=== PATIENT | female | born 1945 | race Caucasian/White ===

== ENCOUNTER → 2018-04-28 10:15 | Outpatient (CLI) | payer MEDICARE, SELFPAY ==
--- NOTE | 2018-04-28 10:22 | BI_ITS ---
MAMMOGRAPHY - BILATERAL SCREENING REASON FOR EXAM: Female, 72 years old. Routine annual screening examination. PERTINENT HISTORY: Mother with breast cancer. Remote right stereotactic breast biopsy. TECHNIQUE: Digital bilateral breast vivien (3D mammographic acquisition) in the CC and MLO projections. 2-D mediolateral oblique (MLO) and craniocaudad (CC) views of both breasts were obtained. CAD: Full Field Digital Mammography with Computer Added Detection was performed. COMPARISON: Comparison is made with prior study dated September 19, 2017 and February 28, 2016. FINDINGS: Breast Composition: The breasts are almost entirely fatty. There are no dominant masses or suspicious calcifications. Stable scattered calcifications. No focal cluster is seen. A tissue marker is once again seen in the slightly upper lateral portion of the right breast. No other significant abnormalities are identified. There has been no significant change since the prior study. BI/SCREENING MAMM (CAD), BILAT IMPRESSION: Stable bilateral screening mammogram. Yearly follow-up mammogram recommended. (A) ASSESSMENT CATEGORY: BIRADS Category 2: Benign. A letter regarding these results will be sent to the patient by the facility within 30 days. Approximately 10% of breast cancers are not detected by mammography. A normal mammogram should not delay biopsy of a clinically suspicious abnormality. [id number] Electronically Signed: Vince Tello MD at 12:35 EST , Service support ,
== END ==
PROVIDERS: Family Provider Internal Medicine; PCP Internal Medicine; Referring Provider Nurse Practitioner Primary Care; Visit Provider Nurse Practitioner Primary Care
DX: Z12.31 Encounter for screening mammogram for malignant neoplasm of breast (principal); Z80.3 Family history of malignant neoplasm of breast
CPT/HCPCS: 77063; 77067

== ENCOUNTER 2018-08-16 11:02 | Emergency (ER) | payer MEDICARE, SELFPAY ==
[2018-08-16 11:03] VITALS: BP 156/79; PULSE 91; RESP 18; TEMP 36.6; O2SAT 98; BMI 39.6
[2018-08-16 11:26] VITALS: BP 151/123; PULSE 84; RESP 21; O2SAT 94
--- NOTE | 2018-08-16 11:36 | VDUE_ITS ---
Reason For Study: Pain Left Proximal Left jugular vein is spontaneous, widely patent, phasic, with no intraluminal echogenicity noted. Left subclavian vein is spontaneous, widely patent, phasic, with no intraluminal echogenicity noted. Left Arm Left axillary vein is spontaneous, patent, phasic, competent, compressible and demonstrates augmentation. Left brachial vein is compressible. Left cephalic vein is compressible. Left basilic vein is compressible. Left Lower Arm Left radial vein is compressible. Left ulnar vein is compressible. Patient Safety Prelim to Stephen. Interpretation Summary Deep veins of the left upper extremity are patent and compressible segmentally. There is no evidence of deep vein thrombosis. The superficial veins of the left upper extremity, the basilic and cephalic veins, are patent and compressible. There is no evidence of left upper extremity superficial thrombophlebitis involving the veins imaged. Ordering Physician: Audra Mitchell Referring Physician: Yasmeen Heller Performed By: Adrianna Thompson RVT ?
--- NOTE | 2018-08-16 11:37 | EKG12_ITS ---
Test Reason : ARM PAIN Blood Pressure : / mmHG Vent. Rate : 086 BPM Atrial Rate : 086 BPM P-R Int : 172 ms QRS Dur : 058 ms QT Int : 362 ms P-R-T Axes : 042 -08 029 degrees QTc Int : 433 ms Normal sinus rhythm Low voltage QRS Borderline ECG Confirmed by DIONI BALBUENA ([id number]), communications editor KIRAN COLEMAN ([id number]) on 08/18/2018 11:45:14 AM Referred By: RADHA Confirmed By:VAL BALBUENA
--- NOTE | 2018-08-16 11:40 | ED.DCSUM_ITS ---
- ER Visit Summary Date of Service: 08/16/18 Chief Complaint: Left arm pain History of Present Illness: The patient is a 72 F who presents for 5 days of left arm pain. Patient was seen by her primary care doctor today who sent her in for further evaluation. Patient states she had blood drawn 5 days ago. Since then she has been having left upper arm pain that is intermittent. She was concerned when she had 2 episodes of left hand numbness. Both time she was sitting on her couch watching TV and the numbness resolved after she changed positions. Patient denies any fever, shortness of breath, chest pain, abdominal pain, back pain, nausea or vomiting, injury to the left upper extremity or any other complaints other than the arm. The pain is focused along the anterior upper arm without any pain in the shoulder or shoulder blade. She has no cardiac history. Physical Examination: Vital signs: afebrile, hemodynamically stable, no hypoxia on room air General: well nourished, well developed, in no distress Skin: warm, dry, no rash, no pallor HEENT: normocephalic and atraumatic; PERRL, EOMI, moist mucous membranes Cardiovascular: regular rate and rhythm without murmurs, no peripheral edema, 2+ pulses all distal extremities Respiratory: No increased work of breathing, lungs are clear to auscultation bilaterally, no rales, rhonchi or wheezing Abdominal: Abdomen is soft, nontender with normoactive bowel sounds, no guarding or rebound, no masses MSK: Moves all extremities, no deformities, normal strength. Patient has a small contusion on the lateral antecubital fossa consistent with a prior blood draw. Tenderness along the anterior superior upper arm. Full active range of motion of the shoulder without pain. Radial pulses 2+ and symmetric. Distal sensation and motor function intact. Neuro: Awake and alert, oriented ?4. No facial droop, sensation and motor f unction intact and symmetric Test Results: Abnormal Lab Results 08/16/18 08/16/18 08/16/18 11:41 11:41 11:41 WBC 8.4 RBC 4.60 Hgb 13.3 Hct 41.1 MCV 89.3 MCH 28.9 MCHC 32.4 RDW 13.0 RDW Differential 42.1 Plt Count 427 MPV 9.8 Immature Gran % (Auto) 0.500 Neut % (Auto) 67.9 Lymph % (Auto) 23.6 [place] % (Auto) 6.9 Eos % (Auto) 0.7 Baso % (Auto) 0.4 Absolute Neuts (auto) 5.7 Absolute Lymphs (auto) 1.97 Total Counted Not Reportable PT Cancelled INR Cancelled APTT Cancelled Sodium 137 Potassium 4.7 Chloride 104 Carbon Dioxide 27.0 Anion Gap 6 BUN 9 Creatinine 0.71 Estim Creat Clear Calc 40.81 Est GFR (MDRD) Af Amer 105 Est GFR (MDRD) Non-Af 87 BUN/Creatinine Ratio 12.7 Glucose 117 H Calcium 9.4 Troponin I < 0.015 08/16/18 08/16/18 12:00 12:55 WBC RBC Hgb Hct MCV MCH MCHC RDW RDW Differential Plt Count MPV Immature Gran % (Auto) Neut % (Auto) Lymph % (Auto) [place] % (Auto) Eos % (Auto) Baso % (Auto) Absolute Neuts (auto) Absolute Lymphs (auto) Total Counted PT Cancelled 13.3 INR Cancelled 1.0 APTT Cancelled 25.2 Sodium Potassium Chloride Carbon Dioxide Anion Gap BUN Creatinine Estim Creat Clear Calc Est GFR (MDRD) Af Amer Est GFR (MDRD) Non-Af BUN/Creatinine Ratio Glucose Calcium Troponin I Clinical Impression(s) from Imaging Studies Chest X-Ray 08/16/18 12:00 IMPRESSION: Borderline cardiomegaly with low volume inspiration. No acute finding. Electronically Signed: Fritz Grant MD at 12:12 EDT , Service support , Medications Given Discontinued Medications Aspirin (Aspirin, Baby) 324 mg PO X1 STA Stop: 08/16/18 11:38 Last Admin: 08/16/18 11:45 Dose: 324 mg Emergency Department Course and Treatment: Patient's physical exam is most consistent with a soft tissue or musculoskeletal source of patient's left arm pain rather than a cardiac etiology. The pain is reproducible on exam. Patient had an ultrasound performed of the left upper extremity to look for any possible thrombophlebitis or DVT that formed after the blood draw. Ultrasound was negative. EKG showed sinus rhythm without ischemia or ectopy. Troponin negative. Labs otherwise unremarkable. On reevaluation, patient was feeling fine. Her episodes of hand numbness are while she is sitting on the couch watching television, and improves with repositioning of her arm, we discussed that this is likely due to a peripheral nerve compression due to her arm position. If it continues she is to note how she is positioned and see if it continues to improve if she repositions her arm. In my professional opinion patient's arm pain is strictly arm pain and is not referred pain from a cardiovascular radiology. Patient discharged home with return precautions and is to follow-up with her primary care doctor if symptoms persist. Treatment Plan: [] Disposition: [] Impression: Left arm pain status post a blood draw, intermittent peripheral nerve paresthesia of the left upper extremity This note was generated with [employer] dictation software. It may contain incorrect words, spelling, and punctuation that were not noted in review of the chart prior to signing ED Disposition - Plan for ED Patient: Disposition: Home or Assisted Living Instructions: ED Contusion Upper Ext, ED Paraesthesias Referrals: Yasmeen Heller MD [Primary Care Provider] - 3-5 Days if not improving Additional Instructions: You do not have a blood clot in your left arm. Your pain in the left arm is likely related to the blood draw you had 5 days ago. If you have any further numbness in your left hand, please make note of the position your arm is in at the time and change the position to see if the numbness resolves. You can get numbness in the hand if you are placing pressure on the nerves in the upper arm. Use [id number] pain medication as needed for the arm pain. If you have any worsening of your condition or any new concerning symptoms, please return immediately to the emergency department for another evaluation.
[2018-08-16] MEDS: Aspirin 81 MG TAB.CHEW 324 MG PO (11:45)
[2018-08-16 11:50] LABS: Absolute Lymphocyte Count 1.97 X10^3/ul (0.83-4.51); Absolute Neutrophil Count 5.7 X10^3/uL (2.0-7.7); Basophil# 0.03 X10^3/uL; Basophil% 0.4 % (0-1); Eosinophil# 0.06 X10^3/uL; Eosinophils% 0.7 % (0-5); Hematocrit 41.1 % (37-47); Hemoglobin 13.3 g/dl (12.0-15.0); Lymphocyte # 1.97 X10^3/ul (4.0); Lymphocyte % 23.6 % (19-41); Mean Corp Hgb Conc 32.4 g/gl (32-36); Mean Corpuscular Hgb 28.9 pg (27.0-32.0); Mean Corpuscular Volume 89.3 fL (81-99); Mean Platelet Vol. 9.8 fl (6.2-12.0); Monocyte# 0.58 X10^3/uL; Monocyte% 6.9 % (0-10); Neutrophil # 5.67 X10^3/uL (2.7-7.7); Neutrophil % 67.9 % (47-70); POSITIVE COUNT NO; POSITIVE DIFFERENTIAL NO; POSITIVE MORPHOLOGY NO; Platelet Count 427 K/mm3 (150-450); RBC Distribution Width SD 42.1 fl (35.1-43.9); White Blood Count 8.4 K/mm3 (4.4-11.0)
--- NOTE | 2018-08-16 11:52 | NURSING ---
BLUE TOP HEMOIZLED
--- NOTE | 2018-08-16 12:00 | RAD_ITS ---
STUDY: X-RAY CHEST REASON FOR EXAM: Female, 72 years old. Left arm pain. TECHNIQUE: Single frontal view of the chest. COMPARISON: None. FINDINGS: There is low volume inspiration. There is no demonstrated pleural abnormality. There is borderline cardiomegaly. Normal mediastinum and clay. Normal visualized pulmonary arteries. There is atherosclerotic calcification of the aortic arch with tortuosity. Normal visualized thoracic spine. Normal visualized ribs, clavicles, and shoulders. There is no demonstrated abnormality of the visualized soft tissue structures of the upper abdomen. RAD/Chest 1 View (Portable) IMPRESSION: Borderline cardiomegaly with low volume inspiration. No acute finding. Electronically Signed: Fritz Grant MD at 12:12 EDT , Service support ,
[2018-08-16 12:12] LABS: Anion Gap 6 (5-15); BUN 9 mg/dL (7-18); BUN/Creat Ratio 12.7 RATIO (10-20); Calcium,Total 9.4 mg/dL (8.5-10.1); Chloride 104 mmol/L (98-107); Creatinine, Serum 0.71 mg/dL (0.55-1.02); EST Glomerular Filtration Rate 87 mL/min (>60); Est Glom Filt Rate - Afr Amer 105 mL/min (>60); Estimated Creatinine Clearance 40.81 ml/min; Glucose 117 mg/dL (74-106); Potassium 4.7 mmol/L (3.5-5.1); Sodium Level 137 mmol/L (136-145)
[2018-08-16 13:19] VITALS: BP 124/56; PULSE 73; RESP 16; O2SAT 94
[2018-08-16 13:19] LABS: Prothrombin Time (Protime)PT. 13.3 SECONDS (11.7-14.9)
[2018-08-16 13:20] LABS: Partial Thromboplast Time 25.2 Seconds (24.1-36.2)
[2018-08-16 14:54] VITALS: BP 122/64; PULSE 78; RESP 16; O2SAT 100
== END 2018-08-16 15:13 | disposition home or self-care (01) ==
PROVIDERS: Emergency Provider Emergency Medicine; Family Provider Internal Medicine; PCP Internal Medicine
DX: M79.622 Pain in left upper arm (principal); R20.2 Paresthesia of skin; E11.9 Type 2 diabetes mellitus without complications; Z79.84 Long term (current) use of oral hypoglycemic drugs
CPT/HCPCS: 71045; 80048; 84484; 85025; 85610; 85730; 93005; 93971; 99284; A4216

== ENCOUNTER 2019-01-03 12:30 | Outpatient (RCR) | payer MEDICARE, SELFPAY ==
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
--- NOTE | 2019-01-03 13:04 | HP.PTDCSUM_ITS ---
HP - PT D/C Summary It has been my pleasure to treat RAMÓN CANADA under orders from Yasmeen Heller MD, for the diagnosis of ACUTE LEFT SIDED LOW BACK PAIN WITH SCIATICA. for a total of 9 visit(s). Discharge Date: Please see the following information for a summary of their discharge status. - Subjective Subjective: PATIENT REPORTS SHE WOKE UP WITH NO PAIN TODAY AND SHE IS REALLY HAPPY ABOUT THAT. PATIENT REPORTS SHE IS 150% BETTER AND IT IS EXCITING. - Pain LOW BACK Pain Intensity (Out of 10): 0 LLE Pain Intensity (Out of 10): 2 - Overall Improvement % Improvement: 150 - Objective Objective/Function: ALL GOALS MET. PATIENT IS APPROPRIATE FOR D/C WITH F/U W/PHYSICIAN NEEDED. UPON EXAM TODAY: INDEP GAIT INTO PT WITH NO GROSS D EVIATIONS NOTED. INDEP SIT TO STAND WITHOUT UE ASSIST. Motor deficit: KYLE LE STRENGTH 5/5 WITH MMT'ING. Sensory deficit: NO. ROM deficit: NO. Reflexes: NT. Dural Signs: NEGATIVE KYLE LE'S. Lumbar mvmt loss: flex - MIN - NE. ext - MOD - NE. R SG - MOD - MILD LBP. L SG - MIN - NE. Core strength: POOR - Goals Goal 1:: DECREASE C/O LOW BACK AND KYLE LE SX'S. Goal Progress: Goal Met Goal 2:: IMPROVE PERSONAL CARE, LIFTING, WALKING, SITTING, STANDING, SLEEP, SOCIAL LIFE, TRAVEL AND HOMEMAKING [employer] Goal Progress: Goal Met Goal 3:: INSTRUCT IN PROPHYLAXIS Goal Progress: Goal Met - Plan Plan: D/C TO INDEP HEP. PATIENT AGREEABLE. - D/C Information If there are questions or concerns regarding this patient's physical therapy, please feel free to call me at [phone]. Thank you for the referral of this patient. Sincerely, Keisha Frazier, PT, Cert MDT
== END 2019-01-03 19:00 | disposition home or self-care (01) ==
LOC: PT 12:30
PROVIDERS: Family Provider Internal Medicine; PCP Internal Medicine; Referring Provider Internal Medicine; Visit Provider Internal Medicine
DX: M54.40 Lumbago with sciatica, unspecified side (principal)
CPT/HCPCS: 97035; 97110; 97162; 97530

== ENCOUNTER 2019-03-15 06:30 | Inpatient (IN) | payer MEDICARE, SELFPAY ==
[2019-03-15] VITALS (11 sets, daily range): BP systolic 99–120; BP diastolic 52–102; PULSE 74–97; RESP 15–18; TEMP 36.7–36.9; O2SAT 94–98; BMI 88.8; BMI 40.3
--- NOTE | 2019-03-15 06:42 | EKG12_ITS ---
Test Reason : FALL Blood Pressure : / mmHG Vent. Rate : 092 BPM Atrial Rate : 092 BPM P-R Int : 174 ms QRS Dur : 062 ms QT Int : 350 ms P-R-T Axes : 043 -12 018 degrees QTc Int : 432 ms Normal sinus rhythm Low voltage QRS Septal infarct , age undetermined Inferior infarct , age undetermined Abnormal ECG Confirmed by ESHA MURRIETA, DIONI ([id number]), editorial assistant SIERRA FRANCO ([id number]) on 03/16/2019 10:34:55 AM Referred By: SANTA/AMA Confirmed By:VAL BALBUENA MD
--- NOTE | 2019-03-15 06:42 | CT_ITS ---
STUDY: CT BRAIN WITHOUT CONTRAST REASON FOR EXAM: Female, 73 years old. FALL THIS AM -- NO LOC RADIATION DOSAGE (If Supplied By Facility): CTDIvol = ( 44.99 ) mGy, DLP = ( 745.49 ) mGycm TECHNIQUE: Transaxial CT imaging of the brain was performed without administration of intravenous contrast material. Individualized dose optimization techniques were used for this CT. COMPARISON: No relevant priors. FINDINGS: Normal soft tissue structures. Normal calvarium. Normal size ventricles and extra-axial spaces for the patient''s age. There are areas of decreased attenuation within the white matter tracts of the supratentorial brain, consistent with microvascular disease changes. Age-related changes of the basal ganglia. Normal brainstem. 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 There is no intracranial hemorrhage. There are no findings of an acute ischemic infarction. Normal visualized paranasal sinuses. CT/Brain/Head without Contrast IMPRESSION: No fracture or intracranial hemorrhage. Electronically Signed: Rehan Reynaga MD at 7:31 EST Tel , Service support ,
--- NOTE | 2019-03-15 06:43 | RAD_ITS ---
STUDY: X-RAY CHEST REASON FOR EXAM: Female, 73 years old. FALL, S/P SYNCOPE. RT SIDE NECK/SHOULDER PAIN TECHNIQUE: Single AP portable view of the chest. COMPARISON: 08/16/2018 FINDINGS: Possible calcified granuloma versus nodule in the right upper lobe. The lungs are clear and expanded. There is no demonstrated pleural abnormality. There is mild cardiac enlargement. Normal mediastinum and clay. Normal visualized pulmonary arteries. Normal visualized aortic arch and descending thoracic aorta. Normal visualized thoracic spine. Normal visualized ribs, clavicles, and shoulders. There is no demonstrated abnormality of the visualized soft tissue structures of the upper abdomen. RAD/Chest PA and Lateral IMPRESSION: Clear lungs. Cardiomegaly. Questionable right apex pulmonary nodule versus partially calcified granuloma. Nonemergent chest CT recommended to further evaluate. Electronically Signed: Phill Thayer DO at 7:54 EST Tel , Service support ,
--- NOTE | 2019-03-15 06:44 | CT_ITS ---
STUDY: CT CERVICAL SPINE WITHOUT CONTRAST REASON FOR EXAM: Female, 73 years old. FALL THIS AM RADIATION DOSAGE (If Supplied By Facility): CTDIvol = ( 28 ) mGy, DLP = ( 491.05 ) mGycm TECHNIQUE: High resolution transaxial imaging was performed without contrast material. Sagittal and coronal images were reconstructed. Individualized dose optimization techniques were used for this CT. COMPARISON: None FINDINGS: Craniocervical junction is intact. Degenerative changes are present involving the atlantodental articulation. Normal odontoid process. Alignment is within normal limits. Multilevel degenerative disease is present. No acute fractures or dislocations are seen. Carotid calcifications. 2 x 1.5 cm left thyroid nodule. Consider ultrasound follow-up. CT/Spine Cervical without Contras IMPRESSION: No acute osseous injury is evident. 2 x 1.5 cm left thyroid nodule. Consider ultrasound follow-up. Comment: MRI is more sensitive than CT in detecting cord injury, ligament injury, and epidural hematoma. If there is continued clinical concern for any of these entities, MRI correlation should be considered if possible. Electronically Signed: Rehan Reynaga MD at 7:33 EST Tel , Service support ,
[2019-03-15] MEDS: 0.9% Normal Saline 1,000 ML 1000 ML IV (06:59)
[2019-03-15] MEDS: Ketorolac 15 MG/ML Vial IV (06:59)
[2019-03-15] MEDS: Ondansetron 4 MG/2 ML Vial IV (06:59)
[2019-03-15 07:08] LABS: Absolute Lymphocyte Count 1.19 X10^3/uL (0.83-4.51); Absolute Neutrophil Count 15.2 X10^3/uL (2.0-7.7); Basophil# 0.02 X10^3/uL; Basophil% 0.1 % (0-1); Eosinophil# 0.02 X10^3/uL; Eosinophils% 0.1 % (0-5); Hematocrit 42.8 % (37-47); Hemoglobin 13.7 g/dL (12.0-15.0); Lymphocyte # 1.19 X10^3/ul (4.0); Lymphocyte % 6.9 % (19-41); Mean Corpuscular Hgb 28.5 pg (27.0-32.0); Mean Platelet Vol. 9.6 fl (6.2-12.0); Monocyte# 0.81 X10^3/uL; Monocyte% 4.7 % (0-10); NRBC Flagged by Analyzer 0 % (0-5); Neutrophil # 15.22 X10^3/uL (2.7-7.7); Neutrophil % 87.8 % (47-70); Platelet Count 473 K/mm3 (150-450); RBC Distribution Width CV 13.2 % (11.6-14.6); RBC Distribution Width SD 43.5 fl (35.1-43.9); Red Blood Count 4.81 M/mm3 (4.2-5.4); White Blood Count 17.3 K/mm3 (4.4-11.0)
--- NOTE | 2019-03-15 07:22 | ED.DCSUM_ITS ---
History of Present Illness <Patricia Frances - Last Filed: 03/15/19 09:14> Narrative: Patient presenting for evaluation secondary to diarrhea and syncope. Patient reports that over the course of the last 3 days she has been dealing with a diarrheal illness. She reports that she has been having minimal volume loose stools over the course of these couple days that have been occurring approximately every 2 hours. They have been associated with abdominal cramping and nausea but no vomiting. She denies any fevers associated with this. She denies any recent antibiotic exposures or hospital admissions. Patient does report that she was on a [place] cruise over [place], but is been home for over a week that has not had any symptoms until the last 3 days. Tonight the patient had recently gotten up and had a bowel movement was in the bathroom. She was standing at the sink and started to have some abdominal discomfort and started to feel lightheaded and diaphoretic. Patient suffered a syncopal episode where she fell striking the wall hard enough that she put a hole in the drywall. She has a mild amount of pain in her right side of her neck and right shoulder. She denies any preceding chest pain or palpitations. She denies any shortness of breath. Patient does have a history of diabetes and hypertension. Review of systems otherwise negative. <EliseowillemLuan - Last Filed: 03/25/19 16:10> Chief Complaint: Fall Past Medical History <Patricia Frances - Last Filed: 03/15/19 09:14> Past Medical History: - - Diabetes, hypertension Smoking Status: Never smoker <DanielletingLuan - Last Filed: 03/25/19 16:10> - Allergies and Home Meds Allergies/Adverse Reactions: Allergies Penicillins Allergy (Verified 08/16/18 11:06) Rash propoxyphene [From Darvon] Adverse Reaction (Verified 08/16/18 11:06) Nausea/Vom/Diarrhea Review of Systems General: Reports: Malaise Eyes: Denies: Visual changes - bilaterally, Diplopia ENT: Denies: Rhinorrhea, Sore throat Cardiovascular: Reports: - - Syncope Respiratory: Denies: Dyspnea, Cough, Dyspnea on exertion Gastrointestinal: Reports: Abdominal pain, Nausea, Diarrhea. Denies: Vomiting Genitourinary: Denies: Dysuria, Hematuria, Frequency Musculoskeletal: Denies: Back pain, Extremity Pain Skin: Denies: Rash, Wounds Neurological: Denies: Headache, Weakness, Numbness Psych: Denies: Depression Endocrine: Denies: Polyuria Hematologic: Denies: Easy bruising Allergy: Denies: Swelling of the mouth <JeLuan - Last Filed: 03/25/19 16:10> Physical Exam Vital Signs/Narrative: Vital Signs Temp Pulse Resp BP Pulse Ox 03/15/19 06:53 97 15 03/15/19 06:36 96 03/15/19 06:31 98.4 F 91 16 110/102 H 98 <Patricia Frances - Last Filed: 03/15/19 09:14> Vital Signs/Narrative: Vital Signs Temp Pulse Resp BP Pulse Ox 03/15/19 06:53 97 15 03/15/19 06:36 96 03/15/19 06:31 98.4 F 91 16 110/102 H 98 Inital Vital Signs reviewed: Yes General: Well nourished, Well developed, No Acute Distress Head: Normocephalic, Atraumatic, - - No outward signs of trauma Eyes: Perrl, EOMI ENT: Moist mucous membranes, No rhinorrhea Neck: Supple, - - Diffuse neck tenderness with some predominance to the right with no evidence of step-offs Cardiovascular: Regular rate, Regular rhythm, No murmurs, - - 2+ radial pulses bilaterally symmetric Respiratory: No distress, CTA bilaterally, Chest nontender Abdomen: Soft, Nontender, Nondistended, Normal bowel sounds Back: Nontender, Normal Inspection Extremities: Nontender, No edema Skin: Normal color, No rash Neurological: Alert, Oriented x3, Cranial nerves II-XII grossly intact, Normal Strength, Normal Sensation Psychological: Normal affect, Normal Mood <Luan Wooten - Last Filed: 03/25/19 16:10> Diagnostic/Tx/Re-eval Clinical Impression(s) from Imaging Studies Brain CT 03/15/19 06:42 IMPRESSION: No fracture or intracranial hemorrhage. Electronically Signed: Rehan Reynaga MD at 7:31 EST Tel , Service support , Chest X-Ray 03/15/19 06:43 IMPRESSION: Clear lungs. Cardiomegaly. Questionable right apex pulmonary nodule versus partially calcified granuloma. Nonemergent chest CT recommended to further evaluate. Electronically Signed: Phill Thayer DO at 7:54 EST Tel , Service support , Cervical Spine CT 03/15/19 06:44 IMPRESSION: No acute osseous injury is evident. 2 x 1.5 cm left thyroid nodule. Consider ultrasound follow-up. Comment: MRI is more sensitive than CT in detecting cord injury, ligament injury, and epidural hematoma. If there is continued clinical concern for any of these entities, MRI correlation should be considered if possible. Electronically Signed: Rehan Reynaga MD at 7:33 EST Tel , Service support , Abdomen/Pelvis CT 03/15/19 07:52 IMPRESSION: No acute findings. Remaining chronic findings as above Electronically Signed: Phill Thayer DO at 8:46 EST Tel , Service support , Laboratory Data 03/15/19 03/15/19 03/15/19 06:55 06:55 08:39 WBC 17.3 H RBC 4.81 Hgb 13.7 Hct 42.8 MCV 89.0 MCH 28.5 MCHC 32.0 RDW Std Deviation 43.5 RDW Coeff of Landy 13.2 Plt Count 473 H MPV 9.6 Immature Gran % (Auto) 0.400 Neut % (Auto) 87.8 H Lymph % (Auto) 6.9 L [place] % (Auto) 4.7 Eos % (Auto) 0.1 Baso % (Auto) 0.1 Absolute Neuts (auto) 15.2 H Absolute Lymphs (auto) 1.19 Nucleated RBC % 0 Sodium 138 Potassium 4.3 Chloride 105 Carbon Dioxide 23.0 Anion Gap 10 BUN 12 Creatinine 0.91 Estim Creat Clear Calc 44.20 Est GFR (MDRD) Af Amer 78 Est GFR (MDRD) Non-Af 65 BUN/Creatinine Ratio 13.2 Glucose 242 H Calcium 9.4 Total Bilirubin 0.50 AST 20 ALT 22 Alkaline Phosphatase 70 Troponin I < 0.015 Total Protein 6.9 Albumin 3.4 Globulin 3.5 Albumin/Globulin Ratio 1.0 Urine Color Yellow Urine Clarity Sl. Cloudy Urine pH 6.0 Ur Specific [place] 1.010 Urine Protein 15 H Urine Glucose (UA) Normal Urine Ketones Negative Urine Occult Blood Negative Urine Nitrite Negative Urine Bilirubin Negative Urine Urobilinogen Normal Ur Leukocyte Esterase 500 H Urine RBC 0 SEEN Urine WBC 25-50 SEEN Ur Squamous Epith Cells 5-10 SEEN Urine Bacteria 1+ Urine Mucus 0 SEEN - Rhythm Strip Rhythm Strip: Sinus Rhythm Rate: 92 Ectopy: None - EKG Initial EKG Interpretation: Sinus Rhythm, No Acute Injury Pattern - Medical Decision Making Patient signed out to me by Dr. Khan. CT head and neck are normal. CMP is normal as well as troponin. EKG is relatively normal with no ischemic changes. Patient does have a leukocytosis of 17.3. On my reevaluation patient complained of itching of her abdomen and does have an urticarial rash that seems to be centered around the band of her pants. She states that she was having some itching of her hands last night as well. Abdomen is nontender. In light of the leukocytosis I will obtain a CT of the abdomen and pelvis to rule out diverticulitis or other acute intra-abdominal infection that could be causing her diarrhea as well as her leukocytosis. Patient is ordered Benadryl for her rash. Lactate and blood cultures added on. Urinalysis is concerning for infection. Patient does meet marker for sepsis. She started on IV Rocephin. Patient does have improvement of her rash and itching with Benadryl. She is given Tylenol for her aches secondary to the fall. She will be admitted for further evaluation. She is agreeable with this plan. Discussed with Dr. Helton. Patient admitted in stable condition to [facility]. <Patricia Frances - Last Filed: 03/15/19 09:14> - EKG Initial EKG Interpretation: - - Sinus rhythm 92 with some low voltage. Isoelectric ST segments normal T waves. Septal and inferior Q waves are noted. No evidence of acute ischemia or arrhythmia. - Medical Decision Making Patient presented secondary to a syncopal episode in the setting of a diarrheal illness. EKG was obtained which shows no signs of ischemia or arrhythmia. Work-up was obtained including lab work and CT imaging of the head and neck. This is pending at this time will be signed out to the oncoming provider who will follow up on the results and disposition the patient. <Luan Wooten - Last Filed: 03/25/19 16:10> ED Disposition <Patricia Frances - Last Filed: 03/15/19 09:14> <Luan Wooten - Last Filed: 03/25/19 16:10> - Plan for ED Patient: Disposition: Acute Care Hospital [facility] Diagnosis: Syncope, Diarrhea, UTI (urinary tract infection)
[2019-03-15 07:32] LABS: AST(SGOT) 20 U/L (15-37); Alanine Aminotransfer ALT/SGPT 22 U/L (13-56); Albumin, Serum 3.4 g/dL (3.2-5.0); Alkaline Phosphatase 70 U/L (45-117); Anion Gap 10 (5-15); BUN 12 mg/dL (7-18); BUN/Creat Ratio 13.2 RATIO (10-20); Calcium,Total 9.4 mg/dL (8.5-10.1); Chloride 105 mmol/L (98-107); Creatinine, Serum 0.91 mg/dL (0.55-1.02); EST Glomerular Filtration Rate 65 mL/min (>60); Est Glom Filt Rate - Afr Amer 78 mL/min (>60); Globulin 3.5 g/dL (2.2-4.2); Glucose 242 mg/dL (74-106); Potassium 4.3 mmol/L (3.5-5.1); Protein, Total 6.9 g/dL (6.4-8.2); Sodium Level 138 mmol/L (136-145)
--- NOTE | 2019-03-15 07:52 | CT_ITS ---
STUDY: CT ABDOMEN AND PELVIS WITHOUT CONTRAST REASON FOR EXAM: Female, 73 years old. S/P FALL ABD PAIN RADIATION DOSAGE (If Supplied By Facility): CTDIvol = ( 17.07 ) mGy, DLP = ( 1216.08 ) mGycm TECHNIQUE: Transaxial images were obtained from the dome of the diaphragm to the symphysis pubis without oral contrast, and without intravenous contrast. Sagittal and coronal images were reconstructed. Individualized dose optimization techniques were used for this CT. COMPARISON: None. FINDINGS: The visualized lung bases are unremarkable. The visualized portions of the heart are within normal limits. Normal liver. There are surgical clips in the gallbladder fossa consistent with a prior cholecystectomy. Normal spleen. There is diffuse atrophy of the pancreas. Normal bilateral adrenal glands. There is mild cortical atrophy of the right kidney, consistent with chronic medical renal disease. There is mild cortical atrophy of the left kidney, consistent with chronic medical renal disease. There is a small hiatal hernia. Normal small intestine. There are multiple colonic diverticula consistent with diverticulosis. There is non-visualization of the appendix. Normal abdominal aorta. Normal inferior vena cava. Normal retroperitoneum. Normal urinary bladder. There is atrophy of the uterus. Normal abdominal wall. There are diffuse degenerative changes of the visualized lumbar spine. CT/Abdomen/Pelvis W IV Cont ONLY IMPRESSION: No acute findings. Remaining chronic findings as above Electronically Signed: Phill Thayer DO at 8:46 EST Tel , Service support ,
[2019-03-15] MEDS: DiphenhydrAMINE 50 MG/ML Syringe 25 MG IV ×2 (07:59→13:26)
[2019-03-15 08:42] LABS: Mucous, Urine 0 SEEN /hpf (<or=2+); Red Blood Cells-Urine 0 SEEN /hpf (0-5)
[2019-03-15 08:45] LABS: Color, Urine Yellow (Yellow); Glucose, Dipstick Normal (Normal); Ketone-Dipstick Negative (Negative); Leukocyte Esterase-Dipstick 500 /ul (Negative); Nitrite-Dipstick Negative (Negative); Occult Blood-Urine Negative /ul (Negative); Protein-Dipstick 15 mg/dl (Negative); Urine Bilirubin Dipstick Negative (Negative); Urine Clarity Sl. Cloudy (Clear); Urine Urobilinogen Normal (Normal)
[2019-03-15 08:51] LABS: Bacteria 1+ /hpf (None Seen); Squamous Epithelial Cells - UA 5-10 SEEN /hpf (5-10); White Blood Cells 25-50 SEEN /hpf (0-5)
[2019-03-15] MEDS: Acetaminophen 325 MG Tablet 650 MG PO (09:47)
[2019-03-15] MEDS: Ceftriaxone 1 GM/50 ML BAG IV (09:47)
[2019-03-15 09:48] LABS: Lactic Acid 4.2 mmol/L (0.4-1.9)
--- NOTE | 2019-03-15 09:48 | ED.RN ---
lactic 4.[address] lab. dr alvarez aware
[2019-03-15] MEDS: 0.9% Normal Saline 1,000 ML 999 ML IV ×2 (10:30→12:58)
--- NOTE | 2019-03-15 10:38 | PCM.HP.STD ---
Problem List (1) Acute cystitis Status: Suspected (2) Lactic acidosis Status: Acute (3) Acute diarrheal illness Status: Acute (4) Hyperlipidemia Status: Chronic (5) Hypertension Status: Chronic (6) Type 2 diabetes mellitus Status: Chronic (7) Syncope Status: Acute History of Present Illness Date of Admission: 03/15/19 Chief Complaint: Syncope. The patient is a 73 year old F patient with past medical history as mentioned above presented to the emergency room because of syncope and diarrhea. Her illness started 3 days ago with diarrhea, she has been going to the bathroom every couple of hours for diarrhea, watery stool, small amount without blood associated with abdominal cramps and gaseous distention as well as nausea and vomiting and without aggravating or relieving factors. Patient mentioned that she was on a cruise to the [facility] late February. This morning, she became dizzy and lightheaded upon standing and she passed out. She is not sure how long she passed out and when her arrived to see her, she was awake according to him. She denied any chest pain or shortness of breath. She denied fever or chills. Also, patient mentioned that she had rash on the lower part of her abdomen this morning along with itching in both hands. She received Benadryl in the ED and at this time, no more lower abdominal rash and no itching. In the emergency department, she was afebrile, heart rate stable, blood pressure stable, pulse ox was normal on room air. Routine blood work was remarkable for significant leukocytosis, otherwise normal. LFT was normal. EKG revealed normal sinus rhythm, low voltage QRS, no acute acute changes. Troponin was negative. Later, lactic acid was done by the ED physician and it came back high at 4.2. Urinalysis revealed cloudy urine, negative for nitrite, there was 500 leukocyte esterase, 25-50 WBCs and +[address] scan brain showed no acute findings. Chest x-ray showed no acute infiltrate or consolidation. CT scan cervical spine showed no acute fractures or dislocations. CT scan abdomen pelvis showed no acute intra-abdominal pathology. She is being admitted for syncope likely due to vasovagal syncope secondary to volume depletion attributed to acute diarrheal illness which is probably viral in etiology and complicated by lactic acidosis due to tissue hypoperfusion. At this time, I doubt septic shock as patient is looking very stable, afebrile, no tachycardia and blood pressure stable. Past Medical History Past Medical History (Chronic Problems): Chronic Problems Hyperlipidemia (Chronic) Hypertension (Chronic) Type 2 diabetes mellitus (Chronic) Allergies Penicillins Allergy (Verified 08/16/18 11:06) Rash propoxyphene [From Darvon] Adverse Reaction (Verified 08/16/18 11:06) Nausea/Vom/Diarrhea Home Medications: Ambulatory Orders Medication Instructions Recorded Pravastatin Sodium 80 mg PO QHS 08/16/18 Sitagliptin Phosphate [Januvia] 50 mg PO DAILY 08/16/18 metFORMIN (XR) [Glucophage Xr] 500 mg PO BID 08/16/18 Losartan Potassium [Cozaar] 50 mg PO DAILY 03/15/19 Surgical History: cholecystectomy, herniorrhaphy Psychiatric History: No pertinent psych hx [employer] History: No pertinent [employer] history Lives: Spouse/ Significant Other Smoking Status: Never smoker Alcohol: None Drugs: None - *Family History Maternal History Items: No pertinent history Paternal History Items: No pertinent history Review of Systems Constitutional: Reports: Anorexia, Weakness. Denies: Chills, Fever Eyes: Denies: Blurred vision, Double vision, Drainage, Redness HEENT: Denies: Difficulty Hearing, Ear Pain, Eye Pain, Nasal Congestion, Sore Throat Cardiovascular: Reports: Light Headedness. Denies: Chest Pain, Chest Pressure, Edema, Heaviness, Palpitations, Syncope Respiratory: Denies: Cough, Hemoptysis, Pleuritic Pain, Shortness of Breath, Sputum production, Wheezing Gastrointestinal: Reports: Abdominal Pain, Diarrhea, Nausea, Vomiting. Denies: Constipation Genitourinary: Denies: Dysuria, Frequency, Hematuria Musculoskeletal: Denies: Arm Pain, Back Pain, Foot Pain Skin: Denies: Dryness, Rash Neurological: Denies: Balance problems, Blurred vision, Double vision, Change in Speech, Slurred speech, Confusion, Incoordination, Numbness, Tingling Psychiatric: Denies: Anxiety, Depression Endocrine: Denies: Change in Body Habitus, Polydipsia, Polyuria VTE Information - Inpt Only VTE Present on Admission: No VTE Mechan Device Prophylaxis: None VTE Pharm Prophylaxis ordered?: Yes Patient Problems: Active and Suspected Problems Acute cystitis (Suspected) Lactic acidosis (Acute) Acute diarrheal illness (Acute) Syncope (Acute) - Physical Exam Vitals/I&O's: Vital Signs Temp Pulse Resp BP Pulse Ox 98.4 F 87 18 120/61 95 03/15/19 10:20 03/15/19 10:20 03/15/19 10:20 03/15/19 10:20 03/15/19 10:20 Oxygen Delivery Method Room Air Weight: 220 lb 7.396 oz Body Mass Index (BMI) 40.3 Intake and Output for Last 24 Hours 03/13/19 03/14/19 03/15/19 23:59 23:59 23:59 Intake Total 1050 / 1050 Balance 1050 / 1050 General: Alert, Oriented x3, Cooperative, No apparent distress HEENT: Atraumatic, PERRLA, EOMI, Normocephalic Oral: No Gingival or Mucosal Lesions/ Ulcerations, Dry Mucosa Neck: Supple, No JVD, Negative Carotid Bruits, Trachea Midline, Thyroid Normal Size and Texture Lungs: Clear to auscultation, Normal air movement, No rhonchi, No wheeze, No rales, Diminished Cardiovascular: Regular rate, Regular Rhythm, Normal S1, Normal S2, PMI Normal Abdomen: Bowel Sounds Present, Soft, Non Tender, Non-Distended, No Hepato-splenomegaly, Obese Extremities: No clubbing, No cyanosis, No edema Skin: No rashes, No breakdown Lymphatic: No Cervical, Supraclavicular, or Inguinal Adenopathy Neurological: Cranial nerves II-XII grossly intact, Motor Exam 5/5 strength throughout Psych/Mental Status: Normal Affect, Appropriate, Alert and oriented to time, place, person, mood and affect Laboratory Results 03/15/19 06:55: WBC 17.3 H, RBC 4.81, Hgb 13.7, Hct 42.8, MCV 89.0, MCH 28.5, MCHC 32.0, RDW Std Deviation 43.5, RDW Coeff of Landy 13.2, Plt Count 473 H, MPV 9.6, Immature Gran % (Auto) 0.400, Neut % (Auto) 87.8 H, Lymph % (Auto) 6.9 L, [place] % (Auto) 4.7, Eos % (Auto) 0.1, Baso % (Auto) 0.1, Absolute Neuts (auto) 15.2 H, Absolute Lymphs (auto) 1.19, Nucleated RBC % 0 03/15/19 06:55: Sodium 138, Potassium 4.3, Chloride 105, Carbon Dioxide 23.0, Anion Gap 10, BUN 12, Creatinine 0.91, Estim Creat Clear Calc 44.20, Est GFR (MDRD) Af Amer 78, Est GFR (MDRD) Non-Af 65, BUN/Creatinine Ratio 13.2, Glucose 242 H, Calcium 9.4, Total Bilirubin 0.50, AST 20, ALT 22, Alkaline Phosphatase 70, Troponin I < 0.015, Total Protein 6.9, Albumin 3.4, Globulin 3.5, Albumin/Globulin Ratio 1.0 03/15/19 08:39: Urine Color Yellow, Urine Clarity Sl. Cloudy, Urine pH 6.0, Ur Specific [place] 1.010, Urine Protein 15 H, Urine Glucose (UA) Normal, Urine Ketones Negative, Urine Occult Blood Negative, Urine Nitrite Negative, Urine Bilirubin Negative, Urine Urobilinogen Normal, Ur Leukocyte Esterase 500 H, Urine RBC 0 SEEN, Urine WBC 25-50 SEEN, Ur Squamous Epith Cells 5-10 SEEN, Urine Bacteria 1+, Urine Mucus 0 SEEN 03/15/19 09:17: Lactic Acid 4.2 H* Clinical Impression(s) from Imaging Studies Brain CT 03/15/19 06:42 IMPRESSION: No fracture or intracranial hemorrhage. Electronically Signed: Rehan Reynaga MD at 7:31 EST Tel , Service support , Chest X-Ray 03/15/19 06:43 IMPRESSION: Clear lungs. Cardiomegaly. Questionable right apex pulmonary nodule versus partially calcified granuloma. Nonemergent chest CT recommended to further evaluate. Electronically Signed: Phill Thayer DO at 7:54 EST Tel , Service support , Cervical Spine CT 03/15/19 06:44 IMPRESSION: No acute osseous injury is evident. 2 x 1.5 cm left thyroid nodule. Consider ultrasound follow-up. Comment: MRI is more sensitive than CT in detecting cord injury, ligament injury, and epidural hematoma. If there is continued clinical concern for any of these entities, MRI correlation should be considered if possible. Electronically Signed: Rehan Reynaga MD at 7:33 EST Tel , Service support , Abdomen/Pelvis CT 03/15/19 07:52 IMPRESSION: No acute findings. Remaining chronic findings as above Electronically Signed: Phill Thaeyr DO at 8:46 EST Tel , Service support , Current Medications Acetaminophen (Tylenol) 650 mg PO Q6H PRN PRN PRN Reason: Pain Score 1-3/Temp > 100.7 F Enoxaparin Sodium (Lovenox) 40 mg SC DAILY TITO Glucagon () 1 mg IM .X1 PRN PRN Reason: Hypoglycemia Sodium Chloride () 1,000 mls @ 999 mls/hr IV .Q1H1M TITO Stop: 03/15/19 12:23 Last Admin: 03/15/19 10:30 Dose: 999 mls/hr Documented by: Sodium Chloride () 1,000 mls @ 100 mls/hr IV .Q10H TITO Ceftriaxone Sodium (Rocephin) 1 gm in 50 mls @ 100 mls/hr IV Q24 TITO Dextrose (Dextrose 10%-Water) 250 mls @ 999 mls/hr IV .Q16M PRN; Protocol PRN Reason: HYPOGLYCEMIA Insulin Human Lispro (Humalog Kwikpen (Bkc)) 0 unit SC ACHS TITO; Protocol Linagliptin (Tradjenta) 5 mg PO DAILY TITO Losartan Potassium (Cozaar) 50 mg PO DAILY TITO Ondansetron HCl (Zofran) 4 mg IV Q8H PRN PRN PRN Reason: NAUSEA/VOMITING Pravastatin Sodium (Pravachol) 80 mg PO QHS TITO Assessment/Plan All Active Problems Lactic acidosis (Acute) Acute diarrheal illness (Acute) Syncope (Acute) This is a 73 years old female patient presented to the emergency room because of syncope with 3 days history of diarrhea, nausea and vomiting and she was found to have significant leukocytosis with lactic acidosis will have findings consistent with probable acute cystitis and she is being admitted for treatment. #1 acute diarrheal illness: Patient was on a cruise late February. This is probably due to viral gastroenteritis/food poisoning. She does have leukocytosis with elevated lactic acid. She is afebrile, no tachycardia, blood pressure stable. Imaging studies including chest x-ray, CT scan abdomen and CT cervical spine were unremarkable. Plan: Admit to [facility] floor, IV fluids as below, blood culture, urine culture, stool for enteric pathogens, stool for C. difficile, replace electrolytes as appropriate, repeat CBC and BMP tomorrow morning, PT OT evaluation and treatment. #2 lactic acidosis: This is probably due to severe dehydration and tissue hypoperfusion. I doubt septic shock. There was no strong evidence of acute cystitis, patient is afebrile, no tachycardia, blood pressure stable. Plan: Bolus of IV fluid 3 L, blood culture, urine culture, repeat lactic acid in 3 hours. #3 probable acute cystitis: Again, no strong evidence of acute cystitis on urinalysis. Plan: Urine culture, start IV Rocephin. #4 syncope: Probably due to vasovagal syncope due to severe dehydration. At this time, blood pressure stable, no tachycardia. EKG was unremarkable. Plan as above. #5 type 2 diabetes mellitus: ADA diet, Accu-Cheks, insulin sliding scale, continue Januvia, hold metformin. #6 hypertension: Blood pressure stable, continue losartan. #7 hyperlipidemia: Continue statins. #8 DVT prophylaxis: Subcu Lovenox. This note was generated with [employer] dictation software. It may contain incorrect words, spelling, and punctuation that were not noted in checking the note before signing. Code Visit Inpatient E&M: 14893 Init Hosp L3
[2019-03-15 12:11] LABS: Bedside Glucose 120 mg/dL (70-110)
--- NOTE | 2019-03-15 13:16 | NURSING ---
in to check on pt, pt sitting on side of bed. denies all dizziness. reports itching and rash. note shift-assessment. pt refused benadryl. had charge nurse come look at rash as well whom also notified dr. knowles, pt instructed to let this nurse know if changes mind on benadryl.
[2019-03-15 13:21] LABS: Reflex Lactate? Y
[2019-03-15] MEDS: 0.9% Saline Lock 10 ML Syringe IV (13:26)
[2019-03-15] MEDS: 0.9% Normal Saline 1,000 ML 100 ML IV (14:24)
[2019-03-15 14:35] LABS: Lactic Acid 3.4 mmol/L (0.4-1.9)
[2019-03-15 17:05] LABS: Bedside Glucose 103 mg/dL (70-110)
[2019-03-15] MEDS: Pravastatin 80 MG Tablet PO (21:46)
[2019-03-15 22:00] LABS: Bedside Glucose 122 mg/dL (70-110)
[2019-03-16] MEDS: 0.9% Normal Saline 1,000 ML 100 ML IV (00:31)
[2019-03-16 03:58] VITALS: PULSE 71
[2019-03-16 05:13] LABS: Absolute Lymphocyte Count 2.32 X10^3/uL (0.83-4.51); Absolute Neutrophil Count 4.2 X10^3/uL (2.0-7.7); Basophil# 0.02 X10^3/uL; Basophil% 0.3 % (0-1); Eosinophil# 0.25 X10^3/uL; Eosinophils% 3.4 % (0-5); Hematocrit 35.7 % (37-47); Hemoglobin 10.8 g/dL (12.0-15.0); Lymphocyte # 2.32 X10^3/ul (4.0); Mean Corp Hgb Conc 30.3 g/dL (32-36); Mean Corpuscular Hgb 28.2 pg (27.0-32.0); Mean Corpuscular Volume 93.2 fL (81-99); Mean Platelet Vol. 9.7 fl (6.2-12.0); Monocyte# 0.48 X10^3/uL; Monocyte% 6.6 % (0-10); NRBC Flagged by Analyzer 0 % (0-5); Neutrophil # 4.16 X10^3/uL (2.7-7.7); Neutrophil % 57.3 % (47-70); Platelet Count 356 K/mm3 (150-450); RBC Distribution Width CV 13.9 % (11.6-14.6); RBC Distribution Width SD 47.2 fl (35.1-43.9); Red Blood Count 3.83 M/mm3 (4.2-5.4); White Blood Count 7.3 K/mm3 (4.4-11.0)
[2019-03-16 05:42] LABS: Anion Gap 6 (5-15); BUN 6 mg/dL (7-18); BUN/Creat Ratio 10.3 RATIO (10-20); Calcium,Total 8.1 mg/dL (8.5-10.1); Chloride 111 mmol/L (98-107); Creatinine, Serum 0.58 mg/dL (0.55-1.02); EST Glomerular Filtration Rate 108 mL/min (>60); Est Glom Filt Rate - Afr Amer 131 mL/min (>60); Estimated Creatinine Clearance 40.22 ml/min; Glucose 132 mg/dL (74-106); Potassium 3.9 mmol/L (3.5-5.1); Sodium Level 142 mmol/L (136-145)
[2019-03-16 05:52] VITALS: BP 102/45; PULSE 78; RESP 16; TEMP 37; O2SAT 94
[2019-03-16 06:40] LABS: Bedside Glucose 143 mg/dL (70-110)
[2019-03-16 07:01] VITALS: PULSE 74
[2019-03-16 07:29] VITALS: O2SAT 94
[2019-03-16 09:51] VITALS: BP 103/52; PULSE 73; RESP 18; TEMP 36.7; O2SAT 96
[2019-03-16] MEDS: Ceftriaxone 1 GM/50 ML BAG IV (09:54)
[2019-03-16] MEDS: Enoxaparin 40 MG/0.4 ML Syringe SC (09:55)
[2019-03-16] MEDS: LINAGLIPTIN 5 MG TABLET PO (09:55)
[2019-03-16] MEDS: Losartan Potassium 50 MG Tablet PO (09:55)
--- NOTE | 2019-03-16 10:24 | DCINST_ITS ---
- Discharge Diagnoses Current Active Problems: Current Active and Chronic Problems Lactic acidosis (Acute) Acute diarrheal illness (Acute) Hyperlipidemia (Chronic) Hypertension (Chronic) Type 2 diabetes mellitus (Chronic) Syncope (Acute) You will use the following diet at home:: Calorie/Carbohydrate Controlled (specify 1200, 1400, etc) - 2000 ade., Cardiac Your food should be the consistency of: Regular Discharge Activity: Return to Normal Activity Weight Bearing Status: Weight bearing as tolerated Call your doctor if you observe: Fever of 101 or Higher, Shortness of breath, Dizziness, Fainting spells, Chest pain, Increased palpitations (irregular heartbeat), Uncontrolled pain Instructions: Preventing Food Poisoning Allergies/Adverse Reactions: Allergies Penicillins Allergy (Verified 08/16/18 11:06) Rash propoxyphene [From Darvon] Adverse Reaction (Verified 08/16/18 11:06) Nausea/Vom/Diarrhea Medications to take at Discharge Pravastatin Sodium 80 mg PO QHS 08/16/18 Sitagliptin Phosphate [Januvia] 50 mg PO DAILY 08/16/18 metFORMIN (XR) [Glucophage Xr] 500 mg PO BID 08/16/18 Losartan Potassium [Cozaar] 50 mg PO DAILY 03/15/19 Ciprofloxacin [Cipro] 500 mg PO BID #10 tab 03/16/19 The following prescriptions were given: Ciprofloxacin [Cipro] 500 mg PO BID #10 tab Transmission Status: Pending to [id number] Primary Care Physician: Yasmeen Heller MD [Primary Care Provider] - Please follow up with your Primary Care Physician in: 1-2 weeks. Test Results: Test results from this visit will be discussed in further detail at your follow- up appointment, if applicable.
--- NOTE | 2019-03-16 11:05 | CASEMGMT ---
RN CM Assessment Presentation: UTI, syncope Intro role of CM and purpose of RN CM assessment to pt's . Pt is in bathroom changing to go home. Demographics, PCP and Pharmacy verified. Per , pt is independent, no care needs. Plans to return home and is able to assist. PCP: Dr. Heller Specialists: none Preferred Pharmacy: [place], [place] Insurance: [facility] Prescription Benefit: yes LNOK: Living Arrangements: Lives independently Transportation: drives DME: none HHC/SNF: none SW Referral: no Patient DC goals: Home DC PLAN: Home today.
--- NOTE | 2019-03-16 12:11 | PCM.DC.SUM ---
Discharge Date and Diagnosis Date of Admission: 03/15/19 Date of Discharge: 03/16/19 - Primary Discharge Diagnosis #1 acute viral gastroenteritis. #2 vasovagal syncope. #3 probable acute cystitis. #4 lactic acidosis, attributed to dehydration and tissue hypoperfusion, no evidence of septic shock. - Secondary Discharge Diagnosis Chronic Problems Hyperlipidemia (Chronic) Hypertension (Chronic) Type 2 diabetes mellitus (Chronic) Hospital Course and Treatment Imaging Results: Clinical Impression(s) from Imaging Studies Brain CT 03/15/19 06:42 IMPRESSION: No fracture or intracranial hemorrhage. Electronically Signed: Rehan Reynaga MD at 7:31 EST Tel , Service support , Chest X-Ray 03/15/19 06:43 IMPRESSION: Clear lungs. Cardiomegaly. Questionable right apex pulmonary nodule versus partially calcified granuloma. Nonemergent chest CT recommended to further evaluate. Electronically Signed: Phill Thayer DO at 7:54 EST Tel , Service support , Cervical Spine CT 03/15/19 06:44 IMPRESSION: No acute osseous injury is evident. 2 x 1.5 cm left thyroid nodule. Consider ultrasound follow-up. Comment: MRI is more sensitive than CT in detecting cord injury, ligament injury, and epidural hematoma. If there is continued clinical concern for any of these entities, MRI correlation should be considered if possible. Electronically Signed: Rehan Reynaga MD at 7:33 EST Tel , Service support , Abdomen/Pelvis CT 03/15/19 07:52 IMPRESSION: No acute findings. Remaining chronic findings as above Electronically Signed: Phill Thayer DO at 8:46 EST Tel , Service support , Operations: None Procedures: None Summary of Care Provided: Patient seen and examined on the day of discharge and appeared to be stable to be discharged home. She has no more diarrhea, no nausea or vomiting. Denies dizziness or lightheadedness. Denies fever or chills. Her vital signs are stable. The patient is a 73 year old F patient presented to the emergency room because of syncope with 3 days history of diarrhea, nausea and vomiting in the setting of a recent cruise to the [facility] and she was found to have viral gastroenteritis, lactic acidosis and probable acute cystitis. Her lactic acid on admission was 4.2 which is attributed to dehydration and poor tissue hypoperfusion. There was no evidence of septic shock. Patient was treated with IV fluids and her lactic acid came down to 3.4. Leukocytosis resolved and patient remained afebrile. Patient had lower abdominal and back skin rash which is attributed to the viral syndrome. She was treated with IV Rocephin for probable acute cystitis. Stool for C. difficile was negative. Stool for enteric pathogens were negative. At the time of discharge, blood and urine cultures were pending. Patient discharged home in a stable medical condition, discharged on ciprofloxacin 500 mg p.o. twice daily for 5 days for UTI, instructed to hydrate herself if she started having diarrhea again, continued on her previous home medications without any changes, recommended from with PCP in 1 to 2 weeks. - Physical Exam Vitals/I&O's: Vital Signs Temp Pulse Resp BP Pulse Ox 98.1 F 73 18 103/52 L 96 03/16/19 09:51 03/16/19 09:51 03/16/19 09:51 03/16/19 09:51 03/16/19 09:51 Oxygen Delivery Method Room Air Weight: 220 lb 7.396 oz Body Mass Index (BMI) 40.3 Intake and Output for Last 24 Hours 03/14/19 03/15/19 03/16/19 23:59 23:59 23:59 Intake Total 3500 / 4300 3050 / 3050 Output Total 300 / 300 300 / 300 Balance 3200 / 4000 2750 / 2750 General: Alert, Oriented x3, Cooperative, No apparent distress HEENT: Atraumatic, PERRLA, EOMI, Normocephalic Oral: Moist Mucosa, No Gingival or Mucosal Lesions/ Ulcerations Neck: Supple, No JVD, Negative Carotid Bruits, Trachea Midline, Thyroid Normal Size and Texture Lungs: Clear to auscultation, Normal air movement, No rhonchi, No wheeze, No rales Cardiovascular: Regular rate, Regular Rhythm, Normal S1, Normal S2, PMI Normal Abdomen: Bowel Sounds Present, Soft, Non Tender, Non-Distended, No Hepato-splenomegaly Extremities: No clubbing, No cyanosis, No edema Skin: No rashes, No breakdown Lymphatic: No Cervical, Supraclavicular, or Inguinal Adenopathy Neurological: Cranial nerves II-XII grossly intact, Neuro grossly intact Psych/Mental Status: Normal Affect, Appropriate Microbiology Past 72 Hours 03/15/19 14:38 Stool Enteric Bacteriology - Final 03/15/19 14:43 Stool C. difficile DNA Amplification - Final Laboratory Results 03/15/19 11:23: POC Glucose 120 H 03/15/19 13:56: Lactic Acid 3.4 H* 03/15/19 16:53: POC Glucose 103 03/15/19 21:41: POC Glucose 122 H 03/16/19 04:56: WBC 7.3, RBC 3.83 L, Hgb 10.8 L, Hct 35.7 L, MCV 93.2, MCH 28.2, MCHC 30.3 L, RDW Std Deviation 47.2 H, RDW Coeff of Landy 13.9, Plt Count 356, MPV 9.7, Immature Gran % (Auto) 0.400, Neut % (Auto) 57.3, Lymph % (Auto) 32.0, [place] % (Auto) 6.6, Eos % (Auto) 3.4, Baso % (Auto) 0.3, Absolute Neuts (auto) 4.2, Absolute Lymphs (auto) 2.32, Nucleated RBC % 0 03/16/19 04:56: Sodium 142, Potassium 3.9, Chloride 111 H, Carbon Dioxide 25.0, Anion Gap 6, BUN 6 L, Creatinine 0.58, Estim Creat Clear Calc 40.22, Est GFR (MDRD) Af Amer 131, Est GFR (MDRD) Non-Af 108, BUN/Creatinine Ratio 10.3, Glucose 132 H, Calcium 8.1 L 03/16/19 06:32: POC Glucose 143 H Discharge Activity: Return to Normal Activity Weight Bearing Status: Weight bearing as tolerated Call your doctor if you observe: Fever of 101 or Higher, Shortness of breath, Dizziness, Fainting spells, Chest pain, Increased palpitations (irregular heartbeat), Uncontrolled pain Home Medications: Medications to take at Discharge Pravastatin Sodium 80 mg PO QHS 08/16/18 Sitagliptin Phosphate [Januvia] 50 mg PO DAILY 08/16/18 metFORMIN (XR) [Glucophage Xr] 500 mg PO BID 08/16/18 Losartan Potassium [Cozaar] 50 mg PO DAILY 03/15/19 Ciprofloxacin [Cipro] 500 mg PO BID #10 tab 03/16/19 Following Prescrptions Were Given to Patient: Ciprofloxacin [Cipro] 500 mg PO BID #10 tab Transmission Status: Received by [id number] Primary Care Physician: Yasmeen Heller MD [Primary Care Provider] - Please follow up with your Primary Care Physician in: 1-2 weeks. Patient Instructions: Preventing Food Poisoning Disposition: Home Minutes spent on discharge:: 27 Patient Condition:: Stable Medical Necessity - Tobacco Use Smoking Status: Never smoker Meaningful Use Info Meaningful Use Diagnoses (Choose all that apply): None applicable Code Visit Inpatient E&M: 21756 Disch Hosp
== END 2019-03-16 11:28 | disposition home or self-care (01) | DRG 392 ==
LOC: ED 09:16 → MS3 15:39
PROVIDERS: Emergency Medicine; Admitting Provider Hospitalist; Emergency Provider Emergency Medicine; Family Provider Internal Medicine; PCP Internal Medicine; Visit Provider Hospitalist
DX: A08.4 Viral intestinal infection, unspecified (principal); E87.2 Acidosis; N30.00 Acute cystitis without hematuria; R55 Syncope and collapse; E78.5 Hyperlipidemia, unspecified; I10 Essential (primary) hypertension; Z79.84 Long term (current) use of oral hypoglycemic drugs; E11.9 Type 2 diabetes mellitus without complications
CPT/HCPCS: 36415; 70450; 71046; 72125; 74177; 80048; 80053; 81001; 82962; 83605; 84484; 85025; 87040; 87086; 87088; 87493; 87506; 93005; 99251; 99285; J7030; Q9967; A4216; G0463; J2405

== ENCOUNTER → 2019-12-15 15:50 | Outpatient (CLI) | payer MEDICARE, SELFPAY ==
[2019-03-15 10:02] VITALS: BMI 40.3
--- NOTE | 2019-12-15 15:53 | BI_ITS ---
MAMMOGRAPHY - BILATERAL SCREENING REASON FOR EXAM: Female, 74 years old. Routine annual screening examination. PERTINENT HISTORY: Mother with breast cancer. Remote right stereotactic breast biopsy. TECHNIQUE: Digital bilateral breast bonifacio (3D mammographic acquisition) in the CC and MLO projections. 2-D mediolateral oblique (MLO) and craniocaudad (CC) views of both breasts were obtained. CAD: Full Field Digital Mammography with Computer Added Detection was performed. COMPARISON: Comparison is made with prior study dated 04/28/2018 and 03/22/2017. FINDINGS: Breast Composition: The breasts are almost entirely fatty. There are no dominant masses or suspicious calcifications. Stable scattered calcifications in both breasts. No focal cluster is seen. A tissue clip marker is once again seen in the slightly upper lateral portion of the right breast. No other significant abnormalities are identified. There has been no significant change since the prior study. BI/SCREEN MAMM (CAD) W/BONIFACIO BILAT IMPRESSION: Stable bilateral screening mammogram. Yearly follow-up mammogram recommended. (A) ASSESSMENT CATEGORY: BIRADS Category 2: Benign. A letter regarding these results will be sent to the patient by the facility within 30 days. Approximately 10% of breast cancers are not detected by mammography. A normal mammogram should not delay biopsy of a clinically suspicious abnormality. [id number] Electronically Signed: Vince Tello, at 15:12 EDT , Service support ,
== END ==
PROVIDERS: PCP Internal Medicine; Referring Provider Internal Medicine; Visit Provider Internal Medicine
DX: Z12.31 Encounter for screening mammogram for malignant neoplasm of breast (principal)
CPT/HCPCS: 77063; 77067

== ENCOUNTER 2020-02-06 18:43 | Inpatient (IN) | payer MEDICARE, SELFPAY ==
[2019-03-15 10:02] VITALS: BMI 40.3
[2020-02-06] VITALS (11 sets, daily range): BP systolic 126–151; BP diastolic 47–126; PULSE 81–94; RESP 15–20; TEMP 36–37.6; O2SAT 88–99; BMI 32.9; BMI 41.4; BMI 40.4
--- NOTE | 2020-02-06 18:51 | ED.RN ---
THIS RN WHEELED PT BACK TO ROOM ONE AND PLACED IN BED. CHARGE NURSE SOFIYA, AND DR. REARDON NOTIFIED OF PT SX AT 1850.
--- NOTE | 2020-02-06 18:59 | CT_ITS ---
STUDY: CT HEAD STROKE PROTOCOL W/O CONTRAST INJECTION REASON FOR EXAM: Female, 74 years old. Left-sided vision loss since 6:00 AM. History of diabetes and hypertension. CVA. RADIATION DOSAGE (If Supplied By Facility): CTDIvol = ( 44.99 ) mGy, DLP = ( 745.49 ) mGycm TECHNIQUE: Transaxial CT imaging of the brain was performed without administration of intravenous contrast material. Individualized dose optimization techniques were used for this CT. COMPARISON: 03/15/2019. FINDINGS: Normal soft tissue structures. Normal calvarium. Normal size ventricles and extra-axial spaces for the patient''s age. Normal white matter tracts of the cerebral hemispheres. Normal basal ganglia and thalami. Normal brainstem. Normal cerebellum. There is no intracranial hemorrhage. There are no findings of an acute ischemic infarction. Normal visualized paranasal sinuses. ASPECT score: 10 CT/STROKE Brain/Head without Cont IMPRESSION: No acute intracranial or calvarial abnormality. There is no major interval change. N.B. : The above information has been verbally conveyed by William Lopez DO to Amol Razo MD, on 02/06/2020 19:14:45 (ET). Electronically Signed: William Lopez DO at 19:16 EST Tel [phone], Service support ,
--- NOTE | 2020-02-06 19:00 | ED.DCSUM_ITS ---
History of Present Illness Chief Complaint: Neuro S/Sx Narrative: This patient is a 74-year-old female who presents with chief complaint of I cannot see. This actually has been since 6 AM this morning. She woke up with visual changes. Initially she stated that she cannot see anything motion shapes or color. However she stated that she looked directly at her who was standing in the room. On further questioning she then admitted that she can make out shapes and was able to see her 's shirt. She also complains of mild intermittent headaches today. No chest pain no difficulty breathing no fever cough. No vomiting. No history of stroke. She has had some mild diarrhea. Currently she has no pain. She denies any numbness tingling or weakness in the extremities. Past Medical History - Allergies and Home Meds Allergies/Adverse Reactions: Allergies Penicillins Allergy (Verified 02/06/20 18:43) Rash propoxyphene [From Darvon] Adverse Reaction (Verified 02/06/20 18:43) Nausea/Vom/Diarrhea Primary Care Physician: Yasmeen Heller MD [Primary Care Provider] - Past Medical History: - - Diabetes, hypertension, hyperlipidemia Surgical History: cholecystectomy, herniorrhaphy Smoking Status: Never smoker - Family History Maternal Family History: Reports: No pertinent history Paternal Family History: Reports: No pertinent history Review of Systems All systems negative except as indicated General: Denies: Fever Eyes: Reports: Visual changes - bilaterally ENT: Denies: Bilateral ear pain Cardiovascular: Denies: Chest pain Respiratory: Denies: Dyspnea Gastrointestinal: Reports: Diarrhea. Denies: Nausea, Vomiting Musculoskeletal: Denies: Myalgias, Arthralgias Skin: Denies: Rash Neurological: Denies: Headache Hematologic: Denies: Easy bruising Allergy: Denies: Uticaria Physical Exam Vital Signs/Narrative: Vital Signs Temp Pulse Resp BP Pulse Ox 02/06/20 18:44 96.8 F L 91 17 151/126 H 99 Inital Vital Signs reviewed: Yes General: Well nourished Head: Normocephalic Eyes: - - Extraocular motion is intact. Patient can make out motion in the right visual pillai. She is unable to see any motion on the left visual pillai ENT: Moist mucous membranes Neck: Supple Cardiovascular: Regular rate, Regular rhythm Respiratory: No distress, CTA bilaterally Abdomen: Soft Skin: Normal color Neurological: Alert, Oriented x3, - - NIH stroke scale is 2 for left visual field cut. However she also complains of nearly diminished vision in the right visual pillai. She does not have facial droop she has normal strength and sensation of the extremities no ataxia no dysarthria or aphasia Psychological: - - Anxious Diagnostic/Tx/Re-eval Impressions Brain CT 02/06/20 18:59 IMPRESSION: No acute intracranial or calvarial abnormality. There is no major interval change. N.B. : The above information has been verbally conveyed by William Lopez DO to Amol Razo MD, on 02/06/2020 19:14:45 (ET). Electronically Signed: William Lopez DO at 19:16 EST Tel [phone], Service support , ADDENDUM: 02/06/20 1923 IMPRESSION: No acute intracranial or calvarial abnormality. There is no major interval change. N.B. : The above information has been verbally conveyed by William Lopez DO to Amol Razo MD, on 02/06/2020 19:14:45 (ET). Electronically Signed: William Lopez DO at 19:16 EST Tel [phone], Service support , Head/Neck CTA 02/06/20 19:00 IMPRESSION: 1. Normal [place] of [place] without evidence of intracranial aneurysm or occlusion. 2. Mild atherosclerotic changes of the bilateral carotid arteries without significant stenosis. 3. Question minimal low attenuation in the right occipital lobe. Electronically Signed: William Lopez DO at 19:39 EST Tel [phone], Service support , Chest X-Ray 02/06/20 19:50 IMPRESSION: Borderline cardiomegaly without acute pulmonary disease or interval change. Electronically Signed: William Lopez DO at 20:08 EST Tel [phone], Service support , 02/06/20 18:59 STROKE Brain/Head without Cont [CT] Stat 02/06/20 19:00 CTA Head AND Neck W/ Contrast [CT] Stat 02/06/20 19:50 Chest 1 View [RAD] Stat Laboratory Results 02/06/20 02/06/20 02/06/20 18:52 19:10 19:10 WBC 11.2 H RBC 4.22 Hgb 12.1 Hct 38.0 MCV 90.0 MCH 28.7 MCHC 31.8 L RDW Std Deviation 41.1 RDW Coeff of Landy 12.6 Plt Count 439 MPV 9.4 Immature Gran % (Auto) 0.400 Neut % (Auto) 80.2 H Lymph % (Auto) 14.4 L Sequoyah % (Auto) 4.6 Eos % (Auto) 0.0 Baso % (Auto) 0.4 Absolute Neuts (auto) 9.0 H Absolute Lymphs (auto) 1.62 Nucleated RBC % 0 PT 13.5 INR 1.1 APTT 26.6 Sodium Potassium Chloride Carbon Dioxide Anion Gap BUN Creatinine Estim Creat Clear Calc Est GFR (MDRD) Af Amer Est GFR (MDRD) Non-Af BUN/Creatinine Ratio Glucose Calcium Troponin I POC Glucose 190 H 02/06/20 19:10 WBC RBC Hgb Hct MCV MCH MCHC RDW Std Deviation RDW Coeff of Landy Plt Count MPV Immature Gran % (Auto) Neut % (Auto) Lymph % (Auto) [place] % (Auto) Eos % (Auto) Baso % (Auto) Absolute Neuts (auto) Absolute Lymphs (auto) Nucleated RBC % PT INR APTT Sodium 135 L Potassium 4.1 Chloride 102 Carbon Dioxide 27.0 Anion Gap 6 BUN 6 L Creatinine 0.70 Estim Creat Clear Calc 37.81 Est GFR (MDRD) Af Amer 106 Est GFR (MDRD) Non-Af 88 BUN/Creatinine Ratio 8.6 L Glucose 182 H Calcium 9.3 Troponin I 0.137 H POC Glucose - Medical Decision Making EKG shows normal sinus rhythm at a rate of 87 with no acute ischemic changes. A stroke team was activated. CT of the head showed no acute infarct. Patient was evaluated by neurology. They agree the patient is not a candidate for TPA. CTA shows no large vessel occlusion does show questionable low-attenuation in the right occipital lobe. This could potentially explain left visual symptoms although she has bilateral visual symptoms. Her labs are notable for an indeterminate troponin of 0.13. She has no chest pain. She has no shortness of breath. She has no ischemic EKG changes. Patient was discussed with the hospitalist and admitted for further evaluation and management. ED Disposition - Plan for ED Patient: Disposition: [facility] Diagnosis: Stroke, Visual changes, Elevated troponin Referrals: Yasmeen Heller MD [Primary Care Provider] -
--- NOTE | 2020-02-06 19:00 | CT_ITS ---
STUDY: CTA HEAD AND NECK WITH CONTRAST REASON FOR EXAM: Female, 74 years old. Left-sided vision loss since 6:00 AM. RADIATION DOSAGE (If Supplied By Facility): CTDIvol = ( 27.36 ) mGy, DLP = ( 782.31 ) mGycm TECHNIQUE: CT angiography was performed with a multi-detector CT scanner. Data acquisition was obtained from the skull base through the vertex following intravenous administration of IV 100mL Isovue-370. MIP images were reconstructed from the axial data set. Post-processing of the angiographic images was performed, with multiplanar reformation and 3D reconstruction. Individualized dose optimization techniques were used for this CT. COMPARISON: CT of the head, 02/06/2020. FINDINGS: Normal bilateral petrous carotid arteries. There is calcified plaque formation of the right cavernous carotid artery, without a cross-sectional luminal stenosis. There is calcified plaque formation of the left cavernous carotid artery, with a mild stenosis (less than 50%). Normal right A1 segments of the anterior cerebral artery. Normal left A1 segments of the anterior cerebral artery. Normal intact anterior communicating artery (ACOM). Normal bilateral A2 segments of the anterior cerebral arteries. Normal right M1 and M2 segments of the middle cerebral arteries, with a normal M1 bifurcation. Normal left M1 and M2 segments of the middle cerebral arteries, with a normal M1 bifurcation. There is non-visualization of the right posterior communicating artery (PCOM). There is non-visualization of the left posterior communicating artery (PCOM). Normal bilateral vertebral arteries. Normal basilar artery with a normal basilar bifurcation. The visualized bilateral superior cerebellar (SCA) arteries are normal. Normal bilateral P1, P2 and visualized P3 segments of the posterior cerebral arteries. There is no demonstrated aneurysm of the [place] of [place]. Question a minimal low attenuation in the right occipital lobe which may represent an acute infarct. AORTIC ARCH: Minimal atherosclerotic changes of the aortic arch without dissection or aneurysm. Normal origins of the brachiocephalic, left common carotid, and left subclavian arteries. RIGHT CAROTID ARTERIES: Tortuosity of the distal right common carotid artery (CCA which bifurcates posterior to the hypopharynx.). There is minimal calcifications at the carotid bifurcation extending into the carotid bulb. There is no significant stenosis. Normal origin of the right internal carotid (ICA) artery without a hemodynamically significant stenosis. Tortuosity of the visualized cervical portion of the right internal carotid artery. Normal origin of the right external carotid artery (ECA). LEFT CAROTID ARTERIES: Tortuosity of the distal left common carotid artery (CCA) which bifurcates posterior to the hypopharynx.. There is movement minimal calcified plaque in the carotid bulb without significant stenosis. Normal origin of the left internal carotid (ICA) artery without a hemodynamically significant stenosis. Tortuosity of the visualized cervical portion of the left internal carotid artery. Normal origin of the left external carotid artery (ECA). VERTEBRAL ARTERIES: Normal bilateral vertebral arteries. CT/CTA Head AND Neck W/ Contrast IMPRESSION: 1. Normal [place] of [place] without evidence of intracranial aneurysm or occlusion. 2. Mild atherosclerotic changes of the bilateral carotid arteries without significant stenosis. 3. Question minimal low attenuation in the right occipital lobe. Electronically Signed: William Lopez DO at 19:39 EST Tel [phone], Service support ,
[2020-02-06 19:06] LABS: Bedside Glucose 190 mg/dL (70-110)
--- NOTE | 2020-02-06 19:07 | CM.ED ---
Social Work Responding to stroke alert. Patient spouse present. Support provided. Dulce BOSS, TREVOR
[2020-02-06 19:15] LABS: Absolute Lymphocyte Count 1.62 X10^3/uL (0.83-4.51); Basophil# 0.04 X10^3/uL; Basophil% 0.4 % (0-1); Hemoglobin 12.1 g/dL (12.0-15.0); Lymphocyte # 1.62 X10^3/ul (4.0); Lymphocyte % 14.4 % (19-41); Mean Corp Hgb Conc 31.8 g/dL (32-36); Mean Corpuscular Hgb 28.7 pg (27.0-32.0); Mean Platelet Vol. 9.4 fl (6.2-12.0); Monocyte# 0.52 X10^3/uL; Monocyte% 4.6 % (0-10); NRBC Flagged by Analyzer 0 % (0-5); Neutrophil # 9.01 X10^3/uL (2.7-7.7); Neutrophil % 80.2 % (47-70); Platelet Count 439 K/mm3 (150-450); RBC Distribution Width CV 12.6 % (11.6-14.6); RBC Distribution Width SD 41.1 fl (35.1-43.9); Red Blood Count 4.22 M/mm3 (4.2-5.4); White Blood Count 11.2 K/mm3 (4.4-11.0)
[2020-02-06 19:25] LABS: International Normalized Ratio 1.1; Prothrombin Time (Protime)PT. 13.5 SECONDS (11.7-14.9)
[2020-02-06 19:26] LABS: Partial Thromboplast Time 26.6 Seconds (24.1-36.2)
--- NOTE | 2020-02-06 19:26 | EKG12_ITS ---
Test Reason : STROKE Blood Pressure : / mmHG Vent. Rate : 087 BPM Atrial Rate : 087 BPM P-R Int : 188 ms QRS Dur : 072 ms QT Int : 364 ms P-R-T Axes : 046 016 037 degrees QTc Int : 438 ms Normal sinus rhythm Low voltage QRS Septal infarct , age undetermined Abnormal ECG Confirmed by ESHA MURRIETA, DIONI ([id number]), editorial clerk ELIZABETH WADE ([id number]) on 02/07/2020 1:45:46 PM Referred By: Con Hinds Confirmed By:VAL BALBUENA MD
[2020-02-06 19:35] LABS: Anion Gap 6 (5-15); BUN 6 mg/dL (7-18); BUN/Creat Ratio 8.6 RATIO (10-20); Calcium,Total 9.3 mg/dL (8.5-10.1); Chloride 102 mmol/L (98-107); EST Glomerular Filtration Rate 88 mL/min (>60); Est Glom Filt Rate - Afr Amer 106 mL/min (>60); Estimated Creatinine Clearance 37.81 ml/min; Glucose 182 mg/dL (74-106); Potassium 4.1 mmol/L (3.5-5.1); Sodium Level 135 mmol/L (136-145)
[2020-02-06] MEDS: Ondansetron 4 MG/2 ML Vial IV (19:45)
--- NOTE | 2020-02-06 19:50 | RAD_ITS ---
STUDY: X-RAY CHEST REASON FOR EXAM: Female, 74 years old. PT WOKE UP UNABLE TO SEE AT 6 AM. REPORTS HEADACHE AND NAUSEA. GENERALIZED WEAKNESS. DIABETIC TECHNIQUE: Single AP portable view of the chest. COMPARISON: 03/15/2019. FINDINGS: The lungs are clear and expanded. There is a stable nodule in the right lung apex. There is no demonstrated pleural abnormality. There is borderline cardiomegaly. Normal mediastinum and clay. Normal visualized pulmonary arteries. Normal visualized aortic arch and descending thoracic aorta. There are diffuse degenerative changes of the visualized thoracic spine. There is degenerative osteoarthritis of the bilateral shoulders. There is no demonstrated abnormality of the visualized soft tissue structures of the upper abdomen. RAD/Chest 1 View IMPRESSION: Borderline cardiomegaly without acute pulmonary disease or interval change. Electronically Signed: William Lopez DO at 20:08 EST Tel [phone], Service support ,
--- NOTE | 2020-02-06 20:51 | PCM.HP.STD ---
Problem List (1) CVA (cerebral vascular accident) Status: Acute (2) Acute cystitis Status: Suspected (3) Lactic acidosis Status: Inactive (4) Acute diarrheal illness Status: Inactive (5) Hyperlipidemia Status: Chronic (6) Hypertension Status: Chronic (7) Type 2 diabetes mellitus Status: Chronic (8) Syncope Status: Inactive (9) Elevated troponin Status: Acute (10) Stroke Status: Acute (11) Visual changes Status: Acute History of Present Illness Date of Admission: 02/06/20 Chief Complaint: blindness The patient is a 74 year old F with a significant history of hypertension; diabetes mellitus; and hyperlipidemia who presents to the emergency department with blindness that started about 12 hours prior to presentation. Initially patient did not want to come to the hospital but with her prompting patient came to emergency department. Patient's denies any slurry speech; focal weakness; numbness and tingling. Past Medical History Past Medical History (Chronic Problems): Chronic Problems Hyperlipidemia (Chronic) Hypertension (Chronic) Type 2 diabetes mellitus (Chronic) Allergies Penicillins Allergy (Verified 02/06/20 18:43) Rash propoxyphene [From Darvon] Adverse Reaction (Verified 02/06/20 18:43) Nausea/Vom/Diarrhea Home Medications: Ambulatory Orders Medication Instructions Recorded Pravastatin Sodium 80 mg PO QHS 08/16/18 Sitagliptin Phosphate [Januvia] 50 mg PO DAILY 08/16/18 metFORMIN (XR) [Glucophage Xr] 500 mg PO BREAKFAST 08/16/18 Losartan Potassium [Cozaar] 50 mg PO DAILY 03/15/19 metFORMIN (XR) [Glucophage Xr] 1,000 mg PO DINNER 02/06/20 Surgical History: cholecystectomy, herniorrhaphy Psychiatric History: No pertinent psych hx 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 Denies: Chills, Fever, Weight Change HEENT: Denies: Head Aches, Sinus Congestion, Sinus Drainage Cardiovascular: Denies: Chest Pain, Palpitations Respiratory: Denies: Cough, Shortness of breath at rest, Sputum production Gastrointestinal: Reports: Nausea. Denies: Abdominal Pain, Vomiting Genitourinary: Denies: Dysuria Musculoskeletal: Denies: Joint Pain, Joint Tenderness Skin: Denies: Rash, Wounds Neurological: Denies: Numbness, Tingling, Focal weakness Psychiatric: Denies: Anxiety, Depression, Homicidal Ideations, Suicidal Ideations Hematologic/ Lymphatic: Denies: Easy Bruising, Easy Bleeding VTE Information - Inpt Only VTE Present on Admission: No VTE Mechan Device Prophylaxis: None VTE Pharm Prophylaxis ordered?: Yes Patient Problems: Active and Suspected Problems Stroke (Acute) Visual changes (Acute) Elevated troponin (Acute) CVA (cerebral vascular accident) (Acute) Acute cystitis (Suspected) - Physical Exam Vitals/I&O's: Vital Signs Temp Pulse Resp BP Pulse Ox 96.8 F L 89 18 148/68 H 94 02/06/20 18:44 02/06/20 19:30 02/06/20 19:30 02/06/20 19:30 02/06/20 19:30 Oxygen Delivery Method Room Air Weight: 102.2 kg Body Mass Index (BMI) 41.4 Finger Stick Blood Glucose 190 General: Alert, Oriented x3, Cooperative HEENT: Atraumatic, PERRLA, EOMI, Normocephalic Neck: Supple, No JVD, Negative Carotid Bruits Lungs: Clear to auscultation, Normal air movement Cardiovascular: Regular rate, No murmurs Abdomen: Bowel Sounds Present, Soft, Non Tender Extremities: No edema, Capillary Refill Less than 3 Seconds Skin: No rashes, No breakdown Musculoskeletal: No Tenderness to Palpation of Joints or Extremities Neurological: Cranial nerves II-XII grossly intact - Could not see moving fingers bilateral eyes. Each eye was tested separately. Psych/Mental Status: Anxious, Restless Laboratory Results 02/06/20 18:52: POC Glucose 190 H 02/06/20 19:10: WBC 11.2 H, RBC 4.22, Hgb 12.1, Hct 38.0, MCV 90.0, MCH 28.7, MCHC 31.8 L, RDW Std Deviation 41.1, RDW Coeff of Landy 12.6, Plt Count 439, MPV 9.4, Immature Gran % (Auto) 0.400, Neut % (Auto) 80.2 H, Lymph % (Auto) 14.4 L, Scott % (Auto) 4.6, Eos % (Auto) 0.0, Baso % (Auto) 0.4, Absolute Neuts (auto) 9.0 H, Absolute Lymphs (auto) 1.62, Nucleated RBC % 0 02/06/20 19:10: PT 13.5, INR 1.1, APTT 26.6 02/06/20 19:10: Sodium 135 L, Potassium 4.1, Chloride 102, Carbon Dioxide 27.0, Anion Gap 6, BUN 6 L, Creatinine 0.70, Estim Creat Clear Calc 37.81, Est GFR (MDRD) Af Amer 106, Est GFR (MDRD) Non-Af 88, BUN/Creatinine Ratio 8.6 L, Glucose 182 H, Calcium 9.3, Troponin I 0.137 H Assessment/Plan All Active Problems Stroke (Acute) Visual changes (Acute) Elevated troponin (Acute) CVA (cerebral vascular accident) (Acute) CVA NINDS NIH Scale was 2 CT of the head was unremarkable. Head and neck CT showed questionable minimal low-attenuation in the right occipital lobe. -Lipid level ordered Physical therapy, occupational therapy and to work with patient. N.p.o. until bedside swallow eval. Daily aspirin ordered. Home statin continued Permissive hypertension. Control blood pressure with labetalol for systolic blood pressure of more than 220 or diastolic blood pressure of more than 120. Per telemetry neurologist recommendation MRI with gadolinium of brain ordered; and ophthalmology consults ordered. Echocardiogram ordered. Diabetes mellitus Patient with hyperglycemia on presentation Hold Metformin Januvia continued Accu-Chek QA [facility] with correction scale insulin ordered. HTN Blood pressure is stable. Hold home blood pressure medication because of permissive hypertension. As needed labetalol and hydralazine ordered. Elevated troponin Denies any chest pain. EKG is unrevealing. Likely secondary to stroke. Trend troponin. DVT prophylaxis Subcutaneous Lovenox ordered. OBSV E&M: 63337 Initial observation care L3
--- NOTE | 2020-02-06 21:44 | ECHOCS_ITS ---
Reason For Study: TIA/CVA Procedure This was a 2D Doppler, Color Flow transthoracic echocardiogram. Exam performed portable in patient room. Left Ventricle Normal LV size. Left ventricular systolic function is normal. The estimated ejection fraction is 60 %. Stage 1 diastolic dysfunction. No regional wall motion abnormalities noted. Right Ventricle Normal RV size. Normal systolic function. Atria Normal left atrium. Normal right atrium. Bubble contrast study negative for right to left interatrial shunt. Mitral Valve There is moderate to severe mitral annular calcification. Tricuspid Valve Normal tricuspid valve. Aortic Valve The aortic valve is not well visualized. Mild (1+) aortic valve insufficiency. Pulmonic Valve Normal pulmonic valve. Great Vessels Normal aortic root. Pericardium/Pleural No pericardial effusion. Medication Performed a rapid injection of agitated mix of 9 cc saline and 1cc air to assess for atrial septal defect. Diluted definity 3ml given slow IV push to enhance endocardial definition. MMode/2D Measurements & Calculations LVIDd: 3.9 cm IVSd: 1.1 cm LVOT diam: 2.0 cm LVIDs: 2.7 cm LVPWd: 1.0 cm RVDd: 3.2 cm FS: 31.3 % LVOT area: 3.2 cm2 Ao root diam: 3.1 cm LAV(MOD-bp): 47.7 ml LVAd ap4: 24.3 cm2 LAV(MOD-bp) Indexed: 24.2 ml/m2 EDV(MOD-sp4): 68.1 ml LAV(MOD-sp2): 46.3 ml EDV(sp4-el): 68.7 ml LAV(MOD-sp4): 46.1 ml LVAs ap4: 14.0 cm2 ESV(MOD-sp4): 27.1 ml ESV(sp4-el): 27.0 ml EF(MOD-sp4): 60.2 % EF(sp4-el): 60.7 % SV(MOD-sp4): 41.0 ml SV(sp4-el): 41.7 ml LA A4 area: 19.8 cm2 LA dimension(2D): 3.4 cm RA A4 area: 16.7 cm2 Time Measurements MV dec time: 0.31 sec Doppler Measurements & Calculations MV E max rock: 127.6 cm/sec Lat Peak E' Rock: 9.1 cm/sec Med Peak E' Rock: 7.8 cm/sec MV A max rock: 168.3 cm/sec E/E' lat: 14.1 E/E' med: 16.4 MV E/A: 0.76 MV V2 max: 179.0 cm/sec MV P1/2t max rock: 128.6 cm/sec Ao V2 max: 184.0 cm/sec MV max P.8 mmHg MV P1/2t: 108.1 msec Ao max P.5 mmHg MV V2 mean: 99.6 cm/sec MV dec slope: 348.4 cm/sec2 Ao V2 mean: 133.8 cm/sec MV mean P.6 mmHg MVA(P1/2t): 2.0 cm2 Ao mean P.7 mmHg MV V2 VTI: 48.9 cm Ao V2 VTI: 37.2 cm MVA(VTI): 2.0 cm2 ALLA(I,D): 2.7 cm2 ALLA(V,D): 2.5 cm2 AI max rock: 385.1 cm/sec LV V1 max: 142.5 cm/sec SV(LVOT): 99.0 ml AI max P.3 mmHg LV V1 max P.1 mmHg LV V1 mean P.4 mmHg AI dec slope: 259.7 cm/sec2 LV V1 mean: 85.0 cm/sec AI P1/2t: 434.3 msec LV V1 VTI: 30.7 cm PA V2 max: 91.8 cm/sec MV P1/2t-pr_phl: 109.3 msec Interpretation Summary Normal LV size. Left ventricular systolic function is normal. The estimated ejection fraction is 60 %. Stage 1 diastolic dysfunction. Ordering Physician: Con Hinds Referring Physician: JONES VELASQUEZ Performed By: Wanda Lee RDCS
--- NOTE | 2020-02-06 21:44 | MRI_ITS ---
We are attempting to reach an attending provider to discuss findings. An addendum with communication details will be sent when the communication is complete. STUDY: MRI BRAIN WITH AND WITHOUT CONTRAST REASON FOR EXAM: Female, 74 years old. cva, VISION LOSS YESTERDAY, NO HEADACHES, NO DEFICIT TECHNIQUE: Standardized multiplanar fat and water weighted pulse sequences were obtained. IV 20cc dotarem was administered for the contrast portion of the examination. COMPARISON: CT 02/06/2020 FINDINGS: There is mild cerebral atrophy with widening of the extra-axial spaces and ventricular dilatation. There are a limited number of small white matter hyperintensities, distributed throughout the deep white matter tracts of the cerebral hemispheres, consistent with mild chronic white matter ischemic changes. Large hyperintensity of the right occipital lobe demonstrates restricted diffusion consistent with an acute/subacute right posterior cerebral artery infarct. Furthermore, there are punctate hyperintensities of the paravertebral white matter of the right temporal lobe and left frontal lobe as well as a punctate hyperintensity of the cortex of the posterior right parietal lobe which demonstrate restricted diffusion consistent with acute embolic infarcts. Normal T2* images of the brain without demonstrated susceptibility artifact. There is no demonstrated hemosiderin stain. Normal bilateral basal ganglia. Normal thalami. There is no extra-axial fluid accumulation. Normal flow voids within the major intracranial circulation suggesting patency by spin echo criteria. Normal venous enhancement. There is no enhancing intra-axial or extra-axial abnormality. Normal sella turcica, pituitary gland, infundibular stalk, optic chiasm and hypothalamus. Normal tectal plate and pineal gland. Normal midbrain, mimi and medulla. Normal cerebellum. Normal basal cisterns. Normal bilateral temporal bones. Normal bilateral internal auditory canals. No demonstrated orbital abnormality, within the constraints of a routine brain study. Normal visualized paranasal sinuses. Normal calvarium and skull base. Normal visualized soft tissue structures. Normal visualized upper cervical spine. MRI/Brain W/WO Contrast IMPRESSION: Acute/subacute right posterior cerebral artery infarct in tiny embolic infarcts of the left frontal lobe, right temporal lobe, and right parietal lobe. Electronically Signed: Miller Urena MD at 17:08 EST Tel , Service support ,
[2020-02-06] MEDS: Insulin Lispro 100 UNIT/ML INSULN.PEN SC (22:36)
[2020-02-06] MEDS: Pravastatin 80 MG Tablet PO (22:37)
[2020-02-06 22:56] LABS: Bedside Glucose 177 mg/dL (70-110)
[2020-02-07] VITALS (12 sets, daily range): BP systolic 98–119; BP diastolic 51–58; PULSE 62–91; RESP 15–18; TEMP 36.5–38.1; O2SAT 94–97; BMI 40.4
[2020-02-07 05:38] LABS: Absolute Lymphocyte Count 2.11 X10^3/uL (0.83-4.51); Absolute Neutrophil Count 6.9 X10^3/uL (2.0-7.7); Basophil# 0.04 X10^3/uL; Basophil% 0.4 % (0-1); Eosinophil# 0.01 X10^3/uL; Eosinophils% 0.1 % (0-5); Hematocrit 34.3 % (37-47); Hemoglobin 10.9 g/dL (12.0-15.0); Lymphocyte # 2.11 X10^3/ul (4.0); Lymphocyte % 21.7 % (19-41); Mean Corp Hgb Conc 31.8 g/dL (32-36); Mean Corpuscular Hgb 28.7 pg (27.0-32.0); Mean Corpuscular Volume 90.3 fL (81-99); Mean Platelet Vol. 9.6 fl (6.2-12.0); Monocyte# 0.67 X10^3/uL; Monocyte% 6.9 % (0-10); NRBC Flagged by Analyzer 0 % (0-5); Neutrophil # 6.88 X10^3/uL (2.7-7.7); Neutrophil % 70.6 % (47-70); Platelet Count 392 K/mm3 (150-450); RBC Distribution Width CV 12.9 % (11.6-14.6); RBC Distribution Width SD 42.7 fl (35.1-43.9); White Blood Count 9.7 K/mm3 (4.4-11.0)
[2020-02-07 06:10] LABS: Anion Gap 6 (5-15); BUN 7 mg/dL (7-18); BUN/Creat Ratio 10.7 RATIO (10-20); Calcium,Total 8.8 mg/dL (8.5-10.1); Chloride 100 mmol/L (98-107); Cholesterol 141 mg/dL (200); Creatinine, Serum 0.66 mg/dL (0.55-1.02); EST Glomerular Filtration Rate 94 mL/min (>60); Est Glom Filt Rate - Afr Amer 114 mL/min (>60); Estimated Creatinine Clearance 39.63 ml/min; Glucose 173 mg/dL (74-106); High Density Lipoprotein 31 mg/dL; Potassium 3.8 mmol/L (3.5-5.1); Sodium Level 134 mmol/L (136-145); Triglycerides 184 mg/dL; Very Low Density Lipoprotein 37 mg/dL (5-40)
[2020-02-07] MEDS: Insulin Lispro 100 UNIT/ML INSULN.PEN SC ×3 (06:33→22:18)
[2020-02-07 06:46] LABS: Bedside Glucose 177 mg/dL (70-110)
[2020-02-07] MEDS: LINAGLIPTIN 5 MG TABLET PO (10:59)
[2020-02-07] MEDS: Enoxaparin 40 MG/0.4 ML Syringe SC (10:59)
[2020-02-07] MEDS: Aspirin 81 MG TAB.CHEW PO (10:59)
[2020-02-07 11:10] LABS: Bedside Glucose 178 mg/dL (70-110)
--- NOTE | 2020-02-07 14:01 | TELEMED_ITS ---
[facility] Telemed has confirmed receipt of a request for visit. This document confirms receipt of the order initiating the consult. To find the results of the consultation, please view the patient's reports for the scanned Telemed Consult.
--- NOTE | 2020-02-07 14:22 | PCM.PN.HOSP ---
Patient Problems: Active and Suspected Problems Stroke (Acute) Visual changes (Acute) Elevated troponin (Acute) CVA (cerebral vascular accident) (Acute) Acute cystitis (Suspected) Subjective: Vision is better today but not normal. Has a very hard time describing her sx but does state that she awoke with her Blindness. No CP/N/V/SOB. Vitals/I&O's: Vital Signs Temp Pulse Resp BP Pulse Ox 97.7 F L 72 15 102/51 L 94 02/07/20 14:00 02/07/20 14:00 02/07/20 14:00 02/07/20 14:00 02/07/20 14:00 Oxygen Flow Rate (L/min) 3 Oxygen Delivery Method Nasal Cannula Weight: 100.3 kg Body Mass Index (BMI) 40.4 Finger Stick Blood Glucose 190 Intake and Output for Last 24 Hours 02/05/20 02/06/20 02/07/20 23:59 23:59 23:59 Intake Total 300 / 300 Output Total 0 / 0 Balance 300 / 300 General: Alert, Oriented x3, Cooperative, No apparent distress, Well developed, Well nourished, - - MO WF lying in bed, resting HEENT: Atraumatic, PERRLA, EOMI, Normocephalic, EAC Clear Oral: Moist Mucosa, No Gingival or Mucosal Lesions/ Ulcerations, - - Mallamapati 2-3 Neck: Supple, No JVD, Negative Carotid Bruits, No Nodes, No Nuchal Rigidity, Trachea Midline, Thyroid Normal Size and Texture Lungs: Clear to auscultation, Normal air movement, No rhonchi, No wheeze, No rales Cardiovascular: Regular rate, Regular Rhythm, Normal S1, Normal S2, No murmurs, No Ectopic Activity, No rub noted, No Gallop Abdomen: Bowel Sounds Present, Soft, Non Tender, Non-Distended, No Hepato-splenomegaly, Obese, No hernias noted Extremities: No clubbing, No cyanosis, No edema, Capillary Refill Less than 3 Seconds, Peripheral Pulses Normal Skin: No rashes, No breakdown Musculoskeletal: No Tenderness to Palpation of Joints or Extremities, No Muscle Wasting, Arthritic Changes Lymphatic: No Cervical, Supraclavicular, or Inguinal Adenopathy Neurological: Cranial nerves II-XII grossly intact, Deep Tendon Reflexes 2+/4 and Symmetrical, Neuro grossly intact, Motor Exam 5/5 strength throughout, Muscle tone normal, Sensory exam intact to light touch and pain, Coordination normal Psych/Mental Status: Appropriate, Flat Affect Microbiology Past 72 Hours 02/06/20 23:30 Mucosa - Nose SARS-CoV-2 Antigen (Rapid) - Final Laboratory Results 02/06/20 18:52: POC Glucose 190 H 02/06/20 19:10: WBC 11.2 H, RBC 4.22, Hgb 12.1, Hct 38.0, MCV 90.0, MCH 28.7, MCHC 31.8 L, RDW Std Deviation 41.1, RDW Coeff of Landy 12.6, Plt Count 439, MPV 9.4, Immature Gran % (Auto) 0.400, Neut % (Auto) 80.2 H, Lymph % (Auto) 14.4 L, [place] % (Auto) 4.6, Eos % (Auto) 0.0, Baso % (Auto) 0.4, Absolute Neuts (auto) 9.0 H, Absolute Lymphs (auto) 1.62, Nucleated RBC % 0 02/06/20 19:10: PT 13.5, INR 1.1, APTT 26.6 02/06/20 19:10: Sodium 135 L, Potassium 4.1, Chloride 102, Carbon Dioxide 27.0, Anion Gap 6, BUN 6 L, Creatinine 0.70, Estim Creat Clear Calc 37.81, Est GFR (MDRD) Af Amer 106, Est GFR (MDRD) Non-Af 88, BUN/Creatinine Ratio 8.6 L, Glucose 182 H, Calcium 9.3, Troponin I 0.137 H 02/06/20 22:31: POC Glucose 177 H 02/06/20 22:34: Troponin I 0.227 H 02/07/20 00:55: Troponin I 0.315 H 02/07/20 05:15: WBC 9.7, RBC 3.80 L, Hgb 10.9 L, Hct 34.3 L, MCV 90.3, MCH 28.7, MCHC 31.8 L, RDW Std Deviation 42.7, RDW Coeff of Landy 12.9, Plt Count 392, MPV 9.6, Immature Gran % (Auto) 0.300, Neut % (Auto) 70.6 H, Lymph % (Auto) 21.7, [place] % (Auto) 6.9, Eos % (Auto) 0.1, Baso % (Auto) 0.4, Absolute Neuts (auto) 6.9, Absolute Lymphs (auto) 2.11, Nucleated RBC % 0 02/07/20 05:15: Sodium 134 L, Potassium 3.8, Chloride 100, Carbon Dioxide 28.0, Anion Gap 6, BUN 7, Creatinine 0.66, Estim Creat Clear Calc 39.63, Est GFR (MDRD) Af Amer 114, Est GFR (MDRD) Non-Af 94, BUN/Creatinine Ratio 10.7, Glucose 173 H, Calcium 8.8, Troponin I 0.268 H, Triglycerides 184, Cholesterol 141, LDL Cholesterol 73, VLDL Cholesterol 37, HDL Cholesterol 31 L 02/07/20 06:33: POC Glucose 177 H 02/07/20 10:59: POC Glucose 178 H Current Medications Acetaminophen (Acetaminophen 325 Mg Tablet) 650 mg PO Q6H PRN PRN PRN Reason: Pain Score 1-10/Temp > 100.7 F Aspirin (Aspirin 81 Mg Tab.Chew) 81 mg PO DAILY@0800 [facility] Last Admin: 02/07/20 10:59 Dose: 81 mg Documented by: Dextrose (Dextrose 50%-Water 25 Gm/50 Ml Disp.Syrin) 0 gm IV X1 PRN; Protocol PRN Reason: Hypoglycemia Enoxaparin Sodium (Enoxaparin 40 Mg/0.4 Ml Syringe) 40 mg SC DAILY [facility] Last Admin: 02/07/20 10:59 Dose: 40 mg Documented by: Glucagon (Glucagon 1 Mg/Ml Syringe) 1 mg IM .X1 PRN PRN Reason: Hypoglycemia Hydralazine HCl (Hydralazine 20 Mg/Ml Vial) 5 mg IV Q30M PRN PRN Reason: to maintain BP goals Sodium Chloride () 250 mls @ 15 mls/hr IV .[id number] PRN PRN Reason: Saline Flush Sodium Chloride () 250 mls @ 15 mls/hr IV .[id number] PRN PRN Reason: Additional IVPB Infusion Insulin Human Lispro (Insulin Lispro 100 Unit/Ml Insuln.Pen) 0 unit SC ACHS [facility]; Protocol Last Admin: 02/07/20 11:00 Dose: 1 u Documented by: Labetalol HCl (Labetalol (Prefilled) 20 Mg/4 Ml) 10 - 20 mg IV Q10M PRN PRN PRN Reason: to Maintain BP Goals Linagliptin (Linagliptin 5 Mg Tablet) 5 mg PO DAILY [facility] Last Admin: 02/07/20 10:59 Dose: 5 mg Documented by: Ondansetron HCl (Ondansetron 4 Mg/2 Ml Vial) 4 mg IV Q8H PRN PRN PRN Reason: NAUSEA/VOMITING Pravastatin Sodium (Pravastatin 80 Mg Tablet) 80 mg PO QHS [facility] Last Admin: 02/06/20 22:37 Dose: 80 mg Documented by: Prochlorperazine Edisylate (Prochlorperazine 10 Mg/2 Ml Vial) 5 mg IV Q6H PRN PRN PRN Reason: NAUSEA/VOMITING Senna/Docusate Sodium (Senna/Docusate Sodium 1 Tablet) 2 tablet PO BID PRN PRN PRN Reason: Constipation Sodium Chloride (0.9% Saline Lock 10 Ml Syringe) 10 - 40 ml IV UD PRN PRN Reason: SALINE FLUSH STROKE Vital Signs/Narrative: Vital Signs Temp Pulse Resp BP Pulse Ox 02/07/20 14:00 97.7 F L 72 15 102/51 L 94 Medical Necessity - Tobacco Use Smoking Status: Never smoker Assessment/Plan All Active Problems Stroke (Acute) Visual changes (Acute) Elevated troponin (Acute) CVA (cerebral vascular accident) (Acute) Acute R Occipital Stroke -MRI shows R Occipital infarct -CTA was suggestive of this yesterday but no cutoffs -ASA/Statin -? Plavix for 21 days -BP is controlled -sx are resolving -ECHO with EF 60% and stage 1 diastolic dysfunction -will need event monitor at d/c -cancel Ophthalmology consult -SOC consult -will need neuro f/u as outpt Troponin elevation -pt asymptomatic -EKG with no acute ischemic changes -continue Losartan/Statin/ASA -hold on BB for now with borderline BP -? stress vs cath and now vs later since pt is asymptomatic with a new stroke -Cards consulted HPL/HTN -change statin to Lipitor -LDL is 73 on 80 of pravachol -continue losartan -add BB if able tomorrow DM-2 -check A1c -continue home Tresiba and SSI for now -hold metformin with contrast DVT Prophylaxis -Lovenox Code Status -Full Inpatient E&M: 30434 Subs Hosp L3
--- NOTE | 2020-02-07 14:49 | CASEMGMT ---
Insurance review for hospitals In-network with [employer] M[employer] PPO Insurance if transfer is recommended is as follows: [facility], [facility], [facility], [facility], [facility], [facility], [facility] ([facility]), and . Renato BSN RN CM
--- NOTE | 2020-02-07 15:29 | CASEMGMT ---
RN TAM PASTING MACHINE OFFBEARER CM to room to meet with patient for initial transition planning/care coordination assessment. ZOEY TURCIOS introduced self and role at [facility]. Pt voices understanding and consents to assessment at this time. Pt sitting up in recliner chair in no distress at this time. Pt is A/O at this time and answers all questions appropriately. Care providers, pharmacy, and demographics verified/updated at this time. PCP: Dr Heller Specialists: None Preferred Pharmacy: [facility] Insurance: [facility] Prescription Benefit: Yes Living Will/HPOA: Has both LW and Healthcare POA, who is her , Mehrdad. Daughter, Tereza Barr is listed as alternative. LNOK: , Mehrdad. 3 adult children. Living Arrangements: Lives w/her in 2-story home. Independent w/ADL'S. /pt share home mgmt tasks. able to assist w/personal care as needed. Transportation: Pt states she can drive but her prefers to drive and provides most of the transportation. DME: Denies using any DME and denies needs. HHC/SNF: No history of either. PT/OT notes have been reviewed and additional therapy recommended. Discussed HHC vs OP therapy with pt. Pt declines both, stating she does not feel she needs this. She was made aware, if in the future, she feels she would like either, to discuss this with her PCP. Pt voices understanding. Pt wishes to return home and states has no concerns with going home at time of discharge. CM to follow for any discharge planning/needs. Pt voices no concerns/needs at this time. Advised pt to ask for CM if any questions/concerns/needs arise. Voices understanding. PLAN: Home w/spousal support and discharge plans in place. Renato PERSAUD RN, CM
[2020-02-07 16:25] LABS: Bedside Glucose 140 mg/dL (70-110)
--- NOTE | 2020-02-07 17:45 | PCM.CONS.C ---
Reason for Consult Date of Consultation: 02/07/20 Reason for Consultation: Abnormal cardiac enzymes History of Present Illness: The patient is a 74 year old F who presented yesterday with a chief complaint of not being able to see. She had complained of intermittent headaches as well. She denied any chest pain or shortness breath or paroxysmal nocturnal dyspnea or pedal edema in the emergency room she was thought to be a stroke and the neurology service was consulted. She was not felt to be a candidate for any therapy. Her blood pressure was noted to be normal her EKG demonstrated normal sinus mechanism with no acute changes. Cardiac troponin enzymes were noted to be mildly abnormal. An echocardiogram performed demonstrated preserved ejection fraction of 60%. No wall motion abnormalities were noted. Due to the cardiac enzyme abnormality cardiology was called for further evaluation and management. She denies any symptoms whatsoever. [] Past Medical History Allergies/Adverse Reactions: Allergies Penicillins Allergy (Verified 02/06/20 18:43) Rash propoxyphene [From Darvon] Adverse Reaction (Verified 02/06/20 18:43) Nausea/Vom/Diarrhea Home Medications: Ambulatory Orders Medication Instructions Recorded Pravastatin Sodium 80 mg PO QHS 08/16/18 Sitagliptin Phosphate [Januvia] 50 mg PO DAILY 08/16/18 metFORMIN (XR) [Glucophage Xr] 500 mg PO BREAKFAST 08/16/18 Losartan Potassium [Cozaar] 50 mg PO DAILY 03/15/19 metFORMIN (XR) [Glucophage Xr] 1,000 mg PO DINNER 02/06/20 Past Medical History (Chronic Problems): Chronic Problems Hyperlipidemia (Chronic) Hypertension (Chronic) Type 2 diabetes mellitus (Chronic) Surgical History: cholecystectomy, herniorrhaphy Psychiatric History: No pertinent psych hx 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 - *Family History Maternal History Items: Cancer Paternal History Items: Cancer Smoking Status: Never smoker Alcohol: None Drugs: None Review of Systems - Review of Systems General: Denies: Fever, Night Sweats, Fatigue HEENT: Denies: Vision Change Cardiovascular: Denies: Chest Discomfort, Shortness of Breath, Orthopnea, PND, Peripheral Edema, Palpitations, Lightheadedness, Dizziness, Near Syncope, Syncope Respiratory: Denies: Cough, Sputum Production, Hemoptysis Gastrointestinal: Denies: Hematemesis, Hematochezia, Melena Genitourinary: Denies: Dysuria, Hematuria Muscoloskeletal: Denies: Myalgias Skin: Denies: Rash Neurological: Denies: Dizziness Psychiatric: Denies: Anxiety Endocrine: Denies: Heat Intolerance Objective: Vital Signs Temp Pulse Resp BP Pulse Ox 98 F 70 15 99/58 L 96 02/07/20 17:20 02/07/20 17:20 02/07/20 17:20 02/07/20 17:20 02/07/20 17:20 Oxygen Flow Rate (L/min) 2 Oxygen Delivery Method Nasal Cannula Weight: 221 lb 1.978 oz Body Mass Index (BMI) 40.4 Finger Stick Blood Glucose 190 Intake and Output for Last 24 Hours 02/05/20 02/06/20 02/07/20 23:59 23:59 23:59 Intake Total 660 / 660 Output Total 0 / 0 Balance 660 / 660 02/06/20 19:10: WBC 11.2 H, RBC 4.22, Hgb 12.1, Hct 38.0, MCV 90.0, MCH 28.7, MCHC 31.8 L, Plt Count 439, MPV 9.4, Immature Gran % (Auto) 0.400, Neut % (Auto) 80.2 H, Lymph % (Auto) 14.4 L, Bremer % (Auto) 4.6, Eos % (Auto) 0.0, Baso % (Auto) 0.4, Absolute Neuts (auto) 9.0 H, Nucleated RBC % 0 02/06/20 19:10: PT 13.5, INR 1.1, APTT 26.6 02/06/20 19:10: Sodium 135 L, Potassium 4.1, Chloride 102, Carbon Dioxide 27.0, Anion Gap 6, BUN 6 L, Creatinine 0.70, Est GFR (MDRD) Af Amer 106, Est GFR (MDRD) Non-Af 88, BUN/Creatinine Ratio 8.6 L, Glucose 182 H, Calcium 9.3, Troponin I 0.137 H 02/06/20 22:34: Troponin I 0.227 H 02/07/20 00:55: Troponin I 0.315 H 02/07/20 05:15: WBC 9.7, RBC 3.80 L, Hgb 10.9 L, Hct 34.3 L, MCV 90.3, MCH 28.7, MCHC 31.8 L, Plt Count 392, MPV 9.6, Immature Gran % (Auto) 0.300, Neut % (Auto) 70.6 H, Lymph % (Auto) 21.7, Bremer % (Auto) 6.9, Eos % (Auto) 0.1, Baso % (Auto) 0.4, Absolute Neuts (auto) 6.9, Nucleated RBC % 0 02/07/20 05:15: Sodium 134 L, Potassium 3.8, Chloride 100, Carbon Dioxide 28.0, Anion Gap 6, BUN 7, Creatinine 0.66, Est GFR (MDRD) Af Amer 114, Est GFR (MDRD) Non-Af 94, BUN/Creatinine Ratio 10.7, Glucose 173 H, Calcium 8.8, Troponin I 0.268 H, Triglycerides 184, Cholesterol 141, LDL Cholesterol 73, VLDL Cholesterol 37, HDL Cholesterol 31 L Rhythm: EKG: Normal sinus rhythm ECHO: Stress Test: Cardiac Cath: PCI: CT Surgery: Holter monitor: EPS: PPM: CXR: Chest CT Scan: Assessment/Plan 1. Abnormal cardiac enzymes Patient is noted to have mildly abnormal cardiac enzymes with no EKG changes but also noted to have preserved left ventricular ejection fraction. At this particular time with her recent cerebrovascular accident out suggest that we perform a pharmacologic myocardial perfusion stress test. The timing will be determined but will likely be performed as an outpatient. We will continue her on the aspirin and clopidogrel Initiate statin therapy Thank you for allowing me to participate in the care of your patient. Please don't hesitate to call if any issues arise.
[2020-02-07] MEDS: Atorvastatin Calcium 80 MG Tablet PO (22:18)
[2020-02-07 22:31] LABS: Bedside Glucose 151 mg/dL (70-110)
[2020-02-08 02:45] VITALS: BP 116/58; PULSE 68; RESP 18; TEMP 36.6; O2SAT 95
[2020-02-08] MEDS: 0.9% Saline Lock 10 ML Syringe IV (02:45)
[2020-02-08 03:06] VITALS: PULSE 77
[2020-02-08 06:36] VITALS: BP 120/60; PULSE 75; RESP 18; TEMP 36.6; O2SAT 96
[2020-02-08] MEDS: Insulin Lispro 100 UNIT/ML INSULN.PEN SC (06:40)
[2020-02-08 06:50] LABS: Bedside Glucose 172 mg/dL (70-110)
[2020-02-08 06:51] LABS: Absolute Neutrophil Count 6.9 X10^3/uL (2.0-7.7); Basophil# 0.04 X10^3/uL; Basophil% 0.4 % (0-1); Eosinophil# 0.06 X10^3/uL; Eosinophils% 0.6 % (0-5); Hematocrit 36.7 % (37-47); Hemoglobin 11.3 g/dL (12.0-15.0); Lymphocyte % 18.9 % (19-41); Mean Corp Hgb Conc 30.8 g/dL (32-36); Mean Corpuscular Hgb 28.3 pg (27.0-32.0); Mean Platelet Vol. 9.7 fl (6.2-12.0); Monocyte# 0.73 X10^3/uL; Monocyte% 7.7 % (0-10); NRBC Flagged by Analyzer 0 % (0-5); Neutrophil # 6.88 X10^3/uL (2.7-7.7); Neutrophil % 72.1 % (47-70); Platelet Count 404 K/mm3 (150-450); RBC Distribution Width CV 12.7 % (11.6-14.6); RBC Distribution Width SD 42.9 fl (35.1-43.9); Red Blood Count 3.99 M/mm3 (4.2-5.4); White Blood Count 9.5 K/mm3 (4.4-11.0)
[2020-02-08 06:56] VITALS: PULSE 72
[2020-02-08 07:16] LABS: Anion Gap 5 (5-15); BUN 8 mg/dL (7-18); BUN/Creat Ratio 14.7 RATIO (10-20); Calcium,Total 8.4 mg/dL (8.5-10.1); Chloride 101 mmol/L (98-107); Creatinine, Serum 0.54 mg/dL (0.55-1.02); EST Glomerular Filtration Rate 117 mL/min (>60); Est Glom Filt Rate - Afr Amer 141 mL/min (>60); Estimated Creatinine Clearance 39.63 ml/min; Glucose 169 mg/dL (74-106); Potassium 3.7 mmol/L (3.5-5.1); Sodium Level 136 mmol/L (136-145)
[2020-02-08 07:34] LABS: Hemoglobin A1c 7.6 % (3.8-5.6)
[2020-02-08] MEDS: LINAGLIPTIN 5 MG TABLET PO (08:32)
[2020-02-08] MEDS: Enoxaparin 40 MG/0.4 ML Syringe SC (08:32)
[2020-02-08] MEDS: Clopidogrel Bisulfate 75 MG Tablet PO (08:32)
[2020-02-08] MEDS: Aspirin 81 MG TAB.CHEW PO (08:32)
--- NOTE | 2020-02-08 10:13 | PCM.DC ---
- Discharge Diagnoses Current Active Problems: Current Active and Chronic Problems Stroke (Acute) Visual changes (Acute) Elevated troponin (Acute) CVA (cerebral vascular accident) (Acute) Hyperlipidemia (Chronic) Hypertension (Chronic) Type 2 diabetes mellitus (Chronic) You will use the following diet at home:: Calorie/Carbohydrate Controlled (specify 1200, 1400, etc), Cardiac Your food should be the consistency of: Regular Your liquids should be the consistency of: Regular/Thin Discharge Activity: May Not Drive - until cleared per neurologist Allergies/Adverse Reactions: Allergies Penicillins Allergy (Verified 02/06/20 18:43) Rash propoxyphene [From Darvon] Adverse Reaction (Verified 02/06/20 18:43) Nausea/Vom/Diarrhea Medications to take at Discharge Sitagliptin Phosphate [Januvia] 50 mg PO DAILY 08/16/18 metFORMIN (XR) [Glucophage Xr] 500 mg PO BREAKFAST 08/16/18 Losartan Potassium [Cozaar] 50 mg PO DAILY 03/15/19 metFORMIN (XR) [Glucophage Xr] 1,000 mg PO DINNER 02/06/20 Aspirin [Aspirin, Baby] 81 mg PO DAILY@0800 #30 tab.chew 02/08/20 Atorvastatin Calcium [Lipitor] 80 mg PO QHS #30 tab 02/08/20 Clopidogrel Bisulfate [Plavix] 75 mg PO DAILY 21 Days #21 tab 02/08/20 The following prescriptions were given: Aspirin [Aspirin, Baby] 81 mg PO DAILY@0800 #30 tab.chew [id number] Atorvastatin Calcium [Lipitor] 80 mg PO QHS #30 tab [id number] Clopidogrel Bisulfate [Plavix] 75 mg PO DAILY 21 Days #21 tab [facility]: [id number] Orders to be completed after discharge: 30 Day Event [employer] [[facility]] Location: None Selected Primary Care Physician: Yasmeen Heller MD [Primary Care Provider] - Please follow up with your Primary Care Physician in: 1-2 weeks for Hosptial f/u (stroke) Call today for an appt Test Results: Test results from this visit will be discussed in further detail at your follow-up appointment, if applicable. Please Follow Up With: Nahun Giles MD When: 4-6 weeks Please Follow Up With: Job Serra MD When: 2-4 weeks for Stroke
--- NOTE | 2020-02-08 10:17 | DS.PCM_ITS ---
Discharge Date and Diagnosis - Problem List Patient Problems: Active and Suspected Problems Stroke (Acute) Visual changes (Acute) Elevated troponin (Acute) CVA (cerebral vascular accident) (Acute) Acute cystitis (Suspected) Date of Admission: 02/06/20 Date of Discharge: 02/08/20 - Primary Discharge Diagnosis Acute Problems: Active Problems Stroke (Acute) Visual changes (Acute) Elevated troponin (Acute) CVA (cerebral vascular accident) (Acute) Suspected Problems: Suspected Problems Acute cystitis (Suspected) - Secondary Discharge Diagnosis Chronic Problems: Chronic Problems Hyperlipidemia (Chronic) Hypertension (Chronic) Type 2 diabetes mellitus (Chronic) Hospital Course and Treatment Imaging Results: TUDY: CTA HEAD AND NECK WITH CONTRAST REASON FOR EXAM: Female, 74 years old. Left-sided vision loss since 6:00 AM. RADIATION DOSAGE (If Supplied By Facility): CTDIvol = ( 27.36 ) mGy, DLP = ( 782.31 ) mGycm TECHNIQUE: CT angiography was performed with a multi-detector CT scanner. Data acquisition was obtained from the skull base through the vertex following intravenous administration of IV 100mL Isovue-370. MIP images were reconstructed from the axial data set. Post-processing of the angiographic images was performed, with multiplanar reformation and 3D reconstruction. Individualized dose optimization techniques were used for this CT. COMPARISON: CT of the head, 02/06/2020. FINDINGS: Normal bilateral petrous carotid arteries. There is calcified plaque formation of the right cavernous carotid artery, without a cross-sectional luminal stenosis. There is calcified plaque formation of the left cavernous carotid artery, with a mild stenosis (less than 50%). Normal right A1 segments of the anterior cerebral artery. Normal left A1 segments of the anterior cerebral artery. Normal intact anterior communicating artery (ACOM). Normal bilateral A2 segments of the anterior cerebral arteries. Normal right M1 and M2 segments of the middle cerebral arteries, with a normal M1 bifurcation. Normal left M1 and M2 segments of the middle cerebral arteries, with a normal M1 bifurcation. There is non-visualization of the right posterior communicating artery (PCOM). There is non-visualization of the left posterior communicating artery (PCOM). Normal bilateral vertebral arteries. Normal basilar artery with a normal basilar bifurcation. The visualized bilateral superior cerebellar (SCA) arteries are normal. Normal bilateral P1, P2 and visualized P3 segments of the posterior cerebral arteries. There is no demonstrated aneurysm of the lime of Vargas. Question a minimal low attenuation in the right occipital lobe which may represent an acute infarct. AORTIC ARCH: Minimal atherosclerotic changes of the aortic arch without dissection or aneurysm. Normal origins of the brachiocephalic, left common carotid, and left subclavian arteries. RIGHT CAROTID ARTERIES: Tortuosity of the distal right common carotid artery (CCA which bifurcates posterior to the hypopharynx.). There is minimal calcifications at the carotid bifurcation extending into the carotid bulb. There is no significant stenosis. Normal origin of the right internal carotid (ICA) artery without a hemodynamically significant stenosis. Tortuosity of the visualized cervical portion of the right internal carotid artery. Normal origin of the right external carotid artery (ECA). LEFT CAROTID ARTERIES: Tortuosity of the distal left common carotid artery (CCA) which bifurcates posterior to the hypopharynx.. There is movement minimal calcified plaque in the carotid bulb without significant stenosis. Normal origin of the left internal carotid (ICA) artery without a hemodynamically significant stenosis. Tortuosity of the visualized cervical portion of the left internal carotid artery. Normal origin of the left external carotid artery (ECA). VERTEBRAL ARTERIES: Normal bilateral vertebral arteries. CT/CTA Head AND Neck W/ Contrast IMPRESSION: 1. Normal lime of [place] without evidence of intracranial aneurysm or occlusion. 2. Mild atherosclerotic changes of the bilateral carotid arteries without significant stenosis. 3. Question minimal low attenuation in the right occipital lobe. Electronically Signed: William Lopez DO at 19:39 EST Tel [phone], Service support , Reason For Study: TIA/CVA Procedure This was a 2D Doppler, Color Flow transthoracic echocardiogram. Exam performed portable in patient room. Left Ventricle Normal LV size. Left ventricular systolic function is normal. The estimated ejection fraction is 60 %. Stage 1 diastolic dysfunction. No regional wall motion abnormalities noted. Right Ventricle Normal RV size. Normal systolic function. Atria Normal left atrium. Normal right atrium. Bubble contrast study negative for right to left interatrial shunt. Mitral Valve There is moderate to severe mitral annular calcification. Tricuspid Valve Normal tricuspid valve. Aortic Valve The aortic valve is not well visualized. Mild (1+) aortic valve insufficiency. Pulmonic Valve Normal pulmonic valve. Great Vessels Normal aortic root. Pericardium/Pleural No pericardial effusion. Medication Performed a rapid injection of agitated mix of 9 cc saline and 1cc air to assess for atrial septal defect. Diluted definity 3ml given slow IV push to enhance endocardial definition. MMode/2D Measurements & Calculations LVIDd: 3.9 cm IVSd: 1.1 cm LVOT diam: 2.0 cm LVIDs: 2.7 cm LVPWd: 1.0 cm RVDd: 3.2 cm FS: 31.3 % LVOT area: 3.2 cm2 ____ Ao root diam: 3.1 cm LAV(MOD-bp): 47.7 ml LVAd ap4: 24.3 cm2 LAV(MOD-bp) Indexed: 24.2 ml/m2 EDV(MOD- sp4): 68.1 ml LAV(MOD-sp2): 46.3 ml EDV(sp4- el): 68.7 ml LAV(MOD-sp4): 46.1 ml LVAs ap4: 14.0 cm2 ESV(MOD- sp4): 27.1 ml ESV(sp4- el): 27.0 ml EF(MOD- sp4): 60.2 % EF(sp4- el): 60.7 % _ SV(MOD-sp4): 41.0 ml SV(sp4-el): 41.7 ml LA A4 area: 19.8 cm2 _ LA dimension(2D): 3.4 cm RA A4 area: 16.7 cm2 Time Measurements MV dec time: 0.31 sec Doppler Measurements & Calculations MV E max rock: 127.6 cm/sec Lat Peak E' Rock: 9.1 cm/sec Med Peak E' Rock: 7.8 cm/sec MV A max rock: 168.3 cm/sec E/E' lat: 14.1 E/E' med: 16.4 MV E/A: 0.76 _ MV V2 max: 179.0 cm/sec MV P1/2t max rock: 128.6 cm/sec Ao V2 max: 184.0 cm/sec MV max P.8 mmHg MV P1/2t: 108.1 msec Ao max P.5 mmHg MV V2 mean: 99.6 cm/sec MV dec slope: 348.4 cm/sec2 Ao V2 mean: 133.8 cm/sec MV mean P.6 mmHg MVA(P1/2t): 2.0 cm2 Ao mean P.7 mmHg MV V2 VTI: 48.9 cm Ao V2 VTI: 37.2 cm MVA(VTI): 2.0 cm2 ALLA(I,D): 2.7 cm2 ALLA(V,D): 2.5 cm2 _ AI max rock: 385.1 cm/sec LV V1 max: 142.5 cm/sec SV(LVOT): 99.0 ml AI max P.3 mmHg LV V1 max P.1 mmHg LV V1 mean P.4 mmHg AI dec slope: 259.7 cm/sec2 LV V1 mean: 85.0 cm/sec AI P1/2t: 434.3 msec LV V1 VTI: 30.7 cm ___ PA V2 max: 91.8 cm/sec MV P1/2t-pr_phl: 109.3 msec Interpretation Summary Normal LV size. Left ventricular systolic function is normal. The estimated ejection fraction is 60 %. Stage 1 diastolic dysfunction. Ordering Physician: Con Hinds Referring Physician: JONES VELASQUEZ Performed By: Wanda Lee RDCS STUDY: MRI BRAIN WITH AND WITHOUT CONTRAST REASON FOR EXAM: Female, 74 years old. cva, VISION LOSS YESTERDAY, NO HEADACHES, NO DEFICIT TECHNIQUE: Standardized multiplanar fat and water weighted pulse sequences were obtained. IV 20cc dotarem was administered for the contrast portion of the examination. COMPARISON: CT 02/06/2020 FINDINGS: There is mild cerebral atrophy with widening of the extra-axial spaces and ventricular dilatation. There are a limited number of small white matter hyperintensities, distributed throughout the deep white matter tracts of the cerebral hemispheres, consistent with mild chronic white matter ischemic changes. Large hyperintensity of the right occipital lobe demonstrates restricted diffusion consistent with an acute/subacute right posterior cerebral artery infarct. Furthermore, there are punctate hyperintensities of the paravertebral white matter of the right temporal lobe and left frontal lobe as well as a punctate hyperintensity of the cortex of the posterior right parietal lobe which demonstrate restricted diffusion consistent with acute embolic infarcts. Normal T2* images of the brain without demonstrated susceptibility artifact. There is no demonstrated hemosiderin stain. Normal bilateral basal ganglia. Normal thalami. There is no extra-axial fluid accumulation. Normal flow voids within the major intracranial circulation suggesting patency by spin echo criteria. Normal venous enhancement. There is no enhancing intra-axial or extra-axial abnormality. Normal sella turcica, pituitary gland, infundibular stalk, optic chiasm and hypothalamus. Normal tectal plate and pineal gland. Normal midbrain, mimi and medulla. Normal cerebellum. Normal basal cisterns. Normal bilateral temporal bones. Normal bilateral internal auditory canals. No demonstrated orbital abnormality, within the constraints of a routine brain study. Normal visualized paranasal sinuses. Normal calvarium and skull base. Normal visualized soft tissue structures. Normal visualized upper cervical spine. 02/07/20 1708 Date cc: Dr. Jones Velasquez MD; Dr. Con Hinds MD ~* Signed ADDENDUM by Dr. Miller Urena MD on 02/07/20 at 1708 MRI/Brain W/WO Contrast IMPRESSION: Acute/subacute right posterior cerebral artery infarct in tiny embolic infarcts of the left frontal lobe, right temporal lobe, and right parietal lobe. N.B. : The above information has been verbally conveyed by Miller Urena MD to Gregoria Nance (Charge Nurse), RN, on 02/07/2020 17:11:46 (ET). Cardiology Neurology Operations: None Summary of Care Provided: Mrs. Wilson is a 74 year old WF who presented to the ED on 02/06/2020 with Blindness that was present upon waking that am which was about 12 hrs prior to presentation. She had no other neurological sx. A CT/CTA done in the ED showed no acute cut offs but did show minimal low attenuation in the R occipital lobe. An ECHO was done and showed a normal EF at 60% and stage 1 diastolic dysfunction but was otherwise WNL. 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 She was on tele for her entire admission and was not noted to have any arrhythmia. Neurology was consulted and recommended DAPT for 21 days and then ASA only 81 mg. An event monitor at d/c and f/u with outpt neurology with aggressive risk factor mgt. Her LDL on pravastatin was 73 so we did switch her to Lipitor 80 to attain a goal of < 70. Her A1c was noted to be 7.6 and she will need a bit more strict diabetic mgt as an outpt. BP was good throughout her stay. She also had elevation of her cardiac enzymes but no CP or SOB during her stay. Cardiology did evaluate her and agrees that she needs f/u stress testing but we will wait 4-6 weeks unless she is symptomatic with her new stroke. She will have f/u with Dr. Giles in 4-6 weeks. A f/u appt with Neurology in 2-4 weeks and with her PCP in 1-2 weeks. This was all reviewed with Mrs. Jason and her and they voiced understanding. She was d/c in stable condition. 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 Discussed diagnosis again with pt and overall plan. She requested that I call her and update him as well. - Physical Exam Vitals/I&O's: Vital Signs Temp Pulse Resp BP Pulse Ox 97.8 F 72 18 120/60 96 02/08/20 06:36 02/08/20 06:56 02/08/20 06:36 02/08/20 06:36 02/08/20 06:36 Oxygen Flow Rate (L/min) 2 Oxygen Delivery Method Nasal Cannula Weight: 100.3 kg Body Mass Index (BMI) 40.4 Finger Stick Blood Glucose 190 Intake and Output for Last 24 Hours 02/06/20 02/07/20 02/08/20 23:59 23:59 23:59 Intake Total 780 / 780 100 / 100 Output Total 0 / 0 Balance 780 / 780 100 / 100 General: Alert, Oriented x3, Cooperative, No apparent distress, Well developed, Well nourished HEENT: Atraumatic, PERRLA, EOMI, Normocephalic, EAC Clear Oral: Moist Mucosa, No Gingival or Mucosal Lesions/ Ulcerations, - - mallampati 2-3 Neck: Supple, Trachea Midline, Thyroid Normal Size and Texture Lungs: Clear to auscultation, Normal air movement, No wheeze, No rales Cardiovascular: Regular rate, Regular Rhythm, Normal S1, Normal S2, No murmurs, No Ectopic Activity, No rub noted, No Gallop Abdomen: Bowel Sounds Present, Soft, Non Tender, Non-Distended, No Hepato- splenomegaly, Obese, No hernias noted Extremities: No clubbing, No cyanosis, No edema, Capillary Refill Less than 3 Seconds, Peripheral Pulses Normal Skin: No rashes, No breakdown Musculoskeletal: No Tenderness to Palpation of Joints or Extremities, No Muscle Wasting, Arthritic Changes Lymphatic: No Cervical, Supraclavicular, or Inguinal Adenopathy Neurological: Cranial nerves II-XII grossly intact, Deep Tendon Reflexes 2+/4 and Symmetrical, Neuro grossly intact, Muscle tone normal, Sensory exam intact to light touch and pain, Coordination normal, - - some visual impairment Psych/Mental Status: Normal Affect, Appropriate, Alert and oriented to time, place, person, mood and affect Microbiology Past 72 Hours 02/06/20 23:30 Mucosa - Nose SARS-CoV-2 Antigen (Rapid) - Final Laboratory Results 02/07/20 10:59: POC Glucose 178 H 02/07/20 16:18: POC Glucose 140 H 02/07/20 22:16: POC Glucose 151 H 02/08/20 06:00: WBC 9.5, RBC 3.99 L, Hgb 11.3 L, Hct 36.7 L, MCV 92.0, MCH 28.3, MCHC 30.8 L, RDW Std Deviation 42.9, RDW Coeff of Landy 12.7, Plt Count 404, MPV 9.7, Immature Gran % (Auto) 0.300, Neut % (Auto) 72.1 H, Lymph % (Auto) 18.9 L, [place] % (Auto) 7.7, Eos % (Auto) 0.6, Baso % (Auto) 0.4, Absolute Neuts (auto) 6.9, Absolute Lymphs (auto) 1.80, Nucleated RBC % 0 02/08/20 06:00: Sodium 136, Potassium 3.7, Chloride 101, Carbon Dioxide 30.0, Anion Gap 5, BUN 8, Creatinine 0.54 L, Estim Creat Clear Calc 39.63, Est GFR (MDRD) Af Amer 141, Est GFR (MDRD) Non-Af 117, BUN/Creatinine Ratio 14.7, Glucose 169 H, Calcium 8.4 L 02/08/20 06:00: Hemoglobin A1c 7.6 H 02/08/20 06:29: POC Glucose 172 H Current Medications Acetaminophen (Acetaminophen 325 Mg Tablet) 650 mg PO Q6H PRN PRN PRN Reason: Pain Score 1-10/Temp > 100.7 F Aspirin (Aspirin 81 Mg Tab.Chew) 81 mg PO DAILY@0800 [facility] Last Admin: 02/08/20 08:32 Dose: 81 mg Documented by: Atorvastatin Calcium (Atorvastatin Calcium 80 Mg Tablet) 80 mg PO QHS [facility] Last Admin: 02/07/20 22:18 Dose: 80 mg Documented by: Clopidogrel Bisulfate (Clopidogrel Bisulfate 75 Mg Tablet) 75 mg PO DAILY [facility] Last Admin: 02/08/20 08:32 Dose: 75 mg Documented by: Dextrose (Dextrose 50%-Water 25 Gm/50 Ml Disp.Syrin) 0 gm IV X1 PRN; Protocol PRN Reason: Hypoglycemia Enoxaparin Sodium (Enoxaparin 40 Mg/0.4 Ml Syringe) 40 mg SC DAILY [facility] Last Admin: 02/08/20 08:32 Dose: 40 mg Documented by: Glucagon (Glucagon 1 Mg/Ml Syringe) 1 mg IM .X1 PRN PRN Reason: Hypoglycemia Hydralazine HCl (Hydralazine 20 Mg/Ml Vial) 5 mg IV Q30M PRN PRN Reason: to maintain BP goals Sodium Chloride () 250 mls @ 15 mls/hr IV .[id number] PRN PRN Reason: Saline Flush Sodium Chloride () 250 mls @ 15 mls/hr IV .[id number] PRN PRN Reason: Additional IVPB Infusion Insulin Human Lispro (Insulin Lispro 100 Unit/Ml Insuln.Pen) 0 unit SC ACHS [facility]; Protocol Last Admin: 02/08/20 06:40 Dose: 1 u Documented by: Labetalol HCl (Labetalol (Prefilled) 20 Mg/4 Ml) 10 - 20 mg IV Q10M PRN PRN PRN Reason: to Maintain BP Goals Linagliptin (Linagliptin 5 Mg Tablet) 5 mg PO DAILY [facility] Last Admin: 02/08/20 08:32 Dose: 5 mg Documented by: Ondansetron HCl (Ondansetron 4 Mg/2 Ml Vial) 4 mg IV Q8H PRN PRN PRN Reason: NAUSEA/VOMITING Prochlorperazine Edisylate (Prochlorperazine 10 Mg/2 Ml Vial) 5 mg IV Q6H PRN PRN PRN Reason: NAUSEA/VOMITING Senna/Docusate Sodium (Senna/Docusate Sodium 1 Tablet) 2 tablet PO BID PRN PRN PRN Reason: Constipation Sodium Chloride (0.9% Saline Lock 10 Ml Syringe) 10 - 40 ml IV UD PRN PRN Reason: SALINE FLUSH Last Admin: 02/08/20 02:45 Dose: 10 ml Documented by: Discharge Activity: May Not Drive - until cleared per neurologist Home Medications: Medications to take at Discharge Sitagliptin Phosphate [Januvia] 50 mg PO DAILY 08/16/18 metFORMIN (XR) [Glucophage Xr] 500 mg PO BREAKFAST 08/16/18 Losartan Potassium [Cozaar] 50 mg PO DAILY 03/15/19 metFORMIN (XR) [Glucophage Xr] 1,000 mg PO DINNER 02/06/20 Aspirin [Aspirin, Baby] 81 mg PO DAILY@0800 #30 tab.chew 02/08/20 Atorvastatin Calcium [Lipitor] 80 mg PO QHS #30 tab 02/08/20 Clopidogrel Bisulfate [Plavix] 75 mg PO DAILY 21 Days #21 tab 02/08/20 Following Prescriptions Were Given to Patient: Aspirin [Aspirin, Baby] 81 mg PO DAILY@0800 #30 tab.chew Transmission Status: Pending to [id number] Atorvastatin Calcium [Lipitor] 80 mg PO QHS #30 tab Transmission Status: Pending to [id number] Clopidogrel Bisulfate [Plavix] 75 mg PO DAILY 21 Days #21 tab [id number] Other Amb Orders: 30 Day Event Recorder Preventi [[facility]] Location: None Selected Primary Care Physician: Jones Velasquez MD [Primary Care Provider] - Please follow up with your Primary Care Physician in: 1-2 weeks for Hosptial f/u (stroke) Call today for an appt Please Follow Up With: Nahun Giles MD When: 4-6 weeks Please Follow Up With: Job Serra MD When: 2-4 weeks for Stroke Medical Necessity - Tobacco Use Smoking Status: Never smoker Meaningful Use Info Meaningful Use Diagnoses (Choose all that apply): Ischemic CVA - CVA Therapy Assessed for PT,OT and/or ST?: Yes - Ischemic Stroke Antithrombotic order at d/c?: Yes Dx of Atrial fib/flutter?: No Anticoagulant at discharge?: No Reason anticoagulant not ordered: Treatment not Indicated Statins at discharge?: Yes Primary Dx Acute Ischemic CVA?: Yes IV tPA ordered during stay?: No Reason IV t-PA not ordered: Treatment not Indicated Inpatient E&M: [id number] Disch Hosp
--- NOTE | 2020-02-08 10:19 | CASEMGMT ---
SW completed a PHQ 9 with patient as she had a Stroke. She scored a 3 which indicates minimal depression. She did not feel the need for any counseling resources. Raquel BHAGAT MSW
[2020-02-08 10:30] VITALS: BMI 40.4
[2020-02-08 10:33] VITALS: O2SAT 92
[2020-02-08 10:35] VITALS: BP 127/68; PULSE 80; RESP 18; TEMP 36.6; O2SAT 93
--- NOTE | 2020-02-08 11:30 | PHA.DC.MC ---
Pharmacy Service has performed discharge medication reconciliation and counseling for this patient. 1. ASPIRIN 81MG PO DAILY 2. CLOPIDOGREL 75MG PO DAILY X 21 DAYS 3. ATORVASTATIN 80MG PO QHS The patient's discharge medication list was reviewed for discrepancies and discrepancies were resolved. Home Medications Sitagliptin Phosphate [Januvia] 50 mg PO DAILY 08/16/18 metFORMIN (XR) [Glucophage Xr] 500 mg PO BREAKFAST 08/16/18 Losartan Potassium [Cozaar] 50 mg PO DAILY 03/15/19 metFORMIN (XR) [Glucophage Xr] 1,000 mg PO DINNER 02/06/20 Aspirin [Aspirin, Baby] 81 mg PO DAILY@0800 #30 tab.chew 02/08/20 Atorvastatin Calcium [Lipitor] 80 mg PO QHS #30 tab 02/08/20 Clopidogrel Bisulfate [Plavix] 75 mg PO DAILY 21 Days #21 tab 02/08/20 The patient was counseled on the following discharge medications and changes in medications for homegoing were reviewed. The Reason for Use, instructions for use, and potential side effects were reviewed for all new medications. The patient's questions regarding all of their medications were answered. The patient was able to verbally demonstrate an understanding of their discharge medications.
--- NOTE | 2020-02-08 11:34 | CASEMGMT ---
ZOEY TURCIOS NOTE: Pt being discharged. To room to discuss discharge planning. Pt denies any needs/concers/questions for RN TAM. She confirms she does not want HHC or OP therapy. Renato BERMUDEZ CM
== END 2020-02-08 12:18 | disposition home or self-care (01) | DRG 65 ==
LOC: ED 20:36 → PCU 20:57
PROVIDERS: Admitting Provider Hospitalist; Emergency Provider Emergency Medicine; PCP Internal Medicine; Referring Provider Hospitalist; Visit Provider Internal Medicine
DX: I63.531 Cerebral infarction due to unspecified occlusion or stenosis of right posterior cerebral artery (principal); Z68.41 Body mass index [BMI] 40.0-44.9, adult; I10 Essential (primary) hypertension; E78.5 Hyperlipidemia, unspecified; E11.9 Type 2 diabetes mellitus without complications; R74.8 Abnormal levels of other serum enzymes; H54.62 Unqualified visual loss, left eye, normal vision right eye; R77.8 Other specified abnormalities of plasma proteins; E66.01 Morbid (severe) obesity due to excess calories
CPT/HCPCS: 36415; 70450; 70496; 70498; 70553; 71045; 80048; 80061; 82962; 83036; 84484; 85025; 85610; 85730; 87426; 93005; 93306; 94762; 97110; 97162; 97166; 97530; 97535; 97802; 99285; A9575; Q9957; Q9967; A4216; C8929; J2405

== ENCOUNTER → 2020-02-14 10:20 | Outpatient (CLI) | payer MEDICARE, SELFPAY ==
[2020-02-13 10:24] VITALS: BMI 41.8
[2020-02-14 11:28] LABS: Thyroid Stim Hormone (TSH) 5.16 uIU/mL (0.358-3.74)
== END ==
PROVIDERS: PCP Internal Medicine; Referring Provider Psychiatry & Neurology Neurology; Visit Provider Psychiatry & Neurology Neurology
DX: E78.5 Hyperlipidemia, unspecified (principal); G25.0 Essential tremor
CPT/HCPCS: 36415; 84443

== ENCOUNTER 2020-04-01 06:57 | Day surgery (SDC) | payer MEDICARE, SELFPAY ==
[2020-03-07 11:27] VITALS: BMI 42.3
[2020-03-15 11:23] LABS: Absolute Lymphocyte Count 1.61 X10^3/uL (0.83-4.51); Absolute Neutrophil Count 6.5 X10^3/uL (2.0-7.7); Basophil# 0.08 X10^3/uL; Basophil% 0.9 % (0-1); Eosinophil# 0.22 X10^3/uL; Eosinophils% 2.4 % (0-5); Hemoglobin 12.8 g/dL (12.0-15.0); Lymphocyte # 1.61 X10^3/ul (4.0); Lymphocyte % 17.8 % (19-41); Mean Corp Hgb Conc 30.5 g/dL (32-36); Mean Corpuscular Hgb 27.8 pg (27.0-32.0); Mean Corpuscular Volume 91.1 fL (81-99); Mean Platelet Vol. 10.1 fl (6.2-12.0); Monocyte# 0.57 X10^3/uL; Monocyte% 6.3 % (0-10); NRBC Flagged by Analyzer 0 % (0-5); Neutrophil # 6.54 X10^3/uL (2.7-7.7); Neutrophil % 72.2 % (47-70); Platelet Count 472 K/mm3 (150-450); RBC Distribution Width CV 13.2 % (11.6-14.6); RBC Distribution Width SD 44.5 fl (35.1-43.9); Red Blood Count 4.61 M/mm3 (4.2-5.4); White Blood Count 9.1 K/mm3 (4.4-11.0)
[2020-03-15 11:40] LABS: Partial Thromboplast Time 27.9 Seconds (24.1-36.2); Prothrombin Time (Protime)PT. 12.9 SECONDS (11.7-14.9)
[2020-03-15 12:04] LABS: Anion Gap 7 (5-15); BUN 9 mg/dL (7-18); BUN/Creat Ratio 13.4 RATIO (10-20); Calcium,Total 9.2 mg/dL (8.5-10.1); Chloride 103 mmol/L (98-107); Creatinine, Serum 0.67 mg/dL (0.55-1.02); EST Glomerular Filtration Rate 91 mL/min (>60); Est Glom Filt Rate - Afr Amer 110 mL/min (>60); Glucose 152 mg/dL (74-106); Sodium Level 139 mmol/L (136-145)
[2020-03-29 08:16] VITALS: BMI 42.3
--- NOTE | 2020-04-01 06:29 | HP_ITS ---
ADDENDUM by IVET Marinelli on 03/11/20 at 1657 Addendum entered and electronically signed by IVET Ascencio 03/11/20 16:57: Patient called back, patient is agreeable to proceed with diagnostic heart catheterization. This is scheduled for April 01, 2020. COVID (Procedure Consent) Procedure Criteria Procedure Criteria: Yes Elective The surgeon/proceduralist and patient have discussed in detail the risk of exposure to and/or potential harm posed by the COVID-19 virus with having a surgery/procedure at this time versus the risk of delaying the surgery/procedure. It is not possible to know either the risk of delaying the surgery or procedure or chance of getting an infection with perfect accuracy, but a joint decision was made between the patient and the surgeon/proceduralist to proceed at this time with the scheduled surgery/procedure as indicated on the consent form. Assessment & Plan 1. Subsequent non-ST elevation (NSTEMI) myocardial infarction within 4 weeks of initial infarction I22.2 Plan - IVET Ascencio With pts NSTEMI and VT that is noted on her 30 event monitor, would like to proceed with a heart cath. Pt would like to think about this. Will start her on Metoprolol, and restart her Plavix. Will follow with pt closely. Patient Instructions - IVET Ascencio Restart your plavix, I am starting you on metoprolol- this will help protect your heart and will help with the rhythm that was noted. I am asking that your have a heart cath because while in the hospital you had an elevated troponin of 0.315. With your CVA that you had it was felt that since you were no symptomatic that we talk about a stress test on an outpatient basis. You also have the 30 day event monitor looking for arrhythmias that could have contributed to you stroke. On the monitor you had an 8 beat run of beat run of ventricular tachycardia. Because of these, we would like to pursue a heart cath instead of a stress test. 2. NSVT (nonsustained ventricular tachycardia) I47.2 Plan - IVET Ascencio Pt did have 2 short runs of NSVT that she was not aware of. Would like to proceed with a heart cath with her recent NSTEMI that was noted during her hospital stay for her CVA. She would like to think about this. Will start her on metoprolol. 3. Cerebrovascular accident (CVA) due to embolism of right posterior cerebral artery I63.431 Acute/subacute right posterior cerebral artery infarct in tiny embolic infarcts of the left frontal lobe, right temporal lobe, and right parietal lobe. MRI 02/06/2020 Plan - IVET Ascencio Pt is following with PCP and neurology for this. 4. Essential hypertension I10 Plan - IVET Ascencio Blood pressure is well controlled on current medications, we do not recommend any changes at this time. 5. Hyperlipidemia E78.5 Plan - IVET Ascencio Pt will continue with High intensity statin Plan Detail Other Medications New: clopidogrel (Plavix) 75 mg PO DAILY 30 tabs 11RF metoprolol tartrate 25 mg PO BID 60 tabs 11RF Follow Up 3 Weeks (MMM) 03/11/20 9004 <Electronically signed by Sho Steele> Date _ Sho Marinelli cc: Dr. Yasmeen Heller MD ~* Signed HPI HPI History of Present Illness Details: This is a 74-year-old female that presents here today for a hospital follow-up. Patient was admitted on February 06, 2020 to [facility] for an acute right occipital lobe infarct. She was also noted to have an elevated troponin. She was discharged home on February 08, 2020. Patient was discharged home on a 30-day event monitor to look for arrhythmias. It was felt that with her abnormal troponin as she was not having any symptoms and she had a preserved ejection fraction pursue a stress test on an outpatient basis and she be discharged home on aspirin, Plavix and start a statin. Pt is seeing neurology. She is still having issues with her vision. She has talked with them about this. She has not had any chest pain but does occasionally have a pinch under her arm. She does not have any worsening SOB. She does not have any palpitations. She does not have any lightheadedness/dizziness. She does not have any edema. An 8 beat run was noted on her event monitor she was not symptomatic with this. Intake Vital Signs 12/31/20 Height 5 ft 03/07/20 Weight: 217 lb 03/07/20 BMI 42.3 03/07/20 BP 131/79 H 03/07/20 Blood Pressure Location Lt brachial 03/07/20 Position Sitting 03/07/20 Respiration 18 03/07/20 Pulse 94 03/07/20 Pulse Source Monitor 03/07/20 Pulse Oximetry (%) 98 Intake Visit Reasons: d/c PCU 02/06 (NEW to [facility]) [employer] Required: No Is patient in pain?: No Allergies Penicillins Allergy (Verified 03/07/20 11:21) Rash propoxyphene [From Darvon] Adverse Reaction (Verified 03/07/20 11:21) Nausea/Vom/Diarrhea Medications Sitagliptin Phosphate [Januvia] 50 mg PO DAILY 08/16/18 [History Confirmed 02/13/20] metFORMIN (XR) [Glucophage Xr] 500 mg PO BREAKFAST 08/16/18 [History Confirmed 03/07/20] Losartan Potassium [Cozaar] 50 mg PO DAILY 03/15/19 [History Confirmed 03/07/20] metFORMIN (XR) [Glucophage Xr] 1,000 mg PO DINNER 02/06/20 [History Confirmed 03/07/20] Aspirin [Aspirin, Baby] 81 mg PO DAILY@0800 #30 tab.chew 02/08/20 [Rx Confirmed 03/07/20] Atorvastatin Calcium [Lipitor] 80 mg PO QHS #30 tab 02/08/20 [Rx Confirmed 03/07/20] mecobalamin (vitamin B12) 10,000 mcg solution for injection 1,000 mcg IM MONTHLY ea 02/13/20 [History Confirmed 03/07/20] ondansetron HCl 4 mg tablet 4 mg PO TID PRN #90 tab 02/13/20 [Rx Confirmed 03/07/20] clopidogrel 75 mg tablet 75 mg PO DAILY #30 tab 03/07/20 [Rx Confirmed 03/07/20] metoprolol tartrate 25 mg tablet 25 mg PO BID #60 tab 03/07/20 [Rx Confirmed 03/07/20] [facility] Medical History CVA (cerebral vascular accident) (Acute 12/01/20) History of non-ST elevation myocardial infarction (NSTEMI) (Resolved 02/06/20) Essential (primary) hypertension (Chronic) Hyperlipidemia (Chronic) Type 2 diabetes mellitus (Chronic) Surgical History History of cholecystectomy (Resolved) History of hernia repair (Resolved) Family History Father Myocardial infarction Brother Myocardial infarction Mother CVA (cerebral vascular accident) Heart disease Grandmother Myocardial infarction Uncle Myocardial infarction Social History (Updated 03/09/20 @ 09:47 by Sho COONEY, PA) Smoking Status: Never smoker Electronic Cigarette Use: not used second hand exposure: Yes alcohol intake: current alcohol intake frequency: holidays/special occasions only Alcohol type: wine substance use type: does not use ROS Const Const: Negative for fatigue, weakness, fever(s) or headache(s) Eyes Eyes: Positive for change in vision; negative for blind spots, loss of peripheral vision or transient loss of vision ENT ENT: Negative for headache(s), dizziness, tinnitus or Nosebleed/epistaxis Cardio Chest Pain: No Palpitations: No Edema: None Muscle aches with walking: None Resp Respiratory: Negative for SOB with activity, SOB at rest, SOB orthopnea\SOB lying down or Cough GI GI: Negative nausea, vomiting, heartburn or vomiting blood/hematemesis : Negative for hematuria Musc Musc: Negative for muscle aches/ myalgia Neuro Neuro: Negative for dizziness, lightheadedness, near syncope, syncope, orthostatic symptoms, headache(s) or weakness Amol Hematologic/Lymphatic: Negative for easy bleeding Endo Endo: Negative for fatigue Cardiology Exam Const Appearance: cooperative, no acute distress and well developed Orientation: alert, awake and oriented x3 Head Head: normocephalic and atraumatic Mouth: moist mucous membranes Eyes General: appearance normal, both eyes and all related structures Conjunctivae: conjunctivae normal Pupils: PERRL EOM: EOM intact bilaterally Neck Neck: normal visual inspection, no lymphadenopathy and no JVD Carotids: Negative bruit Neck Mass: Negative Neck mass Chest Chest inspection: normal inspection of the chest and symmetric chest movement Auscultation: Bilateral: Clear to Auscultation Cardio Palpation: normal PMI Rate: regular rate Rhythm: regular rhythm Heart sounds: S1 normal and S2 normal; negative rub, gallop or murmur GI GI: normal to inspection, soft, no hepatosplenomegaly and bowel sounds present; negative tender Neuro General: alert, awake, oriented x3, CN's II-XI intact bilaterally and moves all extremities Extremities Pulses: Normal: Right Posterior Tibial Pulse, Left Posterior Tibial Pulse, Right Radial Pulse, Left Radial Pulse Lower Extremity Edema: None: Bilateral Psych Psychological: normal affect Assessment & Plan 1. Subsequent non-ST elevation (NSTEMI) myocardial infarction within 4 weeks of initial infarction I22.2 Plan With pts NSTEMI and VT that is noted on her 30 event monitor, would like to proceed with a heart cath. Pt would like to think about this. Will start her on Metoprolol, and restart her Plavix. Will follow with pt closely. Patient Instructions Restart your plavix, I am starting you on metoprolol- this will help protect your heart and will help with the rhythm that was noted. I am asking that your have a heart cath because while in the hospital you had an elevated troponin of 0.315. With your CVA that you had it was felt that since you were no symptomatic that we talk about a stress test on an outpatient basis. You also have the 30 day event monitor looking for arrhythmias that could have contributed to you stroke. On the monitor you had an 8 beat run of beat run of ventricular tachycardia. Because of these, we would like to pursue a heart cath instead of a stress test. 2. NSVT (nonsustained ventricular tachycardia) I47.2 Plan Pt did have 2 short runs of NSVT that she was not aware of. Would like to proceed with a heart cath with her recent NSTEMI that was noted during her hospital stay for her CVA. She would like to think about this. Will start her on metoprolol. 3. Cerebrovascular accident (CVA) due to embolism of right posterior cerebral artery I63.431 Acute/subacute right posterior cerebral artery infarct in tiny embolic infarcts of the left frontal lobe, right temporal lobe, and right parietal lobe. MRI 02/06/2020 Plan Pt is following with PCP and neurology for this. 4. Essential hypertension I10 Plan Blood pressure is well controlled on current medications, we do not recommend any changes at this time. 5. Hyperlipidemia E78.5 Plan Pt will continue with High intensity statin Plan Detail Other Medications New: clopidogrel (Plavix) 75 mg PO DAILY 30 tabs 11RF metoprolol tartrate 25 mg PO BID 60 tabs 11RF Follow Up 3 Weeks (MMM) Coding Level of Care Code Off vis,est,level 4 Diagnoses Subsequent non-ST elevation (NSTEMI) myocardial infarction within 4 weeks of initial infarction I22.2 NSVT (nonsustained ventricular tachycardia) I47.2 Cerebrovascular accident (CVA) due to embolism of right posterior cerebral artery I63.431 ??CVA mechanism: embolism ??Laterality of affected vessel: right ??Precerebral and cerebral artery: posterior cerebral artery Essential hypertension I10 Hyperlipidemia E78.5 Coding Level of Care Code Off vis,est,level 4 Diagnoses Subsequent non-ST elevation (NSTEMI) myocardial infarction within 4 weeks of initial infarction I22.2 NSVT (nonsustained ventricular tachycardia) I47.2 Cerebrovascular accident (CVA) due to embolism of right posterior cerebral artery I63.431 ??CVA mechanism: embolism ??Laterality of affected vessel: right ??Precerebral and cerebral artery: posterior cerebral artery Essential hypertension I10 Hyperlipidemia E78.5 Supplemental Info Supplemental Information Echocardiogram February 2020 demonstrates:Normal LV size. Left ventricular systolic function is normal. The estimated ejection fraction is 60 %. Stage 1 diastolic dysfunction. Labs LDL Cholesterol 73 mg/dL (0-130) 02/07/20 HDL Cholesterol 31 mg/dL (40-) L 02/07/20 Triglycerides 184 mg/dL (-199) 02/07/20 VLDL Cholesterol 37 mg/dL (5-40) 02/07/20 Diagnostics Electrocardiogram 02/06/20 Echocardiogram 02/06/20 Chest X-Ray 02/06/20
--- NOTE | 2020-04-01 08:33 | CL.D_ITS ---
Patient Name: RAMÓN CANADA Study Date: 04/01/2020 Performing: Nahun Giles MD Ht: 59.84 inches 152 cm : 1945 Wt: 216.05 lbs 98 kg Age: 74 Gender: female BSA: 1.93 PROCEDURE(S) PERFORMED ND49-FEX/COR/LV CLINICAL PROFILE AND INDICATIONS Indications: Suspected CAD Heart Failure: None Stress/Imaging Stress/Image Study Performed: No CONCLUSIONS Minimal CAD noted with preserved ejection fraction and mitral annular calcification. RECOMMENDATIONS Medical therapy DESCRIPTION OF PROCEDURE The patient arrived to the procedure lab. The risks and benefits of the procedure as well as a full d escription of our services here and current unavailability of surgical backup were fully explained to the patient and/or their significant other prior to the catheterization. The Timeout was completed, verifying the correct patient and procedure. The patient's procedural site was prepped and draped in the usual fashion. Local anesthetic was given subcutaneously to right radial region with Lidocaine 2% . Using a modified Seldinger technique, arterial access was obtained via the right radial artery, a 6 Fr sheath was inserted. Left Coronary Artery selective angiography was performed in multiple views u sing a 5 Fr. 4.0 Austin catheter. Right Coronary Artery selective angiography was then performed in mu ltiple views using a 5 Fr. 4.0 Austin catheter. Left Ventriculography was performed in ADAMES projection using a 5 Fr. Pigtail catheter. LV to AO pullback pressures were then recorded.The arterial sheath was pulled and a TR Band was applied for hemostasis CORONARY ANGIOGRAPHY DOMINANCE: Right Dominant LEFT HEART ASSESSMENT Left Ventricular Ejection Fraction: by LV Gram 60 % Normal LV wall motion Normal Left Ventricular systolic function LEFT MAIN: Angiographically normal LEFT ANTERIOR DESCENDING ARTERY: No significant disease noted DIAGONAL 1: Ostial - 60 % Stenosis CIRCUMFLEX ARTERY: No significant disease noted RIGHT CORONARY ARTERY: No significant disease noted VALVE FINDINGS: Mitral Valve Calcification Severe COMPLICATIONS No Complications PROCEDURE MEDICATIONS Versed 1 mg IV Fentanyl 50 mcg IV Oxygen: 2 L/min via nasal cannula Heparin diluted in 23cc Heparinized saline. Patient given 10cc IA of this solution. 04/01/2020 08:04: 43 Verapamil 2.5mg, Ntg 100mcgs, 2000 units of Heparin diluted in 23cc Heparinized saline. Patient give n 10cc IA of this solution. 04/01/2020 08:04:43 SUMMARY OF HEMODYNAMIC DATA Time AIR REST ECG 07:22:52 AO 112/59 (82) SA 08:16:06 LV 103/3, 12 08:22:18 LV 108/4, 13 08:22:24 LV 110/5, 14 08:23:02 LV 108/6, 14 08:23:08 LVp 108/4, 14 08:23:12 AOp 108/56 (79) 08:23:17 Signed By Nahun Giles MD On 04/01/2020 08:32:35 Nahun Giles MD
== END 2020-04-01 11:05 | disposition home or self-care (01) ==
LOC: CLSP 06:59
PROVIDERS: Physician Assistant Medical; PCP Internal Medicine; Referring Provider Internal Medicine Cardiovascular Disease; Visit Provider Internal Medicine Cardiovascular Disease
DX: I22.2 Subsequent non-ST elevation (NSTEMI) myocardial infarction (principal); I47.2 Ventricular tachycardia; I10 Essential (primary) hypertension; E78.5 Hyperlipidemia, unspecified; E11.9 Type 2 diabetes mellitus without complications; I25.10 Atherosclerotic heart disease of native coronary artery without angina pectoris; Z79.899 Other long term (current) drug therapy; Z86.73 Personal history of transient ischemic attack (TIA), and cerebral infarction without residual deficits; Z79.82 Long term (current) use of aspirin; Z79.02 Long term (current) use of antithrombotics/antiplatelets; Z79.84 Long term (current) use of oral hypoglycemic drugs
CPT/HCPCS: 36415; 80048; 85025; 85610; 85730; 93005; 93458; 99152; 99153; J7040; Q9967; C1769; C1894

== ENCOUNTER → 2020-12-18 08:13 | Outpatient (CLI) | payer MEDICARE, SELFPAY ==
--- NOTE | 2020-12-18 08:44 | BI_ITS ---
MAMMOGRAPHY - BILATERAL SCREENING REASON FOR EXAM: Female, 75 years old. Routine annual screening examination. PERTINENT HISTORY: Mother with breast cancer. Remote right stereotactic breast biopsy. TECHNIQUE: Digital bilateral breast bonifacio (3D mammographic acquisition) in the CC and MLO projections. 2-D mediolateral oblique (MLO) and craniocaudad (CC) views of both breasts were obtained. CAD: Full Field Digital Mammography with Computer Added Detection was performed. COMPARISON: Comparison is made with prior examination dated 12/15/2019 and 04/28/2018. FINDINGS: Breast Composition: The breasts are almost entirely fatty. There are no dominant masses or suspicious calcifications. Stable scattered bilateral calcifications. A tissue clip marker is once again seen in the slightly upper lateral portion of the right breast No other significant abnormalities are identified. There has been no significant change since the prior study. BI/SCRN MAMM (CAD)W/BONIFACIO BILAT IMPRESSION: Stable bilateral screening mammogram. Yearly follow-up mammogram recommended. (A) ASSESSMENT CATEGORY: BIRADS Category 2: Benign. A letter regarding these results will be sent to the patient by the facility within 30 days. Approximately 10% of breast cancers are not detected by mammography. A normal mammogram should not delay biopsy of a clinically suspicious abnormality. [id number] Electronically Signed: Vince Tello MD at 9:42 EDT , Service support ,
== END ==
PROVIDERS: PCP Internal Medicine; Referring Provider Internal Medicine; Visit Provider Internal Medicine
DX: Z12.31 Encounter for screening mammogram for malignant neoplasm of breast (principal)
CPT/HCPCS: 77063; 77067

== ENCOUNTER 2021-04-17 19:08 | Emergency (ER) | payer MEDICARE, SELFPAY ==
[2021-04-17 19:08] VITALS: BP 150/81; PULSE 81; PULSE 86; RESP 18; TEMP 36.7; O2SAT 98; BMI 38.7
--- NOTE | 2021-04-17 19:26 | CT_ITS ---
STUDY: CT FACIAL BONES WITHOUT CONTRAST REASON FOR EXAM: Female, 75 years old. Fell-hit left side of head. Jaw pain. On blood thinners. RADIATION DOSAGE (If Supplied By Facility): CTDIvol = ( 33.62 ) mGy, DLP = ( 1828.30 ) mGycm TECHNIQUE: The patient was scanned in a multi detector CT scanner. Sagittal and coronal images were reconstructed. Individualized dose optimization techniques were used for this CT. COMPARISON: None. FINDINGS: Normal soft tissue structures. Normal orbital ricks and orbital contents. Normal nasal bones and anterior nasal spine. Normal facial bones. There is no demonstrated fracture. Normal visualized paranasal sinuses. CT/Sinus/Facial Bone IMPRESSION: Negative unenhanced CT of the facial bones. Electronically Signed: Sukhwinder Dutta MD at 20:35 EST ,
--- NOTE | 2021-04-17 19:26 | CT_ITS ---
STUDY: CT BRAIN WITHOUT CONTRAST REASON FOR EXAM: Female, 75 years old. Fell-hit left side of head. Jaw pain. On blood thinners. RADIATION DOSAGE (If Supplied By Facility): CTDIvol = ( 33.62 ) mGy, DLP = ( 1828.30 ) mGycm TECHNIQUE: Transaxial CT imaging of the brain was performed without administration of intravenous contrast material. Individualized dose optimization techniques were used for this CT. COMPARISON: Head CT dated February 06, 2020 FINDINGS: Normal soft tissue structures. Normal calvarium. There is mild cerebral atrophy with widening of the extra-axial spaces and ventricular dilatation. There are areas of decreased attenuation within the white matter tracts of the supratentorial brain, consistent with microvascular disease changes. Normal basal ganglia and thalami. Normal brainstem. Normal cerebellum. There is no intracranial hemorrhage. There are no findings of an acute ischemic infarction. Normal visualized paranasal sinuses. CT/Brain/Head without Contrast IMPRESSION: Chronic involutional changes of the brain. Electronically Signed: Sukhwinder Dutta MD at 20:31 EST ,
--- NOTE | 2021-04-17 19:26 | CT_ITS ---
STUDY: CT CERVICAL SPINE WITHOUT CONTRAST REASON FOR EXAM: Female, 75 years old. Fell-hit left side of head. Jaw pain. On blood thinners. RADIATION DOSAGE (If Supplied By Facility): CTDIvol = ( 33.62 ) mGy, DLP = ( 1828.30 ) mGycm TECHNIQUE: High resolution transaxial imaging was performed without contrast material. Sagittal and coronal images were reconstructed. Individualized dose optimization techniques were used for this CT. COMPARISON: None FINDINGS: Normal craniovertebral junction. Normal anterior atlantoaxial articulation. Normal odontoid process. There is straightening of the normal cervical lordosis. No visualized acute fracture or compression deformity. Multilevel degenerative changes are present. No significant central canal stenosis is visualized. No demonstrated jumped facets. Normal visualized soft tissue structures. CT/Spine Cervical without Contras IMPRESSION: Multilevel degenerative changes, as described above. Electronically Signed: Sukhwinder Dutta MD at 20:37 EST ,
--- NOTE | 2021-04-17 19:27 | EDS_ITS ---
HPI HPI - Fall History of Present Illness Chief Complaint: Head Injury Narrative Narrative: 75-year-old female presenting for evaluation after a mechanical fall. She states she was on a stepstool in the kitchen and slipped and fell backwards hitting her head. She states that when she impacted her head actually bounced and she had again. She denies LOC. She states that her jaw hurts on the left from falling. She denies any dental pain. She states that the pain in her jaw is actually improving over time. She denies neck pain or paresthesias. She states she did slightly hit her left elbow but states it is not tender anymore. She has a small superficial abrasion on the left elbow. Patient is on Eliquis for history of A. fib. She denies dizziness, nausea, vomiting, visual changes. [facility] Medical History CVA (cerebral vascular accident) (02/06/20) Essential (primary) hypertension History of non-ST elevation myocardial infarction (NSTEMI) (02/06/20) Hyperlipidemia Mitral valve annular calcification Nonsustained paroxysmal ventricular tachycardia Paroxysmal atrial flutter Type 2 diabetes mellitus Visual changes Home Medications metformin 500 mg PO BREAKFAST 08/16/18 [History Last Taken 03/30/20] sitagliptin 50 mg PO DAILY 08/16/18 [History Last Taken 02/05/20] losartan 50 mg PO DAILY 03/15/19 [History Last Taken 04/01/20] metformin 1,000 mg PO DINNER 02/06/20 [History Last Taken 03/30/20] aspirin 81 mg PO DAILY@0800 #30 tab.chew 02/08/20 [Rx Last Taken 04/01/20] mecobalamin (vitamin B12) 10,000 mcg solution for injection 1,000 mcg IM MONTHLY ea 02/13/20 [History Last Taken Unknown] ondansetron HCl 4 mg tablet 4 mg PO TID PRN #90 tab 02/13/20 [Rx Last Taken Unknown] apixaban 5 mg tablet 5 mg PO BID #60 tab 10/16/20 [Rx Last Taken Unknown] atorvastatin 80 mg tablet 80 mg PO QHS #90 tab 10/16/20 [Rx Last Taken Unknown] metoprolol tartrate 25 mg tablet 25 mg PO BID #180 tab 10/16/20 [Rx Last Taken Unknown] Allergy/AdvReac Type Severity Reaction Status Date / Time Penicillins Allergy Rash Verified 10/16/20 15:14 propoxyphene [From Darvon] AdvReac Nausea/Vom/ Verified 10/16/20 15:14 Diarrhea Family History Father Myocardial infarction Brother Myocardial infarction Mother CVA (cerebral vascular accident) Heart disease Grandmother Myocardial infarction Uncle Myocardial infarction Surgical History History of cholecystectomy History of hernia repair History of left heart catheterization (04/01/20) Social History Smoking Status: Never smoker Electronic Cigarette Use: not used second hand exposure: Yes alcohol intake: current alcohol intake frequency: holidays/special occasions only Alcohol type: wine substance use type: does not use ROS ROS ED Constitutional Constitutional ED: Denies chills or fever(s) Eyes Eyes: Denies blurry vision or change in vision ENT ENT ED: Reports other Details: Left jaw pain ; Denies rhinorrhea or sore throat Cardiovascular Cardiovascular: Denies chest pain or palpitations Respiratory/Chest Respiratory/Chest: Denies cough or dyspnea Gastrointestinal Gastrointestinal: Denies abdominal pain, nausea or vomiting Genitourinary Genitourinary ED: Denies dysuria or hematuria Musculoskeletal Musculoskeletal: Denies neck pain Integumentary Denies abscess or rash Neurologic Neurologic: Denies headache(s) or paresthesias EXAM Physical Exam Const Vital Signs: 04/17/21 19:08 04/17/21 19:14 Temperature 98.1 F Temperature Source Temporal Pulse Rate 86 Respiratory Rate 18 Respiratory Effort Normal Blood Pressure 150/81 H Blood Pressure Mean 104 Pulse Ox 98 Oxygen Delivery Method Room Air Positive well nourished and obese General Appearance ED: NAD Nutritional Appearance: obese HEENT Reports normocephalic and TM's normal bilaterally HEENT Narrative: No hemotympanum. No nasal bone tenderness. Nares patent. No epistaxis. atraumatic Eyes PERRL and EOMs intact bilaterally Eyes Narrative: No mastoid tenderness. No raccoon eyes. Neck full ROM and supple Neck Narrative: No midline spinal tenderness, deformity, step-off. Chest Wall inspection of chest normal Resp normal respiratory effort and clear to auscultation bilaterally Cardio regular rate and regular rhythm Extremity Extremity Narrative: Very superficial skin tear to the left elbow without any bleeding associated. This is over the olecranon which is nontender to palpation. There is no deformity. Patient has flexion extension maintained without limitation. She is able to pronate and supinate without limitation. Left upper extremity neurovascular intact. Left hand has brisk cap refill to all 5 fingers Neuro oriented x3, CN's II-XII intact bilaterally, moves all extremities and no focal motor deficits Sensorium / Orientation: alert Motor Exam: strength 5/5 throughout Psych mental status grossly normal and thought process normal Skin Skin Narrative: As described above MDM MDM MDM Narrative Medical decision making narrative: Patient presenting after mechanical fall off of a step stool. She did hit her head but without LOC. She states that her left side of her jaw was hurting as well but does not have any malocclusion on examination. Her pain is all improving over time. She states she does not anything for pain here. I did examine her left elbow and her no acute findings of her small superficial skin abrasion without any bleeding. I did obtain CT imaging of the brain, cervical spine, facial bones and knees are all negative for acute findings. At this point I feel the patient can be discharged home in stable condition. She can return precautions. Impression: 1. Mechanical fall 2. Closed head injury 3. Left-sided jaw pain Radiography Diagnostic Testing: Clinical Impression(s) from Imaging Studies Brain CT 04/17/21 19:26 IMPRESSION: Chronic involutional changes of the brain. Electronically Signed: Sukhwinder Dutta MD at 20:31 EST Reading Location ID and State: [address] [place] [address] , Service support , ADDENDUM: 04/17/212042 Cervical Spine CT 04/17/21 19:26 IMPRESSION: Multilevel degenerative changes, as described above. Electronically Signed: Sukhwinder Dutta MD at 20:37 EST , Facial/Sinus 04/17/21 19:26 IMPRESSION: Negative unenhanced CT of the facial bones. Electronically Signed: Sukhwinder Dutta MD at 20:35 EST , Discharge Plan Triage Chief Complaint: Head Injury ED Provider: Julian Spivey Dx/Rx/DC Orders Instructions: ED Head Injury (Adult), ED Fall Prevention Prescriptions: No Action mecobalamin (vitamin B12) 10,000 mcg recon soln 1,000 mcg IM MONTHLY RF: 0 ondansetron HCl [Zofran] 4 mg tablet 4 mg PO TID PRN (Reason: nausea and vomiting) Qty: 90 RF: 1 metoprolol tartrate 25 mg tablet 25 mg PO BID Qty: 180 RF: 3 atorvastatin 80 mg tablet 80 mg PO QHS Qty: 90 RF: 3 Eliquis 5 mg tablet 5 mg PO BID Qty: 60 RF: 11 metformin 500 MG tablet 500 mg PO BREAKFAST RF: 0 sitagliptin 50 MG tablet 50 mg PO DAILY RF: 0 losartan 50 MG tablet 50 mg PO DAILY RF: 0 metformin 500 MG tablet 1,000 mg PO DINNER RF: 0 aspirin 81 MG tablet,chewable 81 mg PO DAILY@0800 Qty: 30 RF: 11 Primary Care Provider: Yasmeen Heller Referrals: Yasmeen Heller MD [Primary Care Provider] - Disposition Disposition: Home, Self Care
[2021-04-17 21:00] VITALS: BP 123/55; PULSE 78; RESP 16; TEMP 36.8; O2SAT 97
--- NOTE | 2021-04-18 13:10 | CASEMGMT ---
ZOEY TURCIOS ED follow-up: Date of ER visit: 04/17/2021 Presenting ER c/o: fall with head injury ZOEY TURCIOS placed call to patient's telephone number listed on demographics, patient answered. Patient states doing much better today. Denies mobility issues. Reports taking OTC medications for aches and pains with relief- My elbow is better, my jaw is better. Patient instructed she may use ice to areas of pain as well. Voices understanding. Patient reports she lives with and has support available. Patient expressed much gratitude for the care she received in the emergency department. Patient denies questions or concerns. ZEOY Velásquez CM
== END 2021-04-17 21:01 | disposition home or self-care (01) ==
PROVIDERS: Emergency Provider Student in an Organized Health Care Education/Training Program; PCP Internal Medicine; Visit Provider Student in an Organized Health Care Education/Training Program
DX: S09.90XA Unspecified injury of head, initial encounter (principal); I48.92 Unspecified atrial flutter; E11.9 Type 2 diabetes mellitus without complications; R68.84 Jaw pain; I10 Essential (primary) hypertension; E78.5 Hyperlipidemia, unspecified; I25.2 Old myocardial infarction; E66.9 Obesity, unspecified; Z79.82 Long term (current) use of aspirin; Z79.84 Long term (current) use of oral hypoglycemic drugs; Z79.899 Other long term (current) drug therapy; W01.0XXA Fall on same level from slipping, tripping and stumbling without subsequent striking against object, initial encounter
CPT/HCPCS: 70450; 70486; 72125; 99283; A4216

== ENCOUNTER → 2022-07-16 | Outpatient (CLI) | payer MEDICARE, SELFPAY ==
--- NOTE | 2022-07-16 12:40 | BI_ITS ---
MAMMOGRAPHY - BILATERAL SCREENING REASON FOR EXAM: Female, 76 years old. Routine annual screening examination. PERTINENT HISTORY: Mother with breast cancer. Remote right stereotactic breast biopsy. TECHNIQUE: Digital bilateral breast bonifacio (3D mammographic acquisition) in the CC and MLO projections. 2-D mediolateral oblique (MLO) and craniocaudad (CC) views of both breasts were obtained. CAD: Full Field Digital Mammography with Computer Added Detection was performed. COMPARISON: Comparison is made with prior study December 18, 2020 and December 15, 2019. FINDINGS: Breast Composition: The breasts are almost entirely fatty. There are no dominant masses or suspicious calcifications. Stable appearance of the bilateral diffuse calcifications most likely secretory in nature. A tissue clip marker is once again seen in the slightly upper lateral aspect of the right breast. No other significant abnormalities are identified. There has been no significant change since the prior study. BI/SCRN MAMM (CAD)W/BONIFACIO BILAT IMPRESSION: Stable bilateral screening mammogram. Yearly follow-up mammogram recommended. (A) ASSESSMENT CATEGORY: BIRADS Category 2: Benign. A letter regarding these results will be sent to the patient by the facility within 30 days. Approximately 10% of breast cancers are not detected by mammography. A normal mammogram should not delay biopsy of a clinically suspicious abnormality. [id number] Electronically Signed: Vince Tello MD at 14:15 EDT ,
== END | disposition home or self-care (01) ==
LOC: OPBI 12:38
PROVIDERS: PCP Internal Medicine; Referring Provider Internal Medicine; Visit Provider Internal Medicine
DX: Z12.31 Encounter for screening mammogram for malignant neoplasm of breast (principal)
CPT/HCPCS: 77063; 77067

== ENCOUNTER 2022-08-25 15:51 | Inpatient (IN) | payer MEDICARE, SELFPAY ==
[2022-08-25] VITALS (12 sets, daily range): BP systolic 96–166; BP diastolic 50–88; PULSE 74–95; RESP 16–26; TEMP 36.7–37.4; O2SAT 94–100; BMI 39.2; BMI 38.0
--- NOTE | 2022-08-25 15:52 | CT_ITS ---
We are attempting to reach an attending provider to discuss findings. An addendum with communication details will be sent when the communication is complete. EXAM: CT ANGIOGRAPHY HEAD AND NECK WITH INTRAVENOUS CONTRAST CLINICAL INDICATION: Neuro deficit, acute, stroke suspected TECHNIQUE: [place] [facility] [place]/head and neck CT angiography protocol performed with intravenous contrast. This CT exam was performed using one or more of the following dose reduction techniques: automated exposure control, adjustment of the mA and/or kV according to patient size, and/or use of iterative reconstruction technique. MIP reconstructed images were created and reviewed. CONTRAST: IV 100mL [id number] COMPARISON: No relevant prior studies available. FINDINGS: HEAD: RIGHT ANTERIOR CEREBRAL ARTERY: Unremarkable. No significant stenosis at the visualized segments. Anterior communicating artery is present. No aneurysm. RIGHT MIDDLE CEREBRAL ARTERY: Unremarkable. No significant stenosis at the visualized segments. No aneurysm. RIGHT POSTERIOR CEREBRAL ARTERY: Unremarkable. No occlusion or significant stenosis. No aneurysm. RIGHT INTRACRANIAL INTERNAL CAROTID ARTERY: Unremarkable. No significant stenosis. No dissection or occlusion. RIGHT INTRACRANIAL VERTEBRAL ARTERY: Unremarkable. No significant stenosis. No dissection or occlusion. LEFT ANTERIOR CEREBRAL ARTERY: Unremarkable. No significant stenosis at the visualized segments. No aneurysm. LEFT MIDDLE CEREBRAL ARTERY: Unremarkable. No significant stenosis at the visualized segments. No aneurysm. LEFT POSTERIOR CEREBRAL ARTERY: Unremarkable. No occlusion or significant stenosis. No aneurysm. LEFT INTRACRANIAL INTERNAL CAROTID ARTERY: Unremarkable. No significant stenosis. No dissection or occlusion. LEFT INTRACRANIAL VERTEBRAL ARTERY: Unremarkable. No significant stenosis. No dissection or occlusion. BASILAR ARTERY: Unremarkable. No significant stenosis. No aneurysm. OTHER VASCULATURE: No vascular malformation. NECK: RIGHT COMMON CAROTID ARTERY: Unremarkable. No significant stenosis. No dissection or occlusion. RIGHT EXTRACRANIAL INTERNAL CAROTID ARTERY: Unremarkable. No significant stenosis. No dissection or occlusion. RIGHT EXTERNAL CAROTID ARTERY: Unremarkable. No occlusion. RIGHT EXTRACRANIAL VERTEBRAL ARTERY: Unremarkable. No significant stenosis. No dissection or occlusion. LEFT COMMON CAROTID ARTERY: Unremarkable. No significant stenosis. No dissection or occlusion. LEFT EXTRACRANIAL INTERNAL CAROTID ARTERY: Unremarkable. No significant stenosis. No dissection or occlusion. LEFT EXTERNAL CAROTID ARTERY: Unremarkable. No occlusion. LEFT EXTRACRANIAL VERTEBRAL ARTERY: Unremarkable. No significant stenosis. No dissection or occlusion. BRACHIOCEPHALIC AND SUBCLAVIAN ARTERIES: Unremarkable as visualized. No occlusion or significant stenosis. LUNG APICES: Unremarkable as visualized. HEAD and NECK: BONES/JOINTS: Unremarkable. No discrete lytic or blastic abnormalities. SOFT TISSUES: Unremarkable. CAROTID STENOSIS REFERENCE USING NASCET CRITERIA: % ICA stenosis = (1 - narrowest ICA diameter/diameter of distal cervical ICA) x 100. Mild - <50% stenosis. Moderate - 50-69% stenosis. Severe - 70-94% stenosis. Near occlusion - 95-99% stenosis. Occluded - 100% stenosis. CT/STROKE CTA Head AND Neck W/Con IMPRESSION: Negative CTA carotid and CTA brain. Electronically Signed: César Segura MD at 16:23 EDT ,
--- NOTE | 2022-08-25 15:52 | CT_ITS ---
We are attempting to reach an attending provider to discuss findings. An addendum with communication details will be sent when the communication is complete. EXAM: CT HEAD WITHOUT INTRAVENOUS CONTRAST CLINICAL INDICATION: Neuro deficit, acute, stroke suspected TECHNIQUE: Multiple axial images were obtained of the head without intravenous contrast. This CT exam was performed using one or more of the following dose reduction techniques: automated exposure control, adjustment of the mA and/or kV according to patient size, and/or use of iterative reconstruction technique. COMPARISON: 04/17/2021 FINDINGS: BRAIN AND EXTRA-AXIAL SPACES: There is stable encephalomalacia in the right occipital lobe. Ventricular system and cortical sulci are at the upper limits in size. There is hypoattenuation in the periventricular. No intra- or extra-axial hemorrhage. No evidence of acute infarct. No intracranial mass or mass effect. There is preservation of the de paz/white matter interface. Posterior fossa structures are unremarkable. Basal cisterns are patent. BONES/JOINTS: Unremarkable. No discrete lytic or blastic abnormalities. SINUSES: Unremarkable as visualized. Clear. MASTOID AIR CELLS: Unremarkable. Clear. ORBITS: Visualized globes, extraocular muscles, optic nerves and retrobulbar fat appear unremarkable. CT/STROKE Brain/Head without Cont IMPRESSION: 1. No acute intracranial abnormality. There has been no change from the reference examination. 2. Stable remote right occipital infarct. There are stable underlying senescent changes with small vessel ischemia. 3. Aspects score 10. Electronically Signed: César Segura MD at 16:06 EDT ,
--- NOTE | 2022-08-25 16:01 | EDS_ITS ---
HPI History of Present Illness Chief Complaint: Neuro S/Sx Informant: EMS Narrative Narrative: Patient was initially met in the [facility] with EMS. She was awake alert she could tell me her age location move arms legs and smile. Reportedly last well time was this morning. We have her off the CT scan at this time to expedite care. Detailed eval is done as the patient comes back in reviewing information on the computer in the meantime. [facility] Medical History CVA (cerebral vascular accident) (02/06/20) Essential (primary) hypertension History of non-ST elevation myocardial infarction (NSTEMI) (02/06/20) Hyperlipidemia Mitral valve annular calcification Nonobstructive atherosclerosis of coronary artery Nonsustained paroxysmal ventricular tachycardia Paroxysmal atrial flutter Type 2 diabetes mellitus Visual changes Home Medications losartan 50 mg tablet 50 mg PO DAILY 03/15/19 [History Last Taken 04/01/20] metformin 500 mg tablet,extended release 24 hr 1,000 mg PO DINNER dm 02/06/20 [History Last Taken 03/30/20] aspirin 81 mg chewable tablet 81 mg PO DAILY@0800 ##30 02/08/20 [Rx Last Taken 04/01/20] mecobalamin (vitamin B12) 10,000 mcg solution for injection 1,000 mcg IM MONTHLY 02/13/20 [History Last Taken Unknown] atorvastatin 80 mg tablet 80 mg PO QHS #90 tabs 08/12/21 [Rx Last Taken Unknown] metoprolol tartrate 25 mg tablet 25 mg PO BID #180 tabs 12/01/21 [Rx Last Taken Unknown] apixaban 5 mg tablet (Eliquis) 5 mg PO BID #180 tabs 08/12/22 [Rx Last Taken Unknown] benzonatate 100 mg capsule 100 mg PO BID-TID PRN 08/12/22 [History Last Taken Unknown] cholecalciferol (vitamin D3) 25 mcg (1,000 unit) capsule 25 mcg PO DAILY PRN 08/12/22 [History Last Taken Unknown] levothyroxine 50 mcg capsule 50 mcg PO DAILY 08/12/22 [History Last Taken Unknown] tizanidine 2 mg capsule 2 mg PO Q8H PRN 08/12/22 [History Last Taken Unknown] Allergy/AdvReac Type Severity Reaction Status Date / Time Penicillins Allergy Rash Verified 08/12/22 10:36 propoxyphene [From Darvon] AdvReac Nausea/Vom/ Verified 08/12/22 10:36 Diarrhea Family History Father Myocardial infarction Brother Myocardial infarction Mother CVA (cerebral vascular accident) Heart disease Grandmother Myocardial infarction Uncle Myocardial infarction Surgical History History of cholecystectomy History of hernia repair History of left heart catheterization (04/01/20) Social History Smoking Status: Never smoker Electronic Cigarette Use: not used second hand exposure: Yes alcohol intake: current alcohol intake frequency: holidays/special occasions only Alcohol type: wine substance use type: does not use ROS ROS ED Constitutional Constitutional ED: Denies chills or fever(s) Eyes Eyes: Reports other Details: Has had some vision problems since her last stroke 3 years ago. No apparent acute problem. ENT ENT ED: Denies rhinorrhea Cardiovascular Cardiovascular: Denies chest pain or palpitations Respiratory/Chest Respiratory/Chest: Denies cough or dyspnea Gastrointestinal Gastrointestinal: Denies diarrhea or vomiting Musculoskeletal Musculoskeletal: Denies arthralgias Integumentary Denies rash Neurologic Neurologic: Reports other Details: See history of present illness ; Denies headache(s) Hematologic/Lymphatic Hematologic/Lymphatic: Reports easy bleeding, easy bruising and other Details: Likely last took her Eliquis last night. But could have taken it this morning. Allergic/Immunologic Allergic/Immunologic ED: Denies urticaria EXAM Physical Exam Narrative Exam Narrative: Patient is awake and alert. She is a little bit slow to answer questions though. HEENT shows no trauma or asymmetry. She can close eyes and smile equally. Neck shows no bruit. No meningismus. Heart sounds are regular. I hear no murmur. Breath sounds are easy unlabored breathing and clear sounds. Abdomen is mildly obese but nontender. Extremities show no trauma. Neurologically patient is awake and alert. She knows she is in a hospital. She cannot tell me the date birthday of her or the president [facility]. She has no focal or lateralizing weakness but she appears to have some expressive aphasia. I believe her sensation is intact but she has trouble saying left or right. She will say yes anytime I touch an area. Please see NIH. Const Vital Signs: 08/25/22 16:10 08/25/22 16:00 08/25/22 16:34 Temperature 98.5 F 98.3 F Temperature Source Oral Oral Pulse Rate 95 93 89 Respiratory Rate 26 H 16 16 Blood Pressure 137/53 H 155/88 H 166/84 H Blood Pressure Mean 81 110 111 Pulse Ox 98 98 Oxygen Delivery Method Room Air Room Air 08/25/22 17:16 08/25/22 17:00 08/25/22 17:00 Temperature Temperature Source Pulse Rate 88 88 Respiratory Rate 16 16 Blood Pressure 128/74 H 148/77 H Blood Pressure Mean 92 100 Pulse Ox 98 99 Oxygen Delivery Method Room Air Room Air 08/25/22 18:12 08/25/22 18:12 Temperature 98.9 F Temperature Source Oral Pulse Rate 89 89 Respiratory Rate 20 H 20 H Blood Pressure 96/60 96/60 Blood Pressure Mean 72 72 Pulse Ox 96 96 Oxygen Delivery Method Room Air Room Air NIHSS NIHSS Initial: 1a Level of Consciousness: 0 1b LOC Questions (Score 2 if aphasic/stupor): 2 1c LOC Commands (Only score 1st attempt): 0 2 Best Gaze (If aphasic, use reflexive mvmts.): 2 3 Visual: 0 (Very difficult to assess but no gross apparent visual field cut.) 4 Facial Palsy: 0 5 Motor Arm Right (UN = amputation/fusion): 0 5 Motor Arm Left: 0 6 Motor Leg Right: 0 6 Motor Leg Left: 0 7 Limb ataxia (Only + if out of proportion): 0 8 Sensory (Aphasia/stupor=0 or 1, coma=2): 0 9 Best Language: 2 10 Dysarthria (mute, coma=2, intubated=UN): 0 11 Extinction and Inattention (only scored if +): 0 Total Score: 6 MDM MDM MDM Narrative Medical decision making narrative: My independent her potation the patient's CT of the head without contrast showed some right occipital decreased density. But no acute bleed. Final reading is no acute and no interval change. Final reading by radiology of the CTA also shows no vessel cutoff. Patient CBC shows nonspecific elevation of white count at 14.1. Hemoglobin platelets are normal. Patient's coagulation studies are normal. Patient's electrolytes are normal other than her glucose is high at 334. She is on metformin. SOC neurology recommends admission and work-up. I rechecked the patient. She is speaking better but still having problems. She is not back to baseline. I discussed case with the hospitalist and patient will be admitted. Lab Data Attestation: I reviewed the patient's lab results. Labs: Laboratory Results - last 24 hr 08/25/22 08/25/22 08/25/22 16:00 16:00 16:00 WBC 14.1 H RBC 4.35 Hgb 12.4 Hct 38.2 MCV 87.8 MCH 28.5 MCHC 32.5 RDW Std Deviation 43.8 RDW Coeff of Landy 13.7 Plt Count 503 H MPV 10.0 Immature Gran % (Auto) 0.600 Neut % (Auto) 68.9 Lymph % (Auto) 23.7 [place] % (Auto) 6.2 Eos % (Auto) 0.2 Baso % (Auto) 0.4 Absolute Neuts (auto) 9.7 H Absolute Lymphs (auto) 3.34 Nucleated RBC % 0 PT 14.4 INR 1.1 APTT 30.0 Sodium 134 L Potassium 3.9 Chloride 101 Carbon Dioxide 25.0 Anion Gap 8 BUN 12 Creatinine 0.83 Est GFR (MDRD) Af Amer 86 Est GFR (MDRD) Non-Af 71 BUN/Creatinine Ratio 14.5 Glucose 334 H Calcium 9.3 Troponin I High Sens 11 POC Glucose 08/25/22 16:29 WBC RBC Hgb Hct MCV MCH MCHC RDW Std Deviation RDW Coeff of Landy Plt Count MPV Immature Gran % (Auto) Neut % (Auto) Lymph % (Auto) [place] % (Auto) Eos % (Auto) Baso % (Auto) Absolute Neuts (auto) Absolute Lymphs (auto) Nucleated RBC % PT INR APTT Sodium Potassium Chloride Carbon Dioxide Anion Gap BUN Creatinine Est GFR (MDRD) Af Amer Est GFR (MDRD) Non-Af BUN/Creatinine Ratio Glucose Calcium Troponin I High Sens POC Glucose 316 H Radiography Diagnostic Testing: Clinical Impression(s) from Imaging Studies Brain CT 08/25/22 15:52 IMPRESSION: 1. No acute intracranial abnormality. There has been no change from the reference examination. 2. Stable remote right occipital infarct. There are stable underlying senescent changes with small vessel ischemia. 3. Aspects score 10. Electronically Signed: César Segura MD at 16:06 EDT , ADDENDUM: 08/25/22 1614 IMPRESSION: 1. No acute intracranial abnormality. There has been no change from the reference examination. 2. Stable remote right occipital infarct. There are stable underlying senescent changes with small vessel ischemia. 3. Aspects score 10. N.B. : The above Results were Read Back by César Segura MD to Tejas Lew MD, and understanding confirmed on 08/25/2022 16:07:57 (ET). Electronically Signed: César Segura MD at 16:06 EDT , Head/Neck CTA 08/25/22 15:52 IMPRESSION: Negative CTA carotid and CTA brain. Electronically Signed: César Segura MD at 16:23 EDT , ADDENDUM: 08/25/22 1632 IMPRESSION: Negative CTA carotid and CTA brain. N.B. : The above Results were Read Back by César Segura MD to Tejas Lew MD, and understanding confirmed on 08/25/2022 16:25:55 (ET). Electronically Signed: César Segura MD at 16:23 EDT , Chest X-Ray 08/25/22 16:42 IMPRESSION: No radiographic evidence of acute cardiopulmonary disease. Electronically Signed: César Segura MD at 17:15 EDT , EKG Initial EKG: Comments: My independent interpretation the patient's EKG shows a normal sinus rhythm with overall rate at 95. No sign of dysrhythmia or atrial fibrillation. No acute ST elevation or depression. No. [place] interval, QRS duration and QTc are all normal. Management Discussion w/another healthcare provider: Hospitalist and Return Checker Discharge Plan Dx/Rx/DC Orders Clinical Impression: CVA (cerebral vascular accident), Expressive aphasia, Receptive aphasia, History of stroke, History of diabetes mellitus, History of hypertension Disposition Disposition: Acute Care Hospital [facility] Discharge Date/Time: 08/25/22 18:42
--- NOTE | 2022-08-25 16:02 | NURSING ---
1541 STROKE ALERT CALLED PRIOR TO ARRIVAL
[2022-08-25 16:22] LABS: Absolute Lymphocyte Count 3.34 X10^3/uL (0.83-4.51); Absolute Neutrophil Count 9.7 X10^3/uL (2.0-7.7); Basophil# 0.05 X10^3/uL; Basophil% 0.4 % (0-1); Eosinophil# 0.03 X10^3/uL; Eosinophils% 0.2 % (0-5); Hematocrit 38.2 % (37-47); Hemoglobin 12.4 g/dL (12.0-15.0); Lymphocyte # 3.34 X10^3/ul (0.83-4.51); Lymphocyte % 23.7 % (19-41); Mean Corp Hgb Conc 32.5 g/dL (32-36); Mean Corpuscular Hgb 28.5 pg (27.0-32.0); Mean Corpuscular Volume 87.8 fL (81-99); Monocyte# 0.87 X10^3/uL; Monocyte% 6.2 % (0-10); NRBC Flagged by Analyzer 0 % (0-5); Neutrophil % 68.9 % (47-70); Platelet Count 503 K/mm3 (150-450); RBC Distribution Width CV 13.7 % (11.6-14.6); RBC Distribution Width SD 43.8 fl (35.1-43.9); Red Blood Count 4.35 M/mm3 (4.2-5.4); White Blood Count 14.1 K/mm3 (4.4-11.0)
[2022-08-25 16:26] LABS: International Normalized Ratio 1.1; Prothrombin Time (Protime)PT. 14.4 SECONDS (11.7-14.9)
[2022-08-25 16:32] LABS: Anion Gap 8 (5-15); BUN 12 mg/dL (7-18); BUN/Creat Ratio 14.5 RATIO (10-20); Calcium,Total 9.3 mg/dL (8.5-10.1); Chloride 101 mmol/L (98-107); Creatinine, Serum 0.83 mg/dL (0.55-1.02); EST Glomerular Filtration Rate 71 mL/min (>60); Est Glom Filt Rate - Afr Amer 86 mL/min (>60); Glucose 334 mg/dL (74-106); Potassium 3.9 mmol/L (3.5-5.1); Sodium Level 134 mmol/L (136-145); Troponin-I HS 11 pg/mL (3.0-54.0)
--- NOTE | 2022-08-25 16:42 | RAD_ITS ---
EXAM: XR CHEST, 1 VIEW CLINICAL INDICATION: Neuro deficit, acute, stroke suspected TECHNIQUE: Frontal view of the chest. COMPARISON: 02/06/2020 FINDINGS: LUNGS AND PLEURAL SPACES: Unremarkable. No consolidation or edema. No pneumothorax. No effusion. HEART: Unremarkable. Cardiac silhouette not enlarged. MEDIASTINUM: Central airways and mediastinal contour are unremarkable. BONES/JOINTS: Unremarkable. SOFT TISSUES: Unremarkable. RAD/Chest 1 View IMPRESSION: No radiographic evidence of acute cardiopulmonary disease. Electronically Signed: César Segura MD at 17:15 EDT ,
[2022-08-25 16:48] LABS: Bedside Glucose 316 mg/dL (74-106)
--- NOTE | 2022-08-25 17:40 | NURSING ---
DR DONTE GODINEZ
--- NOTE | 2022-08-25 17:45 | NURSING ---
PCU [facility] CVA
--- NOTE | 2022-08-25 18:13 | PCM.HP.STD ---
HPI - General General Date of Admission: 08/25/22 Date of Service: 08/25/22 Chief Complaint: Difficulty expressing words HPI Narrative RAMÓN CANADA, is a 76 F with a history of CVA 3 years ago, paroxysmal atrial flutter on Eliquis, hypertension, thyroidism type 2 diabetes who scented to [facility] 08/25/2022 due to difficulty getting her words out and not acting normal for several hours. History provided primarily by her due to patient's difficulty answering questions and her frustration in doing so. He was in her usual health and woke up at 1030 in her usual health but at 1130 she was not acting like her usual self and responding appropriately so ultimately she was brought to the emergency department as a stroke call at 4 PM. The timeline as well as being on Eliquis she was not deemed a candidate for tenecteplase and had no large vessel occlusion. Hospitalist consulted for admission. Patient reportedly had slightly improved as far as understanding and responding however still had difficulty significant difficulty at times though in part seemed worsened by frustration. Patient having back pain which is chronic and had injection 1 week ago which was only minimally helpful but had not been complaining of any focal complaints leading up to current event. Has possible slight headache, was unable to comment on changes in vision but does have some chronic spots with decreased vision after her old stroke. No chest pain or shortness of breath, patient answered I do not know to multiple questions however did not endorse any other focal or specific complaints. [facility] Medical History CVA (cerebral vascular accident) (02/06/20) Essential (primary) hypertension History of non-ST elevation myocardial infarction (NSTEMI) (02/06/20) Hyperlipidemia Mitral valve annular calcification Nonobstructive atherosclerosis of coronary artery Nonsustained paroxysmal ventricular tachycardia Paroxysmal atrial flutter Type 2 diabetes mellitus Visual changes Home Medications losartan 50 mg tablet 50 mg PO DAILY 03/15/19 [History Last Taken 04/01/20] metformin 500 mg tablet,extended release 24 hr 1,000 mg PO DINNER dm 02/06/20 [History Last Taken 03/30/20] aspirin 81 mg chewable tablet 81 mg PO DAILY@0800 ##30 02/08/20 [Rx Last Taken 01/25/21] mecobalamin (vitamin B12) 10,000 mcg solution for injection 1,000 mcg IM MONTHLY 02/13/20 [History Last Taken Unknown] atorvastatin 80 mg tablet 80 mg PO QHS #90 tabs 08/12/21 [Rx Last Taken Unknown] metoprolol tartrate 25 mg tablet 25 mg PO BID #180 tabs 12/01/21 [Rx Last Taken Unknown] apixaban 5 mg tablet (Eliquis) 5 mg PO BID #180 tabs 08/12/22 [Rx Last Taken Unknown] benzonatate 100 mg capsule 100 mg PO BID-TID PRN 08/12/22 [History Last Taken Unknown] cholecalciferol (vitamin D3) 25 mcg (1,000 unit) capsule 25 mcg PO DAILY PRN 08/12/22 [History Last Taken Unknown] levothyroxine 50 mcg capsule 50 mcg PO DAILY 08/12/22 [History Last Taken Unknown] tizanidine 2 mg capsule 2 mg PO Q8H PRN 08/12/22 [History Last Taken Unknown] Allergy/AdvReac Type Severity Reaction Status Date / Time Penicillins Allergy Rash Verified 08/12/22 10:36 propoxyphene [From Darvon] AdvReac Nausea/Vom/ Verified 08/12/22 10:36 Diarrhea Family History Father Myocardial infarction Brother Myocardial infarction Mother CVA (cerebral vascular accident) Heart disease Grandmother Myocardial infarction Uncle Myocardial infarction Surgical History History of cholecystectomy History of hernia repair History of left heart catheterization (04/01/20) Social History Smoking Status: Never smoker Electronic Cigarette Use: not used second hand exposure: Yes alcohol intake: current alcohol intake frequency: holidays/special occasions only Alcohol type: wine substance use type: does not use ROS ROS Narrative Patient had difficulty with multiple ROS questions however denied chest pain or shortness of breath, does have back pain which is chronic and a slight headache, did not endorse any other specific complaints Vital Signs Vital Signs Vital Signs: 08/25/22 16:10 08/25/22 16:00 08/25/22 16:34 Temperature 98.5 F 98.3 F Temperature Source Oral Oral Pulse Rate 95 93 89 Respiratory Rate 26 H 16 16 Blood Pressure 137/53 H 155/88 H 166/84 H Blood Pressure Mean 81 110 111 Pulse Ox 98 98 Oxygen Delivery Method Room Air Room Air 08/25/22 17:16 08/25/22 17:00 08/25/22 17:00 Temperature Temperature Source Pulse Rate 88 88 Respiratory Rate 16 16 Blood Pressure 128/74 H 148/77 H Blood Pressure Mean 92 100 Pulse Ox 98 99 Oxygen Delivery Method Room Air Room Air Weight Weight: 97.4 kg Body Mass Index (BMI) 39.2 Physical Exam Narrative General: Alert, patient with difficulty answering orientation questions, appears upset HEENT: Atraumatic, normocephalic Eyes: Anicteric, normal conjunctiva, extraocular movements grossly, at one point patient would not open eyes to test formal movements Neck: Supple Respiratory: Clear to auscultation bilaterally, normal respiratory effort Cardiovascular: Regular rate and rhythm GI: Soft, nontender, nondistended Extremities: No edema Musculoskeletal: Strength equal in upper and lower extremities, patient with difficulty pulling or pushing on hands but had brief bursts of adequate strength with multiple prompts, 5 out of 5 right lower extremity, 5 out of 5 left lower extremity Neuro: No overt focal neurological deficits aside from some aspects of expressive and receptive aphasia, cranial nerves II through XII intact, patient would not perform [id number], no clonus in lower extremities Skin: No rashes appreciated Psych: Appears anxious Results Lab / Micro Data Result Diagrams: 08/25/22 16:00 08/25/22 16:00 Labs: Laboratory Results - last 24 hr 08/25/22 16:00: WBC 14.1 H, RBC 4.35, Hgb 12.4, Hct 38.2, MCV 87.8, MCH 28.5, MCHC 32.5, RDW Std Deviation 43.8, RDW Coeff of Landy 13.7, Plt Count 503 H, MPV 10.0, Immature Gran % (Auto) 0.600, Neut % (Auto) 68.9, Lymph % (Auto) 23.7, [place] % (Auto) 6.2, Eos % (Auto) 0.2, Baso % (Auto) 0.4, Absolute Neuts (auto) 9.7 H, Absolute Lymphs (auto) 3.34, Nucleated RBC % 0 06/20/23 16:00: PT 14.4, INR 1.1, APTT 30.0 08/25/22 16:00: Sodium 134 L, Potassium 3.9, Chloride 101, Carbon Dioxide 25.0, Anion Gap 8, BUN 12, Creatinine 0.83, Est GFR (MDRD) Af Amer 86, Est GFR (MDRD) Non-Af 71, BUN/Creatinine Ratio 14.5, Glucose 334 H, Calcium 9.3, Troponin I High Sens 11 08/25/22 16:29: POC Glucose 316 H Radiology Impression Brain CT 08/25/22 15:52 IMPRESSION: 1. No acute intracranial abnormality. There has been no change from the reference examination. 2. Stable remote right occipital infarct. There are stable underlying senescent changes with small vessel ischemia. 3. Aspects score 10. Electronically Signed: César Segura MD at 16:06 EDT , ADDENDUM: 08/25/22 1614 IMPRESSION: 1. No acute intracranial abnormality. There has been no change from the reference examination. 2. Stable remote right occipital infarct. There are stable underlying senescent changes with small vessel ischemia. 3. Aspects score 10. N.B. : The above Results were Read Back by César Segura MD to Tejas Lwe MD, and understanding confirmed on 08/25/2022 16:07:57 (ET). Electronically Signed: César Segura MD at 16:06 EDT , Head/Neck CTA 08/25/22 15:52 IMPRESSION: Negative CTA carotid and CTA brain. Electronically Signed: César Segura MD at 16:23 EDT , ADDENDUM: 08/25/22 1632 IMPRESSION: Negative CTA carotid and CTA brain. N.B. : The above Results were Read Back by César Segura MD to Tejas Lew MD, and understanding confirmed on 08/25/2022 16:25:55 (ET). Electronically Signed: César Segura MD at 16:23 EDT , Chest X-Ray 08/25/22 16:42 IMPRESSION: No radiographic evidence of acute cardiopulmonary disease. Electronically Signed: César Segura MD at 17:15 EDT , Assessment & Plan Assessment/Plan (1) Neurologic abnormality: (2) CVA (cerebral vascular accident): QUALIFIERS: CVA mechanism: embolism Precerebral and cerebral artery: posterior cerebral artery Laterality of affected vessel: right Qualified Code(s): I63.431 - Cerebral infarction due to embolism of right posterior cerebral artery (3) Type 2 diabetes mellitus: (4) Essential (primary) hypertension: (5) Mitral valve annular calcification: (6) Paroxysmal atrial flutter: (7) Hypothyroidism: PLAN: Plan #Expressive and receptive aphasia -Admit to tele -CT head w/ old stroke on right side and CTA with no large vessel occlusion -NIH q4hr -Was seen as a stroke call on arrival and was not a candidate for intervention. It was recommended she be admitted and to continue aspirin 81 mg and obtain MRI and to hold Eliquis, can consider restarting at 48 hours pending findings -asa, statin -Echo w/ bubble study -PT/OT/Speech eval -Hold BP medications to allow for permissive hypertension for 24 hours unless SBP greater than 220 or DBP greater than 120 or until stroke is ruled out #History of CVA -History of ischemic right occipital cortical stroke in February 2020 -Follows with Dr. Lee -See above #Chronic back pain -Tylenol and oxycodone. Pain with lidocaine patch topical -Follows with Dr. Serra on outpatient basis #Paroxysmal atrial flutter -On metoprolol, holding Eliquis, presently normal sinus rhythm -Troponins within normal limits as well on arrival #Hypertension -Permissive hypertension as above #Hypothyroidism -Continue Synthroid #Type 2 diabetes mellitus -Glucose checks and sliding scale insulin Discussed CODE STATUS with patient and her , patient with difficulty expressing her wishes given present complaint, when asked about full code versus DNR/DNI patient's reported she has a living will with a standing DO NOT RESUSCITATE order #DVT ppx: SCDs Christal Patiño MD Time spent in the patient's overall evaluation,decision-making process, review of diagnostic data, adjustment of management, discussion with other providers, nursing nursing and ancillary staff involved in patient's care documentation, 60 minutes Charges/Coding Visit Charges Inpatient E&M: 27580 Init Hosp L2
--- NOTE | 2022-08-25 18:28 | ECHOD_ITS ---
Reason For Study: TIA/STROKE Left Ventricle Normal size and thickness. The left ventricular ejection fraction is 65 %. Normal diastology for age. Right Ventricle Normal right ventricle. Atria The left and right atria are normal. Mitral Valve Severe mitral annular calcification. The mitral valve chordae are thickened and/or calcified. Trivial mitral valve insufficiency. Tricuspid Valve Normal tricuspid valve. Aortic Valve The aortic valve is not well visualized in the short axis view. There is no aortic stenosis. Trivial aortic valve insufficiency. Pulmonic Valve The pulmonic valve is not well visualized. Great Vessels Normal sized aortic root. Pericardium/Pleural No pericardial effusion. Epicardial fat. MMode/2D Measurements & Calculations LVIDd: 3.6 cm IVSd: 0.82 cm LVOT diam: 2.0 cm LVIDs: 2.5 cm LVPWd: 0.95 cm LVOT area: 3.1 cm2 RVDd: 3.6 cm FS: 30.0 % Ao root diam: 3.1 cm LAV(MOD-bp): 35.6 ml LVAd ap4: 21.6 cm2 LAV(MOD-bp) Indexed: 18.3 ml/m2 LVLd ap4: 7.1 cm LAV(MOD-sp2): 32.3 ml EDV(MOD-sp4): 55.7 ml LAV(MOD-sp4): 35.7 ml EDV(sp4-el): 55.9 ml LVAs ap4: 11.1 cm2 LVLs ap4: 5.7 cm ESV(MOD-sp4): 18.5 ml ESV(sp4-el): 18.2 ml EF(MOD-sp4): 66.9 % EF(sp4-el): 67.5 % SV(MOD-sp4): 37.2 ml SV(sp4-el): 37.7 ml LA A4 area: 16.4 cm2 LA dimension(2D): 3.2 cm RA A4 area: 13.4 cm2 Time Measurements MV dec time: 0.38 sec Doppler Measurements & Calculations MV E max rock: 113.1 cm/sec Lat Peak E' Rock: 8.0 cm/sec Med Peak E' Rock: 5.9 cm/sec MV A max rock: 162.4 cm/sec E/E' lat: 14.1 E/E' med: 19.2 MV E/A: 0.70 MV V2 max: 167.1 cm/sec MV P1/2t max rock: 126.3 cm/sec Ao V2 max: 176.6 cm/sec MV max P.2 mmHg MV P1/2t: 111.1 msec Ao max P.5 mmHg MV V2 mean: 93.3 cm/sec Ao V2 mean: 122.2 cm/sec MV mean P.1 mmHg MV dec slope: 332.9 cm/sec2 Ao mean P.7 mmHg MV V2 VTI: 47.5 cm MVA(P1/2t): 2.0 cm2 Ao V2 VTI: 37.1 cm AV (velocity ratio): 0.83 MVA(VTI): 2.0 cm2 ALLA(I,D): 2.6 cm2 ALLA(V,D): 2.3 cm2 LV V1 max: 128.5 cm/sec SV(LVOT): 95.7 ml LV V1 max P.6 mmHg LV V1 mean P.1 mmHg LV V1 mean: 82.8 cm/sec LV V1 VTI: 30.9 cm ECHO/Echo Complete Interpretation Summary The left ventricular ejection fraction is 65 %. Severe mitral annular calcification. The mitral valve chordae are thickened and/or calcified. Ordering Physician: Christal Patiño Referring Physician: JONES VELASQUEZ Performed By: Wanda Lee RDCS
--- NOTE | 2022-08-25 18:28 | MRI_ITS ---
ACR Level 3 findings have been noted. An addendum which confirms receipt of the report will follow. HISTORY: concern for cva. TECHNIQUE: Multiplanar and multisequence MR images of the brain were obtained without contrast. 278 images. COMPARISON: CT prior day. FINDINGS: BRAIN PARENCHYMA: Small focus of restricted diffusion in the left basal ganglia. Multiple foci and small zones of increased T2 FLAIR signal in the bilateral cerebral white matter. Chronic mild right occipital infarct. No acute intracranial hemorrhage identified. CSF SPACES: Generalized volume loss. No significant midline shift or other mass effect.No extra-axial fluid collection. VASCULAR SYSTEM: Major intracranial flow voids are maintained. PARANASAL SINUSES AND MASTOID AIR CELLS: No significant air fluid levels. ORBITS: Symmetric contents. MRI/Brain without Contrast IMPRESSION: Acute lacunar infarct in the left basal ganglia. Chronic involutional and white matter changes. Old right occipital infarct. Electronically Signed: Denisse Corcoran MD at 11:34 EDT ,
[2022-08-25] MEDS: oxyCODONE 5 MG Tablet PO (20:27)
[2022-08-25] MEDS: Lidocaine 5% Patch 1 PATCH TOPICAL (20:53)
[2022-08-25] MEDS: Atorvastatin Calcium 80 MG Tablet PO (22:48)
[2022-08-25] MEDS: Insulin Lispro 100 UNIT/ML INSULN.PEN SC (23:11)
[2022-08-25 23:52] LABS: Bedside Glucose 204 mg/dL (74-106)
[2022-08-26] VITALS (14 sets, daily range): BP systolic 119–149; BP diastolic 50–93; PULSE 61–74; RESP 16; TEMP 36.2–36.8; O2SAT 94–98; BMI 38.0
[2022-08-26] MEDS: Metoprolol Tartrate 25 MG Tablet PO ×3 (00:13→21:39)
[2022-08-26 01:46] LABS: Mucous, Urine 0 SEEN /hpf (<or=2+); Squamous Epithelial Cells - UA 0 SEEN /hpf (5-10)
[2022-08-26 01:50] LABS: Color, Urine Yellow (Yellow); Glucose, Dipstick 250 mg/dl (Normal); Ketone-Dipstick Negative (Negative); Leukocyte Esterase-Dipstick 500 /ul (Negative); Nitrite-Dipstick Positive (Negative); Occult Blood-Urine 10 /ul (Negative); Protein-Dipstick 30 mg/dl (Negative); Urine Bilirubin Dipstick Negative (Negative); Urine Clarity Clear (Clear); Urine Urobilinogen Normal (Normal)
[2022-08-26 01:56] LABS: Bacteria 2+ /hpf (None Seen); Red Blood Cells-Urine 0-5 SEEN /hpf (0-5); White Blood Cells 10-25 SEEN /hpf (0-5)
[2022-08-26] MEDS: Levothyroxine 50 MCG Tablet PO (05:46)
[2022-08-26 06:46] LABS: Absolute Lymphocyte Count 2.87 X10^3/uL (0.83-4.51); Absolute Neutrophil Count 7.3 X10^3/uL (2.0-7.7); Basophil# 0.05 X10^3/uL; Basophil% 0.5 % (0-1); Eosinophil# 0.03 X10^3/uL; Eosinophils% 0.3 % (0-5); Hematocrit 34.9 % (37-47); Hemoglobin 11.2 g/dL (12.0-15.0); Lymphocyte # 2.87 X10^3/ul (0.83-4.51); Lymphocyte % 26.1 % (19-41); Mean Corp Hgb Conc 32.1 g/dL (32-36); Mean Corpuscular Hgb 28.4 pg (27.0-32.0); Mean Corpuscular Volume 88.6 fL (81-99); Monocyte# 0.75 X10^3/uL; Monocyte% 6.8 % (0-10); NRBC Flagged by Analyzer 0 % (0-5); Neutrophil # 7.25 X10^3/uL (2.7-7.7); Neutrophil % 65.8 % (47-70); Platelet Count 440 K/mm3 (150-450); RBC Distribution Width CV 13.6 % (11.6-14.6); RBC Distribution Width SD 44.3 fl (35.1-43.9); Red Blood Count 3.94 M/mm3 (4.2-5.4)
[2022-08-26] MEDS: Insulin Lispro 100 UNIT/ML INSULN.PEN SC ×4 (07:12→21:34)
[2022-08-26 07:24] LABS: ALB/GLOB Ratio 0.8 RATIO (0.9-2.4); AST(SGOT) 14 U/L (15-37); Alanine Aminotransfer ALT/SGPT 15 U/L (13-56); Albumin, Serum 2.8 g/dL (3.2-5.0); Alkaline Phosphatase 70 U/L (45-117); Anion Gap 7 (5-15); BUN 9 mg/dL (7-18); BUN/Creat Ratio 14.2 RATIO (10-20); Calcium,Total 8.6 mg/dL (8.5-10.1); Chloride 103 mmol/L (98-107); Cholesterol 112 mg/dL (200); Creatinine, Serum 0.63 mg/dL (0.55-1.02); EST Glomerular Filtration Rate 97 mL/min (>60); Est Glom Filt Rate - Afr Amer 118 mL/min (>60); Estimated Creatinine Clearance 38.44 ml/min; Globulin 3.4 g/dL (2.2-4.2); Glucose 198 mg/dL (74-106); High Density Lipoprotein 37 mg/dL; Potassium 3.9 mmol/L (3.5-5.1); Protein, Total 6.2 g/dL (6.4-8.2); Sodium Level 137 mmol/L (136-145); Thyroid Stim Hormone (TSH) 1.47 uIU/mL (0.358-3.74); Triglycerides 112 mg/dL; Very Low Density Lipoprotein 22 mg/dL (5-40)
[2022-08-26 07:31] LABS: Bedside Glucose 201 mg/dL (74-106)
--- NOTE | 2022-08-26 11:55 | CASEMGMT ---
RN TAM Face to Face with patient for initial transition planning/care coordination assessment. RN CM introduced self and role at [facility]. Patient sitting in chair, alert and oriented, at bedside. Patient willing to participate in assessment and is able to answer all questions appropriately. Care providers, pharmacy, and demographics verified. Patient wishes to discharge home with resumption of outpatient therapy. Patient states she has no further needs or concerns at this time. CM to follow for discharge planning needs that may arise. PCP: Emili Specialists: Chan, bioinformatics support specialist; Ponce, pain Preferred Pharmacy: [facility] Insurance: [employer] [facility] Prescription Benefit: yes Living Will/HPOA: yes, Mehrdad Wilson LNOK: , daughter Living Arrangements: Patient lives with in a single story home with 4 steps and railing to enter the home. Patient is independent at home. Transportation: DME/HHC: Patient has shower chair, raised toilet, cane, walker, grab bars, glucometer at home. No previous HHC or SNF. Patient is currently attending outpatient therapy at [facility]. Disposition Plan: Patient to discharge home with resumption of outpatient therpay, family support, and follow-up plans in place. Adrianna PERSAUD, RN, CM
[2022-08-26] MEDS: Lidocaine 5% Patch 1 PATCH TOPICAL (11:57)
[2022-08-26] MEDS: Aspirin 81 MG TAB.CHEW PO (11:57)
[2022-08-26 13:39] LABS: Bedside Glucose 316 mg/dL (74-106)
--- NOTE | 2022-08-26 14:30 | CASEMGMT ---
SW completed a PHQ 9 with patient as she had a Stroke. Patient scored a 1 which indicates minimal depression. Patient declined any counseling resources. Raquel BHAGAT
--- NOTE | 2022-08-26 14:45 | PN.HOSP_ITS ---
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 (08/25/22) Other symptoms and signs involving the nervous system (08/25/22) Subjective Subjective Patient doing better today but is sleepy tired Objective Data Objective Data Vital Signs: Vital Signs Temp Pulse Resp BP Pulse Ox O2 Del Method 97.2 F L 73 16 133/55 H 98 Room Air 08/26/22 11:26 08/26/22 11:57 08/26/22 11:26 08/26/22 11:57 08/26/22 11:26 08/26/22 11:26 Oxygen Delivery Method Room Air Weight: 94.347 kg Body Mass Index (BMI) 38.0 Intake & Output: Intake and Output for Last 24 Hours 08/24/22 08/25/22 08/26/22 23:59 23:59 23:59 Intake Total 120 / 120 240 / 240 Output Total 300 / 300 600 / 600 Balance -180 / -180 -360 / -360 Lab / Micro Data Result Diagrams: 08/26/22 06:05 08/26/22 06:05 Labs: Laboratory Results - last 24 hr 08/25/22 16:00: WBC 14.1 H, RBC 4.35, Hgb 12.4, Hct 38.2, MCV 87.8, MCH 28.5, MCHC 32.5, RDW Std Deviation 43.8, RDW Coeff of Landy 13.7, Plt Count 503 H, MPV 10.0, Immature Gran % (Auto) 0.600, Neut % (Auto) 68.9, Lymph % (Auto) 23.7, [place] % (Auto) 6.2, Eos % (Auto) 0.2, Baso % (Auto) 0.4, Absolute Neuts (auto) 9.7 H, Absolute Lymphs (auto) 3.34, Nucleated RBC % 0 08/25/22 16:00: PT 14.4, INR 1.1, APTT 30.0 08/25/22 16:00: Sodium 134 L, Potassium 3.9, Chloride 101, Carbon Dioxide 25.0, Anion Gap 8, BUN 12, Creatinine 0.83, Est GFR (MDRD) Af Amer 86, Est GFR (MDRD) Non-Af 71, BUN/Creatinine Ratio 14.5, Glucose 334 H, Calcium 9.3, Troponin I High Sens 11 08/25/22 16:29: POC Glucose 316 H 08/25/22 23:05: POC Glucose 204 H 08/26/22 01:30: Urine Color Yellow, Urine Clarity Clear, Urine pH 5.0, Ur Specific Howell 1.010, Urine Protein 30 H, Urine Glucose (UA) 250 H, Urine Ketones Negative, Urine Occult Blood 10 H, Urine Nitrite Positive H, Urine Bilirubin Negative, Urine Urobilinogen Normal, Ur Leukocyte Esterase 500 H, Urine RBC 0-5 SEEN, Urine WBC 10-25 SEEN, Ur Squamous Epith Cells 0 SEEN, Urine Bacteria 2+, Urine Mucus 0 SEEN 08/26/22 06:05: Sodium 137, Potassium 3.9, Chloride 103, Carbon Dioxide 27.0, Anion Gap 7, BUN 9, Creatinine 0.63, Estim Creat Clear Calc 38.44, Est GFR (MDRD) Af Amer 118, Est GFR (MDRD) Non-Af 97, BUN/Creatinine Ratio 14.2, Glucose 198 H, Calcium 8.6, Total Bilirubin 0.80, AST 14 L, ALT 15, Alkaline Phosphatase 70, Total Protein 6.2 L, Albumin 2.8 L, Globulin 3.4, Albumin/Globulin Ratio 0.8 L, Triglycerides 112, Cholesterol 112, LDL Cholesterol 53, VLDL Cholesterol 22, HDL Cholesterol 37 L, TSH 1.47 08/26/22 06:05: WBC 11.0, RBC 3.94 L, Hgb 11.2 L, Hct 34.9 L, MCV 88.6, MCH 28.4, MCHC 32.1, RDW Std Deviation 44.3 H, RDW Coeff of Landy 13.6, Plt Count 440, MPV 10.0, Immature Gran % (Auto) 0.500, Neut % (Auto) 65.8, Lymph % (Auto) 26.1, [place] % (Auto) 6.8, Eos % (Auto) 0.3, Baso % (Auto) 0.5, Absolute Neuts (auto) 7.3, Absolute Lymphs (auto) 2.87, Nucleated RBC % 0 08/26/22 07:11: POC Glucose 201 H 08/26/22 12:01: POC Glucose 316 H Radiography Diagnostic Testing: Radiology Impression Brain CT 08/25/22 15:52 IMPRESSION: 1. No acute intracranial abnormality. There has been no change from the reference examination. 2. Stable remote right occipital infarct. There are stable underlying senescent changes with small vessel ischemia. 3. Aspects score 10. Electronically Signed: César Segura MD at 16:06 EDT , ADDENDUM: 08/25/22 1614 IMPRESSION: 1. No acute intracranial abnormality. There has been no change from the reference examination. 2. Stable remote right occipital infarct. There are stable underlying senescent changes with small vessel ischemia. 3. Aspects score 10. N.B. : The above Results were Read Back by César Segura MD to Tejas Lew MD, and understanding confirmed on 08/25/2022 16:07:57 (ET). Electronically Signed: César Segura MD at 16:06 EDT , Head/Neck CTA 08/25/22 15:52 IMPRESSION: Negative CTA carotid and CTA brain. Electronically Signed: César Segura MD at 16:23 EDT , ADDENDUM: 08/25/22 1632 IMPRESSION: Negative CTA carotid and CTA brain. N.B. : The above Results were Read Back by César Segura MD to Tejas Lew MD, and understanding confirmed on 08/25/2022 16:25:55 (ET). Electronically Signed: César Segura MD at 16:23 EDT , Chest X-Ray 08/25/22 16:42 IMPRESSION: No radiographic evidence of acute cardiopulmonary disease. Electronically Signed: César Segura MD at 17:15 EDT , Brain MRI 08/25/22 18:28 IMPRESSION: Acute lacunar infarct in the left basal ganglia. Chronic involutional and white matter changes. Old right occipital infarct. Electronically Signed: Denisse Corcoran MD at 11:34 EDT , ADDENDUM: 08/26/22 1154 IMPRESSION: Acute lacunar infarct in the left basal ganglia. Chronic involutional and white matter changes. Old right occipital infarct. N.B. : Gregoria Griffin RN, confirmed on 08/26/2022 11:47:58 (ET) that the healthcare facility has received the radiology report. Electronically Signed: Denisse Corcoran MD at 11:34 EDT , Echocardiogram 08/25/22 18:28 Interpretation Summary The left ventricular ejection fraction is 65 %. Severe mitral annular calcification. The mitral valve chordae are thickened and/or calcified. Ordering Physician: Christal Patiño Referring Physician: JONES VELASQUEZ Performed By: Wanda Lee RDCS Physical Exam Narrative General: Alert, oriented, no apparent distress, better able to answer questions today HEENT: Atraumatic, normocephalic Eyes: Anicteric, normal conjunctiva, extraocular movements grossly intact Neck: Supple Respiratory: Clear to auscultation bilaterally, normal respiratory effort Cardiovascular: Regular rate and rhythm GI: Soft, nontender, nondistended Extremities: No edema Musculoskeletal: Moving all extremities Neuro: No overt focal neurological deficits Skin: No rashes appreciated Psych: Cooperative Assessment & Plan Assessment/Plan (1) Neurologic abnormality: (2) CVA (cerebral vascular accident): QUALIFIERS: CVA mechanism: embolism Precerebral and cerebral artery: posterior cerebral artery Laterality of affected vessel: right Qualified Code(s): I63.431 - Cerebral infarction due to embolism of right poste rior cerebral artery (3) Type 2 diabetes mellitus: (4) Essential (primary) hypertension: (5) Mitral valve annular calcification: (6) Paroxysmal atrial flutter: (7) Hypothyroidism: PLAN: Plan #Expressive and receptive aphasia secondary to acute left infarct -Admit to tele -CT head w/ old stroke on right side and CTA with no large vessel occlusion -NIH q4hr -Was seen as a stroke call on arrival and was not a candidate for intervention. It was recommended she be admitted and to continue aspirin 81 mg and obtain MRI and to hold Eliquis, can consider restarting at 48 hours pending findings -asa, statin -Echo w/ bubble study -PT/OT/Speech eval -Hold BP medications to allow for permissive hypertension for 24 hours unless SBP greater than 220 or DBP greater than 120 or until stroke is ruled out -08/26: Patient had MRI that read as acute lacunar infarct in the left basal ganglia with chronic involutional white matter changes and old right occipital infarct. Telemetry neuro consulted and when they reviewed the MRI they felt that it was outside of the basal ganglia and in a spot concerning for embolic phenomenon despite her being on aspirin and Eliquis. Discussed the echocardiogram which showed EF of 65% with severe mitral annular calcification, did not comment on bubble study however on further review she did have previous negative bubble study in 2019. Neurology recommended changing aspirin to Plavix and restarting Eliquis this evening. They also recommended improving glycemic control over the long-term basis to help with risk factor modification and they recommended a TORITO to better assess the valves and to search for any cardioemboli c source. #History of CVA -History of ischemic right occipital cortical stroke in February 2020 -Follows with Dr. Lee -See above #Chronic back pain -Tylenol and oxycodone. Pain with lidocaine patch topical -Follows with Dr. Serra on outpatient basis #Paroxysmal atrial flutter -Per cardiology notes this was seen on a previous 30-day monitor -On metoprolol, holding Eliquis, presently normal sinus rhythm -Troponins within normal limits as well on arrival #Hypertension -Permissive hypertension as above #Hypothyroidism -Continue Synthroid #Type 2 diabetes mellitus -Glucose checks and sliding scale insulin -We will need to escalate glucose control upon discharge #DVT ppx: SCDs, resuming Joslyn Patiño MD Time spent in the patient's overall evaluation,decision-making process, review of diagnostic data, adjustment of management, discussion with other providers, nursing nursing and ancillary staff involved in patient's care documentation, 38 minutes Charges/Coding Visit Charges Inpatient E&M: 700[address] [facility] L3
--- NOTE | 2022-08-26 14:46 | ECHOTEE_ITS ---
Reason For Study: TIA/CVA Medication TORITO probe 6VT-D (SN [id number]) passed without difficulty. No complications were noted. Cetacaine Topical Trail given X3 orally. Versed 2 mg given slow IVP. Fentanyl 50 mcg given slow IVP. Performed a rapid injection of agitated mix of 9 cc saline and 1cc air to assess for atrial septal defect. Left Ventricle Normal LV size. Left ventricular systolic function is normal. The estimated ejection fraction is 60 %. No regional wall motion abnormalities noted. Right Ventricle Normal RV size. Normal systolic function. Atria Normal atrial septum. Intact atrial septum. Normal left atrium. No thrombus is detected in the left atrial appendage. Normal right atrium. Mitral Valve Normal mitral valve. Mild (1+) eccentric mitral valve insufficiency. Tricuspid Valve Normal tricuspid valve. Aortic Valve Normal aortic valve. Trisinus/trileaflet aortic valve. Pulmonic Valve Normal pulmonic valve. Vessels Normal aortic root. Normal arch. The pulmonary artery is normal size. Pericardium No pericardial effusion. ECHO/Echo Transesophageal (TORITO) Interpretation Summary Normal LV size. Left ventricular systolic function is normal. The estimated ejection fraction is 60 %. Intact atrial septum No source of embolus noted. Ordering Physician: Christal Patiño Referring Physician: Yasmeen Heller Performed By: Elizabeth Fonseca RDCS
[2022-08-26 18:07] LABS: Bedside Glucose 238 mg/dL (74-106)
[2022-08-26] MEDS: Atorvastatin Calcium 80 MG Tablet PO (21:39)
[2022-08-26] MEDS: APIXABAN 5 MG TABLET PO (21:39)
[2022-08-26 22:46] LABS: Bedside Glucose 175 mg/dL (74-106)
[2022-08-27] VITALS (16 sets, daily range): BP systolic 110–139; BP diastolic 47–78; PULSE 58–85; RESP 16–18; TEMP 36.2–36.9; O2SAT 94–98; BMI 38.0
[2022-08-27] MEDS: Nystatin Powder 15gm Bottle 1 APPLIC TOPICAL ×3 (03:13→23:57)
[2022-08-27 05:56] LABS: Bedside Glucose 203 mg/dL (74-106)
[2022-08-27 07:16] LABS: Absolute Lymphocyte Count 2.34 X10^3/uL (0.83-4.51); Absolute Neutrophil Count 8.3 X10^3/uL (2.0-7.7); Basophil# 0.04 X10^3/uL; Basophil% 0.3 % (0-1); Eosinophil# 0.09 X10^3/uL; Eosinophils% 0.8 % (0-5); Hemoglobin 11.9 g/dL (12.0-15.0); Lymphocyte # 2.34 X10^3/ul (0.83-4.51); Lymphocyte % 20.2 % (19-41); Mean Corp Hgb Conc 32.2 g/dL (32-36); Mean Corpuscular Hgb 28.7 pg (27.0-32.0); Mean Corpuscular Volume 89.2 fL (81-99); Monocyte# 0.77 X10^3/uL; Monocyte% 6.6 % (0-10); NRBC Flagged by Analyzer 0 % (0-5); Neutrophil # 8.31 X10^3/uL (2.7-7.7); Neutrophil % 71.7 % (47-70); Platelet Count 454 K/mm3 (150-450); RBC Distribution Width CV 13.6 % (11.6-14.6); RBC Distribution Width SD 44.6 fl (35.1-43.9); Red Blood Count 4.15 M/mm3 (4.2-5.4); White Blood Count 11.6 K/mm3 (4.4-11.0)
[2022-08-27 07:38] LABS: ALB/GLOB Ratio 0.8 RATIO (0.9-2.4); AST(SGOT) 18 U/L (15-37); Alanine Aminotransfer ALT/SGPT 19 U/L (13-56); Albumin, Serum 2.8 g/dL (3.2-5.0); Alkaline Phosphatase 73 U/L (45-117); Anion Gap 8 (5-15); BUN 11 mg/dL (7-18); Calcium,Total 8.8 mg/dL (8.5-10.1); Chloride 105 mmol/L (98-107); Creatinine, Serum 0.55 mg/dL (0.55-1.02); EST Glomerular Filtration Rate 114 mL/min (>60); Est Glom Filt Rate - Afr Amer 138 mL/min (>60); Estimated Creatinine Clearance 38.44 ml/min; Globulin 3.5 g/dL (2.2-4.2); Glucose 211 mg/dL (74-106); Potassium 3.9 mmol/L (3.5-5.1); Protein, Total 6.3 g/dL (6.4-8.2); Sodium Level 140 mmol/L (136-145)
[2022-08-27] MEDS: Metoprolol Tartrate 25 MG Tablet PO ×2 (10:48→23:56)
[2022-08-27 11:10] LABS: Bedside Glucose 202 mg/dL (74-106)
[2022-08-27] MEDS: Clopidogrel Bisulfate 75 MG Tablet PO (15:34)
[2022-08-27] MEDS: APIXABAN 5 MG TABLET PO ×2 (15:34→23:55)
[2022-08-27 16:14] LABS: Bedside Glucose 232 mg/dL (74-106)
--- NOTE | 2022-08-27 16:30 | PN.HOSP_ITS ---
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 (08/25/22) Other symptoms and signs involving the nervous system (08/25/22) Subjective Subjective Feeling better today, reports that her sciatica and shaking of actually improved as well Objective Data Objective Data Vital Signs: Vital Signs Temp Pulse Resp BP Pulse Ox O2 Del Method 97.3 F L 68 17 122/65 H 96 Room Air 08/27/22 15:28 08/27/22 15:28 08/27/22 15:28 08/27/22 15:28 08/27/22 15:28 08/27/22 15:28 Oxygen Delivery Method Room Air Weight: 94.347 kg Body Mass Index (BMI) 38.0 Intake & Output: Intake and Output for Last 24 Hours 08/25/22 08/26/22 08/27/22 23:59 23:59 23:59 Intake Total 120 / 120 920 / 920 10 Output Total 300 / 300 720 / 720 Balance -180 / -180 200 / 200 Lab / Micro Data Result Diagrams: 08/27/22 06:47 08/27/22 06:47 Labs: Laboratory Results - last 24 hr 08/26/22 17:28: POC Glucose 238 H 08/26/22 21:33: POC Glucose 175 H 08/27/22 05:35: POC Glucose 203 H 08/27/22 06:47: WBC 11.6 H, RBC 4.15 L, Hgb 11.9 L, Hct 37.0, MCV 89.2, MCH 28.7, MCHC 32.2, RDW Std Deviation 44.6 H, RDW Coeff of Landy 13.6, Plt Count 454 H, MPV 10.0, Immature Gran % (Auto) 0.400, Neut % (Auto) 71.7 H, Lymph % (Auto) 20.2, [place] % (Auto) 6.6, Eos % (Auto) 0.8, Baso % (Auto) 0.3, Absolute Neuts (auto) 8.3 H, Absolute Lymphs (auto) 2.34, Nucleated RBC % 0 08/27/22 06:47: Sodium 140, Potassium 3.9, Chloride 105, Carbon Dioxide 27.0, Anion Gap 8, BUN 11, Creatinine 0.55, Estim Creat Clear Calc 38.44, Est GFR (MDRD) Af Amer 138, Est GFR (MDRD) Non-Af 114, BUN/Creatinine Ratio 20.0, Glucose 211 H, Calcium 8.8, Total Bilirubin 0.80, AST 18, ALT 19, Alkaline Phosphatase 73, Total Protein 6.3 L, Albumin 2.8 L, Globulin 3.5, Albumin/Globulin Ratio 0.8 L 08/27/22 10:45: POC Glucose 202 H 08/27/22 15:56: POC Glucose 232 H Physical Exam Narrative General: Alert, oriented, no apparent distress HEENT: Atraumatic, normocephalic Eyes: Anicteric, normal conjunctiva, extraocular movements grossly intact Neck: Supple Respiratory: Clear to auscultation bilaterally, normal respiratory effort Cardiovascular: Regular rate and rhythm GI: Soft, nontender, nondistended Extremities: No edema Musculoskeletal: Moving all extremities Neuro: No overt focal neurological deficits Skin: No rashes appreciated Psych: Cooperative Assessment & Plan Assessment/Plan (1) Neurologic abnormality: (2) CVA (cerebral vascular accident): QUALIFIERS: CVA mechanism: embolism Precerebral and cerebral artery: posterior cerebral artery Laterality of affected vessel: right Qualified Code(s): I63.431 - 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 It was recommended she be admitted and to continue aspirin 81 mg and obtain MRI and to hold Eliquis, can consider restarting at 48 hours pending findings -asa, statin -Echo w/ bubble study -PT/OT/Speech eval -Hold BP medications to allow for permissive hypertension for 24 hours unless SBP greater than 220 or DBP greater than 120 or until stroke is ruled out -08/26: Patient had MRI that read as acute lacunar infarct in the left basal ganglia with chronic involutional white matter changes and old right occipital infarct. Telemetry neuro consulted and when they reviewed the MRI they felt that it was outside of the basal ganglia and in a spot concerning for embolic phenomenon despite her being on aspirin and Eliquis. Discussed the echocardiogram which showed EF of 65% with severe mitral annular calcification, did not comment on bubble study however on further review she did have previous negative bubble study in 2019. Neurology recommended changing aspirin to Plavix and restarting Eliquis this evening. They also recommended improving glycemic control over the long-term basis to help with risk factor modification and they recommended a TORITO to better assess the valves and to search for any cardioembolic source. -08/27: For TORITO today, results still pending. If no results requiring acute intervention and patient swallowing well and stable may be able to discharge tomorrow #History of CVA -History of ischemic right occipital cortical stroke in February 2020 -Follows with Dr. Lee -See above #Chronic back pain -Tylenol and oxycodone. Pain with lidocaine patch topical -Follows with Dr. Serra on outpatient basis #Paroxysmal atrial flutter -Per cardiology notes this was seen on a previous 30-day monitor -On metoprolol, holding Eliquis, presently normal sinus rhythm -Troponins within normal limits as well on arrival #Hypertension -Permissive hypertension as above #Hypothyroidism -Continue Synthroid #Type 2 diabetes mellitus -Glucose checks and sliding scale insulin -We will need to escalate glucose control upon discharge #DVT ppx: SCDs, resuming Eliquis Christal Patiño MD Time spent in the patient's overall evaluation,decision-making process, review of diagnostic data, adjustment of management, discussion with other providers, nursing nursing and ancillary staff involved in patient's care documentation, 36 minutes Charges/Coding Visit Charges Inpatient E&M: 01379 [facility] L3
[2022-08-27] MEDS: Insulin Lispro 100 UNIT/ML INSULN.PEN SC ×2 (16:36→23:55)
[2022-08-27] MEDS: Atorvastatin Calcium 80 MG Tablet PO (23:56)
[2022-08-28 00:23] LABS: Bedside Glucose 222 mg/dL (74-106)
[2022-08-28 05:30] VITALS: BP 134/65; PULSE 67; RESP 16; TEMP 36.6; O2SAT 96
[2022-08-28] MEDS: Nystatin Powder 15gm Bottle 1 APPLIC TOPICAL (05:32)
[2022-08-28] MEDS: Levothyroxine 50 MCG Tablet PO (05:34)
[2022-08-28 06:33] LABS: Absolute Lymphocyte Count 1.81 X10^3/uL (0.83-4.51); Absolute Neutrophil Count 7.2 X10^3/uL (2.0-7.7); Basophil# 0.04 X10^3/uL; Basophil% 0.4 % (0-1); Eosinophil# 0.07 X10^3/uL; Eosinophils% 0.7 % (0-5); Hematocrit 36.1 % (37-47); Hemoglobin 11.8 g/dL (12.0-15.0); Lymphocyte # 1.81 X10^3/ul (0.83-4.51); Lymphocyte % 18.5 % (19-41); Mean Corp Hgb Conc 32.7 g/dL (32-36); Mean Corpuscular Hgb 29.1 pg (27.0-32.0); Mean Corpuscular Volume 88.9 fL (81-99); Mean Platelet Vol. 9.8 fl (6.2-12.0); Monocyte# 0.63 X10^3/uL; Monocyte% 6.5 % (0-10); NRBC Flagged by Analyzer 0 % (0-5); Neutrophil # 7.17 X10^3/uL (2.7-7.7); Neutrophil % 73.5 % (47-70); Platelet Count 431 K/mm3 (150-450); RBC Distribution Width CV 13.6 % (11.6-14.6); RBC Distribution Width SD 44.4 fl (35.1-43.9); Red Blood Count 4.06 M/mm3 (4.2-5.4); White Blood Count 9.8 K/mm3 (4.4-11.0)
[2022-08-28] MEDS: Insulin Lispro 100 UNIT/ML INSULN.PEN SC ×2 (06:42→11:51)
[2022-08-28 07:12] LABS: Bedside Glucose 205 mg/dL (74-106)
[2022-08-28 07:13] LABS: ALB/GLOB Ratio 0.8 RATIO (0.9-2.4); AST(SGOT) 19 U/L (15-37); Alanine Aminotransfer ALT/SGPT 21 U/L (13-56); Albumin, Serum 2.9 g/dL (3.2-5.0); Alkaline Phosphatase 84 U/L (45-117); Anion Gap 7 (5-15); BUN 15 mg/dL (7-18); BUN/Creat Ratio 21.9 RATIO (10-20); Calcium,Total 9.2 mg/dL (8.5-10.1); Chloride 104 mmol/L (98-107); Creatinine, Serum 0.68 mg/dL (0.55-1.02); EST Glomerular Filtration Rate 89 mL/min (>60); Est Glom Filt Rate - Afr Amer 108 mL/min (>60); Estimated Creatinine Clearance 38.44 ml/min; Globulin 3.7 g/dL (2.2-4.2); Glucose 203 mg/dL (74-106); Potassium 3.7 mmol/L (3.5-5.1); Protein, Total 6.6 g/dL (6.4-8.2); Sodium Level 136 mmol/L (136-145)
[2022-08-28 07:36] VITALS: O2SAT 96
--- NOTE | 2022-08-28 09:21 | PCM.DC.SUM ---
Providers Date of Admission: 08/25/22 Primary Care Physician: Dr. Yasmeen Heller MD Reason For Visit: R/O CVA Diagnosis Discharge Diagnosis (1) Neurologic abnormality: Status: Acute Code(s): R29.818 - Other symptoms and signs involving the nervous system (2) CVA (cerebral vascular accident): Status: Chronic Code(s): I63.9 - Cerebral infarction, unspecified Qualifiers: CVA mechanism: embolism Laterality of affected vessel: right Precerebral and cerebral artery: posterior cerebral artery Qualified Code(s): I63.431 - Cerebral infarction due to embolism of right posterior cerebral artery (3) Type 2 diabetes mellitus: Status: Chronic Code(s): E11.9 - Type 2 diabetes mellitus without complications (4) Essential (primary) hypertension: Status: Chronic Code(s): I10 - Essential (primary) hypertension (5) Mitral valve annular calcification: Status: Chronic Code(s): I05.9 - Rheumatic mitral valve disease, unspecified (6) Paroxysmal atrial flutter: Status: Chronic Code(s): I48.92 - Unspecified atrial flutter (7) Hypothyroidism: Status: Acute Code(s): E03.9 - Hypothyroidism, unspecified Plan: Discharge diagnoses: #1. 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 Diabetes mellitus type 2 #3. Hypertension #4. Hyperlipidemia #5. Mild valvular heart disease #6. Paroxysmal atrial flutter/fibrillation #7. Hypothyroidism #8. CODE status: DNR-CCA, no intubation Medications at Discharge Home Medications losartan 50 mg tablet 50 mg PO DAILY high bp 03/15/19 metformin 500 mg tablet,extended release 24 hr See Rx Instructions .Route .COMPLEX dm 02/06/20 metoprolol tartrate 25 mg tablet 25 mg PO BID #180 tabs 12/01/21 cholecalciferol (vitamin D3) 25 mcg (1,000 unit) capsule 25 mcg PO DAILY PRN supplement 08/12/22 levothyroxine 50 mcg capsule 50 mcg PO DAILY thyroid 08/12/22 tizanidine 2 mg capsule 2 mg PO Q8H PRN Spasms 08/12/22 apixaban 5 mg tablet (Eliquis) 5 mg PO BID BLOOD THINNER 08/26/22 atorvastatin 80 mg tablet 80 mg PO QHS lower cholesterol 08/26/22 clopidogrel 75 mg tablet 75 mg PO DAILY 30 days #30 tabs 08/28/22 lidocaine 5 % topical patch 1 patch topical DAILY 15 days #15 ea 08/28/22 nystatin 100,000 unit/gram topical powder (Nyamyc) 1 applic topical TID 14 days #30 grams 08/28/22 Hospital Course Operations None Procedures EKG, Transesophageal Echo and Transthoracic echo Summary of Care Provided Minutes Spent on Discharge: 35 Hospital Course: The patient is a 76 y/o F w/ PMHx: Hx CVA on eliquis, PAF on Eliquis, HTN, HLD, Hypothyroidism, Obesity, Diabetes mellitus type II who presented to the [facility] ED on 08/28/22 with history of expressive aphasia not acting at her baseline several hours prior to presentation. He did initially report that she was in her normal state awakening at approximately 1030 with onset of abnormal behavior starting at 11:30 AM with eventual presentation with stroke alert called at 4 PM. Given timeline and on Eliquis she was not a candidate for tech to place. CT was obtained and demonstrated no large vessel occlusion. Patient mated to PCU, MRI of the brain with an acute lacunar infarct in the left basal ganglia with chronic emotional white matter changes and old right occipital infarct. Neuro did review the MRI and felt that there was a spot concerning for possible embolic phenomenon despite being on aspirin and Eliquis with echo reviewed with EF 65% and severe mitral annular calcification with prior bubble study that was negative in 2019. Neurology recommended changing aspirin to Plavix and resuming Eliquis which was performed. They also recommended TORITO which was obtained on 08/27/2022 TORITO with normal LV size, normal LV systolic function, EF 60%, intact atrial septum with no source of embolus. Per neurology recommendation patient amenable for discharge on Eliquis and Plavix with follow-up with patient's neurologist Dr. Lee with whom she has been following. DAY OF DISCHARGE PROGRESS NOTE: Subjective: Patient without acute event overnight per self and nursing report. Patient tolerated oral intake well without any further issue. Patient's expressive aphasia has completely improved and she is near her baseline per self and her spouse report. Patient denies fever, chills, nausea, emesis, abdominal pain, chest pain or dyspnea. Patient agreeable to discharge to home with ongoing outpatient home therapies. Patient will be discharged with follow-up with primary care physician within 3-5 days in addition to follow-up with nephrology to be arranged. Objective: T97.9, heart rate 67, BP 134/65, respiratory rate 16, 96% on room air. Physical Examination: General: awake, alert, oriented x 3 and cooperative, seated upright in the bedside chair, no acute distress, no evidence of any aphasia present. Skin: normal color, turgor, no icterus, cyanosis for mild bilateral extremity stasis skin changes. HEENT: AT/NC, EOMI, PERRLA, MMM. Lungs: Mildly diminished, greater assist, proper effort, no rales, ronchi or wheezing; Heart: Currently regular rate and rhythm; no gallop, rub audible. Abdomen: soft, obese, NTTP, ND, normal BS. Extremities: no cyanosis, no clubbing, see skin, mild bilateral peripheral edema. Neurological: patient awake, alert, oriented x 3; cognitive function appears intact upon questioning,; pupils equally reactive to light and accomodation; cranial nerves II-XII grossly normal, moving all 4 extremities, strength mildly global decreased, improved, expressive aphasia completely resolved. Psychiatric: affect appears normal, no acute evidence of depressive or anxiety feelings. Assessment and Plan: Please see hospital summary above. Weight / BMI Weight Weight: 207 lb 15.992 oz Body Mass Index (BMI) 38.0 ABG / Lab / Microbiology Data Result Diagrams: 08/28/22 06:17 08/28/22 06:17 Laboratory: Laboratory Results - last 24 hr 08/27/22 10:45: POC Glucose 202 H 08/27/22 15:56: POC Glucose 232 H 08/27/22 23:42: POC Glucose 222 H 08/28/22 06:17: WBC 9.8, RBC 4.06 L, Hgb 11.8 L, Hct 36.1 L, MCV 88.9, MCH 29.1, MCHC 32.7, RDW Std Deviation 44.4 H, RDW Coeff of Landy 13.6, Plt Count 431, MPV 9.8, Immature Gran % (Auto) 0.400, Neut % (Auto) 73.5 H, Lymph % (Auto) 18.5 L, [place] % (Auto) 6.5, Eos % (Auto) 0.7, Baso % (Auto) 0.4, Absolute Neuts (auto) 7.2, Absolute Lymphs (auto) 1.81, Nucleated RBC % 0 08/28/22 06:17: Sodium 136, Potassium 3.7, Chloride 104, Carbon Dioxide 25.0, Anion Gap 7, BUN 15, Creatinine 0.68, Estim Creat Clear Calc 38.44, Est GFR (MDRD) Af Amer 108, Est GFR (MDRD) Non-Af 89, BUN/Creatinine Ratio 21.9 H, Glucose 203 H, Calcium 9.2, Total Bilirubin 0.80, AST 19, ALT 21, Alkaline Phosphatase 84, Total Protein 6.6, Albumin 2.9 L, Globulin 3.7, Albumin/Globulin Ratio 0.8 L 08/28/22 06:40: POC Glucose 205 H Radiography Diagnostic Testing: Radiology Impression Transesophageal Echocardiogram 08/26/22 14:46 Interpretation Summary Normal LV size. Left ventricular systolic function is normal. The estimated ejection fraction is 60 %. Intact atrial septum No source of embolus noted. Ordering Physician: Christal Patiño Referring Physician: Yasmeen Heller Performed By: Elizabeth Fonseca RDCS Meaningful Use Info Meaningful Use Diagnoses (Choose all that apply): Ischemic CVA CVA Therapy Assessed for PT,OT and/or ST?: Yes Ischemic Stroke Antithrombotic order at d/c?: Yes Dx of Atrial fib/flutter?: Yes Anticoagulant at discharge?: Yes Statins at discharge?: Yes Primary Dx Acute Ischemic CVA?: Yes IV thrombolytic ordered during stay?: No Reason IV thrombolytic not ordered: Treatment not Indicated Discharge Plan Admission Admit Date/Time: 08/25/22 18:13 Primary Reason for Your Visit: Acute Ischemic Stroke Attending Provider: Bea Gregg Primary Care Provider: Yasmeen Heller Consulting Providers: Christal Patiño Instructions Patient Instructions: Stroke: Taking Medicines, Stroke: Resources and Support, Discharge Instructions for Stroke Additional Instructions / Restrictions: ADDITIONAL FOLLOW-UP/INSTRUCTIONS/HOSPITAL SUMMARY REVIEW: CT was obtained and demonstrated no large vessel occlusion.? MRI of the brain with an acute lacunar infarct in the left basal ganglia with chronic emotional white matter changes and old right occipital infarct.? Neuro did review the MRI and felt that there was a spot concerning for possible embolic phenomenon despite being on aspirin and Eliquis with echo reviewed with EF 65% and severe mitral annular calcification with prior bubble study that was negative in 2019.?Thus the transesophageal echocardiogram was obtained 08/27/2022 with normal LV size, normal LV systolic function, EF 60%, intact atrial septum with no source of embolus. Neurology recommended changing aspirin to Plavix and resuming Eliquis which was performed.? Follow-up requested with both your primary care physician and Neurology as noted. Please continue outpatient therapies as arranged. Discharge Orders/Prescriptions Prescriptions: New nystatin [[facility]] 100,000 unit/gram Powder 1 applic topical TID 14 Days Qty: 30 0RF Protocol: *Topical Application Instructions APPLICATION INSTRUCTIONS: To affected areas Rx Instructions: May d/c once fungal infection resolved. lidocaine 5 % Adhesive Patch,Medicated 1 patch topical DAILY 15 Days Qty: 15 0RF Protocol: *Topical Application Instructions APPLICATION INSTRUCTIONS: Lower back Rx Instructions: Place lidocaine patch to affected region. clopidogrel 75 mg Tablet 75 mg PO DAILY 30 Days Qty: 30 0RF Continued cholecalciferol (vitamin D3) 25 mcg (1,000 unit) capsule 25 mcg PO DAILY PRN (Reason: supplement) levothyroxine 50 mcg capsule 50 mcg PO DAILY tizanidine 2 mg capsule 2 mg PO Q8H PRN (Reason: Spasms) losartan 50 MG tablet 50 mg PO DAILY metformin 500 MG tablet See Rx Instructions .ROUTE .COMPLEX Rx Instructions: 500 mg tablet in Am and 1000 mg in pm Eliquis 5 mg tablet 5 mg PO BID atorvastatin 80 mg tablet 80 mg PO QHS metoprolol tartrate 25 mg tablet 25 mg PO BID Qty: 180 3RF Discontinued aspirin 81 MG tablet,chewable 81 mg PO DAILY@0800 Referrals / Follow Up: Yasmeen Heller MD [Primary Care Provider] - (Follow-up in 3-5 days to review admission.) Fabiano Lee MD [Non-Staff -Ordering Privileges] - (Follow-up with Neurology at next open visit to review admission and establish.) Disposition Disposition (needs filled in before D/C Order can be placed): Home Health Service Charges/Coding Visit Charges Inpatient E&M: 83888 Disch Hosp >30min
[2022-08-28 10:04] VITALS: BP 131/76; PULSE 85; RESP 18; TEMP 36.5; O2SAT 95
[2022-08-28 11:04] VITALS: PULSE 85
[2022-08-28] MEDS: Metoprolol Tartrate 25 MG Tablet PO (11:04)
[2022-08-28] MEDS: Clopidogrel Bisulfate 75 MG Tablet PO (11:05)
[2022-08-28 12:05] LABS: Bedside Glucose 245 mg/dL (74-106)
--- NOTE | 2022-08-28 12:24 | DCINST_ITS ---
Discharge Instructions Diet Discharge Diet: Low fat / Low cholesterol and 1800 Calorie Control Diet Activity Discharge Activity: Return to Normal Activity Dressing / Incision Call your doctor if you observe: Fever of 101 or Higher, Numbness or Tingling, Shortness of breath, Swelling in the ankles, Chest pain, Increased palpitations (irregular heartbeat) and Uncontrolled pain Follow Up Care Test Results: Test results from this visit will be discussed in further detail at your follow- up appointment, if applicable. Discharge Plan Admission Admit Date/Time: 08/25/22 18:13 Primary Reason for Your Visit: Acute Ischemic Stroke Attending Provider: Bea Gregg Primary Care Provider: Yasmeen Heller Consulting Providers: Christal Patiño Instructions Patient Instructions: Stroke: Taking Medicines, Stroke: Resources and Support, Discharge Instructions for Stroke Additional Instructions / Restrictions: ADDITIONAL FOLLOW-UP/INSTRUCTIONS/HOSPITAL SUMMARY REVIEW: CT was obtained and demonstrated no large vessel occlusion.? MRI of the brain with an acute lacunar infarct in the left basal ganglia with chronic emotional white matter changes and old right occipital infarct.? Neuro did review the MRI and felt that there was a spot concerning for possible embolic phenomenon despite being on aspirin and Eliquis with echo reviewed with EF 65% and severe mitral annular calcification with prior bubble study that was negative in 2019.?Thus the transesophageal echocardiogram was obtained 08/27/2022 with normal LV size, normal LV systolic function, EF 60%, intact atrial septum with no source of embolus. Neurology recommended changing aspirin to Plavix and resuming Eliquis which was performed.? Follow-up requested with both your primary care physician and Neurology as noted. Please continue outpatient therapies as arranged. Discharge Orders/Prescriptions Prescriptions: New nystatin [Nyamyc] 100,000 unit/gram Powder 1 applic topical TID 14 Days Qty: 30 0RF Protocol: *Topical Application Instructions APPLICATION INSTRUCTIONS: To affected areas Rx Instructions: May d/c once fungal infection resolved. lidocaine 5 % Adhesive Patch,Medicated 1 patch topical DAILY 15 Days Qty: 15 0RF Protocol: *Topical Application Instructions APPLICATION INSTRUCTIONS: Lower back Rx Instructions: Place lidocaine patch to affected region. clopidogrel 75 mg Tablet 75 mg PO DAILY 30 Days Qty: 30 0RF Continued cholecalciferol (vitamin D3) 25 mcg (1,000 unit) capsule 25 mcg PO DAILY PRN (Reason: check with primary md) levothyroxine 50 mcg capsule 50 mcg PO DAILY tizanidine 2 mg capsule 2 mg PO Q8H PRN losartan 50 MG tablet 50 mg PO DAILY metformin 500 MG tablet See Rx Instructions .ROUTE .COMPLEX Rx Instructions: 500 mg tablet in Am and 1000 mg in pm Eliquis 5 mg tablet 5 mg PO BID atorvastatin 80 mg tablet 80 mg PO QHS metoprolol tartrate 25 mg tablet 25 mg PO BID Qty: 180 3RF Discontinued aspirin 81 MG tablet,chewable 81 mg PO DAILY@0800 Referrals / Follow Up: Yasmeen Heller MD [Primary Care Provider] - (Follow-up in 3-5 days to review admission.) Fabiano Lee MD [Non-Staff -Ordering Privileges] - (Follow-up with Neurology at next open visit to review admission and establish.) Disposition Disposition (needs filled in before D/C Order can be placed): Home Health Service
[2022-08-28 12:45] VITALS: BMI 38.0
[2022-08-28] MEDS: APIXABAN 5 MG TABLET PO (12:53)
[2022-08-28 14:08] VITALS: BP 156/73; PULSE 84; RESP 18; TEMP 36.8; O2SAT 96
== END 2022-08-28 03:15 | disposition home health service (06) | DRG 66 ==
LOC: ED 17:00 → PCU 18:16
PROVIDERS: Admitting Provider Internal Medicine; Emergency Provider Emergency Medicine; PCP Internal Medicine; Visit Provider Family Medicine
DX: I63.431 Cerebral infarction due to embolism of right posterior cerebral artery (principal); R47.01 Aphasia; E11.65 Type 2 diabetes mellitus with hyperglycemia; I48.0 Paroxysmal atrial fibrillation; E03.9 Hypothyroidism, unspecified; I10 Essential (primary) hypertension; E78.5 Hyperlipidemia, unspecified; I25.10 Atherosclerotic heart disease of native coronary artery without angina pectoris; I25.2 Old myocardial infarction; M54.30 Sciatica, unspecified side; I34.81 Nonrheumatic mitral (valve) annulus calcification; E66.9 Obesity, unspecified; G89.29 Other chronic pain; R29.706 NIHSS score 6; Z68.39 Body mass index [BMI] 39.0-39.9, adult; Z66 Do not resuscitate; Z79.01 Long term (current) use of anticoagulants; Z79.02 Long term (current) use of antithrombotics/antiplatelets; Z79.84 Long term (current) use of oral hypoglycemic drugs; Z79.891 Long term (current) use of opiate analgesic; Z79.899 Other long term (current) drug therapy; Z86.73 Personal history of transient ischemic attack (TIA), and cerebral infarction without residual deficits; Z82.3 Family history of stroke
CPT/HCPCS: 36415; 70450; 70496; 70498; 70551; 71045; 80048; 80053; 80061; 81001; 82962; 84443; 84484; 85025; 85610; 85730; 87077; 87086; 87088; 87186; 92610; 93005; 93306; 93312; 93320; 93325; 94762; 97110; 97116; 97162; 97166; 97530; 97535; 99285; J7040; Q9967; A4216

== ENCOUNTER 2022-10-05 14:00 | Outpatient (RCR) | payer MEDICARE, SELFPAY ==
--- NOTE | 2022-07-22 11:53 | HP.PTEVAL ---
Patient's Visit Information RAMÓN CANADA is a 76 year old F referred to Physical Therapy by ALEXA BLUE NP-C with a diagnosis of R sided sciatica.. Date of Evaluation: 07/22/22 Physical Therapist: Bulmaro Brown, WILMERT, OCS, CSCS - Visit Plan Frequency: 2x /Week Duration: 4-6 Weeks Plan: 2x/week for 4-6 weeks.. 1. ROM pelvis and lumbar progression. 2. stretch Psoas and HS. 3. DLS core strength supine to prone to sitting barrie standing. HEP. 4. TENS with MH as needed. given PT adn trunk rotation today along with pain management doctor names, recommendation of wh walker with pics for gait distance and safety, recommendation of sleeping position - Subjective ALBINA present. Has LBP and leg discomfort since early June insidiously. LBP is common in the past and leg R anterior is not. Has tried heat, ice, change of psoitions. Uses cane now for walking. Saw doctor and x ray. Patches help a little bit. Gave muscle relaxer which helps a little and takes two hours and makes her tired. sleeping is poor and up to 9/10 lying in bed at times. tried PPU whcih ehlp a little bit. No other regular exercises. Did not need a cane prior to . 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 Spends day reading and TV prior to . Less comfortable now. Granddaughter graduation in [place] this weekend. To pain management first time in October 01. - Pain LBP and R ant leg Pain Intensity (Out of 10): 4 Pain Intensity Range: 0, 9 - Objective Walks with cane with R antlagia and trendelenberg hunched over and resting in standing every [address] back to room but mod I. Walks out with wh walker hunched but no antalgia and non need to rest. Transfers bed adn chair slowly but I, care ful with UE support of R hip. reflexes 2/3 patella and achilles. Sensation LE WNL to gross light touch but gets numbness upons standing /walking in R thigh. strength LE 4- without myotomal abnormalities. L/s AROM is poor and limited extension adn flexion and painful. Poor pelvic control adn movement. ab and back ext strength 3/5. Tender to PA pressure Lumbar spine. - slump, - SLR test. + instability test with UE in sitting. - Balance/Special Test Scores Oswestry Low Back Score: 35 - Goals Goal 1:: Patient able to ambulate 300 feet without pain or hunching over Goal Time Frame: 4-6 Weeks Goal 2:: Patient feel 75% better in overall pain level at 2/10 at worst and manageable Goal Time Frame: 4-6 Weeks Goal 3:: I HEP strength adn ROm LB and posture and activitiy modification Goal Time Frame: 4-6 Weeks Goal 4:: oswestry score 10 or better Goal Time Frame: 4-6 Weeks - Rehabilitation Potential Physical Therapy Diagnosis: Lumbar instabiliyt, OA and compression fx.Awaiting pain management Rehabilitation Potential: Fair - Anticipated Interventions Patient/Client Instruction: Educate patient on: Condition, Plan of Care For the Purpose of:: To decrease pain, To increase ROM, To improve nutrient delivery to tissue, To improve muscle performance and motor function, To increase tolerance to activity/condition/position, To improve ability of physical actions for home/community/work/leisure, To improve gait and locomotor functions Therapeutic Exercise to Include: Strength training, Postural training, Flexibilty training, Gait and locomotor training, Passive ROM, Active ROM, Dynamic Lumbar Stabilization For the Purpose of:: To decrease pain, To increase ROM, To improve nutrient delivery to tissue, To improve muscle performance and motor function, To increase tolerance to activity/condition/position, To improve ability of physical actions for home/community/work/leisure TENS: Yes Thermo therapy (hot pack): Yes For the Purpose of:: To decrease pain Thank you for the opportunity to evaluate your patient. For Medicare and Medicare HMO plans, please review the plan of care and approve it. It will need to be FAXED BACK to us at [phone] for Medicare purposes. For Medicare only, by signing this I certify the plan of care. Please let me know if there are questions or concerns regarding this plan of care. Physician Signature: Date:
--- NOTE | 2022-09-21 14:36 | HP.PTREVAL_ITS ---
Re-Evaluation Intro: ALEXA BLUE, HOME [employer]ION [employer]ENT[employer], It has been my pleasure to treat RAMÓN CANADA over the last 15 visits for R sided sciatica.. Please see the progress note below for an update on the physical therapy plan of care! Subjective Subjective: Stronger, my leg doesn't feel like it will give out. LBP much better and gone since stroke. No falls in last month. Uses wh walker to get around. Activity at home are better, started laundry this past week carrying it with on ehand and guiding with walker. Steps to leave house are better with walker and cane. HEP going well at home with stretches. Wants to try with HEP reviewed with her today. Objective Objective/Function: Subjectively doing well and wants to try on her own. Back pain significantly better, Still feels weak in R LE from stroke but improving. Plan Plan Plan: f/u two weeks for likely d/c but check walking with cane for safety, she will use wh walker until then. New POC to monitor progress for next 23- weeks and progress HEP as needed/desired. Balance/Gait/Functional tests Balance/Special Test Scores Oswestry Low Back Score: 12 Goals Goals Goal 1:: Patient able to ambulate 300 feet without pain or hunching over Goal Time Frame: 4-6 Weeks Goal Progress: Goal Met Goal 2:: Patient feel 75% better in overall pain level at 2/10 at worst and ma nageable Goal Time Frame: 4-6 Weeks Goal Progress: Goal Met Goal 3:: I HEP strength adn ROm LB and posture and activitiy modification Goal Time Frame: 4-6 Weeks Goal Progress: Goal Met Goal 4:: oswestry score 10 or better Goal Time Frame: 4-6 Weeks Goal Progress: Progressing Goal 5:: FGA score of 22 and walk safely with cane I at home. Goal Time Frame: 2-4 Weeks Goal Progress: NEW GOAL Anticipated Interventions Anticipated Interventions Patient/Client Instruction: Educate patient on: Condition and Plan of Care For the Purpose of:: To decrease pain, To increase ROM, To improve nutrient delivery to tissue, To improve muscle performance and motor function, To increase tolerance to activity/condition/position, To improve ability of physical actions for home/community/work/leisure and To improve gait and locomotor functions Therapeutic Exercise to Include: Strength training, Postural training, Flexibilty training, Gait and locomotor training, Passive ROM, Active ROM and Dynamic Lumbar Stabilization For the Purpose of:: To decrease pain, To increase ROM, To improve nutrient delivery to tissue, To improve muscle performance and motor function, To increase tolerance to activity/condition/position and To improve ability of physical actions for home/community/work/leisure TENS: Yes Thermo therapy (hot pack): Yes For the Purpose of:: To decrease pain Re-Evaluation Ending Re-evaluation ending: Please do not hesitate to contact me at [phone] by phone or if you have questions or concerns regarding this new plan of care! Sincerely, Bulmaro Brown, DPT, OCS, CSCS
--- NOTE | 2022-10-05 14:12 | HP.PTDCSUM ---
Discharge Summary D/C summary: It has been my pleasure to treat RAMÓN CANADA referred by ALEXA BLUE, [employer]PER[employer], with the diagnosis of R sided sciatica. for a total of 16 visit(s). Discharge Date: 10/05/22 Please see the following information for a summary of their discharge status. Subjective Subjective: Been pretty good for the last couple weeks. No back pain. Exercise 1x/day. using wh walker to get around. Going the right way. Hernandez ee doctor at some point. Pain LBP and R ant leg: Pain Intensity (Out of 10): 2 Overall Improvement % Improvement: 80 Objective Objective/Function: FGA is about normal for age today, walking around well without dizzyness or LOB. Weakness on L LE on step requires UE but otherwise does real well. Goals Goal 1:: Patient able to ambulate 300 feet without pain or hunching over Goal Progress: Goal Met Goal 2:: Patient feel 75% better in overall pain level at 2/10 at worst and manageable Goal Progress: Goal Met Goal 3:: I HEP strength adn ROm LB and posture and activitiy modification Goal Progress: Goal Met Goal 4:: oswestry score 10 or better Goal Progress: Progressing Goal 5:: FGA score of 22 and walk safely with cane I at home. Goal Progress: Goal Met Plan Plan: d/c to HEP D/C Information d/c sentence: If there are questions or concerns regarding this patient's physical therapy, please feel free to call me at [phone]. Thank you for the referral of this patient. Sincerely, Bulmaro Brown, DPT, OCS, CSCS Balance/Gait/Functional tests Balance/Special Test Scores Functional Gait Assessment Score: 25 % Disability: 16.6700 Oswestry Low Back Score: 12
== END 2022-10-05 19:00 | disposition home or self-care (01) ==
LOC: PT 14:00
PROVIDERS: PCP Internal Medicine; Referring Provider Nurse Practitioner; Visit Provider Nurse Practitioner
DX: M54.41 Lumbago with sciatica, right side (principal)
CPT/HCPCS: 97110; 97161; 97164; 97530

== ENCOUNTER 2024-09-08 10:04 | Emergency (ER) | payer MEDICARE, SELFPAY ==
[2024-09-08 10:05] VITALS: BP 103/51; PULSE 64; RESP 16; TEMP 36.5; O2SAT 100; BMI 34.5
[2024-09-08 11:08] LABS: Hematocrit 37.7 % (37-47); Hemoglobin 12.1 g/dL (12.0-15.0); Immature Granulocytes Count 0.030 X10^3/uL (0.0-0.0); Mean Corp Hgb Conc 32.1 g/dL (32-36); Mean Corpuscular Volume 84.3 fL (81-99); Mean Platelet Vol. 9.8 fl (6.2-12.0); NRBC Flagged by Analyzer 0 % (0-5); Platelet Count 456 K/mm3 (150-450); RBC Distribution Width CV 15.8 % (11.6-14.6); RBC Distribution Width SD 48.9 fl (35.1-43.9); Red Blood Count 4.47 M/mm3 (4.2-5.4); White Blood Count 11.4 K/mm3 (4.4-11.0)
--- NOTE | 2024-09-08 11:19 | CT_ITS ---
PROCEDURE: ABDOMEN/PELVIS W IV CONT ONLY 09/08/2024 REASON FOR EXAM: L FLANK AND LLQ PAIN TECHNIQUE: ABDOMEN/PELVIS W IV CONT ONLY Coronal and Sagittal reconstruction series were provided. CONTRAST: 100 mL of Isovue 370 One or more dose reduction techniques were used (e.g., Automated exposure control, adjustment of the mA and/or kV according to patient size, use of iterative reconstruction technique. RADIATION DOSE SUMMARY: DLP: 1066 mGycm COMPARISON: 03/15/21 FINDINGS: Limited sections of the lung bases demonstrate no focal pulmonary mass or consolidations. Bibasilar subsegmental atelectasis. The liver, spleen, pancreas, and both adrenal glands demonstrate no acute findings. The gallbladder is surgically absent. Small hiatal hernia; otherwise unremarkable stomach. The small bowel loops are not dilated. The appendix is normal. No colonic obstruction. There is no free air or significant free fluid. 6 mm and 4 mm obstructive stones at the distal left ureter and UVJ, respectively, with associated moderate hydronephrosis and perinephric stranding. The right collecting system is unremarkable. The urinary bladder is partially distended. The pelvic structures are intact. There is no solid pelvic mass. No significant lymphadenopathy. The aorta and IVC demonstrate no acute findings. moderate atherosclerosis of the abdominal vasculature. Visualized osseous structures demonstrate no acute abnormality. CT/Abdomen/Pelvis W IV Cont ONLY IMPRESSION: 6 mm and 4 mm obstructive stones at the distal left ureter and UVJ, respectivel y, with associated moderate hydronephrosis and perinephric stranding. Reading Location: [id number]
--- NOTE | 2024-09-08 11:20 | EX.ED.DYSGE1 ---
HPI History of Present Illness Chief Complaint: Flank Pain Narrative Narrative: Patient is a 78-year-old female with past medical history of hypertension, diabetes, CVA, paroxysmal atrial flutter on Eliquis who presented to the emergency department the chief complaint of left flank pain. Patient states that this developed last night and persisted this morning therefore she came here for further evaluation management. Patient states that she did not know if she had a urinary tract infection therefore she came here for further evaluation management. Patient denies any recent sick contacts. Patient states that she does have nausea and dry heaves. Patient denies any history of smoking [facility] Medical History History of hypertension History of diabetes mellitus History of stroke Receptive aphasia Expressive aphasia Hypothyroidism Nonobstructive atherosclerosis of coronary artery Nonsustained paroxysmal ventricular tachycardia Paroxysmal atrial flutter Mitral valve annular calcification History of non-ST elevation myocardial infarction (NSTEMI) (02/06/20) Essential (primary) hypertension CVA (cerebral vascular accident) Visual changes Hyperlipidemia Type 2 diabetes mellitus Home Medications ?Medication ?Instructions ?Recorded ?Last Taken ?Type atorvastatin 80 mg tablet 80 mg PO QHS lower cholesterol 08/26/22 Unknown History clopidogrel 75 mg tablet 75 mg PO DAILY 30 days #30 tabs 08/28/22 Unknown Rx empagliflozin 25 mg tablet 25 mg PO DAILY 08/09/23 Unknown History (Jardiance) apixaban 5 mg tablet (Eliquis) 5 mg PO BID #180 TABLETS 09/06/24 Unknown Rx levothyroxine 50 mcg tablet 50 mcg PO QDAY disorder of thyroid 09/06/24 Unknown History gland losartan 25 mg tablet 25 mg PO DAILY high bp #90 tabs 09/06/24 Unknown Rx metformin 500 mg tablet,extended 1,000 mg PO BID dm 09/06/24 Unknown History release 24 hr metoprolol tartrate 25 mg tablet 25 mg PO BID #180 tabs 09/06/24 Unknown Rx ciprofloxacin HCl 500 mg tablet 500 mg PO BID 5 days #10 tabs 09/08/24 Unknown Rx ondansetron 4 mg disintegrating 4 mg PO Q6H PRN nausea and 09/08/24 Unknown Rx tablet vomiting #20 tabs oxycodone-acetaminophen 5 mg-325 1 tab PO Q6H PRN pain 3 days #12 09/08/24 Unknown Rx mg tablet (Endocet) tabs tamsulosin 0.4 mg capsule 0.4 mg PO DAILY #14 caps 09/08/24 Unknown Rx Allergy/AdvReac Type Severity Reaction Status Date / Time Penicillins Allergy Rash Verified 09/08/24 10:05 propoxyphene (From Darvon) AdvReac Nausea/Vom/ Verified 09/08/24 10:05 Diarrhea Family History Father Myocardial infarction Brother Myocardial infarction Mother CVA (cerebral vascular accident) Heart disease Grandmother Myocardial infarction Uncle Myocardial infarction Surgical History History of cataract extraction History of left heart catheterization (04/01/20) History of cholecystectomy History of hernia repair Social History Smoking Status: Never smoker Electronic Cigarette Use: not used second hand exposure: Yes alcohol intake: current alcohol intake frequency: holidays/special occasions only Alcohol type: wine substance use type: does not use ROS ROS ED ROS Narrative Constitutional: Denies fever, chills, headaches Cardiovascular: Denies chest pain Respiratory: Shortness of breath Abdomen: Complains of dry heaves as noted above denies diarrhea denies abdominal pain : Denies painful urination, hematuria or polyuria Neurological: Denies numbness, wheeze, tingling Musculoskeletal: Complains of left back pain as noted above Skin: Denies any rashes or lesions EXAM Physical Exam Narrative Exam Narrative: General: Patient was lying in bed rest comfortably did not appear to be acute distress Head: Atraumatic, normocephalic Eyes: PERRL bilaterally, EOMI bilateral, no conjunctival injection noted Neck: Soft, supple, trachea midline Cardiovascular: Regular rate and rhythm Respiratory: Clear to auscultation bilaterally Abdomen: Soft, nondistended, tenderness palpation left lower quadrant no rebound or guarding on exam Musculoskeletal: No CVA tenderness noted bilaterally, no midline tenderness palpation midline of the thoracic lumbar spine Extremities: +5/5 strength noted in the bilateral upper and lower extremities, radial pulses +2/4 in the bilateral extremities Neurological: Patient following commands knew that she was at [facility] year is 2024 Skin: Warm, dry contact no rashes or lesions noted Const Vital Signs: 07/04/25 10:05 09/08/24 12:04 Temperature 97.7 F L Temperature Source Oral Pulse Rate 64 84 Respiratory Rate 16 16 Blood Pressure 103/51 L 110/55 L Blood Pressure Mean 68 73 Pulse Ox 100 99 Oxygen Delivery Method Room Air [facility] Narrative Medical decision making narrative: Patient is a 78-year-old female who presents to the emerged part with chief complaint of left flank pain. On the differential diagnose includes but not limited to UTI, pyelonephritis, urolithiasis, infected stone, diverticulitis. Once workup is obtained reviewed she will be reevaluated. Patient will be given fluids morphine Zofran. Patient's CBC reviewed showed a white blood count of 11,000, hemoglobin is 12.1, platelet count was 456. Patient sodium was 140, potassium normal at 4.7, creatinine was 0.74. Patient's AST and ALT are 23 and 15 respectively patient's urinalysis showed positive nitrates 500 leukocyte esterase greater than 100 white cells with rare bacteria. Patient will be given a dose of ciprofloxacin here in the emergency department she will be given a prescription for this. Patient's urine will be sent for culture. Patient CT abdomen pelvis with IV contrast reviewed and showed a 6 mm and 4 mm obstructive stone at the distal left ureter and UVJ respectively with associated moderate hydro and perinephric stranding. No urology on-call today or for the month of September Patient is feeling much better she would like to go home at this point time. Patient be placed on ciprofloxacin with instructions to follow-up with urology in the outpatient setting. Will be given first dose here in the emergency department. She will be encouraged to return with worsening symptoms or any concerns. She will be given prescriptions also for Endocet and Zofran as well as Flomax she was advised to also use Tylenol for mild to moderate pain. Her family numbers at bedside also agreeable this plan all course concerns answered she was discharged home in stable condition. Lab Data Labs: Laboratory Results - last 24 hr 09/08/24 09/08/24 10:35 13:10 WBC 11.4 H RBC 4.47 Hgb 12.1 Hct 37.7 MCV 84.3 MCH 27.1 MCHC 32.1 RDW Std Deviation 48.9 H RDW Coeff of Landy 15.8 H Plt Count 456 H MPV 9.8 Immature Gran % (Auto) 0.300 Neut % (Auto) 84.5 H Lymph % (Auto) 10.2 L [place] % (Auto) 4.6 Eos % (Auto) 0.0 Baso % (Auto) 0.4 Absolute Neuts (auto) 9.7 H Absolute Lymphs (auto) 1.17 Nucleated RBC % 0 Sodium 140 Potassium 4.7 Chloride 103 Carbon Dioxide 22.9 Anion Gap 14 BUN 15 Creatinine 0.74 Estim Creat Clear Calc 59.83 Est GFR (MDRD) Non-Af 84 BUN/Creatinine Ratio 20.2 H Glucose 148 H Calcium 9.9 Total Bilirubin 0.62 AST 23 ALT 15 Alkaline Phosphatase 67 Total Protein 7.1 Albumin 4.2 Globulin 3.0 Albumin/Globulin Ratio 1.4 Urine Color Yellow Urine Clarity Cloudy Urine pH 5.0 Ur Specific [place] 1.010 Urine Protein 30 H Urine Glucose (UA) 1000 H Urine Ketones Negative Urine Occult Blood 150 H Urine Nitrite Positive H Urine Bilirubin Negative Urine Urobilinogen Normal Ur Leukocyte Esterase 500 H Urine RBC 0 SEEN Urine WBC >100 SEEN Ur Squamous Epith Cells 0 SEEN Urine Bacteria RARE Urine Mucus 0 SEEN Radiography Diagnostic Testing: Clinical Impression(s) from Imaging Studies Abdomen/Pelvis CT 09/08/24 11:19 IMPRESSION: 6 mm and 4 mm obstructive stones at the distal left ureter and UVJ, respectively, with associated moderate hydronephrosis and perinephric stranding. Reading Location: [facility] Discharge Plan Triage Chief Complaint: Flank Pain ED Provider: Karl Wall Dx/Rx/DC Orders Clinical Impression: Urolithiasis, Left flank pain Prescriptions: New oxycodone-acetaminophen [Endocet] 5-325 mg tablet 1 tab PO Q6H PRN (Reason: pain) 3 Days Qty: 12 0RF ondansetron 4 mg tablet,disintegrating 4 mg PO Q6H PRN (Reason: nausea and vomiting) Qty: 20 0RF tamsulosin 0.4 mg capsule 0.4 mg PO DAILY Qty: 14 0RF ciprofloxacin HCl 500 mg tablet 500 mg PO BID 5 Days Qty: 10 0RF No Action Jardiance 25 mg tablet 25 mg PO DAILY levothyroxine 50 mcg tablet 50 mcg PO QDAY losartan 25 mg tablet 25 mg PO DAILY Qty: 90 3RF metoprolol tartrate 25 mg tablet 25 mg PO BID Qty: 180 3RF Eliquis 5 mg tablet 5 mg PO BID Qty: 180 3RF metformin 500 mg tablet extended release 24 hr 1,000 mg PO BID atorvastatin 80 mg tablet 80 mg PO QHS clopidogrel 75 mg Tablet 75 mg PO DAILY 30 Days Qty: 30 0RF Primary Care Provider: ALEXA BLUE Referrals: Aretha Pollock MD [Med Staff - Active Staff] - ALEXA BLUE NP-C [Primary Care Provider] - Activity Restrictions/Additional Instructions: Take antibiotics as prescribed use other prescriptions as prescribed use the Endocet for severe pain make sure you take a Zofran with this as this will upset your stomach. Use Tylenol for mild to moderate pain. Follow-up with the urologist I referred to. Return with worsening symptoms or other concerns. Your CT scan did show evidence of kidney stones. Print Language: Indonesian Disposition Disposition: Home, Self Care
[2024-09-08] MEDS: 0.9% Normal Saline (1000mL) 1,000 ML 999 ML IV (11:28)
[2024-09-08 11:44] LABS: AST(SGOT) 23 U/L (<=31); Alanine Aminotransfer ALT/SGPT 15 U/L (<=34); Albumin, Serum 4.2 g/dL (3.4-4.8); Alkaline Phosphatase 67 U/L (35-104); Anion Gap 14 (5-15); BUN 15 mg/dL (4-19); BUN/Creat Ratio 20.2 RATIO (10-20); Calcium,Total 9.9 mg/dL (7.6-11.0); Carbon Dioxide 22.9 mmol/L (21.0-32.0); Chloride 103 mmol/L (98-108); Estimated Creatinine Clearance 59.83 ml/min (50-250); Globulin 3.0 g/dL (2.2-4.2); Glucose 148 mg/dL (70-99); Potassium 4.7 mmol/L (3.3-5.1)
--- OUTSIDE RECORDS SUMMARY | 2024-09-08 11:49 | XMS RPT_ITS | CCD ---
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 Jones Velasquez Primary Care Provider Dr. Jones Velasquez Referring Provider IVET Vazquez Attending Provider Dr. Diay Marvin Attending Provider Dr. Tejas Lew Emergency Provider Dr. Christal Patiño Admit Provider Dr. Christal Patiño Attending Provider Dr. Christal Patiño Other Provider Dr. Nahun Giles Attending Provider Dr. Bea Gregg Attending Provider Dr. Bea Gregg Other Provider Jones Velasquez MD Primary Care Provider Jones Velasquez MD Primary Care Provider Dr. 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, June Admitting Unavail able Renetta Christie PA-C Unavailable Older Astrid KOLB Unavailable Justine Castillo PA-C Unavailable OLDER EZRA-C, ASTRID Primary Care Provider OLDER MOBILE SALES CONSULTANT-C, ASTRID Referring Provider Sho Vazquez Attending Provider [phone] Fabiano Lee Attending Unavailable Ganta, Jones Referring Unavailable OLDER, ASTRID Primary Care Unavailable Sho Vazquez Attending Unavail able OLDER, ASTRID Primary Care Unavailable OLDER, ASTRID Referring Unavailable GANTA, JONES Primary Care Unavailable GANTA, JONES Primary Care Unavailable OLDER, ASTRID Attending Unavailable GANTA, JONES Primary Care Unavailable GANTA, JONES Primary Care Unavailable OLDER, ASTRID Attending Unavailable GANTA, JONES Primary Care Unavailable GANTA, JONES Primary Care Unavailable GANTA, JONES Primary Care Unavailable OLDER, ASTRID Attending Unavailable GANTA, JONES Primary Care Unavailable OLDER, ASTRID Referring Unavailable GANTA, JONES Primary Care Unavailable OLDER, ASTRID Referring Unavailable GANTA, JONES Primary Care Unavailable GANTA, JONES Primary Care Unavailable GANTA, JONES Primary Care Unavailable CANDIJUSTIN Attending Unavailable GANTA, JONES Primary Care Unavailable OLDER, ASTRID Referring Unavailable GANTA, JONES Primary Care Unavailable GANTA, JONES Primary Care Unavailable OLDER, ASTRID Referring Unavailable GANTA, JONES Primary Care Unavailable OLDER, ASTRID Attending Unavailable GANTA, JONES Primary Care Unavailable OLDER, ASTRID Attending Unavailable SELF Referring Unavailable GANTA, JONES Primary Care Unavailable OLDER, ASTRID Referring Unavailable GANTA, JONES Primary Care Unavailable CANDIJUSTIN Attending Unavailable OLDER, ASTRID Referring Unavailable GANTA, JONES Primary Care Unavailable GANTA, JONES Attending Unavailable GANTA, JONES Primary Care Unavailable GANTA, JONES Primary Care Unavailable GANTA, JONES Primary Care Unavailable GANTA, JONES Primary Care Unavailable Allergies Allergy Classification Reported Allergen(s) Allergy Type Date of Onset Reaction(s) Facility (8 sources) Penicillins; Translations: [PENICILLINS] Propensity to adverse reactions 9 Rash [facility] (20 sources) Propoxyphene; Translations: [PROPOXYPHENE HCL] Drug Allergy 9 GI Upset [facility] (20 sources) Penicillins Propensity to adverse reactions 9 [facility] (4 sources) Penicillins Allergy to substance 3 [facility] (4 sources) Propoxyphene Drug Allergy 3 Nausea/Vom/Diar marilyn [facility] (6 sources) Penicillins Propensity to adverse reactions 9 Rash [facility] (1 source) Penicillins Drug allergy (disorder) 5 [facility] (1 source) Propoxyphene Drug Allergy 5 [facility] Medications Current Medications Medication Drug Class(es) Dates Sig (Normalized) Sig (Original) apixaban 5 mg oral tablet (20 sources) Factor Xa Inhibitor Start: 09-06-2024 take 1 tablet by mouth twice daily Apixaban (Eliquis) 5 mg tablet Active 5 mg PO TWICE A DAY 180 3 September 06, 2024 8:56am Start: 04-03-2020 End: 09-06-2024 Eliquis 5 mg oral tablet Dos e : 5 mg = 1 tab(s), Oral, BID, 0 Refill(s), 82.5 Start Date: 01/21/24 Status: Ordered Comment on above: Take by mouth twice daily. benzonatate 100 mg oral capsule (5 sources) Non-narcotic Antitussive Start: 08-12-2022 Benzonatate Active 100 MG PO 2 to 3 times per day August 12, 2022 12:00am Start: 08-04-2022 take 1 capsule by mo uth three times daily as needed for cough benzonatate (TESSALON PERLES) 100 mg capsule Indications: Bronchitis Take 1 capsule by mouth three times daily as needed for cough. 60 capsule 2 08/04/2022 Active Comment on above: Take 1 capsule by mo uth three times daily as needed for cough. Blood-Glucose Meter monitoring kit (1 source) Start: 5 End: Blood-Glucose Meter monitoring kit Glucose Meter of Choice - Kit - Dx: Type 2 DM - Controlled E11.9 1 Each 04/28/2024 04/29/2024 Active cefdinir 300 mg oral capsule (2 sources) Cephalosporin Antibacterial Start: 5 End: take 1 capsule by mouth twice daily cefdinir (OMNICEF) 300 mg capsule Take 1 capsule by mouth two times a day for 7 days. 14 capsule 04/28/2024 05/05/2024 Active Start: 01-22-2024 End: 01-27-2024 cefdinir 300 mg oral capsule Dose : 300 mg = 1 cap(s), Oral, q12h, X 5 day(s), # 10 cap(s), 0 Refill(s), 01/27/24 8:00:00 AM EST, Pharmacy: [id number], 157.5, cm, 01/21/24 1:17:00 EST, Height, 82.5, kg, 01/21/24 1:17:00 EST, Dosing Weight Start Date: 01/22/24 Stop Date: 01/27/24 Status: Ordered cephalexin 500 mg oral capsule (1 source) Cephalosporin Antibacterial Start: 09-22-2022 End: 2022 take 1 capsule by mouth twice daily cephALEXin (KEFLEX) 500 mg capsule Indications: Urinary tract infection without hematuria, site unspecified Take 1 capsule by mouth twice daily for 7 days. 14 capsule 0 09/22/2022 2022 Active Comment on above: Take 1 capsule by mo [facility] twice daily for 7 days. clopidogrel 75 mg oral tablet (20 sources) [id number] Platelet Inhibitor Start: 08-28-2022 End: 06-09-2024 take 1 tablet by mouth once daily Clopidogrel 75 mg Tablet Active 75 mg PO DAILY August 28, 2022 12:00am Start: 03-07-2020 End: 04-03-2020 take 1 tablet by mouth once daily Clopidogrel (Plavix) 75 mg tablet Discontinued 75 mg PO DAILY 04 02March 07, 2020 1:00am April 03, 2020 10:32am Start: 02-08-2020 End: 02-29-2020 take 1 tablet by mouth once daily Clopidogrel 75 MG tablet Discontinued 75 mg PO DAILY February 08, 2020 1:00am February 28, 2020 1:00am February 29, 2020 1:02am Comment on above: Take 75 mg by mouth once daily. Take 1 tablet by brody once daily. Take 75 mg by mouth once daily. codeine phosphate 2 mg/ml / guaiFENesin 20 mg/ml oral solution (4 sources) Opioid Agonist Start: 08-05-2022 End: 08-12-2022 take 10 mL by mouth twice daily as needed codeine-guaiFENesin (ROBITUSSIN AC) 10-100 mg/5 mL syrup Indications: Bronchitis Take 10 mL by mouth twice daily as needed for up to 7 days. 237 mL 0 08/05/2022 08/12/2022 Active Start: 08-04-2022 End: 08-11-2022 take 5 mL by mouth three times daily as needed codeine-guaiFENesin (ROBITUSSIN AC) 10-100 mg/5 mL syrup Indications: Bronchitis Take 5 mL by mouth three times daily as needed for up to 7 days. 118 mL 0 08/04/2022 08/11/2022 Active Start: 08-04-2022 End: 08-04-2022 take 10 mL by mouth twice daily as needed codeine-guaiFENesin 8-200 mg/5 mL liqd Indications: Bronchitis Take 10 mL by mouth twice daily as needed for up to 7 days. 200 mL 0 08/04/2022 08/04/2022 Discontinued Comment on above: Take 10 mL by mouth twice daily as needed for up to 7 days. Take 5 mL by mouth t hree times daily as needed for up to 7 days. empagliflozin 25 mg oral tablet (20 sources) Sodium-Glucose Cotransporter 2 Inhibitor Start: 10-15-19 End: 10-07-19 24 take 1 tablet by mouth once daily Empagliflozin (Jardiance) 25 mg tablet Active 25 mg PO DAILY August 09, 2023 12:00am Start: 09-18-2022 End: 10-14-2022 take 1 tablet by mouth once daily, then take 1 tablet by mouth once daily in the morning empagliflozin (JARDIANCE) 10 mg tablet Indications: Type 2 diabetes mellitus with hyperglycemia, without long-term current use of insulin (HCC) Take 1 tablet by mouth once daily. Take 1 tablet once daily in the morning 30 tablet 0 09/18/2022 10/14/2022 Discontinued Comment on above: Take 1 tablet by brody once daily. Take 1 tablet once daily in the morning fluticasone propionate 0.05 mg/actuat metered dose nasal spray (20 sources) Corticosteroid Start: 12-01-19 15 take 2 spray(s) nasal route once daily fluticasone (FLONASE) 50 mcg/actuation nasal spray Use 2 Sprays in each nostril once daily. 3 Bottle 3 11/30/2014 Active Comment on above: Use 2 Sprays in each nostril once daily. levothyroxine sodium 0.05 mg oral tablet (20 sources) l-Thyroxine Start: 09-07-19 take 1 tablet by mouth once daily Levothyroxine 50 mcg tablet Active 50 ug PO daily September 06, 2024 12:00am disorder of thyroid gland Start: 01-21-2024 levothyroxine 50 mcg (0.05 mg) oral tablet Dose : 50 mcg = 1 tab(s), Oral, qDay, # 30 tab(s), 0 Refill(s) Start Date: 01/21/24 Status: Ordered Start: 08-12-2022 End: 09-06-2024 take 1 capsule by mouth once daily Levothyroxine 50 mcg capsule Discontinued 50 ug PO DAILY August 12, 2022 12:00am September 06, 2024 8:14am thyroid Start: 02-09-2022 End: 08-16-2024 take 1 tablet by mouth once daily for thyroid dysfunction levothyroxine (LEVOXYL) 50 mcg tablet Take 1 tablet by mouth once daily. Take on empty stomach. For Thyroid 90 tablet 1 08/17/2024 Active Start: 08-15-2021 take 1 tablet by brody th once daily for thyroid dysfunction levothyroxine (LEVOXYL) 50 mcg tablet Take 1 tablet by mouth once daily. Take on empty stomach. For Thyroid 30 tablet 5 08/15/2021 Active Comment on above: Take 1 tablet by brody th once daily. Take on empty stomach. For Thyroid Lopressor 25mg--USE metoprolol tartrate 25 mg oral tablet (1 source) Start: 01-21-2024 take 1 tablet by mouth twice daily Lopressor 25mg--USE metoprolol tartrate 25 mg oral tablet TAKE 1 TABLET BY MOUTH TWICE DAILY Start Date: 01/21/24 Status: Ordered losartan potassium 25 mg oral tablet (20 sources) Angiotensin 2 Receptor Oneal Start: 09-06-2024 take 1 tablet by mouth once daily Losartan 25 mg tablet Active 25 mg PO DAILY 90 3 September 06, 2024 8:56am high bp Start: 09-06-2024 End: 09-06-2024 Losartan 50 mg tablet Discon tinued 25 mg PO DAILY September 06, 2024 8:55am September 06, 2024 8:56am high bp Start: 03-15-2019 End: 09-06-2024 take 1 tablet by mouth once daily Losartan 50 MG tablet Discontinued 50 mg PO DAILY March 15, 2019 1:00am September 06, 2024 8:55am high bp Comment on above: Take 1 tablet by brody th once daily. mecobalamin (1 source) Start: 02-13-20 inject 1000 ug by intramuscular injection every month Mecobalamin (Vitamin B12) Active 1000 MCG IM MONTHLY February 13, 2020 1:00am 24 hr metFORMIN hydrochloride 500 mg extended release oral tablet (20 sources) Biguanide Start: 09-07-19 Metformin 500 mg tablet extended release 24 hr Active 1000 mg PO TWICE A DAY September 06, 2024 8:15am dm Start: 01-21-2024 take 2 tablets by mo uth twice daily at mealtime MetFORMIN (Eqv-Glucophage XR) 500 mg oral tablet, EXTENDED RELEASE TAKE 2 TABLETS BY MOUTH TWICE DAILY WITH MEALS Start Date: 01/21/24 Status: Ordered Start: 06-04-2022 End: 10-27-2023 take 2 tablets by mouth twice daily at mealtime metFORMIN ER (GLUCOPHAGE XR) 500 mg 24 hr tablet Take 2 tablets by mouth two times a day with meals. 360 tablet 3 10/27/2023 Active Start: 11-21-2021 End: 06-04-2022 take 1 tablet by mouth every twenty-four hours in the morning, then take 2 tablets by mouth in the evening metFORMIN ER (GLUCOPHAGE XR) 500 mg 24 hr tablet Take 1 tab in the morning and 2 tabs in the evening by mouth 270 tablet 3 11/21/2021 06/04/2022 Discontinued (Discontinued by Patient) Start: 11-13-2020 take 1 tablet by brody th every twenty-four hours in the morning, then take 2 tablets by mouth in the evening metFORMIN ER (GLUCOPHAGE XR) 500 mg 24 hr tablet Take 1 tab in the morning and 2 tabs in the evening by mouth 270 tablet 3 11/13/2020 Active Start: 02-06-2020 Metformin Acti ve 0 .ROUTE .COMPLEX February 06, 2020 1:00am 500 mg tablet in Am and 1000 mg in pm Start: 02-06-2020 take 1000 mg by mout h at dinner Metformin Active 1000 MG PO WITH DINNER February 06, 2020 1:00am Start: 08-16-2018 End: 09-06-2024 Metformin 500 MG tablet Disc ontinued 0 .ROUTE .COMPLEX February 06, 2020 1:00am September 06, 2024 8:17am dm 500 mg tablet in Am and 1000 mg in pm Comment on above: Take 1 tab in the mo rning and 2 tabs in the evening by mouth Take 2 tablets by mo uth twice daily with meals. Take 1 tab in the morning and 2 tabs in the evening by mouth Take 2 tablets by mo uth twice daily with meals. take 2 tablets by mo uth twice daily with meals metoprolol tartrate 25 mg oral tablet (20 sources) beta-Adrenergic Oneal Start: 020 End: take 1 tablet by mouth twice daily Metoprolol Tartrate 25 mg tablet Active 25 mg PO TWICE A DAY 180 3 September 06, 2024 8:56am Comment on above: Take 25 mg by mouth twice daily. sulfamethoxazole 800 mg / trimethoprim 160 mg oral tablet (1 source) Dihydrofolate Reductase Inhibitor Antibacterial, Sulfonamide Antimicrobial Start: 025 End: take 1 tablet by mouth twice daily sulfamethoxazole-trim ethoprim (BACTRIM DS) 800-160 mg per tablet Take 1 tablet by mouth two times a day for 5 days. 10 tablet 07/25/2024 07/30/2024 Active terconazole 8 mg/ml vaginal cream (20 sources) Azole Antifungal Start: 023 End: terconazole vaginal cream (TERAZOL) 0.8 % vaginal cream Indications: Acute vaginitis Use 1 Applicator vaginally daily at bedtime. 20 g 12/09/2022 Active Comment on above: Use 1 Applicator vag inally daily at bedtime. vitamin b12 1 mg/ml injectable solution (20 sources) Vitamin B12 Start: 024 End: cyanocobalamin 1,000 mcg injection Start: 02-21-2024 End: 01-21-2025 1,000 mcg, INTRAMUSCULAR, EV RAMIRO 4 WEEKS, 12 doses, First dose on Wed02/21/24 at 0000, Last dose on Wed12/25/24 at 0000 Start: 03-15-2023 End: 02-13-2024 1,000 mcg, INTRAMUSCULAR, EV RAMIRO 4 WEEKS, 12 doses, First dose on Wed03/15/23 at 0000, Last dose on Wed01/17/24 at 0000 Start: 03-15-2023 End: 02-13-2024 cyanocobalamin 1,000 mcg inj ection Start: 04-06-2022 End: 03-07-2023 cyanocobalamin 1,000 mcg inj ection Start: 04-15-2021 End: 03-17-2022 cyanocobalamin 1,000 mcg inj ection Start: 04-15-2021 End: 10-14-2022 inject 1 mL by intramuscular injection every month cyanocobalamin 1,000 mcg/mL Indications: Vitamin B 12 deficiency Inject 1 mL intramuscularly once every month. 1 mL 12 10/14/2022 Active Comment on above: Inject 1 mL intramus cularly once every month. Completed/Discontinued Medications Medication Drug Class(es) Dates Sig (Normalized) Sig (Original) aspirin 81 mg chewable tablet (20 sources) Platelet Aggregation Inhibitor, Nonsteroidal Anti-inflammatory Drug Start: 02-14-2020 End: 09-18-2022 take 1 tablet by mouth once daily aspirin, enteric coated (ASPIRIN, ENTERIC COATED) 81 mg EC tablet Take 1 tablet by mouth once daily. 90 tablet 3 02/14/2020 09/18/2022 Discontinued Start: 02-08-2020 End: 08-28-2022 take 1 tablet by mouth once daily Aspirin 81 MG tablet,chewable Discontinued 81 mg PO DAILY@0800 August 26, 2022 9:46am August 28, 2022 12:21pm anti coagulant Comment on above: Take 1 tablet by brody th once daily. atorvastatin 80 mg oral tablet (20 sources) HMG-CoA Reductase Inhibitor Start: 02-08-20 End: 06-10-19 take 1 tablet by mouth at bedtime Atorvastatin 80 mg tablet Discontinued 80 mg PO AT BEDTIME 90 3 August 12, 2021 10:52am August 26, 2022 9:46am Comment on above: Take 1 tablet by brody th daily at bedtime. For cholesterol. cholecalciferol 0.025 mg oral capsule (20 sources) Vitamin D Start: 08-13-19 End: 08-09-19 take 1 capsule by mouth once daily as needed Cholecalciferol (Vitamin D3) 25 mcg (1,000 unit) capsule Discontinued 25 ug PO DAILY as needed for supplement August 12, 2022 10:39am August 09, 2023 10:53am Start: 02-19-2015 End: 09-18-2022 take 1 tablet by mouth once daily cholecalciferol (VITAMIN D3) 2,000 unit tablet Take 1 tablet by mouth once daily. 0 02/19/2015 09/18/2022 Discontinued Comment on above: Take 1 tablet by brody once daily. lidocaine 0.05 mg/mg medicated patch (8 sources) Antiarrhythmic, Amide Local Anesthetic Start: End: apply 1 dose topically once daily Lidocaine 5 % Adhesive Patch,Medicated Discontinued 1 NMA TOPICAL DAILY 0 August 28, 2022 12:00am August 09, 2023 10:[address] lidocaine patch to affected region. Please contact the information source for Protocol details. Start: 07-13-2022 End: 09-18-2022 apply 1 dose transdermal route every twenty-four hours lidocaine (LIDODERM) 5 % Indications: Acute right-sided low back pain with right-sided sciatica Apply 1 Patch as directed every [address] patch for 12 hours, remove for 12 hours prior to placing new patch. Location: right lower back. 14 Patch 07/13/2022 09/18/2022 Discontinued Comment on above: Apply 1 Patch as dir ected every [address] patch for 12 hours, remove for 12 hours prior to placing new patch. Location: right lower back. nystatin 100 unt/mg topical powder (3 sources) Polyene Antifungal Start: 08-28-2022 End: 09-06-2024 Nystatin (Nyamyc) 100,000 unit/gram Powder Discontinued 1 NMA TOPICAL THREE TIMES A DAY 30 14 0 August 28, 2022 12:00am September 06, 2024 8:16am May d/c once fungal infection resolved. Please contact the information source for Protocol details. Start: 08-28-2022 Nystatin (Nyam yc) 100,000 unit/gram Powder Active 1 APPLIC TOPICAL THREE TIMES A DAY 30 14 August 28, 2022 12:00am May d/c once fungal infection resolved. ondansetron 4 mg oral tablet (4 sources) Serotonin-3 Receptor Antagonist Start: 02-13-2020 End: 08-12-2021 take 1 tablet by mouth three times daily as needed for nausea and vomiting Ondansetron Hcl (Zofran) 4 mg tablet Discontinued 4 mg PO THREE TIMES A DAY as needed for nausea and vomiting 90 1 February 13, 2020 1:00am August 12, 2021 10:50am pravastatin sodium 80 mg oral tablet (4 sources) HMG-CoA Reductase Inhibitor Start: 08-16-2018 End: 02-08-2020 take 1 tablet by mouth at bedtime Pravastatin 80 MG tablet Discontinued 80 mg PO AT BEDTIME August 16, 2018 12:00am February 08, 2020 11:10am cholesterol semaglutide 3 mg oral tablet (11 sources) Start: 02-18-2022 take 1 tablet by mouth once daily before breakfast semaglutide (RYBELSUS) 3 mg tablet Indications: Diabetes mellitus type 2 with complications (HCC) Take 1 tablet by mouth daily before breakfast. 30 tablet 0 02/18/2022 Active Comment on above: Take 1 tablet by brody daily before breakfast. SITagliptin 100 mg oral tablet (20 sources) Dipeptidyl Peptidase 4 Inhibitor Start: 11-21-2021 End: 02-18-2022 take 1 tablet by mouth once daily SITagliptin (JANUVIA) 100 mg tablet Take 1 tablet by mouth once daily. 90 tablet 3 11/21/2021 02/18/2022 Discontinued Start: 08-16-2018 End: 08-12-2022 take 1 tablet by mouth once daily Sitagliptin Phosphate 50 MG tablet Discontinued 50 mg PO DAILY August 16, 2018 12:00am August 12, 2022 10:39am dm Comment on above: Take 1 tablet by brody once daily. tiZANidine 2 mg oral capsule (9 sources) Central alpha-2 Adrenergic Agonist Start: 3 End: take 1 capsule by mouth every eight hours as needed for muscle spasms Tizanidine 2 mg capsule Discontinued 2 mg PO Q8H as needed for Spasms August 12, 2022 12:00am September 06, 2024 8:16am Start: 07-13-2022 End: 09-18-2022 take 1 tablet by mouth every eight hours as needed tiZANidine (ZANAFLEX) 2 mg tablet Take 1 tablet by mouth every 8 hours as needed (muscle spasms). 30 tablet 07/13/2022 09/18/2022 Discontinued Comment on above: Take 1 tablet by brody th every 8 hours as needed (muscle spasms). Problems Active Problems Problem Classification Problem Date Documented Da te Episodic/Chronic Abdominal pain (5 sources) Tenderness of left upper quadrant of abdomen; Translations: [Left upper quadrant abdominal tenderness] Onset: 07-25-2024 Episodic Acute cerebrovascular disease (20 sources) Occipital cerebral infarction; Translations: [Cerebral infarction, unspecified] Onset: 02-06-2020 02-14-2020 Chronic Acute myocardial infarction (20 sources) Myocardial infarction; Translations: [Non-ST elevation (NSTEMI) myocardial infarction] Onset: 02-14-2020 02-14-2020 Chronic Blindness and vision defects (20 sources) Visual impairment; Translations: [Unspecified visual loss] Onset: 02-14-2020 02-14-2020 Chronic Blindness and vision defects (4 sources) Eye / vision finding; Translations: [Unspecified visual disturbance] 08-11-2021 Episodic Cardiac dysrhythmias (20 sources) Paroxysmal atrial fibrillation; Translations: [Paroxysmal atrial fibrillation] Onset: 05-15-2020 05-15-2020 Chronic Chronic obstructive pulmonary disease and bronchiectasis (1 source) Bronchitis; Translations: [Bronchitis, not specified as acute or chronic] Episodic Coronary atherosclerosis and other heart disease (12 sources) History of non-ST segment elevation myocardial infarction; Translations: [Old myocardial infarction] Onset: 02-06-2020 08-11-2021 Chronic Diabetes mellitus with complications (20 sources) Type 2 diabetes mellitus; Translations: [Uncontrolled type 2 diabetes with neuropathy] Onset: 02-19-2015 04-23-2015 Chronic Diseases of white blood cells (1 source) Leukocytosis; Translations: [Elevated white blood cell count, unspecified] Chronic Disorders of lipid metabolism (20 sources) Mixed hyperlipidemia; Translations: [Mixed hyperlipidemia] Onset: 09-25-2014 Resolved: 06-21-2015 03-04-2021 Chronic Essential hypertension (20 sources) Essential hypertension; Translations: [Essential (primary) hypertension] Onset: 09-25-2014 09-25-2014 Chronic Fluid and electrolyte disorders (4 sources) Lactic acidosis; Translations: [Lactic acidosis] 02-21-2020 Episodic Gastrointestinal hemorrhage (1 source) Hematochezia; Translations: [Melena] Episodic Genitourinary symptoms and ill-defined conditions (5 sources) Increased frequency of urination; Translations: [Frequency of micturition] Onset: 07-25-2024 Episodic Heart valve disorders (6 sources) Mitral valve annular calcification; Translations: [Mitral valve annular calcification] 04-01-2020 Chronic Comment on above: severe Inflammatory diseases of female pelvic organs (3 sources) Acute vaginitis; Translations: [Acute vaginitis] 10-14-2022 Episodic Malaise and fatigue (2 sources) Fatigue; Translations: [Other fatigue] Episodic Nausea and vomiting (2 sources) Nausea and vomiting; Translations: [Nausea with vomiting, unspecified] Onset: 01-21-2024 Episodic Nutritional deficiencies (1 source) Vitamin D deficiency; Translations: [Vitamin D deficiency, unspecified] Chronic Other aftercare (1 source) Long-term current use of oral hypoglycemic medication; Translations: [shelter (current) use of oral hypoglycemic drugs] 07-25-2024 Episodic Other aftercare (1 source) 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; Translations: [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] Onset: 07-25-2024 Episodic Other circulatory disease (3 sources) H/O: hypertension; Translations: [Personal history of other diseases of the circulatory system] 08-25-2022 Episodic Other circulatory disease (3 sources) History of cerebrovascular accident; Translations: [Personal history of transient ischemic attack (TIA), and cerebral infarction without residual deficits] 08-25-2022 Episodic Other circulatory disease (1 source) Personal history of other diseases of the circulatory system; Translations: [Personal history of other diseases of circulatory system] 08-28-2022 Episodic Other circulatory disease (1 source) Personal history of transient ischemic attack (TIA), and cerebral infarction without residual deficits; Translations: [Personal history of transient ischemic attack (TIA), and cerebral infarction without residual deficits] 08-28-2022 Episodic Other connective tissue disease (2 sources) Neurological deficit; Translations: [Other symptoms and signs involving the nervous system] 08-25-2022 Episodic Other connective tissue disease (2 sources) Other symptoms and signs involving the nervous system; Translations: [Other symptoms involving nervous and musculoskeletal systems] 08-25-2022 Episodic Other connective tissue disease (1 source) Other symptoms and signs involving the musculoskeletal system; Translations: [Other musculoskeletal symptoms referable to limbs] Episodic Other connective tissue disease (1 source) Pain in right lower limb; Translations: [Pain in right leg] 07-13-2022 Episodic Other fractures (1 source) Closed fracture of second lumbar vertebra; Translations: [Unspecified fracture of second lumbar vertebra, subsequent encounter for fracture with routine healing] 07-16-2022 Episodic Other hematologic conditions (3 sources) Raised cardiac enzyme or marker; Translations: [Other specified abnormalities of plasma proteins] 02-21-2020 Episodic Other hereditary and degenerative nervous system conditions (1 source) Essential tremor; Translations: [Essential tremor] 03-14-2024 Chronic Other nervous system disorders (3 sources) Expressive dysphasia; 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] 08-25-2022 Chronic Other nervous system disorders (3 sources) Receptive dysphasia; 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] 08-25-2022 Chronic Other nervous system disorders (2 sources) Aphasia; 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] 08-28-2022 Chronic Other nutritional; endocrine; and metabolic disorders (20 sources) Body mass index 30+ - obesity; Translations: [Body mass index (BMI) 37.0-37.9, adult] Onset: 09-25-2014 Resolved: 11-30-2014 11-30-2014 Chronic Other nutritional; endocrine; and metabolic disorders (1 source) Hypomagnesemia; Translations: [Hypomagnesemia] 02-02-2024 Chronic Other nutritional; endocrine; and metabolic disorders (1 source) Hypomagnesemia; Translations: [Hypomagnesemia] Onset: 02-09-2024 Chronic Other nutritional; endocrine; and metabolic disorders (3 sources) H/O: diabetes mellitus; Translations: [Personal history of other endocrine, nutritional and metabolic disease] 08-25-2022 Episodic Other nutritional; endocrine; and metabolic disorders (1 source) Personal history of other endocrine, nutritional and metabolic disease; Translations: [Personal history of other endocrine, metabolic, and immunity disorders] 08-28-2022 Episodic Other screening for suspected conditions (not mental disorders or infectious disease) (4 sources) Thyroid hormone tests abnormal; Translations: [Other specified abnormal findings of blood chemistry] Episodic Other upper respiratory disease (20 sources) Allergic rhinitis; Translations: [Other allergic rhinitis] Onset: 09-25-2014 09-25-2014 Chronic Residual codes; unclassified (2 sources) History of clinical finding in subject; Translations: [Personal history of other medical treatment] Episodic Spondylosis; intervertebral disc disorders; other back problems (4 sources) Acute back pain with sciatica; Translations: [Lumbago with sciatica, right side] Episodic Syncope (4 sources) Syncope; Translations: [Syncope and collapse] 02-21-2020 Episodic Thyroid disorders (17 sources) Hypothyroidism; Translations: [Hypothyroidism, unspecified] Onset: 02-08-2024 Chronic Transient cerebral ischemia (1 source) Transient cerebral ischemia; Translations: [Transient cerebral ischemic attack, unspecified] Onset: 01-21-2024 Chronic Unclassified (4 sources) Type 2 diabetes mellitus without complication; Translations: [Diabetes mellitus type 2, uncontrolled, without complications] Onset: 02-19-2015 02-19-2015 Urinary tract infections (12 sources) Acute cystitis; Translations: [Acute cystitis without hematuria] Onset: 01-21-2024 02-21-2020 Episodic Past or Other Problems Problem Classification Problem Date Documented Da te Episodic/Chronic Diabetes mellitus without complication (20 sources) Type 2 diabetes mellitus without complication; Translations: [Type 2 diabetes mellitus without complications] Onset: 09-25-2014 Resolved: 02-19-2015 Chronic Nutritional deficiencies (20 sources) Cobalamin deficiency; Translations: [Deficiency of other specified B group vitamins] Onset: 06-12-2020 Episodic Unclassified (4 sources) Acute diarrheal illness 02-21-2020 Results Test Name Value Interpretation Reference Range Facility Basic metabolic 2000 panelon 09-06-2024 Anion gap [Moles/Vol] 18 mmol/L High 10-20 [facility] Comment on above: Order Comment: Kamla clark Type: BLOOD SPECIMENOrdering Facility: [facility] Address: [address] [place] [address] Performed By: #### 2 4321-2 ####[facility] [id number] [place] [id number] [place] Calcium [Mass/Vol] 9.6 mg/dL Normal 8.5-10.2 [facility] Comment on above: Order Comment: Kamla clark Type: BLOOD SPECIMENOrdering Facility: [facility] Address: [address] [place] [address] Performed By: #### 2 4321-2 ####[facility] [id number] [place] [address] [place] Chloride [Moles/Vol] 103 mmol/L Normal 98-107 [facility] Comment on above: Order Comment: Speci men Type: BLOOD SPECIMENOrdering Facility: [facility] Address: [address] [place] [address] Performed By: #### 2 4321-2 ####[facility] [id number] [place] [address] [place] CO2 [Moles/Vol] 20 mmol/L Low 22-30 [facility] Comment on above: Order Comment: Speci men Type: BLOOD SPECIMENOrdering Facility: [facility] Address: [address] [place] [address] Performed By: #### 2 4321-2 ####[facility] [id number] [place] [address] [place] Creatinine [Mass/Vol] 0.60 mg/dL Normal 0.58-0.96 [facility] Comment on above: Order Comment: Speci men Type: BLOOD SPECIMENOrdering Facility: [facility] Address: [address] [place] [address] Performed By: #### 2 4321-2 ####[facility] [id number] [place] [address] [place] Creatinine and Glomerular filtration rate.predicted panel (S/P/Bld) 93 mL/min/1.73m??? Normal >=60 [facility] Comment on above: Order Comment: Speci men Type: BLOOD SPECIMENOrdering Facility: [facility] Address: [address] [place] [address] Result Comment: Shakira mated Glomerular Filtration Rate (eGFR) is calculated using the 2020 CKD-EPI creatinine equation. This equation utilizes serum creatinine, sex, and age as parameters. The creatinine assay has traceable calibration to isotope dilution-mass spectrometry. Refer to KDIGO guidelines for clinical interpretation. In patients with unstable renal function, e.g. those with acute kidney injury, the eGFR may not accurately reflect actual GFR. Performed By: #### 2 4321-2 ####[facility]ANNESAdel[facility] [id number] [place] [address] [place] Glucose [Mass/Vol] 147 mg/dL High 74-99 [facility] Comment on above: Order Comment: Kamla clark Type: BLOOD SPECIMENOrdering Facility: [facility] Address: [address] [place] [address] Result Comment: The Citizen Of [place] Diabetes Association (ADA) provides guidance for cutoff values for fasting glucose and random glucose. The ADA defines fasting as no caloric intake for at least 8 hours. Fasting plasma glucose results between 100 to 125 mg/dL indicate increased risk for diabetes (prediabetes). Fasting plasma glucose results greater than or equal to 126 mg/dL meet the criteria for diagnosis of diabetes. In the absence of unequivocal hyperglycemia, results should be confirmed by repeat testing. In a patient with classic symptoms of hyperglycemia or hyperglycemic crisis, random plasma glucose results greater than or equal to 200 mg/dL meet the criteria for diagnosis of diabetes. Reference: Standards of Medical Care in Diabetes 2016, Citizen Of [place] Diabetes Association. Diabetes Care. 2016.39(Suppl 1). Performed By: #### 2 4321-2 ####[facility] [id number] [place] [address] [place] Potassium [Moles/Vol] 4.1 mmol/L Normal 3.7-5.1 [facility] Comment on above: Order Comment: Kamla clark Type: BLOOD SPECIMENOrdering Facility: [facility] Address: [address] [place] [place] [id number] Performed By: #### 2 4321-2 ####[facility] [id number] [place] [address] [place] Sodium [Moles/Vol] 141 mmol/L Normal 136-144 [facility] Comment on above: Order Comment: Speci men Type: BLOOD SPECIMENOrdering Facility: [facility] Address: [address] [place], [place] [address] Performed By: #### 2 4321-2 ####[facility] [id number] [place] [address] [place] Urea nitrogen [Mass/Vol] 13 mg/dL Normal 7-21 [facility] Comment on above: Order Comment: Speci men Type: BLOOD SPECIMENOrdering Facility: [facility] Address: [address] [place] [address] Performed By: #### 2 4321-2 ####[facility] [id number] [place] [address] [place] CBC W Auto Differential pane l (Bld)on 09-06-2024 Basophils (Bld) [#/Vol] 0.07 10*3/uL Normal <0.11 [facility] Comment on above: Order Comment: Speci men Type: BLOOD SPECIMENOrdering Facility: [facility] Address: [address] [place] [address] Performed By: #### 5 7021-8 ####[facility] [id number] [place] [address] [place] Basophils/100 WBC (Bld) 0.7 % Normal [facility] Comment on above: Order Comment: Speci men Type: BLOOD SPECIMENOrdering Facility: [facility] Address: [address] [place] [address] Performed By: #### 5 7021-8 ####[facility] [id number] [place] [address] [facility] Differential cell count method Nom (Bld) Auto Normal [facility] Comment on above: Order Comment: Speci men Type: BLOOD SPECIMENOrdering Facility: [facility] Address: [address] [place] [address] Performed By: #### 5 7021-8 ####[facility] DIONEPE[facility] CREEKNCA [id number] [place] [address] [place] Eosinophils (Bld) [#/Vol] 0.09 10*3/uL Normal <0.46 [facility] Comment on above: Order Comment: Speci men Type: BLOOD SPECIMENOrdering Facility: [facility] Address: [address] [place] [address] Performed By: #### 5 7021-8 ####[facility] [id number] [place] [address] [place] Eosinophils/100 WBC (Bld) 0.9 % Normal [facility] Comment on above: Order Comment: Speci men Type: BLOOD SPECIMENOrdering Facility: [facility] Address: [address] [place] [address] Performed By: #### 5 7021-8 ####[facility] [id number] [place] [address] [place] Erythrocyte distribution width (RBC) [Ratio] 15.8 % High 11.5-15.0 [facility] Comment on above: Order Comment: Speci men Type: BLOOD SPECIMENOrdering Facility: [facility] Address: [address] [place] [address] Performed By: #### 5 7021-8 ####[facility] [id number] [place] [address] [place] Hematocrit (Bld) [Volume fraction] 39.0 % Normal 36.0-46.0 [facility] Comment on above: Order Comment: Speci men Type: BLOOD SPECIMENOrdering Facility: [facility] Address: [address] [place] [address] Performed By: #### 5 7021-8 ####[facility] [id number] [place] [address] [place] Hemoglobin (Bld) [Mass/Vol] 12.2 g/dL Normal 11.5-15.5 [facility] Comment on above: Order Comment: Speci men Type: BLOOD SPECIMENOrdering Facility: [facility] Address: [address] [place] [address] Performed By: #### 5 7021-8 ####[facility] [id number] [place] [address] [place] Immature granulocytes (Bld) [#/Vol] 0.03 10*3/uL Normal <0.10 [facility] Comment on above: Order Comment: Speci men Type: BLOOD SPECIMENOrdering Facility: [facility] Address: [address] [place] [address] Performed By: #### 5 7021-8 ####[facility] [id number] [place] [address] [place] Immature granulocytes/100 WBC (Bld) 0.3 % Normal [facility] Comment on above: Order Comment: Speci men Type: BLOOD SPECIMENOrdering Facility: [facility] Address: [address] [place] [address] Performed By: #### 5 7021-8 ####[facility] [id number] [place] [address] [place] Lymphocytes (Bld) [#/Vol] 1.86 10*3/uL Normal 1.00-4.00 [facility] Comment on above: Order Comment: Speci men Type: BLOOD SPECIMENOrdering Facility: [facility] Address: [address] [place] [address] Performed By: #### 5 7021-8 ####[facility] [id number] [place] [address] [place] Lymphocytes/100 WBC (Bld) 19.5 % Normal [facility] Comment on above: Order Comment: Speci men Type: BLOOD SPECIMENOrdering Facility: [facility] Address: [address] [place] [address] Performed By: #### 5 7021-8 ####[facility] [id number] [place] [address] [place] MCH (RBC) [Entitic mass] 26.6 pg Normal 26.0-34.0 [facility] Comment on above: Order Comment: Speci men Type: BLOOD SPECIMENOrdering Facility: [facility] Address: [address] [place] [address] Performed By: #### 5 7021-8 ####[facility] [id number] [place] [address] [place] MCHC (RBC) [Mass/Vol] 31.3 g/dL Normal 30.5-36.0 [facility] Comment on above: Order Comment: Speci men Type: BLOOD SPECIMENOrdering Facility: [facility] Address: [address] [place] [address] Performed By: #### 5 7021-8 ####[facility] [id number] [place] [address] [place] MCV (RBC) [Entitic vol] 85.2 fL Normal 80.0-100.0 [facility] Comment on above: Order Comment: Speci men Type: BLOOD SPECIMENOrdering Facility: [facility] Address: [address] [place] [address] Performed By: #### 5 7021-8 ####[facility] [id number] [place] [address] [place] Monocytes (Bld) [#/Vol] 0.66 10*3/uL Normal <0.87 [facility] Comment on above: Order Comment: Speci men Type: BLOOD SPECIMENOrdering Facility: [facility] Address: [address] [place] [address] Performed By: #### 5 7021-8 ####[facility] DIONEPILARA [id number] [place] [address] [place] Monocytes/100 WBC (Bld) 6.9 % Normal [facility] Comment on above: Order Comment: Speci men Type: BLOOD SPECIMENOrdering Facility: [facility] Address: [address] [place] [address] Performed By: #### 5 7021-8 ####[facility]CS[facility]TYA [id number] [place] [address] [place] Neutrophils (Bld) [#/Vol] 6.81 10*3/uL Normal 1.45-7.50 [facility] Comment on above: Order Comment: Speci men Type: BLOOD SPECIMENOrdering Facility: [facility] Address: [address] [place] [address] Performed By: #### 5 7021-8 ####[facility] [id number] [place] [address] [place] Neutrophils/100 WBC (Bld) 71.7 % Normal [facility] Comment on above: Order Comment: Speci men Type: BLOOD SPECIMENOrdering Facility: [facility] Address: [address] [place] [address] Performed By: #### 5 7021-8 ####[facility] [id number] [place] [address] [place] Nucleated RBC (Bld) [#/Vol] 10*3/uL Normal <0.01 [facility] Comment on above: Order Comment: Speci men Type: BLOOD SPECIMENOrdering Facility: [facility] Address: [address] [place] [address] Performed By: #### 5 7021-8 ####[facility] [id number] [place] [address] [place] Nucleated RBC/100 WBC (Bld) [Ratio] 0.0 /100 WBC Normal [facility] Comment on above: Order Comment: Speci men Type: BLOOD SPECIMENOrdering Facility: [facility] Address: [address] [place] [address] Performed By: #### 5 7021-8 ####[facility] DIONEPEACH CREEKALFRED [id number] [place] [address] [place] Platelet mean volume (Bld) [Entitic vol] 9.4 fL Normal 9.0-12.7 [facility] Comment on above: Order Comment: Speci men Type: BLOOD SPECIMENOrdering Facility: [facility] Address: [address] [place] [address] Performed By: #### 5 7021-8 ####[facility] [id number] [place] [address] [place] Platelets (Bld) [#/Vol] 460 10*3/uL High 150-400 [facility] Comment on above: Order Comment: Speci men Type: BLOOD SPECIMENOrdering Facility: [facility] Address: [address] [place] [address] Performed By: #### 5 7021-8 ####[facility] DIONEPE[facility] CREEKYOHANNESFERNIE [id number] [place] [address] [place] RBC (Bld) [#/Vol] 4.58 10*6/uL Normal 3.90-5.20 [facility] Comment on above: Order Comment: Speci men Type: BLOOD SPECIMENOrdering Facility: [facility] Address: [address] [place] [address] Performed By: #### 5 7021-8 ####[facility] [id number] [place] [address] [place] WBC (Bld) [#/Vol] 9.52 10*3/uL Normal 3.70-11.00 [facility] Comment on above: Order Comment: Speci men Type: BLOOD SPECIMENOrdering Facility: [facility] Address: [address] [place] [address] Performed By: #### 5 7021-8 ####[facility] [id number] [place] [address] [place] Cardiology Visit Reporton Cardiology Visit Report [facility] [address] [place] [id number] OFFICE VISIT Date of Service: 09/06/24 MR#: [id number] Acct: [id number] Name: BRITNEY CANADA Rep #: [id number] : 1945 Provider: IVET Quezada Age/Sex: 78/F Location: [facility] Status: Signed HPI HPI History of Present Illness Details: Britney Canada is a 78-year-old female that presents here today for a cardiovascular follow up. She does have a history of paroxysmal atrial flutter, ventricular tachycardia, history of right occipital lobe infarct. Patient was admitted on February 06, 2020 to [facility] for an acute right occipital lobe infarct. She was also noted to have an elevated troponin. She underwent a cardiac catheterization in March 2020 demonstrating 60% first ostial diagonal lesion, preserved ejection fraction and no significant disease noted in the right coronary artery, LAD, and left circumflex artery. This was after a 30-day event monitor had demonstrated evidence of nonsustained ventricular tachycardia. Ejection fraction by echocardiogram was also preserved at 60% with moderate to severe mitral calcification. Medical therapy was recommended and she was also put on anticoagulation for her paroxysmal atrial flutter. She does not have any chest discomfort/heaviness/ tightness. She does not have any worsening symptoms of shortness of breath. She does not have any orthopnea. She denies PND. She does not have any symptoms of congestive heart failure. She does not have any palpitations that she is aware of. She does not have any lightheadedness or dizziness. She does not have any near-syncope or syncope. She does not have any lower extremity edema. She does not have any symptoms of claudication. She is now ambulating with a cane, last year she had a walker. She has lost weight since she was here last. Intake Vital Signs 03/14/24 14:55 09/06/24 08:08 Height 5 ft 2 in 5 ft 2 in Weight: 184 lb 178 lb BMI 33.6 32.5 BP 128/72 H 93/53 L Blood Pressure Location Rt brachial Rt brachial Position Sitting Sitting Respiration 16 16 Pulse 63 60 Pulse Source Monitor NIBP Temp 97.8 F Pulse Oximetry (%) 96 Oxygen Delivery Method room air Intake Visit Reasons: 1 Y FU Naphthalene Operator Required: No Is patient in pain?: No Allergies Penicillins Allergy (Verified 09/06/24 08:13) Rash propoxyphene (From Darvon) Adverse Reaction (Verified 09/06/24 08:13) Nausea/Vom/Diarrhea Medications ???Medication ???Instructions ???Recorded ???Confirmed ???Type atorvastatin 80 mg tablet 80 mg PO QHS lower cholesterol 09/06/24 History clopidogrel 75 mg tablet 75 mg PO DAILY 30 days #30 tabs 09/06/24 Rx empagliflozin 25 mg tablet 25 mg PO DAILY 08/09/23 09/06/24 H istory (Jardiance) apixaban 5 mg tablet (Eliquis) 5 mg PO BID #180 TABLETS 09/06/24 09/06/24 Rx levothyroxine 50 mcg tablet 50 mcg PO QDAY disorder of thyroid 09/06/24 09/06/24 History gland losartan 25 mg tablet 25 mg PO DAILY high bp #90 tabs 09/06/24 Rx metformin 500 mg tablet,extended 1,000 mg PO BID dm 09/06/24 History release 24 hr metoprolol tartrate 25 mg tablet 25 mg PO BID #180 tabs 09/06/24 Rx Ejection fraction %: 65 Have you fallen in the past year?: No PFSH Medical History History of hypertension History of diabetes mellitus History of stroke Receptive aphasia Expressive aphasia Hypothyroidism Nonobstructive atherosclerosis of coronary artery Nonsustained paroxysmal ventricular tachycardia Paroxysmal atrial flutter Mitral valve annular calcification History of non-ST elevation myocardial infarction (NSTEMI) (02/06/20) Essential (primary) hypertension CVA (cerebral vascular accident) Visual changes Hyperlipidemia Type 2 diabetes mellitus Surgical History History of cataract extraction History of left heart catheterization (04/01/20) History of cholecystectomy History of hernia repair Family History Father Myocardial infarction Brother Myocardial infarction Mother CVA (cerebral vascular accident) Heart disease Grandmother Myocardial infarction Uncle Myocardial infarction Social History Smoking Status: Never smoker Electronic Cigarette Use: not used second hand exposure: Yes alcohol intake: current alcohol intake frequency: holidays/special occasions only Alcohol type: wine substance use type: does not use ROS Const Const: Negative for fatigue or weakness Eyes Eyes: Negative for change in vision ENT ENT: Negative for dizziness or balance prob (more content not included)... Normal [facility] HbA1c (Bld)on 09-06-2024 Average glucose Estimated from glycated hemoglobin (Bld) [Mass/Vol] 154 mg/dL Normal [facility] Comment on above: Order Comment: Kamla clark Type: BLOOD SPECIMENOrdering Facility: [facility] Address: [address] [place] [address] Result Comment: eAG: (Estimated average glucose) is a calculated value from HgbA1c and is billing representative of the average blood glucose level in the last 2-3 month period. Performed By: #### 5 5454-3 ####[facility] LABCLIA [id number] [place] [address] [place] HbA1c (Bld) [Mass fraction] 7.0 % High 4.3-5.6 [facility] Comment on above: Order Comment: Kamla clark Type: BLOOD SPECIMENOrdering Facility: [facility] Address: [address] [place] [address] Result Comment: [place] Diabetes Association guidelines indicate that patients with HgbA1c in the range 5.7-6.4% are at increased risk for development of diabetes, and intervention by lifestyle modification may be beneficial. HgbA1c greater or equal to 6.5% is considered diagnostic of diabetes. Performed By: #### 5 5454-3 ####[facility] LABCLIA [id number] [facility] [id number] [address] [facility] Lipid 1996 panelon 5 Cholesterol [Mass/Vol] 123 mg/dL Normal <200 [facility] Comment on above: Order Comment: Speci men Type: BLOOD SPECIMENOrdering Facility: [facility] Address: [address] [place] [address] Result Comment: <200 mg/dL, Desirable 200-239 mg/dL, Borderline high >239 mg/dL, High Performed By: #### 3 016-3 ####[facility] LABCLIA [id number] [facility] ERK [address], [facility]#### 29788-0 ####[facility] LABCLIA [id number] [facility] [address] [place] [address] [facility] [id number] [address] Cholesterol in HDL [Mass/Vol] 33 mg/dL Low >39 [facility] Comment on above: Order Comment: Speci men Type: BLOOD SPECIMENOrdering Facility: [facility] Address: [address] [place] [address] Result Comment: 40-5 9 mg/dL, Acceptable >59 mg/dL, High: Negative risk factor for coronary heart disease <40 mg/dL, Low: Positive risk factor for coronary heart disease Performed By: #### 3 016-3 ####[facility] LABCLIA [id number] [facility] ERK [id number], [place] [address] [facility] [place]#### 55206-3 ####[facility] LABCLIA [id number] [facility] ERK [id number] [id number] [address] Cholesterol in LDL [Mass/Vol] 65 mg/dL Normal <100 [facility] Comment on above: Order Comment: Speci men Type: BLOOD SPECIMENOrdering Facility: [facility] Address: [address] [place] [address] Result Comment: <100 mg/dL, Optimal 100-129 mg/dL, Near optimal/above optimal 130-159 mg/dL, Borderline high 160-189 mg/dL, High >189 mg/dL, Very high Secondary prevention optimal LDL Cholesterol levels are recommended to be <70 mg/dL LDL cholesterol is calculated using the Anna-NIH equation. Performed By: #### 3 016-3 ####[facility] LABCLIA [id number] [address]#### [address]-5 ####[facility] LABCLIA [id number] [address] [id number] [address] Cholesterol in LDL/Cholesterol in HDL [Mass ratio] 1.97 {ratio} Normal <2.54 [facility] Comment on above: Order Comment: Speci men Type: BLOOD SPECIMENOrdering Facility: [facility] Address: [address], [place] [address] Result Comment: Heather rg: 1. National Cholesterol Education Program ATP III Guideline At-A-Glance Quick Desk Reference: National Heart, Lung, and Blood [place]. National Institutes of Health. 2001: NIH Publication No. 01-3305. 2. An International Atherosclerosis Society position paper: global recommendations for the management of dyslipidemia: executive summary, Atherosclerosis. 2014: 232(2):410-413. Performed By: #### 3 016-3 ####[facility] LABCLIA [id number] [address]#### [address]-2 ####[facility] LABCLIA [id number] [facility] [address], [address] [id number] [address] Cholesterol in VLDL [Mass/Vol] 21 mg/dL Normal <30 [facility] Comment on above: Order Comment: Speci men Type: BLOOD SPECIMENOrdering Facility: [facility] Address: [address] [place] [address] Performed By: #### 3 016-3 ####[facility] LABCLIA [id number] [address]#### 46456-2 ####[facility] LABCLIA [id number] [facility] [address] [id number] [address] Cholesterol non HDL [Mass/Vol] 90 mg/dL Normal <130 [facility] Comment on above: Order Comment: Speci men Type: BLOOD SPECIMENOrdering Facility: [facility] Address: [address] [place], [place] [address] [address] Result Comment: <130 mg/dL, Optimal 130-159 mg/dL, Near optimal/above optimal 160-189 mg/dL, Borderline high 190-219 mg/dL, High >219 mg/dL, Very high Secondary prevention optimal non HDL Cholesterol levels are recommended to be <100 mg/dL Performed By: #### 3 016-3 ####[facility] LABCLIA [id number] [facility] [address] OF [place]#### [address]-5 ####[facility] LABCLIA [id number] [facility] [address], [address] STATES OF [facility] [id number] [address] STATES OF [place] Cholesterol.total/Leticia sterol in HDL [Mass ratio] 3.73 {ratio} Normal <5.10 [facility] Comment on above: Order Comment: Speci men Type: BLOOD SPECIMENOrdering Facility: [facility] Address: [address] [place] [address] Performed By: #### 3 016-3 ####[facility] LABCLIA [id number] [address] STATES OF [place]#### [address]-5 ####[facility] LABCLIA [id number] [address] OF [facility] [id number] [place] [address] STATES OF [place] FASTING TIME 12 hrs Normal [facility] Comment on above: Order Comment: Speci men Type: BLOOD SPECIMENOrdering Facility: [facility] Address: [address] [place] [address] [place] [address] Performed By: #### 3 016-3 ####[facility] LABCLIA [id number] [address] STATES OF [place]#### [address]-0 ####[facility] LABCLIA [id number] [address] OF [facility] [id number] [place] [address] OF [place] Triglyceride [Mass/Vol] 139 mg/dL Normal <150 [facility] Comment on above: Order Comment: Speci men Type: BLOOD SPECIMENOrdering Facility: [facility] Address: [address] [place], [place] [address] [address] Result Comment: <150 mg/dL, Normal 150-199 mg/dL, Borderline high 200-499 mg/dL, High >499 mg/dL, Very high Performed By: #### 3 016-3 ####[facility] LABIA [id number] [address]#### 99193-5 ####[facility] LABIA [id number] [address] [id number] [place] [address] [place] TSH SerPl-aCncon 09-06-2024 TSH Qn 1.720 m[IU]/L Normal 0.270-4.200 [facility] Comment on above: Order Comment: Speci men Type: BLOOD SPECIMENOrdering Facility: [facility] Address: [address] [place] [address] Performed By: #### 3 016-3 ####[facility] [id number] [address] OF [place]#### 81731-0 ####[facility] [id number] [address] [id number] [address] [facility]JACKSON [facility] (FAMPWS) BRITNEY CANADA ([id number]) 1945 F Date Time Provider Department 08/14/24 11:45 AM MS NURSE FAMPWS During your visit today, we recorded the following information about you: AGUEDA SABILLON 08/14/2024 11:43 AM Signed Patient presents for B-12 injection. Denies any problems at this time. Patient instructed on any SE of medication, verbalized understanding and agreed to proceed with treatment. Tolerated injection well. Agueda Sabillon LPN Allergies As of Date: 08/14/2024 Noted Allergy Reaction DARVON (PROPOXYPHENE HCL) 10/11/2008 8 - GI Upset PENICILLINS 10/11/2008 2 - Rash Date Reviewed: 07/25/2024 Reviewed by: Stacey Cantor MA - Fully Assessed Reason for Visit: B-12 Injection [247] Primary Visit Diagnosis:Vitamin B 12 deficiency [E53.8] Prescriptions as of 08/14/2024 - atorvastatin (LIPITOR) 80 mg tablet Take 1 tablet by mouth once daily. - clopidogrel (PLAVIX) 75 mg tablet Take 1 tablet by mouth once daily. Take 75 mg by mouth once daily. - Lancets Test blood sugar(s) 1 times daily. Dx: Type 2 DM - Controlled E11.9 Insulin: No - blood sugar diagnostic (BLOOD GLUCOSE TEST) test strip Test blood sugar(s) 1 times daily. Dx: Type 2 DM - Controlled E11.9 Insulin: No - levothyroxine (LEVOXYL) 50 mcg tablet Take 1 tablet by mouth once daily. Take on empty stomach. For Thyroid - losartan (COZAAR) 50 mg tablet Take 1 tablet by mouth once daily. - metFORMIN ER (GLUCOPHAGE XR) 500 mg 24 hr tablet Take 2 tablets by mouth two times a day with meals. - empagliflozin (JARDIANCE) 25 mg tablet Take 1 tablet by mouth once daily. Take 1 tablet once daily in the morning - terconazole vaginal cream (TERAZOL) 0.8 % vaginal cream Use 1 Applicator vaginally daily at bedtime. - cyanocobalamin 1,000 mcg/mL Inject 1 mL intramuscularly once every month. - blood sugar diagnostic (BLOOD GLUCOSE TEST) test strip Test blood sugar(s) 2 times daily. Dx: Type 2 DM - Uncontrolled E11.65 Insulin: No - Lancets lancets Test blood sugar(s) two times times daily. Dx: Other DM Code E11.65 Insulin: No - metoprolol tartrate, short acting, (LOPRESSOR) 25 mg tablet Take 25 mg by mouth twice daily. - apixaban (ELIQUIS) 5 mg tab(s) Take by mouth twice daily. - fluticasone (FLONASE) 50 mcg/actuation nasal spray Use 2 Sprays in each nostril once daily. Facility-Administered Medications as of 08/14/2024 - cyanocobalamin 1,000 mcg injection Problem List As Of Date 08/14/2024 Noted Resolved Type II or unspecified type diabetes mellitus w*09/25/2014 02/19/2015 Other and unspecified hyperlipidemia [E78.5] 09/25/2014 06/21/2015 Essential hypertension [I10] 09/25/2014 BMI 38.0-38.9,adult [Z68.38] 09/25/2014 11/30/2014 Other allergic rhinitis [J30.89] 09/25/2014 BMI 37.0-37.9, adult [Z68.37] 11/30/2014 Diabetes mellitus type 2 with complications (HC*02/19/2015 Uncontrolled type 2 diabetes with neuropathy (H*04/23/2015 Mixed hyperlipidemia [E78.2] 12/24/2015 Occipital stroke (HCC) [I63.9] 02/14/2020 Vision loss [H54.7] 02/14/2020 NSTEMI (non-ST elevated myocardial infarction) *02/14/2020 Paroxysmal A-fib (HCC) [I48.0] 05/15/2020 Vitamin B 12 deficiency [E53.8] 06/12/2020 Encounter Status:Closed by AGUEDA SABILLON on 08/14/24 [facility] Bacteria Ur Culton 5 Bacteria identified Cx Nom (U) ORGANISM ID: 1 >=100,000 CFU/ml Escherichia coli ORGANISM ID: 1 (ESCHERICHIA COLI) ------ ANTIBIOTIC INTERPRETATION AVILA STATUS REFERENCE RANGE ------ Ampicillin S <=2 F Susceptible <=8 , Intermediate >8 , Resistant >16 Cefazolin S <=4 F Susceptible 0-16 , Intermediate <0 or >16 , Resistant >16 For uncomplicated urinary tract infections, cefazolin results can be used to predict susceptibility or resistance to cephalexin. Ceftriaxone S <=1 F Susceptible <=1 , Intermediate >1 , Resistant >=4 Cefepime S <=1 F Susceptible <=2 , Susceptible-Dose Dependent >2 , Resistant >=16 Ertapenem S <=0.5 F Susceptible <=0.5 , Intermediate >.5 , Resistant >1 Meropenem S <=0.25 F Susceptible <=1 , Intermediate >1 , Resistant >2 Ampicillin/Sulbact S <=2 F Susceptible <=8 , Intermediate >8 , Resistant >16 Piperacillin/Tazobac S <=4 F Susceptible <16 , Susceptible-Dose Dependent >=16 , Resistant >=32 Gentamicin S <=1 F Susceptible <=2 , Intermediate >2 , Resistant >=8 Tobramycin S <=1 F Susceptible <4 , Intermediate >=4 , Resistant >=8 Trimeth sulfameth S <=20 F Susceptible <=40 , Resistant >40 Ciprofloxacin S <=0.25 F Susceptible <0.5 , Intermediate >=.5 , Resistant >=1 Nitrofurantoin S <=16 F Susceptible <=32 , Intermediate >32 , Resistant >64 Abnormal [facility] Comment on above: Performed By: #### 6 30-4 ####[facility] LABSAMANTHA [id number] [place] [id number] [place] CNOVon 07-25-2024 CNOV Office Visit (INTMWS ) BRITNEY CANADA ([id number]) 1945 F Date Time Provider Department 07/25/24 8:00 AM JONES VELASQUEZ INTArtemioWS During your visit today, we recorded the following information about you: Temperature Pulse Blood pressure Weight 98.5 degrees 73/minute 108/68 81.6 kg Jones Velasquez MD 07/25/2024 8:28 AM Signed We discussed your urinary symptoms and possible urinary tract infection (UTI): - Your urinalysis showed positive nitrates, large leukocytes, and a small amount of blood, which strongly suggests a UTI. - You reported feeling better since Wednesday, with no fever or chills currently, so we will not start antibiotics at this time. - I have sent a prescription for Bactrim (antibiotic) to your pharmacy. Only take this if your symptoms worsen, such as developing a fever, visible blood in your urine, or increased urinary discomfort. The course is for 5 days. - A urine culture has been ordered to confirm the infection and guide treatment if needed. We discussed the possibility of a kidney stone: - Based on your symptoms, a kidney stone may be a consideration. However, since your symptoms are improving, imaging is not necessary at this time. - If your symptoms worsen or persist, an ultrasound has been ordered and can be scheduled at your convenience. We discussed your use of Jardiance: - Jardiance can increase the risk of UTIs. You mentioned stopping Jardiance on July 23, and this may be contributing to your improvement. - Please let me know if you decide to restart Jardiance or if you have any concerns about your diabetes management. Follow-up instructions: - Monitor your symptoms closely. If you develop a fever, chills, visible blood in your urine, or worsening pain, please start the Bactrim and contact our office. - If your symptoms persist or worsen despite taking the Bactrim, please schedule a follow-up appointment with me. - If you decide to proceed with the ultrasound, call to schedule it using the order I placed today. Your kidney function is good, and there are no concerns at this time. Please let me know if you have any further questions or concerns. Jones Velasquez MD 07/25/2024 9:12 AM Signed Reason for Visit UTI DANIELA Tan is a 78-year-old female with a history of UTIs, presenting with back pain and urinary symptoms. Britney reports experiencing back pain and urinary symptoms, including achiness and cramping in the back, particularly on Wednesday. She denies hematuria or dysuria. She also experienced a chill on Wednesday but denies any fever. Her symptoms have been improving since then. She is currently taking Jardiance, which she started in September and has helped her lose 45 lbs. She has not taken Jardiance since 07/23 due to concerns that it may be contributing to her urinary symptoms. She denies a history of nephrolithiasis. In January, she was diagnosed with a UTI after a flight to [place] during which she did not drink enough water. She presented to the emergency room with emesis and was diagnosed with a UTI at that time. She is scheduled for cataract surgery on 09/16 and is concerned that an infection may delay the procedure. Social History Tobacco Use Smoking status: Never Smokeless tobacco: Never Vaping Use Vaping status: Never Used Substance Use Topics Alcohol use: Yes Comment: rarely Drug use: No Past medical history, appointments, medications, allergies reviewed. Pertinent Lab/Diagnostic Studies are reviewed and discussed today Current Outpatient Medications: atorvastatin (LIPITOR) 80 mg tablet clopidogrel (PLAVIX) 75 mg tablet Lancets blood sugar diagnostic (BLOOD GLUCOSE TEST) test strip levothyroxine (LEVOXYL) 50 mcg tablet losartan (COZAAR) 50 mg tablet metFORMIN ER (GLUCOPHAGE XR) 500 mg 24 hr tablet empagliflozin (JARDIANCE) 25 mg tablet cyanocobalamin 1,000 mcg/mL blood sugar diagnostic (BLOOD GLUCOSE TEST) test strip Lancets lancets metoprolol tartrate, short acting, (LOPRESSOR) 25 mg tablet apixaban (ELIQUIS) 5 mg tab(s) fluticasone (FLONASE) 50 mcg/actuation nasal spray sulfamethoxazole-trim ethoprim (BACTRIM DS) 800-160 mg per tablet terconazole vaginal cream (TERAZOL) 0.8 % vaginal cream Current Facility-Administered Medications: cyanocobalamin 1,000 mcg injection Health Maintenance Depression Screening Anxiety Screening Diabetic Foot Exam Covid-19 Vaccine( season)@ Review Of Systems Constitutional: (+) weight loss, (-) fever, (-) chills Gastrointestinal: (+) nausea Genitourinary: (-) dysuria, (-) hematuria Musculoskeletal: (+) back pain Physical Exam BP 108/68 (BP Site: Left Arm, BP Position: Sitting, BP Cuff Size: Regular Adult) Pulse 73 Temp 36.9 ?C (98.5 ?F) (Oral) Wt 81.6 kg (180 lb) SpO2 100% BMI 32.40 kg/m? GENERAL: NAD, alert and oriented. SKIN: Unremarkable, no rash o (more content not included)... Normal [facility] UA DIP, URINE (POC)on 2024 BILIRUBIN UA (POCT) Negative Negative [facility] CLARITY UA (POCT) Cloudy [facility] COLOR UA (POCT) Other [facility] GLUCOSE UA (POCT) 100 mg/dL Abnormal Negative [facility] Hemoglobin Ql (U) Small Abnormal Negative [facility] Interpretation and review of laboratory results Abnormal [facility] KETONE UA (POCT) Negative Negative mg/dL [facility] LEUKOCYTES UA (POCT) Large Abnormal Negative [facility] NITRITE UA (POCT) Positive Abnormal Negative [facility] PH UA (POCT) 5.5 4.5 - 8.0 [facility] Protein Ql (U) 30 mg/dL Abnormal Negative [facility] SPECIFIC GRAVITY UA (POCT) 1.015 1.005 - 1.030 [facility] UROBILINOGEN UA (POCT) 0.2 Niecy l E.U./dL [facility] Location:[address], [place], [place], [address] [place] [address] POINT OF CARE [facility]2024 [facility] Nurse Visit (FAMPWS) BRITNEY CANADA ([id number]) 1945 F Date Time Provider Department 07/17/24 11:45 AM MS NURSE FAMPWS During your visit today, we recorded the following information about you: AGUEDA SABILLON 07/17/2024 11:42 AM Signed Patient presents for B-12 injection. Denies any problems at this time. Patient instructed on any SE of medication, verbalized understanding and agreed to proceed with treatment. Tolerated injection well. Agueda Sabillon LPN Allergies As of Date: 07/17/2024 Noted Allergy Reaction DARVON (PROPOXYPHENE HCL) 10/11/2008 8 - GI Upset PENICILLINS 10/11/2008 2 - Rash Date Reviewed: 06/09/2024 Reviewed by: Chantale Alves MA - Fully Assessed Reason for Visit: B-12 Injection [247] Primary Visit Diagnosis:Vitamin B 12 deficiency [E53.8] Prescriptions as of 07/17/2024 - atorvastatin (LIPITOR) 80 mg tablet Take 1 tablet by mouth once daily. - clopidogrel (PLAVIX) 75 mg tablet Take 1 tablet by mouth once daily. Take 75 mg by mouth once daily. - Lancets Test blood sugar(s) 1 times daily. Dx: Type 2 DM - Controlled E11.9 Insulin: No - blood sugar diagnostic (BLOOD GLUCOSE TEST) test strip Test blood sugar(s) 1 times daily. Dx: Type 2 DM - Controlled E11.9 Insulin: No - levothyroxine (LEVOXYL) 50 mcg tablet Take 1 tablet by mouth once daily. Take on empty stomach. For Thyroid - losartan (COZAAR) 50 mg tablet Take 1 tablet by mouth once daily. - metFORMIN ER (GLUCOPHAGE XR) 500 mg 24 hr tablet Take 2 tablets by mouth two times a day with meals. - empagliflozin (JARDIANCE) 25 mg tablet Take 1 tablet by mouth once daily. Take 1 tablet once daily in the morning - terconazole vaginal cream (TERAZOL) 0.8 % vaginal cream Use 1 Applicator vaginally daily at bedtime. - cyanocobalamin 1,000 mcg/mL Inject 1 mL intramuscularly once every month. - blood sugar diagnostic (BLOOD GLUCOSE TEST) test strip Test blood sugar(s) 2 times daily. Dx: Type 2 DM - Uncontrolled E11.65 Insulin: No - Lancets lancets Test blood sugar(s) two times times daily. Dx: Other DM Code E11.65 Insulin: No - metoprolol tartrate, short acting, (LOPRESSOR) 25 mg tablet Take 25 mg by mouth twice daily. - apixaban (ELIQUIS) 5 mg tab(s) Take by mouth twice daily. - fluticasone (FLONASE) 50 mcg/actuation nasal spray Use 2 Sprays in each nostril once daily. Facility-Administered Medications as of 07/17/2024 - cyanocobalamin 1,000 mcg injection Problem List As Of Date 07/17/2024 Noted Resolved Type II or unspecified type diabetes mellitus w*09/25/2014 02/19/2015 Other and unspecified hyperlipidemia [E78.5] 09/25/2014 06/21/2015 Essential hypertension [I10] 09/25/2014 BMI 38.0-38.9,adult [Z68.38] 09/25/2014 11/30/2014 Other allergic rhinitis [J30.89] 09/25/2014 BMI 37.0-37.9, adult [Z68.37] 11/30/2014 Diabetes mellitus type 2 with complications (HC*02/19/2015 Uncontrolled type 2 diabetes with neuropathy (H*04/23/2015 Mixed hyperlipidemia [E78.2] 12/24/2015 Occipital stroke (HCC) [I63.9] 02/14/2020 Vision loss [H54.7] 02/14/2020 NSTEMI (non-ST elevated myocardial infarction) *02/14/2020 Paroxysmal A-fib (HCC) [I48.0] 05/15/2020 Vitamin B 12 deficiency [E53.8] 06/12/2020 Encounter Status:Closed by AGUEDA SABILLON on 07/17/24 [facility] 06-19-2024 [facility] Nurse Visit (FAMPWS) BRITNEY CANADA ([id number]) 1945 F Date Time Provider Department 06/19/24 11:45 AM MS NURSE FAMPWS During your visit today, we recorded the following information about you: AGUEDA SABILLON 06/19/2024 11:58 AM Signed Patient presents for B-12 injection. Denies any problems at this time. Patient instructed on any SE of medication, verbalized understanding and agreed to proceed with treatment. Tolerated injection well. Agueda Sabillon LPN Allergies As of Date: 06/19/2024 Noted Allergy Reaction DARVON (PROPOXYPHENE HCL) 10/11/2008 8 - GI Upset PENICILLINS 10/11/2008 2 - Rash Date Reviewed: 06/09/2024 Reviewed by: Chantale Alves MA - Fully Assessed Reason for Visit: B-12 Injection [247] Primary Visit Diagnosis:Vitamin B 12 deficiency [E53.8] Prescriptions as of 06/19/2024 - atorvastatin (LIPITOR) 80 mg tablet Take 1 tablet by mouth once daily. - clopidogrel (PLAVIX) 75 mg tablet Take 1 tablet by mouth once daily. Take 75 mg by mouth once daily. - Lancets Test blood sugar(s) 1 times daily. Dx: Type 2 DM - Controlled E11.9 Insulin: No - blood sugar diagnostic (BLOOD GLUCOSE TEST) test strip Test blood sugar(s) 1 times daily. Dx: Type 2 DM - Controlled E11.9 Insulin: No - levothyroxine (LEVOXYL) 50 mcg tablet Take 1 tablet by mouth once daily. Take on empty stomach. For Thyroid - losartan (COZAAR) 50 mg tablet Take 1 tablet by mouth once daily. - metFORMIN ER (GLUCOPHAGE XR) 500 mg 24 hr tablet Take 2 tablets by mouth two times a day with meals. - empagliflozin (JARDIANCE) 25 mg tablet Take 1 tablet by mouth once daily. Take 1 tablet once daily in the morning - terconazole vaginal cream (TERAZOL) 0.8 % vaginal cream Use 1 Applicator vaginally daily at bedtime. - cyanocobalamin 1,000 mcg/mL Inject 1 mL intramuscularly once every month. - blood sugar diagnostic (BLOOD GLUCOSE TEST) test strip Test blood sugar(s) 2 times daily. Dx: Type 2 DM - Uncontrolled E11.65 Insulin: No - Lancets lancets Test blood sugar(s) two times times daily. Dx: Other DM Code E11.65 Insulin: No - metoprolol tartrate, short acting, (LOPRESSOR) 25 mg tablet Take 25 mg by mouth twice daily. - apixaban (ELIQUIS) 5 mg tab(s) Take by mouth twice daily. - fluticasone (FLONASE) 50 mcg/actuation nasal spray Use 2 Sprays in each nostril once daily. Facility-Administered Medications as of 06/19/2024 - cyanocobalamin 1,000 mcg injection Problem List As Of Date 06/19/2024 Noted Resolved Type II or unspecified type diabetes mellitus w*09/25/2014 02/19/2015 Other and unspecified hyperlipidemia [E78.5] 09/25/2014 06/21/2015 Essential hypertension [I10] 09/25/2014 BMI 38.0-38.9,adult [Z68.38] 09/25/2014 11/30/2014 Other allergic rhinitis [J30.89] 09/25/2014 BMI 37.0-37.9, adult [Z68.37] 11/30/2014 Diabetes mellitus type 2 with complications (HC*02/19/2015 Uncontrolled type 2 diabetes with neuropathy (H*04/23/2015 Mixed hyperlipidemia [E78.2] 12/24/2015 Occipital stroke (HCC) [I63.9] 02/14/2020 Vision loss [H54.7] 02/14/2020 NSTEMI (non-ST elevated myocardial infarction) *02/14/2020 Paroxysmal A-fib (HCC) [I48.0] 05/15/2020 Vitamin B 12 deficiency [E53.8] 06/12/2020 Encounter Status:Closed by AGUEDA SABILLON on 06/19/24 [facility] CNOVon 06-09-2024 CNOV Office Visit (INTMWS ) BRITNEY CANADA ([id number]) 1945 F Date Time Provider Department 06/09/24 10:00 AM ASTRID MUSE INTFERNANDA During your visit today, we recorded the following information about you: Pulse Respiration Blood pressure Weight 64/minute 16/minute 112/68 81.2 kg Astrid Muse APRN.FINISH CLE[employer]ER 06/09/2024 12:19 PM Signed CC: Patient presents with: Recheck: 6 week follow up UTI and medication HPI Britney Canada is a 78 year old female who presents today for recheck after UTI which resulted in hospitalization, concern for second UTI and evaluation for continuing Jardiance. Patient denies any new symptoms of urinary tract infection including dysuria, burning or frequency. She is currently on Jardiance and metformin for her diabetes. She does feel like the Jardiance has helped her be able to lose weight and stabilize her blood sugars. Blood sugars at home average between 123 and 128 per patient, 116 this morning. She follows mostly a plant-based diet with eggs. She does walk around her house intentionally for exercise. Denies any other associated symptoms today REVIEW OF SYSTEMS General: no fevers, no chills, no recurrent infections, no change in appetite, no change in energy, and no significant changes in weight Respiratory: no cough, no wheezing, no shortness of breath Cardiovascular: no chest pain, no chest pressure, no palpitations, and no swelling : Negative for dysuria, frequency, and incontinence, See HPI Neurologic: No headache, weakness, numbness, tingling, neck stiffness, tremor, vertigo, dizziness, memory loss, syncope. See HPI PAST MEDICAL HISTORY Diagnosis Date Abnormal mammogram, unspecified Diabetes mellitus without mention of complication High blood pressure High cholesterol Thyroid disease PAST SURGICAL HISTORY Procedure Laterality Date CHOLECYSTECTOMY 1989 RPR UMBILICAL HRNA 5 YRS/> REDUCIBLE STEREOTACTIC CORE BIOPSY 10/18/08 RIGHT BREAST ALLERGIES Darvon [Propoxyphene Hcl] and Penicillins MEDICATIONS LancetsTest blood sugar(s) 1 times daily. Dx: Type 2 DM - Controlled E11.9 Insulin: NoDisp: 100 EachRfl: 11 blood sugar diagnostic (BLOOD GLUCOSE TEST) test stripTest blood sugar(s) 1 times daily. Dx: Type 2 DM - Controlled E11.9 Insulin: NoDisp: 50 StripRfl: 11 levothyroxine (LEVOXYL) 50 mcg tabletTake 1 tablet by mouth once daily. Take on empty stomach. For ThyroidDisp: 90 tabletRfl: 1 losartan (COZAAR) 50 mg tabletTake 1 tablet by mouth once daily.Disp: 90 tabletRfl: 3 metFORMIN ER (GLUCOPHAGE XR) 500 mg 24 hr tabletTake 2 tablets by mouth two times a day with meals.Disp: 360 tabletRfl: 3 empagliflozin (JARDIANCE) 25 mg tabletTake 1 tablet by mouth once daily. Take 1 tablet once daily in the morningDisp: 90 tabletRfl: 3 clopidogrel (PLAVIX) 75 mg tabletTake 1 tablet by mouth once daily. Take 75 mg by mouth once daily.Disp: 90 tabletRfl: 3 atorvastatin (LIPITOR) 80 mg tabletTAKE 1 TABLET BY MOUTH ONCE DAILY AT BEDTIME FOR CHOLESTEROLDisp: 90 tabletRfl: 3 terconazole vaginal cream (TERAZOL) 0.8 % vaginal creamUse 1 Applicator vaginally daily at bedtime.Disp: 20 gRfl: 0 cyanocobalamin 1,000 mcg/mLInject 1 mL intramuscularly once every month.Disp: 1 mLRfl: 12 blood sugar diagnostic (BLOOD GLUCOSE TEST) test stripTest blood sugar(s) 2 times daily. Dx: Type 2 DM - Uncontrolled E11.65 Insulin: NoDisp: 100 StripRfl: 5 Lancets lancetsTest blood sugar(s) two times times daily. Dx: Other DM Code E11.65 Insulin: NoDisp: 100 EachRfl: 11 metoprolol tartrate, short acting, (LOPRESSOR) 25 mg tabletTake 25 mg by mouth twice daily.Disp: Rfl: apixaban (ELIQUIS) 5 mg tab(s)Take by mouth twice daily.Disp: Rfl: fluticasone (FLONASE) 50 mcg/actuation nasal sprayUse 2 Sprays in each nostril once daily.Disp: 3 BottleRfl: 3 FAMILY HISTORY Problem Relation Age of Onset Prostate Cancer Father Breast Cancer Mother 40 Coronary Artery Disease Mother pace maker Coronary Artery Disease Father triple bypass Social History Tobacco Use Smoking status: Never Smokeless tobacco: Never Vaping Use Vaping status: Never Used Substance Use Topics Alcohol use: Yes Comment: rarely Drug use: No PHYSICAL EXAM BP 112/68 Pulse 64 Resp 16 Wt 81.2 kg (179 lb) SpO2 98% BMI 32.22 kg/m? General Appearance: well appearing, in no acute distress, alert Skin: Skin color, texture, turgor normal for age; Lungs: Lungs clear to auscultation. No wheezing, rhonchi, rales. Heart: RRR without murmur, gallop, or rubs. No ectopy Musculoskeletal: No joint swelling, deformity, or tenderness Neurological: Gait normal. Reflexes normal and symmetric. Sensation grossly intact. Health maintenance reviewed with patient: Depression Screening Never done Anxiety Screening Never done Diabetic Foot Exam due on 11/21/2022 Covid-19 Vaccine( season) due on (more content not included)... Normal [facility] CNNURSEon 05-22-2024 [facility] ([facility] BRITNEY CANADA ([id number]) 1945 F Date Time Provider Department 05/22/24 11:45 AM MS NURSE FAMPWS During your visit today, we recorded the following information about you: AGUEDA SABILLON 05/22/2024 11:40 AM Signed Patient presents for B-12 injection. Denies any problems at this time. Patient instructed on any SE of medication, verbalized understanding and agreed to proceed with treatment. Tolerated injection well. Agueda Sabillon LPN Allergies As of Date: 05/22/2024 Noted Allergy Reaction DARVON (PROPOXYPHENE HCL) 10/11/2008 8 - GI Upset PENICILLINS 10/11/2008 2 - Rash Date Reviewed: 04/28/2024 Reviewed by: Chantale Alves MA - Fully Assessed Reason for Visit: B-12 Injection [247] Primary Visit Diagnosis:Vitamin B 12 deficiency [E53.8] Prescriptions as of 05/22/2024 - Lancets Test blood sugar(s) 1 times daily. Dx: Type 2 DM - Controlled E11.9 Insulin: No - blood sugar diagnostic (BLOOD GLUCOSE TEST) test strip Test blood sugar(s) 1 times daily. Dx: Type 2 DM - Controlled E11.9 Insulin: No - levothyroxine (LEVOXYL) 50 mcg tablet Take 1 tablet by mouth once daily. Take on empty stomach. For Thyroid - losartan (COZAAR) 50 mg tablet Take 1 tablet by mouth once daily. - metFORMIN ER (GLUCOPHAGE XR) 500 mg 24 hr tablet Take 2 tablets by mouth two times a day with meals. - empagliflozin (JARDIANCE) 25 mg tablet Take 1 tablet by mouth once daily. Take 1 tablet once daily in the morning - clopidogrel (PLAVIX) 75 mg tablet Take 1 tablet by mouth once daily. Take 75 mg by mouth once daily. - atorvastatin (LIPITOR) 80 mg tablet TAKE 1 TABLET BY MOUTH ONCE DAILY AT BEDTIME FOR CHOLESTEROL - terconazole vaginal cream (TERAZOL) 0.8 % vaginal cream Use 1 Applicator vaginally daily at bedtime. - cyanocobalamin 1,000 mcg/mL Inject 1 mL intramuscularly once every month. - blood sugar diagnostic (BLOOD GLUCOSE TEST) test strip Test blood sugar(s) 2 times daily. Dx: Type 2 DM - Uncontrolled E11.65 Insulin: No - Lancets lancets Test blood sugar(s) two times times daily. Dx: Other DM Code E11.65 Insulin: No - metoprolol tartrate, short acting, (LOPRESSOR) 25 mg tablet Take 25 mg by mouth twice daily. - apixaban (ELIQUIS) 5 mg tab(s) Take by mouth twice daily. - fluticasone (FLONASE) 50 mcg/actuation nasal spray Use 2 Sprays in each nostril once daily. Facility-Administered Medications as of 05/22/2024 - cyanocobalamin 1,000 mcg injection Problem List As Of Date 05/22/2024 Noted Resolved Type II or unspecified type diabetes mellitus w*09/25/2014 02/19/2015 Other and unspecified hyperlipidemia [E78.5] 09/25/2014 06/21/2015 Essential hypertension [I10] 09/25/2014 BMI 38.0-38.9,adult [Z68.38] 09/25/2014 11/30/2014 Other allergic rhinitis [J30.89] 09/25/2014 BMI 37.0-37.9, adult [Z68.37] 11/30/2014 Diabetes mellitus type 2 with complications (HC*02/19/2015 Uncontrolled type 2 diabetes with neuropathy (H*04/23/2015 Mixed hyperlipidemia [E78.2] 12/24/2015 Occipital stroke (HCC) [I63.9] 02/14/2020 Vision loss [H54.7] 02/14/2020 NSTEMI (non-ST elevated myocardial infarction) *02/14/2020 Paroxysmal A-fib (HCC) [I48.0] 05/15/2020 Vitamin B 12 deficiency [E53.8] 06/12/2020 Encounter Status:Closed by AGUEDA SABILLON on 05/22/24 Normal [facility] CNOVon 04-28-2024 CNOV Office Visit (INTMWS ) BRITNEY CANADA ([id number]) 1945 F Date Time Provider Department 04/28/24 10:20 AM ASTRID MUSE During your visit today, we recorded the following information about you: Pulse Respiration Blood pressure Weight 64/minute 16/minute 122/68 80.3 kg Astrid Muse APRN.CNP 04/28/2024 2:19 PM Signed CC: Patient presents with: Recheck: 6 month follow up HPI Britney Canada is a 78 year old female who presents today for routine follow up. DIABETES MELLITUS: Ms. Canada denies excessive thirst, chest pain or dyspnea , numbness, tingling or pain in extremities, new or unusual visual symptoms, low sugar/hypoglycemic reactions, weight loss/gain, lightheadedness/dizzi ness, and bowel changes/loose stools. Follows a diabetic diet most of the time. She is compliant with medication(s) and is tolerating med(s) without any side effects. She reports checking her glucose on a once a day schedule with sugars in the <150 range. Patient's last HgA1C was Hemoglobin A1C (%) Date Value 04/26/2024 7.2 10/26/2023 7.7 03/25/2021 7.9 12/06/2020 8.3 Hemoglobin A1C (POCT) (%) Date Value 09/18/2022 9.0 11/21/2021 8.0 ) Has had ongoing urinary concerns. Was in the hospital with severe UTI 3 months ago which improved with cefdinir and concerned she needs retreated with this. Having some pressure to lower abdomen and just feels off but no severe pain with urination at this time. Recognizes the concern the jardiance increases risk of this but feels this has improved her diabetes and wants to keep trying to see if she can get this under control. Denies fever, chills, malaise, or other new concerns. REVIEW OF SYSTEMS See HPI PAST MEDICAL HISTORY Diagnosis Date Abnormal mammogram, unspecified Diabetes mellitus without mention of complication High blood pressure High cholesterol Thyroid disease PAST SURGICAL HISTORY Procedure Laterality Date CHOLECYSTECTOMY 1989 RPR UMBILICAL HRNA 5 YRS/> REDUCIBLE STEREOTACTIC CORE BIOPSY 10/18/08 RIGHT BREAST ALLERGIES Darvon [Propoxyphene Hcl] and Penicillins MEDICATIONS levothyroxine (LEVOXYL) 50 mcg tabletTake 1 tablet by mouth once daily. Take on empty stomach. For ThyroidDisp: 90 tabletRfl: 1 losartan (COZAAR) 50 mg tabletTake 1 tablet by mouth once daily.Disp: 90 tabletRfl: 3 metFORMIN ER (GLUCOPHAGE XR) 500 mg 24 hr tabletTake 2 tablets by mouth two times a day with meals.Disp: 360 tabletRfl: 3 empagliflozin (JARDIANCE) 25 mg tabletTake 1 tablet by mouth once daily. Take 1 tablet once daily in the morningDisp: 90 tabletRfl: 3 clopidogrel (PLAVIX) 75 mg tabletTake 1 tablet by mouth once daily. Take 75 mg by mouth once daily.Disp: 90 tabletRfl: 3 atorvastatin (LIPITOR) 80 mg tabletTAKE 1 TABLET BY MOUTH ONCE DAILY AT BEDTIME FOR CHOLESTEROLDisp: 90 tabletRfl: 3 terconazole vaginal cream (TERAZOL) 0.8 % vaginal creamUse 1 Applicator vaginally daily at bedtime.Disp: 20 gRfl: 0 cyanocobalamin 1,000 mcg/mLInject 1 mL intramuscularly once every month.Disp: 1 mLRfl: 12 blood sugar diagnostic (BLOOD GLUCOSE TEST) test stripTest blood sugar(s) 2 times daily. Dx: Type 2 DM - Uncontrolled E11.65 Insulin: NoDisp: 100 StripRfl: 5 Lancets lancetsTest blood sugar(s) two times times daily. Dx: Other DM Code E11.65 Insulin: NoDisp: 100 EachRfl: 11 metoprolol tartrate, short acting, (LOPRESSOR) 25 mg tabletTake 25 mg by mouth twice daily.Disp: Rfl: apixaban (ELIQUIS) 5 mg tab(s)Take by mouth twice daily.Disp: Rfl: fluticasone (FLONASE) 50 mcg/actuation nasal sprayUse 2 Sprays in each nostril once daily.Disp: 3 BottleRfl: 3 FAMILY HISTORY Problem Relation Age of Onset Prostate Cancer Father Breast Cancer Mother 40 Coronary Artery Disease Mother pace maker Coronary Artery Disease Father triple bypass Social History Tobacco Use Smoking status: Never Smokeless tobacco: Never Vaping Use Vaping status: Never Used Substance Use Topics Alcohol use: Yes Comment: rarely Drug use: No PHYSICAL EXAM BP 122/68 Pulse 64 Resp 16 Wt 80.3 kg (177 lb) SpO2 97% BMI 31.86 kg/m? General Appearance: well appearing, in no acute distress, alert Eyes: conjunctiva pink and moist, no icterus, sclera white, non-injected Lungs: Lungs clear to auscultation. No wheezing, rhonchi, rales. Heart: RRR without murmur, gallop, or rubs. No ectopy Abdomen: Abdomen soft, Bowel sounds normal. No masses, organomegaly. Slight tenderness to lower abdomen without grimacing guarding rigidity or rebound pain. Health maintenance reviewed with patient: Depression Screening Never done Anxiety Screening Never done Diabetic Foot Exam due on 11/21/2022 RSV Vaccine(1 - 1-dose 75+ series) due on 10/26/2024 Covid-19 Vaccine( season) due on 05/30/2024 HbA1C due on 10/24/2024 Dilated Retinal Exam due on 12/01/2024 Urine Album (more content not included)... Normal [facility] ALBUMIN/CREATININE RATIO, UR INEon 04-26-2024 Albumin DL <= 20 mg/L (U) [Mass/Vol] 23.4 mg/L Normal [facility] Comment on above: Order Comment: Speci men Type: URINE SPECIMENOrdering Facility: [facility] Address: [address] [place] [address] Performed By: #### U ACR ####[facility] LABCLIA [id number] [place] [address] [place] Albumin/Creatinine (U) [Mass ratio] 36 mg/g High <30 [facility] Comment on above: Order Comment: Speci men Type: URINE SPECIMENOrdering Facility: [facility] Address: [address] [place] [address] Result Comment: Adul t Male and Female Nephrotic Criteria: <30 mg/g is considered normal to mildly increased 30-300 mg/g is considered moderately increased >300 mg/g is considered severely increased KDIGO. (2013). KDIGO 2012 Clinical Practice Guideline for the Evaluation and Management of Chronic Kidney Disease. Official Journal of the International Society of Nephrology, 3(1), 1-150. Performed By: #### U ACR ####[facility] LABCLIA [id number] [place] [address] [place] Creatinine (U) [Mass/Vol] 65.6 mg/dL Normal 20.0-300.0 [facility] Comment on above: Order Comment: Speci men Type: URINE SPECIMENOrdering Facility: [facility] Address: [address] [place] [address] Performed By: #### U ACR ####[facility] LABCLIA [id number] [place] [address] [place] Bacteria Ur Culton Bacteria identified Cx Nom (U) ORGANISM ID: 1 50,000-<100,000 CFU/ml Normal urogenital kevin Normal [facility] Comment on above: Performed By: #### 6 30-4, 04556-3 ####[facility] LABCLIA [id number] [place] [address] [place] CBC panel Auto (Bld)on 04-26 Erythrocyte distribution width (RBC) [Ratio] 16.3 % High 11.5-15.0 [facility] Comment on above: Order Comment: Speci men Type: BLOOD SPECIMENOrdering Facility: [facility] Address: [address] [place] [address] Performed By: #### 5 8410-2 ####[facility] DIONEWNCLIA [id number] [place] [address] [place] Hematocrit (Bld) [Volume fraction] 38.6 % Normal 36.0-46.0 [facility] Comment on above: Order Comment: Speci men Type: BLOOD SPECIMENOrdering Facility: [facility] Address: [address] [place] [address] Performed By: #### 5 8410-2 ####[facility] [id number] [place] [address] [place] Hemoglobin (Bld) [Mass/Vol] 11.7 g/dL Normal 11.5-15.5 [facility] Comment on above: Order Comment: Speci men Type: BLOOD SPECIMENOrdering Facility: [facility] Address: [address] [place] [address] Performed By: #### 5 8410-2 ####[facility] [id number] [place] [address] [place] MCH (RBC) [Entitic mass] 25.7 pg Low 26.0-34.0 [facility] Comment on above: Order Comment: Speci men Type: BLOOD SPECIMENOrdering Facility: [facility] Address: [address] [place] [address] Performed By: #### 5 8410-2 ####[facility] PREBLELIA [id number] [place] [address] [place] MCHC (RBC) [Mass/Vol] 30.3 g/dL Low 30.5-36.0 [facility] Comment on above: Order Comment: Speci men Type: BLOOD SPECIMENOrdering Facility: [facility] Address: [address] [place] [address] Performed By: #### 5 8410-2 ####[facility] [id number] [place] [address] [place] MCV (RBC) [Entitic vol] 84.6 fL Normal 80.0-100.0 [facility] Comment on above: Order Comment: Speci men Type: BLOOD SPECIMENOrdering Facility: [facility] Address: [address] [place] [address] Performed By: #### 5 8410-2 ####[facility] [id number] [place] [address] [place] Nucleated RBC (Bld) [#/Vol] 10*3/uL Normal <0.01 [facility] Comment on above: Order Comment: Speci men Type: BLOOD SPECIMENOrdering Facility: [facility] Address: [address] [place] [address] Performed By: #### 5 8410-2 ####[facility]Adelita [id number] [place] [address] [place] Platelet mean volume (Bld) [Entitic vol] 9.5 fL Normal 9.0-12.7 [facility] Comment on above: Order Comment: Speci men Type: BLOOD SPECIMENOrdering Facility: [facility] Address: [address] [place] [address] Performed By: #### 5 8410-2 ####[facility] [id number] [place] [address] [place] Platelets (Bld) [#/Vol] 442 10*3/uL High 150-400 [facility] Comment on above: Order Comment: Speci men Type: BLOOD SPECIMENOrdering Facility: [facility] Address: [address] [place] [address] Performed By: #### 5 8410-2 ####[facility] [id number] [place] [address] [place] RBC (Bld) [#/Vol] 4.56 10*6/uL Normal 3.90-5.20 [facility] Comment on above: Order Comment: Speci men Type: BLOOD SPECIMENOrdering Facility: [facility] Address: [address] [place] [address] Performed By: #### 5 8410-2 ####[facility] ERWNCLIA [id number] [place] [address] [place] WBC (Bld) [#/Vol] 7.66 10*3/uL Normal 3.70-11.00 [facility] Comment on above: Order Comment: Speci men Type: BLOOD SPECIMENOrdering Facility: [facility] Address: [address] [place] [address] Performed By: #### 5 8410-2 ####[facility] [id number] [place] [address] [place] Comprehensive metabolic 2000 panelon 04-26-2024 Albumin [Mass/Vol] 4.2 g/dL Normal 3.9-4.9 [facility] Comment on above: Order Comment: Speci men Type: BLOOD SPECIMENOrdering Facility: [facility] Address: [address] [place] [address] Performed By: #### 2 4323-8 ####[facility] [id number] [place] [address] [place] ALP [Catalytic activity/Vol] 72 U/L Normal 34-123 [facility] Comment on above: Order Comment: Speci men Type: BLOOD SPECIMENOrdering Facility: [facility] Address: [address] [place] [address] Performed By: #### 2 4323-8 ####[facility] [id number] [place] [address] [place] ALT [Catalytic activity/Vol] 11 U/L Normal 7-38 [facility] Comment on above: Order Comment: Speci men Type: BLOOD SPECIMENOrdering Facility: [facility] Address: [address] [place] [address] Performed By: #### 2 4323-8 ####[facility] SUKHJINDER MILLTOWNCLIA [id number] [place] [address] [place] Anion gap [Moles/Vol] 14 mmol/L Normal 8-15 [facility] Comment on above: Order Comment: Speci men Type: BLOOD SPECIMENOrdering Facility: [facility] Address: [address] [place] [address] Performed By: #### 2 4323-8 ####[facility] MILLTOWNCLIA [id number] [place] [address] [place] AST [Catalytic activity/Vol] 12 U/L Low 13-35 [facility] Comment on above: Order Comment: Speci men Type: BLOOD SPECIMENOrdering Facility: [facility] Address: [address] [place] [address] Performed By: #### 2 4323-8 ####[facility] MILLTOWNCLIA [id number] [place] [address] [place] Bilirubin [Mass/Vol] 0.7 mg/dL Normal 0.2-1.3 [facility] Comment on above: Order Comment: Speci men Type: BLOOD SPECIMENOrdering Facility: [facility] Address: [address] [place] [address] Performed By: #### 2 4323-8 ####[facility] MILLTOWNCLIA [id number] [place] [address] [place] Calcium [Mass/Vol] 9.8 mg/dL Normal 8.5-10.2 [facility] Comment on above: Order Comment: Speci men Type: BLOOD SPECIMENOrdering Facility: [facility] Address: [address] [place] [address] Performed By: #### 2 4323-8 ####[facility] MILLTOWNCLIA [id number] [place] [address] [place] Chloride [Moles/Vol] 102 mmol/L Normal 98-107 [facility] Comment on above: Order Comment: Speci men Type: BLOOD SPECIMENOrdering Facility: [facility] Address: [address] [place] [address] Performed By: #### 2 4323-8 ####[facility] [id number] [place] [address] [place] CO2 [Moles/Vol] 24 mmol/L Normal 22-30 [facility] Comment on above: Order Comment: Speci men Type: BLOOD SPECIMENOrdering Facility: [facility] Address: [address] [place] [address] Performed By: #### 2 4323-8 ####[facility] [id number] [place] [address] [place] Creatinine [Mass/Vol] 0.59 mg/dL Normal 0.58-0.96 [facility] Comment on above: Order Comment: Speci men Type: BLOOD SPECIMENOrdering Facility: [facility] Address: [address] [place] [address] Performed By: #### 2 4323-8 ####[facility] [id number] [address] [facility] Creatinine and Glomerular filtration rate.predicted panel (S/P/Bld) 93 mL/min/1.73m??? Normal >=60 [facility] Comment on above: Order Comment: Speci men Type: BLOOD SPECIMENOrdering Facility: [facility] Address: [address] [place] [address] Result Comment: Shakira mated Glomerular Filtration Rate (eGFR) is calculated using the 2020 CKD-EPI creatinine equation. This equation utilizes serum creatinine, sex, and age as parameters. The creatinine assay has traceable calibration to isotope dilution-mass spectrometry. Refer to KDIGO guidelines for clinical interpretation. In patients with unstable renal function, e.g. those with acute kidney injury, the eGFR may not accurately reflect actual GFR. Performed By: #### 2 4323-8 ####[facility] [id number] [place] [address] [place] Glucose [Mass/Vol] 129 mg/dL High 74-99 [facility] Comment on above: Order Comment: Speci men Type: BLOOD SPECIMENOrdering Facility: [facility] Address: [address] [place] [address] Result Comment: The [place] Diabetes Association (ADA) provides guidance for cutoff values for fasting glucose and random glucose. The ADA defines fasting as no caloric intake for at least 8 hours. Fasting plasma glucose results between 100 to 125 mg/dL indicate increased risk for diabetes (prediabetes). Fasting plasma glucose results greater than or equal to 126 mg/dL meet the criteria for diagnosis of diabetes. In the absence of unequivocal hyperglycemia, results should be confirmed by repeat testing. In a patient with classic symptoms of hyperglycemia or hyperglycemic crisis, random plasma glucose results greater than or equal to 200 mg/dL meet the criteria for diagnosis of diabetes. Reference: Standards of Medical Care in Diabetes 2016, [place] Diabetes Association. Diabetes Care. 2016.39(Suppl 1). Performed By: #### 2 4323-8 ####[facility] [id number] [place] [address] [place] Potassium [Moles/Vol] 3.8 mmol/L Normal 3.7-5.1 [facility] Comment on above: Order Comment: Kamla clark Type: BLOOD SPECIMENOrdering Facility: [facility] Address: [address] [place] [address] Performed By: #### 2 4323-8 ####[facility] [id number] [place] [address] [place] Protein [Mass/Vol] 6.8 g/dL Normal 6.3-8.0 [facility] Comment on above: Order Comment: Kamla clark Type: BLOOD SPECIMENOrdering Facility: [facility] Address: [address] [place] [address] Performed By: #### 2 4323-8 ####[facility] [id number] [place] [address] [place] Sodium [Moles/Vol] 140 mmol/L Normal 136-144 [facility] Comment on above: Order Comment: Speci men Type: BLOOD SPECIMENOrdering Facility: [facility] Address: [address] [place] [address] Performed By: #### 2 4323-8 ####[facility] [id number] [place] [address] [place] Urea nitrogen [Mass/Vol] 15 mg/dL Normal 7-21 [facility] Comment on above: Order Comment: Speci men Type: BLOOD SPECIMENOrdering Facility: [facility] Address: [address] [place] [address] Performed By: #### 2 4323-8 ####[facility] [id number] [place] [address] [place] HbA1c (Bld)on 04-26-2024 Average glucose Estimated from glycated hemoglobin (Bld) [Mass/Vol] 160 mg/dL Normal [facility] Comment on above: Order Comment: Speci men Type: BLOOD SPECIMENOrdering Facility: [facility] Address: [address] [place] [address] Result Comment: eAG: (Estimated average glucose) is a calculated value from HgbA1c and is billing representative of the average blood glucose level in the last 2-3 month period. Performed By: #### 5 5454-3 ####[facility] LABCLIA [id number] [place] [address] [place] HbA1c (Bld) [Mass fraction] 7.2 % High 4.3-5.6 [facility] Comment on above: Order Comment: Speci men Type: BLOOD SPECIMENOrdering Facility: [facility] Address: [address] [place] [address] Result Comment: Amer ican Diabetes Association guidelines indicate that patients with HgbA1c in the range 5.7-6.4% are at increased risk for development of diabetes, and intervention by lifestyle modification may be beneficial. HgbA1c greater or equal to 6.5% is considered diagnostic of diabetes. Performed By: #### 5 5454-3 ####[facility] LABCLIA [id number] [address] [facility] Lipid 1996 panelon 5 Cholesterol [Mass/Vol] 119 mg/dL Normal <200 [facility] Comment on above: Order Comment: Speci men Type: BLOOD SPECIMENOrdering Facility: [facility] Address: [address] [place] [address] Result Comment: <200 mg/dL, Desirable 200-239 mg/dL, Borderline high >239 mg/dL, High Performed By: #### 3 016-3 ####[facility] LABCLIA [id number] [address] [place]#### [address]-4 ####[facility]CLIA [id number] [address] STATES OF [facility] [id number] [address] OF [facility] Cholesterol in HDL [Mass/Vol] 29 mg/dL Low >39 [facility] Comment on above: Order Comment: Speci men Type: BLOOD SPECIMENOrdering Facility: [facility] Address: [address] [place] [address] Result Comment: 40-5 9 mg/dL, Acceptable >59 mg/dL, High: Negative risk factor for coronary heart disease <40 mg/dL, Low: Positive risk factor for coronary heart disease Performed By: #### 3 016-3 ####[facility]CLIA [id number] [place] [address] [place]#### 17398-5 ####[facility]CLIA [id number] [address] [id number] [address] Cholesterol in LDL [Mass/Vol] 59 mg/dL Normal <100 [facility] Comment on above: Order Comment: Speci men Type: BLOOD SPECIMENOrdering Facility: [facility] Address: [address] [place] [address] Result Comment: <100 mg/dL, Optimal 100-129 mg/dL, Near optimal/above optimal 130-159 mg/dL, Borderline high 160-189 mg/dL, High >189 mg/dL, Very high Secondary prevention optimal LDL Cholesterol levels are recommended to be < 70 mg/dL Performed By: #### 3 016-3 ####[facility] LABCLIA [id number] [address]#### [address]-6 ####[facility]CLIA [id number] [address] [id number] [address] Cholesterol in LDL/Cholesterol in HDL [Mass ratio] 2.03 {ratio} Normal <2.54 [facility] Comment on above: Order Comment: Barringtoni men Type: BLOOD SPECIMENOrdering Facility: [facility] Address: [address] [place] [address] Result Comment: Refsophy rg: 1. National Cholesterol Education Program ATP III Guideline At-A-Glance Quick Desk Reference: National Heart, Lung, and Blood [place]. National Institutes of Health. 2001: NIH Publication No. 01-3305. 2. An International Atherosclerosis Society position paper: global recommendations for the management of dyslipidemia: executive summary, Atherosclerosis. 2014: 232(2):410-413. Performed By: #### 3 016-3 ####[facility] LABCLIA [id number] [place] [id number] [place]#### 78512-6 ####[facility] LABCLIA [id number] [place] [id number] [facility] [id number] [place] [address] [place] Cholesterol in VLDL [Mass/Vol] 31 mg/dL High <30 [facility] Comment on above: Order Comment: Speci men Type: BLOOD SPECIMENOrdering Facility: [facility] Address: [address] [place] [address] Performed By: #### 3 016-3 ####[facility] LABCLIA [id number] [place] [address] [place]#### 42837-7 ####[facility]CLIA [id number] [address] STATES OF [facility] [id number] [place] [address] [place] Cholesterol non HDL [Mass/Vol] 90 mg/dL Normal <130 [facility] Comment on above: Order Comment: Speci men Type: BLOOD SPECIMENOrdering Facility: [facility] Address: [address] [place] [address] Result Comment: <130 mg/dL, Optimal 130-159 mg/dL, Near optimal/above optimal 160-189 mg/dL, Borderline high 190-219 mg/dL, High >219 mg/dL, Very high Secondary prevention optimal non HDL Cholesterol levels are recommended to be <100 mg/dL Performed By: #### 3 016-3 ####[facility] LABCLIA [id number] [place] [id number] [place]#### 49110-2 ####[facility]CLIA [id number] [address] [id number] [place] [address] [place] Cholesterol.total/Leticia sterol in HDL [Mass ratio] 4.10 {ratio} Normal <5.10 [facility] Comment on above: Order Comment: Speci men Type: BLOOD SPECIMENOrdering Facility: [facility] Address: [address] [place] [address] Performed By: #### 3 016-3 ####[facility] LABCLIA [id number] [place] [address] [place]#### 22366-4 ####[facility]CLIA [id number] [address] STATES OF [facility] [id number] [place] [address] [place] FASTING TIME 12 hrs Normal [facility] Comment on above: Order Comment: Speci men Type: BLOOD SPECIMENOrdering Facility: [facility] Address: [address] [place] [address] Performed By: #### 3 016-3 ####[facility] LABCLIA [id number] [place] [address] [place]#### 43397-8 ####[facility] LABCLIA [id number] [place] [id number] [place] [facility] [id number] [place] [address] [place] Triglyceride [Mass/Vol] 157 mg/dL High <150 [facility] Comment on above: Order Comment: Speci men Type: BLOOD SPECIMENOrdering Facility: [facility] Address: [address] [place], [place] [address] Result Comment: <150 mg/dL, Normal 150-199 mg/dL, Borderline high 200-499 mg/dL, High >499 mg/dL, Very high Performed By: #### 3 016-3 ####[facility] LABCLIA [id number] [place] [address] [place]#### 76599-8 ####[facility]CLIA [id number] [address] [id number] [place] [address] [place] TSH SerPl-aCncon 04-26-2024 TSH Qn 1.720 m[IU]/L Normal 0.270-4.200 [facility] Comment on above: Order Comment: Speci men Type: BLOOD SPECIMENOrdering Facility: [facility] Address: [address] [place] [address] Performed By: #### 3 016-3 ####[facility] LABCLIA [id number] [place] [address] [place]#### 25356-7 ####[facility]CLIA [id number] [address] [id number] [place] [address] [place] Urinalysis complete panel (U )on 04-26-2024 BACTERIA UL 1174.7 uL High Negative [facility] Comment on above: Order Comment: Speci men Type: URINE SPECIMENOrdering Facility: [facility] Address: [address] [place] [address] Performed By: #### 6 30-4, 55622-1 ####[facility] LABCLIA [id number] [place] [address] [place] Bilirubin Ql (U) Negative Normal Negative [facility] Comment on above: Order Comment: Speci men Type: URINE SPECIMENOrdering Facility: [facility] Address: [address] [place] [address] Performed By: #### 6 30-4, 02890-7 ####[facility] LABCLIA [id number] [place] [address] [place] Clarity (Unsp spec) Cloudy Abnormal Clear [facility] Comment on above: Order Comment: Speci men Type: URINE SPECIMENOrdering Facility: [facility] Address: [address] [place] [address] Performed By: #### 6 30-4, 81092-3 ####[facility] LABCLIA [id number] [place] [address] [place] [address] [facility] Color (U) Yellow Normal Yellow [facility] Comment on above: Order Comment: Speci men Type: URINE SPECIMENOrdering Facility: [facility] Address: [address] [place] [address] Performed By: #### 6 30-, 50255-7 ####[facility] LABCLIA [id number] [place] [address] [place] Epithelial cells LM.HPF (Urine sed) [#/Area] Moderate Normal [facility] Comment on above: Order Comment: Speci men Type: URINE SPECIMENOrdering Facility: [facility] Address: [address] [place] [address] Performed By: #### 6 30-4, 89280-7 ####[facility] LABCLIA [id number] [place] [id number] [place] Glucose Test strip (U) [Mass/Vol] 3+ Abnormal Negative [facility] Comment on above: Order Comment: Speci men Type: URINE SPECIMENOrdering Facility: [facility] Address: [address] [place] [address] Performed By: #### 6 30-4, 17972-6 ####[facility] LABCLIA [id number] [place] [address] [place] Hemoglobin Ql (U) Negative Normal Negative [facility] Comment on above: Order Comment: Speci men Type: URINE SPECIMENOrdering Facility: [facility] Address: [address] [place] [address] Performed By: #### 6 30-4, 95216-2 ####[facility] LABCLIA [id number] [place] [address] [place] Hyaline casts (Urine sed) [#/Area] 1-3 /LPF Abnormal 0 /LPF [facility] Comment on above: Order Comment: Speci men Type: URINE SPECIMENOrdering Facility: [facility] Address: [address] [place] [address] Performed By: #### 6 30-4, 47847-0 ####[facility]CLIA [id number] [place] [address] [place] Ketones Ql (U) Negative Normal Negative [facility] Comment on above: Order Comment: Speci men Type: URINE SPECIMENOrdering Facility: [facility] Address: [address] [place] [address] Performed By: #### 6 30-4, 49394-8 ####[facility] LABCLIA [id number] [place] [address] [place] Leukocyte esterase Test strip Ql (U) 2+ Abnormal Negative [facility] Comment on above: Order Comment: Speci men Type: URINE SPECIMENOrdering Facility: [facility] Address: [address] [place] [address] Performed By: #### 6 30-4, 08546-1 ####[facility] LABCLIA [id number] [place] [address] [place] Nitrite Ql (U) Negative Normal Negative [facility] Comment on above: Order Comment: Speci men Type: URINE SPECIMENOrdering Facility: [facility] Address: [address] [place] [address] Performed By: #### 6 30-4, 72917-6 ####[facility] LABCLIA [id number] [place] [address] [place] pH (U) 5.5 [pH] Normal <8.5 [facility] Comment on above: Order Comment: Speci men Type: URINE SPECIMENOrdering Facility: [facility] Address: [address] [place] [address] Performed By: #### 6 30-4, 21126-1 ####[facility] LABIA [id number] [place] [address] [place] Protein (U) [Mass/Vol] Negative Normal Negative [facility] Comment on above: Order Comment: Speci men Type: URINE SPECIMENOrdering Facility: [facility] Address: [address] [place] [address] Performed By: #### 6 30-4, 16034-7 ####[facility] LABIA [id number] [place] [address] [place] RBC LM.HPF (Urine sed) [#/Area] 0-2 /HPF Normal 0-2 /HPF [facility] Comment on above: Order Comment: Speci men Type: URINE SPECIMENOrdering Facility: [facility] Address: [address] [place] [address] Performed By: #### 6 30-4, 84239-2 ####[facility] LABIA [id number] [place] [address] [place] Specific gravity (U) [Rel density] 1.027 Normal 1.005-1.030 [facility] Comment on above: Order Comment: Speci men Type: URINE SPECIMENOrdering Facility: [facility] Address: [address] [place] [address] Performed By: #### 6 30-4, 30895-3 ####[facility] LABIA [id number] [place] [address] [place] Urobilinogen Ql (U) 0.2 EU/dL Normal 0.2-1.0 EU/dL [facility] Comment on above: Order Comment: Speci men Type: URINE SPECIMENOrdering Facility: [facility] Address: [address] [place] [address] Performed By: #### 6 30-4, 82658-3 ####[facility] LABCLIA [id number] [address] [place] WBC LM.HPF (Urine sed) [#/Area] /[HPF] Abnormal 0-5 /HPF [facility] Comment on above: Order Comment: Speci men Type: URINE SPECIMENOrdering Facility: [facility] Address: [address] [place] [address] Performed By: #### 6 30-4, 96464-7 ####[facility] LABCLIA [id number] [address] [place] CYTOLOGY NON-GYNOrdered By: Corina Olmos on 04-05-2024 Case Report Medical Cytology Report Case: [id number] Authorizing Provider: Justin Christopher MD Collected: 04/03/2024 01:55 PM Ordering Location: General Surgery Received: 04/03/2024 04:53 PM Pathologist: Corina Olmos MD Specimen: Thyroid, Left, Lobe, left thyroid [facility] Work Phone: Clinical History p7bpgVRbFRIpsXJcKMpe M mmcxoZsFLTqpNIaG0Dbes znENklGH4pLU5ctCziiGQ hhMPoGCMgCgRfd7yim418 pZHcm5fdOXDFprlmkSq4y KcnD63ao0C8QozxB81utC OlGWH6YOHgIAPpyRNbJYI vRFA0BAPjcNEtS1ooVBQj VE4jmdzuRFnwVZqxBAIux SX9PQZdyHCeB3RhXEIxBZ xcHNItapp2VjWkZf7kyIA yeTcyMFxwYXJkXHBsYWlu ACEbJfBenTt8jg9qSMJve 4R2dOSmrOWmCMFhblEBQv cntJDfgaQlUBp6QIJkeHT yfQ== [facility] Work Phone: Diagnosis Comment t9codSVtRANiuBLtXAqh M nonzxXcSBGdbILoK1Lhez iuCGeqUN8yNU2caQchhGJ zbVKhGTPmCdChr0pml084 vIGbf2keYOHLnjzjhBb6n QkqK14on1R0SquoH91cqA AhHTJ4PHOmABKryNGzVSK xJRV8OAWhnDUxB0ccAITi SN5jmginCFswGQsmXPSaz DF1OQByyTClZ8ZdSHKwUR pfAYLsmbc5HnHzYc7ylBE yeTcyMFxwYXJkXHBsYWlu XGZzMjAgRmVhdHVyZXMgc 2GcX9MuyLt7UKEmZsHihK YvuhpfQVg8cPKkl5F9bTb jIHRoeXJvaWRpdGlzIGlz IHByZXNlbnQuICBQbGVhc 3TxN20ozbLcETWjWPyhzL wyG5eryxmmZXthDP0lSKf bGZnytjkePfrtTKxlL9Tz XHBhcn0= [facility] Work Phone: FINAL DIAGNOSIS n9odwQCcCMUltWRfIVnm M cimwhAvJHOwsMKmJ6Mbud osWApiUE4uWM3pzEoleDM fwXKzFOQuJeYqd6juh441 tYAvw2zqFJGBowvftXj0w HpqQ03ec6D0YfqdM2yaAO QwXGdyZWVuMFxibHVlMDt ccmVkMFxncmVlbjBcYmx1 YFR5EXh9DBIqfPObchRxD vOxBKZsfLRqiEE7JGAoYW 3rqjgzVoHhCM5ajdkvMtF dUE4ftyp2LpTuKB3ijpmg YbNmBTfvURIazyn1RxCyF f9eoFNvmZseJQzuU5yquO 5qCrR8WIedV8zeeT5oPAu 6LAfiIOCzcGK6tyzzQJpb ZSYxnaO2opztWIevKETwc UQ4dnefFKxlYOGnVlT4ho cyMFxwYXJkXHBsYWluXGJ cZnMyMlxjZjEgQSAtIFRo eXJvaWQsIExlZnQsIExvY mUsIEZOQSAgXHBhciAgIC AgICAgICAgQmVuaWduLjs fIQZfSAAkr51hJC34VXNi eyQbCQNyUTJyKJZvSTf3S NMttJspxd2yCG2hXN7oB4 NwVl5nxSlwpSUuPWYemTc 9MNNuu0q7mAPrB0EfaYXe aQ6zdH7ypYAayrRpecMrZ FF1klGbjhMgJ33naD5yPQ xwYXIgICAgICBccGFyXGN lDXz8JJXaXURxBAJpVNIy clxwYXJcYjAgVGhlIGZvb Wyvt5xnLoOtGWpzCQCol4 BcmqX9NMMmRSRma72zoHR 5JUFny2l7mSC4pJqyMBZw i5J8MFWxytVXMVa6YKXjE 1UzhAIIiP3wjharYDyyp7 vviIMVeVrsLDa0FHBlcUL hIMXxI5BqDTRdazelFRjp ZjBccGFyfQ== [facility] Work Phone: Gross Description h2lucRExEFOzaILAYDJ0 M NWmAY1zuOiwqVr9vGxqIA QgudX6hULbNAhyq6qqUVG 0l3wtqtONCimiKRUqDE8a PGpaZAHwTO4hZiRuDFIaO mYxXHBhcGVydzEyMjQwXH MttALopFE8WRZnIL1lnyb nKYviKAkxSGAnizN2HGUu dVHoI3LxNHIzBR9lpvkxJ CR6YVECWpxbGi5wkXSinJ tcZjFcZmNoYXJzZXQwXGZ vy4psbmYIdktwaGk6gE4O MGFdJ8NtFZ7Wc7hkSOMco CSoFJC6SNxve9yaQIggBH I5VSBqNNOfPFKqWV4KGeS iLDm4EUZ1VrKcYrV4SZe4 VNMUEORmDKEeGQF1IJkdE Cl7LSliMFrzmMMjUZHzAH DtCRYdCTlsqtV5h3ynNQD lmMEfHOI5IWmnm6vyKZor PAC8FIHuQqChBRMjKT2RX jTbCQm2GTB2HrNwHrR7AB u5QJVHGlHxIvMnFyNpHEK 7EwsdBQv5JTb4KDuOVoRt WAemFIebDMVzKME9EDV2A SBcXHQgMiBcXHNzIDMgXF nfdKVrHU3ftKetBCImUQ9 OKLNqQWorKXNtTeDmQH8q IOy1vu4jFGdqEGSfvMxuU V4mZPuvcLYmuTlxQFBxCN pccGFyZCANClxwbGFpblx sdHJjaFxmczIyXGVwaWNO KSY6RD8eDKDBHslueKUeZ XIgDQozMCBjYyBccHJvdG LusTttZedjaFO7IHqvPgi xnR7inFPCHCZFWuoTWxia dfSgTV8MNCTVEwXUSN47T UDlAiA5jPS0GJ43FGVfHM RymTLhGLvuH992C0hyCEF 2LFWpHPguq7urIJNmWRjv q5VlUWcXTOGWVB7ABP1ys JN1FLgVMDAGWPcwAYG0CM W9JAqqoHraOlkclwQjeZL iFmYKxX7lyQamdQ4bxLFg J7fdOyXvReYaILOss4YuP 8N0UKUfDNibj2agRFJyRP fjh7SuUBaMMUZFLC5ZSM6 fpRE4DJlDBBZDQ6uNsGV9 YMjbXRgkzNS3i8bdbGCfw 2v5PCcwFJJ8cRVggck0QM AmZMbfx8kqWOVnQTcba9P fSQvYNTLCGU1BLB2dlOV7 JBzMPPVVEXnhSUT7KFB9F nwyfXtcZmxkcnNsdCBcJz OLfC0pkNhumG5zvJFpG5k xYrGjSdUeOVBxj0SlZ7W1 UNMgRVsrv5fhPCKuLEvgo 5EtUWhATDCCVV7PIS9bkR P2BPuNLFIUI1cDdKX6TFi wIUsxdNI4n8rotXQib3w5 EHlvPJM7aQG6oC7XjGC4Y SLkECnuv7rbNIBbYAjrv4 EbBMzZMKCLFE0GTS7mgHT 2GTkYQSFPDNjkFXF7JAk7 G4wfjBjnKwauooVqsLAaQ hQIjF2gxQpleZ3cvSVtW6 kzInDuRvEzIWJxe1OrP1G 8OXMsPKfyb3gdGPExBYyf k2QiOOhSNSWNCM3VQA2cr MG5PRqHNYKCK4tCdUM5SS uxKOl4iPY6a5cjpYSfz8h 7VWmxLQJ2zKlinHxmjEPn nCebiSEze9fkcMViLLbrM ybkxLTdwxX6NRpAWBGBVH oMHgGuHK1qDIlWR2KSWwU 2PHOdClMbgQF7ZW42UXAa SYTpfCJjOBlvK251NNBkO WnhFRy5uiSvBVFkKvNhMy GcOJNpn9QvL2F0BENwUBv wh4tvURHnXLlqt2BwCHdS JCDJXY6WIQ7hpGE9WMyST VXUG5xOySD1CAX5A6p7hC T0c2jkoKKwf2m1UBgvUXT 2bTExuI0HefBsMBQjBWPU CWdoCCRtx7Pzy3rosBLuL LyqXuaabNFvctL9ETyPQF FSKNdWDsCfYO8jAGpWK3B FZhO5XBR3GEi4iTC2PO48 HFTeSWPtjIEeORscK458V TUiUXmqTFl7lxMyQLViBh IgIHByZXBhcmVkIFxwcm9 8QII3y4mriUZuCOirSerw uBSefiA8FZbVSQVJJLxGZ uLiJE1eQCxGP2YDPFmDSn awZQB5IBU4Rin6fGsaXyp mryHkjIZhJjQDaU2guoEz UBPan4AmM0Xmf7dfkEUtD CivLtichIMxfyX4ZFaYKZ CHCAjFOtEkXY6nRAgEWRH VRFcIZta8uAyvRjrubqKz aGHnWxEPhQ90w8fvzMYaJ VqhAbnwbKEqsmB6EEnUFJ ZKIJlYPbCoYQ3eEJoTKKF PUrX6U324XXIdRCKunDEt YThwT383YGGaBZdqGNf9i mKaUGEkq5VaC7DxOfHrIi Abe47hJLWfIlxfIptnaNA 7UByyRduczB2qqIYZWCWX UcuSJlkgeiAgJI8RKHJPX E4IoKW4EEkkIUg0fVF9d4 rtzTTco5p3IOtkHPX5nYt wbGFpblxsdHJjaFxmczIy XHBhciANClxwYXIgDQpBZ maudEYaafNjQYb5EKFqjC MnUV9PIVGcIxLmGPTyD1n aHIRdUU6HXQBsU11AAqSL SMZWX57YRUJSBTWNC3BKT 8hXEUG3OWniVOjbGSOwHO VaZvA7aGJ4UBIiRVUxFgD 1dKF7ZG5rUVH9AsA0DW7j CxJ0ZRN9Y0i2CZQnKGQqZ WQ8rCT3OEu7BrVMHMJKXC aEC3IiXTAKBUVJHAMaBR7 PGWhFQPGOTXWJP62LSOVI VHOUK3KJC2bRLWbyogrZY CgAC0TZZU7EZGWOZSCTZE 3KQrAvRJhUO2BTX2nYIEG yIBIGLZYPMIFxMcHPYG5a MUf2D9mUGurWFTvqTUO4E QOsnBExc4QSOT8OElG2IU khTHw3U3g9LIQWGRRGKNx 4IQPyErS0YN48XSeEAHOP RSTCVCR1UWBuWrYpPA11G JzCAPWMTSLBK5zNSjZ5XY L9S4c9Xeu2Y61MTGHNUGH SN7HBMoPPOqI4MBviJVv3 XYTJROVYXN8HKPSUC61OL EUMQKTUZ2NTPIRMBpLTJA CIA50WKALRSSAAO0TCM7y HMMAJTtGXWCQKC87CEGSI TRYOZ5GRBLOTLYHDJdGBX nAUDI8KOXGRFSOTIA6MRV fINsElHLSZF3MXVoOMC4c zRWDYDTXZMAPzTF9WUHmx fuZaGKFeX61id0GIr1Nrj 3cvxRwcg8YooOHrJG91XF VyiJRcHUK6RQ9tpXaiAXR nONvknRAbPUJINbn9ETAW Cn0= [facility] Work Phone: Performing Lab l7lznAXeQVIbz8xhNWLo b GFuZzEwMzNcZnRuYmpcdW MxIHtccnRmMVxhbnNpXGR oTimsjodgDHZwBFY0otGc BPYuWFI5ZBU9MdFlk1P0T DPtIiUbRCHpOI4wmZxsED HuFA1vHTKqE2uajF5jbui 6BdTgMSWrKwC7IEDdfrN3 Rnt5AUDnRUyqc6bdk9TiN KRtRAv1jYqdPgMpJRJpg3 lzcyBcZmNoYXJzZXQwIEF ezBVtT822e2ebt8xowzEg qDW5RFRcSIV1CPkbwkOaq yW8VCbwaBTqRiL8RDzofc WrMZiuvxRlxqYaIqu0AMF sS203ZYR1tMogu4fhDLE8 XJHeBNJrWvOcBk5izYNnW 902EQYxWSPGJVKonEw4SE ZsihLtrzCcsAAMj101D52 9g5owBFXgjrOfiQvNxmkc c1hdD796SPVgdXPfhuLfJ eUhBPEhsFUkxVJ6BGCcFD 1hcmdsMTgwMFxtYXJncjE 9XTIkxBGbC0UmUEKrBH1d tktyTHE7JZyhQSMxIPZ4K aPqYOZnc5Wqzje4XzKqah 1mnj40VIQ5z7YoxJvuDSF 7GIH2HrOpSc0myDJaIPNl BJ5mBwNtrONsKVXzem60r XgtMYxepzVjxC2yEbOjOV FvwFDfULItVZ2jwAArFYV wqO8kujpwDBPvIiHemasy OPHdhTtbbfArEr3uvVyoJ VR2QBffF3aueX6sItS5FF liG5iztL9kRHx5ONfgkST 1JTPmtF6tMP8vaggwj0td AWtmMTjtRQYlxdW6zfX3X FQllOOqX1KzwU1tXGRaUY 8ogjitk7qoCDI5JWuyDSM oRMT3AdPkGMWnc5Gtiwy1 GwBmx4WztYQsXMqmU10xg 555DUPvnnAeV3disKKooe jetDQkvdsfXRnubjF9PDO sXHBsYWluXGYxXGZzMjJc bGFuZzEwMzNcaGljaFxmM LlqTxJoDYJaSNhtZ6poJi FcZnMyMiBUZWNobmljYWw kA23enK4zZE13AFJejVMt eGZuzD0ijU0akJO2QKItz wHvfrecZsCoPMEfa5KlCC AjFHNkM5gbpdKtWO7uETV eoO9oJjwxWOEtORNPnHAg lIViUGRcMZFCaIA5YHdrq qBbR6pzSCTsVKJqZCYEIS nPAeEiOnGhGzC5QJw7WLV xoq25u6vieYCeLGKudYBg BfAfUWGoLMLkm0deVLHem GFuZzEwMzNcZnRuYmpcdW ZxHOHqRpCdg4ixq009jMS na4rxVGPnEoS5iWOtWDQi aAOwC615IDPbAZalx9gse 9QoFNKezNAic1L3NRUQki lxtEr9uQykS92fi3N7Nmo oQ1lkHLDdWGXcM5ZbEE1t ATVfWnh1SPL3FLN0XDHqO KKqD2VmVV0pWIHbyKDkQB v4l4qxuScbBVIhBVX4a5m uPYlediNlOB5frq5trBw2 p1ewsoSzHHKuFKYhnCDRG XPqN7FkdKhhSw0cdMf2nH peBmuxNTW5Fvb6TC0pfq4 3rts2fZeyXZWqheawJoI6 EZpjPDWsxgynLGh2CJmiM ELcgZY5PPEdsOKeO5VgYM ibHU4dixl2HZN4JPcvZZT kHqF6YDHlhDPzEOQkxJlz VSqeo077CAK5TgBaOO5fA 2Ttu6G0jJ9kuUTgKUSprG ImIoAxLCMgfq2nxOWaSFw vl8YmBNZ6jaI3pHHsiXYy FLDaGM65Rbizp5AgOwkcy 8GbF46syUL2PPtil0mwOL 9wKzU6efBaZRgka6dlrO2 yPmB9DHuoLB9eRA3tTLYr oF3ckrohABYpDfCmndfyN LCxpCektbZtQo2tzDfkPB T8KIyqR7oceM6vNfI2MWn rR4jkwJ9aMMw1TIauqAM9 PISbmG5qUP8xhynbd8gyW FlgFSfrPRGhjzO5iaYmQS SzaZVxA1ZjaC2pVMUpSW2 yxbimh3oaVGS6NHznPCAg TVU0PrPdJOVlx3Xosmj7M fUqr9IttMVaEYxoL35jy8 94WFQlgyUeP3lkeUCfzln yyCRzcvjsFOinnzZ2WQUm XHBsYWluXGYxXGZzMjBcb GFuZzEwMzNcaGljaFxmMV onQzXbOWRpUQfqP4isVmE zUjJgGZUQvYRutq6pzAbj XIxvqEEalGBohTC2vD6uM CQirzNvwd2oJQMubEPFaY Q3TRnsqlFhJ7uhzdkySWM 9HELmCAD9T4ovUMUGjjQe GFIpPAXcuAMyZDGDETP1Z QR2GRMkIPPKBDBpGUV2HH L1SBQxKIGllQZoIMRrfuc wYXJkXHBsYWluXGYwXGZz KiIhcSbobM6fAtBeUqPkS PdpUD0kBMWzD0mugHEjOY JlXBGqC8qhGzFlgH2ucQc mMVxjZjJcZnMyMFxsdHJj gPRSMFQqbaU9w9A1DQwop GFpblxmMVxmczIwXGxhbm dwTFYlHBwjY8icXxLkQGL ftNbsVTjbx3YyNKZhIXPw FfBbWYffSOM9l5Y7FCcvo TFaguIWEhLLDK7znMNxpb yaCT7HToxzhRXymrntYFj mczIyXGxhbmcxMDMzXGhp O4jlYnUuIUSxrGmuUEpvg 2NoXGYxXGZzMjJccGFyfX 0= [facility] Work Phone: [facility] Work Phone: [email or web address] 04-03-2024 CNOV Office Visit (ANAS ) BRITNEY CANADA ([id number]) 1945 F Date Time Provider Department 04/03/24 1:30 PM JUSTIN CHRISTOPHER During your visit today, we recorded the following information about you: Melinda Martinez, ZOEY 04/03/2024 1:34 PM Signed UNIVERSAL PROTOCOL / SAFETY CHECKLIST Procedure to be Performed: Ultrasound Guided Fine Needle Aspiration Thyroid left Sign In: A Moment of CARE was completed. Personnel directly involved with the procedure wore the appropriate PPE (Personal Protective Equipment). No special equipment needed. Patient/Surrogate Stated/Verified: PATIENT VERIFIED(optional for EMERGENT procedures): Patient name, Date of , Relevant allergies, and The intended procedure Time Out Communication: Intended patient and procedure match the source documents. Consent documented and matches the intended procedure. Relevant labs, photos, and/or imaging studies have been reviewed. Correct side/site marked and visible. Medications required for procedure verified. No fire risk assessment and interventions applicable. No implant(s) inserted. Sign Out: SIGN OUT (optional for EMERGENT procedures): All specimen containers correctly labeled. All instruments, equipment, possible retained foreign bodies accounted for. Post-procedure follow-up management communicated and Plan of Care Visit completed when applicable. ZOEY Aquino Billie, RN 04/03/2024 1:36 PM Signed The following instructions are important for you related to your office visit today with the [facility] General Surgeons. Instructions After THYROID FINE NEEDLE ASPIRATION Please do not take aspirin or other blood thinners for the next few days. If you have bleeding from the needle site, hold pressure with a clean gauze. If the bleeding continues, contact our office immediately. I recommend taking Advil or Tylenol for the discomfort. An ice pack may improve your discomfort to the area. Contact our office immediately if you have any questions or concerns @ [phone]. Please make an appointment to follow up in one week with your physician and [facility] If you note any additional difficulties, questions, or concerns, you should contact our office immediately @ [phone] and ask to be transferred to the General Surgery department. Justin Christopher MD 04/10/2024 12:38 PM Signed Preoperative diagnosis: Left thyroid nodule Postoperative diagnosis: The same Procedure: Ultrasound-guided fine-needle aspiration of dominant left thyroid nodule Surgical Candi Procedure: Ultrasound of the left thyroid revealed the 2.2 cm nodule. I prepped the skin with alcohol. I injected 1% lidocaine plain. Under ultrasound guidance 4 passes with a 22-gauge needle were performed. Plated these on glass slides and sent an Afirma test off as well. Sterile dressings were applied and the patient tolerated the procedure well. Allergies As of Date: 04/03/2024 Noted Allergy Reaction DARVON (PROPOXYPHENE HCL) 10/11/2008 8 - GI Upset PENICILLINS 10/11/2008 2 - Rash Date Reviewed: 04/03/2024 Reviewed by: Melinda Martinez RN - Fully Assessed Reason for Visit: Procedure [88] Cmt: Left thyroid Primary Visit Diagnosis:Thyroid nodule [E04.1] Order(s):US THYROID BIOPSY LEFT (POC) SURG USE ONLY [1482811] Order #: [id number]. #:[id number]: 1 CYTOLOGY NON-COUNT ROOM CLERK [[id number]] Order #: [id number]. #:[id number] Prescriptions as of 04/10/2024 - levothyroxine (LEVOXYL) 50 mcg tablet Take 1 tablet by mouth once daily. Take on empty stomach. For Thyroid - losartan (COZAAR) 50 mg tablet Take 1 tablet by mouth once daily. - metFORMIN ER (GLUCOPHAGE XR) 500 mg 24 hr tablet Take 2 tablets by mouth two times a day with meals. - empagliflozin (JARDIANCE) 25 mg tablet Take 1 tablet by mouth once daily. Take 1 tablet once daily in the morning - clopidogrel (PLAVIX) 75 mg tablet Take 1 tablet by mouth once daily. Take 75 mg by mouth once daily. - atorvastatin (LIPITOR) 80 mg tablet TAKE 1 TABLET BY MOUTH ONCE DAILY AT BEDTIME FOR CHOLESTEROL - terconazole vaginal cream (TERAZOL) 0.8 % vaginal cream Use 1 Applicator vaginally daily at bedtime. - cyanocobalamin 1,000 mcg/mL Inject 1 mL intramuscularly once every month. - blood sugar diagnostic (BLOOD GLUCOSE TEST) test strip Test blood sugar(s) 2 times daily. Dx: Type 2 DM - Uncontrolled E11.65 Insulin: No - Lancets lancets Test blood sugar(s) two times times daily. Dx: Other DM Code E11.65 Insulin: No - metoprolol tartrate, short acting, (LOPRESSOR) 25 mg tablet Take 25 mg by mouth twice daily. - apixaban (ELIQUIS) 5 mg tab(s) Take by mouth twice daily. - fluticasone (FLONASE) 50 mcg/actuation nasal spray Use 2 Sprays in each nostril once daily. Facility-Administered Medications as of (more content not included)... [facility] CYTOLOGY NON-GYNon 5 CASE REPORT Normal [facility] Comment on above: Order Comment: Speci men Type: SPECIMEN OBTAINED BY ASPIRATIONOrdering Facility: [facility] Address: [address] [place] [address] Result Comment: [facility] Cytology Report Case: [id number] Authorizing Provider: Justin Christopher MD Collected: 04/03/2024 01:55 PM Ordering Location: General Surgery Received: 04/03/2024 04:53 PM Pathologist: Corina Olmos MD Specimen: Thyroid, Left, Lobe, left thyroid Performed By: #### C YTONON ####[facility] LABCLIA [id number] [address] [place] CLINICAL HISTORY thyroid nodule Normal [facility] Comment on above: Order Comment: Speci men Type: SPECIMEN OBTAINED BY ASPIRATIONOrdering Facility: [facility] Address: [address] [place] [address] Result Comment: Afirma received Performed By: #### C YTONON ####[facility] LABCLIA [id number] [address] [facility] DIAGNOSIS COMMENT Features suggestive of chronic lymphocytic thyroiditis is present. Please correlate with clinical and imaging findings. [facility] Comment on above: Order Comment: Speci men Type: SPECIMEN OBTAINED BY ASPIRATIONOrdering Facility: [facility] Address: [address] [place] [address] Performed By: #### C YTONON ####[facility] LABIA [id number] [address] FINAL DIAGNOSIS Normal [facility] Comment on above: Order Comment: Speci men Type: SPECIMEN OBTAINED BY ASPIRATIONOrdering Facility: [facility] Address: [address] [place] [address] Result Comment: A - Thyroid, Left, Lobe, FNA Benign.; See comment Mixed micro and macrofollicles admixed with scant lymphocytes and abundant colloid The following cell blocks were associated with this case: A1 Cell Block, Alcohol Fixed Performed By: #### C YTONON ####[facility] LABCLIA [id number] [address] OF [facility] FINAL PERFORMING LAB Normal [facility] Comment on above: Order Comment: Speci men Type: SPECIMEN OBTAINED BY ASPIRATIONOrdering Facility: [facility] Address: [address] [place] [address] Result Comment: Tech nical component, information security specialist screening performed at [facility], [address] [place] [address] CLIA# [id number] Diagnostic interpretation performed at [facility], [address] [place] [address] CLIA# [id number] Resin Maker: Jasvir Valdes M.D. Performed By: #### C YTONON ####[facility] LABCLIA [id number] [address] [place] GROSS DESCRIPTION Normal [facility] Comment on above: Order Comment: Speci men Type: SPECIMEN OBTAINED BY ASPIRATIONOrdering Facility: [facility] Address: [address] [place] [address] Result Comment: A. T hyroid, Left, Lobe 30 cc clear pink CytoLyt with particles. ThinPrep and Cell Block prepared and 8 smears. Afirma received Performed By: #### C YTONON ####[facility] LABCLIA [id number] [place] [address] [place] US THYROID BIOPSY LEFT (POC) SURG USE ONLYon 04-03-2024 [facility] CNNURSEon 03-20-2024 [facility] Nurse Visit (ROMELIAPWS) BRITNEY CANADA ([id number]) 1945 F Date Time Provider Department 03/20/24 11:45 AM MS NURSE ROMELIAPWS During your visit today, we recorded the following information about you: Agueda Sabillon LPN 03/20/2024 11:31 AM Signed Patient presents for B-12 injection. Denies any problems at this time. Patient instructed on any SE of medication, verbalized understanding and agreed to proceed with treatment. Tolerated injection well. Agueda Sabillon LPN Allergies As of Date: 03/20/2024 Noted Allergy Reaction DARVON (PROPOXYPHENE HCL) 10/11/2008 8 - GI Upset PENICILLINS 10/11/2008 2 - Rash Date Reviewed: 03/15/2024 Reviewed by: Chantale Alves MA - Fully Assessed Reason for Visit: B-12 Injection [247] Primary Visit Diagnosis:Vitamin B 12 deficiency [E53.8] Prescriptions as of 03/20/2024 - levothyroxine (LEVOXYL) 50 mcg tablet Take 1 tablet by mouth once daily. Take on empty stomach. For Thyroid - losartan (COZAAR) 50 mg tablet Take 1 tablet by mouth once daily. - metFORMIN ER (GLUCOPHAGE XR) 500 mg 24 hr tablet Take 2 tablets by mouth two times a day with meals. - empagliflozin (JARDIANCE) 25 mg tablet Take 1 tablet by mouth once daily. Take 1 tablet once daily in the morning - clopidogrel (PLAVIX) 75 mg tablet Take 1 tablet by mouth once daily. Take 75 mg by mouth once daily. - atorvastatin (LIPITOR) 80 mg tablet TAKE 1 TABLET BY MOUTH ONCE DAILY AT BEDTIME FOR CHOLESTEROL - terconazole vaginal cream (TERAZOL) 0.8 % vaginal cream Use 1 Applicator vaginally daily at bedtime. - cyanocobalamin 1,000 mcg/mL Inject 1 mL intramuscularly once every month. - blood sugar diagnostic (BLOOD GLUCOSE TEST) test strip Test blood sugar(s) 2 times daily. Dx: Type 2 DM - Uncontrolled E11.65 Insulin: No - Lancets lancets Test blood sugar(s) two times times daily. Dx: Other DM Code E11.65 Insulin: No - metoprolol tartrate, short acting, (LOPRESSOR) 25 mg tablet Take 25 mg by mouth twice daily. - apixaban (ELIQUIS) 5 mg tab(s) Take by mouth twice daily. - fluticasone (FLONASE) 50 mcg/actuation nasal spray Use 2 Sprays in each nostril once daily. Facility-Administered Medications as of 03/20/2024 - cyanocobalamin 1,000 mcg injection Problem List As Of Date 03/20/2024 Noted Resolved Type II or unspecified type diabetes mellitus w*09/25/2014 02/19/2015 Other and unspecified hyperlipidemia [E78.5] 09/25/2014 06/21/2015 Essential hypertension [I10] 09/25/2014 BMI 38.0-38.9,adult [Z68.38] 09/25/2014 11/30/2014 Other allergic rhinitis [J30.89] 09/25/2014 BMI 37.0-37.9, adult [Z68.37] 11/30/2014 Diabetes mellitus type 2 with complications (HC*02/19/2015 Uncontrolled type 2 diabetes with neuropathy (H*04/23/2015 Mixed hyperlipidemia [E78.2] 12/24/2015 Occipital stroke (HCC) [I63.9] 02/14/2020 Vision loss [H54.7] 02/14/2020 NSTEMI (non-ST elevated myocardial infarction) *02/14/2020 Paroxysmal A-fib (HCC) [I48.0] 05/15/2020 Vitamin B 12 deficiency [E53.8] 06/12/2020 Encounter Status:Closed by AGUEDA SABILLON on 03/20/24 [facility] CNOVon 03-20-2024 CNOV Office Visit (NANDO ) BRITNEY CANADA ([id number]) 1945 F Date Time Provider Department 03/20/24 1:15 PM JUTSIN CHRISTOPHER During your visit today, we recorded the following information about you: Temperature Pulse Blood pressure Weight 97.5 degrees 61/minute 113/65 82.1 kg Height 1.588 m Aylin Velazquez LPN 03/21/2024 8:56 AM Signed REVIEW OF SYSTEMS: General: The patient denies fatigue, denies weight loss, denies weight gain, denies feeling hot, and denies feelings of cold. Eyes: The patient NOTES glaucoma, denies eye injury/surgery, wears glasses or contacts. Ear/Nose/Throat: The patient NOTES allergies, denies hayfever, denies ear infections, and denies bloody noses. Cardiovascular: The patient denies chest pain, denies heart disease, NOTES high blood pressure, NOTES high cholesterol, and denies poor circulation. Respiratory: The patient denies tuberculosis, denies pneumonia, denies frequent cough, denies shortness of breath, and denies coughing up blood. Gastrointestinal: The patient denies difficulty swallowing, denies acid reflux, denies ulcers, denies jaundice/hepatitis, denies gallbladder problems, denies vomiting, denies black or tarry stools, denies hemorrhoids, denies bleeding from rectum, denies diverticulitis, denies constipation, denies diarrhea, denies loss of stool control, and denies hernias. Kidney/Bladder: The patient denies kidney stones, denies urine infections, and denies bloody urine. Skin: The patient denies a history of skin cancer, denies bleeding/changing moles, and denies a history of skin rash. Neurologic: The patient denies a history of epilepsy/convulsions, denies headaches, denies head/spinal injuries, and denies stroke/TIA. Psychiatric: The patient denies psychiatric medications, denies depression, and denies voices. Endocrine: The patient NOTES thyroid disorders, NOTES diabetes, and denies hormonal problems. Hematologic: The patient NOTES a history of bruising, NOTES bleeding, and denies anemia. Infections: The patient NOTES a history of measles and mumps, denies rheumatic fever, and denies sexually transmitted diseases. Musculoskeletal: The patient denies back pain/injury, denies back problems, denies sciatica, NOTES knee/foot trouble, NOTES arthritis, or denies gout. Justin Christopher MD 03/21/2024 8:56 AM Signed HISTORY AND PHYSICAL Britney Canada 1945 REFERRING PHYSICIAN: Astrid Muse APRN.CNP CHIEF COMPLAINT: Consult (Thyroid Nodule) HPI: The patient is a 78 year old female with a complaint of a left thyroid nodule. This thyroid nodule was found on Ultrasound by [facility]. The patient denies pain, denies difficulty swallowing, deniesrapid enlargement of the neck, deniesdysphagia, denies a change in the voice, denies hot or cold intolerence. The patient has not a prior history of neck radiation treatment. The patient has thyroid function testing. THS - 1.770. The patient is being seen by me today at the request of Dr. Muse for my opinion and advice regarding Thyroid nodule. PAST MEDICAL HISTORY Diagnosis Date Abnormal mammogram, unspecified Diabetes mellitus without mention of complication High blood pressure High cholesterol Thyroid disease PAST SURGICAL HISTORY Procedure Laterality Date CHOLECYSTECTOMY 1989 RPR UMBILICAL HRNA 5 YRS/> REDUCIBLE STEREOTACTIC CORE BIOPSY 10/18/08 RIGHT BREAST Current Outpatient Medications Medication Sig Dispense Refill levothyroxine (LEVOXYL) 50 mcg tablet Take 1 tablet by mouth once daily. Take on empty stomach. For Thyroid 90 tablet 1 losartan (COZAAR) 50 mg tablet Take 1 tablet by mouth once daily. 90 tablet 3 metFORMIN ER (GLUCOPHAGE XR) 500 mg 24 hr tablet Take 2 tablets by mouth two times a day with meals. 360 tablet 3 empagliflozin (JARDIANCE) 25 mg tablet Take 1 tablet by mouth once daily. Take 1 tablet once daily in the morning 90 tablet 3 clopidogrel (PLAVIX) 75 mg tablet Take 1 tablet by mouth once daily. Take 75 mg by mouth once daily. 90 tablet 3 atorvastatin (LIPITOR) 80 mg tablet TAKE 1 TABLET BY MOUTH ONCE DAILY AT BEDTIME FOR CHOLESTEROL 90 tablet 3 terconazole vaginal cream (TERAZOL) 0.8 % vaginal cream Use 1 Applicator vaginally daily at bedtime. 20 g 0 cyanocobalamin 1,000 mcg/mL Inject 1 mL intramuscularly once every month. 1 mL 12 blood sugar diagnostic (BLOOD GLUCOSE TEST) test strip Test blood sugar(s) 2 times daily. Dx: Type 2 DM - Uncontrolled E11.65 Insulin: No 100 Strip 5 Lancets lancets Test blood sugar(s) two times times daily. Dx: Other DM Code E11.65 Insulin: No 100 Each 11 metoprolol tartrate, short acting, (LOPRESSOR) 25 mg tablet Take 25 mg by mouth twice daily. apixaban (ELIQUIS) 5 mg tab(s) Take by mouth twice daily. fluticasone (FLONASE) 50 mcg/actuation nasal spray Use 2 Sprays in each nostril once daily. 3 Bottle 3 Curre (more content not included)... Normal [facility] CNOVon 03-15-2024 CNOV Office Visit (INTMWS ) BRITNEY CANADA ([id number]) 1945 F Date Time Provider Department 03/15/24 10:20 AM ASTRID MUSE INTFERNANDA During your visit today, we recorded the following information about you: Pulse Respiration Blood pressure Weight 60/minute 16/minute 128/74 82.6 kg Astrid Muse APRN.FINISH CLEANER 03/15/2024 11:10 AM Signed CC: Patient presents with: Recheck: 6 week follow up HPI Britney Canada is a 78 year old female who presents today for follow up. Was seen 6 weeks ago after hospiialization from severe vomiting and UTI. Denies any abdominal pain, difficulty/pain with urinating, fever, chills, dark/foul smelling urine, nausea, or vomiting HTN: Ms. Canada denies headache, chest pain, palpitations, dyspnea, and peripheral edema. Patient denies any side effects of her medication(s) and is compliant with their regimen. She does not check BP's generally. Britney denies regular aerobic exercise. She watches her diet for sodium, low fat and low cholesterol most of the time. Last 3 Encounter BP Readings: Date: BP: 03/15/2024 128/74 02/02/2024 128/72 10/27/2023 124/68 DIABETES MELLITUS: Ms. Canada denies excessive thirst or increased frequency of urination, chest pain or dyspnea , numbness, tingling or pain in extremities, new or unusual visual symptoms, low sugar/hypoglycemic reactions, weight loss/gain, lightheadedness/dizzi ness, and bowel changes/loose stools. Follows a diabetic diet most of the time. She is compliant with medication(s) and is tolerating med(s) without any side effects. She reports checking her glucose on a once a day schedule with sugars in the fasting 110s range. Patient's last HgA1C was Hemoglobin A1C (%) Date Value 10/26/2023 7.7 04/27/2023 7.7 03/25/2021 7.9 12/06/2020 8.3 Hemoglobin A1C (POCT) (%) Date Value 09/18/2022 9.0 11/21/2021 8.0 ) REVIEW OF SYSTEMS See HPI PAST MEDICAL HISTORY Diagnosis Date Abnormal mammogram, unspecified Diabetes mellitus without mention of complication PAST SURGICAL HISTORY Procedure Laterality Date CHOLECYSTECTOMY 1989 RPR UMBILICAL HRNA 5 YRS/> REDUCIBLE STEREOTACTIC CORE BIOPSY 10/18/08 RIGHT BREAST ALLERGIES Darvon [Propoxyphene Hcl] and Penicillins MEDICATIONS levothyroxine (LEVOXYL) 50 mcg tabletTake 1 tablet by mouth once daily. Take on empty stomach. For ThyroidDisp: 90 tabletRfl: 1 losartan (COZAAR) 50 mg tabletTake 1 tablet by mouth once daily.Disp: 90 tabletRfl: 3 metFORMIN ER (GLUCOPHAGE XR) 500 mg 24 hr tabletTake 2 tablets by mouth two times a day with meals.Disp: 360 tabletRfl: 3 empagliflozin (JARDIANCE) 25 mg tabletTake 1 tablet by mouth once daily. Take 1 tablet once daily in the morningDisp: 90 tabletRfl: 3 clopidogrel (PLAVIX) 75 mg tabletTake 1 tablet by mouth once daily. Take 75 mg by mouth once daily.Disp: 90 tabletRfl: 3 atorvastatin (LIPITOR) 80 mg tabletTAKE 1 TABLET BY MOUTH ONCE DAILY AT BEDTIME FOR CHOLESTEROLDisp: 90 tabletRfl: 3 terconazole vaginal cream (TERAZOL) 0.8 % vaginal creamUse 1 Applicator vaginally daily at bedtime.Disp: 20 gRfl: 0 cyanocobalamin 1,000 mcg/mLInject 1 mL intramuscularly once every month.Disp: 1 mLRfl: 12 blood sugar diagnostic (BLOOD GLUCOSE TEST) test stripTest blood sugar(s) 2 times daily. Dx: Type 2 DM - Uncontrolled E11.65 Insulin: NoDisp: 100 StripRfl: 5 Lancets lancetsTest blood sugar(s) two times times daily. Dx: Other DM Code E11.65 Insulin: NoDisp: 100 EachRfl: 11 metoprolol tartrate, short acting, (LOPRESSOR) 25 mg tabletTake 25 mg by mouth twice daily.Disp: Rfl: apixaban (ELIQUIS) 5 mg tab(s)Take by mouth twice daily.Disp: Rfl: fluticasone (FLONASE) 50 mcg/actuation nasal sprayUse 2 Sprays in each nostril once daily.Disp: 3 BottleRfl: 3 FAMILY HISTORY Problem Relation Age of Onset Prostate Cancer Father Breast Cancer Mother 40 Coronary Artery Disease Mother pace maker Coronary Artery Disease Father triple bypass Social History Tobacco Use Smoking status: Never Smokeless tobacco: Never Substance Use Topics Alcohol use: Yes Comment: rarely Drug use: No PHYSICAL EXAM BP 128/74 Pulse 60 Resp 16 Wt 82.6 kg (182 lb) SpO2 95% BMI 33.29 kg/m? General Appearance: well appearing, in no acute distress, alert Eyes: conjunctiva pink and moist, no icterus, sclera white, non-injected Lungs: Lungs clear to auscultation. No wheezing, rhonchi, rales. Heart: RRR without murmur, gallop, or rubs. No ectopy Health maintenance reviewed with patient: Depression Screening Never done Anxiety Screening Never done Urine Albumin:Creatinine Ratio due on 11/01/2020 Diabetic Foot Exam due on 11/21/2022 Advance Directive Discussion due on 03/08/2024 RSV Vaccine(1 - 1-dose 75+ series) due on 10/26/2024 LDL Cholesterol due on 04/27/2024 HbA1C due on 07/19/2024 Dilated Retinal Exam due on 12/01/2024 Annual PCP T (more content not included)... [facility] Neurology Visit Reporton Neurology Visit Report [facility] [address] [facility], [address] [place] [address] OFFICE VISIT Date of Service: 03/14/24 MR#: [id number] Acct: [id number] Name: BRITNEY CANADA Rep #: [id number] : 1945 Provider: Dr. Fabiano coreas MD Age/Sex: 78/F Location: [facility] Status: Signed HPI HPI Chief Complaint: Details: Interim History: Britney returns for follow-up visit. She has a history of hypercholesterolemia, hypertension and diabetes mellitus and ischemic stroke. On 02/06/2020, she experienced acute onset visual impairment that affected all visual pillai and which she described as zain out of her visual pillai. She was hospitalized for this and was found to have an acute right occipital lobe cortical infarct. In addition, left frontal, right parietal and right temporal subcortical punctate acute infarcts were also noted. During her evaluation she was found to have elevated troponins without acute EKG changes and normal left ventricular ejection fraction and normal atria. Her EKG revealed sinus rhythm. A head and neck CTA did not reveal hemodynamically significant arterial narrowing. She was started on clopidogrel 75 mg daily and aspirin 81 mg daily; after the finding of paroxysmal atrial flutter on a 30-day cardiac event monitor in March 2020, clopidogrel was discontinued and Eliquis was initiated. She then had another ischemic stroke (left basal ganglia lacunar infarct) in August 2022 that manifested with right leg weakness, right lower extremity numbness, confusion and aphasia. Her symptoms resolved in 2 days. Eliquis was continued and clopidogrel was reinitiated. She had physical therapy and has performed exercises on her own. She has not had symptoms suggestive of recurrent cerebrovascular ischemia since August 2022. She has fatigue. Monthly B12 injections provided by her primary care provider have been of benefit. She has had low back pain in the past (including earlier in 2022); this has resolved. She uses a cane as needed. She has a history of migraine headaches that are preceded by flashing or halo scintillations. She takes atorvastatin. She has early cataracts. She has had a mild tremor affecting the hands; this has not caused functional impairment. Ondansetron was of benefit for her nausea. She no longer experiences nausea. She was hospitalized for a UTI in January 2024. She had nausea and vomiting associated with this illness. A head MRI in January 2024 did not reveal acute ischemic changes. A head and neck CTA in January 2024 did not reveal any significant large vessel stenosis. Physical Exam: Neuro: The patient is awake and alert and responds appropriately; a mild bilateral hand tremor is noted when arms are extended; no rigidity is noted in the wrists motor strength is 5/5 in the quadriceps bilaterally and foot dorsiflexors bilaterally; gait is slow Heart: Regular rate and rhythm Neck: no bruits Supplemental Info Cervical spine CT (03/15/2019): IMPRESSION: No acute osseous injury is evident. 2 x 1.5 cm left thyroid nodule. Consider ultrasound follow-up. Head/neck CTA (02/06/2020): IMPRESSION: 1. Normal red cliff of [place] without evidence of intracranial aneurysm or occlusion. 2. Mild atherosclerotic changes of the bilateral carotid arteries without significant stenosis. 3. Question minimal low attenuation in the right occipital lobe. Normal bilateral vertebral arteries EKG (02/06/2020): Normal sinus rhythm Low voltage QRS Septal infarct , age undetermined Abnormal ECG Echocardiogram (02/06/2020): Normal LV size. Left ventricular systolic function is normal. The estimated ejection fraction is 60 %. Stage 1 diastolic dysfunction. Normal left atrium. Normal right atrium. Bubble contrast study negative for right to left interatrial shunt. There is moderate to severe mitral annular calcification. The aortic valve is not well visualized. Mild (1+) aortic valve insufficiency. Brain MRI (02/06/2020): Acute/subacute right posterior cerebral artery infarct in tiny embolic infarcts of the left frontal lobe, right temporal lobe, and right parietal lobe. Brain CT (02/06/2020): No acute intracranial or calvarial abnormality. There is no major interval change. Labs (02/07/2020): Lipid panel: HDL 31 (L) Serial Troponins (02/06/2020 - 02/07/2020): elevated; consistent with cardiac damage Labs (02/08/2020): CBCD: RBC 3.99 (L), hemoglobin 11.3 (L), hematocrit 36.7 (L) BMP: Glucose 169 (H), creatinine 0.54 (L), estimated GFR 117 Hemoglobin A1c: 7.6% (H) POC glucose: 172 (H) TSH (02/14/20): 5.16 (elevated) Head CT (04/17/2021): COMPARISON: Head CT dated February 06, 2020 FINDINGS: Normal soft tissue structures. Normal calvarium. There is mild cerebral atrophy with widening of the extra-axial spaces and ventricular dilatation. There are areas of decreased attenuation within the white m (more content not included)... Normal [facility] PATRICIABRITNEY FLORES ([id number]) 1945 F Date Time Provider Department 02/21/24 11:45 AM MS NURSE JOE During your visit today, we recorded the following information about you: Agueda Sabillon LPN 02/21/2024 11:34 AM Signed Patient presents for B-12 injection. Denies any problems at this time. Patient instructed on any SE of medication, verbalized understanding and agreed to proceed with treatment. Tolerated injection well. Agueda Sabillon LPN Allergies As of Date: 02/21/2024 Noted Allergy Reaction DARVON (PROPOXYPHENE HCL) 10/11/2008 8 - GI Upset PENICILLINS 10/11/2008 2 - Rash Date Reviewed: 10/27/2023 Reviewed by: Chantale Alves MA - Fully Assessed Reason for Visit: B-12 Injection [247] Primary Visit Diagnosis:Vitamin B 12 deficiency [E53.8] Prescriptions as of 02/21/2024 - levothyroxine (LEVOXYL) 50 mcg tablet Take 1 tablet by mouth once daily. Take on empty stomach. For Thyroid - losartan (COZAAR) 50 mg tablet Take 1 tablet by mouth once daily. - metFORMIN ER (GLUCOPHAGE XR) 500 mg 24 hr tablet Take 2 tablets by mouth two times a day with meals. - empagliflozin (JARDIANCE) 25 mg tablet Take 1 tablet by mouth once daily. Take 1 tablet once daily in the morning - clopidogrel (PLAVIX) 75 mg tablet Take 1 tablet by mouth once daily. Take 75 mg by mouth once daily. - atorvastatin (LIPITOR) 80 mg tablet TAKE 1 TABLET BY MOUTH ONCE DAILY AT BEDTIME FOR CHOLESTEROL - terconazole vaginal cream (TERAZOL) 0.8 % vaginal cream Use 1 Applicator vaginally daily at bedtime. - cyanocobalamin 1,000 mcg/mL Inject 1 mL intramuscularly once every month. - blood sugar diagnostic (BLOOD GLUCOSE TEST) test strip Test blood sugar(s) 2 times daily. Dx: Type 2 DM - Uncontrolled E11.65 Insulin: No - Lancets lancets Test blood sugar(s) two times times daily. Dx: Other DM Code E11.65 Insulin: No - metoprolol tartrate, short acting, (LOPRESSOR) 25 mg tablet Take 25 mg by mouth twice daily. - apixaban (ELIQUIS) 5 mg tab(s) Take by mouth twice daily. - fluticasone (FLONASE) 50 mcg/actuation nasal spray Use 2 Sprays in each nostril once daily. Facility-Administered Medications as of 02/21/2024 - cyanocobalamin 1,000 mcg injection Problem List As Of Date 02/21/2024 Noted Resolved Type II or unspecified type diabetes mellitus w*09/25/2014 02/19/2015 Other and unspecified hyperlipidemia [E78.5] 09/25/2014 06/21/2015 Essential hypertension [I10] 09/25/2014 BMI 38.0-38.9,adult [Z68.38] 09/25/2014 11/30/2014 Other allergic rhinitis [J30.89] 09/25/2014 BMI 37.0-37.9, adult [Z68.37] 11/30/2014 Diabetes mellitus type 2 with complications (HC*02/19/2015 Uncontrolled type 2 diabetes with neuropathy (H*04/23/2015 Mixed hyperlipidemia [E78.2] 12/24/2015 Occipital stroke (HCC) [I63.9] 02/14/2020 Vision loss [H54.7] 02/14/2020 NSTEMI (non-ST elevated myocardial infarction) *02/14/2020 Paroxysmal A-fib (HCC) [I48.0] 05/15/2020 Vitamin B 12 deficiency [E53.8] 06/12/2020 Encounter Status:Closed by AGUEDA SABILLON on 02/21/24 [facility] Telephone (INTMWS) BRITNEY CANADA ([id number]) 1945 F Date Time Provider Department 02/14/24 JONES VELASQUEZ INTMWS During your visit today, we recorded the following information about you: Agueda Sabillon LPN 02/14/2024 11:27 AM Signed Patient scheduled for nurse visit 02/21/24 to receive B-[address] order at this time. Agueda Sabillon LPN Allergies As of Date: 02/14/2024 Noted Allergy Reaction DARVON (PROPOXYPHENE HCL) 10/11/2008 8 - GI Upset PENICILLINS 10/11/2008 2 - Rash Date Reviewed: 10/27/2023 Reviewed by: Chantale Alves MA - Fully Assessed Reason for Visit: Orders [681] Primary Visit Diagnosis:Vitamin B 12 deficiency [E53.8] Order(s):[START ON 02/21/2024] cyanocobalamin 1,000 mcg injectionDisp: Rfl: Prescriptions as of 02/14/2024 - losartan (COZAAR) 50 mg tablet Take 1 tablet by mouth once daily. - metFORMIN ER (GLUCOPHAGE XR) 500 mg 24 hr tablet Take 2 tablets by mouth two times a day with meals. - empagliflozin (JARDIANCE) 25 mg tablet Take 1 tablet by mouth once daily. Take 1 tablet once daily in the morning - clopidogrel (PLAVIX) 75 mg tablet Take 1 tablet by mouth once daily. Take 75 mg by mouth once daily. - levothyroxine (LEVOXYL) 50 mcg tablet Take 1 tablet by mouth once daily. Take on empty stomach. For Thyroid - atorvastatin (LIPITOR) 80 mg tablet TAKE 1 TABLET BY MOUTH ONCE DAILY AT BEDTIME FOR CHOLESTEROL - terconazole vaginal cream (TERAZOL) 0.8 % vaginal cream Use 1 Applicator vaginally daily at bedtime. - cyanocobalamin 1,000 mcg/mL Inject 1 mL intramuscularly once every month. - blood sugar diagnostic (BLOOD GLUCOSE TEST) test strip Test blood sugar(s) 2 times daily. Dx: Type 2 DM - Uncontrolled E11.65 Insulin: No - Lancets lancets Test blood sugar(s) two times times daily. Dx: Other DM Code E11.65 Insulin: No - metoprolol tartrate, short acting, (LOPRESSOR) 25 mg tablet Take 25 mg by mouth twice daily. - apixaban (ELIQUIS) 5 mg tab(s) Take by mouth twice daily. - fluticasone (FLONASE) 50 mcg/actuation nasal spray Use 2 Sprays in each nostril once daily. Facility-Administered Medications as of 02/14/2024 - cyanocobalamin 1,000 mcg injection Problem List As Of Date 02/14/2024 Noted Resolved Type II or unspecified type diabetes mellitus w*09/25/2014 02/19/2015 Other and unspecified hyperlipidemia [E78.5] 09/25/2014 06/21/2015 Essential hypertension [I10] 09/25/2014 BMI 38.0-38.9,adult [Z68.38] 09/25/2014 11/30/2014 Other allergic rhinitis [J30.89] 09/25/2014 BMI 37.0-37.9, adult [Z68.37] 11/30/2014 Diabetes mellitus type 2 with complications (HC*02/19/2015 Uncontrolled type 2 diabetes with neuropathy (H*04/23/2015 Mixed hyperlipidemia [E78.2] 12/24/2015 Occipital stroke (HCC) [I63.9] 02/14/2020 Vision loss [H54.7] 02/14/2020 NSTEMI (non-ST elevated myocardial infarction) *02/14/2020 Paroxysmal A-fib (HCC) [I48.0] 05/15/2020 Vitamin B 12 deficiency [E53.8] 06/12/2020 Prescriptions ordered this encounter Disp Refills Start End CYANOCOBALAMIN (VIT B-12) 1,000 MCG/* 02/21/2024 01/21/2025 Route: INTRAMUSCULA Encounter Status:Closed by AGUEDA SABILLON on 02/14/24 Normal [facility] Bacteria Ur Culton 4 Bacteria identified Cx Nom (U) ORGANISM ID: 1 50,000-<100,000 CFU/ml Mixed microbiota No further workup. Mixed microbiota can be due to???urine???contamin ation with skin bacteria at time of collection or presence of a long-term urinary catheter. If a new culture is needed, please consider re-education of the patient on proper midstream collection technique or straight catheterization for???urine???collect ion. Normal [facility] Comment on above: Performed By: #### 6 30-4, 31941-6 ####[facility] LABCLIA [id number] [place] [address] [place] Urinalysis complete panel (U )on 02-11-2024 Bacteria LM.HPF (Urine sed) [#/Area] Negative Normal Negative [facility] Comment on above: Order Comment: Speci men Type: URINE SPECIMENOrdering Facility: [facility] Address: [address] [place] [address] Performed By: #### 6 30-4, 27917-1 ####[facility] LABIA [id number] [place] [address] [place] Bilirubin Ql (U) Negative Normal Negative [facility] Comment on above: Order Comment: Speci men Type: URINE SPECIMENOrdering Facility: [facility] Address: [address] [place] [address] Performed By: #### 6 30-4, 96230-3 ####[facility] LABIA [id number] [place] [address] [place] Clarity (Unsp spec) Clear Normal Clear [facility] Comment on above: Order Comment: Speci men Type: URINE SPECIMENOrdering Facility: [facility] Address: [address] [place] [address] Performed By: #### 6 30-4, 82540-9 ####[facility] LABIA [id number] [place] [address] [place] Color (U) Yellow Normal Yellow [facility] Comment on above: Order Comment: Speci men Type: URINE SPECIMENOrdering Facility: [facility] Address: [address] [place] [address] Performed By: #### 6 30-4, 25405-0 ####[facility] LABIA [id number] [place] [address] [place] Epithelial cells LM.HPF (Urine sed) [#/Area] Moderate Normal [facility] Comment on above: Order Comment: Speci men Type: URINE SPECIMENOrdering Facility: [facility] Address: [address] [place] [address] Performed By: #### 6 30-4, 90907-6 ####[facility] LABCLIA [id number] [address] [place] Glucose Test strip (U) [Mass/Vol] 3+ Abnormal Negative [facility] Comment on above: Order Comment: Speci men Type: URINE SPECIMENOrdering Facility: [facility] Address: [address] [place] [address] Performed By: #### 6 30-4, 41442-0 ####[facility] LABCLIA [id number] [place] [address] [place] Hemoglobin Ql (U) Negative Normal Negative [facility] Comment on above: Order Comment: Speci men Type: URINE SPECIMENOrdering Facility: [facility] Address: [address] [place] [address] Performed By: #### 6 30-, 43637-0 ####[facility] LABCLIA [id number] [place] [address] [place] Hyaline casts (Urine sed) [#/Area] 0 /[LPF] Normal 0 /LPF [facility] Comment on above: Order Comment: Speci men Type: URINE SPECIMENOrdering Facility: [facility] Address: [address] [place] [address] Performed By: #### 6 30-4, 65668-1 ####[facility] LABCLIA [id number] [place] [address] [place] Ketones Ql (U) Negative Normal Negative [facility] Comment on above: Order Comment: Speci men Type: URINE SPECIMENOrdering Facility: [facility] Address: [address] [place] [address] Performed By: #### 6 30-4, 96634-4 ####[facility] LABCLIA [id number] [place] [address] [place] Leukocyte esterase Test strip Ql (U) 1+ Abnormal Negative [facility] Comment on above: Order Comment: Speci men Type: URINE SPECIMENOrdering Facility: [facility] Address: [address] [place] [address] Performed By: #### 6 30-4, 26852-2 ####[facility] LABCLIA [id number] [place] [address] [place] Nitrite Ql (U) Negative Normal Negative [facility] Comment on above: Order Comment: Speci men Type: URINE SPECIMENOrdering Facility: [facility] Address: [address] [place] [address] Performed By: #### 6 30-4, 16620-7 ####[facility] LABCLIA [id number] [place] [address] [place] pH (U) 6.0 [pH] Normal <8.5 [facility] Comment on above: Order Comment: Speci men Type: URINE SPECIMENOrdering Facility: [facility] Address: [address] [place] [address] Performed By: #### 6 30-4, 36691-0 ####[facility] LABCLIA [id number] [place] [address] [place] Protein (U) [Mass/Vol] Negative Normal Negative [facility] Comment on above: Order Comment: Speci men Type: URINE SPECIMENOrdering Facility: [facility] Address: [address] [place] [address] Performed By: #### 6 30-4, 50961-4 ####[facility] LABCLIA [id number] [place] [address] [place] RBC LM.HPF (Urine sed) [#/Area] 0-2 /HPF Normal 0-2 /HPF [facility] Comment on above: Order Comment: Speci men Type: URINE SPECIMENOrdering Facility: [facility] Address: [address] [place] [address] Performed By: #### 6 30-4, 96867-7 ####[facility] LABIA [id number] [place] [address] [place] Specific gravity (U) [Rel density] 1.033 High 1.005-1.030 [facility] Comment on above: Order Comment: Speci men Type: URINE SPECIMENOrdering Facility: [facility] Address: [address] [place] [address] Performed By: #### 6 30-4, 34706-8 ####[facility] [id number] [place] [address] [place] Urobilinogen Ql (U) 0.2 EU/dL Normal 0.2-1.0 EU/dL [facility] Comment on above: Order Comment: Speci men Type: URINE SPECIMENOrdering Facility: [facility] Address: [address] [place] [address] Performed By: #### 6 30-4, 96311-6 ####[facility] [id number] [place] [address] [place] WBC LM.HPF (Urine sed) [#/Area] 11-20 /HPF Abnormal 0-5 /HPF [facility] Comment on above: Order Comment: Speci men Type: URINE SPECIMENOrdering Facility: [facility] Address: [address] [place] [address] Performed By: #### 6 30-4, 65582-5 ####[facility] [id number] [place] [address] [place] Basic metabolic 2000 panelon 02-09-2024 Anion gap [Moles/Vol] 12 mmol/L Normal 8-15 [facility] Comment on above: Order Comment: Speci men Type: BLOOD SPECIMENOrdering Facility: [facility] Address: [address] [place] [address] Performed By: #### 1 9123-9, 64367-3 ####[facility] SUKHJINDER MILLTOWNCLIA [id number] [place] [address] [place] Calcium [Mass/Vol] 9.9 mg/dL Normal 8.5-10.2 [facility] Comment on above: Order Comment: Speci men Type: BLOOD SPECIMENOrdering Facility: [facility] Address: [address] [place], [place] [address] Performed By: #### 1 9123-9, ####[facility] MILLTOWNCLIA [id number] [place] [address] [place] Chloride [Moles/Vol] 105 mmol/L Normal 98-107 [facility] Comment on above: Order Comment: Speci men Type: BLOOD SPECIMENOrdering Facility: [facility] Address: [address] [place] [address] Performed By: #### 1 91239, ####[facility] MILLWYOHANNESLIA [id number] [place] [address] [place] CO2 [Moles/Vol] 23 mmol/L Normal 22-30 [facility] Comment on above: Order Comment: Speci men Type: BLOOD SPECIMENOrdering Facility: [facility] Address: [address] [place], [place] [address] Performed By: #### 1 91239, 48683-8 ####[facility] MILLTOWNCLIA [id number] [place] [address] [place] Creatinine [Mass/Vol] 0.62 mg/dL Normal 0.58-0.96 [facility] Comment on above: Order Comment: Speci men Type: BLOOD SPECIMENOrdering Facility: [facility] Address: [address] [place], [place] [address] Performed By: #### 1 91239, 98633-7 ####[facility] [id number] [place] [address] [place] Creatinine and Glomerular filtration rate.predicted panel (S/P/Bld) 92 mL/min/1.73m??? Normal >=60 [facility] Comment on above: Order Comment: Kamla clark Type: BLOOD SPECIMENOrdering Facility: [facility] Address: [address] [place] [address] Result Comment: Shakira mated Glomerular Filtration Rate (eGFR) is calculated using the 2020 CKD-EPI creatinine equation. This equation utilizes serum creatinine, sex, and age as parameters. The creatinine assay has traceable calibration to isotope dilution-mass spectrometry. Refer to KDIGO guidelines for clinical interpretation. In patients with unstable renal function, e.g. those with acute kidney injury, the eGFR may not accurately reflect actual GFR. Performed By: #### 1 9123-9, 91472-8 ####[facility] [id number] [place] [address] [place] Glucose [Mass/Vol] 138 mg/dL High 74-99 [facility] Comment on above: Order Comment: Kamla clark Type: BLOOD SPECIMENOrdering Facility: [facility] Address: [address] [place] [address] Result Comment: The [place] Diabetes Association (ADA) provides guidance for cutoff values for fasting glucose and random glucose. The ADA defines fasting as no caloric intake for at least 8 hours. Fasting plasma glucose results between 100 to 125 mg/dL indicate increased risk for diabetes (prediabetes). Fasting plasma glucose results greater than or equal to 126 mg/dL meet the criteria for diagnosis of diabetes. In the absence of unequivocal hyperglycemia, results should be confirmed by repeat testing. In a patient with classic symptoms of hyperglycemia or hyperglycemic crisis, random plasma glucose results greater than or equal to 200 mg/dL meet the criteria for diagnosis of diabetes. Reference: Standards of Medical Care in Diabetes 2016, [place] Diabetes Association. Diabetes Care. 2016.39(Suppl 1). Performed By: #### 1 9123-9, 74862-0 ####[facility] [id number] [place] [address] [place] Potassium [Moles/Vol] 4.4 mmol/L Normal 3.7-5.1 [facility] Comment on above: Order Comment: Speci men Type: BLOOD SPECIMENOrdering Facility: [facility] Address: [address] [place] [address] Performed By: #### 1 9123-9, 61645-2 ####[facility] [id number] [place] [address] [place] Sodium [Moles/Vol] 140 mmol/L Normal 136-144 [facility] Comment on above: Order Comment: Speci men Type: BLOOD SPECIMENOrdering Facility: [facility] Address: [address] [place] [address] Performed By: #### 1 9123-9, 23165-2 ####[facility] [id number] [place] [address] [place] Urea nitrogen [Mass/Vol] 10 mg/dL Normal 7-21 [facility] Comment on above: Order Comment: Speci men Type: BLOOD SPECIMENOrdering Facility: [facility] Address: [address] [place] [address] Performed By: #### 1 9123-9, 09837-7 ####[facility] [id number] [place] [address] [place] Angela 02-09-2024 [facility] Telephone (JOE) BRITNEY CANADA ([id number]) 1945 F Date Time Provider Department 02/09/24 ASTRID MUSE During your visit today, we recorded the following information about you: Astrid Muse APRN.CNP 02/09/2024 6:35 PM Signed I reviewed hospital records. HgbA1c has improved to 7.1, Imaging reviewed and she needs to schedule already ordered thyroid US to further evaluated incidental finding of thyroid nodule. Slightly anemic while at hospital but probably from fluids. We will recheck this at a later date. current magnesium level normal. Thank you Astrid Muse APRN.Astrid Menon APRN.CNP 02/10/2024 3:04 PM Signed Thyroid US recommending aspiration/biopsy of thyroid nodule. Consult sent to general surgery to have this scheduled and completed. Thank you KENNEDI Mckeon Amanda, RN 02/10/2024 3:13 PM Signed Pt called and is notified of providers results and instructions. Pt voices understanding. Pt will call back in to schedule appointment as her is out of the car and has their calendar. 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 Gladis Vallecillo LPN Allergies As of Date: 02/09/2024 Noted Allergy Reaction DARVON (PROPOXYPHENE HCL) 10/11/2008 8 - GI Upset PENICILLINS 10/11/2008 2 - Rash Date Reviewed: 10/27/2023 Reviewed by: Chantale Alves MA - Fully Assessed Reason for Visit: Results [95] Primary Visit Diagnosis:Thyroid nodule [E04.1] Order(s):CONSULT TO GENERAL SURGERY [9011] Order #: [id number]: 1 FUTURE Prescriptions as of 02/10/2024 - losartan (COZAAR) 50 mg tablet Take 1 tablet by mouth once daily. - metFORMIN ER (GLUCOPHAGE XR) 500 mg 24 hr tablet Take 2 tablets by mouth two times a day with meals. - empagliflozin (JARDIANCE) 25 mg tablet Take 1 tablet by mouth once daily. Take 1 tablet once daily in the morning - clopidogrel (PLAVIX) 75 mg tablet Take 1 tablet by mouth once daily. Take 75 mg by mouth once daily. - levothyroxine (LEVOXYL) 50 mcg tablet Take 1 tablet by mouth once daily. Take on empty stomach. For Thyroid - atorvastatin (LIPITOR) 80 mg tablet TAKE 1 TABLET BY MOUTH ONCE DAILY AT BEDTIME FOR CHOLESTEROL - terconazole vaginal cream (TERAZOL) 0.8 % vaginal cream Use 1 Applicator vaginally daily at bedtime. - cyanocobalamin 1,000 mcg/mL Inject 1 mL intramuscularly once every month. - blood sugar diagnostic (BLOOD GLUCOSE TEST) test strip Test blood sugar(s) 2 times daily. Dx: Type 2 DM - Uncontrolled E11.65 Insulin: No - Lancets lancets Test blood sugar(s) two times times daily. Dx: Other DM Code E11.65 Insulin: No - metoprolol tartrate, short acting, (LOPRESSOR) 25 mg tablet Take 25 mg by mouth twice daily. - apixaban (ELIQUIS) 5 mg tab(s) Take by mouth twice daily. - fluticasone (FLONASE) 50 mcg/actuation nasal spray Use 2 Sprays in each nostril once daily. Problem List As Of Date 02/09/2024 Noted Resolved Type II or unspecified type diabetes mellitus w*09/25/2014 02/19/2015 Other and unspecified hyperlipidemia [E78.5] 09/25/2014 06/21/2015 Essential hypertension [I10] 09/25/2014 BMI 38.0-38.9,adult [Z68.38] 09/25/2014 11/30/2014 Other allergic rhinitis [J30.89] 09/25/2014 BMI 37.0-37.9, adult [Z68.37] 11/30/2014 Diabetes mellitus type 2 with complications (HC*02/19/2015 Uncontrolled type 2 diabetes with neuropathy (H*04/23/2015 Mixed hyperlipidemia [E78.2] 12/24/2015 Occipital stroke (HCC) [I63.9] 02/14/2020 Vision loss [H54.7] 02/14/2020 NSTEMI (non-ST elevated myocardial infarction) *02/14/2020 Paroxysmal A-fib (HCC) [I48.0] 05/15/2020 Vitamin B 12 deficiency [E53.8] 06/12/2020 Encounter Status:Closed by GLADIS VALLECILLO on 02/10/24 [facility] Magnesium SerPl-mCncon 02-08 Magnesium [Mass/Vol] 1.8 mg/dL Normal 1.7-2.3 [facility] Comment on above: Order Comment: Speci men Type: BLOOD SPECIMENOrdering Facility: [facility] Address: [facility] [place] [id number] Performed By: #### 1 9123-9, 79250-6 ####[facility] [id number] [place] [address] [place] US THYROID/PARATHYROIDon US THYROID/PARATHYROID * * *Final Report * * * DATE OF EXAM: Feb 08 2024 8:05AM WRU 1048 - US THYROID/PARATHYROID / PROCEDURE REASON: Thyroid nodule * * * * Physician Interpretation * * * * EXAMINATION: THYROID ULTRASOUND CLINICAL HISTORY: Thyroid nodule TECHNIQUE: Sonography and Doppler imaging of the thyroid was performed. Images were obtained and stored in a permanent archive. MQ: UST_1 COMPARISON: None. RESULT: Right Lobe: 4.4 cm x 1.3 cm x 1.4 cm; homogeneous echogenicity, expected vascular flow. Left Lobe: 4.0 cm x 1.9 cm x 1.7 cm; homogeneous echogenicity, expected vascular flow. Isthmus: 0.4 cm The most suspicious thyroid nodule(s) (up to four) as below: NODULE 1: Location: Left mid Size: 2.2 x 1.5 x 1.4 cm Characteristics: Composition: Solid or almost completely solid, 2 points Echogenicity: Hypoechoic, 2 points Shape: [id number], 0 points Margin: Smooth, 0 points Echogenic foci (add points for all that apply): None, 0 points Internal vascularity: present Interval growth: No prior available for comparison TI-RADS Category: TR4 ACR Recommendation: TI-RADS 4 nodule. FNA is recommended. IMPRESSION: Thyroid nodule(s) is/are present. Fine needle aspiration is recommended if not previously performed. . TI-RADS Category: TR4 ACR Recommendation: TI-RADS 4 nodule. FNA is recommended. ACR recommendations are strictly based on the size and imaging appearance at the time of the exam and do not consider stability or previous biopsy results. ACTIONABLE RESULT: FOLLOW-UP Acuity: Actionable Findings: Endocrine (thyroid) Routing Code: EMI_1 Recommendation: Unlisted Recommendation (see report) Time Frame: At the discretion of the clinical team. COMMUNICATION: Results will be communicated with the ordering provider via [employer] staff message or phone message by [employer] within 2 business days of report finalization. --END OF FINDING-- Mri Specialist: KELLYB Transcribe Date/Time: Feb 10 2024 1:06P Dictated by : KAYLIN GALEANO MD This examination was interpreted and the report reviewed and electronically signed by: KAYLIN GALEANO MD on Feb 10 2024 1:49PM EST [id number] ACTIONABLE Invalid Interpretation Code [facility] CNOVon 02-02-2024 CNOV Office Visit (INTMWS ) BRITNEY CANADA ([id number]) 1945 F Date Time Provider Department 02/02/24 12:20 PM ASTRID MUSE During your visit today, we recorded the following information about you: Pulse Respiration Blood pressure Weight 56/minute 16/minute 128/72 83.9 kg Astrid Muse APRN.[facility] 02/02/2024 1:41 PM Signed CC: Patient presents with: Recheck: ER Follow up UTI HPI Britney David [place] is a 78 year old female who presents today for Hospital follow-up. Patient's discharge instructions provided but no other records available. Facility: [facility] Date of visit: 01/19 - 01/20 Reason for visit: After a long trip in [place] she came home and started projectile vomiting for 30 min straight. 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 Incidentally found thyroid nodule recommending Ultrasound. Echocardiogram performed. Low magnesium - supplemented IV. Diagnosis: UTI Discharge: on cefdinir Current symptoms: Has finished her antibiotic and finished treatment 1 week ago. Denies further nausea or vomiting. Also denies fever, chills, abdominal pain, difficulty/pain urinating, blood in urine, dark/foul smelling urine, chest pain, shortness of breath, palpitations, edema, dizziness, syncope, weakness, headaches, cough, or wheezing. REVIEW OF SYSTEMS See HPI PAST MEDICAL HISTORY Diagnosis Date Abnormal mammogram, unspecified Diabetes mellitus without mention of complication PAST SURGICAL HISTORY Procedure Laterality Date CHOLECYSTECTOMY 1989 RPR UMBILICAL HRNA 5 YRS/> REDUCIBLE STEREOTACTIC CORE BIOPSY 10/18/08 RIGHT BREAST ALLERGIES Darvon [Propoxyphene Hcl] and Penicillins MEDICATIONS losartan (COZAAR) 50 mg tablet Take 1 tablet by mouth once daily. metFORMIN ER (GLUCOPHAGE XR) 500 mg 24 hr tablet Take 2 tablets by mouth two times a day with meals. empagliflozin (JARDIANCE) 25 mg tablet Take 1 tablet by mouth once daily. Take 1 tablet once daily in the morning clopidogrel (PLAVIX) 75 mg tablet Take 1 tablet by mouth once daily. Take 75 mg by mouth once daily. levothyroxine (LEVOXYL) 50 mcg tablet Take 1 tablet by mouth once daily. Take on empty stomach. For Thyroid atorvastatin (LIPITOR) 80 mg tablet TAKE 1 TABLET BY MOUTH ONCE DAILY AT BEDTIME FOR CHOLESTEROL terconazole vaginal cream (TERAZOL) 0.8 % vaginal cream Use 1 Applicator vaginally daily at bedtime. cyanocobalamin 1,000 mcg/mL Inject 1 mL intramuscularly once every month. blood sugar diagnostic (BLOOD GLUCOSE TEST) test strip Test blood sugar(s) 2 times daily. Dx: Type 2 DM - Uncontrolled E11.65 Insulin: No Lancets lancets Test blood sugar(s) two times times daily. Dx: Other DM Code E11.65 Insulin: No metoprolol tartrate, short acting, (LOPRESSOR) 25 mg tablet Take 25 mg by mouth twice daily. apixaban (ELIQUIS) 5 mg tab(s) Take by mouth twice daily. fluticasone (FLONASE) 50 mcg/actuation nasal spray Use 2 Sprays in each nostril once daily. FAMILY HISTORY Problem Relation Age of Onset Prostate Cancer Father Breast Cancer Mother 40 Coronary Artery Disease Mother pace maker Coronary Artery Disease Father triple bypass Social History Tobacco Use Smoking status: Never Smokeless tobacco: Never Substance Use Topics Alcohol use: Yes Comment: rarely Drug use: No PHYSICAL EXAM BP 128/72 Pulse (!) 56 Resp 16 Wt 83.9 kg (185 lb) SpO2 96% BMI 33.84 kg/m? General Appearance: well appearing, in no acute distress, alert Eyes: conjunctiva pink and moist, no icterus, sclera white, non-injected Lungs: Lungs clear to auscultation. No wheezing, rhonchi, rales. Heart: RRR without murmur, gallop, or rubs. No ectopy Abdomen: Abdomen soft, non-tender. Bowel sounds normal. No masses, organomegaly Depression Screening Never done Anxiety Screening Never done Urine Albumin:Creatinine Ratio due on 11/01/2020 Diabetic Foot Exam due on 11/21/2022 RSV Vaccine(1 - 1-dose 75+ series) due on 10/26/2024 LDL Cholesterol due on 04/27/2024 HbA1C due on 04/27/2024 Annual PCP Team Chronic Disease Visit due on 10/26/2024 BP Controlled (<130/80) due on 10/26/2024 Dilated Retinal Exam due on 12/01/2024 DTaP,Tdap,Td Vaccine(2 - Td or Tdap) due on 01/16/2030 Bone Density Screening Completed Influenza Vaccine Completed Advance Directive Discussion Completed Hepatitis C Screening Completed Shingrix Vaccine Completed Covid-19 Vaccine Completed Pneumococcal Vaccine: 65+ Completed Mammogram Screening Discontinued Colorectal Cancer Screening Discontinued DATA REVIEWED: requesting [facility] records to be fully reviewed. ASSESSMENT/PLAN: 1. History of recent hospitalization - ICD9: V13.9, ICD10: Z92.89 (primary diagnosis) For UTI resulting in vomiting and hypomagnesemia Need to get full imaging and lab results to review for further information. At this time (more content not included)... [facility] Nurse Visit (FAMPWS) BRITNEY CANADA ([id number]) 1945 F Date Time Provider Department 01/24/24 1:15 PM MS NURSE FAMPWS During your visit today, we recorded the following information about you: Agueda Sabillon LPN 01/24/2024 1:18 PM Signed Patient presents for B-12 injection. Denies any problems at this time. Patient instructed on any SE of medication, verbalized understanding and agreed to proceed with treatment. Tolerated injection well. Agueda Sabillon LPN Allergies As of Date: 01/24/2024 Noted Allergy Reaction DARVON (PROPOXYPHENE HCL) 10/11/2008 8 - GI Upset PENICILLINS 10/11/2008 2 - Rash Date Reviewed: 10/27/2023 Reviewed by: Chantale Alves MA - Fully Assessed Reason for Visit: B-12 Injection [247] Primary Visit Diagnosis:Vitamin B 12 deficiency [E53.8] Prescriptions as of 01/24/2024 - losartan (COZAAR) 50 mg tablet Take 1 tablet by mouth once daily. - metFORMIN ER (GLUCOPHAGE XR) 500 mg 24 hr tablet Take 2 tablets by mouth two times a day with meals. - empagliflozin (JARDIANCE) 25 mg tablet Take 1 tablet by mouth once daily. Take 1 tablet once daily in the morning - clopidogrel (PLAVIX) 75 mg tablet Take 1 tablet by mouth once daily. Take 75 mg by mouth once daily. - levothyroxine (LEVOXYL) 50 mcg tablet Take 1 tablet by mouth once daily. Take on empty stomach. For Thyroid - atorvastatin (LIPITOR) 80 mg tablet TAKE 1 TABLET BY MOUTH ONCE DAILY AT BEDTIME FOR CHOLESTEROL - terconazole vaginal cream (TERAZOL) 0.8 % vaginal cream Use 1 Applicator vaginally daily at bedtime. - cyanocobalamin 1,000 mcg/mL Inject 1 mL intramuscularly once every month. - blood sugar diagnostic (BLOOD GLUCOSE TEST) test strip Test blood sugar(s) 2 times daily. Dx: Type 2 DM - Uncontrolled E11.65 Insulin: No - Lancets lancets Test blood sugar(s) two times times daily. Dx: Other DM Code E11.65 Insulin: No - metoprolol tartrate, short acting, (LOPRESSOR) 25 mg tablet Take 25 mg by mouth twice daily. - apixaban (ELIQUIS) 5 mg tab(s) Take by mouth twice daily. - fluticasone (FLONASE) 50 mcg/actuation nasal spray Use 2 Sprays in each nostril once daily. Problem List As Of Date 01/24/2024 Noted Resolved Type II or unspecified type diabetes mellitus w*09/25/2014 02/19/2015 Other and unspecified hyperlipidemia [E78.5] 09/25/2014 06/21/2015 Essential hypertension [I10] 09/25/2014 BMI 38.0-38.9,adult [Z68.38] 09/25/2014 11/30/2014 Other allergic rhinitis [J30.89] 09/25/2014 BMI 37.0-37.9, adult [Z68.37] 11/30/2014 Diabetes mellitus type 2 with complications (HC*02/19/2015 Uncontrolled type 2 diabetes with neuropathy (H*04/23/2015 Mixed hyperlipidemia [E78.2] 12/24/2015 Occipital stroke (HCC) [I63.9] 02/14/2020 Vision loss [H54.7] 02/14/2020 NSTEMI (non-ST elevated myocardial infarction) *02/14/2020 Paroxysmal A-fib (HCC) [I48.0] 05/15/2020 Vitamin B 12 deficiency [E53.8] 06/12/2020 Encounter Status:Closed by AGUEDA SABILLON on 01/24/24 Normal [facility] .Auto Diffon 01-21-2024 Basophil, Absolute 0.1 10 3/mcL Normal 0.0-0.2 [facility] Comment on above: Performed By: #### A DIFF, LIPID, CBC, ANEU, BMP, GFR #### [address] [address] Basophils/100 WBC (Bld) 0.7 % Normal 0.0-2.[address] [facility] Comment on above: Performed By: #### A DIFF, LIPID, CBC, ANEU, BMP, GFR #### [address] [place], [place] [address] Eosinophil, Absolute 0.0 10 3/mcL Normal 0.0-0.7 [facility] Comment on above: Performed By: #### A DIFF, LIPID, CBC, ANEU, BMP, GFR #### [address] [place], [place] [address] Eosinophils/100 WBC (Bld) 0.0 % Normal 0.0-7.0 [facility] Comment on above: Performed By: #### A DIFF, LIPID, CBC, ANEU, BMP, GFR #### [address] [address] Lymphocyte, Absolute 0.4 10 3/mcL Low 0.9-4.3 [facility] Comment on above: Performed By: #### A DIFF, LIPID, CBC, ANEU, BMP, GFR #### [address] [address] Lymphocytes/100 WBC (Bld) 4.4 % Low 20.0-40.0 [facility] Comment on above: Performed By: #### A DIFF, LIPID, CBC, ANEU, BMP, GFR #### [address] [address] Monocyte, Absolute 0.3 10 3/mcL Normal 0.1-1.4 [facility] Comment on above: Performed By: #### A DIFF, LIPID, CBC, ANEU, BMP, GFR #### [address] [address] Monocytes/100 WBC (Bld) 3.8 % Normal 2.0-13.0 [facility] Comment on above: Performed By: #### A DIFF, LIPID, CBC, ANEU, BMP, GFR #### [address] [address] Neutrophils/100 WBC (Bld) 91.1 % High 50.0-75.0 [facility] Comment on above: Performed By: #### A DIFF, LIPID, CBC, ANEU, BMP, GFR #### [address] [address] .GFRon 01-21-2024 GFR Non- 76 ml/min/1.73sqm Normal [facility] Comment on above: Result Comment: GFR Population mean for , Non- Americans Ages 20-29 = 116 mL/min/1.73 sq.m. Ages 30-39 = 107 mL/min/1.73 sq.m. Ages 40-49 = 99 mL/min/1.73 sq.m. Ages 50-59 = 93 mL/min/1.73 sq.m. Ages 60-69 = 85 mL/min/1.73 sq.m. Ages 70+ = 75 mL/min/1.73 sq.m. Chronic Kidney Disease: Less than 60 mL/min/1.73 square meters End Stage Renal Disease: Less than 15 mL/min/1.73 square meters Performed By: #### A DIFF, LIPID, CBC, ANEU, BMP, GFR ####[address] [place], [place] [address] GFR 92 ml/min/1.73sqm Normal [facility] Comment on above: Result Comment: GFR Population mean for , Non- Americans Ages 20-29 = 116 mL/min/1.73 sq.m. Ages 30-39 = 107 mL/min/1.73 sq.m. Ages 40-49 = 99 mL/min/1.73 sq.m. Ages 50-59 = 93 mL/min/1.73 sq.m. Ages 60-69 = 85 mL/min/1.73 sq.m. Ages 70+ = 75 mL/min/1.73 sq.m. Chronic Kidney Disease: Less than 60 mL/min/1.73 square meters End Stage Renal Disease: Less than 15 mL/min/1.73 square meters Performed By: #### A DIFF, LIPID, CBC, ANEU, BMP, GFR ####[id number] [place], [place] [address] .NEUABSon 01-21-2024 Neutrophil, Absolute 8.4 10 3/mcL High 2.3-8.1 [facility] Comment on above: Performed By: #### A DIFF, LIPID, CBC, ANEU, BMP, GFR ####[id number] [place], [place] [address] .Urinalysis Microscopic (AO) on 01-21-2024 UA Bacteria 2+ /hpf Abnormal [facility] Comment on above: Performed By: #### U A, UAMICAO ####[id number] [place], [place] [address] UA RBC 0-5 Abnormal None Seen [facility] Comment on above: Performed By: #### U A, UAMICAO ####[facility] [place], [place] [address] UA Squam Epithelial 10-15 Abnormal None Seen [facility] Comment on above: Performed By: #### U A, UAMICAO ####[facility] [place], [place] [address] UA WBC LOADED Abnormal None Seen [facility] Comment on above: Performed By: #### U A, UAMICAO ####[facility] [place], [place] [address] A1Con 01-21-2024 Glucose [Mass/Vol] 157 mg/dL Normal [facility] Comment on above: Result Comment: Shakira mated Average Glucose calculated by equation ((28.7xA1C)-46.7) Estimated average glucose (eAG) is a calculated value from Hemoglobin A1C and is billing representative of the average blood glucose level in the last 2-3 month period. Normal range: less than 114 mg/dL Performed By: #### A 1C #### [facility] [address] [place], [place] [address] HbA1c (Bld) [Mass fraction] 7.1 % High 4.3-6.4 [facility] Comment on above: Performed By: #### A 1C #### [facility] [address] [place], [place] [address] BMPon 01-21-2024 BUN/Creatinine Ratio 18 ratio Normal 7-27 [facility] Comment on above: Performed By: #### A DIFF, LIPID, CBC, ANEU, BMP, GFR ####[facility] [place], [place] [address] Calcium [Mass/Vol] 8.8 mg/dL Normal 8.4-10.2 [facility] Comment on above: Performed By: #### A DIFF, LIPID, CBC, ANEU, BMP, GFR ####[facility] [place], [place] [address] Chloride [Moles/Vol] 105 mmol/L Normal 98-107 [facility] Comment on above: Performed By: #### A DIFF, LIPID, CBC, ANEU, BMP, GFR ####[address] [address] CO2 [Moles/Vol] 29 mmol/L Normal 23-31 [facility] Comment on above: Performed By: #### A DIFF, LIPID, CBC, ANEU, BMP, GFR ####[address] [address] Creatinine [Mass/Vol] 0.74 mg/dL Normal 0.55-1.02 [facility] Comment on above: Result Comment: Test ing performed on Siemens Dimension EXL analyzer using a modified kinetic Britany technique. Performed By: #### A DIFF, LIPID, CBC, ANEU, BMP, GFR ####[address] [address] Electrolyte Balance 8.0 mEq/L Normal 4.0-15.0 [facility] Comment on above: Performed By: #### A DIFF, LIPID, CBC, ANEU, BMP, GFR ####[address] [address] Glucose [Mass/Vol] 117 mg/dL High 83-110 [facility] Comment on above: Performed By: #### A DIFF, LIPID, CBC, ANEU, BMP, GFR ####[address] [address] Potassium [Moles/Vol] 4.7 mmol/L Normal 3.5-5.1 [facility] Comment on above: Performed By: #### A DIFF, LIPID, CBC, ANEU, BMP, GFR ####[address] [address] Sodium [Moles/Vol] 142 mmol/L Normal 136-145 [facility] Comment on above: Performed By: #### A DIFF, LIPID, CBC, ANEU, BMP, GFR ####[address] [address] Urea nitrogen [Mass/Vol] 13 mg/dL Normal 7-18 [facility] Comment on above: Performed By: #### A DIFF, LIPID, CBC, ANEU, BMP, GFR ####[address] [address] CBCon 01-21-2024 Erythrocyte distribution width (RBC) [Ratio] 16.9 % High 11.5-15.5 [facility] Comment on above: Performed By: #### A DIFF, LIPID, CBC, ANEU, BMP, GFR #### [place] [address] Hematocrit (Bld) [Volume fraction] 32.0 % Low 34.0-46.0 [facility] Comment on above: Performed By: #### A DIFF, LIPID, CBC, ANEU, BMP, GFR #### [place] [address] Hgb 10.3 G/dL Low 12.0-16.0 [facility] Comment on above: Performed By: #### A DIFF, LIPID, CBC, ANEU, BMP, GFR #### [place] [address] MCH (RBC) [Entitic mass] 27.2 pg Normal 27.0-33.0 [facility] Comment on above: Performed By: #### A DIFF, LIPID, CBC, ANEU, BMP, GFR #### [address] [address] MCHC 32.1 G/dL Normal 32.0-36.0 [facility] Comment on above: Performed By: #### A DIFF, LIPID, CBC, ANEU, BMP, GFR #### [address] [address] MCV (RBC) [Entitic vol] 84.8 fL Normal 80.0-99.0 [facility] Comment on above: Performed By: #### A DIFF, LIPID, CBC, ANEU, BMP, GFR #### [address] [address] Platelet 415 10 3/mcL Normal 150-450 [facility] Comment on above: Performed By: #### A DIFF, LIPID, CBC, ANEU, BMP, GFR #### [facility] [address] [place], [place] [address] Platelet mean volume (Bld) [Entitic vol] 7.7 fL Normal 6.6-10.5 [facility] Comment on above: Performed By: #### A DIFF, LIPID, CBC, ANEU, BMP, GFR #### [address] [place], [place] [address] RBC 3.77 10 6/mcL Low 4.10-5.30 [facility] Comment on above: Performed By: #### A DIFF, LIPID, CBC, ANEU, BMP, GFR #### [address] [place], [place] [address] WBC 9.2 10 3/mcL Normal 4.5-10.8 [facility] Comment on above: Performed By: #### A DIFF, LIPID, CBC, ANEU, BMP, GFR #### [address] [place], [place] [address] LABORATORYOrdered By: Germaine Travis on 01-21-2024 Blood Glucose Testing Reason Routine (01/21/24 12:26 PM) [facility] Work Phone: Glucose [Mass/Vol] 124 mg/dL High 82 - 115 mg/dL [facility] Work Phone: Blood Glucose Testing Reason Routine (01/21/24 7:56 AM) [facility] Work Phone: Glucose [Mass/Vol] 114 mg/dL Normal 82 - 115 mg/dL [facility] Work Phone: LABORATORYOrdered By: SYSTEM SYSTEM on 01-21-2024 Basophils (Bld) [#/Vol] 0.1 103/mcL Normal 0.0 - 0.2 10^3/mcL AO Workflow SS Basophils/100 WBC (Bld) 0.7 % Normal 0.0 - 2.5 % AO Workflow SS Calcium [Mass/Vol] 8.8 mg/dL Normal 8.4 - 10. 2 mg/dL AO ADM SS Chloride [Moles/Vol] 105 mmol/L Normal 98 - 10 7 mmol/L AO ADM SS CO2 [Moles/Vol] 29 mmol/L Normal 23 - 31 mmol/L AO ADM SS Creatinine [Mass/Vol] 0.74 mg/dL Normal 0.55 - 1.02 mg/dL AO ADM SS Comment on above: Interpretive Data: T esting performed on Siemens Dimension EXL analyzer using a modified kinetic Britany technique. Electrolyte Balance 8.0 mEq/L Normal 4.0 - 15 .0 mEq/L AO ADM SS Eosinophil, Absolute 0.0 103/mcL Normal 0.0 - 0 .7 10^3/mcL AO Workflow SS Eosinophils/100 WBC (Bld) 0.0 % Normal 0.0 - 7.0 % AO Workflow SS Erythrocyte distribution width (RBC) [Ratio] 16.9 % High 11.5 - 15.5 % AO Workflow SS GFR/1.73 sq M.predicted among blacks MDRD (S/P/Bld) [Vol rate/Area] 92 ml/min/1.73sqm Invalid Interpretation Code AO Chemistry S Comment on above: Interpretive Data: GFR Population mean for , Non- Americans Ages 20-29 = 116 mL/min/1.73 sq.m. Ages 30-39 = 107 mL/min/1.73 sq.m. Ages 40-49 = 99 mL/min/1.73 sq.m. Ages 50-59 = 93 mL/min/1.73 sq.m. Ages 60-69 = 85 mL/min/1.73 sq.m. Ages 70+ = 75 mL/min/1.73 sq.m. Chronic Kidney Disease: Less than 60 mL/min/1.73 square meters End Stage Renal Disease: Less than 15 mL/min/1.73 square meters GFR/1.73 sq M.predicted among non-blacks MDRD (S/P/Bld) [Vol rate/Area] 76 ml/min/1.73sqm Invalid Interpretation Code AO Chemistry S Comment on above: Interpretive Data: GFR Population mean for , Non- Americans Ages 20-29 = 116 mL/min/1.73 sq.m. Ages 30-39 = 107 mL/min/1.73 sq.m. Ages 40-49 = 99 mL/min/1.73 sq.m. Ages 50-59 = 93 mL/min/1.73 sq.m. Ages 60-69 = 85 mL/min/1.73 sq.m. Ages 70+ = 75 mL/min/1.73 sq.m. Chronic Kidney Disease: Less than 60 mL/min/1.73 square meters End Stage Renal Disease: Less than 15 mL/min/1.73 square meters Glucose [Mass/Vol] 117 mg/dL High 83 - 110 mg/dL AO ADM SS Hematocrit (Bld) [Volume fraction] 32.0 % Low 34.0 - 46.0 % AO Workflow SS Hemoglobin (Bld) [Mass/Vol] 10.3 G/dL Low 12.0 - 16.0 G/dL AO Workflow SS Lymphocytes (Bld) [#/Vol] 0.4 103/mcL Low 0.9 - 4.3 10^3/mcL AO Workflow SS Lymphocytes/100 WBC (Bld) 4.4 % Low 20.0 - 40.0 % AO Workflow SS MCH (RBC) [Entitic mass] 27.2 pg Normal 27.0 - 33.0 pg AO Workflow SS MCHC 32.1 G/dL Normal 32.0 - 36.0 G/dL AO Workflow SS MCV (RBC) [Entitic vol] 84.8 fL Normal 80.0 - 99.0 fL AO Workflow SS Monocytes (Bld) [#/Vol] 0.3 103/mcL Normal 0.1 - 1.4 10^3/mcL AO Workflow SS Monocytes/100 WBC (Bld) 3.8 % Normal 2.0 - 13.0 % AO Workflow SS Neutrophils (Bld) [#/Vol] 8.4 103/mcL High 2.3 - 8.1 10^3/mcL AO Workflow SS Neutrophils/100 WBC (Bld) 91.1 % High 50.0 - 75.0 % AO Workflow SS Platelet mean volume (Bld) [Entitic vol] 7.7 fL Normal 6.6 - 10.5 fL AO Workflow SS Platelets (Bld) [#/Vol] 415 103/mcL Normal 150 - 450 10^3/mcL AO Workflow SS Potassium [Moles/Vol] 4.7 mmol/L Normal 3.5 - 5.1 mmol/L AO ADM SS RBC (Bld) [#/Vol] 3.77 106/mcL Low 4.10 - 5.3 0 10^6/mcL AO Workflow SS Sodium [Moles/Vol] 142 mmol/L Normal 136 - 145 mmol/L AO ADM SS Urea nitrogen [Mass/Vol] 13 mg/dL Normal 7 - 18 mg/dL AO ADM SS Urea nitrogen/Creatinine [Mass ratio] 18 ratio Normal 7 - 27 ratio AO ADM SS WBC (Bld) [#/Vol] 9.2 103/mcL Normal 4.5 - 10.8 10^3/mcL AO Workflow SS LABORATORYOrdered By: Aminah Trivedi on 01-21-2024 Cholesterol [Mass/Vol] 114 mg/dL Normal 0 - 2 00 mg/dL AO ADM SS Comment on above: Interpretive Data: C holesterol Reference Interval: Less than 200 Desirable 200-239 Borderline high risk 240 and above High risk Cholesterol in HDL [Mass/Vol] 42 mg/dL Normal 40 - 60 mg/dL AO ADM SS Cholesterol in LDL [Mass/Vol] 53 mg/dL Normal 0 - 130 mg/dL AO ADM SS Triglyceride [Mass/Vol] 97 mg/dL Normal 0 - 150 mg/dL AO ADM SS Comment on above: Interpretive Data: T riglyceride Reference Interval: Less than 150 Normal 150-199 Borderline high risk 200-499 High risk 500 or higher Very high risk LABORATORYOrdered By: Bhavani Alamo on 01-21-2024 Appearance (U) Slightly Cloudy *ABN* (01/21/24 12:26 AM) Invalid Interpretation Code Clear AO Auto Urine SS Bacteria LM.HPF (Urine sed) [#/Area] 2 /[HPF] Invalid Interpretation Code AO Auto Urine SS Bilirubin Ql (U) Negative (01/21/24 12:26 AM) Normal Negative AO Auto Urine SS Color (U) Yellow (01/21/24 12:26 AM) Normal AO Auto Urine SS Glucose Test strip (U) [Mass/Vol] >=1000 mg/dL Invalid Interpretation Code Negative AO Auto Urine SS Hemoglobin Auto test strip (U) [Mass/Vol] Negative (01/21/24 12:26 AM) Normal Negative AO Auto Urine SS Ketones Ql (U) 15 mg/dL Invalid Interpretation Code Negative AO Auto Urine SS UA Leuk Est Small *ABN* (01/21/24 12:26 AM) Invalid Interpretation Code Negative AO Auto Urine SS UA Nitrite Positive *ABN* (01/21/24 12:26 AM) Invalid Interpretation Code Negative AO Auto Urine SS UA pH 5.0 (01/21/24 12:26 AM) Normal 5.0 - 8.0 AO Auto Urine SS UA Protein Negative Normal Negative AO Auto Urine SS UA RBC 0-5 /HPF Invalid Interpretation Code None Seen AO Auto Urine SS UA Spec Grav <=1.005 *ABN* (01/21/24 12:26 AM) Invalid Interpretation Code 1.015-1.025 AO Auto Urine SS UA Specimen Type Clean Catch (01/21/24 12:26 AM) Normal AO Auto Urine SS UA Squam Epithelial 10-15 /HPF Invalid Interpretation Code None Seen AO Auto Urine SS UA Urobilinogen 0.2 E.U./dL Normal 0.2-1.0 AO Auto Urine SS WBC LM.HPF (Urine sed) [#/Area] LOADED /HPF Invalid Interpretation Code None Seen AO Auto Urine SS LIPIDon 01-21-2024 Cholesterol [Mass/Vol] 114 mg/dL Normal 0-200 [facility] Comment on above: Result Comment: Chol esterol Reference Interval: Less than 200 Desirable 200-239 Borderline high risk 240 and above High risk Performed By: #### A DIFF, LIPID, CBC, ANEU, BMP, GFR ####[id number] [place], [place] [address] Cholesterol in HDL [Mass/Vol] 42 mg/dL Normal 40-60 [facility] Comment on above: Performed By: #### A DIFF, LIPID, CBC, ANEU, BMP, GFR ####[id number] [place], [place] [address] Cholesterol in LDL [Mass/Vol] 53 mg/dL Normal 0-130 [facility] Comment on above: Performed By: #### A DIFF, LIPID, CBC, ANEU, BMP, GFR ####[id number] [place], [place] [address] Triglyceride [Mass/Vol] 97 mg/dL Normal 0-150 [facility] Comment on above: Result Comment: Trig lyceride Reference Interval: Less than 150 Normal 150-199 Borderline high risk 200-499 High risk 500 or higher Very high risk Performed By: #### A DIFF, LIPID, CBC, ANEU, BMP, GFR ####[id number] [place], [place] [address] MRI BRAIN W/O CONTRASTon MRI BRAIN W/O CONTRAST ORIGINAL EXAMINATION: MRI OF THE BRAIN WITHOUT EKSFJPJQ24/15/2024 11:27 am MR BRAIN W/O CONTRAST TECHNIQUE: Multiplanar multisequence MRI of the brain was performed without the administration of intravenous contrast. Sagittal T1, axial FLAIR, T2 and diffusion-weighted images of the brain with ADC maps. COMPARISON: 01/20/2024 CT head noncontrast and angiography HISTORY: ORDERING SYSTEM PROVIDED HISTORY: Reason for Exam: stroke/ataxia FINDINGS: Diffusion imaging shows no hyperacute, acute, or early subacute infarction. Scattered FLAIR hyperintensities in the cerebral white matter are nonspecific but statistically most consistent with mild chronic microvascular angiopathy. Posterior aspect right occipital lobe, small bilateral right greater than left posterior cerebellum areas of encephalomalacia. Partially empty sella. Bilateral globus pallidus calcifications. There is no mass or mass-effect. There is mild cerebral volume loss with commensurate ventricular and sulcal enlargement. There are normal signal voids in the larger intracranial vessels. Paranasal sinuses are clear. The mastoid air cells are clear. The marrow signal pattern is within normal limits. 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 No evidence of hyperacute, acute, or early subacute infarction Mild chronic microvascular angiopathy with Mild age related brain parenchymal volume loss. I have personally reviewed the images of this examination and agree with the resident's findings and interpretation. Interpreted by: Bulmaro Bettencourt Preliminary Report By: Mack Jovel Electronically signed By Bulmaro Bettencourt Dictated Date: 01/21/2024 11:32:46 AM Prelim Date: 01/21/2024 11:45:49 AM Sign Date: 01/21/2024 11:45:49 AM Ordering Provider: ROMULO RAI Normal [facility] No Panel Informationon 01-20 Microscopic examination of blood, culture Culture has been received in lab and is no growth to date. Routine cultures are held for 5 days. [facility] Work Phone: UAon 01-21-2024 Color (U) Yellow Normal [facility] Comment on above: Performed By: #### U GONZALO Ureña ####[place] [address] Glucose (U) [Mass/Vol] mg/dL Abnormal Negative [facility] Comment on above: Performed By: #### U A, UAMICAO ####Shashank [address] [place] [address] Ketones Ql (U) 15 mg/dL Abnormal Negative [facility] Comment on above: Performed By: #### U A, UAMICAO ####Shashank [place] [address] UA Appear Slightly Cloudy Abnormal Clear [facility] Comment on above: Performed By: #### U A, UAMICAO ####Shashank [address] [place] [address] UA Blood Negative Normal Negative [facility] Comment on above: Performed By: #### U A, UAMICAO ####Shashank [address] [address] UA Leuk Est Small Abnormal Negative [facility] Comment on above: Performed By: #### U A, UAMICAO ####Shashank [address] [address] UA Nitrite Positive Abnormal Negative [facility] Comment on above: Performed By: #### U A, UAMICAO ####Shashank [address] [address] UA pH 5.0 Normal 5.0 - 8.0 [facility] Comment on above: Performed By: #### U A, UAMICAO ####[place] [address] UA Protein Negative Normal Negative [facility] Comment on above: Performed By: #### U A, UAMICAO ####Shashank [address] [place] [address] UA Spec Grav <=1.005 Abnormal 1.015-1.025 [facility] Comment on above: Performed By: #### U A, UAMICAO ####Shashank [address] [address] UA Specimen Type Clean Catch Normal [facility] Comment on above: Performed By: #### U A, UAMICAO ####[address] [place], [place] [address] UA Urobilinogen 0.2 E.U./dL Normal 0.2-1.0 [facility] Comment on above: Performed By: #### U A, UAMICAO ####[address] [place], [place] [address] Urobilinogen (U) [Mass/Vol] Negative Normal Negative [facility] Comment on above: Performed By: #### U A UAMICAO ####[facility] [place], [place] [address] .Auto Diffon 01-20-2024 Basophil, Absolute 0.0 10 3/mcL Normal 0.0-0.2 [facility] Comment on above: Performed By: #### C MP, TROPHS, LIP, CBC, GFR, MDW, MG, ADIFF, ANEU ####[facility] [place], [place] [address] Basophils/100 WBC (Bld) 0.2 % Normal 0.0-2.[address] [facility] Comment on above: Performed By: #### C MP, TROPHS, LIP, CBC, GFR, MDW, MG, ADIFF, ANEU ####[facility] [place], [place] [address] Eosinophil, Absolute 0.0 10 3/mcL Normal 0.0-0.7 [facility] Comment on above: Performed By: #### C MP, TROPHS, LIP, CBC, GFR, MDW, MG, ADIFF, ANEU ####[facility] [place], [place] [address] Eosinophils/100 WBC (Bld) 0.1 % Normal 0.0-7.0 [facility] Comment on above: Performed By: #### C MP, TROPHS, LIP, CBC, GFR, MDW, MG, ADIFF, ANEU ####[facility] [place], [place] [address] Lymphocyte, Absolute 0.6 10 3/mcL Low 0.9-4.3 [facility] Comment on above: Performed By: #### C MP, TROPHS, LIP, CBC, GFR, MDW, MG, ADIFF, ANEU ####[address] [place], [place] [address] Lymphocytes/100 WBC (Bld) 3.3 % Low 20.0-40.0 [facility] Comment on above: Performed By: #### C MP, TROPHS, LIP, CBC, GFR, MDW, MG, ADIFF, ANEU ####[address] [place], [place] [address] Monocyte, Absolute 0.7 10 3/mcL Normal 0.1-1.4 [facility] Comment on above: Performed By: #### C MP, TROPHS, LIP, CBC, GFR, MDW, MG, ADIFF, ANEU ####[address] [address] Monocytes/100 WBC (Bld) 4.1 % Normal 2.0-13.0 [facility] Comment on above: Performed By: #### C MP, TROPHS, LIP, CBC, GFR, MDW, MG, ADIFF, ANEU ####[address] [place], [place] [address] Neutrophils/100 WBC (Bld) 92.3 % High 50.0-75.0 [facility] Comment on above: Performed By: #### C MP, TROPHS, LIP, CBC, GFR, MDW, MG, ADIFF, ANEU ####[address] [address] .GFRon 01-20-2024 GFR 91 ml/min/1.73sqm Normal [facility] Comment on above: Result Comment: GFR Population mean for , Non- Americans Ages 20-29 = 116 mL/min/1.73 sq.m. Ages 30-39 = 107 mL/min/1.73 sq.m. Ages 40-49 = 99 mL/min/1.73 sq.m. Ages 50-59 = 93 mL/min/1.73 sq.m. Ages 60-69 = 85 mL/min/1.73 sq.m. Ages 70+ = 75 mL/min/1.73 sq.m. Chronic Kidney Disease: Less than 60 mL/min/1.73 square meters End Stage Renal Disease: Less than 15 mL/min/1.73 square meters Performed By: #### C MP, TROPHS, LIP, CBC, GFR, MDW, MG, ADIFF, ANEU ####[address] [place], [place] [address] GFR Non- 75 ml/min/1.73sqm Normal [facility] Comment on above: Result Comment: GFR Population mean for , Non- Americans Ages 20-29 = 116 mL/min/1.73 sq.m. Ages 30-39 = 107 mL/min/1.73 sq.m. Ages 40-49 = 99 mL/min/1.73 sq.m. Ages 50-59 = 93 mL/min/1.73 sq.m. Ages 60-69 = 85 mL/min/1.73 sq.m. Ages 70+ = 75 mL/min/1.73 sq.m. Chronic Kidney Disease: Less than 60 mL/min/1.73 square meters End Stage Renal Disease: Less than 15 mL/min/1.73 square meters Performed By: #### C MP, TROPHS, LIP, CBC, GFR, MDW, MG, ADIFF, ANEU ####[address] [place], [place] [address] .MDWon 01-20-2024 Monocyte Distribution Width 20.42 High 0.00-20.00 [facility] Comment on above: Result Comment: For adults in ED, MDW>20.0 may be associated with a higher risk of sepsis during the first 12hrs of hospital admission The predictive value of MDW for identifying sepsis in patients with hematological abnormalities has not been established Performed By: #### C MP, TROPHS, LIP, CBC, GFR, MDW, MG, ADIFF, ANEU ####[address] [place], [place] [address] .NEUABSon 01-20-2024 Neutrophil, Absolute 16.1 10 3/mcL High 2.3-8.[address] [facility] Comment on above: Performed By: #### C MP, TROPHS, LIP, CBC, GFR, MDW, MG, ADIFF, ANEU ####[address] [address] CBCon 01-20-2024 Erythrocyte distribution width (RBC) [Ratio] 16.8 % High 11.5-15.5 [facility] Comment on above: Performed By: #### C MP, TROPHS, LIP, CBC, GFR, MDW, MG, ADIFF, ANEU ####Shashank [address] [address] Hematocrit (Bld) [Volume fraction] 38.3 % Normal 34.0-46.0 [facility] Comment on above: Performed By: #### C MP, TROPHS, LIP, CBC, GFR, MDW, MG, ADIFF, ANEU ####[place] [address] Hgb 12.1 G/dL Normal 12.0-16.0 [facility] Comment on above: Performed By: #### C MP, TROPHS, LIP, CBC, GFR, MDW, MG, ADIFF, ANEU ####[address] [address] MCH (RBC) [Entitic mass] 26.8 pg Low 27.0-33.0 [facility] Comment on above: Performed By: #### C MP, TROPHS, LIP, CBC, GFR, MDW, MG, ADIFF, ANEU ####[address] [address] MCHC 31.6 G/dL Low 32.0-36.0 [facility] Comment on above: Performed By: #### C MP, TROPHS, LIP, CBC, GFR, MDW, MG, ADIFF, ANEU ####Shashank [place] [id number] MCV (RBC) [Entitic vol] 84.9 fL Normal 80.0-99.0 [facility] Comment on above: Performed By: #### C MP, TROPHS, LIP, CBC, GFR, MDW, MG, ADIFF, ANEU ####Sh[address]ank [address] [place], [place] [address] Platelet 465 10 3/mcL High 150-450 [facility] Comment on above: Performed By: #### C MP, TROPHS, LIP, CBC, GFR, MDW, MG, ADIFF, ANEU ####[address]ank [address] [place], [place] [address] Platelet mean volume (Bld) [Entitic vol] 7.9 fL Normal 6.6-10.5 [facility] Comment on above: Performed By: #### C MP, TROPHS, LIP, CBC, GFR, MDW, MG, ADIFF, ANEU ####Shashank [address] [place], [place] [address] RBC 4.51 10 6/mcL Normal 4.10-5.30 [facility] Comment on above: Performed By: #### C MP, TROPHS, LIP, CBC, GFR, MDW, MG, ADIFF, ANEU ####Shashank [address] [place], [place] [address] WBC 17.5 10 3/mcL High 4.5-10.8 [facility] Comment on above: Performed By: #### C MP, TROPHS, LIP, CBC, GFR, MDW, MG, ADIFF, ANEU ####[address] [place], [place] [address] CMPon 01-20-2024 Albumin Level 3.5 G/dL Normal 3.4-4.8 [facility] Comment on above: Order Comment: 01/19 21:34:04 EST hemolyzed; called to Jacqueline. EH Performed By: #### C MP, TROPHS, LIP, CBC, GFR, MDW, MG, ADIFF, ANEU ####[address] [place], [place] [address] Albumin/Globulin [Mass ratio] 1.3 {ratio} Normal 1.1-2.5 [facility] Comment on above: Order Comment: 01/19 21:34:04 EST hemolyzed; called to Jacqueline. EH Performed By: #### C MP, TROPHS, LIP, CBC, GFR, MDW, MG, ADIFF, ANEU ####Shashank [address] [place], [place] [address] ALP [Catalytic activity/Vol] 78 U/L Normal 40-135 [facility] Comment on above: Order Comment: 01/19 21:34:04 EST hemolyzed; called to Jacqueline. EH Performed By: #### C MP, TROPHS, LIP, CBC, GFR, MDW, MG, ADIFF, ANEU ####Shashank [address] [place], [place] [address] ALT [Catalytic activity/Vol] 20 U/L Normal 14-59 [facility] Comment on above: Order Comment: 01/19 21:34:04 EST hemolyzed; called to Jacqueline. EH Performed By: #### C MP, TROPHS, LIP, CBC, GFR, MDW, MG, ADIFF, ANEU ####[address] [place], [place] [address] AST [Catalytic activity/Vol] 14 U/L Normal 10-40 [facility] Comment on above: Order Comment: 01/19 21:34:04 EST hemolyzed; called to Jacqueline. EH Performed By: #### C MP, TROPHS, LIP, CBC, GFR, MDW, MG, ADIFF, ANEU ####[facility] [place], [place] [address] Bili Total 0.8 mg/dL Normal 0.2-1.0 [facility] Comment on above: Order Comment: 01/19 21:34:04 EST hemolyzed; called to Jacqueline. EH Result Comment: Use of this assay is not recommended for patients undergoing treatment with eltrombopag due to the potential for falsely elevated results. Performed By: #### C MP, TROPHS, LIP, CBC, GFR, MDW, MG, ADIFF, ANEU ####Shashank [address] [place], [place] [address] BUN/Creatinine Ratio 19 ratio Normal 7-27 [facility] Comment on above: Order Comment: 01/19 21:34:04 EST hemolyzed; called to Jacqueline. EH Performed By: #### C MP, TROPHS, LIP, CBC, GFR, MDW, MG, ADIFF, ANEU ####[address] [place], [place] [address] Calcium [Mass/Vol] 9.2 mg/dL Normal 8.4-10.2 [facility] Comment on above: Order Comment: 01/19 21:34:04 EST hemolyzed; called to Jacqueline. EH Performed By: #### C MP, TROPHS, LIP, CBC, GFR, MDW, MG, ADIFF, ANEU ####[address] [place], [place] [address] Chloride [Moles/Vol] 106 mmol/L Normal 98-107 [facility] Comment on above: Order Comment: 01/19 21:34:04 EST hemolyzed; called to Jacqueline. EH Performed By: #### C MP, TROPHS, LIP, CBC, GFR, MDW, MG, ADIFF, ANEU ####[address] [place], [place] [address] CO2 [Moles/Vol] 27 mmol/L Normal 23-31 [facility] Comment on above: Order Comment: 01/19 21:34:04 EST hemolyzed; called to Jacqueline. EH Performed By: #### C MP, TROPHS, LIP, CBC, GFR, MDW, MG, ADIFF, ANEU ####[address] [place], [place] [address] Creatinine [Mass/Vol] 0.75 mg/dL Normal 0.55-1.02 [facility] Comment on above: Order Comment: 01/19 21:34:04 EST hemolyzed; called to Jacqueline. EH Result Comment: Test ing performed on Siemens Dimension EXL analyzer using a modified kinetic Britany technique. Performed By: #### C MP, TROPHS, LIP, CBC, GFR, MDW, MG, ADIFF, ANEU ####[address] [place], [place] [address] Electrolyte Balance 10.0 mEq/L Normal 4.0-15.0 [facility] Comment on above: Order Comment: 01/19 21:34:04 EST hemolyzed; called to Jacqueline. EH Performed By: #### C MP, TROPHS, LIP, CBC, GFR, MDW, MG, ADIFF, ANEU ####Shashank [address] [place], [place] [address] Globulin 2.7 G/dL Normal [facility] Comment on above: Order Comment: 01/19 21:34:04 EST hemolyzed; called to Jacqueline. EH Performed By: #### C MP, TROPHS, LIP, CBC, GFR, MDW, MG, ADIFF, ANEU ####Shashank [address] [place], [place] [address] Glucose [Mass/Vol] 191 mg/dL High 83-110 [facility] Comment on above: Order Comment: 01/19 21:34:04 EST hemolyzed; called to Jacqueline. EH Performed By: #### C MP, TROPHS, LIP, CBC, GFR, MDW, MG, ADIFF, ANEU ####Shashank [address] [place], [place] [address] Potassium [Moles/Vol] 4.0 mmol/L Normal 3.5-5.1 [facility] Comment on above: Order Comment: 01/19 21:34:04 EST hemolyzed; called to Jacqueline. EH Performed By: #### C MP, TROPHS, LIP, CBC, GFR, MDW, MG, ADIFF, ANEU ####Shashank [address] [place], [place] [address] Sodium [Moles/Vol] 143 mmol/L Normal 136-145 [facility] Comment on above: Order Comment: 01/19 21:34:04 EST hemolyzed; called to Jacquleine. EH Performed By: #### C MP, TROPHS, LIP, CBC, GFR, MDW, MG, ADIFF, ANEU ####Shashank [address] [place], [place] [address] Total Protein 6.2 G/dL Low 6.4-8.2 [facility] Comment on above: Order Comment: 01/19 21:34:04 EST hemolyzed; called to Jacqueline. EH Performed By: #### C MP, TROPHS, LIP, CBC, GFR, MDW, MG, ADIFF, ANEU ####[facility] [place], [place] [address] Urea nitrogen [Mass/Vol] 14 mg/dL Normal 7-18 [facility] Comment on above: Order Comment: 01/19 21:34:04 EST hemolyzed; called to Jacqueline. EH Performed By: #### C MP, TROPHS, LIP, CBC, GFR, MDW, MG, ADIFF, ANEU ####Shashank [address] [place], [place] [address] CT ANGIOGRAPHY HEAD W/ CONTR Igor 01-20-2024 CT ANGIOGRAPHY HEAD W/ CONTRAST ORIGINAL EXAMINATION: CTA OF THE NECK; CTA OF THE HEAD WITH CONTRAST 01/20/2024 11:10 pm: TECHNIQUE: CTA of the neck was performed with the administration of intravenous contrast. Multiplanar reformatted images are provided for review. MIP images are provided for review. Stenosis of the internal carotid arteries measured using NASCET criteria. Automated exposure control, iterative reconstruction, and/or weight based adjustment of the mA/kV was utilized to reduce the radiation dose to as low as reasonably achievable.; CTA of the head/brain was performed with the administration of intravenous contrast. Multiplanar reformatted images are provided for review. MIP images are provided for review. Automated exposure control, iterative reconstruction, and/or weight based adjustment of the mA/kV was utilized to reduce the radiation dose to as low as reasonably achievable. COMPARISON: Concurrent CT head without contrast. HISTORY: ORDERING SYSTEM PROVIDED HISTORY: Reason for Exam: Stroke Emergency FINDINGS: CTA NECK: AORTIC ARCH/ARCH VESSELS: No dissection or arterial injury. No significant stenosis of the brachiocephalic or subclavian arteries. CAROTID ARTERIES: Atherosclerotic changes and tortuosity without dissection, arterial injury, or hemodynamically significant stenosis by NASCET criteria. VERTEBRAL ARTERIES: Slight left dominant. No dissection, arterial injury, or significant stenosis. SOFT TISSUES: The lung apices are clear. No cervical or superior mediastinal lymphadenopathy. The larynx and pharynx are unremarkable. 1.6 cm left thyroid nodule. BONES: No acute osseous abnormality. CTA HEAD: ANTERIOR CIRCULATION: Atherosclerotic changes without significant stenosis of the intracranial internal carotid, anterior cerebral, or middle cerebral arteries. No aneurysm. POSTERIOR CIRCULATION: Atherosclerotic changes without significant stenosis of the vertebral, basilar, or posterior cerebral arteries. No aneurysm. OTHER: No dural venous sinus thrombosis on this non-dedicated study. IMPRESSION: 1. Atherosclerotic changes without evidence of large vessel occlusion or flow-limiting stenosis. 2. Incidental 1.6 cm left thyroid lobe nodule. Follow-up with nonemergent ultrasound is recommended if not previously performed. Interpreted by: Adonis Christie Preliminary Report By: Adonis Christie Electronically signed By Adonis Christie Dictated Date: 01/20/2024 11:11:23 PM Prelim Date: 01/20/2024 11:16:50 PM Sign Date: 01/20/2024 11:16:50 PM Ordering Provider: SHAWN LEE [facility] CT ANGIOGRAPHY NECK W/CONTRA Armandon 01-20-2024 CT ANGIOGRAPHY NECK W/CONTRAST ORIGINAL EXAMINATION: CTA OF THE NECK; CTA OF THE HEAD WITH CONTRAST 01/20/2024 11:10 pm: TECHNIQUE: CTA of the neck was performed with the administration of intravenous contrast. Multiplanar reformatted images are provided for review. MIP images are provided for review. Stenosis of the internal carotid arteries measured using NASCET criteria. Automated exposure control, iterative reconstruction, and/or weight based adjustment of the mA/kV was utilized to reduce the radiation dose to as low as reasonably achievable.; CTA of the head/brain was performed with the administration of intravenous contrast. Multiplanar reformatted images are provided for review. MIP images are provided for review. Automated exposure control, iterative reconstruction, and/or weight based adjustment of the mA/kV was utilized to reduce the radiation dose to as low as reasonably achievable. COMPARISON: Concurrent CT head without contrast. HISTORY: ORDERING SYSTEM PROVIDED HISTORY: Reason for Exam: Stroke Emergency FINDINGS: CTA NECK: AORTIC ARCH/ARCH VESSELS: No dissection or arterial injury. No significant stenosis of the brachiocephalic or subclavian arteries. CAROTID ARTERIES: Atherosclerotic changes and tortuosity without dissection, arterial injury, or hemodynamically significant stenosis by NASCET criteria. VERTEBRAL ARTERIES: Slight left dominant. No dissection, arterial injury, or significant stenosis. SOFT TISSUES: The lung apices are clear. No cervical or superior mediastinal lymphadenopathy. The larynx and pharynx are unremarkable. 1.6 cm left thyroid nodule. BONES: No acute osseous abnormality. CTA HEAD: ANTERIOR CIRCULATION: Atherosclerotic changes without significant stenosis of the intracranial internal carotid, anterior cerebral, or middle cerebral arteries. No aneurysm. POSTERIOR CIRCULATION: Atherosclerotic changes without significant stenosis of the vertebral, basilar, or posterior cerebral arteries. No aneurysm. OTHER: No dural venous sinus thrombosis on this non-dedicated study. IMPRESSION: 1. Atherosclerotic changes without evidence of large vessel occlusion or flow-limiting stenosis. 2. Incidental 1.6 cm left thyroid lobe nodule. Follow-up with nonemergent ultrasound is recommended if not previously performed. Interpreted by: Adonis Christie Preliminary Report By: Adonis Christie Electronically signed By Adonis Christie Dictated Date: 01/20/2024 11:11:23 PM Prelim Date: 01/20/2024 11:16:50 PM Sign Date: 01/20/2024 11:16:50 PM Ordering Provider: SHAWN LEE [facility] CT HEAD OR BRAIN W/O CONTRAS Ton 01-20-2024 CT HEAD OR BRAIN W/O CONTRAST ORIGINAL EXAMINATION: CT OF THE HEAD WITHOUT CONTRAST 01/20/2024 9:58 pm TECHNIQUE: CT of the head was performed without the administration of intravenous contrast. Automated exposure control, iterative reconstruction, and/or weight based adjustment of the mA/kV was utilized to reduce the radiation dose to as low as reasonably achievable. COMPARISON: None. HISTORY: ORDERING SYSTEM PROVIDED HISTORY: Reason for Exam: patient states she is having nausea and vomiting that began after supper this evening. pt also endorses dizziness. pt states she just got back from a cruise today headache, vomiting FINDINGS: BRAIN/VENTRICLES: Macias-white interface loss is appreciated within the medial right occipital lobe with additional punctate foci of cytotoxic edema within the right inferior and left superior cerebellar hemispheres. No acute intracranial hemorrhage. No mass effect or midline shift. There are nonspecific hypoattenuating foci in the subcortical and periventricular white matter that most likely represent chronic microangiopathic ischemic changes in a patient of this age. Mild generalized volume loss is appreciated with associated prominence of the sulci and ventricles. ORBITS: The visualized portion of the orbits demonstrate no acute abnormality. SINUSES: The visualized paranasal sinuses and mastoid air cells demonstrate no acute abnormality. SOFT TISSUES/SKULL: No acute abnormality of the visualized skull or soft tissues. IMPRESSION: Multiple foci of macias-white interface loss including within the medial right occipital lobe, as well as bilateral cerebellar hemispheres, likely of differing ages. 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 Critical results were called by Dr. Adonis Christie to Dr. Lee On 01/20/2024 at 22:13. Interpreted by: Adonis Christie Preliminary Report By: Adonis Christie Electronically signed By Adonis Christie Dictated Date: 01/20/2024 9:59:57 PM Prelim Date: 01/20/2024 10:13:56 PM Sign Date: 01/20/2024 10:13:56 PM Ordering Provider: SHAWN LEE [facility] LABORATORYOrdered By: SYSTEM SYSTEM on 01-20-2024 Albumin BCP dye [Mass/Vol] 3.5 G/dL Normal 3.4 - 4.8 G/dL AO ADM SS Albumin/Globulin [Mass ratio] 1.3 {ratio} Normal 1.1 - 2.5 ratio AO ADM SS ALP [Catalytic activity/Vol] 78 U/L Normal 40 - 135 U/L AO ADM SS ALT With P-5'-P [Catalytic activity/Vol] 20 U/L Normal 14 - 59 U/L AO ADM SS AST With P-5'-P [Catalytic activity/Vol] 14 U/L Normal 10 - 40 U/L AO ADM SS Bilirubin [Mass/Vol] 0.8 mg/dL Normal 0.2 - 1 .0 mg/dL AO ADM SS Comment on above: Interpretive Data: U se of this assay is not recommended for patients undergoing treatment with eltrombopag due to the potential for falsely elevated results. Calcium [Mass/Vol] 9.2 mg/dL Normal 8.4 - 10. 2 mg/dL AO ADM SS Chloride [Moles/Vol] 106 mmol/L Normal 98 - 10 7 mmol/L AO ADM SS CO2 [Moles/Vol] 27 mmol/L Normal 23 - 31 mmol/L AO ADM SS Creatinine [Mass/Vol] 0.75 mg/dL Normal 0.55 - 1.02 mg/dL AO ADM SS Comment on above: Interpretive Data: T esting performed on Siemens Dimension EXL analyzer using a modified kinetic Britany technique. Electrolyte Balance 10.0 mEq/L Normal 4.0 - 15 .0 mEq/L AO ADM SS GFR/1.73 sq M.predicted among blacks MDRD (S/P/Bld) [Vol rate/Area] 91 ml/min/1.73sqm Invalid Interpretation Code AO Chemistry S Comment on above: Interpretive Data: GFR Population mean for , Non- Americans Ages 20-29 = 116 mL/min/1.73 sq.m. Ages 30-39 = 107 mL/min/1.73 sq.m. Ages 40-49 = 99 mL/min/1.73 sq.m. Ages 50-59 = 93 mL/min/1.73 sq.m. Ages 60-69 = 85 mL/min/1.73 sq.m. Ages 70+ = 75 mL/min/1.73 sq.m. Chronic Kidney Disease: Less than 60 mL/min/1.73 square meters End Stage Renal Disease: Less than 15 mL/min/1.73 square meters GFR/1.73 sq M.predicted among non-blacks MDRD (S/P/Bld) [Vol rate/Area] 75 ml/min/1.73sqm Invalid Interpretation Code AO Chemistry S Comment on above: Interpretive Data: GFR Population mean for , Non- Americans Ages 20-29 = 116 mL/min/1.73 sq.m. Ages 30-39 = 107 mL/min/1.73 sq.m. Ages 40-49 = 99 mL/min/1.73 sq.m. Ages 50-59 = 93 mL/min/1.73 sq.m. Ages 60-69 = 85 mL/min/1.73 sq.m. Ages 70+ = 75 mL/min/1.73 sq.m. Chronic Kidney Disease: Less than 60 mL/min/1.73 square meters End Stage Renal Disease: Less than 15 mL/min/1.73 square meters Globulin 2.7 G/dL Invalid Interpretation Code AO ADM SS Glucose [Mass/Vol] 191 mg/dL High 83 - 110 mg/dL AO ADM SS Lipase [Catalytic activity/Vol] 27 U/L Normal 16 - 77 U/L AO ADM SS Magnesium [Mass/Vol] 1.7 mg/dL Low 1.8 - 2 .4 mg/dL AO ADM SS Potassium [Moles/Vol] 4.0 mmol/L Normal 3.5 - 5.1 mmol/L AO ADM SS Protein [Mass/Vol] 6.2 G/dL Low 6.4 - 8.2 G/dL AO ADM SS Sodium [Moles/Vol] 143 mmol/L Normal 136 - 145 mmol/L AO ADM SS Urea nitrogen [Mass/Vol] 14 mg/dL Normal 7 - 18 mg/dL AO ADM SS Urea nitrogen/Creatinine [Mass ratio] 19 ratio Normal 7 - 27 ratio AO ADM SS Basophils (Bld) [#/Vol] 0.0 103/mcL Normal 0.0 - 0.2 10^3/mcL AO Workflow SS Basophils/100 WBC (Bld) 0.2 % Normal 0.0 - 2.5 % AO Workflow SS Eosinophil, Absolute 0.0 103/mcL Normal 0.0 - 0 .7 10^3/mcL AO Workflow SS Eosinophils/100 WBC (Bld) 0.1 % Normal 0.0 - 7.0 % AO Workflow SS Erythrocyte distribution width (RBC) [Ratio] 16.8 % High 11.5 - 15.5 % AO Workflow SS Glucose [Mass/Vol] 157 mg/dL Invalid Interpretation Code AO Chemistry S Comment on above: Interpretive Data: E stimated average glucose (eAG) is a calculated value from Hemoglobin A1C and is billing representative of the average blood glucose level in the last 2-3 month period. Normal range: less than 114 mg/dL HbA1c (Bld) [Mass fraction] 7.1 % High 4.3 - 6.4 % AO ADM SS Hematocrit (Bld) [Volume fraction] 38.3 % Normal 34.0 - 46.0 % AO Workflow SS Hemoglobin (Bld) [Mass/Vol] 12.1 G/dL Normal 12.0 - 16.0 G/dL AO Workflow SS Lymphocytes (Bld) [#/Vol] 0.6 103/mcL Low 0.9 - 4.3 10^3/mcL AO Workflow SS Lymphocytes/100 WBC (Bld) 3.3 % Low 20.0 - 40.0 % AO Workflow SS MCH (RBC) [Entitic mass] 26.8 pg Low 27.0 - 33.0 pg AO Workflow SS MCHC 31.6 G/dL Low 32.0 - 36.0 G/dL AO Workflow SS MCV (RBC) [Entitic vol] 84.9 fL Normal 80.0 - 99.0 fL AO Workflow SS Monocyte distribution width Auto (Bld) [Entitic vol] 20.42 1 High 0.00 - 20.00 AO Workflow SS Comment on above: Result Comment: For adults in ED, MDW>20.0 may be associated with a higher risk of sepsis during the first 12hrs of hospital admission The predictive value of MDW for identifying sepsis in patients with hematological abnormalities has not been established Monocytes (Bld) [#/Vol] 0.7 103/mcL Normal 0.1 - 1.4 10^3/mcL AO Workflow SS Monocytes/100 WBC (Bld) 4.1 % Normal 2.0 - 13.0 % AO Workflow SS Neutrophils (Bld) [#/Vol] 16.1 103/mcL High 2.3 - 8.1 10^3/mcL AO Workflow SS Neutrophils/100 WBC (Bld) 92.3 % High 50.0 - 75.0 % AO Workflow SS Platelet mean volume (Bld) [Entitic vol] 7.9 fL Normal 6.6 - 10.5 fL AO Workflow SS Platelets (Bld) [#/Vol] 465 103/mcL High 150 - 450 10^3/mcL AO Workflow SS RBC (Bld) [#/Vol] 4.51 106/mcL Normal 4.10 - 5.3 0 10^6/mcL AO Workflow SS Troponin I.cardiac DL <= 0.01 ng/mL [Mass/Vol] 4 ng/L Normal 0 - 51 ng/L AO ADM SS Comment on above: Interpretive Data: H igh Sensitive Troponin I Reference Ranges: Female: 0-51 ng/L Male: 0-76 ng/L Testing performed on [employer] using a homogeneous sandwich chemiluminescent immunoassay based on [employer] technology. WBC (Bld) [#/Vol] 17.5 103/mcL High 4.5 - 10.8 10^3/mcL AO Workflow SS LIPon 01-20-2024 Lipase Level 27 U/L Normal 16-77 [facility] Comment on above: Performed By: #### C MP, TROPHS, LIP, CBC, GFR, MDW, MG, ADIFF, ANEU ####[place] [address] MGon 01-20-2024 Magnesium [Mass/Vol] 1.7 mg/dL Low 1.8-2.4 [facility] Comment on above: Performed By: #### C MP, TROPHS, LIP, CBC, GFR, MDW, MG, ADIFF, ANEU ####[facility] [place], [place] [address] TROPHSon 01-20-2024 High Sensitivity Troponin I 4 ng/L Normal 0-51 [facility] Comment on above: Result Comment: High Sensitive Troponin I Reference Ranges: Female: 0-51 ng/L Male: 0-76 ng/L Testing performed on [employer] using a homogeneous sandwich chemiluminescent immunoassay based on [employer] technology. Performed By: #### C MP, TROPHS, LIP, CBC, GFR, MDW, MG, ADIFF, ANEU ####[facility] [place], [place] [address] XR CHEST 1 VIEWon 01-20-2024 XR CHEST 1 VIEW ORIGINAL EXAMINATION: ONE XRAY VIEW OF THE CHEST 01/20/2024 9:51 pm COMPARISON: None. HISTORY: ORDERING SYSTEM PROVIDED HISTORY: Reason for Exam: patient states she is having nausea and vomiting that began after supper this evening. pt also endorses dizziness. pt states she just got back from a cruise today lightheadedness FINDINGS: The lungs are without acute focal process. There is no effusion or pneumothorax. The cardiomediastinal silhouette is without acute process. The osseous structures are without acute process. IMPRESSION: No acute process. Interpreted by: Adonis Christie Preliminary Report By: Adonis Christie Electronically signed By Adonis Christie Dictated Date: 01/20/2024 9:52:23 PM Prelim Date: 01/20/2024 9:52:42 PM Sign Date: 01/20/2024 9:52:42 PM Ordering Provider: SHAWN Ambriz [facility] CNNURSEon 12-27-2023 CNNURSE Nurse Visit (FAMPWS) BRITNEY CANADA ([id number]) 1945 F Date Time Provider Department 12/27/23 1:15 PM MS NURSE JOE During your visit today, we recorded the following information about you: Agueda Sabillon LPN 12/27/2023 1:13 PM Signed Patient presents for B-12 injection. Denies any problems at this time. Patient instructed on any SE of medication, verbalized understanding and agreed to proceed with treatment. Tolerated injection well. Agueda Sabillon LPN Allergies As of Date: 12/27/2023 Noted Allergy Reaction DARVON (PROPOXYPHENE HCL) 10/11/2008 8 - GI Upset PENICILLINS 10/11/2008 2 - Rash Date Reviewed: 10/27/2023 Reviewed by: Chantale Alves MA - Fully Assessed Reason for Visit: B-12 Injection [247] Primary Visit Diagnosis:Vitamin B 12 deficiency [E53.8] Prescriptions as of 12/27/2023 - losartan (COZAAR) 50 mg tablet Take 1 tablet by mouth once daily. - metFORMIN ER (GLUCOPHAGE XR) 500 mg 24 hr tablet Take 2 tablets by mouth two times a day with meals. - empagliflozin (JARDIANCE) 25 mg tablet Take 1 tablet by mouth once daily. Take 1 tablet once daily in the morning - clopidogrel (PLAVIX) 75 mg tablet Take 1 tablet by mouth once daily. Take 75 mg by mouth once daily. - levothyroxine (LEVOXYL) 50 mcg tablet Take 1 tablet by mouth once daily. Take on empty stomach. For Thyroid - atorvastatin (LIPITOR) 80 mg tablet TAKE 1 TABLET BY MOUTH ONCE DAILY AT BEDTIME FOR CHOLESTEROL - terconazole vaginal cream (TERAZOL) 0.8 % vaginal cream Use 1 Applicator vaginally daily at bedtime. - cyanocobalamin 1,000 mcg/mL Inject 1 mL intramuscularly once every month. - blood sugar diagnostic (BLOOD GLUCOSE TEST) test strip Test blood sugar(s) 2 times daily. Dx: Type 2 DM - Uncontrolled E11.65 Insulin: No - Lancets lancets Test blood sugar(s) two times times daily. Dx: Other DM Code E11.65 Insulin: No - metoprolol tartrate, short acting, (LOPRESSOR) 25 mg tablet Take 25 mg by mouth twice daily. - apixaban (ELIQUIS) 5 mg tab(s) Take by mouth twice daily. - fluticasone (FLONASE) 50 mcg/actuation nasal spray Use 2 Sprays in each nostril once daily. Facility-Administered Medications as of 12/27/2023 - cyanocobalamin 1,000 mcg injection Problem List As Of Date 12/27/2023 Noted Resolved Type II or unspecified type diabetes mellitus w*09/25/2014 02/19/2015 Other and unspecified hyperlipidemia [E78.5] 09/25/2014 06/21/2015 Essential hypertension [I10] 09/25/2014 BMI 38.0-38.9,adult [Z68.38] 09/25/2014 11/30/2014 Other allergic rhinitis [J30.89] 09/25/2014 BMI 37.0-37.9, adult [Z68.37] 11/30/2014 Diabetes mellitus type 2 with complications (HC*02/19/2015 Uncontrolled type 2 diabetes with neuropathy (H*04/23/2015 Mixed hyperlipidemia [E78.2] 12/24/2015 Occipital stroke (HCC) [I63.9] 02/14/2020 Vision loss [H54.7] 02/14/2020 NSTEMI (non-ST elevated myocardial infarction) *02/14/2020 Paroxysmal A-fib (HCC) [I48.0] 05/15/2020 Vitamin B 12 deficiency [E53.8] 06/12/2020 Encounter Status:Closed by [facility] Nurse Visit (FAMPWS) BRITNEY CANADA ([id number]) 1945 F Date Time Provider Department 11/29/23 1:15 PM MS NURSE FAMPWS During your visit today, we recorded the following information about you: Agueda Sabillon LPN 11/29/2023 1:13 PM Signed Patient presents for B-12 injection. Denies any problems at this time. Patient instructed on any SE of medication, verbalized understanding and agreed to proceed with treatment. Tolerated injection well. Agueda JOSE Sabillon Allergies As of Date: 11/29/2023 Noted Allergy Reaction DARVON (PROPOXYPHENE HCL) 10/11/2008 8 - GI Upset PENICILLINS 10/11/2008 2 - Rash Date Reviewed: 10/27/2023 Reviewed by: Chantale Alves MA - Fully Assessed Reason for Visit: B-12 Injection [247] Primary Visit Diagnosis:Vitamin B 12 deficiency [E53.8] Prescriptions as of 11/29/2023 - losartan (COZAAR) 50 mg tablet Take 1 tablet by mouth once daily. - metFORMIN ER (GLUCOPHAGE XR) 500 mg 24 hr tablet Take 2 tablets by mouth two times a day with meals. - empagliflozin (JARDIANCE) 25 mg tablet Take 1 tablet by mouth once daily. Take 1 tablet once daily in the morning - clopidogrel (PLAVIX) 75 mg tablet Take 1 tablet by mouth once daily. Take 75 mg by mouth once daily. - levothyroxine (LEVOXYL) 50 mcg tablet Take 1 tablet by mouth once daily. Take on empty stomach. For Thyroid - atorvastatin (LIPITOR) 80 mg tablet TAKE 1 TABLET BY MOUTH ONCE DAILY AT BEDTIME FOR CHOLESTEROL - terconazole vaginal cream (TERAZOL) 0.8 % vaginal cream Use 1 Applicator vaginally daily at bedtime. - cyanocobalamin 1,000 mcg/mL Inject 1 mL intramuscularly once every month. - blood sugar diagnostic (BLOOD GLUCOSE TEST) test strip Test blood sugar(s) 2 times daily. Dx: Type 2 DM - Uncontrolled E11.65 Insulin: No - Lancets lancets Test blood sugar(s) two times times daily. Dx: Other DM Code E11.65 Insulin: No - metoprolol tartrate, short acting, (LOPRESSOR) 25 mg tablet Take 25 mg by mouth twice daily. - apixaban (ELIQUIS) 5 mg tab(s) Take by mouth twice daily. - fluticasone (FLONASE) 50 mcg/actuation nasal spray Use 2 Sprays in each nostril once daily. Facility-Administered Medications as of 11/29/2023 - cyanocobalamin 1,000 mcg injection Problem List As Of Date 11/29/2023 Noted Resolved Type II or unspecified type diabetes mellitus w*09/25/2014 02/19/2015 Other and unspecified hyperlipidemia [E78.5] 09/25/2014 06/21/2015 Essential hypertension [I10] 09/25/2014 BMI 38.0-38.9,adult [Z68.38] 09/25/2014 11/30/2014 Other allergic rhinitis [J30.89] 09/25/2014 BMI 37.0-37.9, adult [Z68.37] 11/30/2014 Diabetes mellitus type 2 with complications (HC*02/19/2015 Uncontrolled type 2 diabetes with neuropathy (H*04/23/2015 Mixed hyperlipidemia [E78.2] 12/24/2015 Occipital stroke (HCC) [I63.9] 02/14/2020 Vision loss [H54.7] 02/14/2020 NSTEMI (non-ST elevated myocardial infarction) *02/14/2020 Paroxysmal A-fib (HCC) [I48.0] 05/15/2020 Vitamin B 12 deficiency [E53.8] 06/12/2020 Encounter Status:Closed by AGUEDA SABILLON on 11/29/23 [facility] 11-01-2023 [facility] Nurse Visit (FAMPWS) BRITNEY CANADA ([id number]) 1945 F Date Time Provider Department 11/01/23 1:15 PM MS NURSE FAMPWS During your visit today, we recorded the following information about you: Agueda Sabillon LPN 11/01/2023 1:34 PM Signed Patient presents for B-12 injection. Denies any problems at this time. Patient instructed on any SE of medication, verbalized understanding and agreed to proceed with treatment. Tolerated injection well. Agueda Sabillon LPN Allergies As of Date: 11/01/2023 Noted Allergy Reaction DARVON (PROPOXYPHENE HCL) 10/11/2008 8 - GI Upset PENICILLINS 10/11/2008 2 - Rash Date Reviewed: 10/27/2023 Reviewed by: Chantale Alves MA - Fully Assessed Reason for Visit: B-12 Injection [247] Primary Visit Diagnosis:Vitamin B 12 deficiency [E53.8] Prescriptions as of 11/02/2023 - losartan (COZAAR) 50 mg tablet Take 1 tablet by mouth once daily. - metFORMIN ER (GLUCOPHAGE XR) 500 mg 24 hr tablet Take 2 tablets by mouth two times a day with meals. - empagliflozin (JARDIANCE) 25 mg tablet Take 1 tablet by mouth once daily. Take 1 tablet once daily in the morning - clopidogrel (PLAVIX) 75 mg tablet Take 1 tablet by mouth once daily. Take 75 mg by mouth once daily. - levothyroxine (LEVOXYL) 50 mcg tablet Take 1 tablet by mouth once daily. Take on empty stomach. For Thyroid - atorvastatin (LIPITOR) 80 mg tablet TAKE 1 TABLET BY MOUTH ONCE DAILY AT BEDTIME FOR CHOLESTEROL - terconazole vaginal cream (TERAZOL) 0.8 % vaginal cream Use 1 Applicator vaginally daily at bedtime. - cyanocobalamin 1,000 mcg/mL Inject 1 mL intramuscularly once every month. - blood sugar diagnostic (BLOOD GLUCOSE TEST) test strip Test blood sugar(s) 2 times daily. Dx: Type 2 DM - Uncontrolled E11.65 Insulin: No - Lancets lancets Test blood sugar(s) two times times daily. Dx: Other DM Code E11.65 Insulin: No - metoprolol tartrate, short acting, (LOPRESSOR) 25 mg tablet Take 25 mg by mouth twice daily. - apixaban (ELIQUIS) 5 mg tab(s) Take by mouth twice daily. - fluticasone (FLONASE) 50 mcg/actuation nasal spray Use 2 Sprays in each nostril once daily. Facility-Administered Medications as of 11/02/2023 - cyanocobalamin 1,000 mcg injection Problem List As Of Date 11/01/2023 Noted Resolved Type II or unspecified type diabetes mellitus w*09/25/2014 02/19/2015 Other and unspecified hyperlipidemia [E78.5] 09/25/2014 06/21/2015 Essential hypertension [I10] 09/25/2014 BMI 38.0-38.9,adult [Z68.38] 09/25/2014 11/30/2014 Other allergic rhinitis [J30.89] 09/25/2014 BMI 37.0-37.9, adult [Z68.37] 11/30/2014 Diabetes mellitus type 2 with complications (HC*02/19/2015 Uncontrolled type 2 diabetes with neuropathy (H*04/23/2015 Mixed hyperlipidemia [E78.2] 12/24/2015 Occipital stroke (HCC) [I63.9] 02/14/2020 Vision loss [H54.7] 02/14/2020 NSTEMI (non-ST elevated myocardial infarction) *02/14/2020 Paroxysmal A-fib (HCC) [I48.0] 05/15/2020 Vitamin B 12 deficiency [E53.8] 06/12/2020 Encounter Status:Closed by AGUEDA SABILLON on 11/01/23 [facility] CNOVon 10-27-2023 CNOV Office Visit (INTMWS ) MIGUELBRITNEY REBOLLAR ([id number]) 1945 F Date Time Provider Department 10/27/23 10:00 AM ASTRID MUSE INTMWS During your visit today, we recorded the following information about you: Pulse Respiration Blood pressure Weight 60/minute 16/minute 124/68 84.4 kg Astrid Muse APRN.FINISH [employer]ER 10/27/2023 11:10 AM Signed CC: Patient presents with: Recheck: 6 month follow up HPI Britney Canada is a 78 year old female who presents today for routine follow up. HTN, HLD, and paroxsymal A-fib: Ms. Canada indicates that she is feeling well and denies any symptoms referable to elevated blood pressure. Specifically denies headache, chest pain, palpitations, dyspnea, and peripheral edema. Patient denies any side effects of her medication(s) and is compliant with their regimen. She does not check BP's generally. Britney works out regularly 3 times per week with walking. She watches her diet for sodium, low fat and low cholesterol most of the time. Goes to [facility] yearly for routine exam. Last 3 Encounter BP Readings: Date: BP: 10/27/2023 124/68 04/27/2023 122/58 12/09/2022 118/56 Hypothyroidism: Taking medication as prescribed. Denies any abnormal change in weight or energy. DIABETES MELLITUS: Ms. Canada denies excessive thirst or increased frequency of urination, chest pain or dyspnea , numbness, tingling or pain in extremities, new or unusual visual symptoms, weight loss/gain, and bowel changes/loose stools. 2 weeks ago had 3 nights that she wok up dizzy but resolved when she went back to bed and woke up. No known low blood sugar readings. Follows a diabetic diet most of the time. She is compliant with medication(s) and is tolerating med(s) without any side effects. She reports checking her glucose on a once a day schedule with sugars in the fasting 120s range. Patient's last HgA1C was Hemoglobin A1C (%) Date Value 10/26/2023 7.7 04/27/2023 7.7 03/25/2021 7.9 12/06/2020 8.3 Hemoglobin A1C (POCT) (%) Date Value 09/18/2022 9.0 11/21/2021 8.0 ) Last eye exam was over a year ago. Needs to find a new one close to her. Declines a consult at this time. REVIEW OF SYSTEMS See HPI PAST MEDICAL HISTORY No date: Abnormal mammogram, unspecified No date: Diabetes mellitus without mention of complication PAST SURGICAL HISTORY 1989: CHOLECYSTECTOMY No date: RPR UMBILICAL HRNA 5 YRS/> REDUCIBLE 10/18/08: STEREOTACTIC CORE BIOPSY Comment: RIGHT BREAST ALLERGIES Darvon [Propoxyphene Hcl] and Penicillins MEDICATIONS empagliflozin (JARDIANCE) 25 mg tabletTake 1 tablet by mouth once daily. Take 1 tablet once daily in the morningDisp: 90 tabletRfl: 3 clopidogrel (PLAVIX) 75 mg tabletTake 1 tablet by mouth once daily. Take 75 mg by mouth once daily.Disp: 90 tabletRfl: 3 levothyroxine (LEVOXYL) 50 mcg tabletTake 1 tablet by mouth once daily. Take on empty stomach. For ThyroidDisp: 90 tabletRfl: 1 atorvastatin (LIPITOR) 80 mg tabletTAKE 1 TABLET BY MOUTH ONCE DAILY AT BEDTIME FOR CHOLESTEROLDisp: 90 tabletRfl: 3 metFORMIN ER (GLUCOPHAGE XR) 500 mg 24 hr tablettake 2 tablets by mouth twice daily with mealsDisp: 360 tabletRfl: 0 terconazole vaginal cream (TERAZOL) 0.8 % vaginal creamUse 1 Applicator vaginally daily at bedtime.Disp: 20 gRfl: 0 losartan (COZAAR) 50 mg tabletTake 1 tablet by mouth once daily.Disp: 90 tabletRfl: 3 cyanocobalamin 1,000 mcg/mLInject 1 mL intramuscularly once every month.Disp: 1 mLRfl: 12 blood sugar diagnostic (BLOOD GLUCOSE TEST) test stripTest blood sugar(s) 2 times daily. Dx: Type 2 DM - Uncontrolled E11.65 Insulin: NoDisp: 100 StripRfl: 5 Lancets lancetsTest blood sugar(s) two times times daily. Dx: Other DM Code E11.65 Insulin: NoDisp: 100 EachRfl: 11 metoprolol tartrate, short acting, (LOPRESSOR) 25 mg tabletTake 25 mg by mouth twice daily.Disp: Rfl: apixaban (ELIQUIS) 5 mg tab(s)Take by mouth twice daily.Disp: Rfl: fluticasone (FLONASE) 50 mcg/actuation nasal sprayUse 2 Sprays in each nostril once daily.Disp: 3 BottleRfl: 3 FAMILY HISTORY Problem Relation Age of Onset Prostate Cancer Father Breast Cancer Mother 40 Coronary Artery Disease Mother pace maker Coronary Artery Disease Father triple bypass Social History Tobacco Use Smoking status: Never Smokeless tobacco: Never Substance Use Topics Alcohol use: Yes Comment: rarely Drug use: No PHYSICAL EXAM BP 124/68 Pulse 60 Resp 16 Wt 84.4 kg (186 lb) SpO2 97% BMI 34.02 kg/m? General Appearance: well appearing, in no acute distress, alert Pysch: mood and affect broad and appropriate Eyes: conjunctiva pink and moist, no icterus, sclera white, non-injected Lungs: Lungs clear to auscultation. No wheezing, rhonchi, rales. Heart: RRR without murmur, gallop, or rubs. No ectopy Health maintenance reviewed with patient: Depression Screening Neve (more content not included)... Normal [facility] Basic metabolic 2000 panelon 10-26-2023 Anion gap [Moles/Vol] 10 mmol/L Normal 8-15 [facility] Comment on above: Order Comment: Speci men Type: BLOOD SPECIMENOrdering Facility: [facility] Address: [address] [place] [address] Performed By: #### 2 4321-2 ####[facility] MILLTOWNCLIA [id number] [place] [address] [place] Calcium [Mass/Vol] 9.7 mg/dL Normal 8.5-10.2 [facility] Comment on above: Order Comment: Speci men Type: BLOOD SPECIMENOrdering Facility: [facility] Address: [address] [place] [address] Performed By: #### 2 4321-2 ####[facility] MILLTOWNCLIA [id number] [place] [address] [place] Chloride [Moles/Vol] 104 mmol/L Normal 98-107 [facility] Comment on above: Order Comment: Speci men Type: BLOOD SPECIMENOrdering Facility: [facility] Address: [address] [place] [address] Performed By: #### 2 4321-2 ####[facility] SUKHJINDER MILLTOWNCLIA [id number] [place] [address] [place] CO2 [Moles/Vol] 24 mmol/L Normal 22-30 [facility] Comment on above: Order Comment: Speci men Type: BLOOD SPECIMENOrdering Facility: [facility] Address: [address] [place] [address] Performed By: #### 2 4321-2 ####[facility] MILLTOWNCLIA [id number] [place] [address] [place] Creatinine [Mass/Vol] 0.62 mg/dL Normal 0.58-0.96 [facility] Comment on above: Order Comment: Kamla clark Type: BLOOD SPECIMENOrdering Facility: [facility] Address: [address] [place] [address] Performed By: #### 2 4321-2 ####[facility] [id number] [place] [address] [place] Creatinine and Glomerular filtration rate.predicted panel (S/P/Bld) 92 mL/min/1.73m??? Normal >=60 [facility] Comment on above: Order Comment: Kamla clark Type: BLOOD SPECIMENOrdering Facility: [facility] Address: [address] [place] [address] Result Comment: Shakira mated Glomerular Filtration Rate (eGFR) is calculated using the 2020 CKD-EPI creatinine equation. This equation utilizes serum creatinine, sex, and age as parameters. The creatinine assay has traceable calibration to isotope dilution-mass spectrometry. Refer to KDIGO guidelines for clinical interpretation. In patients with unstable renal function, e.g. those with acute kidney injury, the eGFR may not accurately reflect actual GFR. Performed By: #### 2 4321-2 ####[facility] [id number] [place] [address] [place] Glucose [Mass/Vol] 140 mg/dL High 74-99 [facility] Comment on above: Order Comment: Kamla clark Type: BLOOD SPECIMENOrdering Facility: [facility] Address: [address] [place] [address] Result Comment: The [place] Diabetes Association (ADA) provides guidance for cutoff values for fasting glucose and random glucose. The ADA defines fasting as no caloric intake for at least 8 hours. Fasting plasma glucose results between 100 to 125 mg/dL indicate increased risk for diabetes (prediabetes). Fasting plasma glucose results greater than or equal to 126 mg/dL meet the criteria for diagnosis of diabetes. In the absence of unequivocal hyperglycemia, results should be confirmed by repeat testing. In a patient with classic symptoms of hyperglycemia or hyperglycemic crisis, random plasma glucose results greater than or equal to 200 mg/dL meet the criteria for diagnosis of diabetes. Reference: Standards of Medical Care in Diabetes 2016, [place] Diabetes Association. Diabetes Care. 2016.39(Suppl 1). Performed By: #### 2 4321-2 ####[facility] [id number] [place] [address] [place] Potassium [Moles/Vol] 4.4 mmol/L Normal 3.7-5.1 [facility] Comment on above: Order Comment: Speci men Type: BLOOD SPECIMENOrdering Facility: [facility] Address: [address] [place], [place] [address] Performed By: #### 2 4321-2 ####[facility] [id number] [place] [address] [place] Sodium [Moles/Vol] 138 mmol/L Normal 136-144 [facility] Comment on above: Order Comment: Speci men Type: BLOOD SPECIMENOrdering Facility: [facility] Address: [address] [place] [address] Performed By: #### 2 4321-2 ####[facility] [id number] [place] [address] [place] Urea nitrogen [Mass/Vol] 14 mg/dL Normal 7-21 [facility] Comment on above: Order Comment: Speci men Type: BLOOD SPECIMENOrdering Facility: [facility] Address: [address] [place] [address] Performed By: #### 2 4321-2 ####[facility] [id number] [place] [address] [place] CBC panel Auto (Bld)on 10-25 Erythrocyte distribution width (RBC) [Ratio] 15.5 % High 11.5-15.0 [facility] Comment on above: Order Comment: Speci men Type: BLOOD SPECIMENOrdering Facility: [facility] Address: [address] [place] [address] Performed By: #### 5 8410-2 ####[facility] [id number] [place] [address] [place] Hematocrit (Bld) [Volume fraction] 36.6 % Normal 36.0-46.0 [facility] Comment on above: Order Comment: Speci men Type: BLOOD SPECIMENOrdering Facility: [facility] Address: [address] [place] [address] Performed By: #### 5 8410-2 ####[facility] [id number] [place] [address] [place] Hemoglobin (Bld) [Mass/Vol] 11.4 g/dL Low 11.5-15.5 [facility] Comment on above: Order Comment: Speci men Type: BLOOD SPECIMENOrdering Facility: [facility] Address: [address] [place] [address] Performed By: #### 5 8410-2 ####[facility] [id number] [place] [address] [place] MCH (RBC) [Entitic mass] 26.5 pg Normal 26.0-34.0 [facility] Comment on above: Order Comment: Speci men Type: BLOOD SPECIMENOrdering Facility: [facility] Address: [address] [place] [address] Performed By: #### 5 8410-2 ####[facility] [id number] [place] [address] [place] MCHC (RBC) [Mass/Vol] 31.1 g/dL Normal 30.5-36.0 [facility] Comment on above: Order Comment: Speci men Type: BLOOD SPECIMENOrdering Facility: [facility] Address: [address] [place] [address] Performed By: #### 5 8410-2 ####[facility] [id number] [place] [address] [place] MCV (RBC) [Entitic vol] 85.1 fL Normal 80.0-100.0 [facility] Comment on above: Order Comment: Speci men Type: BLOOD SPECIMENOrdering Facility: [facility] Address: [address] [place] [address] Performed By: #### 5 8410-2 ####[facility] [id number] [place] [address] [place] Nucleated RBC (Bld) [#/Vol] 10*3/uL Normal <0.01 [facility] Comment on above: Order Comment: Speci men Type: BLOOD SPECIMENOrdering Facility: [facility] Address: [address] [place] [address] Performed By: #### 5 8410-2 ####[facility] [id number] [place] [address] [place] Platelet mean volume (Bld) [Entitic vol] 9.4 fL Normal 9.0-12.7 [facility] Comment on above: Order Comment: Speci men Type: BLOOD SPECIMENOrdering Facility: [facility] Address: [address] [place] [address] Performed By: #### 5 8410-2 ####[facility] [id number] [place] [address] [place] Platelets (Bld) [#/Vol] 481 10*3/uL High 150-400 [facility] Comment on above: Order Comment: Speci men Type: BLOOD SPECIMENOrdering Facility: [facility] Address: [address] [place] [address] Performed By: #### 5 8410-2 ####[facility] [id number] [place] [address] [place] RBC (Bld) [#/Vol] 4.30 10*6/uL Normal 3.90-5.20 [facility] Comment on above: Order Comment: Speci men Type: BLOOD SPECIMENOrdering Facility: [facility] Address: [address] [place] [address] Performed By: #### 5 8410-2 ####[facility] [id number] [place] [address] [place] WBC (Bld) [#/Vol] 7.84 10*3/uL Normal 3.70-11.00 [facility] Comment on above: Order Comment: Speci men Type: BLOOD SPECIMENOrdering Facility: [facility] Address: [address] [place] [address] Performed By: #### 5 8410-2 ####[facility] [id number] [place] [address] [place] HbA1c (Bld)on 10-26-2023 Average glucose Estimated from glycated hemoglobin (Bld) [Mass/Vol] 174 mg/dL Normal [facility] Comment on above: Order Comment: Speci men Type: BLOOD SPECIMENOrdering Facility: [facility] Address: [address] [place] [address] Result Comment: eAG: (Estimated average glucose) is a calculated value from HgbA1c and is billing representative of the average blood glucose level in the last 2-3 month period. Performed By: #### 5 5454-3 ####[facility] [id number] [place] [address] [place] HbA1c (Bld) [Mass fraction] 7.7 % High 4.3-5.6 [facility] Comment on above: Order Comment: Speci men Type: BLOOD SPECIMENOrdering Facility: [facility] Address: [address] [place] [address] Result Comment: [place] Diabetes Association guidelines indicate that patients with HgbA1c in the range 5.7-6.4% are at increased risk for development of diabetes, and intervention by lifestyle modification may be beneficial. HgbA1c greater or equal to 6.5% is considered diagnostic of diabetes. Performed By: #### 5 5454-3 ####[facility] LABCLIA [id number] [place] [address] [place] TSH SerPl-aCncon 10-26-2023 TSH Qn 1.770 m[IU]/L Normal 0.270-4.200 [facility] Comment on above: Order Comment: Speci men Type: BLOOD SPECIMENOrdering Facility: [facility] Address: [address] [place] [address] Performed By: #### 3 016-3 ####[facility] LABCLIA [id number] [address] [place] [facility] [place] ([id number]) 1945 F Date Time Provider Department 10/22/23 JONES VELASQUEZ INTWS During your visit today, we recorded the following information about you: Jodi Chung 10/22/2023 10:40 AM Signed Pt wanting to know if there are labs due before appointment 10/27/23. Please advise pt and place orders. Astrid Muse APRN.SHERIDAN 10/25/2023 7:28 AM Signed Non fasting blood work orders placed. Thank you Astrid Muse APRN.Chantale Chopra MA 10/25/2023 8:51 AM Signed Patient notified. 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 Take 1 tablet once daily in the morning - clopidogrel (PLAVIX) 75 mg tablet Take 1 tablet by mouth once daily. Take 75 mg by mouth once daily. - levothyroxine (LEVOXYL) 50 mcg tablet Take 1 tablet by mouth once daily. Take on empty stomach. For Thyroid - atorvastatin (LIPITOR) 80 mg tablet TAKE 1 TABLET BY MOUTH ONCE DAILY AT BEDTIME FOR CHOLESTEROL - metFORMIN ER (GLUCOPHAGE XR) 500 mg 24 hr tablet take 2 tablets by mouth twice daily with meals - terconazole vaginal cream (TERAZOL) 0.8 % vaginal cream Use 1 Applicator vaginally daily at bedtime. - losartan (COZAAR) 50 mg tablet Take 1 tablet by mouth once daily. - cyanocobalamin 1,000 mcg/mL Inject 1 mL intramuscularly once every month. - blood sugar diagnostic (BLOOD GLUCOSE TEST) test strip Test blood sugar(s) 2 times daily. Dx: Type 2 DM - Uncontrolled E11.65 Insulin: No - Lancets lancets Test blood sugar(s) two times times daily. Dx: Other DM Code E11.65 Insulin: No - metoprolol tartrate, short acting, (LOPRESSOR) 25 mg tablet Take 25 mg by mouth twice daily. - apixaban (ELIQUIS) 5 mg tab(s) Take by mouth twice daily. - fluticasone (FLONASE) 50 mcg/actuation nasal spray Use 2 Sprays in each nostril once daily. Facility-Administered Medications as of 10/25/2023 - cyanocobalamin 1,000 mcg injection Problem List As Of Date 10/22/2023 Noted Resolved Type II or unspecified type diabetes mellitus w*09/25/2014 02/19/2015 Other and unspecified hyperlipidemia [E78.5] 09/25/2014 06/21/2015 Essential hypertension [I10] 09/25/2014 BMI 38.0-38.9,adult [Z68.38] 09/25/2014 11/30/2014 Other allergic rhinitis [J30.89] 09/25/2014 BMI 37.0-37.9, adult [Z68.37] 11/30/2014 Diabetes mellitus type 2 with complications (HC*02/19/2015 Uncontrolled type 2 diabetes with neuropathy (H*04/23/2015 Mixed hyperlipidemia [E78.2] 12/24/2015 Occipital stroke (HCC) [I63.9] 02/14/2020 Vision loss [H54.7] 02/14/2020 NSTEMI (non-ST elevated myocardial infarction) *02/14/2020 Paroxysmal A-fib (HCC) [I48.0] 05/15/2020 Vitamin B 12 deficiency [E53.8] 06/12/2020 Encounter Status:Closed [facility] Nurse Visit (FAMPWS) BRITNEY CANADA ([id number]) 1945 F Date Time Provider Department 10/04/23 1:15 PM [facility] NURSE FAMPWS During your visit today, we recorded the following information about you: Agueda Sabillon LPN 10/04/2023 1:09 PM Signed Patient presents for B-12 injection. Denies any problems at this time. Patient instructed on any SE of medication, verbalized understanding and agreed to proceed with treatment. Tolerated injection well. Agueda Sabillon LPN Allergies As of Date: 10/04/2023 Noted Allergy Reaction DARVON (PROPOXYPHENE HCL) 10/11/2008 8 - GI Upset PENICILLINS 10/11/2008 2 - Rash Date Reviewed: 04/27/2023 Reviewed by: Grace Luz LPN - Fully Assessed Reason for Visit: B-12 Injection [247] Primary Visit Diagnosis:Vitamin B 12 deficiency [E53.8] Prescriptions as of 10/04/2023 - clopidogrel (PLAVIX) 75 mg tablet Take 1 tablet by mouth once daily. Take 75 mg by mouth once daily. - levothyroxine (LEVOXYL) 50 mcg tablet Take 1 tablet by mouth once daily. Take on empty stomach. For Thyroid - atorvastatin (LIPITOR) 80 mg tablet TAKE 1 TABLET BY MOUTH ONCE DAILY AT BEDTIME FOR CHOLESTEROL - metFORMIN ER (GLUCOPHAGE XR) 500 mg 24 hr tablet take 2 tablets by mouth twice daily with meals - terconazole vaginal cream (TERAZOL) 0.8 % vaginal cream Use 1 Applicator vaginally daily at bedtime. - losartan (COZAAR) 50 mg tablet Take 1 tablet by mouth once daily. - cyanocobalamin 1,000 mcg/mL Inject 1 mL intramuscularly once every month. - empagliflozin (JARDIANCE) 25 mg tablet Take 1 tablet by mouth once daily. Take 1 tablet once daily in the morning - blood sugar diagnostic (BLOOD GLUCOSE TEST) test strip Test blood sugar(s) 2 times daily. Dx: Type 2 DM - Uncontrolled E11.65 Insulin: No - Lancets lancets Test blood sugar(s) two times times daily. Dx: Other DM Code E11.65 Insulin: No - metoprolol tartrate, short acting, (LOPRESSOR) 25 mg tablet Take 25 mg by mouth twice daily. - apixaban (ELIQUIS) 5 mg tab(s) Take by mouth twice daily. - fluticasone (FLONASE) 50 mcg/actuation nasal spray Use 2 Sprays in each nostril once daily. Facility-Administered Medications as of 10/04/2023 - cyanocobalamin 1,000 mcg injection Problem List As Of Date 10/04/2023 Noted Resolved Type II or unspecified type diabetes mellitus w*09/25/2014 02/19/2015 Other and unspecified hyperlipidemia [E78.5] 09/25/2014 06/21/2015 Essential hypertension [I10] 09/25/2014 BMI 38.0-38.9,adult [Z68.38] 09/25/2014 11/30/2014 Other allergic rhinitis [J30.89] 09/25/2014 BMI 37.0-37.9, adult [Z68.37] 11/30/2014 Diabetes mellitus type 2 with complications (HC*02/19/2015 Uncontrolled type 2 diabetes with neuropathy (H*04/23/2015 Mixed hyperlipidemia [E78.2] 12/24/2015 Occipital stroke (HCC) [I63.9] 02/14/2020 Vision loss [H54.7] 02/14/2020 NSTEMI (non-ST elevated myocardial infarction) *02/14/2020 Paroxysmal A-fib (HCC) [I48.0] 05/15/2020 Vitamin B 12 deficiency [E53.8] 06/12/2020 Encounter Status:Closed by AGUEDA SABILLON on 10/04/23 Normal [facility] CBC W Auto Differential pane l (Bld)on 09-03-2022 Basophils (Bld) [#/Vol] 0.07 10*3/uL <0.11 k/uL [facility] Basophils/100 WBC (Bld) 0.6 % [facility] Differential cell count method Nom (Bld) Auto [facility] Eosinophils (Bld) [#/Vol] 0.05 10*3/uL <0.46 k/uL [facility] Eosinophils/100 WBC (Bld) 0.4 % [facility] Erythrocyte distribution width (RBC) [Ratio] 14.0 % 11.5 - 15.0 % [facility] Hematocrit (Bld) [Volume fraction] 41.5 % 36.0 - 46.0 % [facility] Hemoglobin (Bld) [Mass/Vol] 12.9 g/dL 11.5 - 15.5 g/dL [facility] Immature granulocytes (Bld) [#/Vol] 0.04 10*3/uL <0.10 k/uL [facility] Immature granulocytes/100 WBC (Bld) 0.3 % [facility] Lymphocytes (Bld) [#/Vol] 3.06 10*3/uL 1.00 - 4.00 k/uL [facility] Lymphocytes/100 WBC (Bld) 24.7 % [facility] MCH (RBC) [Entitic mass] 28.7 pg 26.0 - 34.0 pg [facility] MCHC (RBC) [Mass/Vol] 31.1 g/dL 30.5 - 36.0 g/dL [facility] MCV (RBC) [Entitic vol] 92.2 fL 80.0 - 100.0 fL [facility] Monocytes (Bld) [#/Vol] 0.82 10*3/uL <0.87 k/uL [facility] Monocytes/100 WBC (Bld) 6.6 % [facility] Neutrophils (Bld) [#/Vol] 8.37 10*3/uL High 1.45 - 7.50 k/uL [facility] Neutrophils/100 WBC (Bld) 67.4 % [facility] Nucleated RBC (Bld) [#/Vol] <0.01 k/uL [facility] Nucleated RBC/100 WBC (Bld) [Ratio] 0.0 /100 WBC [facility] Platelet mean volume (Bld) [Entitic vol] 10.5 fL 9.0 - 12.7 fL [facility] Platelets (Bld) [#/Vol] 519 10*3/uL High 150 - 400 k/uL [facility] RBC (Bld) [#/Vol] 4.50 10*6/uL 3.90 - 5.2 0 m/uL [facility] WBC (Bld) [#/Vol] 12.41 10*3/uL High 3.70 - 11 .00 k/uL [facility] Absolute lymphocyte countOrd ered By: Dr. Patiño on 08-28-2022 Lymphocytes Auto (Unsp spec) [#/Vol] 1.81 10*3/uL 0.83-4.51 [facility] Basophil percentageOrdered B y: Dr. Patiño on 08-28-2022 Basophils/100 WBC (Bld) 0.4 % 0-1 [facility] Bilirubin [Mass/Vol] 0.80 mg/dL 0.20-1.00 [facility] Comment on above: For patients on eltr ombopag therapy, use of Dimension [place] TBIL is not recommended. Chloride [Moles/Vol] 104 mmol/L 98-107 [facility] Eosinophils/100 WBC (Bld) 0.7 % 0-5 [facility] Glucose [Mass/Vol] 203 mg/dL 74-106 [facility] Comment on above: Glucose result great er than or equal to 200 mg/dLsuggests DIABETES MELLITUS per A.D.A. criteria. Neutrophils (Bld) [#/Vol] 7.2 10*3/uL 2.0-7.7 [facility] Neutrophils/100 WBC (Bld) 73.5 % 47-70 [facility] Potassium [Moles/Vol] 3.7 mmol/L 3.5-5.1 [facility] Protein [Mass/Vol] 6.6 g/dL 6.4-8.2 [facility] Sodium [Moles/Vol] 136 mmol/L 136-145 [facility] WBC (Bld) [#/Vol] 9.8 10*3/uL 4.4-11.0 [facility] Blood erythrocytes count (nu mber/volume)Ordered By: Dr. Patiño on 08-28-2022 RBC (Bld) [#/Vol] 4.06 10*6/uL 4.2-5.4 [facility] Blood hemoglobin measurement (mass/volume)Ordered By: Dr. Patiño on 08-28-2022 Hemoglobin (Bld) [Mass/Vol] 11.8 g/dL 12.0-15.0 [facility] Blood lymphocytes/100 leukoc ytesOrdered By: Dr. Patiño on 08-28-2022 Lymphocytes/100 WBC (Bld) 18.5 % 19-41 [facility] Blood monocytes/100 leukocyt esOrdered By: Dr. Patiño on 08-28-2022 Monocytes/100 WBC (Bld) 6.5 % 0-10 [facility] Blood platelet mean volumeOr dered By: Dr. Patiño on 08-28-2022 Platelet mean volume (Bld) [Entitic vol] 9.8 fL 6.2-12.0 [facility] Determination of erythrocyte mean corpuscular volume (MCV)Ordered By: Dr. Patiño on 08-28-2022 MCV (RBC) [Entitic vol] 88.9 fL 81-99 [facility] Glucose Glucometer (BldC) [M ass/Vol]Ordered By: Dr. Gregg on 08-28-2022 Glucose [Mass/Vol] 245 mg/dL 74-106 [facility] Comment on above: MANAGEMENT OF PATIEN T CARE PER NURSING PROTOCOL Hematocrit Auto (Bld) [Volum e fraction]Ordered By: Dr. Patiño on 08-28-2022 Hematocrit (Bld) [Volume fraction] 36.1 % 37-47 [facility] Laboratory - Chemistry and C hemistry - challengeOrdered By: Dr. Patiño on 08-28-2022 ALP [Catalytic activity/Vol] 84 U/L 45-117 [facility] ALT [Catalytic activity/Vol] 21 U/L 13-56 [facility] CO2 [Moles/Vol] 25.0 mmol/L 21.0-32.0 [facility] Globulin (S) [Mass/Vol] 3.7 g/dL 2.2-4.2 [facility] Urea nitrogen/Creatinine [Mass ratio] 21.9 mg/mg 10-20 [facility] Laboratory - Hematology and Cell countsOrdered By: Dr. Patiño on 08-28-2022 Erythrocyte distribution width (RBC) [Entitic vol] 44.4 fL 35.1-43.9 [facility] Erythrocyte distribution width (RBC) [Ratio] 13.6 % 11.6-14.6 [facility] Immature granulocytes/100 WBC (Bld) 0.400 % 0.0-0.9 [facility] Comment on above: IG% - Immature Granu locytes (promyelocytes, myelocytes and metamyelocytes) > 1% indicates that a LEFT SHIFT is Present. MCH (RBC) [Entitic mass] 29.1 pg 27.0-32.0 [facility] Nucleated RBC/100 WBC (Bld) [Ratio] 0 % 0-5 [facility] MCHC Auto (RBC) [Mass/Vol]Or dered By: Dr. Patiño on 08-28-2022 MCHC (RBC) [Mass/Vol] 32.7 g/dL 32-36 [facility] No Panel InformationOrdered By: Dr. Patiño on 08-28-2022 Estimated Creatinine Clearance Calc 38.44 ml/min [facility] Estimated GFR (MDRD) Amer 108 mL/min >60 [facility] Comment on above: GFR Calc Estimated GFR (MDRD) Non-Af Amer 89 mL/min >60 [facility] Comment on above: Non- GFR Calc Platelets bldOrdered By: Dr. Patiño on 08-28-2022 Platelets (Bld) [#/Vol] 431 10*3/uL 150-450 [facility] Serum or plasma albumin ciera urement (mass/volume)Ordered By: Dr. Patiño on 08-28-2022 Albumin [Mass/Vol] 2.9 g/dL 3.2-5.0 [facility] Serum or plasma albumin/glob ulin mass ratioOrdered By: Dr. Patiño on 08-28-2022 Albumin/Globulin [Mass ratio] 0.8 {ratio} 0.9-2.4 [facility] Serum or plasma calcium ciera urement (mass/volume)Ordered By: Dr. Patiño on 08-28-2022 Calcium [Mass/Vol] 9.2 mg/dL 8.5-10.1 [facility] Serum or plasma creatinine m easurement (mass/volume)Ordered By: Dr. Patiño on 08-28-2022 Creatinine [Mass/Vol] 0.68 mg/dL 0.55-1.02 [facility] Comment on above: The validity of the calculated GFR & GFRAA in patients over 70 years has not been determined. Clinical correlation is essential. Serum or plasma urea nitroge n measurement (mass/volume)Ordered By: Dr. Patiño on 08-28-2022 Urea nitrogen [Mass/Vol] 15 mg/dL 7-18 [facility] Thin prep Papanicolaou smear with manual screeningOrdered By: Dr. Patiño on 08-28-2022 Thin prep Papanicolaou smear with manual screening 19 U/L 15-37 [facility] Thin prep Papanicolaou smear with manual screening 7 5-15 [facility] Basophil percentageOrdered B y: Dr. Patiño on 08-26-2022 Cholesterol [Mass/Vol] 112 mg/dL <200 [facility] Comment on above: <200 mg/dL Desirable 200-240 mg/dL Borderline >240 mg/dL High Risk Triglyceride [Mass/Vol] 112 mg/dL <199 [facility] Comment on above: The drugs N-Acetylcy steine and Metamizole may falsely depress this assay.Serum Triglycerides Reference Interval Normal <150 mg/dL Borderline high 150 - 199 mg/dL High 200 - 499 mg/dL Very High > or = 500 mg/dL Basophil percentage 10-25 SEEN /hpf 0-5 [facility] Bilirubin Test strip Ql (U)O rdered By: Dr. Patiño on 08-26-2022 Bilirubin Ql (U) Negative Negative [facility] Culture, urineOrdered By: Ivet Patiño on 08-26-2022 Bacteria identified Cx Nom (U) Escherichia coli [facility] Ketones Test strip Ql (U)Ord ered By: Dr. Patiño on 08-26-2022 Ketones Ql (U) Negative Negative [facility] Mucus LM Ql (Urine sed)Order ed By: Dr. Patiño on 08-26-2022 Mucus Ql (Urine sed) 0 SEEN /hpf [facility] Nitrite Test strip Ql (U)Ord ered By: Dr. Patiño on 08-26-2022 Nitrite Ql (U) Positive Negative [facility] No Panel InformationOrdered By: Dr. Patiño on 08-26-2022 Thyroid Stimulating Hormone (TSH) 1.47 uIU/mL 0.358-3.74 [facility] Protein Test strip Ql (U)Ord ered By: Dr. Patiño on 08-26-2022 Protein Ql (U) 30 mg/dl Negative [facility] Serum or plasma cholesterol in HDL measurement (mass/volume)Ordered By: Dr. Patiño on 08-26-2022 Cholesterol in HDL [Mass/Vol] 37 mg/dL >40 [facility] Comment on above: The drugs N-Acetylcy steine and Metamizole may falsely depress this assay. Reference Range HDL <40 mg/dL Low HDL Cholesterol HDL >or= 60 mg/dL High HDL Cholesterol Serum or plasma cholesterol in VLDL measurement (mass/volume)Ordered By: Dr. Patiño on 08-26-2022 Cholesterol in VLDL [Mass/Vol] 22 mg/dL 5-40 [facility] Serum or plasma low density lipoprotein (LDL) cholesterol measurement (mass/volume)Ordered By: Dr. Patiño on 08-26-2022 Cholesterol in LDL [Mass/Vol] 53 mg/dL 0-130 [facility] Squamous epithelial cells de tection in urine sediment by light microscopyOrdered By: Dr. Patiño on 08-26-2022 Epithelial cells.squamous LM Ql (Urine sed) 0 SEEN /hpf 5-10 [facility] Urine blood detectionOrdered By: Dr. Patiño on 08-26-2022 RBC Ql (U) 10 /ul Negative [facility] RBC Ql (U) 0-5 SEEN /hpf 0-5 [facility] Urine clarityOrdered By: Dr. Patiño on 08-26-2022 Clarity (U) Clear Clear [facility] Urine color determinationOrd ered By: Dr. Patiño on 08-26-2022 Color (U) Yellow Yellow [facility] Urine glucose detectionOrder ed By: Dr. Patiño on 08-26-2022 Glucose Ql (U) 250 mg/dl Normal [facility] Urine leukocyte esterase det ection by dipstickOrdered By: Dr. Patiño on 08-26-2022 Leukocyte esterase Test strip Ql (U) 500 /ul Negative [facility] Urine pHOrdered By: Dr. Simeon gamez on 08-26-2022 pH (U) 5.0 [pH] 5.0 - 8.0 [facility] Urine sediment bacteria coun t by microscopy (number/high power field)Ordered By: Dr. Patiño on 08-26-2022 Bacteria LM.HPF (Urine sed) [#/Area] 2 /[HPF] None Seen [facility] Urine specific gravity measu rementOrdered By: Dr. Patiño on 08-26-2022 Specific gravity (U) [Rel density] 1.010 1.002-1.030 [facility] Urobilinogen Auto test strip Ql (U)Ordered By: Dr. Patiño on 08-26-2022 Urobilinogen Ql (U) Normal mg/dl [facility] Absolute lymphocyte countOrd ered By: Dr. Lew on 08-25-2022 Lymphocytes Auto (Unsp spec) [#/Vol] 3.34 10*3/uL 0.83-4.51 [facility] Basophil percentageOrdered B y: Dr. Lew on 08-25-2022 Basophils/100 WBC (Bld) 0.4 % 0-1 [facility] Chloride [Moles/Vol] 101 mmol/L 98-107 [facility] Eosinophils/100 WBC (Bld) 0.2 % 0-5 [facility] Glucose [Mass/Vol] 334 mg/dL 74-106 [facility] Comment on above: Glucose result great er than or equal to 200 mg/dLsuggests DIABETES MELLITUS per A.D.A. criteria. Neutrophils (Bld) [#/Vol] 9.7 10*3/uL 2.0-7.7 [facility] Neutrophils/100 WBC (Bld) 68.9 % 47-70 [facility] Potassium [Moles/Vol] 3.9 mmol/L 3.5-5.1 [facility] Sodium [Moles/Vol] 134 mmol/L 136-145 [facility] WBC (Bld) [#/Vol] 14.1 10*3/uL 4.4-11.0 [facility] Blood erythrocytes count (nu mber/volume)Ordered By: Dr. Lew on 08-25-2022 RBC (Bld) [#/Vol] 4.35 10*6/uL 4.2-5.4 [facility] Blood hemoglobin measurement (mass/volume)Ordered By: Dr. Lew on 08-25-2022 Hemoglobin (Bld) [Mass/Vol] 12.4 g/dL 12.0-15.0 [facility] Blood lymphocytes/100 leukoc ytesOrdered By: Dr. Lew on 08-25-2022 Lymphocytes/100 WBC (Bld) 23.7 % 19-41 [facility] Blood monocytes/100 leukocyt esOrdered By: Dr. Lew on 08-25-2022 Monocytes/100 WBC (Bld) 6.2 % 0-10 [facility] Blood platelet mean volumeOr dered By: Dr. Lew on 08-25-2022 Platelet mean volume (Bld) [Entitic vol] 10.0 fL 6.2-12.0 [facility] Determination of erythrocyte mean corpuscular volume (MCV)Ordered By: Dr. Lew on 08-25-2022 MCV (RBC) [Entitic vol] 87.8 fL 81-99 [facility] Glucose Glucometer (BldC) [M ass/Vol]Ordered By: Dr. Lew on 08-25-2022 Glucose [Mass/Vol] 316 mg/dL 74-106 [facility] Comment on above: MANAGEMENT OF PATIEN T CARE PER NURSING PROTOCOL Hematocrit Auto (Bld) [Volum e fraction]Ordered By: Dr. Lew on 08-25-2022 Hematocrit (Bld) [Volume fraction] 38.2 % 37-47 [facility] INR in Blood by Coagulation assayOrdered By: Dr. Lew on 08-25-2022 INR Coag (Bld) [Relative time] 1.1 {INR} [facility] Laboratory - Chemistry and C hemistry - challengeOrdered By: Dr. Lew on 08-25-2022 CO2 [Moles/Vol] 25.0 mmol/L 21.0-32.0 [facility] Urea nitrogen/Creatinine [Mass ratio] 14.5 mg/mg 10- [facility] Laboratory - CoagulationOrde red By: Dr. Lew on 08-25-2022 aPTT Coag (Bld) [Time] 30.0 s 24.1-36.2 [facility] PT Coag (PPP) [Time] 14.4 s 11.7-14.9 [facility] Laboratory - Hematology and Cell countsOrdered By: Dr. Lew on 08-25-2022 Erythrocyte distribution width (RBC) [Entitic vol] 43.8 fL 35.1-43.9 [facility] Erythrocyte distribution width (RBC) [Ratio] 13.7 % 11.6-14.6 [facility] Immature granulocytes/100 WBC (Bld) 0.600 % 0.0-0.9 [facility] Comment on above: IG% - Immature Granu locytes (promyelocytes, myelocytes and metamyelocytes) > 1% indicates that a LEFT SHIFT is Present. MCH (RBC) [Entitic mass] 28.5 pg 27.0-32.0 [facility] Nucleated RBC/100 WBC (Bld) [Ratio] 0 % 0-5 [facility] MCHC Auto (RBC) [Mass/Vol]Or dered By: Dr. Lew on 08-25-2022 MCHC (RBC) [Mass/Vol] 32.5 g/dL 32-36 [facility] No Panel InformationOrdered By: Dr. Lew on 08-25-2022 Estimated GFR (MDRD) Amer 86 mL/min >60 [facility] Comment on above: GFR Calc Estimated GFR (MDRD) Non-Af Amer 71 mL/min >60 [facility] Comment on above: Non- GFR Calc Troponin I High Sensitivity 11 pg/mL 3.0-54.0 [facility] Comment on above: Please Note: New [place] t Units and Gender Specific Reference Ranges. For more information see Policy Stat Procedure [place] High Sensitivity Troponin (TNIH) and attachments. Platelets bldOrdered By: Dr. Lew on 08-25-2022 Platelets (Bld) [#/Vol] 503 10*3/uL 150-450 [facility] Serum or plasma calcium ciera urement (mass/volume)Ordered By: Dr. Lew on 08-25-2022 Calcium [Mass/Vol] 9.3 mg/dL 8.5-10.1 [facility] Serum or plasma creatinine m easurement (mass/volume)Ordered By: Dr. Lew on 08-25-2022 Creatinine [Mass/Vol] 0.83 mg/dL 0.55-1.02 [facility] Comment on above: The validity of the calculated GFR & GFRAA in patients over 70 years has not been determined. Clinical correlation is essential. Serum or plasma urea nitroge n measurement (mass/volume)Ordered By: Dr. Lew on 08-25-2022 Urea nitrogen [Mass/Vol] 12 mg/dL 7-18 [facility] Thin prep Papanicolaou smear with manual screeningOrdered By: Dr. Lew on 08-25-2022 Thin prep Papanicolaou smear with manual screening 8 5-15 [facility] XR Lumbar spine 3 Viewson IMPRESSION: DEGENERATIVE CHANGE AND ALIGNMENT ABNORMALITIES DESCRIBED. REMOTE L2 FRACTURE. STABLE Mri Specialist: PSCB Transcribe Date/Time: Jul 13 2022 4:22P Dictated by : KAYLIN GALEANO MD This examination was interpreted and the report reviewed and electronically signed by: KAYLIN GALEANO MD on Jul 13 2022 4:24PM [facility] DIVISION OF RADIOLOGY * * *Final Report* * * DATE OF EXAM: Jul 13 2022 2:47PM [id number] - XR LUMBAR 3V AP/LAT/L5-S1 / PROCEDURE REASON: multiple diagnoses * * * * Physician Interpretation * * * * Examination: XR LUMBAR 3V AP/LAT/L5-S1 History: Acute right-sided low back pain with right-sided sciatica Pain of right lower extremity Technique: XR LUMBAR 3V AP/LAT/L5-S1 Comparison: 12/06/2018 RESULT: Straightening of the normal lordosis. 5 nonrib-bearing lumbar type vertebrae. For numbering purposes, L4-5 is at the level of the iliac crest. L3-4 severe disc space narrowing with mild anterior position of L3 on L4. Moderate disc space during elsewhere throughout the lumbar region. Mild compression fracture of L2 is stable. Degenerative change involving the posterior elements from L3 through S1. Mild scoliosis. DIVISION OF RADIOLOGY Provider, Guido seth Chaptico - 07/13/2022 * * *Final Report* * * DATE OF EXAM: Jul 13 2022 2:47PM [id number] - XR LUMBAR 3V AP/LAT/L5-S1 / PROCEDURE REASON: multiple diagnoses * * * * Physician Interpretation * * * * Examination: XR LUMBAR 3V AP/LAT/L5-S1 History: Acute right-sided low back pain with right-sided sciatica Pain of right lower extremity Technique: XR LUMBAR 3V AP/LAT/L5-S1 Comparison: 12/06/2018 RESULT: Straightening of the normal lordosis. 5 nonrib-bearing lumbar type vertebrae. For numbering purposes, L4-5 is at the level of the iliac crest. L3-4 severe disc space narrowing with mild anterior position of L3 on L4. Moderate disc space during elsewhere throughout the lumbar region. Mild compression fracture of L2 is stable. Degenerative change involving the posterior elements from L3 through S1. Mild scoliosis. IMPRESSION IMPRESSION: DEGENERATIVE CHANGE AND ALIGNMENT ABNORMALITIES DESCRIBED. REMOTE L2 FRACTURE. STABLE Mri Specialist: PSCB Transcribe Date/Time: Jul 13 2022 4:22P Dictated by : KAYLIN GALEANO MD This examination was interpreted and the report reviewed and electronically signed by: KAYLIN GALEANO MD on Jul 13 2022 4:24PM [facility] Radiology Study observation (narrative) [facility] XR Lumbar spine 3 ViewsOrder ed By: [facility]cf Provider on 07-13-2022 [facility] Vital Signs Date Time Vital Sign Value Performing Clinician Facility 09-06-2024 08:[id number] Body height 157.48 cm ASTRID OLDER MOBILE SALES CONSULTANT-C Work Phone: [facility] 09-06-2024 08:08-0400 Body mass index (BMI) [Ratio] 32.5 kg/m2 ASTRID OLDER MOBILE SALES CONSULTANT-C Work Phone: [facility] 09-06-2024 08:08-0400 Body weight 80.73 kg ASTRID OLDER MOBILE SALES CONSULTANT-C Work Phone: [facility] 09-06-2024 08:08-0400 Diastolic blood pressure 53 mm[Hg] ASTRID OLDER MOBILE SALES CONSULTANT-C Work Phone: [facility] 09-06-2024 08:08-0400 Heart rate 60 /min ASTRID OLDER MOBILE SALES CONSULTANT-C Work Phone: [facility] 09-06-2024 08:08-0400 Respiratory rate 16 /min ASTRID OLDER MOBILE SALES CONSULTANT-C Work Phone: [facility] 09-06-2024 08:08-0400 Systolic blood pressure 93 mm[Hg] ASTRID OLDER MOBILE SALES CONSULTANT-C Work Phone: [facility] 07-25-2024 08:03-0400 Body mass index (BMI) [Ratio] 32.4 kg/m2 Jones Velasquez MD Work Phone: [facility] 07-25-2024 08:03-0400 Body temperature 98.49 [degF] Jones Velasquez MD Work Phone: [facility] 07-25-2024 08:03-0400 Body weight 81.65 kg Jones Velasquez MD Work Phone: [facility] 07-25-2024 08:03-0400 Diastolic blood pressure 68 mm[Hg] Jones Velasquez MD Work Phone: [facility] 07-25-2024 08:03-0400 Heart rate 73 /min Jones Velasquez MD Work Phone: [facility] 07-25-2024 08:03-0400 SaO2% (BldA) [Mass fraction] 100 % Jones Velasquez MD Work Phone: [facility] 07-25-2024 08:03-0400 Systolic blood pressure 108 mm[Hg] Jones Velasquez MD Work Phone: [facility] 06-09-2024 10:17-0400 Body mass index (BMI) [Ratio] 32.22 kg/m2 Astrid Older INSURANCE CLERK.FINISH CLEANER Work Phone: [facility] 06-09-2024 10:17-0400 Body weight 81.19 kg Astrid Older INSURANCE CLERK.FINISH CLEANER Work Phone: [facility] 06-09-2024 10:17-0400 Diastolic blood pressure 68 mm[Hg] Astrid Older INSURANCE CLERK.FINISH CLEANER Work Phone: [facility] 06-09-2024 10:17-0400 Heart rate 64 /min Astrid Older INSURANCE CLERK.FINISH CLEANER Work Phone: [facility] 06-09-2024 10:17-0400 Respiratory rate 16 /min Astrid Older INSURANCE CLERK.FINISH CLEANER Work Phone: [facility] 06-09-2024 10:17-0400 SaO2% (BldA) [Mass fraction] 98 % Astrid Older INSURANCE CLERK.FINISH CLEANER Work Phone: [facility] 06-09-2024 10:17-0400 Systolic blood pressure 112 mm[Hg] Astrid Older INSURANCE CLERK.FINISH CLEANER Work Phone: [facility] 04-28-2024 10:31-0500 Body mass index (BMI) [Ratio] 31.86 kg/m2 Astrid Older INSURANCE CLERK.FINISH CLEANER Work Phone: [facility] 04-28-2024 10:31-0500 Body weight 80.29 kg Astrid Older INSURANCE CLERK.FINISH CLEANER Work Phone: [facility] 04-28-2024 10:31-0500 Diastolic blood pressure 68 mm[Hg] Astrid Older INSURANCE CLERK.FINISH CLEANER Work Phone: [facility] 04-28-2024 10:31-0500 Heart rate 64 /min Astrid Older INSURANCE CLERK.FINISH CLEANER Work Phone: [facility] 04-28-2024 10:31-0500 Respiratory rate 16 /min Astrid Older INSURANCE CLERK.FINISH CLEANER Work Phone: [facility] 04-28-2024 10:31-0500 SaO2% (BldA) [Mass fraction] 97 % Astrid Older INSURANCE CLERK.FINISH CLEANER Work Phone: [facility] 04-28-2024 10:31-0500 Systolic blood pressure 122 mm[Hg] Astrid Older INSURANCE CLERK.FINISH CLEANER Work Phone: [facility] 03-20-2024 12:51-0500 Body height 158.8 cm Justin Christopher MD Work Phone: [facility] 03-20-2024 12:51-0500 Body mass index (BMI) [Ratio] 32.58 kg/m2 Justin Christopher MD Work Phone: [facility] 03-20-2024 12:51-0500 Body temperature 97.5 [degF] Justin Christopher MD Work Phone: [facility] 03-20-2024 12:51-0500 Body weight 82.1 kg Justin Christopher MD Work Phone: [facility] 03-20-2024 12:51-0500 Diastolic blood pressure 65 mm[Hg] Justin Christopher MD Work Phone: [facility] 03-20-2024 12:51-0500 Heart rate 61 /min Justin Christopher MD Work Phone: [facility] 03-20-2024 12:51-0500 SaO2% (BldA) [Mass fraction] 97 % Justin Christopher MD Work Phone: [facility] 03-20-2024 12:51-0500 Systolic blood pressure 113 mm[Hg] Justin Christopher MD Work Phone: [facility] 03-15-2024 10:08-0500 Body mass index (BMI) [Ratio] 33.29 kg/m2 Astrid Older INSURANCE CLERK.FINISH CLEANER Work Phone: [facility] 03-15-2024 10:08-0500 Body weight 82.56 kg Astrid Older INSURANCE CLERK.FINISH CLEANER Work Phone: [facility] 03-15-2024 10:08-0500 Diastolic blood pressure 74 mm[Hg] Astrid Older INSURANCE CLERK.FINISH CLEANER Work Phone: [facility] 03-15-2024 10:08-0500 Heart rate 60 /min Astrid Older INSURANCE CLERK.FINISH CLEANER Work Phone: [facility] 03-15-2024 10:08-0500 Respiratory rate 16 /min Astrid Older INSURANCE CLERK.FINISH CLEANER Work Phone: [facility] 03-15-2024 10:08-0500 SaO2% (BldA) [Mass fraction] 95 % Astrid Older INSURANCE CLERK.FINISH CLEANER Work Phone: [facility] 03-15-2024 10:08-0500 Systolic blood pressure 128 mm[Hg] Astrid Older INSURANCE CLERK.FINISH CLEANER Work Phone: [facility] 02-02-2024 12:17-0500 Body mass index (BMI) [Ratio] 33.84 kg/m2 Astrid Older INSURANCE CLERK.FINISH CLEANER Work Phone: [facility] 02-02-2024 12:17-0500 Body weight 83.92 kg Astrid Older INSURANCE CLERK.FINISH CLEANER Work Phone: [facility] 02-02-2024 12:17-0500 Diastolic blood pressure 72 mm[Hg] Astrid Older INSURANCE CLERK.FINISH CLEANER Work Phone: [facility] 02-02-2024 12:17-0500 Heart rate 56 /min Astrid Older INSURANCE CLERK.FINISH CLEANER Work Phone: [facility] 02-02-2024 12:17-0500 Respiratory rate 16 /min Astrid Older INSURANCE CLERK.FINISH CLEANER Work Phone: [facility] 02-02-2024 12:17-0500 SaO2% (BldA) [Mass fraction] 96 % Astrid Older INSURANCE CLERK.FINISH CLEANER Work Phone: [facility] 02-02-2024 12:17-0500 Systolic blood pressure 128 mm[Hg] Astrid Muse APRN.FINISH CLEANER Work Phone: [facility] 01-21-2024 13:53-0500 Diastolic Blood Pressure Non-Invasive 48 mm[Hg] JUNE NORTH SCITUATE INSURANCE CLERK-FINISH CLEANER [facility] 01-21-2024 13:53-0500 Systolic Blood Pressure Non-Invasive 104 mm[Hg] JUNE NORTH SCITUATE INSURANCE CLERK-FINISH CLEANER [facility] 01-21-2024 13:37-0500 Body temperature 98.06 [degF] JUNE NORTH SCITUATE INSURANCE CLERK-FINISH CLEANER [facility] 01-21-2024 13:37-0500 Diastolic Blood Pressure Non-Invasive 40 mm[Hg] JUNE NORTH SCITUATE INSURANCE CLERK-FINISH CLEANER [facility] 01-21-2024 13:37-0500 Heart rate 66 /min JUNE NORTH SCITUATE INSURANCE CLERK-FINISH CLEANER [facility] 01-21-2024 13:37-0500 Reason For Taking VItal Signs JUNE NORTH SCITUATE INSURANCE CLERK-FINISH CLEANER [facility] 01-21-2024 13:37-0500 Respiratory rate 18 /min JUNE NORTH SCITUATE INSURANCE CLERK-FINISH CLEANER [facility] 01-21-2024 13:37-0500 Systolic Blood Pressure Non-Invasive 91 mm[Hg] JUNE NORTH SCITUATE INSURANCE CLERK-FINISH CLEANER [facility] 01-21-2024 07:41-0500 Body temperature 98.24 [degF] JUNE NORTH SCITUATE INSURANCE CLERK-FINISH CLEANER [facility] 01-21-2024 07:41-0500 Diastolic Blood Pressure Non-Invasive 48 mm[Hg] JUNE NORTH SCITUATE INSURANCE CLERK-FINISH CLEANER [facility] 01-21-2024 07:41-0500 Heart rate 72 /min JUNE NORTH SCITUATE INSURANCE CLERK-FINISH CLEANER [facility] 01-21-2024 07:41-0500 Reason For Taking VItal Signs JUNE NORTH SCITUATE INSURANCE CLERK-FINISH CLEANER [facility] 01-21-2024 07:41-0500 Respiratory rate 16 /min JUNE NORTH SCITUATE INSURANCE CLERK-FINISH CLEANER [facility] 01-21-2024 07:41-0500 Systolic Blood Pressure Non-Invasive 110 mm[Hg] JUNE NORTH SCITUATE INSURANCE CLERK-FINISH CLEANER [facility] 01-21-2024 06:40-0500 Body temperature 98.24 [degF] JUNE NORTH SCITUATE INSURANCE CLERK-FINISH CLEANER [facility] 01-21-2024 06:40-0500 Heart rate 71 /min JUNE NORTH SCITUATE INSURANCE CLERK-FINISH CLEANER [facility] 01-21-2024 06:40-0500 Respiratory rate 16 /min JUNE NORTH SCITUATE INSURANCE CLERK-FINISH CLEANER [facility] 01-21-2024 01:45-0500 Heart rate 77 /min JUNE NORTH SCITUATE INSURANCE CLERK-FINISH CLEANER [facility] 01-21-2024 01:17-0500 Body height 157.5 cm JUNE NORTH SCITUATE INSURANCE CLERK-FINISH CLEANER [facility] 01-21-2024 01:17-0500 Body weight 82.5 kg JUNE NORTH SCITUATE INSURANCE CLERK-FINISH CLEANER [facility] 01-21-2024 01:17-0500 Body weight 33.26 kg/m2 JUNE NORTH SCITUATE INSURANCE CLERK-FINISH CLEANER [facility] 01-21-2024 00:34-0500 Heart rate 83 /min JUNE NORTH SCITUATE INSURANCE CLERK-FINISH CLEANER [facility] 10-27-2023 09:52-0400 Body mass index (BMI) [Ratio] 34.02 kg/m2 Astrid Older INSURANCE CLERK.FINISH CLEANER Work Phone: [facility] 10-27-2023 09:52-0400 Body weight 84.37 kg Astrid Older INSURANCE CLERK.FINISH CLEANER Work Phone: [facility] 10-27-2023 09:52-0400 Diastolic blood pressure 68 mm[Hg] Astrid Older INSURANCE CLERK.FINISH CLEANER Work Phone: [facility] 10-27-2023 09:52-0400 Heart rate 60 /min Astrid Older INSURANCE CLERK.FINISH CLEANER Work Phone: [facility] 10-27-2023 09:52-0400 Respiratory rate 16 /min Astrid Older INSURANCE CLERK.FINISH CLEANER Work Phone: [facility] 10-27-2023 09:52-0400 SaO2% (BldA) [Mass fraction] 97 % Astrid Older INSURANCE CLERK.FINISH CLEANER Work Phone: [facility] 10-27-2023 09:52-0400 Systolic blood pressure 124 mm[Hg] Astrid Older INSURANCE CLERK.FINISH CLEANER Work Phone: [facility] 04-27-2023 09:47-0500 Body height 157.5 cm Renetta Denbow PA-C Work Phone: [facility] 04-27-2023 09:47-0500 Body weight 85.28 kg Renetta Denbow PA-C Work Phone: [facility] 04-27-2023 09:47-0500 Diastolic blood pressure 58 mm[Hg] Renetta Denbow PA-C Work Phone: [facility] 04-27-2023 09:47-0500 Heart rate 61 /min Renetta Denbow PA-C Work Phone: [facility] 04-27-2023 09:47-0500 Respiratory rate 12 /min Renetta Denbow PA-C Work Phone: [facility] 04-27-2023 09:47-0500 SaO2% (BldA) [Mass fraction] 97 % Renetta Denbow PA-C Work Phone: [facility] 04-27-2023 09:47-0500 Systolic blood pressure 122 mm[Hg] Renetta Denbow PA-C Work Phone: [facility] 12-09-2022 13:17-0400 Body height 157.5 cm Renetta Denbow PA-C Work Phone: [facility] 12-09-2022 13:17-0400 Body temperature 97.9 [degF] Renetta Denbow PA-C Work Phone: [facility] 12-09-2022 13:17-0400 Body weight 88.91 kg Renetta Denbow PA-C Work Phone: [facility] 12-09-2022 13:17-0400 Diastolic blood pressure 56 mm[Hg] Renetta Denbow PA-C Work Phone: [facility] 12-09-2022 13:17-0400 Heart rate 85 /min Renetta Denbow PA-C Work Phone: [facility] 12-09-2022 13:17-0400 Respiratory rate 16 /min Renetta Denbow PA-C Work Phone: [facility] 12-09-2022 13:17-0400 SaO2% (BldA) [Mass fraction] 97 % Renetta Denbow PA-C Work Phone: [facility] 12-09-2022 13:17-0400 Systolic blood pressure 118 mm[Hg] Renetta Denbow PA-C Work Phone: [facility] 10-14-2022 13:03-0400 Body height 157.5 cm Renetta Denbow PA-C Work Phone: [facility] 10-14-2022 13:03-0400 Body temperature 97.5 [degF] Renetta Denbow PA-C Work Phone: [facility] 10-14-2022 13:03-0400 Body weight 92.53 kg Renetta Denbow PA-C Work Phone: [facility] 10-14-2022 13:03-0400 Diastolic blood pressure 72 mm[Hg] Renetta Denbow PA-C Work Phone: [facility] 10-14-2022 13:03-0400 Heart rate 60 /min Renetta Denbow PA-C Work Phone: [facility] 10-14-2022 13:03-0400 Respiratory rate 14 /min Renetta Denbow PA-C Work Phone: [facility] 10-14-2022 13:03-0400 SaO2% (BldA) [Mass fraction] 96 % Renetta Denbow PA-C Work Phone: [facility] 10-14-2022 13:03-0400 Systolic blood pressure 120 mm[Hg] Renetta Denbow PA-C Work Phone: [facility] 09-03-2022 13:04-0400 Body weight 92.72 kg Astrid Older INSURANCE CLERK.FINISH CLEANER Work Phone: [facility] 09-03-2022 13:04-0400 Diastolic blood pressure 82 mm[Hg] Astrid Older INSURANCE CLERK.FINISH CLEANER Work Phone: [facility] 09-03-2022 13:04-0400 Heart rate 104 /min Astrid Older INSURANCE CLERK.FINISH CLEANER Work Phone: [facility] 09-03-2022 13:04-0400 Respiratory rate 16 /min Astrid Older INSURANCE CLERK.FINISH CLEANER Work Phone: [facility] 09-03-2022 13:04-0400 SaO2% (BldA) [Mass fraction] 93 % Astrid Older INSURANCE CLERK.FINISH CLEANER Work Phone: [facility] 09-03-2022 13:04-0400 Systolic blood pressure 142 mm[Hg] Astrid Older INSURANCE CLERK.FINISH CLEANER Work Phone: [facility] 06-23-2023 14:08-0400 Body temperature 98.3 [degF] Dr. Jones Velasquez Work Phone: 4(990)548-938862 [place] [address] 08-28-2022 14:08-0400 Diastolic blood pressure 73 mm[Hg] Dr. Jones Velasquez Work Phone: 9(779)884-140462 [place] [address] 08-28-2022 14:08-0400 Heart rate 84 /min Dr. Jones Velasquez Work Phone: 4(612)084-386962 [place] [address] 08-28-2022 14:08-0400 Respiratory rate 18 /min Dr. Jones Velasquez Work Phone: 6(692)073-186362 [place] [address] 08-28-2022 14:08-0400 SaO2% (BldA) [Mass fraction] 96 % Dr. Jones Velasquez Work Phone: 4(438)787-062962 [place] [address] 08-28-2022 14:08-0400 Systolic blood pressure 156 mm[Hg] Dr. Jones Velasquez Work Phone: 7(019)236-798762 [place] [address] 08-28-2022 12:45-0400 Body mass index (BMI) [Ratio] 38 kg/m2 Dr. Jones Velasquez Work Phone: 4(250)221-416962 [place] [address] 08-26-2022 15:41-0400 Body height 157.[address] Jones Velasquez Work Phone: 4(488)149-204562 [place] [address] 08-26-2022 15:41-0400 Body weight 94.[address] Jones Velasquez Work Phone: 2(877)616-121162 [place] [address] 08-25-2022 18:39-0400 Diastolic blood pressure 78 mm[Hg] Dr. Jones Velasquez Work Phone: 0(265)876-259262 [place] [address] 08-25-2022 18:39-0400 Heart rate 95 /min Dr. Jones Velasquez Work Phone: 3(475)877-648162 [place] [address] 08-25-2022 18:39-0400 Respiratory rate 16 /min Dr. Jones Velasquez Work Phone: 7(605)946-620162 [place] [address] 08-25-2022 18:39-0400 SaO2% (BldA) [Mass fraction] 96 % Dr. Jones Velasquez Work Phone: 2(627)488-822962 [place] [address] 08-25-2022 18:39-0400 Systolic blood pressure 98 mm[Hg] Dr. Jones Velasquez Work Phone: 8(078)084-529362 [place] [address] 08-25-2022 18:12-0400 Body temperature 98.9 [degF] Dr. Jones Velasquez Work Phone: 1(069)883-543462 [place] [address] 08-25-2022 16:34-0400 Body height 157.[address] Jones Velasquez Work Phone: 1(993)316-706962 [place] [address] 08-25-2022 16:34-0400 Body mass index (BMI) [Ratio] 39.2 kg/m2 Dr. Jones Velasquez Work Phone: 9(260)471-142262 [place] [address] 08-25-2022 16:34-0400 Body weight 97.[address] Jones Velasquez Work Phone: 3(638)098-525162 [place] [address] 08-12-2022 10:34-0400 Body mass index (BMI) [Ratio] 38.2 kg/m2 Dr. Jones Velasquez Work Phone: 7(469)706-609362 [place] [address] 08-12-2022 10:34-0400 Body weight 94.[address] Jones Velasquez Work Phone: 7(865)526-283562 [place] [address] 08-12-2022 10:34-0400 Diastolic blood pressure 79 mm[Hg] Dr. Jones Velasquez Work Phone: 4(380)700-580662 [place] [address] 08-12-2022 10:34-0400 Heart rate 71 /min Dr. Jones Velasquez Work Phone: 4(085)552-304062 [place] [address] 08-12-2022 10:34-0400 Respiratory rate 18 /min Dr. Jones Velasquez Work Phone: 2(359)507-010662 [place] [address] 08-12-2022 10:34-0400 SaO2% (BldA) [Mass fraction] 96 % Dr. Jones Velasquez Work Phone: 7(403)650-475362 [place] [address] 08-12-2022 10:34-0400 Systolic blood pressure 137 mm[Hg] Dr. Jones Velasquez Work Phone: [facility] 06-04-2022 13:07-0400 Body temperature 97.81 [degF] Astrid Older INSURANCE CLERK.FINISH CLEANER Work Phone: [facility] 06-04-2022 13:07-0400 Body weight 99.34 kg Astrid Older INSURANCE CLERK.FINISH CLEANER Work Phone: [facility] 06-04-2022 13:07-0400 Diastolic blood pressure 78 mm[Hg] Astrid Older INSURANCE CLERK.FINISH CLEANER Work Phone: [facility] 06-04-2022 13:07-0400 Heart rate 68 /min Astrid Older INSURANCE CLERK.FINISH CLEANER Work Phone: [facility] 06-04-2022 13:07-0400 Respiratory rate 16 /min Astrid Older INSURANCE CLERK.FINISH CLEANER Work Phone: [facility] 06-04-2022 13:07-0400 SaO2% (BldA) [Mass fraction] 95 % Astrid Older INSURANCE CLERK.FINISH CLEANER Work Phone: [facility] 06-04-2022 13:07-0400 Systolic blood pressure 132 mm[Hg] Astrid Older INSURANCE CLERK.FINISH CLEANER Work Phone: [facility] 02-18-2022 10:05-0500 Body height 157.5 cm Jones Velasquez MD Work Phone: [facility] 02-18-2022 10:05-0500 Body temperature 97.5 [degF] Jones Velasquez MD Work Phone: [facility] 02-18-2022 10:05-0500 Body weight 97.52 kg Jones Velasquez MD Work Phone: [facility] 02-18-2022 10:05-0500 Diastolic blood pressure 76 mm[Hg] Jones Velasquez MD Work Phone: [facility] 02-18-2022 10:05-0500 Heart rate 65 /min Jones Velasquez MD Work Phone: [facility] 02-18-2022 10:05-0500 Respiratory rate 16 /min Jones Velasquez MD Work Phone: [facility] 02-18-2022 10:05-0500 SaO2% (BldA) [Mass fraction] 97 % Jones Velasquez MD Work Phone: [facility] 02-18-2022 10:05-0500 Systolic blood pressure 128 mm[Hg] Jones Velasquez MD Work Phone: [facility] 08-15-2021 11:38-0400 Body height 157.5 cm Jones Velasquez MD Work Phone: [facility] 08-15-2021 11:38-0400 Body temperature 97.5 [degF] Jones Velasquez MD Work Phone: [facility] 08-15-2021 11:38-0400 Body weight 95.71 kg Jones Velasquez MD Work Phone: [facility] 08-15-2021 11:38-0400 Diastolic blood pressure 64 mm[Hg] Jones Velasquez MD Work Phone: [facility] 08-15-2021 11:38-0400 Heart rate 52 /min Jones Velasquez MD Work Phone: [facility] 08-15-2021 11:38-0400 Respiratory rate 14 /min Jones Velasquez MD Work Phone: [facility] 08-15-2021 11:38-0400 SaO2% (BldA) [Mass fraction] 99 % Jones Velasquez MD Work Phone: [facility] 08-15-2021 11:38-0400 Systolic blood pressure 130 mm[Hg] Jones Velasquez MD Work Phone: [facility] Encounters Encounter Date Encounter Type Care Provider Facility Start: 09-06-2024 End: 09-06-2024 ambulatory ASTRID OLDER Facility:[facility] Start: 09-06-2024 End: 09-06-2024 Patient encounter procedure Sho [facility] Work Phone: Start: 09-06-2024 End: 09-06-2024 [facility] Work Phone: -[facility] Start: 08-16-2024 End: 08-17-2024 Refill Jones Velasquez MD Work Phone: [facility] Comment on above: Refill Request Start: 08-14-2024 End: 08-14-2024 Nursing evaluation of patient and report Mi Nurse Work Phone: Family [facility] Comment on above: Vitamin B 12 deficie ncy (Primary Dx) Start: 08-14-2024 End: 08-14-2024 [facility] Facility:[facility] Start: 07-25-2024 End: 07-25-2024 Office outpatient visit 25 minutes Jones Velasquez MD Work Phone: [facility] Comment on above: Urinary frequency (P rimary Dx); Left flank pain; Acute cystitis with hematuria; 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 Start: 07-25-2024 End: 07-25-2024 [facility] Facility:[facility] Start: 07-17-2024 End: 07-17-2024 Nursing evaluation of patient and report Mi Nurse Work Phone: [facility] Comment on above: Vitamin B 12 deficie ncy (Primary Dx) Start: 07-17-2024 End: 07-17-2024 [facility] Facility:[facility] Start: 06-19-2024 End: 06-19-2024 [facility] Facility:[facility] Start: 06-19-2024 End: 06-19-2024 Nursing evaluation of patient and report Mi Nurse Work Phone: [facility] Comment on above: Vitamin B 12 deficie ncy (Primary Dx) Start: 06-09-2024 End: 06-09-2024 [facility] Facility:[facility] Start: 06-09-2024 End: 06-09-2024 Patient encounter procedure Astrid Muse INSURANCE CLERK.FINISH CLEANER Work Phone: Internal Medicine [facility] Comment on above: Type 2 diabetes maldonado itus with hyperglycemia, without long-term current use of insulin (HCC) (Primary Dx); Occipital stroke (HCC); Essential hypertension; Thyroid nodule Start: 05-22-2024 End: 05-22-2024 [facility] Facility:[facility] Start: 05-22-2024 End: 05-22-2024 Nursing evaluation of patient and report Mi Nurse Work Phone: [facility] Comment on above: Vitamin B 12 deficie ncy (Primary Dx) Start: 04-28-2024 End: 04-28-2024 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 Facility:[facility] Start: 04-03-2024 End: 04-03-2024 ambulatory JUSTIN CHRISTOPHER Facility:[facility] Start: 04-03-2024 End: 04-03-2024 Patient encounter procedure Justin Christopher MD Work Phone: General Surgery Comment on above: Thyroid nodule (Prim cherelle Dx) Start: 03-20-2024 End: 03-20-2024 ambulatory JUSTIN CHRISTOPHER Facility:[facility] Start: 03-20-2024 End: 03-20-2024 Patient encounter procedure Justin Christopher MD Work Phone: General Surgery Comment on above: Thyroid nodule Start: 03-20-2024 End: 03-20-2024 [facility] Facility:[facility] Start: 03-20-2024 End: 03-20-2024 Nursing evaluation of patient and report Mi Nurse Work Phone: [facility] [place] Comment on above: Vitamin B 12 deficie ncy (Primary Dx) Start: 03-15-2024 End: 03-15-2024 [facility] Facility:[facility] Start: 03-15-2024 End: 03-15-2024 Patient encounter procedure Astrid Muse INSURANCE CLERK.FINISH CLEANER Work Phone: [facility] [place] Comment on above: Urinary tract infect ion without hematuria, site unspecified (Primary Dx); Essential hypertension; Diabetes mellitus type 2 with complications (HCC) Start: 03-14-2024 End: 03-14-2024 [place] Facility[facility] Start: 02-21-2024 End: 02-21-2024 Nursing evaluation of patient and report Mi Nurse Work Phone: [facility] [place] Comment on above: Vitamin B 12 deficie ncy (Primary Dx) Start: 02-21-2024 End: 02-21-2024 [facility] Facility:[facility] Start: 02-14-2024 End: 02-14-2024 Telephone encounter Jones Velasquez MD Work Phone: [facility] [place] Comment on above: Orders Refill Request Start: 02-09-2024 End: 02-10-2024 Telephone encounter Astrid Muse APRN.FINISH CLEANER Work Phone: [facility] Comment on above: Results Start: 02-09-2024 End: 02-09-2024 [facility] Facility:[facility] Start: 02-08-2024 End: 02-08-2024 [facility] Start: 02-08-2024 End: 02-08-2024 Subsequent hospital visit by physician [facility] Work Phone: Radiology Comment on above: Thyroid nodule [E04. 1] Start: 02-02-2024 End: 02-02-2024 [facility] Facility:[facility] Start: 02-02-2024 End: 02-02-2024 Patient encounter procedure Astrid Muse INSURANCE CLERK.FINISH CLEANER Work Phone: [facility] Comment on above: History of recent ho spitalization (Primary Dx); Urinary tract infection without hematuria, site unspecified; Hypomagnesemia; Thyroid nodule Start: 01-24-2024 End: 01-24-2024 [facility] Facility:[facility] Start: 01-24-2024 End: 01-24-2024 Nursing evaluation of patient and report Mi Nurse Work Phone: [facility] Comment on above: Vitamin B 12 deficie ncy (Primary Dx) Start: 01-20-2024 End: 01-21-2024 Emergency department patient visit DEX TOUSSAINT MD Facility:[facility] Start: 01-20-2024 End: 01-21-2024 Observation ROMULO Ulloa CECELIA INSURANCE CLERK-FINISH CLEANER [facility] Start: 12-27-2023 End: 12-27-2023 [facility] Facility:[facility] Start: 12-27-2023 End: 12-27-2023 Nursing evaluation of patient and report Mi Nurse Work Phone: [facility] Comment on above: Vitamin B 12 deficie ncy (Primary Dx) Start: 11-29-2023 End: 11-29-2023 Nursing evaluation of patient and report Mi Nurse Work Phone: [facility] Comment on above: Vitamin B 12 deficie ncy (Primary Dx) Start: 11-29-2023 End: 11-29-2023 [facility] Facility:[facility] Start: 11-01-2023 End: 11-01-2023 [facility] Facility:[facility] Start: 11-01-2023 End: 11-01-2023 Nursing evaluation of patient and report Mi Nurse Work Phone: [facility] Comment on above: Vitamin B 12 deficie ncy (Primary Dx) Start: 10-27-2023 End: 10-27-2023 [facility] Facility:[facility] Start: 10-27-2023 End: 10-27-2023 Patient encounter procedure [facility] INSURANCE CLERK.FINISH CLEANER Work Phone: Internal Medicine [facility] Comment on above: Essential hypertensi on (Primary Dx); Diabetes mellitus type 2 with complications (HCC); Mixed hyperlipidemia; Paroxysmal A-fib (HCC); Hypothyroidism, unspecified type Start: 10-26-2023 End: 10-26-2023 ambulatory ASTRID OLDER Facility:[facility] Start: 10-22-2023 End: 10-25-2023 Telephone encounter Jones Velasquez MD Work Phone: [facility] Comment on above: Orders Start: 10-07-2023 Refill Jones Velasquez M D Work Phone: [facility] Comment on above: Refill Request Start: 10-04-2023 End: 10-04-2023 ambulatory JONES VELASQUEZ Facility:[facility] Start: 10-04-2023 End: 10-04-2023 Nursing evaluation of patient and report Mi Nurse Work Phone: [facility] Comment on above: Vitamin B 12 deficie ncy (Primary Dx) Start: 09-07-2023 End: 09-07-2023 Nursing evaluation of patient and report Mi Nurse Work Phone: [facility] Comment on above: Vitamin B 12 deficie ncy (Primary Dx) Start: 08-11-2023 Refill Jones [facility] Work Phone: Internal Medicine [facility] Comment on above: Refill Request Start: 08-09-2023 Refill Jones Velasquez M Srikanth Work Phone: [facility] [place] Comment on above: Refill Request Start: 07-30-2023 End: 07-30-2023 Nursing evaluation of patient and report Mi Nurse Work Phone: [facility] [place] Comment on above: Vitamin B 12 deficie ncy (Primary Dx) Start: 07-05-2023 End: 07-05-2023 Nursing evaluation of patient and report Mi Nurse Work Phone: [facility] Comment on above: Vitamin B 12 deficie ncy (Primary Dx) Start: 06-30-2023 Refill Astrid Older INSURANCE CLERK .FINISH CLEANER Work Phone: [facility] [place] Comment on above: Refill Request Start: 06-08-2023 Refill Astrid Older INSURANCE CLERK .FINISH CLEANER Work Phone: [facility] Comment on above: Refill Request Start: 06-07-2023 End: 06-07-2023 Nursing evaluation of patient and report Mi Nurse Work Phone: [facility] Comment on above: Vitamin B 12 deficie ncy (Primary Dx) Start: 05-10-2023 End: 05-10-2023 Nursing evaluation of patient and report Mi Nurse Work Phone: [facility] [place] Comment on above: Vitamin B 12 deficie ncy (Primary Dx) Start: 04-27-2023 End: 04-27-2023 Patient encounter procedure Renetta Shahnaz LA Work Phone: Internal [facility] Comment on above: Type 2 diabetes maldonado itus with hyperglycemia, without long-term current use of insulin (HCC) (Primary Dx); Cerebrovascular accident (CVA), unspecified mechanism (HCC); Mixed hyperlipidemia; Essential hypertension Start: 04-26-2023 Telephone encounter Renetta Dayne ken PA-C Work Phone: [facility] [place] Comment on above: if patient needs lab s done for appt tomorrow Start: 04-12-2023 End: 04-12-2023 Nursing evaluation of patient and report Mi Nurse Work Phone: [facility] Comment on above: Vitamin B 12 deficie ncy (Primary Dx) Start: 02-11-2023 End: 02-11-2023 Nursing evaluation of patient and report Mi Nurse Work Phone: [facility] Comment on above: Vitamin B 12 deficie ncy (Primary Dx) Start: 01-14-2023 End: 01-14-2023 Nursing evaluation of patient and report Mi Nurse Work Phone: [facility] Comment on above: Vitamin B12 deficien cy (Primary Dx) Start: 01-10-2023 Refill Alethea Older INSURANCE CLERK .FINISH CLEANER Work Phone: [facility] [place] Comment on above: Refill Request Start: 12-17-2022 End: 12-17-2022 Nursing evaluation of patient and report Mi Nurse Work Phone: [facility] [place] Comment on above: Vitamin B12 deficien cy (Primary Dx) Start: 12-09-2022 End: 12-09-2022 Patient encounter procedure Renetta Christie PA-C Work Phone: Internal [facility] Comment on above: Type 2 diabetes maldonado itus with hyperglycemia, without long-term current use of insulin (HCC) (Primary Dx); Acute vaginitis; Cerebrovascular accident (CVA), unspecified mechanism (HCC); Dysuria Start: 11-02-2022 Refill Renetta Christie PA-C Work Phone: [facility] Comment on above: Refill Request Start: 10-14-2022 End: 10-14-2022 Patient encounter procedure Renetta Christie PA-C Work Phone: Internal [facility] Comment on above: Type 2 diabetes maldonado itus with hyperglycemia, without long-term current use of insulin (HCC) (Primary Dx); Essential hypertension; Vitamin B 12 deficiency; Acute vaginitis Start: 10-05-2022 End: 10-05-[address] Jones Velasquez Work Phone: [facility] Work Phone: Start: 10-05-2022 End: 10-05-[address] Jones Velasquez Work Phone: [facility]-Physical Therapy Work Phone: Start: 09-21-2022 Telephone encounter Renetta Oscar jesus manuel IVET-C Work Phone: [facility] Comment on above: Results Start: 09-03-2022 End: 09-03-2022 Patient encounter procedure Astrid Muse APRN.CNP Work Phone: [facility] Comment on above: History of recent ho spitalization (Primary Dx); Cerebrovascular accident (CVA), unspecified mechanism (HCC); Weakness of right lower extremity; Urinary frequency; Other fatigue; Blood in stool; Left upper quadrant abdominal tenderness without rebound tenderness; Nausea and vomiting, unspecified vomiting type Start: 08-28-2022 Non-patient / Non-visit Dr. Ron Velasquez Work Phone: [facility] [facility] Start: 08-27-2022 Non-patient / Non-visit Dr. Ron Velasquez Work Phone: [facility] Start: 08-27-2022 Non-patient / Non-visit Dr. Ron Velasquez Work Phone: [facility] Start: 08-26-2022 Non-patient / Non-visit Dr. Ron Velasquez Work Phone: [facility] Start: 08-26-2022 Non-patient / Non-visit Dr. Ron Velasquez Work Phone: [facility] Start: 08-25-2022 End: 08-28-2022 Evaluation and management of inpatient Dr. Jones Velasquez Work Phone: [facility]-Progressive Care Unit Start: 08-21-[address] Shane Velasquez Work Phone: [facility]-Physical Therapy Start: 08-12-2022 End: 08-12-[address] Jones Velasquez Work Phone: [facility] Start: 08-10-2022 Refill Astrid Muse APRN, .CNP Work Phone: [facility] [place] Comment on above: Refill Request disk request Start: 08-04-2022 Telephone encounter Jones ren MD Work Phone: [facility] [place] Comment on above: Medication Problem Start: 07-16-2022 Telephone encounter Astrid Muse APRN.FINISH CLEANER Work Phone: [facility] [place] Comment on above: Results Start: 07-16-2022 End: 07-16-[address] Jones Velasquez Work Phone: [facility]-Outpatient Breast Imaging Start: 07-13-2022 End: 07-13-2022 Subsequent hospital visit by physician Jacobo [facility] Work Phone: Radiology Comment on above: Acute right-sided lo w back pain with right-sided sciatica [M54.41] Start: 06-29-2022 End: 06-29-2022 Nursing evaluation of patient and report Mi Nurse Work Phone: [facility] Comment on above: Vitamin B12 deficien cy (Primary Dx) Start: 06-18-2022 ambulatory Jodi Lyles JAY [facility] Comment on above: Population Health Na vigation Outreach ([employer] Care Gaps 4.5.23) Start: 06-04-2022 Telephone encounter Jones ren MD Work Phone: [facility] [place] Comment on above: Medication clarifica tion Start: 06-04-2022 End: 06-04-2022 Patient encounter procedure Astrid Muse APRN.FINISH CLEANER Work Phone: [facility] [place] Comment on above: 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); Essential hypertension; Colon cancer screening Start: 06-01-2022 End: 06-01-2022 Nursing evaluation of patient and report Mi Nurse Work Phone: [facility] [place] Comment on above: Vitamin B12 deficien cy (Primary Dx) Start: 05-04-2022 End: 05-04-2022 Nursing evaluation of patient and report Mi Nurse Work Phone: [facility] Comment on above: Vitamin B12 deficien cy (Primary Dx) Start: 05-01-2022 ambulatory [facility] [place] Comment on above: Population Health Na vigation Outreach ([employer] Care Gaps) Start: 04-15-2022 ambulatory Jones [facility] Work Phone: [facility] Comment on above: Britney Sierraog eunice Start: 03-24-2022 Telephone encounter Jones ren MD Work Phone: [facility] [place] Comment on above: Orders Start: 03-11-2022 End: 03-11-2022 Nursing evaluation of patient and report Mi Nurse Work Phone: [facility] [place] Comment on above: Vitamin B12 deficien cy (Primary Dx) Start: 02-18-2022 End: 02-18-2022 Patient encounter procedure Jones Velasquez MD Work Phone: [facility] [place] Comment on above: 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); Mixed hyperlipidemia; Essential hypertension; Paroxysmal A-fib (HCC) Start: 02-05-2022 End: 02-05-2022 Nursing evaluation of patient and report Mi Nurse Work Phone: [facility] Comment on above: Vitamin B12 deficien cy (Primary Dx) Start: 02-03-2022 ambulatory Jessica [facility] [place] Comment on above: Population Health Na vigation Outreach ([employer] care gap) Start: 01-07-2022 End: 01-07-2022 Nursing evaluation of patient and report Mi Nurse Work Phone: [facility] Comment on above: Vitamin B12 deficien cy (Primary Dx) Start: 12-08-2021 End: 12-08-2021 Nursing evaluation of patient and report Mi Nurse Work Phone: [facility] Comment on above: Vitamin B12 deficien cy (Primary Dx) Start: 11-18-2021 Telephone encounter Jones ren MD Work Phone: Radiology Comment on above: Lab Orders Start: 11-07-2021 End: 11-07-2021 Nursing evaluation of patient and report Mi Nurse Work Phone: [facility] [place] Comment on above: Vitamin B12 deficien cy (Primary Dx) Start: 10-23-2021 ambulatory May[facility] ([facility]ss[facility] [place] Comment on above: Population Health Na vigation Outreach ([employer] Care Gaps) Start: 10-13-2021 Telephone encounter Jones ren MD Work Phone: [facility] [place] Comment on above: Results Start: 10-10-2021 End: 10-10-2021 Nursing evaluation of patient and report Mi Nurse Work Phone: [facility] Comment on above: Vitamin B12 deficien cy (Primary Dx) Start: 09-12-2021 End: 09-12-2021 Nursing evaluation of patient and report Mi Nurse Work Phone: [facility] Comment on above: Vitamin B12 deficien cy (Primary Dx) Start: 08-15-2021 End: 08-15-2021 Nursing evaluation of patient and report Mi Nurse Work Phone: [facility] Comment on above: Vitamin B12 deficien cy (Primary Dx) Start: 08-15-2021 End: 08-15-2021 Patient encounter procedure Jones Velasquez MD Work Phone: [facility] [place] Comment on above: Leukocytosis, unspec ified type (Primary Dx); Hypothyroidism, unspecified type; Diabetes mellitus type 2 with complications (HCC) Start: 07-23-2021 Telephone encounter Jones ren MD Work Phone: [facility] [place] Comment on above: Orders Start: 07-15-2021 End: 07-15-2021 Nursing evaluation of patient and report Mi Nurse Work Phone: [facility] Comment on above: Vitamin B12 deficien cy (Primary Dx) [facility]: [facility] Population Health Na vigation Outreach ([employer] Care Gap) Start: 06-10-2021 End: 06-10-2021 Nursing evaluation of patient and report Mi Nurse Work Phone: [facility] [place] Comment on above: Vitamin B12 deficien cy (Primary Dx) Procedures Date Procedure Procedure Detail Performing Clinician Start: 07-25-2024 Urnls dip stick/tabl et rgnt auto w/o microscopy Jones Velasquez MD Work Phone: Start: 04-03-2024 US THYROID BIOPSY LE FT (POC) SURG USE ONLY Justin Christopher MD Work Phone: Start: 04-03-2024 Cytp eval fine needl e aspirate interp & report Justin Christopher MD Work Phone: Start: 08-26-[address] Shane Velasquez Work Phone: Start: 08-25-2022 MRI of brain without contrast Dr. Jones Velasquez Work Phone: Start: 08-25-2022 Plain chest X-ray Dr. Lew Velasquez Work Phone: Start: 08-25-2022 CT angiography of he ad and neck Dr. Jones Velasquez Work Phone: Start: 08-25-2022 CT of head without contrast Dr. Jones Velasquez Work Phone: Start: 07-16-2022 Screening mammography Srikanth Velasquez Work Phone: Start: 07-13-2022 Radex spine lumbosac ral 2/3 views Astrid Older INSURANCE CLERK.FINISH CLEANER Work Phone: Start: 08-15-2021 Adult depression scr eening assessment Mi Nurse Work Phone: Start: 12-18-2020 Mammography Mi Nurse Work Phone: Start: 05-15-2020 Adult depression scr eening assessment Mi Nurse Work Phone: Cholecystectomy ROMULO CECELIA INSURANCE CLERK-FINISH CLEANER Plan of Treatment Date Care Activity Detail Author Start: 01-16-2030 Urine microalbumin profile [facility] Start: 07-25-2025 Annual PCP Team Product Safety Specialist ramirez Disease Visit Annual PCP Team Chronic Disease Visit [facility] Start: 07-25-2025 BP Controlled (<130/80) BP Controlle d (<130/80) [facility] Start: 07-12-2025 Glaucoma screening Dilated Retinal E xam [facility] Start: 06-17-2025 COLOGUARD (FIT-DNA) COLOGUARD (FIT-D NA) [facility] Start: 06-17-2025 COLORECTAL CANCER SCREENING COLORECTAL CANCER SCREENING [facility] Start: 06-09-2025 Annual PCP Team Product Safety Specialist ramirez Disease Visit Annual PCP Team Chronic Disease Visit [facility] Start: 06-09-2025 BP Controlled (<130/80) BP Controlle d (<130/80) [facility] Start: 04-28-2025 Annual PCP Team Product Safety Specialist ramirez Disease Visit Annual PCP Team Chronic Disease Visit [facility] Start: 04-28-2025 BP Controlled (<130/80) BP Controlle d (<130/80) [facility] Start: 04-26-2025 Hepatitis B screening Urine Albumin:Creatinine Ratio [facility] Start: 04-26-2025 Hepatitis B surface antibody level LDL Cholesterol [facility] Start: 03-20-2025 BP Controlled (<130/80) BP Controlle d (<130/80) [facility] Start: 03-15-2025 Annual PCP Team Product Safety Specialist ramirez Disease Visit Annual PCP Team Chronic Disease Visit [facility] Start: 03-15-2025 BP Controlled (<130/80) BP Controlle d (<130/80) [facility] Start: 02-01-2025 Annual PCP Team Product Safety Specialist ramirez Disease Visit Annual PCP Team Chronic Disease Visit [facility] Start: 02-01-2025 BP Controlled (<130/80) BP Controlle d (<130/80) [facility] Start: 12-01-2024 Glaucoma screening Dilated Retinal E xam [facility] Start: 10-26-2024 Annual PCP Team Product Safety Specialist ramirez Disease Visit Annual PCP Team Chronic Disease Visit [facility] Start: 10-26-2024 BP Controlled (<130/80) BP Controlle d (<130/80) [facility] Start: 10-26-2024 Covid-19 Vaccine ( season) Covid-19 Vaccine ( season) [facility] Comment on above: Postponed from 05/13 (Declined at this time) Start: 10-26-2024 RSV Vaccine (1 - 1-d ose 60+ series) RSV Vaccine (1 - 1-dose 60+ series) [facility] Comment on above: Postponed from 09/29 (Declined at this time) Start: 10-26-2024 RSV Vaccine (1 - 1-d ose 75+ series) RSV Vaccine (1 - 1-dose 75+ series) [facility] Comment on above: Postponed from 09/29 (Declined at this time) Start: 10-24-2024 Hemoglobin A1c measurement HbA1C [facility] Start: 09-11-2024 End: 09-11-2024 Nursing evaluation of patient and report 09/11/2024 11:30 AM EDT Nurse Visit Family Medicine [facility] [address] [place] [address] [place] [address] [place] [address] B-12 injection Family [facility] Comment on above: B-12 injection Start: 09-11-2024 End: 09-11-2024 Patient encounter procedure 09/11/2024 9:40 AM EDT Office Visit Internal Medicine [facility] [address] [place] [address] Astrid Muse APRN.FINISH CLEANER [address] [place] [address] 3 month follow up Internal Medicine [facility] Comment on above: 3 month follow up Start: 09-08-2024 End: 12-08-2024 Basic metabolic 2000 panel - Serum or Plasma BASIC METABOLIC PANEL Lab Routine Type 2 diabetes mellitus with hyperglycemia, without long-term current use of insulin (HCC) Essential hypertension Expected: 09/08/2024 (Approximate), Expires: 12/08/2024 [facility] Comment on above: Expected: 09/08/2024 (Approximate), Expires: 12/08/2024 Start: 09-08-2024 End: 12-08-2024 CBC W Auto Differential panel - Blood COMPLETE BLOOD COUNT AND DIFFERENTIAL Lab Routine Type 2 diabetes mellitus with hyperglycemia, without long-term current use of insulin (HCC) Essential hypertension Expected: 09/08/2024 (Approximate), Expires: 12/08/2024 [facility] Comment on above: Expected: 09/08/2024 (Approximate), Expires: 12/08/2024 Start: 09-08-2024 End: 12-08-2024 Hemoglobin A1c in Blood HEMOGLOBIN A1C Lab Routine Type 2 diabetes mellitus with hyperglycemia, without long-term current use of insulin (HCC) Expected: 09/08/2024 (Approximate), Expires: 12/08/2024 [facility] Comment on above: Expected: 09/08/2024 (Approximate), Expires: 12/08/2024 Start: 09-08-2024 End: 12-08-2024 Thyrotropin [Units/volume] in Serum or Plasma THYROID STIMULATING HORMONE Lab Routine Thyroid nodule Expected: 09/08/2024 (Approximate), Expires: 12/08/2024 [facility] Work Phone: Comment on above: Expected: 09/08/2024 (Approximate), Expires: 12/08/2024 Start: 08-14-2024 End: 08-14-2024 Nursing evaluation of patient and report 08/14/2024 11:45 AM EDT Nurse Visit [facility] [place] [address] [place] [address] Nurse, [place] [address] [place] [address] B-12 injection [facility] Comment on above: B-12 injection Start: 07-19-2024 Hemoglobin A1c measurement HbA1C [facility] Start: 07-17-2024 End: 07-17-2024 Nursing evaluation of patient and report 07/17/2024 11:45 AM EDT Nurse Visit Family [facility] [place] [address] [facility] [place] [address] Nurse, [place] [address] [place] [address] B-12 injection [facility] [place] Comment on above: B-12 injection Start: 06-19-2024 End: 06-19-2024 Nursing evaluation of patient and report 06/19/2024 11:45 AM EDT Nurse Visit [facility] [place] [address] [place] [address] Nurse, [place] [address] [place] [address] B-12 injection [facility] Comment on above: B-12 injection Start: 06-09-2024 End: 06-09-2024 Patient encounter procedure 06/09/2024 10:00 AM EDT Office Visit Internal Medicine [facility] [address] [facility] [place] [address] Astrid Muse APRN.FINISH CLEANER [address] [facility] [place] [address] 6 week follow up UTI and jardiance [facility] [place] Comment on above: 6 week follow up UTI and jardiance Start: 05-30-2024 Covid-19 Vaccine ( season) Covid-19 Vaccine () [facility] Start: 05-22-2024 End: 05-22-2024 Nursing evaluation of patient and report 05/22/2024 11:45 AM EDT Nurse Visit Family Medicine [facility] [address] [place] [address] Nurse, [place] [address] [place] [address] B-12 injection [facility] Comment on above: B-12 injection Start: 04-28-2024 End: 04-28-2024 Patient encounter procedure [facility] [place] Comment on above: 6 month follow up 6 month follow up; B -12 injection Start: 04-27-2024 Annual PCP Team Product Safety Specialist ramirez Disease Visit Annual PCP Team Chronic Disease Visit [facility] Start: 04-27-2024 BP Controlled (<130/80) BP Controlle d (<130/80) [facility] Start: 04-27-2024 Hemoglobin A1c measurement HbA1C [facility] Start: 04-27-2024 Hepatitis B surface antibody level LDL Cholesterol [facility] Start: 04-10-2024 End: 07-10-2024 CBC panel - Blood by Automated count COMPLETE BLOOD COUNT Lab Routine Essential hypertension Diabetes mellitus type 2 with complications (HCC) Expected: 04/10/2024 (Approximate), Expires: 07/10/2024 [facility] Comment on above: Expected: 04/10/2024 (Approximate), Expires: 07/10/2024 Start: 04-10-2024 End: 07-10-2024 Comprehensive metabolic 2000 panel - Serum or Plasma COMPREHENSIVE METABOLIC PANEL Lab Routine Essential hypertension Mixed hyperlipidemia Diabetes mellitus type 2 with complications (HCC) Expected: 04/10/2024 (Approximate), Expires: 07/10/2024 [facility] Comment on above: Expected: 04/10/2024 (Approximate), Expires: 07/10/2024 Start: 04-10-2024 End: 07-10-2024 Hemoglobin A1c in Blood HEMOGLOBIN A1C Lab Routine Diabetes mellitus type 2 with complications (HCC) Expected: 04/10/2024 (Approximate), Expires: 07/10/2024 [facility] Comment on above: Expected: 04/10/2024 (Approximate), Expires: 07/10/2024 Start: 04-10-2024 End: 07-10-2024 Lipid 1996 panel - Serum or Plasma LIPID PANEL BASIC Lab Routine Mixed hyperlipidemia Expected: 04/10/2024 (Approximate), Expires: 07/10/2024 [facility] Comment on above: Expected: 04/10/2024 (Approximate), Expires: 07/10/2024 Start: 04-10-2024 End: 07-10-2024 Thyrotropin [Units/volume] in Serum or Plasma THYROID STIMULATING HORMONE Lab Routine Hypothyroidism, unspecified type Expected: 04/10/2024 (Approximate), Expires: 07/10/2024 [facility] Comment on above: Expected: 04/10/2024 (Approximate), Expires: 07/10/2024 Start: 04-03-2024 End: 04-03-2024 Patient encounter procedure 04/03/2024 1:00 PM EST Office Visit General Surgery [address] [place] [address] Justin Christopher MD [address] [place] [address] fna left thyroid General Surgery Comment on above: fna left thyroid Start: 03-20-2024 End: 03-20-2024 Patient encounter procedure 03/20/2024 1:15 PM EST Office Visit General Surgery [address] [place] [address] Justin Christopher MD [address] [place] [address] Thyroid nodule [E04.1], 02/08/24, US thyroid, s General Surgery Comment on above: Thyroid nodule [E04. 1], 02/08/24, US thyroid, s Start: 03-20-2024 End: 03-20-2024 Nursing evaluation of patient and report 03/20/2024 11:45 AM EST Nurse Visit Family Medicine [facility] [address] [place] [address] Nurse, [place] [address] [place] [address] B-12 injection [facility] Comment on above: B-12 injection Start: 03-15-2024 End: 06-14-2024 Microalbumin/Creatinine [Mass Ratio] in Urine ALBUMIN/CREATININE RATIO, URINE Lab Routine Diabetes mellitus type 2 with complications (HCC) Expected: 03/15/2024, Expires: 06/14/2024 [facility] Work Phone: Comment on above: Expected: 03/15/2024 , Expires: 06/14/2024 Start: 03-15-2024 End: 06-14-2024 Urinalysis complete panel - Urine URINALYSIS (WITH MICROSCOPIC) WITH CULTURE IF INDICATED Lab Routine Urinary tract infection without hematuria, site unspecified Expected: 03/15/2024, Expires: 06/14/2024 [facility] Comment on above: Expected: 03/15/2024 , Expires: 06/14/2024 Start: 03-15-2024 End: 03-15-2024 Patient encounter procedure 03/15/2024 10:20 AM EST Office Visit Internal Medicine [facility] [address] [facility], [place] [phone] Astrid Muse APRN.FINISH CLEANER [address] [place], [place] [phone] 6 WEEK FOLLOW UP [facility] [place] Comment on above: 6 WEEK FOLLOW UP Start: 03-08-2024 Medicare Advantage A nnual Wellness Visit Medicare Advantage Annual Wellness Visit [facility] Start: 02-23-2024 End: 02-23-2024 Patient encounter procedure General Surgery Comment on above: Thyroid nodule [E04. 1] needs R/S with [facility] or [employer], message sent....Thyroid nodule [E04.1], 02/08/24, US thyroid, mjs Start: 02-21-2024 End: 02-21-2024 Nursing evaluation of patient and report 02/21/2024 11:45 AM EST Nurse Visit Family Medicine [place] [address] [facility], [place] [phone] [place], [place] [address] [facility], [place] [id number] B-12 injection Family [facility] Comment on above: B-12 injection Start: 02-09-2024 End: 05-10-2024 Basic metabolic 2000 panel - Serum or Plasma BASIC METABOLIC PANEL Lab Routine Urinary tract infection without hematuria, site unspecified Hypomagnesemia Expected: 02/09/2024 (Approximate), Expires: 05/10/2024 [facility] Comment on above: Expected: 02/09/2024 (Approximate), Expires: 05/10/2024 Start: 02-09-2024 End: 05-10-2024 Magnesium [Mass/volume] in Serum or Plasma MAGNESIUM Lab Routine Urinary tract infection without hematuria, site unspecified Hypomagnesemia Expected: 02/09/2024 (Approximate), Expires: 05/10/2024 [facility] Comment on above: Expected: 02/09/2024 (Approximate), Expires: 05/10/2024 Start: 02-09-2024 End: 05-10-2024 Urinalysis complete panel - Urine URINALYSIS WITH MICROSCOPIC, REFLEX CULTURE Lab Routine Urinary tract infection without hematuria, site unspecified Hypomagnesemia Expected: 02/09/2024 (Approximate), Expires: 05/10/2024 [facility] Work Phone: Comment on above: Expected: 02/09/2024 (Approximate), Expires: 05/10/2024 Start: 02-08-2024 End: 02-08-2024 Patient encounter procedure 02/08/2024 7:45 AM EST Appointment Radiology [address] [place] [address] Thyroid nodule [E04.1] Radiology Comment on above: Thyroid nodule [E04. 1] Start: 01-24-2024 End: 01-24-2024 Nursing evaluation of patient and report 01/24/2024 1:15 PM EST Nurse Visit Family Medicine [place] [address] [place] [address] Nurse, [address] [place] [address] B-12 injection [facility] [place] Comment on above: B-12 injection Start: 12-27-2023 End: 12-27-2023 Nursing evaluation of patient and report 12/27/2023 1:15 PM EDT Nurse Visit Family Medicine [facility] [address] [place] [address] Nurse [facility] [place] [address] B-12 injection Family Medicine [facility] Comment on above: B-12 injection Start: 12-10-2023 Annual PCP Team Product Safety Specialist ramirez Disease Visit Annual PCP Team Chronic Disease Visit [facility] Start: 12-10-2023 BP Controlled (<130/80) BP Controlle d (<130/80) [facility] Start: 11-29-2023 End: 11-29-2023 Nursing evaluation of patient and report 11/29/2023 1:15 PM EDT Nurse Visit Family Medicine [facility] [address] [place] [address] Nurse, [place] [address] [facility] [place] [phone] B-12 injection [facility] Medicine [place] Comment on above: B-12 injection Start: 11-07-2023 Covid-19 Vaccine () Covid-19 Vaccine () [facility] Start: 11-07-2023 Influenza vaccination Influenza Vacc ine (#1) [facility] Start: 11-01-2023 End: 11-01-2023 Nursing evaluation of patient and report 11/01/2023 1:15 PM EDT Nurse Visit Family [facility] [place] [address] [facility] [place] [address] Nurse, [place] [address] [facility], [place] [phone] B-12 injection [facility] [place] Comment on above: B-12 injection Start: 10-27-2023 End: 01-26-2024 Microalbumin/Creatinine [Mass Ratio] in Urine ALBUMIN/CREATININE RATIO, URINE Lab Routine Diabetes mellitus type 2 with complications (HCC) Expected: 10/27/2023, Expires: 01/26/2024 [facility] Work Phone: Comment on above: Expected: 10/27/2023 , Expires: 01/26/2024 Start: 10-27-2023 End: 10-27-2023 Patient encounter procedure 10/27/2023 10:00 AM EDT Office Visit Internal Medicine [facility] [address] [facility], [place] [phone] Astrid Muse APRN.FINISH CLEANER [address] [place], [place] [phone] 6 month follow up- labs Internal Medicine [facility] Comment on above: 6 month follow up- l abs Start: 10-26-2023 Hemoglobin A1c measurement HbA1C [facility] Start: 10-25-2023 End: 01-24-2024 Basic metabolic 2000 panel - Serum or Plasma BASIC METABOLIC PANEL Lab Routine Essential hypertension Paroxysmal A-fib (HCC) Diabetes mellitus type 2 with complications (HCC) Expected: 10/25/2023, Expires: 01/24/2024 [facility] Comment on above: Expected: 10/25/2023 , Expires: 01/24/2024 Start: 10-25-2023 End: 01-24-2024 CBC panel - Blood by Automated count COMPLETE BLOOD COUNT Lab Routine Essential hypertension Paroxysmal A-fib (HCC) Diabetes mellitus type 2 with complications (HCC) Expected: 10/25/2023, Expires: 01/24/2024 [facility] Work Phone: Comment on above: Expected: 10/25/2023 , Expires: 01/24/2024 Start: 10-25-2023 End: 01-24-2024 Hemoglobin A1c in Blood HEMOGLOBIN A1C Lab Routine Diabetes mellitus type 2 with complications (HCC) Expected: 10/25/2023, Expires: 01/24/2024 [facility] Comment on above: Expected: 10/25/2023 , Expires: 01/24/2024 Start: 10-25-2023 End: 01-24-2024 Thyrotropin [Units/volume] in Serum or Plasma THYROID STIMULATING HORMONE Lab Routine Hypothyroidism, unspecified type Expected: 10/25/2023, Expires: 01/24/2024 [facility] Comment on above: Expected: 10/25/2023 , Expires: 01/24/2024 Start: 10-15-2023 ANNUAL PCP TEAM SHELLFISH SORTER RAMIREZ DISEASE VISIT ANNUAL PCP TEAM CHRONIC DISEASE VISIT [facility] Start: 10-15-2023 BP CONTROLLED (<130/80) BP CONTROLLE D (<130/80) [facility] Start: 10-04-2023 End: 10-04-2023 Nursing evaluation of patient and report 10/04/2023 1:15 PM EDT Nurse Visit Family Medicine [facility] [phone] [facility] [place] [address] Nurse, [place] [address] [place] [address] B-12 injection Family [facility] [place] Comment on above: B-12 injection Start: 09-19-2023 ANNUAL PCP TEAM SHELLFISH SORTER RAMIREZ DISEASE VISIT ANNUAL PCP TEAM CHRONIC DISEASE VISIT [facility] Start: 09-19-2023 BP CONTROLLED (<130/80) BP CONTROLLE D (<130/80) [facility] Start: 09-07-2023 End: 09-07-2023 Nursing evaluation of patient and report 09/07/2023 10:45 AM EDT Nurse Visit Family Medicine [place] [address] [place] [address] Nurse, [place] [address] [place] [address] B-12 injection Family [facility] Comment on above: B-12 injection Start: 09-04-2023 ANNUAL PCP TEAM SHELLFISH SORTER RAMIREZ DISEASE VISIT ANNUAL PCP TEAM CHRONIC DISEASE VISIT [facility] Start: 08-05-2023 ANNUAL PCP TEAM SHELLFISH SORTER RAMIREZ DISEASE VISIT ANNUAL PCP TEAM CHRONIC DISEASE VISIT [facility] Start: 07-05-2023 End: 07-05-2023 Nursing evaluation of patient and report 07/05/2023 1:15 PM EDT Nurse Visit Family Medicine [place] [address] [place] [address] Nurse, [place] [address] [place] [address] B-12 injection [facility] Comment on above: B-12 injection Start: 06-08-2023 Hemoglobin A1c measurement HbA1C [facility] Start: 06-08-2023 Hemoglobin A1c/Hemoglobin.total in Blood HbA1C [facility] Start: 06-05-2023 ANNUAL PCP TEAM SHELLFISH SORTER RAMIREZ DISEASE VISIT ANNUAL PCP TEAM CHRONIC DISEASE VISIT [facility] Start: 05-22-2023 Hepatitis B surface antibody level LDL CHOLESTEROL [facility] Start: 05-14-2023 Covid-19 Vaccine () Covid-19 Vaccine () [facility] Start: 04-26-2023 End: 07-26-2023 CBC W Auto Differential panel - Blood CBC + DIFF Lab Routine Essential hypertension Mixed hyperlipidemia Vitamin B 12 deficiency Type 2 diabetes mellitus with hyperglycemia, without long-term current use of insulin (HCC) Expected: 04/26/2023, Expires: 07/26/2023 [facility] Work Phone: Comment on above: Expected: 04/26/2023 , Expires: 07/26/2023 Start: 04-26-2023 End: 07-26-2023 Cobalamin (Vitamin B12) [Mass/volume] in Serum or Plasma VITAMIN B12 BLOOD Lab Routine Vitamin B 12 deficiency Expected: 04/26/2023, Expires: 07/26/2023 [facility] Work Phone: Comment on above: Expected: 04/26/2023 , Expires: 07/26/2023 Start: 04-26-2023 End: 07-26-2023 Comprehensive metabolic 2000 panel - Serum or Plasma COMP METABOLIC PANEL Lab Routine Essential hypertension Type 2 diabetes mellitus with hyperglycemia, without long-term current use of insulin (HCC) Expected: 04/26/2023, Expires: 07/26/2023 [facility] Work Phone: Comment on above: Expected: 04/26/2023 , Expires: 07/26/2023 Start: 04-26-2023 End: 07-26-2023 Hemoglobin A1c in Blood HGB A1C Lab Routine Mixed hyperlipidemia Type 2 diabetes mellitus with hyperglycemia, without long-term current use of insulin (HCC) Expected: 04/26/2023, Expires: 07/26/2023 [facility] Work Phone: Comment on above: Expected: 04/26/2023 , Expires: 07/26/2023 Start: 04-26-2023 End: 07-26-2023 Lipid 1996 panel - Serum or Plasma LIPID PANEL BASIC Lab Routine Essential hypertension Mixed hyperlipidemia Type 2 diabetes mellitus with hyperglycemia, without long-term current use of insulin (HCC) Expected: 04/26/2023, Expires: 07/26/2023 [facility] Work Phone: Comment on above: Expected: 04/26/2023 , Expires: 07/26/2023 Start: 04-26-2023 End: 07-26-2023 Thyrotropin [Units/volume] in Serum or Plasma TSH BLD Lab Routine Type 2 diabetes mellitus with hyperglycemia, without long-term current use of insulin (HCC) Paroxysmal A-fib (HCC) Expected: 04/26/2023, Expires: 07/26/2023 [facility] Work Phone: Comment on above: Expected: 04/26/2023 , Expires: 07/26/2023 Start: 03-08-2023 Advance Directive Discussion Advance Directive Discussion [facility] Start: 03-08-2023 Behavioral Health Screening Behavioral Health Screening [facility] Start: 03-08-2023 Depression Assessment Depression Ass essment [facility] Start: 02-18-2023 ANNUAL PCP TEAM SHELLFISH SORTER RAMIREZ DISEASE VISIT ANNUAL PCP TEAM CHRONIC DISEASE VISIT [facility] Start: 02-18-2023 BP CONTROLLED (<130/80) BP CONTROLLE D (<130/80) [facility] Start: 02-17-2023 Glaucoma screening Dilated Retinal E xam [facility] Start: 02-17-2023 Hepatitis C antibody , confirmatory test DILATED RETINAL EXAM [facility] Start: 01-09-2023 Hemoglobin A1c/Hemoglobin.total in Blood HBA1C [facility] Start: 12-19-2022 Hemoglobin A1c/Hemoglobin.total in Blood HBA1C [facility] Start: 12-09-2022 End: 02-08-2023 Bacteria identified in Urine by Culture URINE CULTURE Microbiology Routine Dysuria Expected: 12/09/2022, Expires: 02/08/2023 [facility] Work Phone: Comment on above: Expected: 12/09/2022 , Expires: 02/08/2023 Start: 12-09-2022 End: 02-08-2023 URINALYSIS, DIPSTICK ONLY URINALYSIS, DIPSTICK ONLY Lab Routine Dysuria Expected: 12/09/2022, Expires: 02/08/2023 [facility] Work Phone: Comment on above: Expected: 12/09/2022 , Expires: 02/08/2023 Start: 11-28-2022 End: 01-28-2023 Hemoglobin A1c in Blood HGB A1C Lab Routine Type 2 diabetes mellitus with hyperglycemia, without long-term current use of insulin (HCC) Expected: 11/28/2022 (Approximate), Expires: 01/28/2023 [facility] Work Phone: Comment on above: Expected: 11/28/2022 (Approximate), Expires: 01/28/2023 Start: 11-21-2022 3 comp foot exam completed DIABETIC FOOT EXAM [facility] Start: 11-21-2022 ANNUAL PCP TEAM SHELLFISH SORTER RAMIREZ DISEASE VISIT ANNUAL PCP TEAM CHRONIC DISEASE VISIT [facility] Start: 11-21-2022 BP CONTROLLED (<130/80) BP CONTROLLE D (<130/80) [facility] Start: 11-21-2022 Diabetic foot examination Diabetic F oot Exam [facility] Start: 11-19-2022 Hepatitis B surface antibody level LDL CHOLESTEROL [facility] Start: 11-06-2022 Covid-19 Vaccine ( season) Covid-19 Vaccine ( season) [facility] Start: 11-06-2022 Influenza vaccination INFLUENZA (#1) [facility] Start: 10-05-2022 End: 12-05-2022 ALBUMIN/CREAT RATIO RND UR ALBUMIN/CREAT RATIO RND UR Lab Routine Diabetes mellitus type 2 with complications (HCC) Expected: 10/05/2022 (Approximate), Expires: 12/05/2022 [facility] Work Phone: Comment on above: Expected: 10/05/2022 (Approximate), Expires: 12/05/2022 Start: 10-05-2022 End: 12-05-2022 Basic metabolic 2000 panel - Serum or Plasma BASIC METABOLIC PNL Lab Routine Diabetes mellitus type 2 with complications (HCC) Essential hypertension Expected: 10/05/2022 (Approximate), Expires: 12/05/2022 [facility] Work Phone: Comment on above: Expected: 10/05/2022 (Approximate), Expires: 12/05/2022 Start: 10-05-2022 End: 12-05-2022 CBC W Auto Differential panel - Blood CBC + DIFF Lab Routine Diabetes mellitus type 2 with complications (HCC) Essential hypertension Expected: 10/05/2022 (Approximate), Expires: 12/05/2022 [facility] Work Phone: Comment on above: Expected: 10/05/2022 (Approximate), Expires: 12/05/2022 Start: 10-05-2022 End: 12-05-2022 Hemoglobin A1c in Blood HGB A1C Lab Routine Diabetes mellitus type 2 with complications (HCC) Expected: 10/05/2022 (Approximate), Expires: 12/05/2022 [facility] Work Phone: Comment on above: Expected: 10/05/2022 (Approximate), Expires: 12/05/2022 Start: 09-03-2022 End: 11-03-2022 Amylase [Enzymatic activity/volume] in Serum or Plasma [facility] Work Phone: Comment on above: Expected: 09/03/2022 , Expires: 11/03/2022 Start: 09-03-2022 End: 11-03-2022 Bacteria identified in Urine by Culture URINE CULTURE Microbiology Routine Urinary frequency Expected: 09/03/2022, Expires: 11/03/2022 [facility] Work Phone: Comment on above: Expected: 09/03/2022 , Expires: 11/03/2022 Start: 09-03-2022 End: 11-03-2022 Comprehensive metabolic 2000 panel - Serum or Plasma [facility] Work Phone: Comment on above: Expected: 09/03/2022 , Expires: 11/03/2022 Start: 09-03-2022 End: 11-03-2022 Lipase [Enzymatic activity/volume] in Serum or Plasma [facility] Work Phone: Comment on above: Expected: 09/03/2022 , Expires: 11/03/2022 Start: 09-03-2022 End: 11-03-2022 Urinalysis complete panel - Urine URINALYSIS, WITH MICROSCOPIC Lab Routine Urinary frequency Expected: 09/03/2022, Expires: 11/03/2022 [facility] Work Phone: Comment on above: Expected: 09/03/2022 , Expires: 11/03/2022 Start: 08-30-2022 [facility] Start: 08-29-2022 [facility] Start: 08-28-2022 Patient discharge [facility] Start: 08-26-2022 Following clinical p athway protocol [facility] Start: 08-26-2022 [facility] Start: 08-26-2022 Telepractice consultation [facility] Start: 08-26-2022 [facility] Start: 08-26-2022 Thyroid stimulating hormone measurement [facility] Start: 08-25-2022 Following clinical p athway protocol [facility] Start: 08-25-2022 Assessment of risk o f venous thromboembolism [facility] Start: 08-25-2022 Cardiac monitoring [facility] Start: 08-25-2022 Care regimes management [facility] Start: 08-25-2022 Catheterization of vein [facility] Start: 08-25-2022 Continuous pulse oximetry [facility] Start: 08-25-2022 Elevation of head of bed [facility] Start: 08-25-2022 Exercises [facility] Start: 08-25-[address] anned interventions [facility] Start: 08-25-2022 Insertion of cathete r into peripheral vein [facility] Start: 08-25-2022 Measuring intake and output [facility] Start: 08-25-2022 Notification of physician [facility] Start: 08-25-2022 Oxygen therapy [facility] Start: 08-25-2022 Providing care accor ding to standard [facility] Start: 08-25-2022 Provision of activit y privileges [facility] Start: 08-25-2022 Referral to occupati onal therapist [facility] Start: 08-25-2022 Referral to service [facility] Start: 08-25-2022 Speech therapy assessment [facility] Start: 08-25-2022 Tobacco use cessatio n education [facility] Start: 08-25-2022 [facility] Start: 08-25-2022 MRI of brain without contrast Brain without Contrast [facility] Start: 08-25-2022 Verification routine [facility] Start: 08-25-2022 Admission procedure [facility] Start: 08-25-2022 Oxygen therapy [facility] Start: 08-25-2022 [facility] Start: 08-21-2022 Hemoglobin A1c/Hemoglobin.total in Blood HBA1C [facility] Start: 08-15-2022 Adult depression scr eening assessment DEPRESSION SCREENING [facility] Start: 08-15-2022 ANNUAL PCP TEAM SHELLFISH SORTER RAMIREZ DISEASE VISIT ANNUAL PCP TEAM CHRONIC DISEASE VISIT [facility] Start: 08-13-2022 Hepatitis B surface antibody level LDL CHOLESTEROL [facility] Start: 05-19-2022 End: 07-19-2022 Hemoglobin A1c in Blood HGB A1C Lab Routine Diabetes mellitus type 2 with complications (HCC) Expected: 05/19/2022, Expires: 07/19/2022 [facility] Work Phone: Comment on above: Expected: 05/19/2022 , Expires: 07/19/2022 Start: 05-14-2022 ANNUAL PCP TEAM SHELLFISH SORTER RAMIREZ DISEASE VISIT ANNUAL PCP TEAM CHRONIC DISEASE VISIT [facility] Start: 05-14-2022 BP CONTROLLED (<130/80) BP CONTROLLE D (<130/80) [facility] Start: 05-13-2022 Hemoglobin A1c/Hemoglobin.total in Blood HBA1C [facility] Start: 04-02-2022 COVID-19 VACCINE (6 - Moderna series) COVID-19 VACCINE (6 - Moderna series) [facility] Start: 03-08-2022 ADVANCE DIRECTIVE DISCUSSION ADVANCE DIRECTIVE DISCUSSION [facility] Start: 03-08-2022 DEPRESSION ASSESSMENT DEPRESSION ASS ESSMENT [facility] Start: 02-20-2022 Hemoglobin A1c/Hemoglobin.total in Blood HBA1C [facility] Start: 02-18-2022 End: 04-20-2022 ALBUMIN/CREAT RATIO RND UR ALBUMIN/CREAT RATIO RND UR Lab Routine Diabetes mellitus type 2 with complications (HCC) Expected: 02/18/2022, Expires: 04/20/2022 [facility] Work Phone: Comment on above: Expected: 02/18/2022 , Expires: 04/20/2022 Start: 12-18-2021 Mammography MAMMOGRAM [facility] Start: 12-10-2021 3 comp foot exam completed DIABETIC FOOT EXAM [facility] Start: 12-06-2021 Hepatitis B surface antibody level LDL CHOLESTEROL [facility] Start: 11-13-2021 Hemoglobin A1c/Hemoglobin.total in Blood HBA1C [facility] Start: 11-06-2021 Influenza vaccination INFLUENZA (#1) [facility] Start: 09-22-2021 Hemoglobin A1c/Hemoglobin.total in Blood HBA1C [facility] Start: 09-14-2021 End: 11-14-2021 CBC W Auto Differential panel - Blood CBC + DIFF Lab Routine Leukocytosis, unspecified type Expected: 09/14/2021, Expires: 11/14/2021 [facility] Work Phone: Comment on above: Expected: 09/14/2021 , Expires: 11/14/2021 Start: 09-14-2021 End: 08-15-2022 Thyrotropin [Units/volume] in Serum or Plasma TSH BLD Lab Routine Hypothyroidism, unspecified type Expected: 09/14/2021, Expires: 08/15/2022 [facility] Work Phone: Comment on above: Expected: 09/14/2021 , Expires: 08/15/2022 Start: 09-14-2021 End: 08-15-2022 Thyroxine (T4) free [Mass/volume] in Serum or Plasma T4 FREE/FREE THYROX Lab Routine Hypothyroidism, unspecified type Expected: 09/14/2021, Expires: 08/15/2022 [facility] Work Phone: Comment on above: Expected: 09/14/2021 , Expires: 08/15/2022 Start: 09-14-2021 End: 08-15-2022 Triiodothyronine (T3) Free [Mass/volume] in Serum or Plasma T3 FREE BLD Lab Routine Hypothyroidism, unspecified type Expected: 09/14/2021, Expires: 08/15/2022 [facility] Work Phone: Comment on above: Expected: 09/14/2021 , Expires: 08/15/2022 Start: 07-23-2021 End: 09-22-2021 CBC W Auto Differential panel - Blood CBC + DIFF Lab Routine Essential hypertension Expected: 07/23/2021, Expires: 09/22/2021 [facility] Work Phone: Comment on above: Expected: 07/23/2021 , Expires: 09/22/2021 Start: 07-23-2021 End: 09-22-2021 Comprehensive metabolic 2000 panel - Serum or Plasma COMP METABOLIC PANEL Lab Routine Essential hypertension Mixed hyperlipidemia Expected: 07/23/2021, Expires: 09/22/2021 [facility] Work Phone: Comment on above: Expected: 07/23/2021 , Expires: 09/22/2021 Start: 07-23-2021 End: 09-22-2021 Hemoglobin A1c/Hemoglobin.total in Blood HGB A1C Lab Routine Controlled type 2 diabetes mellitus without complication, without long-term current use of insulin ([facility]) Expected: 07/23/2021, Expires: 09/22/2021 [facility] Work Phone: Comment on above: Expected: 07/23/2021 , Expires: 09/22/2021 Start: 07-23-2021 End: 09-22-2021 LIPID PANEL BASIC LIPID PANEL BASIC Lab Routine Mixed hyperlipidemia Expected: 07/23/2021, Expires: 09/22/2021 [facility] Work Phone: Comment on above: Expected: 07/23/2021 , Expires: 09/22/2021 Start: 07-23-2021 End: 09-22-2021 Thyrotropin [Units/volume] in Serum or Plasma TSH BLD Lab Routine Abnormal TSH Expected: 07/23/2021, Expires: 09/22/2021 [facility] Work Phone: Comment on above: Expected: 07/23/2021 , Expires: 09/22/2021 Start: 07-23-2021 End: 09-22-2021 VITAMIN D 25 HYDROXY VITAMIN D 25 HYDROXY Lab Routine Vitamin D deficiency Expected: 07/23/2021, Expires: 09/22/2021 [facility] Work Phone: Comment on above: Expected: 07/23/2021 , Expires: 09/22/2021 Start: 05-15-2021 Adult depression scr [facility] assessment DEPRESSION SCREENING [facility] Start: 05-02-2021 COVID-19 VACCINE (4 - Booster for Moderna series) COVID-19 VACCINE (4 - Booster for Moderna series) [facility] Start: 03-08-2021 ADVANCE DIRECTIVE DISCUSSION ADVANCE DIRECTIVE DISCUSSION [facility] Start: 03-08-2021 DEPRESSION ASSESSMENT DEPRESSION ASS ESSMENT [facility] Start: 11-05-2020 COLORECTAL CANCER SCREENING COLORECTAL CANCER SCREENING [facility] Start: 11-05-2020 FECAL OCCULT BLOOD FECAL OCCULT BLOO D [facility] Start: 11-01-2020 Hepatitis B screening URINE ALBUMIN:CREATININE RATIO [facility] Start: 03-15-2019 Hepatitis C antibody , confirmatory test DILATED RETINAL EXAM [facility] Start: 2006 Hepatitis B Vaccine (1 of 3 - Risk 3-dose series) Hepatitis B Vaccine (1 of 3 - Risk 3-dose series) [facility] Start: 2006 RSV Vaccine (1 - 1-d ose 60+ series) RSV Vaccine (1 - 1-dose 60+ series) [facility] Start: 09-30-1991 COLOGUARD (FIT-DNA) COLOGUARD (FIT-D NA) [facility] Start: 09-30-1991 Colonoscopy COLONOSCOPY [facility] Start: 09-30-[address] COLONOGRAPHY [facility] Start: 09-30-1991 SIGMOIDOSCOPY SIGMOIDOSCOPY [facility] Start: 1964 Anxiety Screening Anxiety Screening [facility] Start: 1964 BP CONTROLLED (<130/80) BP CONTROLLE D (<130/80) [facility] Start: 1964 Depression Screening Depression Scre ening [facility] Bacteria identified in Urine by Culture BACTERIAL CULTURE, URINE Microbiology Routine Urinary frequency Left flank pain 07/25/2024 8:26 AM EDT [facility] End: 11-18-2022 CBC panel - Blood by Automated count CBC Lab Routine Diabetes mellitus type 2 with complications (HCC) Every 6 months for 12 Occurrences starting 11/18/2021 until 11/18/2022 [facility] Work Phone: Comment on above: Every 6 months for 1 2 Occurrences starting 11/18/2021 until 11/18/2022 End: 02-18-2023 CBC panel - Blood by Automated count CBC Lab Routine Diabetes mellitus type 2 with complications (HCC) Every 6 months for 12 Occurrences starting 02/18/2022 until 02/18/2023 [facility] Work Phone: Comment on above: Every 6 months for 1 2 Occurrences starting 02/18/2022 until 02/18/2023 COLOGUARD COLOGUARD Lab Ro utine Colon cancer screening Ordered: 06/04/2022 [facility] Work Phone: Comment on above: Ordered: 06/04/2022 End: 11-18-2022 Comprehensive metabolic 2000 panel - Serum or Plasma COMP METABOLIC PANEL Lab Routine Diabetes mellitus type 2 with complications (HCC) Every 6 months for 12 Occurrences starting 11/18/2021 until 11/18/2022 [facility] Work Phone: Comment on above: Every 6 months for 1 2 Occurrences starting 11/18/2021 until 11/18/2022 End: 02-18-2023 Comprehensive metabolic 2000 panel - Serum or Plasma COMP METABOLIC PANEL Lab Routine Diabetes mellitus type 2 with complications (HCC) Every 6 months for 12 Occurrences starting 02/18/2022 until 02/18/2023 [facility] Work Phone: Comment on above: Every 6 months for 1 2 Occurrences starting 02/18/2022 until 02/18/2023 End: 11-18-2022 Hemoglobin A1c in Blood HGB A1C Lab Routine Diabetes mellitus type 2 with complications (HCC) Every 3 months for 24 Occurrences starting 11/18/2021 until 11/18/2022 [facility] Work Phone: Comment on above: Every 3 months for 2 4 Occurrences starting 11/18/2021 until 11/18/2022 End: 11-18-2022 Lipid 1996 panel - Serum or Plasma LIPID PANEL BASIC Lab Routine Diabetes mellitus type 2 with complications (HCC) Every 6 months for 12 Occurrences starting 11/18/2021 until 11/18/2022 [facility] Work Phone: Comment on above: Every 6 months for 1 2 Occurrences starting 11/18/2021 until 11/18/2022 End: 02-18-2023 Lipid 1996 panel - Serum or Plasma LIPID PANEL BASIC Lab Routine Diabetes mellitus type 2 with complications (HCC) Every 6 months for 12 Occurrences starting 02/18/2022 until 02/18/2023 [facility] Work Phone: Comment on above: Every 6 months for 1 2 Occurrences starting 02/18/2022 until 02/18/2023 Lipid 1996 panel - S keith or Plasma [facility] End: 05-15-2023 GISELLE SCREENING GISELLE SCREENING Radiology Routine Breast cancer screening by mammogram 1 Occurrences starting 04/16/2022 until 05/15/2023 [facility] Work Phone: Comment on above: 1 Occurrences starti ng 04/16/2022 until 05/15/2023 Patient Education Stroke: Taking Medicines Stroke: Resources and Support Discharge Instructions for Stroke [facility] Work Phone: Patient referral [facility] Work Phone: End: 11-18-2022 Thyrotropin [Units/volume] in Serum or Plasma TSH BLD Lab Routine Diabetes mellitus type 2 with complications (HCC) Every 3 months for 24 Occurrences starting 11/18/2021 until 11/18/2022 [facility] Work Phone: Comment on above: Every 3 months for 2 4 Occurrences starting 11/18/2021 until 11/18/2022 End: 02-18-2023 Thyrotropin [Units/volume] in Serum or Plasma TSH BLD Lab Routine Diabetes mellitus type 2 with complications (HCC) Every 3 months for 24 Occurrences starting 02/18/2022 until 02/18/2023 [facility] Work Phone: Comment on above: Every 3 months for 2 4 Occurrences starting 02/18/2022 until 02/18/2023 UA DIP, URINE (POC) UA DIP, URIN E (POC) Lab Routine Urinary frequency Ordered: 09/03/2022 [facility] Work Phone: Comment on above: Ordered: 09/03/2022 UA DIP, URINE (POC) UA DIP, URIN E (POC) Lab Routine Urinary frequency Left flank pain Ordered: 07/25/2024 [facility] Work Phone: Comment on above: Ordered: 07/25/2024 Urine culture Urine Culture [facility] End: 08-24-2025 US Kidney - bilateral and Urinary bladder US KIDNEY/BLADDER Radiology Routine Urinary frequency Left flank pain 1 Occurrences starting 07/25/2024 until 08/24/2025 [facility] Comment on above: 1 Occurrences starti ng 07/25/2024 until 08/24/2025 End: 03-03-2025 US Thyroid gland US THYROID/PARATHYROID Radiology Routine Thyroid nodule 1 Occurrences starting 02/02/2024 until 03/03/2025 [facility] Comment on above: 1 Occurrences starti ng 02/02/2024 until 03/03/2025 US Thyroid gland US THYROID/PARA THYROID Radiology Routine Thyroid nodule 02/08/2024 8:05 AM EST [facility] Work Phone: [facility] Immunizations Immunization Date Immunization Notes Care Provider [facility] 12-01-2023 SARS-CoV-2 (COVID-19 ) [id number] [employer] 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 INSURANCE CLERK-FINISH CLEANER [facility] 07-28-2021 SARS-CoV-2 (COVID-19 ) [id number] [facility] INSURANCE CLERK-FINISH CLEANER [facility] 01-01-2021 influenza virus vacc ine, unspecified formulation [facility] INSURANCE CLERK-FINISH CLEANER [facility] 12-30-2020 SARS-CoV-2 (COVID-19 ) [id number] [facility] INSURANCE CLERK-FINISH CLEANER [facility] Comment on above: Result Comment: 2023: [id number] 08-09-2020 zoster vaccine recombinant Nc Nurse Work Phone: [facility] Work Phone: 06-05-2020 COVID-19 vaccine, fu ll dose (MODERNA) Nc Nurse Work Phone: [facility] 05-08-2020 COVID-19 vaccine, fu ll dose (MODERNA) N[facility] Nurse Work Phone: [facility] 01-17-2020 tetanus toxoid, redu janelle diphtheria toxoid, and acellular pertussis vaccine, adsorbed Mi Nurse Work Phone: [facility] Work Phone: 12-18-2019 zoster vaccine recombinant Nc Nurse Work Phone: [facility] Work Phone: 11-21-2019 influenza, injectabl e, quadrivalent, preservative free [facility] [employer]BI[employer] SALES CONSULTANT-C Work Phone: [facility] 11-21-2019 influenza, seasonal, injectable Dr. 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 [facility] 12-06-2015 influenza virus vacc ine, unspecified formulation [employer]ULO [employer] INSURANCE CLERK-FINISH CLEANER [facility] 12-06-2015 influenza, high dose seasonal, preservative-free Mi Nurse Work Phone: [facility] Work Phone: 11-27-2014 influenza virus vacc ine, unspecified formulation J[employer]E [employer] INSURANCE CLERK-FINISH CLEANER [facility] 11-13-2014 influenza virus vacc ine, unspecified formulation J[employer]E [employer] INSURANCE CLERK-FINISH CLEANER [facility] 11-13-2014 influenza, high dose seasonal, preservative-free Mi Nurse Work Phone: [facility] 09-25-2014 pneumococcal conjuga te vaccine, 13 valent Nc Nurse Work Phone: [facility] 01-29-2014 pneumococcal polysaccharide vaccine, 23 valent Nc Nurse Work Phone: [facility] Work Phone: 11-29-2012 zoster vaccine, live Mi Nurs e Work Phone: [facility] Work Phone: 01-12-2011 tetanus and diphther ia toxoids, adsorbed, preservative free, for adult use (2 Lf of tetanus toxoid and 2 Lf of diphtheria toxoid) Nc Nurse Work Phone: [facility] Work Phone: Payers Date Payer Category Payer Self-pay [id number] 2021 Medicare AET MEDICARE A ETNA MEDICARE PPO [id number] 2021-Present [phone] [address] [place] [address] PP [id number] 2021 Medicare AETNA MEDICARE A ETNA MEDICARE PPO [id number] 2021-Present [phone] [address] [place] [address] PPO [id number] 2021 [facility] (Managed Care[facility] [id number] 2021 Private Health Insurance [id number] 1945 Unknown [id number] Unknown [id number] Unknown [id number] Social History Date Type Detail Facility Start: 02-15-2017 End: 03-16-2023 Tobacco smoking status NHIS Never smoked tobacco [facility] Work Phone: Start: 05-14-2021 End: 07-25-2024 Alcohol intake Current drinker of alcohol (finding) [facility] Start: 03-21-2019 End: 07-13-2022 History SDOH Alcohol Frequency 2 [facility] Start: 03-21-2019 End: 07-13-2022 History SDOH Alcohol Std Drinks 1 [facility] Start: 10-11-2008 History SDOH Alcohol Comment rarely [facility] Start: 11-07-2019 History SDOH Social Connections Phone 4 [facility] Start: 03-21-2019 End: 07-13-2022 History SDOH Social Connections Mormon 3 [facility] Start: 03-21-2019 End: 07-13-2022 History SDOH Financial 5 [facility] Start: 11-07-2019 Education 19 [facility] Start: 1945 Sex Assigned At Not on file [facility] Start: 05-31-2021 End: 11-21-2021 Exposure to SARS-CoV-2 (event) Not sure [facility] Work Phone: Start: 02-15-2017 End: 11-21-2021 Tobacco use and exposure Smokeless tobacco non-user [facility] Work Phone: Start: 08-25-2022 End: 09-03-2022 Tobacco smoking status NHIS Unknown if ever smoked [facility] Start: 02-07-2020 None [facility] Start: 03-15-2019 Spouse/ Significant Other [facility] Start: 1945 Sex Assigned At Female [facility] Start: 08-28-2022 Non-smoker [facility] Start: 11-07-2019 End: 07-13-2022 History of Social function [facility] Start: 11-07-2019 End: 07-13-2022 Social connection and isolation panel [facility] Active Member of [facility] bs or Organizations Not on file [facility] Are you now , , , , never or living with a partner? [facility] How often to you hav e a drink containing alcohol? Monthly or less [facility] How many standard dr inks containing alcohol do you have on a typical day? 1 or 2 [facility] How often do you hav e 6 or more drinks on 1 occasion? Never [facility] Do you feel stress - tense, restless, nervous, or anxious, or unable to sleep at night because your mind is troubled all the time - these days [OSQ] Not at all [facility] (I/We) worried wheth er (my/our) food would run out before (I/we) got money to buy more. Never true [facility] In the past 12 month s, was there a time when you were not able to pay the mortgage or rent on time? No [facility] Medical Equipment Procedure Code Equipment Code Equipment Original Text Equipment Identifier Dates [id number], [id number], [id number] Start: 09-18-2022 Comment on above: Test blood sugar(s) 2 times daily. Dx: Type 2 DM - Uncontrolled E11.65 Insulin: No Test blood sugar(s) two times times daily. Dx: Other DM Code E11.65 Insulin: No Goals Date Patient Goal Desired Activity /State Functional Status Date Assessment Result Facility 01-21-2024 Functional Status Sequential Com pression Device bilateral knee high removed/off [facility] 01-21-2024 Functional Status Single point cane [facility] 01-21-2024 Functional Status Single level home [facility] 01-21-2024 Functional Status Door open, Non-Slip footwear, Room check performed, Embedded Firmware Developer at bedside [facility] 01-21-2024 Functional Status [facility] 01-21-2024 Functional Status Shashank huizar [facility] 01-20-2024 Functional Status Shashank huizar [facility] 08-28-2022 Functional status [facility] [facility] Work Phone: 09-25-2014 Are you deaf, or do you have serious difficulty hearing No 09/25/2014 9:38 AM Jesenia Diop RN No [facility] 09-25-2014 Are you blind, or do you have serious difficulty seeing, even when wearing glasses No 09/25/2014 9:38 AM Jesenia Diop RN No [facility] 09-25-2014 Do you have serious difficulty walking or climbing stairs No 09/25/2014 9:38 AM Jesenia Diop RN No [facility] 09-25-2014 Do you have difficul ty dressing or bathing No 09/25/2014 9:38 AM Jesenia Diop RN No [facility] 09-25-2014 Because of a physica l, mental, or emotional condition, do you have difficulty doing errands alone such as visiting a physician's office or shopping No 09/25/2014 9:38 AM Jesenia Diop RN No [facility] Mental Status Date Assessment Result Facility 01-21-2024 Mental Status Oriented x 4 [facility] 01-21-2024 Mental Status [facility] 01-20-2024 Mental Status [facility] 08-28-2022 Cognitive function Voice/Name [facility] Work Phone: 08-25-2022 Cognitive function Voice/Name [facility] Work Phone: 09-25-2014 Because of a physica l, mental, or emotional condition, do you have serious difficulty concentrating, remembering, or making decisions No 09/25/2014 9:38 AM Jesenia Diop RN No [facility] Clinical Notes 09-25-2014 to 08-16-2024 Telephone Encounter - Tereza Leung MA - 08/16/2024 2:18 PM EDTTelephone Encounter - Tereza Leung MA - 08/16/2024 2:18 PM EDTAGUEDA SABILLON - 08/14/2024 11:35 AM EDT Note Date & Type Note Facility 08-16-2024 Telephone encounter Note Patient has been identified by name and date of : yes Patient phones for refill(s): Requested Prescriptions Pending Prescriptions Disp Refills levothyroxine (LEVOXYL) 50 mcg tablet 90 tablet 1 Sig: Take 1 tablet by mouth once daily. Take on empty stomach. For Thyroid Date of last office visit in primary care: 07/25/2024 Date of next office visit in primary care: 09/11/2024 Please advise. Thank you. Tereza Leung MA. [facility] 08-16-2024 Miscellaneous Notes Patient has been identified by name and date of : yes Patient phones for refill(s): Requested Prescriptions Pending Prescriptions Disp Refills levothyroxine (LEVOXYL) 50 mcg tablet 90 tablet 1 Sig: Take 1 tablet by mouth once daily. Take on empty stomach. For Thyroid Date of last office visit in primary care: 07/25/2024 Date of next office visit in primary care: 09/11/2024 Please advise. Thank you. Tereza Leung MA. documented in this encounter [facility] 08-14-2024 Note HNO ID: [id number] Author: ?, ?, ? Service: ? Author Type: LICENSED NURSE Type: Progress Notes Filed: 08/14/2024 11:43 Note Text: Patient presents for B-12 injection. Denies any problems at this time. Patient instructed on any SE of medication, verbalized understanding and agreed to proceed with treatment. Tolerated injection well. Agueda Sabillon LPN [facility] 08-14-2024 History of Presen t illness Narrative Patient presents for B-12 injection. Denies any problems at this time. Patient instructed on any SE of medication, verbalized understanding and agreed to proceed with treatment. Tolerated injection well. Agueda Sabillon LPN documented in this encounter [facility] 07-25-2024 Note HNO ID: [id number] Author: JONES VELASQUEZ MD Service: ? Author Type: Physician Type: Progress Notes Filed: 07/25/2024 09:12 Note Text: Reason for Visit UTI HPI Britney is a 78-year-old female with a history of UTIs, presenting with back pain and urinary symptoms. Britney reports experiencing back pain and urinary symptoms, including achiness and cramping in the back, particularly on Wednesday. She denies hematuria or dysuria. She also experienced a chill on Wednesday but denies any fever. Her symptoms have been improving since then. She is currently taking Jardiance, which she started in September and has helped her lose 45 lbs. She has not taken Jardiance since 07/23 due to concerns that it may be contributing to her urinary symptoms. She denies a history of nephrolithiasis. In January, she was diagnosed with a UTI after a flight to [place] during which she did not drink enough water. She presented to the emergency room with emesis and was diagnosed with a UTI at that time. She is scheduled for cataract surgery on 09/16 and is concerned that an infection may delay the procedure. Social History Tobacco Use Smoking status: Never Smokeless tobacco: Never Vaping Use Vaping status: Never Used Substance Use Topics Alcohol use: Yes Comment: rarely Drug use: No Past medical history, appointments, medications, allergies reviewed. Pertinent Lab/Diagnostic Studies are reviewed and discussed today Current Outpatient Medications: atorvastatin (LIPITOR) 80 mg tablet clopidogrel (PLAVIX) 75 mg tablet Lancets blood sugar diagnostic (BLOOD GLUCOSE TEST) test strip levothyroxine (LEVOXYL) 50 mcg tablet losartan (COZAAR) 50 mg tablet metFORMIN ER (GLUCOPHAGE XR) 500 mg 24 hr tablet empagliflozin (JARDIANCE) 25 mg tablet cyanocobalamin 1,000 mcg/mL blood sugar diagnostic (BLOOD GLUCOSE TEST) test strip Lancets lancets metoprolol tartrate, short acting, (LOPRESSOR) 25 mg tablet apixaban (ELIQUIS) 5 mg tab(s) fluticasone (FLONASE) 50 mcg/actuation nasal spray sulfamethoxazole-trimethoprim (BACTRIM DS) 800-160 mg per tablet terconazole vaginal cream (TERAZOL) 0.8 % vaginal cream Current Facility-Administered Medications: cyanocobalamin 1,000 mcg injection Health Maintenance Depression Screening Anxiety Screening Diabetic Foot Exam Covid-19 Vaccine( season)@ Review Of Systems Constitutional: (+) weight loss, (-) fever, (-) chills Gastrointestinal: (+) nausea Genitourinary: (-) dysuria, (-) hematuria Musculoskeletal: (+) back pain Physical Exam BP 108/68 (BP Site: Left Arm, BP Position: Sitting, BP Cuff Size: Regular Adult) Pulse 73 Temp 36.9 ?C (98.5 ?F) (Oral) Wt 81.6 kg (180 lb) SpO2 100% BMI 32.40 kg/m? GENERAL: NAD, alert and oriented. SKIN: Unremarkable, no rash or skin lesions. HEAD: Normocephalic. EYES: PERRLA, EOMI, conjunctiva clear. NECK: Supple, no lymphadenopathy, normal thyroid, no carotid bruits. LUNGS: Clear to auscultation bilaterally, no wheezes/rhonchi/rales. HEART: Regular rate and rhythm, no murmurs. No ectopy. EXTREMITIES: Normal, no deformities, no skin discoloration, no edema. ABDOMEN: Mild tenderness in lower abdomen, no rebound tenderness or guarding. NEURO: Awake, alert and oriented x3, cranial nerves II-XII grossly intact, normal gait, no involuntary motions. Labs: (Today) Urinalysis: Positive nitrites, large leukocyte esterase, trace blood (January) Urinalysis: Determined to be a urinary tract infection in the emergency department Assessment and Plan 1. Urinary frequency (R35.0) Acute cystitis with hematuria (N30.01) Positive nitrites and large leukocyte esterase on urinalysis, indicating a high likelihood of UTI. Hematuria also noted. Patient reports improvement in symptoms, including urinary frequency and back cramping, which are consistent with UTI. No fever currently, but had chills on Wednesday. - Ordered urine culture. - Prescribed Bactrim for 5 days to be taken if symptoms worsen, such as fever, increased hematuria, or severe discomfort or if on Jardiance as it cane worse the issues. - Discussed the protective mechanisms of the urinary tract and the potential for infection if these are compromised. - Advised patient to monitor symptoms and report any worsening. 2. Left flank pain (R10.9) Flank pain may be associated with current UTI. No significant tenderness or guarding on abdominal examination. - Ordered ultrasound to evaluate for possible renal or bladder stones; patient to schedule if pain persists. 3. shelter (current) use of oral hypoglycemic drugs (Z79.84) Currently on Jardiance, which may increase susceptibility to UTIs. Patient has discontinued Jardiance since July 23 due to concerns about recurrent UTIs. - Discussed the potential link between Jardiance and increased UTI risk. - Advised patient to monitor for any recurrence of UTI symptoms. Voice recognition softwar (more content not included)... [facility] 07-25-2024 History of Presen t illness Narrative Reason for Visit UTI HPI Britney is a 78-year-old female with a history of UTIs, presenting with back pain and urinary symptoms. Britney reports experiencing back pain and urinary symptoms, including achiness and cramping in the back, particularly on Wednesday. She denies hematuria or dysuria. She also experienced a chill on Wednesday but denies any fever. Her symptoms have been improving since then. She is currently taking Jardiance, which she started in September and has helped her lose 45 lbs. She has not taken Jardiance since 07/23 due to concerns that it may be contributing to her urinary symptoms. She denies a history of nephrolithiasis. In January, she was diagnosed with a UTI after a flight to [place] during which she did not drink enough water. She presented to the emergency room with emesis and was diagnosed with a UTI at that time. She is scheduled for cataract surgery on 09/16 and is concerned that an infection may delay the procedure. Social History Tobacco Use Smoking status: Never Smokeless tobacco: Never Vaping Use Vaping status: Never Used Substance Use Topics Alcohol use: Yes Comment: rarely Drug use: No Past medical history, appointments, medications, allergies reviewed. Pertinent Lab/Diagnostic Studies are reviewed and discussed today Current Outpatient Medications: atorvastatin (LIPITOR) 80 mg tablet clopidogrel (PLAVIX) 75 mg tablet Lancets blood sugar diagnostic (BLOOD GLUCOSE TEST) test strip levothyroxine (LEVOXYL) 50 mcg tablet losartan (COZAAR) 50 mg tablet metFORMIN ER (GLUCOPHAGE XR) 500 mg 24 hr tablet empagliflozin (JARDIANCE) 25 mg tablet cyanocobalamin 1,000 mcg/mL blood sugar diagnostic (BLOOD GLUCOSE TEST) test strip Lancets lancets metoprolol tartrate, short acting, (LOPRESSOR) 25 mg tablet apixaban (ELIQUIS) 5 mg tab(s) fluticasone (FLONASE) 50 mcg/actuation nasal spray sulfamethoxazole-trimethoprim (BACTRIM DS) 800-160 mg per tablet terconazole vaginal cream (TERAZOL) 0.8 % vaginal cream Current Facility-Administered Medications: cyanocobalamin 1,000 mcg injection Health Maintenance Depression Screening Anxiety Screening Diabetic Foot Exam Covid-19 Vaccine( season)@ Review Of Systems Constitutional: (+) weight loss, (-) fever, (-) chills Gastrointestinal: (+) nausea Genitourinary: (-) dysuria, (-) hematuria Musculoskeletal: (+) back pain Physical Exam BP 108/68 (BP Site: Left Arm, BP Position: Sitting, BP Cuff Size: Regular Adult) Pulse 73 Temp 36.9 C (98.5 F) (Oral) Wt 81.6 kg (180 lb) SpO2 100% BMI 32.40 kg/m GENERAL: NAD, alert and oriented. SKIN: Unremarkable, no rash or skin lesions. HEAD: Normocephalic. EYES: PERRLA, EOMI, conjunctiva clear. NECK: Supple, no lymphadenopathy, normal thyroid, no carotid bruits. LUNGS: Clear to auscultation bilaterally, no wheezes/rhonchi/rales. HEART: Regular rate and rhythm, no murmurs. No ectopy. EXTREMITIES: Normal, no deformities, no skin discoloration, no edema. ABDOMEN: Mild tenderness in lower abdomen, no rebound tenderness or guarding. NEURO: Awake, alert and oriented x3, cranial nerves II-XII grossly intact, normal gait, no involuntary motions. Labs: (Today) Urinalysis: Positive nitrites, large leukocyte esterase, trace blood (January) Urinalysis: Determined to be a urinary tract infection in the emergency department Assessment and Plan 1. Urinary frequency (R35.0) Acute cystitis with hematuria (N30.01) Positive nitrites and large leukocyte esterase on urinalysis, indicating a high likelihood of UTI. Hematuria also noted. Patient reports improvement in symptoms, including urinary frequency and back cramping, which are consistent with UTI. No fever currently, but had chills on Wednesday. - Ordered urine culture. - Prescribed Bactrim for 5 days to be taken if symptoms worsen, such as fever, increased hematuria, or severe discomfort or if on Jardiance as it cane worse the issues. - Discussed the protective mechanisms of the urinary tract and the potential for infection if these are compromised. - Advised patient to monitor symptoms and report any worsening. 2. Left flank pain (R10.9) Flank pain may be associated with current UTI. No significant tenderness or guarding on abdominal examination. - Ordered ultrasound to evaluate for possible renal or bladder stones; patient to schedule if pain persists. 3. shelter (current) use of oral hypoglycemic drugs (Z79.84) Currently on Jardiance, which may increase susceptibility to UTIs. Patient has discontinued Jardiance since July 23 due to concerns about recurrent UTIs. - Discussed the potential link between Jardiance and increased UTI risk. - Advised patient to monitor for any recurrence of UTI symptoms. Voice recognition software was used to compose this office note. Please excuse any unintended typographical errors. Recording using [employer] software for draft documentation of the visit was discussed with the patient/authorized billing representative; all questions welcomed and answered. Patient/authorized billing representative agreed to proceed Jones Velasquez MD documented in this encounter [facility] 07-25-2024 Instructions Jones Velasquez MD - 07/25/2024 8:28 AM EDT We discussed your urinary symptoms and possible urinary tract infection (UTI): - Your urinalysis showed positive nitrates, large leukocytes, and a small amount of blood, which strongly suggests a UTI. - You reported feeling better since Wednesday, with no fever or chills currently, so we will not start antibiotics at this time. - I have sent a prescription for Bactrim (antibiotic) to your pharmacy. Only take this if your symptoms worsen, such as developing a fever, visible blood in your urine, or increased urinary discomfort. The course is for 5 days. - A urine culture has been ordered to confirm the infection and guide treatment if needed. We discussed the possibility of a kidney stone: - Based on your symptoms, a kidney stone may be a consideration. However, since your symptoms are improving, imaging is not necessary at this time. - If your symptoms worsen or persist, an ultrasound has been ordered and can be scheduled at your convenience. We discussed your use of Jardiance: - Jardiance can increase the risk of UTIs. You mentioned stopping Jardiance on July 23, and this may be contributing to your improvement. - Please let me know if you decide to restart Jardiance or if you have any concerns about your diabetes management. Follow-up instructions: - Monitor your symptoms closely. If you develop a fever, chills, visible blood in your urine, or worsening pain, please start the Bactrim and contact our office. - If your symptoms persist or worsen despite taking the Bactrim, please schedule a follow-up appointment with me. - If you decide to proceed with the ultrasound, call to schedule it using the order I placed today. Your kidney function is good, and there are no concerns at this time. Please let me know if you have any further questions or concerns. documented in this encounter [facility] 07-17-2024 Note HNO ID: [id number] Author: ?, ?, ? Service: ? Author Type: LICENSED NURSE Type: Progress Notes Filed: 07/17/2024 11:42 Note Text: Patient presents for B-12 injection. Denies any problems at this time. Patient instructed on any SE of medication, verbalized understanding and agreed to proceed with treatment. Tolerated injection well. Agueda Sabillon LPN [facility] 07-17-2024 History of Presen t illness Narrative Patient presents for B-12 injection. Denies any problems at this time. Patient instructed on any SE of medication, verbalized understanding and agreed to proceed with treatment. Tolerated injection well. Agueda Sabillon LPN documented in this encounter [facility] 06-19-2024 Note HNO ID: [id number] Author: ?, ?, ? Service: ? Author Type: LICENSED NURSE Type: Progress Notes Filed: 06/19/2024 11:58 Note Text: Patient presents for B-12 injection. Denies any problems at this time. Patient instructed on any SE of medication, verbalized understanding and agreed to proceed with treatment. Tolerated injection well. Agueda Sabillon LPN [facility] 06-19-2024 History of Presen t illness Narrative Patient presents for B-12 injection. Denies any problems at this time. Patient instructed on any SE of medication, verbalized understanding and agreed to proceed with treatment. Tolerated injection well. Agueda Sabillon LPN documented in this encounter [facility] 06-09-2024 Note HNO ID: [id number] Author: ASTRID MUSE APRN.FINISH CLEANER Service: ? Author Type: Nurse Practitioner Type: Progress Notes Filed: 06/09/2024 12:19 Note Text: CC: Patient presents with: Recheck: 6 week follow up UTI and medication HPI Britney Canada is a 78 year old female who presents today for recheck after UTI which resulted in hospitalization, concern for second UTI and evaluation for continuing Jardiance. Patient denies any new symptoms of urinary tract infection including dysuria, burning or frequency. She is currently on Jardiance and metformin for her diabetes. She does feel like the Jardiance has helped her be able to lose weight and stabilize her blood sugars. Blood sugars at home average between 123 and 128 per patient, 116 this morning. She follows mostly a plant-based diet with eggs. She does walk around her house intentionally for exercise. Denies any other associated symptoms today REVIEW OF SYSTEMS General: no fevers, no chills, no recurrent infections, no change in appetite, no change in energy, and no significant changes in weight Respiratory: no cough, no wheezing, no shortness of breath Cardiovascular: no chest pain, no chest pressure, no palpitations, and no swelling : Negative for dysuria, frequency, and incontinence, See HPI Neurologic: No headache, weakness, numbness, tingling, neck stiffness, tremor, vertigo, dizziness, memory loss, syncope. See HPI PAST MEDICAL HISTORY Diagnosis Date Abnormal mammogram, unspecified Diabetes mellitus without mention of complication High blood pressure High cholesterol Thyroid disease PAST SURGICAL HISTORY Procedure Laterality Date CHOLECYSTECTOMY 1989 RPR UMBILICAL HRNA 5 YRS/> REDUCIBLE STEREOTACTIC CORE BIOPSY 10/18/08 RIGHT BREAST ALLERGIES Darvon [Propoxyphene Hcl] and Penicillins MEDICATIONS LancetsTest blood sugar(s) 1 times daily. Dx: Type 2 DM - Controlled E11.9 Insulin: NoDisp: 100 EachRfl: 11 blood sugar diagnostic (BLOOD GLUCOSE TEST) test stripTest blood sugar(s) 1 times daily. Dx: Type 2 DM - Controlled E11.9 Insulin: NoDisp: 50 StripRfl: 11 levothyroxine (LEVOXYL) 50 mcg tabletTake 1 tablet by mouth once daily. Take on empty stomach. For ThyroidDisp: 90 tabletRfl: 1 losartan (COZAAR) 50 mg tabletTake 1 tablet by mouth once daily.Disp: 90 tabletRfl: 3 metFORMIN ER (GLUCOPHAGE XR) 500 mg 24 hr tabletTake 2 tablets by mouth two times a day with meals.Disp: 360 tabletRfl: 3 empagliflozin (JARDIANCE) 25 mg tabletTake 1 tablet by mouth once daily. Take 1 tablet once daily in the morningDisp: 90 tabletRfl: 3 clopidogrel (PLAVIX) 75 mg tabletTake 1 tablet by mouth once daily. Take 75 mg by mouth once daily.Disp: 90 tabletRfl: 3 atorvastatin (LIPITOR) 80 mg tabletTAKE 1 TABLET BY MOUTH ONCE DAILY AT BEDTIME FOR CHOLESTEROLDisp: 90 tabletRfl: 3 terconazole vaginal cream (TERAZOL) 0.8 % vaginal creamUse 1 Applicator vaginally daily at bedtime.Disp: 20 gRfl: 0 cyanocobalamin 1,000 mcg/mLInject 1 mL intramuscularly once every month.Disp: 1 mLRfl: 12 blood sugar diagnostic (BLOOD GLUCOSE TEST) test stripTest blood sugar(s) 2 times daily. Dx: Type 2 DM - Uncontrolled E11.65 Insulin: NoDisp: 100 StripRfl: 5 Lancets lancetsTest blood sugar(s) two times times daily. Dx: Other DM Code E11.65 Insulin: NoDisp: 100 EachRfl: 11 metoprolol tartrate, short acting, (LOPRESSOR) 25 mg tabletTake 25 mg by mouth twice daily.Disp: Rfl: apixaban (ELIQUIS) 5 mg tab(s)Take by mouth twice daily.Disp: Rfl: fluticasone (FLONASE) 50 mcg/actuation nasal sprayUse 2 Sprays in each nostril once daily.Disp: 3 BottleRfl: 3 FAMILY HISTORY Problem Relation Age of Onset Prostate Cancer Father Breast Cancer Mother 40 Coronary Artery Disease Mother pace maker Coronary Artery Disease Father triple bypass Social History Tobacco Use Smoking status: Never Smokeless tobacco: Never Vaping Use Vaping status: Never Used Substance Use Topics Alcohol use: Yes Comment: rarely Drug use: No PHYSICAL EXAM BP 112/68 Pulse 64 Resp 16 Wt 81.2 kg (179 lb) SpO2 98% BMI 32.22 kg/m? General Appearance: well appearing, in no acute distress, alert Skin: Skin color, texture, turgor normal for age; Lungs: Lungs clear to auscultation. No wheezing, rhonchi, rales. Heart: RRR without murmur, gallop, or rubs. No ectopy Musculoskeletal: No joint swelling, deformity, or tenderness Neurological: Gait normal. Reflexes normal and symmetric. Sensation grossly intact. Health maintenance reviewed with patient: Depression Screening Never done Anxiety Screening Never done Diabetic Foot Exam due on 11/21/2022 Covid-19 Vaccine( season) due on 05/30/2024 RSV Vaccine(1 - 1-dose 75+ series) due on 10/26/2024 HbA1C due on 10/24/2024 Dilated Retinal Exam due on 12/01/2024 Urine Albumin:Creatinine Ratio due on 04/26/2025 LDL Cholesterol due on 04/26/2025 Annual PCP Team Chronic Disease Visit due (more content not included)... [facility] 06-09-2024 History of Presen t illness Narrative CC: Patient presents with: Recheck: 6 week follow up UTI and medication HPI Britney Canada is a 78 year old female who presents today for recheck after UTI which resulted in hospitalization, concern for second UTI and evaluation for continuing Jardiance. Patient denies any new symptoms of urinary tract infection including dysuria, burning or frequency. She is currently on Jardiance and metformin for her diabetes. She does feel like the Jardiance has helped her be able to lose weight and stabilize her blood sugars. Blood sugars at home average between 123 and 128 per patient, 116 this morning. She follows mostly a plant-based diet with eggs. She does walk around her house intentionally for exercise. Denies any other associated symptoms today REVIEW OF SYSTEMS General: no fevers, no chills, no recurrent infections, no change in appetite, no change in energy, and no significant changes in weight Respiratory: no cough, no wheezing, no shortness of breath Cardiovascular: no chest pain, no chest pressure, no palpitations, and no swelling : Negative for dysuria, frequency, and incontinence, See HPI Neurologic: No headache, weakness, numbness, tingling, neck stiffness, tremor, vertigo, dizziness, memory loss, syncope. See HPI PAST MEDICAL HISTORY Diagnosis Date Abnormal mammogram, unspecified Diabetes mellitus without mention of complication High blood pressure High cholesterol Thyroid disease PAST SURGICAL HISTORY Procedure Laterality Date CHOLECYSTECTOMY 1989 RPR UMBILICAL HRNA 5 YRS/> REDUCIBLE STEREOTACTIC CORE BIOPSY 10/18/08 RIGHT BREAST ALLERGIES Darvon [Propoxyphene Hcl] and Penicillins MEDICATIONS Lancets^Test blood sugar(s) 1 times daily. Dx: Type 2 DM - Controlled E11.9 Insulin: No^Disp: 100 Each^Rfl: 11 blood sugar diagnostic (BLOOD GLUCOSE TEST) test strip^Test blood sugar(s) 1 times daily. Dx: Type 2 DM - Controlled E11.9 Insulin: No^Disp: 50 Strip^Rfl: 11 levothyroxine (LEVOXYL) 50 mcg tablet^Take 1 tablet by mouth once daily. Take on empty stomach. For Thyroid^Disp: 90 tablet^Rfl: 1 losartan (COZAAR) 50 mg tablet^Take 1 tablet by mouth once daily.^Disp: 90 tablet^Rfl: 3 metFORMIN ER (GLUCOPHAGE XR) 500 mg 24 hr tablet^Take 2 tablets by mouth two times a day with meals.^Disp: 360 tablet^Rfl: 3 empagliflozin (JARDIANCE) 25 mg tablet^Take 1 tablet by mouth once daily. Take 1 tablet once daily in the morning^Disp: 90 tablet^Rfl: 3 clopidogrel (PLAVIX) 75 mg tablet^Take 1 tablet by mouth once daily. Take 75 mg by mouth once daily.^Disp: 90 tablet^Rfl: 3 atorvastatin (LIPITOR) 80 mg tablet^TAKE 1 TABLET BY MOUTH ONCE DAILY AT BEDTIME FOR CHOLESTEROL^Disp: 90 tablet^Rfl: 3 terconazole vaginal cream (TERAZOL) 0.8 % vaginal cream^Use 1 Applicator vaginally daily at bedtime.^Disp: 20 g^Rfl: 0 cyanocobalamin 1,000 mcg/mL^Inject 1 mL intramuscularly once every month.^Disp: 1 mL^Rfl: 12 blood sugar diagnostic (BLOOD GLUCOSE TEST) test strip^Test blood sugar(s) 2 times daily. Dx: Type 2 DM - Uncontrolled E11.65 Insulin: No^Disp: 100 Strip^Rfl: 5 Lancets lancets^Test blood sugar(s) two times times daily. Dx: Other DM Code E11.65 Insulin: No^Disp: 100 Each^Rfl: 11 metoprolol tartrate, short acting, (LOPRESSOR) 25 mg tablet^Take 25 mg by mouth twice daily.^Disp: ^Rfl: apixaban (ELIQUIS) 5 mg tab(s)^Take by mouth twice daily.^Disp: ^Rfl: fluticasone (FLONASE) 50 mcg/actuation nasal spray^Use 2 Sprays in each nostril once daily.^Disp: 3 Bottle^Rfl: 3 FAMILY HISTORY Problem Relation Age of Onset Prostate Cancer Father Breast Cancer Mother 40 Coronary Artery Disease Mother pace maker Coronary Artery Disease Father triple bypass Social History Tobacco Use Smoking status: Never Smokeless tobacco: Never Vaping Use Vaping status: Never Used Substance Use Topics Alcohol use: Yes Comment: rarely Drug use: No PHYSICAL EXAM BP 112/68 Pulse 64 Resp 16 Wt 81.2 kg (179 lb) SpO2 98% BMI 32.22 kg/m General Appearance: well appearing, in no acute distress, alert Skin: Skin color, texture, turgor normal for age; Lungs: Lungs clear to auscultation. No wheezing, rhonchi, rales. Heart: RRR without murmur, gallop, or rubs. No ectopy Musculoskeletal: No joint swelling, deformity, or tenderness Neurological: Gait normal. Reflexes normal and symmetric. Sensation grossly intact. Health maintenance reviewed with patient: Depression Screening Never done Anxiety Screening Never done Diabetic Foot Exam due on 11/21/2022 Covid-19 Vaccine( season) due on 05/30/2024 RSV Vaccine(1 - 1-dose 75+ series) due on 10/26/2024 HbA1C due on 10/24/2024 Dilated Retinal Exam due on 12/01/2024 Urine Albumin:Creatinine Ratio due on 04/26/2025 LDL Cholesterol due on 04/26/2025 Annual PCP Team Chronic Disease Visit due on 04/28/2025 BP Controlled (<130/80) due on 04/28/2025 DTaP,Tdap,Td Vaccine(2 - Td or Tdap) due on 01/16/2030 Bone Density Screening Completed Influenza Vaccine Completed Advance Directive Discussion Completed Hepatitis C Screening Completed Shingrix Vaccine Completed Pneumococcal Vaccine: 50+ Completed Mammogram Screening Discontinued Colorectal Cancer Screening Discontinued DATA REVIEWED: Most recent labs and imaging results. ASSESSMENT/PLAN: 1. Type 2 diabetes mellitus with hyperglycemia, without long-term current use of insulin (HCC) - ICD9: 250.00, 790.29, ICD10: E11.65 - Controlled - Continue current medications - Counseled on healthy diet and regular exercise - Discussed need for and benefit of weight loss. BMI 32.22 kg/(m^2) -She will continue Jardiance for now and notify us if any new UTI symptoms appear at that time we will discuss changing medications if needed - CLOPIDOGREL 75 MG TABLET - COMPLETE BLOOD COUNT AND DIFFERENTIAL - BASIC METABOLIC PANEL - HEMOGLOBIN A1C 2. Occipital stroke (HCC) - ICD9: 434.91, ICD10: I63.9 Refill requested - CLOPIDOGREL 75 MG TABLET 3. Essential hypertension - ICD9: 401.9, ICD10: I10 (primary diagnosis) - Controlled - Recommend home blood pressure monitoring, to bring results to next visit - Encouraged sodium restriction, DASH or Mediterranean diet - Recommend regular aerobic exercise - COMPLETE BLOOD COUNT AND DIFFERENTIAL - BASIC METABOLIC PANEL 4. Thyroid nodule - ICD9: 241.0, ICD10: E04.1 Monitoring, biopsy negative. Will follow TSH at next lab check - THYROID STIMULATING HORMONE - follow up in 3 months [facility] [employer]- student Prescription instructions reviewed with patient as applicable. Potential red flag symptoms discussed with the patient. Reviewed appropriate action plan to take if red flag symptoms occur. Patient agreeable to treatment plan. Astrid Muse APRN.CNP documented in this encounter [facility] 05-22-2024 Note HNO ID: [id number] Author: ?, ?, ? Service: ? Author Type: LICENSED NURSE Type: Progress Notes Filed: 05/22/2024 11:40 Note Text: Patient presents for B-12 injection. Denies any problems at this time. Patient instructed on any SE of medication, verbalized understanding and agreed to proceed with treatment. Tolerated injection well. Agueda Sabillon LPN [facility] 05-22-2024 History of Presen t illness Narrative Patient presents for B-12 injection. Denies any problems at this time. Patient instructed on any SE of medication, verbalized understanding and agreed to proceed with treatment. Tolerated injection well. Agueda Sabillon LPN documented in this encounter [facility] 04-28-2024 Note HNO ID: [id number] Author: ASTRID MUSE APRN.FINISH CLEANER Service: ? Author Type: Nurse Practitioner Type: Progress Notes Filed: 04/28/2024 14:19 Note Text: CC: Patient presents with: Recheck: 6 month follow up HPI Britney Canada is a 78 year old female who presents today for routine follow up. DIABETES MELLITUS: Ms. Canada denies excessive thirst, chest pain or dyspnea , numbness, tingling or pain in extremities, new or unusual visual symptoms, low sugar/hypoglycemic reactions, weight loss/gain, lightheadedness/dizziness, and bowel changes/loose stools. Follows a diabetic diet most of the time. She is compliant with medication(s) and is tolerating med(s) without any side effects. She reports checking her glucose on a once a day schedule with sugars in the <150 range. Patient's last HgA1C was Hemoglobin A1C (%) Date Value 04/26/2024 7.2 10/26/2023 7.7 03/25/2021 7.9 12/06/2020 8.3 Hemoglobin A1C (POCT) (%) Date Value 09/18/2022 9.0 11/21/2021 8.0 ) Has had ongoing urinary concerns. Was in the hospital with severe UTI 3 months ago which improved with cefdinir and concerned she needs retreated with this. Having some pressure to lower abdomen and just feels off but no severe pain with urination at this time. Recognizes the concern the jardiance increases risk of this but feels this has improved her diabetes and wants to keep trying to see if she can get this under control. Denies fever, chills, malaise, or other new concerns. REVIEW OF SYSTEMS See HPI PAST MEDICAL HISTORY Diagnosis Date Abnormal mammogram, unspecified Diabetes mellitus without mention of complication High blood pressure High cholesterol Thyroid disease PAST SURGICAL HISTORY Procedure Laterality Date CHOLECYSTECTOMY 1989 RPR UMBILICAL HRNA 5 YRS/> REDUCIBLE STEREOTACTIC CORE BIOPSY 10/18/08 RIGHT BREAST ALLERGIES Darvon [Propoxyphene Hcl] and Penicillins MEDICATIONS levothyroxine (LEVOXYL) 50 mcg tabletTake 1 tablet by mouth once daily. Take on empty stomach. For ThyroidDisp: 90 tabletRfl: 1 losartan (COZAAR) 50 mg tabletTake 1 tablet by mouth once daily.Disp: 90 tabletRfl: 3 metFORMIN ER (GLUCOPHAGE XR) 500 mg 24 hr tabletTake 2 tablets by mouth two times a day with meals.Disp: 360 tabletRfl: 3 empagliflozin (JARDIANCE) 25 mg tabletTake 1 tablet by mouth once daily. Take 1 tablet once daily in the morningDisp: 90 tabletRfl: 3 clopidogrel (PLAVIX) 75 mg tabletTake 1 tablet by mouth once daily. Take 75 mg by mouth once daily.Disp: 90 tabletRfl: 3 atorvastatin (LIPITOR) 80 mg tabletTAKE 1 TABLET BY MOUTH ONCE DAILY AT BEDTIME FOR CHOLESTEROLDisp: 90 tabletRfl: 3 terconazole vaginal cream (TERAZOL) 0.8 % vaginal creamUse 1 Applicator vaginally daily at bedtime.Disp: 20 gRfl: 0 cyanocobalamin 1,000 mcg/mLInject 1 mL intramuscularly once every month.Disp: 1 mLRfl: 12 blood sugar diagnostic (BLOOD GLUCOSE TEST) test stripTest blood sugar(s) 2 times daily. Dx: Type 2 DM - Uncontrolled E11.65 Insulin: NoDisp: 100 StripRfl: 5 Lancets lancetsTest blood sugar(s) two times times daily. Dx: Other DM Code E11.65 Insulin: NoDisp: 100 EachRfl: 11 metoprolol tartrate, short acting, (LOPRESSOR) 25 mg tabletTake 25 mg by mouth twice daily.Disp: Rfl: apixaban (ELIQUIS) 5 mg tab(s)Take by mouth twice daily.Disp: Rfl: fluticasone (FLONASE) 50 mcg/actuation nasal sprayUse 2 Sprays in each nostril once daily.Disp: 3 BottleRfl: 3 FAMILY HISTORY Problem Relation Age of Onset Prostate Cancer Father Breast Cancer Mother 40 Coronary Artery Disease Mother pace maker Coronary Artery Disease Father triple bypass Social History Tobacco Use Smoking status: Never Smokeless tobacco: Never Vaping Use Vaping status: Never Used Substance Use Topics Alcohol use: Yes Comment: rarely Drug use: No PHYSICAL EXAM BP 122/68 Pulse 64 Resp 16 Wt 80.3 kg (177 lb) SpO2 97% BMI 31.86 kg/m? General Appearance: well appearing, in no acute distress, alert Eyes: conjunctiva pink and moist, no icterus, sclera white, non-injected Lungs: Lungs clear to auscultation. No wheezing, rhonchi, rales. Heart: RRR without murmur, gallop, or rubs. No ectopy Abdomen: Abdomen soft, Bowel sounds normal. No masses, organomegaly. Slight tenderness to lower abdomen without grimacing guarding rigidity or rebound pain. Health maintenance reviewed with patient: Depression Screening Never done Anxiety Screening Never done Diabetic Foot Exam due on 11/21/2022 RSV Vaccine(1 - 1-dose 75+ series) due on 10/26/2024 Covid-19 Vaccine( season) due on 05/30/2024 HbA1C due on 10/24/2024 Dilated Retinal Exam due on 12/01/2024 Urine Albumin:Creatinine Ratio due on 04/26/2025 LDL Cholesterol due on 04/26/2025 Annual PCP Team Chronic Disease Visit due on 04/28/2025 BP Controlled (<130/80) due on 04/28/2025 DTaP,Tdap,Td Vaccine(2 - Td or Tdap) due on 01/16/2030 Bone Density Screening Com (more content not included)... [facility] 04-28-2024 History of Presen t illness Narrative CC: Patient presents with: Recheck: 6 month follow up HPI Britney Canada is a 78 year old female who presents today for routine follow up. DIABETES MELLITUS: Ms. Canada denies excessive thirst, chest pain or dyspnea , numbness, tingling or pain in extremities, new or unusual visual symptoms, low sugar/hypoglycemic reactions, weight loss/gain, lightheadedness/dizziness, and bowel changes/loose stools. Follows a diabetic diet most of the time. She is compliant with medication(s) and is tolerating med(s) without any side effects. She reports checking her glucose on a once a day schedule with sugars in the <150 range. Patient's last HgA1C was Hemoglobin A1C (%) Date Value 04/26/2024 7.2 10/26/2023 7.7 03/25/2021 7.9 12/06/2020 8.3 Hemoglobin A1C (POCT) (%) Date Value 09/18/2022 9.0 11/21/2021 8.0 ) Has had ongoing urinary concerns. Was in the hospital with severe UTI 3 months ago which improved with cefdinir and concerned she needs retreated with this. Having some pressure to lower abdomen and just feels off but no severe pain with urination at this time. Recognizes the concern the jardiance increases risk of this but feels this has improved her diabetes and wants to keep trying to see if she can get this under control. Denies fever, chills, malaise, or other new concerns. REVIEW OF SYSTEMS See HPI PAST MEDICAL HISTORY Diagnosis Date Abnormal mammogram, unspecified Diabetes mellitus without mention of complication High blood pressure High cholesterol Thyroid disease PAST SURGICAL HISTORY Procedure Laterality Date CHOLECYSTECTOMY 1989 RPR UMBILICAL HRNA 5 YRS/> REDUCIBLE STEREOTACTIC CORE BIOPSY 10/18/08 RIGHT BREAST ALLERGIES Darvon [Propoxyphene Hcl] and Penicillins MEDICATIONS levothyroxine (LEVOXYL) 50 mcg tablet^Take 1 tablet by mouth once daily. Take on empty stomach. For Thyroid^Disp: 90 tablet^Rfl: 1 losartan (COZAAR) 50 mg tablet^Take 1 tablet by mouth once daily.^Disp: 90 tablet^Rfl: 3 metFORMIN ER (GLUCOPHAGE XR) 500 mg 24 hr tablet^Take 2 tablets by mouth two times a day with meals.^Disp: 360 tablet^Rfl: 3 empagliflozin (JARDIANCE) 25 mg tablet^Take 1 tablet by mouth once daily. Take 1 tablet once daily in the morning^Disp: 90 tablet^Rfl: 3 clopidogrel (PLAVIX) 75 mg tablet^Take 1 tablet by mouth once daily. Take 75 mg by mouth once daily.^Disp: 90 tablet^Rfl: 3 atorvastatin (LIPITOR) 80 mg tablet^TAKE 1 TABLET BY MOUTH ONCE DAILY AT BEDTIME FOR CHOLESTEROL^Disp: 90 tablet^Rfl: 3 terconazole vaginal cream (TERAZOL) 0.8 % vaginal cream^Use 1 Applicator vaginally daily at bedtime.^Disp: 20 g^Rfl: 0 cyanocobalamin 1,000 mcg/mL^Inject 1 mL intramuscularly once every month.^Disp: 1 mL^Rfl: 12 blood sugar diagnostic (BLOOD GLUCOSE TEST) test strip^Test blood sugar(s) 2 times daily. Dx: Type 2 DM - Uncontrolled E11.65 Insulin: No^Disp: 100 Strip^Rfl: 5 Lancets lancets^Test blood sugar(s) two times times daily. Dx: Other DM Code E11.65 Insulin: No^Disp: 100 Each^Rfl: 11 metoprolol tartrate, short acting, (LOPRESSOR) 25 mg tablet^Take 25 mg by mouth twice daily.^Disp: ^Rfl: apixaban (ELIQUIS) 5 mg tab(s)^Take by mouth twice daily.^Disp: ^Rfl: fluticasone (FLONASE) 50 mcg/actuation nasal spray^Use 2 Sprays in each nostril once daily.^Disp: 3 Bottle^Rfl: 3 FAMILY HISTORY Problem Relation Age of Onset Prostate Cancer Father Breast Cancer Mother 40 Coronary Artery Disease Mother pace maker Coronary Artery Disease Father triple bypass Social History Tobacco Use Smoking status: Never Smokeless tobacco: Never Vaping Use Vaping status: Never Used Substance Use Topics Alcohol use: Yes Comment: rarely Drug use: No PHYSICAL EXAM BP 122/68 Pulse 64 Resp 16 Wt 80.3 kg (177 lb) SpO2 97% BMI 31.86 kg/m General Appearance: well appearing, in no acute distress, alert Eyes: conjunctiva pink and moist, no icterus, sclera white, non-injected Lungs: Lungs clear to auscultation. No wheezing, rhonchi, rales. Heart: RRR without murmur, gallop, or rubs. No ectopy Abdomen: Abdomen soft, Bowel sounds normal. No masses, organomegaly. Slight tenderness to lower abdomen without grimacing guarding rigidity or rebound pain. Health maintenance reviewed with patient: Depression Screening Never done Anxiety Screening Never done Diabetic Foot Exam due on 11/21/2022 RSV Vaccine(1 - 1-dose 75+ series) due on 10/26/2024 Covid-19 Vaccine( season) due on 05/30/2024 HbA1C due on 10/24/2024 Dilated Retinal Exam due on 12/01/2024 Urine Albumin:Creatinine Ratio due on 04/26/2025 LDL Cholesterol due on 04/26/2025 Annual PCP Team Chronic Disease Visit due on 04/28/2025 BP Controlled (<130/80) due on 04/28/2025 DTaP,Tdap,Td Vaccine(2 - Td or Tdap) due on 01/16/2030 Bone Density Screening Completed Influenza Vaccine Completed Advance Directive Discussion Completed Hepatitis C Screening Completed Shingrix Vaccine Completed Pneumococcal Vaccine: 50+ Completed Mammogram Screening Discontinued Colorectal Cancer Screening Discontinued DATA REVIEWED: Most recent labs ASSESSMENT/PLAN: 1. Diabetes mellitus type 2 with complications (HCC) - ICD9: 250.90, ICD10: E11.8 (primary diagnosis) - Uncontrolled - patient wanting to continue with diet changes and add regular exercise to lower glucose. Feels her urinary issues are keeping her A1c elevated above 7 - understands the jardiance may be cause of the urinary issues but wants to try one more treatment for possible UTI and then if needed stop the jardiance and trial januvia - Continue current medications - Blood glucose monitoring on a once daily schedule - Counseled on healthy diet and regular exercise - Discussed need for and benefit of weight loss. BMI 31.86 kg/(m^2) 2. Urinary tract infection without hematuria, site unspecified - ICD9: 599.0, ICD10: N39.0 Recent severe reaction resulting in hospitalization. Similar symptoms. UA with bacteria and leuks but culture negative. Possibly symptoms result of bladder irritation. Patient agreeable to stop the jardiance if she can try one more UTI treatment and if still with symptoms or return of UTI then will try alternate diabetic treatment Cefdinir as ordered as this was what was effective with last hospitalization. Follow up in office in 6 weeks, will dip urine and evaluate symptoms then 3. Lower abdominal tenderness - ICD9: 789.69, ICD10: R10.819 As above Prescription instructions reviewed with patient as applicable. Potential red flag symptoms discussed with the patient. Reviewed appropriate action plan to take if red flag symptoms occur. Patient agreeable to treatment plan. Astrid Muse APRN.CNP documented in this encounter [facility] 04-10-2024 Note HNO ID: [id number] Author: JUSTIN CHRISTOPHER MD Service: ? Author Type: Physician Type: Progress Notes Filed: 04/10/2024 12:38 Note Text: Preoperative diagnosis: Left thyroid nodule Postoperative diagnosis: The same Procedure: Ultrasound-guided fine-needle aspiration of dominant left thyroid nodule Surgical [facility] Procedure: Ultrasound of the left thyroid revealed the 2.2 cm nodule. I prepped the skin with alcohol. I injected 1% lidocaine plain. Under ultrasound guidance 4 passes with a 22-gauge needle were performed. Plated these on glass slides and sent an Afirma test off as well. Sterile dressings were applied and the patient tolerated the procedure well. [facility] 04-10-2024 History of Presen t illness Narrative Preoperative diagnosis: Left thyroid nodule Postoperative diagnosis: The same Procedure: Ultrasound-guided fine-needle aspiration of dominant left thyroid nodule Surgical Candi Procedure: Ultrasound of the left thyroid revealed the 2.2 cm nodule. I prepped the skin with alcohol. I injected 1% lidocaine plain. Under ultrasound guidance 4 passes with a 22-gauge needle were performed. Plated these on glass slides and sent an Afirma test off as well. Sterile dressings were applied and the patient tolerated the procedure well. UNIVERSAL PROTOCOL / SAFETY CHECKLIST Procedure to be Performed: Ultrasound Guided Fine Needle Aspiration Thyroid left Sign In: A Moment of CARE was completed. Personnel directly involved with the procedure wore the appropriate PPE (Personal Protective Equipment). No special equipment needed. Patient/Surrogate Stated/Verified: PATIENT VERIFIED(optional for EMERGENT procedures): Patient name, Date of , Relevant allergies, and The intended procedure Time Out Communication: Intended patient and procedure match the source documents. Consent documented and matches the intended procedure. Relevant labs, photos, and/or imaging studies have been reviewed. Correct side/site marked and visible. Medications required for procedure verified. No fire risk assessment and interventions applicable. No implant(s) inserted. Sign Out: SIGN OUT (optional for EMERGENT procedures): All specimen containers correctly labeled. All instruments, equipment, possible retained foreign bodies accounted for. Post-procedure follow-up management communicated and Plan of Care Visit completed when applicable. Melinda Martinez RN documented in this encounter [facility] 04-03-2024 Instructions Melinda Martinez RN - 04/03/2024 1:36 PM EST The following instructions are important for you related to your office visit today with the [facility] General Surgeons. Instructions After THYROID FINE NEEDLE ASPIRATION Please do not take aspirin or other blood thinners for the next few days. If you have bleeding from the needle site, hold pressure with a clean gauze. If the bleeding continues, contact our office immediately. I recommend taking Advil or Tylenol for the discomfort. An ice pack may improve your discomfort to the area. Contact our office immediately if you have any questions or concerns @ [phone]. Please make an appointment to follow up in one week with your physician and [facility] If you note any additional difficulties, questions, or concerns, you should contact our office immediately @ [phone] and ask to be transferred to the General Surgery department. documented in this encounter [facility] 04-03-2024 Note HNO ID: [id number] Author: MELINDA MARTINEZ RN Service: ? Author Type: Registered Nurse Type: Progress Notes Filed: 04/03/2024 13:34 Note Text: UNIVERSAL PROTOCOL / SAFETY CHECKLIST Procedure to be Performed: Ultrasound Guided Fine Needle Aspiration Thyroid left Sign In: A Moment of CARE was completed. Personnel directly involved with the procedure wore the appropriate PPE (Personal Protective Equipment). No special equipment needed. Patient/Surrogate Stated/Verified: PATIENT VERIFIED(optional for EMERGENT procedures): Patient name, Date of , Relevant allergies, and The intended procedure Time Out Communication: Intended patient and procedure match the source documents. Consent documented and matches the intended procedure. Relevant labs, photos, and/or imaging studies have been reviewed. Correct side/site marked and visible. Medications required for procedure verified. No fire risk assessment and interventions applicable. No implant(s) inserted. Sign Out: SIGN OUT (optional for EMERGENT procedures): All specimen containers correctly labeled. All instruments, equipment, possible retained foreign bodies accounted for. Post-procedure follow-up management communicated and Plan of Care Visit completed when applicable. Melinda Martinez RN [facility] 03-20-2024 Note HNO ID: [id number] Author: JUSTIN CHRISTOPHER MD Service: ? Author Type: Physician Type: Progress Notes Filed: 03/21/2024 08:56 Note Text: HISTORY AND PHYSICAL Britney David [place] 1945 REFERRING PHYSICIAN: Astrid Muse APRN.FINISH CLEANER CHIEF COMPLAINT: Consult (Thyroid Nodule) HPI: The patient is a 78 year old female with a complaint of a left thyroid nodule. This thyroid nodule was found on Ultrasound by [facility]. The patient denies pain, denies difficulty swallowing, deniesrapid enlargement of the neck, deniesdysphagia, denies a change in the voice, denies hot or cold intolerence. The patient has not a prior history of neck radiation treatment. The patient has thyroid function testing. THS - 1.770. The patient is being seen by me today at the request of Dr. Muse for my opinion and advice regarding Thyroid nodule. PAST MEDICAL HISTORY Diagnosis Date Abnormal mammogram, unspecified Diabetes mellitus without mention of complication High blood pressure High cholesterol Thyroid disease PAST SURGICAL HISTORY Procedure Laterality Date CHOLECYSTECTOMY 1989 RPR UMBILICAL HRNA 5 YRS/> REDUCIBLE STEREOTACTIC CORE BIOPSY 10/18/08 RIGHT BREAST Current Outpatient Medications Medication Sig Dispense Refill levothyroxine (LEVOXYL) 50 mcg tablet Take 1 tablet by mouth once daily. Take on empty stomach. For Thyroid 90 tablet 1 losartan (COZAAR) 50 mg tablet Take 1 tablet by mouth once daily. 90 tablet 3 metFORMIN ER (GLUCOPHAGE XR) 500 mg 24 hr tablet Take 2 tablets by mouth two times a day with meals. 360 tablet 3 empagliflozin (JARDIANCE) 25 mg tablet Take 1 tablet by mouth once daily. Take 1 tablet once daily in the morning 90 tablet 3 clopidogrel (PLAVIX) 75 mg tablet Take 1 tablet by mouth once daily. Take 75 mg by mouth once daily. 90 tablet 3 atorvastatin (LIPITOR) 80 mg tablet TAKE 1 TABLET BY MOUTH ONCE DAILY AT BEDTIME FOR CHOLESTEROL 90 tablet 3 terconazole vaginal cream (TERAZOL) 0.8 % vaginal cream Use 1 Applicator vaginally daily at bedtime. 20 g 0 cyanocobalamin 1,000 mcg/mL Inject 1 mL intramuscularly once every month. 1 mL 12 blood sugar diagnostic (BLOOD GLUCOSE TEST) test strip Test blood sugar(s) 2 times daily. Dx: Type 2 DM - Uncontrolled E11.65 Insulin: No 100 Strip 5 Lancets lancets Test blood sugar(s) two times times daily. Dx: Other DM Code E11.65 Insulin: No 100 Each 11 metoprolol tartrate, short acting, (LOPRESSOR) 25 mg tablet Take 25 mg by mouth twice daily. apixaban (ELIQUIS) 5 mg tab(s) Take by mouth twice daily. fluticasone (FLONASE) 50 mcg/actuation nasal spray Use 2 Sprays in each nostril once daily. 3 Bottle 3 Current Facility-Administered Medications Medication Dose Route Frequency Provider Last Rate Last Admin cyanocobalamin 1,000 mcg injection 1,000 mcg INTRAMUSCULAR q 4 WEEKS Older, FERCHO Resendiz.FINISH CLEANER 1,000 mcg at 03/20/24 1129 ALLERGIES: Darvon [Propoxyphene Hcl] and Penicillins PERSONAL HISTORY: Social History Tobacco Use Smoking status: Never Smokeless tobacco: Never Substance Use Topics Alcohol use: Yes Comment: rarely Drug use: No FAMILY HISTORY: FAMILY HISTORY Problem Relation Age of Onset Prostate Cancer Father Breast Cancer Mother 40 Coronary Artery Disease Mother pace maker Coronary Artery Disease Father triple bypass REVIEW OF SYMPTOMS: negative except as noted above PHYSICAL EXAMINATION: General: The patient is 78 year old female, well nourished, well hydrated in no acute distress. The patient is oriented to time, place, and person. VITALS: Blood pressure 113/65, pulse 61, temperature 36.4 ?C (97.5 ?F), height 158.8 cm (5' 2.5), weight 82.1 kg (181 lb), SpO2 97%. Body mass index is 32.58 kg/m?. HEENT: Normal cephalic, ataumatic, pupils are equally round, sclera are anicteric, mucous membranes are moist, oropharynx is clear. Neck has no masses, asymmetry or lymphadenopathy. Thyroid exam no hard nodules palpable. Respiratory: Clear to auscultation and percussion. Normal respiratory excursion and pattern. Cardiac: Examination is regular rate and rhythm. Abdominal exam: Soft, nontender, with no palpable masses. No hepatosplenomegaly. No palpable hernias. Rectal exam: exam deferred Extremities: no clubbing, cyanosis or edema. No adenopathy. Other: LABORATORY VALUES: As Noted RADIOLOGIC STUDIES: As Noted Assessment IMPRESSION: NODULE - left THYROID PLAN: I plan to perform an FNAC of the left Thyroid. Diagnoses: (E04.1) Thyroid nodule My findings have been communicated to Dr. Muse via shared medical record. This note will be forwarded to Dr. Jones Velasquez MD. Return to Clinic: The patient is instructed to follow-up with me 1 week post operatively. Justin Christopher III, MD [facility] 03-20-2024 History of Presen t illness Narrative HISTORY AND PHYSICAL Britney [place] 1945 REFERRING PHYSICIAN: Astrid Muse APRN.FINISH CLEANER CHIEF COMPLAINT: Consult (Thyroid Nodule) HPI: The patient is a 78 year old female with a complaint of a left thyroid nodule. This thyroid nodule was found on Ultrasound by [facility]. The patient denies pain, denies difficulty swallowing, deniesrapid enlargement of the neck, deniesdysphagia, denies a change in the voice, denies hot or cold intolerence. The patient has not a prior history of neck radiation treatment. The patient has thyroid function testing. THS - 1.770. The patient is being seen by me today at the request of Dr. Muse for my opinion and advice regarding Thyroid nodule. PAST MEDICAL HISTORY Diagnosis Date Abnormal mammogram, unspecified Diabetes mellitus without mention of complication High blood pressure High cholesterol Thyroid disease PAST SURGICAL HISTORY Procedure Laterality Date CHOLECYSTECTOMY 1989 RPR UMBILICAL HRNA 5 YRS/> REDUCIBLE STEREOTACTIC CORE BIOPSY 10/18/08 RIGHT BREAST Current Outpatient Medications Medication Sig Dispense Refill levothyroxine (LEVOXYL) 50 mcg tablet Take 1 tablet by mouth once daily. Take on empty stomach. For Thyroid 90 tablet 1 losartan (COZAAR) 50 mg tablet Take 1 tablet by mouth once daily. 90 tablet 3 metFORMIN ER (GLUCOPHAGE XR) 500 mg 24 hr tablet Take 2 tablets by mouth two times a day with meals. 360 tablet 3 empagliflozin (JARDIANCE) 25 mg tablet Take 1 tablet by mouth once daily. Take 1 tablet once daily in the morning 90 tablet 3 clopidogrel (PLAVIX) 75 mg tablet Take 1 tablet by mouth once daily. Take 75 mg by mouth once daily. 90 tablet 3 atorvastatin (LIPITOR) 80 mg tablet TAKE 1 TABLET BY MOUTH ONCE DAILY AT BEDTIME FOR CHOLESTEROL 90 tablet 3 terconazole vaginal cream (TERAZOL) 0.8 % vaginal cream Use 1 Applicator vaginally daily at bedtime. 20 g 0 cyanocobalamin 1,000 mcg/mL Inject 1 mL intramuscularly once every month. 1 mL 12 blood sugar diagnostic (BLOOD GLUCOSE TEST) test strip Test blood sugar(s) 2 times daily. Dx: Type 2 DM - Uncontrolled E11.65 Insulin: No 100 Strip 5 Lancets lancets Test blood sugar(s) two times times daily. Dx: Other DM Code E11.65 Insulin: No 100 Each 11 metoprolol tartrate, short acting, (LOPRESSOR) 25 mg tablet Take 25 mg by mouth twice daily. apixaban (ELIQUIS) 5 mg tab(s) Take by mouth twice daily. fluticasone (FLONASE) 50 mcg/actuation nasal spray Use 2 Sprays in each nostril once daily. 3 Bottle 3 Current Facility-Administered Medications Medication Dose Route Frequency Provider Last Rate Last Admin cyanocobalamin 1,000 mcg injection 1,000 mcg INTRAMUSCULAR q 4 WEEKS Astrid Muse APRN.FINISH CLEANER 1,000 mcg at 03/20/24 1129 ALLERGIES: Darvon [Propoxyphene Hcl] and Penicillins PERSONAL HISTORY: Social History Tobacco Use Smoking status: Never Smokeless tobacco: Never Substance Use Topics Alcohol use: Yes Comment: rarely Drug use: No FAMILY HISTORY: FAMILY HISTORY Problem Relation Age of Onset Prostate Cancer Father Breast Cancer Mother 40 Coronary Artery Disease Mother pace maker Coronary Artery Disease Father triple bypass REVIEW OF SYMPTOMS: negative except as noted above PHYSICAL EXAMINATION: General: The patient is 78 year old female, well nourished, well hydrated in no acute distress. The patient is oriented to time, place, and person. VITALS: Blood pressure 113/65, pulse 61, temperature 36.4 C (97.5 F), height 158.8 cm (5' 2.5), weight 82.1 kg (181 lb), SpO2 97%. Body mass index is 32.58 kg/m . HEENT: Normal cephalic, ataumatic, pupils are equally round, sclera are anicteric, mucous membranes are moist, oropharynx is clear. Neck has no masses, asymmetry or lymphadenopathy. Thyroid exam no hard nodules palpable. Respiratory: Clear to auscultation and percussion. Normal respiratory excursion and pattern. Cardiac: Examination is regular rate and rhythm. Abdominal exam: Soft, nontender, with no palpable masses. No hepatosplenomegaly. No palpable hernias. Rectal exam: exam deferred Extremities: no clubbing, cyanosis or edema. No adenopathy. Other: LABORATORY VALUES: As Noted RADIOLOGIC STUDIES: As Noted Assessment IMPRESSION: NODULE - left THYROID PLAN: I plan to perform an FNAC of the left Thyroid. Diagnoses: (E04.1) Thyroid nodule My findings have been communicated to Dr. Muse via shared medical record. This note will be forwarded to Dr. Jones Velasquez MD. Return to Clinic: The patient is instructed to follow-up with me 1 week post operatively. Justin Christopher III, MD REVIEW OF SYSTEMS: General: The patient denies fatigue, denies weight loss, denies weight gain, denies feeling hot, and denies feelings of cold. Eyes: The patient NOTES glaucoma, denies eye injury/surgery, wears glasses or contacts. Ear/Nose/Throat: The patient NOTES allergies, denies hayfever, denies ear infections, and denies bloody noses. Cardiovascular: The patient denies chest pain, denies heart disease, NOTES high blood pressure, NOTES high cholesterol, and denies poor circulation. Respiratory: The patient denies tuberculosis, denies pneumonia, denies frequent cough, denies shortness of breath, and denies coughing up blood. Gastrointestinal: The patient denies difficulty swallowing, denies acid reflux, denies ulcers, denies jaundice/hepatitis, denies gallbladder problems, denies vomiting, denies black or tarry stools, denies hemorrhoids, denies bleeding from rectum, denies diverticulitis, denies constipation, denies diarrhea, denies loss of stool control, and denies hernias. Kidney/Bladder: The patient denies kidney stones, denies urine infections, and denies bloody urine. Skin: The patient denies a history of skin cancer, denies bleeding/changing moles, and denies a history of skin rash. Neurologic: The patient denies a history of epilepsy/convulsions, denies headaches, denies head/spinal injuries, and denies stroke/TIA. Psychiatric: The patient denies psychiatric medications, denies depression, and denies voices. Endocrine: The patient NOTES thyroid disorders, NOTES diabetes, and denies hormonal problems. Hematologic: The patient NOTES a history of bruising, NOTES bleeding, and denies anemia. Infections: The patient NOTES a history of measles and mumps, denies rheumatic fever, and denies sexually transmitted diseases. Musculoskeletal: The patient denies back pain/injury, denies back problems, denies sciatica, NOTES knee/foot trouble, NOTES arthritis, or denies gout. documented in this encounter [facility] 03-20-2024 Note HNO ID: [id number] Author: AYLIN VELAZQUEZ LPN Service: ? Author Type: LICENSED NURSE Type: Progress Notes Filed: 03/21/2024 08:56 Note Text: REVIEW OF SYSTEMS: General: The patient denies fatigue, denies weight loss, denies weight gain, denies feeling hot, and denies feelings of cold. Eyes: The patient NOTES glaucoma, denies eye injury/surgery, wears glasses or contacts. Ear/Nose/Throat: The patient NOTES allergies, denies hayfever, denies ear infections, and denies bloody noses. Cardiovascular: The patient denies chest pain, denies heart disease, NOTES high blood pressure, NOTES high cholesterol, and denies poor circulation. Respiratory: The patient denies tuberculosis, denies pneumonia, denies frequent cough, denies shortness of breath, and denies coughing up blood. Gastrointestinal: The patient denies difficulty swallowing, denies acid reflux, denies ulcers, denies jaundice/hepatitis, denies gallbladder problems, denies vomiting, denies black or tarry stools, denies hemorrhoids, denies bleeding from rectum, denies diverticulitis, denies constipation, denies diarrhea, denies loss of stool control, and denies hernias. Kidney/Bladder: The patient denies kidney stones, denies urine infections, and denies bloody urine. Skin: The patient denies a history of skin cancer, denies bleeding/changing moles, and denies a history of skin rash. Neurologic: The patient denies a history of epilepsy/convulsions, denies headaches, denies head/spinal injuries, and denies stroke/TIA. Psychiatric: The patient denies psychiatric medications, denies depression, and denies voices. Endocrine: The patient NOTES thyroid disorders, NOTES diabetes, and denies hormonal problems. Hematologic: The patient NOTES a history of bruising, NOTES bleeding, and denies anemia. Infections: The patient NOTES a history of measles and mumps, denies rheumatic fever, and denies sexually transmitted diseases. Musculoskeletal: The patient denies back pain/injury, denies back problems, denies sciatica, NOTES knee/foot trouble, NOTES arthritis, or denies gout. [facility] 03-20-2024 Note HNO ID: [id number] Author: AGUEDA SABILLON LPN Service: ? Author Type: LICENSED NURSE Type: Progress Notes Filed: 03/20/2024 11:31 Note Text: Patient presents for B-12 injection. Denies any problems at this time. Patient instructed on any SE of medication, verbalized understanding and agreed to proceed with treatment. Tolerated injection well. Agueda Sabillon LPN [facility] 03-20-2024 History of Presen t illness Narrative Patient presents for B-12 injection. Denies any problems at this time. Patient instructed on any SE of medication, verbalized understanding and agreed to proceed with treatment. Tolerated injection well. Agueda Sabillon LPN documented in this encounter [facility] 03-15-2024 Note HNO ID: [id number] Author: ASTRID MUSE APRN.FINISH CLEANER Service: ? Author Type: Nurse Practitioner Type: Progress Notes Filed: 03/15/2024 11:10 Note Text: CC: Patient presents with: Recheck: 6 week follow up HPI Britney Canada is a 78 year old female who presents today for follow up. Was seen 6 weeks ago after hospiialization from severe vomiting and UTI. Denies any abdominal pain, difficulty/pain with urinating, fever, chills, dark/foul smelling urine, nausea, or vomiting HTN: Ms. Canada denies headache, chest pain, palpitations, dyspnea, and peripheral edema. Patient denies any side effects of her medication(s) and is compliant with their regimen. She does not check BP's generally. Britney denies regular aerobic exercise. She watches her diet for sodium, low fat and low cholesterol most of the time. Last 3 Encounter BP Readings: Date: BP: 03/15/2024 128/74 02/02/2024 128/72 10/27/2023 124/68 DIABETES MELLITUS: Ms. Canada denies excessive thirst or increased frequency of urination, chest pain or dyspnea , numbness, tingling or pain in extremities, new or unusual visual symptoms, low sugar/hypoglycemic reactions, weight loss/gain, lightheadedness/dizziness, and bowel changes/loose stools. Follows a diabetic diet most of the time. She is compliant with medication(s) and is tolerating med(s) without any side effects. She reports checking her glucose on a once a day schedule with sugars in the fasting 110s range. Patient's last HgA1C was Hemoglobin A1C (%) Date Value 10/26/2023 7.7 04/27/2023 7.7 03/25/2021 7.9 12/06/2020 8.3 Hemoglobin A1C (POCT) (%) Date Value 09/18/2022 9.0 11/21/2021 8.0 ) REVIEW OF SYSTEMS See HPI PAST MEDICAL HISTORY Diagnosis Date Abnormal mammogram, unspecified Diabetes mellitus without mention of complication PAST SURGICAL HISTORY Procedure Laterality Date CHOLECYSTECTOMY 1989 RPR UMBILICAL HRNA 5 YRS/> REDUCIBLE STEREOTACTIC CORE BIOPSY 10/18/08 RIGHT BREAST ALLERGIES Darvon [Propoxyphene Hcl] and Penicillins MEDICATIONS levothyroxine (LEVOXYL) 50 mcg tabletTake 1 tablet by mouth once daily. Take on empty stomach. For ThyroidDisp: 90 tabletRfl: 1 losartan (COZAAR) 50 mg tabletTake 1 tablet by mouth once daily.Disp: 90 tabletRfl: 3 metFORMIN ER (GLUCOPHAGE XR) 500 mg 24 hr tabletTake 2 tablets by mouth two times a day with meals.Disp: 360 tabletRfl: 3 empagliflozin (JARDIANCE) 25 mg tabletTake 1 tablet by mouth once daily. Take 1 tablet once daily in the morningDisp: 90 tabletRfl: 3 clopidogrel (PLAVIX) 75 mg tabletTake 1 tablet by mouth once daily. Take 75 mg by mouth once daily.Disp: 90 tabletRfl: 3 atorvastatin (LIPITOR) 80 mg tabletTAKE 1 TABLET BY MOUTH ONCE DAILY AT BEDTIME FOR CHOLESTEROLDisp: 90 tabletRfl: 3 terconazole vaginal cream (TERAZOL) 0.8 % vaginal creamUse 1 Applicator vaginally daily at bedtime.Disp: 20 gRfl: 0 cyanocobalamin 1,000 mcg/mLInject 1 mL intramuscularly once every month.Disp: 1 mLRfl: 12 blood sugar diagnostic (BLOOD GLUCOSE TEST) test stripTest blood sugar(s) 2 times daily. Dx: Type 2 DM - Uncontrolled E11.65 Insulin: NoDisp: 100 StripRfl: 5 Lancets lancetsTest blood sugar(s) two times times daily. Dx: Other DM Code E11.65 Insulin: NoDisp: 100 EachRfl: 11 metoprolol tartrate, short acting, (LOPRESSOR) 25 mg tabletTake 25 mg by mouth twice daily.Disp: Rfl: apixaban (ELIQUIS) 5 mg tab(s)Take by mouth twice daily.Disp: Rfl: fluticasone (FLONASE) 50 mcg/actuation nasal sprayUse 2 Sprays in each nostril once daily.Disp: 3 BottleRfl: 3 FAMILY HISTORY Problem Relation Age of Onset Prostate Cancer Father Breast Cancer Mother 40 Coronary Artery Disease Mother pace maker Coronary Artery Disease Father triple bypass Social History Tobacco Use Smoking status: Never Smokeless tobacco: Never Substance Use Topics Alcohol use: Yes Comment: rarely Drug use: No PHYSICAL EXAM BP 128/74 Pulse 60 Resp 16 Wt 82.6 kg (182 lb) SpO2 95% BMI 33.29 kg/m? General Appearance: well appearing, in no acute distress, alert Eyes: conjunctiva pink and moist, no icterus, sclera white, non-injected Lungs: Lungs clear to auscultation. No wheezing, rhonchi, rales. Heart: RRR without murmur, gallop, or rubs. No ectopy Health maintenance reviewed with patient: Depression Screening Never done Anxiety Screening Never done Urine Albumin:Creatinine Ratio due on 11/01/2020 Diabetic Foot Exam due on 11/21/2022 Advance Directive Discussion due on 03/08/2024 RSV Vaccine(1 - 1-dose 75+ series) due on 10/26/2024 LDL Cholesterol due on 04/27/2024 HbA1C due on 07/19/2024 Dilated Retinal Exam due on 12/01/2024 Annual PCP Team Chronic Disease Visit due on 02/01/2025 BP Controlled (<130/80) due on 02/01/2025 DTaP,Tdap,Td Vaccine(2 - Td or Tdap) due on 01/16/2030 Bone Density Screening Completed Influenza Vaccine Completed Hepatitis C Screening Completed Shingrix Vac (more content not included)... [facility] 03-15-2024 History of Presen t illness Narrative CC: Patient presents with: Recheck: 6 week follow up HPI Britney Canada is a 78 year old female who presents today for follow up. Was seen 6 weeks ago after hospiialization from severe vomiting and UTI. Denies any abdominal pain, difficulty/pain with urinating, fever, chills, dark/foul smelling urine, nausea, or vomiting HTN: Ms. Canada denies headache, chest pain, palpitations, dyspnea, and peripheral edema. Patient denies any side effects of her medication(s) and is compliant with their regimen. She does not check BP's generally. Britney denies regular aerobic exercise. She watches her diet for sodium, low fat and low cholesterol most of the time. Last 3 Encounter BP Readings: Date: BP: 03/15/2024 128/74 02/02/2024 128/72 10/27/2023 124/68 DIABETES MELLITUS: Ms. Canada denies excessive thirst or increased frequency of urination, chest pain or dyspnea , numbness, tingling or pain in extremities, new or unusual visual symptoms, low sugar/hypoglycemic reactions, weight loss/gain, lightheadedness/dizziness, and bowel changes/loose stools. Follows a diabetic diet most of the time. She is compliant with medication(s) and is tolerating med(s) without any side effects. She reports checking her glucose on a once a day schedule with sugars in the fasting 110s range. Patient's last HgA1C was Hemoglobin A1C (%) Date Value 10/26/2023 7.7 04/27/2023 7.7 03/25/2021 7.9 12/06/2020 8.3 Hemoglobin A1C (POCT) (%) Date Value 09/18/2022 9.0 11/21/2021 8.0 ) REVIEW OF SYSTEMS See HPI PAST MEDICAL HISTORY Diagnosis Date Abnormal mammogram, unspecified Diabetes mellitus without mention of complication PAST SURGICAL HISTORY Procedure Laterality Date CHOLECYSTECTOMY 1989 RPR UMBILICAL HRNA 5 YRS/> REDUCIBLE STEREOTACTIC CORE BIOPSY 10/18/08 RIGHT BREAST ALLERGIES Darvon [Propoxyphene Hcl] and Penicillins MEDICATIONS levothyroxine (LEVOXYL) 50 mcg tablet^Take 1 tablet by mouth once daily. Take on empty stomach. For Thyroid^Disp: 90 tablet^Rfl: 1 losartan (COZAAR) 50 mg tablet^Take 1 tablet by mouth once daily.^Disp: 90 tablet^Rfl: 3 metFORMIN ER (GLUCOPHAGE XR) 500 mg 24 hr tablet^Take 2 tablets by mouth two times a day with meals.^Disp: 360 tablet^Rfl: 3 empagliflozin (JARDIANCE) 25 mg tablet^Take 1 tablet by mouth once daily. Take 1 tablet once daily in the morning^Disp: 90 tablet^Rfl: 3 clopidogrel (PLAVIX) 75 mg tablet^Take 1 tablet by mouth once daily. Take 75 mg by mouth once daily.^Disp: 90 tablet^Rfl: 3 atorvastatin (LIPITOR) 80 mg tablet^TAKE 1 TABLET BY MOUTH ONCE DAILY AT BEDTIME FOR CHOLESTEROL^Disp: 90 tablet^Rfl: 3 terconazole vaginal cream (TERAZOL) 0.8 % vaginal cream^Use 1 Applicator vaginally daily at bedtime.^Disp: 20 g^Rfl: 0 cyanocobalamin 1,000 mcg/mL^Inject 1 mL intramuscularly once every month.^Disp: 1 mL^Rfl: 12 blood sugar diagnostic (BLOOD GLUCOSE TEST) test strip^Test blood sugar(s) 2 times daily. Dx: Type 2 DM - Uncontrolled E11.65 Insulin: No^Disp: 100 Strip^Rfl: 5 Lancets lancets^Test blood sugar(s) two times times daily. Dx: Other DM Code E11.65 Insulin: No^Disp: 100 Each^Rfl: 11 metoprolol tartrate, short acting, (LOPRESSOR) 25 mg tablet^Take 25 mg by mouth twice daily.^Disp: ^Rfl: apixaban (ELIQUIS) 5 mg tab(s)^Take by mouth twice daily.^Disp: ^Rfl: fluticasone (FLONASE) 50 mcg/actuation nasal spray^Use 2 Sprays in each nostril once daily.^Disp: 3 Bottle^Rfl: 3 FAMILY HISTORY Problem Relation Age of Onset Prostate Cancer Father Breast Cancer Mother 40 Coronary Artery Disease Mother pace maker Coronary Artery Disease Father triple bypass Social History Tobacco Use Smoking status: Never Smokeless tobacco: Never Substance Use Topics Alcohol use: Yes Comment: rarely Drug use: No PHYSICAL EXAM BP 128/74 Pulse 60 Resp 16 Wt 82.6 kg (182 lb) SpO2 95% BMI 33.29 kg/m General Appearance: well appearing, in no acute distress, alert Eyes: conjunctiva pink and moist, no icterus, sclera white, non-injected Lungs: Lungs clear to auscultation. No wheezing, rhonchi, rales. Heart: RRR without murmur, gallop, or rubs. No ectopy Health maintenance reviewed with patient: Depression Screening Never done Anxiety Screening Never done Urine Albumin:Creatinine Ratio due on 11/01/2020 Diabetic Foot Exam due on 11/21/2022 Advance Directive Discussion due on 03/08/2024 RSV Vaccine(1 - 1-dose 75+ series) due on 10/26/2024 LDL Cholesterol due on 04/27/2024 HbA1C due on 07/19/2024 Dilated Retinal Exam due on 12/01/2024 Annual PCP Team Chronic Disease Visit due on 02/01/2025 BP Controlled (<130/80) due on 02/01/2025 DTaP,Tdap,Td Vaccine(2 - Td or Tdap) due on 01/16/2030 Bone Density Screening Completed Influenza Vaccine Completed Hepatitis C Screening Completed Shingrix Vaccine Completed Covid-19 Vaccine Completed Pneumococcal Vaccine: 50+ Completed Mammogram Screening Discontinued Colorectal Cancer Screening Discontinued DATA REVIEWED: No new labs ASSESSMENT/PLAN: 1. Urinary tract infection without hematuria, site unspecified - ICD9: 599.0, ICD10: N39.0 (primary diagnosis) Asymptomatic. Last urine 4 weeks ago was abnormal without infection so will repeat - URINALYSIS (WITH MICROSCOPIC) WITH CULTURE IF INDICATED 2. Essential hypertension - ICD9: 401.9, ICD10: I10 - Controlled - Continue current medications - Recommend home blood pressure monitoring, to bring results to next visit - Encouraged sodium restriction, DASH or Mediterranean diet - Recommend regular aerobic exercise 3. Diabetes mellitus type 2 with complications (HCC) - ICD9: 250.90, ICD10: E11.8 - Improving control - Continue current medications - Blood glucose monitoring on a once daily schedule - Counseled on healthy diet and regular exercise - Discussed need for and benefit of weight loss. BMI 33.29 kg/(m^2) - ALBUMIN/CREATININE RATIO, URINE Prescription instructions reviewed with patient as applicable. Potential red flag symptoms discussed with the patient. Reviewed appropriate action plan to take if red flag symptoms occur. Patient agreeable to treatment plan. Astrid Muse APRN.SHERIDAN documented in this encounter [facility] 02-21-2024 Note HNO ID: [id number] Author: AGUEDA SABILLON LPN Service: ? Author Type: LICENSED NURSE Type: Progress Notes Filed: 02/21/2024 11:34 Note Text: Patient presents for B-12 injection. Denies any problems at this time. Patient instructed on any SE of medication, verbalized understanding and agreed to proceed with treatment. Tolerated injection well. Agueda Sabillon LPN [facility] 02-21-2024 History of Presen t illness Narrative Patient presents for B-12 injection. Denies any problems at this time. Patient instructed on any SE of medication, verbalized understanding and agreed to proceed with treatment. Tolerated injection well. Agueda Sabillon LPN documented in this encounter [facility] 02-14-2024 Telephone encounter Note Prescription Refill Information The patient has been identified by name and date of : Yes Caregiver verified no other encounters exist for this prescription request: Yes Caregiver confirmed with patient/requestor that no other refills are due, in the near future, with this provider at this time: Yes The last office visit in the department: 02/02/24 Does the patient have a future office visit with this provider/department: Yes 03/15/24 Requested Prescriptions Pending Prescriptions Disp Refills levothyroxine (LEVOXYL) 50 mcg tablet 90 tablet 1 Sig: Take 1 tablet by mouth once daily. Take on empty stomach. For Thyroid Nikole Alexis LPN February 14, 2024 4:31 PM [facility] 02-14-2024 Miscellaneous Notes Prescription Refill Information The patient has been identified by name and date of : Yes Caregiver verified no other encounters exist for this prescription request: Yes Caregiver confirmed with patient/requestor that no other refills are due, in the near future, with this provider at this time: Yes The last office visit in the department: 02/02/24 Does the patient have a future office visit with this provider/department: Yes 03/15/24 Requested Prescriptions Pending Prescriptions Disp Refills levothyroxine (LEVOXYL) 50 mcg tablet 90 tablet 1 Sig: Take 1 tablet by mouth once daily. Take on empty stomach. For Thyroid Nikole Alexis LPN February 14, 2024 4:31 PM documented in this encounter [facility] 02-14-2024 Miscellaneous Notes Patient scheduled for nurse visit 02/21/24 to receive B-[address]. [address] order at this time. Agueda Sabillon LPN documented in this encounter [facility] 02-14-2024 Telephone encounter Note Patient scheduled for nurse visit 02/21/24 to receive B-[address] order at this time. Agueda Sabillon LPN [facility] 02-10-2024 Telephone encounter Note Pt called back and was transferred to rigging and controls aircraft mechanic. Gladis Vallecillo LPN [facility] 02-10-2024 Miscellaneous Notes Pt called back and was transferred to rigging and controls aircraft mechanic. Gladis Vallecillo LPN Pt called and is notified of providers results and instructions. Pt voices understanding. Pt will call back in to schedule appointment as her is out of the car and has their calendar. Sobia Quiñonez, ZOEY Thyroid US recommending aspiration/biopsy of thyroid nodule. Consult sent to general surgery to have this scheduled and completed. Thank you Astrid Muse APRN.SHERIDAN I reviewed hospital records. HgbA1c has improved to 7.1, Imaging reviewed and she needs to schedule already ordered thyroid US to further evaluated incidental finding of thyroid nodule. Slightly anemic while at hospital but probably from fluids. We will recheck this at a later date. current magnesium level normal. Thank you Astrid Muse APRN.SHERIDAN documented in this encounter [facility] 02-10-2024 Telephone encounter Note Pt called and is notified of providers results and instructions. Pt voices understanding. Pt will call back in to schedule appointment as her is out of the car and has their calendar. Sobia Quiñonez, RN [facility] 02-10-2024 Telephone encounter Note Thyroid US recommending aspiration/biopsy of thyroid nodule. Consult sent to general surgery to have this scheduled and completed. Thank you Astrid Muse APRN.CNP [facility] 02-09-2024 Telephone encounter Note I reviewed hospital records. HgbA1c has improved to 7.1, Imaging reviewed and she needs to schedule already ordered thyroid US to further evaluated incidental finding of thyroid nodule. Slightly anemic while at hospital but probably from fluids. We will recheck this at a later date. current magnesium level normal. Thank you Astrid Muse APRN.CNP [facility] 02-08-2024 History of Presen t illness Narrative Radiology Service Progress Note PATIENT NAME: Britney Canada DATE OF SERVICE: February 08, 2024 TIME: 1:35 PM PATIENT IDENTITY VERIFICATION COMPLETED USING TWO (2) IDENTIFIERS: Name and Date of confirmed by patient verbally. FALL SCREENING: Has the patient had 2 falls in the last year or 1 fall with injury or currently using an Ambulatory Assistive Device (Walker, Cane, Wheelchair, Crutches, etc.)? No PATIENT GENDER DATA: Female. status: : No status: NO. PATIENT RELEVANT IMPLANT DATA REVIEWED: Not Applicable PATIENT PRESENTS WITH AN IMPLANTABLE OR ATTACHED HUMAN RESOURCES MANAGER MANUFACTURING: No RADIOLOGY DEPARTMENT: Ultrasound PERIPHERAL IV DATA: Not applicable SIGNED BY: Clarissa Philip RDMS [facility] February 08, 2024 1:35 PM documented in this encounter [facility] 02-08-2024 Note HNO ID: [id number] Author: CLARISSA PHILIP RDMS Service: ? Author Type: Seismograph Recorder Type: Progress Notes Filed: 02/08/2024 13:36 Note Text: Radiology Service Progress Note PATIENT NAME: Britney Canada DATE OF SERVICE: February 08, 2024 TIME: 1:35 PM PATIENT IDENTITY VERIFICATION COMPLETED USING TWO (2) IDENTIFIERS: Name and Date of confirmed by patient verbally. FALL SCREENING: Has the patient had 2 falls in the last year or 1 fall with injury or currently using an Ambulatory Assistive Device (Walker, Cane, Wheelchair, Crutches, etc.)? No PATIENT GENDER DATA: Female. status: : No status: NO. PATIENT RELEVANT IMPLANT DATA REVIEWED: Not Applicable PATIENT PRESENTS WITH AN IMPLANTABLE OR ATTACHED HUMAN RESOURCES MANAGER MANUFACTURING: No RADIOLOGY DEPARTMENT: Ultrasound PERIPHERAL IV DATA: Not applicable SIGNED BY: Clarissa Philip RDMS [facility] February 08, 2024 1:35 PM [facility] 02-02-2024 Note HNO ID: [id number] Author: ASTRID MUSE APRN.FINISH CLEANER Service: ? Author Type: Nurse Practitioner Type: Progress Notes Filed: 02/02/2024 13:41 Note Text: CC: Patient presents with: Recheck: ER Follow up UTI HPI Britney Canada is a 78 year old female who presents today for Hospital follow-up. Patient's discharge instructions provided but no other records available. Facility: [facility] Date of visit: 01/19 - 01/20 Reason for visit: After a long trip in [place] she came home and started projectile vomiting for 30 min straight. 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 Incidentally found thyroid nodule recommending Ultrasound. Echocardiogram performed. Low magnesium - supplemented IV. Diagnosis: UTI Discharge: on cefdinir Current symptoms: Has finished her antibiotic and finished treatment 1 week ago. Denies further nausea or vomiting. Also denies fever, chills, abdominal pain, difficulty/pain urinating, blood in urine, dark/foul smelling urine, chest pain, shortness of breath, palpitations, edema, dizziness, syncope, weakness, headaches, cough, or wheezing. REVIEW OF SYSTEMS See HPI PAST MEDICAL HISTORY Diagnosis Date Abnormal mammogram, unspecified Diabetes mellitus without mention of complication PAST SURGICAL HISTORY Procedure Laterality Date CHOLECYSTECTOMY 1989 RPR UMBILICAL HRNA 5 YRS/> REDUCIBLE STEREOTACTIC CORE BIOPSY 10/18/08 RIGHT BREAST ALLERGIES Darvon [Propoxyphene Hcl] and Penicillins MEDICATIONS losartan (COZAAR) 50 mg tablet Take 1 tablet by mouth once daily. metFORMIN ER (GLUCOPHAGE XR) 500 mg 24 hr tablet Take 2 tablets by mouth two times a day with meals. empagliflozin (JARDIANCE) 25 mg tablet Take 1 tablet by mouth once daily. Take 1 tablet once daily in the morning clopidogrel (PLAVIX) 75 mg tablet Take 1 tablet by mouth once daily. Take 75 mg by mouth once daily. levothyroxine (LEVOXYL) 50 mcg tablet Take 1 tablet by mouth once daily. Take on empty stomach. For Thyroid atorvastatin (LIPITOR) 80 mg tablet TAKE 1 TABLET BY MOUTH ONCE DAILY AT BEDTIME FOR CHOLESTEROL terconazole vaginal cream (TERAZOL) 0.8 % vaginal cream Use 1 Applicator vaginally daily at bedtime. cyanocobalamin 1,000 mcg/mL Inject 1 mL intramuscularly once every month. blood sugar diagnostic (BLOOD GLUCOSE TEST) test strip Test blood sugar(s) 2 times daily. Dx: Type 2 DM - Uncontrolled E11.65 Insulin: No Lancets lancets Test blood sugar(s) two times times daily. Dx: Other DM Code E11.65 Insulin: No metoprolol tartrate, short acting, (LOPRESSOR) 25 mg tablet Take 25 mg by mouth twice daily. apixaban (ELIQUIS) 5 mg tab(s) Take by mouth twice daily. fluticasone (FLONASE) 50 mcg/actuation nasal spray Use 2 Sprays in each nostril once daily. FAMILY HISTORY Problem Relation Age of Onset Prostate Cancer Father Breast Cancer Mother 40 Coronary Artery Disease Mother pace maker Coronary Artery Disease Father triple bypass Social History Tobacco Use Smoking status: Never Smokeless tobacco: Never Substance Use Topics Alcohol use: Yes Comment: rarely Drug use: No PHYSICAL EXAM BP 128/72 Pulse (!) 56 Resp 16 Wt 83.9 kg (185 lb) SpO2 96% BMI 33.84 kg/m? General Appearance: well appearing, in no acute distress, alert Eyes: conjunctiva pink and moist, no icterus, sclera white, non-injected Lungs: Lungs clear to auscultation. No wheezing, rhonchi, rales. Heart: RRR without murmur, gallop, or rubs. No ectopy Abdomen: Abdomen soft, non-tender. Bowel sounds normal. No masses, organomegaly Depression Screening Never done Anxiety Screening Never done Urine Albumin:Creatinine Ratio due on 11/01/2020 Diabetic Foot Exam due on 11/21/2022 RSV Vaccine(1 - 1-dose 75+ series) due on 10/26/2024 LDL Cholesterol due on 04/27/2024 HbA1C due on 04/27/2024 Annual PCP Team Chronic Disease Visit due on 10/26/2024 BP Controlled (<130/80) due on 10/26/2024 Dilated Retinal Exam due on 12/01/2024 DTaP,Tdap,Td Vaccine(2 - Td or Tdap) due on 01/16/2030 Bone Density Screening Completed Influenza Vaccine Completed Advance Directive Discussion Completed Hepatitis C Screening Completed Shingrix Vaccine Completed Covid-19 Vaccine Completed Pneumococcal Vaccine: 65+ Completed Mammogram Screening Discontinued Colorectal Cancer Screening Discontinued DATA REVIEWED: requesting [facility] records to be fully reviewed. ASSESSMENT/PLAN: 1. History of recent hospitalization - ICD9: V13.9, ICD10: Z92.89 (primary diagnosis) For UTI resulting in vomiting and hypomagnesemia Need to get full imaging and lab results to review for further information. At this time will get thyroid US scheduled as noted on her instructions and recheck urine, magnesium and a BMP next week. May need further testing depending on review of records Follow up in 6 weeks 2. Urinary tract infection without hematuria, site unspecified - ICD9 (more content not included)... [facility] 02-02-2024 History of Presen t illness Narrative CC: Patient presents with: Recheck: ER Follow up UTI HPI Britney Canada is a 78 year old female who presents today for Hospital follow-up. Patient's discharge instructions provided but no other records available. Facility: [facility] Date of visit: 01/19 - 01/20 Reason for visit: After a long trip in [place] she came home and started projectile vomiting for 30 min straight. 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 Incidentally found thyroid nodule recommending Ultrasound. Echocardiogram performed. Low magnesium - supplemented IV. Diagnosis: UTI Discharge: on cefdinir Current symptoms: Has finished her antibiotic and finished treatment 1 week ago. Denies further nausea or vomiting. Also denies fever, chills, abdominal pain, difficulty/pain urinating, blood in urine, dark/foul smelling urine, chest pain, shortness of breath, palpitations, edema, dizziness, syncope, weakness, headaches, cough, or wheezing. REVIEW OF SYSTEMS See HPI PAST MEDICAL HISTORY Diagnosis Date Abnormal mammogram, unspecified Diabetes mellitus without mention of complication PAST SURGICAL HISTORY Procedure Laterality Date CHOLECYSTECTOMY 1989 RPR UMBILICAL HRNA 5 YRS/> REDUCIBLE STEREOTACTIC CORE BIOPSY 10/18/08 RIGHT BREAST ALLERGIES Darvon [Propoxyphene Hcl] and Penicillins MEDICATIONS losartan (COZAAR) 50 mg tablet Take 1 tablet by mouth once daily. metFORMIN ER (GLUCOPHAGE XR) 500 mg 24 hr tablet Take 2 tablets by mouth two times a day with meals. empagliflozin (JARDIANCE) 25 mg tablet Take 1 tablet by mouth once daily. Take 1 tablet once daily in the morning clopidogrel (PLAVIX) 75 mg tablet Take 1 tablet by mouth once daily. Take 75 mg by mouth once daily. levothyroxine (LEVOXYL) 50 mcg tablet Take 1 tablet by mouth once daily. Take on empty stomach. For Thyroid atorvastatin (LIPITOR) 80 mg tablet TAKE 1 TABLET BY MOUTH ONCE DAILY AT BEDTIME FOR CHOLESTEROL terconazole vaginal cream (TERAZOL) 0.8 % vaginal cream Use 1 Applicator vaginally daily at bedtime. cyanocobalamin 1,000 mcg/mL Inject 1 mL intramuscularly once every month. blood sugar diagnostic (BLOOD GLUCOSE TEST) test strip Test blood sugar(s) 2 times daily. Dx: Type 2 DM - Uncontrolled E11.65 Insulin: No Lancets lancets Test blood sugar(s) two times times daily. Dx: Other DM Code E11.65 Insulin: No metoprolol tartrate, short acting, (LOPRESSOR) 25 mg tablet Take 25 mg by mouth twice daily. apixaban (ELIQUIS) 5 mg tab(s) Take by mouth twice daily. fluticasone (FLONASE) 50 mcg/actuation nasal spray Use 2 Sprays in each nostril once daily. FAMILY HISTORY Problem Relation Age of Onset Prostate Cancer Father Breast Cancer Mother 40 Coronary Artery Disease Mother pace maker Coronary Artery Disease Father triple bypass Social History Tobacco Use Smoking status: Never Smokeless tobacco: Never Substance Use Topics Alcohol use: Yes Comment: rarely Drug use: No PHYSICAL EXAM BP 128/72 Pulse (!) 56 Resp 16 Wt 83.9 kg (185 lb) SpO2 96% BMI 33.84 kg/m General Appearance: well appearing, in no acute distress, alert Eyes: conjunctiva pink and moist, no icterus, sclera white, non-injected Lungs: Lungs clear to auscultation. No wheezing, rhonchi, rales. Heart: RRR without murmur, gallop, or rubs. No ectopy Abdomen: Abdomen soft, non-tender. Bowel sounds normal. No masses, organomegaly Depression Screening Never done Anxiety Screening Never done Urine Albumin:Creatinine Ratio due on 11/01/2020 Diabetic Foot Exam due on 11/21/2022 RSV Vaccine(1 - 1-dose 75+ series) due on 10/26/2024 LDL Cholesterol due on 04/27/2024 HbA1C due on 04/27/2024 Annual PCP Team Chronic Disease Visit due on 10/26/2024 BP Controlled (<130/80) due on 10/26/2024 Dilated Retinal Exam due on 12/01/2024 DTaP,Tdap,Td Vaccine(2 - Td or Tdap) due on 01/16/2030 Bone Density Screening Completed Influenza Vaccine Completed Advance Directive Discussion Completed Hepatitis C Screening Completed Shingrix Vaccine Completed Covid-19 Vaccine Completed Pneumococcal Vaccine: 65+ Completed Mammogram Screening Discontinued Colorectal Cancer Screening Discontinued DATA REVIEWED: requesting [facility] records to be fully reviewed. ASSESSMENT/PLAN: 1. History of recent hospitalization - ICD9: V13.9, ICD10: Z92.89 (primary diagnosis) For UTI resulting in vomiting and hypomagnesemia Need to get full imaging and lab results to review for further information. At this time will get thyroid US scheduled as noted on her instructions and recheck urine, magnesium and a BMP next week. May need further testing depending on review of records Follow up in 6 weeks 2. Urinary tract infection without hematuria, site unspecified - ICD9: 599.0, ICD10: N39.0 Asymptomatic - will recheck next week. - URINALYSIS WITH MICROSCOPIC, REFLEX CULTURE - BASIC METABOLIC PANEL - MAGNESIUM 3. Hypomagnesemia - ICD9: 275.2, ICD10: E83.42 Not on current supplement but per pt received IV supplementation in hospital stay - URINALYSIS WITH MICROSCOPIC, REFLEX CULTURE - BASIC METABOLIC PANEL - MAGNESIUM 4. Thyroid nodule - ICD9: 241.0, ICD10: E04.1 Incidentally noted on either CT or MRI of brain, requesting full records. - US THYROID/PARATHYROID Prescription instructions reviewed with patient as applicable. Potential red flag symptoms discussed with the patient. Reviewed appropriate action plan to take if red flag symptoms occur. Patient agreeable to treatment plan. Astrid Muse APRN.SHERIDAN documented in this encounter [facility] 01-26-2024 Note . MICRO - Microbiology PROCEDURE: Blood Culture (bacterial) [*1] SOURCE: Blood BODY SITE: Arm L COLLECTED DATE/TIME: 01/21/2024 08:39 EST RECEIVED DATE/TIME: 01/21/2024 15:06 EST START DATE/TIME: 01/21/2024 15:06 EST FREE TEXT SOURCE: FINAL REPORTS Final Report [] Verified Date/Time/Personnel: 01/26/2024 15:59 EST Blood Culture: No Growth at 5 days. PRELIMINARY REPORTS Preliminary Report [] Verified Date/Time/Personnel: 01/21/2024 15:59 EST Culture has been received in lab and is no growth to date. Routine cultures are held for 5 days. Performing Locations *1: This test was performed at: [facility], [address] [place] [address], [facility] , [facility] 01-26-2024 Note . MICRO - Microbiology PROCEDURE: Blood Culture (bacterial) [*1] SOURCE: Blood BODY SITE: Arm R COLLECTED DATE/TIME: 01/21/2024 08:39 EST RECEIVED DATE/TIME: 01/21/2024 15:06 EST START DATE/TIME: 01/21/2024 15:06 EST FREE TEXT SOURCE: FINAL REPORTS Final Report [] Verified Date/Time/Personnel: 01/26/2024 15:59 EST Blood Culture: No Growth at 5 days. PRELIMINARY REPORTS Preliminary Report [] Verified Date/Time/Personnel: 01/21/2024 15:59 EST Culture has been received in lab and is no growth to date. Routine cultures are held for 5 days. Performing Locations *1: This test was performed at: [facility], [address] [place] [address], [id number] , [facility] 01-24-2024 Note HNO ID: [id number] Author: AGUEDA SABILLON LPN Service: ? Author Type: LICENSED NURSE Type: Progress Notes Filed: 01/24/2024 13:18 Note Text: Patient presents for B-12 injection. Denies any problems at this time. Patient instructed on any SE of medication, verbalized understanding and agreed to proceed with treatment. Tolerated injection well. Agueda Sabillon LPN [facility] 01-24-2024 History of Presen t illness Narrative Patient presents for B-12 injection. Denies any problems at this time. Patient instructed on any SE of medication, verbalized understanding and agreed to proceed with treatment. Tolerated injection well. Agueda Sabillon LPN documented in this encounter [facility] 01-22-2024 Note . MICRO - Microbiology PROCEDURE: Urine Culture [O1 *1] SOURCE: Urine BODY SITE: COLLECTED DATE/TIME: 01/21/2024 00:26 EST RECEIVED DATE/TIME: 01/21/2024 15:16 EST START DATE/TIME: 01/21/2024 15:16 EST FREE TEXT SOURCE: FINAL REPORTS Final Report [] Verified Date/Time/Personnel: 01/22/2024 11:09 EST >100,000 cfu/ml Multiple bacterial morphotypes present. Probable Contamination. Suggest recollection if clinically indicated. Order Comments O1: Urine Culture Added by Discern Performing Locations *1: This test was performed at: [facility], [address] [place] [address], [id number] , [facility] 01-21-2024 Hospital Discharg e instructions Patient Education 01/21/2024 14:15:20 Urinary Tract Infection, Adult, Ackn-[id number] Urinary Tract Infection, Adult A urinary tract infection (UTI) is an infection of any part of the urinary tract. The urinary tract includes: The kidneys. The ureters. The bladder. The urethra. These organs make, store, and get rid of pee (urine) in the body. What are the causes? This is caused by germs (bacteria) in your genital area. These germs grow and cause swelling (inflammation) of your urinary tract. What increases the risk? You are more likely to develop this condition if: You have a small, thin tube (catheter) to drain pee. You cannot control when you pee or poop (incontinence). You are female, and: ?You use these methods to prevent : ?A medicine that kills sperm (spermicide). ?A device that blocks sperm (diaphragm). ?You have low levels of a female hormone (estrogen). ?You are . You have genes that add to your risk. You are sexually active. You take antibiotic medicines. You have trouble peeing because of: ?A prostate that is bigger than normal, if you are male. ?A blockage in the part of your body that drains pee from the bladder (urethra). ?A kidney stone. ?A nerve condition that affects your bladder (neurogenic bladder). ?Not getting enough to drink. ?Not peeing often enough. You have other conditions, such as: ?Diabetes. ?A weak disease-fighting system (immune system). ?Sickle cell disease. ?Gout. ?Injury of the spine. What are the signs or symptoms? Symptoms of this condition include: Needing to pee right away (urgently). Peeing often. Peeing small amounts often. Pain or burning when peeing. Blood in the pee. Pee that smells bad or not like normal. Trouble peeing. Pee that is cloudy. Fluid coming from the vagina, if you are female. Pain in the belly or lower back. Other symptoms include: Throwing up (vomiting). No urge to eat. Feeling mixed up (confused). Being tired and grouchy (irritable). A fever. Watery poop (diarrhea). How is this treated? This condition may be treated with: Antibiotic medicine. Other medicines. Drinking enough water. Follow these instructions at home: Medicines Take ajfe-bxx-rhvvqcq and prescription medicines only as told by your doctor. If you were prescribed an antibiotic medicine, take it as told by your doctor. Do not stop taking it even if you start to feel better. General instructions Make sure you: ?Pee until your bladder is empty. ?Do not hold pee for a long time. ?Empty your bladder after sex. ?Wipe from front to back after pooping if you are a female. Use each tissue one time when you wipe. Drink enough fluid to keep your pee pale yellow. Keep all follow-up visits as told by your doctor. This is important. Contact a doctor if: You do not get better after 1 2 days. Your symptoms go away and then come back. Get help right away if: You have very bad back pain. You have very bad pain in your lower belly. You have a fever. You are sick to your stomach (nauseous). You are throwing up. Summary A urinary tract infection (UTI) is an infection of any part of the urinary tract. This condition is caused by germs in your genital area. There are many risk factors for a UTI. These include having a small, thin tube to drain pee and not being able to control when you pee or poop. Treatment includes antibiotic medicines for germs. Drink enough fluid to keep your pee pale yellow. This information is not intended to replace advice given to you by your health care provider. Make sure you discuss any questions you have with your health care provider. Document Released: 08/10/2008 Document Revised: 02/09/2019 Document Reviewed: 09/01/2018 [employer] Patient Education 2020 [employer]. 01/21/2024 14:15:14 Nausea and Vomiting, Adult, Rgje-wu-Rtmj Nausea and Vomiting, Adult Nausea is feeling sick to your stomach or feeling that you are about to throw up (vomit). Vomiting is when food in your stomach is thrown up and out of the mouth. Throwing up can make you feel weak. It can also make you lose too much water in your body (get dehydrated). If you lose too much water in your body, you may: Feel tired. Feel thirsty. Have a dry mouth. Have cracked lips. Go pee (urinate) less often. Older adults and people with other diseases or a weak body defense system (immune system) are at higher risk for losing too much water in the body. If you feel sick to your stomach and you throw up, it is important to follow instructions from your doctor about how to take care of yourself. Follow these instructions at home: Watch your symptoms for any changes. Tell your doctor about them. Follow these instructions to care for yourself at home. Eating and drinking Take an ORS (oral rehydration solution). This is a drink that is sold at pharmacies and stores. Drink clear fluids in small amounts as you are able, such as: ?Water. ?Ice chips. ?Fruit juice that has water added (diluted fruit juice). ?Low-calorie sports drinks. Eat bland, xieq-oq-mxvnry foods in small amounts as you are able, such as: ?Bananas. ?Applesauce. ?Rice. ?Low-fat (lean) meats. ?[place]. ?Crackers. Avoid drinking fluids that have a lot of sugar or caffeine in them. This includes energy drinks, sports drinks, and soda. Avoid alcohol. Avoid spicy or fatty foods. General instructions Take cisw-riv-mjziyvh and prescription medicines only as told by your doctor. Drink enough fluid to keep your pee (urine) pale yellow. Wash your hands often with soap and water. If you cannot use soap and water, use hand expressive therapist. Make sure that all people in your home wash their hands well and often. Rest at home while you get better. Watch your condition for any changes. Take slow and deep breaths when you feel sick to your stomach. Keep all follow-up visits as told by your doctor. This is important. Contact a doctor if: Your symptoms get worse. You have new symptoms. You have a fever. You cannot drink fluids without throwing up. You feel sick to your stomach for more than 2 days. You feel light-headed or dizzy. You have a headache. You have muscle cramps. You have a rash. You have pain while peeing. Get help right away if: You have pain in your chest, neck, arm, or jaw. You feel very weak or you pass out (faint). You throw up again and again. You have throw up that is bright red or looks like black coffee grounds. You have bloody or black poop (stools) or poop that looks like tar. You have a very bad headache, a stiff neck, or both. You have very bad pain, cramping, or bloating in your belly (abdomen). You have trouble breathing. You are breathing very quickly. Your heart is beating very quickly. Your skin feels cold and clammy. You feel confused. You have signs of losing too much water in your body, such as: ?Dark pee, very little pee, or no pee. ?Cracked lips. ?Dry mouth. ?Sunken eyes. ?Sleepiness. ?Weakness. These symptoms may be an emergency. Do not wait to see if the symptoms will go away. Get medical help right away. Call your local emergency services (911 in the [place] Do not drive yourself to the hospital. Summary Nausea is feeling sick to your stomach or feeling that you are about to throw up (vomit). Vomiting is when food in your stomach is thrown up and out of the mouth. Follow instructions from your doctor about eating and drinking to keep from losing too much water in your body. Take roxv-fyn-wussndz and prescription medicines only as told by your doctor. Contact your doctor if your symptoms get worse or you have new symptoms. Keep all follow-up visits as told by your doctor. This is important. This information is not intended to replace advice given to you by your health care provider. Make sure you discuss any questions you have with your health care provider. Document Released: 08/10/2008 Document Revised: 06/16/2019 Document Reviewed: 08/02/2018 [employer] Patient Education 2020 [employer]. Follow Up Care 01/20/2024 20:27:43 With:Follow up with primary care provider Address: When:3-5 days Comments:Please call to schedule your post-hospital follow-up appointment. [facility] 01-21-2024 Note Discharge Instructions Thank you for allowing [facility] to assist you with your healthcare needs. The following is important discharge information regarding your hospital visit. Your Care Team [facility] Your Diagnosis Brain TIA Hypertension Nausea and vomiting Type 2 diabetes mellitus Urinary tract infection What to do next Instructions From Your Doctor You were admitted due to dizziness, nausea and vomiting following a trip. The ED physician was concerned about a possible stroke so you were admitted for stroke workup. MRI of the brain revealed your previous stroke but nothing new. Echocardiogram was done but, as we discussed, will not be read until later today. If there are any abnormalities on it, we will call you in the morning with the results and our recommendation. Because the stroke was ruled out, I believe that your symptoms were likely due to a urinary tract infection. Your urine culture is not back yet but should be back tomorrow or Wednesday. If you require a different antibiotic, we will contact you to let you know. We will send in a prescription for Cefdinir 300 mg oral twice daily for 5 days. Please be sure to take all doses to make sure your infection clears up. Follow-up with your PCP in the next week or so for post-hospitalization follow-up. If you have any new or worsening symptoms, please return to the ED. You have a 1.6 cm left thyroid nodule found on CT. Recommend nonemergent ultrasound to better evaluate. Follow Up Appointments Follow Up with Follow up with primary care provider When:Within 3-5 days Additional Information: Please call to schedule your post-hospital follow-up appointment. The Following Activity and Diet Have Been Ordered for You Discharge Activity - Ordered -- Resume your pre-hospitalization activity, 01/21/24 14:23:00 EST Discharge Diet - Ordered -- No changes were made to your diet during your hospital stay. Please resume your pre hospitalization diet on discharge., 01/21/24 14:23:00 EST Allergies NKA Medications Please ask your primary doctor or pharmacist before taking any other medication not listed, including over the counter drugs, herbal medications, vitamins and or supplements as they may interact with your home medications. What How Much When Instructions Last Dose New cefdinir (cefdinir 300 mg oral capsule) 1 cap by mouth Every 12 hours Duration: 5 Days Pickup at [facility] Unchanged apixaban (Eliquis 5 mg oral tablet) 1 tab(s) by mouth Two (2) times a day Unchanged atorvastatin (atorvastatin 80 mg oral tablet) 1 tab(s) by mouth Once a day Unchanged clopidogrel (clopidogrel 75 mg oral tablet) Unchanged empagliflozin (Jardiance 25 mg oral tablet) 1 tab(s) by mouth Once a day (in the morning) Unchanged levothyroxine (levothyroxine 50 mcg (0.05 mg) oral tablet) 1 tab(s) by mouth Once a day Unchanged losartan (losartan 50 mg oral tablet) TAKE 1 TABLET BY MOUTH ONCE DAILY Unchanged metFORMIN (MetFORMIN (Eqv-Glucophage XR) 500 mg oral tablet, EXTENDED RELEASE) TAKE 2 TABLETS BY MOUTH TWICE DAILY WITH MEALS Unchanged metoprolol (Lopressor 25mg--USE metoprolol tartrate 25 mg oral tablet) TAKE 1 TABLET BY MOUTH TWICE DAILY Pharmacy Information [id number] [id number] [place], [place] [id number] [phone] Please take this list to your next doctor s visit. Bring all medications you take, including over the counter medications, herbals and other supplements with you to your doctor s visit. Patients and families are reminded to discard old lists and to update any records with all medication providers or retail pharmacies. Education Materials Urinary Tract Infection, Adult A urinary tract infection (UTI) is an infection of any part of the urinary tract. The urinary tract includes: The kidneys. The ureters. The bladder. The urethra. These organs make, store, and get rid of pee (urine) in the body. What are the causes? This is caused by germs (bacteria) in your genital area. These germs grow and cause swelling (inflammation) of your urinary tract. What increases the risk? You are more likely to develop this condition if: You have a small, thin tube (catheter) to drain pee. You cannot control when you pee or poop (incontinence). You are female, and: ? You use these methods to prevent : ? A medicine that kills sperm (spermicide). ? A device that blocks sperm (diaphragm). ? You have low levels of a female hormone (estrogen). ? You are . You have genes that add to your risk. You are sexually active. You take antibiotic medicines. You have trouble peeing because of: ? A prostate that is bigger than normal, if you are male. ? A blockage in the part of your body that drains pee from the bladder (urethra). ? A kidney stone. ? A nerve condition that affects your bladder (neurogenic bladder). ? Not getting enough to drink. ? Not peeing often enough. You have other conditions, such as: ? Diabetes. ? A weak disease-fighting system (immune system). ? Sickle cell disease. ? Gout. ? Injury of the spine. What are the signs or symptoms? Symptoms of this condition include: Needing to pee right away (urgently). Peeing often. Peeing small amounts often. Pain or burning when peeing. Blood in the pee. Pee that smells bad or not like normal. Trouble peeing. Pee that is cloudy. Fluid coming from the vagina, if you are female. Pain in the belly or lower back. Other symptoms include: Throwing up (vomiting). No urge to eat. Feeling mixed up (confused). Being tired and grouchy (irritable). A fever. Watery poop (diarrhea). How is this treated? This condition may be treated with: Antibiotic medicine. Other medicines. Drinking enough water. Follow these instructions at home: Medicines Take gdwm-fiw-qjtjbcr and prescription medicines only as told by your doctor. If you were prescribed an antibiotic medicine, take it as told by your doctor. Do not stop taking it even if you start to feel better. General instructions Make sure you: ? Pee until your bladder is empty. ? Do not hold pee for a long time. ? Empty your bladder after sex. ? Wipe from front to back after pooping if you are a female. Use each tissue one time when you wipe. Drink enough fluid to keep your pee pale yellow. Keep all follow-up visits as told by your doctor. This is important. Contact a doctor if: You do not get better after 1 2 days. Your symptoms go away and then come back. Get help right away if: You have very bad back pain. You have very bad pain in your lower belly. You have a fever. You are sick to your stomach (nauseous). You are throwing up. Summary A urinary tract infection (UTI) is an infection of any part of the urinary tract. This condition is caused by germs in your genital area. There are many risk factors for a UTI. These include having a small, thin tube to drain pee and not being able to control when you pee or poop. Treatment includes antibiotic medicines for germs. Drink enough fluid to keep your pee pale yellow. This information is not intended to replace advice given to you by your health care provider. Make sure you discuss any questions you have with your health care provider. Document Released: 08/10/2008 Document Revised: 02/09/2019 Document Reviewed: 09/01/2018 [employer] Patient Education 2020 [employer]. Nausea and Vomiting, Adult Nausea is feeling sick to your stomach or feeling that you are about to throw up (vomit). Vomiting is when food in your stomach is thrown up and out of the mouth. Throwing up can make you feel weak. It can also make you lose too much water in your body (get dehydrated). If you lose too much water in your body, you may: Feel tired. Feel thirsty. Have a dry mouth. Have cracked lips. Go pee (urinate) less often. Older adults and people with other diseases or a weak body defense system (immune system) are at higher risk for losing too much water in the body. If you feel sick to your stomach and you throw up, it is important to follow instructions from your doctor about how to take care of yourself. Follow these instructions at home: Watch your symptoms for any changes. Tell your doctor about them. Follow these instructions to care for yourself at home. Eating and drinking Take an ORS (oral rehydration solution). This is a drink that is sold at pharmacies and stores. Drink clear fluids in small amounts as you are able, such as: ? Water. ? Ice chips. ? Fruit juice that has water added (diluted fruit juice). ? Low-calorie sports drinks. Eat bland, ghbz-rh-otqlwa foods in small amounts as you are able, such as: ? Bananas. ? Applesauce. ? Rice. ? Low-fat (lean) meats. ? [place]. ? Crackers. Avoid drinking fluids that have a lot of sugar or caffeine in them. This includes energy drinks, sports drinks, and soda. Avoid alcohol. Avoid spicy or fatty foods. General instructions Take rmhe-hgq-ymwktlc and prescription medicines only as told by your doctor. Drink enough fluid to keep your pee (urine) pale yellow. Wash your hands often with soap and water. If you cannot use soap and water, use hand expressive therapist. Make sure that all people in your home wash their hands well and often. Rest at home while you get better. Watch your condition for any changes. Take slow and deep breaths when you feel sick to your stomach. Keep all follow-up visits as told by your doctor. This is important. Contact a doctor if: Your symptoms get worse. You have new symptoms. You have a fever. You cannot drink fluids without throwing up. You feel sick to your stomach for more than 2 days. You feel light-headed or dizzy. You have a headache. You have muscle cramps. You have a rash. You have pain while peeing. Get help right away if: You have pain in your chest, neck, arm, or jaw. You feel very weak or you pass out (faint). You throw up again and again. You have throw up that is bright red or looks like black coffee grounds. You have bloody or black poop (stools) or poop that looks like tar. You have a very bad headache, a stiff neck, or both. You have very bad pain, cramping, or bloating in your belly (abdomen). You have trouble breathing. You are breathing very quickly. Your heart is beating very quickly. Your skin feels cold and clammy. You feel confused. You have signs of losing too much water in your body, such as: ? Dark pee, very little pee, or no pee. ? Cracked lips. ? Dry mouth. ? Sunken eyes. ? Sleepiness. ? Weakness. These symptoms may be an emergency. Do not wait to see if the symptoms will go away. Get medical help right away. Call your local emergency services (911 in the [place] Do not drive yourself to the hospital. Summary Nausea is feeling sick to your stomach or feeling that you are about to throw up (vomit). Vomiting is when food in your stomach is thrown up and out of the mouth. Follow instructions from your doctor about eating and drinking to keep from losing too much water in your body. Take sumi-xin-hswzihd and prescription medicines only as told by your doctor. Contact your doctor if your symptoms get worse or you have new symptoms. Keep all follow-up visits as told by your doctor. This is important. This information is not intended to replace advice given to you by your health care provider. Make sure you discuss any questions you have with your health care provider. Document Released: 08/10/2008 Document Revised: 06/16/2019 Document Reviewed: 08/02/2018 [employer] Patient Education 2020 [employer] Additional Information VACCINATE! IT SAVES LIVES! Members of the community who have not yet received the COVID-19 vaccine and would like to receive it can visit one of [facility] vaccine clinics. There are many vaccine clinic locations within the [facility]. For locations and available times, please visit https://gettheshot.coronavirus.[place].gov/. It is important to note that some COVID mobile vaccine clinics are held outdoors and may be canceled in rainy or stormy conditions. To learn more about pediatric vaccinations (ages 5-11), we invite you to visit the [facility] webpage. https://www.BuyMyHomes.org/p ages/0305-Xkqmw-Zjpsskbogwc-Freq qkjpfg-Sdlvv-Kgfbarvle.html To learn more about the COVID-19 vaccine, we invite you to visit the CDC website for a list of frequently asked questions.https://www.cdc.gov/co ronavirus/2019-ncov/vaccines/faq .html [employer] Patient Portal Access Instructions: Stay connected with your healthcare team and access your personal medical information anytime with the [employer] Patient Portal. Please follow the directions below to create your [employer] account: 1.Access the email account you provided upon registration to the hospital/physician office.2.Look for an invitation email from [facility].3.Open the email and access the invitation link: Accept Invitation to [employer].4.Fill in the required pillai to create your account. To access your account, visit [employer]. Click the blue button labeled Access Patient Portal and then log in with the username and password that you created in the steps above. You will be able to view your test results, lab results, a summary of your visits, upcoming appointments and more. There is also a convenient messaging option where you can send secure messages to your provider. In addition, you will have the ability to download any documents or summaries to your computer and/or send the information securely to a physician. Remember that your healthcare information is confidential, so carefully consider who you will allow to register on the [employer] Patient Portal for access to your information. You can also access the [employer] Patient Portal on the [employer] tasia. Simply click on Patient Portal and then log into your account. If you would like to receive a full copy of your medical records, please contact the [facility] Medical Records Department by calling [phone], Wednesday through Wednesday between 8 a.m. and 4:30 p.m. HOW TO SAFELY DISPOSE OF PRESCRIPTION MEDICATIONS Please use one of the following methods to safely dispose of your unused medications. 1.Use a drug disposal kit: the drug disposal pouch allows you to safely discard your old and unused drugs. Ask your nurse to give you one when you are discharged.2.Visit a local take-back location: Many local pharmacies and police departments have programs that collect old and unwanted prescription drugs. Call your local pharmacy or go to http://Adviesmanager.nl.Mercantila/3S2Tz6g to find one close to you.3.Make use of household items: Use cat litter or old coffee grounds to dispose medications if other options are not available. Mix your drugs with these household products, seal them in an airtight container and throw it into the garbage. Call [facility]: [phone] to be sure your drugs can be disposed of in this way. Some medicines may require a different approach.4.Never flush your medications down the toilet. IF YOU HAVE BEEN PRESCRIBED AN OPIOID FOR PAIN If you have been prescribed an opioid (such as hydrocodone, oxycodone or morphine), it is critical to understand the possible side effects and risks of opioid pain medications. Even when taken as directed, opioids can have several side effects including: Tolerance, meaning you might need to take more of a medication for the same pain relief. Nausea, vomiting and/or constipation. Sleepiness, dizziness, dry mouth, confusion, depression or itching. Physical dependence, meaning you have withdrawal symptoms when a medication is stopped, can develop within a few days. KNOW YOUR RESPONSIBILITIES It is important to know exactly how much and how often to take the opioid pain medications you are prescribed. Never take opioids in higher amounts or more often than prescribed. Do not combine opioids with alcohol or other drugs that cause drowsiness, such as benzodiazepines, also known as benzos, including diazepam and alprazolam, muscle relaxants or sleep aids. Never sell or share prescription opioids. This is illegal. Store opioids in a secure place and out of reach of others (including children, family, friends and visitors). The last page of this document has been signed and retained as a CHART COPY. Signatures Patient Education Materials Urinary Tract Infection, Adult, Ucoi-sn-Epbp Nausea and Vomiting, Adult, Ocfm-js-Estf Medication Leaflets My discharge plan and instructions have been reviewed and explained to me and I,[place] understand my current condition and have read and understand these discharge instructions. I have received a written copy of the plan/instructions. If I have questions, I am aware that I should contact my doctor. Patient/Associate Buyer Signature: Date/Time: Relationship to Patient: Witness Name/Signature: Date/Time: [facility] 01-21-2024 Evaluation + Plan note Extrac rebeca from: Title:History and Physical Author:BRISEYDA HALL APRN-FINISH CLEANER Date:01/21/24 1. Brain TIA Acute, new onset of dizziness, nausea and vomiting. Send for MRI of the brain and echocardiogram with bubble study. Consult placed to PT and OT to evaluate and treat. Check A1c and lipid profile in the am. 2. Urinary tract infection Acute, new onset. Continue Ceftriaxone 1 gram IV daily pending results of urine and blood cultures. 3. Nausea and vomiting Acute, secondary to dizziness. Continue Zofran IV PRN. 4. Type 2 diabetes mellitus Chronic. ADA diet. Blood glucose goal of 180 or less and avoid hypoglycemia. 5. Hypertension Chronic. Continue current antihypertensives. SBP goal of 140 or less. DVT prophylaxis with Eliquis. Code status: Full Code. Labs, diagnostic test and progress notes reviewed as noted in HPI. Plan of care discussed with patient. All questions answered. Patient verbalizes understanding and is agreeable with plan of care. This case was discussed with collaborating physician, Dr. Dex Toussaint. 76 minutes spent reviewing past diagnostic tests, reviewing lab results, vital sign trends, medical history, reviewing medications and ordering home medications, examining patient, discussed plan of care with care team, collaborating with physician, and documenting in chart. Diagnostic Tests Pending * Urine Culture 01/21/24 [facility] 11-15-2024 Note* Exam Date Time Procedure Performing Provider Status 01/21/24 12:37 PM Echocardiogram, Adul t with Bubble Study- Auth (Verified) [facility] 11-15-2024 Note ORIGINAL EXAMINATION: MRI OF THE BRAIN WITHOUT PRLNGNFW24/15/2024 11:27 am MR BRAIN W/O CONTRAST TECHNIQUE: Multiplanar multisequence MRI of the brain was performed without the administration of intravenous contrast. Sagittal T1, axial FLAIR, T2 and diffusion-weighted images of the brain with ADC maps. COMPARISON: 01/20/2024 CT head noncontrast and angiography HISTORY: ORDERING SYSTEM PROVIDED HISTORY: Reason for Exam: stroke/ataxia FINDINGS: Diffusion imaging shows no hyperacute, acute, or early subacute infarction. Scattered FLAIR hyperintensities in the cerebral white matter are nonspecific but statistically most consistent with mild chronic microvascular angiopathy. Posterior aspect right occipital lobe, small bilateral right greater than left posterior cerebellum areas of encephalomalacia. Partially empty sella. Bilateral globus pallidus calcifications. There is no mass or mass-effect. There is mild cerebral volume loss with commensurate ventricular and sulcal enlargement. There are normal signal voids in the larger intracranial vessels. Paranasal sinuses are clear. The mastoid air cells are clear. The marrow signal pattern is within normal limits. 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 No evidence of hyperacute, acute, or early subacute infarction Mild chronic microvascular angiopathy with Mild age related brain parenchymal volume loss. I have personally reviewed the images of this examination and agree with the resident's findings and interpretation. Interpreted by: Bulmrao Bettencourt Preliminary Report By: Mack Jovel Electronically signed By Bulmaro Bettencourt Dictated Date: 01/21/2024 11:32:46 AM Prelim Date: 01/21/2024 11:45:49 AM Sign Date: 01/21/2024 11:45:49 AM Ordering Provider: JUNE [facility]11-15-2024 Note Date of Service 01/21/2024 Chief Complaint patient states she is having nausea and vomiting that began after supper this evening. pt also endorses dizziness. pt states she just got back from a cruise today History of Present Illness Patient is a 78-year-old female, who follows with Astrid Muse CNP with a past medical history significant for hypertension, hyperlipidemia, CVA and type 2 diabetes, presented to [facility] emergency department with the chief complaint of nausea and vomiting. Patient states that she started to feel unwell on Wednesday morning about 0700. Patient adds that she has been feeling dizzy lately but denies a room spinning sensation. Patient states that she just returned from a cruise to [facility] and returned home yesterday afternoon. The dizziness and nausea/vomiting worsened while patient was eating dinner. Patient has a history of previous strokes and adds that she missed a number of her medications on Wednesday due to a long day of travelling. Patient denies any fever, chills, cough,shortness of breath, chest pain, abdominal pain or dysuria. In the emergency department, chest x-ray revealed no acute process. CT of the head revealed multiple foci of macias-white interface loss including within the medial right occipital lobe, as well as bilateral cerebellar hemispheres, likely of differing ages. 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 CTA of the head/neck revealed atherosclerotic changes without evidence of large vessel occlusion or flow-limiting stenosis; incidental 1.6 cm left thyroid lobe nodule. White blood cell count 17.4. CBC otherwise unremarkable. BMP significant for glucose 191. Troponin negative. Lipase negative. Urinalysis significant for glucose greater than 1000, positive nitrite, small leukocyte esterace, urine RBC 0-5, urine WBC loaded and 2+bacteria. Urine and blood cultures obtained and pending. Patient was administered 1 liter of NS in the ED. The case was discussed with the ED physician who recommended admission for stroke work-up. Patient was transferred to telemetry for observation. Patient will be sent for MRI of the brain and ec hocardiogram with bubble study. We will check A1c and lipid profile in the am. Consult placed to PTand OT to evaluate and treat. Repeat CBC and BMP in the am. Patient seen and evaluated this morning while resting in bed. She states that she is feeling much better this morning. She reports that she had a lot of nausea and vomiting yesterday. She has been upto the bathroom and denies any dizziness this morning. Physical exam was unremarkable. Discussed plan of care with patient and she is agreeable to the same. All questions answered. Review of Systems Review of Systems: Reviewed in detail, including general health, HEENT, cardiovascular, respiratory, gastrointestinal, genitourinary, endocrine, musculoskeletal, neurologic, vascular, skin, and psychiatric. All are negative except for those listed in the History of Present Illness. Physical Exam Vitals and Measurements T: 36.6 C (Oral) TMIN: 36.4 C (Oral) TMAX: 36.6 C (Oral) HR: 77 RR: 16 BP: 105/43 SpO2: 89% HT: 157.5 cm WT: 82.5 kg BMI: 33.26 Weight Dosing Weight: 82.5 kg (01/21/24) General: No acute distress. Patient is alert, chronically ill-appearing. Skin: No rash. Skin is warm, dry and intact. HEENT: Head is normocephalic, atraumatic. Pupils are equal, round and reactive. Neck: Supple. No lymphadenopathy, thyromegaly. Lungs: Bilaterally clear but diminished without crepitation or wheeze. Unlabored. Heart: Heart is regular rhythm, S1, S2. No murmurs, gallops or rubs. Abdomen: Abdomen is soft, nontender. Bowels sounds present in all quadrants. Extremities: No clubbing, cyanosis, or edema. Peripheral pulses palpable. No calf tenderness. Neurological: Patient is awake and alert to person, place and time. Following simple commands, moving all extremities. Lab Results 01/19 21:41 Glucose Level: 191 H Sodium Level: 143 Potassium Level: 4.0 BUN: 14 Creatinine Lvl (s): 0.75 01/19 21:14 WBC: 17.5 H Hgb: 12.1 Hct: 38.3 Platelet: 465 H Neutrophil %: 92.3 H Imaging Results and Diagnostics CT Angiography Neck w/ Contrast Result Date: January 20, 2024 Verified By: ADONIS CHRISTIE DO CLINICAL STATEMENT: IMPRESSION: 1. Atherosclerotic changes without evidence of large vessel occlusion or flow-limiting stenosis. 2. Incidental 1.6 cm left thyroid lobe nodule. Follow-up with nonemergent ultrasound is recommended if not previously performed. CT Angiography Head w/ Contrast Result Date: January 20, 2024 Verified By: ADONIS CHRISTIE DO CLINICAL STATEMENT: IMPRESSION: 1. Atherosclerotic changes without evidence of large vessel occlusion or flow-limiting stenosis. 2. Incidental 1.6 cm left thyroid lobe nodule. Follow-up with nonemergent ultrasound is recommended if not previously performed. CT Head or Brain w/o Contrast Result Date: January 20, 2024 Verified By: ADONIS CHRISTIE DO CLINICAL STATEMENT: IMPRESSION: Multiple foci of macias-white interface loss including within the medial right occipital lobe, as well as bilateral cerebellar hemispheres, likely of differing ages. 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 Critical results were called by Dr. Adonis Christie to Dr. Lee On 01/20/2024t 22:13. XR Chest 1 View Result Date: January 20, 2024 Verified By: ADONIS CHRISTIE DO CLINICAL STATEMENT: IMPRESSION: No acute process. Assessment/Plan 1. Brain TIA Acute, new onset of dizziness, nausea and vomiting. Send for MRI of the brain and echocardiogram with bubble study. Consult placed to PT and OT to evaluate and treat. Check A1c and lipid profile in the am. 2. Urinary tract infection Acute, new onset. Continue Ceftriaxone 1 gram IV daily pending results of urine and blood cultures. 3. Nausea and vomiting Acute, secondary to dizziness. Continue Zofran IV PRN. 4. Type 2 diabetes mellitus Chronic. ADA diet. Blood glucose goal of 180 or less and avoid hypoglycemia. 5. Hypertension Chronic. Continue current antihypertensives. SBP goal of 140 or less. DVT prophylaxis with Eliquis. Code status: Full Code. Labs, diagnostic test and progress notes reviewed as noted in HPI. Plan of care discussed with patient. All questions answered. Patient verbalizes understanding and is agreeable with plan of care. This case was discussed with collaborating physician, Dr. Dex Toussaint. 76 minutes spent reviewing past diagnostic tests, reviewing lab results, vital sign trends, medicalhistory, reviewing medications and ordering home medications, examining patient, discussed plan of care with care team, collaborating with physician, and documenting in chart. Procedure/Surgical History Cholecystectomy Medications Home Medications (8) Active atorvastatin 80 mg oral tablet 80 mg = 1 tab(s), Oral, qDay clopidogrel 75 mg oral tablet Eliquis 5 mg oral tablet 5 mg = 1 tab(s), Oral, BID Jardiance 25 mg oral tablet 25 mg = 1 tab(s), Oral, qAM levothyroxine 50 mcg (0.05 mg) oral tablet 50 mcg = 1 tab(s), Oral, qDay Lopressor 25mg--USE metoprolol tartrate 25 mg oral tablet losartan 50 mg oral tablet MetFORMIN (Eqv-Glucophage XR) 500 mg oral tablet, EXTENDED RELEASE Allergies NKA Social History Alcohol Use: Current. Type: Wine. Frequency: 1-2 times per year., 01/20/2024 Substance Abuse Use: Never., 01/20/2024 Tobacco Nicotine Use: Never (less than 100 in lifetime)., 01/20/2024 Family History Cancer: Mother and Father. Heart disease: Brother. Health Status Family Member(s) Immunizations pneumococcal 13-valent conjugate vaccine: 0 unknown unit (09/25/14) pneumococcal 23-valent vaccine(Pneumovax: 0 unknown unit (01/29/14) SARS-CoV-2 (COVID-19) mRNA-1273 vaccine: 0.25 unknown unit (07/28/21) SARS-CoV-2 (COVID-19) mRNA-1273 vaccine: 0.25 unknown unit (12/30/20) SARS-CoV-2 (COVID-19) mRNA-1273 vaccine: 0.5 unknown unit (06/05/20) SARS-CoV-2 (COVID-19) mRNA-1273 vaccine: 0.5 unknown unit (05/08/20) tetanus/diphth/pertuss (Tdap) adult/adol: 0.5 unknown unit (01/17/20) zoster vaccine live: 0 unknown unit (11/29/12) zoster vaccine, inactivated: 0.5 unknown unit (08/09/20) zoster vaccine, inactivated: 0.5 unknown unit (12/18/19) Code Status Code Status - Ordered -- 01/21/24 0:10:00 EST, Full Code, Constant Order Digitally Signed by BRISEYDA HALL on 01/21/2024 01:07 PM [facility]11-14-2024 Note ORIGINAL EXAMINATION: CTA OF THE NECK; CTA OF THE HEAD WITH CONTRAST 01/20/2024 11:10 pm: TECHNIQUE: CTA of the neck was performed with the administration of intravenous contrast. Multiplanar reformatted images are provided for review. MIP images are provided for review. Stenosis of the internal carotid arteries measured using NASCET criteria. Automated exposure control, iterative reconstruction, and/or weight based adjustment of the mA/kV was utilized to reduce the radiation dose to as low as reasonably achievable.; CTA of the head/brain was performed with the administration of intravenous contrast. Multiplanar reformatted images are provided for review. MIP images are provided for review. Automated exposure control, iterative reconstruction, and/or weight based adjustment of the mA/kV was utilized to reduce the radiation dose to as low as reasonably achievable. COMPARISON: Concurrent CT head without contrast. HISTORY: ORDERING SYSTEM PROVIDED HISTORY: Reason for Exam: Stroke Emergency FINDINGS: CTA NECK: AORTIC ARCH/ARCH VESSELS: No dissection or arterial injury. No significant stenosis of the brachiocephalic or subclavian arteries. CAROTID ARTERIES: Atherosclerotic changes and tortuosity without dissection, arterial injury, or hemodynamically significant stenosis by NASCET criteria. VERTEBRAL ARTERIES: Slight left dominant. No dissection, arterial injury, or significant stenosis. SOFT TISSUES: The lung apices are clear. No cervical or superior mediastinal lymphadenopathy. The larynx and pharynx are unremarkable. 1.6 cm left thyroid nodule. BONES: No acute osseous abnormality. CTA HEAD: ANTERIOR CIRCULATION: Atherosclerotic changes without significant stenosis of the intracranial internal carotid, anterior cerebral, or middle cerebral arteries. No aneurysm. POSTERIOR CIRCULATION: Atherosclerotic changes without significant stenosis of the vertebral, basilar, or posterior cerebral arteries. No aneurysm. OTHER: No dural venous sinus thrombosis on this non-dedicated study. IMPRESSION: 1. Atherosclerotic changes without evidence of large vessel occlusion or flow-limiting stenosis. 2. Incidental 1.6 cm left thyroid lobe nodule. Follow-up with nonemergent ultrasound is recommended if not previously performed. Interpreted by: Adonis Christie Preliminary Report By: Adonis Christie Electronically signed By Adonis Christie Dictated Date: 01/20/2024 11:11:23 PM Prelim Date: 01/20/2024 11:16:50 PM Sign Date: 01/20/2024 11:16:50 PM Ordering Provider: [facility]11-14-2024 Note ORIGINAL EXAMINATION: CTA OF THE NECK; CTA OF THE HEAD WITH CONTRAST 01/20/2024 11:10 pm: TECHNIQUE: CTA of the neck was performed with the administration of intravenous contrast. Multiplanar reformatted images are provided for review. MIP images are provided for review. Stenosis of the internal carotid arteries measured using NASCET criteria. Automated exposure control, iterative reconstruction, and/or weight based adjustment of the mA/kV was utilized to reduce the radiation dose to as low as reasonably achievable.; CTA of the head/brain was performed with the administration of intravenous contrast. Multiplanar reformatted images are provided for review. MIP images are provided for review. Automated exposure control, iterative reconstruction, and/or weight based adjustment of the mA/kV was utilized to reduce the radiation dose to as low as reasonably achievable. COMPARISON: Concurrent CT head without contrast. HISTORY: ORDERING SYSTEM PROVIDED HISTORY: Reason for Exam: Stroke Emergency FINDINGS: CTA NECK: AORTIC ARCH/ARCH VESSELS: No dissection or arterial injury. No significant stenosis of the brachiocephalic or subclavian arteries. CAROTID ARTERIES: Atherosclerotic changes and tortuosity without dissection, arterial injury, or hemodynamically significant stenosis by NASCET criteria. VERTEBRAL ARTERIES: Slight left dominant. No dissection, arterial injury, or significant stenosis. SOFT TISSUES: The lung apices are clear. No cervical or superior mediastinal lymphadenopathy. The larynx and pharynx are unremarkable. 1.6 cm left thyroid nodule. BONES: No acute osseous abnormality. CTA HEAD: ANTERIOR CIRCULATION: Atherosclerotic changes without significant stenosis of the intracranial internal carotid, anterior cerebral, or middle cerebral arteries. No aneurysm. POSTERIOR CIRCULATION: Atherosclerotic changes without significant stenosis of the vertebral, basilar, or posterior cerebral arteries. No aneurysm. OTHER: No dural venous sinus thrombosis on this non-dedicated study. IMPRESSION: 1. Atherosclerotic changes without evidence of large vessel occlusion or flow-limiting stenosis. 2. Incidental 1.6 cm left thyroid lobe nodule. Follow-up with nonemergent ultrasound is recommended if not previously performed. Interpreted by: Adonis Christie Preliminary Report By: Adonis Christie Electronically signed By Adonis Christie Dictated Date: 01/20/2024 11:11:23 PM Prelim Date: 01/20/2024 11:16:50 PM Sign Date: 01/20/2024 11:16:50 PM Ordering Provider: [facility]11-14-2024 Note ORIGINAL EXAMINATION: CT OF THE HEAD WITHOUT CONTRAST 01/20/2024 9:58 pm TECHNIQUE: CT of the head was performed without the administration of intravenous contrast. Automated exposure control, iterative reconstruction, and/or weight based adjustment of the mA/kV was utilized to reduce the radiation dose to as low as reasonably achievable. COMPARISON: None. HISTORY: ORDERING SYSTEM PROVIDED HISTORY: Reason for Exam: patient states she is having nausea and vomiting that began after supper this evening. pt also endorses dizziness. pt states she just got back from a cruise today headache, vomiting FINDINGS: BRAIN/VENTRICLES: Macias-white interface loss is appreciated within the medial right occipital lobe with additional punctate foci of cytotoxic edema within the right inferior and left superior cerebellar hemispheres. No acute intracranial hemorrhage. No mass effect or midline shift. There are nonspecific hypoattenuating foci in the subcortical and periventricular white matter that most likely represent chronic microangiopathic ischemic changes in a patient of this age. Mild generalized volume loss is appreciated with associated prominence of the sulci and ventricles. ORBITS: The visualized portion of the orbits demonstrate no acute abnormality. SINUSES: The visualized paranasal sinuses and mastoid air cells demonstrate no acute abnormality. SOFT TISSUES/SKULL: No acute abnormality of the visualized skull or soft tissues. IMPRESSION: Multiple foci of macias-white interface loss including within the medial right occipital lobe, as well as bilateral cerebellar hemispheres, likely of differing ages. 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 Critical results were called by Dr. Adonis Christie to Dr. Lee On 01/20/2024 at 22:13. Interpreted by: Adonis Christie Preliminary Report By: Adonis Christie Electronically signed By Adonis Christie Dictated Date: 01/20/2024 9:59:57 PM Prelim Date: 01/20/2024 10:13:56 PM Sign Date: 01/20/2024 10:13:56 PM Ordering Provider: [facility]11-14-2024 Note ORIGINAL EXAMINATION: ONE XRAY VIEW OF THE CHEST 01/20/2024 9:51 pm COMPARISON: None. HISTORY: ORDERING SYSTEM PROVIDED HISTORY: Reason for Exam: patient states she is having nausea and vomiting that began after supper this evening. pt also endorses dizziness. pt states she just got back from a cruise today lightheadedness FINDINGS: The lungs are without acute focal process. There is no effusion or pneumothorax. The cardiomediastinal silhouette is without acute process. The osseous structures are without acute process. IMPRESSION: No acute process. Interpreted by: Adonis Christie Preliminary Report By: Adonis Christie Electronically signed By Adonis Christie Dictated Date: 01/20/2024 9:52:23 PM Prelim Date: 01/20/2024 9:52:42 PM Sign Date: 01/20/2024 9:52:42 PM [facility] Sinus rhythm Atrial premature complex Inferior infarct, old Consider anterior infarct Electronic Signature: LEE SHAWN DO 01/20/2024 21:17:38[facility] 10-21-2024 NoteHNO ID: [id number] Author: AGUEDA SABILLON LPN Service: ? Author Type: LICENSED NURSE Type: Progress Notes Filed: 12/27/2023 13:13 Note Text: Patient presents for B-12 injection. Denies any problems at this time. Patient instructed on any SE of medication, verbalized understanding and agreed to proceed with treatment. Tolerated injection well. Agueda Sabillon [facility]10-21-2024 History of Present illness Narrative* Agueda Sabillon LPN - 12/27/2023 1:07 PM EDT Patient presents for B-12 injection. Denies any problems at this time. Patient instructed on any SEof medication, verbalized understanding and agreed to proceed with treatment. Tolerated injection well. [facility]ueda Sabillon LPN [facility] NoteHNO ID: [id number] Author: AGUEDA SABILLON LPN Service: ? Author Type: LICENSED NURSE Type: Progress Notes Filed: 11/29/2023 13:13 Note Text: Patient presents for B-12 injection. Denies any problems at this time. Patient instructed on any SE of medication, verbalized understanding and agreed to proceed with treatment. Tolerated injection well. Agueda Sabillon [facility]09-23-2024 History of Present illness Narrative* Agueda Sabillon LPN - 11/29/2023 1:01 PM EDT Patient presents for B-12 injection. Denies any problems at this time. Patient instructed on any SEof medication, verbalized understanding and agreed to proceed with treatment. Tolerated injection well. Agueda Sabillon LPN [facility]-2024 NoteHNO ID: [id number] Author: AGUEDA SABILLON LPN Service: ? Author Type: LICENSED NURSE Type: Progress Notes Filed: 11/01/2023 13:34 Note Text: Patient presents for B-12 injection. Denies any problems at this time. Patient instructed on any SE of medication, verbalized understanding and agreed to proceed with treatment. Tolerated injection well. [facility] of Present illness Narrative* Agueda Sabillon LPN - 11/01/2023 1:15 PM EDT Patient presents for B-12 injection. Denies any problems at this time. Patient instructed on any SEof medication, verbalized understanding and agreed to proceed with treatment. Tolerated injection well. Agueda Sabillon LPN [facility]08-[facility]-2024 NoteHNO ID: [id number] Author: ASTRID MUSE APRN.[facility] Service: ? Author Type: Nurse Practitioner Type: Progress Notes Filed: 10/27/2023 11:10 Note Text: CC: Patient presents with: Recheck: 6 month follow up HPI Britney Canada is a 78 year old female who presents today for routine follow up. HTN, HLD, and paroxsymal A-fib: Ms. Canada indicates that she is feeling well and denies any symptoms referable to elevated blood pressure. Specifically denies headache, chest pain, palpitations, dyspnea, and peripheral edema. Patient denies any side effects of her medication(s) and is compliant with their regimen. She does not check BP's generally. Britney works out regularly 3 times per week with walking. She watches her diet for sodium, low fat and low cholesterol most of the time. Goes to [facility] yearly for routine exam. Last 3 Encounter BP Readings: Date: BP: 10/27/2023 124/68 04/27/2023 122/58 12/09/2022 118/56 Hypothyroidism: Taking medication as prescribed. Denies any abnormal change in weight or energy. DIABETES MELLITUS: Ms. Canada denies excessive thirst or increased frequency of urination, chest pain or dyspnea , numbness, tingling or pain in extremities, new or unusual visual symptoms, weight loss/gain, and bowel changes/loose stools. 2 weeks ago had 3 nights that she wok up dizzy but resolved when she went back to bed and woke up. No known low blood sugar readings. Follows a diabetic diet most of the time. She is compliant with medication(s) and is tolerating med(s) without any side effects. She reports checking her glucose on a once a day schedule with sugars in the fasting 120s range. Patient's last HgA1C was Hemoglobin A1C (%) Date Value 10/26/2023 7.7 04/27/2023 7.7 03/25/2021 7.9 12/06/2020 8.3 Hemoglobin A1C (POCT) (%) Date Value 09/18/2022 9.0 11/21/2021 8.0 ) Last eye exam was over a year ago. Needs to find a new one close to her. Declines a consult at this time. REVIEW OF SYSTEMS See HPI PAST MEDICAL HISTORY No date: Abnormal mammogram, unspecified No date: Diabetes mellitus without mention of complication PAST SURGICAL HISTORY 1989: CHOLECYSTECTOMY No date: RPR UMBILICAL HRNA 5 YRS/> REDUCIBLE 10/18/08: STEREOTACTIC CORE BIOPSY Comment: RIGHT BREAST ALLERGIES Darvon [Propoxyphene Hcl] and Penicillins MEDICATIONS empagliflozin (JARDIANCE) 25 mg tabletTake 1 tablet by mouth once daily. Take 1 tablet once daily in the morningDisp: 90 tabletRfl: 3 clopidogrel (PLAVIX) 75 mg tabletTake 1 tablet by mouth once daily. Take 75 mg by mouth once daily.Disp: 90 tabletRfl: 3 levothyroxine (LEVOXYL) 50 mcg tabletTake 1 tablet by mouth once daily. Take on empty stomach. For ThyroidDisp: 90 tabletRfl: 1 atorvastatin (LIPITOR) 80 mg tabletTAKE 1 TABLET BY MOUTH ONCE DAILY AT BEDTIME FOR CHOLESTEROLDisp: 90 tabletRfl: 3 metFORMIN ER (GLUCOPHAGE XR) 500 mg 24 hr tablettake 2 tablets by mouth twice daily with mealsDisp: 360 tabletRfl: 0 terconazole vaginal cream (TERAZOL) 0.8 % vaginal creamUse 1 Applicator vaginally daily at bedtime.Disp: 20 gRfl: 0 losartan (COZAAR) 50 mg tabletTake 1 tablet by mouth once daily.Disp: 90 tabletRfl: 3 cyanocobalamin 1,000 mcg/mLInject 1 mL intramuscularly once every month.Disp: 1 mLRfl: 12 blood sugar diagnostic (BLOOD GLUCOSE TEST) test stripTest blood sugar(s) 2 times daily. Dx: Type 2 DM - Uncontrolled E11.65 Insulin: NoDisp: 100 StripRfl: 5 Lancets lancetsTest blood sugar(s) two times times daily. Dx: Other DM Code E11.65 Insulin: NoDisp: 100 EachRfl: 11 metoprolol tartrate, short acting, (LOPRESSOR) 25 mg tabletTake 25 mg by mouth twice daily.Disp: Rfl: apixaban (ELIQUIS) 5 mg tab(s)Take by mouth twice daily.Disp: Rfl: fluticasone (FLONASE) 50 mcg/actuation nasal sprayUse 2 Sprays in each nostril once daily.Disp: 3 BottleRfl: 3 FAMILY HISTORY Problem Relation Age of Onset Prostate Cancer Father Breast Cancer Mother 40 Coronary Artery Disease Mother pace maker Coronary Artery Disease Father triple bypass Social History Tobacco Use Smoking status: Never Smokeless tobacco: Never Substance Use Topics Alcohol use: Yes Comment: rarely Drug use: No PHYSICAL EXAM BP 124/68 Pulse 60 Resp 16 Wt 84.4 kg (186 lb) SpO2 97% BMI 34.02 kg/m? General Appearance: well appearing, in no acute distress, alert Pysch: mood and affect broad and appropriate Eyes: conjunctiva pink and moist, no icterus, sclera white, non-injected Lungs: Lungs clear to auscultation. No wheezing, rhonchi, rales. Heart: RRR without murmur, gallop, or rubs. No ectopy Health maintenance reviewed with patient: Depression Screening Never done Anxiety Screening Never done RSV Vaccine(1 - 1-dose 60+ series) Never done Urine Albumin:Creatinine Ratio due on 11/01/2020 Diabetic Foot Exam due on 11/21/2022 Dilated Retinal Exam due on 02/17/2023 Advance Directive Discussion due on 03/08 (more content not included)... [facility]08-21-2024 History of Present illness Narrative* Astrid Muse APRN.[employer] - 10/27/2023 10:09 AM EDT CC: Patient presents with: Recheck: 6 month follow up HPI Britney Canada is a 78 year old female who presents today for routine follow up. HTN, HLD, and paroxsymal A-fib: Ms. Canada indicates that she is feeling well and denies any symptoms referable to elevated blood pressure. Specifically denies headache, chest pain, palpitations, dyspnea, and peripheral edema. Patient denies any side effects of her medication(s) and is compliant with their regimen. She does not check BP's generally. Britney works out regularly 3 times per week with walking. She watches her diet for sodium, low fat and low cholesterol most of the time. Goes to [facility] yearly for routine exam. Last 3 Encounter BP Readings: Date: BP: 10/27/2023 124/68 04/27/2023 122/58 12/09/2022 118/56 Hypothyroidism: Taking medication as prescribed. Denies any abnormal change in weight or energy. DIABETES MELLITUS: Ms. Canada denies excessive thirst or increased frequency of urination, chest pain or dyspnea , numbness, tingling or pain in extremities, new or unusual visual symptoms, weight loss/gain, and bowel changes/loose stools. 2 weeks ago had 3 nights that she wok up dizzy but resolved when she went back to bed and woke up. No known low blood sugar readings. Follows a diabetic diet most of the time. She is compliant with medication(s) and is tolerating med(s) without any side effects. She reports checking her glucose on a once a day schedule with sugars in the fasting 120s range. Patient's last HgA1C was Hemoglobin A1C (%) Date Value 10/26/2023 7.7 04/27/2023 7.7 03/25/2021 7.9 12/06/2020 8.3 Hemoglobin A1C (POCT) (%) Date Value 09/18/2022 9.0 11/21/2021 8.0 ) Last eye exam was over a year ago. Needs to find a new one close to her. Declines a consult at thistime. REVIEW OF SYSTEMS See HPI PAST MEDICAL HISTORY No date: Abnormal mammogram, unspecified No date: Diabetes mellitus without mention of complication PAST SURGICAL HISTORY 1989: CHOLECYSTECTOMY No date: RPR UMBILICAL HRNA 5 YRS/> REDUCIBLE 10/18/08: STEREOTACTIC CORE BIOPSY Comment: RIGHT BREAST ALLERGIES Darvon [Propoxyphene Hcl] and Penicillins MEDICATIONS empagliflozin (JARDIANCE) 25 mg tablet^Take 1 tablet by mouth once daily. Take 1 tablet once daily in the morning^Disp: 90 tablet^Rfl: 3 clopidogrel (PLAVIX) 75 mg tablet^Take 1 tablet by mouth once daily. Take 75 mg by mouth once daily.^Disp: 90 tablet^Rfl: 3 levothyroxine (LEVOXYL) 50 mcg tablet^Take 1 tablet by mouth once daily. Take on empty stomach. ForThyroid^Disp: 90 tablet^Rfl: 1 atorvastatin (LIPITOR) 80 mg tablet^TAKE 1 TABLET BY MOUTH ONCE DAILY AT BEDTIME FOR CHOLESTEROL^Disp: 90 tablet^Rfl: 3 metFORMIN ER (GLUCOPHAGE XR) 500 mg 24 hr tablet^take 2 tablets by mouth twice daily with meals^Disp: 360 tablet^Rfl: 0 terconazole vaginal cream (TERAZOL) 0.8 % vaginal cream^Use 1 Applicator vaginally daily at bedtime.^Disp: 20 g^Rfl: 0 losartan (COZAAR) 50 mg tablet^Take 1 tablet by mouth once daily.^Disp: 90 tablet^Rfl: 3 cyanocobalamin 1,000 mcg/mL^Inject 1 mL intramuscularly once every month.^Disp: 1 mL^Rfl: 12 blood sugar diagnostic (BLOOD GLUCOSE TEST) test strip^Test blood sugar(s) 2 times daily. Dx: Type 2 DM - Uncontrolled E11.65 Insulin: No^Disp: 100 Strip^Rfl: 5 Lancets lancets^Test blood sugar(s) two times times daily. Dx: Other DM Code E11.65 Insulin: No^Disp: 100 Each^Rfl: 11 metoprolol tartrate, short acting, (LOPRESSOR) 25 mg tablet^Take 25 mg by mouth twice daily.^Disp: ^Rfl: apixaban (ELIQUIS) 5 mg tab(s)^Take by mouth twice daily.^Disp: ^Rfl: fluticasone (FLONASE) 50 mcg/actuation nasal spray^Use 2 Sprays in each nostril once daily.^Disp: 3Bottle^Rfl: 3 FAMILY HISTORY Problem Relation Age of Onset Prostate Cancer Father Breast Cancer Mother 40 Coronary Artery Disease Mother pace maker Coronary Artery Disease Father triple bypass Social History Tobacco Use Smoking status: Never Smokeless tobacco: Never Substance Use Topics Alcohol use: Yes Comment: rarely Drug use: No PHYSICAL EXAM BP 124/68 Pulse 60 Resp 16 Wt 84.4 kg (186 lb) SpO2 97% BMI 34.02 kg/m General Appearance: well appearing, in no acute distress, alert Pysch: mood and affect broad and appropriate Eyes: conjunctiva pink and moist, no icterus, sclera white, non-injected Lungs: Lungs clear to auscultation. No wheezing, rhonchi, rales. Heart: RRR without murmur, gallop, or rubs. No ectopy Health maintenance reviewed with patient: Depression Screening Never done Anxiety Screening Never done RSV Vaccine(1 - 1-dose 60+ series) Never done Urine Albumin:Creatinine Ratio due on 11/01/2020 Diabetic Foot Exam due on 11/21/2022 Dilated Retinal Exam due on 02/17/2023 Advance Directive Discussion due on 03/08/2023 Covid-19 Vaccine(2022- season) due on 05/14/2023 Influenza Vaccine(1) due on 11/07/2023 LDL Cholesterol due on 04/27/2024 Annual PCP Team Chronic Disease Visit due on 04/27/2024 BP Controlled (<130/80) due on 04/27/2024 HbA1C due on 04/27/2024 DTaP,Tdap,Td Vaccine(2 - Td or Tdap) due on 01/16/2030 Bone Density Screening Completed Hepatitis C Screening Completed Shingrix Vaccine Completed Pneumococcal Vaccine: 65+ Completed Mammogram Screening Discontinued Colorectal Cancer Screening Discontinued DATA REVIEWED: Most recent labs ASSESSMENT/PLAN: 1. Essential hypertension - ICD9: 401.9, ICD10: I10 (primary diagnosis) - Controlled - Continue current medications - Recommend home blood pressure monitoring, to bring results to next visit - Encouraged sodium restriction, DASH or Mediterranean diet - Recommend regular aerobic exercise - LOSARTAN 50 MG TABLET - COMPREHENSIVE METABOLIC PANEL - COMPLETE BLOOD COUNT 2. Diabetes mellitus type 2 with complications (HCC) - ICD9: 250.90, ICD10: E11.8 - Uncontrolled - patient declines medication addition/change at this time. Discussed concerns for uncontrolled diabetes increasing risk of heart attack, stroke, vision damage, kidney concerns, and even decrease ability to heal and fight off infection. Still declines further treatment. Offered diabetic education but declines this as well. Recommend 3 month follow up, declines but will follow up in6 months. - Continue current medications - Blood glucose monitoring on a once daily schedule - Counseled on healthy diet and regular exercise - Discussed need for and benefit of weight loss. BMI 34.02 kg/(m^2) - ALBUMIN/CREATININE RATIO, URINE - HEMOGLOBIN A1C - COMPREHENSIVE METABOLIC PANEL - COMPLETE BLOOD COUNT 3. Mixed hyperlipidemia - ICD9: 272.2, ICD10: E78.2 - Control undetermined, due for labs - Continue current medications - Counseled on healthy diet and regular exercise - Discussed need for and benefit of weight loss. BMI 34.02 kg/(m^2) - LIPID PANEL BASIC - COMPREHENSIVE METABOLIC PANEL 4. Paroxysmal A-fib (HCC) - ICD9: 427.31, ICD10: I48.0 Stable and asymptomatic Continue with current medications and recommendations by cardiology 5. Hypothyroidism, unspecified type - ICD9: 244.9, ICD10: E03.9 Asymptomatic and TSH in normal range - Instructed patient on importance of taking on an empty stomach either first thing in the morning or at bedtime. - THYROID STIMULATING HORMONE Prescription instructions reviewed with patient as applicable. Potential red flag symptoms discussed with the patient. Reviewed appropriate action plan to take if red flag symptoms occur. Patient agreeable to treatment plan. Astrid Muse APRN.CNP documented in this encounterC[facility]08-[facility]24 Telephone encounter Note * Telephone Encounter - Chantale Alves MA - 10/25/2023 8:50 AM EDT Patient notified. [facility]08-19-2024 Miscellaneous Notes* Telephone Encounter - Chantale Alves MA - 10/25/2023 8:50 AM EDT Patient notified. * Telephone Encounter - Astrid Muse APRN.CNP - 10/25/2023 7:27 AM EDT Non fasting blood work orders placed. Thank you Astrid Muse APRN.CNP * Telephone Encounter - Jodi Chung - 10/22/2023 10:39 AM EDT Pt wanting to know if there are labs due before appointment 10/27/23. Please advise pt and place orders. documented in this encounterCher[facility]08-19-2024 Telephone encounter Note * Telephone Encounter - Astrid Muse APRN.CNP - 10/25/2023 7:27 AM EDT Non fasting blood work orders placed. Thank you Astrid Muse APRN.CNP [facility]08-[facility] Telephone encounter Note* Telephone Encounter - Jodi Chung - 10/22/2023 10:39 AM EDT Pt wanting to know if there are labs due before appointment 10/27/23. Please advise pt and place orders. [facility] Work Phone: 1(459) 401-382908-01-2024 Telephone encounter Note* Telephone Encounter - Renetta Mares - 10/07/2023 12:35 PM EDT Prescription Refill Information The patient has been identified by name and date of : Yes Caregiver verified no other encounters exist for this prescription request: Yes Caregiver confirmed with patient/requestor that no other refills are due, in the near future, with this provider at this time: Yes The last office visit in the department: 04/27/23 Does the patient have a future office visit with this provider/department: Yes Requested Prescriptions Pending Prescriptions Disp Refills empagliflozin (JARDIANCE) 25 mg tablet 90 tablet 3 Sig: Take 1 tablet by mouth once daily. Take 1 tablet once daily in the morning Renetta Allred October 07, 2023 12:36 PM [facility]08-01-2024 Miscellaneous Notes* Telephone Encounter - Renetta Mares - 10/07/2023 12:35 PM EDT Prescription Refill Information The patient has been identified by name and date of : Yes Caregiver verified no other encounters exist for this prescription request: Yes Caregiver confirmed with patient/requestor that no other refills are due, in the near future, with this provider at this time: Yes The last office visit in the department: 04/27/23 Does the patient have a future office visit with this provider/department: Yes Requested Prescriptions Pending Prescriptions Disp Refills empagliflozin (JARDIANCE) 25 mg tablet 90 tablet 3 Sig: Take 1 tablet by mouth once daily. Take 1 tablet once daily in the morning Renetta Wilson [facility] October 07, 2023 12:36 PM documented in this encounterCher[facility]07-29-2024 NoteHNO ID: [id number] Author: AGUEDA SABILLON LPN Service: ? Author Type: LICENSED NURSE Type: Progress Notes Filed: 10/04/2023 13:09 Note Text: Patient presents for B-12 injection. Denies any problems at this time. Patient instructed on any SE of medication, verbalized understanding and agreed to proceed with treatment. Tolerated injection well. [facility] History of Present illness Narrative* Agueda Sabillon LPN - 10/04/2023 12:59 PM EDT Patient presents for B-12 injection. Denies any problems at this time. Patient instructed on any SEof medication, verbalized understanding and agreed to proceed with treatment. Tolerated injection well. Agueda Sabillon LPN documented in this encounterCher[facility]07-02-2024 History of Present illness Narrative* Agueda Sabillon LPN - 09/07/2023 10:12 AM EDT Patient presents for B-12 injection. Denies any problems at this time. Patient instructed on any SEof medication, verbalized understanding and agreed to proceed with treatment. Tolerated injection well. Agueda Sabillon LPN documented in this encounterC[facility]06-05-2024 Telephone encounter Note * Telephone Encounter - Aretha Campuzano - 08/11/2023 9:35 AM EDT Patient has been identified by name and date of : Patient phones for refill(s): Requested Prescriptions Pending Prescriptions Disp Refills clopidogrel (PLAVIX) 75 mg tablet 90 tablet 3 Sig: Take 1 tablet by mouth once daily. Take 75 mg by mouth once daily. Date of last office visit in primary care: 04/27/2023 Date of next office visit in primary care: 10/27/2023 Please advise. Thank you. Aretha Campuzano. [facility]06-05-2024 Miscellaneous Notes* Telephone Encounter - Aretha Campuzano - 08/11/2023 9:35 AM EDT Patient has been identified by name and date of : Patient phones for refill(s): Requested Prescriptions Pending Prescriptions Disp Refills clopidogrel (PLAVIX) 75 mg tablet 90 tablet 3 Sig: Take 1 tablet by mouth once daily. Take 75 mg by mouth once daily. Date of last office visit in primary care: 04/27/2023 Date of next office visit in primary care: 10/27/2023 Please advise. Thank you. Aretha Campuzano. documented in this encounterC[facility]06-03-2024 Telephone encounter Note * Telephone Encounter - Jodi Sanchez - 08/09/2023 8:24 AM EDT Patient has been identified by name and date of : Yes, Provider Dr. Velasquez Date 08-09-23 Time 8:25a Spouse phones for refill(s): Requested Prescriptions Pending Prescriptions Disp Refills levothyroxine (LEVOXYL) 50 mcg tablet 90 tablet 1 Sig: Take 1 tablet by mouth once daily. Take on empty stomach. For Thyroid Date of last office visit in primary care: 04/27/2023 Date of next office visit in primary care: 10/27/2023 Patient is completely out of meds and is asking that it be called in today. Please advise. Thank you. Jodi Allred. [facility] Work Phone: [phone] Miscellaneous Notes* Telephone Encounter - Jodi Sanchez - 08/09/2023 8:24 AM EDT Patient has been identified by name and date of : Yes, Provider Dr. Pina Alonso 08-09-23 Time 8:25a Spouse phones for refill(s): Requested Prescriptions Pending Prescriptions Disp Refills levothyroxine (LEVOXYL) 50 mcg tablet 90 tablet 1 Sig: Take 1 tablet by mouth once daily. Take on empty stomach. For Thyroid Date of last office visit in primary care: 04/27/2023 Date of next office visit in primary care: 10/27/2023 Patient is completely out of meds and is asking that it be called in today. Please advise. Thank you. Jodi Allred. documented in this encounterCher[facility]05-24-2024 History of Present illness Narrative* Agueda Sabillon LPN - 07/30/2023 10:59 AM EDT Patient presents for B-12 injection. Denies any problems at this time. Patient instructed on any SEof medication, verbalized understanding and agreed to proceed with treatment. Tolerated injection well. Agueda Sabillon LPN documented in this encounterCher[facility]04-29-2024 History of Present illness Narrative* Agueda Sabillon LPN - 07/05/2023 1:41 PM EDT Patient presents for B-12 injection. Denies any problems at this time. Patient instructed on any SEof medication, verbalized understanding and agreed to proceed with treatment. Tolerated injection well. Agueda Sabillon LPN documented in this encounterC[facility]04-24-2024 Telephone encounter Note * Telephone Encounter - Grace Luz LPN - 06/30/2023 8:30 AM EDT Patient has been identified by name and date of : No Patient phones for refill(s): Requested Prescriptions Pending Prescriptions Disp Refills atorvastatin (LIPITOR) 80 mg tablet [Pharmacy Med Name: Atorvastatin Calcium 80 MG Oral Tablet] 90 tablet 0 Sig: TAKE 1 TABLET BY MOUTH ONCE DAILY AT BEDTIME FOR CHOLESTEROL Date of last office visit in primary care: 04/27/2023 Date of next office visit in primary care: 10/27/2023 Please advise. Thank you. Grace Luz LPN. [facility]04-24-2024 Miscellaneous Notes* Telephone Encounter - Grace Luz LPN - 06/30/2023 8:30 AM EDT Patient has been identified by name and date of : No Patient phones for refill(s): Requested Prescriptions Pending Prescriptions Disp Refills atorvastatin (LIPITOR) 80 mg tablet [Pharmacy Med Name: Atorvastatin Calcium 80 MG Oral Tablet] 90 tablet 0 Sig: TAKE 1 TABLET BY MOUTH ONCE DAILY AT BEDTIME FOR CHOLESTEROL Date of last office visit in primary care: 04/27/2023 Date of next office visit in primary care: 10/27/2023 Please advise. Thank you. Grace Luz LPN. documented in this encounterCher[facility]04-02-2024 Miscellaneous Notes* Telephone Encounter - Grace Luz LPN - 06/08/2023 8:02 AM EDT Patient has been identified by name and date of : No Patient phones for refill(s): Requested Prescriptions Pending Prescriptions Disp Refills metFORMIN ER (GLUCOPHAGE XR) 500 mg 24 hr tablet [Pharmacy Med Name: metFORMIN HCl ER 500 MG Oral Tablet Extended Release 24 Hour] 360 tablet 0 Sig: take 2 tablets by mouth twice daily with meals Date of last office visit in primary care: 04/27/2023 Date of next office visit in primary care: 10/27/2023 Please advise. Thank you. Grace Luz LPN. documented in this encounterCher[facility]04-01-2024 History of Present illness Narrative* Agueda Sabillon LPN - 06/07/2023 1:01 PM EDT Patient presents for B-12 injection. Denies any problems at this time. Patient instructed on any SEof medication, verbalized understanding and agreed to proceed with treatment. Tolerated injection well. Agueda Sabillon LPN documented in this encounterCher[facility]03-04-2024 History of Present illness Narrative* Agueda Sabillon LPN - 05/10/2023 1:33 PM EST Patient presents for B-12 injection. Denies any problems at this time. Patient instructed on any SEof medication, verbalized understanding and agreed to proceed with treatment. Tolerated injection well. Agueda Sabillon LPN documented in this encounterCher[facility]02-20-2024 History of Present illness Narrative* Renetta Christie PA-C - 04/27/2023 9:49 AM EST CC: Patient presents with: Follow Up: gracie SUAREZ Britney [place] is a 77 year old female who presents today for f/u DM - LV was on 12/09/22. At that time, was getting stronger and stronger post CVA 08/25/22, doing exercises at home -Seeing Dr. Lee - now only seeing once/year Having headaches lately, and isn't sure if it's related to her sugars or what's going on. States they're not very bothersome but just wanted to mention. Type II DM - last A1c 7.9 four months ago. Britney Canada denies excessive thirst or increased frequency of urination, chest pain or dyspnea , numbness, tingling or pain in extremities, new or unusual visual symptoms, low sugar/hypoglycemic reactions, weight loss/gain, lightheadedness/dizziness, and bowel changes/loose stools. She is compliant with medication(s) and is tolerating med(s) without any side effects. Home blood sugar readings: Not taking them at the present Hypoglycemia: Yes, pretty rare (twice in the past year) Diabetic diet: Yes, pescetarian for the most part Patient's last HgA1C was Hemoglobin A1C (%) Date Value 12/07/2022 7.9 10/09/2022 8.5 03/25/2021 7.9 12/06/2020 8.3 Hemoglobin A1C (POCT) (%) Date Value 09/18/2022 9.0 11/21/2021 8.0 REVIEW OF SYSTEMS See All other systems negative. PAST MEDICAL HISTORY Diagnosis Date Abnormal mammogram, unspecified Diabetes mellitus without mention of complication PAST SURGICAL HISTORY Procedure Laterality Date CHOLECYSTECTOMY 1989 RPR UMBILICAL HRNA 5 YRS/> REDUCIBLE STEREOTACTIC CORE BIOPSY 10/18/08 RIGHT BREAST ALLERGIES Darvon [Propoxyphene Hcl] and Penicillins MEDICATIONS levothyroxine (LEVOXYL) 50 mcg tablet^Take 1 tablet by mouth once daily. Take on empty stomach. ForThyroid^Disp: 30 tablet^Rfl: 5 terconazole vaginal cream (TERAZOL) 0.8 % vaginal cream^Use 1 Applicator vaginally daily at bedtime.^Disp: 20 g^Rfl: 0 losartan (COZAAR) 50 mg tablet^Take 1 tablet by mouth once daily.^Disp: 90 tablet^Rfl: 3 cyanocobalamin 1,000 mcg/mL^Inject 1 mL intramuscularly once every month.^Disp: 1 mL^Rfl: 12 empagliflozin (JARDIANCE) 25 mg tablet^Take 1 tablet by mouth once daily. Take 1 tablet once daily in the morning^Disp: 90 tablet^Rfl: 3 clopidogrel (PLAVIX) 75 mg tablet^Take 1 tablet by mouth once daily. Take 75 mg by mouth once daily.^Disp: 90 tablet^Rfl: 3 blood sugar diagnostic (BLOOD GLUCOSE TEST) test strip^Test blood sugar(s) 2 times daily. Dx: Type 2 DM - Uncontrolled E11.65 Insulin: No^Disp: 100 Strip^Rfl: 5 Lancets lancets^Test blood sugar(s) two times times daily. Dx: Other DM Code E11.65 Insulin: No^Disp: 100 Each^Rfl: 11 metFORMIN ER (GLUCOPHAGE XR) 500 mg 24 hr tablet^Take 2 tablets by mouth twice daily with meals.^Disp: 360 tablet^Rfl: 3 atorvastatin (LIPITOR) 80 mg tablet^Take 1 tablet by mouth daily at bedtime. For cholesterol.^Disp:90 tablet^Rfl: 3 metoprolol tartrate, short acting, (LOPRESSOR) 25 mg tablet^Take 25 mg by mouth twice daily.^Disp: ^Rfl: apixaban (ELIQUIS) 5 mg tab(s)^Take by mouth twice daily.^Disp: ^Rfl: fluticasone (FLONASE) 50 mcg/actuation nasal spray^Use 2 Sprays in each nostril once daily.^Disp: 3Bottle^Rfl: 3 FAMILY HISTORY Problem Relation Age of Onset Prostate Cancer Father Breast Cancer Mother 40 Coronary Artery Disease Mother pace maker Coronary Artery Disease Father triple bypass Social History Tobacco Use Smoking status: Never Smokeless tobacco: Never Substance Use Topics Alcohol use: Yes Comment: rarely Drug use: No PHYSICAL EXAM BP 122/58 (BP Site: Left Arm, BP Position: Sitting, BP Cuff Size: Large Adult) Pulse 61 Resp 12 Ht 157.5 cm (5' 2) Wt 85.3 kg (188 lb) SpO2 97% BMI 34.39 kg/m General Appearance: well appearing, in no acute distress, alert, obese body habitus Pysch: mood and affect broad and appropriate Skin: Skin color, texture, turgor normal for age; Head: normocephalic, atraumatic Lymph nodes: No cervical lymphadenopathy Lungs: Lungs clear to auscultation. No wheezing, rhonchi, rales. Heart: RRR without murmur, gallop, or rubs. No ectopy Abdomen: Normal abdominal exam Extremities: No gross deformities, significant edema, skin discoloration, clubbing or cyanosis. Neurological: Gait normal. No focal neurological deficits. Sensation grossly intact. ASSESSMENT/PLAN: 1. Type 2 diabetes mellitus with hyperglycemia, without long-term current use of insulin (HCC) - ICD9: 250.00, 790.29, ICD10: E11.65 (primary diagnosis) - Control undetermined, due for labs - will obtain today - Continue current medications. Will adjust as necessary pending results. 2. Cerebrovascular accident (CVA), unspecified mechanism (HCC) - ICD9: 434.91, ICD10: I63.9 Status post CVA 08/28 -- doing well at this time. Following with Dr. Lee once/year 3. Mixed hyperlipidemia - ICD9: 272.2, ICD10: E78.2 - Control undetermined, due for labs- will call pending results - Continue current medications - Counseled on healthy diet and regular exercise 4. Essential hypertension - ICD9: 401.9, ICD10: I10 - Controlled - Continue current medications - Recommend home blood pressure monitoring, to bring results to next visit - Encouraged sodium restriction, DASH or Mediterranean diet - Recommend regular aerobic exercise F/u 6 months routine issues Prescription instructions reviewed with patient as applicable. Potential red flag symptoms discussed with the patient. Reviewed appropriate action plan to take if red flag symptoms occur. Patient agreeable to treatment plan. Renetta Christie PA-C documented in this encounterC[facility]02-19-2024 Miscellaneous Notes* Telephone Encounter - Chantale Alves Ma - 04/26/2023 4:36 PM EST Spouse notified. * Telephone Encounter - Renetta Christie PA-C - 04/26/2023 4:22 PM EST So I did not see this in advance-- but lab orders are now placed. Advise fasting (just do it tomorrow with appt if possible). Otherwise, I can just call after the fact with results. Renetta hCristie PA-C * Telephone Encounter - Candis Bergman LPN - 04/26/2023 10:26 AM EST Patient calling she has diabetic follow up appt scheduled for tomorrow. She tried to get lab work done Wednesday, no orders in computer. Patient asking if she should have any labs done for her appt? Her last HGBA1C was done early Dec 2022. Pending orders if wanted, needs diagnosis. Please advise documented in this encounterCher[facility]02-05-2024 History of Present illness Narrative* Agueda Sabillon LPN - 04/12/2023 1:19 PM EST Patient presents for B-12 injection. Denies any problems at this time. Patient instructed on any SEof medication, verbalized understanding and agreed to proceed with treatment. Tolerated injection well. Agueda Sabillon LPN documented in this encounterCher[facility]12-07-2023 History of Present illness Narrative* Agueda Sabillon LPN - 02/11/2023 2:14 PM EST Patient presents for B-12 injection. Denies any problems at this time. Patient instructed on any SEof medication, verbalized understanding and agreed to proceed with treatment. Tolerated injection well. Agueda Sabillon LPN documented in this encounterCher[facility]11-09-2023 History of Present illness Narrative* Agueda Sabillon LPN - 01/14/2023 2:14 PM EST Patient presents for B-12 injection. Denies any problems at this time. Patient instructed on any SEof medication, verbalized understanding and agreed to proceed with treatment. Tolerated injection well. Agueda Sabillon LPN documented in this encounterC[facility]11-06-2023 Miscellaneous Notes* Telephone Encounter - Grace Luz - 01/11/2023 8:19 AM EST Patient has been identified by name and date of : No Patient phones for refill(s): Requested Prescriptions Pending Prescriptions Disp Refills levothyroxine (LEVOXYL) 50 mcg tablet 30 tablet 5 Sig: Take 1 tablet by mouth once daily. Take on empty stomach. For Thyroid Date of last office visit in primary care: 12/09/2022 Date of next office visit in primary care: 03/17/2023 Last 2 Encounter Wt Readings: Date: Wt: 12/09/2022 88.9 kg (196 lb) 10/14/2022 92.5 kg (204 lb) Previous labs/tests for medication: Thyroid: TSH Date Value 10/09/2022 1.420 mIU/L 03/25/2021 4.570 uU/mL Please advise. Thank you. Grace Luz. documented in this encounterC[facility] Hospital10-12-2023 History of Present illness Narrative* Agueda Sabillon LPN - 12/17/2022 2:50 PM EDT Patient presents for B-12 injection. Denies any problems at this time. Patient instructed on any SEof medication, verbalized understanding and agreed to proceed with treatment. Tolerated injection well. Agueda Sabillon LPN documented in this encounterCher[facility] Hospital10-04-2023 History of Present illness Narrative* Renetta Christie PA-C - 12/09/2022 1:01 PM EDT CC: Patient presents with: Follow Up: sugars and labs HPI Britney Canada is a 77 year old female who presents today for follow-up on sugars and to discuss labs. Last visit was 10/14/2022. A1c and most recent check 2 days ago was 7.9, down from A1c of 9.0 in 09/27 She is still having vaginal itching, and she wonders if it could be related to the new medication. She also wonders if it could be due to wearing a pad all the time, due to issues leaking which shepresumes is related to her stroke. She was on Terconazole and that seemed to resolve after 3 days of treatment. She finally recently saw Dr. Winkler -- will request notes from consult. Continues to get stronger and stronger Diabetes: Britney Canada denies excessive thirst or increased frequency of urination, chest pain or dyspnea , numbness, tingling or pain in extremities, new or unusual visual symptoms, low sugar/hypoglycemic reactions, weight loss/gain, lightheadedness/dizziness, and bowel changes/loose stools. She is compliant with medication(s)-- see above re: possbile urinary side effects. Home blood sugar readings: They're up and down. Hypoglycemia: No Patient's last HgA1C was Hemoglobin A1C (%) Date Value 12/07/2022 7.9 10/09/2022 8.5 03/25/2021 7.9 12/06/2020 8.3 Hemoglobin A1C (POCT) (%) Date Value 09/18/2022 9.0 11/21/2021 8.0 REVIEW OF SYSTEMS See HPI All other systems negative. PAST MEDICAL HISTORY Diagnosis Date Abnormal mammogram, unspecified Diabetes mellitus without mention of complication PAST SURGICAL HISTORY Procedure Laterality Date CHOLECYSTECTOMY 1989 RPR UMBILICAL HRNA 5 YRS/> REDUCIBLE STEREOTACTIC CORE BIOPSY 10/18/08 RIGHT BREAST ALLERGIES Darvon [Propoxyphene Hcl] and Penicillins MEDICATIONS terconazole vaginal cream (TERAZOL) 0.8 % vaginal cream^Use 1 Applicator vaginally daily at bedtime.^Disp: 20 g^Rfl: 0 losartan (COZAAR) 50 mg tablet^Take 1 tablet by mouth once daily.^Disp: 90 tablet^Rfl: 3 cyanocobalamin 1,000 mcg/mL^Inject 1 mL intramuscularly once every month.^Disp: 1 mL^Rfl: 12 empagliflozin (JARDIANCE) 25 mg tablet^Take 1 tablet by mouth once daily. Take 1 tablet once daily in the morning^Disp: 90 tablet^Rfl: 3 clopidogrel (PLAVIX) 75 mg tablet^Take 1 tablet by mouth once daily. Take 75 mg by mouth once daily.^Disp: 90 tablet^Rfl: 3 blood sugar diagnostic (BLOOD GLUCOSE TEST) test strip^Test blood sugar(s) 2 times daily. Dx: Type 2 DM - Uncontrolled E11.65 Insulin: No^Disp: 100 Strip^Rfl: 5 Lancets lancets^Test blood sugar(s) two times times daily. Dx: Other DM Code E11.65 Insulin: No^Disp: 100 Each^Rfl: 11 levothyroxine (LEVOXYL) 50 mcg tablet^Take 1 tablet by mouth once daily. Take on empty stomach. ForThyroid^Disp: 30 tablet^Rfl: 5 metFORMIN ER (GLUCOPHAGE XR) 500 mg 24 hr tablet^Take 2 tablets by mouth twice daily with meals.^Disp: 360 tablet^Rfl: 3 atorvastatin (LIPITOR) 80 mg tablet^Take 1 tablet by mouth daily at bedtime. For cholesterol.^Disp:90 tablet^Rfl: 3 metoprolol tartrate, short acting, (LOPRESSOR) 25 mg tablet^Take 25 mg by mouth twice daily.^Disp: ^Rfl: apixaban (ELIQUIS) 5 mg tab(s)^Take by mouth twice daily.^Disp: ^Rfl: fluticasone (FLONASE) 50 mcg/actuation nasal spray^Use 2 Sprays in each nostril once daily.^Disp: 3Bottle^Rfl: 3 FAMILY HISTORY Problem Relation Age of Onset Prostate Cancer Father Breast Cancer Mother 40 Coronary Artery Disease Mother pace maker Coronary Artery Disease Father triple bypass Social History Tobacco Use Smoking status: Never Smokeless tobacco: Never Substance Use Topics Alcohol use: Yes Comment: rarely Drug use: No PHYSICAL EXAM BP 118/56 (BP Site: Left Arm, BP Position: Sitting, BP Cuff Size: Large Adult) Pulse 85 Temp 36.6 C (97.9 F) Resp 16 Ht 157.5 cm (5' 2) Wt 88.9 kg (196 lb) SpO2 97% BMI 35.85 kg/m General Appearance: well appearing, in no acute distress, alert Pysch: mood and affect broad and appropriate Skin: Skin color, texture, turgor normal for age; no rashes noted Eyes: conjunctiva pink and moist, no icterus, sclera white, non-injected Oropharynx: Moist mucous membranes Lymph nodes: No cervical lymphadenopathy Lungs: Lungs clear to auscultation. No wheezing, rhonchi, rales. Heart: RRR without murmur, gallop, or rubs. Abdomen: Abdomen soft, non-tender. Bowel sounds normal. No masses, organomegaly. No CVA tenderness bilaterally. Extremities: No deformities, edema, skin discoloration, clubbing or cyanosis. Neurological: Gait normal. No focal neurological deficits. Sensation grossly intact. ASSESSMENT/PLAN: 1. Type 2 diabetes mellitus with hyperglycemia, without long-term current use of insulin ([facility]) - ICD9: 250.00, 790.29, ICD10: E11.65 (primary diagnosis) - Improving control, with reduction in A1c from 9.0 down to 7.9 in 09/27 - Continue current medications - Counseled on healthy diet and regular exercise - Discussed need for and benefit of weight loss. BMI 35.85 kg/(m^2) 2. Acute vaginitis - ICD9: 616.10, ICD10: N76.0 With a recurrence of symptoms, which improved with Rx of terconazole about 8 weeks ago. Refills provided per patient request, however if issue persists we will need to do vaginal cultures at upcomingvisit - TERCONAZOLE 0.8 % VAGINAL CREAM 3. Cerebrovascular accident (CVA), unspecified mechanism (HCC) - ICD9: 434.91, ICD10: I63.9 A little over 3 months out post CVA, which occurred 08/25/2022 No longer ambulating with walker and continues to get stronger over time 4. Dysuria - ICD9: 788.1, ICD10: R30.0 acute Urine dip and urine culture ordered to lab for patient to provide specimen at her convenience. - URINALYSIS, DIPSTICK ONLY - URINE CULTURE Advise 3-month follow-up routine issues Prescription instructions reviewed with patient as applicable. Potential red flag symptoms discussed with the patient. Reviewed appropriate action plan to take if red flag symptoms occur. Patient agreeable to treatment plan. Renetta Christie PA-C documented in this encounterCher[facility]08-28-2023 Miscellaneous Notes* Telephone Encounter - Grace Solano LPN - 11/02/2022 1:08 PM EDT Patient has been identified by name and date of : No Patient phones for refill(s): Requested Prescriptions Pending Prescriptions Disp Refills terconazole vaginal cream (TERAZOL) 0.8 % vaginal cream 20 g 0 Sig: Use 1 Applicator vaginally daily at bedtime. Date of last office visit in primary care: 10/14/22 Last 2 Encounter Wt Readings: Date: Wt: 10/14/2022 92.5 kg (204 lb) 09/18/2022 93.4 kg (206 lb) Previous labs/tests for medication: Not applicable Please advise. Thank you. Grace Solano LPN documented in this encounterCherrington Hospital08-09-2023 History of Present illness Narrative* Renetta Christie PA-C - 10/14/2022 1:31 PM EDT CC: Patient presents with: Follow Up: diabetes and urine- lab results, discuss jardiance HPI Britney Canada is a 77 year old female who presents today with for 4- week follow-up regarding labs and sugars. Patient was last evaluated on 09/18/2022. Patient is currently about 7 weeks status post CVA. Due to worsening glycemic control, with an A1c of 9.0 at prior visit, Jardiance was added to metformin. She is compliant with medication(s) and is tolerating med(s) without any side effects. Per her , she is watching her diet more than she ever has in the past. She is compliant with medication(s) and is tolerating med(s) without any side effects. Home blood sugar readings: Ranging from 145 to 186, varying with Hypoglycemia: No Patient's last HgA1C was Hemoglobin A1C (%) Date Value 10/09/2022 8.5 05/21/2022 8.5 03/25/2021 7.9 12/06/2020 8.3 Hemoglobin A1C (POCT) (%) Date Value 09/18/2022 9.0 11/21/2021 8.0 Repeat urine culture was also performed, which revealed persisting infection with E. coli greater than 100,000 CFU/mL-as a result, patient was started on course of Keflex. Thinks that PT helped significantly. Has since been dismissed from physical therapy for LE weakness. States her numbness and discomfort and right knee/right lower extremity is significantly improved at this time. REVIEW OF SYSTEMS CARDIOVASCULAR: Negative for chest pain, leg swelling and palpitations : Negative for dysuria, frequency and incontinence ENDOCRINE: See HPI NEURO: Negative All other systems negative. PAST MEDICAL HISTORY Diagnosis Date Abnormal mammogram, unspecified Diabetes mellitus without mention of complication PAST SURGICAL HISTORY Procedure Laterality Date CHOLECYSTECTOMY 1989 RPR UMBILICAL HRNA 5 YRS/> REDUCIBLE STEREOTACTIC CORE BIOPSY 10/18/08 RIGHT BREAST ALLERGIES Darvon [Propoxyphene Hcl] and Penicillins MEDICATIONS clopidogrel (PLAVIX) 75 mg tablet^Take 1 tablet by mouth once daily. Take 75 mg by mouth once daily.^Disp: 90 tablet^Rfl: 3 blood sugar diagnostic (BLOOD GLUCOSE TEST) test strip^Test blood sugar(s) 2 times daily. Dx: Type 2 DM - Uncontrolled E11.65 Insulin: No^Disp: 100 Strip^Rfl: 5 Lancets lancets^Test blood sugar(s) two times times daily. Dx: Other DM Code E11.65 Insulin: No^Disp: 100 Each^Rfl: 11 empagliflozin (JARDIANCE) 10 mg tablet^Take 1 tablet by mouth once daily. Take 1 tablet once daily in the morning^Disp: 30 tablet^Rfl: 0 levothyroxine (LEVOXYL) 50 mcg tablet^Take 1 tablet by mouth once daily. Take on empty stomach. ForThyroid^Disp: 30 tablet^Rfl: 5 metFORMIN ER (GLUCOPHAGE XR) 500 mg 24 hr tablet^Take 2 tablets by mouth twice daily with meals.^Disp: 360 tablet^Rfl: 3 atorvastatin (LIPITOR) 80 mg tablet^Take 1 tablet by mouth daily at bedtime. For cholesterol.^Disp:90 tablet^Rfl: 3 losartan (COZAAR) 50 mg tablet^Take 1 tablet by mouth once daily.^Disp: 90 tablet^Rfl: 3 cyanocobalamin 1,000 mcg/mL^Inject 1 mL intramuscularly once every month.^Disp: 1 mL^Rfl: 12 metoprolol tartrate, short acting, (LOPRESSOR) 25 mg tablet^Take 25 mg by mouth twice daily.^Disp: ^Rfl: apixaban (ELIQUIS) 5 mg tab(s)^Take by mouth twice daily.^Disp: ^Rfl: fluticasone (FLONASE) 50 mcg/actuation nasal spray^Use 2 Sprays in each nostril once daily.^Disp: 3Bottle^Rfl: 3 FAMILY HISTORY Problem Relation Age of Onset Prostate Cancer Father Breast Cancer Mother 40 Coronary Artery Disease Mother pace maker Coronary Artery Disease Father triple bypass Social History Tobacco Use Smoking status: Never Smokeless tobacco: Never Substance Use Topics Alcohol use: Yes Comment: rarely Drug use: No PHYSICAL EXAM BP 120/72 (BP Site: Left Arm, BP Position: Sitting, BP Cuff Size: Large Adult) Pulse 60 Temp 36.4 C (97.5 F) Resp 14 Ht 157.5 cm (5' 2) Wt 92.5 kg (204 lb) SpO2 96% BMI 37.31 kg/m General Appearance: well appearing, in no acute distress, alert Pysch: mood and affect broad and appropriate Skin: Skin color, texture, turgor normal for age Head: normocephalic, atraumatic Lymph nodes: No cervical lymphadenopathy Lungs: Lungs clear to auscultation. No wheezing, rhonchi, rales. Heart: RRR without murmur, gallop, or rubs. No ectopy Abdomen: Normal abdominal exam Extremities: No gross deformities, significant edema, skin discoloration, clubbing or cyanosis. Neurological: Gait slow, but steady. Ambulating with cane at this time. No focal neurological deficits. Sensation grossly intact. ASSESSMENT/PLAN: 1. Type 2 diabetes mellitus with hyperglycemia, without long-term current use of insulin (HCC) - ICD9: 250.00, 790.29, ICD10: E11.65 (primary diagnosis) -Reviewed recorded fasting sugars- improving control - Continue current medications (metformin) -Doing well on new medication, so we will go ahead and Increase empagliflozin (Jardiance) - Blood glucose monitoring on a 1-2 times daily schedule Will recheck A1c in 8 weeks - Counseled on healthy diet and regular exercise - Discussed need for and benefit of weight loss. BMI 37.31 kg/(m^2) - EMPAGLIFLOZIN 25 MG TABLET - HGB A1C 2. Essential hypertension - ICD9: 401.9, ICD10: I10 - Controlled - Recommend home blood pressure monitoring, to bring results to next visit - Encouraged sodium restriction, DASH or Mediterranean diet - Recommend regular aerobic exercise - LOSARTAN 50 MG TABLET 3. Vitamin B 12 deficiency - ICD9: 266.2, ICD10: E53.8 - CYANOCOBALAMIN (VIT B-12) 1,000 MCG/ML INJECTION SOLUTION 4. Acute vaginitis - ICD9: 616.10, ICD10: N76.0 With lingering vaginal itching after hospitalization. Seems to be exacerbated by a recent course ofantibiotics. Rx sent for terconazole topical. Discussed medication indications, proper use, and potential adverse effects. All questions and concerns addressed to patient satisfaction. - TERCONAZOLE 0.8 % VAGINAL CREAM Prescription instructions reviewed with patient as applicable. Potential red flag symptoms discussed with the patient. Reviewed appropriate action plan to take if red flag symptoms occur. Patient agreeable to treatment plan. RTC 4 weeks follow-up sugars, discuss labs Renetta Christie PA-C documented in this encounterCher[facility]07-31-2023 Discharge summary Author Bulmaro Brown [facility] October 05, 2022 2:13pm Note Date/Time October 05, 2022 2:13 pm [facility] Physical Therapy [facility] [address] [place] [address]. [address] [place] [address] / REHABILITATION SERVICES DISCHARGE SUMMARY MR#: [id number] Acct: [id number] Name: BRITNEY CANADA Rep #: [id number] : 1945 77 From: Bulmaro Brown DPT, OCS, CSCS Referring Dr.: LAURA MUSE Status: REG RCR Insurance: [facility] SEL[employer]Y INSURANCE Discharge Summary D/C summary: It has been my pleasure to treat BRITNEY CANADA referred by SUZIE MCKEON,with the diagnosis of R sided sciatica. for a total of 16 visit(s). Discharge Date: 10/05/22 Please see the following information for a summary of their discharge status. Subjective Subjective: Been pretty good for the last couple weeks. No back pain. Iqtqpsgw9g/day. using wh walker to get around. Going the right way. Hernandez ee doctor at some point. Pain LBP and R ant leg: Pain Intensity (Out of 10): 2 Overall Improvement % Improvement: 80 Objective Objective/Function: FGA is about normal for age today, walking around well without dizzyness or LOB. Weakness on L LE on step requires UE but otherwise does real well. Goals Goal 1:: Patient able to ambulate 300 feet without pain or hunching over Goal Progress: Goal Met Goal 2:: Patient feel 75% better in overall pain level at 2/10 at worst and manageable Goal Progress: Goal Met Goal 3:: I HEP strength adn ROm LB and posture and activitiy modification Goal Progress: Goal Met Goal 4:: oswestry score 10 or better Goal Progress: Progressing Goal 5:: FGA score of 22 and walk safely with cane I at home. Goal Progress: Goal Met Plan Plan: d/c to HEP D/C Information d/c sentence: If there are questions or concerns regarding this patient's physical therapy, please feel free to call me at [phone]. Thank you for the referral of thispatient. Sincerely, Bulmaro Brown DPT, OCS, CSCS Balance/Gait/Functional tests Balance/Special Test Scores Functional Gait Assessment Score: 25 % Disability: 16.6700 Oswestry Low Back Score: 12 <Electronically signed by Bulmaro Brown DPT, OCS, CSCS> 10/05/22 1413 CC: LAURA MUSE; Dr. Jones Velasquez MD ~ EBG Signed [facility] Work Phone: [phone]) 374-997607-18-2023 Miscellaneous Notes* Telephone Encounter - Renetta Christie PA-C - 09/22/2022 4:36 PM EDT Rx for Keflex sent. * Telephone Encounter - Josseline Pineda LPN - 09/22/2022 1:53 PM EDT TC to Britney, she is not having dysuria, polyuria, back pain, cramping, fever but d/t recent hospitalization she would like to have [facility] called into [facility]. Patient will check with the pharmacy in the next 24 hours for RX. Josseline Pineda LPN * Telephone Encounter - Renetta Christie PA-C - 09/21/2022 6:54 PM EDT Can you please call patient and double check she doesn't have any urinary symptoms? Her urine technically came back as a UTI. If she's not having any symptoms, that's fine-- but if she has ANY symptoms I'd recommend we treat her (especially given her recent hospitalization). If she does want to do the abx, please send back to me and I'll send it in. Renetta Christie PA-C documented in this encounterCherrington Hospital06-29-2023 History of Present illness Narrative* Astrid Muse, INSURANCE CLERK.FINISH CLEANER - 09/03/2022 1:09 PM EDT CC: Patient presents with: Follow Up: Seen at [facility] on Wednesday for stroke, was released Wednesday HPI Britney Canada is a 76 year old female who presents today for originally routine follow up [facility] focused on this new concern. Date of visit: 08/25/22-08/28/22 Reason for visit: was unable to talk or communicate Hospital course: MRI showing lacunar infarct, Echo with EF 65% Diagnosis: CVA Discharge: aspirin switched to plavix. To follow up with PCP and Neurology. Current symptoms: Still with some RLE weakness which she is receiving PT for and using a walker forambulation. Denies numbness, confusion, difficulty speaking, or difficulty swallowing. Still with a lot of fatigue since post hospitalization. Does report some bright red blood in her stools since starting plavix. Denies any known history of hemorrhoids. Also has noticed increased in urinary frequency since hosptialization. Denies chest pain, shortness of breath, fever, chills, dark or foul smelling urine, or edema. Previous history of occipital stroke so was seeing Dr. Lee, but not been seen in 2 years. LUQ tenderness noted on exam. Patient admits she has had sensitivity to LUQ for a long time and never mentioned this. Does have intermittent neause and vomtiing that has always obi attributed to her chronic pain. REVIEW OF SYSTEMS General: no fevers, no chills, no night sweats, no recurrent infections, no change in appetite, andno significant changes in weight Respiratory: no cough, no wheezing, no shortness of breath, no hemoptysis Cardiovascular: no chest pain, no chest pressure, no palpitations, and no swelling GI: See HPI : See HPI Neurologic: No headache, weakness, numbness, tingling, dizziness, memory loss, syncope. PAST MEDICAL HISTORY Diagnosis Date Abnormal mammogram, unspecified Diabetes mellitus without mention of complication PAST SURGICAL HISTORY Procedure Laterality Date CHOLECYSTECTOMY 1989 RPR UMBILICAL HRNA 5 YRS/> REDUCIBLE STEREOTACTIC CORE BIOPSY 10/18/08 RIGHT BREAST ALLERGIES Darvon [Propoxyphene Hcl] and Penicillins MEDICATIONS clopidogrel (PLAVIX) 75 mg tablet^Take 75 mg by mouth once daily.^Disp: ^Rfl: levothyroxine (LEVOXYL) 50 mcg tablet^Take 1 tablet by mouth once daily. Take on empty stomach. ForThyroid^Disp: 30 tablet^Rfl: 5 lidocaine (LIDODERM) 5 %^Apply 1 Patch as directed every [address] patch for 12 hours, removefor 12 hours prior to placing new patch. Location: right lower back.^Disp: 14 Patch^Rfl: 0 tiZANidine (ZANAFLEX) 2 mg tablet^Take 1 tablet by mouth every 8 hours as needed (muscle spasms).^Disp: 30 tablet^Rfl: 0 metFORMIN ER (GLUCOPHAGE XR) 500 mg 24 hr tablet^Take 2 tablets by mouth twice daily with meals.^Disp: 360 tablet^Rfl: 3 atorvastatin (LIPITOR) 80 mg tablet^Take 1 tablet by mouth daily at bedtime. For cholesterol.^Disp:90 tablet^Rfl: 3 losartan (COZAAR) 50 mg tablet^Take 1 tablet by mouth once daily.^Disp: 90 tablet^Rfl: 3 cyanocobalamin 1,000 mcg/mL^Inject 1 mL intramuscularly once every month.^Disp: 1 mL^Rfl: 12 metoprolol tartrate, short acting, (LOPRESSOR) 25 mg tablet^Take 25 mg by mouth twice daily.^Disp: ^Rfl: apixaban (ELIQUIS) 5 mg tab(s)^Take by mouth twice daily.^Disp: ^Rfl: fluticasone (FLONASE) 50 mcg/actuation nasal spray^Use 2 Sprays in each nostril once daily.^Disp: 3Bottle^Rfl: 3 benzonatate (TESSALON PERLES) 100 mg capsule^Take 1 capsule by mouth three times daily as needed for cough.^Disp: 60 capsule^Rfl: 2 aspirin, enteric coated (ASPIRIN, ENTERIC COATED) 81 mg EC tablet^Take 1 tablet by mouth once daily.^Disp: 90 tablet^Rfl: 3 (Patient not taking: Reported on 09/03/2022) cholecalciferol (VITAMIN D3) 2,000 unit tablet^Take 1 tablet by mouth once daily.^Disp: ^Rfl: 0 (Patient not taking: Reported on 07/13/2022) FAMILY HISTORY Problem Relation Age of Onset Prostate Cancer Father Breast Cancer Mother 40 Coronary Artery Disease Mother pace maker Coronary Artery Disease Father triple bypass Social History Tobacco Use Smoking status: Never Smokeless tobacco: Never Substance Use Topics Alcohol use: Yes Comment: rarely Drug use: No PHYSICAL EXAM BP 142/82 Pulse 104 Resp 16 Wt 92.7 kg (204 lb 6.4 oz) SpO2 93% BMI 37.39 kg/m General Appearance: well appearing, in no acute distress, alert Skin: Skin color, texture, turgor normal for age; Eyes: PERRLA, conjunctiva pink and moist, no icterus, sclera white, non-injected Neck: Thyroid normal size and symmetric without palpable nodules, Neck supple, No adenopathy Lymph nodes: No cervical lymphadenopathy and No supraclavicular lymphadenopathy Lungs: Lungs clear to auscultation. No wheezing, rhonchi, rales. Heart: RRR without murmur, gallop, or rubs. No ectopy Abdomen: Abdomen soft, Bowel sounds normal. No masses, organomegaly. LUQ with large amount of tenderness and grimacing. No rigidity, rebound pain, or guarding noted Extremities: No deformities, edema, skin discoloration, clubbing or cyanosis. Good capillary refill. Neurological: Gait with small step and needing assistance x1 to get up on exam table. Reflexes normal and symmetric. Sensation intact., speech normal, mental status intact, muscle tone normal, musclestrength normal except 4/5 to RLE BP CONTROLLED (<130/80) Never done URINE ALBUMIN:CREATININE RATIO due on 11/01/2020 ADVANCE DIRECTIVE DISCUSSION due on 03/08/2022 DEPRESSION ASSESSMENT due on 03/08/2022 HBA1C due on 08/21/2022 DIABETIC FOOT EXAM due on 11/21/2022 DILATED RETINAL EXAM due on 02/17/2023 LDL CHOLESTEROL due on 05/22/2023 ANNUAL PCP TEAM CHRONIC DISEASE VISIT due on 08/05/2023 COLORECTAL CANCER SCREENING due on 06/17/2025 DTAP,TDAP,TD(2 - Td or Tdap) due on 01/16/2030 BONE DENSITY Completed INFLUENZA Completed HEPATITIS C SCREENING Completed SHINGRIX VACCINE Completed COVID-19 VACCINE Completed PNEUMOCOCCAL: 65+ Completed DATA REVIEWED: Outside chart from [facility] reviewed. ASSESSMENT/PLAN: 1. History of recent hospitalization - ICD9: V13.9, ICD10: Z92.89 (primary diagnosis) - CVA, resolving well. Still with small amount of RLE weakness but getting PT for strengthening andusing a walker for ambulation. - continue with current medications. If patient found to be anemic may need to hold plavix - follow up in 2 weeks. 2. Cerebrovascular accident (CVA), unspecified mechanism (HCC) - ICD9: 434.91, ICD10: I63.9 As above - CONSULT TO NEUROLOGY 3. Weakness of right lower extremity - ICD9: 729.89, ICD10: R29.898 See #1 - CONSULT TO NEUROLOGY 4. Urinary frequency - ICD9: 788.41, ICD10: R35.0 - UA DIP, URINE (POC) - CBC + DIFF - COMP METABOLIC PANEL - URINALYSIS, WITH MICROSCOPIC - URINE CULTURE - URINE CULTURE 5. Other fatigue - ICD9: 780.79, ICD10: R53.83 - possible result of recent hospitalization or possible anemia from plavix. Depending on results orif this continues will need to see general surgery for possible colonoscopy - CBC + DIFF - COMP METABOLIC PANEL 6. Blood in stool - ICD9: 578.1, ICD10: K92.1 - CBC + DIFF - COMP METABOLIC PANEL 7. Left upper quadrant abdominal tenderness without rebound tenderness - ICD9: 789.62, ICD10: R10.812 - unsure on cause, found a CT in 2019 showing diffuse atrophy in pancreas. Will evaluate this further - COMP METABOLIC PANEL - LIPASE BLD - AMYLASE BLD 8. Nausea and vomiting, unspecified vomiting type - ICD9: 787.01, ICD10: R11.2 - LIPASE BLD - AMYLASE BLD Prescription instructions reviewed with patient as applicable. Potential red flag symptoms discussed with the patient. Reviewed appropriate action plan to take if red flag symptoms occur. Patient agreeable to treatment plan. Astrid Muse APRN.CNP documented in this encounterCherrington Hospital06-23-[address] Gregg [facility] August 28, 2022 12:25pm Note Date/Time August 28, 2022 12:2 5pm [facility] Medical Records Department [address] [place] [id number] Instructions for Home/Discharge Instructions 08/28/22 1224 MR#: [id number] Acct: [id number] Name: BRITNEY CANDAA Rep #:[id number] : 1945 76 From: Bea Gregg MD PCP: Dr. Jones Velasquez MD Status:ADM I N Discharge Instructions Diet Discharge Diet: Low fat / Low cholesterol and 1800 Calorie Control Diet Activity Discharge Activity: Return to Normal Activity Dressing / Incision Call your doctor if you observe: Fever of 101 or Higher, Numbness or Tingling, Shortness of breath, Swelling in the ankles, Chest pain, Increased palpitations (irregular heartbeat) and Uncontrolled pain Follow Up Care Test Results: Test results from this visit will be discussed in further detail at your follow- up appointment, if applicable. Discharge Plan Admission Admit Date/Time: 08/25/22 18:13 Primary Reason for Your Visit: Acute Ischemic Stroke Attending Provider: Bea Gregg Primary Care Provider: Jones Velasquez Consulting Providers: Christal Patiño Instructions Patient Instructions: Stroke: Taking Medicines, Stroke: Resources and Support, Discharge Instructions for Stroke Additional Instructions / Restrictions: ADDITIONAL FOLLOW-UP/INSTRUCTIONS/HOSPITAL SUMMARY REVIEW: CT was obtained and demonstrated no large vessel occlusion.? MRI of the brain with an acute lacunar infarct in the left basal ganglia with chronic emotional white matter changes and old right occipital infarct.? Neuro did review the MRI and felt that there was a spot concerning for possible embolic phenomenon despite being on aspirin and Eliquis with echo reviewed with EF 65% and severe mitral annular calcification with prior bubble study that was negative in 2019.?Thus the transesophageal echocardiogram was obtained 08/27/2022with normal LV size, normal LV systolic function, EF 60%, intact atrial septum with no source of embolus. Neurology recommended changing aspirin to Plavix and resuming Eliquis which was performed.? Follow-up requested with both your primary care physician and Neurology as noted. Please continue outpatient therapies as arranged. Discharge Orders/Prescriptions Prescriptions: New nystatin [Nyamyc] 100,000 unit/gram Powder 1 applic topical TID 14 Days Qty: 30 0RF Protocol: *Topical Application Instructions APPLICATION INSTRUCTIONS: To affected areas Rx Instructions: May d/c once fungal infection resolved. lidocaine 5 % Adhesive Patch,Medicated 1 patch topical DAILY 15 Days Qty: 15 0RF Protocol: *Topical Application Instructions APPLICATION INSTRUCTIONS: Lower back Rx Instructions: Place lidocaine patch to affected region. clopidogrel 75 mg Tablet 75 mg PO DAILY 30 Days Qty: 30 0RF Continued cholecalciferol (vitamin D3) 25 mcg (1,000 unit) capsule 25 mcg PO DAILY PRN (Reason: check with primary md) levothyroxine 50 mcg capsule 50 mcg PO DAILY tizanidine 2 mg capsule 2 mg PO Q8H PRN losartan 50 MG tablet 50 mg PO DAILY metformin 500 MG tablet See Rx Instructions .ROUTE .COMPLEX Rx Instructions: 500 mg tablet in Am and 1000 mg in pm Eliquis 5 mg tablet 5 mg PO BID atorvastatin 80 mg tablet 80 mg PO QHS metoprolol tartrate 25 mg tablet 25 mg PO BID Qty: 180 3RF Discontinued aspirin 81 MG tablet,chewable 81 mg PO DAILY@0800 Referrals / Follow Up: Jones Velasquez MD [Primary Care Provider] - (Follow-up in 3-5 days to review admission.) Fabiano Lee MD [Non-Staff -Ordering Privileges] - (Follow-up with Neurology at next open visit to review admission and establish.) Disposition Disposition (needs filled in before D/C Order can be placed): Home Health Service 08/28/22 1225<Electronically signed by Bea Gregg MD>Bea Gregg MD CC: Dr. Jones Velasquez MD; Dr. Christal Patiño MD ~ Signed [facility] Work Phone: 1(261) 206-931706-23-[address] Gregg [facility] August 28, 2022 3:45pm Note Date/Time August 28, 2022 9:22 am [facility] Medical Records Department [address] [place] [address] Discharge Summary 08/28/22 0921 MR#: [id number] Acct: [id number] Name: BRITNEY CANADA Rep #:[id number] : 1945 76 From: Bea Gregg MD PCP: Dr. Jones Velasquez MD Status:ADM I N Location: [place] [address] Providers Date of Admission: 08/25/22 Primary Care Physician: Dr. Jones Velasquez MD Reason For Visit: R/O CVA Diagnosis Discharge Diagnosis (1) Neurologic abnormality: Status: Acute Code(s): R29.818 - Other symptoms and signs involving the nervous system (2) CVA (cerebral vascular accident): Status: Chronic Code(s): I63.9 - Cerebral infarction, unspecified Qualifiers: CVA mechanism: embolism Laterality of affected vessel: right Precerebral and cerebral artery: posterior cerebral artery Qualified Code(s): I63.431 - Cerebral infarction due to embolism of right posterior cerebral artery (3) Type 2 diabetes mellitus: Status: Chronic Code(s): E11.9 - Type 2 diabetes mellitus without complications (4) Essential (primary) hypertension: Status: Chronic Code(s): I10 - Essential (primary) hypertension (5) Mitral valve annular calcification: Status: Chronic Code(s): I05.9 - Rheumatic mitral valve disease, unspecified (6) Paroxysmal atrial flutter: Status: Chronic Code(s): I48.92 - Unspecified atrial flutter (7) Hypothyroidism: Status: Acute Code(s): E03.9 - Hypothyroidism, unspecified Plan: Discharge diagnoses: #1. 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 Diabetes mellitus type 2 #3. Hypertension #4. Hyperlipidemia #5. Mild valvular heart disease #6. Paroxysmal atrial flutter/fibrillation #7. Hypothyroidism #8. CODE status: DNR-CCA, no intubation Medications at Discharge Home Medications losartan 50 mg tablet 50 mg PO DAILY high bp 03/15/19 metformin 500 mg tablet,extended release 24 hr See Rx Instructions .Route .COMPLEX dm 02/06/20 metoprolol tartrate 25 mg tablet 25 mg PO BID #180 tabs 12/01/21 cholecalciferol (vitamin D3) 25 mcg (1,000 unit) capsule 25 mcg PO DAILY PRN supplement 08/12/22 levothyroxine 50 mcg capsule 50 mcg PO DAILY thyroid 08/12/22 tizanidine 2 mg capsule 2 mg PO Q8H PRN Spasms 08/12/22 apixaban 5 mg tablet (Eliquis) 5 mg PO BID BLOOD THINNER 08/26/22 atorvastatin 80 mg tablet 80 mg PO QHS lower cholesterol 08/26/22 clopidogrel 75 mg tablet 75 mg PO DAILY 30 days #30 tabs 08/28/22 lidocaine 5 % topical patch 1 patch topical DAILY 15 days #15 ea 08/28/22 nystatin 100,000 unit/gram topical powder (Nyamyc) 1 applic topical TID 14 days #30 grams 08/28/22 Hospital Course Operations None Procedures EKG, Transesophageal Echo and Transthoracic echo Summary of Care Provided Minutes Spent on Discharge: 35 Hospital Course: The patient is a 76 y/o F w/ PMHx: Hx CVA on eliquis, PAF on Eliquis, HTN, HLD, Hypothyroidism, Obesity, Diabetes mellitus type II who presented to the [facility] ED on 08/28/22 with history of expressive aphasia not acting at her baseline severalhours prior to presentation. He did initially report that she was in her normalstate awakening at approximately 1030 with onset of abnormal behavior starting at 11:30 AM with eventual presentation with stroke alert called at 4 PM. Given timeline and on Eliquis she was not a candidate for tech to place. CT was obtained and demonstrated no large vessel occlusion. Patient mated to PCU, MRI of the brain with an acute lacunar infarct in the left basal ganglia with chronic emotional white matter changes and old right occipital infarct. Neuro did review the MRI and felt that there was a spot concerning for possible embolic phenomenon despite being on aspirin and Eliquis with echo reviewed with EF 65% and severe mitral annular calcification with prior bubble study that was negative in 2019. Neurology recommended changing aspirin to Plavix and resumingEliquis which was performed. They also recommended TORITO which was obtained on 08/27/2022 TORITO with normal LV size, normal LV systolic function, EF 60%, intact atrial septum with no source of embolus. Per neurology recommendation patient amenable for discharge on Eliquis and Plavix with follow-up with patient's neurologist Dr. Lee with whom she has been following. DAY OF DISCHARGE PROGRESS NOTE: Subjective: Patient without acute event overnight per self and nursing report. Patient tolerated oral intake well without any further issue. Patient's expressive aphasia has completely improved and she is near her baseline per selfand her spouse report. Patient denies fever, chills, nausea, emesis, abdominal pain, chest pain or dyspnea. Patient agreeable to discharge to home with ongoing outpatient home therapies. Patient will be discharged with follow-up with primary care physician within 3-5 days in addition to follow-up with nephrology to be arranged. Objective: T97.9, heart rate 67, BP 134/65, respiratory rate 16, 96% on room air. Physical Examination: General: awake, alert, oriented x 3 and cooperative, seated upright in the bedside chair, no acute distress, no evidence of any aphasia present. Skin: normal color, turgor, no icterus, cyanosis for mild bilateral extremity stasis skin changes. HEENT: AT/NC, EOMI, PERRLA, MMM. Lungs: Mildly diminished, greater assist, proper effort, no rales, ronchi or wheezing; Heart: Currently regular rate and rhythm; no gallop, rub audible. Abdomen: soft, obese, NTTP, ND, normal BS. Extremities: no cyanosis, no clubbing, see skin, mild bilateral peripheral edema. Neurological: patient awake, alert, oriented x 3; cognitive function appears intact upon questioning,; pupils equally reactive to light and accomodation; cranial nerves II-XII grossly normal, moving all 4 extremities, strength mildly global decreased, improved, expressive aphasia completely resolved. Psychiatric: affect appears normal, no acute evidence of depressive or anxiety feelings. Assessment and Plan: Please see hospital summary above. Weight / BMI Weight Weight: 207 lb 15.992 oz Body Mass Index (BMI) 38.0 ABG / Lab / Microbiology Data Result Diagrams: 08/28/22 06:17 08/28/22 06:17 Laboratory: Laboratory Results - last 24 hr 08/27/22 10:45: POC Glucose 202 H 08/27/22 15:56: POC Glucose 232 H 08/27/22 23:42: POC Glucose 222 H 08/28/22 06:17: WBC 9.8, RBC 4.06 L, Hgb 11.8 L, Hct 36.1 L, MCV 88.9, MCH 29.1,MCHC 32.7, RDW Std Deviation 44.4 H, RDW Coeff of Landy 13.6, Plt Count 431, MPV 9.8, Immature Gran % (Auto) 0.400, Neut % (Auto) 73.5 H, Lymph % (Auto) 18.5 L, Pecos % (Auto) 6.5, Eos % (Auto) 0.7, Baso % (Auto) 0.4, Absolute Neuts (auto) 7.2, Absolute Lymphs (auto) 1.81, Nucleated RBC % 0 08/28/22 06:17: Sodium 136, Potassium 3.7, Chloride 104, Carbon Dioxide 25.0, Anion Gap 7, BUN 15, Creatinine 0.68, Estim Creat Clear Calc 38.44, Est GFR (MDRD) Af Amer 108, Est GFR (MDRD) Non-Af 89, BUN/Creatinine Ratio 21.9 H, Glucose 203 H, Calcium 9.2, Total Bilirubin 0.80, AST 19, ALT 21, Alkaline Phosphatase 84, Total Protein 6.6, Albumin 2.9 L, Globulin 3.7, Albumin/Globulin Ratio 0.8 L 08/28/22 06:40: POC Glucose 205 H Radiography Diagnostic Testing: Radiology Impression Transesophageal Echocardiogram 08/26/22 14:46 Interpretation Summary Normal LV size. Left ventricular systolic function is normal. The estimated ejection fraction is 60 %. Intact atrial septum No source of embolus noted. Ordering Physician: Christal Patiño Referring Physician: Jones Velasquez Performed By: Elizabeth Fonseca RDCS Meaningful Use Info Meaningful Use Diagnoses (Choose all that apply): Ischemic CVA CVA Therapy Assessed for PT,OT and/or ST?: Yes Ischemic Stroke Antithrombotic order at d/c?: Yes Dx of Atrial fib/flutter?: Yes Anticoagulant at discharge?: Yes Statins at discharge?: Yes Primary Dx Acute Ischemic CVA?: Yes IV thrombolytic ordered during stay?: No Reason IV thrombolytic not ordered: Treatment not Indicated Discharge Plan Admission Admit Date/Time: 08/25/22 18:13 Primary Reason for Your Visit: Acute Ischemic Stroke Attending Provider: Bea Gregg Primary Care Provider: Jones Velasquez Consulting Providers: Christal Patiño Instructions Patient Instructions: Stroke: Taking Medicines, Stroke: Resources and Support, Discharge Instructions for Stroke Additional Instructions / Restrictions: ADDITIONAL FOLLOW-UP/INSTRUCTIONS/HOSPITAL SUMMARY REVIEW: CT was obtained and demonstrated no large vessel occlusion.? MRI of the brain with an acute lacunar infarct in the left basal ganglia with chronic emotional white matter changes and old right occipital infarct.? Neuro did review the MRI and felt that there was a spot concerning for possible embolic phenomenon despite being on aspirin and Eliquis with echo reviewed with EF 65% and severe mitral annular calcification with prior bubble study that was negative in 2019.?Thus the transesophageal echocardiogram was obtained 08/27/2022with normal LV size, normal LV systolic function, EF 60%, intact atrial septum with no source of embolus. Neurology recommended changing aspirin to Plavix and resuming Eliquis which was performed.? Follow-up requested with both your primary care physician and Neurology as noted. Please continue outpatient therapies as arranged. Discharge Orders/Prescriptions Prescriptions: New nystatin [Nyamyc] 100,000 unit/gram Powder 1 applic topical TID 14 Days Qty: 30 0RF Protocol: *Topical Application Instructions APPLICATION INSTRUCTIONS: To affected areas Rx Instructions: May d/c once fungal infection resolved. lidocaine 5 % Adhesive Patch,Medicated 1 patch topical DAILY 15 Days Qty: 15 0RF Protocol: *Topical Application Instructions APPLICATION INSTRUCTIONS: Lower back Rx Instructions: Place lidocaine patch to affected region. clopidogrel 75 mg Tablet 75 mg PO DAILY 30 Days Qty: 30 0RF Continued cholecalciferol (vitamin D3) 25 mcg (1,000 unit) capsule 25 mcg PO DAILY PRN (Reason: supplement) levothyroxine 50 mcg capsule 50 mcg PO DAILY tizanidine 2 mg capsule 2 mg PO Q8H PRN (Reason: Spasms) losartan 50 MG tablet 50 mg PO DAILY metformin 500 MG tablet See Rx Instructions .ROUTE .COMPLEX Rx Instructions: 500 mg tablet in Am and 1000 mg in pm Eliquis 5 mg tablet 5 mg PO BID atorvastatin 80 mg tablet 80 mg PO QHS metoprolol tartrate 25 mg tablet 25 mg PO BID Qty: 180 3RF Discontinued aspirin 81 MG tablet,chewable 81 mg PO DAILY@0800 Referrals / Follow Up: Jones Velasquez MD [Primary Care Provider] - (Follow-up in 3-5 days to review admission.) Fabiano Lee MD [Non-Staff -Ordering Privileges] - (Follow-up with Neurology at next open visit to review admission and establish.) Disposition Disposition (needs filled in before D/C Order can be placed): Home Health Service Charges/Coding Visit Charges Inpatient E&M: 63885 Disch Hosp >30min 08/28/22 1545 <Electronically signed by Bea Gregg MD> Cosigner Signature (if applicable): CC: Dr. Bea Gregg MD; Dr. Jones Velasquez MD~ Signed [facility] Work Phone: 1(234) 319-721406-22-[address] Patiño [facility] August 27, 2022 4:32pm Note Date/Time August 27, 2022 4:32 pm [facility] Medical Records Department [address] [address] Progress Note - Hospitalist 08/27/22 1630 MR#: [id number] Acct: [id number] Name: BRITNEY CANADA Rep #:[id number] : 1945 76 From: Christal Patiño MD PCP: Dr. 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 (08/25/22) Other symptoms and signs involving the nervous system (08/25/22) Subjective Subjective Feeling better today, reports that her sciatica and shaking of actually improvedas well Objective Data Objective Data Vital Signs: Vital Signs Temp Pulse Resp BP Pulse Ox O2 Del Method 97.3 F L 68 17 122/65 H 96 Room Air 08/27/22 15:28 08/27/22 15:28 08/27/22 15:28 08/27/22 15:28 08/27/22 15:28 08/27/22 15:28 Oxygen Delivery Method Room Air Weight: 94.347 kg Body Mass Index (BMI) 38.0 Intake & Output: Intake and Output for Last 24 Hours 08/25/22 08/26/22 08/27/22 23:59 23:59 23:59 Intake Total 120 / 120 920 / 920 10 10 Output Total 300 / 300 720 / 720 Balance -180 / -180 200 / 200 10 10 Lab / Micro Data Result Diagrams: 08/27/22 06:47 08/27/22 06:47 Labs: Laboratory Results - last 24 hr 08/26/22 17:28: POC Glucose 238 H 08/26/22 21:33: POC Glucose 175 H 08/27/22 05:35: POC Glucose 203 H 08/27/22 06:47: WBC 11.6 H, RBC 4.15 L, Hgb 11.9 L, Hct 37.0, MCV 89.2, MCH 28.7, MCHC 32.2, RDW Std Deviation 44.6 H, RDW Coeff of Landy 13.6, Plt Count 454 H, MPV 10.0, Immature Gran % (Auto) 0.400, Neut % (Auto) 71.7 H, Lymph % (Auto) 20.2, Pecos % (Auto) 6.6, Eos % (Auto) 0.8, Baso % (Auto) 0.3, Absolute Neuts (auto) 8.3 H, Absolute Lymphs (auto) 2.34, Nucleated RBC % 0 08/27/22 06:47: Sodium 140, Potassium 3.9, Chloride 105, Carbon Dioxide 27.0, Anion Gap 8, BUN 11, Creatinine 0.55, Estim Creat Clear Calc 38.44, Est GFR (MDRD) Af Amer 138, Est GFR (MDRD) Non-Af 114, BUN/Creatinine Ratio 20.0, Glucose 211 H, Calcium 8.8, Total Bilirubin 0.80, AST 18, ALT 19, Alkaline Phosphatase 73, Total Protein 6.3 L, Albumin 2.8 L, Globulin 3.5, Albumin/Globulin Ratio 0.8 L 08/27/22 10:45: POC Glucose 202 H 08/27/22 15:56: POC Glucose 232 H Physical Exam Narrative General: Alert, oriented, no apparent distress HEENT: Atraumatic, normocephalic Eyes: Anicteric, normal conjunctiva, extraocular movements grossly intact Neck: Supple Respiratory: Clear to auscultation bilaterally, normal respiratory effort Cardiovascular: Regular rate and rhythm GI: Soft, nontender, nondistended Extremities: No edema Musculoskeletal: Moving all extremities Neuro: No overt focal neurological deficits Skin: No rashes appreciated Psych: Cooperative Assessment & Plan Assessment/Plan (1) Neurologic abnormality: (2) CVA (cerebral vascular accident): QUALIFIERS: CVA mechanism: embolism Precerebral and cerebral artery: posterior cerebral artery Laterality of affected vessel: right Qualified Code(s): I63.431 - 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 It was recommended she be admitted and to continue aspirin 81 mg and obtain MRI and to hold Eliquis, can consider restarting at 48 hours pending findings -asa, statin -Echo w/ bubble study -PT/OT/Speech eval -Hold BP medications to allow for permissive hypertension for 24 hours unless SBP greater than 220 or DBP greater than 120 or until stroke is ruled out -08/26: Patient had MRI that read as acute lacunar infarct in the left basal ganglia with chronic involutional white matter changes and old right occipital infarct. Telemetry neuro consulted and when they reviewed the MRI they felt that it was outside of the basal ganglia and in a spot concerning for embolic phenomenon despite her being on aspirin and Eliquis. Discussed the echocardiogram which showed EF of 65% with severe mitral annular calcification, did not comment on bubble study however on further review she did have previous negative bubble study in 2019. Neurology recommended changing aspirin to Plavixand restarting Eliquis this evening. They also recommended improving glycemic control over the long-term basis to help with risk factor modification and they recommended a TORITO to better assess the valves and to search for any cardioembolic source. -08/27: For TORITO today, results still pending. If no results requiring acute intervention and patient swallowing well and stable may be able to discharge tomorrow #History of CVA -History of ischemic right occipital cortical stroke in February 2020 -Follows with Dr. Lee -See above #Chronic back pain -Tylenol and oxycodone. Pain with lidocaine patch topical -Follows with Dr. Serra on outpatient basis #Paroxysmal atrial flutter -Per cardiology notes this was seen on a previous 30-day monitor -On metoprolol, holding Eliquis, presently normal sinus rhythm -Troponins within normal limits as well on arrival #Hypertension -Permissive hypertension as above #Hypothyroidism -Continue Synthroid #Type 2 diabetes mellitus -Glucose checks and sliding scale insulin -We will need to escalate glucose control upon discharge #DVT ppx: SCDs, resuming Eliquis Christal Patiño MD Time spent in the patient's overall evaluation,decision-making process, review of diagnostic data, adjustment of management, discussion with other providers, nursing nursing and ancillary staff involved in patient's care documentation, 36minutes Charges/Coding Visit Charges Inpatient E&M: 40256 Subs Hosp L3 08/27/22 1632 <Electronically signed by Christal Patiño MD> Cosigner Signature (if applicable): CC: ~ Signed [facility] Work Phone: 1(666) 427-989806-21-[address] Patiño [facility] August 26, 2022 2:56pm Note Date/Time August 26, 2022 2:56 pm [facility] Medical Records Department [address] [place] [address] Progress Note - Hospitalist 08/26/22 1445 MR#: [id number] Acct: [id number] Name: BRITNEY CANADA Rep #:[id number] : 1945 76 From: Christal Patiño MD PCP: Dr. 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 (08/25/22) Other symptoms and signs involving the nervous system (08/25/22) Subjective Subjective Patient doing better today but is sleepy tired Objective Data Objective Data Vital Signs: Vital Signs Temp Pulse Resp BP Pulse Ox O2 Del Method 97.2 F L 73 16 133/55 H 98 Room Air 08/26/22 11:26 08/26/22 11:57 08/26/22 11:26 08/26/22 11:57 08/26/22 11:26 08/26/22 11:26 Oxygen Delivery Method Room Air Weight: 94.347 kg Body Mass Index (BMI) 38.0 Intake & Output: Intake and Output for Last 24 Hours 06/19/23 06/20/23 06/21/23 23:59 23:59 23:59 Intake Total 120 / 120 240 / 240 Output Total 300 / 300 600 / 600 Balance -180 / -180 -360 / -360 Lab / Micro Data Result Diagrams: 08/26/22 06:05 08/26/22 06:05 Labs: Laboratory Results - last 24 hr 08/25/22 16:00: WBC 14.1 H, RBC 4.35, Hgb 12.4, Hct 38.2, MCV 87.8, MCH 28.5, MCHC 32.5, RDW Std Deviation 43.8, RDW Coeff of Landy 13.7, Plt Count 503 H, MPV 10.0, Immature Gran % (Auto) 0.600, Neut % (Auto) 68.9, Lymph % (Auto) 23.7, Pecos % (Auto) 6.2, Eos % (Auto) 0.2, Baso % (Auto) 0.4, Absolute Neuts (auto) 9.7 H, Absolute Lymphs (auto) 3.34, Nucleated RBC % 0 08/25/22 16:00: PT 14.4, INR 1.1, APTT 30.0 08/25/22 16:00: Sodium 134 L, Potassium 3.9, Chloride 101, Carbon Dioxide 25.0, Anion Gap 8, BUN 12, Creatinine 0.83, Est GFR (MDRD) Af Amer 86, Est GFR (MDRD) Non-Af 71, BUN/Creatinine Ratio 14.5, Glucose 334 H, Calcium 9.3, Troponin I High Sens 11 08/25/22 16:29: POC Glucose 316 H 08/25/22 23:05: POC Glucose 204 H 08/26/22 01:30: Urine Color Yellow, Urine Clarity Clear, Urine pH 5.0, Ur Specific Bricelyn 1.010, Urine Protein 30 H, Urine Glucose (UA) 250 H, Urine Ketones Negative, Urine Occult Blood 10 H, Urine Nitrite Positive H, Urine Bilirubin Negative, Urine Urobilinogen Normal, Ur Leukocyte Esterase 500 H, Urine RBC 0-5 SEEN, Urine WBC 10-25 SEEN, Ur Squamous Epith Cells 0 SEEN, Urine Bacteria 2+, Urine Mucus 0 SEEN 08/26/22 06:05: Sodium 137, Potassium 3.9, Chloride 103, Carbon Dioxide 27.0, Anion Gap 7, BUN 9, Creatinine 0.63, Estim Creat Clear Calc 38.44, Est GFR (MDRD) Af Amer 118, Est GFR (MDRD) Non-Af 97, BUN/Creatinine Ratio 14.2, [id number] H, Calcium 8.6, Total Bilirubin 0.80, AST 14 L, ALT 15, Alkaline [id number], Total Protein 6.2 L, Albumin 2.8 L, Globulin 3.4, Albumin/Globulin Ratio 0.8L, Triglycerides 112, Cholesterol 112, LDL Cholesterol 53, VLDL Cholesterol 22, HDL Cholesterol 37 L, TSH 1.47 08/26/22 06:05: WBC 11.0, RBC 3.94 L, Hgb 11.2 L, Hct 34.9 L, MCV 88.6, MCH 28.4, MCHC 32.1, RDW Std Deviation 44.3 H, RDW Coeff of Landy 13.6, Plt Count 440,MPV 10.0, Immature Gran % (Auto) 0.500, Neut % (Auto) 65.8, Lymph % (Auto) 26.1,Pecos % (Auto) 6.8, Eos % (Auto) 0.3, Baso % (Auto) 0.5, Absolute Neuts (auto) 7.3, Absolute Lymphs (auto) 2.87, Nucleated RBC % 0 08/26/22 07:11: POC Glucose 201 H 08/26/22 12:01: POC Glucose 316 H Radiography Diagnostic Testing: Radiology Impression Brain CT 08/25/22 15:52 IMPRESSION: 1. No acute intracranial abnormality. There has been no change from the reference examination. 2. Stable remote right occipital infarct. There are stable underlying senescent changes with small vessel ischemia. 3. Aspects score 10. Electronically Signed: César Segura MD at 16:06 EDT , ADDENDUM: 08/25/22 7684 IMPRESSION: 1. No acute intracranial abnormality. There has been no change from the reference examination. 2. Stable remote right occipital infarct. There are stable underlying senescent changes with small vessel ischemia. 3. Aspects score 10. N.B. : The above Results were Read Back by César Segura MD to Tejas Lew MD, and understanding confirmed on 08/25/2022 16:07:57 (ET). Electronically Signed: César Segura MD at 16:06 EDT , Head/Neck CTA 08/25/22 15:52 IMPRESSION: Negative CTA carotid and CTA brain. Electronically Signed: César Segura MD at 16:23 EDT , ADDENDUM: 08/25/22 1632 IMPRESSION: Negative CTA carotid and CTA brain. N.B. : The above Results were Read Back by César Segura MD to Tejas Lew MD, and understanding confirmed on 08/25/2022 16:25:55 (ET). Electronically Signed: César Segura MD at 16:23 EDT , Chest X-Ray 08/25/22 16:42 IMPRESSION: No radiographic evidence of acute cardiopulmonary disease. Electronically Signed: César Segura MD at 17:15 EDT , Brain MRI 08/25/22 18:28 IMPRESSION: Acute lacunar infarct in the left basal ganglia. Chronic involutional and white matter changes. Old right occipital infarct. Electronically Signed: Denisse Corcoran MD at 11:34 EDT , ADDENDUM: 08/26/22 1154 IMPRESSION: Acute lacunar infarct in the left basal ganglia. Chronic involutional and white matter changes. Old right occipital infarct. N.B. : Gregoria Griffin RN, confirmed on 08/26/2022 11:47:58 (ET) that the healthcare facility has received the radiology report. Electronically Signed: Denisse Corcoran MD at 11:34 EDT Reading Location ID and State: [facility] / [place] Tel , Service support , Echocardiogram 08/25/22 18:28 Interpretation Summary The left ventricular ejection fraction is 65 %. Severe mitral annular calcification. The mitral valve chordae are thickened and/or calcified. Ordering Physician: Christal Patiño Referring Physician: JONES VELASQUEZ Performed By: Wanda Lee RDCS Physical Exam Narrative General: Alert, oriented, no apparent distress, better able to answer questions today HEENT: Atraumatic, normocephalic Eyes: Anicteric, normal conjunctiva, extraocular movements grossly intact Neck: Supple Respiratory: Clear to auscultation bilaterally, normal respiratory effort Cardiovascular: Regular rate and rhythm GI: Soft, nontender, nondistended Extremities: No edema Musculoskeletal: Moving all extremities Neuro: No overt focal neurological deficits Skin: No rashes appreciated Psych: Cooperative Assessment & Plan Assessment/Plan (1) Neurologic abnormality: (2) CVA (cerebral vascular accident): QUALIFIERS: CVA mechanism: embolism Precerebral and cerebral artery: posterior cerebral artery Laterality of affected vessel: right Qualified Code(s): I63.431 - 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 It was recommended she be admitted and to continue aspirin 81 mg and obtain MRI and to hold Eliquis, can consider restarting at 48 hours pending findings -asa, statin -Echo w/ bubble study -PT/OT/Speech eval -Hold BP medications to allow for permissive hypertension for 24 hours unless SBP greater than 220 or DBP greater than 120 or until stroke is ruled out -08/26: Patient had MRI that read as acute lacunar infarct in the left basal ganglia with chronic involutional white matter changes and old right occipital infarct. Telemetry neuro consulted and when they reviewed the MRI they felt that it was outside of the basal ganglia and in a spot concerning for embolic phenomenon despite her being on aspirin and Eliquis. Discussed the echocardiogram which showed EF of 65% with severe mitral annular calcification, did not comment on bubble study however on further review she did have previous negative bubble study in 2019. Neurology recommended changing aspirin to Plavixand restarting Eliquis this evening. They also recommended improving glycemic control over the long-term basis to help with risk factor modification and they recommended a TORITO to better assess the valves and to search for any cardioembolic source. #History of CVA -History of ischemic right occipital cortical stroke in February 2020 -Follows with Dr. Lee -See above #Chronic back pain -Tylenol and oxycodone. Pain with lidocaine patch topical -Follows with Dr. Serra on outpatient basis #Paroxysmal atrial flutter -Per cardiology notes this was seen on a previous 30-day monitor -On metoprolol, holding Eliquis, presently normal sinus rhythm -Troponins within normal limits as well on arrival #Hypertension -Permissive hypertension as above #Hypothyroidism -Continue Synthroid #Type 2 diabetes mellitus -Glucose checks and sliding scale insulin -We will need to escalate glucose control upon discharge #DVT ppx: SCDs, resuming Eliquis Christal Patiño MD Time spent in the patient's overall evaluation,decision-making process, review of diagnostic data, adjustment of management, discussion with other providers, nursing nursing and ancillary staff involved in patient's care documentation, 38minutes Charges/Coding Visit Charges Inpatient E&M: 57574 Subs Hosp L3 08/26/22 1456 <Electronically signed by Christal Patiño MD> Cosigner Signature (if applicable): CC: ~ Signed [facility] Work Phone: 1(937) 174-539106-20-[address] Lew [facility] August 25, 2022 7:32pm Note Date/Time August 25, 2022 4:02 pm [facility] Medical Records Department [address] [place] [address] Emergency Department Summary 08/25/22 MR#: [id number] Acct: [id number] Name: BRITNEY CANADA Rep #:[id number] : 1945 76 From: Tejas Lew MD PCP: Dr. Jones Velasquez MD Status:ADM I N Location: [place] [address] HPI History of Present Illness Chief Complaint: Neuro S/Sx Informant: EMS Narrative Narrative: Patient was initially met in the [facility] with EMS. She was awake alert she could tell me her age location move arms legs and smile. Reportedly last well time was this morning. We have her off the CT scan at this time to expedite care. Detailed eval is done as the patient comes back in reviewing information on the computer in the meantime. [facility] Medical History CVA (cerebral vascular accident) (02/06/20) Essential (primary) hypertension History of non-ST elevation myocardial infarction (NSTEMI) (02/06/20) Hyperlipidemia Mitral valve annular calcification Nonobstructive atherosclerosis of coronary artery Nonsustained paroxysmal ventricular tachycardia Paroxysmal atrial flutter Type 2 diabetes mellitus Visual changes Home Medications losartan 50 mg tablet 50 mg PO DAILY 03/15/19 [History Last Taken 04/01/20] metformin 500 mg tablet,extended release 24 hr 1,000 mg PO DINNER dm 02/06/20 [History Last Taken 03/30/20] aspirin 81 mg chewable tablet 81 mg PO DAILY@0800 ##30 12/03/20 [Rx Last Taken 04/01/20] mecobalamin (vitamin B12) 10,000 mcg solution for injection 1,000 mcg IM [id number]/20 [History Last Taken Unknown] atorvastatin 80 mg tablet 80 mg PO QHS #90 tabs 08/12/21 [Rx Last Taken Unknown] metoprolol tartrate 25 mg tablet 25 mg PO BID #180 tabs 12/01/21 [Rx Last Taken Unknown] apixaban 5 mg tablet (Eliquis) 5 mg PO BID #180 tabs 08/12/22 [Rx Last Taken Unknown] benzonatate 100 mg capsule 100 mg PO BID-TID PRN 08/12/22 [History Last Taken Unknown] cholecalciferol (vitamin D3) 25 mcg (1,000 unit) capsule 25 mcg PO DAILY PRN 08/12/22 [History Last Taken Unknown] levothyroxine 50 mcg capsule 50 mcg PO DAILY 08/12/22 [History Last Taken Unknown] tizanidine 2 mg capsule 2 mg PO Q8H PRN 08/12/22 [History Last Taken Unknown] Allergy/AdvReac Type Severity Reaction Status Date / Time Penicillins Allergy Rash Verified 08/12/22 10:36 propoxyphene [From Darvon] AdvReac Nausea/Vom/ Verified 08/12/22 10:36 Diarrhea Family History Father Myocardial infarction Brother Myocardial infarction Mother CVA (cerebral vascular accident) Heart disease Grandmother Myocardial infarction Uncle Myocardial infarction Surgical History History of cholecystectomy History of hernia repair History of left heart catheterization (04/01/20) Social History Smoking Status: Never smoker Electronic Cigarette Use: not used second hand exposure: Yes alcohol intake: current alcohol intake frequency: holidays/special occasions only Alcohol type: wine substance use type: does not use ROS ROS ED Constitutional Constitutional ED: Denies chills or fever(s) Eyes Eyes: Reports other Details: Has had some vision problems since her last stroke 3 years ago. No apparent acute problem. ENT ENT ED: Denies rhinorrhea Cardiovascular Cardiovascular: Denies chest pain or palpitations Respiratory/Chest Respiratory/Chest: Denies cough or dyspnea Gastrointestinal Gastrointestinal: Denies diarrhea or vomiting Musculoskeletal Musculoskeletal: Denies arthralgias Integumentary Denies rash Neurologic Neurologic: Reports other Details: See history of present illness ; Denies headache(s) Hematologic/Lymphatic Hematologic/Lymphatic: Reports easy bleeding, easy bruising and other Details: Likely last took her Eliquis last night. But could have taken it this morning. Allergic/Immunologic Allergic/Immunologic ED: Denies urticaria EXAM Physical Exam Narrative Exam Narrative: Patient is awake and alert. She is a little bit slow to answer questions though. HEENT shows no trauma or asymmetry. She can close eyes and smile equally. Neck shows no bruit. No meningismus. Heart sounds are regular. I hear no murmur. Breath sounds are easy unlabored breathing and clear sounds. Abdomen is mildly obese but nontender. Extremities show no trauma. Neurologically patient is awake and alert. She knows she is in a hospital. Shecannot tell me the date birthday of her or the president [facility]. She hasno focal or lateralizing weakness but she appears to have some expressive aphasia. I believe her sensation is intact but she has trouble saying left or right. She will say yes anytime I touch an area. Please see NIH. Const Vital Signs: 08/25/22 16:10 08/25/22 16:00 08/25/22 16:34 Temperature 98.5 F 98.3 F Temperature Source Oral Oral Pulse Rate 95 93 89 Respiratory Rate 26 H 16 16 Blood Pressure 137/53 H 155/88 H 166/84 H Blood Pressure Mean 81 110 111 Pulse Ox 98 98 Oxygen Delivery Method Room Air Room Air 08/25/22 17:16 08/25/22 17:00 08/25/22 17:00 Temperature Temperature Source Pulse Rate 88 88 Respiratory Rate 16 16 Blood Pressure 128/74 H 148/77 H Blood Pressure Mean 92 100 Pulse Ox 98 99 Oxygen Delivery Method Room Air Room Air 08/25/22 18:12 08/25/22 18:12 Temperature 98.9 F Temperature Source Oral Pulse Rate 89 89 Respiratory Rate 20 H 20 H Blood Pressure 96/60 96/60 Blood Pressure Mean 72 72 Pulse Ox 96 96 Oxygen Delivery Method Room Air Room Air NIHSS NIHSS Initial: 1a Level of Consciousness: 0 1b LOC Questions (Score 2 if aphasic/stupor): 2 1c LOC Commands (Only score 1st attempt): 0 2 Best Gaze (If aphasic, use reflexive mvmts.): 2 3 Visual: 0 (Very difficult to assess but no gross apparent visual field cut.) 4 Facial Palsy: 0 5 Motor Arm Right (UN = amputation/fusion): 0 5 Motor Arm Left: 0 6 Motor Leg Right: 0 6 Motor Leg Left: 0 7 Limb ataxia (Only + if out of proportion): 0 8 Sensory (Aphasia/stupor=0 or 1, coma=2): 0 9 Best Language: 2 10 Dysarthria (mute, coma=2, intubated=UN): 0 11 Extinction and Inattention (only scored if +): 0 Total Score: 6 MDM MDM MDM Narrative Medical decision making narrative: My independent her potation the patient's CT of the head without contrast showedsome right occipital decreased density. But no acute bleed. Final reading is no acute and no interval change. Final reading by radiology of the CTA also shows no vessel cutoff. Patient CBC shows nonspecific elevation of white count at 14.1. Hemoglobin platelets are normal. Patient's coagulation studies are normal. Patient's electrolytes are normal other than her glucose is high at 334. She saul metformin. SOC neurology recommends admission and work-up. I rechecked the patient. She is speaking better but still having problems. She is not back to baseline. I discussed case with the hospitalist and patient will be admitted. Lab Data Attestation: I reviewed the patient's lab results. Labs: Laboratory Results - last 24 hr 08/25/22 08/25/22 08/25/22 16:00 16:00 16:00 WBC 14.1 H RBC 4.35 Hgb 12.4 Hct 38.2 MCV 87.8 MCH 28.5 MCHC 32.5 RDW Std Deviation 43.8 RDW Coeff of Landy 13.7 Plt Count 503 H MPV 10.0 Immature Gran % (Auto) 0.600 Neut % (Auto) 68.9 Lymph % (Auto) 23.7 Pecos % (Auto) 6.2 Eos % (Auto) 0.2 Baso % (Auto) 0.4 Absolute Neuts (auto) 9.7 H Absolute Lymphs (auto) 3.34 Nucleated RBC % 0 PT 14.4 INR 1.1 APTT 30.0 Sodium 134 L Potassium 3.9 Chloride 101 Carbon Dioxide 25.0 Anion Gap 8 BUN 12 Creatinine 0.83 Est GFR (MDRD) Af Amer 86 Est GFR (MDRD) Non-Af 71 BUN/Creatinine Ratio 14.5 Glucose 334 H Calcium 9.3 Troponin I High Sens 11 POC Glucose 08/25/22 16:29 WBC RBC Hgb Hct MCV MCH MCHC RDW Std Deviation RDW Coeff of Landy Plt Count MPV Immature Gran % (Auto) Neut % (Auto) Lymph % (Auto) Pecos % (Auto) Eos % (Auto) Baso % (Auto) Absolute Neuts (auto) Absolute Lymphs (auto) Nucleated RBC % PT INR APTT Sodium Potassium Chloride Carbon Dioxide Anion Gap BUN Creatinine Est GFR (MDRD) Af Amer Est GFR (MDRD) Non-Af BUN/Creatinine Ratio Glucose Calcium Troponin I High Sens POC Glucose 316 H Radiography Diagnostic Testing: Clinical Impression(s) from Imaging Studies Brain CT 08/25/22 15:52 IMPRESSION: 1. No acute intracranial abnormality. There has been no change from the reference examination. 2. Stable remote right occipital infarct. There are stable underlying senescent changes with small vessel ischemia. 3. Aspects score 10. Electronically Signed: César Segura MD at 16:06 EDT , ADDENDUM: 08/25/22 1614 IMPRESSION: 1. No acute intracranial abnormality. There has been no change from the reference examination. 2. Stable remote right occipital infarct. There are stable underlying senescent changes with small vessel ischemia. 3. Aspects score 10. N.B. : The above Results were Read Back by César Segura MD to Tejas Lew MD, and understanding confirmed on 08/25/2022 16:07:57 (ET). Electronically Signed: César Segura MD at 16:06 EDT , Head/Neck CTA 08/25/22 15:52 IMPRESSION: Negative CTA carotid and CTA brain. Electronically Signed: César Segura MD at 16:23 EDT , ADDENDUM: 08/25/22 1632 IMPRESSION: Negative CTA carotid and CTA brain. N.B. : The above Results were Read Back by César Segura MD to Tejas Lew MD, and understanding confirmed on 08/25/2022 16:25:55 (ET). Electronically Signed: César Segura MD at 16:23 EDT , Chest X-Ray 08/25/22 16:42 IMPRESSION: No radiographic evidence of acute cardiopulmonary disease. Electronically Signed: César Segura MD at 17:15 EDT , EKG Initial EKG: Comments: My independent interpretation the patient's EKG shows a normal sinus rhythm with overall rate at 95. No sign of dysrhythmia or atrial fibrillation. No acute ST elevation or depression. No. MO interval, QRS duration and QTc are all normal. Management Discussion w/another healthcare provider: Hospitalist and It Infrastructure Manager Discharge Plan Dx/Rx/DC Orders Clinical Impression: CVA (cerebral vascular accident), Expressive aphasia, Receptive aphasia, History of stroke, History of diabetes mellitus, History of hypertension Disposition Disposition: Acute Care [facility] Discharge Date/Time: 08/25/22 18:42 What to do if you have Problems For any increased pain, shortness of breath, bleeding, nausea or vomiting, chestpain, or any unexpected problems, contact your Primary Care Provider. Call [facility] ([phone]) or report to the closest Emergency Room. Call 911 if necessary. 08/25/221931 <Electronically signed by Tejas Lew MD> Cosigner Signature (if applicable): CC: Dr. Jones Velasquez MD ~ Signed [facility] Work Phone: 1(503) 732-723006-20-2023 History and physical note Author Dr. Patiño [facility] August 25, 2022 6:33pm Note Date/Time August 25, 2022 6:23 pm [facility] Medical Records Department [address] [place] [address] H&P Exam - Hospitalist 08/25/221812 MR#: [id number] Acct: [id number] Name: BRITNEY CANADA Rep #:[id number] : 1945 76 From: Christal Patiño MD PCP: Dr. Jones Velasquez MD Status:ADM I N Location: [place] [address] HPI - General General Date of Admission: 08/25/22 Date of Service: 08/25/22 Chief Complaint: Difficulty expressing words HPI Narrative BRITNEY CANADA, is a 76 F with a history of CVA 3 years ago, paroxysmal atrial flutter on Eliquis, hypertension, thyroidism type 2 diabetes who scented to [facility] 08/25/2022 due to difficulty getting her words out andnot acting normal for several hours. History provided primarily by her due to patient's difficulty answering questions and her frustration in doing so. He was in her usual health and woke up at 1030 in her usual health but at 1130 she was not acting like her usual self and responding appropriately so ultimately she was brought to the emergency department as a stroke call at 4 PM. The timeline as well as being on Eliquis she was not deemed a candidate fortenecteplase and had no large vessel occlusion. Hospitalist consulted for admission. Patient reportedly had slightly improved as far as understanding andresponding however still had difficulty significant difficulty at times though in part seemed worsened by frustration. Patient having back pain which is chronic and had injection 1 week ago which was only minimally helpful but had not been complaining of any focal complaints leading up to current event. Has possible slight headache, was unable to comment on changes in vision but does have some chronic spots with decreased vision after her old stroke. No chest pain or shortness of breath, patient answered I do not know to multiple questions however did not endorse any other focal or specific complaints. [facility] Medical History CVA (cerebral vascular accident) (02/06/20) Essential (primary) hypertension History of non-ST elevation myocardial infarction (NSTEMI) (02/06/20) Hyperlipidemia Mitral valve annular calcification Nonobstructive atherosclerosis of coronary artery Nonsustained paroxysmal ventricular tachycardia Paroxysmal atrial flutter Type 2 diabetes mellitus Visual changes Home Medications losartan 50 mg tablet 50 mg PO DAILY 03/15/19 [History Last Taken 04/01/20] metformin 500 mg tablet,extended release 24 hr 1,000 mg PO DINNER dm 02/06/20 [History Last Taken 03/30/20] aspirin 81 mg chewable tablet 81 mg PO DAILY@0800 ##30 02/08/20 [Rx Last Taken 04/01/20] mecobalamin (vitamin B12) 10,000 mcg solution for injection 1,000 mcg IM [id number]/20 [History Last Taken Unknown] atorvastatin 80 mg tablet 80 mg PO QHS #90 tabs 08/12/21 [Rx Last Taken Unknown] metoprolol tartrate 25 mg tablet 25 mg PO BID #180 tabs 12/01/21 [Rx Last Taken Unknown] apixaban 5 mg tablet (Eliquis) 5 mg PO BID #180 tabs 08/12/22 [Rx Last Taken Unknown] benzonatate 100 mg capsule 100 mg PO BID-TID PRN 08/12/22 [History Last Taken Unknown] cholecalciferol (vitamin D3) 25 mcg (1,000 unit) capsule 25 mcg PO DAILY PRN 08/12/22 [History Last Taken Unknown] levothyroxine 50 mcg capsule 50 mcg PO DAILY 08/12/22 [History Last Taken Unknown] tizanidine 2 mg capsule 2 mg PO Q8H PRN 08/12/22 [History Last Taken Unknown] Allergy/AdvReac Type Severity Reaction Status Date / Time Penicillins Allergy Rash Verified 08/12/22 10:36 propoxyphene [From Darvon] AdvReac Nausea/Vom/ Verified 08/12/22 10:36 Diarrhea Family History Father Myocardial infarction Brother Myocardial infarction Mother CVA (cerebral vascular accident) Heart disease Grandmother Myocardial infarction Uncle Myocardial infarction Surgical History History of cholecystectomy History of hernia repair History of left heart catheterization (04/01/20) Social History Smoking Status: Never smoker Electronic Cigarette Use: not used second hand exposure: Yes alcohol intake: current alcohol intake frequency: holidays/special occasions only Alcohol type: wine substance use type: does not use ROS ROS Narrative Patient had difficulty with multiple ROS questions however denied chest pain or shortness of breath, does have back pain which is chronic and a slight headache,did not endorse any other specific complaints Vital Signs Vital Signs Vital Signs: 08/25/22 16:10 08/25/22 16:00 08/25/22 16:34 Temperature 98.5 F 98.3 F Temperature Source Oral Oral Pulse Rate 95 93 89 Respiratory Rate 26 H 16 16 Blood Pressure 137/53 H 155/88 H 166/84 H Blood Pressure Mean 81 110 111 Pulse Ox 98 98 Oxygen Delivery Method Room Air Room Air 08/25/22 17:16 08/25/22 17:00 08/25/22 17:00 Temperature Temperature Source Pulse Rate 88 88 Respiratory Rate 16 16 Blood Pressure 128/74 H 148/77 H Blood Pressure Mean 92 100 Pulse Ox 98 99 Oxygen Delivery Method Room Air Room Air Weight Weight: 97.4 kg Body Mass Index (BMI) 39.2 Physical Exam Narrative General: Alert, patient with difficulty answering orientation questions, appearsupset HEENT: Atraumatic, normocephalic Eyes: Anicteric, normal conjunctiva, extraocular movements grossly, at one pointpatient would not open eyes to test formal movements Neck: Supple Respiratory: Clear to auscultation bilaterally, normal respiratory effort Cardiovascular: Regular rate and rhythm GI: Soft, nontender, nondistended Extremities: No edema Musculoskeletal: Strength equal in upper and lower extremities, patient with difficulty pulling or pushing on hands but had brief bursts of adequate strengthwith multiple prompts, 5 out of 5 right lower extremity, 5 out of 5 left lower extremity Neuro: No overt focal neurological deficits aside from some aspects of expressive and receptive aphasia, cranial nerves II through XII intact, patient would not perform [id number], no clonus in lower extremities Skin: No rashes appreciated Psych: Appears anxious Results Lab / Micro Data Result Diagrams: 08/25/22 16:00 08/25/22 16:00 Labs: Laboratory Results - last 24 hr 08/25/22 16:00: WBC 14.1 H, RBC 4.35, Hgb 12.4, Hct 38.2, MCV 87.8, MCH 28.5, MCHC 32.5, RDW Std Deviation 43.8, RDW Coeff of Landy 13.7, Plt Count 503 H, MPV 10.0, Immature Gran % (Auto) 0.600, Neut % (Auto) 68.9, Lymph % (Auto) 23.7, Pecos % (Auto) 6.2, Eos % (Auto) 0.2, Baso % (Auto) 0.4, Absolute Neuts (auto) 9.7 H, Absolute Lymphs (auto) 3.34, Nucleated RBC % 0 08/25/22 16:00: PT 14.4, INR 1.1, APTT 30.0 08/25/22 16:00: Sodium 134 L, Potassium 3.9, Chloride 101, Carbon Dioxide 25.0, Anion Gap 8, BUN 12, Creatinine 0.83, Est GFR (MDRD) Af Amer 86, Est GFR (MDRD) Non-Af 71, BUN/Creatinine Ratio 14.5, Glucose 334 H, Calcium 9.3, Troponin I High Sens 11 08/25/22 16:29: POC Glucose 316 H Radiology Impression Brain CT 08/25/22 15:52 IMPRESSION: 1. No acute intracranial abnormality. There has been no change from the reference examination. 2. Stable remote right occipital infarct. There are stable underlying senescent changes with small vessel ischemia. 3. Aspects score 10. Electronically Signed: César Segura MD at 16:06 EDT , ADDENDUM: 08/25/22 1614 IMPRESSION: 1. No acute intracranial abnormality. There has been no change from the reference examination. 2. Stable remote right occipital infarct. There are stable underlying senescent changes with small vessel ischemia. 3. Aspects score 10. N.B. : The above Results were Read Back by César Segura MD to Tejas Lew MD, and understanding confirmed on 08/25/2022 16:07:57 (ET). Electronically Signed: César Segura MD at 16:06 EDT , Head/Neck CTA 08/25/22 15:52 IMPRESSION: Negative CTA carotid and CTA brain. Electronically Signed: César Segura MD at 16:23 EDT , ADDENDUM: 08/25/22 1632 IMPRESSION: Negative CTA carotid and CTA brain. N.B. : The above Results were Read Back by César Segura MD to Tejas Lew MD, and understanding confirmed on 08/25/2022 16:25:55 (ET). Electronically Signed: César Segura MD at 16:23 EDT , Chest X-Ray 08/25/22 16:42 IMPRESSION: No radiographic evidence of acute cardiopulmonary disease. Electronically Signed: César Segura MD at 17:15 EDT , Assessment & Plan Assessment/Plan (1) Neurologic abnormality: (2) CVA (cerebral vascular accident): QUALIFIERS: CVA mechanism: embolism Precerebral and cerebral artery: posterior cerebral artery Laterality of affected vessel: right Qualified Code(s): I63.431 - Cerebral infarction due to embolism of right posterior cerebral artery (3) Type 2 diabetes mellitus: (4) Essential (primary) hypertension: (5) Mitral valve annular calcification: (6) Paroxysmal atrial flutter: (7) Hypothyroidism: PLAN: Plan #Expressive and receptive aphasia -Admit to tele -CT head w/ old stroke on right side and CTA with no large vessel occlusion -NIH q4hr -Was seen as a stroke call on arrival and was not a candidate for intervention. It was recommended she be admitted and to continue aspirin 81 mg and obtain MRI and to hold Eliquis, can consider restarting at 48 hours pending findings -asa, statin -Echo w/ bubble study -PT/OT/Speech eval -Hold BP medications to allow for permissive hypertension for 24 hours unless SBP greater than 220 or DBP greater than 120 or until stroke is ruled out #History of CVA -History of ischemic right occipital cortical stroke in February 2020 -Follows with Dr. Lee -See above #Chronic back pain -Tylenol and oxycodone. Pain with lidocaine patch topical -Follows with Dr. Serra on outpatient basis #Paroxysmal atrial flutter -On metoprolol, holding Eliquis, presently normal sinus rhythm -Troponins within normal limits as well on arrival #Hypertension -Permissive hypertension as above #Hypothyroidism -Continue Synthroid #Type 2 diabetes mellitus -Glucose checks and sliding scale insulin Discussed CODE STATUS with patient and her , patient with difficulty expressing her wishes given present complaint, when asked about full code versusDNR/DNI patient's reported she has a living will with a standing DO NOT RESUSCITATE order #DVT ppx: SCDs Christal Patiño MD Time spent in the patient's overall evaluation,decision-making process, review of diagnostic data, adjustment of management, discussion with other providers, nursing nursing and ancillary staff involved in patient's care documentation, 60minutes Charges/Coding Visit Charges Inpatient E&M: 70608 Init Hosp L2 08/25/22 0757 <Electronically signed by Christal Patiño MD> Cosigner Signature (if applicable): CC: Dr. Jones Velasquez MD; Dr. Christal Patiño MD~ Signed [facility] Work Phone: [phone]) 385-806906-05-2023 Miscellaneous Notes* Telephone Encounter - Raquel Vincent PSS - 08/10/2022 2:13 PM EDT CD READY FOR DESIGN ENG AT [facility] * Telephone Encounter - Opal Funez - 08/10/2022 11:28 AM EDT Patient requesting disk of back from 07/13/2022 copied to a disk for fruit picker documented in this encounterCherrington Hospital06-05-2023 Miscellaneous Notes* Telephone Encounter - Grace Solano LPN - 08/10/2022 1:21 PM EDT Patient has been identified by name and date of : No Patient phones for refill(s): Requested Prescriptions Pending Prescriptions Disp Refills levothyroxine (LEVOXYL) 50 mcg tablet 30 tablet 5 Sig: Take 1 tablet by mouth once daily. Take on empty stomach. For Thyroid Date of last office visit in primary care: 08/04/22 Last 2 Encounter Wt Readings: Date: Wt: 08/04/2022 95.7 kg (211 lb) 07/13/2022 98.5 kg (217 lb 3.2 oz) Previous labs/tests for medication: Thyroid: TSH Date Value 05/21/2022 2.460 mIU/L 03/25/2021 4.570 uU/mL Please advise. Thank you. Grace Solano LPN documented in this encounterCherrington Hospital05-30-2023 Miscellaneous Notes* Telephone Encounter - Sobia Quiñonez RN - 08/04/2022 12:34 PM EDT Yamileth with [facility] called in and reports they do not have the strength of codeine with Guaifenesin that the provider ordered. I changed the medication to the one they have in stock and set it to what the provider had previously. Please resend if provider is ok with medication change. documented in this encounterCherrington Hospital05-12-2023 Miscellaneous Notes* Telephone Encounter - Chantale Alves Ma - 07/17/2022 9:16 AM EDT Patient notified, please assist in scheduling Pain Management. * Telephone Encounter - Astrid Muse APRN.CNP - 07/16/2022 4:30 PM EDT Please let patient know xray shows arthritic changes and stable vertebral fracture as noted previously. I am also placing a consult to pain management for further evaluation as she has chronic back pain outside of the current pain. Thank you Astrid Muse APRN.FINISH CLEANER documented in this encounterCherrington Hospital05-08-2023 History of Present illness Narrative* Jeannie Mcclellan RT(R) - 07/13/2022 2:30 PM EDT Radiology Service Progress Note PATIENT NAME: Britney Canada DATE OF SERVICE: July 13, 2022 TIME: 2:31 PM PATIENT IDENTITY VERIFICATION COMPLETED USING TWO (2) IDENTIFIERS: Name and Date of confirmedby patient verbally. FALL SCREENING: Has the patient had 2 falls in the last year or 1 fall with injury or currently using an Ambulatory Assistive Device (Walker, Cane, Wheelchair, Crutches, etc.)? Yes, Patient High Riskfor Falls What interventions were put in place to prevent falls during this visit? Offered Assistance with Transfers/Clothing and Instructed Patient to Remain Seated (Not on Exam Table) Until Exam PATIENT GENDER DATA: Female. status: : No status: NO. PATIENT RELEVANT IMPLANT DATA REVIEWED: Not Applicable RADIOLOGY DEPARTMENT: General X-ray: Exam(s) Completed: Spine X-Ray(s): Lumbar AP / LAT / L5-S1 PERIPHERAL IV DATA: Not applicable SIGNED BY: RT Pietro(R) July 13, 2022 2:31 PM documented in this encounterCherrington Hospital04-24-2023 History of Present illness Narrative* Agueda Sabillon LPN - 06/29/2022 1:22 PM EDT Patient presents for B-12 injection. Denies any problems at this time. Patient instructed on any SEof medication, verbalized understanding and agreed to proceed with treatment. Tolerated injection well. Agueda Sabillon LPN documented in this encounterCherrington Hospital04-13-2023 History of Present illness Narrative* Jodi Lyles MA - 06/18/2022 8:31 AM EDT POPULATION HEALTH NAVIGATION OUTREACH Action/ [employer] Care Gaps 4.5.23 Discuss/Due for: Dilated Retinal Eye Exam due 02/17/2023, Advance Directives, Colorectal Cancer Screening (Cologuard) ordered 06/04/2022 ,Future Diabetic Labs - Hgb a1c previously ordered 06/04/2022 - Urine Albumin previously ordered 06/04/2022 Follow Up previously scheduled with Astrid Muse APRN.CNP for 09/03/2022 - updated existing appointments notes with health maintenance/Please address HCC or remove from Problem List Outcome: 1st attempt - Not Available/Voicemail is not set up yet 2nd attempt - MyChart message sent Patient Identified by Name and : NO Outreach Outcome/Action Unable to reach patient: Not Available/Voicemail is not set up yet MyChart message sent Advance Directives sent Did you use a PCP flex slot to schedule this appointment? N/A Reason for Outreach Care Gap or Scheduling/Wellness visits Payer: Payor: [employer] MEDICARE / Plan: [employer] MEDICARE PPO / Product Type: PPO / Care Gap Reviewed:: Colorectal Cancer Screening Diabetic Eye Exam Reminder: Reminder note to check Health Maintenance for items below Health Maintenance items due: BP CONTROLLED (<130/80) Never done URINE ALBUMIN:CREATININE RATIO due on 11/01/2020 COLORECTAL CANCER SCREENING due on 11/05/2020 ADVANCE DIRECTIVE DISCUSSION due on 03/08/2022 DEPRESSION ASSESSMENT due on 03/08/2022 Navigation Signature: Jodi Lyles MA June 18, 2022 8:32 AM documented in this encounterCherrington Hospital03-31-2023 Miscellaneous Notes* Telephone Encounter - Astrid Muse APRN.CNP - 06/05/2022 7:59 AM EDT RX clarified and resent Astrid Muse APRN.CNP * Telephone Encounter - Artemio Burrows RN - 06/04/2022 1:58 PM EDT [facility] asking for new metformin Rx with one set of instructions. Received Rx today with 2sets of instructions. documented in this encounterCherrington Hospital03-30-2023 History of Present illness Narrative* Astrid Muse APRN.CNP - 06/04/2022 1:17 PM EDT CC: Patient presents with: Recheck: 3 month follow up HPI Britney Canada is a 76 year old female who presents today for routine follow up. DIABETES MELLITUS: Ms. Canada denies excessive thirst or increased frequency of urination, chest pain or dyspnea , numbness, tingling or pain in extremities, new or unusual visual symptoms, low sugar/hypoglycemic reactions, weight loss/gain, lightheadedness/dizziness, and bowel changes/loose stools. Follows a diabetic diet most of the time. She is compliant with medication(s) and is tolerating med(s) without any side effects. She reports checking her glucose on a infrequent to not at all basisschedule . Patient's last HgA1C was Hemoglobin A1C (%) Date Value 05/21/2022 8.5 02/12/2022 8.5 03/25/2021 7.9 12/06/2020 8.3 Hemoglobin A1C (POCT) (%) Date Value 11/21/2021 8.0 ) Last Ophthalmology exam was within the past 3 months HTN: Ms. Canada indicates that she is feeling well and denies any symptoms referable to elevated blood pressure. Specifically denies headache, chest pain, palpitations, dyspnea, and peripheral edema. Patient denies any side effects of her medication(s) and is compliant with their regimen. She doesnot check BP's generally. Last 3 Encounter BP Readings: Date: BP: 06/04/2022 132/78 02/18/2022 128/76 11/21/2021 118/70 REVIEW OF SYSTEMS General: no fevers, no chills, no night sweats, no recurrent infections, no change in appetite, no change in energy, and no significant changes in weight Respiratory: no cough, no wheezing, no shortness of breath, no hemoptysis Cardiovascular: no chest pain, no chest pressure, no palpitations, and no swelling GI: No nausea, vomiting, or diarrhea Endocrine: no fatigue, no polyuria, no polyphagia, and no polydipsia Neurologic: No headache, weakness, numbness, tingling, dizziness, memory loss, syncope. PAST MEDICAL HISTORY Diagnosis Date Abnormal mammogram, unspecified Diabetes mellitus without mention of complication PAST SURGICAL HISTORY Procedure Laterality Date CHOLECYSTECTOMY 1989 RPR UMBILICAL HRNA 5 YRS/> REDUCIBLE STEREOTACTIC CORE BIOPSY 10/18/08 RIGHT BREAST ALLERGIES Darvon [Propoxyphene Hcl] and Penicillins MEDICATIONS semaglutide (RYBELSUS) 3 mg tablet^Take 1 tablet by mouth daily before breakfast.^Disp: 30 tablet^Rfl: 0 levothyroxine (LEVOXYL) 50 mcg tablet^Take 1 tablet by mouth once daily. Take on empty stomach. ForThyroid^Disp: 30 tablet^Rfl: 5 losartan (COZAAR) 50 mg tablet^Take 1 tablet by mouth once daily.^Disp: 90 tablet^Rfl: 3 metFORMIN ER (GLUCOPHAGE XR) 500 mg 24 hr tablet^Take 1 tab in the morning and 2 tabs in the evening by mouth^Disp: 270 tablet^Rfl: 3 cyanocobalamin 1,000 mcg/mL^Inject 1 mL intramuscularly once every month.^Disp: 1 mL^Rfl: 12 atorvastatin (LIPITOR) 80 mg tablet^Take 1 tablet by mouth daily at bedtime. For cholesterol.^Disp:90 tablet^Rfl: 3 metoprolol tartrate, short acting, (LOPRESSOR) 25 mg tablet^Take 25 mg by mouth twice daily.^Disp: ^Rfl: apixaban (ELIQUIS) 5 mg tab(s)^Take by mouth twice daily.^Disp: ^Rfl: aspirin, enteric coated (ASPIRIN, ENTERIC COATED) 81 mg EC tablet^Take 1 tablet by mouth once daily.^Disp: 90 tablet^Rfl: 3 cholecalciferol (VITAMIN D3) 2,000 unit tablet^Take 1 tablet by mouth once daily.^Disp: ^Rfl: 0 fluticasone (FLONASE) 50 mcg/actuation nasal spray^Use 2 Sprays in each nostril once daily.^Disp: 3Bottle^Rfl: 3 FAMILY HISTORY Problem Relation Age of Onset Prostate Cancer Father Breast Cancer Mother 40 Coronary Artery Disease Mother pace maker Coronary Artery Disease Father triple bypass Social History Tobacco Use Smoking status: Never Smokeless tobacco: Never Substance Use Topics Alcohol use: Yes Comment: rarely Drug use: No PHYSICAL EXAM BP 132/78 Pulse 68 Temp 36.6 C (97.8 F) (Temporal) Resp 16 Wt 99.3 kg (219 lb) SpO2 95% BMI 40.06 kg/m General Appearance: well appearing, in no acute distress, alert Skin: Skin color, texture, turgor normal for age; Eyes: conjunctiva pink and moist, no icterus, sclera white, non-injected Lungs: Lungs clear to auscultation. No wheezing, rhonchi, rales. Heart: RRR without murmur, gallop, or rubs. No ectopy Health maintenance reviewed with patient: URINE ALBUMIN:CREATININE RATIO due on 11/01/2020 COLORECTAL CANCER SCREENING due on 11/05/2020 ADVANCE DIRECTIVE DISCUSSION due on 03/08/2022 DEPRESSION ASSESSMENT due on 03/08/2022 HBA1C due on 08/21/2022 DIABETIC FOOT EXAM due on 11/21/2022 DILATED RETINAL EXAM due on 02/17/2023 ANNUAL PCP TEAM CHRONIC DISEASE VISIT due on 02/18/2023 BP CONTROLLED (<130/80) due on 02/18/2023 LDL CHOLESTEROL due on 05/22/2023 DTAP,TDAP,TD(2 - Td or Tdap) due on 01/16/2030 BONE DENSITY Completed INFLUENZA Completed HEPATITIS C SCREENING Completed SHINGRIX VACCINE Completed COVID-19 VACCINE Completed PNEUMOCOCCAL: 65+ Completed DATA REVIEWED: Most recent labs ASSESSMENT/PLAN: 1. Diabetes mellitus type 2 with complications (HCC) - ICD9: 250.90, ICD10: E11.8 (primary diagnosis) - Uncontrolled - Continue current medications - discussed medication options as patient is concerned to start new medications and never started the rybelsus as previously ordered by PCP. Agreeable to increase metformin. - Blood glucose monitoring on a once daily schedule - Counseled on healthy diet and regular exercise - Discussed need for and benefit of weight loss. BMI 40.06 kg/(m^2) - ALBUMIN/CREAT RATIO RND UR - HGB A1C - CBC + DIFF - BASIC METABOLIC PNL - follow up in 3 months 2. Essential hypertension - ICD9: 401.9, ICD10: I10 - good control - Continue current medication(s) - Encouraged dietary sodium restriction/DASH diet - Recommended regular aerobic exercise. - Recommend home blood pressure monitoring, to bring results in on next visit - Goal of BP <130/80 - CBC + DIFF - BASIC METABOLIC PNL 3. Colon cancer screening - ICD9: V76.51, ICD10: Z12.11 - no family history of colon cancer, personal history of polyps, or change in bowels. - COLOGUARD Prescription instructions reviewed with patient as applicable. Potential red flag symptoms discussed with the patient. Reviewed appropriate action plan to take if red flag symptoms occur. Patient agreeable to treatment plan. Astrid Muse APRN.CNP documented in this encounterCher[facility] Hospital03-27-2023 History of Present illness Narrative* Agueda Sabillon LPN - 06/01/2022 1:16 PM EDT Patient presents for B-12 injection. Denies any problems at this time. Patient instructed on any SEof medication, verbalized understanding and agreed to proceed with treatment. Tolerated injection well. Agueda Sabillon LPN documented in this encounterCleveland [id number] History of Present illness Narrative* Agueda Sabillon LPN - 05/04/2022 12:50 PM EST Patient presents for B-12 injection. Denies any problems at this time. Patient instructed on any SEof medication, verbalized understanding and agreed to proceed with treatment. Tolerated injection well. Agueda Sabillon LPN documented in this encounterCherrington Hospital02-24-2023 History of Present illness Narrative* Mayelin Barakat Pss - 05/01/2022 10:14 AM EST POPULATION HEALTH NAVIGATION OUTREACH Action/FYI: Lance Care Gaps 05/01/22 Discuss the following due/overdue HM care gaps: ~Colorectal Cancer Screening Outcome: ~Unable to leave voice mail as mailbox not set up. Bibat message sent. Patient Identified by Name and : NO Outreach Outcome/Action Unable to reach patient: Phone number not valid / voicemail full Bibat message sent Did you use a PCP flex slot to schedule this appointment? N/A Reason for Outreach Care Gap or Scheduling/Wellness visits Payer: Payor: [employer] / Plan: [employer] MED[employer]ARE PPO / Product Type: PPO / Care Gap Reviewed:: Colorectal Cancer Screening Reminder: Reminder note to check Health Maintenance for items below Health Maintenance items due: URINE ALBUMIN:CREATININE RATIO due on 11/01/2020 COLORECTAL CANCER SCREENING due on 11/05/2020 ADVANCE DIRECTIVE DISCUSSION due on 03/08/2022 DEPRESSION ASSESSMENT due on 03/08/2022 Navigation Signature: Mayelin Barakat Population Health Navigator May 01, 2022 10:14 AM documented in this encounterCherrington Hospital02-09-2023 Miscellaneous Notes* Telephone Encounter - Jones Velasquez MD - 04/16/2022 2:42 PM EST Staff Can you do the needful for the patient? Regards, Jones Velasquez MD documented in this encounterCherrington Hospital01-17-2023 Miscellaneous Notes* Telephone Encounter - Agueda Sabillon LPN - 03/24/2022 8:44 AM EST Patient scheduled for nurse visit 04/06/22 to receive Vitamin B-12. Please place new administration order at this time. Agueda Sabillon LPN documented in this encounterCherrington Hospital01-04-2023 History of Present illness Narrative* Agueda Sabillon LPN - 03/11/2022 10:40 AM EST Patient presents for B-12 injection. Denies any problems at this time. Patient instructed on any SEof medication, verbalized understanding and agreed to proceed with treatment. Tolerated injection well. Agueda Sabillon LPN documented in this encounterCherrington Hospital12-14-2022 History of Present illness Narrative* Jones Velasquez MD - 02/18/2022 10:17 AM EST Reason for Visit Patient presents with: F/U Diabetes 3 Month Britney Canada is a 76 year old female who presents here today for Above Complaints.. Health Maintenance URINE ALBUMIN:CREATININE RATIO COLORECTAL CANCER SCREENING DEPRESSION ASSESSMENT HPI Has been doing very well recently, started [facility] a month ago and goes in 2/3 times a week. 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 Has new glass rx. If she is not on her bronwyn, recipes are a little harder to read. Hba1c is worse than before. At 8.5.She has has not been taking medication regularly, eating same asbefore, She Is on metformin at 3 pills and does not want to increase, she does not want to consider shots due to dexterity issues. We increased januvia and that did not help her at all. She is ok trying the rybelsus, we are sending her to the pharmacist. HTN: Compliant with medications. Denies any chest pain, palpitations, or edema. No SOB. Doesn't check BP at home generally. Careful with diet to avoid salt, trying to eat more fruits and vegetables, exercises regularly. Hypothyroidism. She is doing well on her current dose of Synthroid. Denies fatigue, cold intolerance and swelling in feet. TSH recently checked and normal. I noticed she has a little tremor. Does not want medication for urinary incontinence No problem-specific Assessment & Plan notes found for this encounter. PAST MEDICAL HISTORY Diagnosis Date Abnormal mammogram, unspecified Diabetes mellitus without mention of complication PAST SURGICAL HISTORY Procedure Laterality Date CHOLECYSTECTOMY 1989 RPR UMBILICAL HRNA 5 YRS/> REDUCIBLE STEREOTACTIC CORE BIOPSY 10/18/08 RIGHT BREAST FAMILY HISTORY Problem Relation Age of Onset Prostate Cancer Father Breast Cancer Mother 40 Coronary Artery Disease Mother pace maker Coronary Artery Disease Father triple bypass Social History Tobacco Use Smoking status: Never Smokeless tobacco: Never Substance Use Topics Alcohol use: Yes Comment: rarely Drug use: No Past medical history, appointments, medications, allergies reviewed. Pertinent Lab/Diagnostic Studies are reviewed and discussed today Current Outpatient Medications: levothyroxine (LEVOXYL) 50 mcg tablet losartan (COZAAR) 50 mg tablet metFORMIN ER (GLUCOPHAGE XR) 500 mg 24 hr tablet SITagliptin (JANUVIA) 100 mg tablet cyanocobalamin 1,000 mcg/mL atorvastatin (LIPITOR) 80 mg tablet metoprolol tartrate, short acting, (LOPRESSOR) 25 mg tablet apixaban (ELIQUIS) 5 mg tab(s) aspirin, enteric coated (ASPIRIN, ENTERIC COATED) 81 mg EC tablet cholecalciferol (VITAMIN D3) 2,000 unit tablet fluticasone (FLONASE) 50 mcg/actuation nasal spray Current Facility-Administered Medications: cyanocobalamin 1,000 mcg injection Review of Systems CONSTITUTIONAL: No fevers, chills night sweats, unintended weight loss CARDIOVASCULAR: No chest pain, dyspnea, palpitations, orthopnea, PND, ankle edema. PULM: No dyspnea, unexplained cough. GI: No dysphagia/odynophagia, problematic reflux, constipation, diarrhea, changes in stool habits, hematochezia, melena. : No new urinary complaints, including dysuria, gross hematuria or pyuria. NEURO: No new balance problems, peripheral weakness/paresthesias or numbness of concern. Physical Exam BP 128/76 (BP Site: Left Arm, BP Position: Sitting, BP Cuff Size: Large Adult) Pulse 65 Temp 36.4 C (97.5 F) Resp 16 Ht 157.5 cm (5' 2) Wt 97.5 kg (215 lb) SpO2 97% BMI 39.32 kg/m General appearance: Well appearing, alert, in no acute distress, well nourished. Skin: Skin color, texture, turgor normal, no suspicious rashes or lesions Head: Normocephalic, no masses, lesions, tenderness or abnormalities Eyes: Anicteric sclera. Pupils are equally round and reactive to light. Extraocular movements are intact. Lungs: Lungs clear to auscultation. No wheezing, rhonchi, rales Heart: RRR without murmur, gallop, or rubs. Extremities: No deformities, edema, skin discoloration, clubbing or cyanosis. Good capillary refill. ASSESSMENT/PLAN: 1. Diabetes mellitus type 2 with complications (HCC) - ICD9: 250.90, ICD10: E11.8 (primary diagnosis) Asking patient to try the GLPs since she does not want to - RYBELSUS 3 MG TABLET - CONSULT TO PHARMACY - ALBUMIN/CREAT RATIO RND UR - HGB A1C - COMP METABOLIC PANEL - CBC - TSH BLD - LIPID PANEL BASIC 2. Mixed hyperlipidemia - ICD9: 272.2, ICD10: E78.2 - good control - Continue current medication. 3. Essential hypertension - ICD9: 401.9, ICD10: I10 - good control - Recommended regular aerobic exercise. - Recommend home blood pressure monitoring, to bring results in on next visit - Goal of BP <130/80 4. Paroxysmal A-fib (HCC) - ICD9: 427.31, ICD10: I48.0 Cont the eliquis Jones Velasquez MD documented in this encounterCherrington Hospital12-01-2022 History of Present illness Narrative* Agueda Sabillon LPN - 02/05/2022 1:57 PM EST Patient presents for B-12 injection. Denies any problems at this time. Patient instructed on any SEof medication, verbalized understanding and agreed to proceed with treatment. Tolerated injection well. Agueda Sabillon LPN documented in this encounterCherrington Hospital11-29-2022 History of Present illness Narrative* Jessica Miranda - 02/03/2022 10:37 AM EST POPULATION HEALTH NAVIGATION OUTREACH Action/FYI Unable to review H/M V/M not set up My chart sent Pt identified by name and : NO Outreach Outcome/Action Unable to reach patient: Phone number not valid / voicemail full DxTerityhart message sent Did you use a PCP flex slot to schedule this appointment? N/A Reason for Outreach Care Gap or Scheduling/Wellness visits Payer: Payor: [employer] MEDICARE / Plan: [employer] MED[employer]ARE PPO / Product Type: PPO / Care Gap Reviewed:: Colorectal Cancer Screening Diabetic Eye Exam Reminder: Reminder note to check Health Maintenance for items below Health Maintenance items due: DILATED RETINAL EXAM due on 03/15/2019 URINE ALBUMIN:CREATININE RATIO due on 11/01/2020 COLORECTAL CANCER SCREENING due on 11/05/2020 DEPRESSION ASSESSMENT Never done Message Sent to Practice: No Navigation Signature: Jessica Miranda February 03, 2022 10:37 AM documented in this encounterCherrington Hospital11-02-2022 History of Present illness Narrative* Agueda Sabillon LPN - 01/07/2022 10:00 AM EDT Patient presents for B-12 injection. Denies any problems at this time. Patient instructed on any SEof medication, verbalized understanding and agreed to proceed with treatment. Tolerated injection well. Agueda Sabillon LPN documented in this encounterCherrington Hospital10-03-2022 History of Present illness Narrative* Agueda Sabillon LPN - 12/08/2021 10:15 AM EDT Patient presents for B-12 injection. Denies any problems at this time. Patient instructed on any SEof medication, verbalized understanding and agreed to proceed with treatment. Tolerated injection well. Agueda Sabillon LPN [facility] Miscellaneous Notes* Telephone Encounter - Sobia Betsy - 11/18/2021 10:17 AM EDT Patient is here said she needs labs but there is no orders in please advise. Sobia Betsy documented in this encounterC[facility]09-[facility]22 History of Present illness Narrative* Agueda Sabillon LPN - 11/07/2021 10:06 AM EDT Patient presents for B-12 injection. Denies any problems at this time. Patient instructed on any SEof medication, verbalized understanding and agreed to proceed with treatment. Tolerated injection well. Agueda Sabillon LPN documented in this encounterC[facility]08-18-2022 History of Present illness Narrative* Mayelin Allred - 10/23/2021 8:13 AM EDT POPULATION HEALTH NAVIGATION OUTREACH Action/FYI: [employer] Care Gaps 10/23/21 Discuss/Due: ~Dilated Retinal Exam ~Albumin ~Colorectal Cancer Screening ~Breast Cancer Screening due 12/19/21 or after Outcome: ~Unable to leave voice mail as mailbox has not been set up. ~Sent School Admissions message. Pt identified by name and : NO Outreach Outcome/Action Unable to reach patient: Phone number not valid / voicemail full DxTerityhart message sent Did you use a PCP flex slot to schedule this appointment? N/A Reason for Outreach Care Gap or Scheduling/Wellness visits Payer: Payor: [employer] MEDICARE / Plan: [employer] MEDICARE PPO / Product Type: PPO / Care Gap Reviewed:: Breast Cancer screening Colorectal Cancer Screening Diabetic Eye Exam Nephropathy (Albumin/Creatinine) Urine Reminder: Reminder note to check Health Maintenance for items below Health Maintenance items due: BP CONTROLLED (<130/80) Never done DILATED RETINAL EXAM due on 03/15/2019 URINE ALBUMIN:CREATININE RATIO due on 11/01/2020 COLORECTAL CANCER SCREENING due on 11/05/2020 MAMMOGRAM due on 12/18/2021 Message Sent to Practice: No Navigation Signature: Mayelin Barakat Population Health Navigator October 23, 2021 8:13 AM documented in this [facility]08-08-2022 Miscellaneous Notes* Telephone Encounter - Chantale Alves Ma - 10/13/2021 2:55 PM EDT Patient notified. * Telephone Encounter - Chantale Alves Ma - 10/13/2021 2:54 PM EDT ----- Message from Jones Velasquez MD sent at 10/11/2021 8:45 AM EDT ----- Thyroid is not in the right levels it should be documented in this encounterCher[facility]08-05-[facility]22 History of Present illness Narrative* Agueda Sabillon LPN - 10/10/2021 9:49 AM EDT Patient presents for B-12 injection. Denies any problems at this time. Patient instructed on any SEof medication, verbalized understanding and agreed to proceed with treatment. Tolerated injection well. Agueda Sabillon LPN documented in this encounterC[facility]07-[facility]22 History of Present illness Narrative* Agueda Sabillon LPN - 09/12/2021 9:39 AM EDT Patient presents for B-12 injection. Denies any problems at this time. Patient instructed on any SEof medication, verbalized understanding and agreed to proceed with treatment. Tolerated injection well. Agueda Sabillon LPN documented [facility] this [facility]06-10-[facility] History of Present illness Narrative* Agueda Sabillon LPN - 08/15/2021 12:38 PM EDT Patient presents for B-12 injection. Denies any problems at this time. Patient instructed on any SEof medication, verbalized understanding and agreed to proceed with treatment. Tolerated injection well. Agueda Sabillon LPN documented in this encounterC[facility]06-10-[facility]22 History of Present illness Narrative* Jones Velasquez MD - 08/15/2021 11:58 AM EDT Reason for Visit Patient presents with: Established Patient: follow up-DM Britney Canada is a 75 year old female who presents here today for Above Complaints.. Health Maintenance DILATED RETINAL EXAM URINE ALBUMIN:CREATININE RATIO COLORECTAL CANCER SCREENING ADVANCE DIRECTIVE DISCUSSION HPI Just back from an amazing cruise via [employer], ate right all that time but enjoyed some desserts too. Hba1c is 8.0 from 7.9. patient is happy with results and does not want too much changes in medication She will try to be more active and get back to eating better. Had a fall on Apr 17. She used a foot stool to reach up to the crackers on the shelf and she losther balance and fell. Landed on the head and that was very painful. Went to ER, had mri as she is on a blood thinner. No bleeding. Her headaches lasted a few days and she is not much much better. HTN: Compliant with medications. Denies any chest pain, palpitations, or edema. No SOB. Doesn't check BP at home generally. Careful with diet to avoid salt, trying to eat more fruits and vegetables, exercises regularly. She is getting time to exercise and be more physically active,. No problem-specific Assessment & Plan notes found for this encounter. PAST MEDICAL HISTORY Diagnosis Date Abnormal mammogram, unspecified Diabetes mellitus without mention of complication PAST SURGICAL HISTORY Procedure Laterality Date CHOLECYSTECTOMY 1989 RPR UMBILICAL HRNA 5 YRS/> REDUCIBLE STEREOTACTIC CORE BIOPSY 10/18/08 RIGHT BREAST FAMILY HISTORY Problem Relation Age of Onset Prostate Cancer Father Breast Cancer Mother 40 Coronary Artery Disease Mother pace maker Coronary Artery Disease Father triple bypass Social History Tobacco Use Smoking status: Never Smoker Smokeless tobacco: Never Used Substance Use Topics Alcohol use: Yes Comment: rarely Drug use: No Past medical history, appointments, medications, allergies reviewed. Pertinent Lab/Diagnostic Studies are reviewed and discussed today Current Outpatient Medications: cyanocobalamin 1,000 mcg/mL atorvastatin (LIPITOR) 80 mg tablet losartan (COZAAR) 50 mg tablet SITagliptin (JANUVIA) 50 mg tablet metFORMIN ER (GLUCOPHAGE XR) 500 mg 24 hr tablet metoprolol tartrate, short acting, (LOPRESSOR) 25 mg tablet apixaban (ELIQUIS) 5 mg tab(s) aspirin, enteric coated (ASPIRIN, ENTERIC COATED) 81 mg EC tablet cholecalciferol (VITAMIN D3) 2,000 unit tablet fluticasone (FLONASE) 50 mcg/actuation nasal spray Current Facility-Administered Medications: cyanocobalamin 1,000 mcg injection Review of Systems CONSTITUTIONAL: No fevers, chills night sweats, unintended weight loss CARDIOVASCULAR: No chest pain, dyspnea, palpitations, orthopnea, PND, ankle edema. PULM: No dyspnea, unexplained cough. GI: No dysphagia/odynophagia, problematic reflux, constipation, diarrhea, changes in stool habits, hematochezia, melena. : No new urinary complaints, including dysuria, gross hematuria or pyuria. NEURO: No new balance problems, peripheral weakness/paresthesias or numbness of concern. Physical Exam BP 130/64 (BP Site: Left Arm, BP Position: Sitting, BP Cuff Size: Large Adult) Pulse (!) 52 Temp 36.4 C (97.5 F) Resp 14 Ht 157.5 cm (5' 2) Wt 95.7 kg (211 lb) SpO2 99% BMI 38.59 kg/m General appearance: Well appearing, alert, in no acute distress, well nourished. Skin: Skin color, texture, turgor normal, no suspicious rashes or lesions Head: Normocephalic, no masses, lesions, tenderness or abnormalities Eyes: Anicteric sclera. Pupils are equally round and reactive to light. Extraocular movements are intact. Lungs: Lungs clear to auscultation. No wheezing, rhonchi, rales Heart: RRR without murmur, gallop, or rubs. Extremities: No deformities, edema, skin discoloration, clubbing or cyanosis. Good capillary refill. ASSESSMENT/PLAN: 1. Leukocytosis, unspecified type - ICD9: 288.60, ICD10: D72.829 (primary diagnosis) - CBC + DIFF 2. Hypothyroidism, unspecified type - ICD9: 244.9, ICD10: E03.9 - Instructed patient on importance of taking on an empty stomach either first thing in the morning or at bedtime. Stable - Continue current medications - TSH BLD - T4 FREE/FREE THYROX - T3 FREE BLD Started patient on levothyroxine 3. Diabetes mellitus type 2 with complications (HCC) - ICD9: 250.90, ICD10: E11.8 Controlled. - Continue current medications Jones Velasquez MD documented in this encounterC[facility]05-18-2022 Miscellaneous Notes* Telephone Encounter - Frankie Bernal Ma - 07/23/2021 12:57 PM EDT Patient notified, verbalized understanding. Frankie Bernal Ma * Telephone Encounter - Astrid Muse APRN.CNP - 07/23/2021 12:35 PM EDT Please let patient know that fasting lab work has been ordered, please get labs drawn closer to follow up appointment. Thank you Astrid Muse APRN.CNP * Telephone Encounter - Francia Antunez - 07/23/2021 8:53 AM EDT Patient would like bloodwork placed before 3 month follow up - please notify patient when she can come in to complete documented in this encounterC[facility]05-10-[facility]22 History of Present illness Narrative* Agueda Sabillon LPN - 07/15/2021 10:27 AM EDT Patient presents for B-12 injection. Denies any problems at this time. Patient instructed on any SEof medication, verbalized understanding and agreed to proceed with treatment. Tolerated injection well. Agueda Sabillon LPN documented in this encounterC[facility]05-06-[facility]22 History of Present illness Narrative* Francia Salmon [facility] Health Navigator - 07/11/2021 11:27 AM EDT POPULATION HEALTH NAVIGATION OUTREACH Action/FYI I tried to leave a voice message but mail box isn't set up, send a my chart message re: colonoscopyand retina eye exam Pt identified by name and : NO Outreach Outcome/Action Unable to reach patient: Left message MyChart message sent Reason for Outreach Care Gap or Scheduling/Wellness visits Payer: Payor: [employer] / Plan: [employer] MED[employer]ARE PPO / Product Type: PPO / Care Gap Reviewed:: Colorectal Cancer Screening Diabetic Eye Exam Reminder: Reminder note to check Health Maintenance for items below Health Maintenance items due: DILATED RETINAL EXAM due on 03/15/2019 URINE ALBUMIN:CREATININE RATIO due on 11/01/2020 COLORECTAL CANCER SCREENING due on 11/05/2020 ADVANCE DIRECTIVE DISCUSSION Never done DEPRESSION SCREENING due on 05/15/2021 Message Sent to Practice: No Navigation Signature: Francia Salmon [facility] Health Navigator July 11, 2021 11:27 AM documented in this encounterC[facility]04-[facility]-2022 History of Present illness Narrative* Agueda Sabillon LPN - 06/10/2021 1:28 PM EDT Patient presents for B-12 injection. Denies any problems at this time. Patient instructed on any SEof medication, verbalized understanding and agreed to proceed with treatment. Tolerated injection well. Agueda Sabillon LPN documented in this encounterC[facility]07-21-2015 History of Past illness Narrative* Problem Noted Date Resolved Date Type II or unspecified type diabetes mellitus without mention of complication, not stated as uncontrolled 09/25/2014 Other and unspecified hyperlipidemia 09/25/2014 06/21/2015 BMI 38.0-38.9,adult 09/25/2014 11/30/2014 documented as of this encounter (statuses as of 06/10/2021) [address]21-2015 History of Past illness Narrative* Problem Noted Date Resolved Date Type II or unspecified type diabetes mellitus without mention of complication, not stated as uncontrolled 09/25/2014 Other and unspecified hyperlipidemia 09/25/2014 06/21/2015 BMI 38.0-38.9,adult 09/25/2014 11/30/2014 documented as of this encounter (statuses as of 07/11/2021) [address]21-2015 History of Past illness Narrative* Problem Noted Date Resolved Date Type II or unspecified type diabetes mellitus without mention of complication, not stated as uncontrolled 09/25/2014 Other and unspecified hyperlipidemia 09/25/2014 06/21/2015 BMI 38.0-38.9,adult 09/25/2014 11/30/2014 documented as of this encounter (statuses as of 07/15/2021) [address]21-2015 History of Past illness Narrative* Problem Noted Date Resolved Date Type II or unspecified type diabetes mellitus without mention of complication, not stated as uncontrolled 09/25/2014 Other and unspecified hyperlipidemia 09/25/2014 06/21/2015 BMI 38.0-38.9,adult 09/25/2014 11/30/2014 documented as of this encounter (statuses as of 07/23/2021) [address]21-2015 History of Past illness Narrative* Problem Noted Date Resolved Date Type II or unspecified type diabetes mellitus without mention of complication, not stated as uncontrolled 09/25/2014 Other and unspecified hyperlipidemia 09/25/2014 06/21/2015 BMI 38.0-38.9,adult 09/25/2014 11/30/2014 documented as of this encounter (statuses as of 08/15/2021) [address]21-2015 History of Past illness Narrative* Problem Noted Date Resolved Date Type II or unspecified type diabetes mellitus without mention of complication, not stated as uncontrolled 09/25/2014 Other and unspecified hyperlipidemia 09/25/2014 06/21/2015 BMI 38.0-38.9,adult 09/25/2014 11/30/2014 documented as of this encounter (statuses as of 08/15/2021) [address]21-2015 History of Past illness Narrative* Problem Noted Date Resolved Date Type II or unspecified type diabetes mellitus without mention of complication, not stated as uncontrolled 09/25/2014 Other and unspecified hyperlipidemia 09/25/2014 06/21/2015 BMI 38.0-38.9,adult 09/25/2014 11/30/2014 documented as of this encounter (statuses as of 09/12/2021) [address]21-2015 History of Past illness Narrative* Problem Noted Date Resolved Date Type II or unspecified type diabetes mellitus without mention of complication, not stated as uncontrolled 09/25/2014 Other and unspecified hyperlipidemia 09/25/2014 06/21/2015 BMI 38.0-38.9,adult 09/25/2014 11/30/2014 documented as of this encounter (statuses as of 10/10/2021) [address]21-2015 History of Past illness Narrative* Problem Noted Date Resolved Date Type II or unspecified type diabetes mellitus without mention of complication, not stated as uncontrolled 09/25/2014 Other and unspecified hyperlipidemia 09/25/2014 06/21/2015 BMI 38.0-38.9,adult 09/25/2014 11/30/2014 documented as of this encounter (statuses as of 10/13/2021) [address]21-2015 History of Past illness Narrative* Problem Noted Date Resolved Date Type II or unspecified type diabetes mellitus without mention of complication, not stated as uncontrolled 09/25/2014 Other and unspecified hyperlipidemia 09/25/2014 06/21/2015 BMI 38.0-38.9,adult 09/25/2014 11/30/2014 documented as of this encounter (statuses as of 10/23/2021) [address]21-2015 History of Past illness Narrative* Problem Noted Date Resolved Date Type II or unspecified type diabetes mellitus without mention of complication, not stated as uncontrolled 09/25/2014 Other and unspecified hyperlipidemia 09/25/2014 06/21/2015 BMI 38.0-38.9,adult 09/25/2014 11/30/2014 documented as of this encounter (statuses as of 11/07/2021) [address]2015 History of Past illness Narrative* Problem Noted Date Resolved Date Type II or unspecified type diabetes mellitus without mention of complication, not stated as uncontrolled 09/25/2014 Other and unspecified hyperlipidemia 09/25/2014 06/21/2015 BMI 38.0-38.9,adult 09/25/2014 11/30/2014 documented as of this encounter (statuses as of 11/18/2021) [address]2015 History of Past illness Narrative* Problem Noted Date Resolved Date Type II or unspecified type diabetes mellitus without mention of complication, not stated as uncontrolled 09/25/2014 Other and unspecified hyperlipidemia 09/25/2014 06/21/2015 BMI 38.0-38.9,adult 09/25/2014 11/30/2014 documented as of this encounter (statuses as of 12/08/2021) [address]21-2015 History of Past illness Narrative* Problem Noted Date Resolved Date Type II or unspecified type diabetes mellitus without mention of complication, not stated as uncontrolled 09/25/2014 Other and unspecified hyperlipidemia 09/25/2014 06/21/2015 BMI 38.0-38.9,adult 09/25/2014 11/30/2014 documented as of this encounter (statuses as of 01/07/2022) [address]21-2015 History of Past illness Narrative* Problem Noted Date Resolved Date Type II or unspecified type diabetes mellitus without mention of complication, not stated as uncontrolled 09/25/2014 Other and unspecified hyperlipidemia 09/25/2014 06/21/2015 BMI 38.0-38.9,adult 09/25/2014 11/30/2014 documented as of this encounter (statuses as of 02/03/2022) [address]21-2015 History of Past illness Narrative* Problem Noted Date Resolved Date Type II or unspecified type diabetes mellitus without mention of complication, not stated as uncontrolled 09/25/2014 Other and unspecified hyperlipidemia 09/25/2014 06/21/2015 BMI 38.0-38.9,adult 09/25/2014 11/30/2014 documented as of this encounter (statuses as of 02/05/2022) [address]21-2015 History of Past illness Narrative* Problem Noted Date Resolved Date Type II or unspecified type diabetes mellitus without mention of complication, not stated as uncontrolled 09/25/2014 Other and unspecified hyperlipidemia 09/25/2014 06/21/2015 BMI 38.0-38.9,adult 09/25/2014 11/30/2014 documented as of this encounter (statuses as of 02/18/2022) [address]21-2015 History of Past illness Narrative* Problem Noted Date Resolved Date Type II or unspecified type diabetes mellitus without mention of complication, not stated as uncontrolled 09/25/2014 Other and unspecified hyperlipidemia 09/25/2014 06/21/2015 BMI 38.0-38.9,adult 09/25/2014 11/30/2014 documented as of this encounter (statuses as of 03/12/2022) [address]21-2015 History of Past illness Narrative* Problem Noted Date Resolved Date Type II or unspecified type diabetes mellitus without mention of complication, not stated as uncontrolled 09/25/2014 Other and unspecified hyperlipidemia 09/25/2014 06/21/2015 BMI 38.0-38.9,adult 09/25/2014 11/30/2014 documented as of this encounter (statuses as of 04/16/2022) [address]21-2015 History of Past illness Narrative* Problem Noted Date Resolved Date Type II or unspecified type diabetes mellitus without mention of complication, not stated as uncontrolled 09/25/2014 Other and unspecified hyperlipidemia 09/25/2014 06/21/2015 BMI 38.0-38.9,adult 09/25/2014 11/30/2014 documented as of this encounter (statuses as of 04/30/2022) [address]21-2015 History of Past illness Narrative* Problem Noted Date Resolved Date Type II or unspecified type diabetes mellitus without mention of complication, not stated as uncontrolled 09/25/2014 Other and unspecified hyperlipidemia 09/25/2014 06/21/2015 BMI 38.0-38.9,adult 09/25/2014 11/30/2014 documented as of this encounter (statuses as of 05/01/2022) [address]21-2015 History of Past illness Narrative* Problem Noted Date Resolved Date Type II or unspecified type diabetes mellitus without mention of complication, not stated as uncontrolled 09/25/2014 Other and unspecified hyperlipidemia 09/25/2014 06/21/2015 BMI 38.0-38.9,adult 09/25/2014 11/30/2014 documented as of this encounter (statuses as of 05/04/2022) [address]21-2015 History of Past illness Narrative* Problem Noted Date Resolved Date Type II or unspecified type diabetes mellitus without mention of complication, not stated as uncontrolled 09/25/2014 Other and unspecified hyperlipidemia 09/25/2014 06/21/2015 BMI 38.0-38.9,adult 09/25/2014 11/30/2014 documented as of this encounter (statuses as of 06/01/2022) [address]21-2015 History of Past illness Narrative* Problem Noted Date Resolved Date Type II or unspecified type diabetes mellitus without mention of complication, not stated as uncontrolled 09/25/2014 Other and unspecified hyperlipidemia 09/25/2014 06/21/2015 BMI 38.0-38.9,adult 09/25/2014 11/30/2014 documented as of this encounter (statuses as of 06/05/2022) [address]21-2015 History of Past illness Narrative* Problem Noted Date Resolved Date Type II or unspecified type diabetes mellitus without mention of complication, not stated as uncontrolled 09/25/2014 Other and unspecified hyperlipidemia 09/25/2014 06/21/2015 BMI 38.0-38.9,adult 09/25/2014 11/30/2014 documented as of this encounter (statuses as of 06/08/2022) [address]21-2015 History of Past illness Narrative* Problem Noted Date Resolved Date Type II or unspecified type diabetes mellitus without mention of complication, not stated as uncontrolled 09/25/2014 Other and unspecified hyperlipidemia 09/25/2014 06/21/2015 BMI 38.0-38.9,adult 09/25/2014 11/30/2014 documented as of this encounter (statuses as of 06/19/2022) [address]21[address]2015 History of Past illness Narrative* Problem Noted Date Resolved Date Type II or unspecified type diabetes mellitus without mention of complication, not stated as uncontrolled 09/25/2014 Other and unspecified hyperlipidemia 09/25/2014 06/21/2015 BMI 38.0-38.9,adult 09/25/2014 11/30/2014 documented as of this encounter (statuses as of 06/29/2022) [address]21[address]2015 History of Past illness Narrative* Problem Noted Date Resolved Date Type II or unspecified type diabetes mellitus without mention of complication, not stated as uncontrolled 09/25/2014 Other and unspecified hyperlipidemia 09/25/2014 06/21/2015 BMI 38.0-38.9,adult 09/25/2014 11/30/2014 documented as of this encounter (statuses as of 08/06/2022) [address]21-2015 History of Past illness Narrative* Problem Noted Date Resolved Date Type II or unspecified type diabetes mellitus without mention of complication, not stated as uncontrolled 09/25/2014 Other and unspecified hyperlipidemia 09/25/2014 06/21/2015 BMI 38.0-38.9,adult 09/25/2014 11/30/2014 documented as of this encounter (statuses as of 08/11/2022) [address]21-2015 History of Past illness Narrative* Problem Noted Date Resolved Date Type II or unspecified type diabetes mellitus without mention of complication, not stated as uncontrolled 09/25/2014 Other and unspecified hyperlipidemia 09/25/2014 06/21/2015 BMI 38.0-38.9,adult 09/25/2014 11/30/2014 documented as of this encounter (statuses as of 09/03/2022) [address]21-2015 History of Past illness Narrative* Problem Noted Date Diagnosed Date Resolved Date Type II or unspecified type diabetes mellitus without mention of complication, not stated as uncontrolled 09/25/2014 02/19/2015 Other and unspecified hyperlipidemia 09/25/2014 06/21/2015 BMI 38.0-38.9,adult 09/25/2014 12/01/19 15 documented as of this encounter (statuses as of 09/17/2022) [address]21-2015 History of Past illness Narrative* Problem Noted Date Diagnosed Date Resolved Date Type II or unspecified type diabetes mellitus without mention of complication, not stated as uncontrolled 09/25/2014 02/19/2015 Other and unspecified hyperlipidemia 09/25/2014 06/21/2015 BMI 38.0-38.9,adult 09/25/2014 12/01/19 15 documented as of this encounter (statuses as of 09/23/2022) [address]2015 History of Past illness Narrative* Problem Noted Date Diagnosed Date Resolved Date Type II or unspecified type diabetes mellitus without mention of complication, not stated as uncontrolled 09/25/2014 02/19/2015 Other and unspecified hyperlipidemia 09/25/2014 06/21/2015 BMI 38.0-38.9,adult 09/25/2014 12/01/19 15 documented as of this encounter (statuses as of 10/15/2022) [address]2015 History of Past illness Narrative* Problem Noted Date Diagnosed Date Resolved Date Type II or unspecified type diabetes mellitus without mention of complication, not stated as uncontrolled 09/25/2014 02/19/2015 Other and unspecified hyperlipidemia 09/25/2014 06/21/2015 BMI 38.0-38.9,adult 09/25/2014 12/01/19 15 documented as of this encounter (statuses as of 11/03/2022) [facility] History of Past illness Narrative* Problem Noted Date Diagnosed Date Resolved Date Type II or unspecified type diabetes mellitus without mention of complication, not stated as uncontrolled 09/25/2014 02/19/2015 Other and unspecified hyperlipidemia 09/25/2014 06/21/2015 BMI 38.0-38.9,adult 09/25/2014 12/01/19 15 documented as of this encounter (statuses as of 12/11/2022) [address]2015 History of Past illness Narrative* Problem Noted Date Diagnosed Date Resolved Date Type II or unspecified type diabetes mellitus without mention of complication, not stated as uncontrolled 09/25/2014 02/19/2015 Other and unspecified hyperlipidemia 09/25/2014 06/21/2015 BMI 38.0-38.9,adult 09/25/2014 12/01/19 15 documented as of this encounter (statuses as of 12/18/2022) [address]2015 History of Past illness Narrative* Problem Noted Date Diagnosed Date Resolved Date Type II or unspecified type diabetes mellitus without mention of complication, not stated as uncontrolled 09/25/2014 02/19/2015 Other and unspecified hyperlipidemia 09/25/2014 06/21/2015 BMI 38.0-38.9,adult 09/25/2014 12/01/19 15 documented as of this encounter (statuses as of 01/12/2023) [address]-2015 History of Past illness Narrative* Problem Noted Date Diagnosed Date Resolved Date Type II or unspecified type diabetes mellitus without mention of complication, not stated as uncontrolled 09/25/2014 02/19/2015 Other and unspecified hyperlipidemia 09/25/2014 06/21/2015 BMI 38.0-38.9,adult 09/25/2014 12/01/19 15 documented as of this encounter (statuses as of 01/15/2023) [facility]07-21-2015 History of Past illness Narrative* Problem Noted Date Diagnosed Date Resolved Date Type II or unspecified type diabetes mellitus without mention of complication, not stated as uncontrolled 09/25/2014 02/19/2015 Other and unspecified hyperlipidemia 09/25/2014 06/21/2015 BMI 38.0-38.9,adult 09/25/2014 12/01/19 15 documented as of this encounter (statuses as of 02/11/2023) [address]-2015 History of Past illness Narrative* Problem Noted Date Diagnosed Date Resolved Date Type II or unspecified type diabetes mellitus without mention of complication, not stated as uncontrolled 09/25/2014 02/19/2015 Other and unspecified hyperlipidemia 09/25/2014 06/21/2015 BMI 38.0-38.9,adult 09/25/2014 12/01/19 15 documented as of this encounter (statuses as of 04/12/2023) [address]21-2015 History of Past illness Narrative* Problem Noted Date Diagnosed Date Resolved Date Type II or unspecified type diabetes mellitus without mention of complication, not stated as uncontrolled 09/25/2014 02/19/2015 Other and unspecified hyperlipidemia 09/25/2014 06/21/2015 BMI 38.0-38.9,adult 09/25/2014 12/01/19 15 documented as of this encounter (statuses as of 04/26/2023) [address]-2015 History of Past illness Narrative* Problem Noted Date Diagnosed Date Resolved Date Type II or unspecified type diabetes mellitus without mention of complication, not stated as uncontrolled 09/25/2014 02/19/2015 Other and unspecified hyperlipidemia 09/25/2014 06/21/2015 BMI 38.0-38.9,adult 09/25/2014 12/01/19 15 documented as of this encounter (statuses as of 04/27/2023) [facility]2015 History of Past illness Narrative* Problem Noted Date Diagnosed Date Resolved Date Type II or unspecified type diabetes mellitus without mention of complication, not stated as uncontrolled 09/25/2014 02/19/2015 Other and unspecified hyperlipidemia 09/25/2014 06/21/2015 BMI 38.0-38.9,adult 09/25/2014 12/01/19 15 documented as of this encounter (statuses as of 04/29/2023) [facility]2015 History of Past illness Narrative* Problem Noted Date Diagnosed Date Resolved Date Type II or unspecified type diabetes mellitus without mention of complication, not stated as uncontrolled 09/25/2014 02/19/2015 Other and unspecified hyperlipidemia 09/25/2014 06/21/2015 BMI 38.0-38.9,adult 09/25/2014 12/01/19 15 documented as of this encounter (statuses as of 05/10/2023) [facility] History of Past illness Narrative* Problem Noted Date Diagnosed Date Resolved Date Type II or unspecified type diabetes mellitus without mention of complication, not stated as uncontrolled 09/25/2014 02/19/2015 Other and unspecified hyperlipidemia 09/25/2014 06/21/2015 BMI 38.0-38.9,adult 09/25/2014 12/01/19 15 documented as of this encounter (statuses as of 06/08/2023) [facility] Vitamin B12 deficiency- Primary Other B-complex [facility] Vitamin B12 deficiency- Primary Other B-complex [facility] Vitamin D deficiency- Primary Unspecified vitamin D deficiency Abnormal TSH Other abnormal clinical finding Essential hypertension Unspecified essential hypertension Mixed hyperlipidemia Controlled type 2 diabetes mellitus without complication, without long-term current use of insulin (HCC) [facility] Diagnosis Vitamin B12 deficiency- Primary Other B-complex deficiencies [facility]* Diagnosis Leukocytosis, unspecified type- Primary Hypothyroidism, unspecified type Diabetes mellitus type 2 with complications (HCC) Type II or unspecified type diabetes mellitus with unspecified complication, not stated as uncontrolled [facility]* Diagnosis Vitamin B12 deficiency- Primary Other B-complex deficiencies [facility]* Diagnosis Diabetes mellitus type 2 with complications (HCC)- Primary Type II or unspecified type diabetes mellitus with unspecified complication, not stated as uncontrolled [facility]* Diagnosis Vitamin B12 deficiency- Primary Other B-complex deficiencies [facility]* Diagnosis Diabetes mellitus type 2 with complications (HCC)- Primary Type II or unspecified type diabetes mellitus with unspecified complication, not stated as uncontrolled Mixed hyperlipidemia Essential hypertension Unspecified essential hypertension Paroxysmal A-fib (HCC) Atrial fibrillation documented in this encounter [facility] note* Diagnosis Breast cancer screening by mammogram- Primary [facility] Diagnosis Vitamin B 12 deficiency- Primary Other B-complex deficiencies [facility]* Diagnosis Diabetes mellitus type 2 with complications (HCC)- Primary Type II or unspecified type diabetes mellitus with unspecified complication, not stated as uncontrolled Essential hypertension Unspecified essential hypertension Colon cancer screening Special screening for malignant neoplasms, colon documented [facility]* Diagnosis Acute right-sided low back pain with right-sided sciatica- Primary Bronchitis Bronchitis, not specified as acute or chronic [facility]* Diagnosis Onset Date Resolution Status Essential (primary) hypertension chronic Hyperlipidemia chronic Nonobstructive atheroscleros is of coronary artery chronic Paroxysmal atrial flutter ch ronic Hypothyroidism acute Neurologic abnormality acute CVA (cerebral vascular accident) February 06, 2020 chronic Essential (primary) hypertension chronic Mitral valve annular calcification chronic Paroxysmal atrial flutter ch ronic Type 2 diabetes mellitus [facility] Work Phone: Evaluation note* Diagnosis Onset Date Resolution Status Essential (primary) hypertension chronic Hyperlipidemia chronic Nonobstructive atheroscleros is of coronary artery chronic Paroxysmal atrial flutter ch ronic Expressive aphasia acute History of diabetes mellitus acute History of hypertension acut e History of stroke acute Hypothyroidism acute Neurologic abnormality acute Receptive aphasia acute CVA (cerebral vascular accident) February 06, 2020 chronic Essential (primary) hypertension chronic Mitral valve annular calcification chronic Paroxysmal atrial flutter ch ronic Type 2 diabetes mellitus chr onic [facility] Work Phone: Evaluation note* Diagnosis History of recent hospitalization- Primary Personal history of unspecified disease Cerebrovascular accident (CVA), unspecified mechanism (HCC) Weakness of right lower extremity Urinary frequency Other fatigue Blood in stool Left upper quadrant abdominal tenderness without rebound tenderness Nausea and vomiting, unspecified vomiting type [facility] Diagnosis Urinary tract infection without hematuria, site unspecified- Primary [facility] Diagnosis Onset Date Resolution Status Hyperlipidemia chronic Nonobstructive atherosclerosis of coronary artery chronic [facility] Work Phone: Evaluation note* Diagnosis Type 2 diabetes mellitus with hyperglycemia, without long-term current use of insulin ([facility])- Primary Essential hypertension Unspecified essential hypertension Vitamin B 12 deficiency Other B-complex deficiencies Acute vaginitis Vaginitis and vulvovaginitis, unspecified [facility] Diagnosis Acute vaginitis Vaginitis and vulvovaginitis, unspecified [facility] Diagnosis Type 2 diabetes mellitus with hyperglycemia, without long-term current use of insulin ([facility])- Primary Acute vaginitis Vaginitis and vulvovaginitis, unspecified Cerebrovascular accident (CVA), unspecified mechanism (HCC) Dysuria [facility] Diagnosis Vitamin B12 deficiency- Primary Other B-complex deficiencies [facility] Diagnosis Vitamin B 12 deficiency- Primary Other B-complex deficiencies [facility] Diagnosis Essential hypertension- Primary Unspecified essential hypertension Mixed hyperlipidemia Vitamin B 12 deficiency Other B-complex deficiencies Type 2 diabetes mellitus with hyperglycemia, without long-term current use of insulin (HCC) Paroxysmal A-fib (HCC) Atrial fibrillation [facility] Diagnosis Type 2 diabetes mellitus with hyperglycemia, without long-term current use of insulin (HCC)- Primary Cerebrovascular accident (CVA), unspecified mechanism (HCC) Mixed hyperlipidemia Essential hypertension Unspecified essential hypertension [facility] Diagnosis Acute right-sided low back pain with right-sided sciatica- Primary Chronic low back pain, unspecified back pain laterality, unspecified whether sciatica present Closed fracture of second lumbar vertebra with routine healing, unspecified fracture morphology, subsequent encounter [facility] Diagnosis Vitamin B 12 deficiency- Primary Other B-complex deficiencies [facility]* Diagnosis Occipital stroke (HCC) Unspecified cerebral artery occlusion with cerebral infarction Type 2 diabetes mellitus with hyperglycemia, without long-term current use of insulin (HCC) [facility] Diagnosis Vitamin B 12 deficiency- Primary Other B-complex deficiencies [facility] Diagnosis Type 2 diabetes mellitus with hyperglycemia, without long-term current use of insulin (HCC) [facility] Diagnosis Uncontrolled type 2 diabetes mellitus without complication, without long-term current use of insulin- Primary Essential hypertension Unspecified essential hypertension 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, uncontrolled Mixed hyperlipidemia Mixed hyperlipidemia- Primary Essential hypertension Unspecified essential hypertension 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, uncontrolled Other allergic rhinitis Mixed hyperlipidemia- Primary Uncontrolled type 2 diabetes mellitus without complication, without long-term current use of insulin Essential hypertension Unspecified essential hypertension Hypertriglyceridemia 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)- Primary Type II or unspecified type diabetes mellitus with unspecified complication, not stated as uncontrolled Essential hypertension Unspecified essential hypertension Paroxysmal A-fib (HCC) Atrial fibrillation Hypothyroidism, unspecified type [facility] Diagnosis Uncontrolled type 2 diabetes mellitus without complication, without long-term current use of insulin- Primary Essential hypertension Unspecified essential hypertension 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, uncontrolled Mixed hyperlipidemia Mixed hyperlipidemia- Primary Essential hypertension Unspecified essential hypertension 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, uncontrolled Other allergic rhinitis Mixed hyperlipidemia- Primary Uncontrolled type 2 diabetes mellitus without complication, without long-term current use of insulin Essential hypertension Unspecified essential hypertension Hypertriglyceridemia Pure hyperglyceridemia Essential hypertension- Primary Unspecified essential hypertension Diabetes mellitus type 2 with complications (HCC) Type II or unspecified type diabetes mellitus with unspecified complication, not stated as uncontrolled Mixed hyperlipidemia Paroxysmal A-fib (HCC) Atrial fibrillation Hypothyroidism, unspecified type [facility] Diagnosis Uncontrolled type 2 diabetes mellitus without complication, without long-term current use of insulin- Primary Essential hypertension Unspecified essential hypertension 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, uncontrolled Mixed hyperlipidemia Mixed hyperlipidemia- Primary Essential hypertension Unspecified essential hypertension 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, uncontrolled Other allergic rhinitis Mixed hyperlipidemia- Primary Uncontrolled type 2 diabetes mellitus without complication, without long-term current use of insulin Essential hypertension Unspecified essential hypertension Hypertriglyceridemia Pure hyperglyceridemia Vitamin B 12 deficiency- Primary Other B-complex deficiencies [facility]* Diagnosis Uncontrolled type 2 diabetes mellitus without complication, without long-term current use of insulin- Primary Essential hypertension Unspecified essential hypertension 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, uncontrolled Mixed hyperlipidemia Mixed hyperlipidemia- Primary Essential hypertension Unspecified essential hypertension 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, uncontrolled Other allergic rhinitis Mixed hyperlipidemia- Primary Uncontrolled type 2 diabetes mellitus without complication, without long-term current use of insulin Essential hypertension Unspecified essential hypertension Hypertriglyceridemia Pure hyperglyceridemia Acute right-sided low back pain with right-sided sciatica Pain of right lower extremity documented in this encounter [facility] note* Diagnosis Uncontrolled type 2 diabetes mellitus without complication, without long-term current use of insulin- Primary Essential hypertension Unspecified essential hypertension 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, uncontrolled Mixed hyperlipidemia Mixed hyperlipidemia- Primary Essential hypertension Unspecified essential hypertension 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, uncontrolled Other allergic rhinitis Mixed hyperlipidemia- Primary Uncontrolled type 2 diabetes mellitus without complication, without long-term current use of insulin Essential hypertension Unspecified essential hypertension Hypertriglyceridemia Pure hyperglyceridemia History of recent hospitalization- Primary Personal history of unspecified disease Urinary tract infection without hematuria, site unspecified Hypomagnesemia Disorders of magnesium metabolism Thyroid nodule Nontoxic uninodular goiter [facility]* Diagnosis Uncontrolled type 2 diabetes mellitus without complication, without long-term current use of insulin- Primary Essential hypertension Unspecified essential hypertension 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, uncontrolled Mixed hyperlipidemia Mixed hyperlipidemia- Primary Essential hypertension Unspecified essential hypertension 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, uncontrolled Other allergic rhinitis Mixed hyperlipidemia- Primary Uncontrolled type 2 diabetes mellitus without complication, without long-term current use of insulin Essential hypertension Unspecified essential hypertension Hypertriglyceridemia Pure hyperglyceridemia Thyroid nodule Nontoxic uninodular goiter [facility]* Diagnosis Uncontrolled type 2 diabetes mellitus without complication, without long-term current use of insulin- Primary Essential hypertension Unspecified essential hypertension 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, uncontrolled Mixed hyperlipidemia Mixed hyperlipidemia- Primary Essential hypertension Unspecified essential hypertension 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, uncontrolled Other allergic rhinitis Mixed hyperlipidemia- Primary Uncontrolled type 2 diabetes mellitus without complication, without long-term current use of insulin Essential hypertension Unspecified essential hypertension Hypertriglyceridemia Pure hyperglyceridemia Thyroid nodule- Primary Nontoxic uninodular goiter [facility] Diagnosis Uncontrolled type 2 diabetes mellitus without complication, without long-term current use of insulin- Primary Essential hypertension Unspecified essential hypertension 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, uncontrolled Mixed hyperlipidemia Mixed hyperlipidemia- Primary Essential hypertension Unspecified essential hypertension 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, uncontrolled Other allergic rhinitis Mixed hyperlipidemia- Primary Uncontrolled type 2 diabetes mellitus without complication, without long-term current use of insulin Essential hypertension Unspecified essential hypertension Hypertriglyceridemia Pure hyperglyceridemia Vitamin B 12 deficiency- Primary Other B-complex deficiencies [facility]* Diagnosis Uncontrolled type 2 diabetes mellitus without complication, without long-term current use of insulin- Primary Essential hypertension Unspecified essential hypertension 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, uncontrolled Mixed hyperlipidemia Mixed hyperlipidemia- Primary Essential hypertension Unspecified essential hypertension 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, uncontrolled Other allergic rhinitis Mixed hyperlipidemia- Primary Uncontrolled type 2 diabetes mellitus without complication, without long-term current use of insulin Essential hypertension Unspecified essential hypertension Hypertriglyceridemia Pure hyperglyceridemia Urinary tract infection without hematuria, site unspecified- Primary Essential hypertension Unspecified essential hypertension Diabetes mellitus type 2 with complications (HCC) Type II or unspecified type diabetes mellitus with unspecified complication, not stated as uncontrolled [facility] Diagnosis Uncontrolled type 2 diabetes mellitus without complication, without long-term current use of insulin- Primary Essential hypertension Unspecified essential hypertension 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, uncontrolled Mixed hyperlipidemia Mixed hyperlipidemia- Primary Essential hypertension Unspecified essential hypertension 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, uncontrolled Other allergic rhinitis Mixed hyperlipidemia- Primary Uncontrolled type 2 diabetes mellitus without complication, without long-term current use of insulin Essential hypertension Unspecified essential hypertension Hypertriglyceridemia Pure hyperglyceridemia Vitamin B 12 deficiency- Primary Other B-complex deficiencies [facility] Diagnosis Uncontrolled type 2 diabetes mellitus without complication, without long-term current use of insulin- Primary Essential hypertension Unspecified essential hypertension 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, uncontrolled Mixed hyperlipidemia Mixed hyperlipidemia- Primary Essential hypertension Unspecified essential hypertension 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, uncontrolled Other allergic rhinitis Mixed hyperlipidemia- Primary Uncontrolled type 2 diabetes mellitus without complication, without long-term current use of insulin Essential hypertension Unspecified essential hypertension Hypertriglyceridemia Pure hyperglyceridemia Thyroid nodule Nontoxic uninodular goiter [facility] Uncontrolled type 2 diabetes mellitus without complication, without long-term current use of insulin- Primary Essential hypertension Unspecified essential hypertension 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, uncontrolled Mixed hyperlipidemia Mixed hyperlipidemia- Primary Essential hypertension Unspecified essential hypertension 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, uncontrolled Other allergic rhinitis Mixed hyperlipidemia- Primary Uncontrolled type 2 diabetes mellitus without complication, without long-term current use of insulin Essential hypertension Unspecified essential hypertension Hypertriglyceridemia Pure hyperglyceridemia Thyroid nodule- Primary Nontoxic uninodular goiter [facility] Diagnosis Uncontrolled type 2 diabetes mellitus without complication, without long-term current use of insulin- Primary Essential hypertension Unspecified essential hypertension 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, uncontrolled Mixed hyperlipidemia Mixed hyperlipidemia- Primary Essential hypertension Unspecified essential hypertension 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, uncontrolled Other allergic rhinitis Mixed hyperlipidemia- Primary Uncontrolled type 2 diabetes mellitus without complication, without long-term current use of insulin Essential hypertension Unspecified essential hypertension Hypertriglyceridemia 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)- Primary Type II or unspecified type diabetes mellitus with unspecified complication, not stated as uncontrolled Urinary tract infection without hematuria, site unspecified Lower abdominal tenderness Abdominal tenderness, other specified site documented in this encounter [facility]* Diagnosis Uncontrolled type 2 diabetes mellitus without complication, without long-term current use of insulin- Primary Essential hypertension Unspecified essential hypertension 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, uncontrolled Mixed hyperlipidemia Mixed hyperlipidemia- Primary Essential hypertension Unspecified essential hypertension 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, uncontrolled Other allergic rhinitis Mixed hyperlipidemia- Primary Uncontrolled type 2 diabetes mellitus without complication, without long-term current use of insulin Essential hypertension Unspecified essential hypertension Hypertriglyceridemia Pure hyperglyceridemia Vitamin B 12 deficiency- Primary Other B-complex deficiencies [facility] Diagnosis Uncontrolled type 2 diabetes mellitus without complication, without long-term current use of insulin- Primary Essential hypertension Unspecified essential hypertension 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, uncontrolled Mixed hyperlipidemia Mixed hyperlipidemia- Primary Essential hypertension Unspecified essential hypertension 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, uncontrolled Other allergic rhinitis Mixed hyperlipidemia- Primary Uncontrolled type 2 diabetes mellitus without complication, without long-term current use of insulin Essential hypertension Unspecified essential hypertension Hypertriglyceridemia Pure hyperglyceridemia Type 2 diabetes mellitus with hyperglycemia, without long-term current use of insulin (HCC)- Primary Occipital stroke (HCC) Unspecified cerebral artery occlusion with cerebral infarction Essential hypertension Unspecified essential hypertension Thyroid nodule Nontoxic uninodular goiter [facility] encounter [facility] Diagnosis Uncontrolled type 2 diabetes mellitus without complication, without long-term current use of insulin- Primary Essential hypertension Unspecified essential hypertension 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, uncontrolled Mixed hyperlipidemia Mixed hyperlipidemia- Primary Essential hypertension Unspecified essential hypertension 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, uncontrolled Other allergic rhinitis Mixed hyperlipidemia- Primary Uncontrolled type 2 diabetes mellitus without complication, without long-term current use of insulin Essential hypertension Unspecified essential hypertension Hypertriglyceridemia Pure hyperglyceridemia Urinary frequency- Primary Left flank pain Abdominal pain, unspecified site Acute cystitis with hematuria Acute cystitis shelter (current) use of oral hypoglycemic drugs [facility] Diagnosis Onset Date Resolution Status Admit Date CVA (cerebral vascular accident) acu te September 06, 2024 7:55am Hyperlipidemia chronic September 06, 2024 7:55am Nonobstructive atheroscleros is of coronary artery chronic September 06 7:55am Essential (primary) hypertension ivana ctive September 06, 2024 7:55am Paroxysmal atrial flutter inactive September 06, 2024 7:55am [employer] Work Phone: History and physical note Author Dr. Patiño [facility] August 25, 2022 6:33pm Note Date/Time August 25, 2022 6:23 pm [facility] Medical Records Department [address] [place] [id number] H&P Exam - Hospitalist 08/25/221812 MR#: [id number] Acct: [id number] Name: BRITNEY CANADA Rep #:[id number] : 1945 76 From: Christal Patioñ MD PCP: Dr. Jones Velasquez MD Status:ADM I N Location: [place] [id number] HPI - General General Date of Admission: 08/25/22 Date of Service: 08/25/22 Chief Complaint: Difficulty expressing words HPI Narrative BRITNEY CANADA, is a 76 F with a history of CVA 3 years ago, paroxysmal atrial flutter on Eliquis, hypertension, thyroidism type 2 diabetes who scented to [facility] 08/25/2022 due to difficulty getting her words out andnot acting normal for several hours. History provided primarily by her due to patient's difficulty answering questions and her frustration in doing so. He was in her usual health and woke up at 1030 in her usual health but at 1130 she was not acting like her usual self and responding appropriately so ultimately she was brought to the emergency department as a stroke call at 4 PM. The timeline as well as being on Eliquis she was not deemed a candidate fortenecteplase and had no large vessel occlusion. Hospitalist consulted for admission. Patient reportedly had slightly improved as far as understanding andresponding however still had difficulty significant difficulty at times though in part seemed worsened by frustration. Patient having back pain which is chronic and had injection 1 week ago which was only minimally helpful but had not been complaining of any focal complaints leading up to current event. Has possible slight headache, was unable to comment on changes in vision but does have some chronic spots with decreased vision after her old stroke. No chest pain or shortness of breath, patient answered I do not know to multiple questions however did not endorse any other focal or specific complaints. [facility] Medical History CVA (cerebral vascular accident) (02/06/20) Essential (primary) hypertension History of non-ST elevation myocardial infarction (NSTEMI) (02/06/20) Hyperlipidemia Mitral valve annular calcification Nonobstructive atherosclerosis of coronary artery Nonsustained paroxysmal ventricular tachycardia Paroxysmal atrial flutter Type 2 diabetes mellitus Visual changes Home Medications losartan 50 mg tablet 50 mg PO DAILY 03/15/19 [History Last Taken 04/01/20] metformin 500 mg tablet,extended release 24 hr 1,000 mg PO DINNER dm 02/06/20 [History Last Taken 03/30/20] aspirin 81 mg chewable tablet 81 mg PO DAILY@0800 ##30 02/08/20 [Rx Last Taken 04/01/20] mecobalamin (vitamin B12) 10,000 mcg solution for injection 1,000 mcg IM BSEBHSW22/08/20 [History Last Taken Unknown] atorvastatin 80 mg tablet 80 mg PO QHS #90 tabs 08/12/21 [Rx Last Taken Unknown] metoprolol tartrate 25 mg tablet 25 mg PO BID #180 tabs 12/01/21 [Rx Last Taken Unknown] apixaban 5 mg tablet (Eliquis) 5 mg PO BID #180 tabs 08/12/22 [Rx Last Taken Unknown] benzonatate 100 mg capsule 100 mg PO BID-TID PRN 08/12/22 [History Last Taken Unknown] cholecalciferol (vitamin D3) 25 mcg (1,000 unit) capsule 25 mcg PO DAILY PRN 08/12/22 [History Last Taken Unknown] levothyroxine 50 mcg capsule 50 mcg PO DAILY 08/12/22 [History Last Taken Unknown] tizanidine 2 mg capsule 2 mg PO Q8H PRN 08/12/22 [History Last Taken Unknown] Allergy/AdvReac Type Severity Reaction Status Date / Time Penicillins Allergy Rash Verified 08/12/22 10:36 propoxyphene [From Darvon] AdvReac Nausea/Vom/ Verified 08/12/22 10:36 Diarrhea Family History Father Myocardial infarction Brother Myocardial infarction Mother CVA (cerebral vascular accident) Heart disease Grandmother Myocardial infarction Uncle Myocardial infarction Surgical History History of cholecystectomy History of hernia repair History of left heart catheterization (04/01/20) Social History Smoking Status: Never smoker Electronic Cigarette Use: not used second hand exposure: Yes alcohol intake: current alcohol intake frequency: holidays/special occasions only Alcohol type: wine substance use type: does not use ROS ROS Narrative Patient had difficulty with multiple ROS questions however denied chest pain or shortness of breath, does have back pain which is chronic and a slight headache,did not endorse any other specific complaints Vital Signs Vital Signs Vital Signs: 08/25/22 16:10 08/25/22 16:00 08/25/22 16:34 Temperature 98.5 F 98.3 F Temperature Source Oral Oral Pulse Rate 95 93 89 Respiratory Rate 26 H 16 16 Blood Pressure 137/53 H 155/88 H 166/84 H Blood Pressure Mean 81 110 111 Pulse Ox 98 98 Oxygen Delivery Method Room Air Room Air 08/25/22 17:16 08/25/22 17:00 08/25/22 17:00 Temperature Temperature Source Pulse Rate 88 88 Respiratory Rate 16 16 Blood Pressure 128/74 H 148/77 H Blood Pressure Mean 92 100 Pulse Ox 98 99 Oxygen Delivery Method Room Air Room Air Weight Weight: 97.4 kg Body Mass Index (BMI) 39.2 Physical Exam Narrative General: Alert, patient with difficulty answering orientation questions, appearsupset HEENT: Atraumatic, normocephalic Eyes: Anicteric, normal conjunctiva, extraocular movements grossly, at one pointpatient would not open eyes to test formal movements Neck: Supple Respiratory: Clear to auscultation bilaterally, normal respiratory effort Cardiovascular: Regular rate and rhythm GI: Soft, nontender, nondistended Extremities: No edema Musculoskeletal: Strength equal in upper and lower extremities, patient with difficulty pulling or pushing on hands but had brief bursts of adequate strengthwith multiple prompts, 5 out of 5 right lower extremity, 5 out of 5 left lower extremity Neuro: No overt focal neurological deficits aside from some aspects of expressive and receptive aphasia, cranial nerves II through XII intact, patient would not perform [id number], no clonus in lower extremities Skin: No rashes appreciated Psych: Appears anxious Results Lab / Micro Data Result Diagrams: 08/25/22 16:00 08/25/22 16:00 Labs: Laboratory Results - last 24 hr 08/25/22 16:00: WBC 14.1 H, RBC 4.35, Hgb 12.4, Hct 38.2, MCV 87.8, MCH 28.5, MCHC 32.5, RDW Std Deviation 43.8, RDW Coeff of Landy 13.7, Plt Count 503 H, MPV 10.0, Immature Gran % (Auto) 0.600, Neut % (Auto) 68.9, Lymph % (Auto) 23.7, Pecos % (Auto) 6.2, Eos % (Auto) 0.2, Baso % (Auto) 0.4, Absolute Neuts (auto) 9.7 H, Absolute Lymphs (auto) 3.34, Nucleated RBC % 0 08/25/22 16:00: PT 14.4, INR 1.1, APTT 30.0 08/25/22 16:00: Sodium 134 L, Potassium 3.9, Chloride 101, Carbon Dioxide 25.0, Anion Gap 8, BUN 12, Creatinine 0.83, Est GFR (MDRD) Af Amer 86, Est GFR (MDRD) Non-Af 71, BUN/Creatinine Ratio 14.5, Glucose 334 H, Calcium 9.3, Troponin I High Sens 11 08/25/22 16:29: POC Glucose 316 H Radiology Impression Brain CT 08/25/22 15:52 IMPRESSION: 1. No acute intracranial abnormality. There has been no change from the reference examination. 2. Stable remote right occipital infarct. There are stable underlying senescent changes with small vessel ischemia. 3. Aspects score 10. Electronically Signed: César D. Breckwoldt, MD at 16:06 EDT , ADDENDUM: 08/25/22 1614 IMPRESSION: 1. No acute intracranial abnormality. There has been no change from the reference examination. 2. Stable remote right occipital infarct. There are stable underlying senescent changes with small vessel ischemia. 3. Aspects score 10. N.B. : The above Results were Read Back by César Segura MD to Tejas Lew MD, and understanding confirmed on 08/25/2022 16:07:57 (ET). Electronically Signed: César Segura MD at 16:06 EDT , Head/Neck CTA 08/25/22 15:52 IMPRESSION: Negative CTA carotid and CTA brain. Electronically Signed: César Segura MD at 16:23 EDT , ADDENDUM: 08/25/22 1632 IMPRESSION: Negative CTA carotid and CTA brain. N.B. : The above Results were Read Back by César Segura MD to Tejas Lew MD, and understanding confirmed on 08/25/2022 16:25:55 (ET). Electronically Signed: César Segura MD at 16:23 EDT , Chest X-Ray 08/25/22 16:42 IMPRESSION: No radiographic evidence of acute cardiopulmonary disease. Electronically Signed: César Segura MD at 17:15 EDT , Assessment & Plan Assessment/Plan (1) Neurologic abnormality: (2) CVA (cerebral vascular accident): QUALIFIERS: CVA mechanism: embolism Precerebral and cerebral artery: posterior cerebral artery Laterality of affected vessel: right Qualified Code(s): I63.431 - Cerebral infarction due to embolism of right posterior cerebral artery (3) Type 2 diabetes mellitus: (4) Essential (primary) hypertension: (5) Mitral valve annular calcification: (6) Paroxysmal atrial flutter: (7) Hypothyroidism: PLAN: Plan #Expressive and receptive aphasia -Admit to tele -CT head w/ old stroke on right side and CTA with no large vessel occlusion -NIH q4hr -Was seen as a stroke call on arrival and was not a candidate for intervention. It was recommended she be admitted and to continue aspirin 81 mg and obtain MRI and to hold Eliquis, can consider restarting at 48 hours pending findings -asa, statin -Echo w/ bubble study -PT/OT/Speech eval -Hold BP medications to allow for permissive hypertension for 24 hours unless SBP greater than 220 or DBP greater than 120 or until stroke is ruled out #History of CVA -History of ischemic right occipital cortical stroke in February 2020 -Follows with Dr. Lee -See above #Chronic back pain -Tylenol and oxycodone. Pain with lidocaine patch topical -Follows with Dr. Serra on outpatient basis #Paroxysmal atrial flutter -On metoprolol, holding Eliquis, presently normal sinus rhythm -Troponins within normal limits as well on arrival #Hypertension -Permissive hypertension as above #Hypothyroidism -Continue Synthroid #Type 2 diabetes mellitus -Glucose checks and sliding scale insulin Discussed CODE STATUS with patient and her , patient with difficulty expressing her wishes given present complaint, when asked about full code versusDNR/DNI patient's reported she has a living will with a standing DO NOT RESUSCITATE order #DVT ppx: SCDs Christal Patiño MD Time spent in the patient's overall evaluation,decision-making process, review of diagnostic data, adjustment of management, discussion with other providers, nursing nursing and ancillary staff involved in patient's care documentation, 60minutes Charges/Coding Visit Charges Inpatient E&M: 92950 Init Hosp L2 08/25/22 1833 <Electronically signed by Christal Patiño MD> Cosigner Signature (if applicable): CC: Dr. Jones Velasquez MD; Dr. Christal Patiño MD~ Signed [facility] Work Phone: Hospital course Narrative No data available for this section [facility] Reason for referral (narrative)* Diagnostic Procedure Only (Routine) - Pending Review Specialty Diagnoses / Procedures Referred By Contac t Referred To Contact BR IMAGING Diagnoses Breast cancer screening by mammogram Procedures GISELLE SCREENING SCREENING MAMMOGRAPHY BI 2-VIEW BREAST INC CAD Jones Velasquez MD [address] [place] [address] [facility] [address] [place] [place] [address] Referral ID Status Reason Start Date Expiration Date Visits Requested Visits Authorized [id number] Pending Review Auto-Generat ed Referral 04/16/2022 05/15/2023 1 1 [facility] for referral (narrative)* Diagnostic Procedure Only (Routine) - Closed Specialty Diagnoses / Procedures Referred By Contac t Referred To Contact XR IMAGING Diagnoses Acute right-sided low back pain with right-sided sciatica Pain of right lower extremity Procedures XR LUMBAR GENERAL 3V AP/LAT/L5-S1 RADEX SPINE LUMBOSACRAL 2/3 VIEWS sAtrid Muse APRN.CNP [address] [place] [address] [place] [address] Referral ID Status Reason Start Date Expiration Date V isits Requested Visits Authorized [id number] Closed Auto-Generate d Referral 07/13/2022 08/12/2023 1 1 [facility] for referral (narrative)* Diagnostic Procedure Only (Routine) - Authorized Specialty Diagnoses / Procedures Referred By Contac t Referred To Contact US IMAGING Diagnoses Thyroid nodule Procedures US THYROID/PARATHYROID US SOFT TISSUE HEAD & NECK REAL TIME IMGE DOCM Astrid Muse APRN.FINISH CLEANER [address] [place] [address] [place] [address] Referral ID Status Reason Start Date Expiration Date Visits Requested Visits Authorized [id number] Authorized Auto-Generat ed Referral 03/03/2025 1 1 [facility]No reason for referral information availableDushore [facility] Work Phone: Reason for visit Narrative* Diagnostic Procedure Only (Routine) - Closed Specialty Diagnoses / Procedures Referred By Marniac t Referred To Contact XR IMAGING Diagnoses Acute right-sided low back pain with right-sided sciatica Pain of right lower extremity Procedures XR LUMBAR GENERAL 3V AP/LAT/L5-S1 RADEX SPINE LUMBOSACRAL 2/3 VIEWS Astrid Muse APRN.FINISH CLEANER [address] [place] [address] [place] [address] Referral ID Status Reason Start Date Expiration Date V isits Requested Visits Authorized [id number] Closed Auto-Generate d Referral 07/13/2022 08/12/2023 1 1 [facility] Medications Administered Section Active Administered Medications - up to 3 most recent administrations Medication Order MAR Action Action Date Dose Rate Site cyanocobalamin 1,000 mcg injection 1,000 mcg, INTRAMUSCULAR, EVERY 4 WEEKS, 12 doses, First dose on Wed04/15/21 at 1530, Last dose on Wed02/17/22 at 1530 Given 06/10/2021 1:29 PM EDT 1,000 mcg Deltoid, Right Given 05/09/2021 11:26 AM EST 1,000 mcg D eltoid, Left Given 04/15/2021 3:35 PM EST 1,000 mcg De ltoid, Right Active Administered Medications - up to 3 most recent administrations Medication Order MAR Action Action Date Dose Rate Site cyanocobalamin 1,000 mcg injection 1,000 mcg, INTRAMUSCULAR, EVERY 4 WEEKS, 12 doses, First dose on Wed04/15/21 at 1530, Last dose on Wed02/17/22 at 1530 Given 07/15/2021 10:43 AM EDT 1,000 mcg Deltoid, Left Given 06/10/2021 1:29 PM EDT 1,000 mcg De ltoid, Right Given 05/09/2021 11:26 AM EST 1,000 mcg D eltoid, Left Active Administered Medications - up to 3 most recent administrations Medication Order MAR Action Action Date Dose Rate Site cyanocobalamin 1,000 mcg injection 1,000 mcg, INTRAMUSCULAR, EVERY 4 WEEKS, 12 doses, First dose on Wed04/15/21 at 1530, Last dose on Wed02/17/22 at 1530 Given 08/15/2021 12:43 PM EDT 1,000 mcg Deltoid, Right Given 07/15/2021 10:43 AM EDT 1,000 mcg D eltoid, Left Given 06/10/2021 1:29 PM EDT 1,000 mcg De ltoid, Right Active Administered Medications - up to 3 most recent administrations Medication Order MAR Action Action Date Dose Rate Site cyanocobalamin 1,000 mcg injection 1,000 mcg, INTRAMUSCULAR, EVERY 4 WEEKS, 12 doses, First dose on Wed04/15/21 at 1530, Last dose on Wed02/17/22 at 1530 Given 09/12/2021 9:49 AM EDT 1,000 mcg Deltoid, Left Given 08/15/2021 12:43 PM EDT 1,000 mcg D eltoid, Right Given 07/15/2021 10:43 AM EDT 1,000 mcg D eltoid, Left Active Administered Medications - up to 3 most recent administrations Medication Order MAR Action Action Date Dose Rate Site cyanocobalamin 1,000 mcg injection 1,000 mcg, INTRAMUSCULAR, EVERY 4 WEEKS, 12 doses, First dose on Wed04/15/21 at 1530, Last dose on Wed02/17/22 at 1530 Given 10/10/2021 9:50 AM EDT 1,000 mcg Deltoid, Right Given 09/12/2021 9:49 AM EDT 1,000 mcg De ltoid, Left Given 08/15/2021 12:43 PM EDT 1,000 mcg D eltoid, Right Active Administered Medications - up to 3 most recent administrations Medication Order MAR Action Action Date Dose Rate Site cyanocobalamin 1,000 mcg injection 1,000 mcg, INTRAMUSCULAR, EVERY 4 WEEKS, 12 doses, First dose on Wed04/15/21 at 1530, Last dose on Wed02/17/22 at 1530 Given 11/07/2021 10:17 AM EDT 1,000 mcg Deltoid, Left Given 10/10/2021 9:50 AM EDT 1,000 mcg De ltoid, Right Given 09/12/2021 9:49 AM EDT 1,000 mcg De ltoid, Left Active Administered Medications - up to 3 most recent administrations Medication Order MAR Action Action Date Dose Rate Site cyanocobalamin 1,000 mcg injection 1,000 mcg, INTRAMUSCULAR, EVERY 4 WEEKS, 12 doses, First dose on Wed04/15/21 at 1530, Last dose on Wed02/17/22 at 1530 Given 12/08/2021 10:20 AM EDT 1,000 mcg Deltoid, Right Given 11/07/2021 10:17 AM EDT 1,000 mcg D eltoid, Left Given 10/10/2021 9:50 AM EDT 1,000 mcg De ltoid, Right Active Administered Medications - up to 3 most recent administrations Medication Order MAR Action Action Date Dose Rate Site cyanocobalamin 1,000 mcg injection 1,000 mcg, INTRAMUSCULAR, EVERY 4 WEEKS, 12 doses, First dose on Wed04/15/21 at 1530, Last dose on Wed02/17/22 at 1530 Given 01/07/2022 10:00 AM EDT 1,000 mcg Deltoid, Left Given 12/08/2021 10:20 AM EDT 1,000 mcg D eltoid, Right Given 11/07/2021 10:17 AM EDT 1,000 mcg D eltoid, Left Active Administered Medications - up to 3 most recent administrations Medication Order MAR Action Action Date Dose Rate Site cyanocobalamin 1,000 mcg injection 1,000 mcg, INTRAMUSCULAR, EVERY 4 WEEKS, 12 doses, First dose on Wed04/15/21 at 1530, Last dose on Wed02/17/22 at 1530 Given 02/05/2022 2:04 PM EST 1,000 mcg Deltoid, Right Given 01/07/2022 10:00 AM EDT 1,000 mcg D eltoid, Left Given 12/08/2021 10:20 AM EDT 1,000 mcg D eltoid, Right Inactive Administered Medications - up to 3 most recent administrations Medication Order MAR Action Action Date Dose Rate Site cyanocobalamin 1,000 mcg injection 1,000 mcg, INTRAMUSCULAR, EVERY 4 WEEKS, 12 doses, First dose on Wed04/15/21 at 1530, Last dose on Wed02/17/22 at 1530 Given 03/11/2022 10:59 AM EST 1,000 mcg Deltoid, Left Given 02/05/2022 2:04 PM EST 1,000 mcg De ltoid, Right Given 01/07/2022 10:00 AM EDT 1,000 mcg D eltoid, Left Active Administered Medications - up to 3 most recent administrations Medication Order MAR Action Action Date Dose Rate Site cyanocobalamin 1,000 mcg injection 1,000 mcg, INTRAMUSCULAR, EVERY 4 WEEKS, 12 doses, First dose on Wed04/06/22 at 0000, Last dose on Wed02/08/23 at 0000 Given 05/04/2022 12:58 PM EST 1,000 mcg Deltoid, Left Given 04/06/2022 1:51 PM EST 1,000 mcg De ltoid, Right Active Administered Medications - up to 3 most recent administrations Medication Order MAR Action Action Dose Rate Site cyanocobalamin 1,000 mcg injection 1,000 mcg, INTRAMUSCULAR, EVERY 4 WEEKS, 12 doses, First dose on Wed04/06/22 at 0000, Last dose on Wed02/08/23 at 0000 Given 06/01/2022 1:28 PM EDT 1,000 mcg Deltoid, Right Given 05/04/2022 12:58 PM EST 1,000 mcg D eltoid, Left Given 04/06/2022 1:51 PM EST 1,000 mcg De ltoid, Right Active Administered Medications - up to 3 most recent administrations Medication Order MAR Action Action Dose Rate Site cyanocobalamin 1,000 mcg injection 1,000 mcg, INTRAMUSCULAR, EVERY 4 WEEKS, 12 doses, First dose on Wed04/06/22 at 0000, Last dose on Wed02/08/23 at 0000 Given 06/29/2022 1:24 PM EDT 1,000 mcg Deltoid, Left Given 06/01/2022 1:28 PM EDT 1,000 mcg De ltoid, Right Given 05/04/2022 12:58 PM EST 1,000 mcg D eltoid, Left Active Administered Medications - up to 3 most recent administrations Medication Order MAR Action Action Date Dose Rate Site cyanocobalamin 1,000 mcg injection 1,000 mcg, INTRAMUSCULAR, EVERY 4 WEEKS, 12 doses, First dose on Wed04/06/22 at 0000, Last dose on Wed02/08/23 at 0000 Given 12/17/2022 2:52 PM EDT 1,000 mcg Deltoid, Left Given 09/28/2022 1:06 PM EDT 1,000 mcg De ltoid, Right Given 08/31/2022 1:20 PM EDT 1,000 mcg De ltoid, Left Active Administered Medications - up to 3 most recent administrations Medication Order MAR Action Action Date Dose Rate Site cyanocobalamin 1,000 mcg injection 1,000 mcg, INTRAMUSCULAR, EVERY 4 WEEKS, 12 doses, First dose on Wed04/06/22 at 0000, Last dose on Wed02/08/23 at 0000 Given 01/14/2023 2:16 PM EST 1,000 mcg Deltoid, Left Given 12/17/2022 2:52 PM EDT 1,000 mcg De ltoid, Left Given 09/28/2022 1:06 PM EDT 1,000 mcg De ltoid, Right Active Administered Medications - up to 3 most recent administrations Medication Order MAR Action Action Date Dose Rate Site cyanocobalamin 1,000 mcg injection 1,000 mcg, INTRAMUSCULAR, EVERY 4 WEEKS, 12 doses, First dose on Wed04/06/22 at 0000, Last dose on Wed02/08/23 at 0000 Given 02/11/2023 2:17 PM EST 1,000 mcg Deltoid, Right Given 01/14/2023 2:16 PM EST 1,000 mcg De ltoid, Left Given 12/17/2022 2:52 PM EDT 1,000 mcg De ltoid, Left Advance Directives No Advanced Directives Records FoundDocuments on File Type Date Recorded Patient Associate Buyer Expl anation Advance Directive(s) 02/26/2015 1:30 PM Documents on File Type Date Recorded Patient Associate Buyer Expl anation Advance Directive(s) 02/26/2015 1:30 PM Advance Directive Response Recorded Date/ Time Name of Medical Power of Roofing Laborer Mehrdad Wilson August 25, 2022 4:34pm Advance Directives Yes April 01, 2020 8:21am Living Will Yes August 25, 2022 4:34pm Power of Roofing Laborer Yes August 25 4:34pm Advance Directive Response Recorded Date/ Time Name of Medical Power of Roofing Laborer Mehrdad gonzalez August 25, 2022 7:03pm Advance Directives Yes April 01, 2020 8:21am Living Will Yes August 25, 2022 7:03pm Power of Roofing Laborer Yes August 25 7:03pm Advance Directive Response Recorded Date/ Time Name of Medical Power of Roofing Laborer Mehrdad gonzalez August 25, 2022 7:03pm Advance Directives Yes September 03 4:00pm Living Will Yes September 03, 2022 4:00pm Power of Roofing Laborer Yes September 03 4:00pm Advance Directive Response Recorded Date/ Time Advance Directives Yes September 03 4:00pm Chief Complaint and Reason for Visit Chief Complaint SCREENING 1 Y FU LBP/R SIDE SCIATICA. PAIN R LE. RX HERE R/O CVA Reason for Visit Essential (primary) hypertension Hyperlipidemia Nonobstructive atherosclerosis of coronary artery Paroxysmal atrial flutter Hypothyroidism Neurologic abnormality CVA (cerebral vascular accident) Essential (primary) hypertension Mitral valve annular calcification Paroxysmal atrial flutter Type 2 diabetes mellitus Chief Complaint SCREENING 1 Y FU LBP/R SIDE SCIATICA. PAIN R LE. RX HERE R/O CVA R/O CVA R/O CVA R/O CVA Reason for Visit Essential (primary) hypertension Hyperlipidemia Nonobstructive atherosclerosis of coronary artery Paroxysmal atrial flutter Expressive aphasia History of diabetes mellitus History of hypertension History of stroke Hypothyroidism Neurologic abnormality Receptive aphasia CVA (cerebral vascular accident) Essential (primary) hypertension Mitral valve annular calcification Paroxysmal atrial flutter Type 2 diabetes mellitus Chief Complaint SCREENING 1 Y FU R/O CVA R/O CVA R/O CVA R/O CVA LBP/R SIDE SCIATICA. PAIN R LE. RX HERE Reason for Visit Hyperlipidemia Nonobstructive atherosclerosis of coronary artery Chief Complaint Admit Date 1 Y September 06, 2024 7:55a m Reason for Visit Admit Date CVA (cerebral vascular accident) September 7:55am Hyperlipidemia September 06, 2024 7:55a m Nonobstructive atherosclerosis of delvalle ry artery September 06, 2024 7:55am Essential (primary) hypertension September 7:55am Paroxysmal atrial flutter September 06, 2024 7:55am Family History No Family History Records Found Relationship Condition Age at Onset Recorded Date/T pina father Myocardial infarction Unknown brother Myocardial infarction Unknown mother Cerebrovascular accident (CVA) Unknown Cardiac disease Unknown grandmother Myocardial infarction Unknown uncle Myocardial infarction Unknown Reason for Referral Specialty Diagnoses / Procedures Referred By Contac t Referred To Contact Neurology Diagnoses Cerebrovascular accident (CVA), unspecified mechanism (HCC) Weakness of right lower extremity Procedures CONSULT TO NEUROLOGY OFFICE/OUTPATIENT [facility] 60-74 MINUTES Older, APRN. AstridFINISH CLEANER [address] [place] [address] Referral ID Status Reason Start Date Expiration Date Visits Requested Visits Authorized [id number] Pending Review PCP Requested Referral 09/03/2022 09/03/2023 1 1 Specialty Diagnoses / Procedures Referred By Contac t Referred To Contact Pain Management Diagnoses Acute right-sided low back pain with right-sided sciatica Chronic low back pain, unspecified back pain laterality, unspecified whether sciatica present Closed fracture of second lumbar vertebra with routine healing, unspecified fracture morphology, subsequent encounter Procedures CONSULT TO PAIN MGT OFFICE/OUTPATIENT [facility] 60-74 MINUTES Older, APRN. AstridFINISH CLEANER [address] [place] [address] Referral ID Status Reason Start Date Expiration Date Visits Requested Visits Authorized [id number] Pending Review PCP Requested Referral 07/16/2022 07/16/2023 1 1 Specialty Diagnoses / Procedures Referred By Contac t Referred To Contact General Surgery Diagnoses Thyroid nodule Procedures CONSULT TO GENERAL SURGERY OFFICE/OUTPATIENT [facility] 60 MINUTES Older, APRN. AstridFINISH CLEANER [address] [place] [address] Referral ID Status Reason Start Date Expiration Date Visits Requested Visits Authorized [id number] Authorized PCP Requested Referral 02/10/2024 02/09/2025 1 1 Summary Purpose Additional Source Comments Source Comments (unrecognize d section and content) In the event this informatio n is protected by the Federal Confidentiality of Alcohol and Drug Abuse Patient Records regulations: The Federal rules restrict any use of the information to criminally investigate or prosecute any alcohol or drug abuse patient.[facility] the event this information is protected by the Federal Confidentiality of Alcohol and Drug Abuse Patient Records regulations: The Federal rules restrict any use of the information to criminally investigate or prosecute any alcohol or drug abuse patient.[facility] HospitalIn the event this information is protected by the Federal Confidentiality of Alcohol and Drug Abuse Patient Records regulations: The Federal rules restrict any use of the information to criminally investigate or prosecute any alcohol or drug abuse patient.[facility] HospitalIn the event this information is protected by the Federal Confidentiality of Alcohol and Drug Abuse Patient Records regulations: The Federal rules restrict any use of the information to criminally investigate or prosecute any alcohol or drug abuse patient.[facility] HospitalIn the event this information is protected by the Federal Confidentiality of Alcohol and Drug Abuse Patient Records regulations: The Federal rules restrict any use of the information to criminally investigate or prosecute any alcohol or drug abuse patient.[facility] HospitalIn the event this information is protected by the Federal Confidentiality of Alcohol and Drug Abuse Patient Records regulations: The Federal rules restrict any use of the information to criminally investigate or prosecute any alcohol or drug abuse patient.[facility] HospitalIn the event this information is protected by the Federal Confidentiality of Alcohol and Drug Abuse Patient Records regulations: The Federal rules restrict any use of the information to criminally investigate or prosecute any alcohol or drug abuse patient.[facility] HospitalIn the event this information is protected by the Federal Confidentiality of Alcohol and Drug Abuse Patient Records regulations: The Federal rules restrict any use of the information to criminally investigate or prosecute any alcohol or drug abuse patient.[facility] HospitalIn the event this information is protected by the Federal Confidentiality of Alcohol and Drug Abuse Patient Records regulations: The Federal rules restrict any use of the information to criminally investigate or prosecute any alcohol or drug abuse patient.[facility] HospitalIn the event this information is protected by the Federal Confidentiality of Alcohol and Drug Abuse Patient Records regulations: The Federal rules restrict any use of the information to criminally investigate or prosecute any alcohol or drug abuse patient.[facility] HospitalIn the event this information is protected by the Federal Confidentiality of Alcohol and Drug Abuse Patient Records regulations: The Federal rules restrict any use of the information to criminally investigate or prosecute any alcohol or drug abuse patient.[facility] HospitalIn the event this information is protected by the Federal Confidentiality of Alcohol and Drug Abuse Patient Records regulations: The Federal rules restrict any use of the information to criminally investigate or prosecute any alcohol or drug abuse patient.[facility] HospitalIn the event this information is protected by the Federal Confidentiality of Alcohol and Drug Abuse Patient Records regulations: The Federal rules restrict any use of the information to criminally investigate or prosecute any alcohol or drug abuse patient.[facility] HospitalIn the event this information is protected by the Federal Confidentiality of Alcohol and Drug Abuse Patient Records regulations: The Federal rules restrict any use of the information to criminally investigate or prosecute any alcohol or drug abuse patient.[facility] HospitalIn the event this information is protected by the Federal Confidentiality of Alcohol and Drug Abuse Patient Records regulations: The Federal rules restrict any use of the information to criminally investigate or prosecute any alcohol or drug abuse patient.[facility] HospitalIn the event this information is protected by the Federal Confidentiality of Alcohol and Drug Abuse Patient Records regulations: The Federal rules restrict any use of the information to criminally investigate or prosecute any alcohol or drug abuse patient.[facility] HospitalIn the event this information is protected by the Federal Confidentiality of Alcohol and Drug Abuse Patient Records regulations: The Federal rules restrict any use of the information to criminally investigate or prosecute any alcohol or drug abuse patient.[facility] HospitalIn the event this information is protected by the Federal Confidentiality of Alcohol and Drug Abuse Patient Records regulations: The Federal rules restrict any use of the information to criminally investigate or prosecute any alcohol or drug abuse patient.[facility] HospitalIn the event this information is protected by the Federal Confidentiality of Alcohol and Drug Abuse Patient Records regulations: The Federal rules restrict any use of the information to criminally investigate or prosecute any alcohol or drug abuse patient.[facility] HospitalIn the event this information is protected by the Federal Confidentiality of Alcohol and Drug Abuse Patient Records regulations: The Federal rules restrict any use of the information to criminally investigate or prosecute any alcohol or drug abuse patient.[facility] HospitalIn the event this information is protected by the Federal Confidentiality of Alcohol and Drug Abuse Patient Records regulations: The Federal rules restrict any use of the information to criminally investigate or prosecute any alcohol or drug abuse patient.[facility] HospitalIn the event this information is protected by the Federal Confidentiality of Alcohol and Drug Abuse Patient Records regulations: The Federal rules restrict any use of the information to criminally investigate or prosecute any alcohol or drug abuse patient.[facility] HospitalIn the event this information is protected by the Federal Confidentiality of Alcohol and Drug Abuse Patient Records regulations: The Federal rules restrict any use of the information to criminally investigate or prosecute any alcohol or drug abuse patient.[facility] HospitalIn the event this information is protected by the Federal Confidentiality of Alcohol and Drug Abuse Patient Records regulations: The Federal rules restrict any use of the information to criminally investigate or prosecute any alcohol or drug abuse patient.[facility] HospitalIn the event this information is protected by the Federal Confidentiality of Alcohol and Drug Abuse Patient Records regulations: The Federal rules restrict any use of the information to criminally investigate or prosecute any alcohol or drug abuse patient.[facility] HospitalIn the event this information is protected by the Federal Confidentiality of Alcohol and Drug Abuse Patient Records regulations: The Federal rules restrict any use of the information to criminally investigate or prosecute any alcohol or drug abuse patient.[facility] HospitalIn the event this information is protected by the Federal Confidentiality of Alcohol and Drug Abuse Patient Records regulations: The Federal rules restrict any use of the information to criminally investigate or prosecute any alcohol or drug abuse patient.[facility] HospitalIn the event this information is protected by the Federal Confidentiality of Alcohol and Drug Abuse Patient Records regulations: The Federal rules restrict any use of the information to criminally investigate or prosecute any alcohol or drug abuse patient.[facility] HospitalIn the event this information is protected by the Federal Confidentiality of Alcohol and Drug Abuse Patient Records regulations: The Federal rules restrict any use of the information to criminally investigate or prosecute any alcohol or drug abuse patient.[facility] HospitalIn the event this information is protected by the Federal Confidentiality of Alcohol and Drug Abuse Patient Records regulations: The Federal rules restrict any use of the information to criminally investigate or prosecute any alcohol or drug abuse patient.[facility] HospitalIn the event this information is protected by the Federal Confidentiality of Alcohol and Drug Abuse Patient Records regulations: The Federal rules restrict any use of the information to criminally investigate or prosecute any alcohol or drug abuse patient.[facility] HospitalIn the event this information is protected by the Federal Confidentiality of Alcohol and Drug Abuse Patient Records regulations: The Federal rules restrict any use of the information to criminally investigate or prosecute any alcohol or drug abuse patient.[facility] HospitalIn the event this information is protected by the Federal Confidentiality of Alcohol and Drug Abuse Patient Records regulations: The Federal rules restrict any use of the information to criminally investigate or prosecute any alcohol or drug abuse patient.[facility] HospitalIn the event this information is protected by the Federal Confidentiality of Alcohol and Drug Abuse Patient Records regulations: The Federal rules restrict any use of the information to criminally investigate or prosecute any alcohol or drug abuse patient.[facility] HospitalIn the event this information is protected by the Federal Confidentiality of Alcohol and Drug Abuse Patient Records regulations: The Federal rules restrict any use of the information to criminally investigate or prosecute any alcohol or drug abuse patient.[facility] HospitalIn the event this information is protected by the Federal Confidentiality of Alcohol and Drug Abuse Patient Records regulations: The Federal rules restrict any use of the information to criminally investigate or prosecute any alcohol or drug abuse patient.[facility] HospitalIn the event this information is protected by the Federal Confidentiality of Alcohol and Drug Abuse Patient Records regulations: The Federal rules restrict any use of the information to criminally investigate or prosecute any alcohol or drug abuse patient.[facility] HospitalIn the event this information is protected by the Federal Confidentiality of Alcohol and Drug Abuse Patient Records regulations: The Federal rules restrict any use of the information to criminally investigate or prosecute any alcohol or drug abuse patient.[facility] HospitalIn the event this information is protected by the Federal Confidentiality of Alcohol and Drug Abuse Patient Records regulations: The Federal rules restrict any use of the information to criminally investigate or prosecute any alcohol or drug abuse patient.[facility] HospitalIn the event this information is protected by the Federal Confidentiality of Alcohol and Drug Abuse Patient Records regulations: The Federal rules restrict any use of the information to criminally investigate or prosecute any alcohol or drug abuse patient.[facility] HospitalIn the event this information is protected by the Federal Confidentiality of Alcohol and Drug Abuse Patient Records regulations: The Federal rules restrict any use of the information to criminally investigate or prosecute any alcohol or drug abuse patient.[facility] HospitalIn the event this information is protected by the Federal Confidentiality of Alcohol and Drug Abuse Patient Records regulations: The Federal rules restrict any use of the information to criminally investigate or prosecute any alcohol or drug abuse patient.[facility] HospitalIn the event this information is protected by the Federal Confidentiality of Alcohol and Drug Abuse Patient Records regulations: The Federal rules restrict any use of the information to criminally investigate or prosecute any alcohol or drug abuse patient.[facility] HospitalIn the event this information is protected by the Federal Confidentiality of Alcohol and Drug Abuse Patient Records regulations: The Federal rules restrict any use of the information to criminally investigate or prosecute any alcohol or drug abuse patient.[facility] HospitalIn the event this information is protected by the Federal Confidentiality of Alcohol and Drug Abuse Patient Records regulations: The Federal rules restrict any use of the information to criminally investigate or prosecute any alcohol or drug abuse patient.[facility] HospitalIn the event this information is protected by the Federal Confidentiality of Alcohol and Drug Abuse Patient Records regulations: The Federal rules restrict any use of the information to criminally investigate or prosecute any alcohol or drug abuse patient.[facility] HospitalIn the event this information is protected by the Federal Confidentiality of Alcohol and Drug Abuse Patient Records regulations: The Federal rules restrict any use of the information to criminally investigate or prosecute any alcohol or drug abuse patient.[facility] HospitalIn the event this information is protected by the Federal Confidentiality of Alcohol and Drug Abuse Patient Records regulations: The Federal rules restrict any use of the information to criminally investigate or prosecute any alcohol or drug abuse patient.[facility] HospitalIn the event this information is protected by the Federal Confidentiality of Alcohol and Drug Abuse Patient Records regulations: The Federal rules restrict any use of the information to criminally investigate or prosecute any alcohol or drug abuse patient.[facility] HospitalIn the event this information is protected by the Federal Confidentiality of Alcohol and Drug Abuse Patient Records regulations: The Federal rules restrict any use of the information to criminally investigate or prosecute any alcohol or drug abuse patient.[facility] HospitalIn the event this information is protected by the Federal Confidentiality of Alcohol and Drug Abuse Patient Records regulations: The Federal rules restrict any use of the information to criminally investigate or prosecute any alcohol or drug abuse patient.[facility] HospitalIn the event this information is protected by the Federal Confidentiality of Alcohol and Drug Abuse Patient Records regulations: The Federal rules restrict any use of the information to criminally investigate or prosecute any alcohol or drug abuse patient.[facility] HospitalIn the event this information is protected by the Federal Confidentiality of Alcohol and Drug Abuse Patient Records regulations: The Federal rules restrict any use of the information to criminally investigate or prosecute any alcohol or drug abuse patient.[facility] HospitalIn the event this information is protected by the Federal Confidentiality of Alcohol and Drug Abuse Patient Records regulations: The Federal rules restrict any use of the information to criminally investigate or prosecute any alcohol or drug abuse patient.[facility] HospitalIn the event this information is protected by the Federal Confidentiality of Alcohol and Drug Abuse Patient Records regulations: The Federal rules restrict any use of the information to criminally investigate or prosecute any alcohol or drug abuse patient.[facility] HospitalIn the event this information is protected by the Federal Confidentiality of Alcohol and Drug Abuse Patient Records regulations: The Federal rules restrict any use of the information to criminally investigate or prosecute any alcohol or drug abuse patient.[facility] HospitalIn the event this information is protected by the Federal Confidentiality of Alcohol and Drug Abuse Patient Records regulations: The Federal rules restrict any use of the information to criminally investigate or prosecute any alcohol or drug abuse patient.[facility] HospitalIn the event this information is protected by the Federal Confidentiality of Alcohol and Drug Abuse Patient Records regulations: The Federal rules restrict any use of the information to criminally investigate or prosecute any alcohol or drug abuse patient.[facility] HospitalIn the event this information is protected by the Federal Confidentiality of Alcohol and Drug Abuse Patient Records regulations: The Federal rules restrict any use of the information to criminally investigate or prosecute any alcohol or drug abuse patient.[facility] HospitalIn the event this information is protected by the Federal Confidentiality of Alcohol and Drug Abuse Patient Records regulations: The Federal rules restrict any use of the information to criminally investigate or prosecute any alcohol or drug abuse patient.[facility] HospitalIn the event this information is protected by the Federal Confidentiality of Alcohol and Drug Abuse Patient Records regulations: The Federal rules restrict any use of the information to criminally investigate or prosecute any alcohol or drug abuse patient.[facility] HospitalIn the event this information is protected by the Federal Confidentiality of Alcohol and Drug Abuse Patient Records regulations: The Federal rules restrict any use of the information to criminally investigate or prosecute any alcohol or drug abuse patient.[facility] HospitalIn the event this information is protected by the Federal Confidentiality of Alcohol and Drug Abuse Patient Records regulations: The Federal rules restrict any use of the information to criminally investigate or prosecute any alcohol or drug abuse patient.[facility] HospitalIn the event this information is protected by the Federal Confidentiality of Alcohol and Drug Abuse Patient Records regulations: The Federal rules restrict any use of the information to criminally investigate or prosecute any alcohol or drug abuse patient.[facility] HospitalIn the event this information is protected by the Federal Confidentiality of Alcohol and Drug Abuse Patient Records regulations: The Federal rules restrict any use of the information to criminally investigate or prosecute any alcohol or drug abuse patient.[facility] HospitalIn the event this information is protected by the Federal Confidentiality of Alcohol and Drug Abuse Patient Records regulations: The Federal rules restrict any use of the information to criminally investigate or prosecute any alcohol or drug abuse patient.[facility] HospitalIn the event this information is protected by the Federal Confidentiality of Alcohol and Drug Abuse Patient Records regulations: The Federal rules restrict any use of the information to criminally investigate or prosecute any alcohol or drug abuse patient.[facility] HospitalIn the event this information is protected by the Federal Confidentiality of Alcohol and Drug Abuse Patient Records regulations: The Federal rules restrict any use of the information to criminally investigate or prosecute any alcohol or drug abuse patient.[facility] HospitalIn the event this information is protected by the Federal Confidentiality of Alcohol and Drug Abuse Patient Records regulations: The Federal rules restrict any use of the information to criminally investigate or prosecute any alcohol or drug abuse patient.[facility] HospitalIn the event this information is protected by the Federal Confidentiality of Alcohol and Drug Abuse Patient Records regulations: The Federal rules restrict any use of the information to criminally investigate or prosecute any alcohol or drug abuse patient.[facility] HospitalIn the event this information is protected by the Federal Confidentiality of Alcohol and Drug Abuse Patient Records regulations: The Federal rules restrict any use of the information to criminally investigate or prosecute any alcohol or drug abuse patient.[facility] HospitalIn the event this information is protected by the Federal Confidentiality of Alcohol and Drug Abuse Patient Records regulations: The Federal rules restrict any use of the information to criminally investigate or prosecute any alcohol or drug abuse patient.[facility] HospitalIn the event this information is protected by the Federal Confidentiality of Alcohol and Drug Abuse Patient Records regulations: The Federal rules restrict any use of the information to criminally investigate or prosecute any alcohol or drug abuse patient.[facility] HospitalIn the event this information is protected by the Federal Confidentiality of Alcohol and Drug Abuse Patient Records regulations: The Federal rules restrict any use of the information to criminally investigate or prosecute any alcohol or drug abuse patient.[facility] HospitalIn the event this information is protected by the Federal Confidentiality of Alcohol and Drug Abuse Patient Records regulations: The Federal rules restrict any use of the information to criminally investigate or prosecute any alcohol or drug abuse patient.[facility] HospitalIn the event this information is protected by the Federal Confidentiality of Alcohol and Drug Abuse Patient Records regulations: The Federal rules restrict any use of the information to criminally investigate or prosecute any alcohol or drug abuse patient.[facility] HospitalIn the event this information is protected by the Federal Confidentiality of Alcohol and Drug Abuse Patient Records regulations: The Federal rules restrict any use of the information to criminally investigate or prosecute any alcohol or drug abuse patient.[facility] HospitalIn the event this information is protected by the Federal Confidentiality of Alcohol and Drug Abuse Patient Records regulations: The Federal rules restrict any use of the information to criminally investigate or prosecute any alcohol or drug abuse patient.[facility] HospitalIn the event this information is protected by the Federal Confidentiality of Alcohol and Drug Abuse Patient Records regulations: The Federal rules restrict any use of the information to criminally investigate or prosecute any alcohol or drug abuse patient.[facility] Reason for Visit (unrecogniz ed section and content) Reason Comments B-12 Injection Reason Onset Date Comments Population Health Navigation Outreach 07/11/2021 [employer] Care Gap Reason Comments Orders Reason Comments Established Patient follow up-DM Reason Comments Results Reason Onset Date Comments Population Health Navigation Outreach 10/23/2021 [employer] Care Gaps Reason Comments Lab Orders Reason Onset Date Comments Population Health Navigation Outreach 02/03/2022 [employer] care gap Reason Comments F/U Diabetes 3 Month Reason Onset Date Comments Population Health Navigation Outreach 05/01/2022 [employer] Care Gaps Reason Comments Medication clarification Reason Comments Recheck 3 month follow up Reason Onset Date Comments Population Health Navigation Outreach 06/18/2022 [employer] Care Gaps 4.5.23 Reason Comments Medication Problem Reason Onset Date Comments Refill Request 08/10/2022 Reason Comments Follow Up Seen at [facility] on ay for stroke, was released Wednesday Reason Comments disk request Reason Comments Follow Up diabetes and urine- lab results, discuss jardiance Reason Onset Date Comments Refill Request 11/02/2022 Reason Comments Follow Up sugars and labs Reason Onset Date Comments Refill Request 01/10/2023 Reason Comments if patient needs labs done for appt vivien rrow Reason Comments Follow Up daibetes Reason Comments Results Reason Comments Refill Request Reason Onset Date Comments Refill Request 08/09/2023 Reason Onset Date Comments Refill Request 08/11/2023 Reason Onset Date Comments Refill Request 10/07/2023 Reason Comments Recheck 6 month follow up Reason Comments Recheck ER Follow up UTI Reason Comments Radiology US Specialty Diagnoses / Procedures Referred By Contac t Referred To Contact US IMAGING Diagnoses Thyroid nodule Procedures US THYROID/PARATHYROID US SOFT TISSUE HEAD & NECK REAL TIME IMGE DOCM Astrid Muse APRN.FINISH CLEANER [address] [place] [address] [place] [address] Referral ID Status Reason Start Date Expiration Date V isits Requested Visits Authorized [id number] Closed Auto-Generate d Referral 02/02/2024 03/03/2025 1 1 Reason Onset Date Comments Refill Request 02/14/2024 Reason Comments Recheck 6 week follow up Reason Comments Consult Thyroid Nodule Specialty Diagnoses / Procedures Referred By Contac t Referred To Contact General Surgery Diagnoses Thyroid nodule Procedures CONSULT TO GENERAL SURGERY OFFICE/OUTPATIENT [facility] 60 MINUTES Astrid Muse APRN.FINISH CLEANER [address] [place] [address] Referral ID Status Reason Start Date Expiration Date V isits Requested Visits Authorized [id number] Closed PCP Requested Referral 02/10/2024 02/09/2025 1 1 Reason Comments Procedure Left thyroid Reason Comments Recheck 6 week follow up UTI and medication Reason Comments Acute Visit Urinary freq, discom fort when urinating, left flank pain, pelvic cramping x couple days Reason Onset Date Comments Refill Request 08/16/2024 Care Teams (unrecognized sec tion and content) Heavy Repairer Relationship Specialty Start Date End Date Jones Velasquez MD [address] [place], [place] [id number] PCP - General Internal Medicine 02/24/16 Heavy Repairer Relationship Specialty Start Date End Date Jones Velasquez MD [address] [place] [address] PCP - General Internal Medicine 02/24/16 Heavy Repairer Relationship Specialty Start Date End Date Jones Velasquez MD [address] [facility] [place] [address] PCP - General Internal Medicine 02/24/16 Heavy Repairer Relationship Specialty Start Date End Date Jones Velasquez MD [address] [facility] [place] [address] PCP - General Internal Medicine 02/24/16 Heavy Repairer Relationship Specialty Start Date End Date Jones Velasquez MD [address] [facility] [place] [address] PCP - General Internal Medicine 02/24/16 Heavy Repairer Relationship Specialty Start Date End Date Jones Velasquez MD [address] [facility] [place] [address] PCP - General Internal Medicine 02/24/16 Heavy Repairer Relationship Specialty Start Date End Date Jones Velasquez MD [address] [facility] [place] [address] PCP - General Internal Medicine 02/24/16 Heavy Repairer Relationship Specialty Start Date End Date Jones Velasquez MD [address] [facility] [place] [address] PCP - General Internal Medicine 02/24/16 Heavy Repairer Relationship Specialty Start Date End Date Jones Velasquez MD [address] [facility] [place] [address] PCP - General Internal Medicine 02/24/16 Heavy Repairer Relationship Specialty Start Date End Date Jones Velasquez MD [address] [facility] [place] [address] PCP - General Internal Medicine 02/24/16 Heavy Repairer Relationship Specialty Start Date End Date Jones Velasquez MD [address] [facility] [place] [address] PCP - General Internal Medicine 02/24/16 Heavy Repairer Relationship Specialty Start Date End Date Jones Velasquez MD [address] [facility] [place] [address] PCP - General Internal Medicine 02/24/16 Heavy Repairer Relationship Specialty Start Date End Date Jones Velasquez MD [address] [facility] [place] [address] PCP - General Internal Medicine 02/24/16 Heavy Repairer Relationship Specialty Start Date End Date Jones Velasquez MD [address] [facility] [place] [address] PCP - General Internal Medicine 02/24/16 Team Status: Active Member Role Status Dates Dr. Jones Velasquez MD Family Provider Active Dr. Jones Velasquez MD Primary Care Provider Active Team Status: Inactive Member Role Status Dates Dr. Jones Velasquez MD Primary Care Provider, Referring Provider Active Sho Marinelli PA, PA Attending Provider Active Team Status: Inactive Member Role Status Dates Dr. Jones Velasquez MD Primary Care Provi zuleima, Attending Provider, Referring Provider Active Team Status: Active Member Role Status Dates Dr. Jones Velasquez MD Primary Care Provider Active ASTRID MUSE , MOBILE SALES CONSULTANT-C Attending Provider, Referring Provide r Active Team Status: Active Member Role Status Dates Dr. Jones Velasquez MD Primary Care Provider Active Dr. Tejas Lew MD Emergency Provider Active Dr. Christal Patiño MD Admit Provider, Attending Provid er Active Team Status: Active Member Role Status Dates Dr. Jones Velasquez MD Primary Care Provider Active Dr. Diya Marvin MD Attending Provider Active Team Status: Active Member Role Status Dates Dr. Jones Velasquez MD Primary Care Provider Active Dr. Tejas Lew MD Emergency Provider Active Dr. Christal Patiño MD Admit Provider, At tending Provider, Other Provider Active Team Status: Active Member Role Status Dates Dr. Jones Velasquez MD Primary Care Provider Active Dr. Nahun Giles MD Attending Provider Active Team Status: Active Member Role Status Dates Dr. Jones Velasquez MD Primary Care Provider Active Dr. Tejas Lew MD Emergency Provider Active Dr. Christal Patiño MD Admit Provider, Other Provider A ctive Dr. Bea Gregg MD Attending Provider, Other Prov ider Active Team Status: Inactive Member Role Status Dates Dr. Jones Velasquez MD Primary Care Provider Active Dr. Tejas Lew MD Emergency Provider Active Dr. Christal Patiño MD Admit Provider, Other Provider A ctive Dr. Bea Gregg MD Attending Provider Active Heavy Repairer Relationship Specialty Start Date End Date Jones Velasquez MD [address] [facility] [place] [address] PCP - General Internal Medicine 02/24/16 Heavy Repairer Relationship Specialty Start Date End Date Jones Velasquez MD [address] [place] [address] PCP - General Internal Medicine 02/24/16 Heavy Repairer Relationship Specialty Start Date End Date Jones Velasquez MD [address] [facility] [place] [address] PCP - General Internal Medicine 02/24/16 Team Status: Active Member Role Status Dates Dr. Jones Velasquez MD Primary Care Provider Active Dr. Diya Marvin MD Attending Provider Active Dr. Christal Patiño MD Referring Provider Active Team Status: Active Member Role Status Dates Dr. Jones Velasquez MD Primary Care Provider Active Dr. Nahun Giles MD Attending Provider Active Dr. Christal Patiño MD Referring Provider Active Team Status: Inactive Member Role Status Dates Dr. Jones Velasquez MD Primary Care Provider Active ASTRID MUSE MOBILE SALES CONSULTANT-C Attending Provider, Referring Provide r Active Heavy Repairer Relationship Specialty Start Date End Date Jones Velasquez MD [address] [facility] [place] [address] PCP - General Internal Medicine 02/24/16 Heavy Repairer Relationship Specialty Start Date End Date Jones Velasquez MD [address] [facility] [place] [address] PCP - General Internal Medicine 02/24/16 Heavy Repairer Relationship Specialty Start Date End Date Jones Velasquez MD [address] [facility] [place] [address] PCP - General Internal Medicine 02/24/16 Heavy Repairer Relationship Specialty Start Date End Date Jones Velasquez MD [address] [facility] [place] [address] PCP - General Internal Medicine 02/24/16 Heavy Repairer Relationship Specialty Start Date End Date Jones Velasquez MD [address] [place] [address] PCP - General Internal Medicine 02/24/16 Heavy Repairer Relationship Specialty Start Date End Date Jones Velasquez MD [address] [place] [address] PCP - General Internal Medicine 02/24/16 Heavy Repairer Relationship Specialty Start Date End Date Jones Velasquez MD [address] [place] [address] PCP - General Internal Medicine 02/24/16 Heavy Repairer Relationship Specialty Start Date End Date Jones Velasquez MD [address] [facility] [place] [address] PCP - General Internal Medicine 02/24/16 Heavy Repairer Relationship Specialty Start Date End Date Jones Velasquez MD [address] [facility] [place] [address] PCP - General Internal Medicine 02/24/16 Heavy Repairer Relationship Specialty Start Date End Date Jones Velasquez MD [address] [facility] [place] [address] PCP - General Internal Medicine 02/24/16 Heavy Repairer Relationship Specialty Start Date End Date Jones Velasquez MD [address] [facility] [place] [address] PCP - General Internal Medicine 02/24/16 Heavy Repairer Relationship Specialty Start Date End Date Jones Velasquez MD [address] [facility] [place] [address] PCP - General Internal Medicine 02/24/16 Heavy Repairer Relationship Specialty Start Date End Date Jones Velasquez MD [address] [facility] [place] [address] PCP - General Internal Medicine 02/24/16 Heavy Repairer Relationship Specialty Start Date End Date Jones Velasquez MD [address] [facility] [place] [address] PCP - General Internal Medicine 02/24/16 Heavy Repairer Relationship Specialty Start Date End Date Jones Velasquez MD [address] [facility] [place] [address] PCP - General Internal Medicine 02/24/16 Heavy Repairer Relationship Specialty Start Date End Date Jones Velasquez MD [address] [facility] [place] [address] PCP - General Internal Medicine 02/24/16 Heavy Repairer Relationship Specialty Start Date End Date Jones Velasquez MD [address] [facility] [place] [address] PCP - General Internal Medicine 02/24/16 Renetta Christie PA-C [address], [place] [address] [phone] Older Adult Social Work Specialist Family Medicine 02/13/24 Astrid Muse APRN.FINISH CLEANER [address] [place] [address] Older Adult Social Work Specialist Internal Medicine 02/13/24 Justine Castillo PA-C [address] [place] [address] Older Adult Social Work Specialist Family [facility] 02/13/24 Heavy Repairer Relationship Specialty Start Date End Date Jones Velasquez MD [address] [place] [address] PCP - General Internal Medicine 02/24/16 Renetta Christie PA-C [address] [place] [address] Older Adult Social Work Specialist Family Medicine 02/13/24 Astrid Muse APRN.FINISH CLEANER [address] [place] [address] Older Adult Social Work Specialist Internal Medicine 02/13/24 Justine Castillo PA-C [address] [place] [address] Older Adult Social Work Specialist Family [facility] 02/13/24 Heavy Repairer Relationship Specialty Start Date End Date Jones Velasquez MD [address] [place] [address] PCP - General Internal Medicine 02/24/16 Renetta Christie PA-C [address] [place], [place] [id number] Older Adult Social Work Specialist Family Medicine 02/13/24 Astrid Muse APRN.FINISH CLEANER [address] [place] [address] Older Adult Social Work Specialist Internal Medicine 02/13/24 Justine Castillo PA-C [address] [place] [address] Older Adult Social Work Specialist Family Medicine 02/13/24 Heavy Repairer Relationship Specialty Start Date End Date Jones Velasquez MD [address] [place] [address] PCP - General Internal Medicine 02/24/16 Renetta Christie PA-C [address] [place] [phone] Older Adult Social Work Specialist Family Medicine 02/13/24 Astrid Muse APRN.FINISH CLEANER [address] [place] [address] Older Adult Social Work Specialist Internal Medicine 02/13/24 Justine Castillo PA-C [address] [place] [address] Older Adult Social Work Specialist Family Medicine 02/13/24 Heavy Repairer Relationship Specialty Start Date End Date Jones Velasquez MD [address] [place] [address] PCP - General Internal Medicine 02/24/16 Renetta Christie PA-C [address] [place] [address] Older Adult Social Work Specialist Family Medicine 02/13/24 Astrid Muse APRN.FINISH CLEANER [address] [place] [address] Older Adult Social Work Specialist Internal Medicine 02/13/24 Justine Castillo PA-C [address] [place] [address] Older Adult Social Work Specialist Family Medicine 02/13/24 Heavy Repairer Relationship Specialty Start Date End Date Jones Velasquez MD [address] [facility] [place] [address] PCP - General Internal Medicine 02/24/16 Astrid Muse APRN.FINISH CLEANER [address] [place] [address] Older Adult Social Work Specialist Internal Medicine 02/13/24 Heavy Repairer Relationship Specialty Start Date End Date Jones Velasquez MD [address] [place] [address] PCP - General Internal Medicine 02/24/16 Astrid Muse APRN.FINISH CLEANER [address] [place] [address] Older Adult Social Work Specialist Internal Medicine 02/13/24 Heavy Repairer Relationship Specialty Start Date End Date Jones Velasquez MD [address] [place] [address] PCP - General Internal Medicine 02/24/16 Astrid Muse APRN.FINISH CLEANER [address] [place] [address] Older Adult Social Work Specialist Internal Medicine 02/13/24 Heavy Repairer Relationship Specialty Start Date End Date Jones Velasquez MD [address] [place] [address] PCP - General Internal Medicine 02/24/16 Astrid Muse APRN.FINISH CLEANER [address] [place] [address] Older Adult Social Work Specialist Internal Medicine 02/13/24 Team Status: Active Member Role/Relationship Status Dates Dr. Jones Velasquez MD Family Provider Active ASTRID MUSE MOBILE SALES CONSULTANT-Lew Primary Care Provider Active Team Status: Inactive Member Role/Relationship Status Dates ASTRID MUSE MOBILE SALES CONSULTANT-C Primary Care Provider Active St art: September 06, 2024 End: September 06, 2024 LAURA MCKEON Referring Provider Active Start : September 06, 2024 End: September 06, 2024 Sho COONEY, PA Attending Provider Active Start: September 06, 2024 End: September 06, 2024 Goals (unrecognized section and content) Goals may be documented in a n alternate section No data available for this sectionGoals may be documented in an alternate section Active Administered Medications - up to 3 most recent administrations Administered Medications (un recognized section and content) Medication Order MAR Action Action Date Dose Rate Site cyanocobalamin 1,000 mcg injection 1,000 mcg, INTRAMUSCULAR, EVERY 4 WEEKS, 12 doses, First dose on Wed03/15/23 at 0000, Last dose on Wed01/17/24 at 0000 Given 04/12/2023 1:35 PM EST 1,000 mcg Deltoid, Right Given 03/15/2023 1:43 PM EST 1,000 mcg De ltoid, Left Active Administered Medications - up to 3 most recent administrations Medication Order MAR Action Action Date Dose Rate Site cyanocobalamin 1,000 mcg injection 1,000 mcg, INTRAMUSCULAR, EVERY 4 WEEKS, 12 doses, First dose on Wed03/15/23 at 0000, Last dose on Wed01/17/24 at 0000 Given 05/10/2023 1:35 PM EST 1,000 mcg Deltoid, Left Given 04/12/2023 1:35 PM EST 1,000 mcg De ltoid, Right Given 03/15/2023 1:43 PM EST 1,000 mcg De ltoid, Left Active Administered Medications - up to 3 most recent administrations Medication Order MAR Action Action Date Dose Rate Site cyanocobalamin 1,000 mcg injection 1,000 mcg, INTRAMUSCULAR, EVERY 4 WEEKS, 12 doses, First dose on Wed03/15/23 at 0000, Last dose on Wed01/17/24 at 0000 Given 06/07/2023 1:02 PM EDT 1,000 mcg Deltoid, Right Given 05/10/2023 1:35 PM EST 1,000 mcg De ltoid, Left Given 04/12/2023 1:35 PM EST 1,000 mcg De ltoid, Right INFORMATION SOURCE (unrecogn ized section and content) DATE CREATED AUTHOR 01/29/2024 [facility] DATE CREATED AUTHOR AUTHOR'S ORGANIZ ATION 09/07/2024 [facility] DATE CREATED AUTHOR AUTHOR'S ORGANIZ ATION 09/08/2024 [facility] FOR RECORDS PERTAINING TO PATIENTS WHO ARE OR HAVE BEEN ENROLLED IN A CHEMICAL DEPENDENCY/SUBSTANCEABUSE PROGRAM, SOME INFORMATION MAY BE OMITTED. This clinical summary was aggregated from multiple sources. Caution should be exercised in using it in the provision of clinical care. This summary normalizes information from multiple sources, and as a consequence, information in this document may materially change the coding, format and clinical context of patient data. In addition, data may be omitted in some cases. CLINICAL DECISIONS SHOULD BE BASED ON THE PRIMARY CLINICAL RECORDS. [email or web address] [facility]. provides no warranty or guarantee of the accuracy or completeness of information in this document.
--- OUTSIDE RECORDS SUMMARY | 2024-09-08 11:49 | XMS RPT_ITS | CCD ---
Author Organization [facility] Care Team Providers Care Lawyer Name Role Phone Jones Velasquez MD Primary Care Provider Dr. Jones Velasquez Primary Care Provider Dr. Jones Velasquez Referring Provider IVET Vazquez Attending Provider Dr. Diya Marvin Attending Provider Dr. Tejas Lew Emergency [...] Attending Unavailable PHYSICIAN, NONE Primary Care Unavailable STORY DENTAL LABORATORY TECHNICIAN-SHERIDAN, June Admitting Unavail able Renetta Christie PA-C Unavailable [phone] Older Astrid KOLB Unavailable Justine Castillo PA-C Unavailable OLDER EZRA-C, ASTRID Primary Care Provider OLDER LOG ROPER-C, ASTRID Referring Provider Sho Vazquez Attending Provider [phone] Fabiano Lee Attending Unavailable Ganta, Jones Referring [...] [PENICILLINS] Propensity to adverse reactions 9 Rash [facility] (20 sources) Propoxyphene; Translations: [PROPOXYPHENE HCL] Drug Allergy 9 GI Upset [facility] (20 sources) Penicillins Propensity to adverse reactions 9 [facility] (4 sources) Penicillins Allergy to substance 3 [facility] (4 sources) Propoxyphene Drug Allergy 3 Nausea/Vom/Diar marilyn [facility] (6 sources) Penicillins Propensity to adverse reactions 9 Rash [facility] (1 source) Penicillins Drug allergy (disorder) 5 [facility] (1 source) Propoxyphene Drug Allergy 5 [facility] Medications Current Medications Medication [...] 0 Refill(s), 01/27/24 8:00:00 AM EST, Pharmacy: [facility], 157.5, cm, 01/21/24 1:17:00 EST, [...] above: Take 1 capsule by mo [facility] twice daily for 7 days. clopidogrel 75 [...] current use of oral hypoglycemic medication; Translations: [[facility] (current) use of oral hypoglycemic drugs] 07-25-2024 Episodic Other aftercare (1 source) watermaster (current) use of oral hypoglycemic drugs; Translations: [watermaster (current) use of oral hypoglycemic drugs] Onset: [...] Anion gap [Moles/Vol] 18 mmol/L High 10-20 [facility] Comment on above: Order Comment: Kamla clark Type: BLOOD SPECIMENOrdering Facility: [facility] Address: [address] [place] [address] Performed By: #### 2 4321-2 ####[facility] [id number] [place] [id number] [place] Calcium [Mass/Vol] 9.6 mg/dL Normal 8.5-10.2 [facility] Comment on above: Order Comment: Kamla clark Type: BLOOD SPECIMENOrdering Facility: [facility] Address: [address] [place] [address] Performed By: #### 2 4321-2 ####[facility] ERNCLIA [id number] [place] [address] [place] Chloride [Moles/Vol] 103 mmol/L Normal 98-107 [facility] Comment on above: Order Comment: Speci men Type: BLOOD SPECIMENOrdering Facility: [facility] Address: [address] [place] [address] Performed By: #### 2 4321-2 ####[facility] [id number] [place] [address] [place] CO2 [Moles/Vol] 20 mmol/L Low 22-30 [facility] Comment on above: Order Comment: Speci men Type: BLOOD SPECIMENOrdering Facility: [facility] Address: [address] [place] [address] Performed By: #### 2 4321-2 ####[facility] ERNCLIA [id number] [place] [address] [place] Creatinine [Mass/Vol] 0.60 mg/dL Normal 0.58-0.96 [facility] Comment on above: Order Comment: Speci men Type: BLOOD SPECIMENOrdering Facility: [facility] Address: [address] [place] [address] Performed By: #### 2 4321-2 ####[facility] ERNCLIA [id number] [place] [address] [place] Creatinine and Glomerular filtration rate.predicted panel (S/P/Bld) 93 mL/min/1.73m??? Normal >=60 [facility] Comment on above: Order Comment: Speci men Type: BLOOD SPECIMENOrdering Facility: [facility] Address: [address] [place] [address] Result Comment: Shakira mated Glomerular Filtration Rate [...] GFR. Performed By: #### 2 4321-2 ####[facility] ERYOHANNESAdelita [id number] [place] [address] [place] Glucose [Mass/Vol] 147 mg/dL High 74-99 [facility] Comment on above: Order Comment: Kamla clark Type: BLOOD SPECIMENOrdering Facility: [facility] Address: [address] [place] [address] Result Comment: The [place] Diabetes Association (ADA) provides guidance for cutoff [...] Standards of Medical Care in Diabetes 2016, [place] Diabetes Association. Diabetes Care. 2016.39(Suppl 1). Performed By: #### 2 4321-2 ####[facility] [id number] [place] [address] [place] Potassium [Moles/Vol] 4.1 mmol/L Normal 3.7-5.1 [facility] Comment on above: Order Comment: Kamla clark Type: BLOOD SPECIMENOrdering Facility: [facility] Address: [address] [place] [id number] Performed By: #### 2 4321-2 ####[facility] [id number] [place] [address] [place] Sodium [Moles/Vol] 141 mmol/L Normal 136-144 [facility] Comment on above: Order Comment: Speci men Type: BLOOD SPECIMENOrdering Facility: [facility] Address: [address] [place], [place] [address] Performed By: #### 2 4321-2 ####[facility] [id number] [place] [address] [place] Urea nitrogen [Mass/Vol] 13 mg/dL Normal 7-21 [facility] Comment on above: Order Comment: Speci men Type: BLOOD SPECIMENOrdering Facility: [facility] Address: [address] [place] [address] Performed By: #### 2 4321-2 ####[facility] [id number] [place] [address] [place] CBC W Auto Differential pane l (Bld)on 09-06-2024 Basophils (Bld) [#/Vol] 0.07 10*3/uL Normal <0.11 [facility] Comment on above: Order Comment: Speci men Type: BLOOD SPECIMENOrdering Facility: [facility] Address: [address] [place] [address] Performed By: #### 5 7021-8 ####[facility] [id number] [place] [address] [place] Basophils/100 WBC (Bld) 0.7 % Normal C [facility] Comment on above: Order Comment: Speci men Type: BLOOD SPECIMENOrdering Facility: [facility] Address: [address] [place] [address] Performed By: #### 5 7021-8 ####[facility] [id number] [place] [address] [place] [facility] Differential cell count method Nom (Bld) Auto Normal [facility] Comment on above: Order Comment: Speci men Type: BLOOD SPECIMENOrdering Facility: [facility] Address: [address] [place] [address] Performed By: #### 5 7021-8 ####[facility] DIONEWINSTON SALEMNCA [id number] [place] [address] [place] Eosinophils (Bld) [#/Vol] 0.09 10*3/uL Normal <0.46 [facility] Comment on above: Order Comment: Speci men Type: BLOOD SPECIMENOrdering Facility: [facility] Address: [address] [place] [address] Performed By: #### 5 7021-8 ####[facility] ERYOHANNESA [id number] [place] [address] [place] Eosinophils/100 WBC (Bld) 0.9 % Normal [facility] Comment on above: Order Comment: Speci men Type: BLOOD SPECIMENOrdering Facility: [facility] Address: [address] [place] [address] Performed By: #### 5 7021-8 ####[facility] ERYOHANNESA [id number] [place] [address] [place] Erythrocyte distribution width (RBC) [Ratio] 15.8 % High 11.5-15.0 [facility] Comment on above: Order Comment: Speci men Type: BLOOD SPECIMENOrdering Facility: [facility] Address: [address] [place] [address] Performed By: #### 5 7021-8 ####[facility] ERYOHANNESLIA [id number] [place] [address] [place] Hematocrit (Bld) [Volume fraction] 39.0 % Normal 36.0-46.0 [facility] Comment on above: Order Comment: Speci men Type: BLOOD SPECIMENOrdering Facility: [facility] Address: [address] [place] [address] Performed By: #### 5 7021-8 ####[facility] [id number] [place] [address] [place] Hemoglobin (Bld) [Mass/Vol] 12.2 g/dL Normal 11.5-15.5 [facility] Comment on above: Order Comment: Speci men Type: BLOOD SPECIMENOrdering Facility: [facility] Address: [address] [place] [address] Performed By: #### 5 7021-8 ####[facility] [id number] [place] [address] [place] Immature granulocytes (Bld) [#/Vol] 0.03 10*3/uL Normal <0.10 [facility] Comment on above: Order Comment: Speci men Type: BLOOD SPECIMENOrdering Facility: [facility] Address: [address] [place] [address] Performed By: #### 5 7021-8 ####[facility] [id number] [place] [address] [place] Immature granulocytes/100 WBC (Bld) 0.3 % Normal [facility] Comment on above: Order Comment: Speci men Type: BLOOD SPECIMENOrdering Facility: [facility] Address: [address] [place] [address] Performed By: #### 5 7021-8 ####[facility] [id number] [place] [address] [place] Lymphocytes (Bld) [#/Vol] 1.86 10*3/uL Normal 1.00-4.00 [facility] Comment on above: Order Comment: Speci men Type: BLOOD SPECIMENOrdering Facility: [facility] Address: [address] [place] [address] Performed By: #### 5 7021-8 ####[facility] [id number] [place] [address] [place] Lymphocytes/100 WBC (Bld) 19.5 % Normal [facility] Comment on above: Order Comment: Speci men Type: BLOOD SPECIMENOrdering Facility: [facility] Address: [address] [place] [address] Performed By: #### 5 7021-8 ####[facility] [id number] [place] [address] [place] MCH (RBC) [Entitic mass] 26.6 pg Normal 26.0-34.0 [facility] Comment on above: Order Comment: Speci men Type: BLOOD SPECIMENOrdering Facility: [facility] Address: [address] [place] [address] Performed By: #### 5 7021-8 ####[facility] [id number] [place] [address] [place] MCHC (RBC) [Mass/Vol] 31.3 g/dL Normal 30.5-36.0 [facility] Comment on above: Order Comment: Speci men Type: BLOOD SPECIMENOrdering Facility: [facility] Address: [address] [place] [address] Performed By: #### 5 7021-8 ####[facility] [id number] [place] [address] [place] MCV (RBC) [Entitic vol] 85.2 fL Normal 80.0-100.0 [facility] Comment on above: Order Comment: Speci men Type: BLOOD SPECIMENOrdering Facility: [facility] Address: [address] [place] [address] Performed By: #### 5 7021-8 ####[facility] [id number] [place] [address] [place] Monocytes (Bld) [#/Vol] 0.66 10*3/uL Normal <0.87 [facility] Comment on above: Order Comment: Speci men Type: BLOOD SPECIMENOrdering Facility: [facility] Address: [address] [place] [address] Performed By: #### 5 7021-8 ####[facility] DIONEPILARA [id number] [place] [address] [place] Monocytes/100 WBC (Bld) 6.9 % Normal [facility] Comment on above: Order Comment: Speci men Type: BLOOD SPECIMENOrdering Facility: [facility] Address: [address] [place] [address] Performed By: #### 5 7021-8 ####[facility] ERNCSALTYA [id number] [place] [address] [place] Neutrophils (Bld) [#/Vol] 6.81 10*3/uL Normal 1.45-7.50 [facility] Comment on above: Order Comment: Speci men Type: BLOOD SPECIMENOrdering Facility: [facility] Address: [address] [place] [address] Performed By: #### 5 7021-8 ####[facility] [id number] [place] [address] [place] Neutrophils/100 WBC (Bld) 71.7 % Normal [facility] Comment on above: Order Comment: Speci men Type: BLOOD SPECIMENOrdering Facility: [facility] Address: [address] [place] [address] Performed By: #### 5 7021-8 ####[facility] [id number] [place] [address] [place] Nucleated RBC (Bld) [#/Vol] 10*3/uL Normal <0.01 [facility] Comment on above: Order Comment: Speci men Type: BLOOD SPECIMENOrdering Facility: [facility] Address: [address] [place] [address] Performed By: #### 5 7021-8 ####[facility] ERNCLIA [id number] [place] [address] [place] Nucleated RBC/100 WBC (Bld) [Ratio] 0.0 /100 WBC Normal [facility] Comment on above: Order Comment: Speci men Type: BLOOD SPECIMENOrdering Facility: [facility] Address: [address] [place] [address] Performed By: #### 5 7021-8 ####[facility] DIONEWINSTON SALEMALFRED [id number] [place] [address] [place] Platelet mean volume (Bld) [Entitic vol] 9.4 fL Normal 9.0-12.7 [facility] Comment on above: Order Comment: Speci men Type: BLOOD SPECIMENOrdering Facility: [facility] Address: [address] [place] [address] Performed By: #### 5 7021-8 ####[facility] ERALFRED [id number] [place] [address] [place] Platelets (Bld) [#/Vol] 460 10*3/uL High 150-400 [facility] Comment on above: Order Comment: Speci men Type: BLOOD SPECIMENOrdering Facility: [facility] Address: [address] [place] [address] Performed By: #### 5 7021-8 ####[facility] DIONEWINSTON SALEMYOHANNESFERNIE [id number] [place] [address] [place] RBC (Bld) [#/Vol] 4.58 10*6/uL Normal 3.90-5.20 [facility] Comment on above: Order Comment: Speci men Type: BLOOD SPECIMENOrdering Facility: [facility] Address: [address] [place] [address] Performed By: #### 5 7021-8 ####[facility] ERNCLIA [id number] [place] [address] [place] WBC (Bld) [#/Vol] 9.52 10*3/uL Normal 3.70-11.00 [facility] Comment on above: Order Comment: Speci men Type: BLOOD SPECIMENOrdering Facility: [facility] Address: [address] [place] [address] Performed By: #### 5 7021-8 ####[facility] [id number] [place] [address] [place] Cardiology Visit Reporton Cardiology Visit Report [facility] [address] [place] [id number] OFFICE VISIT Date of Service: 09/06/24 MR#: [id number] Acct: [id number] Name: BRITNEY CANADA Rep #: [id number] : 1945 Provider: IVET Quezada Age/Sex: 78/F Location: [facility] Status: Signed HPI HPI History of Present Illness Details: Britney Canada is a 78-year-old female that presents here today for a cardiovascular follow up. She does have a history of paroxysmal atrial flutter, ventricular tachycardia, history of right occipital lobe infarct. Patient was admitted on February 06, 2020 to [facility] for an acute right occipital [...] air Intake Visit Reasons: 1 Y FU Copy Clerk Required: No Is patient in pain?: No [...] balance prob (more content not included)... Normal [facility] HbA1c (Bld)on 09-06-2024 Average glucose Estimated from glycated hemoglobin (Bld) [Mass/Vol] 154 mg/dL Normal [facility] Comment on above: Order Comment: Kamla clark Type: BLOOD SPECIMENOrdering Facility: [facility] Address: [address] [place] [address] Result Comment: eAG: (Estimated average glucose) is a calculated value from HgbA1c and is technical services representative of the average blood glucose level in the last 2-3 month period. Performed By: #### 5 5454-3 ####[facility] LABCLIA [id number] [place] [address] [place] HbA1c (Bld) [Mass fraction] 7.0 % High 4.3-5.6 [facility] Comment on above: Order Comment: Kamla clark Type: BLOOD SPECIMENOrdering Facility: [facility] Address: [address] [place] [address] Result Comment: [place] Diabetes Association guidelines indicate that patients with HgbA1c in the range 5.7-6.4% are at increased risk for development of diabetes, and intervention by lifestyle modification may be beneficial. HgbA1c greater or equal to 6.5% is considered diagnostic of diabetes. Performed By: #### 5 5454-3 ####[facility] LABCLIA [id number] [facility] [id number] [address] [facility] Lipid 1996 panelon 5 Cholesterol [Mass/Vol] 123 mg/dL Normal <200 [facility] Comment on above: Order Comment: Speci men Type: BLOOD SPECIMENOrdering Facility: [facility] Address: [address] [place] [address] Result Comment: <200 mg/dL, Desirable 200-239 mg/dL, Borderline high >239 mg/dL, High Performed By: #### 3 016-3 ####[facility] LABCLIA [id number] [facility] [address], [facility]#### 50033-5 ####[facility] LABCLIA [id number] [facility] [address] [place] [address] [facility] [id number] [address] Cholesterol in HDL [Mass/Vol] 33 mg/dL Low >39 [facility] Comment on above: Order Comment: Speci men Type: BLOOD SPECIMENOrdering Facility: [facility] Address: [address] [place] [address] Result Comment: 40-5 9 mg/dL, Acceptable >59 mg/dL, High: Negative risk factor for coronary heart disease <40 mg/dL, Low: Positive risk factor for coronary heart disease Performed By: #### 3 016-3 ####[facility] LABCLIA [id number] EUCD [facility] [id number] [address] [facility] [place]#### [address]-9 ####[facility] LABCLIA [id number] [facility] [id number] [id number] [address] Cholesterol in LDL [Mass/Vol] 65 mg/dL Normal <100 [facility] Comment on above: Order Comment: Speci men Type: BLOOD SPECIMENOrdering Facility: [facility] Address: [address] [place] [address] Result Comment: <100 mg/dL, Optimal 100-129 mg/dL, Near optimal/above optimal 130-159 mg/dL, Borderline high 160-189 mg/dL, High >189 mg/dL, Very high Secondary prevention optimal LDL Cholesterol levels are recommended to be <70 mg/dL LDL cholesterol is calculated using the Anna-NIH equation. Performed By: #### 3 016-3 ####[facility] LABCLIA [id number] [address]#### [address]-3 ####[facility] LABCLIA [id number] [address] [id number] [address] Cholesterol in LDL/Cholesterol in HDL [Mass ratio] 1.97 {ratio} Normal <2.54 [facility] Comment on above: Order Comment: Speci men Type: BLOOD SPECIMENOrdering Facility: [facility] Address: [address], [place] [address] Result Comment: Heather rg: 1. National Cholesterol Education Program ATP III Guideline At-A-Glance Quick Desk Reference: National Heart, Lung, and Blood Dewey. National Institutes of Health. 2001: NIH Publication No. 01-3305. 2. An International Atherosclerosis Society position paper: global recommendations for the management of dyslipidemia: executive summary, Atherosclerosis. 2014: 232(2):410-413. Performed By: #### 3 016-3 ####[facility] LABCLIA [id number] [address]#### [address]90[address]-7 ####[facility] LABCLIA [id number] [facility] [address], [address] [id number] [address] Cholesterol in VLDL [Mass/Vol] 21 mg/dL Normal <30 [facility] Comment on above: Order Comment: Speci men Type: BLOOD SPECIMENOrdering Facility: [facility] Address: [address] [place] [address] Performed By: #### 3 016-3 ####[facility] LABCLIA [id number] [address]#### [address]-2 ####[facility] LABCLIA [id number] [facility] [address] [id number] [address] Cholesterol non HDL [Mass/Vol] 90 mg/dL Normal <130 [facility] Comment on above: Order Comment: Speci men Type: BLOOD SPECIMENOrdering Facility: [facility] Address: [address] [place], [place] [address], [place] [address] Result Comment: <130 mg/dL, Optimal 130-159 mg/dL, Near optimal/above optimal 160-189 mg/dL, Borderline high 190-219 mg/dL, High >219 mg/dL, Very high Secondary prevention optimal non HDL Cholesterol levels are recommended to be <100 mg/dL Performed By: #### 3 016-3 ####[facility] LABCLIA [id number] [facility] [address] OF [place]#### 472[address]-6 ####[facility] LABCLIA [id number] [facility] [address], [address] STATES OF [facility] [id number] [address] [place] Cholesterol.total/Leticia sterol in HDL [Mass ratio] 3.73 {ratio} Normal <5.10 [facility] Comment on above: Order Comment: Speci men Type: BLOOD SPECIMENOrdering Facility: [facility] Address: [address] [place] [address] Performed By: #### 3 016-3 ####[facility] LABCLIA [id number] [address] STATES [place]#### 269[address]-2 ####[facility] LABCLIA [id number] [address] OF [facility] [id number] [place] [address] [place] FASTING TIME 12 hrs Normal [facility] Comment on above: Order Comment: Speci men Type: BLOOD SPECIMENOrdering Facility: [facility] Address: [address] [place] [address] [place] [address] Performed By: #### 3 016-3 ####[facility] LABCLIA [id number] [address] STATES [place]#### 94193-8 ####[facility] LABCLIA [id number] [address] OF [facility] [id number] [place] [address] OF [place] Triglyceride [Mass/Vol] 139 mg/dL Normal <[address] [facility] Comment on above: Order Comment: Speci men Type: BLOOD SPECIMENOrdering Facility: [facility] Address: [address] [place], [place] [address] [address] Result Comment: <150 mg/dL, Normal 150-199 mg/dL, Borderline high 200-499 mg/dL, High >499 mg/dL, Very high Performed By: #### 3 016-3 ####[facility] LABIA [id number] [address]#### [address]69-5 ####[facility] LABIA [id number] [address] [id number] [place] [address] [place] TSH SerPl-aCncon 09-06-2024 TSH Qn 1.720 m[IU]/L Normal 0.270-4.200 [facility] Comment on above: Order Comment: Speci men Type: BLOOD SPECIMENOrdering Facility: [facility] Address: [address] [place] [address] Performed By: #### 3 016-3 ####[facility] [id number] [address] OF [place]#### 50105-3 ####[facility] [id number] [address] [id number] [address] [facility] (FAMPWS) BRITNEY CANADA ([id number]) 1945 F Date Time Provider Department 08/14/24 11:45 AM [place] NURSE FAMPWS During your visit today, we [...] Encounter Status:Closed by AGUEDA SABILLON on 08/14/24 [facility] Bacteria Ur Culton 5 Bacteria identified [...] , Intermediate >32 , Resistant >64 Abnormal [facility] Comment on above: Performed By: #### 6 30-4 ####[facility] LABSAMANTHA [id number] [place] [id number] [place] CNOVon 07-25-2024 CNOV Office Visit (INTMWS ) BRITNEY CANADA ([id number]) 1945 F Date Time Provider Department 07/25/24 [...] with a UTI after a flight to [place] during which she did not drink enough [...] rash o (more content not included)... Normal [facility] UA DIP, URINE (POC)on 2024 BILIRUBIN UA (POCT) Negative Negative [facility] CLARITY UA (POCT) Cloudy [facility] COLOR UA (POCT) Other [facility] GLUCOSE UA (POCT) 100 mg/dL Abnormal Negative [facility] Hemoglobin Ql (U) Small Abnormal Negative [facility] Interpretation and review of laboratory results Abnormal [facility] KETONE UA (POCT) Negative Negative mg/dL [facility] LEUKOCYTES UA (POCT) Large Abnormal Negative [facility] NITRITE UA (POCT) Positive Abnormal Negative [facility] PH UA (POCT) 5.5 4.5 - 8.0 [facility] Protein Ql (U) 30 mg/dL Abnormal Negative [facility] SPECIFIC GRAVITY UA (POCT) 1.015 1.005 - 1.030 [facility] UROBILINOGEN UA (POCT) 0.2 Niecy l E.U./dL [facility] Location:[address], [place], [place], [address] [place] [address] POINT OF CARE [facility]2024 [facility] Nurse Visit (FAMPWS) BRITNEY CANADA ([id number]) 1945 F Date Time Provider Department 07/17/24 11:45 AM [place] NURSE FAMPWS During your visit today, we [...] Encounter Status:Closed by AGUEDA SABILLON on 07/17/24 [facility] 06-19-2024 [facility] Nurse Visit (FAMPWS) BRITNEY CANA[place] ([id number]) 1945 F Date Time Provider Department 06/19/24 11:45 AM [place] NURSE FAMPWS During your visit today, we [...] Encounter Status:Closed by AGUEDA SABILLON on 06/19/24 [facility] CNOVon 06-09-2024 CNOV Office Visit (INTMWS ) BRITNEY CANADA ([id number]) 1945 F Date Time Provider Department 06/09/24 10:00 AM ASTRID MUSE INTFERNANDA During your visit today, we recorded the following information about you: Pulse Respiration Blood pressure Weight 64/minute 16/minute 112/68 81.2 kg Astrid Muse APRN.ELECTRONIC COURT RECORDER 06/09/2024 12:19 PM Signed CC: Patient presents [...] due on (more content not included)... Normal [facility] CNNURSEon 05-22-2024 [facility] Nurse Visit (FAMPWS) BRITNEY [place]NA[place] ([id number]) 1945 F Date Time Provider Department 05/22/24 11:45 AM [place] NURSE FAMPWS During your visit today, we [...] Status:Closed by AGUEDA SABILLON on 05/22/24 Normal [facility] CNOVon 04-28-2024 CNOV Office Visit (INTMWS ) BRITNEY [place]NA[place] ([id number]) 1945 F Date Time Provider Department 04/28/24 [...] Urine Album (more content not included)... Normal [facility] ALBUMIN/CREATININE RATIO, UR INEon 04-26-2024 Albumin DL <= 20 mg/L (U) [Mass/Vol] 23.4 mg/L Normal [facility] Comment on above: Order Comment: Speci men Type: URINE SPECIMENOrdering Facility: [facility] Address: [address] [place] [address] Performed By: #### U ACR ####[facility] LABCLIA [id number] [place] [address] [place] Albumin/Creatinine (U) [Mass ratio] 36 mg/g High <30 [facility] Comment on above: Order Comment: Speci men Type: URINE SPECIMENOrdering Facility: [facility] Address: [address] [place] [address] Result Comment: Adul t Male and Female Nephrotic Criteria: <30 mg/g is considered normal to mildly increased 30-300 mg/g is considered moderately increased >300 mg/g is considered severely increased KDIGO. (2013). KDIGO 2012 Clinical Practice Guideline for the Evaluation and Management of Chronic Kidney Disease. Official Journal of the International Society of Nephrology, 3(1), 1-150. Performed By: #### U ACR ####[facility] LABCLIA [id number] [place] [address] [place] Creatinine (U) [Mass/Vol] 65.6 mg/dL Normal 20.0-300.0 [facility] Comment on above: Order Comment: Speci men Type: URINE SPECIMENOrdering Facility: [facility] Address: [address] [place] [address] Performed By: #### U ACR ####[facility] LABCLIA [id number] [place] [address] [place] Bacteria Ur Culton Bacteria identified Cx Nom (U) ORGANISM ID: 1 50,000-<100,000 CFU/ml Normal urogenital kevin Normal [facility] Comment on above: Performed By: #### 6 30-4, 06721-8 ####[facility] LABCLIA [id number] [place] [address] [place] CBC panel Auto (Bld)on 04-26 Erythrocyte distribution width (RBC) [Ratio] 16.3 % High 11.5-15.0 [facility] Comment on above: Order Comment: Speci men Type: BLOOD SPECIMENOrdering Facility: [facility] Address: [address] [place] [address] Performed By: #### 5 8410-2 ####[facility] DIONEWNCLIA [id number] [place] [address] [place] Hematocrit (Bld) [Volume fraction] 38.6 % Normal 36.0-46.0 [facility] Comment on above: Order Comment: Speci men Type: BLOOD SPECIMENOrdering Facility: [facility] Address: [address] [place] [address] Performed By: #### 5 8410-2 ####[facility] ERYOHANNESLIA [id number] [place] [address] [place] Hemoglobin (Bld) [Mass/Vol] 11.7 g/dL Normal 11.5-15.5 [facility] Comment on above: Order Comment: Speci men Type: BLOOD SPECIMENOrdering Facility: [facility] Address: [address] [place] [address] Performed By: #### 5 8410-2 ####[facility] [id number] [place] [address] [place] MCH (RBC) [Entitic mass] 25.7 pg Low 26.0-34.0 [facility] Comment on above: Order Comment: Speci men Type: BLOOD SPECIMENOrdering Facility: [facility] Address: [address] [place] [address] Performed By: #### 5 8410-2 ####[facility] [id number] [place] [address] [place] MCHC (RBC) [Mass/Vol] 30.3 g/dL Low 30.5-36.0 [facility] Comment on above: Order Comment: Speci men Type: BLOOD SPECIMENOrdering Facility: [facility] Address: [address] [place] [address] Performed By: #### 5 8410-2 ####[facility] ERNCLIA [id number] [place] [address] [place] MCV (RBC) [Entitic vol] 84.6 fL Normal 80.0-100.[address] [facility] Comment on above: Order Comment: Speci men Type: BLOOD SPECIMENOrdering Facility: [facility] Address: [address] [place] [address] Performed By: #### 5 8410-2 ####[facility] ERALFRED [id number] [place] [address] [place] Nucleated RBC (Bld) [#/Vol] 10*3/uL Normal <0.01 [facility] Comment on above: Order Comment: Speci men Type: BLOOD SPECIMENOrdering Facility: [facility] Address: [address] [place] [address] Performed By: #### 5 8410-2 ####[facility] ERYOHANNESAdelita [id number] [place] [address] [place] Platelet mean volume (Bld) [Entitic vol] 9.5 fL Normal 9.0-12.7 [facility] Comment on above: Order Comment: Speci men Type: BLOOD SPECIMENOrdering Facility: [facility] Address: [address] [place] [address] Performed By: #### 5 8410-2 ####[facility] ERJUDYA [id number] [place] [address] [place] Platelets (Bld) [#/Vol] 442 10*3/uL High 150-400 [facility] Comment on above: Order Comment: Speci men Type: BLOOD SPECIMENOrdering Facility: [facility] Address: [address] [place] [address] Performed By: #### 5 8410-2 ####[facility] [id number] [place] [address] [place] RBC (Bld) [#/Vol] 4.56 10*6/uL Normal 3.90-5.20 [facility] Comment on above: Order Comment: Speci men Type: BLOOD SPECIMENOrdering Facility: [facility] Address: [address] [place] [address] Performed By: #### 5 8410-2 ####[facility] POINTWNCLIA [id number] [place] [address] [place] WBC (Bld) [#/Vol] 7.66 10*3/uL Normal 3.70-11.00 [facility] Comment on above: Order Comment: Speci men Type: BLOOD SPECIMENOrdering Facility: [facility] Address: [address] [place] [address] Performed By: #### 5 8410-2 ####[facility] ERNCA [id number] [place] [address] [place] Comprehensive metabolic 2000 panelon 04-26-2024 Albumin [Mass/Vol] 4.2 g/dL Normal 3.9-4.9 [facility] Comment on above: Order Comment: Speci men Type: BLOOD SPECIMENOrdering Facility: [facility] Address: [address] [place] [address] Performed By: #### 2 4323-8 ####[facility] ERNCLIA [id number] [place] [address] [place] ALP [Catalytic activity/Vol] 72 U/L Normal 34-123 [facility] Comment on above: Order Comment: Speci men Type: BLOOD SPECIMENOrdering Facility: [facility] Address: [address] [place] [address] Performed By: #### 2 4323-8 ####[facility] ERNCLIA [id number] [place] [address] [place] ALT [Catalytic activity/Vol] 11 U/L Normal 7-38 [facility] Comment on above: Order Comment: Speci men Type: BLOOD SPECIMENOrdering Facility: [facility] Address: [address] [place] [address] Performed By: #### 2 4323-8 ####[facility] SUKHJINDER MILLTOWNCLIA [id number] [place] [address] [place] Anion gap [Moles/Vol] 14 mmol/L Normal 8-15 [facility] Comment on above: Order Comment: Speci men Type: BLOOD SPECIMENOrdering Facility: [facility] Address: [address] [place] [address] Performed By: #### 2 4323-8 ####[facility] MILLTOWNCLIA [id number] [place] [address] [place] AST [Catalytic activity/Vol] 12 U/L Low 13-35 [facility] Comment on above: Order Comment: Speci men Type: BLOOD SPECIMENOrdering Facility: [facility] Address: [address] [place] [address] Performed By: #### 2 4323-8 ####[facility] MILLTOWNCLIA [id number] [place] [address] [place] Bilirubin [Mass/Vol] 0.7 mg/dL Normal 0.2-1.3 [facility] Comment on above: Order Comment: Speci men Type: BLOOD SPECIMENOrdering Facility: [facility] Address: [address] [place] [address] Performed By: #### 2 4323-8 ####[facility] MILLTOWNCLIA [id number] [place] [address] [place] Calcium [Mass/Vol] 9.8 mg/dL Normal 8.5-10.2 [facility] Comment on above: Order Comment: Speci men Type: BLOOD SPECIMENOrdering Facility: [facility] Address: [address] [place] [address] Performed By: #### 2 4323-8 ####[facility] MILLTOWNCLIA [id number] [place] [address] [place] Chloride [Moles/Vol] 102 mmol/L Normal 98-107 [facility] Comment on above: Order Comment: Speci men Type: BLOOD SPECIMENOrdering Facility: [facility] Address: [address] [place] [address] Performed By: #### 2 4323-8 ####[facility] [id number] [place] [address] [place] CO2 [Moles/Vol] 24 mmol/L Normal 22-30 [facility] Comment on above: Order Comment: Speci men Type: BLOOD SPECIMENOrdering Facility: [facility] Address: [address] [place] [address] Performed By: #### 2 4323-8 ####[facility] [id number] [place] [address] [place] Creatinine [Mass/Vol] 0.59 mg/dL Normal 0.58-0.96 [facility] Comment on above: Order Comment: Speci men Type: BLOOD SPECIMENOrdering Facility: [facility] Address: [address] [place] [address] Performed By: #### 2 4323-8 ####[facility] [id number] [address] [facility] Creatinine and Glomerular filtration rate.predicted panel (S/P/Bld) 93 mL/min/1.73m??? Normal >=60 [facility] Comment on above: Order Comment: Speci men Type: BLOOD SPECIMENOrdering Facility: [facility] Address: [address] [place] [address] Result Comment: Shakira mated Glomerular Filtration Rate [...] GFR. Performed By: #### 2 4323-8 ####[facility] ERNCLIA [id number] [place] [address] [place] Glucose [Mass/Vol] 129 mg/dL High 74-99 [facility] Comment on above: Order Comment: Speci men Type: BLOOD SPECIMENOrdering Facility: [facility] Address: [address] [place] [address] Result Comment: The [place] Diabetes Association (ADA) provides guidance for cutoff [...] Standards of Medical Care in Diabetes 2016, [place] Diabetes Association. Diabetes Care. 2016.39(Suppl 1). Performed By: #### 2 4323-8 ####[facility] ERNCLIA [id number] [place] [address] [place] Potassium [Moles/Vol] 3.8 mmol/L Normal 3.7-5.1 [facility] Comment on above: Order Comment: Kamla clark Type: BLOOD SPECIMENOrdering Facility: [facility] Address: [address] [place] [address] Performed By: #### 2 4323-8 ####[facility] [id number] [place] [address] [place] Protein [Mass/Vol] 6.8 g/dL Normal 6.3-8.0 [facility] Comment on above: Order Comment: Kamla clark Type: BLOOD SPECIMENOrdering Facility: [facility] Address: [address] [place] [address] Performed By: #### 2 4323-8 ####[facility] [id number] [place] [address] [place] Sodium [Moles/Vol] 140 mmol/L Normal 136-144 [facility] Comment on above: Order Comment: Speci men Type: BLOOD SPECIMENOrdering Facility: [facility] Address: [address] [place] [address] Performed By: #### 2 4323-8 ####[facility] [id number] [place] [address] [place] Urea nitrogen [Mass/Vol] 15 mg/dL Normal 7-21 [facility] Comment on above: Order Comment: Speci men Type: BLOOD SPECIMENOrdering Facility: [facility] Address: [address] [place] [address] Performed By: #### 2 4323-8 ####[facility] [id number] [place] [address] [place] HbA1c (Bld)on 04-26-2024 Average glucose Estimated from glycated hemoglobin (Bld) [Mass/Vol] 160 mg/dL Normal [facility] Comment on above: Order Comment: Speci men Type: BLOOD SPECIMENOrdering Facility: [facility] Address: [address] [place] [address] Result Comment: eAG: (Estimated average glucose) is a calculated value from HgbA1c and is technical services representative of the average blood glucose level in the last 2-3 month period. Performed By: #### 5 5454-3 ####[facility] LABCLIA [id number] [place] [address] [place] HbA1c (Bld) [Mass fraction] 7.2 % High 4.3-5.6 [facility] Comment on above: Order Comment: Speci men Type: BLOOD SPECIMENOrdering Facility: [facility] Address: [address] [place] [address] Result Comment: Amer [place] Diabetes Association guidelines indicate that patients with HgbA1c in the range 5.7-6.4% are at increased risk for development of diabetes, and intervention by lifestyle modification may be beneficial. HgbA1c greater or equal to 6.5% is considered diagnostic of diabetes. Performed By: #### 5 5454-3 ####[facility] LABCLIA [id number] [address] [facility] Lipid 1996 panelon 5 Cholesterol [Mass/Vol] 119 mg/dL Normal <200 [facility] Comment on above: Order Comment: Speci men Type: BLOOD SPECIMENOrdering Facility: [facility] Address: [address] [place] [address] Result Comment: <200 mg/dL, Desirable 200-239 mg/dL, Borderline high >239 mg/dL, High Performed By: #### 3 016-3 ####[facility] LABCLIA [id number] [address] [place]#### 76230-6 ####[facility] LABCLIA [id number] [address] STATES OF [facility] [id number] [address] STATES OF [facility] Cholesterol in HDL [Mass/Vol] 29 mg/dL Low >39 [facility] Comment on above: Order Comment: Speci men Type: BLOOD SPECIMENOrdering Facility: [facility] Address: [address] [place] [address] Result Comment: 40-5 9 mg/dL, Acceptable >59 mg/dL, High: Negative risk factor for coronary heart disease <40 mg/dL, Low: Positive risk factor for coronary heart disease Performed By: #### 3 016-3 ####[facility] LABCLIA [id number] [place] [address] [place]#### 85264-5 ####[facility] LABCLIA [id number] [address] [id number] [address] Cholesterol in LDL [Mass/Vol] 59 mg/dL Normal <100 [facility] Comment on above: Order Comment: Speci men Type: BLOOD SPECIMENOrdering Facility: [facility] Address: [address] [place] [address] Result Comment: <100 mg/dL, Optimal 100-129 mg/dL, Near optimal/above optimal 130-159 mg/dL, Borderline high 160-189 mg/dL, High >189 mg/dL, Very high Secondary prevention optimal LDL Cholesterol levels are recommended to be < 70 mg/dL Performed By: #### 3 016-3 ####[facility] LABCLIA [id number] [address]#### 96440-1 ####[facility] LABCLIA [id number] [address] [id number] [address] Cholesterol in LDL/Cholesterol in HDL [Mass ratio] 2.03 {ratio} Normal <2.54 [facility] Comment on above: Order Comment: Barringtoni men Type: BLOOD SPECIMENOrdering Facility: [facility] Address: [address] [place] [address] Result Comment: Refsophy rg: 1. National Cholesterol Education Program ATP III Guideline At-A-Glance Quick Desk Reference: National Heart, Lung, and Blood Dewey. National Institutes of Health. 2001: NIH Publication No. 01-3305. 2. An International Atherosclerosis Society position paper: global recommendations for the management of dyslipidemia: executive summary, Atherosclerosis. 2014: 232(2):410-413. Performed By: #### 3 016-3 ####[facility] LABCLIA [id number] [place] [id number] [place]#### 28107-5 ####[facility] LABCLIA [id number] [place] [id number] [facility] [id number] [place] [address] [place] Cholesterol in VLDL [Mass/Vol] 31 mg/dL High <30 [facility] Comment on above: Order Comment: Speci men Type: BLOOD SPECIMENOrdering Facility: [facility] Address: [address] [place] [address] Performed By: #### 3 016-3 ####[facility] LABCLIA [id number] [place] [address] [place]#### 99604-7 ####[facility] LABCLIA [id number] [address] STATES OF [facility] [id number] [place] [address] [place] Cholesterol non HDL [Mass/Vol] 90 mg/dL Normal <130 [facility] Comment on above: Order Comment: Speci men Type: BLOOD SPECIMENOrdering Facility: [facility] Address: [address] [place] [address] Result Comment: <130 mg/dL, Optimal 130-159 mg/dL, Near optimal/above optimal 160-189 mg/dL, Borderline high 190-219 mg/dL, High >219 mg/dL, Very high Secondary prevention optimal non HDL Cholesterol levels are recommended to be <100 mg/dL Performed By: #### 3 016-3 ####[facility] LABCLIA [id number] [place] [id number] [place]#### 66923-7 ####[facility] LABCLIA [id number] [address] [id number] [place] [address] [place] Cholesterol.total/Leticia sterol in HDL [Mass ratio] 4.10 {ratio} Normal <5.10 [facility] Comment on above: Order Comment: Speci men Type: BLOOD SPECIMENOrdering Facility: [facility] Address: [address] [place] [address] Performed By: #### 3 016-3 ####[facility] LABCLIA [id number] [place] [address] [place]#### 38774-4 ####[facility] LABCLIA [id number] [address] STATES OF [facility] [id number] [place] [address] [place] FASTING TIME 12 hrs Normal [facility] Comment on above: Order Comment: Speci men Type: BLOOD SPECIMENOrdering Facility: [facility] Address: [address] [place] [address] Performed By: #### 3 016-3 ####[facility] LABCLIA [id number] [place] [address] [place]#### 93280-6 ####[facility] LABCLIA [id number] [place] [id number] [place] AMERICAH[facility] [id number] [place] [address] [place] Triglyceride [Mass/Vol] 157 mg/dL High <[address] [facility] Comment on above: Order Comment: Speci men Type: BLOOD SPECIMENOrdering Facility: [facility] Address: [address] [place], [place] [address] Result Comment: <150 mg/dL, Normal 150-199 mg/dL, Borderline high 200-499 mg/dL, High >499 mg/dL, Very high Performed By: #### 3 016-3 ####[facility] LABCLIA [id number] [place] [address] [place]#### 71072-2 ####[facility] LABCLIA [id number] [address] [id number] [place] [address] [place] TSH SerPl-aCncon 04-26-2024 TSH Qn 1.720 m[IU]/L Normal 0.270-4.200 [facility] Comment on above: Order Comment: Speci men Type: BLOOD SPECIMENOrdering Facility: [facility] Address: [address] [place] [address] Performed By: #### 3 016-3 ####[facility] LABCLIA [id number] [place] [address] [place]#### 26207-7 ####[facility] LABCLIA [id number] [address] [id number] [place] [address] [place] Urinalysis complete panel (U )on 04-26-2024 BACTERIA UL 1174.7 uL High Negative [facility] Comment on above: Order Comment: Speci men Type: URINE SPECIMENOrdering Facility: [facility] Address: [address] [place] [address] Performed By: #### 6 30-4, 64948-6 ####[facility] LABCLIA [id number] [place] [address] [place] Bilirubin Ql (U) Negative Normal Negative [facility] Comment on above: Order Comment: Speci men Type: URINE SPECIMENOrdering Facility: [facility] Address: [address] [place] [address] Performed By: #### 6 30-4, 51520-0 ####[facility] LABCLIA [id number] [place] [address] [place] Clarity (Unsp spec) Cloudy Abnormal Clear [facility] Comment on above: Order Comment: Speci men Type: URINE SPECIMENOrdering Facility: [facility] Address: [address] [place] [address] Performed By: #### 6 30-4, 47027-0 ####[facility] LABCLIA [id number] [place] [address] [place] [facility] Color (U) Yellow Normal Yellow [facility] Comment on above: Order Comment: Speci men Type: URINE SPECIMENOrdering Facility: [facility] Address: [address] [place] [address] Performed By: #### 6 30-, 61526-8 ####[facility] LABCLIA [id number] [place] [address] [place] Epithelial cells LM.HPF (Urine sed) [#/Area] Moderate Normal [facility] Comment on above: Order Comment: Speci men Type: URINE SPECIMENOrdering Facility: [facility] Address: [address] [place] [address] Performed By: #### 6 30-4, 40014-9 ####[facility] LABCLIA [id number] [place] [id number] [place] Glucose Test strip (U) [Mass/Vol] 3+ Abnormal Negative [facility] Comment on above: Order Comment: Speci men Type: URINE SPECIMENOrdering Facility: [facility] Address: [address] [place] [address] Performed By: #### 6 30-4, 79841-5 ####[facility] LABCLIA [id number] [place] [address] [place] Hemoglobin Ql (U) Negative Normal Negative [facility] Comment on above: Order Comment: Speci men Type: URINE SPECIMENOrdering Facility: [facility] Address: [address] [place] [address] Performed By: #### 6 30-4, 08441-5 ####[facility] LABCLIA [id number] [place] [address] [place] Hyaline casts (Urine sed) [#/Area] 1-3 /LPF Abnormal 0 /LPF [facility] Comment on above: Order Comment: Speci men Type: URINE SPECIMENOrdering Facility: [facility] Address: [address] [place] [address] Performed By: #### 6 30-4, 20020-3 ####[facility] LABCLIA [id number] [place] [address] [place] Ketones Ql (U) Negative Normal Negative [facility] Comment on above: Order Comment: Speci men Type: URINE SPECIMENOrdering Facility: [facility] Address: [address] [place] [address] Performed By: #### 6 30-4, 66729-6 ####[facility] LABCLIA [id number] [place] [address] [place] Leukocyte esterase Test strip Ql (U) 2+ Abnormal Negative [facility] Comment on above: Order Comment: Speci men Type: URINE SPECIMENOrdering Facility: [facility] Address: [address] [place] [address] Performed By: #### 6 30-4, 52079-7 ####[facility] LABCLIA [id number] [place] [address] [place] Nitrite Ql (U) Negative Normal Negative [facility] Comment on above: Order Comment: Speci men Type: URINE SPECIMENOrdering Facility: [facility] Address: [address] [place] [address] Performed By: #### 6 30-4, 22796-4 ####[facility] LABCLIA [id number] [place] [address] [place] pH (U) 5.5 [pH] Normal <8.5 [facility] Comment on above: Order Comment: Speci men Type: URINE SPECIMENOrdering Facility: [facility] Address: [address] [place] [address] Performed By: #### 6 30-4, 08176-6 ####[facility] LABIA [id number] [place] [address] [place] Protein (U) [Mass/Vol] Negative Normal Negative Cl [facility] Comment on above: Order Comment: Speci men Type: URINE SPECIMENOrdering Facility: [facility] Address: [address] [place] [address] Performed By: #### 6 30-4, 99237-4 ####[facility] LABIA [id number] [place] [address] [place] RBC LM.HPF (Urine sed) [#/Area] 0-2 /HPF Normal 0-2 /HPF [facility] Comment on above: Order Comment: Speci men Type: URINE SPECIMENOrdering Facility: [facility] Address: [address] [place] [address] Performed By: #### 6 30-4, 83452-5 ####[facility] LABIA [id number] [place] [address] [place] Specific gravity (U) [Rel density] 1.027 Normal 1.005-1.030 [facility] Comment on above: Order Comment: Speci men Type: URINE SPECIMENOrdering Facility: [facility] Address: [address] [place] [address] Performed By: #### 6 30-4, 21477-7 ####[facility] LABIA [id number] [place] [address] [place] Urobilinogen Ql (U) 0.2 EU/dL Normal 0.2-1.0 EU/dL [facility] Comment on above: Order Comment: Speci men Type: URINE SPECIMENOrdering Facility: [facility] Address: [address] [place] [address] Performed By: #### 6 30-4, 70168-8 ####[facility] LABCLIA [id number] [address] [place] WBC LM.HPF (Urine sed) [#/Area] /[HPF] Abnormal 0-5 /HPF [facility] Comment on above: Order Comment: Speci men Type: URINE SPECIMENOrdering Facility: [facility] Address: [address] [place] [address] Performed By: #### 6 30-4, 16752-7 ####[facility] LABCLIA [id number] [address] [place] CYTOLOGY NON-GYNOrdered By: Corina Olmos on 04-05-2024 Case Report Medical Cytology Report Case: [id number] Authorizing Provider: Justin Christopher MD Collected: 04/03/2024 01:55 PM Ordering Location: General Surgery Received: 04/03/2024 04:53 PM Pathologist: Corina Olmos MD Specimen: Thyroid, Left, Lobe, left thyroid [facility] Work Phone: Clinical History n0ivbJFsTQDriTMkKDak M qvvwjLsLJOnlPLpF2Ofjc vkFNcsOW6bTZ4gwTinuUZ hzYSxVPQqQrHax7fug787 gQDhs3giPQQMlurupWl6h VzxZ72ae3Y9NicuX99bmJ ZeILT1GIPyCFWbpROyNIQ mUAO3SFGhuLLeY6wdZXIo TP0zycaxWDrzOSlxSKPoe YD6HVEdtRRwO3PpCMTqRP mdORFuixj9RmBnGl0lpJE yeTcyMFxwYXJkXHBsYWlu QZDfGlLxcFo4al0dDIQtl 4A2tPBuuRErNGAqtyTMPx idmVScyaZjUWq2TUQnrPE yfQ== [facility] Work Phone: Diagnosis Comment c7ittSQsSBQbtKKsOLuy M ivnhpKcKWHteCXiD8Caio seWPxxPU0pCB7vqJzufYI ifRNsOHOdQoRtq8tbl132 gBIle3dmXQRQwqyjbMz8k TamS59iw2Z0HflwM59iiU YxQCW2RPQeWUPseOXxILG mKSH9DXRdoOYjK3ujVUYy DP0ltzrfWZzqJGbqISFcw WG3JJVdkKClZ0MvUWXdHT zzNTEduvc6GqGzEu8xsZO yeTcyMFxwYXJkXHBsYWlu XGZzMjAgRmVhdHVyZXMgc 0CrF3EumQa3HHPxNrXmjA GoskaiNKr4sDTgz6O9fDp jIHRoeXJvaWRpdGlzIGlz IHByZXNlbnQuICBQbGVhc 9HvZ84aelNuRPSkJYdjlQ zvC2rgnyorDOhbNW3uIJs hBUmaqspoJhbnFXvxH0Gv XHBhcn0= [facility] Work Phone: FINAL DIAGNOSIS r3bevSMqTMCikRRrCLem M rytxxNsYLBhuDYdT4Woba ktWPqxHF0rGY2ugOzncKV doIRqYBCpOxDfd5usj257 cCXzf9sbWDSVvswofIu5q OxuL68yp8D5UykiI8eaXK QwXGdyZWVuMFxibHVlMDt ccmVkMFxncmVlbjBcYmx1 XWP7YMq7KLIycLIwtwHnI lElCYWuvAGthWI0EPZsXF 1ljkaeOcBaBB2ocnqtYhO iVN7ukje9XhUyZO9iwxsh JhOdSWuyXYRtlcw8XcWgJ o5fbYVzqAvnZDrpL3hioS 4cUeT7QWfdX4cikU5kYWf 2SSblJBWcbFE2uasqGCht CUDkuyZ3rwqwMBouNKYky QX0yynvOIpzBWKsUpE6cy cyMFxwYXJkXHBsYWluXGJ cZnMyMlxjZjEgQSAtIFRo eXJvaWQsIExlZnQsIExvY mUsIEZOQSAgXHBhciAgIC AgICAgICAgQmVuaWduLjs oWALzEXQiw88nDX73JXSm xcFbNTMlAXUjBLKcNKg9F ZYcfIyyhk3fGZ8jVY6lW5 QtNb4stOilfHKfMFUscOm 4OHMui1u2pYHnE5XcjZZx eA5idC2anOLhdsFltyKbD SL2thKricEoH41yzX4wAD xwYXIgICAgICBccGFyXGN kYAe6XYAlWLHjXVZgHMMl clxwYXJcYjAgVGhlIGZvb Plij1tcFcLqWZupHERdg0 CmihF7GLGaQDRsz42qlCO 4GWBsm3m7wFU8yAmsCWJa k5J7ZNPsplJPIEx6FTBdH 4LqjLTEgP7sdlduUFsel0 dteGRWcHhlSSm2ELRjiRH dPOXvH0HnNTDwwfkmRZer ZjBccGFyfQ== [facility] Work Phone: Gross Description i2iuaORiRHToeILLMEQ9 M TStDF5whDzpwMj2fVjpSH UqutP0vHYrCQfva8eiUXO 4v6banfVKEayyLAGvTW5k WCcyAMWsUM8dEsGjYWIiP mYxXHBhcGVydzEyMjQwXH DqsCOayIY2CBBoCN3azzv uPJoyFMxeCXSvrcR3NWLm aLOvW9UmRTIfDT8jrhtaF GW4OHRJXuroPd7hgBPbmT tcZjFcZmNoYXJzZXQwXGZ tp2duqhHTdcdutPx9kV5M HWAdR1JbSW2Fn7pbYLRtu FAdGFO3CElbu7opPGynFC H1SUBsXKKgRUKyHX3TRuV tHKl0HBJ5SbFiEaW9YUq1 OJSFMEMfGWImHXS8SFmnL Bp7XYktZWcrfLYjNTKnBA UuQQDrSMpsssG4t2vzGWO azHKxCZO2UYvci6xbIHtq VZL9MYOyDpTwEJRvVW5GN uKlOOk4QUG9LhVoChI1VA k8FBKEKvYaJhYgDuKkUBR 6VnjpBTo9ZPi3VFaIVwWq IKmkYEgnVRXePKE9QVF8H SBcXHQgMiBcXHNzIDMgXF ufsVQhOU4saOacDDSeUL1 MGVQrOElbGZZlBuUfWR3w VCp8fx4oLIzdJZOpsJrdP A7iEXtmqCUtsXrpAORuDN pccGFyZCANClxwbGFpblx sdHJjaFxmczIyXGVwaWNO TRT8OW9eGCMSJzcnkHMcT XIgDQozMCBjYyBccHJvdG TgoBkiRwtocXO7SGpvHbm sqF8ihYPTKAENEwlMRwqj bdQzUX0BDQNLPhREPI50A ATbIxL5pYY8JJ52ZAQqLC XqtQFmCWbrF466K8tuPRK 1TQJyYYepy0baAHVzJZpx x0UxZTwRCLNFNY2YPT9ao JG6GMtVDXLEPBmqSSL5MW P5JOwbvKzjOnrwxnWlnDU lRuFAtC5mgJehzM9rbJAt V3tlLeExIgVeOGVbn1SaW 7R4TAOiXNsqy2vbSIBpBI wru5DuCMfYSQUKHV3AER9 tcCI4CAhQLASYB4uQnPR8 XCogERafsFQ1o6ggsVUzf 8c0UZqjOCG6sRWoqxm6JO YqQEmme2jsANNbSZvjx3K aPYaESZZXSW9KBY9gfSR6 SOxDDVLNUQifZOD1IJS8N nwyfXtcZmxkcnNsdCBcJz WMpJ0imAbbxU2yxZDvK9v jLwCjRoPzDZHfh2ExR3I8 MMGfSCfbr1azHMTjSJurm 6FlZYxJTUSZRF8ALJ2vfI X5BXlCWKOHR5uMoZB3LFv cGVshoGM5p0qcrSKhz0y1 XCpmYMM3dQP6qD5BnNI9E QZbQIvka4drJJHnVNgbx2 VyBGiKWXSZNZ0EED9knLH 7IDvFKOVZIGtqPLL6YMn6 R2elzPzyQtpvqrKpaRHoF jCZyN5wtKkjaC7tuJGwW6 rcOmItCuJvAQPbl7GwT7W 1ITCsLVpgy1otVMHaLHyn s5JtPZrAROUOMH6TRO6zp PL4QWyIOLAGD1vEdFB3VD evBCs0eFA3c8yeyLXse0g 0BZihTIO5xAxwzShutUXz kFzvhKNnn0flvMDzWOmpT vsenDPnatV0IQhDYFVSQD vZJrVgKR3eRZrLK7QTHnC 6MERrLlRflIE1SK66MNYj AVBuxDPhRDtoK936VBSeD AuqUVo9npDaKPQlTuFaXo PmJKBqp0YaA9P7LLTtMSu bk4tnXREcBQyvo3VxBVkE LOJQZL7MJW4nfJI2AZkWA YMLD2qZyOJ2JBM6F9y9gZ Q7o3rmeGFnc3t8FChtOLP 6gTBahH2QvpXiNJCpVLML NVnkZFTpo2Mlf5lqeYXjB NbsJccdvCDcwkG1HQjLCK KAGRwGFiUhWI1fPYtQY8P ZKbT4HNF9DOq2jNV2EI95 BJBjPJNhpBPpNJbfQ837G XIjHLgeGVd1sgCgGZFnYr IgIHByZXBhcmVkIFxwcm9 7YQJ1p8lwvENoOUzdIlsf bAJugzF0DAxFNHMHDHjCS sGsJI4gFGoSE2YNONuWJa kgYAQ8MHS0Zia2vIxdEgo etaOtvLAjJrFZiA0exjBn OGIyj1QsI7Bpa8ibwNZuI CvnUydlyUDjnzM8HTvMZN CVDPaPJxXgDT2sOPvKSLI DESwNQad2cLbwOrpbtsPh aGLdDsLIcH84m1bhuFDrR AaoRbgojSHeaqU8CHrAOD LBWMsEZnInAY7gGTeFRKA YZbI5S177MKUuRFJvzZNa VEmdF938KWJuXRihZDj3h qCvFSCyn0NjJ2MePuTcGf Mkh44rLGFzWgngPyymxGC 2MZzvSsgwaP0iuKGAWUIP JvjIXzgstdIsGL5UHMJJG A7RiNZ4XSxyQIo5pRS6x7 eocCRle1g4QTrvMCL5vOt wbGFpblxsdHJjaFxmczIy XHBhciANClxwYXIgDQpBZ yftjQQywyRhCNv3KULzgL ZeXR8FZSTnVqSxMGSrS5x tJQQzUN4CDVVdU83CFkQL USWUZ61TSFTECICML1ZOP 9qGOBQ5TNqdNOtgIKMyFW ZiFvG9rRT5MTGsLOZtUwM 4sOV2VI1eDQA1NjM0TI4k MgP1QRT3J7o1HIFeYVSkM NG4fOD2VRc7IbLZFLYEZZ oGQ0NnSLDGTQFQIQFcWS1 CORoJQWFJKPGPA28LBBVP FRNQX7UYI0gXJFyrfkzGV PzCY5HVMM7JJWGBRYWVZX 1IWlIqHIzJI2MYV7zGGOW eWJYQFWAWDUDlWmQEHG9o UBt6L3oAHdfDGPrxXHF9P NRobTZcf8DOHJ6OMfQ6SO bbFDc2J9b2TCATBMVBYXr 7BDAyBzZ3OB60ADmMGMQX HLDQIRD7ZXZrPvWyVC16O SbUEDVAAUPBV8eALoR4GC B4X2r2Ctc9O32XKUHMUTT RQ2GAVgDQVwL6CKriSQl7 JJEDQXHNDH5ZDTJAJ02FI YRAPJAKS6TSBRSWGzCHXT QVH14UHCOYKVZPP0JQZ2p GLWHWFpTSGQWCT44CPEUC OYATB5RCARRNKSHXXpUHU xYNPH8CVZGSFPWZUX6NTF pICxBdDTGWZ7SVUgFKI6c yBEZQHVPKFBTjLR5CZJlx cjAcISKpT70ae8TBn3Jjj 8nvaUmax7WdyTDgWP54LC ElzQTxUQV6JX9jwZqoBRH cVEdvgXOpMZCMSaz1FPDP Cn0= [facility] Work Phone: Performing Lab p5sijJMtOWZcy5wnZZVu b GFuZzEwMzNcZnRuYmpcdW MxIHtccnRmMVxhbnNpXGR aAdzlkbqtOIIeKRH9mfEb HUNjPXS9WUJ3EbKtd6A6O HRbTdQsBMMiOJ4xfHdmDC OeEM1uGNQcF1mszZ0btde 2KiAyUUBkMsH5FSJmxmI0 Vvv4VTCmYVlvs1dpr5ExJ PJsZAb2fFbbKzZmKMWgw4 lzcyBcZmNoYXJzZXQwIEF uyNRnK045a3ige4eqnwOb nMA8TOKrPPH3JHesmrDtn gV9ATllbYJyBvO2KRpgwk YdRVrfgcShrzBaTuc6LYP bG505OUU0hLviy6kaRKP3 ODIuPOBlQpSnOm3dhESlD 824LFGrJPXFFDKzfEo0GU DumvGzemIeuKWLm888V97 6z4cjKREqqsGwoXbWjhzj z8wgU933SSAesEDbbtXtT hVeDCVluUJyqYN9AOAfNO 1hcmdsMTgwMFxtYXJncjE 1EZCrgJVpW6PzWILxSW5h mwetLWB8ZJcfOULfDTO2U jMsUICrg6Mwrjh1VjPtjt 2jtr96JXK2w8GbuWunDPL 1VVB2KxLbAz2zeFKvSGQs UZ7vMoOhdMAvWYJffw55m SjqNGjzwuFutB8fFpMnBS IhcGCxDEQkDR3ynUCnAJC ojM6gnohvDQXaZiBaquar URCbbRlejqQzVe7abMkbU ME8AWjrH7dbuR6jXhV6RA tpM4mtsC1rOZm4BCiitJG 9PCUjaU7rGM3uayjjs9jj CZirGPttVGAtfrK4oyY3X ELacULcS3LhrZ6vSXQfYC 4wvmxgs5yaHWN6BSxbKSH dFQD1GuUwRWKbr5Xnfbx1 BsHhq0AwfOGeEXayC69pw 303WAUzenXkF0ppxRIiks julAZaubbxHZskowF2GYW sXHBsYWluXGYxXGZzMjJc bGFuZzEwMzNcaGljaFxmM VmtMiUaILYdVHljI1ayJc FcZnMyMiBUZWNobmljYWw tZ79elP6kNG24QDBxhPUb yQUhsQ0aiK3zyGZ7MDGma pWhoxwtNsEsZSGuu7FvLG YiNKDvX3dagsBmPN3dSVY jpZ3zXgasBYTkNLMIqGWh fQAjBXIwUAYDwCA3EBsac aZcA6pxGOTrBJRgNRNFGH zUZlLwVvOpGyR1SZz6ION avf75z8fdyVHnDIOlzGMm XqNzJBNgUCZvv8saEJVyo GFuZzEwMzNcZnRuYmpcdW DeQREgSvNii1xqd746xZH um3snLTZmCdN6lWGtBLJn pPCbM573XNEzHRkrp5dcp 6IkVLPlkGMas3S9NMMPej jhdNd8xYtzF57ee1P7Twp kX9ufMOHbHSHuL5XfAP1a AOAsIli8EJJ1VJB8QJMhH FZhT5LiCZ9kMVXexSBrIT g1v0yfyIpcOEMsFNX6e3f eKMqtunWkPJ6uom6pdHw7 p1nagcBwUBLcTPTgyYLFJ MUfR2BzcSnwRq6lkIp8mI zvTqkgEHS8Gbi7TJ1kpm4 9blc3uWyoZLFhxyavMeU3 OXknMSBvmfaoLCv5VCcyO AThyAQ3TDCcyKJaR0GsQQ tqVH8spkl5EPZ9BBegEST sKmM7VOOyzNMmXXFmnHmb BTlti407JAN5AfHtUX7rP 7Zhn8R4xS3rnDPkILOqvQ CdQkMzFPQalz1nmAXhBGk lp5FoNYZ9ufJ9gDZtqNKp SYMfNY50Wfxta5PxSfbse 1QjP27hxTF6IZltx4rpGT 0pYsH7ekBiCRygm2oadI6 zUnB9XRqcBQ5rEK7qBEXj xI1gvvnvIVAtFhLzzdxxK PRavTqxrpHyAt3lpRzyKE Q4TImvT4wufO4pNuB8VSf kD2bqfW4nHKz1XWhhfIM4 GBDcjW9oPC0bauxjl6gsF GjqVNqvLRYyyuV8wvKxIA GxrURuD6ZvkA8vCYMbSS7 gxntrn5niTWK5DBpvTSFb WYW2EsFdZAXwa4Wmygp4C rCsf7HyiEKmSPwjK27lw7 95GPRgebObO0docDXdkwa snEHimoynXLkxusS5ANKy XHBsYWluXGYxXGZzMjBcb GFuZzEwMzNcaGljaFxmMV sjLrDpASKuAJduL6giOcX sRcEoVOJOsLPtsu2lhXmt BZtyvBOrqPNczLP0bT3wD ZCxtlRmaw4mVSSvnVBXmL D1WMvaqrBjK9sxhvhrPMW 6JYDkDWB1X3zuRTWLbkXm KBYuUMAduUCzXXCDEJB4C ZO6ODMoIUVCPUIdPCO1UB X2ANDuEUKagAAsFGXaxmu wYXJkXHBsYWluXGYwXGZz XbHkaWvyuW8wYrNuXzMzN OvmCN3zRCLfZ5geiYOwAZ McFWIsO9qiKbHlgN7tpTk mMVxjZjJcZnMyMFxsdHJj cYMZNYCwjpW4u6R4UQobm GFpblxmMVxmczIwXGxhbm vcHSNtEYjzP1ooJnKeVBK awMrgYHtxh0ArGJLkZIOd RvKtJSqlHSB3z2I8YKfyq NVshaCQIcQMMD1olLRrei bgFZ3SShtzbEIubwcjCZr mczIyXGxhbmcxMDMzXGhp F1umAoUbKCDviJthIHvmt 2NoXGYxXGZzMjJccGFyfX 0= [facility] Work Phone: [facility] Work Phone: SKYLAROVon 04-03-2024 CNOV Office Visit (ANAS ) BRITNEY CANADA ([id number]) 1945 F Date Time Provider Department 04/03/24 [...] to your office visit today with the [facility]. Instructions After THYROID FINE NEEDLE [...] you have any questions or concerns @ [phone]. Please make an appointment to follow up in one week with your physician and [facility] If you note any additional difficulties, questions, or concerns, you should contact our office immediately @ [phone] and ask to be transferred to the [...] THYROID BIOPSY LEFT (POC) SURG USE ONLY [0342480] Order #: [id number]. #:[id number]: 1 CYTOLOGY NON-STRAINER TENDER [SUB1450] Order #: [id number]. #:[id number] Prescriptions as of 04/10/2024 - levothyroxine (LEVOXYL) [...] as of (more content not included)... Normal [facility] CYTOLOGY NON-GYNon 5 CASE REPORT Normal [facility] Comment on above: Order Comment: Speci men Type: SPECIMEN OBTAINED BY ASPIRATIONOrdering Facility: [facility] Address: [address] [place] [address] Result Comment: [facility] Cytology Report Case: [id number] Authorizing Provider: Justin Christopher MD Collected: 04/03/2024 01:55 PM Ordering Location: General Surgery Received: 04/03/2024 04:53 PM Pathologist: Corina Olmos MD Specimen: Thyroid, Left, Lobe, left thyroid Performed By: #### C YTONON ####[facility] LABCLIA [id number] [address] [place] CLINICAL HISTORY thyroid nodule Normal [facility] Comment on above: Order Comment: Speci men Type: SPECIMEN OBTAINED BY ASPIRATIONOrdering Facility: [facility] Address: [address] [place] [address] Result Comment: Afirma received Performed By: #### C YTONON ####[facility] LABCLIA [id number] [address] OF [facility] DIAGNOSIS COMMENT Features suggestive of chronic lymphocytic thyroiditis is present. Please correlate with clinical and imaging findings. Normal [facility] Comment on above: Order Comment: Speci men Type: SPECIMEN OBTAINED BY ASPIRATIONOrdering Facility: [facility] Address: [address] [place] [address] Performed By: #### C YTONON ####[facility] LABIA [id number] [address] FINAL DIAGNOSIS Normal [facility] Comment on above: Order Comment: Speci men Type: SPECIMEN OBTAINED BY ASPIRATIONOrdering Facility: [facility] Address: [address] [place] [address] Result Comment: A - Thyroid, Left, Lobe, FNA Benign.; See comment Mixed micro and macrofollicles admixed with scant lymphocytes and abundant colloid The following cell blocks were associated with this case: A1 Cell Block, Alcohol Fixed Performed By: #### C YTONON ####[facility] LABCLIA [id number] [address] STATES OF [facility] FINAL PERFORMING LAB Normal [facility] Comment on above: Order Comment: Speci men Type: SPECIMEN OBTAINED BY ASPIRATIONOrdering Facility: [facility] Address: [address] [place] [address] Result Comment: Tech nical component, master planner screening performed at [facility], [address] [place] [address] CLIA# [id number] Diagnostic interpretation performed at [facility], [address] [place] [address] CLIA# [id number] [employer] Teacher: Jasvir Valdes M.D. Performed By: #### C YTONON ####[facility] LABCLIA [id number] [address] STATES OF [place] GROSS DESCRIPTION Normal [facility] Comment on above: Order Comment: Speci men Type: SPECIMEN OBTAINED BY ASPIRATIONOrdering Facility: [facility] Address: [address] [place] [address] Result Comment: A. T hyroid, Left, Lobe 30 cc clear pink CytoLyt with particles. ThinPrep and Cell Block prepared and 8 smears. Afirma received Performed By: #### C YTONON ####[facility] LABCLIA [id number] [place] [address] [place] US THYROID BIOPSY LEFT (POC) SURG USE ONLYon 04-03-2024 [facility] CNNURSEon 03-20-2024 [facility] Nurse Visit (ROMELIAPWS) BRITNEY CANADA ([id number]) 1945 F Date Time Provider Department 03/20/24 11:45 AM [place] NURSE ROMELIAPWS During your visit today, we [...] Encounter Status:Closed by AGUEDA SABILLON on 03/20/24 [facility] CNOVon 03-20-2024 CNOV Office Visit (NANDO ) BRITNEY CANADA ([id number]) 1945 F Date Time Provider Department 03/20/24 1:15 PM JUSTIN CHRISTOPHER During your visit today, [...] 3 Curre (more content not included)... Normal [facility] CNOVon 03-15-2024 CNOV Office Visit (INTMWS ) BRITNEY CANADA ([id number]) 1945 F Date Time Provider Department 03/15/24 10:20 AM ASTRID MUSE INTFERANNDA During your visit today, we recorded the following information about you: Pulse Respiration Blood pressure Weight 60/minute 16/minute 128/74 82.6 kg Astrid Muse APRN.ELECTRONIC COURT RECORDER 03/15/2024 11:10 AM Signed CC: Patient presents [...] PCP T (more content not included)... Normal [facility] Neurology Visit Reporton Neurology Visit Report [facility] [address], [address] [place] [address] OFFICE VISIT Date of Service: 03/14/24 MR#: [id number] Acct: [id number] Name: BRITNEY CANADA Rep #: [id number] : 1945 Provider: Dr. Fabiano coreas MD Age/Sex: 78/F Location: [facility] Status: Signed HPI HPI Chief Complaint: Details: [...] follow-up. Head/neck CTA (02/06/2020): IMPRESSION: 1. Normal [place] without evidence of intracranial aneurysm [...] white m (more content not included)... Normal [facility] PATRICIABRITNEY FLORES ([id number]) 1945 F Date Time Provider Department 02/21/24 11:45 AM [place] NURSE JOE During your visit today, we [...] Encounter Status:Closed by AGUEDA SABILLON on [facility] Telephone (INTMWS) BRITNEY CANADA ([id number]) 1945 F Date Time Provider Department 02/14/24 [...] Status:Closed by AGUEDA SABILLON on 02/14/24 Normal [facility] Bacteria Ur Culton 4 Bacteria identified Cx Nom (U) ORGANISM ID: 1 50,000-<100,000 CFU/ml Mixed microbiota No further workup. Mixed microbiota can be due to???urine???contamin ation with skin bacteria at time of collection or presence of a long-term urinary catheter. If a new culture is needed, please consider re-education of the patient on proper midstream collection technique or straight catheterization for???urine???collect ion. Normal [facility] Comment on above: Performed By: #### 6 30-4, 53294-9 ####[facility] LABCLIA [id number] [place] [address] [place] Urinalysis complete panel (U )on 02-11-2024 Bacteria LM.HPF (Urine sed) [#/Area] Negative Normal Negative [facility] Comment on above: Order Comment: Speci men Type: URINE SPECIMENOrdering Facility: [facility] Address: [address] [place] [address] Performed By: #### 6 30-4, 84646-0 ####[facility] LABIA [id number] [place] [address] [place] Bilirubin Ql (U) Negative Normal Negative [facility] Comment on above: Order Comment: Speci men Type: URINE SPECIMENOrdering Facility: [facility] Address: [address] [place] [address] Performed By: #### 6 30-4, 07081-6 ####[facility] LABIA [id number] [place] [address] [place] Clarity (Unsp spec) Clear Normal Clear [facility] Comment on above: Order Comment: Speci men Type: URINE SPECIMENOrdering Facility: [facility] Address: [address] [place] [address] Performed By: #### 6 30-4, 32088-1 ####[facility] LABIA [id number] [place] [address] [place] Color (U) Yellow Normal Yellow [facility] Comment on above: Order Comment: Speci men Type: URINE SPECIMENOrdering Facility: [facility] Address: [address] [place] [address] Performed By: #### 6 30-4, 88250-0 ####[facility] LABIA [id number] [place] [address] [place] Epithelial cells LM.HPF (Urine sed) [#/Area] Moderate Normal [facility] Comment on above: Order Comment: Speci men Type: URINE SPECIMENOrdering Facility: [facility] Address: [address] [place] [address] Performed By: #### 6 30-4, 27542-0 ####[facility] LABCLIA [id number] [address] [place] Glucose Test strip (U) [Mass/Vol] 3+ Abnormal Negative [facility] Comment on above: Order Comment: Speci men Type: URINE SPECIMENOrdering Facility: [facility] Address: [address] [place] [address] Performed By: #### 6 30-4, 00039-0 ####[facility] LABCLIA [id number] [place] [address] [place] Hemoglobin Ql (U) Negative Normal Negative [facility] Comment on above: Order Comment: Speci men Type: URINE SPECIMENOrdering Facility: [facility] Address: [address] [place] [address] Performed By: #### 6 30-, 30616-1 ####[facility] LABCLIA [id number] [place] [address] [place] Hyaline casts (Urine sed) [#/Area] 0 /[LPF] Normal 0 /LPF [facility] Comment on above: Order Comment: Speci men Type: URINE SPECIMENOrdering Facility: [facility] Address: [address] [place] [address] Performed By: #### 6 30-4, 43548-6 ####[facility] LABCLIA [id number] [place] [address] [place] Ketones Ql (U) Negative Normal Negative [facility] Comment on above: Order Comment: Speci men Type: URINE SPECIMENOrdering Facility: [facility] Address: [address] [place] [address] Performed By: #### 6 30-4, 04949-9 ####[facility] LABCLIA [id number] [place] [address] [place] Leukocyte esterase Test strip Ql (U) 1+ Abnormal Negative [facility] Comment on above: Order Comment: Speci men Type: URINE SPECIMENOrdering Facility: [facility] Address: [address] [place] [address] Performed By: #### 6 30-4, 32952-3 ####[facility] LABCLIA [id number] [place] [address] [place] Nitrite Ql (U) Negative Normal Negative [facility] Comment on above: Order Comment: Speci men Type: URINE SPECIMENOrdering Facility: [facility] Address: [address] [place] [address] Performed By: #### 6 30-4, 78209-2 ####[facility] LABCLIA [id number] [place] [address] [place] pH (U) 6.0 [pH] Normal <8.5 [facility] Comment on above: Order Comment: Speci men Type: URINE SPECIMENOrdering Facility: [facility] Address: [address] [place] [address] Performed By: #### 6 30-4, 47891-3 ####[facility] LABCLIA [id number] [place] [address] [place] Protein (U) [Mass/Vol] Negative Normal Negative [facility] Comment on above: Order Comment: Speci men Type: URINE SPECIMENOrdering Facility: [facility] Address: [address] [place] [address] Performed By: #### 6 30-4, 64040-9 ####[facility] LABCLIA [id number] [place] [address] [place] RBC LM.HPF (Urine sed) [#/Area] 0-2 /HPF Normal 0-2 /HPF [facility] Comment on above: Order Comment: Speci men Type: URINE SPECIMENOrdering Facility: [facility] Address: [address] [place] [address] Performed By: #### 6 30-4, 97291-2 ####[facility] LABIA [id number] [place] [address] [place] Specific gravity (U) [Rel density] 1.033 High 1.005-1.030 [facility] Comment on above: Order Comment: Speci men Type: URINE SPECIMENOrdering Facility: [facility] Address: [address] [place] [address] Performed By: #### 6 30-4, 13899-6 ####[facility] [id number] [place] [address] [place] Urobilinogen Ql (U) 0.2 EU/dL Normal 0.2-1.0 EU/dL [facility] Comment on above: Order Comment: Speci men Type: URINE SPECIMENOrdering Facility: [facility] Address: [address] [place] [address] Performed By: #### 6 30-4, 06544-0 ####[facility] [id number] [place] [address] [place] WBC LM.HPF (Urine sed) [#/Area] 11-20 /HPF Abnormal 0-5 /HPF [facility] Comment on above: Order Comment: Speci men Type: URINE SPECIMENOrdering Facility: [facility] Address: [address] [place] [address] Performed By: #### 6 30-4, 89172-0 ####[facility] [id number] [place] [address] [place] Basic metabolic 2000 panelon 02-09-2024 Anion gap [Moles/Vol] 12 mmol/L Normal 8-15 [facility] Comment on above: Order Comment: Speci men Type: BLOOD SPECIMENOrdering Facility: [facility] Address: [address] [place] [address] Performed By: #### 1 9123-9, 07551-3 ####[facility] SUKHJINDER MILLTOWNCLIA [id number] [place] [address] [place] Calcium [Mass/Vol] 9.9 mg/dL Normal 8.5-10.2 [facility] Comment on above: Order Comment: Speci men Type: BLOOD SPECIMENOrdering Facility: [facility] Address: [address] [place], [place] [address] Performed By: #### 1 9123-9, ####[facility] MILLTOWNCLIA [id number] [place] [address] [place] Chloride [Moles/Vol] 105 mmol/L Normal 98-107 [facility] Comment on above: Order Comment: Speci men Type: BLOOD SPECIMENOrdering Facility: [facility] Address: [address] [place] [address] Performed By: #### 1 91239, ####[facility] MILLWYOHANNESLIA [id number] [place] [address] [place] CO2 [Moles/Vol] 23 mmol/L Normal 22-30 [facility] Comment on above: Order Comment: Speci men Type: BLOOD SPECIMENOrdering Facility: [facility] Address: [address] [place], [place] [address] Performed By: #### 1 91239, 36243-4 ####[facility] MILLTOWNCLIA [id number] [place] [address] [place] Creatinine [Mass/Vol] 0.62 mg/dL Normal 0.58-0.96 [facility] Comment on above: Order Comment: Speci men Type: BLOOD SPECIMENOrdering Facility: [facility] Address: [address] [place], [place] [address] Performed By: #### 1 91239, 52690-7 ####[facility] [id number] [place] [address] [place] Creatinine and Glomerular filtration rate.predicted panel (S/P/Bld) 92 mL/min/1.73m??? Normal >=60 [facility] Comment on above: Order Comment: Kamla clark Type: BLOOD SPECIMENOrdering Facility: [facility] Address: [address] [place] [address] Result Comment: Shakira mated Glomerular Filtration Rate [...] actual GFR. Performed By: #### 1 9123-9, 15331-9 ####[facility] [id number] [place] [address] [place] Glucose [Mass/Vol] 138 mg/dL High 74-99 [facility] Comment on above: Order Comment: Kamla clark Type: BLOOD SPECIMENOrdering Facility: [facility] Address: [address] [place] [address] Result Comment: The [place] Diabetes Association (ADA) provides guidance for cutoff [...] Standards of Medical Care in Diabetes 2016, [place] [employer] Association. Diabetes Care. 2016.39(Suppl 1). Performed By: #### 1 9123-9, 98365-4 ####[facility] [id number] [place] [address] [place] Potassium [Moles/Vol] 4.4 mmol/L Normal 3.7-5.1 [facility] Comment on above: Order Comment: Speci men Type: BLOOD SPECIMENOrdering Facility: [facility] Address: [address] [place] [address] Performed By: #### 1 9123-9, 51484-0 ####[facility] ERALFRED [id number] [place] [address] [place] Sodium [Moles/Vol] 140 mmol/L Normal 136-144 [facility] Comment on above: Order Comment: Speci men Type: BLOOD SPECIMENOrdering Facility: [facility] Address: [address] [place] [address] Performed By: #### 1 9123-9, 48477-7 ####[facility] [id number] [place] [address] [place] Urea nitrogen [Mass/Vol] 10 mg/dL Normal 7-21 [facility] Comment on above: Order Comment: Speci men Type: BLOOD SPECIMENOrdering Facility: [facility] Address: [address] [place] [address] Performed By: #### 1 9123-9, 05392-7 ####[facility] [id number] [place] [address] [place] Angela 02-09-2024 PINKY Telephone (JOE) BRITNEY CANADA ([id number]) 1945 F Date Time Provider Department 02/09/24 [...] Pt called back and was transferred to assistant real estate manager. Gladis Vallecillo LPN Allergies As of Date: 02/09/2024 Noted Allergy Reaction DARVON (PROPOXYPHENE HCL) 10/11/2008 8 - GI Upset PENICILLINS 10/11/2008 2 - Rash Date Reviewed: 10/27/2023 Reviewed by: Chantale Alves MA - Fully Assessed Reason for Visit: Results [95] Primary Visit Diagnosis:Thyroid nodule [E04.1] Order(s):CONSULT TO GENERAL SURGERY [9011] Order #: [id number]: 1 FUTURE Prescriptions as of 02/10/2024 - [...] Encounter Status:Closed by GLADIS VALLECILLO on 02/10/24 [facility] Magnesium SerPl-mCncon 02-08 Magnesium [Mass/Vol] 1.8 mg/dL Normal 1.7-2.3 [facility] Comment on above: Order Comment: Speci men Type: BLOOD SPECIMENOrdering Facility: [facility] Address: [facility] [place] [id number] Performed By: #### 1 9123-9, 74353-2 ####[facility] [id number] [place] [address] [place] US THYROID/PARATHYROIDon US [...] 2 points Echogenicity: Hypoechoic, 2 points Shape: Nltzt-peux-lawx, 0 points Margin: Smooth, 0 points Echogenic [...] be communicated with the ordering provider via [employer] staff message or phone message by [employer] within 2 business days of report finalization. --END OF FINDING-- Community Living Coach: KELLYB Transcribe Date/Time: Feb 10 2024 1:06P Dictated by : KAYLIN GALEANO MD This examination was interpreted and the report reviewed and electronically signed by: KAYLIN GALEANO MD on Feb 10 2024 1:49PM EST [id number] N ACTIONABLE Invalid Interpretation Code [facility] CNOVon 02-02-2024 CNOV Office Visit (INTMWS ) BRITNEY CANADA ([id number]) 1945 F Date Time Provider Department 02/02/24 12:20 PM ASTRID MUSE During your visit today, we recorded the following information about you: Pulse Respiration Blood pressure Weight 56/minute 16/minute 128/72 83.9 kg Astrid Muse APRN.[facility] 02/02/2024 1:41 PM Signed CC: Patient presents with: Recheck: ER Follow up UTI HPI Britney David [place] is a 78 year old female who presents today for Hospital follow-up. Patient's discharge instructions provided but no other records available. Facility: [facility] Date of visit: 01/19 - 01/20 Reason [...] Colorectal Cancer Screening Discontinued DATA REVIEWED: requesting [facility] records to be fully reviewed. ASSESSMENT/PLAN: 1. History of recent hospitalization - ICD9: V13.9, ICD10: Z92.89 (primary diagnosis) For UTI resulting in vomiting and hypomagnesemia Need to get full imaging and lab results to review for further information. At this time (more content not included)... [facility] Nurse Visit (FAMPWS) BRITNEY CANADA ([id number]) 1945 F Date Time Provider Department 01/24/24 1:15 PM [place] NURSE FAMPWS During your visit today, we [...] Status:Closed by AGUEDA SABILLON on 01/24/24 Normal [facility] .Auto Diffon 01-21-2024 Basophil, Absolute 0.1 10 3/mcL Normal 0.0-0.2 [facility] Comment on above: Performed By: #### A DIFF, LIPID, CBC, ANEU, BMP, GFR #### [address] [address] Basophils/100 WBC (Bld) 0.7 % Normal 0.0-2.5 A [facility] Comment on above: Performed By: #### A DIFF, LIPID, CBC, ANEU, BMP, GFR #### [address] [place], [place] [address] Eosinophil, Absolute 0.0 10 3/mcL Normal 0.0-0.7 [facility] Comment on above: Performed By: #### A DIFF, LIPID, CBC, ANEU, BMP, GFR #### [address] [place], [place] [address] Eosinophils/100 WBC (Bld) 0.0 % Normal 0.0-7.0 [facility] Comment on above: Performed By: #### A DIFF, LIPID, CBC, ANEU, BMP, GFR #### [address] [address] Lymphocyte, Absolute 0.4 10 3/mcL Low 0.9-4.3 [facility] Comment on above: Performed By: #### A DIFF, LIPID, CBC, ANEU, BMP, GFR #### [address] [address] Lymphocytes/100 WBC (Bld) 4.4 % Low 20.0-40.0 [facility] Comment on above: Performed By: #### A DIFF, LIPID, CBC, ANEU, BMP, GFR #### [address] [address] Monocyte, Absolute 0.3 10 3/mcL Normal 0.1-1.4 [facility] Comment on above: Performed By: #### A DIFF, LIPID, CBC, ANEU, BMP, GFR #### [address] [address] Monocytes/100 WBC (Bld) 3.8 % Normal 2.0-13.0 [facility] Comment on above: Performed By: #### A DIFF, LIPID, CBC, ANEU, BMP, GFR #### [address] [address] Neutrophils/100 WBC (Bld) 91.1 % High 50.0-75.0 [facility] Comment on above: Performed By: #### A DIFF, LIPID, CBC, ANEU, BMP, GFR #### [address] [address] .GFRon 01-21-2024 GFR Non- 76 ml/min/1.73sqm Normal [facility] Comment on above: Result Comment: GFR Population [...] A DIFF, LIPID, CBC, ANEU, BMP, GFR ####[address] [place], [place] [address] GFR 92 ml/min/1.73sqm Normal [facility] Comment on above: Result Comment: GFR Population [...] A DIFF, LIPID, CBC, ANEU, BMP, GFR ####[address] [place], [place] [address] .NEUABSon 01-21-2024 Neutrophil, Absolute 8.4 10 3/mcL High 2.3-8.1 [facility] Comment on above: Performed By: #### A DIFF, LIPID, CBC, ANEU, BMP, GFR ####[address] [place], [place] [address] .Urinalysis Microscopic (AO) on 01-21-2024 UA Bacteria 2+ /hpf Abnormal [facility] Comment on above: Performed By: #### U A, UAMICAO ####[address] [place], [place] [address] UA RBC 0-5 Abnormal None Seen [facility] Comment on above: Performed By: #### U A, UAMICAO ####[facility] [place], [place] [address] UA Squam Epithelial 10-15 Abnormal None Seen [facility] Comment on above: Performed By: #### U A, UAMICAO ####[facility] [place], [place] [address] UA WBC LOADED Abnormal None Seen [facility] Comment on above: Performed By: #### U A, UAMICAO ####[facility] [place], [place] [address] A1Con 01-21-2024 Glucose [Mass/Vol] 157 mg/dL Normal [facility] Comment on above: Result Comment: Shakira mated Average Glucose calculated by equation ((28.7xA1C)-46.7) Estimated average glucose (eAG) is a calculated value from Hemoglobin A1C and is technical services representative of the average blood glucose level in the last 2-3 month period. Normal range: less than 114 mg/dL Performed By: #### A 1C #### [facility] [address] [place], [place] [address] HbA1c (Bld) [Mass fraction] 7.1 % High 4.3-6.4 [facility] Comment on above: Performed By: #### A 1C #### [facility] [address] [place], [place] [address] BMPon 01-21-2024 BUN/Creatinine Ratio 18 ratio Normal 7-27 [facility] Comment on above: Performed By: #### A DIFF, LIPID, CBC, ANEU, BMP, GFR ####[facility] [place], [place] [address] Calcium [Mass/Vol] 8.8 mg/dL Normal 8.4-10.2 [facility] Comment on above: Performed By: #### A DIFF, LIPID, CBC, ANEU, BMP, GFR ####[facility] [place], [place] [address] Chloride [Moles/Vol] 105 mmol/L Normal 98-107 [facility] Comment on above: Performed By: #### A DIFF, LIPID, CBC, ANEU, BMP, GFR ####[address] [address] CO2 [Moles/Vol] 29 mmol/L Normal 23-31 [facility] Comment on above: Performed By: #### A DIFF, LIPID, CBC, ANEU, BMP, GFR ####[address] [address] Creatinine [Mass/Vol] 0.74 mg/dL Normal 0.55-1.02 [facility] Comment on above: Result Comment: Test ing performed on Siemens Dimension EXL analyzer using a modified kinetic Brtiany technique. Performed By: #### A DIFF, LIPID, CBC, ANEU, BMP, GFR ####[address] [address] Electrolyte Balance 8.0 mEq/L Normal 4.0-15.[address] [facility] Comment on above: Performed By: #### A DIFF, LIPID, CBC, ANEU, BMP, GFR ####[address] [address] Glucose [Mass/Vol] 117 mg/dL High 83-110 [facility] Comment on above: Performed By: #### A DIFF, LIPID, CBC, ANEU, BMP, GFR ####[address] [address] Potassium [Moles/Vol] 4.7 mmol/L Normal 3.5-5.1 [facility] Comment on above: Performed By: #### A DIFF, LIPID, CBC, ANEU, BMP, GFR ####[address] [address] Sodium [Moles/Vol] 142 mmol/L Normal 136-145 [facility] Comment on above: Performed By: #### A DIFF, LIPID, CBC, ANEU, BMP, GFR ####[address] [address] Urea nitrogen [Mass/Vol] 13 mg/dL Normal 7-18 [facility] Comment on above: Performed By: #### A DIFF, LIPID, CBC, ANEU, BMP, GFR ####[address] [address] CBCon 01-21-2024 Erythrocyte distribution width (RBC) [Ratio] 16.9 % High 11.5-15.5 [facility] Comment on above: Performed By: #### A DIFF, LIPID, CBC, ANEU, BMP, GFR #### [place] [address] Hematocrit (Bld) [Volume fraction] 32.0 % Low 34.0-46.0 [facility] Comment on above: Performed By: #### A DIFF, LIPID, CBC, ANEU, BMP, GFR #### [place] [address] Hgb 10.3 G/dL Low 12.0-16.0 [facility] Comment on above: Performed By: #### A DIFF, LIPID, CBC, ANEU, BMP, GFR #### [place] [address] MCH (RBC) [Entitic mass] 27.2 pg Normal 27.0-33.0 [facility] Comment on above: Performed By: #### A DIFF, LIPID, CBC, ANEU, BMP, GFR #### [address] [address] MCHC 32.1 G/dL Normal 32.0-36.0 [facility] Comment on above: Performed By: #### A DIFF, LIPID, CBC, ANEU, BMP, GFR #### [address] [address] MCV (RBC) [Entitic vol] 84.8 fL Normal 80.0-99.0 [facility] Comment on above: Performed By: #### A DIFF, LIPID, CBC, ANEU, BMP, GFR #### [address] [address] Platelet 415 10 3/mcL Normal 150-450 [facility] Comment on above: Performed By: #### A DIFF, LIPID, CBC, ANEU, BMP, GFR #### [facility] [address] [place], [place] [address] Platelet mean volume (Bld) [Entitic vol] 7.7 fL Normal 6.6-10.5 [facility] Comment on above: Performed By: #### A DIFF, LIPID, CBC, ANEU, BMP, GFR #### [address] [place], [place] [address] RBC 3.77 10 6/mcL Low 4.10-5.30 [facility] Comment on above: Performed By: #### A DIFF, LIPID, CBC, ANEU, BMP, GFR #### [address] [place], [place] [address] WBC 9.2 10 3/mcL Normal 4.5-10.8 [facility] Comment on above: Performed By: #### A DIFF, LIPID, CBC, ANEU, BMP, GFR #### [address] [place], [place] [address] LABORATORYOrdered By: Germaine Travis on 01-21-2024 Blood Glucose Testing Reason Routine (01/21/24 12:26 PM) [facility] Work Phone: Glucose [Mass/Vol] 124 mg/dL High 82 - 115 mg/dL [facility] Work Phone: Blood Glucose Testing Reason Routine (01/21/24 7:56 AM) [facility] Work Phone: Glucose [Mass/Vol] 114 mg/dL Normal 82 - 115 mg/dL [facility] Work Phone: LABORATORYOrdered By: SYSTEM SYSTEM on [...] 01-21-2024 Cholesterol [Mass/Vol] 114 mg/dL Normal 0-200 [facility] Comment on above: Result Comment: Chol esterol Reference Interval: Less than 200 Desirable 200-239 Borderline high risk 240 and above High risk Performed By: #### A DIFF, LIPID, CBC, ANEU, BMP, GFR ####[address] [place], [place] [address] Cholesterol in HDL [Mass/Vol] 42 mg/dL Normal 40-60 [facility] Comment on above: Performed By: #### A DIFF, LIPID, CBC, ANEU, BMP, GFR ####[address] [place], [place] [address] Cholesterol in LDL [Mass/Vol] 53 mg/dL Normal 0-130 [facility] Comment on above: Performed By: #### A DIFF, LIPID, CBC, ANEU, BMP, GFR ####[address] [place], [place] [address] Triglyceride [Mass/Vol] 97 mg/dL Normal 0-150 [facility] Comment on above: Result Comment: Trig lyceride Reference Interval: Less than 150 Normal 150-199 Borderline high risk 200-499 High risk 500 or higher Very high risk Performed By: #### A DIFF, LIPID, CBC, ANEU, BMP, GFR ####[address] [place], [place] [address] MRI BRAIN W/O CONTRASTon MRI BRAIN W/O CONTRAST ORIGINAL EXAMINATION: MRI OF THE BRAIN WITHOUT ZUJQAYWM76/15/2024 11:27 am MR BRAIN W/O CONTRAST TECHNIQUE: [...] 11:45:49 AM Ordering Provider: ROMULO RAI Normal [facility] No Panel Informationon 01-20 Microscopic examination of blood, culture Culture has been received in lab and is no growth to date. Routine cultures are held for 5 days. [facility] Work Phone: UAon 01-21-2024 Color (U) Yellow Normal [facility] Comment on above: Performed By: #### U GONZALO Ureña ####[place] [address] Glucose (U) [Mass/Vol] mg/dL Abnormal Negative [facility] Comment on above: Performed By: #### U A, UAMICAO ####[address] [place] [address] Ketones Ql (U) 15 mg/dL Abnormal Negative [facility] Comment on above: Performed By: #### U A, UAMICAO ####[address] [place] [address] UA Appear Slightly Cloudy Abnormal Clear [facility] Comment on above: Performed By: #### U A, UAMICAO ####[address] [place] [address] UA Blood Negative Normal Negative [facility] Comment on above: Performed By: #### U A, UAMICAO ####[address] [place] [address] UA Leuk Est Small Abnormal Negative [facility] Comment on above: Performed By: #### U A, UAMICAO ####[address] [place] [address] UA Nitrite Positive Abnormal Negative [facility] Comment on above: Performed By: #### U A, UAMICAO ####[address] [address] UA pH 5.0 Normal 5.0 - 8.0 [facility] Comment on above: Performed By: #### U A, UAMICAO ####[place] [place] [address] UA Protein Negative Normal Negative [facility] Comment on above: Performed By: #### U A, UAMICAO ####[address] [place] [address] UA Spec Grav <=1.005 Abnormal 1.015-1.025 [facility] Comment on above: Performed By: #### U A, UAMICAO ####[address] [address] UA Specimen Type Clean Catch Normal [facility] Comment on above: Performed By: #### U A, UAMICAO ####[address] [place], [place] [address] UA Urobilinogen 0.2 E.U./dL Normal 0.2-1.0 [facility] Comment on above: Performed By: #### U A, UAMICAO ####[address] [place], [place] [address] Urobilinogen (U) [Mass/Vol] Negative Normal Negative [facility] Comment on above: Performed By: #### U A UAMICAO ####[facility] [place], [place] [address] .Auto Diffon 01-20-2024 Basophil, Absolute 0.0 10 3/mcL Normal 0.0-0.2 [facility] Comment on above: Performed By: #### C MP, TROPHS, LIP, CBC, GFR, MDW, MG, ADIFF, ANEU ####[facility] [place], [place] [address] Basophils/100 WBC (Bld) 0.2 % Normal 0.0-2.5 A [facility] Comment on above: Performed By: #### C MP, TROPHS, LIP, CBC, GFR, MDW, MG, ADIFF, ANEU ####[facility] [place], [place] [address] Eosinophil, Absolute 0.0 10 3/mcL Normal 0.0-0.7 [facility] Comment on above: Performed By: #### C MP, TROPHS, LIP, CBC, GFR, MDW, MG, ADIFF, ANEU ####[facility] [place], [place] [address] Eosinophils/100 WBC (Bld) 0.1 % Normal 0.0-7.0 [facility] Comment on above: Performed By: #### C MP, TROPHS, LIP, CBC, GFR, MDW, MG, ADIFF, ANEU ####[facility] [place], [place] [address] Lymphocyte, Absolute 0.6 10 3/mcL Low 0.9-4.3 [facility] Comment on above: Performed By: #### C MP, TROPHS, LIP, CBC, GFR, MDW, MG, ADIFF, ANEU ####[address] [place], [place] [address] Lymphocytes/100 WBC (Bld) 3.3 % Low 20.0-40.0 [facility] Comment on above: Performed By: #### C MP, TROPHS, LIP, CBC, GFR, MDW, MG, ADIFF, ANEU ####[address] [place], [place] [address] Monocyte, Absolute 0.7 10 3/mcL Normal 0.1-1.4 [facility] Comment on above: Performed By: #### C MP, TROPHS, LIP, CBC, GFR, MDW, MG, ADIFF, ANEU ####[address] [address] Monocytes/100 WBC (Bld) 4.1 % Normal 2.0-13.0 [facility] Comment on above: Performed By: #### C MP, TROPHS, LIP, CBC, GFR, MDW, MG, ADIFF, ANEU ####[address] [place], [place] [address] Neutrophils/100 WBC (Bld) 92.3 % High 50.0-75.0 [facility] Comment on above: Performed By: #### C MP, TROPHS, LIP, CBC, GFR, MDW, MG, ADIFF, ANEU ####[address] [address] .GFRon 01-20-2024 GFR 91 ml/min/1.73sqm Normal [facility] Comment on above: Result Comment: GFR Population [...] LIP, CBC, GFR, MDW, MG, ADIFF, ANEU ####[address] [place], [place] [address] GFR Non- 75 ml/min/1.73sqm Normal [facility] Comment on above: Result Comment: GFR Population [...] LIP, CBC, GFR, MDW, MG, ADIFF, ANEU ####[address] [place], [place] [address] .MDWon 01-20-2024 Monocyte Distribution Width 20.42 High 0.00-20.00 [facility] Comment on above: Result Comment: For adults in ED, MDW>20.0 may be associated with a higher risk of sepsis during the first 12hrs of hospital admission The predictive value of MDW for identifying sepsis in patients with hematological abnormalities has not been established Performed By: #### C MP, TROPHS, LIP, CBC, GFR, MDW, MG, ADIFF, ANEU ####[address] [place], [place] [address] .NEUABSon 01-20-2024 Neutrophil, Absolute 16.1 10 3/mcL High 2.3-8.1 A [facility] Comment on above: Performed By: #### C MP, TROPHS, LIP, CBC, GFR, MDW, MG, ADIFF, ANEU ####[address] [address] CBCon 01-20-2024 Erythrocyte distribution width (RBC) [Ratio] 16.8 % High 11.5-15.5 [facility] Comment on above: Performed By: #### C MP, TROPHS, LIP, CBC, GFR, MDW, MG, ADIFF, ANEU ####Shashank [address] [address] Hematocrit (Bld) [Volume fraction] 38.3 % Normal 34.0-46.0 [facility] Comment on above: Performed By: #### C MP, TROPHS, LIP, CBC, GFR, MDW, MG, ADIFF, ANEU ####[place] [address] Hgb 12.1 G/dL Normal 12.0-16.0 [facility] Comment on above: Performed By: #### C MP, TROPHS, LIP, CBC, GFR, MDW, MG, ADIFF, ANEU ####[address] [address] MCH (RBC) [Entitic mass] 26.8 pg Low 27.0-33.0 [facility] Comment on above: Performed By: #### C MP, TROPHS, LIP, CBC, GFR, MDW, MG, ADIFF, ANEU ####[address] [address] MCHC 31.6 G/dL Low 32.0-36.0 [facility] Comment on above: Performed By: #### C MP, TROPHS, LIP, CBC, GFR, MDW, MG, ADIFF, ANEU ####Shashank [place] [id number] MCV (RBC) [Entitic vol] 84.9 fL Normal 80.0-99.0 [facility] Comment on above: Performed By: #### C MP, TROPHS, LIP, CBC, GFR, MDW, MG, ADIFF, ANEU ####Shashank [address] [place], [place] [address] Platelet 465 10 3/mcL High 150-450 [facility] Comment on above: Performed By: #### C MP, TROPHS, LIP, CBC, GFR, MDW, MG, ADIFF, ANEU ####Shashank [address] [place], [place] [address] Platelet mean volume (Bld) [Entitic vol] 7.9 fL Normal 6.6-10.5 [facility] Comment on above: Performed By: #### C MP, TROPHS, LIP, CBC, GFR, MDW, MG, ADIFF, ANEU ####Shashank [address] [place], [place] [address] RBC 4.51 10 6/mcL Normal 4.10-5.30 [facility] Comment on above: Performed By: #### C MP, TROPHS, LIP, CBC, GFR, MDW, MG, ADIFF, ANEU ####Shashank [address] [place], [place] [address] WBC 17.5 10 3/mcL High 4.5-10.8 [facility] Comment on above: Performed By: #### C MP, TROPHS, LIP, CBC, GFR, MDW, MG, ADIFF, ANEU ####Shashank [address] [place], [place] [address] CMPon 01-20-2024 Albumin Level 3.5 G/dL Normal 3.4-4.8 [facility] Comment on above: Order Comment: 01/19 21:34:04 EST hemolyzed; called to Jacqueline. EH Performed By: #### C MP, TROPHS, LIP, CBC, GFR, MDW, MG, ADIFF, ANEU ####Shashank [address] [place], [place] [address] Albumin/Globulin [Mass ratio] 1.3 {ratio} Normal 1.1-2.5 [facility] Comment on above: Order Comment: 01/19 21:34:04 EST hemolyzed; called to Jacqueline. EH Performed By: #### C MP, TROPHS, LIP, CBC, GFR, MDW, MG, ADIFF, ANEU ####Shashank [address] [place], [place] [address] ALP [Catalytic activity/Vol] 78 U/L Normal 40-135 [facility] Comment on above: Order Comment: 01/19 21:34:04 EST hemolyzed; called to Jacqueline. EH Performed By: #### C MP, TROPHS, LIP, CBC, GFR, MDW, MG, ADIFF, ANEU ####Shashank [address] [place], [place] [address] ALT [Catalytic activity/Vol] 20 U/L Normal 14-59 [facility] Comment on above: Order Comment: 01/19 21:34:04 EST hemolyzed; called to Jacqueline. EH Performed By: #### C MP, TROPHS, LIP, CBC, GFR, MDW, MG, ADIFF, ANEU ####[place] [address] [place], [place] [address] AST [Catalytic activity/Vol] 14 U/L Normal 10-40 [facility] Comment on above: Order Comment: 01/19 21:34:04 EST hemolyzed; called to Jacqueline. EH Performed By: #### C MP, TROPHS, LIP, CBC, GFR, MDW, MG, ADIFF, ANEU ####[facility] [place], [place] [address] Bili Total 0.8 mg/dL Normal 0.2-1.0 [facility] Comment on above: Order Comment: 01/19 21:34:04 EST hemolyzed; called to Jacqueline. EH Result Comment: Use of this assay is not recommended for patients undergoing treatment with eltrombopag due to the potential for falsely elevated results. Performed By: #### C MP, TROPHS, LIP, CBC, GFR, MDW, MG, ADIFF, ANEU ####Shashank [address] [place], [place] [address] BUN/Creatinine Ratio 19 ratio Normal 7-27 [facility] Comment on above: Order Comment: 01/19 21:34:04 EST hemolyzed; called to Jacqueline. EH Performed By: #### C MP, TROPHS, LIP, CBC, GFR, MDW, MG, ADIFF, ANEU ####Shashank [address] [place], [place] [address] Calcium [Mass/Vol] 9.2 mg/dL Normal 8.4-10.2 [facility] Comment on above: Order Comment: 01/19 21:34:04 EST hemolyzed; called to Jacqueline. EH Performed By: #### C MP, TROPHS, LIP, CBC, GFR, MDW, MG, ADIFF, ANEU ####Shashank [address] [place], [place] [address] Chloride [Moles/Vol] 106 mmol/L Normal 98-107 [facility] Comment on above: Order Comment: 01/19 21:34:04 EST hemolyzed; called to Jacqueline. EH Performed By: #### C MP, TROPHS, LIP, CBC, GFR, MDW, MG, ADIFF, ANEU ####Shashank [address] [place], [place] [address] CO2 [Moles/Vol] 27 mmol/L Normal 23-31 [facility] Comment on above: Order Comment: 01/19 21:34:04 EST hemolyzed; called to Jacqueline. EH Performed By: #### C MP, TROPHS, LIP, CBC, GFR, MDW, MG, ADIFF, ANEU ####Shashank [address] [place], [place] [address] Creatinine [Mass/Vol] 0.75 mg/dL Normal 0.55-1.02 [facility] Comment on above: Order Comment: 01/19 21:34:04 EST hemolyzed; called to Jacqueline. EH Result Comment: Test ing performed on Siemens Dimension EXL analyzer using a modified kinetic Britany technique. Performed By: #### C MP, TROPHS, LIP, CBC, GFR, MDW, MG, ADIFF, ANEU ####Shashank [address] [place], [place] [address] Electrolyte Balance 10.0 mEq/L Normal 4.0-15.[address] [facility] Comment on above: Order Comment: 01/19 21:34:04 EST hemolyzed; called to Jacqueline. EH Performed By: #### C MP, TROPHS, LIP, CBC, GFR, MDW, MG, ADIFF, ANEU ####Shashank [address] [place], [place] [address] Globulin 2.7 G/dL Normal [facility] Comment on above: Order Comment: 01/19 21:34:04 EST hemolyzed; called to Jacqueline. EH Performed By: #### C MP, TROPHS, LIP, CBC, GFR, MDW, MG, ADIFF, ANEU ####Shashank [address] [place], [place] [address] Glucose [Mass/Vol] 191 mg/dL High 83-110 [facility] Comment on above: Order Comment: 01/19 21:34:04 EST hemolyzed; called to Jacqueline. EH Performed By: #### C MP, TROPHS, LIP, CBC, GFR, MDW, MG, ADIFF, ANEU ####Shashank [address] [place], [place] [address] Potassium [Moles/Vol] 4.0 mmol/L Normal 3.5-5.1 [facility] Comment on above: Order Comment: 01/19 21:34:04 EST hemolyzed; called to Jacqueline. EH Performed By: #### C MP, TROPHS, LIP, CBC, GFR, MDW, MG, ADIFF, ANEU ####Shashank [address] [place], [place] [address] Sodium [Moles/Vol] 143 mmol/L Normal 136-145 [facility] Comment on above: Order Comment: 01/19 21:34:04 EST hemolyzed; called to Jacqueline. EH Performed By: #### C MP, TROPHS, LIP, CBC, GFR, MDW, MG, ADIFF, ANEU ####Shashank [address] [place], [place] [address] Total Protein 6.2 G/dL Low 6.4-8.2 [facility] Comment on above: Order Comment: 01/19 21:34:04 EST hemolyzed; called to Jacqueline. EH Performed By: #### C MP, TROPHS, LIP, CBC, GFR, MDW, MG, ADIFF, ANEU ####[facility] [place], [place] [address] Urea nitrogen [Mass/Vol] 14 mg/dL Normal 7-18 [facility] Comment on above: Order Comment: 01/19 21:34:04 EST hemolyzed; called to Jacqueline. EH Performed By: #### C MP, TROPHS, LIP, CBC, GFR, MDW, MG, ADIFF, ANEU ####Shashank [address] [place], [place] [address] CT ANGIOGRAPHY HEAD W/ CONTR Igor 01-20-2024 [...] 01/20/2024 11:16:50 PM Ordering Provider: SHAWN LEE [facility] CT ANGIOGRAPHY NECK W/CONTRA Armandon 01-20-2024 CT [...] 01/20/2024 11:16:50 PM Ordering Provider: SHAWN LEE [facility] CT HEAD OR BRAIN W/O CONTRAS Ton [...] 01/20/2024 10:13:56 PM Ordering Provider: SHAWN LEE [facility] LABORATORYOrdered By: SYSTEM SYSTEM on 01-20-2024 Albumin [...] calculated value from Hemoglobin A1C and is technical services representative of the average blood glucose level [...] ng/L Male: 0-76 ng/L Testing performed on KakKstati using a homogeneous sandwich chemiluminescent immunoassay based on Carbon Ads technology. WBC (Bld) [#/Vol] 17.5 103/mcL High 4.5 - 10.8 10^3/mcL AO Workflow SS LIPon 01-20-2024 Lipase Level 27 U/L Normal 16-77 [facility] Comment on above: Performed By: #### C MP, TROPHS, LIP, CBC, GFR, MDW, MG, ADIFF, ANEU ####[place] [address] MGon 01-20-2024 Magnesium [Mass/Vol] 1.7 mg/dL Low 1.8-2.4 [facility] Comment on above: Performed By: #### C MP, TROPHS, LIP, CBC, GFR, MDW, MG, ADIFF, ANEU ####[facility] [place], [place] [address] TROPHSon 01-20-2024 High Sensitivity Troponin I 4 ng/L Normal 0-51 [facility] Comment on above: Result Comment: High Sensitive Troponin I Reference Ranges: Female: 0-51 ng/L Male: 0-76 ng/L Testing performed on Kak[employer]stati using a homogeneous sandwich chemiluminescent immunoassay based on Carbon Ads technology. Performed By: #### C MP, TROPHS, LIP, CBC, GFR, MDW, MG, ADIFF, ANEU ####[facility] [place], [place] [address] XR CHEST 1 VIEWon 01-20-2024 XR CHEST [...] 01/20/2024 9:52:42 PM Ordering Provider: SHAWN Ambriz [facility] CNNURSEon 12-27-2023 CNNURSE Nurse Visit (FAMPWS) BRITNEY CANADA ([id number]) 1945 F Date Time Provider Department 12/27/23 1:15 PM [place] NURSE JOE During your visit today, we [...] Encounter Status:Closed by AGUEDA [facility] Nurse Visit (FAMPWS) BRITNEY CANADA ([id number]) 1945 F Date Time Provider Department 11/29/23 1:15 PM [place] NURSE FAMPWS During your visit today, we [...] Encounter Status:Closed by AGUEDA SABILLON on 11/29/23 [facility] 11-01-2023 [facility] Nurse Visit (FAMPWS) BRITNEY CANADA ([id number]) 1945 F Date Time Provider Department 11/01/23 1:15 PM [place] NURSE FAMPWS During your visit today, we [...] Encounter Status:Closed by AGUEDA SABILLON on 11/01/23 [facility] CNOVon 10-27-2023 CNOV Office Visit (INTMWS ) MIGUELBRITNEY REBOLLAR ([id number]) 1945 F Date Time Provider Department 10/27/23 10:00 AM ASTRID MUSE INTMWS During your visit today, we recorded the following information about you: Pulse Respiration Blood pressure Weight 60/minute 16/minute 124/68 84.4 kg Astrid Muse APRN.ELECTRONIC COURT RECORDER 10/27/2023 11:10 AM Signed CC: Patient presents [...] cholesterol most of the time. Goes to [facility] yearly for routine exam. Last [...] Screening Neve (more content not included)... Normal [facility] Basic metabolic 2000 panelon 10-26-2023 Anion gap [Moles/Vol] 10 mmol/L Normal 8-15 [facility] Comment on above: Order Comment: Speci men Type: BLOOD SPECIMENOrdering Facility: [facility] Address: [address] [place] [address] Performed By: #### 2 4321-2 ####[facility] MILLTOWNCLIA [id number] [place] [address] [place] Calcium [Mass/Vol] 9.7 mg/dL Normal 8.5-10.2 [facility] Comment on above: Order Comment: Speci men Type: BLOOD SPECIMENOrdering Facility: [facility] Address: [address] [place] [address] Performed By: #### 2 4321-2 ####[facility] MILLTOWNCLIA [id number] [place] [address] [place] Chloride [Moles/Vol] 104 mmol/L Normal 98-107 [facility] Comment on above: Order Comment: Speci men Type: BLOOD SPECIMENOrdering Facility: [facility] Address: [address] [place] [address] Performed By: #### 2 4321-2 ####[facility] SUKHJINDER MILLTOWNCLIA [id number] [place] [address] [place] CO2 [Moles/Vol] 24 mmol/L Normal 22-30 [facility] Comment on above: Order Comment: Speci men Type: BLOOD SPECIMENOrdering Facility: [facility] Address: [address] [place] [address] Performed By: #### 2 4321-2 ####[facility] MILLTOWNCLIA [id number] [place] [address] [place] Creatinine [Mass/Vol] 0.62 mg/dL Normal 0.58-0.96 [facility] Comment on above: Order Comment: Kamla clark Type: BLOOD SPECIMENOrdering Facility: [facility] Address: [address] [place] [address] Performed By: #### 2 4321-2 ####[facility] [id number] [place] [address] [place] Creatinine and Glomerular filtration rate.predicted panel (S/P/Bld) 92 mL/min/1.73m??? Normal >=60 [facility] Comment on above: Order Comment: Kamla clark Type: BLOOD SPECIMENOrdering Facility: [facility] Address: [address] [place] [address] Result Comment: Shakira mated Glomerular Filtration Rate [...] actual GFR. Performed By: #### 2 4321-2 ####[facility] [id number] [place] [address] [place] Glucose [Mass/Vol] 140 mg/dL High 74-99 [facility] Comment on above: Order Comment: Kamla clark Type: BLOOD SPECIMENOrdering Facility: [facility] Address: [address] [place] [address] Result Comment: The [place] Diabetes Association (ADA) provides guidance for cutoff [...] Standards of Medical Care in Diabetes 2016, [place] Diabetes Association. Diabetes Care. 2016.39(Suppl 1). Performed By: #### 2 4321-2 ####[facility] [id number] [place] [address] [place] Potassium [Moles/Vol] 4.4 mmol/L Normal 3.7-5.1 [facility] Comment on above: Order Comment: Speci men Type: BLOOD SPECIMENOrdering Facility: [facility] Address: [address] [place] [address] Performed By: #### 2 4321-2 ####[facility] [id number] [place] [address] [place] Sodium [Moles/Vol] 138 mmol/L Normal 136-144 [facility] Comment on above: Order Comment: Speci men Type: BLOOD SPECIMENOrdering Facility: [facility] Address: [address] [place] [address] Performed By: #### 2 4321-2 ####[facility] [id number] [place] [address] [place] Urea nitrogen [Mass/Vol] 14 mg/dL Normal 7-21 [facility] Comment on above: Order Comment: Speci men Type: BLOOD SPECIMENOrdering Facility: [facility] Address: [address] [place] [address] Performed By: #### 2 4321-2 ####[facility] [id number] [place] [address] [place] CBC panel Auto (Bld)on 10-25 Erythrocyte distribution width (RBC) [Ratio] 15.5 % High 11.5-15.0 [facility] Comment on above: Order Comment: Speci men Type: BLOOD SPECIMENOrdering Facility: [facility] Address: [address] [place] [address] Performed By: #### 5 8410-2 ####[facility] [place] [id number] [place] [address] [place] Hematocrit (Bld) [Volume fraction] 36.6 % Normal 36.0-46.0 [facility] Comment on above: Order Comment: Speci men Type: BLOOD SPECIMENOrdering Facility: [facility] Address: [address] [place] [address] Performed By: #### 5 8410-2 ####[facility] ERNCLIA [id number] [place] [address] [place] Hemoglobin (Bld) [Mass/Vol] 11.4 g/dL Low 11.5-15.5 [facility] Comment on above: Order Comment: Speci men Type: BLOOD SPECIMENOrdering Facility: [facility] Address: [address] [place] [address] Performed By: #### 5 8410-2 ####[facility] ERNCA [id number] [place] [address] [place] MCH (RBC) [Entitic mass] 26.5 pg Normal 26.0-34.0 [facility] Comment on above: Order Comment: Speci men Type: BLOOD SPECIMENOrdering Facility: [facility] Address: [address] [place] [address] Performed By: #### 5 8410-2 ####[facility] ERNCLIA [id number] [place] [address] [place] MCHC (RBC) [Mass/Vol] 31.1 g/dL Normal 30.5-36.0 [facility] Comment on above: Order Comment: Speci men Type: BLOOD SPECIMENOrdering Facility: [facility] Address: [address] [place] [address] Performed By: #### 5 8410-2 ####[facility] ERNCLIA [id number] [place] [address] [place] MCV (RBC) [Entitic vol] 85.1 fL Normal 80.0-100.[address] [facility] Comment on above: Order Comment: Speci men Type: BLOOD SPECIMENOrdering Facility: [facility] Address: [address] [place] [address] Performed By: #### 5 8410-2 ####[facility] [id number] [place] [address] [place] Nucleated RBC (Bld) [#/Vol] 10*3/uL Normal <0.01 [facility] Comment on above: Order Comment: Speci men Type: BLOOD SPECIMENOrdering Facility: [facility] Address: [address] [place] [address] Performed By: #### 5 8410-2 ####[facility] ERNCLIA [id number] [place] [address] [place] Platelet mean volume (Bld) [Entitic vol] 9.4 fL Normal 9.0-12.7 [facility] Comment on above: Order Comment: Speci men Type: BLOOD SPECIMENOrdering Facility: [facility] Address: [address] [place] [address] Performed By: #### 5 8410-2 ####[facility] [id number] [place] [address] [place] Platelets (Bld) [#/Vol] 481 10*3/uL High 150-400 [facility] Comment on above: Order Comment: Speci men Type: BLOOD SPECIMENOrdering Facility: [facility] Address: [address] [place] [address] Performed By: #### 5 8410-2 ####[facility] [id number] [place] [address] [place] RBC (Bld) [#/Vol] 4.30 10*6/uL Normal 3.90-5.20 [facility] Comment on above: Order Comment: Speci men Type: BLOOD SPECIMENOrdering Facility: [facility] Address: [address] [place] [address] Performed By: #### 5 8410-2 ####[facility] [id number] [place] [address] [place] WBC (Bld) [#/Vol] 7.84 10*3/uL Normal 3.70-11.00 [facility] Comment on above: Order Comment: Speci men Type: BLOOD SPECIMENOrdering Facility: [facility] Address: [address] [place] [address] Performed By: #### 5 8410-2 ####[facility] [id number] [place] [address] [place] HbA1c (Bld)on 10-26-2023 Average glucose Estimated from glycated hemoglobin (Bld) [Mass/Vol] 174 mg/dL Normal [facility] Comment on above: Order Comment: Speci men Type: BLOOD SPECIMENOrdering Facility: [facility] Address: [address] [place] [address] Result Comment: eAG: (Estimated average glucose) is a calculated value from HgbA1c and is technical services representative of the average blood glucose level in the last 2-3 month period. Performed By: #### 5 5454-3 ####[facility] LABCLIA [id number] [place] [address] [place] HbA1c (Bld) [Mass fraction] 7.7 % High 4.3-5.6 [facility] Comment on above: Order Comment: Speci men Type: BLOOD SPECIMENOrdering Facility: [facility] Address: [address] [place] [address] Result Comment: [place] Diabetes Association guidelines indicate that patients with HgbA1c in the range 5.7-6.4% are at increased risk for development of diabetes, and intervention by lifestyle modification may be beneficial. HgbA1c greater or equal to 6.5% is considered diagnostic of diabetes. Performed By: #### 5 5454-3 ####[facility] LABCLIA [id number] [place] [address] [place] TSH SerPl-aCncon 10-26-2023 TSH Qn 1.770 m[IU]/L Normal 0.270-4.200 [facility] Comment on above: Order Comment: Speci men Type: BLOOD SPECIMENOrdering Facility: [facility] Address: [address] [place] [address] Performed By: #### 3 016-3 ####[facility] LABCLIA [id number] [address] OF [place] Angela [facility] BRITNEY [place] ([id number]) 1945 F Date Time Provider Department 10/22/23 [...] [E03.9] Order(s):COMPLETE BLOOD COUNT [SQCBC] Order #: [id number] FUTURE BASIC METABOLIC PANEL [SQBMP] Order #: [id number] FUTURE HEMOGLOBIN A1C [YTXJZ0L] Order #: [id number] FUTURE THYROID STIMULATING HORMONE [SQTSH] Order #: [id number] FUTURE Prescriptions as of 10/25/2023 - empagliflozin [...] Encounter Status:Closed by CHANTALE ALVES on 10/25/23 [facility] Nurse Visit (FAMPWS) BRITNEY CANADA ([id number]) 1945 F Date Time Provider Department 10/04/23 1:15 PM [place] NURSE FAMPWS During your visit today, we [...] Status:Closed by AGUEDA SABILLON on 10/04/23 Normal [facility] CBC W Auto Differential pane l (Bld)on 09-03-2022 Basophils (Bld) [#/Vol] 0.07 10*3/uL <0.11 k/uL [facility] Basophils/100 WBC (Bld) 0.6 % [facility] Differential cell count method Nom (Bld) Auto [facility] Eosinophils (Bld) [#/Vol] 0.05 10*3/uL <0.46 k/uL [facility] Eosinophils/100 WBC (Bld) 0.4 % [facility] Erythrocyte distribution width (RBC) [Ratio] 14.0 % 11.5 - 15.0 % [facility] Hematocrit (Bld) [Volume fraction] 41.5 % 36.0 - 46.0 % [facility] Hemoglobin (Bld) [Mass/Vol] 12.9 g/dL 11.5 - 15.5 g/dL [facility] Immature granulocytes (Bld) [#/Vol] 0.04 10*3/uL <0.10 k/uL [facility] Immature granulocytes/100 WBC (Bld) 0.3 % [facility] Lymphocytes (Bld) [#/Vol] 3.06 10*3/uL 1.00 - 4.00 k/uL [facility] Lymphocytes/100 WBC (Bld) 24.7 % [facility] MCH (RBC) [Entitic mass] 28.7 pg 26.0 - 34.0 pg [facility] MCHC (RBC) [Mass/Vol] 31.1 g/dL 30.5 - 36.0 g/dL [facility] MCV (RBC) [Entitic vol] 92.2 fL 80.0 - 100.0 fL [facility] Monocytes (Bld) [#/Vol] 0.82 10*3/uL <0.87 k/uL [facility] Monocytes/100 WBC (Bld) 6.6 % [facility] Neutrophils (Bld) [#/Vol] 8.37 10*3/uL High 1.45 - 7.50 k/uL [facility] Neutrophils/100 WBC (Bld) 67.4 % [facility] Nucleated RBC (Bld) [#/Vol] <0.01 k/uL [facility] Nucleated RBC/100 WBC (Bld) [Ratio] 0.0 /100 WBC [facility] Platelet mean volume (Bld) [Entitic vol] 10.5 fL 9.0 - 12.7 fL [facility] Platelets (Bld) [#/Vol] 519 10*3/uL High 150 - 400 k/uL [facility] RBC (Bld) [#/Vol] 4.50 10*6/uL 3.90 - 5.2 0 m/uL [facility] WBC (Bld) [#/Vol] 12.41 10*3/uL High 3.70 - 11 .00 k/uL [facility] Absolute lymphocyte countOrd ered By: Dr. Patiño on 08-28-2022 Lymphocytes Auto (Unsp spec) [#/Vol] 1.81 10*3/uL 0.83-4.51 [facility] Basophil percentageOrdered B y: Dr. Patiño on 08-28-2022 Basophils/100 WBC (Bld) 0.4 % 0-1 [facility] Bilirubin [Mass/Vol] 0.80 mg/dL 0.20-1.00 [facility] Comment on above: For patients on eltr ombopag therapy, use of Dimension [place] TBIL is not recommended. Chloride [Moles/Vol] 104 mmol/L 98-107 [facility] Eosinophils/100 WBC (Bld) 0.7 % 0-5 [facility] Glucose [Mass/Vol] 203 mg/dL 74-106 [facility] Comment on above: Glucose result great er than or equal to 200 mg/dLsuggests DIABETES MELLITUS per A.D.A. criteria. Neutrophils (Bld) [#/Vol] 7.2 10*3/uL 2.0-7.7 [facility] Neutrophils/100 WBC (Bld) 73.5 % 47-70 [facility] Potassium [Moles/Vol] 3.7 mmol/L 3.5-5.1 [facility] Protein [Mass/Vol] 6.6 g/dL 6.4-8.2 [facility] Sodium [Moles/Vol] 136 mmol/L 136-145 [facility] WBC (Bld) [#/Vol] 9.8 10*3/uL 4.4-11.0 [facility] Blood erythrocytes count (nu mber/volume)Ordered By: Dr. Patiño on 08-28-2022 RBC (Bld) [#/Vol] 4.06 10*6/uL 4.2-5.4 [facility] Blood hemoglobin measurement (mass/volume)Ordered By: Dr. Patiño on 08-28-2022 Hemoglobin (Bld) [Mass/Vol] 11.8 g/dL 12.0-15.0 [facility] Blood lymphocytes/100 leukoc ytesOrdered By: Dr. Patiño on 08-28-2022 Lymphocytes/100 WBC (Bld) 18.5 % 19-41 [facility] Blood monocytes/100 leukocyt esOrdered By: Dr. Patiño on 08-28-2022 Monocytes/100 WBC (Bld) 6.5 % 0-10 [facility] Blood platelet mean volumeOr dered By: Dr. Patiño on 08-28-2022 Platelet mean volume (Bld) [Entitic vol] 9.8 fL 6.2-12.0 [facility] Determination of erythrocyte mean corpuscular volume (MCV)Ordered By: Dr. Patiño on 08-28-2022 MCV (RBC) [Entitic vol] 88.9 fL 81-99 [facility] Glucose Glucometer (BldC) [M ass/Vol]Ordered By: Dr. Gregg on 08-28-2022 Glucose [Mass/Vol] 245 mg/dL 74-106 [facility] Comment on above: MANAGEMENT OF PATIEN T CARE PER NURSING PROTOCOL Hematocrit Auto (Bld) [Volum e fraction]Ordered By: Dr. Patiño on 08-28-2022 Hematocrit (Bld) [Volume fraction] 36.1 % 37-47 [facility] Laboratory - Chemistry and C hemistry - challengeOrdered By: Dr. Patiño on 08-28-2022 ALP [Catalytic activity/Vol] 84 U/L 45-117 [facility] ALT [Catalytic activity/Vol] 21 U/L 13-56 [facility] CO2 [Moles/Vol] 25.0 mmol/L 21.0-32.0 [facility] Globulin (S) [Mass/Vol] 3.7 g/dL 2.2-4.2 [facility] Urea nitrogen/Creatinine [Mass ratio] 21.9 mg/mg 10-20 [facility] Laboratory - Hematology and Cell countsOrdered By: Dr. Patiño on 08-28-2022 Erythrocyte distribution width (RBC) [Entitic vol] 44.4 fL 35.1-43.9 [facility] Erythrocyte distribution width (RBC) [Ratio] 13.6 % 11.6-14.6 [facility] Immature granulocytes/100 WBC (Bld) 0.400 % 0.0-0.9 [facility] Comment on above: IG% - Immature Granu locytes (promyelocytes, myelocytes and metamyelocytes) > 1% indicates that a LEFT SHIFT is Present. MCH (RBC) [Entitic mass] 29.1 pg 27.0-32.0 [facility] Nucleated RBC/100 WBC (Bld) [Ratio] 0 % 0-5 [facility] MCHC Auto (RBC) [Mass/Vol]Or dered By: Dr. Patiño on 08-28-2022 MCHC (RBC) [Mass/Vol] 32.7 g/dL 32-36 [facility] No Panel InformationOrdered By: Dr. Patiño on 08-28-2022 Estimated Creatinine Clearance Calc 38.44 ml/min [facility] Estimated GFR (MDRD) Amer 108 mL/min >60 [facility] Comment on above: GFR Calc Estimated GFR (MDRD) Non-Af Amer 89 mL/min >60 [facility] Comment on above: Non- GFR Calc Platelets bldOrdered By: Dr. Patiño on 08-28-2022 Platelets (Bld) [#/Vol] 431 10*3/uL 150-450 [facility] Serum or plasma albumin ciera urement (mass/volume)Ordered By: Dr. Patiño on 08-28-2022 Albumin [Mass/Vol] 2.9 g/dL 3.2-5.0 [facility] Serum or plasma albumin/glob ulin mass ratioOrdered By: Dr. Patiño on 08-28-2022 Albumin/Globulin [Mass ratio] 0.8 {ratio} 0.9-2.4 [facility] Serum or plasma calcium ciera urement (mass/volume)Ordered By: Dr. Patiño on 08-28-2022 Calcium [Mass/Vol] 9.2 mg/dL 8.5-10.1 [facility] Serum or plasma creatinine m easurement (mass/volume)Ordered By: Dr. Patiño on 08-28-2022 Creatinine [Mass/Vol] 0.68 mg/dL 0.55-1.02 [facility] Comment on above: The validity of the calculated GFR & GFRAA in patients over 70 years has not been determined. Clinical correlation is essential. Serum or plasma urea nitroge n measurement (mass/volume)Ordered By: Dr. Patiño on 08-28-2022 Urea nitrogen [Mass/Vol] 15 mg/dL 7-18 [facility] Thin prep Papanicolaou smear with manual screeningOrdered By: Dr. Patiño on 08-28-2022 Thin prep Papanicolaou smear with manual screening 19 U/L 15-37 [facility] Thin prep Papanicolaou smear with manual screening 7 5-15 [facility] Basophil percentageOrdered B y: Dr. Patiño on 08-26-2022 Cholesterol [Mass/Vol] 112 mg/dL <200 [facility] Comment on above: <200 mg/dL Desirable 200-240 mg/dL Borderline >240 mg/dL High Risk Triglyceride [Mass/Vol] 112 mg/dL <199 [facility] Comment on above: The drugs N-Acetylcy steine and Metamizole may falsely depress this assay.Serum Triglycerides Reference Interval Normal <150 mg/dL Borderline high 150 - 199 mg/dL High 200 - 499 mg/dL Very High > or = 500 mg/dL Basophil percentage 10-25 SEEN /hpf 0-5 [facility] Bilirubin Test strip Ql (U)O rdered By: Dr. Patiño on 08-26-2022 Bilirubin Ql (U) Negative Negative [facility] Culture, urineOrdered By: Ivet Patiño on 08-26-2022 Bacteria identified Cx Nom (U) Escherichia coli [facility] Ketones Test strip Ql (U)Ord ered By: Dr. Patiño on 08-26-2022 Ketones Ql (U) Negative Negative [facility] Mucus LM Ql (Urine sed)Order ed By: Dr. Patiño on 08-26-2022 Mucus Ql (Urine sed) 0 SEEN /hpf [facility] Nitrite Test strip Ql (U)Ord ered By: Dr. Patiño on 08-26-2022 Nitrite Ql (U) Positive Negative [facility] No Panel InformationOrdered By: Dr. Patiño on 08-26-2022 Thyroid Stimulating Hormone (TSH) 1.47 uIU/mL 0.358-3.74 [facility] Protein Test strip Ql (U)Ord ered By: Dr. Patiño on 08-26-2022 Protein Ql (U) 30 mg/dl Negative [facility] Serum or plasma cholesterol in HDL measurement (mass/volume)Ordered By: Dr. Patiño on 08-26-2022 Cholesterol in HDL [Mass/Vol] 37 mg/dL >40 [facility] Comment on above: The drugs N-Acetylcy steine and Metamizole may falsely depress this assay. Reference Range HDL <40 mg/dL Low HDL Cholesterol HDL >or= 60 mg/dL High HDL Cholesterol Serum or plasma cholesterol in VLDL measurement (mass/volume)Ordered By: Dr. Patiño on 08-26-2022 Cholesterol in VLDL [Mass/Vol] 22 mg/dL 5-40 [facility] Serum or plasma low density lipoprotein (LDL) cholesterol measurement (mass/volume)Ordered By: Dr. Patiño on 08-26-2022 Cholesterol in LDL [Mass/Vol] 53 mg/dL 0-130 [facility] Squamous epithelial cells de tection in urine sediment by light microscopyOrdered By: Dr. Patiño on 08-26-2022 Epithelial cells.squamous LM Ql (Urine sed) 0 SEEN /hpf 5-10 [facility] Urine blood detectionOrdered By: Dr. Patiño on 08-26-2022 RBC Ql (U) 10 /ul Negative [facility] RBC Ql (U) 0-5 SEEN /hpf 0-5 [facility] Urine clarityOrdered By: Dr. Patiño on 08-26-2022 Clarity (U) Clear Clear [facility] Urine color determinationOrd ered By: Dr. Patiño on 08-26-2022 Color (U) Yellow Yellow [facility] Urine glucose detectionOrder ed By: Dr. Patiño on 08-26-2022 Glucose Ql (U) 250 mg/dl Normal [facility] Urine leukocyte esterase det ection by dipstickOrdered By: Dr. Patiño on 08-26-2022 Leukocyte esterase Test strip Ql (U) 500 /ul Negative [facility] Urine pHOrdered By: Dr. Simeon gamez on 08-26-2022 pH (U) 5.0 [pH] 5.0 - 8.0 [facility] Urine sediment bacteria coun t by microscopy (number/high power field)Ordered By: Dr. Patiño on 08-26-2022 Bacteria LM.HPF (Urine sed) [#/Area] 2 /[HPF] None Seen [facility] Urine specific gravity measu rementOrdered By: Dr. Patiño on 08-26-2022 Specific gravity (U) [Rel density] 1.010 1.002-1.030 [facility] Urobilinogen Auto test strip Ql (U)Ordered By: Dr. Patiño on 08-26-2022 Urobilinogen Ql (U) Normal mg/dl Normal [facility] Absolute lymphocyte countOrd ered By: Dr. Lew on 08-25-2022 Lymphocytes Auto (Unsp spec) [#/Vol] 3.34 10*3/uL 0.83-4.51 [facility] Basophil percentageOrdered B y: Dr. Lew on 08-25-2022 Basophils/100 WBC (Bld) 0.4 % 0-1 [facility] Chloride [Moles/Vol] 101 mmol/L 98-107 [facility] Eosinophils/100 WBC (Bld) 0.2 % 0-5 [facility] Glucose [Mass/Vol] 334 mg/dL 74-106 [facility] Comment on above: Glucose result great er than or equal to 200 mg/dLsuggests DIABETES MELLITUS per A.D.A. criteria. Neutrophils (Bld) [#/Vol] 9.7 10*3/uL 2.0-7.7 [facility] Neutrophils/100 WBC (Bld) 68.9 % 47-70 [facility] Potassium [Moles/Vol] 3.9 mmol/L 3.5-5.1 [facility] Sodium [Moles/Vol] 134 mmol/L 136-145 [facility] WBC (Bld) [#/Vol] 14.1 10*3/uL 4.4-11.0 [facility] Blood erythrocytes count (nu mber/volume)Ordered By: Dr. Lew on 08-25-2022 RBC (Bld) [#/Vol] 4.35 10*6/uL 4.2-5.4 [facility] Blood hemoglobin measurement (mass/volume)Ordered By: Dr. Lew on 08-25-2022 Hemoglobin (Bld) [Mass/Vol] 12.4 g/dL 12.0-15.0 [facility] Blood lymphocytes/100 leukoc ytesOrdered By: Dr. Lew on 08-25-2022 Lymphocytes/100 WBC (Bld) 23.7 % 19-41 [facility] Blood monocytes/100 leukocyt esOrdered By: Dr. Lew on 08-25-2022 Monocytes/100 WBC (Bld) 6.2 % 0-10 [facility] Blood platelet mean volumeOr dered By: Dr. Lew on 08-25-2022 Platelet mean volume (Bld) [Entitic vol] 10.0 fL 6.2-12.0 [facility] Determination of erythrocyte mean corpuscular volume (MCV)Ordered By: Dr. Lew on 08-25-2022 MCV (RBC) [Entitic vol] 87.8 fL 81-99 [facility] Glucose Glucometer (BldC) [M ass/Vol]Ordered By: Dr. Lew on 08-25-2022 Glucose [Mass/Vol] 316 mg/dL 74-106 [facility] Comment on above: MANAGEMENT OF PATIEN T CARE PER NURSING PROTOCOL Hematocrit Auto (Bld) [Volum e fraction]Ordered By: Dr. Lew on 08-25-2022 Hematocrit (Bld) [Volume fraction] 38.2 % 37-47 [facility] INR in Blood by Coagulation assayOrdered By: Dr. Lew on 08-25-2022 INR Coag (Bld) [Relative time] 1.1 {INR} [facility] Laboratory - Chemistry and C hemistry - challengeOrdered By: Dr. Lew on 08-25-2022 CO2 [Moles/Vol] 25.0 mmol/L 21.0-32.0 [facility] Urea nitrogen/Creatinine [Mass ratio] 14.5 mg/mg 10- [facility] Laboratory - CoagulationOrde red By: Dr. Lew on 08-25-2022 aPTT Coag (Bld) [Time] 30.0 s 24.1-36.2 [facility] PT Coag (PPP) [Time] 14.4 s 11.7-14.9 [facility] Laboratory - Hematology and Cell countsOrdered By: Dr. Lew on 08-25-2022 Erythrocyte distribution width (RBC) [Entitic vol] 43.8 fL 35.1-43.9 [facility] Erythrocyte distribution width (RBC) [Ratio] 13.7 % 11.6-14.6 [facility] Immature granulocytes/100 WBC (Bld) 0.600 % 0.0-0.9 [facility] Comment on above: IG% - Immature Granu locytes (promyelocytes, myelocytes and metamyelocytes) > 1% indicates that a LEFT SHIFT is Present. MCH (RBC) [Entitic mass] 28.5 pg 27.0-32.0 [facility] Nucleated RBC/100 WBC (Bld) [Ratio] 0 % 0-5 [facility] MCHC Auto (RBC) [Mass/Vol]Or dered By: Dr. Lew on 08-25-2022 MCHC (RBC) [Mass/Vol] 32.5 g/dL 32-36 [facility] No Panel InformationOrdered By: Dr. Lew on 08-25-2022 Estimated GFR (MDRD) Amer 86 mL/min >60 [facility] Comment on above: GFR Calc Estimated GFR (MDRD) Non-Af Amer 71 mL/min >60 [facility] Comment on above: Non- GFR Calc Troponin I High Sensitivity 11 pg/mL 3.0-54.0 [facility] Comment on above: Please Note: New Soheila t Units and Gender Specific Reference Ranges. For more information see Policy Stat Procedure [place] High Sensitivity Troponin (TNIH) and attachments. Platelets bldOrdered By: Dr. Lew on 08-25-2022 Platelets (Bld) [#/Vol] 503 10*3/uL 150-450 [facility] Serum or plasma calcium ciera urement (mass/volume)Ordered By: Dr. Lew on 08-25-2022 Calcium [Mass/Vol] 9.3 mg/dL 8.5-10.1 [facility] Serum or plasma creatinine m easurement (mass/volume)Ordered By: Dr. Lew on 08-25-2022 Creatinine [Mass/Vol] 0.83 mg/dL 0.55-1.02 [facility] Comment on above: The validity of the calculated GFR & GFRAA in patients over 70 years has not been determined. Clinical correlation is essential. Serum or plasma urea nitroge n measurement (mass/volume)Ordered By: Dr. Lew on 08-25-2022 Urea nitrogen [Mass/Vol] 12 mg/dL 7-18 [facility] Thin prep Papanicolaou smear with manual screeningOrdered By: Dr. Lew on 08-25-2022 Thin prep Papanicolaou smear with manual screening 8 5-15 [facility] XR Lumbar spine 3 Viewson IMPRESSION: DEGENERATIVE CHANGE AND ALIGNMENT ABNORMALITIES DESCRIBED. REMOTE L2 FRACTURE. STABLE Community Living Coach: PSCB Transcribe Date/Time: Jul 13 2022 4:22P Dictated by : KAYLIN GALEANO MD This examination was interpreted and the report reviewed and electronically signed by: KAYLIN GALEANO MD on Jul 13 2022 4:24PM [facility] * * *Final Report* [...] scoliosis. DIVISION OF RADIOLOGY Provider, Guido seth Dewey - 07/13/2022 * * *Final Report* * [...] ALIGNMENT ABNORMALITIES DESCRIBED. REMOTE L2 FRACTURE. STABLE Community Living Coach: PSCB Transcribe Date/Time: Jul 13 2022 4:22P Dictated by : KAYLIN GALEANO MD This examination was interpreted and the report reviewed and electronically signed by: KAYLIN GALEANO MD on Jul 13 2022 4:24PM [facility] Radiology Study observation (narrative) [facility] XR Lumbar spine 3 ViewsOrder ed By: [facility] Provider on 07-13-2022 [facility] Vital Signs Date Time Vital Sign Value Performing Clinician Facility 09-06-2024 [id number] Body height 157.48 cm ASTRID OLDER LOG ROPER-C Work Phone: [facility] 09-06-2024 08:08-0400 Body mass index (BMI) [Ratio] 32.5 kg/m2 ASTRID OLDER LOG ROPER-C Work Phone: [facility] 09-06-2024 08:08-0400 Body weight 80.73 kg ASTRID OLDER LOG ROPER-C Work Phone: [facility] 09-06-2024 08:08-0400 Diastolic blood pressure 53 mm[Hg] ASTRID OLDER LOG ROPER-C Work Phone: [facility] 09-06-2024 08:08-0400 Heart rate 60 /min ASTRID OLDER LOG ROPER-C Work Phone: [facility] 09-06-2024 08:08-0400 Respiratory rate 16 /min ASTRID OLDER LOG ROPER-C Work Phone: [facility] 09-06-2024 08:08-0400 Systolic blood pressure 93 mm[Hg] ASTRID OLDER LOG ROPER-C Work Phone: [facility] 07-25-2024 08:03-0400 Body mass index (BMI) [Ratio] 32.4 kg/m2 Jones Velasquez MD Work Phone: [facility] 07-25-2024 08:03-0400 Body temperature 98.49 [degF] Jones Velasquez MD Work Phone: [facility] 07-25-2024 08:03-0400 Body weight 81.65 kg Jones Velasquez MD Work Phone: [facility] 07-25-2024 08:03-0400 Diastolic blood pressure 68 mm[Hg] Jones Velasquez MD Work Phone: [facility] 07-25-2024 08:03-0400 Heart rate 73 /min Jones Velasquez MD Work Phone: [facility] 07-25-2024 08:03-0400 SaO2% (BldA) [Mass fraction] 100 % Jones Velasquez MD Work Phone: [facility] 07-25-2024 08:03-0400 Systolic blood pressure 108 mm[Hg] Jones Velasquez MD Work Phone: [facility] 06-09-2024 10:17-0400 Body mass index (BMI) [Ratio] 32.22 kg/m2 Astrid Older DENTAL LABORATORY TECHNICIAN.ELECTRONIC [address] RECORDER Work Phone: [facility] 06-09-2024 10:17-0400 Body weight 81.19 kg Astrid Older DENTAL LABORATORY TECHNICIAN.ELECTRONIC COURT RECORDER Work Phone: [facility] 06-09-2024 10:17-0400 Diastolic blood pressure 68 mm[Hg] Astrid Older DENTAL LABORATORY TECHNICIAN.ELECTRONIC COURT RECORDER Work Phone: [facility] 06-09-2024 10:17-0400 Heart rate 64 /min Astrid Older DENTAL LABORATORY TECHNICIAN.ELECTRONIC COURT RECORDER Work Phone: [facility] 06-09-2024 10:17-0400 Respiratory rate 16 /min Astrid Older DENTAL LABORATORY TECHNICIAN.ELECTRONIC COURT RECORDER Work Phone: [facility] 06-09-2024 10:17-0400 SaO2% (BldA) [Mass fraction] 98 % Astrid Older DENTAL LABORATORY TECHNICIAN.ELECTRONIC COURT RECORDER Work Phone: [facility] 06-09-2024 10:17-0400 Systolic blood pressure 112 mm[Hg] Astrid Older DENTAL LABORATORY TECHNICIAN.ELECTRONIC COURT RECORDER Work Phone: [facility] 04-28-2024 10:31-0500 Body mass index (BMI) [Ratio] 31.86 kg/m2 Astrid Older DENTAL LABORATORY TECHNICIAN.ELECTRONIC COURT RECORDER Work Phone: [facility] 04-28-2024 10:31-0500 Body weight 80.29 kg Astrid Older DENTAL LABORATORY TECHNICIAN.ELECTRONIC COURT RECORDER Work Phone: [facility] 04-28-2024 10:31-0500 Diastolic blood pressure 68 mm[Hg] Astrid Older DENTAL LABORATORY TECHNICIAN.ELECTRONIC COURT RECORDER Work Phone: [facility] 04-28-2024 10:31-0500 Heart rate 64 /min Atsrid Older DENTAL LABORATORY TECHNICIAN.ELECTRONIC COURT RECORDER Work Phone: [facility] 04-28-2024 10:31-0500 Respiratory rate 16 /min Astrid Older DENTAL LABORATORY TECHNICIAN.ELECTRONIC COURT RECORDER Work Phone: [facility] 04-28-2024 10:31-0500 SaO2% (BldA) [Mass fraction] 97 % Astrid Older DENTAL LABORATORY TECHNICIAN.ELECTRONIC COURT RECORDER Work Phone: [facility] 04-28-2024 10:31-0500 Systolic blood pressure 122 mm[Hg] Astrid Older DENTAL LABORATORY TECHNICIAN.ELECTRONIC COURT RECORDER Work Phone: [facility] 03-20-2024 12:51-0500 Body height 158.8 cm Justin Christopher MD Work Phone: [facility] 03-20-2024 12:51-0500 Body mass index (BMI) [Ratio] 32.58 kg/m2 Justin Christopher MD Work Phone: [facility] 03-20-2024 12:51-0500 Body temperature 97.5 [degF] Justin Christopher MD Work Phone: [facility] 03-20-2024 12:51-0500 Body weight 82.1 kg Justin Christopher MD Work Phone: [facility] 03-20-2024 12:51-0500 Diastolic blood pressure 65 mm[Hg] Justin Christopher MD Work Phone: [facility] 03-20-2024 12:51-0500 Heart rate 61 /min Justin Christopher MD Work Phone: [facility] 03-20-2024 12:51-0500 SaO2% (BldA) [Mass fraction] 97 % Justin Christopher MD Work Phone: [facility] 03-20-2024 12:51-0500 Systolic blood pressure 113 mm[Hg] Justin Christopher MD Work Phone: [facility] 03-15-2024 10:08-0500 Body mass index (BMI) [Ratio] 33.29 kg/m2 Astrid Older DENTAL LABORATORY TECHNICIAN.ELECTRONIC COURT RECORDER Work Phone: [facility] 03-15-2024 10:08-0500 Body weight 82.56 kg Astrid Older DENTAL LABORATORY TECHNICIAN.ELECTRONIC COURT RECORDER Work Phone: [facility] 03-15-2024 10:08-0500 Diastolic blood pressure 74 mm[Hg] Astrid Older DENTAL LABORATORY TECHNICIAN.ELECTRONIC COURT RECORDER Work Phone: [facility] 03-15-2024 10:08-0500 Heart rate 60 /min Astrid Older DENTAL LABORATORY TECHNICIAN.ELECTRONIC COURT RECORDER Work Phone: [facility] 03-15-2024 10:08-0500 Respiratory rate 16 /min Astrid Older DENTAL LABORATORY TECHNICIAN.ELECTRONIC COURT RECORDER Work Phone: [facility] 03-15-2024 10:08-0500 SaO2% (BldA) [Mass fraction] 95 % Astrid Older DENTAL LABORATORY TECHNICIAN.ELECTRONIC COURT RECORDER Work Phone: [facility] 03-15-2024 10:08-0500 Systolic blood pressure 128 mm[Hg] Astrid Older DENTAL LABORATORY TECHNICIAN.ELECTRONIC COURT RECORDER Work Phone: [facility] 02-02-2024 12:17-0500 Body mass index (BMI) [Ratio] 33.84 kg/m2 Astrid Older DENTAL LABORATORY TECHNICIAN.ELECTRONIC COURT RECORDER Work Phone: [facility] 02-02-2024 12:17-0500 Body weight 83.92 kg Astrid Older DENTAL LABORATORY TECHNICIAN.ELECTRONIC COURT RECORDER Work Phone: [facility] 02-02-2024 12:17-0500 Diastolic blood pressure 72 mm[Hg] Astrid Older DENTAL LABORATORY TECHNICIAN.ELECTRONIC COURT RECORDER Work Phone: [facility] 02-02-2024 12:17-0500 Heart rate 56 /min Astrid Older DENTAL LABORATORY TECHNICIAN.ELECTRONIC COURT RECORDER Work Phone: [facility] 02-02-2024 12:17-0500 Respiratory rate 16 /min Astrid Older DENTAL LABORATORY TECHNICIAN.ELECTRONIC COURT RECORDER Work Phone: [facility] 02-02-2024 12:17-0500 SaO2% (BldA) [Mass fraction] 96 % Astrid Older DENTAL LABORATORY TECHNICIAN.ELECTRONIC COURT RECORDER Work Phone: [facility] 02-02-2024 12:17-0500 Systolic blood pressure 128 mm[Hg] Astrid Muse APRN.ELECTRONIC COURT RECORDER Work Phone: [facility] 01-21-2024 13:53-0500 Diastolic Blood Pressure Non-Invasive 48 mm[Hg] JUNE STORY DENTAL LABORATORY TECHNICIAN-ELECTRONIC COURT RECORDER [facility] 01-21-2024 13:53-0500 Systolic Blood Pressure Non-Invasive 104 mm[Hg] JUNE STORY DENTAL LABORATORY TECHNICIAN-ELECTRONIC COURT RECORDER [facility] 01-21-2024 13:37-0500 Body temperature 98.06 [degF] JUNE STORY DENTAL LABORATORY TECHNICIAN-ELECTRONIC COURT RECORDER [facility] 01-21-2024 13:37-0500 Diastolic Blood Pressure Non-Invasive 40 mm[Hg] JUNE STORY DENTAL LABORATORY TECHNICIAN-ELECTRONIC COURT RECORDER [facility] 01-21-2024 13:37-0500 Heart rate 66 /min JUNE STORY DENTAL LABORATORY TECHNICIAN-ELECTRONIC COURT RECORDER [facility] 01-21-2024 13:37-0500 Reason For Taking VItal Signs JUNE STORY DENTAL LABORATORY TECHNICIAN-ELECTRONIC COURT RECORDER [facility] 01-21-2024 13:37-0500 Respiratory rate 18 /min JUNE STORY DENTAL LABORATORY TECHNICIAN-ELECTRONIC COURT RECORDER [facility] 01-21-2024 13:37-0500 Systolic Blood Pressure Non-Invasive 91 mm[Hg] JUNE STORY DENTAL LABORATORY TECHNICIAN-ELECTRONIC COURT RECORDER [facility] 01-21-2024 07:41-0500 Body temperature 98.24 [degF] JUNE STORY DENTAL LABORATORY TECHNICIAN-ELECTRONIC COURT RECORDER [facility] 01-21-2024 07:41-0500 Diastolic Blood Pressure Non-Invasive 48 mm[Hg] JUNE STORY DENTAL LABORATORY TECHNICIAN-ELECTRONIC COURT RECORDER [facility] 01-21-2024 07:41-0500 Heart rate 72 /min JUNE STORY DENTAL LABORATORY TECHNICIAN-ELECTRONIC COURT RECORDER [facility] 01-21-2024 07:41-0500 Reason For Taking VItal Signs JUNE STORY DENTAL LABORATORY TECHNICIAN-ELECTRONIC COURT RECORDER [facility] 01-21-2024 07:41-0500 Respiratory rate 16 /min JUNE STORY DENTAL LABORATORY TECHNICIAN-ELECTRONIC COURT RECORDER [facility] 01-21-2024 07:41-0500 Systolic Blood Pressure Non-Invasive 110 mm[Hg] JUNE STORY DENTAL LABORATORY TECHNICIAN-ELECTRONIC COURT RECORDER [facility] 01-21-2024 06:40-0500 Body temperature 98.24 [degF] JUNE STORY DENTAL LABORATORY TECHNICIAN-ELECTRONIC COURT RECORDER [facility] 01-21-2024 06:40-0500 Heart rate 71 /min JUNE STORY DENTAL LABORATORY TECHNICIAN-ELECTRONIC COURT RECORDER [facility] 01-21-2024 06:40-0500 Respiratory rate 16 /min JUNE STORY DENTAL LABORATORY TECHNICIAN-ELECTRONIC COURT RECORDER [facility] 01-21-2024 01:45-0500 Heart rate 77 /min JUNE STORY DENTAL LABORATORY TECHNICIAN-ELECTRONIC COURT RECORDER [facility] 01-21-2024 01:17-0500 Body height 157.5 cm JUNE STORY DENTAL LABORATORY TECHNICIAN-ELECTRONIC COURT RECORDER [facility] 01-21-2024 01:17-0500 Body weight 82.5 kg JUNE STORY DENTAL LABORATORY TECHNICIAN-ELECTRONIC COURT RECORDER [facility] 01-21-2024 01:17-0500 Body weight 33.26 kg/m2 JUNE STORY DENTAL LABORATORY TECHNICIAN-ELECTRONIC COURT RECORDER [facility] 01-21-2024 00:34-0500 Heart rate 83 /min JUNE STORY DENTAL LABORATORY TECHNICIAN-ELECTRONIC COURT RECORDER [facility] 10-27-2023 09:52-0400 Body mass index (BMI) [Ratio] 34.02 kg/m2 Astrid Older DENTAL LABORATORY TECHNICIAN.ELECTRONIC COURT RECORDER Work Phone: [facility] 10-27-2023 09:52-0400 Body weight 84.37 kg Astrid Older DENTAL LABORATORY TECHNICIAN.ELECTRONIC COURT RECORDER Work Phone: [facility] 10-27-2023 09:52-0400 Diastolic blood pressure 68 mm[Hg] Astrid Older DENTAL LABORATORY TECHNICIAN.ELECTRONIC COURT RECORDER Work Phone: [facility] 10-27-2023 09:52-0400 Heart rate 60 /min Astrid Older DENTAL LABORATORY TECHNICIAN.ELECTRONIC COURT RECORDER Work Phone: [facility] 10-27-2023 09:52-0400 Respiratory rate 16 /min Astrid Older DENTAL LABORATORY TECHNICIAN.ELECTRONIC COURT RECORDER Work Phone: [facility] 10-27-2023 09:52-0400 SaO2% (BldA) [Mass fraction] 97 % Astrid Older DENTAL LABORATORY TECHNICIAN.ELECTRONIC COURT RECORDER Work Phone: [facility] 10-27-2023 09:52-0400 Systolic blood pressure 124 mm[Hg] Astrid Older DENTAL LABORATORY TECHNICIAN.ELECTRONIC COURT RECORDER Work Phone: [facility] 04-27-2023 09:47-0500 Body height 157.5 cm Renetta Denbow PA-C Work Phone: [facility] 04-27-2023 09:47-0500 Body weight 85.28 kg Renetta Denbow PA-C Work Phone: [facility] 04-27-2023 09:47-0500 Diastolic blood pressure 58 mm[Hg] Renetta Denbow PA-C Work Phone: [facility] 04-27-2023 09:47-0500 Heart rate 61 /min Renetta Denbow PA-C Work Phone: [facility] 04-27-2023 09:47-0500 Respiratory rate 12 /min Renetta Denbow PA-C Work Phone: [facility] 04-27-2023 09:47-0500 SaO2% (BldA) [Mass fraction] 97 % Renetta Denbow PA-C Work Phone: [facility] 04-27-2023 09:47-0500 Systolic blood pressure 122 mm[Hg] Renetta Denbow PA-C Work Phone: [facility] 12-09-2022 13:17-0400 Body height 157.5 cm Renetta Denbow PA-C Work Phone: [facility] 12-09-2022 13:17-0400 Body temperature 97.9 [degF] Renetta Denbow PA-C Work Phone: [facility] 12-09-2022 13:17-0400 Body weight 88.91 kg Renetta Denbow PA-C Work Phone: [facility] 12-09-2022 13:17-0400 Diastolic blood pressure 56 mm[Hg] Renetta Denbow PA-C Work Phone: [facility] 12-09-2022 13:17-0400 Heart rate 85 /min Renetta Denbow PA-C Work Phone: [facility] 12-09-2022 13:17-0400 Respiratory rate 16 /min Renetta Denbow PA-C Work Phone: [facility] 12-09-2022 13:17-0400 SaO2% (BldA) [Mass fraction] 97 % Renetta Denbow PA-C Work Phone: [facility] 12-09-2022 13:17-0400 Systolic blood pressure 118 mm[Hg] Renetta Denbow PA-C Work Phone: [facility] 10-14-2022 13:03-0400 Body height 157.5 cm Renetta Denbow PA-C Work Phone: [facility] 10-14-2022 13:03-0400 Body temperature 97.5 [degF] Renetta Denbow PA-C Work Phone: [facility] 10-14-2022 13:03-0400 Body weight 92.53 kg Renetta Denbow PA-C Work Phone: [facility] 10-14-2022 13:03-0400 Diastolic blood pressure 72 mm[Hg] Renetta Denbow PA-C Work Phone: [facility] 10-14-2022 13:03-0400 Heart rate 60 /min Renetta Denbow PA-C Work Phone: [facility] 10-14-2022 13:03-0400 Respiratory rate 14 /min Renetta Denbow PA-C Work Phone: [facility] 10-14-2022 13:03-0400 SaO2% (BldA) [Mass fraction] 96 % Renetta Denbow PA-C Work Phone: [facility] 10-14-2022 13:03-0400 Systolic blood pressure 120 mm[Hg] Renetta Denbow PA-C Work Phone: [facility] 09-03-2022 13:04-0400 Body weight 92.72 kg Astrid Older DENTAL LABORATORY TECHNICIAN.ELECTRONIC COURT RECORDER Work Phone: [facility] 09-03-2022 13:04-0400 Diastolic blood pressure 82 mm[Hg] Astrid Older DENTAL LABORATORY TECHNICIAN.ELECTRONIC COURT RECORDER Work Phone: [facility] 09-03-2022 13:04-0400 Heart rate 104 /min Astrid Older DENTAL LABORATORY TECHNICIAN.ELECTRONIC COURT RECORDER Work Phone: [facility] 09-03-2022 13:04-0400 Respiratory rate 16 /min Astrid Older DENTAL LABORATORY TECHNICIAN.ELECTRONIC COURT RECORDER Work Phone: [facility] 09-03-2022 13:04-0400 SaO2% (BldA) [Mass fraction] 93 % Astrid Older DENTAL LABORATORY TECHNICIAN.ELECTRONIC COURT RECORDER Work Phone: [facility] 09-03-2022 13:04-0400 Systolic blood pressure 142 mm[Hg] Astrid Older DENTAL LABORATORY TECHNICIAN.ELECTRONIC COURT RECORDER Work Phone: [facility] 06-23-2023 14:08-0400 Body temperature 98.3 [degF] Dr. Jones Velasquez Work Phone: 1(033)426-178807 [place] [address] 08-28-2022 14:08-0400 Diastolic blood pressure 73 mm[Hg] Dr. Jones Velasquez Work Phone: 2(346)866-822907 [place] [address] 08-28-2022 14:08-0400 Heart rate 84 /min Dr. Jones Velasquez Work Phone: 4(203)841-516307 [place] [address] 08-28-2022 14:08-0400 Respiratory rate 18 /min Dr. Jones Vleasquez Work Phone: 7(808)574-517007 [place] [address] 08-28-2022 14:08-0400 SaO2% (BldA) [Mass fraction] 96 % Dr. Jones Velasquez Work Phone: 4(232)257-997807 [place] [address] 08-28-2022 14:08-0400 Systolic blood pressure 156 mm[Hg] Dr. Jones Velasquez Work Phone: 3(575)949-169307 [place] [address] 08-28-2022 12:45-0400 Body mass index (BMI) [Ratio] 38 kg/m2 Dr. Jones Velasquez Work Phone: 7(494)129-345607 [place] [address] 08-26-2022 15:41-0400 Body height 157.[address] Jones Velasquez Work Phone: 5(117)393-044107 [place] [address] 08-26-2022 15:41-0400 Body weight 94.[address] Jones Velasquez Work Phone: 4(995)325-468807 [place] [address] 08-25-2022 18:39-0400 Diastolic blood pressure 78 mm[Hg] Dr. Jones Velasquez Work Phone: 5(328)424-582707 [place] [address] 08-25-2022 18:39-0400 Heart rate 95 /min Dr. Jones Velasquez Work Phone: 1(392)722-268707 [place] [address] 08-25-2022 18:39-0400 Respiratory rate 16 /min Dr. Jones Velasquez Work Phone: 4(030)854-725307 [place] [address] 08-25-2022 18:39-0400 SaO2% (BldA) [Mass fraction] 96 % Dr. Jones Velasquez Work Phone: 0(150)624-850107 [place] [address] 08-25-2022 18:39-0400 Systolic blood pressure 98 mm[Hg] Dr. Jones Velasquez Work Phone: 9(869)904-377007 [place] [address] 08-25-2022 18:12-0400 Body temperature 98.9 [degF] Dr. Jones Velasquez Work Phone: 5(731)028-617207 [place] [address] 08-25-2022 16:34-0400 Body height 157.[address] Jones Velasquez Work Phone: 1(463)355-025507 [place] [address] 08-25-2022 16:34-0400 Body mass index (BMI) [Ratio] 39.2 kg/m2 Dr. Jones Velasquez Work Phone: 1(870)478-502707 [place] [address] 08-25-2022 16:34-0400 Body weight 97.[address] Jones Velasquez Work Phone: 3(024)901-975107 [place] [address] 08-12-2022 10:34-0400 Body mass index (BMI) [Ratio] 38.2 kg/m2 Dr. Jones Velasquez Work Phone: 5(528)436-454607 [place] [address] 08-12-2022 10:34-0400 Body weight 94.[address] Jones Velasquez Work Phone: 7(687)736-611907 [place] [address] 08-12-2022 10:34-0400 Diastolic blood pressure 79 mm[Hg] Dr. Jones Velasquez Work Phone: 6(026)449-546807 [place] [address] 08-12-2022 10:34-0400 Heart rate 71 /min Dr. Jones Velasquez Work Phone: 6(046)285-674107 [place] [address] 08-12-2022 10:34-0400 Respiratory rate 18 /min Dr. Jones Velasquez Work Phone: 2(673)592-422807 [place] [address] 08-12-2022 10:34-0400 SaO2% (BldA) [Mass fraction] 96 % Dr. Jones Velasquez Work Phone: 4(740)930-695207 [place] [address] 08-12-2022 10:34-0400 Systolic blood pressure 137 mm[Hg] Dr. Jones Velasquez Work Phone: [facility] 06-04-2022 13:07-0400 Body temperature 97.81 [degF] Astrid Older DENTAL LABORATORY TECHNICIAN.ELECTRONIC COURT RECORDER Work Phone: [facility] 06-04-2022 13:07-0400 Body weight 99.34 kg Astrid Older DENTAL LABORATORY TECHNICIAN.ELECTRONIC COURT RECORDER Work Phone: [facility] 06-04-2022 13:07-0400 Diastolic blood pressure 78 mm[Hg] Astrid Older DENTAL LABORATORY TECHNICIAN.ELECTRONIC COURT RECORDER Work Phone: [facility] 06-04-2022 13:07-0400 Heart rate 68 /min Astrid Older DENTAL LABORATORY TECHNICIAN.ELECTRONIC COURT RECORDER Work Phone: [facility] 06-04-2022 13:07-0400 Respiratory rate 16 /min Astrid Older DENTAL LABORATORY TECHNICIAN.ELECTRONIC COURT RECORDER Work Phone: [facility] 06-04-2022 13:07-0400 SaO2% (BldA) [Mass fraction] 95 % Astrid Older DENTAL LABORATORY TECHNICIAN.ELECTRONIC COURT RECORDER Work Phone: [facility] 06-04-2022 13:07-0400 Systolic blood pressure 132 mm[Hg] Astrid Older DENTAL LABORATORY TECHNICIAN.ELECTRONIC COURT RECORDER Work Phone: [facility] 02-18-2022 10:05-0500 Body height 157.5 cm Jones Velasquez MD Work Phone: [facility] 02-18-2022 10:05-0500 Body temperature 97.5 [degF] Jones Velasquez MD Work Phone: [facility] 02-18-2022 10:05-0500 Body weight 97.52 kg Jones Velasquez MD Work Phone: [facility] 02-18-2022 10:05-0500 Diastolic blood pressure 76 mm[Hg] Jones Velasquez MD Work Phone: [facility] 02-18-2022 10:05-0500 Heart rate 65 /min Jones Velasquez MD Work Phone: [facility] 02-18-2022 10:05-0500 Respiratory rate 16 /min oJnes Velasquez MD Work Phone: [facility] 02-18-2022 10:05-0500 SaO2% (BldA) [Mass fraction] 97 % Jones Velasquez MD Work Phone: [facility] 02-18-2022 10:05-0500 Systolic blood pressure 128 mm[Hg] Jones Velasquez MD Work Phone: [facility] 08-15-2021 11:38-0400 Body height 157.5 cm Jones Velasquez MD Work Phone: [facility] 08-15-2021 11:38-0400 Body temperature 97.5 [degF] Jones Velasquez MD Work Phone: [facility] 08-15-2021 11:38-0400 Body weight 95.71 kg Jones Velasquez MD Work Phone: [facility] 08-15-2021 11:38-0400 Diastolic blood pressure 64 mm[Hg] Jones Velasquez MD Work Phone: [facility] 08-15-2021 11:38-0400 Heart rate 52 /min Jones Velasquez MD Work Phone: [facility] 08-15-2021 11:38-0400 Respiratory rate 14 /min Jones Velasquez MD Work Phone: [facility] 08-15-2021 11:38-0400 SaO2% (BldA) [Mass fraction] 99 % Jones Velasquez MD Work Phone: [facility] 08-15-2021 11:38-0400 Systolic blood pressure 130 mm[Hg] Jones Velasquez MD Work Phone: [facility] Encounters Encounter Date Encounter Type Care Provider Facility Start: 09-06-2024 End: 09-06-2024 ambulatory ASTRID OLDER Facility:[facility] Start: 09-06-2024 End: 09-06-2024 Patient encounter procedure Sho [facility] Work Phone: Start: 09-06-2024 End: 09-06-2024 ambulatory ASTRID [facility] Work Phone: -[facility] Start: 08-16-2024 End: 08-17-2024 Refill Jones Velasquez MD Work Phone: [facility] Comment on above: Refill Request Start: 08-14-2024 End: 08-14-2024 Nursing evaluation of patient and report Mi Nurse Work Phone: [facility] Comment on above: Vitamin B 12 deficie ncy (Primary Dx) Start: 08-14-2024 End: 08-14-2024 [facility] Facility:[facility] Start: 07-25-2024 End: 07-25-2024 Office outpatient visit 25 minutes Jones Velasquez MD Work Phone: [facility] Comment on above: Urinary frequency (P rimary Dx); Left flank pain; Acute cystitis with hematuria; watermaster (current) use of oral hypoglycemic drugs Start: 07-25-2024 End: 07-25-2024 [facility] Facility:[facility] Start: 07-17-2024 End: 07-17-2024 Nursing evaluation of patient and report Mi Nurse Work Phone: [facility] Comment on above: Vitamin B 12 deficie ncy (Primary Dx) Start: 07-17-2024 End: 07-17-2024 [facility] Facility:[facility] Start: 06-19-2024 End: 06-19-2024 [facility] Facility:[facility] Start: 06-19-2024 End: 06-19-2024 Nursing evaluation of patient and report Mi Nurse Work Phone: [facility] Comment on above: Vitamin B 12 deficie ncy (Primary Dx) Start: 06-09-2024 End: 06-09-2024 [facility] Facility:[facility] Start: 06-09-2024 End: 06-09-2024 Patient encounter procedure Astrid Muse DENTAL LABORATORY TECHNICIAN.ELECTRONIC COURT RECORDER Work Phone: [facility] Comment on above: Type 2 diabetes maldonado itus with hyperglycemia, without long-term current use of insulin (HCC) (Primary Dx); Occipital stroke (HCC); Essential hypertension; Thyroid nodule Start: 05-22-2024 End: 05-22-2024 [facility] Facility:[facility] Start: 05-22-2024 End: 05-22-2024 Nursing evaluation of patient and report Mi Nurse Work Phone: [facility] Comment on above: Vitamin B 12 deficie ncy (Primary Dx) Start: 04-28-2024 End: 04-28-2024 [facility] Facility:[facility] Start: 04-28-2024 End: 04-28-2024 Patient encounter procedure [facility] KENNEDI Work Phone: Internal Medicine [facility] Comment on above: 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); Urinary tract infection without hematuria, site unspecified; Lower abdominal tenderness Start: 04-26-2024 End: 04-26-2024 [facility] Facility:[facility] Start: 04-03-2024 End: 04-03-2024 ambulatory JUSTIN CHRISTOPHER Facility:[facility] Start: 04-03-2024 End: 04-03-2024 Patient encounter procedure Justin Christopher MD Work Phone: General Surgery Comment on above: Thyroid nodule (Prim cherelle Dx) Start: 03-20-2024 End: 03-20-2024 ambulatory JUSTIN CHRISTOPHER Facility:[facility] Start: 03-20-2024 End: 03-20-2024 Patient encounter procedure Justin Christopher MD Work Phone: General Surgery Comment on above: Thyroid nodule Start: 03-20-2024 End: 03-20-2024 [facility] Facility:[facility] Start: 03-20-2024 End: 03-20-2024 Nursing evaluation of patient and report Mi Nurse Work Phone: [facility] Comment on above: Vitamin B 12 deficie ncy (Primary Dx) Start: 03-15-2024 End: 03-15-2024 [facility] Facility:[facility] Start: 03-15-2024 End: 03-15-2024 Patient encounter procedure Astrid Muse DENTAL LABORATORY TECHNICIAN.ELECTRONIC COURT RECORDER Work Phone: [facility] Comment on above: Urinary tract infect ion without hematuria, site unspecified (Primary Dx); Essential hypertension; Diabetes mellitus type 2 with complications (HCC) Start: 03-14-2024 End: 03-14-2024 [facility] Start: 02-21-2024 End: 02-21-2024 Nursing evaluation of patient and report Mi Nurse Work Phone: [facility] Comment on above: Vitamin B 12 deficie ncy (Primary Dx) Start: 02-21-2024 End: 02-21-2024 [facility] Facility:[facility] Start: 02-14-2024 End: 02-14-2024 Telephone encounter Jones Velasquez MD Work Phone: [facility] Comment on above: Orders Refill Request Start: 02-09-2024 End: 02-10-2024 Telephone encounter Astrid Muse APRN.ELECTRONIC COURT RECORDER Work Phone: [facility] Comment on above: Results Start: 02-09-2024 End: 02-09-2024 [facility] Facility:[facility] Start: 02-08-2024 End: 02-08-2024 [facility] Start: 02-08-2024 End: 02-08-2024 Subsequent hospital visit by physician [facility] Work Phone: Radiology Comment on above: Thyroid nodule [E04. 1] Start: 02-02-2024 End: 02-02-2024 [facility] Facility:[facility] Start: 02-02-2024 End: 02-02-2024 Patient encounter procedure Astrid Muse DENTAL LABORATORY TECHNICIAN.ELECTRONIC COURT RECORDER Work Phone: [facility] Comment on above: History of recent ho spitalization (Primary Dx); Urinary tract infection without hematuria, site unspecified; Hypomagnesemia; Thyroid nodule Start: 01-24-2024 End: 01-24-2024 [facility] Facility:[facility] Start: 01-24-2024 End: 01-24-2024 Nursing evaluation of patient and report Mi Nurse Work Phone: [facility] Comment on above: Vitamin B 12 deficie ncy (Primary Dx) Start: 01-20-2024 End: 01-21-2024 Emergency department patient visit DEX TOUSSAINT MD Facility:[facility] Start: 01-20-2024 End: 01-21-2024 Observation ROMULO Ulloa CECELIA DENTAL LABORATORY TECHNICIAN-ELECTRONIC COURT RECORDER [facility] Start: 12-27-2023 End: 12-27-2023 [facility] Facility:[facility] Start: 12-27-2023 End: 12-27-2023 Nursing evaluation of patient and report Mi Nurse Work Phone: [facility] Comment on above: Vitamin B 12 deficie ncy (Primary Dx) Start: 11-29-2023 End: 11-29-2023 Nursing evaluation of patient and report Mi Nurse Work Phone: [facility] Comment on above: Vitamin B 12 deficie ncy (Primary Dx) Start: 11-29-2023 End: 11-29-2023 [facility] Facility:[facility] Start: 11-01-2023 End: 11-01-2023 [facility] Facility:[facility] Start: 11-01-2023 End: 11-01-2023 Nursing evaluation of patient and report Mi Nurse Work Phone: [facility] Comment on above: Vitamin B 12 deficie ncy (Primary Dx) Start: 10-27-2023 End: 10-27-2023 [facility] Facility:[facility] Start: 10-27-2023 End: 10-27-2023 Patient encounter procedure [facility] DENTAL LABORATORY TECHNICIAN.ELECTRONIC COURT RECORDER Work Phone: Internal [facility] Comment on above: Essential hypertensi on (Primary Dx); Diabetes mellitus type 2 with complications (HCC); Mixed hyperlipidemia; Paroxysmal A-fib (HCC); Hypothyroidism, unspecified type Start: 10-26-2023 End: 10-26-2023 ambulatory ASTRID OLDER Facility:[facility] Start: 10-22-2023 End: 10-25-2023 Telephone encounter Jones Velasquez MD Work Phone: [facility] Comment on above: Orders Start: 10-07-2023 Refill Jones Velasquez M D Work Phone: [facility] Comment on above: Refill Request Start: 10-04-2023 End: 10-04-2023 ambulatory JONES VELASQUEZ Facility:[facility] Start: 10-04-2023 End: 10-04-2023 Nursing evaluation of patient and report Mi Nurse Work Phone: [facility] Comment on above: Vitamin B 12 [...] Velasquez M Srikanth Work Phone: [facility] Comment on above: Refill Request Start: 07-30-2023 End: 07-30-2023 Nursing evaluation of patient and report Mi Nurse Work Phone: [facility] Comment on above: Vitamin B 12 deficie ncy (Primary Dx) Start: 07-05-2023 End: 07-05-2023 Nursing evaluation of patient and report Mi Nurse Work Phone: [facility] Comment on above: Vitamin B 12 deficie ncy (Primary Dx) Start: 06-30-2023 Refill Astrid Older DENTAL LABORATORY TECHNICIAN .ELECTRONIC COURT RECORDER Work Phone: [facility] Comment on above: Refill Request Start: 06-08-2023 Refill Astrid Older DENTAL LABORATORY TECHNICIAN .ELECTRONIC COURT RECORDER Work Phone: [facility] Comment on above: Refill Request Start: 06-07-2023 End: 06-07-2023 Nursing evaluation of patient and report Mi Nurse Work Phone: [facility] Comment on above: Vitamin B 12 deficie ncy (Primary Dx) Start: 05-10-2023 End: 05-10-2023 Nursing evaluation of patient and report Mi Nurse Work Phone: [facility] Comment on above: Vitamin B 12 deficie ncy (Primary Dx) Start: 04-27-2023 End: 04-27-2023 Patient encounter procedure Renetta Shahnaz [place] Work Phone: [facility] Comment on above: Type 2 diabetes maldonado itus with hyperglycemia, without long-term current use of insulin (HCC) (Primary Dx); Cerebrovascular accident (CVA), unspecified mechanism (HCC); Mixed hyperlipidemia; Essential hypertension Start: 04-26-2023 Telephone encounter Renetta Dayne ken PA-C Work Phone: [facility] Comment on above: if patient needs lab s done for appt tomorrow Start: 04-12-2023 End: 04-12-2023 Nursing evaluation of patient and report Mi Nurse Work Phone: [facility] Comment on above: Vitamin B 12 deficie ncy (Primary Dx) Start: 02-11-2023 End: 02-11-2023 Nursing evaluation of patient and report Mi Nurse Work Phone: [facility] Comment on above: Vitamin B 12 deficie ncy (Primary Dx) Start: 01-14-2023 End: 01-14-2023 Nursing evaluation of patient and report Mi Nurse Work Phone: [facility] Comment on above: Vitamin B12 deficien cy (Primary Dx) Start: 01-10-2023 Refill Alethea Older DENTAL LABORATORY TECHNICIAN .ELECTRONIC COURT RECORDER Work Phone: [facility] Comment on above: Refill Request Start: 12-17-2022 End: 12-17-2022 Nursing evaluation of patient and report Mi Nurse Work Phone: [facility] Comment on above: Vitamin B12 deficien cy (Primary Dx) Start: 12-09-2022 End: 12-09-2022 Patient encounter procedure Renetta Christie PA-C Work Phone: [facility] Comment on above: Type 2 diabetes maldonado itus with hyperglycemia, without long-term current use of insulin (HCC) (Primary Dx); Acute vaginitis; Cerebrovascular accident (CVA), unspecified mechanism (HCC); Dysuria Start: 11-02-2022 Refill Renetta Christie PA-C Work Phone: [facility] Comment on above: Refill Request Start: 10-14-2022 End: 10-14-2022 Patient encounter procedure Renetta Christie PA-C Work Phone: [facility] Comment on above: Type 2 diabetes maldonado itus with hyperglycemia, without long-term current use of insulin (HCC) (Primary Dx); Essential hypertension; Vitamin B 12 deficiency; Acute vaginitis Start: 10-05-2022 End: 10-05-[address] Jones Velasquez Work Phone: [facility] Work Phone: Start: 10-05-2022 End: 10-05-[address] Jones Velasquez Work Phone: [facility] Work Phone: Start: 09-21-2022 Telephone encounter Renetta Oscar jesus manuel IVET-C Work Phone: [facility] Comment on above: Results Start: 09-03-2022 End: 09-03-2022 Patient encounter procedure Astrid Muse APRN.CNP Work Phone: [facility] Comment on above: History of recent ho spitalization (Primary Dx); Cerebrovascular accident (CVA), unspecified mechanism (HCC); Weakness of right lower extremity; Urinary frequency; Other fatigue; Blood in stool; Left upper quadrant abdominal tenderness without rebound tenderness; Nausea and vomiting, unspecified vomiting type Start: 08-28-2022 Non-patient / Non-visit Dr. Ron Velasquez Work Phone: [facility] Start: 08-27-2022 Non-patient / Non-visit Dr. Ron Velasquez Work Phone: [facility] Start: 08-27-2022 Non-patient / Non-visit Dr. Ron Velasquez Work Phone: [facility] Start: 08-26-2022 Non-patient / Non-visit Dr. Ron Velasquez Work Phone: [facility] Start: 08-26-2022 Non-patient / Non-visit Dr. Ron Velasquez Work Phone: [facility] Start: 08-25-2022 End: 08-28-2022 Evaluation and management of inpatient Dr. Jones Velasquez Work Phone: [facility] Start: 08-21-[address] Shane Velasquez Work Phone: [facility] Start: 08-12-2022 End: 08-12-[address] Jones Velasquez Work Phone: [facility] Start: 08-10-2022 Refill Astrid Muse APRN, .CNP Work Phone: [facility] Comment on above: Refill Request disk request Start: 08-04-2022 Telephone encounter Jones ren MD Work Phone: [facility] Comment on above: Medication Problem Start: 07-16-2022 Telephone encounter Astrid Muse APRN.ELECTRONIC COURT RECORDER Work Phone: [facility] Comment on above: Results Start: 07-16-2022 End: 07-16-[address] Jones Velasquez Work Phone: [facility] Start: 07-13-2022 End: 07-13-2022 Subsequent hospital visit by physician Jacobo [facility] Work Phone: Radiology Comment on above: Acute right-sided lo w back pain with right-sided sciatica [M54.41] Start: 06-29-2022 End: 06-29-2022 Nursing evaluation of patient and report Mi Nurse Work Phone: Family Medicine [facility] Comment on above: Vitamin B12 deficien cy (Primary Dx) Start: 06-18-2022 ambulatory Jodi Lyles JAY [facility] [place] Comment on above: Population Health Na vigation Outreach ([employer] Care Gaps 4.5.23) Start: 06-04-2022 Telephone encounter Jones ren MD Work Phone: [facility] Comment on above: Medication clarifica tion Start: 06-04-2022 End: 06-04-2022 Patient encounter procedure Astrid Muse APRN.ELECTRONIC COURT RECORDER Work Phone: [facility] Comment on above: 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); Essential hypertension; Colon cancer screening Start: 06-01-2022 End: 06-01-2022 Nursing evaluation of patient and report Mi Nurse Work Phone: [facility] Comment on above: Vitamin B12 deficien cy (Primary Dx) Start: 05-04-2022 End: 05-04-2022 Nursing evaluation of patient and report Mi Nurse Work Phone: [facility] Comment on above: Vitamin B12 deficien cy (Primary Dx) Start: 05-01-2022 ambulatory [facility]Pss[facility] [place] Comment on above: Population Health Na vigation Outreach ([employer] Care Gaps) Start: 04-15-2022 ambulatory Jones [facility] Work Phone: Internal [facility] Comment on above: Britney Sierraog eunice Start: 03-24-2022 Telephone encounter Jones ren MD Work Phone: [facility] Comment on above: Orders Start: 03-11-2022 End: 03-11-2022 Nursing evaluation of patient and report Mi Nurse Work Phone: [facility] Comment on above: Vitamin B12 deficien cy (Primary Dx) Start: 02-18-2022 End: 02-18-2022 Patient encounter procedure Jones Velasquez MD Work Phone: [facility] Comment on above: 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); Mixed hyperlipidemia; Essential hypertension; Paroxysmal A-fib (HCC) Start: 02-05-2022 End: 02-05-2022 Nursing evaluation of patient and report Mi Nurse Work Phone: [facility] Comment on above: Vitamin B12 deficien cy (Primary Dx) Start: 02-03-2022 ambulatory Jessica [facility] [place] Comment on above: Population Health Na vigation [...] Dx) Start: 10-23-2021 ambulatory [facility] [place] Comment on above: Population Health Na vigation [...] patient and report Mi Nurse Work Phone: [facility] Comment on above: Vitamin B12 deficien cy (Primary Dx) Start: 08-15-2021 End: 08-15-2021 Patient encounter procedure Jones Velasquez MD Work Phone: [facility] Comment on above: Leukocytosis, unspec ified type (Primary Dx); Hypothyroidism, unspecified type; Diabetes mellitus type 2 with complications (HCC) Start: 07-23-2021 Telephone encounter Jones ren MD Work Phone: [facility] Comment on above: Orders Start: 07-15-2021 End: 07-15-2021 Nursing evaluation of patient and report Mi Nurse Work Phone: [facility] Comment on above: Vitamin B12 deficien cy (Primary Dx) [facility]: [facility] on above: Population Health Na vigation Outreach ([employer] Care Gap) Start: 06-10-2021 End: 06-10-2021 Nursing evaluation of patient and report Mi Nurse Work Phone: [facility] Comment on above: Vitamin B12 deficien cy [...] spine lumbosac ral 2/3 views Astrid Older DENTAL LABORATORY TECHNICIAN.ELECTRONIC COURT RECORDER Work Phone: Start: 08-15-2021 Adult depression scr eening assessment Mi Nurse Work Phone: Start: 12-18-2020 Mammography Mi Nurse Work Phone: Start: 05-15-2020 Adult depression scr eening assessment Mi Nurse Work Phone: Cholecystectomy ROMULO CECELIA DENTAL LABORATORY TECHNICIAN-ELECTRONIC COURT RECORDER Plan of Treatment Date Care Activity Detail Author Start: 01-16-2030 Urine microalbumin profile [facility] Start: 07-25-2025 Annual PCP Team Critical Care Transport Nurse ramirez Disease Visit Annual PCP Team Chronic Disease Visit [facility] Start: 07-25-2025 BP Controlled (<130/80) BP Controlle d (<130/80) [facility] Start: 07-12-2025 Glaucoma screening Dilated Retinal E xam [facility] Start: 06-17-2025 COLOGUARD (FIT-DNA) COLOGUARD (FIT-D NA) [facility] Start: 06-17-2025 COLORECTAL CANCER SCREENING COLORECTAL CANCER SCREENING [facility] Start: 06-09-2025 Annual PCP Team Critical Care Transport Nurse ramirez Disease Visit Annual PCP Team Chronic Disease Visit [facility] Start: 06-09-2025 BP Controlled (<130/80) BP Controlle d (<130/80) [facility] Start: 04-28-2025 Annual PCP Team Critical Care Transport Nurse ramirez Disease Visit Annual PCP Team Chronic Disease Visit [facility] Start: 04-28-2025 BP Controlled (<130/80) BP Controlle d (<130/80) [facility] Start: 04-26-2025 Hepatitis B screening Urine Albumin:Creatinine Ratio [facility] Start: 04-26-2025 Hepatitis B surface antibody level LDL Cholesterol [facility] Start: 03-20-2025 BP Controlled (<130/80) BP Controlle d (<130/80) [facility] Start: 03-15-2025 Annual PCP Team Critical Care Transport Nurse ramirez Disease Visit Annual PCP Team Chronic Disease Visit [facility] Start: 03-15-2025 BP Controlled (<130/80) BP Controlle d (<130/80) [facility] Start: 02-01-2025 Annual PCP Team Critical Care Transport Nurse raimrez Disease Visit Annual PCP Team Chronic Disease Visit [facility] Start: 02-01-2025 BP Controlled (<130/80) BP Controlle d (<130/80) [facility] Start: 12-01-2024 Glaucoma screening Dilated Retinal E xam [facility] Start: 10-26-2024 Annual PCP Team Critical Care Transport Nurse ramirez Disease Visit Annual PCP Team Chronic Disease Visit [facility] Start: 10-26-2024 BP Controlled (<130/80) BP Controlle d (<130/80) [facility] Start: 10-26-2024 Covid-19 Vaccine ( season) Covid-19 Vaccine ( season) [facility] Comment on above: Postponed from 05/13 (Declined at this time) Start: 10-26-2024 RSV Vaccine (1 - 1-d ose 60+ series) RSV Vaccine (1 - 1-dose 60+ series) [facility] Comment on above: Postponed from 09/29 (Declined at this time) Start: 10-26-2024 RSV Vaccine (1 - 1-d ose 75+ series) RSV Vaccine (1 - 1-dose 75+ series) [facility] Comment on above: Postponed from 09/29 (Declined at this time) Start: 10-24-2024 Hemoglobin A1c measurement HbA1C [facility] Start: 09-11-2024 End: 09-11-2024 Nursing evaluation of patient and report 09/11/2024 11:30 AM EDT Nurse Visit [facility] [address] [place] [address] Nurse, [place] [address] [place] [address] B-12 injection [facility] Comment on above: B-12 injection Start: 09-11-2024 End: 09-11-2024 Patient encounter procedure 09/11/2024 9:40 AM EDT Office Visit Internal [facility] [address] [place] [address] [address] Muse [address]ELECTRONIC COURT RECORDER [address] [place] [address] 3 month follow up [facility] Comment on above: 3 month follow up Start: 09-08-2024 End: 12-08-2024 Basic metabolic 2000 panel - Serum or Plasma BASIC METABOLIC PANEL Lab Routine Type 2 diabetes mellitus with hyperglycemia, without long-term current use of insulin (HCC) Essential hypertension Expected: 09/08/2024 (Approximate), Expires: 12/08/2024 [facility] Comment on above: Expected: 09/08/2024 (Approximate), Expires: 12/08/2024 Start: 09-08-2024 End: 12-08-2024 CBC W Auto Differential panel - Blood COMPLETE BLOOD COUNT AND DIFFERENTIAL Lab Routine Type 2 diabetes mellitus with hyperglycemia, without long-term current use of insulin (HCC) Essential hypertension Expected: 09/08/2024 (Approximate), Expires: 12/08/2024 [facility] Comment on above: Expected: 09/08/2024 (Approximate), Expires: 12/08/2024 Start: 09-08-2024 End: 12-08-2024 Hemoglobin A1c in Blood HEMOGLOBIN A1C Lab Routine Type 2 diabetes mellitus with hyperglycemia, without long-term current use of insulin (HCC) Expected: 09/08/2024 (Approximate), Expires: 12/08/2024 [facility] Comment on above: Expected: 09/08/2024 (Approximate), Expires: 12/08/2024 Start: 09-08-2024 End: 12-08-2024 Thyrotropin [Units/volume] in Serum or Plasma THYROID STIMULATING HORMONE Lab Routine Thyroid nodule Expected: 09/08/2024 (Approximate), Expires: 12/08/2024 [facility] Work Phone: Comment on above: Expected: 09/08/2024 (Approximate), Expires: 12/08/2024 Start: 08-14-2024 End: 08-14-2024 Nursing evaluation of patient and report 08/14/2024 11:45 AM EDT Nurse Visit [facility] [address] [place] [address] Nurse, [place] [address] [place] [address] B-12 injection [facility] Comment on above: B-12 injection Start: 07-19-2024 Hemoglobin A1c measurement HbA1C [facility] Start: 07-17-2024 End: 07-17-2024 Nursing evaluation of patient and report 07/17/2024 11:45 AM EDT Nurse Visit [facility] [address] [facility] [place] [address] Nurse, [place] [address] [place] [address] B-12 injection [facility] Comment on above: B-12 injection Start: 06-19-2024 End: 06-19-2024 Nursing evaluation of patient and report 06/19/2024 11:45 AM EDT Nurse Visit [facility] [address] [place] [address] Nurse, [place] [address] [place] [address] B-12 injection [facility] Comment on above: B-12 injection Start: 06-09-2024 End: 06-09-2024 Patient encounter procedure 06/09/2024 10:00 AM EDT Office Visit Internal Medicine [facility] [address] [facility] [place] [address] Astrid Mues APRN.ELECTRONIC COURT RECORDER [address] [facility] [place] [address] 6 week follow up UTI and jardiance [facility] Comment on above: 6 week follow up UTI and jardiance Start: 05-30-2024 Covid-19 Vaccine ( season) Covid-19 Vaccine () [facility] Start: 05-22-2024 End: 05-22-2024 Nursing evaluation of patient and report 05/22/2024 11:45 AM EDT Nurse Visit Family [facility] [address] [place] [address] Nurse, [place] [address] [place] [address] B-12 injection [facility] Comment on above: B-12 injection Start: 04-28-2024 End: 04-28-2024 Patient encounter procedure [facility] Comment on above: 6 month follow up 6 month follow up; B -12 injection Start: 04-27-2024 Annual PCP Team Critical Care Transport Nurse ramirez Disease Visit Annual PCP Team Chronic Disease Visit [facility] Start: 04-27-2024 BP Controlled (<130/80) BP Controlle d (<130/80) [facility] Start: 04-27-2024 Hemoglobin A1c measurement HbA1C [facility] Start: 04-27-2024 Hepatitis B surface antibody level LDL Cholesterol [facility] Start: 04-10-2024 End: 07-10-2024 CBC panel - Blood by Automated count COMPLETE BLOOD COUNT Lab Routine Essential hypertension Diabetes mellitus type 2 with complications (HCC) Expected: 04/10/2024 (Approximate), Expires: 07/10/2024 [facility] Comment on above: Expected: 04/10/2024 (Approximate), Expires: 07/10/2024 Start: 04-10-2024 End: 07-10-2024 Comprehensive metabolic 2000 panel - Serum or Plasma COMPREHENSIVE METABOLIC PANEL Lab Routine Essential hypertension Mixed hyperlipidemia Diabetes mellitus type 2 with complications (HCC) Expected: 04/10/2024 (Approximate), Expires: 07/10/2024 [facility] Comment on above: Expected: 04/10/2024 (Approximate), Expires: 07/10/2024 Start: 04-10-2024 End: 07-10-2024 Hemoglobin A1c in Blood HEMOGLOBIN A1C Lab Routine Diabetes mellitus type 2 with complications (HCC) Expected: 04/10/2024 (Approximate), Expires: 07/10/2024 [facility] Comment on above: Expected: 04/10/2024 (Approximate), Expires: 07/10/2024 Start: 04-10-2024 End: 07-10-2024 Lipid 1996 panel - Serum or Plasma LIPID PANEL BASIC Lab Routine Mixed hyperlipidemia Expected: 04/10/2024 (Approximate), Expires: 07/10/2024 [facility] Comment on above: Expected: 04/10/2024 (Approximate), Expires: 07/10/2024 Start: 04-10-2024 End: 07-10-2024 Thyrotropin [Units/volume] in Serum or Plasma THYROID STIMULATING HORMONE Lab Routine Hypothyroidism, unspecified type Expected: 04/10/2024 (Approximate), Expires: 07/10/2024 [facility] Comment on above: Expected: 04/10/2024 (Approximate), Expires: 07/10/2024 Start: 04-03-2024 End: 04-03-2024 Patient encounter procedure 04/03/2024 1:00 PM EST Office Visit General Surgery [address] [place] [address] Justin Christopher MD [address] [place] [address] fna left thyroid General Surgery Comment on above: fna left thyroid Start: 03-20-2024 End: 03-20-2024 Patient encounter procedure 03/20/2024 1:15 PM EST Office Visit General Surgery [address] [place] [address] Justin Christopher MD [address] [place] [address] Thyroid nodule [E04.1], 02/08/24, US thyroid, s General Surgery Comment on above: Thyroid nodule [E04. 1], 02/08/24, US thyroid, s Start: 03-20-2024 End: 03-20-2024 Nursing evaluation of patient and report 03/20/2024 11:45 AM EST Nurse Visit Family Medicine [facility] [address] [place] [address] Nurse, [place] [address] [place] [address] B-12 injection [facility] Comment on above: B-12 injection Start: 03-15-2024 End: 06-14-2024 Microalbumin/Creatinine [Mass Ratio] in Urine ALBUMIN/CREATININE RATIO, URINE Lab Routine Diabetes mellitus type 2 with complications (HCC) Expected: 03/15/2024, Expires: 06/14/2024 [facility] Work Phone: Comment on above: Expected: 03/15/2024 , Expires: 06/14/2024 Start: 03-15-2024 End: 06-14-2024 Urinalysis complete panel - Urine URINALYSIS (WITH MICROSCOPIC) WITH CULTURE IF INDICATED Lab Routine Urinary tract infection without hematuria, site unspecified Expected: 03/15/2024, Expires: 06/14/2024 [facility] Comment on above: Expected: 03/15/2024 , Expires: 06/14/2024 Start: 03-15-2024 End: 03-15-2024 Patient encounter procedure 03/15/2024 10:20 AM EST Office Visit Internal Medicine [facility] [address] [facility], [place] [id number] Astrid Muse APRN.ELECTRONIC COURT RECORDER [address] [place], [place] [id number] 6 WEEK FOLLOW UP [facility] Comment on above: 6 WEEK FOLLOW UP Start: 03-08-2024 Medicare Advantage A nnual Wellness Visit Medicare Advantage Annual Wellness Visit [facility] Start: 02-23-2024 End: 02-23-2024 Patient encounter procedure General Surgery Comment on above: Thyroid nodule [E04. 1] needs R/S with [facility] [place], message sent....Thyroid nodule [E04.1], 02/08/24, US thyroid, mjs Start: 02-21-2024 End: 02-21-2024 Nursing evaluation of patient and report 02/21/2024 11:45 AM EST Nurse Visit [facility] [address] [facility], [place] [id number] Nurse, [place] [address] [facility], [place] [id number] B-12 injection [facility] Comment on above: B-12 injection Start: 02-09-2024 End: 05-10-2024 Basic metabolic 2000 panel - Serum or Plasma BASIC METABOLIC PANEL Lab Routine Urinary tract infection without hematuria, site unspecified Hypomagnesemia Expected: 02/09/2024 (Approximate), Expires: 05/10/2024 [facility] Comment on above: Expected: 02/09/2024 (Approximate), Expires: 05/10/2024 Start: 02-09-2024 End: 05-10-2024 Magnesium [Mass/volume] in Serum or Plasma MAGNESIUM Lab Routine Urinary tract infection without hematuria, site unspecified Hypomagnesemia Expected: 02/09/2024 (Approximate), Expires: 05/10/2024 [facility] Comment on above: Expected: 02/09/2024 (Approximate), Expires: 05/10/2024 Start: 02-09-2024 End: 05-10-2024 Urinalysis complete panel - Urine URINALYSIS WITH MICROSCOPIC, REFLEX CULTURE Lab Routine Urinary tract infection without hematuria, site unspecified Hypomagnesemia Expected: 02/09/2024 (Approximate), Expires: 05/10/2024 [facility] Work Phone: Comment on above: Expected: 02/09/2024 (Approximate), Expires: 05/10/2024 Start: 02-08-2024 End: 02-08-2024 Patient encounter procedure 02/08/2024 7:45 AM EST Appointment Radiology [address] [place] [address] Thyroid nodule [E04.1] Radiology Comment on above: Thyroid nodule [E04. 1] Start: 01-24-2024 End: 01-24-2024 Nursing evaluation of patient and report 01/24/2024 1:15 PM EST Nurse Visit [facility] [address] [place] [address] Nurse, [address] [place] [address] B-12 injection [facility] Comment on above: B-12 injection Start: 12-27-2023 End: 12-27-2023 Nursing evaluation of patient and report 12/27/2023 1:15 PM EDT Nurse Visit Family Medicine [facility] [address] [place] [address] Nurse [facility] [place] [address] B-12 injection [facility] Comment on above: B-12 injection Start: 12-10-2023 Annual PCP Team Critical Care Transport Nurse ramirez Disease Visit Annual PCP Team Chronic Disease Visit [facility] Start: 12-10-2023 BP Controlled (<130/80) BP Controlle d (<130/80) [facility] Start: 11-29-2023 End: 11-29-2023 Nursing evaluation of patient and report 11/29/2023 1:15 PM EDT Nurse Visit Family Medicine [facility] [address] [place] [address] Nurse, [place] [address] [facility] [place] [address] B-12 injection [facility] Comment on above: B-12 injection Start: 11-07-2023 Covid-19 Vaccine () Covid-19 Vaccine () [facility] Start: 11-07-2023 Influenza vaccination Influenza Vacc ine (#1) [facility] Start: 11-01-2023 End: 11-01-2023 Nursing evaluation of patient and report 11/01/2023 1:15 PM EDT Nurse Visit Family [facility] [address] [facility] [place] [address] Nurse, [place] [address] [facility] [place] [address] B-12 injection [facility] Comment on above: B-12 injection Start: 10-27-2023 End: 01-26-2024 Microalbumin/Creatinine [Mass Ratio] in Urine ALBUMIN/CREATININE RATIO, URINE Lab Routine Diabetes mellitus type 2 with complications (HCC) Expected: 10/27/2023, Expires: 01/26/2024 [facility] Work Phone: Comment on above: Expected: 10/27/2023 , Expires: 01/26/2024 Start: 10-27-2023 End: 10-27-2023 Patient encounter procedure 10/27/2023 10:00 AM EDT Office Visit Internal Medicine [facility] [address] [facility], [place] [phone] Astrid Muse APRN.ELECTRONIC COURT RECORDER [address] [place], [place] [phone] 6 month follow up- labs [facility] Comment on above: 6 month follow up- l abs Start: 10-26-2023 Hemoglobin A1c measurement HbA1C [facility] Start: 10-25-2023 End: 01-24-2024 Basic metabolic 2000 panel - Serum or Plasma BASIC METABOLIC PANEL Lab Routine Essential hypertension Paroxysmal A-fib (HCC) Diabetes mellitus type 2 with complications (HCC) Expected: 10/25/2023, Expires: 01/24/2024 [facility] Comment on above: Expected: 10/25/2023 , Expires: 01/24/2024 Start: 10-25-2023 End: 01-24-2024 CBC panel - Blood by Automated count COMPLETE BLOOD COUNT Lab Routine Essential hypertension Paroxysmal A-fib (HCC) Diabetes mellitus type 2 with complications (HCC) Expected: 10/25/2023, Expires: 01/24/2024 [facility] Work Phone: Comment on above: Expected: 10/25/2023 , Expires: 01/24/2024 Start: 10-25-2023 End: 01-24-2024 Hemoglobin A1c in Blood HEMOGLOBIN A1C Lab Routine Diabetes mellitus type 2 with complications (HCC) Expected: 10/25/2023, Expires: 01/24/2024 [facility] Comment on above: Expected: 10/25/2023 , Expires: 01/24/2024 Start: 10-25-2023 End: 01-24-2024 Thyrotropin [Units/volume] in Serum or Plasma THYROID STIMULATING HORMONE Lab Routine Hypothyroidism, unspecified type Expected: 10/25/2023, Expires: 01/24/2024 [facility] Comment on above: Expected: 10/25/2023 , Expires: 01/24/2024 Start: 10-15-2023 ANNUAL PCP TEAM PHOTOGRAPH DEVELOPER RAMIREZ DISEASE VISIT ANNUAL PCP TEAM CHRONIC DISEASE VISIT [facility] Start: 10-15-2023 BP CONTROLLED (<130/80) BP CONTROLLE D (<130/80) [facility] Start: 10-04-2023 End: 10-04-2023 Nursing evaluation of patient and report 10/04/2023 1:15 PM EDT Nurse Visit Family Medicine [facility] [address] [facility] [place] [address] Nurse, [place] [address] [place] [address] B-12 injection [facility] Comment on above: B-12 injection Start: 09-19-2023 ANNUAL PCP TEAM PHOTOGRAPH DEVELOPER RAMIREZ DISEASE VISIT ANNUAL PCP TEAM CHRONIC DISEASE VISIT [facility] Start: 09-19-2023 BP CONTROLLED (<130/80) BP CONTROLLE D (<130/80) [facility] Start: 09-07-2023 End: 09-07-2023 Nursing evaluation of patient and report 09/07/2023 10:45 AM EDT Nurse Visit [facility] [address] [place] [address] Nurse, [place] [address] [place] [address] B-12 injection [facility] Comment on above: B-12 injection Start: 09-04-2023 ANNUAL PCP TEAM PHOTOGRAPH DEVELOPER RAMIREZ DISEASE VISIT ANNUAL PCP TEAM CHRONIC DISEASE VISIT [facility] Start: 08-05-2023 ANNUAL PCP TEAM PHOTOGRAPH DEVELOPER RAMIREZ DISEASE VISIT ANNUAL PCP TEAM CHRONIC DISEASE VISIT [facility] Start: 07-05-2023 End: 07-05-2023 Nursing evaluation of patient and report 07/05/2023 1:15 PM EDT Nurse Visit [facility] [address] [place] [address] Nurse, [place] [address] [place] [address] B-12 injection [facility] Comment on above: B-12 injection Start: 06-08-2023 Hemoglobin A1c measurement HbA1C [facility] Start: 06-08-2023 Hemoglobin A1c/Hemoglobin.total in Blood HbA1C [facility] Start: 06-05-2023 ANNUAL PCP TEAM PHOTOGRAPH DEVELOPER RAMIREZ DISEASE VISIT ANNUAL PCP TEAM CHRONIC DISEASE VISIT [facility] Start: 05-22-2023 Hepatitis B surface antibody level LDL CHOLESTEROL [facility] Start: 05-14-2023 Covid-19 Vaccine () Covid-19 Vaccine () [facility] Start: 04-26-2023 End: 07-26-2023 CBC W Auto Differential panel - Blood CBC + DIFF Lab Routine Essential hypertension Mixed hyperlipidemia Vitamin B 12 deficiency Type 2 diabetes mellitus with hyperglycemia, without long-term current use of insulin (HCC) Expected: 04/26/2023, Expires: 07/26/2023 [facility] Work Phone: Comment on above: Expected: 04/26/2023 , Expires: 07/26/2023 Start: 04-26-2023 End: 07-26-2023 Cobalamin (Vitamin B12) [Mass/volume] in Serum or Plasma VITAMIN B12 BLOOD Lab Routine Vitamin B 12 deficiency Expected: 04/26/2023, Expires: 07/26/2023 [facility] Work Phone: Comment on above: Expected: 04/26/2023 , Expires: 07/26/2023 Start: 04-26-2023 End: 07-26-2023 Comprehensive metabolic 2000 panel - Serum or Plasma COMP METABOLIC PANEL Lab Routine Essential hypertension Type 2 diabetes mellitus with hyperglycemia, without long-term current use of insulin (HCC) Expected: 04/26/2023, Expires: 07/26/2023 [facility] Work Phone: Comment on above: Expected: 04/26/2023 , Expires: 07/26/2023 Start: 04-26-2023 End: 07-26-2023 Hemoglobin A1c in Blood HGB A1C Lab Routine Mixed hyperlipidemia Type 2 diabetes mellitus with hyperglycemia, without long-term current use of insulin (HCC) Expected: 04/26/2023, Expires: 07/26/2023 [facility] Work Phone: Comment on above: Expected: 04/26/2023 , Expires: 07/26/2023 Start: 04-26-2023 End: 07-26-2023 Lipid 1996 panel - Serum or Plasma LIPID PANEL BASIC Lab Routine Essential hypertension Mixed hyperlipidemia Type 2 diabetes mellitus with hyperglycemia, without long-term current use of insulin (HCC) Expected: 04/26/2023, Expires: 07/26/2023 [facility] Work Phone: Comment on above: Expected: 04/26/2023 , Expires: 07/26/2023 Start: 04-26-2023 End: 07-26-2023 Thyrotropin [Units/volume] in Serum or Plasma TSH BLD Lab Routine Type 2 diabetes mellitus with hyperglycemia, without long-term current use of insulin (HCC) Paroxysmal A-fib (HCC) Expected: 04/26/2023, Expires: 07/26/2023 [facility] Work Phone: Comment on above: Expected: 04/26/2023 , Expires: 07/26/2023 Start: 03-08-2023 Advance Directive Discussion Advance Directive Discussion [facility] Start: 03-08-2023 Behavioral Health Screening Behavioral Health Screening [facility] Start: 03-08-2023 Depression Assessment Depression Ass essment [facility] Start: 02-18-2023 ANNUAL PCP TEAM PHOTOGRAPH DEVELOPER RAMIREZ DISEASE VISIT ANNUAL PCP TEAM CHRONIC DISEASE VISIT [facility] Start: 02-18-2023 BP CONTROLLED (<130/80) BP CONTROLLE D (<130/80) [facility] Start: 02-17-2023 Glaucoma screening Dilated Retinal E xam [facility] Start: 02-17-2023 Hepatitis C antibody , confirmatory test DILATED RETINAL EXAM [facility] Start: 01-09-2023 Hemoglobin A1c/Hemoglobin.total in Blood HBA1C [facility] Start: 12-19-2022 Hemoglobin A1c/Hemoglobin.total in Blood HBA1C [facility] Start: 12-09-2022 End: 02-08-2023 Bacteria identified in Urine by Culture URINE CULTURE Microbiology Routine Dysuria Expected: 12/09/2022, Expires: 02/08/2023 [facility] Work Phone: Comment on above: Expected: 12/09/2022 , Expires: 02/08/2023 Start: 12-09-2022 End: 02-08-2023 URINALYSIS, DIPSTICK ONLY URINALYSIS, DIPSTICK ONLY Lab Routine Dysuria Expected: 12/09/2022, Expires: 02/08/2023 [facility] Work Phone: Comment on above: Expected: 12/09/2022 , Expires: 02/08/2023 Start: 11-28-2022 End: 01-28-2023 Hemoglobin A1c in Blood HGB A1C Lab Routine Type 2 diabetes mellitus with hyperglycemia, without long-term current use of insulin (HCC) Expected: 11/28/2022 (Approximate), Expires: 01/28/2023 [facility] Work Phone: Comment on above: Expected: 11/28/2022 (Approximate), Expires: 01/28/2023 Start: 11-21-2022 3 comp foot exam completed DIABETIC FOOT EXAM [facility] Start: 11-21-2022 ANNUAL PCP TEAM PHOTOGRAPH DEVELOPER RAMIREZ DISEASE VISIT ANNUAL PCP TEAM CHRONIC DISEASE VISIT [facility] Start: 11-21-2022 BP CONTROLLED (<130/80) BP CONTROLLE D (<130/80) [facility] Start: 11-21-2022 Diabetic foot examination Diabetic F oot Exam [facility] Start: 11-19-2022 Hepatitis B surface antibody level LDL CHOLESTEROL [facility] Start: 11-06-2022 Covid-19 Vaccine ( season) Covid-19 Vaccine ( season) [facility] Start: 11-06-2022 Influenza vaccination INFLUENZA (#1) [facility] Start: 10-05-2022 End: 12-05-2022 ALBUMIN/CREAT RATIO RND UR ALBUMIN/CREAT RATIO RND UR Lab Routine Diabetes mellitus type 2 with complications (HCC) Expected: 10/05/2022 (Approximate), Expires: 12/05/2022 [facility] Work Phone: Comment on above: Expected: 10/05/2022 (Approximate), Expires: 12/05/2022 Start: 10-05-2022 End: 12-05-2022 Basic metabolic 2000 panel - Serum or Plasma BASIC METABOLIC PNL Lab Routine Diabetes mellitus type 2 with complications (HCC) Essential hypertension Expected: 10/05/2022 (Approximate), Expires: 12/05/2022 [facility] Work Phone: Comment on above: Expected: 10/05/2022 (Approximate), Expires: 12/05/2022 Start: 10-05-2022 End: 12-05-2022 CBC W Auto Differential panel - Blood CBC + DIFF Lab Routine Diabetes mellitus type 2 with complications (HCC) Essential hypertension Expected: 10/05/2022 (Approximate), Expires: 12/05/2022 [facility] Work Phone: Comment on above: Expected: 10/05/2022 (Approximate), Expires: 12/05/2022 Start: 10-05-2022 End: 12-05-2022 Hemoglobin A1c in Blood HGB A1C Lab Routine Diabetes mellitus type 2 with complications (HCC) Expected: 10/05/2022 (Approximate), Expires: 12/05/2022 [facility] Work Phone: Comment on above: Expected: 10/05/2022 (Approximate), Expires: 12/05/2022 Start: 09-03-2022 End: 11-03-2022 Amylase [Enzymatic activity/volume] in Serum or Plasma [facility] Work Phone: Comment on above: Expected: 09/03/2022 , Expires: 11/03/2022 Start: 09-03-2022 End: 11-03-2022 Bacteria identified in Urine by Culture URINE CULTURE Microbiology Routine Urinary frequency Expected: 09/03/2022, Expires: 11/03/2022 [facility] Work Phone: Comment on above: Expected: 09/03/2022 , Expires: 11/03/2022 Start: 09-03-2022 End: 11-03-2022 Comprehensive metabolic 2000 panel - Serum or Plasma [facility] Work Phone: Comment on above: Expected: 09/03/2022 , Expires: 11/03/2022 Start: 09-03-2022 End: 11-03-2022 Lipase [Enzymatic activity/volume] in Serum or Plasma [facility] Work Phone: Comment on above: Expected: 09/03/2022 , Expires: 11/03/2022 Start: 09-03-2022 End: 11-03-2022 Urinalysis complete panel - Urine URINALYSIS, WITH MICROSCOPIC Lab Routine Urinary frequency Expected: 09/03/2022, Expires: 11/03/2022 [facility] Work Phone: Comment on above: Expected: 09/03/2022 , Expires: 11/03/2022 Start: 08-30-2022 [facility] Start: 08-29-2022 [facility] Start: 08-28-2022 Patient discharge [facility] Start: 08-26-2022 Following clinical p athway protocol [facility] Start: 08-26-2022 [facility] Start: 08-26-2022 Telepractice consultation [facility] Start: 08-26-2022 [facility] Start: 08-26-2022 Thyroid stimulating hormone measurement [facility] Start: 08-25-2022 Following clinical p athway protocol [facility] Start: 08-25-2022 Assessment of risk o f venous thromboembolism [facility] Start: 08-25-2022 Cardiac monitoring [facility] Start: 08-25-2022 Care regimes management [facility] Start: 08-25-2022 Catheterization of vein [facility] Start: 08-25-2022 Continuous pulse oximetry [facility] Start: 08-25-2022 Elevation of head of bed [facility] Start: 08-25-2022 Exercises [facility] Start: 08-25-[address] anned interventions [facility] Start: 08-25-2022 Insertion of cathete r into peripheral vein [facility] Start: 08-25-2022 Measuring intake and output [facility] Start: 08-25-2022 Notification of physician [facility] Start: 08-25-2022 Oxygen therapy [facility] Start: 08-25-2022 Providing care accor ding to standard [facility] Start: 08-25-2022 Provision of activit y privileges [facility] Start: 08-25-2022 Referral to occupati onal therapist [facility] Start: 08-25-2022 Referral to service [facility] Start: 08-25-2022 Speech therapy assessment [facility] Start: 08-25-2022 Tobacco use cessatio n education [facility] Start: 08-25-2022 [facility] Start: 08-25-2022 MRI of brain without contrast Brain without Contrast [facility] Start: 08-25-2022 Verification routine [facility] Start: 08-25-2022 Admission procedure [facility] Start: 08-25-2022 Oxygen therapy [facility] Start: 08-25-2022 [facility] Start: 08-21-2022 Hemoglobin A1c/Hemoglobin.total in Blood HBA1C [facility] Start: 08-15-2022 Adult depression scr eening assessment DEPRESSION SCREENING [facility] Start: 08-15-2022 ANNUAL PCP TEAM PHOTOGRAPH DEVELOPER RAMIREZ DISEASE VISIT ANNUAL PCP TEAM CHRONIC DISEASE VISIT [facility] Start: 08-13-2022 Hepatitis B surface antibody level LDL CHOLESTEROL [facility] Start: 05-19-2022 End: 07-19-2022 Hemoglobin A1c in Blood HGB A1C Lab Routine Diabetes mellitus type 2 with complications (HCC) Expected: 05/19/2022, Expires: 07/19/2022 [facility] Work Phone: Comment on above: Expected: 05/19/2022 , Expires: 07/19/2022 Start: 05-14-2022 ANNUAL PCP TEAM PHOTOGRAPH DEVELOPER RAMIREZ DISEASE VISIT ANNUAL PCP TEAM CHRONIC DISEASE VISIT [facility] Start: 05-14-2022 BP CONTROLLED (<130/80) BP CONTROLLE D (<130/80) [facility] Start: 05-13-2022 Hemoglobin A1c/Hemoglobin.total in Blood HBA1C [facility] Start: 04-02-2022 COVID-19 VACCINE (6 - Moderna series) COVID-19 VACCINE (6 - Moderna series) [facility] Start: 03-08-2022 ADVANCE DIRECTIVE DISCUSSION ADVANCE DIRECTIVE DISCUSSION [facility] Start: 03-08-2022 DEPRESSION ASSESSMENT DEPRESSION ASS ESSMENT [facility] Start: 02-20-2022 Hemoglobin A1c/Hemoglobin.total in Blood HBA1C [facility] Start: 02-18-2022 End: 04-20-2022 ALBUMIN/CREAT RATIO RND UR ALBUMIN/CREAT RATIO RND UR Lab Routine Diabetes mellitus type 2 with complications (HCC) Expected: 02/18/2022, Expires: 04/20/2022 [facility] Work Phone: Comment on above: Expected: 02/18/2022 , Expires: 04/20/2022 Start: 12-18-2021 Mammography MAMMOGRAM [facility] Start: 12-10-2021 3 comp foot exam completed DIABETIC FOOT EXAM [facility] Start: 12-06-2021 Hepatitis B surface antibody level LDL CHOLESTEROL [facility] Start: 11-13-2021 Hemoglobin A1c/Hemoglobin.total in Blood HBA1C [facility] Start: 11-06-2021 Influenza vaccination INFLUENZA (#1) [facility] Start: 09-22-2021 Hemoglobin A1c/Hemoglobin.total in Blood HBA1C [facility] Start: 09-14-2021 End: 11-14-2021 CBC W Auto Differential panel - Blood CBC + DIFF Lab Routine Leukocytosis, unspecified type Expected: 09/14/2021, Expires: 11/14/2021 [facility] Work Phone: Comment on above: Expected: 09/14/2021 , Expires: 11/14/2021 Start: 09-14-2021 End: 08-15-2022 Thyrotropin [Units/volume] in Serum or Plasma TSH BLD Lab Routine Hypothyroidism, unspecified type Expected: 09/14/2021, Expires: 08/15/2022 [facility] Work Phone: Comment on above: Expected: 09/14/2021 , Expires: 08/15/2022 Start: 09-14-2021 End: 08-15-2022 Thyroxine (T4) free [Mass/volume] in Serum or Plasma T4 FREE/FREE THYROX Lab Routine Hypothyroidism, unspecified type Expected: 09/14/2021, Expires: 08/15/2022 [facility] Work Phone: Comment on above: Expected: 09/14/2021 , Expires: 08/15/2022 Start: 09-14-2021 End: 08-15-2022 Triiodothyronine (T3) Free [Mass/volume] in Serum or Plasma T3 FREE BLD Lab Routine Hypothyroidism, unspecified type Expected: 09/14/2021, Expires: 08/15/2022 [facility] Work Phone: Comment on above: Expected: 09/14/2021 , Expires: 08/15/2022 Start: 07-23-2021 End: 09-22-2021 CBC W Auto Differential panel - Blood CBC + DIFF Lab Routine Essential hypertension Expected: 07/23/2021, Expires: 09/22/2021 [facility] Work Phone: Comment on above: Expected: 07/23/2021 , Expires: 09/22/2021 Start: 07-23-2021 End: 09-22-2021 Comprehensive metabolic 2000 panel - Serum or Plasma COMP METABOLIC PANEL Lab Routine Essential hypertension Mixed hyperlipidemia Expected: 07/23/2021, Expires: 09/22/2021 [facility] Work Phone: Comment on above: Expected: 07/23/2021 , Expires: 09/22/2021 Start: 07-23-2021 End: 09-22-2021 Hemoglobin A1c/Hemoglobin.total in Blood HGB A1C Lab Routine Controlled type 2 diabetes mellitus without complication, without long-term current use of insulin ([facility]) Expected: 07/23/2021, Expires: 09/22/2021 [facility] Work Phone: Comment on above: Expected: 07/23/2021 , Expires: 09/22/2021 Start: 07-23-2021 End: 09-22-2021 LIPID PANEL BASIC LIPID PANEL BASIC Lab Routine Mixed hyperlipidemia Expected: 07/23/2021, Expires: 09/22/2021 [facility] Work Phone: Comment on above: Expected: 07/23/2021 , Expires: 09/22/2021 Start: 07-23-2021 End: 09-22-2021 Thyrotropin [Units/volume] in Serum or Plasma TSH BLD Lab Routine Abnormal TSH Expected: 07/23/2021, Expires: 09/22/2021 [facility] Work Phone: Comment on above: Expected: 07/23/2021 , Expires: 09/22/2021 Start: 07-23-2021 End: 09-22-2021 VITAMIN D 25 HYDROXY VITAMIN D 25 HYDROXY Lab Routine Vitamin D deficiency Expected: 07/23/2021, Expires: 09/22/2021 [facility] Work Phone: Comment on above: Expected: 07/23/2021 , Expires: 09/22/2021 Start: 05-15-2021 Adult depression [facility] assessment DEPRESSION SCREENING [facility] Start: 05-02-2021 COVID-19 VACCINE (4 - Booster for Moderna series) COVID-19 VACCINE (4 - Booster for Moderna series) [facility] Start: 03-08-2021 ADVANCE DIRECTIVE DISCUSSION ADVANCE DIRECTIVE DISCUSSION [facility] Start: 03-08-2021 DEPRESSION ASSESSMENT DEPRESSION ASS ESSMENT [facility] Start: 11-05-2020 COLORECTAL CANCER SCREENING COLORECTAL CANCER SCREENING [facility] Start: 11-05-2020 FECAL OCCULT BLOOD FECAL OCCULT BLOO D [facility] Start: 11-01-2020 Hepatitis B screening URINE ALBUMIN:CREATININE RATIO [facility] Start: 03-15-2019 Hepatitis C antibody , confirmatory test DILATED RETINAL EXAM [facility] Start: 2006 Hepatitis B Vaccine (1 of 3 - Risk 3-dose series) Hepatitis B Vaccine (1 of 3 - Risk 3-dose series) [facility] Start: 2006 RSV Vaccine (1 - 1-d ose 60+ series) RSV Vaccine (1 - 1-dose 60+ series) [facility] Start: 09-30-1991 COLOGUARD (FIT-DNA) COLOGUARD (FIT-D NA) [facility] Start: 09-30-1991 Colonoscopy COLONOSCOPY [facility] Start: 09-30-[address] COLONOGRAPHY [facility] Start: 09-30-1991 SIGMOIDOSCOPY SIGMOIDOSCOPY [facility] Start: 1964 Anxiety Screening Anxiety Screening [facility] Start: 1964 BP CONTROLLED (<130/80) BP CONTROLLE D (<130/80) [facility] Start: 1964 Depression Screening Depression Scre ening [facility] Bacteria identified in Urine by Culture BACTERIAL CULTURE, URINE Microbiology Routine Urinary frequency Left flank pain 07/25/2024 8:26 AM EDT [facility] End: 11-18-2022 CBC panel - Blood by Automated count CBC Lab Routine Diabetes mellitus type 2 with complications (HCC) Every 6 months for 12 Occurrences starting 11/18/2021 until 11/18/2022 [facility] Work Phone: Comment on above: Every 6 months for 1 2 Occurrences starting 11/18/2021 until 11/18/2022 End: 02-18-2023 CBC panel - Blood by Automated count CBC Lab Routine Diabetes mellitus type 2 with complications (HCC) Every 6 months for 12 Occurrences starting 02/18/2022 until 02/18/2023 [facility] Work Phone: Comment on above: Every 6 months for 1 2 Occurrences starting 02/18/2022 until 02/18/2023 COLOGUARD COLOGUARD Lab Ro utine Colon cancer screening Ordered: 06/04/2022 [facility] Work Phone: Comment on above: Ordered: 06/04/2022 End: 11-18-2022 Comprehensive metabolic 2000 panel - Serum or Plasma COMP METABOLIC PANEL Lab Routine Diabetes mellitus type 2 with complications (HCC) Every 6 months for 12 Occurrences starting 11/18/2021 until 11/18/2022 [facility] Work Phone: Comment on above: Every 6 months for 1 2 Occurrences starting 11/18/2021 until 11/18/2022 End: 02-18-2023 Comprehensive metabolic 2000 panel - Serum or Plasma COMP METABOLIC PANEL Lab Routine Diabetes mellitus type 2 with complications (HCC) Every 6 months for 12 Occurrences starting 02/18/2022 until 02/18/2023 [facility] Work Phone: Comment on above: Every 6 months for 1 2 Occurrences starting 02/18/2022 until 02/18/2023 End: 11-18-2022 Hemoglobin A1c in Blood HGB A1C Lab Routine Diabetes mellitus type 2 with complications (HCC) Every 3 months for 24 Occurrences starting 11/18/2021 until 11/18/2022 [facility] Work Phone: Comment on above: Every 3 months for 2 4 Occurrences starting 11/18/2021 until 11/18/2022 End: 11-18-2022 Lipid 1996 panel - Serum or Plasma LIPID PANEL BASIC Lab Routine Diabetes mellitus type 2 with complications (HCC) Every 6 months for 12 Occurrences starting 11/18/2021 until 11/18/2022 [facility] Work Phone: Comment on above: Every 6 months for 1 2 Occurrences starting 11/18/2021 until 11/18/2022 End: 02-18-2023 Lipid 1996 panel - Serum or Plasma LIPID PANEL BASIC Lab Routine Diabetes mellitus type 2 with complications (HCC) Every 6 months for 12 Occurrences starting 02/18/2022 until 02/18/2023 [facility] Work Phone: Comment on above: Every 6 months for 1 2 Occurrences starting 02/18/2022 until 02/18/2023 Lipid 1996 panel - S ekith or Plasma [facility] End: 05-15-2023 GISELLE SCREENING GISELLE SCREENING Radiology Routine Breast cancer screening by mammogram 1 Occurrences starting 04/16/2022 until 05/15/2023 [facility] Work Phone: Comment on above: 1 Occurrences starti ng 04/16/2022 until 05/15/2023 Patient Education Stroke: Taking Medicines Stroke: Resources and Support Discharge Instructions for Stroke [facility] Work Phone: Patient referral [facility] Work Phone: End: 11-18-2022 Thyrotropin [Units/volume] in Serum or Plasma TSH BLD Lab Routine Diabetes mellitus type 2 with complications (HCC) Every 3 months for 24 Occurrences starting 11/18/2021 until 11/18/2022 [facility] Work Phone: Comment on above: Every 3 months for 2 4 Occurrences starting 11/18/2021 until 11/18/2022 End: 02-18-2023 Thyrotropin [Units/volume] in Serum or Plasma TSH BLD Lab Routine Diabetes mellitus type 2 with complications (HCC) Every 3 months for 24 Occurrences starting 02/18/2022 until 02/18/2023 [facility] Work Phone: Comment on above: Every 3 months for 2 4 Occurrences starting 02/18/2022 until 02/18/2023 UA DIP, URINE (POC) UA DIP, URIN E (POC) Lab Routine Urinary frequency Ordered: 09/03/2022 [facility] Work Phone: Comment on above: Ordered: 09/03/2022 UA DIP, URINE (POC) UA DIP, URIN E (POC) Lab Routine Urinary frequency Left flank pain Ordered: 07/25/2024 [facility] Work Phone: Comment on above: Ordered: 07/25/2024 Urine culture Urine Culture [facility] End: 08-24-2025 US Kidney - bilateral and Urinary bladder US KIDNEY/BLADDER Radiology Routine Urinary frequency Left flank pain 1 Occurrences starting 07/25/2024 until 08/24/2025 [facility] Comment on above: 1 Occurrences starti ng 07/25/2024 until 08/24/2025 End: 03-03-2025 US Thyroid gland US THYROID/PARATHYROID Radiology Routine Thyroid nodule 1 Occurrences starting 02/02/2024 until 03/03/2025 [facility] Comment on above: 1 Occurrences starti ng 02/02/2024 until 03/03/2025 US Thyroid gland US THYROID/PARA THYROID Radiology Routine Thyroid nodule 02/08/2024 8:05 AM EST [facility] Work Phone: [facility] Immunizations Immunization Date Immunization Notes Care Provider [facility] 12-01-2023 SARS-CoV-2 (COVID-19 ) [id number] JUNE STORY DENTAL LABORATORY TECHNICIAN-ELECTRONIC COURT RECORDER [facility] 11-25-2023 influenza virus vacc ine, unspecified formulation JUNE [employer]ORY DENTAL LABORATORY TECHNICIAN-ELECTRONIC COURT RECORDER [facility] 01-13-2023 SARS-CoV-2 (COVID-19 ) [id number] JUNE STORY DENTAL LABORATORY TECHNICIAN-ELECTRONIC COURT RECORDER [facility] 11-30-2022 influenza virus vacc ine, unspecified formulation Ia Nurse Work Phone: [facility] 12-01-2021 SARS-CoV-2 (CV19)[id number] bivalent vac ROMULO STORY DENTAL LABORATORY TECHNICIAN-ELECTRONIC COURT RECORDER [facility] 11-21-2021 influenza virus vacc ine, unspecified formulation [facility] DENTAL LABORATORY TECHNICIAN-ELECTRONIC COURT RECORDER [facility] 07-28-2021 SARS-CoV-2 (COVID-19 ) [id number] vaccine [facility] DENTAL LABORATORY TECHNICIAN-ELECTRONIC COURT RECORDER [facility] 01-01-2021 influenza virus vacc ine, unspecified formulation [facility] DENTAL LABORATORY TECHNICIAN-ELECTRONIC COURT RECORDER [facility] 12-30-2020 SARS-CoV-2 (COVID-19 ) [id number] vaccine [facility] DENTAL LABORATORY TECHNICIAN-ELECTRONIC COURT RECORDER [facility] Comment on above: Result Comment: 2023: [id number] 08-09-2020 zoster vaccine recombinant Ia Nurse Work Phone: [facility] Work Phone: 06-05-2020 COVID-19 vaccine, fu ll dose (MODERNA) Ia Nurse Work Phone: [facility] 05-08-2020 COVID-19 vaccine, fu ll dose (MODERNA) Ia Nurse Work Phone: [facility] 01-17-2020 tetanus toxoid, redu janelle diphtheria toxoid, and acellular pertussis vaccine, adsorbed Mi Nurse Work Phone: [facility] Work Phone: 12-18-2019 zoster vaccine recombinant Ia Nurse Work Phone: [facility] Work Phone: 11-21-2019 influenza, injectabl e, quadrivalent, preservative free [facility] Work Phone: [facility] 11-21-2019 influenza, seasonal, injectable Dr. Jones Velasquez Work Phone: [facility] 11-17-2019 influenza virus vacc ine, unspecified formulation ROMULO STORY DENTAL LABORATORY TECHNICIAN-ELECTRONIC COURT RECORDER [facility] 11-21-2018 influenza virus vacc ine, unspecified formulation JUNE STORY DENTAL LABORATORY TECHNICIAN-ELECTRONIC COURT RECORDER [facility] 11-06-2018 influenza, injectabl e, quadrivalent, preservative free [facility] Work Phone: [facility] 11-06-2018 influenza, seasonal, injectable Dr. Jones Velasquez Work Phone: [facility] 11-11-2017 influenza virus vacc ine, unspecified formulation ROMULO STORY DENTAL LABORATORY TECHNICIAN-ELECTRONIC COURT RECORDER [facility] 11-12-2016 influenza virus vacc ine, unspecified formulation ROMULO STORY DENTAL LABORATORY TECHNICIAN-ELECTRONIC COURT RECORDER [facility] 12-06-2015 influenza virus vacc ine, unspecified formulation ROMULO STORY DENTAL LABORATORY TECHNICIAN-ELECTRONIC COURT RECORDER [facility] 12-06-2015 influenza, high dose seasonal, preservative-free Mi Nurse Work Phone: [facility] Work Phone: 11-27-2014 influenza virus vacc ine, unspecified formulation JUNE STORY DENTAL LABORATORY TECHNICIAN-ELECTRONIC COURT RECORDER [facility] 11-13-2014 influenza virus vacc ine, unspecified formulation JUNE STORY DENTAL LABORATORY TECHNICIAN-ELECTRONIC COURT RECORDER [facility] 11-13-2014 influenza, high dose seasonal, preservative-free Mi Nurse Work Phone: [facility] 09-25-2014 pneumococcal conjuga te vaccine, 13 valent Ia Nurse Work Phone: [facility] 01-29-2014 pneumococcal polysaccharide vaccine, 23 valent Ia Nurse Work Phone: [facility] Work Phone: 11-29-2012 zoster vaccine, live Mi Nurs e Work Phone: [facility] Work Phone: 01-12-2011 tetanus and diphther ia toxoids, adsorbed, preservative free, for adult use (2 Lf of tetanus toxoid and 2 Lf of diphtheria toxoid) Ia Nurse Work Phone: [facility] Work Phone: Payers Date Payer Category Payer Self-pay [id number] 2021 Medicare AET MEDICARE A ETNA MEDICARE PPO [id number] 2021-Present [phone] [address] [place] [address] PP [id number] 2021 Medicare AETNA MEDICARE A ETNA MEDICARE PPO [id number] 2021-Present [phone] [address] [place] [address] PPO [id number] 2021 Medicare (Managed Care) [facility] [id number] 2021 Private Health Insurance 101 [id number] 1945 Unknown [id number] Unknown [id number] Unknown [id number] Social History Date Type Detail Facility Start: 02-15-2017 End: 03-16-2023 Tobacco smoking status NHIS Never smoked tobacco [facility] Work Phone: Start: 05-14-2021 End: 07-25-2024 Alcohol intake Current drinker of alcohol (finding) [facility] Start: 03-21-2019 End: 07-13-2022 History SDOH Alcohol Frequency 2 [facility] Start: 03-21-2019 End: 07-13-2022 History SDOH Alcohol Std Drinks 1 [facility] Start: 10-11-2008 History SDOH Alcohol Comment rarely [facility] Start: 11-07-2019 History SDOH Social Connections Phone 4 [facility] Start: 03-21-2019 End: 07-13-2022 History SDOH Social Connections Sabianism 3 [facility] Start: 03-21-2019 End: 07-13-2022 History SDOH Financial 5 [facility] Start: 11-07-2019 Education 19 [facility] Start: 1945 Sex Assigned At Not on file [facility] Start: 05-31-2021 End: 11-21-2021 Exposure to SARS-CoV-2 (event) Not sure [facility] Work Phone: Start: 02-15-2017 End: 11-21-2021 Tobacco use and exposure Smokeless tobacco non-user [facility] Work Phone: Start: 08-25-2022 End: 09-03-2022 Tobacco smoking status NHIS Unknown if ever smoked [facility] Start: 02-07-2020 None [facility] Start: 03-15-2019 Spouse/ Significant Other [facility] Start: 1945 Sex Assigned At Female [facility] Start: 08-28-2022 Non-smoker [facility] Start: 11-07-2019 End: 07-13-2022 History of Social function [facility] Start: 11-07-2019 End: 07-13-2022 Social connection and isolation panel [facility] Active Member of [facility] bs or Organizations Not on file [facility] Are you now , , , , never or living with a partner? [facility] How often to you hav e a drink containing alcohol? Monthly or less [facility] How many standard dr inks containing alcohol do you have on a typical day? 1 or 2 [facility] How often do you hav e 6 or more drinks on 1 occasion? Never [facility] Do you feel stress - tense, restless, nervous, or anxious, or unable to sleep at night because your mind is troubled all the time - these days [OSQ] Not at all [facility] (I/We) worried wheth er (my/our) food would run out before (I/we) got money to buy more. Never true [facility] In the past 12 month s, was there a time when you were not able to pay the mortgage or rent on time? No [facility] Medical Equipment Procedure Code Equipment Code Equipment Original Text Equipment Identifier Dates [id number], [id number], [id number], [id number] Start: 09-18-2022 Comment on above: Test blood sugar(s) 2 times daily. Dx: Type 2 DM - Uncontrolled E11.65 Insulin: No Test blood sugar(s) two times times daily. Dx: Other DM Code E11.65 Insulin: No Goals Date Patient Goal Desired Activity /State Functional Status Date Assessment Result Facility 01-21-2024 Functional Status Sequential Com pression Device bilateral knee high removed/off [facility] 01-21-2024 Functional Status Single point cane [facility] 01-21-2024 Functional Status Single level home [facility] 01-21-2024 Functional Status Door open, Non-Slip footwear, Room check performed, Resin Maker at bedside [facility] 01-21-2024 Functional Status [facility] 01-21-2024 Functional Status Shashank huizar [facility] 01-20-2024 Functional Status Shashank huizar [facility] 08-28-2022 Functional status Chair [facility] Work Phone: 09-25-2014 Are you deaf, or do you have serious difficulty hearing No 09/25/2014 9:38 AM Jesenia Diop RN No [facility] 09-25-2014 Are you blind, or do you have serious difficulty seeing, even when wearing glasses No 09/25/2014 9:38 AM Jesenia Diop RN No [facility] 09-25-2014 Do you have serious difficulty walking or climbing stairs No 09/25/2014 9:38 AM Jesenia Diop RN No [facility] 09-25-2014 Do you have difficul ty dressing or bathing No 09/25/2014 9:38 AM Jesenia Diop RN No [facility] 09-25-2014 Because of a physica l, mental, or emotional condition, do you have difficulty doing errands alone such as visiting a physician's office or shopping No 09/25/2014 9:38 AM Jesenia Diop RN No [facility] Mental Status Date Assessment Result Facility 01-21-2024 Mental Status Oriented x 4 [facility] 01-21-2024 Mental Status [facility] 01-20-2024 Mental Status [facility] 08-28-2022 Cognitive function Voice/Name [facility] Work Phone: 08-25-2022 Cognitive function Voice/Name [facility] Work Phone: 09-25-2014 Because of a physica l, mental, or emotional condition, do you have serious difficulty concentrating, remembering, or making decisions No 09/25/2014 9:38 AM Jesenia Diop RN No [facility] Clinical Notes 09-25-2014 to 08-16-2024 Telephone [...] Please advise. Thank you. Tereza Leung MA. [facility] 08-16-2024 Miscellaneous Notes Patient has been [...] Tereza Leung MA. documented in this encounter [facility] 08-14-2024 Note HNO ID: [id number] Author: ?, ?, ? Service: ? Author Type: LICENSED NURSE Type: Progress Notes Filed: 08/14/2024 11:43 Note Text: Patient presents for B-12 injection. Denies any problems at this time. Patient instructed on any SE of medication, verbalized understanding and agreed to proceed with treatment. Tolerated injection well. Agueda Sabillon LPN [facility] 08-14-2024 History of Presen t illness Narrative Patient presents for B-12 injection. Denies any problems at this time. Patient instructed on any SE of medication, verbalized understanding and agreed to proceed with treatment. Tolerated injection well. Agueda Sabillon LPN documented in this encounter [facility] 07-25-2024 Note HNO ID: [id number] Author: JONES VELASQUEZ MD Service: ? Author [...] with a UTI after a flight to [place] during which she did not drink enough [...] patient to schedule if pain persists. 3. [facility] (current) use of oral hypoglycemic drugs (Z79.84) Currently on Jardiance, which may increase susceptibility to UTIs. Patient has discontinued Jardiance since July 23 due to concerns about recurrent UTIs. - Discussed the potential link between Jardiance and increased UTI risk. - Advised patient to monitor for any recurrence of UTI symptoms. Voice recognition softwar (more content not included)... [facility] 07-25-2024 History of Presen t illness Narrative [...] with a UTI after a flight to [place] during which she did not drink enough [...] patient to schedule if pain persists. 3. [facility] (current) use of oral hypoglycemic drugs (Z79.84) [...] excuse any unintended typographical errors. Recording using [employer] software for draft documentation of the visit was discussed with the patient/authorized technical services representative; all questions welcomed and answered. Patient/authorized technical services representative agreed to proceed Jones Velasquez MD documented in this encounter [facility] 07-25-2024 Instructions Jones Velasquez MD - [...] questions or concerns. documented in this encounter [facility] 07-17-2024 Note HNO ID: [id number] Author: ?, ?, ? Service: ? Author Type: LICENSED NURSE Type: Progress Notes Filed: 07/17/2024 11:42 Note Text: Patient presents for B-12 injection. Denies any problems at this time. Patient instructed on any SE of medication, verbalized understanding and agreed to proceed with treatment. Tolerated injection well. Agueda Sabillon LPN [facility] 07-17-2024 History of Presen t illness Narrative Patient presents for B-12 injection. Denies any problems at this time. Patient instructed on any SE of medication, verbalized understanding and agreed to proceed with treatment. Tolerated injection well. Agueda Sabillon LPN documented in this encounter [facility] 06-19-2024 Note HNO ID: [id number] Author: ?, ?, ? Service: ? Author Type: LICENSED NURSE Type: Progress Notes Filed: 06/19/2024 11:58 Note Text: Patient presents for B-12 injection. Denies any problems at this time. Patient instructed on any SE of medication, verbalized understanding and agreed to proceed with treatment. Tolerated injection well. Agueda Sabillon LPN [facility] 06-19-2024 History of Presen t illness Narrative Patient presents for B-12 injection. Denies any problems at this time. Patient instructed on any SE of medication, verbalized understanding and agreed to proceed with treatment. Tolerated injection well. Agueda Sabillon LPN documented in this encounter [facility] 06-09-2024 Note HNO ID: [id number] Author: ASTRID MUSE APRN.ELECTRONIC COURT RECORDER Service: ? Author Type: Nurse Practitioner Type: [...] Disease Visit due (more content not included)... [facility] 06-09-2024 History of Presen t illness Narrative [...] Astrid Muse APRN.CNP documented in this encounter [facility] 05-22-2024 Note HNO ID: [id number] Author: ?, ?, ? Service: ? Author Type: LICENSED NURSE Type: Progress Notes Filed: 05/22/2024 11:40 Note Text: Patient presents for B-12 injection. Denies any problems at this time. Patient instructed on any SE of medication, verbalized understanding and agreed to proceed with treatment. Tolerated injection well. Agueda Sabillon LPN [facility] 05-22-2024 History of Presen t illness Narrative Patient presents for B-12 injection. Denies any problems at this time. Patient instructed on any SE of medication, verbalized understanding and agreed to proceed with treatment. Tolerated injection well. Agueda Sabillon LPN documented in this encounter [facility] 04-28-2024 Note HNO ID: [id number] Author: ASTRID MUSE APRN.ELECTRONIC COURT RECORDER Service: ? Author Type: Nurse Practitioner Type: [...] Density Screening Com (more content not included)... [facility] 04-28-2024 History of Presen t illness Narrative [...] Astrid Muse APRN.CNP documented in this encounter [facility] 04-10-2024 Note HNO ID: [id number] Author: JUSTIN CHRISTOPHER MD Service: ? Author [...] and the patient tolerated the procedure well. [facility] 04-10-2024 History of Presen t illness Narrative [...] Melinda Martinez RN documented in this encounter [facility] 04-03-2024 Instructions Melinda Martinez RN - 04/03/2024 1:36 PM EST The following instructions are important for you related to your office visit today with the [facility]. Instructions After THYROID FINE NEEDLE [...] you have any questions or concerns @ [phone]. Please make an appointment to follow up in one week with your physician and [facility] If you note any additional difficulties, questions, or concerns, you should contact our office immediately @ [phone] and ask to be transferred to the General Surgery department. documented in this encounter [facility] 04-03-2024 Note HNO ID: [id number] Author: MELINDA MARTINEZ RN Service: ? Author [...] Visit completed when applicable. Melinda Martinez RN [facility] 03-20-2024 Note HNO ID: [id number] Author: JUSTIN CHRISTOPHER MD Service: ? Author Type: Physician Type: Progress Notes Filed: 03/21/2024 08:56 Note Text: HISTORY AND PHYSICAL Britney [place] 1945 REFERRING PHYSICIAN: Astrid Muse APRN.ELECTRONIC COURT RECORDER CHIEF COMPLAINT: Consult (Thyroid Nodule) HPI: The [...] mcg INTRAMUSCULAR q 4 WEEKS Older, FERCHO Resendiz.ELECTRONIC COURT RECORDER 1,000 mcg at 03/20/24 1129 ALLERGIES: Darvon [...] week post operatively. Justin Christopher III, MD [facility] 03-20-2024 History of Presen t illness Narrative HISTORY AND PHYSICAL Britney [place] 1945 REFERRING PHYSICIAN: Astrid Muse APRN.ELECTRONIC COURT RECORDER CHIEF COMPLAINT: Consult (Thyroid Nodule) HPI: The [...] mcg INTRAMUSCULAR q 4 WEEKS Astrid Muse APRN.ELECTRONIC COURT RECORDER 1,000 mcg at 03/20/24 1129 ALLERGIES: Darvon [...] or denies gout. documented in this encounter [facility] 03-20-2024 Note HNO ID: [id number] Author: AYLIN VELAZQUEZ LPN Service: ? Author [...] knee/foot trouble, NOTES arthritis, or denies gout. [facility] 03-20-2024 Note HNO ID: [id number] Author: AGUEDA SABILLON LPN Service: ? Author Type: LICENSED NURSE Type: Progress Notes Filed: 03/20/2024 11:31 Note Text: Patient presents for B-12 injection. Denies any problems at this time. Patient instructed on any SE of medication, verbalized understanding and agreed to proceed with treatment. Tolerated injection well. Agueda Sabillon LPN [facility] 03-20-2024 History of Presen t illness Narrative Patient presents for B-12 injection. Denies any problems at this time. Patient instructed on any SE of medication, verbalized understanding and agreed to proceed with treatment. Tolerated injection well. Agueda Sabillon LPN documented in this encounter [facility] 03-15-2024 Note HNO ID: [id number] Author: ASTRID MUSE APRN.ELECTRONIC COURT RECORDER Service: ? Author Type: Nurse Practitioner Type: [...] Completed Shingrix Vac (more content not included)... [facility] 03-15-2024 History of Presen t illness Narrative [...] Astrid Muse APRN.SHERIDAN documented in this encounter [facility] 02-21-2024 Note HNO ID: [id number] Author: AGUEDA SABILLON LPN Service: ? Author Type: LICENSED NURSE Type: Progress Notes Filed: 02/21/2024 11:34 Note Text: Patient presents for B-12 injection. Denies any problems at this time. Patient instructed on any SE of medication, verbalized understanding and agreed to proceed with treatment. Tolerated injection well. Agueda Sabillon LPN [facility] 02-21-2024 History of Presen t illness Narrative Patient presents for B-12 injection. Denies any problems at this time. Patient instructed on any SE of medication, verbalized understanding and agreed to proceed with treatment. Tolerated injection well. Agueda Sabillon LPN documented in this encounter [facility] 02-14-2024 Telephone encounter Note Prescription Refill [...] Alexis LPN February 14, 2024 4:31 PM [facility] 02-14-2024 Miscellaneous Notes Prescription Refill Information [...] 2024 4:31 PM documented in this encounter [facility] 02-14-2024 Miscellaneous Notes Patient scheduled for nurse visit 02/21/24 to receive B-[address] order at this time. Agueda Sabillon LPN documented in this encounter [facility] 02-14-2024 Telephone encounter Note Patient scheduled for nurse visit 02/21/24 to receive B-[address]. [address] order at this time. Agueda Sabillon LPN [facility] 02-10-2024 Telephone encounter Note Pt called back and was transferred to assistant real estate manager. Gladis Vallecillo LPN [facility] 02-10-2024 Miscellaneous Notes Pt called back and was transferred to assistant real estate manager. Gladis Vallecillo LPN Pt called and is [...] Astrid Muse APRN.SHERIDAN documented in this encounter [facility] 02-10-2024 Telephone encounter Note Pt called and is notified of providers results and instructions. Pt voices understanding. Pt will call back in to schedule appointment as her is out of the car and has their calendar. Sobia Quiñonez, RN [facility] 02-10-2024 Telephone encounter Note Thyroid US recommending aspiration/biopsy of thyroid nodule. Consult sent to general surgery to have this scheduled and completed. Thank you Astrid Muse APRN.CNP [facility] 02-09-2024 Telephone encounter Note I reviewed hospital records. HgbA1c has improved to 7.1, Imaging reviewed and she needs to schedule already ordered thyroid US to further evaluated incidental finding of thyroid nodule. Slightly anemic while at hospital but probably from fluids. We will recheck this at a later date. current magnesium level normal. Thank you Astrid Muse APRN.CNP [facility] 02-08-2024 History of Presen t illness [...] PATIENT PRESENTS WITH AN IMPLANTABLE OR ATTACHED PITCHING COACH: No RADIOLOGY DEPARTMENT: Ultrasound PERIPHERAL IV DATA: Not applicable SIGNED BY: Clarissa Philip RDMS [facility] February 08, 2024 1:35 PM documented in this encounter [facility] 02-08-2024 Note HNO ID: [id number] Author: CLARISSA PHILIP RDMS Service: ? Author Type: Relief Mate Type: Progress Notes Filed: 02/08/2024 13:36 Note [...] PATIENT PRESENTS WITH AN IMPLANTABLE OR ATTACHED PITCHING COACH: No RADIOLOGY DEPARTMENT: Ultrasound PERIPHERAL IV DATA: Not applicable SIGNED BY: Clarissa Philip RDMS [facility] February 08, 2024 1:35 PM [facility] 02-02-2024 Note HNO ID: [id number] Author: ASTRID MUSE APRN.ELECTRONIC COURT RECORDER Service: ? Author Type: Nurse Practitioner Type: Progress Notes Filed: 02/02/2024 13:41 Note Text: CC: Patient presents with: Recheck: ER Follow up UTI HPI Britney [place] is a 78 year old female who presents today for Hospital follow-up. Patient's discharge instructions provided but no other records available. Facility: [facility] Date of visit: 01/19 - 01/20 Reason [...] Colorectal Cancer Screening Discontinued DATA REVIEWED: requesting [facility] records to be fully reviewed. ASSESSMENT/PLAN: [...] unspecified - ICD9 (more content not included)... [facility] 02-02-2024 History of Presen t illness Narrative CC: Patient presents with: Recheck: ER Follow up UTI HPI Britney [place] is a 78 year old female who presents today for Hospital follow-up. Patient's discharge instructions provided but no other records available. Facility: [facility] Date of visit: 01/19 - 01/20 Reason [...] Colorectal Cancer Screening Discontinued DATA REVIEWED: requesting [facility] records to be fully reviewed. ASSESSMENT/PLAN: [...] Astrid Muse APRN.SHERIDAN documented in this encounter [facility] 01-26-2024 Note . MICRO - Microbiology [...] Locations *1: This test was performed at: [facility], [address] [place] [address], [facility] , [facility] 01-26-2024 Note . MICRO - Microbiology PROCEDURE: [...] Locations *1: This test was performed at: [facility], [address] [place] [address], [address]- , [facility] 01-24-2024 Note HNO ID: [id number] Author: AGUEDA SABILLON LPN Service: ? Author Type: LICENSED NURSE Type: Progress Notes Filed: 01/24/2024 13:18 Note Text: Patient presents for B-12 injection. Denies any problems at this time. Patient instructed on any SE of medication, verbalized understanding and agreed to proceed with treatment. Tolerated injection well. Agueda Sabillon LPN [facility] 01-24-2024 History of Presen t illness Narrative Patient presents for B-12 injection. Denies any problems at this time. Patient instructed on any SE of medication, verbalized understanding and agreed to proceed with treatment. Tolerated injection well. Agueda Sabillon LPN documented in this encounter [facility] 01-22-2024 Note . MICRO - Microbiology [...] Locations *1: This test was performed at: [facility], [address] [place] [address], [id number]- , [facility] 01-21-2024 Hospital Discharg e instructions Patient Education 01/21/2024 14:15:20 Urinary Tract Infection, Adult, Dgmx-ve-Wkmo Urinary Tract Infection, Adult A urinary tract [...] Follow these instructions at home: Medicines Take dlfm-doo-ijaqndm and prescription medicines only as told by [...] 08/10/2008 Document Revised: 02/09/2019 Document Reviewed: 09/01/2018 [employer] Patient Education 2020 [employer]. 01/21/2024 14:15:14 Nausea and Vomiting, Adult, Qpam-im-Hgot Nausea and Vomiting, Adult Nausea is feeling [...] fruit juice). ?Low-calorie sports drinks. Eat bland, yuiy-oj-ajkyrb foods in small amounts as you are able, such as: ?Bananas. ?Applesauce. ?Rice. ?Low-fat (lean) meats. ?Sargent. ?Crackers. Avoid drinking fluids that have a lot of sugar or caffeine in them. This includes energy drinks, sports drinks, and soda. Avoid alcohol. Avoid spicy or fatty foods. General instructions Take qvev-ebm-xbhxoqm and prescription medicines only as told by your doctor. Drink enough fluid to keep your pee (urine) pale yellow. Wash your hands often with soap and water. If you cannot use soap and water, use hand line service supervisor. Make sure that all people in your [...] too much water in your body. Take qntf-cqk-bticaqa and prescription medicines only as told by [...] 08/10/2008 Document Revised: 06/16/2019 Document Reviewed: 08/02/2018 [employer] Patient Education 2020 [employer]. Follow Up Care 01/20/2024 20:27:43 With:Follow up with primary care provider Address: When:3-5 days Comments:Please call to schedule your post-hospital follow-up appointment. [facility] 01-21-2024 Note Discharge Instructions Thank you for allowing [facility] to assist you with your healthcare needs. The following is important discharge information regarding your hospital visit. Your Care Team [facility] Your Diagnosis Brain TIA Hypertension [...] 12 hours Duration: 5 Days Pickup at [facility] 1811 Unchanged apixaban (Eliquis 5 mg [...] TABLET BY MOUTH TWICE DAILY Pharmacy Information [phone]: [phone] [place], [place] [phone] Please take this list to your next [...] Follow these instructions at home: Medicines Take fzhw-nbz-ghdbkll and prescription medicines only as told by [...] 08/10/2008 Document Revised: 02/09/2019 Document Reviewed: 09/01/2018 [employer] Patient Education 2020 [employer]. Nausea and Vomiting, Adult Nausea is feeling [...] juice). ? Low-calorie sports drinks. Eat bland, tbwl-uy-illalx foods in small amounts as you are able, such as: ? Bananas. ? Applesauce. ? Rice. ? Low-fat (lean) meats. ? Sargent. ? Crackers. Avoid drinking fluids that have a lot of sugar or caffeine in them. This includes energy drinks, sports drinks, and soda. Avoid alcohol. Avoid spicy or fatty foods. General instructions Take nrev-ilo-ktdmylp and prescription medicines only as told by your doctor. Drink enough fluid to keep your pee (urine) pale yellow. Wash your hands often with soap and water. If you cannot use soap and water, use hand line service supervisor. Make sure that all people in your [...] too much water in your body. Take ohmc-haf-nwkaxle and prescription medicines only as told by [...] 08/10/2008 Document Revised: 06/16/2019 Document Reviewed: 08/02/2018 [employer] Patient Education 2020 [employer] Additional Information VACCINATE! IT SAVES LIVES! Members of the community who have not yet received the COVID-19 vaccine and would like to receive it can visit one of [facility] vaccine clinics. There are many vaccine clinic locations within the [facility]. For locations and available times, please visit [email or web address].[place].gov/. It is important to note that some COVID mobile vaccine clinics are held outdoors and may be canceled in rainy or stormy conditions. To learn more about pediatric vaccinations (ages 5-11), we invite you to visit the [facility] [facility] webpage. [email or web address] [email or web address] To learn more about the COVID-19 vaccine, we invite you to visit the CDC website for a list of frequently asked questions.https://www.cdc.gov/co ronavirus/2019-ncov/vaccines/faq .html [employer] Patient Portal Access Instructions: Stay connected with your healthcare team and access your personal medical information anytime with the [facility] Patient Portal. Please follow the directions below to create your [employer] account: 1.Access the email account you provided upon registration to the hospital/physician office.2.Look for an invitation email from [facility].3.Open the email and access the invitation link: Accept Invitation to [facility].4.Fill in the required pillai to create your account. To access your account, visit [email or web address]. Click the blue button labeled Access Patient [...] you will allow to register on the [facility] Patient Portal for access to your information. You can also access the [facility] Patient Portal on the [facility] tasia. Simply click on Patient Portal and then log into your account. If you would like to receive a full copy of your medical records, please contact the [facility] Medical Records Department by calling [phone], Wednesday through Wednesday between 8 a.m. and [...] Call your local pharmacy or go to [email or web address] to find one close to you.3.Make use of household items: Use cat litter or old coffee grounds to dispose medications if other options are not available. Mix your drugs with these household products, seal them in an airtight container and throw it into the garbage. Call [facility]: [phone] to be sure your drugs can be [...] Patient Education Materials Urinary Tract Infection, Adult, Ebro-zg-Wlzs Nausea and Vomiting, Adult, Otzv-mq-Qpxk Medication Leaflets My discharge plan and instructions have been reviewed and explained to me and I,BRITNEY CANADA understand my current condition and have read and understand these discharge instructions. I have received a written copy of the plan/instructions. If I have questions, I am aware that I should contact my doctor. Patient/Tin Dipper Signature: Date/Time: Relationship to Patient: Witness Name/Signature: Date/Time: [facility] 01-21-2024 Evaluation + Plan note Extrac rebeca from: Title:History and Physical Author:BRISEYDA HALL APRN-ELECTRONIC COURT RECORDER Date:01/21/24 1. Brain TIA Acute, new onset [...] Diagnostic Tests Pending * Urine Culture 01/21/24 [facility] 11-15-2024 Note* Exam Date Time Procedure Performing Provider Status 01/21/24 12:37 PM Echocardiogram, Adul t with Bubble Study- Auth (Verified) [facility] 11-15-2024 Note ORIGINAL EXAMINATION: MRI OF THE BRAIN WITHOUT FMOJCZPN93/15/2024 11:27 am MR BRAIN W/O CONTRAST TECHNIQUE: [...] 11:45:49 AM Ordering Provider: JUNE [facility]11-15-2024 Note Date of Service 01/21/2024 Chief Complaint [...] CVA and type 2 diabetes, presented to [facility] emergency department with the chief complaint of nausea and vomiting. Patient states that she started to feel unwell on Wednesday morning about 0700. Patient adds that she has been feeling dizzy lately but denies a room spinning sensation. Patient states that she just returned from a cruise to [facility] and returned home yesterday afternoon. The dizziness [...] by BRISEYDA HALL on 01/21/2024 01:07 PM [facility]11-14-2024 Note ORIGINAL EXAMINATION: CTA OF THE NECK; [...] Sign Date: 01/20/2024 11:16:50 PM Ordering Provider: [facility]11-14-2024 Note ORIGINAL EXAMINATION: CTA OF THE NECK; [...] Sign Date: 01/20/2024 11:16:50 PM Ordering Provider: [facility]11-14-2024 Note ORIGINAL EXAMINATION: CT OF THE HEAD [...] Date: 01/20/2024 10:13:56 PM Ordering Provider: SHAWN [facility]11-14-2024 Note ORIGINAL EXAMINATION: ONE XRAY VIEW OF [...] Date: 01/20/2024 9:52:42 PM [facility]ing [facility] Note Sinus rhythm Atrial premature complex Inferior infarct, old Consider anterior infarct Electronic Signature: LEE SHAWN DO 01/20/2024 21:17:38[facility] 10-21-2024 NoteHNO ID: [id number] Author: AGUEDA SABILLON LPN Service: ? Author Type: LICENSED NURSE Type: Progress Notes Filed: 12/27/2023 13:13 Note Text: Patient presents for B-12 injection. Denies any problems at this time. Patient instructed on any SE of medication, verbalized understanding and agreed to proceed with treatment. Tolerated injection well. Agueda Sabillon [facility]10-21-2024 History of Present illness Narrative* Agueda Sabillon LPN - 12/27/2023 1:07 PM EDT Patient presents for B-12 injection. Denies any problems at this time. Patient instructed on any SEof medication, verbalized understanding and agreed to proceed with treatment. Tolerated injection well. Agueda Sabillon LPN documented in this encounterL[facility]09-23-2024 NoteHNO ID: [id number] Author: AGUEDA SABILLON LPN Service: ? Author Type: LICENSED NURSE Type: Progress Notes Filed: 11/29/2023 13:13 Note Text: Patient presents for B-12 injection. Denies any problems at this time. Patient instructed on any SE of medication, verbalized understanding and agreed to proceed with treatment. Tolerated injection well. Agueda Sabillon [facility]09-23-2024 History of Present illness Narrative* Agueda Sabillon LPN - 11/29/2023 1:01 PM EDT Patient presents for B-12 injection. Denies any problems at this time. Patient instructed on any SEof medication, verbalized understanding and agreed to proceed with treatment. Tolerated injection well. Agueda Sabillon LPN documented in this encounterLima City Hospital08-26-2024 NoteHNO ID: [id number] Author: AGUEDA SABILLON LPN Service: ? Author Type: LICENSED NURSE Type: Progress Notes Filed: 11/01/2023 13:34 Note Text: Patient presents for B-12 injection. Denies any problems at this time. Patient instructed on any SE of medication, verbalized understanding and agreed to proceed with treatment. Tolerated injection well. [facility] History of Present illness Narrative* Agueda Sabillon LPN - 11/01/2023 1:15 PM EDT Patient presents for B-12 injection. Denies any problems at this time. Patient instructed on any SEof medication, verbalized understanding and agreed to proceed with treatment. Tolerated injection well. Agueda Sabillon LPN documented in this encounterLima City Hospital08-21-2024 NoteHNO ID: [id number] Author: ASTRID MUSE APRN.[facility] Service: ? Author Type: Nurse Practitioner [...] cholesterol most of the time. Goes to [facility] yearly for routine exam. Last [...] due on 03/08 (more content not included)... [facility]08-21-2024 History of Present illness Narrative* Astrid Muse APRN.ELECTRONIC COURT RECORDER - 10/27/2023 10:09 AM EDT CC: Patient [...] cholesterol most of the time. Goes to [facility] yearly for routine exam. Last [...] plan. Astrid Muse APRN.CNP documented in this encounterLima City Hospital08-19-2024 Telephone encounter Note * Telephone Encounter - Chantale Alves MA - 10/25/2023 8:50 AM EDT Patient notified. [facility]08-19-2024 Miscellaneous Notes* Telephone Encounter - Chantale [...] pt and place orders. documented in this encounterLima City Hospital08-19-2024 Telephone encounter Note * Telephone Encounter - Astrid Muse APRN.CNP - 10/25/2023 7:27 AM EDT Non fasting blood work orders placed. Thank you Astrid Muse APRN.CNP [facility]08-16-2024 Telephone encounter Note* Telephone Encounter - Jodi Chung - 10/22/2023 10:39 AM EDT Pt wanting to know if there are labs due before appointment 10/27/23. Please advise pt and place orders. [facility] Work Phone: 1(312) 239-163808-01-2024 Telephone encounter Note* Telephone Encounter - Renetta [...] Renetta Allred October 07, 2023 12:36 PM [facility]08-01-2024 Miscellaneous Notes* Telephone Encounter - Renetta [...] once daily in the morning Renetta Wilson [facility] October 07, 2023 12:36 PM documented in this encounterLima City Hospital07-29-2024 NoteHNO ID: [id number] Author: AGUEDA SABILLON LPN Service: ? Author Type: LICENSED NURSE Type: Progress Notes Filed: 10/04/2023 13:09 Note Text: Patient presents for B-12 injection. Denies any problems at this time. Patient instructed on any SE of medication, verbalized understanding and agreed to proceed with treatment. Tolerated injection well. [facility] History of Present illness Narrative* Agueda Sabillon LPN - 10/04/2023 12:59 PM EDT Patient presents for B-12 injection. Denies any problems at this time. Patient instructed on any SEof medication, verbalized understanding and agreed to proceed with treatment. Tolerated injection well. Agueda Sabillon LPN documented in this encounterLima City Hospital07-02-2024 History of Present illness Narrative* Agueda Sabillon LPN - 09/07/2023 10:12 AM EDT Patient presents for B-12 injection. Denies any problems at this time. Patient instructed on any SEof medication, verbalized understanding and agreed to proceed with treatment. Tolerated injection well. Agueda Sabillon LPN documented in this encounterLima City Hospital06-05-2024 Telephone encounter Note * Telephone Encounter [...] 10/27/2023 Please advise. Thank you. Aretha Campuzano. [facility]06-05-2024 Miscellaneous Notes* Telephone Encounter - Aretha [...] Thank you. Aretha Campuzano. documented in this encounterLima City Hospital06-03-2024 Telephone encounter Note * Telephone Encounter [...] today. Please advise. Thank you. Jodi Allred. [facility] Work Phone: [phone] Miscellaneous Notes* Telephone Encounter - Jodi Sanchez [...] Thank you. Jodi Allred. documented in this encounterLima City Hospital05-24-2024 History of Present illness Narrative* Agueda Sabillon LPN - 07/30/2023 10:59 AM EDT Patient presents for B-12 injection. Denies any problems at this time. Patient instructed on any SEof medication, verbalized understanding and agreed to proceed with treatment. Tolerated injection well. Agueda Sabillon LPN documented in this encounterLima City Hospital04-29-2024 History of Present illness Narrative* Agueda Sabillon LPN - 07/05/2023 1:41 PM EDT Patient presents for B-12 injection. Denies any problems at this time. Patient instructed on any SEof medication, verbalized understanding and agreed to proceed with treatment. Tolerated injection well. Agueda Sabillon LPN documented in this encounterLima City Hospital04-24-2024 Telephone encounter Note * Telephone Encounter [...] Please advise. Thank you. Grace Luz LPN. [facility]04-24-2024 Miscellaneous Notes* Telephone Encounter - Grace [...] you. Grace Luz LPN. documented in this encounterLima City Hospital04-02-2024 Miscellaneous Notes* Telephone Encounter - Grcae Luz LPN - 06/08/2023 8:02 AM EDT [...] you. Grace Luz LPN. documented in this encounterLima City Hospital04-01-2024 History of Present illness Narrative* Agueda Sabillon LPN - 06/07/2023 1:01 PM EDT Patient presents for B-12 injection. Denies any problems at this time. Patient instructed on any SEof medication, verbalized understanding and agreed to proceed with treatment. Tolerated injection well. Agueda Sabillon LPN documented in this encounterLima City Hospital03-04-2024 History of Present illness Narrative* Agueda Sabillon LPN - 05/10/2023 1:33 PM EST Patient presents for B-12 injection. Denies any problems at this time. Patient instructed on any SEof medication, verbalized understanding and agreed to proceed with treatment. Tolerated injection well. Agueda Sabillon LPN documented in this encounterLima City Hospital02-20-2024 History of Present illness Narrative* Renetta [...] plan. Renetta Christie PA-C documented in this encounterLima City Hospital02-19-2024 Miscellaneous Notes* Telephone Encounter - Chantale Alves Ma - 04/26/2023 4:36 PM EST Spouse notified. * Telephone Encounter - Renetta Christie PA-C - 04/26/2023 4:22 PM EST So I did not see this in advance-- but lab orders are now placed. Advise fasting (just do it tomorrow with appt if possible). Otherwise, I can just call after the fact with results. Renetta Christie PA-C * Telephone Encounter - Candis Bergman [...] needs diagnosis. Please advise documented in this encounterLima City Hospital02-05-2024 History of Present illness Narrative* Agueda Sabillon LPN - 04/12/2023 1:19 PM EST Patient presents for B-12 injection. Denies any problems at this time. Patient instructed on any SEof medication, verbalized understanding and agreed to proceed with treatment. Tolerated injection well. Agueda Sabillon LPN documented in this encounterLima City Hospital12-07-2023 History of Present illness Narrative* Agueda Sabillon LPN - 02/11/2023 2:14 PM EST Patient presents for B-12 injection. Denies any problems at this time. Patient instructed on any SEof medication, verbalized understanding and agreed to proceed with treatment. Tolerated injection well. Agueda Sabillon LPN documented in this encounterLima City Hospital11-09-2023 History of Present illness Narrative* Agueda Sabillon LPN - 01/14/2023 2:14 PM EST Patient presents for B-12 injection. Denies any problems at this time. Patient instructed on any SEof medication, verbalized understanding and agreed to proceed with treatment. Tolerated injection well. Agueda Sabillon LPN documented in this encounterLima City Hospital11-06-2023 Miscellaneous Notes* Telephone Encounter - Grace [...] Thank you. Grace Luz. documented in this encounterLima City Hospital10-12-2023 History of Present illness Narrative* Agueda Sabillon LPN - 12/17/2022 2:50 PM EDT Patient presents for B-12 injection. Denies any problems at this time. Patient instructed on any SEof medication, verbalized understanding and agreed to proceed with treatment. Tolerated injection well. Agueda Sabillon LPN documented in this encounterLima City Hospital10-04-2023 History of Present illness Narrative* Renetta [...] hyperglycemia, without long-term current use of insulin ([facility]) - ICD9: 250.00, 790.29, ICD10: E11.65 (primary [...] plan. Renetta Christie PA-C documented in this encounterLima City Hospital08-28-2023 Miscellaneous Notes* Telephone Encounter - Grace [...] you. Grace Solano LPN documented in this encounterLima City Hospital08-09-2023 History of Present illness Narrative* Renetta [...] labs Renetta Christie PA-C documented in this encounterLima City Hospital07-31-2023 Discharge summary Author Bulmaro Brown [facility] October 05, 2022 2:13pm Note Date/Time October 05, 2022 2:13 pm [facility] Physical Therapy [facility] [address] [place] [address]. [address] [place] [address] / REHABILITATION SERVICES DISCHARGE SUMMARY MR#: [id number] Acct: [id number] Name: BRITNEY CANADA Rep #: [id number] : 1945 77 From: Bulmaro Brown DPT, OCS, CSCS Referring Dr.: LAURA MUSE Status: REG RCR [facility] Discharge Summary D/C summary: It has been my pleasure to treat BRITNEY CANADA referred by SUZIE MCKEON,with the diagnosis of R sided sciatica. for a total of 16 visit(s). Discharge Date: 10/05/22 Please see the following information for a summary of their discharge status. Subjective Subjective: Been pretty good for the last couple weeks. No back pain. Nobnqxlu9t/day. using wh walker to get around. Going [...] please feel free to call me at [phone]. Thank you for the referral of thispatient. Sincerely, Bulmaro Brown DPT, OCS, CSCS Balance/Gait/Functional tests Balance/Special Test Scores Functional Gait Assessment Score: 25 % Disability: 16.6700 Oswestry Low Back Score: 12 <Electronically signed by Bulmaro Brown DPT, OCS, CSCS> 10/05/22 1413 CC: LAURA MUSE; Dr. Jones Velasquez MD ~ EBG Signed [facility] Work Phone: [phone]) 200-833207-18-2023 Miscellaneous Notes* Telephone Encounter - Renetta Christie PA-C - 09/22/2022 4:36 PM EDT Rx for Keflex sent. * Telephone Encounter - Josseline Pineda LPN - 09/22/2022 1:53 PM EDT TC to Britney, she is not having dysuria, polyuria, back pain, cramping, fever but d/t recent hospitalization she would like to have [facility] called into [facility]. Patient will check with the pharmacy in [...] in. Renetta Christie PA-C documented in this encounterLima City Hospital06-29-2023 History of Present illness Narrative* Astrid Muse, DENTAL LABORATORY TECHNICIAN.ELECTRONIC COURT RECORDER - 09/03/2022 1:09 PM EDT CC: Patient presents with: Follow Up: Seen at [facility] on Wednesday for stroke, was released Wednesday HPI Britney Canada is a 76 year old female who presents today for originally routine follow up but [facility] so appointment focused on this [...] 65+ Completed DATA REVIEWED: Outside chart from [facility] reviewed. ASSESSMENT/PLAN: 1. History of recent hospitalization [...] plan. Astrid Muse APRN.CNP documented in this encounterLima City Hospital06-23-[address] Gregg [facility] August 28, 2022 12:25pm Note Date/Time August 28, 2022 12:2 5pm [facility] Medical Records Department [address] [place] [address] Instructions for Home/Discharge Instructions 08/28/22 1224 MR#: [id number] Acct: [id number] Name: BRITNEY CANADA Rep #:[id number] : 1945 76 From: [...] MD; Dr. Christal Patiño MD ~ Signed [facility] Work Phone: 1(769) 277-588706-23-[address] Gregg [facility] August 28, 2022 3:45pm Note Date/Time August 28, 2022 9:22 am [facility] Medical Records Department [address] [place] [address] Discharge Summary 08/28/22 0921 MR#: [id number] Acct: [id number] Name: BRITNEY CANADA Rep #:[id number] : 1945 76 From: Bea Gregg MD PCP: Dr. Jones Velasquez MD Status:ADM I N Location: [place] [address] Providers Date of Admission: 08/25/22 Primary Care [...] mellitus type II who presented to the [facility] ED on 08/28/22 with history of [...] 73.5 H, Lymph % (Auto) 18.5 L, Kent % (Auto) 6.5, Eos % (Auto) 0.7, [...] Health Service Charges/Coding Visit Charges Inpatient E&M: 56328 Disch Hosp >30min 08/28/22 1545 <Electronically signed by Bea Gregg MD> Cosigner Signature (if applicable): CC: Dr. Bea Gregg MD; Dr. Jones Velasquez MD~ Signed [facility] Work Phone: 1(937) 197-628006-22-[address] Patiño [facility] August 27, 2022 4:32pm Note Date/Time August 27, 2022 4:32 pm [facility] Medical Records Department [address] [place] [address] Progress Note - Hospitalist 08/27/22 1630 MR#: [id number] Acct: [id number] Name: BRITNEY CANADA Rep #:[id number] : 1945 76 From: Christal Patiño MD PCP: Dr. Jones Velasquez MD Status:ADM I N Location: [place] [address] Reason for Visit Reason for Visit: Diagnoses [...] (Auto) 71.7 H, Lymph % (Auto) 20.2, Kent % (Auto) 6.6, Eos % (Auto) 0.8, [...] documentation, 36minutes Charges/Coding Visit Charges Inpatient E&M: 55798 Subs Hosp L3 08/27/22 1632 <Electronically signed by Christal Patiño MD> Cosigner Signature (if applicable): CC: ~ Signed [facility] Work Phone: 1(269) 667-216006-21-[address] Patiño [facility] August 26, 2022 2:56pm Note Date/Time August 26, 2022 2:56 pm [facility] Medical Records Department [address] [place] [address] Progress Note - Hospitalist 08/26/22 1445 MR#: [id number] Acct: [id number] Name: BRITNEY CANADA Rep #:[id number] : 1945 76 From: Christal Patiño MD PCP: Dr. Jones Velasquez MD Status:ADM I N Location: [place] [address] Reason for Visit Reason for Visit: Diagnoses [...] % (Auto) 68.9, Lymph % (Auto) 23.7, Kent % (Auto) 6.2, Eos % (Auto) 0.2, [...] Clarity Clear, Urine pH 5.0, Ur Specific [place] 1.010, Urine Protein 30 H, Urine Glucose [...] GFR (MDRD) Non-Af 97, BUN/Creatinine Ratio 14.2, Yedrfsh065 H, Calcium 8.6, Total Bilirubin 0.80, AST 14 L, ALT 15, Alkaline Cfilfbbtrcw77, Total Protein 6.2 L, Albumin 2.8 L, [...] Neut % (Auto) 65.8, Lymph % (Auto) 26.1,Kent % (Auto) 6.8, Eos % (Auto) 0.3, [...] MD at 16:06 EDT , ADDENDUM: 08/25/22 4571 IMPRESSION: 1. No acute intracranial abnormality. There [...] 11:34 EDT Reading Location ID and State: [facility] / [place] Tel , Service support , Echocardiogram 08/25/22 [...] documentation, 38minutes Charges/Coding Visit Charges Inpatient E&M: 78407 Subs Hosp L3 08/26/22 1456 <Electronically signed by Christal Patiño MD> Cosigner Signature (if applicable): CC: ~ Signed [facility] Work Phone: 1(312) 559-598506-20-[address] Lew [facility] August 25, 2022 7:32pm Note Date/Time August 25, 2022 4:02 pm [facility] Medical Records Department [address] [place] [address] Emergency Department Summary 08/25/22 MR#: [id number] Acct: [id number] Name: BRITNEY CANADA Rep #:[id number] : 1945 76 From: Tejas Lew MD PCP: Dr. Jones Velasquez MD Status:ADM I N Location: [place] [address] HPI History of Present Illness Chief Complaint: [...] information on the computer in the meantime. [facility] Medical History CVA (cerebral vascular accident) (02/06/20) [...] mcg solution for injection 1,000 mcg IM BQUKJQZ36/08/20 [History Last Taken Unknown] atorvastatin 80 mg [...] date birthday of her or the president [facility]. She hasno focal or lateralizing weakness but [...] % (Auto) 68.9 Lymph % (Auto) 23.7 Kent % (Auto) 6.2 Eos % (Auto) 0.2 [...] (Auto) Neut % (Auto) Lymph % (Auto) Kent % (Auto) Eos % (Auto) Baso % [...] No acute ST elevation or depression. No. AK interval, QRS duration and QTc are all normal. Management Discussion w/another healthcare provider: Hospitalist and Manager Shift Discharge Plan Dx/Rx/DC Orders Clinical Impression: CVA (cerebral vascular accident), Expressive aphasia, Receptive aphasia, History of stroke, History of diabetes mellitus, History of hypertension Disposition Disposition: Acute Care [facility] Discharge Date/Time: 08/25/22 18:42 What to do if you have Problems For any increased pain, shortness of breath, bleeding, nausea or vomiting, chestpain, or any unexpected problems, contact your Primary Care Provider. Call [facility] ([phone]) or report to the closest Emergency Room. Call 911 if necessary. 08/25/221931 <Electronically signed by Tejas Lew MD> Cosigner Signature (if applicable): CC: Dr. Jones Velasquez MD ~ Signed [facility] Work Phone: 1(100) 948-887006-20-2023 History and physical note Author Dr. Patiño [facility] August 25, 2022 6:33pm Note Date/Time August 25, 2022 6:23 pm [facility] Medical Records Department [address] [place] [address] H&P Exam - Hospitalist 08/25/221812 MR#: [id number] Acct: [id number] Name: BRITNEY CANADA Rep #:[id number] : 1945 76 From: Christal Patiño MD PCP: Dr. Jones Velasquez MD Status:ADM I N Location: [place] [address] HPI - General General Date of Admission: 08/25/22 Date of Service: 08/25/22 Chief Complaint: Difficulty expressing words HPI Narrative BRITNEY CANADA, is a 76 F with a history of CVA 3 years ago, paroxysmal atrial flutter on Eliquis, hypertension, thyroidism type 2 diabetes who scented to [facility] 08/25/2022 due to difficulty getting [...] endorse any other focal or specific complaints. [facility] Medical History CVA (cerebral vascular accident) (02/06/20) [...] mcg solution for injection 1,000 mcg IM PQBLWIH90/08/20 [History Last Taken Unknown] atorvastatin 80 mg [...] through XII intact, patient would not perform yoprfn-jb-yypi, no clonus in lower extremities Skin: No [...] % (Auto) 68.9, Lymph % (Auto) 23.7, Kent % (Auto) 6.2, Eos % (Auto) 0.2, [...] documentation, 60minutes Charges/Coding Visit Charges Inpatient E&M: 84671 Init Hosp L2 08/25/22 9188 <Electronically signed by Christal Patiño MD> Cosigner Signature (if applicable): CC: Dr. Jones Velasquez MD; Dr. Christal Patiño MD~ Signed [facility] Work Phone: 1(971) 320-565506-05-2023 Miscellaneous Notes* Telephone Encounter - Raquel Vincent PSS - 08/10/2022 2:13 PM EDT CD READY FOR [place] [facility] * Telephone Encounter - Opal Funez - 08/10/2022 11:28 AM EDT Patient requesting disk of back from 07/13/2022 copied to a disk for picker operator [facility] Miscellaneous Notes* Telephone Encounter - Grace [...] you. Grace Solano LPN documented in this encounterL[facility]05-30-2023 Miscellaneous Notes* Telephone Encounter - Sobia Quiñonez RN - 08/04/2022 12:34 PM EDT Yamileth with [facility] called in and reports they do not have the strength of codeine with Guaifenesin that the provider ordered. I changed the medication to the one they have in stock and set it to what the provider had previously. Please resend if provider is ok with medication change. documented in this encounterL[facility]05-12-2023 Miscellaneous Notes* Telephone Encounter - Chantale [...] the current pain. Thank you Astrid Muse APRN.ELECTRONIC COURT RECORDER documented in this encounterLima City Hospital05-08-2023 History of Present illness Narrative* Jeannie [...] 13, 2022 2:31 PM documented in this encounterL[facility]04-24-2023 History of Present illness Narrative* Agueda Sabillon LPN - 06/29/2022 1:22 PM EDT Patient presents for B-12 injection. Denies any problems at this time. Patient instructed on any SEof medication, verbalized understanding and agreed to proceed with treatment. Tolerated injection well. Agueda Sabillon LPN documented in this encounterL[facility] Hospital04-13-2023 History of Present illness Narrative* Jodi [...] 18, 2022 8:32 AM documented in this encounterL[facility]03-31-2023 Miscellaneous Notes* Telephone Encounter - Astrid Muse APRN.CNP - 06/05/2022 7:59 AM EDT RX clarified and resent Astrid Muse APRN.CNP * Telephone Encounter - Artemio Burrows RN - 06/04/2022 1:58 PM EDT [facility] asking for new metformin Rx with one set of instructions. Received Rx today with 2sets of instructions. documented in this encounterL[facility] Hospital03-30-2023 History of Present illness Narrative* Astrid [...] plan. Astrid Muse APRN.CNP documented in this encounterL[facility]03-27-2023 History of Present illness Narrative* Agueda Sabillon LPN - 06/01/2022 1:16 PM EDT Patient presents for B-12 injection. Denies any problems at this time. Patient instructed on any SEof medication, verbalized understanding and agreed to proceed with treatment. Tolerated injection well. Agueda Sabillon LPN documented in this encounterC[id number] History of Present illness Narrative* Agueda Sabillon LPN - 05/04/2022 12:50 PM EST Patient presents for B-12 injection. Denies any problems at this time. Patient instructed on any SEof medication, verbalized understanding and agreed to proceed with treatment. Tolerated injection well. Agueda Sabillon LPN documented in this encounterLima City Hospital02-24-2023 History of Present illness Narrative* Mayelin Barakat Pss - 05/01/2022 10:14 AM EST POPULATION HEALTH NAVIGATION OUTREACH Action/FYI: [facility] Care Gaps 05/01/22 Discuss the following due/overdue HM care gaps: ~Colorectal Cancer Screening Outcome: ~Unable to leave voice mail as mailbox not set up. Avtodoriat message sent. Patient Identified by Name and : NO Outreach Outcome/Action Unable to reach patient: Phone number not valid / voicemail full [employer] message sent Did you use a PCP [...] 01, 2022 10:14 AM documented in this encounterLima City Hospital02-09-2023 Miscellaneous Notes* Telephone Encounter - Jones Velasquez MD - 04/16/2022 2:42 PM EST Staff Can you do the needful for the patient? Regards, Jones Velasquez MD documented in this encounterLima [facility] Hospital01-17-2023 Miscellaneous Notes* Telephone Encounter - Agueda Sabillon LPN - 03/24/2022 8:44 AM EST Patient scheduled for nurse visit 04/06/22 to receive Vitamin B-12. Please place new administration order at this time. Agueda Sabillon LPN documented in this encounterLima City Hospital01-04-2023 History of Present illness Narrative* Agueda Sabillon LPN - 03/11/2022 10:40 AM EST Patient presents for B-12 injection. Denies any problems at this time. Patient instructed on any SEof medication, verbalized understanding and agreed to proceed with treatment. Tolerated injection well. Agueda Sabillon LPN documented in this encounterLima City Hospital12-14-2022 History of Present illness Narrative* Jones [...] times a week. 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 Denies any problems at this time. Patient instructed on any SEof medication, verbalized understanding and agreed to proceed with treatment. Tolerated injection well. Agueda Sabillon LPN documented in this encounterLima City Hospital11-29-2022 History of Present illness Narrative* Jessica Miranda - 02/03/2022 10:37 AM EST POPULATION HEALTH NAVIGATION OUTREACH Action/FYI Unable to review H/M V/M not set up My chart sent Pt identified by name and : NO Outreach Outcome/Action Unable to reach patient: Phone number not valid / voicemail full Second Sight[employer] message sent Did you use a PCP [...] 03, 2022 10:37 AM documented in this encounterLima City Hospital11-02-2022 History of Present illness Narrative* Agueda Sabillon LPN - 01/07/2022 10:00 AM EDT Patient presents for B-12 injection. Denies any problems at this time. Patient instructed on any SEof medication, verbalized understanding and agreed to proceed with treatment. Tolerated injection well. Agueda Sabillon LPN documented in this encounterLima City Hospital10-03-2022 History of Present illness Narrative* Agueda Sabillon LPN - 12/08/2021 10:15 AM EDT Patient presents for B-12 injection. Denies any problems at this time. Patient instructed on any SEof medication, verbalized understanding and agreed to proceed with treatment. Tolerated injection well. Agueda Sabillon LPN documented in this encounterLima City Hospital09-13-2022 Miscellaneous Notes* Telephone Encounter - Sobia Betsy - 11/18/2021 10:17 AM EDT Patient is here said she needs labs but there is no orders in please advise. Sobia Betsy documented in this encounterLima City Hospital09-02-2022 History of Present illness Narrative* Agueda Sabillon LPN - 11/07/2021 10:06 AM EDT Patient presents for B-12 injection. Denies any problems at this time. Patient instructed on any SEof medication, verbalized understanding and agreed to proceed with treatment. Tolerated injection well. Agueda Sabillon LPN documented in this encounterLima City Hospital08-18-2022 History of Present illness Narrative* Mayelin Allred - 10/23/2021 8:13 AM EDT POPULATION HEALTH NAVIGATION OUTREACH Action/FYI: [employer] Care Gaps 10/23/21 Discuss/Due: ~Dilated Retinal Exam ~Albumin ~Colorectal Cancer Screening ~Breast Cancer Screening due 12/19/21 or after Outcome: ~Unable to leave voice mail as mailbox has not been set up. ~Sent Qifang message. Pt identified by name and : NO Outreach Outcome/Action Unable to reach patient: Phone number not valid / voicemail full Second S[employer] message sent Did you use a PCP [...] 23, 2021 8:13 AM documented in this [facility]08-08-2022 Miscellaneous Notes* Telephone Encounter - Chantale Alves Ma - 10/13/2021 2:55 PM EDT Patient notified. * Telephone Encounter - Chantale Alves Ma - 10/13/2021 2:54 PM EDT ----- Message from Jones Velasquez MD sent at 10/11/2021 8:45 AM EDT ----- Thyroid is not in the right levels it should be documented in this encounterLima City Hospital08-05-2022 History of Present illness Narrative* Agueda Sabillon LPN - 10/10/2021 9:49 AM EDT Patient presents for B-12 injection. Denies any problems at this time. Patient instructed on any SEof medication, verbalized understanding and agreed to proceed with treatment. Tolerated injection well. Agueda Sabillon LPN documented in this encounterL[facility] Hospital07-08-2022 History of Present illness Narrative* Agueda Sabillon LPN - 09/12/2021 9:39 AM EDT Patient presents for B-12 injection. Denies any problems at this time. Patient instructed on any SEof medication, verbalized understanding and agreed to proceed with treatment. Tolerated injection well. Agueda Sabillon LPN documented in this [facility]06-10-2022 History of Present illness Narrative* Agueda Sabillon LPN - 08/15/2021 12:38 PM EDT Patient presents for B-12 injection. Denies any problems at this time. Patient instructed on any SEof medication, verbalized understanding and agreed to proceed with treatment. Tolerated injection well. Agueda Sabillon LPN documented in this encounterL[facility] Hospital06-10-2022 History of Present illness Narrative* Jones Velasquez MD - 08/15/2021 11:58 AM EDT Reason for Visit Patient presents with: Established Patient: follow up-DM Britney Canada is a 75 year old female who presents here today for Above Complaints.. Health Maintenance DILATED RETINAL EXAM URINE ALBUMIN:CREATININE RATIO COLORECTAL CANCER SCREENING ADVANCE DIRECTIVE DISCUSSION HPI Just back from an amazing cruise via [place], ate right all that time but enjoyed [...] medications Jones Velasquez MD documented in this encounterLima City Hospital05-18-2022 Miscellaneous Notes* Telephone Encounter - Frankie [...] come in to complete documented in this encounterLima City Hospital05-10-2022 History of Present illness Narrative* Agueda Sabillon LPN - 07/15/2021 10:27 AM EDT Patient presents for B-12 injection. Denies any problems at this time. Patient instructed on any SEof medication, verbalized understanding and agreed to proceed with treatment. Tolerated injection well. Agueda Sabillon LPN documented in this encounterL[facility] Hospital05-06-2022 History of Present illness Narrative* Francia Salmon [facility] Navigator - 07/11/2021 11:27 AM EDT [...] to Practice: No Navigation Signature: Francia Salmon [facility] July 11, 2021 11:27 AM documented in this encounterLima [facility] Hospital04-05-2022 History of Present illness Narrative* Agueda Sabillon LPN - 06/10/2021 1:28 PM EDT Patient presents for B-12 injection. Denies any problems at this time. Patient instructed on any SEof medication, verbalized understanding and agreed to proceed with treatment. Tolerated injection well. Agueda Sabillon LPN documented in this encounterLima City Hospital07-21-2015 History of Past illness Narrative* Problem Noted Date Resolved Date Type II or unspecified type diabetes mellitus without mention of complication, not stated as uncontrolled 09/25/2014 Other and unspecified hyperlipidemia 09/25/2014 06/21/2015 BMI 38.0-38.9,adult 09/25/2014 11/30/2014 documented as of this encounter (statuses as of 06/10/2021) [address]21-2015 History of Past illness Narrative* Problem Noted Date Resolved Date Type II or unspecified type diabetes mellitus without mention of complication, not stated as uncontrolled 09/25/2014 Other and unspecified hyperlipidemia 09/25/2014 06/21/2015 BMI 38.0-38.9,adult 09/25/2014 11/30/2014 documented as of this encounter (statuses as of 07/11/2021) [address]21-2015 History of Past illness Narrative* Problem Noted Date Resolved Date Type II or unspecified type diabetes mellitus without mention of complication, not stated as uncontrolled 09/25/2014 Other and unspecified hyperlipidemia 09/25/2014 06/21/2015 BMI 38.0-38.9,adult 09/25/2014 11/30/2014 documented as of this encounter (statuses as of 07/15/2021) [address]-2015 History of Past illness Narrative* Problem Noted Date Resolved Date Type II or unspecified type diabetes mellitus without mention of complication, not stated as uncontrolled 09/25/2014 Other and unspecified hyperlipidemia 09/25/2014 06/21/2015 BMI 38.0-38.9,adult 09/25/2014 11/30/2014 documented as of this encounter (statuses as of 07/23/2021) [address]-2015 History of Past illness Narrative* Problem Noted Date Resolved Date Type II or unspecified type diabetes mellitus without mention of complication, not stated as uncontrolled 09/25/2014 Other and unspecified hyperlipidemia 09/25/2014 06/21/2015 BMI 38.0-38.9,adult 09/25/2014 11/30/2014 documented as of this encounter (statuses as of 08/15/2021) [address]-2015 History of Past illness Narrative* Problem Noted Date Resolved Date Type II or unspecified type diabetes mellitus without mention of complication, not stated as uncontrolled 09/25/2014 Other and unspecified hyperlipidemia 09/25/2014 06/21/2015 BMI 38.0-38.9,adult 09/25/2014 11/30/2014 documented as of this encounter (statuses as of 08/15/2021) [address]-2015 History of Past illness Narrative* Problem Noted Date Resolved Date Type II or unspecified type diabetes mellitus without mention of complication, not stated as uncontrolled 09/25/2014 Other and unspecified hyperlipidemia 09/25/2014 06/21/2015 BMI 38.0-38.9,adult 09/25/2014 11/30/2014 documented as of this encounter (statuses as of 09/12/2021) [address]-2015 History of Past illness Narrative* Problem Noted Date Resolved Date Type II or unspecified type diabetes mellitus without mention of complication, not stated as uncontrolled 09/25/2014 Other and unspecified hyperlipidemia 09/25/2014 06/21/2015 BMI 38.0-38.9,adult 09/25/2014 11/30/2014 documented as of this encounter (statuses as of 10/10/2021) [address]-2015 History of Past illness Narrative* Problem Noted Date Resolved Date Type II or unspecified type diabetes mellitus without mention of complication, not stated as uncontrolled 09/25/2014 Other and unspecified hyperlipidemia 09/25/2014 06/21/2015 BMI 38.0-38.9,adult 09/25/2014 11/30/2014 documented as of this encounter (statuses as of 10/13/2021) [address]2015 History of Past illness Narrative* Problem Noted Date Resolved Date Type II or unspecified type diabetes mellitus without mention of complication, not stated as uncontrolled 09/25/2014 Other and unspecified hyperlipidemia 09/25/2014 06/21/2015 BMI 38.0-38.9,adult 09/25/2014 11/30/2014 documented as of this encounter (statuses as of 10/23/2021) [address]-2015 History of Past illness Narrative* Problem Noted Date Resolved Date Type II or unspecified type diabetes mellitus without mention of complication, not stated as uncontrolled 09/25/2014 Other and unspecified hyperlipidemia 09/25/2014 06/21/2015 BMI 38.0-38.9,adult 09/25/2014 11/30/2014 documented as of this encounter (statuses as of 11/07/2021) [address]2015 History of Past illness Narrative* Problem Noted Date Resolved Date Type II or unspecified type diabetes mellitus without mention of complication, not stated as uncontrolled 09/25/2014 Other and unspecified hyperlipidemia 09/25/2014 06/21/2015 BMI 38.0-38.9,adult 09/25/2014 11/30/2014 documented as of this encounter (statuses as of 11/18/2021) [address]2015 History of Past illness Narrative* Problem Noted Date Resolved Date Type II or unspecified type diabetes mellitus without mention of complication, not stated as uncontrolled 09/25/2014 Other and unspecified hyperlipidemia 09/25/2014 06/21/2015 BMI 38.0-38.9,adult 09/25/2014 11/30/2014 documented as of this encounter (statuses as of 12/08/2021) [address]-2015 History of Past illness Narrative* Problem Noted Date Resolved Date Type II or unspecified type diabetes mellitus without mention of complication, not stated as uncontrolled 09/25/2014 Other and unspecified hyperlipidemia 09/25/2014 06/21/2015 BMI 38.0-38.9,adult 09/25/2014 11/30/2014 documented as of this encounter (statuses as of 01/07/2022) [address]-2015 History of Past illness Narrative* Problem Noted Date Resolved Date Type II or unspecified type diabetes mellitus without mention of complication, not stated as uncontrolled 09/25/2014 Other and unspecified hyperlipidemia 09/25/2014 06/21/2015 BMI 38.0-38.9,adult 09/25/2014 11/30/2014 documented as of this encounter (statuses as of 02/03/2022) [address]-2015 History of Past illness Narrative* Problem Noted Date Resolved Date Type II or unspecified type diabetes mellitus without mention of complication, not stated as uncontrolled 09/25/2014 Other and unspecified hyperlipidemia 09/25/2014 06/21/2015 BMI 38.0-38.9,adult 09/25/2014 11/30/2014 documented as of this encounter (statuses as of 02/05/2022) [address]-2015 History of Past illness Narrative* Problem Noted Date Resolved Date Type II or unspecified type diabetes mellitus without mention of complication, not stated as uncontrolled 09/25/2014 Other and unspecified hyperlipidemia 09/25/2014 06/21/2015 BMI 38.0-38.9,adult 09/25/2014 11/30/2014 documented as of this encounter (statuses as of 02/18/2022) [address]-2015 History of Past illness Narrative* Problem Noted Date Resolved Date Type II or unspecified type diabetes mellitus without mention of complication, not stated as uncontrolled 09/25/2014 Other and unspecified hyperlipidemia 09/25/2014 06/21/2015 BMI 38.0-38.9,adult 09/25/2014 11/30/2014 documented as of this encounter (statuses as of 03/12/2022) [address]-2015 History of Past illness Narrative* Problem Noted Date Resolved Date Type II or unspecified type diabetes mellitus without mention of complication, not stated as uncontrolled 09/25/2014 Other and unspecified hyperlipidemia 09/25/2014 06/21/2015 BMI 38.0-38.9,adult 09/25/2014 11/30/2014 documented as of this encounter (statuses as of 04/16/2022) [address]-2015 History of Past illness Narrative* Problem Noted Date Resolved Date Type II or unspecified type diabetes mellitus without mention of complication, not stated as uncontrolled 09/25/2014 Other and unspecified hyperlipidemia 09/25/2014 06/21/2015 BMI 38.0-38.9,adult 09/25/2014 11/30/2014 documented as of this encounter (statuses as of 04/30/2022) [address]-2015 History of Past illness Narrative* Problem Noted Date Resolved Date Type II or unspecified type diabetes mellitus without mention of complication, not stated as uncontrolled 09/25/2014 Other and unspecified hyperlipidemia 09/25/2014 06/21/2015 BMI 38.0-38.9,adult 09/25/2014 11/30/2014 documented as of this encounter (statuses as of 05/01/2022) [address]-2015 History of Past illness Narrative* Problem Noted Date Resolved Date Type II or unspecified type diabetes mellitus without mention of complication, not stated as uncontrolled 09/25/2014 Other and unspecified hyperlipidemia 09/25/2014 06/21/2015 BMI 38.0-38.9,adult 09/25/2014 11/30/2014 documented as of this encounter (statuses as of 05/04/2022) [address]-2015 History of Past illness Narrative* Problem Noted Date Resolved Date Type II or unspecified type diabetes mellitus without mention of complication, not stated as uncontrolled 09/25/2014 Other and unspecified hyperlipidemia 09/25/2014 06/21/2015 BMI 38.0-38.9,adult 09/25/2014 11/30/2014 documented as of this encounter (statuses as of 06/01/2022) [address]-2015 History of Past illness Narrative* Problem Noted Date Resolved Date Type II or unspecified type diabetes mellitus without mention of complication, not stated as uncontrolled 09/25/2014 Other and unspecified hyperlipidemia 09/25/2014 06/21/2015 BMI 38.0-38.9,adult 09/25/2014 11/30/2014 documented as of this encounter (statuses as of 06/05/2022) [address]2015 History of Past illness Narrative* Problem Noted Date Resolved Date Type II or unspecified type diabetes mellitus without mention of complication, not stated as uncontrolled 09/25/2014 Other and unspecified hyperlipidemia 09/25/2014 06/21/2015 BMI 38.0-38.9,adult 09/25/2014 11/30/2014 documented as of this encounter (statuses as of 06/08/2022) [address]2015 History of Past illness Narrative* Problem Noted Date Resolved Date Type II or unspecified type diabetes mellitus without mention of complication, not stated as uncontrolled 09/25/2014 Other and unspecified hyperlipidemia 09/25/2014 06/21/2015 BMI 38.0-38.9,adult 09/25/2014 11/30/2014 documented as of this encounter (statuses as of 06/19/2022) [address]2015 History of Past illness Narrative* Problem Noted Date Resolved Date Type II or unspecified type diabetes mellitus without mention of complication, not stated as uncontrolled 09/25/2014 Other and unspecified hyperlipidemia 09/25/2014 06/21/2015 BMI 38.0-38.9,adult 09/25/2014 11/30/2014 documented as of this encounter (statuses as of 06/29/2022) [address]2015 History of Past illness Narrative* Problem Noted Date Resolved Date Type II or unspecified type diabetes mellitus without mention of complication, not stated as uncontrolled 09/25/2014 Other and unspecified hyperlipidemia 09/25/2014 06/21/2015 BMI 38.0-38.9,adult 09/25/2014 11/30/2014 documented as of this encounter (statuses as of 08/06/2022) [address]2015 History of Past illness Narrative* Problem Noted Date Resolved Date Type II or unspecified type diabetes mellitus without mention of complication, not stated as uncontrolled 09/25/2014 Other and unspecified hyperlipidemia 09/25/2014 06/21/2015 BMI 38.0-38.9,adult 09/25/2014 11/30/2014 documented as of this encounter (statuses as of 08/11/2022) [address]2015 History of Past illness Narrative* Problem Noted Date Resolved Date Type II or unspecified type diabetes mellitus without mention of complication, not stated as uncontrolled 09/25/2014 Other and unspecified hyperlipidemia 09/25/2014 06/21/2015 BMI 38.0-38.9,adult 09/25/2014 11/30/2014 documented as of this encounter (statuses as of 09/03/2022) [address]2015 History of Past illness Narrative* Problem Noted Date Diagnosed Date Resolved Date Type II or unspecified type diabetes mellitus without mention of complication, not stated as uncontrolled 09/25/2014 02/19/2015 Other and unspecified hyperlipidemia 09/25/2014 06/21/2015 BMI 38.0-38.9,adult 09/25/2014 12/01/19 15 documented as of this encounter (statuses as of 09/17/2022) [address]2015 History of Past illness Narrative* Problem Noted Date Diagnosed Date Resolved Date Type II or unspecified type diabetes mellitus without mention of complication, not stated as uncontrolled 09/25/2014 02/19/2015 Other and unspecified hyperlipidemia 09/25/2014 06/21/2015 BMI 38.0-38.9,adult 09/25/2014 12/01/19 15 documented as of this encounter (statuses as of 09/23/2022) [address]2015 History of Past illness Narrative* Problem Noted Date Diagnosed Date Resolved Date Type II or unspecified type diabetes mellitus without mention of complication, not stated as uncontrolled 09/25/2014 02/19/2015 Other and unspecified hyperlipidemia 09/25/2014 06/21/2015 BMI 38.0-38.9,adult 09/25/2014 12/01/19 15 documented as of this encounter (statuses as of 10/15/2022) [address]2015 History of Past illness Narrative* Problem Noted Date Diagnosed Date Resolved Date Type II or unspecified type diabetes mellitus without mention of complication, not stated as uncontrolled 09/25/2014 02/19/2015 Other and unspecified hyperlipidemia 09/25/2014 06/21/2015 BMI 38.0-38.9,adult 09/25/2014 12/01/19 15 documented as of this encounter (statuses as of 11/03/2022) [facility] History of Past illness Narrative* Problem Noted Date Diagnosed Date Resolved Date Type II or unspecified type diabetes mellitus without mention of complication, not stated as uncontrolled 09/25/2014 02/19/2015 Other and unspecified hyperlipidemia 09/25/2014 06/21/2015 BMI 38.0-38.9,adult 09/25/2014 12/01/19 15 documented as of this encounter (statuses as of 12/11/2022) [address] History of Past illness Narrative* Problem Noted Date Diagnosed Date Resolved Date Type II or unspecified type diabetes mellitus without mention of complication, not stated as uncontrolled 09/25/2014 02/19/2015 Other and unspecified hyperlipidemia 09/25/2014 06/21/2015 BMI 38.0-38.9,adult 09/25/2014 12/01/19 15 documented as of this encounter (statuses as of 12/18/2022) [address]21-2015 History of Past illness Narrative* Problem Noted Date Diagnosed Date Resolved Date Type II or unspecified type diabetes mellitus without mention of complication, not stated as uncontrolled 09/25/2014 02/19/2015 Other and unspecified hyperlipidemia 09/25/2014 06/21/2015 BMI 38.0-38.9,adult 09/25/2014 12/01/19 15 documented as of this encounter (statuses as of 01/12/2023) [address]21-2015 History of Past illness Narrative* Problem Noted Date Diagnosed Date Resolved Date Type II or unspecified type diabetes mellitus without mention of complication, not stated as uncontrolled 09/25/2014 02/19/2015 Other and unspecified hyperlipidemia 09/25/2014 06/21/2015 BMI 38.0-38.9,adult 09/25/2014 12/01/19 15 documented as of this encounter (statuses as of 01/15/2023) [facility]-21-2015 History of Past illness Narrative* Problem Noted Date Diagnosed Date Resolved Date Type II or unspecified type diabetes mellitus without mention of complication, not stated as uncontrolled 09/25/2014 02/19/2015 Other and unspecified hyperlipidemia 09/25/2014 06/21/2015 BMI 38.0-38.9,adult 09/25/2014 12/01/19 15 documented as of this encounter (statuses as of 02/11/2023) [address]21-2015 History of Past illness Narrative* Problem Noted Date Diagnosed Date Resolved Date Type II or unspecified type diabetes mellitus without mention of complication, not stated as uncontrolled 09/25/2014 02/19/2015 Other and unspecified hyperlipidemia 09/25/2014 06/21/2015 BMI 38.0-38.9,adult 09/25/2014 12/01/19 15 documented as of this encounter (statuses as of 04/12/2023) [address]21-2015 History of Past illness Narrative* Problem Noted Date Diagnosed Date Resolved Date Type II or unspecified type diabetes mellitus without mention of complication, not stated as uncontrolled 09/25/2014 02/19/2015 Other and unspecified hyperlipidemia 09/25/2014 06/21/2015 BMI 38.0-38.9,adult 09/25/2014 12/01/19 15 documented as of this encounter (statuses as of 04/26/2023) [address]21-2015 History of Past illness Narrative* Problem Noted Date Diagnosed Date Resolved Date Type II or unspecified type diabetes mellitus without mention of complication, not stated as uncontrolled 09/25/2014 02/19/2015 Other and unspecified hyperlipidemia 09/25/2014 06/21/2015 BMI 38.0-38.9,adult 09/25/2014 12/01/19 15 documented as of this encounter (statuses as of 04/27/2023) [facility] History of Past illness Narrative* Problem Noted Date Diagnosed Date Resolved Date Type II or unspecified type diabetes mellitus without mention of complication, not stated as uncontrolled 09/25/2014 02/19/2015 Other and unspecified hyperlipidemia 09/25/2014 06/21/2015 BMI 38.0-38.9,adult 09/25/2014 12/01/19 15 documented as of this encounter (statuses as of 04/29/2023) [facility] History of Past illness Narrative* Problem Noted Date Diagnosed Date Resolved Date Type II or unspecified type diabetes mellitus without mention of complication, not stated as uncontrolled 09/25/2014 02/19/2015 Other and unspecified hyperlipidemia 09/25/2014 06/21/2015 BMI 38.0-38.9,adult 09/25/2014 12/01/19 15 documented as of this encounter (statuses as of 05/10/2023) [facility] History of Past illness Narrative* Problem Noted Date Diagnosed Date Resolved Date Type II or unspecified type diabetes mellitus without mention of complication, not stated as uncontrolled 09/25/2014 02/19/2015 Other and unspecified hyperlipidemia 09/25/2014 06/21/2015 BMI 38.0-38.9,adult 09/25/2014 12/01/19 15 documented as of this encounter (statuses as of 06/08/2023) [facility] Vitamin B12 deficiency- Primary [...] of insulin (HCC) [facility] [place] [facility] Diagnosis Vitamin B12 deficiency- Primary Other B-complex deficiencies documented [facility] this [facility] [place] [facility]* Diagnosis Leukocytosis, unspecified type- Primary Hypothyroidism, unspecified type Diabetes mellitus type 2 with complications (HCC) Type II or unspecified type diabetes mellitus with unspecified complication, not stated as uncontrolled documented [facility] this [facility] [place] [facility]* Diagnosis Vitamin B12 deficiency- Primary Other B-complex deficiencies documented in this [facility] [place] [facility]* Diagnosis Diabetes mellitus type 2 with complications (HCC)- Primary Type II or unspecified type diabetes mellitus with unspecified complication, not stated as uncontrolled documented [facility] this encounter [facility] [place] [facility]* Diagnosis Vitamin B12 deficiency- Primary Other B-complex deficiencies documented in this encounter [facility] [place] [facility]* Diagnosis Diabetes mellitus type 2 with complications (HCC)- Primary Type II or unspecified type diabetes mellitus with unspecified complication, not stated as uncontrolled Mixed hyperlipidemia Essential hypertension Unspecified essential hypertension Paroxysmal A-fib (HCC) Atrial fibrillation documented in this encounter [facility] note* Diagnosis Breast cancer screening by mammogram- Primary [facility] [place] [facility] Diagnosis Vitamin B 12 deficiency- Primary Other B-complex deficiencies documented [facility] this encounter [facility] [place] [facility]* Diagnosis Diabetes mellitus type 2 with complications (HCC)- Primary Type II or unspecified type diabetes mellitus with unspecified complication, not stated as uncontrolled Essential hypertension Unspecified essential hypertension Colon cancer screening Special screening for malignant neoplasms, colon documented in this encounter [facility] [place] [facility]* Diagnosis Acute right-sided low back pain with right-sided sciatica- Primary Bronchitis Bronchitis, not specified as acute or chronic [facility] [place] [facility]* Diagnosis Onset Date Resolution Status Essential (primary) hypertension chronic Hyperlipidemia chronic Nonobstructive atheroscleros is of coronary artery chronic Paroxysmal atrial flutter ch ronic Hypothyroidism acute Neurologic abnormality acute CVA (cerebral vascular accident) February 06, 2020 chronic Essential (primary) hypertension chronic Mitral valve annular calcification chronic Paroxysmal atrial flutter ch ronic Type 2 diabetes mellitus [facility] Work Phone: Evaluation note* Diagnosis Onset Date [...] ronic Type 2 diabetes mellitus chr onic [facility] Work Phone: Evaluation note* Diagnosis History of recent hospitalization- Primary Personal history of unspecified disease Cerebrovascular accident (CVA), unspecified mechanism (HCC) Weakness of right lower extremity Urinary frequency Other fatigue Blood in stool Left upper quadrant abdominal tenderness without rebound tenderness Nausea and vomiting, unspecified vomiting type [facility] [place] [facility]* Diagnosis Urinary tract infection without hematuria, site unspecified- Primary [facility] [place] [facility]* Diagnosis Onset Date Resolution Status Hyperlipidemia chronic Nonobstructive atherosclerosis of coronary artery chronic [facility] Work Phone: Evaluation note* Diagnosis Type 2 diabetes mellitus with hyperglycemia, without long-term current use of insulin ([facility])- Primary Essential hypertension Unspecified essential hypertension Vitamin B 12 deficiency Other B-complex deficiencies Acute vaginitis Vaginitis and vulvovaginitis, unspecified [facility] Diagnosis Acute vaginitis Vaginitis and vulvovaginitis, unspecified [facility] Diagnosis Type 2 diabetes mellitus with hyperglycemia, without long-term current use of insulin ([facility])- Primary Acute vaginitis Vaginitis and vulvovaginitis, unspecified Cerebrovascular accident (CVA), unspecified mechanism (HCC) Dysuria [facility] [place] [facility]* Diagnosis Vitamin B12 deficiency- Primary Other B-complex deficiencies [facility] Diagnosis Vitamin B 12 deficiency- Primary Other B-complex deficiencies [facility] Diagnosis Essential hypertension- Primary Unspecified essential hypertension Mixed hyperlipidemia Vitamin B 12 deficiency Other B-complex deficiencies Type 2 diabetes mellitus with hyperglycemia, without long-term current use of insulin (HCC) Paroxysmal A-fib (HCC) Atrial fibrillation [facility] [place] [facility]* Diagnosis Type 2 diabetes mellitus with hyperglycemia, without long-term current use of insulin (HCC)- Primary Cerebrovascular accident (CVA), unspecified mechanism (HCC) Mixed hyperlipidemia Essential hypertension Unspecified essential hypertension [facility] Diagnosis Acute right-sided low back pain with right-sided sciatica- Primary Chronic low back pain, unspecified back pain laterality, unspecified whether sciatica present Closed fracture of second lumbar vertebra with routine healing, unspecified fracture morphology, subsequent encounter [facility] Diagnosis Vitamin B 12 deficiency- Primary Other B-complex deficiencies [facility] [place] [facility]* Diagnosis Occipital stroke (HCC) Unspecified cerebral artery occlusion with cerebral infarction Type 2 diabetes mellitus with hyperglycemia, without long-term current use of insulin (HCC) [facility] [place] [facility]* Diagnosis Vitamin B 12 deficiency- Primary Other B-complex deficiencies [facility] [place] [facility]* Diagnosis Type 2 diabetes mellitus with hyperglycemia, without long-term current use of insulin (HCC) [facility] [place] [facility]* Diagnosis Uncontrolled type 2 diabetes mellitus [...] Hypothyroidism, unspecified type [facility] [place] [facility] Diagnosis Uncontrolled type 2 diabetes mellitus [...] Hypothyroidism, unspecified type [facility] [place] [facility]* Diagnosis Uncontrolled type 2 diabetes mellitus [...] Other B-complex deficiencies [facility] [place] [facility]* Diagnosis Uncontrolled type 2 diabetes mellitus [...] right lower extremity documented in this encounter [facility] note* Diagnosis Uncontrolled type 2 diabetes mellitus [...] Nontoxic uninodular goiter documented [facility] this encounter [facility] [place] [facility]* Diagnosis Uncontrolled type 2 diabetes mellitus [...] Nontoxic uninodular goiter [facility] [place] [facility]* Diagnosis Uncontrolled type 2 diabetes mellitus [...] Nontoxic uninodular goiter [facility] Diagnosis Uncontrolled type 2 diabetes mellitus [...] Other B-complex deficiencies [facility] [place] [facility]* Diagnosis Uncontrolled type 2 diabetes mellitus [...] stated as uncontrolled [facility] Diagnosis Uncontrolled type 2 diabetes [...] Other B-complex deficiencies [facility] [place] [facility]* Diagnosis Uncontrolled type 2 diabetes mellitus [...] Nontoxic uninodular goiter [facility] Diagnosis Uncontrolled type 2 diabetes [...] Nontoxic uninodular goiter [facility] Diagnosis Uncontrolled type 2 diabetes [...] other specified site documented in this encounter [facility] [place] [facility]* Diagnosis Uncontrolled type 2 diabetes mellitus [...] Other B-complex deficiencies [facility] [place] [facility]* Diagnosis Uncontrolled type 2 diabetes mellitus [...] Nontoxic uninodular goiter [facility] [place] [facility]* Diagnosis Uncontrolled type 2 diabetes mellitus [...] site Acute cystitis with hematuria Acute cystitis MCC (current) use of oral hypoglycemic drugs [facility] Diagnosis Onset Date Resolution Status Admit Date CVA (cerebral vascular accident) acu te September 06, 2024 7:55am Hyperlipidemia chronic September 06, 2024 7:55am Nonobstructive atheroscleros is of coronary artery chronic September 06 7:55am Essential (primary) hypertension ivana ctive September 06, 2024 7:55am Paroxysmal atrial flutter inactive September 06, 2024 7:55am [facility] Work Phone: History and physical note Author Dr. Patiño [facility] August 25, 2022 6:33pm Note Date/Time August 25, 2022 6:23 pm [facility] Medical Records Department [address] [place] [id number] H&P Exam - Hospitalist 08/25/221812 MR#: [id number] Acct: [id number] Name: BRITNEY CANADA Rep #:[id number] : 1945 76 From: Christal Patiño MD PCP: Dr. Jones Velasquez MD Status:ADM I N Location: [place] [id number] HPI - General General Date of Admission: 08/25/22 Date of Service: 08/25/22 Chief Complaint: Difficulty expressing words HPI Narrative BRITNEY CANADA, is a 76 F with a history of CVA 3 years ago, paroxysmal atrial flutter on Eliquis, hypertension, thyroidism type 2 diabetes who scented to [facility] 08/25/2022 due to difficulty getting [...] endorse any other focal or specific complaints. [facility] Medical History CVA (cerebral vascular accident) (02/06/20) [...] mcg solution for injection 1,000 mcg IM [id number]/08/20 [History Last Taken Unknown] atorvastatin 80 mg [...] through XII intact, patient would not perform [id number], no clonus in lower extremities Skin: No [...] % (Auto) 68.9, Lymph % (Auto) 23.7, [place] % (Auto) 6.2, Eos % (Auto) 0.2, [...] documentation, 60minutes Charges/Coding Visit Charges Inpatient E&M: 37637 Init Hosp L2 08/25/22 1833 <Electronically signed by Christal Patiño MD> Cosigner Signature (if applicable): CC: Dr. Jones Velasquez MD; Dr. Christal Patiño MD~ Signed [facility] Work Phone: Hospital course Narrative No data available for this section [facility] Reason for referral (narrative)* Diagnostic Procedure Only (Routine) - Pending Review Specialty Diagnoses / Procedures Referred By Contac t Referred To Contact BR IMAGING Diagnoses Breast cancer screening by mammogram Procedures GISELLE SCREENING SCREENING MAMMOGRAPHY BI 2-VIEW BREAST INC CAD Jones Velasquez MD [address] [place] [address] [facility] [address] [facility] [place] [address] Referral ID Status Reason Start Date Expiration Date Visits Requested Visits Authorized [id number] Pending Review Auto-Generat ed Referral 04/16/2022 05/15/2023 1 1 [facility] for referral (narrative)* Diagnostic Procedure Only (Routine) - Closed Specialty Diagnoses / Procedures Referred By Contac t Referred To Contact XR IMAGING Diagnoses Acute right-sided low back pain with right-sided sciatica Pain of right lower extremity Procedures XR LUMBAR GENERAL 3V AP/LAT/L5-S1 RADEX SPINE LUMBOSACRAL 2/3 VIEWS Astrid Muse APRN.CNP [address] [place] [address] [place] [address] Referral ID Status Reason Start Date Expiration Date V isits Requested Visits Authorized [id number] Closed Auto-Generate d Referral 07/13/2022 08/12/2023 1 1 [facility] for referral (narrative)* Diagnostic Procedure Only (Routine) - Authorized Specialty Diagnoses / Procedures Referred By Contac t Referred To Contact US IMAGING Diagnoses Thyroid nodule Procedures US THYROID/PARATHYROID US SOFT TISSUE HEAD & NECK REAL TIME IMGE DOCM Astrid Muse APRN.ELECTRONIC COURT RECORDER [address] [place] [address] [place] [address] Referral ID Status Reason Start Date Expiration Date Visits Requested Visits Authorized [id number] Authorized Auto-Generat ed Referral 03/03/2025 1 1 [facility]No reason for referral information available[place] [facility] Work Phone: Reason for visit Narrative* Diagnostic Procedure Only (Routine) - Closed Specialty Diagnoses / Procedures Referred By Marniac t Referred To Contact XR IMAGING Diagnoses Acute right-sided low back pain with right-sided sciatica Pain of right lower extremity Procedures XR LUMBAR GENERAL 3V AP/LAT/L5-S1 RADEX SPINE LUMBOSACRAL 2/3 VIEWS Astrid Muse APRN.E[address] RECORDER [address] [place] [address] [place] [address] Referral ID Status Reason Start Date Expiration Date V isits Requested Visits Authorized [id number] Closed Auto-Generate d Referral 07/13/2022 08/12/2023 1 1 [facility] Medications Administered Section Active Administered Medications [...] FoundDocuments on File Type Date Recorded Patient Tin Dipper Expl anation Advance Directive(s) 02/26/2015 1:30 PM Documents on File Type Date Recorded Patient Tin Dipper Expl anation Advance Directive(s) 02/26/2015 1:30 PM Advance Directive Response Recorded Date/ Time Name of Medical Power of Propellant Charge Zone Assembler Mehrdad Wilson August 25, 2022 4:34pm Advance Directives Yes April 01, 2020 8:21am Living Will Yes August 25, 2022 4:34pm Power of Propellant Charge Zone Assembler Yes August 25 4:34pm Advance Directive Response Recorded Date/ Time Name of Medical Power of Propellant Charge Zone Assembler Mehrdad gonzalez August 25, 2022 7:03pm Advance Directives Yes April 01, 2020 8:21am Living Will Yes August 25, 2022 7:03pm Power of Propellant Charge Zone Assembler Yes August 25 7:03pm Advance Directive Response Recorded Date/ Time Name of Medical Power of Propellant Charge Zone Assembler Mehrdad gonzalez August 25, 2022 7:03pm Advance Directives Yes September 03 4:00pm Living Will Yes September 03, 2022 4:00pm Power of Propellant Charge Zone Assembler Yes September 03 4:00pm Advance Directive Response [...] lower extremity Procedures CONSULT TO NEUROLOGY OFFICE/OUTPATIENT [facility] 60-74 MINUTES Older, APRN. AstridELECTRONIC COURT RECORDER [address] [place] [address] Referral ID Status Reason Start Date Expiration Date Visits Requested Visits Authorized [id number] Pending Review PCP Requested Referral 09/03/2022 09/03/2023 1 1 Specialty Diagnoses / Procedures Referred By Contac t Referred To Contact Pain Management Diagnoses Acute right-sided low back pain with right-sided sciatica Chronic low back pain, unspecified back pain laterality, unspecified whether sciatica present Closed fracture of second lumbar vertebra with routine healing, unspecified fracture morphology, subsequent encounter Procedures CONSULT TO PAIN MGT OFFICE/OUTPATIENT [facility] 60-74 MINUTES Older, APRN. AstridELECTRONIC COURT RECORDER [address] [place] [address] Referral ID Status Reason Start Date Expiration Date Visits Requested Visits Authorized [id number] Pending Review PCP Requested Referral 07/16/2022 07/16/2023 1 1 Specialty Diagnoses / Procedures Referred By Contac t Referred To Contact General Surgery Diagnoses Thyroid nodule Procedures CONSULT TO GENERAL SURGERY OFFICE/OUTPATIENT [facility] 60 MINUTES Older, APRN. AstridELECTRONIC COURT RECORDER [address] [place] [address] Referral ID Status Reason Start Date Expiration Date Visits Requested Visits Authorized [id number] Authorized PCP Requested Referral 02/10/2024 02/09/2025 1 1 Summary Purpose Additional Source Comments Source Comments (unrecognize d section and content) In the event this informatio n is protected by the Federal Confidentiality of Alcohol and Drug Abuse Patient Records regulations: The Federal rules restrict any use of the information to criminally investigate or prosecute any alcohol or drug abuse patient.[facility] the event this information is protected by the Federal Confidentiality of Alcohol and Drug Abuse Patient Records regulations: The Federal rules restrict any use of the information to criminally investigate or prosecute any alcohol or drug abuse patient.[facility] the event this information is protected by the Federal Confidentiality of Alcohol and Drug Abuse Patient Records regulations: The Federal rules restrict any use of the information to criminally investigate or prosecute any alcohol or drug abuse patient.[facility] the event this information is protected by the Federal Confidentiality of Alcohol and Drug Abuse Patient Records regulations: The Federal rules restrict any use of the information to criminally investigate or prosecute any alcohol or drug abuse patient.[facility] the event this information is protected by the Federal Confidentiality of Alcohol and Drug Abuse Patient Records regulations: The Federal rules restrict any use of the information to criminally investigate or prosecute any alcohol or drug abuse patient.[facility] the event this information is protected by the Federal Confidentiality of Alcohol and Drug Abuse Patient Records regulations: The Federal rules restrict any use of the information to criminally investigate or prosecute any alcohol or drug abuse patient.[facility] the event this information is protected by the Federal Confidentiality of Alcohol and Drug Abuse Patient Records regulations: The Federal rules restrict any use of the information to criminally investigate or prosecute any alcohol or drug abuse patient.[facility] the event this information is protected by the Federal Confidentiality of Alcohol and Drug Abuse Patient Records regulations: The Federal rules restrict any use of the information to criminally investigate or prosecute any alcohol or drug abuse patient.[facility] the event this information is protected by the Federal Confidentiality of Alcohol and Drug Abuse Patient Records regulations: The Federal rules restrict any use of the information to criminally investigate or prosecute any alcohol or drug abuse patient.[facility] the event this information is protected by the Federal Confidentiality of Alcohol and Drug Abuse Patient Records regulations: The Federal rules restrict any use of the information to criminally investigate or prosecute any alcohol or drug abuse patient.[facility] the event this information is protected by the Federal Confidentiality of Alcohol and Drug Abuse Patient Records regulations: The Federal rules restrict any use of the information to criminally investigate or prosecute any alcohol or drug abuse patient.[facility] HospitalIn the event this information is protected by the Federal Confidentiality of Alcohol and Drug Abuse Patient Records regulations: The Federal rules restrict any use of the information to criminally investigate or prosecute any alcohol or drug abuse patient.[facility] HospitalIn the event this information is protected by the Federal Confidentiality of Alcohol and Drug Abuse Patient Records regulations: The Federal rules restrict any use of the information to criminally investigate or prosecute any alcohol or drug abuse patient.[facility] HospitalIn the event this information is protected by the Federal Confidentiality of Alcohol and Drug Abuse Patient Records regulations: The Federal rules restrict any use of the information to criminally investigate or prosecute any alcohol or drug abuse patient.[facility] HospitalIn the event this information is protected by the Federal Confidentiality of Alcohol and Drug Abuse Patient Records regulations: The Federal rules restrict any use of the information to criminally investigate or prosecute any alcohol or drug abuse patient.[facility] HospitalIn the event this information is protected by the Federal Confidentiality of Alcohol and Drug Abuse Patient Records regulations: The Federal rules restrict any use of the information to criminally investigate or prosecute any alcohol or drug abuse patient.[facility] HospitalIn the event this information is protected by the Federal Confidentiality of Alcohol and Drug Abuse Patient Records regulations: The Federal rules restrict any use of the information to criminally investigate or prosecute any alcohol or drug abuse patient.[facility] HospitalIn the event this information is protected by the Federal Confidentiality of Alcohol and Drug Abuse Patient Records regulations: The Federal rules restrict any use of the information to criminally investigate or prosecute any alcohol or drug abuse patient.[facility] HospitalIn the event this information is protected by the Federal Confidentiality of Alcohol and Drug Abuse Patient Records regulations: The Federal rules restrict any use of the information to criminally investigate or prosecute any alcohol or drug abuse patient.[facility] HospitalIn the event this information is protected by the Federal Confidentiality of Alcohol and Drug Abuse Patient Records regulations: The Federal rules restrict any use of the information to criminally investigate or prosecute any alcohol or drug abuse patient.[facility] HospitalIn the event this information is protected by the Federal Confidentiality of Alcohol and Drug Abuse Patient Records regulations: The Federal rules restrict any use of the information to criminally investigate or prosecute any alcohol or drug abuse patient.[facility] HospitalIn the event this information is protected by the Federal Confidentiality of Alcohol and Drug Abuse Patient Records regulations: The Federal rules restrict any use of the information to criminally investigate or prosecute any alcohol or drug abuse patient.[facility] HospitalIn the event this information is protected by the Federal Confidentiality of Alcohol and Drug Abuse Patient Records regulations: The Federal rules restrict any use of the information to criminally investigate or prosecute any alcohol or drug abuse patient.[facility] HospitalIn the event this information is protected by the Federal Confidentiality of Alcohol and Drug Abuse Patient Records regulations: The Federal rules restrict any use of the information to criminally investigate or prosecute any alcohol or drug abuse patient.[facility] HospitalIn the event this information is protected by the Federal Confidentiality of Alcohol and Drug Abuse Patient Records regulations: The Federal rules restrict any use of the information to criminally investigate or prosecute any alcohol or drug abuse patient.[facility] HospitalIn the event this information is protected by the Federal Confidentiality of Alcohol and Drug Abuse Patient Records regulations: The Federal rules restrict any use of the information to criminally investigate or prosecute any alcohol or drug abuse patient.[facility] HospitalIn the event this information is protected by the Federal Confidentiality of Alcohol and Drug Abuse Patient Records regulations: The Federal rules restrict any use of the information to criminally investigate or prosecute any alcohol or drug abuse patient.[facility] HospitalIn the event this information is protected by the Federal Confidentiality of Alcohol and Drug Abuse Patient Records regulations: The Federal rules restrict any use of the information to criminally investigate or prosecute any alcohol or drug abuse patient.[facility] HospitalIn the event this information is protected by the Federal Confidentiality of Alcohol and Drug Abuse Patient Records regulations: The Federal rules restrict any use of the information to criminally investigate or prosecute any alcohol or drug abuse patient.[facility] HospitalIn the event this information is protected by the Federal Confidentiality of Alcohol and Drug Abuse Patient Records regulations: The Federal rules restrict any use of the information to criminally investigate or prosecute any alcohol or drug abuse patient.[facility] HospitalIn the event this information is protected by the Federal Confidentiality of Alcohol and Drug Abuse Patient Records regulations: The Federal rules restrict any use of the information to criminally investigate or prosecute any alcohol or drug abuse patient.[facility] HospitalIn the event this information is protected by the Federal Confidentiality of Alcohol and Drug Abuse Patient Records regulations: The Federal rules restrict any use of the information to criminally investigate or prosecute any alcohol or drug abuse patient.[facility] HospitalIn the event this information is protected by the Federal Confidentiality of Alcohol and Drug Abuse Patient Records regulations: The Federal rules restrict any use of the information to criminally investigate or prosecute any alcohol or drug abuse patient.[facility] HospitalIn the event this information is protected by the Federal Confidentiality of Alcohol and Drug Abuse Patient Records regulations: The Federal rules restrict any use of the information to criminally investigate or prosecute any alcohol or drug abuse patient.[facility] HospitalIn the event this information is protected by the Federal Confidentiality of Alcohol and Drug Abuse Patient Records regulations: The Federal rules restrict any use of the information to criminally investigate or prosecute any alcohol or drug abuse patient.[facility] HospitalIn the event this information is protected by the Federal Confidentiality of Alcohol and Drug Abuse Patient Records regulations: The Federal rules restrict any use of the information to criminally investigate or prosecute any alcohol or drug abuse patient.[facility] HospitalIn the event this information is protected by the Federal Confidentiality of Alcohol and Drug Abuse Patient Records regulations: The Federal rules restrict any use of the information to criminally investigate or prosecute any alcohol or drug abuse patient.[facility] HospitalIn the event this information is protected by the Federal Confidentiality of Alcohol and Drug Abuse Patient Records regulations: The Federal rules restrict any use of the information to criminally investigate or prosecute any alcohol or drug abuse patient.[facility] HospitalIn the event this information is protected by the Federal Confidentiality of Alcohol and Drug Abuse Patient Records regulations: The Federal rules restrict any use of the information to criminally investigate or prosecute any alcohol or drug abuse patient.[facility] HospitalIn the event this information is protected by the Federal Confidentiality of Alcohol and Drug Abuse Patient Records regulations: The Federal rules restrict any use of the information to criminally investigate or prosecute any alcohol or drug abuse patient.[facility] HospitalIn the event this information is protected by the Federal Confidentiality of Alcohol and Drug Abuse Patient Records regulations: The Federal rules restrict any use of the information to criminally investigate or prosecute any alcohol or drug abuse patient.[facility] HospitalIn the event this information is protected by the Federal Confidentiality of Alcohol and Drug Abuse Patient Records regulations: The Federal rules restrict any use of the information to criminally investigate or prosecute any alcohol or drug abuse patient.[facility] HospitalIn the event this information is protected by the Federal Confidentiality of Alcohol and Drug Abuse Patient Records regulations: The Federal rules restrict any use of the information to criminally investigate or prosecute any alcohol or drug abuse patient.[facility] HospitalIn the event this information is protected by the Federal Confidentiality of Alcohol and Drug Abuse Patient Records regulations: The Federal rules restrict any use of the information to criminally investigate or prosecute any alcohol or drug abuse patient.[facility] HospitalIn the event this information is protected by the Federal Confidentiality of Alcohol and Drug Abuse Patient Records regulations: The Federal rules restrict any use of the information to criminally investigate or prosecute any alcohol or drug abuse patient.[facility] HospitalIn the event this information is protected by the Federal Confidentiality of Alcohol and Drug Abuse Patient Records regulations: The Federal rules restrict any use of the information to criminally investigate or prosecute any alcohol or drug abuse patient.[facility] HospitalIn the event this information is protected by the Federal Confidentiality of Alcohol and Drug Abuse Patient Records regulations: The Federal rules restrict any use of the information to criminally investigate or prosecute any alcohol or drug abuse patient.[facility] HospitalIn the event this information is protected by the Federal Confidentiality of Alcohol and Drug Abuse Patient Records regulations: The Federal rules restrict any use of the information to criminally investigate or prosecute any alcohol or drug abuse patient.[facility] HospitalIn the event this information is protected by the Federal Confidentiality of Alcohol and Drug Abuse Patient Records regulations: The Federal rules restrict any use of the information to criminally investigate or prosecute any alcohol or drug abuse patient.[facility] HospitalIn the event this information is protected by the Federal Confidentiality of Alcohol and Drug Abuse Patient Records regulations: The Federal rules restrict any use of the information to criminally investigate or prosecute any alcohol or drug abuse patient.[facility] HospitalIn the event this information is protected by the Federal Confidentiality of Alcohol and Drug Abuse Patient Records regulations: The Federal rules restrict any use of the information to criminally investigate or prosecute any alcohol or drug abuse patient.[facility] HospitalIn the event this information is protected by the Federal Confidentiality of Alcohol and Drug Abuse Patient Records regulations: The Federal rules restrict any use of the information to criminally investigate or prosecute any alcohol or drug abuse patient.[facility] HospitalIn the event this information is protected by the Federal Confidentiality of Alcohol and Drug Abuse Patient Records regulations: The Federal rules restrict any use of the information to criminally investigate or prosecute any alcohol or drug abuse patient.[facility] HospitalIn the event this information is protected by the Federal Confidentiality of Alcohol and Drug Abuse Patient Records regulations: The Federal rules restrict any use of the information to criminally investigate or prosecute any alcohol or drug abuse patient.[facility] HospitalIn the event this information is protected by the Federal Confidentiality of Alcohol and Drug Abuse Patient Records regulations: The Federal rules restrict any use of the information to criminally investigate or prosecute any alcohol or drug abuse patient.[facility] HospitalIn the event this information is protected by the Federal Confidentiality of Alcohol and Drug Abuse Patient Records regulations: The Federal rules restrict any use of the information to criminally investigate or prosecute any alcohol or drug abuse patient.[facility] HospitalIn the event this information is protected by the Federal Confidentiality of Alcohol and Drug Abuse Patient Records regulations: The Federal rules restrict any use of the information to criminally investigate or prosecute any alcohol or drug abuse patient.[facility] HospitalIn the event this information is protected by the Federal Confidentiality of Alcohol and Drug Abuse Patient Records regulations: The Federal rules restrict any use of the information to criminally investigate or prosecute any alcohol or drug abuse patient.[facility] HospitalIn the event this information is protected by the Federal Confidentiality of Alcohol and Drug Abuse Patient Records regulations: The Federal rules restrict any use of the information to criminally investigate or prosecute any alcohol or drug abuse patient.[facility] HospitalIn the event this information is protected by the Federal Confidentiality of Alcohol and Drug Abuse Patient Records regulations: The Federal rules restrict any use of the information to criminally investigate or prosecute any alcohol or drug abuse patient.[facility] HospitalIn the event this information is protected by the Federal Confidentiality of Alcohol and Drug Abuse Patient Records regulations: The Federal rules restrict any use of the information to criminally investigate or prosecute any alcohol or drug abuse patient.[facility] HospitalIn the event this information is protected by the Federal Confidentiality of Alcohol and Drug Abuse Patient Records regulations: The Federal rules restrict any use of the information to criminally investigate or prosecute any alcohol or drug abuse patient.[facility] HospitalIn the event this information is protected by the Federal Confidentiality of Alcohol and Drug Abuse Patient Records regulations: The Federal rules restrict any use of the information to criminally investigate or prosecute any alcohol or drug abuse patient.[facility] HospitalIn the event this information is protected by the Federal Confidentiality of Alcohol and Drug Abuse Patient Records regulations: The Federal rules restrict any use of the information to criminally investigate or prosecute any alcohol or drug abuse patient.[facility] HospitalIn the event this information is protected by the Federal Confidentiality of Alcohol and Drug Abuse Patient Records regulations: The Federal rules restrict any use of the information to criminally investigate or prosecute any alcohol or drug abuse patient.[facility] HospitalIn the event this information is protected by the Federal Confidentiality of Alcohol and Drug Abuse Patient Records regulations: The Federal rules restrict any use of the information to criminally investigate or prosecute any alcohol or drug abuse patient.[facility] HospitalIn the event this information is protected by the Federal Confidentiality of Alcohol and Drug Abuse Patient Records regulations: The Federal rules restrict any use of the information to criminally investigate or prosecute any alcohol or drug abuse patient.[facility] HospitalIn the event this information is protected by the Federal Confidentiality of Alcohol and Drug Abuse Patient Records regulations: The Federal rules restrict any use of the information to criminally investigate or prosecute any alcohol or drug abuse patient.[facility] HospitalIn the event this information is protected by the Federal Confidentiality of Alcohol and Drug Abuse Patient Records regulations: The Federal rules restrict any use of the information to criminally investigate or prosecute any alcohol or drug abuse patient.[facility] HospitalIn the event this information is protected by the Federal Confidentiality of Alcohol and Drug Abuse Patient Records regulations: The Federal rules restrict any use of the information to criminally investigate or prosecute any alcohol or drug abuse patient.[facility] HospitalIn the event this information is protected by the Federal Confidentiality of Alcohol and Drug Abuse Patient Records regulations: The Federal rules restrict any use of the information to criminally investigate or prosecute any alcohol or drug abuse patient.[facility] HospitalIn the event this information is protected by the Federal Confidentiality of Alcohol and Drug Abuse Patient Records regulations: The Federal rules restrict any use of the information to criminally investigate or prosecute any alcohol or drug abuse patient.[facility] HospitalIn the event this information is protected by the Federal Confidentiality of Alcohol and Drug Abuse Patient Records regulations: The Federal rules restrict any use of the information to criminally investigate or prosecute any alcohol or drug abuse patient.[facility] HospitalIn the event this information is protected by the Federal Confidentiality of Alcohol and Drug Abuse Patient Records regulations: The Federal rules restrict any use of the information to criminally investigate or prosecute any alcohol or drug abuse patient.[facility] HospitalIn the event this information is protected by the Federal Confidentiality of Alcohol and Drug Abuse Patient Records regulations: The Federal rules restrict any use of the information to criminally investigate or prosecute any alcohol or drug abuse patient.[facility] HospitalIn the event this information is protected by the Federal Confidentiality of Alcohol and Drug Abuse Patient Records regulations: The Federal rules restrict any use of the information to criminally investigate or prosecute any alcohol or drug abuse patient.[facility] HospitalIn the event this information is protected by the Federal Confidentiality of Alcohol and Drug Abuse Patient Records regulations: The Federal rules restrict any use of the information to criminally investigate or prosecute any alcohol or drug abuse patient.[facility] HospitalIn the event this information is protected by the Federal Confidentiality of Alcohol and Drug Abuse Patient Records regulations: The Federal rules restrict any use of the information to criminally investigate or prosecute any alcohol or drug abuse patient.[facility] HospitalIn the event this information is protected by the Federal Confidentiality of Alcohol and Drug Abuse Patient Records regulations: The Federal rules restrict any use of the information to criminally investigate or prosecute any alcohol or drug abuse patient.[facility] Reason for Visit (unrecogniz ed section [...] 08/10/2022 Reason Comments Follow Up Seen at [facility] on ay for stroke, was released [...] NECK REAL TIME IMGE DOCM Astrid Muse APRN.[facility] RECORDER [address] [place] [address] [place] [address] Referral ID Status Reason Start Date Expiration Date V isits Requested Visits Authorized [id number] Closed Auto-Generate d Referral 02/02/2024 03/03/2025 1 1 Reason Onset Date Comments Refill Request 02/14/2024 Reason Comments Recheck 6 week follow up Reason Comments Consult Thyroid Nodule Specialty Diagnoses / Procedures Referred By Contac t Referred To Contact General Surgery Diagnoses Thyroid nodule Procedures CONSULT TO GENERAL SURGERY OFFICE/OUTPATIENT [facility] 60 MINUTES Astrid Muse APRN.[address] RECORDER [address] [place] [address] Referral ID Status Reason Start Date Expiration Date V isits Requested Visits Authorized [id number] Closed PCP Requested Referral 02/10/2024 02/09/2025 1 1 Reason Comments Procedure Left thyroid Reason Comments Recheck 6 week follow up UTI and medication Reason Comments Acute Visit Urinary freq, discom fort when urinating, left flank pain, pelvic cramping x couple days Reason Onset Date Comments Refill Request 08/16/2024 Care Teams (unrecognized sec tion and content) Lawyer Relationship Specialty Start Date End Date Jones Velasquez MD [address] [place], [place] [id number] PCP - General Internal Medicine 02/24/16 Lawyer Relationship Specialty Start Date End Date Jones Velasquez MD [address] [place] [address] PCP - General Internal Medicine 02/24/16 Lawyer Relationship Specialty Start Date End Date Jones Velasquez MD [address] [facility] [place] [address] PCP - General Internal Medicine 02/24/16 Lawyer Relationship Specialty Start Date End Date Jones Velasquez MD [address] [facility] [place] [address] PCP - General Internal Medicine 02/24/16 Lawyer Relationship Specialty Start Date End Date Jones Velasquez MD [address] [facility] [place] [address] PCP - General Internal Medicine 02/24/16 Lawyer Relationship Specialty Start Date End Date Jones Velasquez MD [address] [facility] [place] [address] PCP - General Internal Medicine 02/24/16 Lawyer Relationship Specialty Start Date End Date Jones Velasquez MD [address] [facility] [place] [address] PCP - General Internal Medicine 02/24/16 Lawyer Relationship Specialty Start Date End Date Jones Velasquez MD [address] [facility] [place] [address] PCP - General Internal Medicine 02/24/16 Lawyer Relationship Specialty Start Date End Date Jones Velasquez MD [address] [facility] [place] [address] PCP - General Internal Medicine 02/24/16 Lawyer Relationship Specialty Start Date End Date Jones Velasquez MD [address] [facility] [place] [address] PCP - General Internal Medicine 02/24/16 Lawyer Relationship Specialty Start Date End Date Jones Velasquez MD [address] [facility] [place] [address] PCP - General Internal Medicine 02/24/16 Lawyer Relationship Specialty Start Date End Date Jones Velasquez MD [address] [facility] [place] [address] PCP - General Internal Medicine 02/24/16 Lawyer Relationship Specialty Start Date End Date Jones Velasquez MD [address] [facility] [place] [address] PCP - General Internal Medicine 02/24/16 Lawyer Relationship Specialty Start Date End Date Jones Velasquez MD [address] [place] [address] PCP - General Internal Medicine 02/24/16 Team [...] Primary Care Provider Active ASTRID MUSE , LOG ROPER-C Attending Provider, Referring Provide r Active Team [...] MD Primary Care Provider Active Dr. Tejas eLw MD Emergency Provider Active Dr. Christal Patiño MD Admit Provider, Other Provider A ctive Dr. Bea Gregg MD Attending Provider Active Lawyer Relationship Specialty Start Date End Date Jones Velasquez MD [address] [place] [address] PCP - General Internal Medicine 02/24/16 Lawyer Relationship Specialty Start Date End Date Jones Velasquez MD [address] [place] [address] PCP - General Internal Medicine 02/24/16 Lawyer Relationship Specialty Start Date End Date Jones Velasquez MD [address] [place] [address] PCP - General Internal Medicine 02/24/16 Team [...] MD Primary Care Provider Active ASTRID MUSE LOG ROPER-C Attending Provider, Referring Provide r Active Lawyer Relationship Specialty Start Date End Date Jones Velasquez MD [address] [place] [address] PCP - General Internal Medicine 02/24/16 Lawyer Relationship Specialty Start Date End Date Jones Velasquez MD [address] [place] [address] PCP - General Internal Medicine 02/24/16 Lawyer Relationship Specialty Start Date End Date Jones Velasquez MD [address] [place] [address] PCP - General Internal Medicine 02/24/16 Lawyer Relationship Specialty Start Date End Date Jones Velasquez MD [address] [place] [address] PCP - General Internal Medicine 02/24/16 Lawyer Relationship Specialty Start Date End Date Jones Velasquez MD [address] [place] [address] PCP - General Internal Medicine 02/24/16 Lawyer Relationship Specialty Start Date End Date Jones Velasquez MD [address] [place] [address] PCP - General Internal Medicine 02/24/16 Lawyer Relationship Specialty Start Date End Date Jones Velasquez MD [address] [place] [address] PCP - General Internal Medicine 02/24/16 Lawyer Relationship Specialty Start Date End Date Jones Velasquez MD [address] [place] [address] PCP - General Internal Medicine 02/24/16 Lawyer Relationship Specialty Start Date End Date Jones Velasquez MD [address] [place] [address] PCP - General Internal Medicine 02/24/16 Lawyer Relationship Specialty Start Date End Date Jones Velasquez MD [address] [place] [address] PCP - General Internal Medicine 02/24/16 Lawyer Relationship Specialty Start Date End Date Jones Velasquez MD [address] [place] [address] PCP - General Internal Medicine 02/24/16 Lawyer Relationship Specialty Start Date End Date Jones Velasquez MD [address] [place] [address] PCP - General Internal Medicine 02/24/16 Lawyer Relationship Specialty Start Date End Date Jones Velasquez MD [address] [place] [address] PCP - General Internal Medicine 02/24/16 Lawyer Relationship Specialty Start Date End Date Jones Velasquez MD [address] [place] [address] PCP - General Internal Medicine 02/24/16 Lawyer Relationship Specialty Start Date End Date Jnoes Velasquez MD [address] [place] [address] PCP - General Internal Medicine 02/24/16 Lawyer Relationship Specialty Start Date End Date Jones Velasquez MD [address] [place] [address] PCP - General Internal Medicine 02/24/16 Lawyer Relationship Specialty Start Date End Date Jones Velasquez MD [address] [place] [address] PCP - General Internal Medicine 02/24/16 Renetta Christie PA-C [address] [place], [place] [id number] [phone] Switchboard Operator Receptionist Family Medicine 02/13/[address] RECORDER [address] [place] [address] Switchboard Operator Receptionist Internal Medicine 02/13/24 Justine Castillo PA-C [address] [place] [address] Switchboard Operator Receptionist Family [facility] 02/13/24 Lawyer Relationship Specialty Start Date End Date Jones Velasquez MD [address] [place] [address] PCP - General Internal Medicine 02/24/16 Renetta Christie PA-C [address] [place] [address] Switchboard Operator Receptionist Family Medicine 02/13/[address] RECORDER [address] [place] [address] Switchboard Operator Receptionist Internal Medicine 02/13/24 Justnie Castillo PA-C [address] [place] [address] Switchboard Operator Receptionist Family [facility] 02/13/24 Lawyer Relationship Specialty Start Date End Date Jones Velasquez MD [address] [place] [address] PCP - General Internal Medicine 02/24/16 Renetta Christie PA-C [address] [place], [place] [id number] Switchboard Operator Receptionist Family Medicine 02/13/[address] RECORDER [address] [place] [address] Switchboard Operator Receptionist Internal Medicine 02/13/24 Justine Castillo PA-C [address] [place] [address] Switchboard Operator Receptionist Family Medicine 02/13/24 Lawyer Relationship Specialty Start Date End Date Jones Velasquez MD [address] [place] [address] PCP - General Internal Medicine 02/24/16 Renetta Christie PA-C [address] [place] [id number] Switchboard Operator Receptionist Family Medicine 02/13/[address] RECORDER [address] [place] [address] Switchboard Operator Receptionist Internal Medicine 02/13/24 Justine Castillo PA-C [address] [place] [address] Switchboard Operator Receptionist Family Medicine 02/13/24 Lawyer Relationship Specialty Start Date End Date Jones Velasquez MD [address] [place] [address] PCP - General Internal Medicine 02/24/16 Renetta Christie PA-C [address] [place] [address] Switchboard Operator Receptionist Family Medicine 02/13/[address] RECORDER [address] [place] [address] Switchboard Operator Receptionist Internal Medicine 02/13/24 Justine Castillo PA-C [address] [place] [address] Switchboard Operator Receptionist Family Medicine 02/13/24 Lawyer Relationship Specialty Start Date End Date Jones Velasquez MD [address] [facility] [place] [address] PCP - General Internal Medicine 02/24/[address] RECORDER [address] [place] [address] Switchboard Operator Receptionist Internal Medicine 02/13/24 Lawyer Relationship Specialty Start Date End Date Jones Velasquez MD [address] [place] [address] PCP - General Internal Medicine 02/24/[address] RECORDER [address] [place] [address] Switchboard Operator Receptionist Internal Medicine 02/13/24 Lawyer Relationship Specialty Start Date End Date Jones Velasquez MD [address] [place] [address] PCP - General Internal Medicine 02/24/[address] RECORDER [address] [place] [address] Switchboard Operator Receptionist Internal Medicine 02/13/24 Lawyer Relationship Specialty Start Date End Date Jones Velasquez MD [address] [place] [address] PCP - General Internal Medicine 02/24/[address] RECORDER [address] [place] [address] Switchboard Operator Receptionist Internal Medicine 02/13/24 Team Status: Active Member Role/Relationship Status Dates Dr. Jones Velasquez MD Family Provider Active [employer]-eLw Primary Care Provider Active Team Status: Inactive Member Role/Relationship Status Dates [employer]-C Primary Care Provider Active St art: September [...] section and content) DATE CREATED AUTHOR 01/29/2024 [facility] DATE CREATED AUTHOR AUTHOR'S ORGANIZ ATION 09/07/2024 [facility] DATE CREATED AUTHOR AUTHOR'S ORGANIZ ATION 09/08/2024 [facility] FOR RECORDS PERTAINING TO PATIENTS WHO ARE [...] BE BASED ON THE PRIMARY CLINICAL RECORDS. [employer] [facility]. provides no warranty or guarantee of the accuracy or completeness of information in this document.
[2024-09-08 12:04] VITALS: BP 110/55; PULSE 84; RESP 16; O2SAT 99
[2024-09-08 13:21] LABS: Mucous, Urine 0 SEEN /hpf (<or=2+); Red Blood Cells-Urine 0 SEEN /hpf (0-5); Squamous Epithelial Cells - UA 0 SEEN /hpf (5-10)
[2024-09-08 13:22] LABS: Color, Urine Yellow (Yellow); Glucose, Dipstick 1000 mg/dl (Normal); Ketone-Dipstick Negative (Negative); Leukocyte Esterase-Dipstick 500 /ul (Negative); Nitrite-Dipstick Positive (Negative); Occult Blood-Urine 150 /ul (Negative); Protein-Dipstick 30 mg/dl (Negative); Specific Gravity, Urine 1.010 (1.002-1.030); Urine Bilirubin Dipstick Negative (Negative)
[2024-09-08 14:00] VITALS: BP 98/45; PULSE 59; RESP 14; O2SAT 95
[2024-09-08 15:53] VITALS: BP 104/51; PULSE 59; RESP 14; TEMP 36.8; O2SAT 95
== END 2024-09-08 15:53 | disposition home or self-care (01) ==
PROVIDERS: Emergency Provider Emergency Medicine; PCP Nurse Practitioner; Visit Provider Emergency Medicine
DX: N13.2 Hydronephrosis with renal and ureteral calculous obstruction (principal); E11.9 Type 2 diabetes mellitus without complications; I25.10 Atherosclerotic heart disease of native coronary artery without angina pectoris; I25.2 Old myocardial infarction; Z86.73 Personal history of transient ischemic attack (TIA), and cerebral infarction without residual deficits
CPT/HCPCS: 74177; 80053; 81001; 85025; 87077; 87086; 87088; 87186; 96361; 96365; 96375; 96376; 99283; Q9967; A4216; J2405

== ENCOUNTER → 2024-09-26 | Outpatient (CLI) | payer MEDICARE, SELFPAY ==
--- NOTE | 2024-09-26 15:05 | RAD_ITS ---
PROCEDURE: ABDOMEN SINGLE VIEW 09/26/2024 REASON FOR EXAM: CALCULUS OF URETER TECHNIQUE: ABDOMEN SINGLE VIEW COMPARISON: CT abdomen and pelvis 09/09/2019 FINDINGS: Bowel gas: Bowel gas pattern is normal. No evidence of bowel obstruction. Calcifications: Calcifications in the left pelvis measuring 6 mm and 3 mm. Bones: There are degenerative changes of the spine and hips. Other: Right upper quadrant surgical clips suggest prior cholecystectomy. RAD/Abdomen Single View IMPRESSION: Left pelvic calcifications measuring up to 6 mm may represent left distal urete r stones seen on CT dated 09/08/2024. Reading Location: [id number]
--- OUTSIDE RECORDS SUMMARY | 2024-09-26 21:21 | XMS RPT_ITS | CCD ---
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 Karl Wall DO Emergency Provider [phone] GANTA, JONES Primary Care Unavailable OLDER, ASTRID Referring Unavailable GANTA, JONES Primary Care Unavailable OLDER, ASTRID Attending Unavailable GANTA, JONES Primary Care Unavailable GANTA, JONES Primary Care Unavailable GANTA, JONES Primary Care Unavailable OLDER, ASTRID Referring Unavailable GANTA, JONES Primary Care Unavailable OLDER, ASTRID Attending Unavailable GANTA, JONES Primary Care Unavailable GANTA, JONES Primary Care Unavailable OLDER, ASTRID Referring Unavailable CANDI, JUSTIN P Attending Unavailable GANTA, JONES Primary Care Unavailable CANDI, JUSTIN P Attending Unavailable GANTA, JONES Primary Care Unavailable [...] Care Unavailable GANTA, JONES Primary Care Unavailable SELF Referring Unavailable OLDER, ASTRID Attending Unavailable OLDER, ASTRID Primary Care Unavailable Sho Vazquez Attending Unavail able OLDER, ASTRID Referring Unavailable Ganta, Jones Referring Unavailable BaddoFabiano moran Attending Unavailable OLDER, ASTRID Primary Care Unavailable OLDER, ASTRID Primary Care Unavailable Karl Wall Attending Unavailable Allergies Allergy Classification Reported Allergen(s) Allergy Type Date of Onset Reaction(s) Facility (8 sources) Penicillins; Translations: [PENICILLINS] Propensity to adverse reactions [address] [facility] (20 sources) Propoxyphene; Translations: [PROPOXYPHENE HCL] Drug Allergy [address] [facility] (20 sources) Penicillins Propensity to adverse reactions [address] [facility] (5 sources) Penicillins Allergy to substance 3 Rash [facility] (5 sources) Propoxyphene Drug Allergy 3 Nausea/Vom/Diar marilyn [facility] (8 sources) Penicillins Propensity to adverse reactions 9 [facility] (1 source) Penicillins Drug allergy (disorder) 5 [facility] Repository (1 source) Propoxyphene Drug Allergy 5 [facility] Repository Medications Current Medications Medication Drug Class(es) Dates Sig (Normalized) Sig (Original) acetaminophen 325 mg / oxyCODONE hydrochloride 5 mg oral tablet (1 source) Opioid Agonist Start: 09-08-2024 take 1 tablet by mouth every six hours as needed for pain Oxycodone-Acetamin ophen (Endocet) 5-325 mg tablet Active 1 {tbl} PO EVERY 6 HOURS as needed for pain 12 3 0 September 08, 2024 Urolithiasis Urinary calculus, unspecified atorvastatin 80 mg oral tablet (20 sources) HMG-CoA Reductase Inhibitor Start: 02-08-2020 End: 06-09-2024 take 1 tablet by mouth once daily atorvastatin (LIPITOR) 80 mg tablet Take 1 tablet by mouth once daily. 90 tablet 3 06/09/2024 Active Comment on above: Take 1 tablet by brody th daily at bedtime. For cholesterol. benzonatate 100 mg oral capsule (5 sources) [...] monitoring kit (1 source) Start: 5 End: 5 Blood-Glucose Meter monitoring kit Glucose Meter of Choice - Kit - Dx: Type 2 DM - Controlled E11.9 1 Each 04/28/2024 04/29/2024 Active cefdinir 300 mg oral capsule (2 sources) Cephalosporin Antibacterial Start: End: take 1 capsule by mouth twice daily cefdinir (OMNICEF) 300 mg capsule Take 1 capsule by mouth two times a day for 7 days. 14 capsule 04/28/2024 05/05/2024 Active Start: 01-22-2024 End: 01-27-2024 cefdinir 300 mg oral capsule Dose : 300 mg = 1 cap(s), Oral, q12h, X 5 day(s), # 10 cap(s), 0 Refill(s), 01/27/24 8:00:00 AM EST, Pharmacy: [facility] 181, 157.5, cm, 01/21/24 1:17:00 EST, Height, 82.5, [...] on above: Take 1 capsule by mo [facility] twice daily for 7 days. ciprofloxacin 500 mg oral tablet (3 sources) Quinolone Antimicrobial Start: 09-08-2024 End: 09-25-2024 take 1 tablet by mouth twice daily Ciprofloxacin Hcl 500 mg tablet Active 500 mg PO TWICE A DAY 10 5 0 September 08, 2024 12:00am clopidogrel 75 mg oral tablet (20 sources) P2Y12 Platelet Inhibitor Start: 08-28-2022 End: 06-09-2024 take 1 tablet by mouth once daily clopidogrel (PLAVIX) 75 mg tablet Indications: Occipital stroke (HCC) , Type 2 diabetes mellitus with hyperglycemia, without long-term current use of insulin (HCC) Take 1 tablet by mouth once daily. Take 75 mg by mouth once daily. 90 tablet 3 06/09/2024 Active Start: 03-07-2020 End: 04-03-2020 take 1 tablet [...] once daily. Take 1 tablet by brody th once daily. Take 75 mg by mouth [...] Cotransporter 2 Inhibitor Start: 10-15-19 End: 10-07-19 take 1 tablet by mouth once daily, then take 1 tablet by mouth once daily in the morning empagliflozin (JARDIANCE) 25 mg tablet Indications: Type 2 diabetes mellitus with hyperglycemia, without long-term current use of insulin (HCC) Take 1 tablet by mouth once daily. Take 1 tablet once daily in the morning 90 tablet 3 10/07/2023 Active Start: 09-18-2022 End: 10-14-2022 take 1 tablet [...] tablet by brody th once daily. Take 1 tablet once daily in the morning fluticasone propionate 0.05 mg/actuat metered dose nasal spray (20 sources) Corticosteroid Start: 12-01-19 take 2 spray(s) nasal route once daily fluticasone (FLONASE) 50 mcg/actuation nasal spray Use 2 Sprays in each nostril once daily. 3 Bottle 3 11/30/2014 Active Comment on above: Use 2 Sprays in each nostril once daily. levothyroxine sodium 0.05 mg oral tablet (20 sources) l-Thyroxine Start: 01-21-20 levothyroxine 50 mcg (0.05 mg) oral tablet [...] (20 sources) Angiotensin 2 Receptor Oneal Start: 09-25-2024 losartan (COZAAR) 25 mg tablet Take 1 tablet by mouth once daily. Changed at [facility] ER 09/0809/25/2024 Active Start: 09-06-2024 take 1 tablet by brody th once daily Losartan 25 mg tablet Active 25 mg PO DAILY 90 3 September 06, 2024 8:56am high bp Start: 09-06-2024 End: 09-06-2024 Losartan 50 mg tablet Discon tinued 25 mg PO DAILY September 06, 2024 8:55am September 06, 2024 8:56am high bp Start: 03-15-2019 End: 09-25-2024 take 1 tablet by mouth once daily losartan (COZAAR) 50 mg tablet Indications: Essential hypertension Take 1 tablet by mouth once daily. 90 tablet 3 10/27/2023 09/25/2024 Discontinued (Adjust Sig - Block E-Cancel) Comment on above: Take 1 tablet by brody th once daily. mecobalamin (1 source) Start: 02-13-20 inject 1000 ug by intramuscular injection every month Mecobalamin (Vitamin B12) Active 1000 MCG IM MONTHLY February 13, 2020 1:00am 24 hr metFORMIN hydrochloride 500 mg extended release oral tablet (20 sources) Biguanide Start: 01-21-20 take 2 tablets by mouth twice daily at mealtime MetFORMIN (Eqv-Glucophage XR) [...] pm Start: 02-06-2020 take 1000 mg by mouth at dinne r Metformin Active 1000 MG PO WITH DINNER February 06, 2020 1:00am Start: 08-16-2018 End: 09-06-2024 Metformin 500 MG tablet Discontinued 0 .ROUTE .COMPLEX February 06, 2020 1:00am [...] by mo uth twice daily with meals ondansetron 4 mg disintegrating oral tablet (8 sources) Serotonin-3 Receptor Antagonist Start: 09-08-2024 ondansetron orally disintegrating (ZOFRAN ODT) 4 mg disintegrating tablet 09/08/2024 Active Start: 02-13-2020 End: 08-12-2021 take 1 tablet by mouth three times daily as needed for nausea and vomiting Ondansetron Hcl (Zofran) 4 mg tablet Discontinued 4 mg PO THREE TIMES A DAY as needed for nausea and vomiting 90 1 February 13, 2020 1:00am August 12, 2021 10:50am sulfamethoxazole 800 mg / trimethoprim 160 mg oral tablet (1 source) Dihydrofolate Reductase Inhibitor Antibacterial, Sulfonamide Antimicrobial Start: 07-25-2024 End: 07-30-2024 take 1 tablet by mouth twice daily sulfamethoxazole-trimethoprim (BACTRIM DS) 800-160 mg per tablet Take 1 tablet by mouth two times a day for 5 days. 10 tablet 07/25/2024 07/30/2024 Active vitamin b12 1 mg/ml injectable solution (20 sources) Vitamin B12 Start: 02-21-2024 End: 01-21-2025 cyanocobalamin 1,000 mcg injection Start: 02-21-2024 End: 01-21-2025 1,000 mcg, INTRAMUSCULAR, EV RAMIRO 4 WEEKS, 12 doses, First dose on 02/21/24 at 0000, Last dose on Wed12/25/24 at 0000 Start: 03-15-2023 End: 02-13-2024 1,000 mcg, INTRAMUSCULAR, EV RAMIRO 4 WEEKS, 12 doses, First dose on 03/15/23 at 0000, Last dose on 01/17/24 at 0000 Start: 03-15-2023 End: 02-13-2024 cyanocobalamin [...] tablet (20 sources) Factor Xa Inhibitor Start: 04-03-2020 End: 09-06-2024 take 1 tablet by mouth twice daily Apixaban (Eliquis) 5 mg tablet Discontinued 5 mg PO TWICE A DAY 180 3 September 27, 2023 11:47am September 06, 2024 8:56am Comment on above: Take by mouth twice daily. aspirin 81 mg chewable tablet (20 sources) [...] 1 tablet by brody th once daily. cholecalciferol 0.025 mg oral capsule (20 sources) [...] once daily. lidocaine 0.05 mg/mg medicated patch (9 sources) Antiarrhythmic, Amide Local Anesthetic Start: 3 End: 4 apply 1 dose topically once daily Lidocaine 5 % Adhesive Patch,Medicated Discontinued 1 NMA TOPICAL DAILY 15 15 0 August 28, 2022 12:00am August 09, [...] placing new patch. Location: right lower back. metoprolol tartrate 25 mg oral tablet (20 sources) beta-Adrenergic Oneal Start: 0 End: 5 take 1 tablet by mouth twice daily Metoprolol Tartrate 25 mg tablet Discontinued 25 mg PO TWICE A DAY 180 3 December 06, 2023 1:37pm September 06, 2024 8:56am Comment on above: Take 25 mg by mouth twice daily. nystatin 100 unt/mg topical powder (4 sources) Polyene Antifungal Start: 3 End: 5 Nystatin (Nyamyc) 100,000 unit/gram Powder Discontinued 1 NMA TOPICAL THREE TIMES A DAY 30 14 0 August 28, 2022 12:00am September 06, 2024 8:16am July d/c once fungal infection resolved. Please contact the information source for Protocol details. Start: 08-28-2022 Nystatin (Nyam yc) 100,000 unit/gram Powder Active 1 APPLIC TOPICAL THREE TIMES A DAY 30 14 August 28, 2022 12:00am July d/c once fungal infection resolved. pravastatin sodium 80 mg oral tablet (5 sources) HMG-CoA Reductase Inhibitor Start: 08-16-2018 End: [...] Take 1 tablet by brody th daily before breakfast. SITagliptin 100 mg oral [...] 1 tablet by brody th once daily. tamsulosin hydrochloride 0.4 mg oral capsule (3 sources) alpha-Adrenergic Oneal Start: End: tamsulosin (FLOMAX) 0.4 mg 09/08/2024 09/25/2024 Discontinued terconazole 8 mg/ml vaginal cream (20 sources) Azole Antifungal Start: 3 End: terconazole vaginal cream (TERAZOL) 0.8 % vaginal cream Indications: Acute vaginitis Use 1 Applicator vaginally daily at bedtime. 20 g 12/09/2022 09/25/2024 Discontinued Comment on above: Use 1 Applicator vag inally daily at bedtime. tiZANidine 2 mg oral capsule (10 sources) Central alpha-2 Adrenergic Agonist Start: 3 [...] on above: Take 1 tablet by brody every 8 hours as needed (muscle spasms). Problems Active Problems Problem Classification Problem Date Documented Da te Episodic/Chronic Abdominal pain (7 sources) Tenderness of left upper quadrant of [...] 02-14-2020 02-14-2020 Chronic Blindness and vision defects (5 sources) Eye / vision finding; Translations: [Unspecified visual disturbance] 08-11-2021 Episodic Calculus of urinary tract (4 sources) Urolithiasis ; Translations: [Urinary calculus, unspecified] Onset: 09-11-2024 09-08-2024 Episodic Cardiac dysrhythmias (20 sources) Paroxysmal atrial fibrillation; Translations: [Paroxysmal atrial fibrillation] Onset: 05-15-2020 05-15-2020 Chronic Chronic obstructive pulmonary disease and bronchiectasis (1 source) Bronchitis; Translations: [Bronchitis, not specified as acute or chronic] Episodic Coronary atherosclerosis and other heart disease (15 sources) History of non-ST segment elevation myocardial [...] 09-25-2014 09-25-2014 Chronic Fluid and electrolyte disorders (5 sources) Lactic acidosis; Translations: [Lactic acidosis] 02-21-2020 Episodic Gastrointestinal hemorrhage (1 source) Hematochezia; Translations: [Melena] Episodic Genitourinary symptoms and ill-defined conditions (5 sources) Increased frequency of urination; Translations: [Frequency of micturition] Onset: 07-25-2024 Episodic Heart valve disorders (7 sources) Mitral valve annular calcification; Translations: [Mitral valve annular calcification] 04-01-2020 Chronic Comment on above: severe Inflammatory diseases of female pelvic organs (3 sources) Acute vaginitis; Translations: [Acute vaginitis] 10-14-2022 Episodic Malaise and fatigue (3 sources) Fatigue; Translations: [Other fatigue] Episodic Nausea and vomiting (2 sources) Nausea and vomiting; Translations: [Nausea with vomiting, unspecified] Onset: 01-21-2024 Episodic Nutritional deficiencies (1 source) Vitamin D deficiency; Translations: [Vitamin D deficiency, unspecified] Chronic Other aftercare (1 source) Long-term current use of oral hypoglycemic medication; Translations: [terminal carman (current) use of oral hypoglycemic drugs] 07-25-2024 Episodic Other aftercare (1 source) terminal carman (current) use of oral hypoglycemic drugs; Translations: [group home (current) use of oral hypoglycemic drugs] Onset: 07-25-2024 Episodic Other circulatory disease (4 sources) H/O: hypertension; Translations: [Personal history of other diseases of the circulatory system] 08-25-2022 Episodic Other circulatory disease (4 sources) History of cerebrovascular accident; Translations: [Personal [...] Other hereditary and degenerative nervous system conditions (2 sources) Essential tremor; Translations: [Essential tremor] 03-14-2024 Chronic Other nervous system disorders (4 sources) Expressive dysphasia; 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] 08-25-2022 Chronic Other nervous system disorders (4 sources) Receptive dysphasia; 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] 08-25-2022 Chronic [...] Chronic Other nutritional; endocrine; and metabolic disorders (4 sources) H/O: diabetes mellitus; Translations: [Personal history of other endocrine, nutritional and metabolic disease] 08-25-2022 Episodic Other nutritional; endocrine; and metabolic disorders (1 source) Personal history of other endocrine, nutritional and metabolic disease; Translations: [Personal history of other endocrine, metabolic, and immunity disorders] 08-28-2022 Episodic Other screening for suspected conditions (not mental disorders or infectious disease) (5 sources) Thyroid hormone tests abnormal; Translations: [Other specified abnormal findings of blood chemistry] Episodic Other upper respiratory disease (20 sources) Allergic rhinitis; Translations: [Other allergic rhinitis] Onset: 09-25-2014 09-25-2014 Chronic Residual codes; unclassified (2 sources) History of clinical finding in subject; Translations: [Personal history of other medical treatment] Episodic Screening and history of mental health and substance abuse codes (2 sources) Patient encounter status; Translations: [Encounter for screening for depression] 09-25-2024 Episodic Spondylosis; intervertebral disc disorders; other back problems (4 sources) Acute back pain with sciatica; Translations: [Lumbago with sciatica, right side] Episodic Syncope (5 sources) Syncope; Translations: [Syncope and collapse] 02-21-2020 Episodic Thyroid disorders (18 sources) Hypothyroidism; Translations: [Hypothyroidism, unspecified] Onset: 10-26-2023 Chronic Transient cerebral ischemia (1 source) Transient cerebral ischemia; Translations: [Transient cerebral ischemic attack, unspecified] Onset: 01-21-2024 Chronic Unclassified (4 sources) Type 2 diabetes mellitus without complication; Translations: [Diabetes mellitus type 2, uncontrolled, without complications] Onset: 02-19-2015 02-19-2015 Urinary tract infections (13 sources) Acute cystitis; Translations: [Acute cystitis without [...] B group vitamins] Onset: 06-12-2020 Episodic Unclassified (5 sources) Acute diarrheal illness 02-21-2020 Results Test Name Value Interpretation Reference Range Facility [facility] 09-11-2024 [facility] Office Visit (INTMWS ) BRITNEY CANADA ([id number]) 1945 F Date Time Provider Department 09/11/24 9:40 AM ASTRID MUSE INTMWS During your visit today, we recorded the following information about you: Temperature Pulse Respiration Blood pressure 97.5 degrees 74/minute 18/minute 112/80 Weight 82.1 kg Astrid Muse APRN.CNP 09/11/2024 4:45 PM Signed CC: Patient presents with: F/U 3 Month HPI Britney David [place] is a 78 year old female who presents today for follow up but was also recently in the ER. Recording using [employer] software for draft documentation of the visit was discussed with the patient/authorized dermatology sales representative; all questions welcomed and answered. Patient/authorized dermatology sales representative agreed to proceed Nephrolithiasis: - ED visit 3 days ago for dry heaves and back pain; CT scan revealed two kidney stones (6 mm and 4 mm). - Treated with antiemetics and analgesics in the ED; did not require overnight stay. - Currently taking tamsulosin and Zofran. - Reports mild back pain, managed with Tylenol. - No history of kidney stones. - Denies hematuria or dysuria; reports variable urine output, trying to maintain hydration. - Brother is a retired urologist, providing guidance via the telephone. Diabetes Mellitus: - Currently taking Jardiance. - Recent A1c was 7.0%. - Has not been monitoring blood glucose levels recently; denies hypoglycemic episodes even with decreased intake due to nausea and pain Hypertension: - Recent BP reading was 93/63 mmHg; usual BP is low but not this low. - Quill Worker reduced losartan dosage by half. - Reports improvement in balance since dosage reduction. - Denies dizziness or syncope but notes unsteadiness on feet. - Reports a headache today, believes it is sinus-related. - Denies any chest pain, dyspnea, or new numbness. Recurrent UTIs: - History of recurrent UTIs, though not frequent over the years. The concern was jardiance increasing this but she feels this is not the case Diet: - Trying to eat healthy; finds it challenging at times. REVIEW OF SYSTEMS See HPI PAST MEDICAL HISTORY Diagnosis Date Abnormal mammogram, unspecified Diabetes mellitus without mention of complication High blood pressure High cholesterol Thyroid disease PAST SURGICAL HISTORY Procedure Laterality Date CHOLECYSTECTOMY 1989 RPR UMBILICAL HRNA 5 YRS/> REDUCIBLE STEREOTACTIC CORE BIOPSY 10/18/08 RIGHT BREAST ALLERGIES Darvon [Propoxyphene Hcl] and Penicillins MEDICATIONS ciprofloxacin HCl (CIPRO) 500 mg tabletTake 500 mg by mouth two times a day.Disp: Rfl: ondansetron orally disintegrating (ZOFRAN ODT) 4 mg disintegrating tabletDisp: Rfl: tamsulosin (FLOMAX) 0.4 mgDisp: Rfl: levothyroxine (LEVOXYL) 50 mcg tabletTake 1 tablet by mouth once daily. Take on empty stomach. For ThyroidDisp: 90 tabletRfl: 1 atorvastatin (LIPITOR) 80 mg tabletTake 1 tablet by mouth once daily.Disp: 90 tabletRfl: 3 clopidogrel (PLAVIX) 75 mg tabletTake 1 tablet by mouth once daily. Take 75 mg by mouth once daily.Disp: 90 tabletRfl: 3 losartan (COZAAR) 50 mg tabletTake 1 tablet by mouth once daily.Disp: 90 tabletRfl: 3 (Patient taking differently: Take 25 mg by mouth once daily. Changed at [facility] ER 09/08) metFORMIN ER (GLUCOPHAGE XR) 500 mg 24 hr tabletTake 2 tablets by mouth two times a day with meals.Disp: 360 tabletRfl: 3 metoprolol tartrate, short acting, (LOPRESSOR) 25 mg tabletTake 25 mg by mouth twice daily.Disp: Rfl: apixaban (ELIQUIS) 5 mg tab(s)Take by mouth twice daily.Disp: Rfl: LancetsTest blood sugar(s) 1 times daily. Dx: Type 2 DM - Controlled E11.9 Insulin: NoDisp: 100 EachRfl: 11 blood sugar diagnostic (BLOOD GLUCOSE TEST) test stripTest blood sugar(s) 1 times daily. Dx: Type 2 DM - Controlled E11.9 Insulin: NoDisp: 50 StripRfl: 11 empagliflozin (JARDIANCE) 25 mg tabletTake 1 tablet by mouth once daily. Take 1 tablet once daily in the morningDisp: 90 tabletRfl: 3 terconazole vaginal cream (TERAZOL) 0.8 % vaginal creamUse 1 Applicator vaginally daily at bedtime.Disp: 20 gRfl: 0 (Patient not taking: Reported on 07/25/2024) cyanocobalamin 1,000 mcg/mLInject 1 mL intramuscularly once every month.Disp: 1 mLRfl: 12 blood sugar diagnostic (BLOOD GLUCOSE TEST) test stripTest blood sugar(s) 2 times daily. Dx: Type 2 DM - Uncontrolled E11.65 Insulin: NoDisp: 100 StripRfl: 5 Lancets lancetsTest blood sugar(s) two times times daily. Dx: Other DM Code E11.65 Insulin: NoDisp: 100 EachRfl: 11 fluticasone (FLONASE) 50 mcg/actuation nasal sprayUse 2 Sprays in each nostril once daily.Disp: 3 BottleRfl: 3 FAMILY HISTORY Problem Relation Age of Onset Prostate Cancer Father Breast Cancer Mother 40 Coronary Artery Disease Mother pace maker Coronary Artery Disease Father triple bypass Social History Tobacco Use Smoking status: Never Smokeless tobacco: (more content not included)... Normal [facility] Urine Cultureon 09-10-2024 [facility] Escherichia coli [place] Count >100,000 Escherichia coli: REACTION Ampicillin Islt AVILA <=2 Ampicillin+Sulbac Islt AVILA <=2 S Cefepime Islt AVILA <=0.12 S cefTRIAXone Islt AVILA <=0.25 S Ciprofloxacin Islt AVILA <=0.06 S B-Lactamase Extended Susc Islt NEG Gentamicin Islt AVILA <=1 S levoFLOXacin Islt AVILA <=0.12 S Meropenem Islt AVILA <=0.25 S Nitrofurantoin Islt AVILA <=16 S Pip+Tazo Islt AVILA <=4 S TMP SMX Islt AVILA <=20 S Normal [facility] Comment on above: Performed By: #### M [id number] #### [facility] Laboratory [address] [place], [place], [address] Abdomen/Pelvis W IV Cont ONL Yon 09-08-2024 Abdomen/Pelvis W IV Cont ONLY [facility] [address] [place], [place] [id number] Abdomen/Pelvis W IV Cont ONLY MR#: [id number] Acct: [id number] Name: BRITNEY CANADA Rep #: [id number] : 1945 F 78 From: [place]onta Duke PCP: ASTRID MUSE, SHEEP SORTER-C Status: REG ER Study: Abdomen/Pelvis W IV Cont ONLY Date of Exam: Exam# [id number] Ordering Dr: Karl Wall DO PROCEDURE: ABDOMEN/PELVIS W IV CONT ONLY 09/08/2024 REASON FOR EXAM: L FLANK AND LLQ PAIN TECHNIQUE: ABDOMEN/PELVIS W IV CONT ONLY Coronal and Sagittal reconstruction series were provided. CONTRAST: 100 mL of Isovue 370 One or more dose reduction techniques were used (e.g., Automated exposure control, adjustment of the mA and/or kV according to patient size, use of iterative reconstruction technique. RADIATION DOSE SUMMARY: DLP: 1066 mGycm COMPARISON: 03/15/21 FINDINGS: Limited sections of the lung bases demonstrate no focal pulmonary mass or consolidations. Bibasilar subsegmental atelectasis. The liver, spleen, pancreas, and both adrenal glands demonstrate no acute findings. The gallbladder is surgically absent. Small hiatal hernia; otherwise unremarkable stomach. The small bowel loops are not dilated. The appendix is normal. No colonic obstruction. There is no free air or significant free fluid. 6 mm and 4 mm obstructive stones at the distal left ureter and UVJ, respectively, with associated moderate hydronephrosis and perinephric stranding. The right collecting system is unremarkable. The urinary bladder is partially distended. The pelvic structures are intact. There is no solid pelvic mass. No significant lymphadenopathy. The aorta and IVC demonstrate no acute findings. moderate atherosclerosis of the abdominal vasculature. Visualized osseous structures demonstrate no acute abnormality. CT/Abdomen/Pelvis W IV Cont ONLY IMPRESSION: 6 mm and 4 mm obstructive stones at the distal left ureter and UVJ, respectively, with associated moderate hydronephrosis and perinephric stranding. Reading Location: [facility] CC: LAURA MUSE; Dr. Karl Wall DO Spa Associate: Signed Normal [facility] Absolute lymphocyte countOrd ered By: Karl Wall on 09-08-2024 Lymphocytes Auto (Unsp spec) [#/Vol] 1.17 10*3/uL 0.83-4.51 [facility] Absolute neutrophil countOrd ered By: Karl Wall on 09-08-2024 Neutrophils (Bld) [#/Vol] 9.7 10*3/uL High 2.0-7.7 [facility] Anion gap in Serum or Plasma Ordered By: Karl Wall on 09-08-2024 Anion gap [Moles/Vol] 14 mmol/L 5-15 [facility] Automated lymphocyte count a s percentage of total leukocytesOrdered By: Karl Wall on 09-08-2024 Lymphocytes/100 WBC Auto (Unsp spec) 10.2 % Low 19-41 [facility] BUN/creatinine ratioOrdered By: Karl Wall on 09-08-2024 Urea nitrogen/Creatinine [Mass ratio] 20.2 mg/mg High 10-20 [facility] Basophil percentageOrdered B y: Karl Wall on 09-08-2024 Basophils/100 WBC (Bld) 0.4 % 0-1 [facility] Bilirubin Test strip Ql (U)O rdered By: Karl Wall on 09-08-2024 Bilirubin Ql (U) Negative Negative [facility] Bilirubin, totalOrdered By: Karl Wall on 09-08-2024 Bilirubin [Mass/Vol] 0.62 mg/dL 0.00-1.30 [facility] CBC W/Diff, Automatedon 07-0 Absolute Lymph 1.17 X10 3/uL Normal 0.83-4.51 [facility] Comment on above: Performed By: #### L 100.0100, L500.4050 #### [facility] Laboratory [address] [place], [address] Absolute Neut 9.7 X10 3/uL High 2.0-7.7 [facility] Comment on above: Performed By: #### L 100.0100, L500.4050 #### [facility] Laboratory [address] [place], [address] Basophils/100 WBC (Bld) 0.4 % Normal 0-1 [facility] Comment on above: Performed By: #### L 100.0100, L500.4050 #### [facility] Laboratory [address] [place], [address] Eosinophils/100 WBC (Bld) 0.0 % Normal 0-5 [facility] Comment on above: Performed By: #### L 100.0100, L500.4050 #### [facility] Laboratory [address] [place], [address] Erythrocyte distribution width (RBC) [Ratio] 15.8 % High 11.6-14.6 [facility] Comment on above: Performed By: #### L 100.0100, L500.4050 #### [facility] Laboratory [address] [place], [address] Hematocrit (Bld) [Volume fraction] 37.7 % Normal 37-47 [facility] Comment on above: Performed By: #### L 100.0100, L500.4050 #### [facility] Laboratory [address] [place], [address] Hemoglobin (Bld) [Mass/Vol] 12.1 g/dL Normal 12.0-15.0 [facility] Comment on above: Performed By: #### L 100.0100, L500.4050 #### [facility] Laboratory [address] [place], [address] IG% 0.300 Normal 0.0-0.9 [facility] Comment on above: Result Comment: IG% - Immature Granulocytes (promyelocytes, myelocytes and metamyelocytes) > 1% indicates that a LEFT SHIFT is Present. Performed By: #### L 100.0100, L500.4050 #### [facility] Laboratory [address] [place], [address] Lymphocytes/100 WBC (Bld) 10.2 % Low 19-41 [facility] Comment on above: Performed By: #### L 100.0100, L500.4050 #### [facility] Laboratory [address] [place], [address] MCH (RBC) [Entitic mass] 27.1 pg Normal 27.0-32.0 [facility] Comment on above: Performed By: #### L 100.0100, L500.4050 #### [facility] Laboratory [address] [place], [address] MCHC (RBC) [Mass/Vol] 32.1 g/dL Normal 32-36 [facility] Comment on above: Performed By: #### L 100.0100, L500.4050 #### [facility] Laboratory [address] [place], [address] MCV (RBC) [Entitic vol] 84.3 fL Normal 81-99 [facility] Comment on above: Performed By: #### L 100.0100, L500.4050 #### [facility] Laboratory [address] [place], [address] Monocytes/100 WBC (Bld) 4.6 % Normal 0-10 [facility] Comment on above: Performed By: #### L 100.0100, L500.4050 #### [facility] Laboratory [address] [place], [address] Neutrophils/100 WBC (Bld) 84.5 % High 47-70 [facility] Comment on above: Performed By: #### L 100.0100, L500.4050 #### [facility] Laboratory [address] [place], [address] Nucleated RBC (Bld) [#/Vol] 0 10*3/uL Normal 0-5 [facility] Comment on above: Performed By: #### L 100.0100, L500.4050 #### [facility] Laboratory [address] [place], [address] Platelet mean volume (Bld) [Entitic vol] 9.8 fL Normal 6.2-12.0 [facility] Comment on above: Performed By: #### L 100.0100, L500.4050 #### [facility] Laboratory [address] [place], [address] Platelets (Bld) [#/Vol] 456 10*3/uL High 150-450 [facility] Comment on above: Performed By: #### L 100.0100, L500.4050 #### [facility] Laboratory [address] [place], [address] RBC (Bld) [#/Vol] 4.47 10*6/uL Normal 4.2-5.4 [facility] Comment on above: Performed By: #### L 100.0100, L500.4050 #### [facility] Laboratory [address] [place], [address] RDW SD 48.9 fl High 35.1-43.9 [facility] Comment on above: Performed By: #### L 100.0100, L500.4050 #### [facility] Laboratory [address] [place], [address] WBC (Bld) [#/Vol] 11.4 10*3/uL High 4.4-11.0 [facility] Comment on above: Performed By: #### L 100.0100, L500.4050 #### [facility] Laboratory [address] [place], [address] Carbon dioxide, total [Moles /volume] in Central venous bloodOrdered By: Karl Wall on 09-08-2024 CO2 [Moles/Vol] 22.9 mmol/L 21.0-32.0 [facility] Chloride assayOrdered By: Thanh Wall on 09-08-2024 Chloride [Moles/Vol] 103 mmol/L 98-108 [facility] Comprehensive Metabolic Prof ilon 09-08-2024 Albumin [Mass/Vol] 4.2 g/dL Normal 3.4-4.8 [facility] Comment on above: Performed By: #### L 100.0100, L500.4050 #### [facility] Laboratory [address] [place], [address] Albumin/Globulin [Mass ratio] 1.4 {ratio} Normal 0.9-2.4 [facility] Comment on above: Performed By: #### L 100.0100, L500.4050 #### [facility] Laboratory [address] [place], [address] ALK PHOS 67 U/L Normal 35-104 [facility] Comment on above: Performed By: #### L 100.0100, L500.4050 #### [facility] Laboratory [address] [place], [address] ALT [Catalytic activity/Vol] 15 U/L Normal <=34 [facility] Comment on above: Performed By: #### L 100.0100, L500.4050 #### [facility] Laboratory [address] [place], [address] AST [Catalytic activity/Vol] 23 U/L Normal <=31 [facility] Comment on above: Result Comment: Hemo lysis present, Results??could be affected. ?? Performed By: #### L 100.0100, L500.4050 #### [facility] Laboratory [address] [place], [address] Bilirubin [Mass/Vol] 0.62 mg/dL Normal 0.00-1.30 [facility] Comment on above: Performed By: #### L 100.0100, L500.4050 #### [facility] Laboratory [address] [place], [address] BUN/CRE 20.2 RATIO High 10-20 [facility] Comment on above: Performed By: #### L 100.0100, L500.4050 #### [facility] Laboratory [address] [place], [address] Calcium [Mass/Vol] 9.9 mg/dL Normal 7.6-11.0 [facility] Comment on above: Performed By: #### L 100.0100, L500.4050 #### [facility] Laboratory [address] [place], [address] Chloride [Moles/Vol] 103 mmol/L Normal 98-108 [facility] Comment on above: Performed By: #### L 100.0100, L500.4050 #### [facility] Laboratory [address] [place], [address] CO2 [Moles/Vol] 22.9 mmol/L Normal 21.0-32.0 [facility] Comment on above: Performed By: #### L 100.0100, L500.4050 #### [facility] Laboratory [address] [place], [address] Creatinine [Mass/Vol] 0.74 mg/dL Normal 0.70-1.20 [facility] Comment on above: Performed By: #### L 100.0100, L500.4050 #### [facility] Laboratory [address] [place], [address] ECRCL 59.83 ml/min Normal 50-250 [facility] Comment on above: Performed By: #### L 100.0100, L500.4050 #### [facility] Laboratory [address] [place], [address] GAP 14 Normal 5-15 [facility] Comment on above: Performed By: #### L 100.0100, L500.4050 #### [facility] Laboratory [address] [place], [address] GFR/1.73 sq M.predicted among non-blacks MDRD (S/P/Bld) [Vol rate/Area] 84 mL/min/{1.73_m2} Normal >60 [facility] Comment on above: Result Comment: mL/m in/1.73m2 CKD-EPI Creatinine Equation (2020) Performed By: #### L 100.0100, L500.4050 #### [facility] Laboratory [address] [place], [address] Globulin (S) [Mass/Vol] 3.0 g/dL Normal 2.2-4.2 [facility] Comment on above: Performed By: #### L 100.0100, L500.4050 #### [facility] Laboratory [address] [place], [address] Glucose [Mass/Vol] 148 mg/dL High 70-99 [facility] Comment on above: Performed By: #### L 100.0100, L500.4050 #### [facility] Laboratory [address] [place], [address] Potassium [Moles/Vol] 4.7 mmol/L Normal 3.3-5.1 [facility] Comment on above: Result Comment: Hemo lysis present, Results??could be affected. ?? Performed By: #### L 100.0100, L500.4050 #### [facility] Laboratory [address] [place], [address] Sodium [Moles/Vol] 140 mmol/L Normal 133-145 [facility] Comment on above: Performed By: #### L 100.0100, L500.4050 #### [facility] Laboratory [address] [place], [address] T PROT 7.1 g/dL Normal 5.9-8.4 [facility] Comment on above: Performed By: #### L 100.0100, L500.4050 #### [facility] Laboratory [address] [place], [address] Urea nitrogen [Mass/Vol] 15 mg/dL Normal 4-19 [facility] Comment on above: Performed By: #### L 100.0100, L500.4050 #### [facility] Laboratory [address] 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 Karl Wall DO on 09/08/24 at 1427 I went back in and reevaluate the patient and she states that she has not had penicillin since a child therefore we will give her a dose of Rocephin here prior to discharge not the oral ci profloxacin with the oral ciprofloxacin will bili sent to the pharmacy still. 09/08/24 1427 Cosigner Signature (if applicable): cc: LAURA ASTRID MUSE * Signed HPI History of Present Illness Chief Complaint: Flank Pain Narrative Narrative: Patient is a 78-year-old female with past medical history of hypertension, diabetes, CVA, paroxysmal atrial flutter on Eliquis who presented to the emergency department the chief complaint of left flank pain. Patient states that this developed last night and persisted this morning therefore she came here for further evaluation management. Patient states that she did not know if she had a urinary tract infection therefore she came here for further evaluation management. Patient denies any recent sick contacts. Patient states that she does have nausea and dry heaves. Patient denies any history of smoking [facility] Medical History History of hypertension History of diabetes mellitus History of stroke Receptive aphasia Expressive aphasia Hypothyroidism Nonobstructive atherosclerosis of coronary artery Nonsustained paroxysmal ventricular tachycardia Paroxysmal atrial flutter Mitral valve annular calcification History of non-ST elevation myocardial infarction (NSTEMI) (02/06/20) Essential (primary) hypertension CVA (cerebral vascular accident) Visual changes Hyperlipidemia Type 2 diabetes mellitus Home Medications ???Medication ???Instructions ???Recorded ???Last Taken ???Type atorvastatin 80 mg tablet 80 mg PO QHS lower cholesterol Unknown History clopidogrel 75 mg tablet 75 mg PO DAILY 30 days #30 tabs Unknown Rx empagliflozin 25 mg tablet 25 mg PO DAILY 08/09/23 Unknown Hi story (Jardiance) apixaban 5 mg tablet (Eliquis) 5 mg PO BID #180 TABLETS 09/06/24 Unknown Rx levothyroxine 50 mcg tablet 50 mcg PO QDAY disorder of thyroid 09/06/24 Unknown History gland losartan 25 mg tablet 25 mg PO DAILY high bp #90 tabs Unknown Rx metformin 500 mg tablet,extended 1,000 mg PO BID dm 09/06/24 Unknow n History release 24 hr metoprolol tartrate 25 mg tablet 25 mg PO BID #180 tabs 09/06/24 Un known Rx ciprofloxacin HCl 500 mg tablet 500 mg PO BID 5 days #10 tabs 06/30 Unknown Rx ondansetron 4 mg disintegrating 4 mg PO Q6H PRN nausea and 5 Unknown Rx tablet vomiting #20 tabs oxycodone-acetaminoph en 5 mg-325 1 tab PO Q6H PRN pain 3 days #12 0 09/08/24 Unknown Rx mg tablet (Endocet) tabs tamsulosin 0.4 mg capsule 0.4 mg PO DAILY #14 caps 09/08/24 Unknown Rx Allergy/AdvReac Type Severity Reaction Status Date / Time Penicillins Allergy Rash Verified 09/08/24 10:05 propoxyphene (From Darvon) AdvReac Nausea/Vom/ Verified 09/08/24 10:05 Diarrhea Family History Father Myocardial infarction Brother Myocardial infarction Mother CVA (cerebral vascular accident) Heart disease Grandmother Myocardial infarction Uncle Myocardial infarction Surgical History History of cataract extraction History of left heart catheterization (04/01/20) History of cholecystectomy History of hernia repair Social History Smoking Status: Never smoker Electronic Cigarette Use: not used second hand exposure: Yes alcohol intake: current alcohol intake frequency: holidays/special occasions only Alcohol type: wine substance use type: does not use ROS ROS ED ROS Narrative Constitutional: Denies fever, chills, headaches Cardiovascular: Denies chest pain Respiratory: Shortness of breath Abdomen: Complains of dry heaves as noted above denies diarrhea denies abdominal pain : Denies painful urination, hematuria or polyuria Neurological: Denies numbness, wheeze, tingling Musculoskeletal: Complains of left back pain as noted above Skin: Denies any rashes or lesions EXAM Physical Exam Narrative Exam Narrative: General: Patient was lying in bed rest comfortably did not appear to be acute distress Head: Atraumatic, normocephalic Eyes: PERRL bilaterally, EOMI bilateral, no conjunctival injectio (more content not included)... Normal [facility] Eosinophil percentageOrdered By: Karl Wall on 09-08-2024 Eosinophils/100 WBC (Bld) 0.0 % 0-5 [facility] Erythrocyte distribution wid th ratioOrdered By: Karl Wall on 09-08-2024 Erythrocyte distribution width (RBC) [Ratio] 15.8 % High 11.6-14.6 [facility] Erythrocyte distribution wid th standard deviationOrdered By: Karl Wall on 09-08-2024 Erythrocyte distribution width (RBC) [Ratio] 48.9 fl High 35.1-43.9 [facility] Glomerular filtration rate ( GFR) estimation/1.73 sq m using serum, plasma, or whole bOrdered By: Karl Wall on 09-08-2024 GFR/1.73 sq M.predicted among non-blacks MDRD (S/P/Bld) [Vol rate/Area] 84 mL/min/{1.73_m2} >60 [facility] Comment on above: mL/min/1.73m2 CKD-EP I Creatinine Equation (2020) Hematocrit Auto (Bld) [Volum e fraction]Ordered By: Karl Wall on 09-08-2024 Hematocrit (Bld) [Volume fraction] 37.7 % 37-47 [facility] Hemoglobin measurementOrdere d By: Karl Wall on 09-08-2024 Hemoglobin (Bld) [Mass/Vol] 12.1 g/dL 12.0-15.0 [facility] Immature granulocytes/100 WB C Auto (Bld)Ordered By: Karl Wall on 09-08-2024 Immature granulocytes/100 WBC (Bld) 0.300 % 0.0-0.9 [facility] Comment on above: IG% - Immature Granu locytes (promyelocytes, myelocytes and metamyelocytes) > 1% indicates that a LEFT SHIFT is Present. Ketones Test strip Ql (U)Ord ered By: Karl Wall on 09-08-2024 Ketones Ql (U) Negative Negative [facility] Laboratory - Chemistry and C hemistry - challengeOrdered By: Karl Wall on 09-08-2024 AST [Catalytic activity/Vol] 23 U/L <32 [facility] Comment on above: Hemolysis present, R esults could be affected. MCV (mean corpuscular volume ) determinationOrdered By: Karl Wall on 09-08-2024 MCV (RBC) [Entitic vol] 84.3 fL 81-99 [facility] Mean corpuscular hemoglobin (MCH) determinationOrdered By: Karl Wall on 09-08-2024 MCH (RBC) [Entitic mass] 27.1 pg 27.0-32.0 [facility] Mean corpuscular hemoglobin concentration (MCHC) determinationOrdered By: Karl Wall on 09-08-2024 MCHC (RBC) [Mass/Vol] 32.1 g/dL 32-36 [facility] Mean platelet volume determi nationOrdered By: Karl Wall on 09-08-2024 Platelet mean volume (Bld) [Entitic vol] 9.8 fL 6.2-12.0 [facility] Microscopic analysis of urin e for red blood cells (RBC)Ordered By: Karl Wall on 09-08-2024 Microscopic analysis of urine for red blood cells (RBC) 0 SEEN /hpf 0-5 [facility] Monocyte percentageOrdered B y: Karl Wall on 09-08-2024 Monocytes/100 WBC (Bld) 4.6 % 0-10 [facility] Mucus LM Ql (Urine sed)Order ed By: Karl Wall on 09-08-2024 Mucus Ql (Urine sed) 0 SEEN /hpf [facility] Neutrophil percentageOrdered By: Karl Wall on 09-08-2024 Neutrophils/100 WBC (Bld) 84.5 % High 47-70 [facility] Nitrite Test strip Ql (U)Ord ered By: Karl Wall on 09-08-2024 Nitrite Ql (U) Positive High Negative [facility] Nucleated red blood cell per centageOrdered By: Karl Wall on 09-08-2024 Nucleated RBC/100 WBC (Bld) [Ratio] 0 % 0-5 [facility] Platelet countOrdered By: Thanh Wall on 09-08-2024 Platelets (Bld) [#/Vol] 456 10*3/uL High 150-450 [facility] Potassium measurement (mass/ volume)Ordered By: Karl Wall on 09-08-2024 Potassium (Unsp spec) [Mass/Vol] 4.7 mmol/L 3.3-5.1 [facility] Comment on above: Hemolysis present, R esults could be affected. Protein Test strip Ql (U)Ord ered By: Karl Wall on 09-08-2024 Protein Ql (U) 30 mg/dl High Negative [facility] RBC Auto (Bld) [#/Vol]Ordere d By: Karl Wall on 09-08-2024 RBC (Bld) [#/Vol] 4.47 10*6/uL 4.2-5.4 [facility] Serum creatinine measurement (mass/volume)Ordered By: Karl Wall on 09-08-2024 Creatinine [Mass/Vol] 0.74 mg/dL 0.70-1.20 [facility] Serum globulin measurementOr dered By: Karl Wall on 09-08-2024 Globulin (S) [Mass/Vol] 3.0 g/dL 2.2-4.2 [facility] Serum glucose measurement (m ass/volume)Ordered By: Karl Wall on 09-08-2024 Glucose [Mass/Vol] 148 mg/dL High 70-99 [facility] Serum or plasma alanine carroll otransferase (ALT) measurementOrdered By: Karl Wall on 09-08-2024 ALT [Catalytic activity/Vol] 15 U/L <35 [facility] Serum or plasma albumin ciera urement (mass/volume)Ordered By: Karl Wall on 09-08-2024 Albumin [Mass/Vol] 4.2 g/dL 3.4-4.8 [facility] Serum or plasma albumin/glob ulin mass ratioOrdered By: Karl Wall on 09-08-2024 Albumin/Globulin [Mass ratio] 1.4 {ratio} 0.9-2.4 [facility] Serum or plasma alkaline artur sphatase measurementOrdered By: Karl Wall on 09-08-2024 ALP [Catalytic activity/Vol] 67 U/L 35-104 [facility] Serum or plasma calcium ciera urement (mass/volume)Ordered By: Karl Wall on 09-08-2024 Calcium [Mass/Vol] 9.9 mg/dL 7.6-11.0 [facility] Serum or plasma urea nitroge n measurement (mass/volume)Ordered By: Karl Wall on 09-08-2024 Urea nitrogen [Mass/Vol] 15 mg/dL 4-19 [facility] Sodium levelOrdered By: Sana Wall on 09-08-2024 Sodium [Moles/Vol] 140 mmol/L 133-145 [facility] Squamous epithelial cells de tection in urine sediment by light microscopyOrdered By: Karl Wall on 09-08-2024 Epithelial cells.squamous LM Ql (Urine sed) 0 SEEN /hpf - [facility] Total proteinOrdered By: Columba Wall on 09-08-2024 Protein [Mass/Vol] 7.1 g/dL 5.9-8.4 [facility] Urinalysis, Completeon 09-08 BACTERIA RARE Normal None Seen [facility] Comment on above: Order Comment: CLEAN CATCH Performed By: #### L 400.0001 #### [facility] Laboratory [address] [place], [address] WBC >100 SEEN Normal [address] [place] [address] Comment on above: Order Comment: CLEAN CATCH Performed By: #### L 400.0001 #### [facility] Laboratory [address] [facility] [address] EPI,SQUAMOUS 0 SEEN Normal - [facility] Comment on above: Order Comment: CLEAN CATCH Performed By: #### L 400.0001 #### [facility] Laboratory [address] [place], [address] Mucus Ql (Urine sed) 0 SEEN Normal [facility] Comment on above: Order Comment: CLEAN CATCH Performed By: #### L 400.0001 #### [facility] Laboratory [address] [place], [address] RBC 0 SEEN Normal [address] [place] [address] Comment on above: Order Comment: CLEAN CATCH Performed By: #### L 400.0001 #### [facility] Laboratory [address] [place], [address] Urine clarityOrdered By: Columba Wall on 09-08-2024 Clarity (U) Cloudy Clear [facility] Urine color determinationOrd ered By: Karl Wall on 09-08-2024 Color (U) Yellow Yellow [facility] Urine glucose detectionOrder ed By: Karl Wall on 09-08-2024 Glucose Ql (U) 1000 mg/dl High Normal [facility] Urine leukocyte esterase det ection by dipstickOrdered By: Karl Wall on 09-08-2024 Leukocyte esterase Test strip Ql (U) 500 /ul High Negative [facility] Urine pHOrdered By: Karl baez on 09-08-2024 pH (U) 5.0 [pH] 5.0 - 8.0 [facility] Urine sediment bacteria coun t by microscopy (number/high power field)Ordered By: Karl Wall on 09-08-2024 Bacteria LM.HPF (Urine sed) [#/Area] RARE /hpf None Seen [facility] Urine specific gravity measu rementOrdered By: Karl Wall on 09-08-2024 Specific gravity (U) [Rel density] 1.010 1.002-1.030 [facility] Urine urobilinogen measureme ntOrdered By: Karl Wall on 09-08-2024 Urobilinogen Ql (U) Normal mg/dl Normal [facility] White blood cell (WBC) count Ordered By: Karl Wall on 09-08-2024 WBC (Bld) [#/Vol] 11.4 10*3/uL High 4.4-11.0 [facility] White blood cell countOrdere d By: Karl Wall on 09-08-2024 White blood cell count >100 SEEN /hpf 0-5 [facility] Basic metabolic 2000 panelon 09-06-2024 Anion gap [Moles/Vol] 18 mmol/L High 8-15 [facility] Comment on above: Order Comment: Speci men Type: BLOOD SPECIMENOrdering Facility: [facility] Address: [address] [place] [address] Performed By: #### 2 4321-2 ####[facility] [id number] [place] [id number] [place] Calcium [Mass/Vol] 9.6 mg/dL Normal 8.5-10.2 [facility] Comment on above: Order Comment: Speci men Type: BLOOD SPECIMENOrdering Facility: [facility] Address: [address] [place] [address] Performed By: #### 2 4321-2 ####[facility] [id number] [place] [address] [place] Chloride [Moles/Vol] 103 mmol/L Normal 98-107 [facility] Comment on above: Order Comment: Speci men Type: BLOOD SPECIMENOrdering Facility: [facility] Address: [address] [place] [address] Performed By: #### 2 4321-2 ####[facility] [id number] [place] [address] [place] CO2 [Moles/Vol] 20 mmol/L Low 22-30 [facility] Comment on above: Order Comment: Speci men Type: BLOOD SPECIMENOrdering Facility: [facility] Address: [address] [place] [address] Performed By: #### 2 4321-2 ####[facility] [id number] [place] [address] [place] Creatinine [Mass/Vol] 0.60 mg/dL Normal 0.58-0.96 [facility] Comment on above: Order Comment: Speci men Type: BLOOD SPECIMENOrdering Facility: [facility] Address: [address] [place] [address] Performed By: #### 2 4321-2 ####[facility] [id number] [address] Creatinine and Glomerular filtration rate.predicted panel (S/P/Bld) 93 mL/min/1.73m??? Normal >=60 [facility] Comment on above: Order Comment: Speci men Type: BLOOD SPECIMENOrdering Facility: [facility] Address: [address] [place] [address] Result Comment: Shakira mated Glomerular Filtration Rate [...] Performed By: #### 2 4321-2 ####[facility] [id number] [place] [address] [place] Glucose [Mass/Vol] 147 mg/dL High 74-99 [facility] Comment on above: Order Comment: Kamla clark Type: BLOOD SPECIMENOrdering Facility: [facility] Address: [address] [place] [address] Result Comment: The [place] Diabetes Association (ADA) provides guidance for cutoff [...] Standards of Medical Care in Diabetes 2016, [place] Diabetes Association. Diabetes Care. 2016.39(Suppl 1). Performed By: #### 2 4321-2 ####[facility] [id number] [place] [address] [place] Potassium [Moles/Vol] 4.1 mmol/L Normal 3.7-5.1 [facility] Comment on above: Order Comment: Kamla clark Type: BLOOD SPECIMENOrdering Facility: [facility] Address: [address] [id number] Performed By: #### 2 4321-2 ####[facility] [id number] [place] [address] [place] Sodium [Moles/Vol] 141 mmol/L Normal 136-144 [facility] Comment on above: Order Comment: Speci men Type: BLOOD SPECIMENOrdering Facility: [facility] Address: [address] [place] [address] Performed By: #### 2 4321-2 ####[facility] [id number] [place] [address] [place] Urea nitrogen [Mass/Vol] 13 mg/dL Normal 7-21 [facility] Comment on above: Order Comment: Speci men Type: BLOOD SPECIMENOrdering Facility: [facility] Address: [address] [place] [address] Performed By: #### 2 4321-2 ####[facility] [id number] [place] [address] [place] CBC W Auto Differential pane l (Bld)on 09-06-2024 Basophils (Bld) [#/Vol] 0.07 10*3/uL Normal <0.11 [facility] Comment on above: Order Comment: Speci men Type: BLOOD SPECIMENOrdering Facility: [facility] Address: [address] [place] [address] Performed By: #### 5 7021-8 ####[facility] [id number] [place] [address] [place] Basophils/100 WBC (Bld) 0.7 % Normal [facility] Comment on above: Order Comment: Speci men Type: BLOOD SPECIMENOrdering Facility: [facility] Address: [address] [place] [address] Performed By: #### 5 7021-8 ####[facility] [id number] [place] [address] [place] Differential cell count method Nom (Bld) Auto Normal [facility] Comment on above: Order Comment: Speci men Type: BLOOD SPECIMENOrdering Facility: [facility] Address: [address] [place] [address] Performed By: #### 5 7021-8 ####[facility] MILLCHRISTENWNCLIA [id number] [place] [address] [place] Eosinophils (Bld) [#/Vol] 0.09 10*3/uL Normal <0.46 [facility] Comment on above: Order Comment: Speci men Type: BLOOD SPECIMENOrdering Facility: [facility] Address: [address] [place] [address] Performed By: #### 5 7021-8 ####[facility]ITALWYOHANNESLIA [id number] [place] [address] [place] Eosinophils/100 WBC (Bld) 0.9 % Normal [facility] Comment on above: Order Comment: Speci men Type: BLOOD SPECIMENOrdering Facility: [facility] Address: [address] [place] [address] Performed By: #### 5 7021-8 ####[facility]ANNESL[facility] [id number] [place] [address] [place] Erythrocyte distribution width (RBC) [Ratio] 15.8 % High 11.5-15.0 [facility] Comment on above: Order Comment: Speci men Type: BLOOD SPECIMENOrdering Facility: [facility] Address: [address] [place] [address] Performed By: #### 5 7021-8 ####[facility] MILLWNCLIA [id number] [place] [address] [place] Hematocrit (Bld) [Volume fraction] 39.0 % Normal 36.0-46.0 [facility] Comment on above: Order Comment: Speci men Type: BLOOD SPECIMENOrdering Facility: [facility] Address: [address] [place] [address] Performed By: #### 5 7021-8 ####[facility] MILLMODESTOALFRED [id number] [place] [address] [place] Hemoglobin (Bld) [Mass/Vol] 12.2 g/dL Normal 11.5-15.5 [facility] Comment on above: Order Comment: Speci men Type: BLOOD SPECIMENOrdering Facility: [facility] Address: [address] [place] [address] Performed By: #### 5 7021-8 ####[facility] [id number] [place] [address] [place] Immature granulocytes (Bld) [#/Vol] 0.03 10*3/uL Normal <0.10 [facility] Comment on above: Order Comment: Speci men Type: BLOOD SPECIMENOrdering Facility: [facility] Address: [address] [place] [address] Performed By: #### 5 7021-8 ####[facility] [id number] [place] [address] [place] Immature granulocytes/100 WBC (Bld) 0.3 % Normal [facility] Comment on above: Order Comment: Speci men Type: BLOOD SPECIMENOrdering Facility: [facility] Address: [address] [place] [address] Performed By: #### 5 7021-8 ####[facility] [id number] [place] [address] [place] Lymphocytes (Bld) [#/Vol] 1.86 10*3/uL Normal 1.00-4.00 [facility] Comment on above: Order Comment: Speci men Type: BLOOD SPECIMENOrdering Facility: [facility] Address: [address] [place] [address] Performed By: #### 5 7021-8 ####[facility] [id number] [place] [address] [place] Lymphocytes/100 WBC (Bld) 19.5 % Normal [facility] Comment on above: Order Comment: Speci men Type: BLOOD SPECIMENOrdering Facility: [facility] Address: [address] [place] [address] Performed By: #### 5 7021-8 ####[facility] [id number] [place] [address] [place] MCH (RBC) [Entitic mass] 26.6 pg Normal 26.0-34.0 [facility] Comment on above: Order Comment: Speci men Type: BLOOD SPECIMENOrdering Facility: [facility] Address: [address] [place] [address] Performed By: #### 5 7021-8 ####[facility] [id number] [place] [address] [place] MCHC (RBC) [Mass/Vol] 31.3 g/dL Normal 30.5-36.0 [facility] Comment on above: Order Comment: Speci men Type: BLOOD SPECIMENOrdering Facility: [facility] Address: [address] [place] [address] Performed By: #### 5 7021-8 ####[facility] [id number] [place] [address] [place] MCV (RBC) [Entitic vol] 85.2 fL Normal 80.0-100.0 C [facility] Comment on above: Order Comment: Speci men Type: BLOOD SPECIMENOrdering Facility: [facility] Address: [address] [place] [address] Performed By: #### 5 7021-8 ####[facility] [id number] [place] [address] [place] Monocytes (Bld) [#/Vol] 0.66 10*3/uL Normal <0.87 [facility] Comment on above: Order Comment: Speci men Type: BLOOD SPECIMENOrdering Facility: [facility] Address: [address] [place] [address] Performed By: #### 5 7021-8 ####[facility] MILLTOWNCLIA [id number] [place] [address] [place] Monocytes/100 WBC (Bld) 6.9 % Normal [facility] Comment on above: Order Comment: Speci men Type: BLOOD SPECIMENOrdering Facility: [facility] Address: [address] [place] [address] Performed By: #### 5 7021-8 ####[facility]ITALWNCLIA [id number] [place] [address] [place] Neutrophils (Bld) [#/Vol] 6.81 10*3/uL Normal 1.45-7.50 [facility] Comment on above: Order Comment: Speci men Type: BLOOD SPECIMENOrdering Facility: [facility] Address: [address] [place] [address] Performed By: #### 5 7021-8 ####[facility] [id number] [place] [address] [place] Neutrophils/100 WBC (Bld) 71.7 % Normal [facility] Comment on above: Order Comment: Speci men Type: BLOOD SPECIMENOrdering Facility: [facility] Address: [address] [place] [address] Performed By: #### 5 7021-8 ####[facility]ITALTOWNCLIA [id number] [place] [address] [place] Nucleated RBC (Bld) [#/Vol] 10*3/uL Normal <0.01 [facility] Comment on above: Order Comment: Speci men Type: BLOOD SPECIMENOrdering Facility: [facility] Address: [address] [place] [address] Performed By: #### 5 7021-8 ####[facility] [id number] [place] [address] [place] Nucleated RBC/100 WBC (Bld) [Ratio] 0.0 /100 WBC Normal [facility] Comment on above: Order Comment: Speci men Type: BLOOD SPECIMENOrdering Facility: [facility] Address: [address] [place] [address] Performed By: #### 5 7021-8 ####[facility] [id number] [place] [address] [place] Platelet mean volume (Bld) [Entitic vol] 9.4 fL Normal 9.0-12.7 [facility] Comment on above: Order Comment: Speci men Type: BLOOD SPECIMENOrdering Facility: [facility] Address: [address] [place] [address] Performed By: #### 5 7021-8 ####[facility] [id number] [place] [address] [place] Platelets (Bld) [#/Vol] 460 10*3/uL High 150-400 [facility] Comment on above: Order Comment: Speci men Type: BLOOD SPECIMENOrdering Facility: [facility] Address: [address] [place] [address] Performed By: #### 5 7021-8 ####[facility] [id number] [place] [address] [place] RBC (Bld) [#/Vol] 4.58 10*6/uL Normal 3.90-5.20 [facility] Comment on above: Order Comment: Speci men Type: BLOOD SPECIMENOrdering Facility: [facility] Address: [address] [place] [address] Performed By: #### 5 7021-8 ####[facility] [id number] [place] [address] [place] WBC (Bld) [#/Vol] 9.52 10*3/uL Normal 3.70-11.00 [facility] Comment on above: Order Comment: Speci men Type: BLOOD SPECIMENOrdering Facility: [facility] Address: [address] [place] [address] Performed By: #### 5 7021-8 ####[facility] [id number] [place] [address] [place] Cardiology Visit Reporton Cardiology Visit Report [facility] [address] [place] [id number] OFFICE VISIT Date of Service: 09/06/24 MR#: [id number] Acct: [id number] Name: BRITNEY CANADA Rep #: [id number] : 1945 Provider: IVET Quezada Age/Sex: 78/F Location: [facility] Status: Signed HPI HPI History of Present Illness Details: Britney Canada is a 78-year-old female that presents here today for a cardiovascular follow up. She does have a history of paroxysmal atrial flutter, ventricular tachycardia, history of right occipital lobe infarct. Patient was admitted on February 06, 2020 to [facility] for an acute right occipital lobe infarct. [...] air Intake Visit Reasons: 1 Y [employer] Employee Required: No Is patient in pain?: No [...] you fallen in the past year?: No [facility] Medical History History of hypertension History of [...] balance prob (more content not included)... Normal [facility] HbA1c (Bld)on 09-06-2024 Average glucose Estimated from glycated hemoglobin (Bld) [Mass/Vol] 154 mg/dL Normal [facility] Comment on above: Order Comment: Kamla clark Type: BLOOD SPECIMENOrdering Facility: [facility] Address: [address] [place] [address] Result Comment: eAG: (Estimated average glucose) is a calculated value from HgbA1c and is dermatology sales representative of the average blood glucose level in the last 2-3 month period. Performed By: #### 5 5454-3 ####[facility] LABCLIA [id number] [place] [address] [place] HbA1c (Bld) [Mass fraction] 7.0 % High 4.3-5.6 [facility] Comment on above: Order Comment: Kamla clark Type: BLOOD SPECIMENOrdering Facility: [facility] Address: [address] [place] [address] Result Comment: Amer [place] Diabetes Association guidelines indicate that patients with HgbA1c in the range 5.7-6.4% are at increased risk for development of diabetes, and intervention by lifestyle modification may be beneficial. HgbA1c greater or equal to 6.5% is considered diagnostic of diabetes. Performed By: #### 5 5454-3 ####[facility] LABCLIA [id number] [facility] CENTERK [address] [place] [address] [facility] Lipid 1996 panelon 5 Cholesterol [Mass/Vol] 123 mg/dL Normal <200 [facility] Comment on above: Order Comment: Speci men Type: BLOOD SPECIMENOrdering Facility: [facility] Address: [address] [place] [place] [address] Result Comment: <200 mg/dL, Desirable 200-239 mg/dL, Borderline high >239 mg/dL, High Performed By: #### 3 016-3 ####[facility] LABCLIA [id number] [facility] [address], [address] OF [facility]#### [address]-5 ####[facility] LABCLIA [id number] [facility] [address] [place] [address] [facility] [id number] [address] Cholesterol in HDL [Mass/Vol] 33 mg/dL Low >39 [facility] Comment on above: Order Comment: Speci men Type: BLOOD SPECIMENOrdering Facility: [facility] Address: [address] [place] [address] Result Comment: 40-5 9 mg/dL, Acceptable >59 mg/dL, High: Negative risk factor for coronary heart disease <40 mg/dL, Low: Positive risk factor for coronary heart disease Performed By: #### 3 016-3 ####[facility] LABCLIA [id number] [facility] [address] [place] [address] [place]#### [address]-6 ####[facility] LABCLIA [id number] [facility] [address], [facility] [id number] [address] Cholesterol in LDL [Mass/Vol] 65 mg/dL Normal <100 [facility] Comment on above: Order Comment: Speci men Type: BLOOD SPECIMENOrdering Facility: [facility] Address: [address], [place] [address] Result Comment: <100 mg/dL, Optimal 100-129 mg/dL, Near optimal/above optimal 130-159 mg/dL, Borderline high 160-189 mg/dL, High >189 mg/dL, Very high Secondary prevention optimal LDL Cholesterol levels are recommended to be <70 mg/dL LDL cholesterol is calculated using the Anna-NIH equation. Performed By: #### 3 016-3 ####[facility] LABCLIA [id number] [address]#### [address]-6 ####[facility] LABCLIA [id number] [address] [id number] [address] Cholesterol in LDL/Cholesterol in HDL [Mass ratio] 1.97 {ratio} Normal <2.54 [facility] Comment on above: Order Comment: Speci men Type: BLOOD SPECIMENOrdering Facility: [facility] Address: [address] [place] [address] Result Comment: Refsophy rg: 1. National Cholesterol Education Program ATP III Guideline At-A-Glance Quick Desk Reference: National Heart, Lung, and Blood [place]. National Institutes of Health. 2001: NIH Publication No. 01-3305. 2. An International Atherosclerosis Society position paper: global recommendations for the management of dyslipidemia: executive summary, Atherosclerosis. 2014: 232(2):410-413. Performed By: #### 3 016-3 ####[facility] LABCLIA [id number] [address] [place]#### [address]-3 ####[facility] LABCLIA [id number] [facility] [address], [address] [id number] [address] Cholesterol in VLDL [Mass/Vol] 21 mg/dL Normal <30 [facility] Comment on above: Order Comment: Speci men Type: BLOOD SPECIMENOrdering Facility: [facility] Address: [address] [place] [address] Performed By: #### 3 016-3 ####[facility] LABCLIA [id number] [address]#### [address]-6 ####[facility] LABCLIA [id number] [address] [id number] [address] [place] Cholesterol non HDL [Mass/Vol] 90 mg/dL Normal <130 [facility] Comment on above: Order Comment: Speci men Type: BLOOD SPECIMENOrdering Facility: [facility] Address: [address] [place] [address] [address] Result Comment: <130 mg/dL, Optimal 130-159 mg/dL, Near optimal/above optimal 160-189 mg/dL, Borderline high 190-219 mg/dL, High >219 mg/dL, Very high Secondary prevention optimal non HDL Cholesterol levels are recommended to be <100 mg/dL Performed By: #### 3 016-3 ####[facility] LABCLIA [id number] [facility] [place] [address] [place]#### 567[address]-4 ####[facility] LABCLIA [id number] [facility] [address], [address] STATES OF [facility] [id number] [address] OF [place] Cholesterol.total/Leticia sterol in HDL [Mass ratio] 3.73 {ratio} Normal <5.10 [facility] Comment on above: Order Comment: Speci men Type: BLOOD SPECIMENOrdering Facility: [facility] Address: [address] [place], [place] [address] [address] Performed By: #### 3 016-3 ####[facility] LABCLIA [id number] [address] [place]#### [address]-1 ####[facility] LABCLIA [id number] [address] OF [facility] [id number] [address] OF [place] FASTING TIME 12 hrs Normal [facility] Comment on above: Order Comment: Speci men Type: BLOOD SPECIMENOrdering Facility: [facility] Address: [address] [place], [place] [address] [address] Performed By: #### 3 016-3 ####[facility] LABCLIA [id number] [address] [place]#### 23186-1 ####[facility] LABCLIA [id number] [address] OF [facility] [id number] [address] [place] Triglyceride [Mass/Vol] 139 mg/dL Normal <150 [facility] Comment on above: Order Comment: Speci men Type: BLOOD SPECIMENOrdering Facility: [facility] Address: [address] [place], [place] [address] [address] Result Comment: <150 mg/dL, Normal 150-199 mg/dL, Borderline high 200-499 mg/dL, High >499 mg/dL, Very high Performed By: #### 3 016-3 ####[facility] LABCLIA [id number] [address] OF [place]#### [address]-1 ####[facility] LABIA [id number] [address] [id number] [place] [address] [place] TSH SerPl-aCncon 09-06-2024 TSH Qn 1.720 m[IU]/L Normal 0.270-4.200 [facility] Comment on above: Order Comment: Speci men Type: BLOOD SPECIMENOrdering Facility: [facility] Address: [address] [place] [address] Performed By: #### 3 016-3 ####[facility] [id number] [address] [place]#### 25797-5 ####[facility] [id number] [address] [id number] [address] [place] CNNURSEon 08-14-2024 [facility] Nurse Visit (FAMPWS) BRITNEY CANADA ([id number]) 1945 F Date Time Provider Department 08/14/24 11:45 AM [place] NURSE FAMPWS During your visit today, we [...] Encounter Status:Closed by AGUEDA SABILLON on 08/14/24 [facility] Bacteria Ur Culton 5 Bacteria identified [...] , Intermediate >32 , Resistant >64 Abnormal [facility] Comment on above: Performed By: #### 6 30-4 ####[facility] [id number] [address] [place] CNOVon 07-25-2024 CNOV Office Visit (INTMWS ) BRITNEY CANADA ([id number]) 1945 F Date Time Provider Department 07/25/24 8:00 AM JONES VELASQUEZ INTMWS During your visit today, [...] with a UTI after a flight to [place] during which she did not drink enough [...] rash o (more content not included)... Normal [facility] UA DIP, URINE (POC)on 2024 BILIRUBIN UA (POCT) Negative Negative [facility] CLARITY UA (POCT) Cloudy [facility] COLOR UA (POCT) Other [facility] GLUCOSE UA (POCT) 100 mg/dL Abnormal Negative [facility] Hemoglobin Ql (U) Small Abnormal Negative [facility] Interpretation and review of laboratory results Abnormal [facility] KETONE UA (POCT) Negative Negative mg/dL [facility] LEUKOCYTES UA (POCT) Large Abnormal Negative [facility] NITRITE UA (POCT) Positive Abnormal Negative [facility] PH UA (POCT) 5.5 4.5 - 8.0 [facility] Protein Ql (U) 30 mg/dL Abnormal Negative [facility] SPECIFIC GRAVITY UA (POCT) 1.015 1.005 - 1.030 [facility] UROBILINOGEN UA (POCT) 0.2 Niecy l E.U./dL [facility] Location:[address], [place], [place], [id number] [place] [address] [facility] CNNURSEon 07-17-2024 [facility] Nurse Visit (FAMPWS) BRITNEY CANADA ([id number]) 1945 F Date Time Provider Department 07/17/24 11:45 AM [place] NURSE FAMPWS During your visit today, we recorded the following information about you: AUGEDA SABILLON 07/17/2024 11:42 AM Signed Patient presents [...] Encounter Status:Closed by AGUEDA SABILLON on 07/17/24 [facility] 06-19-2024 [facility] Nurse Visit (FAMPWS) BRITNEY CANADA ([id number]) 1945 F Date Time Provider Department 06/19/24 11:45 AM [place] NURSE FAMPWS During your visit today, we [...] Encounter Status:Closed by AGUEDA SABILLON on 06/19/24 [facility] CNOVon 06-09-2024 CNOV Office Visit (INTMWS ) BRITNEY CANADA ([id number]) 1945 F Date Time Provider Department 06/09/24 10:00 AM ASTRID MUSE During your visit today, we recorded the following information about you: Pulse Respiration Blood pressure Weight 64/minute 16/minute 112/68 81.2 kg Astrid Muse APRN.ADAPTIVE PHYSICAL EDUCATION TEACHER 06/09/2024 12:19 PM Signed CC: Patient presents [...] Diabetic Foot Exam due on 11/21/2022 Covid-19 Vaccine() due on (more content not included)... Normal [facility] CNNURSEon 05-22-2024 [facility] Nurse Visit (FAMPWS) BRITNEY CANADA ([id number]) 1945 F Date Time Provider Department 05/22/24 11:45 AM [facility] visit today, we recorded the [...] Encounter Status:Closed by AGUEDA SABILLON on 05/22/24 [facility] CNOVon 04-28-2024 CNOV Office Visit (INTMWS ) PATRICIABRITNEY FLORES ([id number]) 1945 F Date Time Provider Department 04/28/24 10:20 AM ASTRID MUSE During your visit today, we recorded the following information about you: Pulse Respiration Blood pressure Weight 64/minute 16/minute 122/68 80.3 kg Astrid Muse APRN.ADAPTIVE PHYSICAL EDUCATION TEACHER 04/28/2024 2:19 PM Signed CC: Patient presents [...] Urine Album (more content not included)... Normal [facility] ALBUMIN/CREATININE RATIO, UR INEon 04-26-2024 Albumin DL <= 20 mg/L (U) [Mass/Vol] 23.4 mg/L Normal [facility] Comment on above: Order Comment: Speci men Type: URINE SPECIMENOrdering Facility: [facility] Address: [address] [place] [address] Performed By: #### U ACR ####[facility] LABCLIA [id number] [id number], [place] [address] [place] Albumin/Creatinine (U) [Mass ratio] 36 mg/g High <30 [facility] Comment on above: Order Comment: Speci men Type: URINE SPECIMENOrdering Facility: [facility] Address: [address] [place] [address] Result Comment: Adul t Male and Female Nephrotic Criteria: <30 mg/g is considered normal to mildly increased 30-300 mg/g is considered moderately increased >300 mg/g is considered severely increased KDIGO. (2013). KDIGO 2012 Clinical Practice Guideline for the Evaluation and Management of Chronic Kidney Disease. Official Journal of the International Society of Nephrology, 3(1), 1-150. Performed By: #### U ACR ####[facility] LABCLIA [id number] [place] [address] [place] Creatinine (U) [Mass/Vol] 65.6 mg/dL Normal 20.0-300.0 [facility] Comment on above: Order Comment: Speci men Type: URINE SPECIMENOrdering Facility: [facility] Address: [address] [place] [address] Performed By: #### U ACR ####[facility] LABCLIA [id number] [place] [address] [place] Bacteria Ur Culton Bacteria identified Cx Nom (U) ORGANISM ID: 1 50,000-<100,000 CFU/ml Normal urogenital kevin Normal [facility] Comment on above: Performed By: #### 2 4356-8, 630-4 ####[facility] LABCLIA [id number] [place] [address] [place] CBC panel Auto (Bld)on 04-26 Erythrocyte distribution width (RBC) [Ratio] 16.3 % High 11.5-15.0 [facility] Comment on above: Order Comment: Speci men Type: BLOOD SPECIMENOrdering Facility: [facility] Address: [address] [place] [address] Performed By: #### 5 8410-2 ####[facility] DIONEWYOHANNESLIA [id number] [place] [address] [place] Hematocrit (Bld) [Volume fraction] 38.6 % Normal 36.0-46.0 [facility] Comment on above: Order Comment: Speci men Type: BLOOD SPECIMENOrdering Facility: [facility] Address: [address] [place] [address] Performed By: #### 5 8410-2 ####[facility] FLORIDAYOHANNESLIA [id number] [place] [address] [place] Hemoglobin (Bld) [Mass/Vol] 11.7 g/dL Normal 11.5-15.5 [facility] Comment on above: Order Comment: Speci men Type: BLOOD SPECIMENOrdering Facility: [facility] Address: [address] [place] [address] Performed By: #### 5 8410-2 ####[facility] [id number] [place] [address] [place] MCH (RBC) [Entitic mass] 25.7 pg Low 26.0-34.0 [facility] Comment on above: Order Comment: Speci men Type: BLOOD SPECIMENOrdering Facility: [facility] Address: [address] [place] [address] Performed By: #### 5 8410-2 ####[facility]ALSALTYA [id number] [place] [address] [place] MCHC (RBC) [Mass/Vol] 30.3 g/dL Low 30.5-36.0 [facility] Comment on above: Order Comment: Speci men Type: BLOOD SPECIMENOrdering Facility: [facility] Address: [address] [place] [address] Performed By: #### 5 8410-2 ####[facility]CL[facility] [id number] [place] [address] [place] MCV (RBC) [Entitic vol] 84.6 fL Normal 80.0-100.0 [facility] Comment on above: Order Comment: Speci men Type: BLOOD SPECIMENOrdering Facility: [facility] Address: [address] [place] [address] Performed By: #### 5 8410-2 ####[facility] [id number] [place] [address] [place] Nucleated RBC (Bld) [#/Vol] 10*3/uL Normal <0.01 [facility] Comment on above: Order Comment: Speci men Type: BLOOD SPECIMENOrdering Facility: [facility] Address: [address] [place] [address] Performed By: #### 5 8410-2 ####[facility] [id number] [place] [address] [place] Platelet mean volume (Bld) [Entitic vol] 9.5 fL Normal 9.0-12.7 [facility] Comment on above: Order Comment: Speci men Type: BLOOD SPECIMENOrdering Facility: [facility] Address: [address] [place] [address] Performed By: #### 5 8410-2 ####[facility] [id number] [place] [address] [place] Platelets (Bld) [#/Vol] 442 10*3/uL High 150-400 [facility] Comment on above: Order Comment: Speci men Type: BLOOD SPECIMENOrdering Facility: [facility] Address: [address] [place] [address] Performed By: #### 5 8410-2 ####[facility] [id number] [place] [address] [place] RBC (Bld) [#/Vol] 4.56 10*6/uL Normal 3.90-5.20 [facility] Comment on above: Order Comment: Speci men Type: BLOOD SPECIMENOrdering Facility: [facility] Address: [address] [place] [address] Performed By: #### 5 8410-2 ####[facility] HOSPITALWNCLIA [id number] [place] [address] [place] WBC (Bld) [#/Vol] 7.66 10*3/uL Normal 3.70-11.00 [facility] Comment on above: Order Comment: Speci men Type: BLOOD SPECIMENOrdering Facility: [facility] Address: [address] [place] [address] Performed By: #### 5 8410-2 ####[facility] [id number] [place] [address] [place] Comprehensive metabolic 2000 panelon 04-26-2024 Albumin [Mass/Vol] 4.2 g/dL Normal 3.9-4.9 [facility] Comment on above: Order Comment: Speci men Type: BLOOD SPECIMENOrdering Facility: [facility] Address: [address] [place] [address] Performed By: #### 2 4323-8 ####[facility]CL[facility] [id number] [place] [address] [place] ALP [Catalytic activity/Vol] 72 U/L Normal 34-123 [facility] Comment on above: Order Comment: Speci men Type: BLOOD SPECIMENOrdering Facility: [facility] Address: [address] [place], [place] [address] Performed By: #### 2 4323-8 ####[facility] [id number] [place] [address] [place] ALT [Catalytic activity/Vol] 11 U/L Normal 7-38 [facility] Comment on above: Order Comment: Speci men Type: BLOOD SPECIMENOrdering Facility: [facility] Address: [address] [place] [address] Performed By: #### 2 4323-8 ####[facility] SUKHJINDER MILLTOWNCLIA [id number] [place] [address] [place] Anion gap [Moles/Vol] 14 mmol/L Normal 8-15 [facility] Comment on above: Order Comment: Speci men Type: BLOOD SPECIMENOrdering Facility: [facility] Address: [address] [place] [address] Performed By: #### 2 4323-8 ####[facility] MILLWNCLIA [id number] [place] [address] [place] AST [Catalytic activity/Vol] 12 U/L Low 13-35 [facility] Comment on above: Order Comment: Speci men Type: BLOOD SPECIMENOrdering Facility: [facility] Address: [address] [place] [address] Performed By: #### 2 4323-8 ####[facility] HOSPITALWNCLIA [id number] [place] [address] [place] Bilirubin [Mass/Vol] 0.7 mg/dL Normal 0.2-1.3 [facility] Comment on above: Order Comment: Speci men Type: BLOOD SPECIMENOrdering Facility: [facility] Address: [address] [place] [address] Performed By: #### 2 4323-8 ####[facility] MILLTOWNCLIA [id number] [place] [address] [place] Calcium [Mass/Vol] 9.8 mg/dL Normal 8.5-10.2 [facility] Comment on above: Order Comment: Speci men Type: BLOOD SPECIMENOrdering Facility: [facility] Address: [address] [place] [address] Performed By: #### 2 4323-8 ####[facility] MILLTOWNCLIA [id number] [place] [address] [place] Chloride [Moles/Vol] 102 mmol/L Normal 98-107 [facility] Comment on above: Order Comment: Speci men Type: BLOOD SPECIMENOrdering Facility: [facility] Address: [address] [place] [address] Performed By: #### 2 4323-8 ####[facility] HOSPITALLIA [id number] [place] [address] [place] CO2 [Moles/Vol] 24 mmol/L Normal 22-30 [facility] Comment on above: Order Comment: Speci men Type: BLOOD SPECIMENOrdering Facility: [facility] Address: [address] [place] [address] Performed By: #### 2 4323-8 ####[facility] [id number] [place] [address] [place] Creatinine [Mass/Vol] 0.59 mg/dL Normal 0.58-0.96 [facility] Comment on above: Order Comment: Speci men Type: BLOOD SPECIMENOrdering Facility: [facility] Address: [address] [place] [address] Performed By: #### 2 4323-8 ####[facility] FL[facility]IDANCLI [id number] [place] [address] [place] [facility] Creatinine and Glomerular filtration rate.predicted panel (S/P/Bld) 93 mL/min/1.73m??? Normal >=60 [facility] Comment on above: Order Comment: Speci men Type: BLOOD SPECIMENOrdering Facility: [facility] Address: [address] [place] [address] Result Comment: Shakira mated Glomerular Filtration Rate [...] actual GFR. Performed By: #### 2 4323-8 ####[facility] DIONEWNCLIA [id number] [place] [address] [place] Glucose [Mass/Vol] 129 mg/dL High 74-99 [facility] Comment on above: Order Comment: Kamla clark Type: BLOOD SPECIMENOrdering Facility: [facility] Address: [address] [id number] Result Comment: The [place] Diabetes Association (ADA) provides guidance for cutoff [...] Standards of Medical Care in Diabetes 2016, [place] Diabetes Association. Diabetes Care. 2016.39(Suppl 1). Performed By: #### 2 4323-8 ####[facility]CL[facility] [id number] [place] [address] [place] Potassium [Moles/Vol] 3.8 mmol/L Normal 3.7-5.1 [facility] Comment on above: Order Comment: Kamla clark Type: BLOOD SPECIMENOrdering Facility: [facility] Address: [address] [place] [address] Performed By: #### 2 4323-8 ####[facility] [id number] [place] [address] [place] Protein [Mass/Vol] 6.8 g/dL Normal 6.3-8.0 [facility] Comment on above: Order Comment: Kamla clark Type: BLOOD SPECIMENOrdering Facility: [facility] Address: [address] [place] [address] Performed By: #### 2 4323-8 ####[facility] [id number] [place] [address] [place] Sodium [Moles/Vol] 140 mmol/L Normal 136-144 [facility] Comment on above: Order Comment: Speci men Type: BLOOD SPECIMENOrdering Facility: [facility] Address: [address] [place] [address] Performed By: #### 2 4323-8 ####[facility] [id number] [place] [address] [place] Urea nitrogen [Mass/Vol] 15 mg/dL Normal 7-21 [facility] Comment on above: Order Comment: Speci men Type: BLOOD SPECIMENOrdering Facility: [facility] Address: [address] [place] [address] Performed By: #### 2 4323-8 ####[facility] [id number] [place] [address] [place] HbA1c (Bld)on 04-26-2024 Average glucose Estimated from glycated hemoglobin (Bld) [Mass/Vol] 160 mg/dL Normal [facility] Comment on above: Order Comment: Speci men Type: BLOOD SPECIMENOrdering Facility: [facility] Address: [address] [place] [address] Result Comment: eAG: (Estimated average glucose) is a calculated value from HgbA1c and is dermatology sales representative of the average blood glucose level in the last 2-3 month period. Performed By: #### 5 5454-3 ####[facility] LABCLIA [id number] [place] [address] [place] HbA1c (Bld) [Mass fraction] 7.2 % High 4.3-5.6 [facility] Comment on above: Order Comment: Speci men Type: BLOOD SPECIMENOrdering Facility: [facility] Address: [address] [place] [address] Result Comment: Amer [place] Diabetes Association guidelines indicate that patients with HgbA1c in the range 5.7-6.4% are at increased risk for development of diabetes, and intervention by lifestyle modification may be beneficial. HgbA1c greater or equal to 6.5% is considered diagnostic of diabetes. Performed By: #### 5 5454-3 ####[facility] LABCLIA [id number] [address] [facility] Lipid 1996 panelon 5 Cholesterol [Mass/Vol] 119 mg/dL Normal <200 [facility] Comment on above: Order Comment: Kamla clark Type: BLOOD SPECIMENOrdering Facility: [facility] Address: [address] [place] [address] Result Comment: <200 mg/dL, Desirable 200-239 mg/dL, Borderline high >239 mg/dL, High Performed By: #### 3 016-3 ####[facility] LABCLIA [id number] [place] [address] [place]#### 34487-5 ####[facility] LABCLIA [id number] [address] STATES OF [facility] [id number] [address] [place] Cholesterol in HDL [Mass/Vol] 29 mg/dL Low >39 [facility] Comment on above: Order Comment: Kamla clark Type: BLOOD SPECIMENOrdering Facility: [facility] Address: [address] [place] [address] Result Comment: 40-5 9 mg/dL, Acceptable >59 mg/dL, High: Negative risk factor for coronary heart disease <40 mg/dL, Low: Positive risk factor for coronary heart disease Performed By: #### 3 016-3 ####[facility] LABCLIA [id number] [address] [place]#### 31038-0 ####[facility] LABIA [id number] [address] [id number] [address] [place] Cholesterol in LDL [Mass/Vol] 59 mg/dL Normal <100 [facility] Comment on above: Order Comment: Speci men Type: BLOOD SPECIMENOrdering Facility: [facility] Address: [address] [place] [address] Result Comment: <100 mg/dL, Optimal 100-129 mg/dL, Near optimal/above optimal 130-159 mg/dL, Borderline high 160-189 mg/dL, High >189 mg/dL, Very high Secondary prevention optimal LDL Cholesterol levels are recommended to be < 70 mg/dL Performed By: #### 3 016-3 ####[facility] LABCLIA [id number] [address]#### 84258-8 ####[facility] LABCLIA [id number] [address] [id number] [address] Cholesterol in LDL/Cholesterol in HDL [Mass ratio] 2.03 {ratio} Normal <2.54 [facility] Comment on above: Order Comment: Speci men Type: BLOOD SPECIMENOrdering Facility: [facility] Address: [address] [place] [address] Result Comment: Refe rence: 1. National Cholesterol Education Program ATP III Guideline At-A-Glance Quick Desk Reference: National Heart, Lung, and Blood [place]. National Institutes of Health. 2001: NIH Publication No. 01-3305. 2. An International Atherosclerosis Society position paper: global recommendations for the management of dyslipidemia: executive summary, Atherosclerosis. 2014: 232(2):410-413. Performed By: #### 3 016-3 ####[facility] LABCLIA [id number] [place] [address] [place]#### 42411-3 ####[facility] LABCLIA [id number] [address] [id number] [place] [address] [place] Cholesterol in VLDL [Mass/Vol] 31 mg/dL High <30 [facility] Comment on above: Order Comment: Speci men Type: BLOOD SPECIMENOrdering Facility: [facility] Address: [address] [place] [address] Performed By: #### 3 016-3 ####[facility] LABCLIA [id number] [place] [address] [place]#### 62614-0 ####[facility] LABCLIA [id number] [address] STATES OF [facility] [id number] [place] [address] [place] Cholesterol non HDL [Mass/Vol] 90 mg/dL Normal <130 [facility] Comment on above: Order Comment: Speci men Type: BLOOD SPECIMENOrdering Facility: [facility] Address: [address] [place] [address] Result Comment: <130 mg/dL, Optimal 130-159 mg/dL, Near optimal/above optimal 160-189 mg/dL, Borderline high 190-219 mg/dL, High >219 mg/dL, Very high Secondary prevention optimal non HDL Cholesterol levels are recommended to be <100 mg/dL Performed By: #### 3 016-3 ####[facility] LABCLIA [id number] [place] [address] [place]#### 81928-6 ####[facility] LABCLIA [id number] [address] [id number] [place] [address] [place] Cholesterol.total/Leticia sterol in HDL [Mass ratio] 4.10 {ratio} Normal <5.10 [facility] Comment on above: Order Comment: Speci men Type: BLOOD SPECIMENOrdering Facility: [facility] Address: [address] [place] [address] Performed By: #### 3 016-3 ####[facility] LABCLIA [id number] [place] [address] [place]#### 21348-6 ####[facility] LABCLIA [id number] [address] STATES [facility] [id number] [place] [address] [place] FASTING TIME 12 hrs Normal [facility] Comment on above: Order Comment: Speci men Type: BLOOD SPECIMENOrdering Facility: [facility] Address: [address] [place] [address] Performed By: #### 3 016-3 ####[facility] LABCLIA [id number] [place] [address] [place]#### 70507-8 ####[facility] LABCLIA [id number] [place] [address] [place] [facility] [id number] [place] [address] [place] Triglyceride [Mass/Vol] 157 mg/dL High <150 [facility] Comment on above: Order Comment: Speci men Type: BLOOD SPECIMENOrdering Facility: [facility] Address: [address] [place], [place] [address] Result Comment: <150 mg/dL, Normal 150-199 mg/dL, Borderline high 200-499 mg/dL, High >499 mg/dL, Very high Performed By: #### 3 016-3 ####[facility] LABCLIA [id number] [place] [address] [place]#### 11934-8 ####[facility] LABCLIA [id number] [address] [id number] [place] [address] [place] TSH SerPl-aCncon 04-26-2024 TSH Qn 1.720 m[IU]/L Normal 0.270-4.200 [facility] Comment on above: Order Comment: Speci men Type: BLOOD SPECIMENOrdering Facility: [facility] Address: [address] [place] [address] Performed By: #### 3 016-3 ####[facility] LABCLIA [id number] [place] [address] [place]#### 97559-1 ####[facility] LABCLIA [id number] [address] [id number] [place] [address] [place] Urinalysis complete panel (U )on 04-26-2024 BACTERIA UL 1174.7 uL High Negative Good [facility] Comment on above: Order Comment: Speci men Type: URINE SPECIMENOrdering Facility: [facility] Address: [address] [place] [address] Performed By: #### 2 4356-8, 630-4 ####[facility] LABCLIA [id number] [place] [address] [place] Bilirubin Ql (U) Negative Normal Negative [facility] Comment on above: Order Comment: Speci men Type: URINE SPECIMENOrdering Facility: [facility] Address: [address] [place] [address] Performed By: #### 2 4356-8, 630-4 ####[facility] LABCLIA [id number] [place] [address] [place] Clarity (Unsp spec) Cloudy Abnormal Clear [facility] Comment on above: Order Comment: Speci men Type: URINE SPECIMENOrdering Facility: [facility] Address: [address] [place] [address] Performed By: #### 2 4356-8, 630-4 ####[facility] LABCLIA [id number] [place] [address] [place] Color (U) Yellow Normal Yellow [facility] Comment on above: Order Comment: Speci men Type: URINE SPECIMENOrdering Facility: [facility] Address: [address] [place] [address] Performed By: #### 2 4356-8, 630-4 ####[facility] LABCLIA [id number] [place] [address] [place] Epithelial cells LM.HPF (Urine sed) [#/Area] Moderate Normal [facility] Comment on above: Order Comment: Speci men Type: URINE SPECIMENOrdering Facility: [facility] Address: [address] [place] [address] Performed By: #### 2 4356-8, 630-4 ####[facility] LABCLIA [id number] [place] [address] [place] Glucose Test strip (U) [Mass/Vol] 3+ Abnormal Negative [facility] Comment on above: Order Comment: Speci men Type: URINE SPECIMENOrdering Facility: [facility] Address: [address] [place] [address] Performed By: #### 2 4356-8, 630-4 ####[facility] LABCLIA [id number] [place] [address] [place] Hemoglobin Ql (U) Negative Normal Negative [facility] Comment on above: Order Comment: Speci men Type: URINE SPECIMENOrdering Facility: [facility] Address: [address] [place] [address] Performed By: #### 2 4356-8, 630-4 ####[facility] LABCLIA [id number] [place] [address] [place] Hyaline casts (Urine sed) [#/Area] 1-3 /LPF Abnormal 0 /LPF [facility] Comment on above: Order Comment: Speci men Type: URINE SPECIMENOrdering Facility: [facility] Address: [address] [place] [address] Performed By: #### 2 4356-8, 630-4 ####[facility] LABCLIA [id number] [place] [address] [place] Ketones Ql (U) Negative Normal Negative [facility] Comment on above: Order Comment: Speci men Type: URINE SPECIMENOrdering Facility: [facility] Address: [address] [place] [address] Performed By: #### 2 4356-8, 630-4 ####[facility] LABCLIA [id number] [place] [address] [place] Leukocyte esterase Test strip Ql (U) 2+ Abnormal Negative [facility] Comment on above: Order Comment: Speci men Type: URINE SPECIMENOrdering Facility: [facility] Address: [address] [place] [address] Performed By: #### 2 4356-8, 630-4 ####[facility] LABCLIA [id number] [place] [id number] [place] Nitrite Ql (U) Negative Normal Negative [facility] Comment on above: Order Comment: Speci men Type: URINE SPECIMENOrdering Facility: [facility] Address: [address] [place] [address] Performed By: #### 2 4356-8, 630-4 ####[facility] LABCLIA [id number] [place] [address] [place] pH (U) 5.5 [pH] Normal <8.5 [facility] Comment on above: Order Comment: Speci men Type: URINE SPECIMENOrdering Facility: [facility] Address: [address] [place] [address] Performed By: #### 2 4356-8, 630-4 ####[facility] LABIA [id number] [place] [address] [place] Protein (U) [Mass/Vol] Negative Normal Negative Cl [facility] Comment on above: Order Comment: Speci men Type: URINE SPECIMENOrdering Facility: [facility] Address: [address] [place] [address] Performed By: #### 2 4356-8, 630-4 ####[facility] LABIA [id number] [place] [address] [place] RBC LM.HPF (Urine sed) [#/Area] 0-2 /HPF Normal 0-2 /HPF [facility] Comment on above: Order Comment: Speci men Type: URINE SPECIMENOrdering Facility: [facility] Address: [address] [place] [address] Performed By: #### 2 4356-8, 630-4 ####[facility] LABIA [id number] [place] [address] [place] Specific gravity (U) [Rel density] 1.027 Normal 1.005-1.030 [facility] Comment on above: Order Comment: Speci men Type: URINE SPECIMENOrdering Facility: [facility] Address: [address] [place] [address] Performed By: #### 2 4356-8, 630-4 ####[facility] LABIA [id number] [address] [id number] [address] [place] Urobilinogen Ql (U) 0.2 EU/dL Normal 0.2-1.0 EU/dL [facility] Comment on above: Order Comment: Speci men Type: URINE SPECIMENOrdering Facility: [facility] Address: [address] [place] [address] Performed By: #### 2 4356-8, 630-4 ####[facility] LABCLIA [id number] [address] [place] [facility] WBC LM.HPF (Urine sed) [#/Area] /[HPF] Abnormal 0-5 /HPF [facility] Comment on above: Order Comment: Speci men Type: URINE SPECIMENOrdering Facility: [facility] Address: [address] [place] [address] Performed By: #### 2 4356-8, 630-4 ####[facility] LABCLIA [id number] [address] CYTOLOGY NON-GYNOrdered By: Corina Olmos on 04-05-2024 Case Report Medical Cytology Report Case: [id number] Authorizing Provider: Justin Christopher MD Collected: 04/03/2024 01:55 PM Ordering Location: General Surgery Received: 04/03/2024 04:53 PM Pathologist: Corina Olmos MD Specimen: Thyroid, Left, Lobe, left thyroid [facility] Work Phone: Clinical History d1xgqLNfUSGkbYGjZRiz M frieoIcPHFigXOvC9Fccp djHEzvIZ1yDM8ipIkxxVM acXRyCRBvMaJjn9ojt508 wUOzv0qcWHXXbkekbNd6a UssN48co0O2ChriW52rqO IzLGJ1GDErHBDxsYEaMQC vVDP6JZKbbKFaI6fyBJSi PS6ockxhXCzlUXjuUQJuf FH6BWDvmTYfG1OyYGAgNF zrUJUbquh3IyKyIo2cnOI yeTcyMFxwYXJkXHBsYWlu XKKwUjEwaAn0ac9aJDXhr 0Z2bZVjaFRgHXFcsoZFUr tkcNQkgrEmCZq6ENLsaKE yfQ== [facility] Work Phone: Diagnosis Comment s8fomTNyKZCviAWsKRtm M jpogeEhABVsaRXbY5Npeo ltVTmwRC0iDE6syGoytVX haRHhCHHfQaJyp9wwn395 wRPhj7bqVBXZekfezFp7l DiwR61gy9Q3QhtaX69eoL OjTRS8ZBFaLTZszKEgKJP dDUA7TKEwbQCbZ6exFBWp AV7ymmhzENfrQFtsGSPeq PI9KIJvpVZgZ7TqPCXzSW trIBObava4ZyHdFt1kaSW yeTcyMFxwYXJkXHBsYWlu XGZzMjAgRmVhdHVyZXMgc 3ZaE9IeqWg9MSCmOeNxfH DsuhqlCDz0xZIsm2W5iHb jIHRoeXJvaWRpdGlzIGlz IHByZXNlbnQuICBQbGVhc 1GkQ73nhbXnBDYlQFwsgX duM9kxzbyrKYvdMX9jSCd uIEbukycoQfsrXElyW9Ng XHBhcn0= [facility] Work Phone: FINAL DIAGNOSIS k8jseFZmEEBrfBMeFUhz M xyidsFcGGSpaGHvW6Voff llQAbrPO3tVE4vvYkcyTN vtLXvFENdJvOgj4ymt624 bGAma1biCINMlgnzfRs1o VknG19gf3E4DczpX5hzAF QwXGdyZWVuMFxibHVlMDt ccmVkMFxncmVlbjBcYmx1 FIL4OAy5QENlzLYzbyPcR iKvYCXbxUTacPC9FRKpYY 5pamfvKpThSP3kfpcdEdO bST2jurx7LaEhAZ9cylsh OcPiCVjiTAAqqfp9VqTbZ g3ojFDcjJjmUFbhX4rkdB 3xGuB1HQviX8ymmD5oSKc 8UStoOGQsyPP9vbcaTOoj EQZavmG4kwxrHYlxRJGwc OQ4gnsxEWypMCViLdN0lb cyMFxwYXJkXHBsYWluXGJ cZnMyMlxjZjEgQSAtIFRo eXJvaWQsIExlZnQsIExvY mUsIEZOQSAgXHBhciAgIC AgICAgICAgQmVuaWduLjs wEAHrLGIek91zYN47FMNu npJaPSQsPPOhYRTvPDn4S ULvlXjnst6mRR2sYE9iQ5 PxZh2zpUduhMIwVTJnrQy 9HWYdp1h8uJBtE9TrnWJe rK0rzM1cmJRwywWmjlYaX FJ9xpXzqfUxE92dpI5dEH xwYXIgICAgICBccGFyXGN vGKc4ADClRWQnUBXvPDNz clxwYXJcYjAgVGhlIGZvb Bylu6ilSyIyHZfjCMAnw4 ZlntU3ALSgYKLwh77tlOF 4FPWyq8v6jXB6qZoaYLKx l2D1TUWygtTAMWy2XZRaJ 0AeoJDEeX5aahclIZqmu5 kefHSDrTylJUb4SIVxxUI hIRYbS3GhTIKbwmmsEOrh ZjBccGFyfQ== [facility] Work Phone: Gross Description w4pqfTWtVJMeuMTZYXK4 M CAuPW7caHkdfJg1mNloOB XigjF1nBCzVTquh6ixJUV 0b2cwugDSYbwrXMMxEH7q AHkfEMRsTZ8oRpNpBVXlN mYxXHBhcGVydzEyMjQwXH IewWNbcEX5AEHpDF9gnmz uTSvpWWdeAGFkhpO4XTZz sHAjH4NdIROmKF0eujmcV JI4HUBVKlnxMt0xhXOyaS tcZjFcZmNoYXJzZXQwXGZ yc9lrsjRZdvbkmUw7tF7X CXPeA7JkFV1Xu9ynHTLoy ZKoFOB7HKegk4kaMCbhHS D5FOLsHZOwDNOtVI6NAsP uMAn5SSD0KoCyLjB1COa7 QLUMPWTaQLWmKYE9MHqjR Cx5CRygIWcfkNVhOQQdIU GmALBbPSgqnbF6u5ilEWO wxBSmMGM1DYidb9gcCZei OHG4BTHiDqYzOZRhHZ6IR hDmSLh8BGV0AoJxUeE4KC k5HBDTEbKbFcPzVbZaWOV 4WnbyBNr9BXg1ONjFTbEo RIuhTQjxWWWwYFO2GER0S SBcXHQgMiBcXHNzIDMgXF eviPOvHH7dxGmdJXTfYK3 NZTJxXEmmRWIaNsSbGF6w JNk3tn5hQHjmFAMsjJqjA P7zMCuwnRPadSdcCRNxVP pccGFyZCANClxwbGFpblx sdHJjaFxmczIyXGVwaWNO VBP2VX6rBDDXVifwyVRqN XIgDQozMCBjYyBccHJvdG GljXpfDnvtnIO8COkoLyp jtR9zfECUWXMBOhaTQrha gdHeKZ0MOFPNUoQKRG04K DCfSnM0nKR2VU10YDViTD TfxUNwKSfbH016T3qfYNN 7ICIpIQogz5tgBXZvOKan n6IaYZkMPMYFNO4KOK4zf QS1BUqIISYMWTtfKEV0DZ O1IUtzzKmnCdtcmiGycWR vZhZRlP7meWkmhQ2ojOMs A4efPiClNeBvCLRun3RgR 5I1IAOrQSngx4cbASGvPH znj3LoOAnPGLHSSM5XVO2 riYS3WMoTWGTUO6rKtFP8 QSlfOEeyzJD2y7augEIrx 6j8SNtsJNV0rHBqftk9TZ IzXHrjj9loCSZyUCqot6Y gJXsWBVMDHJ8MZE5ehQI2 AWdGYICUJAepGJX2PHJ0Y nwyfXtcZmxkcnNsdCBcJz QCiF7ucCrgoA3rvVLxB4u zJoHyMwMcHULgl2MwB2T2 SYKuFGscw3aqNSJnBAefi 1YpJLvMIFGXFT1GOI0myB K1SYoRKVTTV4fHnEC8DVw dRHvpcPA6u9gnuSRda3d2 ZKkiPEI0xSX4rO5AbSI7X WPbNRfbi6roSVHmOSxjp6 KtKCjOJZPADW4EGQ4apHG 1BNrRXHHNRAwxLBF9MSq9 I7ymmNnnNnhzlnExjXQnR iJTvO3yxFnuqX3slWHaG3 gfWpCePjJxFHAlk8ZlI1X 2IHPuMAywk1cpYNEvXXik z2MbQAjGWGOSHP5ZKA7tk PK2YQwMEBLHM2fMxLT2AK xlHWu3jOG7y5dirYZyu9o 8MGhyJKD6iNltfYdjrOGf rLmvqLPqn1pynJOgWWotD akluFMyuuX4BUwXGWUBZB gKTkJtRQ9nPTkDR4MLSvP 3PLJyYsEvpLE2UN93TBAz GXWfnOAbQMfyS344DHOwI UroCEe0qgDoDBGxBcXxIh ScJXBvh4QhE0F9SENkIFe zb1lkOVMuZGunv1FpJMtP VFFQYF6CHG6phJM0DZiQL LRCX2pVkSP1NVO7R8b9zE G8i8zxtTCyq6v7XHodGYG 8eYAqgD6TcsOzJEQfHHQI LVcvSKKqs1Yrn6porXZyV KpaThmuhTMctnJ2CUkBNC QCZMbDYyCyBD5hHZdAD9C UZpS2OWE6WVl4fQE0MR03 ONWcXIWdhHLcNUliX348Z KLeWWmgXJd3bmGjTQYbVi IgIHByZXBhcmVkIFxwcm9 7MHF0g2aoxZDdRKtiQtjc fYQheyX3DWzTUBYKMAcSM hWaCI3lLCpXZ9GIZKtEGu enBRN7MQY9Uwy7rUksSsd umiLddZPgPyHUuT4jneFd ZMRnj8MsQ8Nof2ctbBEdI KoyYloatAOzygX7KYaEXM IASErVHfDdAR1bNPqKNSX SIQkYVgr8iZumYgmrelGm tSOeHtGYyM17x4hpwAJyG QklPwgzoPVjdqT8JBnIDZ XAQDuWHyTrLL2jMEaXNNW HUkK5O665UCXzIQFzuSNw VEtjH395PXXsEOioZLq5e bJwSVMmq7NyQ7IwWmXgSu Mwv95oVFJtGgqrFqhgvXH 5HSozIwnnuF8dxKAAHKNN RudXDrperwVsJG0XDXJNO V1NoZD3ANdvZMm7zGB7x9 odmNPtr2c8ZFhwJDR7bXo wbGFpblxsdHJjaFxmczIy XHBhciANClxwYXIgDQpBZ gczyLWjcrXsWMz9MHLfpY RqLK1BYCZeEbXrTPOvK9r mTNTnDQ1PAERvH86UOtLK CXCBI34INEWAGEVKD4CGM 9pSIVP1GMggICcySUDmHP SpXpL3rAR8IWMoUVJrBfL 4kUY2KW6wFWV2UwV8ID6g KtE8NUP3V0l9QQXuFKTnX JU7xFZ2JYr5IsYMXNSIJI oSN8QtJYBCAWPWWDZuBD8 FEHzKMIYCNYKUT02NEFHV WHLRB6TXO8oIJZoczmyHT FlXL9YZMO0XZPTZETEIJE 0UExDwFUlZD6PMD9zCPWS dGLGFPIUVHEOjRyFWHU9z DVt2W4yOVsqPWWgfVGA0R FRbxODml9QKBN9RCwL0BS kyLCa6L4f0FTAFAZXTZWr 9ORXnMlT9FF77PQqMBEZV OESBIBJ4IJNyEgKiOQ02X YyZFZFNKIWUC8iXDnD5NQ K2M3z1Vfj1J59CMPPFOSK XS9LHKeQNMvA7XQanNUv2 KVKQXDVYQY7WKCQUG71JO SATQRLYJ4BZQSGIWhHMFP OXH37UHYVYLBJMA2HYG8j XOTNXDyBWITHJO16OPHKQ HBPHL0XZEKPDUIIVEcOFO jOLGT5DAFYEQWUOWX1VXP nQOuWlBXRHG8KYXcMMS5n bDRHCIGJKYGIoHW3PWTfy xhEqDDTyY70fl6CKu4Fgm 9etfFrdu7GcjSUfLB29LR MhcUPeYZF6MN5fiGuaAIT fMGjmtRXfQJZKRjf1WPSC Cn0= [facility] Work Phone: Performing Lab v3ojxOTkBPNqb1ugWGQp b GFuZzEwMzNcZnRuYmpcdW MxIHtccnRmMVxhbnNpXGR gAwbghxmeAESoAZI7cfBr DVOaBAP8HGA6GuFfy8K7P QZbCtYpPEEgUT1hzDesJS IrLF0sOXIsP8iztF5vnob 8UvKjHFVmKiA7UABwwyR9 Utg5EMRlNAptg4rdv1LjS FHnOLz9sAxzKrKnOLOlm3 lzcyBcZmNoYXJzZXQwIEF mtVIzW534h0kaz5nqgwGk wKN4QZKhBQG0HEfonuAlo bR2GRdkzAEbNdR7VJeyai UxALbfiaXwdtMvUme2UCD rP207QOT9nJwya2wsURO0 HCRoZVGyMvBlPg4ryQAsQ 621BZUlOHSBBEMwuAr5XK RrrbCwwzPxlCXMi003J09 7t2hoGECeyhOfxZiKvcwy n8gcA563CXMnyHTvqkKsP yFwQFCmxKPrlJE2YHQbNA 1hcmdsMTgwMFxtYXJncjE 2JGVnwJDgT3FpMNFuQT7e mzduDMR1HSyvYYPdBFJ0S rQqOSErh2Igdsw0AgFqrj 0aqs08CNS4l3HziDruMNP 2XKS7XaRxSv9upGKfSODo FC9eXdGyaGDcQJXtby35c BuaOGzhyhAvrG1xChKdXC PhhNPrREHpGE9glFPkNKY krT8wteapUVBxVjDgpoac IVXkcOsjvpMaGj6puJdrJ KS5KKupP9afqZ7eWsI9ZJ peP5puwQ0xLBz4WOsliGB 8JXNarA6kVD9xbnjbb6lf OXbaFBcnTWNgwlQ6vdO1V DOizBBxK7NfaR0nKUVlBI 9edyaii4mfNII0LLtzJLS zNAC7HpGwJQFpx7Cnxmo9 MvKep8MluTMkOLknG99bc 992WUUlzaFiE9kreDJncq vnfBVraduzAWvkbnJ6HBH sXHBsYWluXGYxXGZzMjJc bGFuZzEwMzNcaGljaFxmM NzkUaVwAULoMJqrN3vxMp FcZnMyMiBUZWNobmljYWw eV73hfS0nLT59ZEYozIOh cTDwqO4flU1ogWD2VBOpp iSejhniVbBaGMEey8CjSS IxJBNqQ6fabvMkCK4xEKM peB1gRjazSPYwNHMHoRBk cEOmCPJnVAQQxSE7EDmbg mCxC1auBCBiXIEmQEUYJO nAViOeKfBoIyD0LPp5ISD mum71u5yruHZiWXTptBNh HoThQXTtSZFas8zcUSQuc GFuZzEwMzNcZnRuYmpcdW DjFXVoQpTef3ceg104dOE uw0aaUVKnDwW1uMIpYKBh aSPhR105COOcDShxk7rrk 2NzSPSzxRGfo0J6HAGYdi raqMc5rOswX63em7B0Srp iO9ecWEGaYAGkR6WeYK1m KAQxBgc9MIS9UYL2JQUbG UDiG3PuCW0sYTLocIKnGF s2x7lxhDlqXCSaRQA2s9m yNUewprLgAW6ikp1upKh2 b9mpmiUiMZZeZZGcqUTZD OOhV6QaiLsgPw9huUm3dW ifUxpbXZI0Ace3GR2mho5 3amt0mLegRFFlfjchJpS0 KGsfOKVdoegwSMe0AUovR EPhzOH8OVWdcVUmP9PzXS cbWV7afrt9JSW1XYuqMXO tEwC8EYZguGXnZMIqgUyo NMihg321UIO0ZqFfXD9nA 4Ubq9D3mU2boSClIAQsuM TxDlItFMXvzl1ptHNvEJp lb7MiPTF0ajY3rYVomIPc KBXpYA83Qbdas7CwTouvr 6FhH06ufNH5UOqvn9yjSP 4bHwO7elMqOXtbe3kmeN4 sPzE7VOueGA2aKD7jUGAg jZ8qjknpKMZwBjGcfkmkV MUstPohcoAhTl9ovHbmAT K4MAeqY7mpbM1bKkC5BGo gG5znyP3aTLw5KBbeqMZ4 XWOrsZ2qMI3kdybbm6aaL WfiMZyrGSRgxdH3lxCwHI GfaNKfG9ChhT0cKGVvBG2 yggzqa4wbYOC6QVpvFHBt PZW7BuSzVWYli8Qbapd8C jHoc9YldLFjAObpR06lc7 65MSDtajHdT1onnCJxvjl pwGCkqefjECinvvB2PMOu XHBsYWluXGYxXGZzMjBcb GFuZzEwMzNcaGljaFxmMV pnNjDvUBCoRKadN9gxPmL vVdXnLZQGnOBgun6smNpw KIcbnWJbvKIaaAV2nI8lO EPqiaKkqo4wNFUztVPQwG D1HSxzffYhS9tknamaHWA 5OIJbRGE5U4qhYRSTmaLg OPVgZPWgcGQeVYOMFVH9A GO0JWVrUXCSKLZhGEU5DF W6TPCpMEIlyARiLWUtnuu wYXJkXHBsYWluXGYwXGZz VkSmiNkfqQ7oGeDcMoMzR NisDM0qLBKkV8xqzOVdFS UgCURmT7foLwUenX4ihOr mMVxjZjJcZnMyMFxsdHJj oUSJOTKfdhU7s0F6WNlau GFpblxmMVxmczIwXGxhbm uzGSIyFTwlJ4xrQoPoZJI urBgzIZcrx1WqZINqUVDs AyUeLQopIWX9b1K1PNtgz VIjsbRGBrGLOX8fjNVjfl qxQN2EMohvnWUtgfesYQp mczIyXGxhbmcxMDMzXGhp J4axZtKoTCDyjXsvOPiav 2NoXGYxXGZzMjJccGFyfX 0= [facility] Work Phone: [facility] Work Phone: SKYLAROVon 04-03-2024 CNOV Office Visit (ANAS ) BRITNEY CANADA ([id number]) 1945 F Date Time Provider Department 04/03/24 [...] to your office visit today with the [facility] General Surgeons. Instructions After THYROID FINE [...] you have any questions or concerns @ [phone]. Please make an appointment to follow up in one week with your physician and thank you for choosing the [facility] [place]. If you note any additional difficulties, questions, or concerns, you should contact our office immediately @ [phone] and ask to be transferred to the [...] THYROID BIOPSY LEFT (POC) SURG USE ONLY [[id number]] Order #: [id number]. 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 #:[id number] Prescriptions as of 04/10/2024 - levothyroxine (LEVOXYL) [...] as of (more content not included)... Normal [facility] CYTOLOGY NON-GYNon 5 CASE REPORT Normal [facility] Comment on above: Order Comment: Speci men Type: SPECIMEN OBTAINED BY ASPIRATIONOrdering Facility: [facility] Address: [address] [place] [address] Result Comment: [facility] Cytology Report Case: [id number] Authorizing Provider: Justin Christopher MD Collected: 04/03/2024 01:55 PM Ordering Location: General Surgery Received: 04/03/2024 04:53 PM Pathologist: Corina Olmos MD Specimen: Thyroid, Left, Lobe, left thyroid Performed By: #### C YTONON ####[facility] LABCLIA [id number] [address] [place] CLINICAL HISTORY thyroid nodule Normal [facility] Comment on above: Order Comment: Speci men Type: SPECIMEN OBTAINED BY ASPIRATIONOrdering Facility: [facility] Address: [address] [place] [address] Result Comment: Afirma received Performed By: #### C YTONON ####[facility] LABCLIA [id number] [address] DIAGNOSIS COMMENT Features suggestive of chronic lymphocytic thyroiditis is present. Please correlate with clinical and imaging findings. Normal [facility] Comment on above: Order Comment: Speci men Type: SPECIMEN OBTAINED BY ASPIRATIONOrdering Facility: [facility] Address: [address] [place] [address] Performed By: #### C YTONON ####[facility] LABIA [id number] [address] FINAL DIAGNOSIS Normal [facility] Comment on above: Order Comment: Speci men Type: SPECIMEN OBTAINED BY ASPIRATIONOrdering Facility: [facility] Address: [address] [place] [address] Result Comment: A - Thyroid, Left, Lobe, FNA Benign.; See comment Mixed micro and macrofollicles admixed with scant lymphocytes and abundant colloid The following cell blocks were associated with this case: A1 Cell Block, Alcohol Fixed Performed By: #### C YTONON ####[facility] LABCLIA [id number] [address] STATES OF [place] [facility] FINAL PERFORMING LAB Normal [facility] Comment on above: Order Comment: Speci men Type: SPECIMEN OBTAINED BY ASPIRATIONOrdering Facility: [facility] Address: [address] [place] [address] Result Comment: Tech nical component, features reporter screening performed at [facility], [address] [place] [address] CLIA# [id number] Diagnostic interpretation performed at [facility], [address] [place] [address] CLIA# [id number] [employer] Winding Machine Tender: Jasvir Valdes M.D. Performed By: #### C YTONON ####[facility] LABIA [id number] [place] [address] [place] GROSS DESCRIPTION Normal [facility] Comment on above: Order Comment: Speci men Type: SPECIMEN OBTAINED BY ASPIRATIONOrdering Facility: [facility] Address: [address] [place] [address] Result Comment: A. T hyroid, Left, Lobe 30 cc clear pink CytoLyt with particles. ThinPrep and Cell Block prepared and 8 smears. Afirma received Performed By: #### C YTONON ####[facility] LABCLIA [id number] [place] [address] [place] US THYROID BIOPSY LEFT (POC) SURG USE ONLYon 04-03-2024 [facility] CNNURSEon 03-20-2024 [facility] Nurse Visit (ROMELIAPWS) BRITNEY CANADA ([id number]) 1945 F Date Time Provider Department 03/20/24 11:45 AM [place] NURSE ROMELIAPWS During your visit today, we [...] Encounter Status:Closed by AGUEDA SABILLON on 03/20/24 [facility] CNOVon 03-20-2024 CNOV Office Visit (ANAS ) BRITNEY [place]NA[place] ([id number]) 1945 F Date Time Provider Department 03/20/24 [...] PHYSICAL [place] 1945 REFERRING PHYSICIAN: Astrid Mues APRN.CNP CHIEF COMPLAINT: Consult (Thyroid Nodule) HPI: [...] 3 Curre (more content not included)... Normal [facility] CNOVon 03-15-2024 CNOV Office Visit (INTMWS ) BRITNEY [place] ([id number]) 1945 F Date Time Provider Department 03/15/24 10:20 AM ASTRID MUSE INTFERNANDA During your visit today, we recorded the following information about you: Pulse Respiration Blood pressure Weight 60/minute 16/minute 128/74 82.6 kg Astrid Muse APRN.CNP 03/15/2024 11:10 AM Signed CC: Patient presents [...] PCP T (more content not included)... Normal [facility] Neurology Visit Reporton Neurology Visit Report [facility] [address], [address] [place] [address] OFFICE VISIT Date of Service: 03/14/24 MR#: [id number] Acct: [id number] Name: BRITNEY [place]NADA Rep #: [id number] : 1945 Provider: Dr. Fabiano coreas MD Age/Sex: 78/F Location: [facility]. Status: Signed HPI [facility] Chief Complaint: Details: Interim History: Britney returns [...] follow-up. Head/neck CTA (02/06/2020): IMPRESSION: 1. Normal kiana of [place] without evidence of intracranial aneurysm [...] white m (more content not included)... Normal [facility] CNNURSEon 02-21-2024 CNN[facility] Nurse Visit (FAMPWS) BRITNEY [place]NA[place] ([id number]) 1945 F Date Time Provider Department 02/21/24 11:45 AM [place] NURSE JOE During your visit today, we [...] Encounter Status:Closed by AGUEDA SABILLON [facility]21/24 [facility] BRITNEY [place] ([id number]) 1945 F Date Time Provider Department 02/14/24 [...] Status:Closed by AGUEDA SABILLON on 02/14/24 Normal [facility] Bacteria Ur Culton 4 Bacteria identified [...] technique or straight catheterization for???urine???collect ion. Normal [facility] Comment on above: Performed By: #### 2 4356-8, 630-4 ####[facility] LABCLIA [id number] [place] [address] [place] Urinalysis complete panel (U )on 02-11-2024 Bacteria LM.HPF (Urine sed) [#/Area] Negative Normal Negative [facility] Comment on above: Order Comment: Speci men Type: URINE SPECIMENOrdering Facility: [facility] Address: [address] [place] [address] Performed By: #### 2 4356-8, 630-4 ####[facility] LABCLIA [id number] [place] [address] [place] Bilirubin Ql (U) Negative Normal Negative [facility] Comment on above: Order Comment: Speci men Type: URINE SPECIMENOrdering Facility: [facility] Address: [address] [place] [address] Performed By: #### 2 4356-8, 630-4 ####[facility] LABIA [id number] [place] [address] [place] Clarity (Unsp spec) Clear Normal Clear [facility] Comment on above: Order Comment: Speci men Type: URINE SPECIMENOrdering Facility: [facility] Address: [address] [place] [address] Performed By: #### 2 4356-8, 630-4 ####[facility] LABIA [id number] [place] [address] [place] Color (U) Yellow Normal Yellow [facility] Comment on above: Order Comment: Speci men Type: URINE SPECIMENOrdering Facility: [facility] Address: [address] [place] [address] Performed By: #### 2 4356-8, 630-4 ####[facility] LABCLIA [id number] [place] [address] [place] Epithelial cells LM.HPF (Urine sed) [#/Area] Moderate Normal [facility] Comment on above: Order Comment: Speci men Type: URINE SPECIMENOrdering Facility: [facility] Address: [address] [place] [address] Performed By: #### 2 4356-8, 630-4 ####[facility] LABCLIA [id number] [address] [place] Glucose Test strip (U) [Mass/Vol] 3+ Abnormal Negative [facility] Comment on above: Order Comment: Speci men Type: URINE SPECIMENOrdering Facility: [facility] Address: [address] [place] [address] Performed By: #### 2 4356-8, 630-4 ####[facility] LABCLIA [id number] [place] [address] [place] Hemoglobin Ql (U) Negative Normal Negative [facility] Comment on above: Order Comment: Speci men Type: URINE SPECIMENOrdering Facility: [facility] Address: [address] [place] [address] Performed By: #### 2 4356-8, 630-4 ####[facility] LABCLIA [id number] [place] [address] [place] Hyaline casts (Urine sed) [#/Area] 0 /[LPF] Normal 0 /LPF [facility] Comment on above: Order Comment: Speci men Type: URINE SPECIMENOrdering Facility: [facility] Address: [address] [place] [address] Performed By: #### 2 4356-8, 630-4 ####[facility] LABCLIA [id number] [place] [address] [place] Ketones Ql (U) Negative Normal Negative [facility] Comment on above: Order Comment: Speci men Type: URINE SPECIMENOrdering Facility: [facility] Address: [address] [place] [address] Performed By: #### 2 4356-8, 630-4 ####[facility] LABCLIA [id number] [place] [address] [place] Leukocyte esterase Test strip Ql (U) 1+ Abnormal Negative [facility] Comment on above: Order Comment: Speci men Type: URINE SPECIMENOrdering Facility: [facility] Address: [address] [place] [address] Performed By: #### 2 4356-8, 630-4 ####[facility] LABCLIA [id number] [place] [address] [place] Nitrite Ql (U) Negative Normal Negative [facility] Comment on above: Order Comment: Speci men Type: URINE SPECIMENOrdering Facility: [facility] Address: [address] [place] [address] Performed By: #### 2 4356-8, 630-4 ####[facility] LABCLIA [id number] [place] [address] [place] pH (U) 6.0 [pH] Normal <8.5 [facility] Comment on above: Order Comment: Speci men Type: URINE SPECIMENOrdering Facility: [facility] Address: [address] [place] [address] Performed By: #### 2 4356-8, 630-4 ####[facility] LABCLIA [id number] [place] [address] [place] Protein (U) [Mass/Vol] Negative Normal Negative Cl [facility] Comment on above: Order Comment: Speci men Type: URINE SPECIMENOrdering Facility: [facility] Address: [address] [place] [address] Performed By: #### 2 4356-8, 630-4 ####[facility] LABCLIA [id number] [place] [address] [place] RBC LM.HPF (Urine sed) [#/Area] 0-2 /HPF Normal 0-2 /HPF [facility] Comment on above: Order Comment: Speci men Type: URINE SPECIMENOrdering Facility: [facility] Address: [address] [place] [address] Performed By: #### 2 4356-8, 630-4 ####[facility] LABIA [id number] [place] [address] [place] Specific gravity (U) [Rel density] 1.033 High 1.005-1.030 [facility] Comment on above: Order Comment: Speci men Type: URINE SPECIMENOrdering Facility: [facility] Address: [address] [place] [address] Performed By: #### 2 4356-8, 630-4 ####[facility] [id number] [place] [address] [place] Urobilinogen Ql (U) 0.2 EU/dL Normal 0.2-1.0 EU/dL [facility] Comment on above: Order Comment: Speci men Type: URINE SPECIMENOrdering Facility: [facility] Address: [address] [place] [address] Performed By: #### 2 4356-8, 630-4 ####[facility] [id number] [place] [address] [place] WBC LM.HPF (Urine sed) [#/Area] 11-20 /HPF Abnormal 0-5 /HPF [facility] Comment on above: Order Comment: Speci men Type: URINE SPECIMENOrdering Facility: [facility] Address: [address] [place] [address] Performed By: #### 2 4356-8, 630-4 ####[facility] [id number] [place] [address] [place] Basic metabolic 2000 panelon 02-09-2024 Anion gap [Moles/Vol] 12 mmol/L Normal 8-15 [facility] Comment on above: Order Comment: Speci men Type: BLOOD SPECIMENOrdering Facility: [facility] Address: [address] [place] [address] Performed By: #### 2 4321-2, ####[facility] SUKHJINDER MILLTOWNCLIA [id number] [place] [address] [place] Calcium [Mass/Vol] 9.9 mg/dL Normal 8.5-10.2 [facility] Comment on above: Order Comment: Speci men Type: BLOOD SPECIMENOrdering Facility: [facility] Address: [address] [place] [address] Performed By: #### 2 432-2, ####[facility] MILLTOWNCLIA [id number] [place] [address] [place] Chloride [Moles/Vol] 105 mmol/L Normal 98-107 [facility] Comment on above: Order Comment: Speci men Type: BLOOD SPECIMENOrdering Facility: [facility] Address: [address] [place] [address] Performed By: #### 2 2, ####[facility] MILLCHRISTENWYOHANNESLIA [id number] [place] [address] [place] CO2 [Moles/Vol] 23 mmol/L Normal 22-30 [facility] Comment on above: Order Comment: Speci men Type: BLOOD SPECIMENOrdering Facility: [facility] Address: [address] [place] [address] Performed By: #### 2 2, ####[facility] MILLTOWNCLIA [id number] [place] [address] [place] Creatinine [Mass/Vol] 0.62 mg/dL Normal 0.58-0.96 [facility] Comment on above: Order Comment: Speci men Type: BLOOD SPECIMENOrdering Facility: [facility] Address: [address] [place] [address] Performed By: #### 2 432-2, ####[facility] MILLTOWYOHANNESLIA [id number] [place] [address] [place] Creatinine and Glomerular filtration rate.predicted panel (S/P/Bld) 92 mL/min/1.73m??? Normal >=60 [facility] Comment on above: Order Comment: Kamla clark Type: BLOOD SPECIMENOrdering Facility: [facility] Address: [address] [place] [address] Result Comment: Shakira mated Glomerular Filtration Rate [...] reflect actual GFR. Performed By: #### 2 4321-2, 94332-9 ####[facility] [id number] [place] [address] [place] Glucose [Mass/Vol] 138 mg/dL High 74-99 [facility] Comment on above: Order Comment: Kamla clark Type: BLOOD SPECIMENOrdering Facility: [facility] Address: [address] [place] [address] Result Comment: The [place] Diabetes Association (ADA) provides guidance for cutoff [...] Standards of Medical Care in Diabetes 2016, [place] Diabetes Association. Diabetes Care. 2016.39(Suppl 1). Performed By: #### 2 4321-2, 53582-7 ####[facility] [id number] [place] [address] [place] Potassium [Moles/Vol] 4.4 mmol/L Normal 3.7-5.1 [facility] Comment on above: Order Comment: Speci men Type: BLOOD SPECIMENOrdering Facility: [facility] Address: [address] [place] [address] Performed By: #### 2 4321-2, 68275-2 ####[facility] [id number] [place] [address] [place] Sodium [Moles/Vol] 140 mmol/L Normal 136-144 [facility] Comment on above: Order Comment: Speci men Type: BLOOD SPECIMENOrdering Facility: [facility] Address: [address] [place] [address] Performed By: #### 2 4321-2, 99852-9 ####[facility] [id number] [place] [address] [place] Urea nitrogen [Mass/Vol] 10 mg/dL Normal 7-21 [facility] Comment on above: Order Comment: Speci men Type: BLOOD SPECIMENOrdering Facility: [facility] Address: [address] [place] [address] Performed By: #### 2 4321-2, 33148-1 ####[facility] [id number] [place] [address] [place] Angela 02-09-2024 PINKY Telephone (JOE) BRITNEY CANADA ([id number]) 1945 F Date Time Provider Department 02/09/24 ASTRID MUSE During your visit today, we recorded the following information about you: Astrid Muse APRN.SHERIDAN 02/09/2024 6:35 PM Signed I reviewed hospital [...] scheduled and completed. Thank you Astrid Muse APRN.Sobia Vega RN 02/10/2024 3:13 PM Signed Pt called and is notified of providers results and instructions. Pt voices understanding. Pt will call back in to schedule appointment as her is out of the car and has their calendar. 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 Gladis Vallecillo LPN Allergies As of Date: 02/09/2024 Noted Allergy Reaction DARVON (PROPOXYPHENE HCL) 10/11/2008 8 - GI Upset PENICILLINS 10/11/2008 2 - Rash Date Reviewed: 10/27/2023 Reviewed by: Chantale Alves MA - Fully Assessed Reason for Visit: Results [95] Primary Visit Diagnosis:Thyroid nodule [E04.1] Order(s):CONSULT TO GENERAL SURGERY [9011] Order #: [id number]: 1 FUTURE Prescriptions as of 02/10/2024 - [...] Encounter Status:Closed by GLADIS VALLECILLO on 02/10/24 [facility] Magnesium [Mass/Vol] 1.8 mg/dL Normal 1.7-2.3 [facility] Comment on above: Order Comment: Speci men Type: BLOOD SPECIMENOrdering Facility: [facility] Address: [facility] [place] [id number] Performed By: #### 2 4321-2, 10080-2 ####[facility] SUKHJINDER [facility] [id number] [place] [id number] [place] US THYROID/PARATHYROIDon US [...] 2 points Echogenicity: Hypoechoic, 2 points Shape: [id number], 0 points Margin: Smooth, 0 points Echogenic [...] be communicated with the ordering provider via [employer] staff message or phone message by [employer] within 2 business days of report finalization. --END OF FINDING-- Spa Associate: FAUSTO Transcribe Date/Time: Feb 10 2024 1:06P Dictated by : KAYLIN GALEANO MD This examination was interpreted and the report reviewed and electronically signed by: KAYLIN GALEANO MD on Feb 10 2024 1:49PM EST [id number] ACTIONABLE Invalid Interpretation Code [facility] CNOVon 02-02-2024 CNOV Office Visit (INTMWS ) BRITNEY CANADA ([id number]) 1945 F Date Time Provider Department 02/02/24 12:20 PM ASTRID MUSE During your visit today, we recorded the following information about you: Pulse Respiration Blood pressure Weight 56/minute 16/minute 128/72 83.9 kg OlderAstrid APRN.[facility] 02/02/2024 1:41 PM Signed CC: Patient presents with: Recheck: ER Follow up UTI HPI Britney Canada is a 78 year old female who presents today for Hospital follow-up. Patient's discharge instructions provided but no other records available. Facility: [facility] Date of visit: 01/19 - [...] Colorectal Cancer Screening Discontinued DATA REVIEWED: requesting [facility] records to be fully reviewed. ASSESSMENT/PLAN: 1. History of recent hospitalization - ICD9: V13.9, ICD10: Z92.89 (primary diagnosis) For UTI resulting in vomiting and hypomagnesemia Need to get full imaging and lab results to review for further information. At this time (more content not included)... [facility] Nurse Visit (FAMPWS) BRITNEY CANADA ([id number]) 1945 F Date Time Provider Department 01/24/24 1:15 PM [place] NURSE FAMPWS During your visit today, we recorded the following information about you: Agueda Sabillon LPN 01/24/2024 1:18 PM Signed Patient presents for B-12 injection. Denies any problems at this time. Patient instructed on any SE of medication, verbalized understanding and agreed to proceed with treatment. Tolerated injection well. Agueda JOSE Sabillon Allergies As of Date: 01/24/2024 Noted Allergy [...] Status:Closed by AGUEDA SABILLON on 01/24/24 Normal [facility] .Auto Diffon 01-21-2024 Basophil, Absolute 0.1 10 3/mcL Normal 0.0-0.2 [facility] Comment on above: Performed By: #### A DIFF, LIPID, CBC, ANEU, BMP, GFR #### [address] [address] Basophils/100 WBC (Bld) 0.7 % Normal 0.0-2.5 A [facility] Comment on above: Performed By: #### A DIFF, LIPID, CBC, ANEU, BMP, GFR #### [place] [address] [place], [place] [address] Eosinophil, Absolute 0.0 10 3/mcL Normal 0.0-0.7 [facility] Comment on above: Performed By: #### A DIFF, LIPID, CBC, ANEU, BMP, GFR #### [place] [address] [place], [place] [address] Eosinophils/100 WBC (Bld) 0.0 % Normal 0.0-7.0 [facility] Comment on above: Performed By: #### A DIFF, LIPID, CBC, ANEU, BMP, GFR #### [address] [address] Lymphocyte, Absolute 0.4 10 3/mcL Low 0.9-4.3 [facility] Comment on above: Performed By: #### A DIFF, LIPID, CBC, ANEU, BMP, GFR #### [address] [address] Lymphocytes/100 WBC (Bld) 4.4 % Low 20.0-40.0 [facility] Comment on above: Performed By: #### A DIFF, LIPID, CBC, ANEU, BMP, GFR #### [address] [address] Monocyte, Absolute 0.3 10 3/mcL Normal 0.1-1.4 [facility] Comment on above: Performed By: #### A DIFF, LIPID, CBC, ANEU, BMP, GFR #### [address] [address] Monocytes/100 WBC (Bld) 3.8 % Normal 2.0-13.0 [facility] Comment on above: Performed By: #### A DIFF, LIPID, CBC, ANEU, BMP, GFR #### [address] [address] Neutrophils/100 WBC (Bld) 91.1 % High 50.0-75.0 [facility] Comment on above: Performed By: #### A DIFF, LIPID, CBC, ANEU, BMP, GFR #### [address] [address] .GFRon 01-21-2024 GFR Non- 76 ml/min/1.73sqm Normal [facility] Comment on above: Result Comment: GFR Population [...] A DIFF, LIPID, CBC, ANEU, BMP, GFR ####[address] [place], [place] [address] GFR 92 ml/min/1.73sqm Normal [facility] Comment on above: Result Comment: GFR Population [...] A DIFF, LIPID, CBC, ANEU, BMP, GFR ####[place] [place], [place] [address] .NEUABSon 01-21-2024 Neutrophil, Absolute 8.4 10 3/mcL High 2.3-8.1 [facility] Comment on above: Performed By: #### A DIFF, LIPID, CBC, ANEU, BMP, GFR ####[address] [place], [place] [address] .Urinalysis Microscopic (AO) on 01-21-2024 UA Bacteria 2+ /hpf Abnormal [facility] Comment on above: Performed By: #### U A, UAMICAO ####[place] [address] [place] [id number] UA RBC 0-5 Abnormal None Seen [facility] Comment on above: Performed By: #### U A, UAMICAO ####[facility] [place], [place] [address] UA Squam Epithelial 10-15 Abnormal None Seen [facility] Comment on above: Performed By: #### U A, UAMICAO ####[facility] [place], [place] [address] UA WBC LOADED Abnormal None Seen [facility] Comment on above: Performed By: #### U A, UAMICAO ####[facility] [place], [place] [address] A1Con 01-21-2024 Glucose [Mass/Vol] 157 mg/dL Normal [facility] Comment on above: Result Comment: Shakira mated Average Glucose calculated by equation ((28.7xA1C)-46.7) Estimated average glucose (eAG) is a calculated value from Hemoglobin A1C and is dermatology sales representative of the average blood glucose level in the last 2-3 month period. Normal range: less than 114 mg/dL Performed By: #### A 1C #### [facility] [address] [place], [place] [address] HbA1c (Bld) [Mass fraction] 7.1 % High 4.3-6.4 [facility] Comment on above: Performed By: #### A 1C #### [facility] [address] [place], [place] [address] BMPon 01-21-2024 BUN/Creatinine Ratio 18 ratio Normal 7-27 [facility] Comment on above: Performed By: #### A DIFF, LIPID, CBC, ANEU, BMP, GFR ####[facility] [place], [place] [address] Calcium [Mass/Vol] 8.8 mg/dL Normal 8.4-10.2 [facility] Comment on above: Performed By: #### A DIFF, LIPID, CBC, ANEU, BMP, GFR ####[place] [address] [place], [place] [address] Chloride [Moles/Vol] 105 mmol/L Normal 98-107 [facility] Comment on above: Performed By: #### A DIFF, LIPID, CBC, ANEU, BMP, GFR ####[address] [address] CO2 [Moles/Vol] 29 mmol/L Normal 23-31 [facility] Comment on above: Performed By: #### A DIFF, LIPID, CBC, ANEU, BMP, GFR ####[address] [address] Creatinine [Mass/Vol] 0.74 mg/dL Normal 0.55-1.02 [facility] Comment on above: Result Comment: Test ing performed on Siemens Dimension EXL analyzer using a modified kinetic Britany technique. Performed By: #### A DIFF, LIPID, CBC, ANEU, BMP, GFR ####Shashank [address] [address] Electrolyte Balance 8.0 mEq/L Normal 4.0-15.0 [facility] Comment on above: Performed By: #### A DIFF, LIPID, CBC, ANEU, BMP, GFR ####[address] [address] Glucose [Mass/Vol] 117 mg/dL High 83-110 [facility] Comment on above: Performed By: #### A DIFF, LIPID, CBC, ANEU, BMP, GFR ####[address] [address] Potassium [Moles/Vol] 4.7 mmol/L Normal 3.5-5.1 [facility] Comment on above: Performed By: #### A DIFF, LIPID, CBC, ANEU, BMP, GFR ####[address] [address] Sodium [Moles/Vol] 142 mmol/L Normal 136-145 [facility] Comment on above: Performed By: #### A DIFF, LIPID, CBC, ANEU, BMP, GFR ####[address] [address] Urea nitrogen [Mass/Vol] 13 mg/dL Normal 7-18 [facility] Comment on above: Performed By: #### A DIFF, LIPID, CBC, ANEU, BMP, GFR ####[address] [address] CBCon 01-21-2024 Erythrocyte distribution width (RBC) [Ratio] 16.9 % High 11.5-15.5 [facility] Comment on above: Performed By: #### A DIFF, LIPID, CBC, ANEU, BMP, GFR #### [address] [address] Hematocrit (Bld) [Volume fraction] 32.0 % Low 34.0-46.0 [facility] Comment on above: Performed By: #### A DIFF, LIPID, CBC, ANEU, BMP, GFR #### [address] [address] Hgb 10.3 G/dL Low 12.0-16.0 [facility] Comment on above: Performed By: #### A DIFF, LIPID, CBC, ANEU, BMP, GFR #### [address] [address] MCH (RBC) [Entitic mass] 27.2 pg Normal 27.0-33.0 [facility] Comment on above: Performed By: #### A DIFF, LIPID, CBC, ANEU, BMP, GFR #### [address] [address] MCHC 32.1 G/dL Normal 32.0-36.0 [facility] Comment on above: Performed By: #### A DIFF, LIPID, CBC, ANEU, BMP, GFR #### [address] [address] MCV (RBC) [Entitic vol] 84.8 fL Normal 80.0-99.0 [facility] Comment on above: Performed By: #### A DIFF, LIPID, CBC, ANEU, BMP, GFR #### [address] [address] Platelet 415 10 3/mcL Normal 150-450 [facility] Comment on above: Performed By: #### A DIFF, LIPID, CBC, ANEU, BMP, GFR #### [facility] [address] [place], [place] [address] Platelet mean volume (Bld) [Entitic vol] 7.7 fL Normal 6.6-10.5 [facility] Comment on above: Performed By: #### A DIFF, LIPID, CBC, ANEU, BMP, GFR #### [address] [place], [place] [address] RBC 3.77 10 6/mcL Low 4.10-5.30 [facility] Comment on above: Performed By: #### A DIFF, LIPID, CBC, ANEU, BMP, GFR #### [address] [place], [place] [address] WBC 9.2 10 3/mcL Normal 4.5-10.8 [facility] Comment on above: Performed By: #### A DIFF, LIPID, CBC, ANEU, BMP, GFR #### [address] [place], [place] [address] LABORATORYOrdered By: Germaine Travis on 01-21-2024 Blood Glucose Testing Reason Routine (01/21/24 12:26 PM) [facility] Work Phone: Glucose [Mass/Vol] 124 mg/dL High 82 - 115 mg/dL [facility] Work Phone: Blood Glucose Testing Reason Routine (01/21/24 7:56 AM) [facility] Work Phone: Glucose [Mass/Vol] 114 mg/dL Normal 82 - 115 mg/dL [facility] Work Phone: LABORATORYOrdered By: SYSTEM SYSTEM [...] 01-21-2024 Cholesterol [Mass/Vol] 114 mg/dL Normal 0-200 [facility] Comment on above: Result Comment: Chol esterol Reference Interval: Less than 200 Desirable 200-239 Borderline high risk 240 and above High risk Performed By: #### A DIFF, LIPID, CBC, ANEU, BMP, GFR ####[address] [place], [place] [address] Cholesterol in HDL [Mass/Vol] 42 mg/dL Normal 40-60 [facility] Comment on above: Performed By: #### A DIFF, LIPID, CBC, ANEU, BMP, GFR ####[address] [place], [place] [address] Cholesterol in LDL [Mass/Vol] 53 mg/dL Normal 0-130 [facility] Comment on above: Performed By: #### A DIFF, LIPID, CBC, ANEU, BMP, GFR ####[address] [place], [place] [address] Triglyceride [Mass/Vol] 97 mg/dL Normal 0-150 [facility] Comment on above: Result Comment: Trig lyceride Reference Interval: Less than 150 Normal 150-199 Borderline high risk 200-499 High risk 500 or higher Very high risk Performed By: #### A DIFF, LIPID, CBC, ANEU, BMP, GFR ####[address] [place], [place] [address] MRI BRAIN W/O CONTRASTon MRI BRAIN W/O CONTRAST ORIGINAL EXAMINATION: MRI OF THE BRAIN WITHOUT GJSSWVTB06/15/2024 11:27 am MR BRAIN W/O CONTRAST TECHNIQUE: [...] 11:45:49 AM Ordering Provider: ROMULO RAI Normal [facility] No Panel Informationon 01-20 Microscopic examination of blood, culture Culture has been received in lab and is no growth to date. Routine cultures are held for 5 days. [facility] Work Phone: UAon 01-21-2024 Color (U) Yellow Normal [facility] Comment on above: Performed By: #### U GONZALO Ureña ####[place] [id number] [address] Glucose (U) [Mass/Vol] mg/dL Abnormal Negative [facility] Comment on above: Performed By: #### U A, UAMICAO ####[address] [place] [address] Ketones Ql (U) 15 mg/dL Abnormal Negative [facility] Comment on above: Performed By: #### U A, UAMICAO ####[place] [address] UA Appear Slightly Cloudy Abnormal Clear [facility] Comment on above: Performed By: #### U A, UAMICAO ####[address] [place] [address] UA Blood Negative Normal Negative [facility] Comment on above: Performed By: #### U A, UAMICAO ####[place] [address] UA Leuk Est Small Abnormal Negative [facility] Comment on above: Performed By: #### U A, UAMICAO ####[place] [address] UA Nitrite Positive Abnormal Negative [facility] Comment on above: Performed By: #### U A, UAMICAO ####[id number] [place] [address] UA pH 5.0 Normal 5.0 - 8.0 [facility] Comment on above: Performed By: #### U A, UAMICAO ####[place] [address] UA Protein Negative Normal Negative [facility] Comment on above: Performed By: #### U A, UAMICAO ####[address] [place] [address] UA Spec Grav <=1.005 Abnormal 1.015-1.025 [facility] Comment on above: Performed By: #### U A, UAMICAO ####[id number] [place] [address] UA Specimen Type Clean Catch Normal [facility] Comment on above: Performed By: #### U A, UAMICAO ####[facility] [place], [place] [address] UA Urobilinogen 0.2 E.U./dL Normal 0.2-1.0 [facility] Comment on above: Performed By: #### U A, UAMICAO ####[place] [address] [place], [place] [address] Urobilinogen (U) [Mass/Vol] Negative Normal Negative [facility] Comment on above: Performed By: #### U A, UAMICAO ####[facility] [place], [place] [address] .Auto Diffon 01-20-2024 Basophil, Absolute 0.0 10 3/mcL Normal 0.0-0.2 [facility] Comment on above: Performed By: #### C MP, TROPHS, LIP, CBC, GFR, MDW, MG, ADIFF, ANEU ####[address] [place], [place] [address] Basophils/100 WBC (Bld) 0.2 % Normal 0.0-2.5 [facility] Comment on above: Performed By: #### C MP, TROPHS, LIP, CBC, GFR, MDW, MG, ADIFF, ANEU ####[facility] [place], [place] [address] Eosinophil, Absolute 0.0 10 3/mcL Normal 0.0-0.7 [facility] Comment on above: Performed By: #### C MP, TROPHS, LIP, CBC, GFR, MDW, MG, ADIFF, ANEU ####[facility] [place], [place] [address] Eosinophils/100 WBC (Bld) 0.1 % Normal 0.0-7.0 [facility] Comment on above: Performed By: #### C MP, TROPHS, LIP, CBC, GFR, MDW, MG, ADIFF, ANEU ####[facility] [place], [place] [address] Lymphocyte, Absolute 0.6 10 3/mcL Low 0.9-4.3 [facility] [facility] Comment on above: Performed By: #### C MP, TROPHS, LIP, CBC, GFR, MDW, MG, ADIFF, ANEU ####[address] [place], [place] [address] Lymphocytes/100 WBC (Bld) 3.3 % Low 20.0-40.0 [facility] Comment on above: Performed By: #### C MP, TROPHS, LIP, CBC, GFR, MDW, MG, ADIFF, ANEU ####[facility] [place], [place] [address] Monocyte, Absolute 0.7 10 3/mcL Normal 0.1-1.4 [facility] Comment on above: Performed By: #### C MP, TROPHS, LIP, CBC, GFR, MDW, MG, ADIFF, ANEU ####[address] [place], [place] [address] Monocytes/100 WBC (Bld) 4.1 % Normal 2.0-13.0 [facility] Comment on above: Performed By: #### C MP, TROPHS, LIP, CBC, GFR, MDW, MG, ADIFF, ANEU ####[address] [place], [place] [address] Neutrophils/100 WBC (Bld) 92.3 % High 50.0-75.0 [facility] Comment on above: Performed By: #### C MP, TROPHS, LIP, CBC, GFR, MDW, MG, ADIFF, ANEU ####[facility] [place], [place] [address] .GFRon 01-20-2024 GFR 91 ml/min/1.73sqm Normal [facility] Comment on above: Result Comment: GFR Population [...] LIP, CBC, GFR, MDW, MG, ADIFF, ANEU ####[address] [place], [place] [address] GFR Non- 75 ml/min/1.73sqm Normal [facility] Comment on above: Result Comment: GFR Population [...] LIP, CBC, GFR, MDW, MG, ADIFF, ANEU ####[address] [place], [place] [address] .MDWon 01-20-2024 Monocyte Distribution Width 20.42 High 0.00-20.00 [facility] Comment on above: Result Comment: For adults in ED, MDW>20.0 may be associated with a higher risk of sepsis during the first 12hrs of hospital admission The predictive value of MDW for identifying sepsis in patients with hematological abnormalities has not been established Performed By: #### C MP, TROPHS, LIP, CBC, GFR, MDW, MG, ADIFF, ANEU ####[address] [place], [place] [address] .NEUABSon 01-20-2024 Neutrophil, Absolute 16.1 10 3/mcL High 2.3-8.1 [facility] Comment on above: Performed By: #### C MP, TROPHS, LIP, CBC, GFR, MDW, MG, ADIFF, ANEU ####[address] [address] CBCon 01-20-2024 Erythrocyte distribution width (RBC) [Ratio] 16.8 % High 11.5-15.5 [facility] Comment on above: Performed By: #### C MP, TROPHS, LIP, CBC, GFR, MDW, MG, ADIFF, ANEU ####[place] [address] Hematocrit (Bld) [Volume fraction] 38.3 % Normal 34.0-46.0 [facility] Comment on above: Performed By: #### C MP, TROPHS, LIP, CBC, GFR, MDW, MG, ADIFF, ANEU ####[place] [address] Hgb 12.1 G/dL Normal 12.0-16.0 [facility] Comment on above: Performed By: #### C MP, TROPHS, LIP, CBC, GFR, MDW, MG, ADIFF, ANEU ####[address] [address] MCH (RBC) [Entitic mass] 26.8 pg Low 27.0-33.0 [facility] Comment on above: Performed By: #### C MP, TROPHS, LIP, CBC, GFR, MDW, MG, ADIFF, ANEU ####[place] [address] MCHC 31.6 G/dL Low 32.0-36.0 [facility] Comment on above: Performed By: #### C MP, TROPHS, LIP, CBC, GFR, MDW, MG, ADIFF, ANEU ####[place] [id number] MCV (RBC) [Entitic vol] 84.9 fL Normal 80.0-99.0 [facility] Comment on above: Performed By: #### C MP, TROPHS, LIP, CBC, GFR, MDW, MG, ADIFF, ANEU ####[address] [place], [place] [address] Platelet 465 10 3/mcL High 150-450 [facility] Comment on above: Performed By: #### C MP, TROPHS, LIP, CBC, GFR, MDW, MG, ADIFF, ANEU ####[address] [place], [place] [address] Platelet mean volume (Bld) [Entitic vol] 7.9 fL Normal 6.6-10.5 [facility] Comment on above: Performed By: #### C MP, TROPHS, LIP, CBC, GFR, MDW, MG, ADIFF, ANEU ####[address] [place], [place] [address] RBC 4.51 10 6/mcL Normal 4.10-5.30 [facility] Comment on above: Performed By: #### C MP, TROPHS, LIP, CBC, GFR, MDW, MG, ADIFF, ANEU ####[place] [place], [place] [address] WBC 17.5 10 3/mcL High 4.5-10.8 [facility] Comment on above: Performed By: #### C MP, TROPHS, LIP, CBC, GFR, MDW, MG, ADIFF, ANEU ####[address] [place], [place] [address] CMPon 01-20-2024 Albumin Level 3.5 G/dL Normal 3.4-4.8 [facility] Comment on above: Order Comment: 01/19 21:34:04 EST hemolyzed; called to Jacqueline. EH Performed By: #### C MP, TROPHS, LIP, CBC, GFR, MDW, MG, ADIFF, ANEU ####[address] [place], [place] [address] Albumin/Globulin [Mass ratio] 1.3 {ratio} Normal 1.1-2.5 [facility] Comment on above: Order Comment: 01/19 21:34:04 EST hemolyzed; called to Jacqueline. EH Performed By: #### C MP, TROPHS, LIP, CBC, GFR, MDW, MG, ADIFF, ANEU ####[facility] [place], [place] [address] ALP [Catalytic activity/Vol] 78 U/L Normal 40-135 [facility] Comment on above: Order Comment: 01/19 21:34:04 EST hemolyzed; called to Jacqueline. EH Performed By: #### C MP, TROPHS, LIP, CBC, GFR, MDW, MG, ADIFF, ANEU ####[facility] [place], [place] [address] ALT [Catalytic activity/Vol] 20 U/L Normal 14-59 [facility] Comment on above: Order Comment: 01/19 21:34:04 EST hemolyzed; called to Jacqueline. EH Performed By: #### C MP, TROPHS, LIP, CBC, GFR, MDW, MG, ADIFF, ANEU ####[address] [place], [place] [address] AST [Catalytic activity/Vol] 14 U/L Normal 10-40 [facility] Comment on above: Order Comment: 01/19 21:34:04 EST hemolyzed; called to Jacqueline. EH Performed By: #### C MP, TROPHS, LIP, CBC, GFR, MDW, MG, ADIFF, ANEU ####[facility] [place], [place] [address] Bili Total 0.8 mg/dL Normal 0.2-1.0 [facility] Comment on above: Order Comment: 01/19 21:34:04 EST hemolyzed; called to Jacqueline. EH Result Comment: Use of this assay is not recommended for patients undergoing treatment with eltrombopag due to the potential for falsely elevated results. Performed By: #### C MP, TROPHS, LIP, CBC, GFR, MDW, MG, ADIFF, ANEU ####[facility] [place], [place] [address] BUN/Creatinine Ratio 19 ratio Normal 7-27 [facility] Comment on above: Order Comment: 01/19 21:34:04 EST hemolyzed; called to Jacqueline. EH Performed By: #### C MP, TROPHS, LIP, CBC, GFR, MDW, MG, ADIFF, ANEU ####[address] [place], [place] [address] Calcium [Mass/Vol] 9.2 mg/dL Normal 8.4-10.2 [facility] Comment on above: Order Comment: 01/19 21:34:04 EST hemolyzed; called to Jacqueline. EH Performed By: #### C MP, TROPHS, LIP, CBC, GFR, MDW, MG, ADIFF, ANEU ####[address] [place], [place] [address] Chloride [Moles/Vol] 106 mmol/L Normal 98-107 [facility] Comment on above: Order Comment: 01/19 21:34:04 EST hemolyzed; called to Jacqueline. EH Performed By: #### C MP, TROPHS, LIP, CBC, GFR, MDW, MG, ADIFF, ANEU ####[address] [place], [place] [address] CO2 [Moles/Vol] 27 mmol/L Normal 23-31 [facility] Comment on above: Order Comment: 01/19 21:34:04 EST hemolyzed; called to Jacqueline. EH Performed By: #### C MP, TROPHS, LIP, CBC, GFR, MDW, MG, ADIFF, ANEU ####[address] [place], [place] [address] Creatinine [Mass/Vol] 0.75 mg/dL Normal 0.55-1.02 [facility] Comment on above: Order Comment: 01/19 21:34:04 EST hemolyzed; called to Jacqueline. EH Result Comment: Test ing performed on Siemens Dimension EXL analyzer using a modified kinetic Britany technique. Performed By: #### C MP, TROPHS, LIP, CBC, GFR, MDW, MG, ADIFF, ANEU ####[address] [place], [place] [address] Electrolyte Balance 10.0 mEq/L Normal 4.0-15.0 [facility] Comment on above: Order Comment: 01/19 21:34:04 EST hemolyzed; called to Jacqueline. EH Performed By: #### C MP, TROPHS, LIP, CBC, GFR, MDW, MG, ADIFF, ANEU ####[address] [place], [place] [address] Globulin 2.7 G/dL Normal [facility] Comment on above: Order Comment: 01/19 21:34:04 EST hemolyzed; called to Jacqueline. EH Performed By: #### C MP, TROPHS, LIP, CBC, GFR, MDW, MG, ADIFF, ANEU ####[address] [place], [place] [address] Glucose [Mass/Vol] 191 mg/dL High 83-110 [facility] Comment on above: Order Comment: 01/19 21:34:04 EST hemolyzed; called to Jacqueline. EH Performed By: #### C MP, TROPHS, LIP, CBC, GFR, MDW, MG, ADIFF, ANEU ####[address] [place], [place] [address] Potassium [Moles/Vol] 4.0 mmol/L Normal 3.5-5.1 [facility] Comment on above: Order Comment: 01/19 21:34:04 EST hemolyzed; called to Jacqueline. EH Performed By: #### C MP, TROPHS, LIP, CBC, GFR, MDW, MG, ADIFF, ANEU ####[address] [place], [place] [address] Sodium [Moles/Vol] 143 mmol/L Normal 136-145 [facility] Comment on above: Order Comment: 01/19 21:34:04 EST hemolyzed; called to Jacqueline. EH Performed By: #### C MP, TROPHS, LIP, CBC, GFR, MDW, MG, ADIFF, ANEU ####[address] [place], [place] [address] Total Protein 6.2 G/dL Low 6.4-8.2 [facility] Comment on above: Order Comment: 01/19 21:34:04 EST hemolyzed; called to Jacqueline. EH Performed By: #### C MP, TROPHS, LIP, CBC, GFR, MDW, MG, ADIFF, ANEU ####[address] [place], [place] [address] Urea nitrogen [Mass/Vol] 14 mg/dL Normal 7-18 [facility] Comment on above: Order Comment: 01/19 21:34:04 EST hemolyzed; called to Jacqueline. EH Performed By: #### C MP, TROPHS, LIP, CBC, GFR, MDW, MG, ADIFF, ANEU ####[address] [place], [place] [address] CT ANGIOGRAPHY HEAD W/ CONTR Igor 01-20-2024 [...] Date: 01/20/2024 11:16:50 PM Ordering Provider: SHAWN Ambriz [facility] CT ANGIOGRAPHY NECK W/CONTRA STon 01-20-2024 CT ANGIOGRAPHY NECK W/CONTRAST ORIGINAL EXAMINATION: [...] 01/20/2024 11:16:50 PM Ordering Provider: SHAWN LEE [facility] CT HEAD OR BRAIN W/O CONTRAS Ton [...] 01/20/2024 10:13:56 PM Ordering Provider: SHAWN LEE [facility] LABORATORYOrdered By: SYSTEM SYSTEM on 01-20-2024 Albumin [...] calculated value from Hemoglobin A1C and is dermatology sales representative of the average blood glucose level [...] ng/L Male: 0-76 ng/L Testing performed on [employer] using a homogeneous sandwich chemiluminescent immunoassay based on [employer] technology. WBC (Bld) [#/Vol] 17.5 103/mcL High 4.5 - 10.8 10^3/mcL AO Workflow SS LIPon 01-20-2024 Lipase Level 27 U/L Normal 16-77 [facility] Comment on above: Performed By: #### C MP, TROPHS, LIP, CBC, GFR, MDW, MG, ADIFF, ANEU ####[place] [address] MGon 01-20-2024 Magnesium [Mass/Vol] 1.7 mg/dL Low 1.8-2.4 [facility] Comment on above: Performed By: #### C MARIE, GLADISS, LIP, CBC, GFR, MDW, MG, JUDIIFF, ANEU ####[address] [place], [place] [address] TROPHSon 01-20-2024 High Sensitivity Troponin I 4 ng/L Normal 0-51 [facility] Comment on above: Result Comment: High Sensitive Troponin I Reference Ranges: Female: 0-51 ng/L Male: 0-76 ng/L Testing performed on [employer] using a homogeneous sandwich chemiluminescent immunoassay based on [employer] technology. Performed By: #### C MP, GLADISS, LIP, CBC, GFR, MDW, MG, MACIEL, ANEU ####[address] [place], [place] [address] XR CHEST 1 VIEWon 01-20-2024 XR CHEST [...] Date: 01/20/2024 9:52:42 PM Ordering Provider: SHAWN LEE Normal [facility] CNNURSEon 12-27-2023 CNNURSE Nurse Visit (FAMPWS) BRITNEY CANADA ([id number]) 1945 F Date Time Provider Department 12/27/23 1:15 PM [place] NURSE JOE During your visit today, we [...] Encounter Status:Closed by AGUEDA SABILLON [facility] Nurse Visit (FAMPWS) BRITNEY CANADA ([id number]) 1945 F Date Time Provider Department 11/29/23 1:15 PM [place] NURSE FAMPWS During your visit today, we [...] Encounter Status:Closed by AGUEDA SABILLON on 11/29/23 [facility] 11-01-2023 [facility] Nurse Visit (FAMPWS) BRITNEY CANADA ([id number]) 1945 F Date Time Provider Department 11/01/23 1:15 PM [place] NURSE FAMPWS During your visit today, we [...] Encounter Status:Closed by AGUEDA SABILLON on 11/01/23 [facility] CNOVon 10-27-2023 CNOV Office Visit (INTMWS ) MIGUELBRITNEY REBOLLAR ([id number]) 1945 F Date Time Provider Department 10/27/23 10:00 AM ASTRID MUSE INTMWS During your visit today, we recorded the following information about you: Pulse Respiration Blood pressure Weight 60/minute 16/minute 124/68 84.4 kg 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 Goes to [facility] yearly for routine exam. Last [...] Screening Neve (more content not included)... Normal [facility] Basic metabolic 2000 panelon 10-26-2023 Anion gap [Moles/Vol] 10 mmol/L Normal 8-15 [facility] Comment on above: Order Comment: Speci men Type: BLOOD SPECIMENOrdering Facility: [facility] Address: [address] [place] [address] Performed By: #### 2 4321-2 ####[facility] MILLTOWNCLIA [id number] [place] [address] [place] Calcium [Mass/Vol] 9.7 mg/dL Normal 8.5-10.2 [facility] Comment on above: Order Comment: Speci men Type: BLOOD SPECIMENOrdering Facility: [facility] Address: [address] [place] [address] Performed By: #### 2 4321-2 ####[facility] [id number] [place] [address] [place] Chloride [Moles/Vol] 104 mmol/L Normal 98-107 [facility] Comment on above: Order Comment: Speci men Type: BLOOD SPECIMENOrdering Facility: [facility] Address: [address] [place] [address] Performed By: #### 2 4321-2 ####[facility] SUKHJINDER MILLTOWNCLIA [id number] [place] [address] [place] CO2 [Moles/Vol] 24 mmol/L Normal 22-30 [facility] Comment on above: Order Comment: Speci men Type: BLOOD SPECIMENOrdering Facility: [facility] Address: [address] [place] [address] Performed By: #### 2 4321-2 ####[facility] MILLTOWNCLIA [id number] [place] [address] [place] Creatinine [Mass/Vol] 0.62 mg/dL Normal 0.58-0.96 [facility] Comment on above: Order Comment: Kamla clark Type: BLOOD SPECIMENOrdering Facility: [facility] Address: [address] [place] [address] Performed By: #### 2 4321-2 ####[facility] [id number] [place] [address] [facility] Creatinine and Glomerular filtration rate.predicted panel (S/P/Bld) 92 mL/min/1.73m??? Normal >=60 [facility] Comment on above: Order Comment: Kamla clark Type: BLOOD SPECIMENOrdering Facility: [facility] Address: [address] [place] [address] Result Comment: Shakira mated Glomerular Filtration Rate [...] Performed By: #### 2 4321-2 ####[facility] [id number] [place] [address] [place] Glucose [Mass/Vol] 140 mg/dL High 74-99 [facility] Comment on above: Order Comment: Kamla clark Type: BLOOD SPECIMENOrdering Facility: [facility] Address: [address] [place] [address] Result Comment: The [place] Diabetes Association (ADA) provides guidance for cutoff [...] Standards of Medical Care in Diabetes 2016, [place] Diabetes Association. Diabetes Care. 2016.39(Suppl 1). Performed By: #### 2 4321-2 ####[facility] [id number] [place] [address] [place] Potassium [Moles/Vol] 4.4 mmol/L Normal 3.7-5.1 [facility] Comment on above: Order Comment: Speci men Type: BLOOD SPECIMENOrdering Facility: [facility] Address: [address] [place] [address] Performed By: #### 2 4321-2 ####[facility] [id number] [place] [address] [place] Sodium [Moles/Vol] 138 mmol/L Normal 136-144 [facility] Comment on above: Order Comment: Speci men Type: BLOOD SPECIMENOrdering Facility: [facility] Address: [address] [place] [address] Performed By: #### 2 4321-2 ####[facility] [id number] [place] [address] [place] Urea nitrogen [Mass/Vol] 14 mg/dL Normal 7-21 [facility] Comment on above: Order Comment: Speci men Type: BLOOD SPECIMENOrdering Facility: [facility] Address: [address] [place] [address] Performed By: #### 2 4321-2 ####[facility] [id number] [place] [address] [place] CBC panel Auto (Bld)on 10-25 Erythrocyte distribution width (RBC) [Ratio] 15.5 % High 11.5-15.0 [facility] Comment on above: Order Comment: Speci men Type: BLOOD SPECIMENOrdering Facility: [facility] Address: [address] [place] [address] Performed By: #### 5 8410-2 ####[facility] THEODORA [id number] [address] [place] Hematocrit (Bld) [Volume fraction] 36.6 % Normal 36.0-46.0 [facility] Comment on above: Order Comment: Speci men Type: BLOOD SPECIMENOrdering Facility: [facility] Address: [address] [place] [address] Performed By: #### 5 8410-2 ####[facility] [id number] [place] [address] [place] Hemoglobin (Bld) [Mass/Vol] 11.4 g/dL Low 11.5-15.5 [facility] Comment on above: Order Comment: Speci men Type: BLOOD SPECIMENOrdering Facility: [facility] Address: [address] [place] [address] Performed By: #### 5 8410-2 ####[facility]ALTYA [id number] [place] [address] [place] MCH (RBC) [Entitic mass] 26.5 pg Normal 26.0-34.0 [facility] Comment on above: Order Comment: Speci men Type: BLOOD SPECIMENOrdering Facility: [facility] Address: [address] [place] [address] Performed By: #### 5 8410-2 ####[facility] [id number] [place] [address] [place] MCHC (RBC) [Mass/Vol] 31.1 g/dL Normal 30.5-36.0 [facility] Comment on above: Order Comment: Speci men Type: BLOOD SPECIMENOrdering Facility: [facility] Address: [address] [place] [address] Performed By: #### 5 8410-2 ####[facility]AY[facility]ANNESL[facility] [id number] [place] [address] [place] MCV (RBC) [Entitic vol] 85.1 fL Normal 80.0-100.0 [facility] Comment on above: Order Comment: Speci men Type: BLOOD SPECIMENOrdering Facility: [facility] Address: [address] [place] [address] Performed By: #### 5 8410-2 ####[facility] [id number] [place] [address] [place] Nucleated RBC (Bld) [#/Vol] 10*3/uL Normal <0.01 [facility] Comment on above: Order Comment: Speci men Type: BLOOD SPECIMENOrdering Facility: [facility] Address: [address] [place] [address] Performed By: #### 5 8410-2 ####[facility] [id number] [place] [address] [place] Platelet mean volume (Bld) [Entitic vol] 9.4 fL Normal 9.0-12.7 [facility] Comment on above: Order Comment: Speci men Type: BLOOD SPECIMENOrdering Facility: [facility] Address: [address] [place] [address] Performed By: #### 5 8410-2 ####[facility] [id number] [place] [address] [place] Platelets (Bld) [#/Vol] 481 10*3/uL High 150-400 [facility] Comment on above: Order Comment: Speci men Type: BLOOD SPECIMENOrdering Facility: [facility] Address: [address] [place] [address] Performed By: #### 5 8410-2 ####[facility] [id number] [place] [address] [place] RBC (Bld) [#/Vol] 4.30 10*6/uL Normal 3.90-5.20 [facility] Comment on above: Order Comment: Speci men Type: BLOOD SPECIMENOrdering Facility: [facility] Address: [address] [place] [address] Performed By: #### 5 8410-2 ####[facility] [id number] [place] [address] [place] WBC (Bld) [#/Vol] 7.84 10*3/uL Normal 3.70-11.00 [facility] Comment on above: Order Comment: Speci men Type: BLOOD SPECIMENOrdering Facility: [facility] Address: [address] [place] [address] Performed By: #### 5 8410-2 ####[facility] [id number] [place] [address] [place] HbA1c (Bld)on 10-26-2023 Average glucose Estimated from glycated hemoglobin (Bld) [Mass/Vol] 174 mg/dL Normal [facility] Comment on above: Order Comment: Barringtoni men Type: BLOOD SPECIMENOrdering Facility: [facility] Address: [address] [place] [address] Result Comment: eAG: (Estimated average glucose) is a calculated value from HgbA1c and is dermatology sales representative of the average blood glucose level in the last 2-3 month period. Performed By: #### 5 5454-3 ####[facility] LABCLIA [id number] [place] [address] [place] HbA1c (Bld) [Mass fraction] 7.7 % High 4.3-5.6 [facility] Comment on above: Order Comment: Barringtoni men Type: BLOOD SPECIMENOrdering Facility: [facility] Address: [address] [place] [address] Result Comment: [place] Diabetes Association guidelines indicate that patients with HgbA1c in the range 5.7-6.4% are at increased risk for development of diabetes, and intervention by lifestyle modification may be beneficial. HgbA1c greater or equal to 6.5% is considered diagnostic of diabetes. Performed By: #### 5 5454-3 ####[facility] LABCLIA [id number] [place] [address] [place] TSH SerPl-aCncon 10-26-2023 TSH Qn 1.770 m[IU]/L Normal 0.270-4.200 [facility] Comment on above: Order Comment: Speci men Type: BLOOD SPECIMENOrdering Facility: [facility] Address: [address] [place] [address] Performed By: #### 3 016-3 ####[facility] LABCLIA [id number] [address] [place] Angela [facility] BRITNEY [place]DA ([id number]) 1945 F Date Time Provider Department 10/22/23 [...] [E03.9] Order(s):COMPLETE BLOOD COUNT [SQCBC] Order #: [id number] FUTURE BASIC METABOLIC PANEL [SQBMP] Order #: [id number] FUTURE HEMOGLOBIN A1C [BPGRV8T] Order #: [id number] FUTURE THYROID STIMULATING HORMONE [SQTSH] Order #: [id number] FUTURE Prescriptions as of 10/25/2023 - empagliflozin [...] Encounter Status:Closed by CHANTALE ALVES on 10/25/23 [facility] Nurse Visit (FAMPWS) BRITNEY CANADA ([id number]) 1945 F Date Time Provider Department 10/04/23 1:15 PM [facility] visit today, we recorded the [...] Status:Closed by AGUEDA SABILLON on 10/04/23 Normal [facility] CBC W Auto Differential pane l (Bld)on 09-03-2022 Basophils (Bld) [#/Vol] 0.07 10*3/uL <0.11 k/uL [facility] Basophils/100 WBC (Bld) 0.6 % [facility] Differential cell count method Nom (Bld) Auto [facility] Eosinophils (Bld) [#/Vol] 0.05 10*3/uL <0.46 k/uL [facility] Eosinophils/100 WBC (Bld) 0.4 % [facility] Erythrocyte distribution width (RBC) [Ratio] 14.0 % 11.5 - 15.0 % [facility] Hematocrit (Bld) [Volume fraction] 41.5 % 36.0 - 46.0 % [facility] Hemoglobin (Bld) [Mass/Vol] 12.9 g/dL 11.5 - 15.5 g/dL [facility] Immature granulocytes (Bld) [#/Vol] 0.04 10*3/uL <0.10 k/uL [facility] Immature granulocytes/100 WBC (Bld) 0.3 % [facility] Lymphocytes (Bld) [#/Vol] 3.06 10*3/uL 1.00 - 4.00 k/uL [facility] [facility] Lymphocytes/100 WBC (Bld) 24.7 % [facility] MCH (RBC) [Entitic mass] 28.7 pg 26.0 - 34.[address] [facility] MCHC (RBC) [Mass/Vol] 31.1 g/dL 30.5 - 36.0 g/dL [facility] MCV (RBC) [Entitic vol] 92.2 fL 80.0 - 100.[address] [facility] Monocytes (Bld) [#/Vol] 0.82 10*3/uL <0.87 k/uL [facility] Monocytes/100 WBC (Bld) 6.6 % [facility] Neutrophils (Bld) [#/Vol] 8.37 10*3/uL High 1.45 - 7.50 k/uL [facility] Neutrophils/100 WBC (Bld) 67.4 % [facility] Nucleated RBC (Bld) [#/Vol] <0.01 k/uL [facility] Nucleated RBC/100 WBC (Bld) [Ratio] 0.0 /[address] [facility] Platelet mean volume (Bld) [Entitic vol] 10.5 fL 9.0 - 12.[address] [facility] Platelets (Bld) [#/Vol] 519 10*3/uL High 150 - 400 k/uL [facility] RBC (Bld) [#/Vol] 4.50 10*6/uL 3.90 - 5.2 0 m/uL [facility] WBC (Bld) [#/Vol] 12.41 10*3/uL High 3.70 - 11 .00 k/uL [facility] Absolute lymphocyte countOrd ered By: Dr. Patiño on 08-28-2022 Lymphocytes Auto (Unsp spec) [#/Vol] 1.81 10*3/uL 0.83-4.51 [facility] Basophil percentageOrdered B y: Dr. Patiño on 08-28-2022 Basophils/100 WBC (Bld) 0.4 % 0-1 [facility] Bilirubin [Mass/Vol] 0.80 mg/dL 0.20-1.00 [facility] Comment on above: For patients on eltr ombopag therapy, use of Dimension [place] TBIL is not recommended. Chloride [Moles/Vol] 104 mmol/L 98-107 [facility] Eosinophils/100 WBC (Bld) 0.7 % 0-5 [facility] Glucose [Mass/Vol] 203 mg/dL 74-106 [facility] Comment on above: Glucose result great er than or equal to 200 mg/dLsuggests DIABETES MELLITUS per A.D.A. criteria. Neutrophils (Bld) [#/Vol] 7.2 10*3/uL 2.0-7.7 [facility] Neutrophils/100 WBC (Bld) 73.5 % 47-70 [facility] Potassium [Moles/Vol] 3.7 mmol/L 3.5-5.1 [facility] Protein [Mass/Vol] 6.6 g/dL 6.4-8.2 [facility] Sodium [Moles/Vol] 136 mmol/L 136-145 [facility] WBC (Bld) [#/Vol] 9.8 10*3/uL 4.4-11.0 [facility] Blood erythrocytes count (nu mber/volume)Ordered By: Dr. Patiño on 08-28-2022 RBC (Bld) [#/Vol] 4.06 10*6/uL 4.2-5.4 [facility] Blood hemoglobin measurement (mass/volume)Ordered By: Dr. Patiño on 08-28-2022 Hemoglobin (Bld) [Mass/Vol] 11.8 g/dL 12.0-15.0 [facility] Blood lymphocytes/100 leukoc ytesOrdered By: Dr. Patiño on 08-28-2022 Lymphocytes/100 WBC (Bld) 18.5 % 19-41 [facility] Blood monocytes/100 leukocyt esOrdered By: Dr. Patiño on 08-28-2022 Monocytes/100 WBC (Bld) 6.5 % 0-10 [facility] Blood platelet mean volumeOr dered By: Dr. Patiño on 08-28-2022 Platelet mean volume (Bld) [Entitic vol] 9.8 fL 6.2-12.0 [facility] Determination of erythrocyte mean corpuscular volume (MCV)Ordered By: Dr. Patiño on 08-28-2022 MCV (RBC) [Entitic vol] 88.9 fL 81-99 [facility] Glucose Glucometer (BldC) [M ass/Vol]Ordered By: Dr. Gregg on 08-28-2022 Glucose [Mass/Vol] 245 mg/dL 74-106 [facility] Comment on above: MANAGEMENT OF PATIEN T CARE PER NURSING PROTOCOL Hematocrit Auto (Bld) [Volum e fraction]Ordered By: Dr. Patiño on 08-28-2022 Hematocrit (Bld) [Volume fraction] 36.1 % 37-47 [facility] Laboratory - Chemistry and C hemistry - challengeOrdered By: Dr. Patiño on 08-28-2022 ALP [Catalytic activity/Vol] 84 U/L 45-117 [facility] ALT [Catalytic activity/Vol] 21 U/L 13-56 [facility] CO2 [Moles/Vol] 25.0 mmol/L 21.0-32.0 [facility] Globulin (S) [Mass/Vol] 3.7 g/dL 2.2-4.2 [facility] Urea nitrogen/Creatinine [Mass ratio] 21.9 mg/mg 10-20 [facility] Laboratory - Hematology and Cell countsOrdered By: Dr. Patiño on 08-28-2022 Erythrocyte distribution width (RBC) [Entitic vol] 44.4 fL 35.1-43.9 [facility] Erythrocyte distribution width (RBC) [Ratio] 13.6 % 11.6-14.6 [facility] Immature granulocytes/100 WBC (Bld) 0.400 % 0.0-0.9 [facility] Comment on above: IG% - Immature Granu locytes (promyelocytes, myelocytes and metamyelocytes) > 1% indicates that a LEFT SHIFT is Present. MCH (RBC) [Entitic mass] 29.1 pg 27.0-32.0 [facility] Nucleated RBC/100 WBC (Bld) [Ratio] 0 % 0-5 [facility] MCHC Auto (RBC) [Mass/Vol]Or dered By: Dr. Patiño on 08-28-2022 MCHC (RBC) [Mass/Vol] 32.7 g/dL 32-36 [facility] No Panel InformationOrdered By: Dr. Patiño on 08-28-2022 Estimated Creatinine Clearance Calc 38.44 ml/min [facility] Estimated GFR (MDRD) Amer 108 mL/min >60 [facility] Comment on above: GFR Calc Estimated GFR (MDRD) Non-Af Amer 89 mL/min >60 [facility] Comment on above: Non- GFR Calc Platelets bldOrdered By: Dr. Patiño on 08-28-2022 Platelets (Bld) [#/Vol] 431 10*3/uL 150-450 [facility] Serum or plasma albumin ciera urement (mass/volume)Ordered By: Dr. Patiño on 08-28-2022 Albumin [Mass/Vol] 2.9 g/dL 3.2-5.0 [facility] Serum or plasma albumin/glob ulin mass ratioOrdered By: Dr. Patiño on 08-28-2022 Albumin/Globulin [Mass ratio] 0.8 {ratio} 0.9-2.4 [facility] Serum or plasma calcium ciera urement (mass/volume)Ordered By: Dr. Patiño on 08-28-2022 Calcium [Mass/Vol] 9.2 mg/dL 8.5-10.1 [facility] Serum or plasma creatinine m easurement (mass/volume)Ordered By: Dr. Patiño on 08-28-2022 Creatinine [Mass/Vol] 0.68 mg/dL 0.55-1.02 [facility] Comment on above: The validity of the calculated GFR & GFRAA in patients over 70 years has not been determined. Clinical correlation is essential. Serum or plasma urea nitroge n measurement (mass/volume)Ordered By: Dr. Patiño on 08-28-2022 Urea nitrogen [Mass/Vol] 15 mg/dL 7-18 [facility] Thin prep Papanicolaou smear with manual screeningOrdered By: Dr. Patiño on 08-28-2022 Thin prep Papanicolaou smear with manual screening 19 U/L 15-37 [facility] Thin prep Papanicolaou smear with manual screening 7 5-15 [facility] Basophil percentageOrdered B y: Dr. Patiño on 08-26-2022 Cholesterol [Mass/Vol] 112 mg/dL <200 [facility] Comment on above: <200 mg/dL Desirable 200-240 mg/dL Borderline >240 mg/dL High Risk Triglyceride [Mass/Vol] 112 mg/dL <199 [facility] Comment on above: The drugs N-Acetylcy steine and Metamizole may falsely depress this assay.Serum Triglycerides Reference Interval Normal <150 mg/dL Borderline high 150 - 199 mg/dL High 200 - 499 mg/dL Very High > or = 500 mg/dL Basophil percentage 10-25 SEEN /hpf 0-5 [facility] Bilirubin Test strip Ql (U)O rdered By: Dr. Patiño on 08-26-2022 Bilirubin Ql (U) Negative Negative [facility] Culture, urineOrdered By: Ivet Patiño on 08-26-2022 Bacteria identified Cx Nom (U) Escherichia coli [facility] Ketones Test strip Ql (U)Ord ered By: Dr. Patiño on 08-26-2022 Ketones Ql (U) Negative Negative [facility] Mucus LM Ql (Urine sed)Order ed By: Dr. Patiño on 08-26-2022 Mucus Ql (Urine sed) 0 SEEN /hpf [facility] Nitrite Test strip Ql (U)Ord ered By: Dr. Patiño on 08-26-2022 Nitrite Ql (U) Positive Negative [facility] No Panel InformationOrdered By: Dr. Patiño on 08-26-2022 Thyroid Stimulating Hormone (TSH) 1.47 uIU/mL 0.358-3.74 [facility] Protein Test strip Ql (U)Ord ered By: Dr. Patiño on 08-26-2022 Protein Ql (U) 30 mg/dl Negative [facility] Serum or plasma cholesterol in HDL measurement (mass/volume)Ordered By: Dr. Patiño on 08-26-2022 Cholesterol in HDL [Mass/Vol] 37 mg/dL >40 [facility] Comment on above: The drugs N-Acetylcy steine and Metamizole may falsely depress this assay. Reference Range HDL <40 mg/dL Low HDL Cholesterol HDL >or= 60 mg/dL High HDL Cholesterol Serum or plasma cholesterol in VLDL measurement (mass/volume)Ordered By: Dr. Patiño on 08-26-2022 Cholesterol in VLDL [Mass/Vol] 22 mg/dL 5-40 [facility] Serum or plasma low density lipoprotein (LDL) cholesterol measurement (mass/volume)Ordered By: Dr. Patiño on 08-26-2022 Cholesterol in LDL [Mass/Vol] 53 mg/dL 0-130 [facility] Squamous epithelial cells de tection in urine sediment by light microscopyOrdered By: Dr. Patiño on 08-26-2022 Epithelial cells.squamous LM Ql (Urine sed) 0 SEEN /hpf 5-10 [facility] Urine blood detectionOrdered By: Dr. Patiño on 08-26-2022 RBC Ql (U) 10 /ul Negative [facility] RBC Ql (U) 0-5 SEEN /hpf 0-5 [facility] Urine clarityOrdered By: Dr. Patiño on 08-26-2022 Clarity (U) Clear Clear [facility] Urine color determinationOrd ered By: Dr. Patiño on 08-26-2022 Color (U) Yellow Yellow [facility] Urine glucose detectionOrder ed By: Dr. Patiño on 08-26-2022 Glucose Ql (U) 250 mg/dl Normal [facility] Urine leukocyte esterase det ection by dipstickOrdered By: Dr. Patiño on 08-26-2022 Leukocyte esterase Test strip Ql (U) 500 /ul Negative [facility] Urine pHOrdered By: Dr. Hendrix ce on 08-26-2022 pH (U) 5.0 [pH] 5.0 - 8.0 [facility] Urine sediment bacteria coun t by microscopy (number/high power field)Ordered By: Dr. Patiño on 08-26-2022 Bacteria LM.HPF (Urine sed) [#/Area] 2 /[HPF] None Seen [facility] Urine specific gravity measu rementOrdered By: Dr. Patiño on 08-26-2022 Specific gravity (U) [Rel density] 1.010 1.002-1.030 [facility] Urobilinogen Auto test strip Ql (U)Ordered By: Dr. Patiño on 08-26-2022 Urobilinogen Ql (U) Normal mg/dl Normal [facility] Absolute lymphocyte countOrd ered By: Dr. Lew on 08-25-2022 Lymphocytes Auto (Unsp spec) [#/Vol] 3.34 10*3/uL 0.83-4.51 [facility] Basophil percentageOrdered B y: Dr. Lew on 08-25-2022 Basophils/100 WBC (Bld) 0.4 % 0-1 [facility] Chloride [Moles/Vol] 101 mmol/L 98-107 [facility] Eosinophils/100 WBC (Bld) 0.2 % 0-5 [facility] Glucose [Mass/Vol] 334 mg/dL 74-106 [facility] Comment on above: Glucose result great er than or equal to 200 mg/dLsuggests DIABETES MELLITUS per A.D.A. criteria. Neutrophils (Bld) [#/Vol] 9.7 10*3/uL 2.0-7.7 [facility] Neutrophils/100 WBC (Bld) 68.9 % 47-70 [facility] Potassium [Moles/Vol] 3.9 mmol/L 3.5-5.1 [facility] Sodium [Moles/Vol] 134 mmol/L 136-145 [facility] WBC (Bld) [#/Vol] 14.1 10*3/uL 4.4-11.0 [facility] Blood erythrocytes count (nu mber/volume)Ordered By: Dr. Lew on 08-25-2022 RBC (Bld) [#/Vol] 4.35 10*6/uL 4.2-5.4 [facility] Blood hemoglobin measurement (mass/volume)Ordered By: Dr. Lew on 08-25-2022 Hemoglobin (Bld) [Mass/Vol] 12.4 g/dL 12.0-15.0 [facility] Blood lymphocytes/100 leukoc ytesOrdered By: Dr. Lew on 08-25-2022 Lymphocytes/100 WBC (Bld) 23.7 % 19-41 [facility] Blood monocytes/100 leukocyt esOrdered By: Dr. Lew on 08-25-2022 Monocytes/100 WBC (Bld) 6.2 % 0-10 [facility] Blood platelet mean volumeOr dered By: Dr. Lew on 08-25-2022 Platelet mean volume (Bld) [Entitic vol] 10.0 fL 6.2-12.0 [facility] Determination of erythrocyte mean corpuscular volume (MCV)Ordered By: Dr. Lew on 08-25-2022 MCV (RBC) [Entitic vol] 87.8 fL 81-99 [facility] Glucose Glucometer (BldC) [M ass/Vol]Ordered By: Dr. Lew on 08-25-2022 Glucose [Mass/Vol] 316 mg/dL 74-106 [facility] Comment on above: MANAGEMENT OF PATIEN T CARE PER NURSING PROTOCOL Hematocrit Auto (Bld) [Volum e fraction]Ordered By: Dr. Lew on 08-25-2022 Hematocrit (Bld) [Volume fraction] 38.2 % 37-47 [facility] INR in Blood by Coagulation assayOrdered By: Dr. Lew on 08-25-2022 INR Coag (Bld) [Relative time] 1.1 {INR} [facility] Laboratory - Chemistry and C hemistry - challengeOrdered By: Dr. Lew on 08-25-2022 CO2 [Moles/Vol] 25.0 mmol/L 21.0-32.0 [facility] Urea nitrogen/Creatinine [Mass ratio] 14.5 mg/mg 10-20 [facility] Laboratory - CoagulationOrde red By: Dr. Lew on 08-25-2022 aPTT Coag (Bld) [Time] 30.0 s 24.1-36.2 [facility] PT Coag (PPP) [Time] 14.4 s 11.7-14.9 [facility] Laboratory - Hematology and Cell countsOrdered By: Dr. Lew on 08-25-2022 Erythrocyte distribution width (RBC) [Entitic vol] 43.8 fL 35.1-43.9 [facility] Erythrocyte distribution width (RBC) [Ratio] 13.7 % 11.6-14.6 [facility] Immature granulocytes/100 WBC (Bld) 0.600 % 0.0-0.9 [facility] Comment on above: IG% - Immature Granu locytes (promyelocytes, myelocytes and metamyelocytes) > 1% indicates that a LEFT SHIFT is Present. MCH (RBC) [Entitic mass] 28.5 pg 27.0-32.0 [facility] Nucleated RBC/100 WBC (Bld) [Ratio] 0 % 0-5 [facility] MCHC Auto (RBC) [Mass/Vol]Or dered By: Dr. Lew on 08-25-2022 MCHC (RBC) [Mass/Vol] 32.5 g/dL 32-36 [facility] No Panel InformationOrdered By: Dr. Lew on 08-25-2022 Estimated GFR (MDRD) Amer 86 mL/min >60 [facility] Comment on above: GFR Calc Estimated GFR (MDRD) Non-Af Amer 71 mL/min >60 [facility] Comment on above: Non- GFR Calc Troponin I High Sensitivity 11 pg/mL 3.0-54.0 [facility] Comment on above: Please Note: New Soheila t Units and Gender Specific Reference Ranges. For more information see Policy Stat Procedure [place] High Sensitivity Troponin (TNIH) and attachments. Platelets bldOrdered By: Dr. Lew on 08-25-2022 Platelets (Bld) [#/Vol] 503 10*3/uL 150-450 [facility] Serum or plasma calcium ciera urement (mass/volume)Ordered By: Dr. Lew on 08-25-2022 Calcium [Mass/Vol] 9.3 mg/dL 8.5-10.1 [facility] Serum or plasma creatinine m easurement (mass/volume)Ordered By: Dr. Lew on 08-25-2022 Creatinine [Mass/Vol] 0.83 mg/dL 0.55-1.02 [facility] Comment on above: The validity of the calculated GFR & GFRAA in patients over 70 years has not been determined. Clinical correlation is essential. Serum or plasma urea nitroge n measurement (mass/volume)Ordered By: Dr. Lew on 08-25-2022 Urea nitrogen [Mass/Vol] 12 mg/dL 7-18 [facility] Thin prep Papanicolaou smear with manual screeningOrdered By: Dr. Lew on 08-25-2022 Thin prep Papanicolaou smear with manual screening 8 5-15 [facility] XR Lumbar spine 3 Viewson IMPRESSION: DEGENERATIVE CHANGE AND ALIGNMENT ABNORMALITIES DESCRIBED. REMOTE L2 FRACTURE. STABLE [facility] Transcribe Date/Time: Jul 13 2022 4:22P Dictated by : KAYLIN GALEANO MD This examination was interpreted and the report reviewed and electronically signed by: KAYLIN GALEANO MD on Jul 13 2022 4:24PM [facility] DIVISION OF RADIOLOGY * * *Final Report* [...] scoliosis. DIVISION OF RADIOLOGY Provider, Guido seth Joppa - 07/13/2022 * * *Final Report* * [...] ALIGNMENT ABNORMALITIES DESCRIBED. REMOTE L2 FRACTURE. STABLE Spa Associate: [facility] Transcribe Date/Time: Jul 13 2022 4:22P Dictated by : KAYLIN GALEANO MD This examination was interpreted and the report reviewed and electronically signed by: KAYLIN GALEANO MD on Jul 13 2022 4:24PM EST [facility] Radiology Study observation (narrative) [facility] XR Lumbar spine 3 ViewsOrder ed By: [facility] Provider on 07-13-2022 [facility] Vital Signs Date Time Vital Sign Value Performing Clinician Facility 09-25-2024 13:50-0400 Body mass index (BMI) [Ratio] 31.86 kg/m2 Astrid Older CONDUIT HELPER.ADAPTIVE PHYSICAL EDUCATION TEACHER Work Phone: [facility] 09-25-2024 13:50-0400 Body weight 80.29 kg Astrid Older CONDUIT HELPER.ADAPTIVE PHYSICAL EDUCATION TEACHER Work Phone: [facility] 09-25-2024 13:50-0400 Diastolic blood pressure 78 mm[Hg] Astrid Older CONDUIT HELPER.ADAPTIVE PHYSICAL EDUCATION TEACHER Work Phone: [facility] 09-25-2024 13:50-0400 Heart rate 74 /min Astrid Older CONDUIT HELPER.ADAPTIVE PHYSICAL EDUCATION TEACHER Work Phone: [facility] 09-25-2024 13:50-0400 Respiratory rate 16 /min Astrid Older CONDUIT HELPER.ADAPTIVE PHYSICAL EDUCATION TEACHER Work Phone: [facility] 09-25-2024 13:50-0400 SaO2% (BldA) [Mass fraction] 97 % Astrid Older CONDUIT HELPER.ADAPTIVE PHYSICAL EDUCATION TEACHER Work Phone: [facility] 09-25-2024 13:50-0400 Systolic blood pressure 116 mm[Hg] Astrid Older CONDUIT HELPER.ADAPTIVE PHYSICAL EDUCATION TEACHER Work Phone: [facility] 09-11-2024 09:57-0400 Body mass index (BMI) [Ratio] 32.58 kg/m2 Astrid Older CONDUIT HELPER.ADAPTIVE PHYSICAL EDUCATION TEACHER Work Phone: [facility] 09-11-2024 09:57-0400 Body temperature 97.5 [degF] Astrid Older CONDUIT HELPER.ADAPTIVE PHYSICAL EDUCATION TEACHER Work Phone: [facility] 09-11-2024 09:57-0400 Body weight 82.1 kg Astrid Older CONDUIT HELPER.ADAPTIVE PHYSICAL EDUCATION TEACHER Work Phone: [facility] 09-11-2024 09:57-0400 Diastolic blood pressure 80 mm[Hg] Astrid Older CONDUIT HELPER.ADAPTIVE PHYSICAL EDUCATION TEACHER Work Phone: [facility] 09-11-2024 09:57-0400 Heart rate 74 /min Astrid Older CONDUIT HELPER.ADAPTIVE PHYSICAL EDUCATION TEACHER Work Phone: [facility] 09-11-2024 09:57-0400 Respiratory rate 18 /min Astrid Older CONDUIT HELPER.ADAPTIVE PHYSICAL EDUCATION TEACHER Work Phone: [facility] 09-11-2024 09:57-0400 SaO2% (BldA) [Mass fraction] 93 % Astrid Older CONDUIT HELPER.ADAPTIVE PHYSICAL EDUCATION TEACHER Work Phone: [facility] 09-11-2024 09:57-0400 Systolic blood pressure 112 mm[Hg] Astrid Older CONDUIT HELPER.ADAPTIVE PHYSICAL EDUCATION TEACHER Work Phone: [facility] 09-08-2024 15:53-0400 Body temperature 98.3 [degF] ASTRID OLDER SHEEP SORTER-C Work Phone: [facility] 09-08-2024 15:53-0400 Diastolic blood pressure 51 mm[Hg] ASTRID OLDER SHEEP SORTER-C Work Phone: [facility] 09-08-2024 15:53-0400 Heart rate 59 /min ASTRID OLDER SHEEP SORTER-C Work Phone: [facility] 09-08-2024 15:53-0400 Respiratory rate 14 /min ASTRID OLDER SHEEP SORTER-C Work Phone: [facility] 09-08-2024 15:53-0400 SaO2% (BldA) [Mass fraction] 95 % ASTRID OLDER SHEEP SORTER-C Work Phone: [facility] 09-08-2024 15:53-0400 Systolic blood pressure 104 mm[Hg] ASTRID OLDER SHEEP SORTER-C Work Phone: [facility] 09-08-2024 10:05-0400 Body height 157.48 cm ASTRID OLDER SHEEP SORTER-C Work Phone: [facility] 09-08-2024 10:05-0400 Body mass index (BMI) [Ratio] 34.5 kg/m2 ASTRID OLDER SHEEP SORTER-C Work Phone: [facility] 09-08-2024 10:05-0400 Body weight 85.72 kg ASTRID OLDER SHEEP SORTER-C Work Phone: [facility] 09-06-2024 08:08-0400 Body height 157.48 cm ASTRID OLDER SHEEP SORTER-C Work Phone: [facility] 09-06-2024 08:08-0400 Body mass index (BMI) [Ratio] 32.5 kg/m2 ASTRID OLDER SHEEP SORTER-C Work Phone: [facility] 09-06-2024 08:08-0400 Body weight 80.73 kg ASTRID OLDER SHEEP SORTER-C Work Phone: [facility] 09-06-2024 08:08-0400 Diastolic blood pressure 53 mm[Hg] ASTRID OLDER SHEEP SORTER-C Work Phone: [facility] 09-06-2024 08:08-0400 Heart rate 60 /min ASTRID OLDER SHEEP SORTER-C Work Phone: [facility] 09-06-2024 08:08-0400 Respiratory rate 16 /min ASTRID OLDER SHEEP SORTER-C Work Phone: [facility] 09-06-2024 08:08-0400 Systolic blood pressure 93 mm[Hg] ASTRID OLDER SHEEP SORTER-C Work Phone: [facility] 07-25-2024 08:03-0400 Body mass index (BMI) [Ratio] 32.4 kg/m2 Jones Velasquez MD Work Phone: [facility] 07-25-2024 08:03-0400 Body temperature 98.49 [degF] Jones Velasquez MD Work Phone: [facility] 07-25-2024 08:03-0400 Body weight 81.65 kg Jones Velasquez MD Work Phone: [facility] 07-25-2024 08:03-0400 Diastolic blood pressure 68 mm[Hg] Jones Velasquez MD Work Phone: [facility] 07-25-2024 08:03-0400 Heart rate 73 /min Jones Velasquez MD Work Phone: [facility] 07-25-2024 08:03-0400 SaO2% (BldA) [Mass fraction] 100 % Jones Velasquez MD Work Phone: [facility] 07-25-2024 08:03-0400 Systolic blood pressure 108 mm[Hg] Jones Velasquez MD Work Phone: [facility] 06-09-2024 10:17-0400 Body mass index (BMI) [Ratio] 32.22 kg/m2 Astrid Older CONDUIT HELPER.ADAPTIVE PHYSICAL EDUCATION TEACHER Work Phone: [facility] 06-09-2024 10:17-0400 Body weight 81.19 kg Astrid Older CONDUIT HELPER.ADAPTIVE PHYSICAL EDUCATION TEACHER Work Phone: [facility] 06-09-2024 10:17-0400 Diastolic blood pressure 68 mm[Hg] Astrid Older CONDUIT HELPER.ADAPTIVE PHYSICAL EDUCATION TEACHER Work Phone: [facility] 06-09-2024 10:17-0400 Heart rate 64 /min Astrid Older CONDUIT HELPER.ADAPTIVE PHYSICAL EDUCATION TEACHER Work Phone: [facility] 06-09-2024 10:17-0400 Respiratory rate 16 /min Astrid Older CONDUIT HELPER.ADAPTIVE PHYSICAL EDUCATION TEACHER Work Phone: [facility] 06-09-2024 10:17-0400 SaO2% (BldA) [Mass fraction] 98 % Astrid Older CONDUIT HELPER.ADAPTIVE PHYSICAL EDUCATION TEACHER Work Phone: [facility] 06-09-2024 10:17-0400 Systolic blood pressure 112 mm[Hg] Astrid Older CONDUIT HELPER.ADAPTIVE PHYSICAL EDUCATION TEACHER Work Phone: [facility] 04-28-2024 10:31-0500 Body mass index (BMI) [Ratio] 31.86 kg/m2 Astrid Older CONDUIT HELPER.ADAPTIVE PHYSICAL EDUCATION TEACHER Work Phone: [facility] 04-28-2024 10:31-0500 Body weight 80.29 kg Astrid Older CONDUIT HELPER.ADAPTIVE PHYSICAL EDUCATION TEACHER Work Phone: [facility] 04-28-2024 10:31-0500 Diastolic blood pressure 68 mm[Hg] Astrid Older CONDUIT HELPER.ADAPTIVE PHYSICAL EDUCATION TEACHER Work Phone: [facility] 04-28-2024 10:31-0500 Heart rate 64 /min Astrid Older CONDUIT HELPER.ADAPTIVE PHYSICAL EDUCATION TEACHER Work Phone: [facility] 04-28-2024 10:31-0500 Respiratory rate 16 /min Astrid Older CONDUIT HELPER.ADAPTIVE PHYSICAL EDUCATION TEACHER Work Phone: [facility] 04-28-2024 10:31-0500 SaO2% (BldA) [Mass fraction] 97 % Astrid Older CONDUIT HELPER.ADAPTIVE PHYSICAL EDUCATION TEACHER Work Phone: [facility] 04-28-2024 10:31-0500 Systolic blood pressure 122 mm[Hg] Astrid Older CONDUIT HELPER.ADAPTIVE PHYSICAL EDUCATION TEACHER Work Phone: [facility] 03-20-2024 12:51-0500 Body height 158.8 cm Justin Christopher MD Work Phone: [facility] 03-20-2024 12:51-0500 Body mass index (BMI) [Ratio] 32.58 kg/m2 Justin Christopher MD Work Phone: [facility] 03-20-2024 12:51-0500 Body temperature 97.5 [degF] Justin Christopher MD Work Phone: [facility] 03-20-2024 12:51-0500 Body weight 82.1 kg Justni Christopher MD Work Phone: [facility] 03-20-2024 12:51-0500 Diastolic blood pressure 65 mm[Hg] Justin Christopher MD Work Phone: [facility] 03-20-2024 12:51-0500 Heart rate 61 /min Justin Christopher MD Work Phone: [facility] 03-20-2024 12:51-0500 SaO2% (BldA) [Mass fraction] 97 % Justin Christopher MD Work Phone: [facility] 03-20-2024 12:51-0500 Systolic blood pressure 113 mm[Hg] Justin Christopher MD Work Phone: [facility] 03-15-2024 10:08-0500 Body mass index (BMI) [Ratio] 33.29 kg/m2 Astrid Older CONDUIT HELPER.ADAPTIVE PHYSICAL EDUCATION TEACHER Work Phone: [facility] 03-15-2024 10:08-0500 Body weight 82.56 kg Astrid Older CONDUIT HELPER.ADAPTIVE PHYSICAL EDUCATION TEACHER Work Phone: [facility] 03-15-2024 10:08-0500 Diastolic blood pressure 74 mm[Hg] Astrid Older CONDUIT HELPER.ADAPTIVE PHYSICAL EDUCATION TEACHER Work Phone: [facility] 03-15-2024 10:08-0500 Heart rate 60 /min Astrid Older CONDUIT HELPER.ADAPTIVE PHYSICAL EDUCATION TEACHER Work Phone: [facility] 03-15-2024 10:08-0500 Respiratory rate 16 /min Astrid Older CONDUIT HELPER.ADAPTIVE PHYSICAL EDUCATION TEACHER Work Phone: [facility] 03-15-2024 10:08-0500 SaO2% (BldA) [Mass fraction] 95 % Astrid Older CONDUIT HELPER.ADAPTIVE PHYSICAL EDUCATION TEACHER Work Phone: [facility] 03-15-2024 10:08-0500 Systolic blood pressure 128 mm[Hg] Astrid Older CONDUIT HELPER.ADAPTIVE PHYSICAL EDUCATION TEACHER Work Phone: [facility] 02-02-2024 12:17-0500 Body mass index (BMI) [Ratio] 33.84 kg/m2 Astrid Older CONDUIT HELPER.ADAPTIVE PHYSICAL EDUCATION TEACHER Work Phone: [facility] 02-02-2024 12:17-0500 Body weight 83.92 kg Astrid Older CONDUIT HELPER.ADAPTIVE PHYSICAL EDUCATION TEACHER Work Phone: [facility] 02-02-2024 12:17-0500 Diastolic blood pressure 72 mm[Hg] Astrid Older CONDUIT HELPER.ADAPTIVE PHYSICAL EDUCATION TEACHER Work Phone: [facility] 02-02-2024 12:17-0500 Heart rate 56 /min Astrid Older CONDUIT HELPER.ADAPTIVE PHYSICAL EDUCATION TEACHER Work Phone: [facility] 02-02-2024 12:17-0500 Respiratory rate 16 /min Astrid Older CONDUIT HELPER.ADAPTIVE PHYSICAL EDUCATION TEACHER Work Phone: [facility] 02-02-2024 12:17-0500 SaO2% (BldA) [Mass fraction] 96 % Astrid Older CONDUIT HELPER.ADAPTIVE PHYSICAL EDUCATION TEACHER Work Phone: [facility] 02-02-2024 12:17-0500 Systolic blood pressure 128 mm[Hg] Astrid Older CONDUIT HELPER.ADAPTIVE PHYSICAL EDUCATION TEACHER Work Phone: [facility] 01-21-2024 13:53-0500 Diastolic Blood Pressure Non-Invasive 48 mm[Hg] JUNE MARLIN CONDUIT HELPER-ADAPTIVE PHYSICAL EDUCATION TEACHER [facility] 01-21-2024 13:53-0500 Systolic Blood Pressure Non-Invasive 104 mm[Hg] JUNE MARLIN CONDUIT HELPER-ADAPTIVE PHYSICAL EDUCATION TEACHER [facility] 01-21-2024 13:37-0500 Body temperature 98.06 [degF] JUNE MARLIN CONDUIT HELPER-ADAPTIVE PHYSICAL EDUCATION TEACHER [facility] 01-21-2024 13:37-0500 Diastolic Blood Pressure Non-Invasive 40 mm[Hg] JUNE MARLIN CONDUIT HELPER-ADAPTIVE PHYSICAL EDUCATION TEACHER [facility] 01-21-2024 13:37-0500 Heart rate 66 /min JUNE MARLIN CONDUIT HELPER-ADAPTIVE PHYSICAL EDUCATION TEACHER [facility] 01-21-2024 13:37-0500 Reason For Taking VItal Signs JUNE MARLIN CONDUIT HELPER-ADAPTIVE PHYSICAL EDUCATION TEACHER [facility] 01-21-2024 13:37-0500 Respiratory rate 18 /min JUNE MARLIN CONDUIT HELPER-ADAPTIVE PHYSICAL EDUCATION TEACHER [facility] 01-21-2024 13:37-0500 Systolic Blood Pressure Non-Invasive 91 mm[Hg] JUNE MARLIN CONDUIT HELPER-ADAPTIVE PHYSICAL EDUCATION TEACHER [facility] 01-21-2024 07:41-0500 Body temperature 98.24 [degF] JUNE MARLIN CONDUIT HELPER-ADAPTIVE PHYSICAL EDUCATION TEACHER [facility] 01-21-2024 07:41-0500 Diastolic Blood Pressure Non-Invasive 48 mm[Hg] JUNE MARLIN CONDUIT HELPER-ADAPTIVE PHYSICAL EDUCATION TEACHER [facility] 01-21-2024 07:41-0500 Heart rate 72 /min JUNE MARLIN CONDUIT HELPER-ADAPTIVE PHYSICAL EDUCATION TEACHER [facility] 01-21-2024 07:41-0500 Reason For Taking VItal Signs JUNE MARLIN CONDUIT HELPER-ADAPTIVE PHYSICAL EDUCATION TEACHER [facility] 01-21-2024 07:41-0500 Respiratory rate 16 /min JUNE MARLIN CONDUIT HELPER-ADAPTIVE PHYSICAL EDUCATION TEACHER [facility] 01-21-2024 07:41-0500 Systolic Blood Pressure Non-Invasive 110 mm[Hg] JUNE MARLIN CONDUIT HELPER-ADAPTIVE PHYSICAL EDUCATION TEACHER [facility] 01-21-2024 06:40-0500 Body temperature 98.24 [degF] JUNE MARLIN CONDUIT HELPER-ADAPTIVE PHYSICAL EDUCATION TEACHER [facility] 01-21-2024 06:40-0500 Heart rate 71 /min JUNE MARLIN CONDUIT HELPER-ADAPTIVE PHYSICAL EDUCATION TEACHER [facility] 01-21-2024 06:40-0500 Respiratory rate 16 /min JUNE MARLIN CONDUIT HELPER-ADAPTIVE PHYSICAL EDUCATION TEACHER [facility] 01-21-2024 01:45-0500 Heart rate 77 /min JUNE MARLIN CONDUIT HELPER-ADAPTIVE PHYSICAL EDUCATION TEACHER [facility] 01-21-2024 01:17-0500 Body height 157.5 cm JUNE MARLIN CONDUIT HELPER-ADAPTIVE PHYSICAL EDUCATION TEACHER [facility] 01-21-2024 01:17-0500 Body weight 82.5 kg JUNE MARLIN CONDUIT HELPER-ADAPTIVE PHYSICAL EDUCATION TEACHER [facility] 01-21-2024 01:17-0500 Body weight 33.26 kg/m2 JUNE MARLIN CONDUIT HELPER-ADAPTIVE PHYSICAL EDUCATION TEACHER [facility] 01-21-2024 00:34-0500 Heart rate 83 /min JUNE MARLIN CONDUIT HELPER-ADAPTIVE PHYSICAL EDUCATION TEACHER [facility] 10-27-2023 09:52-0400 Body mass index (BMI) [Ratio] 34.02 kg/m2 Astrid Older CONDUIT HELPER.ADAPTIVE PHYSICAL EDUCATION TEACHER Work Phone: [facility] 10-27-2023 09:52-0400 Body weight 84.37 kg Astrid Older CONDUIT HELPER.ADAPTIVE PHYSICAL EDUCATION TEACHER Work Phone: [facility] 10-27-2023 09:52-0400 Diastolic blood pressure 68 mm[Hg] Astrid Older CONDUIT HELPER.ADAPTIVE PHYSICAL EDUCATION TEACHER Work Phone: [facility] 10-27-2023 09:52-0400 Heart rate 60 /min Astrid Older CONDUIT HELPER.ADAPTIVE PHYSICAL EDUCATION TEACHER Work Phone: [facility] 10-27-2023 09:52-0400 Respiratory rate 16 /min Astrid Older CONDUIT HELPER.ADAPTIVE PHYSICAL EDUCATION TEACHER Work Phone: [facility] 10-27-2023 09:52-0400 SaO2% (BldA) [Mass fraction] 97 % Astrid Older CONDUIT HELPER.ADAPTIVE PHYSICAL EDUCATION TEACHER Work Phone: [facility] 10-27-2023 09:52-0400 Systolic blood pressure 124 mm[Hg] Astrid Older CONDUIT HELPER.ADAPTIVE PHYSICAL EDUCATION TEACHER Work Phone: [facility] 04-27-2023 09:47-0500 Body height 157.5 cm Renetta Denbow PA-C Work Phone: [facility] 04-27-2023 09:47-0500 Body weight 85.28 kg Renetta Denbow PA-C Work Phone: [facility] 04-27-2023 09:47-0500 Diastolic blood pressure 58 mm[Hg] Renetta Denbow PA-C Work Phone: [facility] 04-27-2023 09:47-0500 Heart rate 61 /min Renetta Denbow PA-C Work Phone: [facility] 04-27-2023 09:47-0500 Respiratory rate 12 /min Renetta Denbow PA-C Work Phone: [facility] 04-27-2023 09:47-0500 SaO2% (BldA) [Mass fraction] 97 % Renetta Denbow PA-C Work Phone: [facility] 04-27-2023 09:47-0500 Systolic blood pressure 122 mm[Hg] Renetta Denbow PA-C Work Phone: [facility] 12-09-2022 13:17-0400 Body height 157.5 cm Renetta Denbow PA-C Work Phone: [facility] 12-09-2022 13:17-0400 Body temperature 97.9 [degF] Renetta Denbow PA-C Work Phone: [facility] 12-09-2022 13:17-0400 Body weight 88.91 kg Renetta Denbow PA-C Work Phone: [facility] 12-09-2022 13:17-0400 Diastolic blood pressure 56 mm[Hg] Renetta Denbow PA-C Work Phone: [facility] 12-09-2022 13:17-0400 Heart rate 85 /min Renetta Denbow PA-C Work Phone: [facility] 12-09-2022 13:17-0400 Respiratory rate 16 /min Renetta Denbow PA-C Work Phone: [facility] 12-09-2022 13:17-0400 SaO2% (BldA) [Mass fraction] 97 % Renetta Denbow PA-C Work Phone: [facility] 12-09-2022 13:17-0400 Systolic blood pressure 118 mm[Hg] Renetta Denbow PA-C Work Phone: [facility] 10-14-2022 13:03-0400 Body height 157.5 cm Renetta Denbow PA-C Work Phone: [facility] 10-14-2022 13:03-0400 Body temperature 97.5 [degF] Renetta Denbow PA-C Work Phone: [facility] 10-14-2022 13:03-0400 Body weight 92.53 kg Renetta Denbow PA-C Work Phone: [facility] 10-14-2022 13:03-0400 Diastolic blood pressure 72 mm[Hg] Renetta Denbow PA-C Work Phone: [facility] 10-14-2022 13:03-0400 Heart rate 60 /min Renetta Denbow PA-C Work Phone: [facility] 10-14-2022 13:03-0400 Respiratory rate 14 /min Renetta Denbow PA-C Work Phone: [facility] 10-14-2022 13:03-0400 SaO2% (BldA) [Mass fraction] 96 % Renetta Denbow PA-C Work Phone: [facility] 10-14-2022 13:03-0400 Systolic blood pressure 120 mm[Hg] Renetta Denbow PA-C Work Phone: [facility] 09-03-2022 13:04-0400 Body weight 92.72 kg Astrid Older CONDUIT HELPER.ADAPTIVE PHYSICAL EDUCATION TEACHER Work Phone: [facility] 09-03-2022 13:04-0400 Diastolic blood pressure 82 mm[Hg] Astrid Older CONDUIT HELPER.ADAPTIVE PHYSICAL EDUCATION TEACHER Work Phone: [facility] 09-03-2022 13:04-0400 Heart rate 104 /min Astrid Older CONDUIT HELPER.ADAPTIVE PHYSICAL EDUCATION TEACHER Work Phone: [facility] 09-03-2022 13:04-0400 Respiratory rate 16 /min Astrid Older CONDUIT HELPER.ADAPTIVE PHYSICAL EDUCATION TEACHER Work Phone: [facility] 09-03-2022 13:04-0400 SaO2% (BldA) [Mass fraction] 93 % Astrid Older CONDUIT HELPER.ADAPTIVE PHYSICAL EDUCATION TEACHER Work Phone: [facility] 09-03-2022 13:04-0400 Systolic blood pressure 142 mm[Hg] Astrid Older CONDUIT HELPER.ADAPTIVE PHYSICAL EDUCATION TEACHER Work Phone: [facility] 08-28-2022 14:08-0400 Body temperature 98.3 [degF] Dr. Jones Velasquez Work Phone: 2(968)841-523100 [place] [address] 08-28-2022 14:08-0400 Diastolic blood pressure 73 mm[Hg] Dr. Jones Velasquez Work Phone: 6(928)[phone] [place] [address] 08-28-2022 14:08-0400 Heart rate 84 /min Dr. Jones Velasquez Work Phone: 4(356)[phone] [place] [address] 08-28-2022 14:08-0400 Respiratory rate 18 /min Dr. Jones Velasquez Work Phone: 9(824)298-157900 [place] [address] 08-28-2022 14:08-0400 SaO2% (BldA) [Mass fraction] 96 % Dr. Jones Velasquez Work Phone: 6(069)880-14[address] [place] [address] 08-28-2022 14:08-0400 Systolic blood pressure 156 mm[Hg] Dr. Jones Velasquez Work Phone: 1(255)172-705400 [place] [address] 08-28-2022 12:45-0400 Body mass index (BMI) [Ratio] 38 kg/m2 Dr. Jones Velasquez Work Phone: 5(457)123-104600 [place] [address] 08-26-2022 15:41-0400 Body height 157.[address] Jones Velasquez Work Phone: 9(067)194-185[address] [place] [address] 08-26-2022 15:41-0400 Body weight 94.[address] Jones Velasquez Work Phone: 6(409)758-108[address] [place] [address] 08-25-2022 18:39-0400 Diastolic blood pressure 78 mm[Hg] Dr. Jones Velasquez Work Phone: 2(281)194-664200 [place] [address] 08-25-2022 18:39-0400 Heart rate 95 /min Dr. Jones Velasquez Work Phone: 3(781)780-748100 [place] [address] 08-25-2022 18:39-0400 Respiratory rate 16 /min Dr. Jones Velasquez Work Phone: 9(326)498-376200 [place] [address] 08-25-2022 18:39-0400 SaO2% (BldA) [Mass fraction] 96 % Dr. Jones Velasquez Work Phone: 5(629)054-269700 [place] [address] 08-25-2022 18:39-0400 Systolic blood pressure 98 mm[Hg] Dr. Jones Velasquez Work Phone: 4(818)089-099600 [place] [address] 08-25-2022 18:12-0400 Body temperature 98.9 [degF] Dr. Jones Velasquez Work Phone: 6(701)076-603900 [place] [address] 08-25-2022 16:34-0400 Body height 157.[address] Jones Velasquez Work Phone: 3(556)039-045000 [place] [address] 08-25-2022 16:34-0400 Body mass index (BMI) [Ratio] 39.2 kg/m2 Dr. Jones Velasquez Work Phone: 6(910)908-096800 [place] [address] 08-25-2022 16:34-0400 Body weight 97.[address] Jones Velasquez Work Phone: 3(928)149-774100 [place] [address] 08-12-2022 10:34-0400 Body mass index (BMI) [Ratio] 38.2 kg/m2 Dr. Jones Velasquez Work Phone: 7(456)135-489000 [place] [address] 08-12-2022 10:34-0400 Body weight 94.[address] Jones Velasquez Work Phone: 3(002)314-824300 [place] [address] 08-12-2022 10:34-0400 Diastolic blood pressure 79 mm[Hg] Dr. Jones Velasquez Work Phone: 7(739)570-536400 [place] [address] 08-12-2022 10:34-0400 Heart rate 71 /min Dr. Jones Velasquez Work Phone: 9(945)480-902600 [place] [address] 08-12-2022 10:34-0400 Respiratory rate 18 /min Dr. Jones Velasquez Work Phone: 6(596)863-072700 [place] [address] 08-12-2022 10:34-0400 SaO2% (BldA) [Mass fraction] 96 % Dr. Jones Velasquez Work Phone: 2(125)723-869300 [place] [address] 08-12-2022 10:34-0400 Systolic blood pressure 137 mm[Hg] Dr. Jones Velasquez Work Phone: [facility] 06-04-2022 13:07-0400 Body temperature 97.81 [degF] Astrid Older CONDUIT HELPER.ADAPTIVE PHYSICAL EDUCATION TEACHER Work Phone: [facility] 06-04-2022 13:07-0400 Body weight 99.34 kg Astrid Older CONDUIT HELPER.ADAPTIVE PHYSICAL EDUCATION TEACHER Work Phone: [facility] 06-04-2022 13:07-0400 Diastolic blood pressure 78 mm[Hg] Astrid Older CONDUIT HELPER.ADAPTIVE PHYSICAL EDUCATION TEACHER Work Phone: [facility] 06-04-2022 13:07-0400 Heart rate 68 /min Astrid Older CONDUIT HELPER.ADAPTIVE PHYSICAL EDUCATION TEACHER Work Phone: [facility] 06-04-2022 13:07-0400 Respiratory rate 16 /min Astrid Older CONDUIT HELPER.ADAPTIVE PHYSICAL EDUCATION TEACHER Work Phone: [facility] 06-04-2022 13:07-0400 SaO2% (BldA) [Mass fraction] 95 % Astrid Older CONDUIT HELPER.ADAPTIVE PHYSICAL EDUCATION TEACHER Work Phone: [facility] 06-04-2022 13:07-0400 Systolic blood pressure 132 mm[Hg] Astrid Older CONDUIT HELPER.ADAPTIVE PHYSICAL EDUCATION TEACHER Work Phone: [facility] 02-18-2022 10:05-0500 Body height 157.5 cm Jones Velasquez MD Work Phone: [facility] 02-18-2022 10:05-0500 Body temperature 97.5 [degF] Jones Velasquez MD Work Phone: [facility] 02-18-2022 10:05-0500 Body weight 97.52 kg Jones Velasquez MD Work Phone: [facility] 02-18-2022 10:05-0500 Diastolic blood pressure 76 mm[Hg] Jones Velasquez MD Work Phone: [facility] 02-18-2022 10:05-0500 Heart rate 65 /min Jones Velasquez MD Work Phone: [facility] 02-18-2022 10:05-0500 Respiratory rate 16 /min Jones Velasquez MD Work Phone: [facility] 02-18-2022 10:05-0500 SaO2% (BldA) [Mass fraction] 97 % Jones Velasquez MD Work Phone: [facility] 02-18-2022 10:05-0500 Systolic blood pressure 128 mm[Hg] Jones Velasquez MD Work Phone: [facility] 08-15-2021 11:38-0400 Body height 157.5 cm Jones Velasquez MD Work Phone: [facility] 08-15-2021 11:38-0400 Body temperature 97.5 [degF] Jones Velasquez MD Work Phone: [facility] 08-15-2021 11:38-0400 Body weight 95.71 kg Jones Velasquez MD Work Phone: [facility] 08-15-2021 11:38-0400 Diastolic blood pressure 64 mm[Hg] Jones Velasquez MD Work Phone: [facility] 08-15-2021 11:38-0400 Heart rate 52 /min Jones Velasquez MD Work Phone: [facility] 08-15-2021 11:38-0400 Respiratory rate 14 /min Jones Velasquez MD Work Phone: [facility] 08-15-2021 11:38-0400 SaO2% (BldA) [Mass fraction] 99 % Jones Velasquez MD Work Phone: [facility] 08-15-2021 11:38-0400 Systolic blood pressure 130 mm[Hg] Jones Velasquez MD Work Phone: [facility] Encounters Encounter Date Encounter Type Care Provider Facility Start: 09-25-2024 End: 09-25-2024 Patient encounter procedure Astrid Muse APRN.CNP Work Phone: [facility] Comment on above: Medicare annual well ness visit, subsequent (Primary Dx); Screening for depression; Encounter for screening examination for other mental health and behavioral disorders Start: 09-11-2024 End: 09-11-2024 Office outpatient visit 25 minutes Astrid Muse CONDUIT HELPER.ADAPTIVE PHYSICAL EDUCATION TEACHER Work Phone: [facility] Comment on above: Nephrolithiasis (Tiki vitor Dx); Type 2 diabetes mellitus with hyperglycemia, without long-term current use of insulin (HCC); Essential (primary) hypertension Start: 09-11-2024 End: 09-11-2024 [facility] Facility:[facility] Start: 09-08-2024 End: 09-08-2024 Emergency department patient visit ASTRID MUSE SHEEP SORTER-C Work Phone: -Emergency Department Work Phone: Start: 09-06-2024 End: 09-06-2024 [facility] Facility:[facility] Start: 09-06-2024 End: 09-06-2024 Patient encounter procedure Sho Marinelli [place] -[facility] Work Phone: Start: 09-06-2024 End: 09-06-2024 ambulatory ASTRID MUSE SHEEP SORTER-C Work Phone: -[facility] Start: 08-16-2024 End: 08-17-2024 Refill Jones Velasquez MD Work Phone: [facility] Comment on above: Refill Request Start: 08-14-2024 End: 08-14-2024 Nursing evaluation of patient and report Mi Nurse Work Phone: [facility] Comment on above: Vitamin B 12 deficie ncy (Primary Dx) Start: 08-14-2024 End: 08-14-2024 [facility] Facility:[facility] Start: 07-25-2024 End: 07-25-2024 Office outpatient visit 25 minutes Jones Velasquez MD Work Phone: [facility] Comment on above: Urinary frequency (P rimary Dx); Left flank pain; Acute cystitis with hematuria; terminal carman (current) use of oral hypoglycemic drugs Start: 07-25-2024 End: 07-25-2024 [facility] Start: 07-17-2024 End: 07-17-2024 Nursing evaluation of patient and report Mi Nurse Work Phone: [facility] Comment on above: Vitamin B 12 deficie ncy (Primary Dx) Start: 07-17-2024 End: 07-17-2024 [facility] Facility:[facility] Start: 06-19-2024 End: 06-19-2024 [facility] Facility:[facility] Start: 06-19-2024 End: 06-19-2024 Nursing evaluation of patient and report Mi Nurse Work Phone: [facility] Comment on above: Vitamin B 12 deficie ncy (Primary Dx) Start: 06-09-2024 End: 06-09-2024 [facility] Facility:[facility] Start: 06-09-2024 End: 06-09-2024 Patient encounter procedure Astrid Older CONDUIT HELPER.ADAPTIVE PHYSICAL EDUCATION TEACHER Work Phone: [facility] Comment on above: Type 2 diabetes maldonado itus with hyperglycemia, without long-term current use of insulin (HCC) (Primary Dx); Occipital stroke (HCC); Essential hypertension; Thyroid nodule Start: 05-22-2024 End: 05-22-2024 [facility] Start: 05-22-2024 End: 05-22-2024 Nursing evaluation of patient and report Mi Nurse Work Phone: [facility] Comment on above: Vitamin B 12 deficie ncy (Primary Dx) Start: 04-28-2024 End: 04-28-2024 [facility] Start: 04-28-2024 End: 04-28-2024 Patient encounter procedure Astrid Older CONDUIT HELPER.ADAPTIVE PHYSICAL EDUCATION TEACHER Work Phone: Internal Medicine [place] Comment on above: 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); Urinary tract infection without hematuria, site unspecified; Lower abdominal tenderness Start: 04-26-2024 End: 04-26-2024 [facility] Facility:[facility] Start: 04-03-2024 End: 04-03-2024 [facility] Facility:[facility] Start: 04-03-2024 End: 04-03-2024 Patient encounter procedure Justin Christopher MD Work Phone: General Surgery Comment on above: Thyroid nodule (Prim cherelle Dx) Start: 03-20-2024 End: 03-20-2024 [facility] Facility:[facility] Start: 03-20-2024 End: 03-20-2024 Patient encounter procedure Justin Christopher MD Work Phone: General Surgery Comment on above: Thyroid nodule Start: 03-20-2024 End: 03-20-2024 [facility] Facility:[facility] Start: 03-20-2024 End: 03-20-2024 Nursing evaluation of patient and report Mi Nurse Work Phone: Family Medicine [place] Comment on above: Vitamin B 12 deficie ncy (Primary Dx) Start: 03-15-2024 End: 03-15-2024 [facility] Facility:[facility] Start: 03-15-2024 End: 03-15-2024 Patient encounter procedure Astrid Muse APRN.ADAPTIVE PHYSICAL EDUCATION TEACHER Work Phone: Internal Medicine [place] Comment on above: Urinary tract infect ion without hematuria, site unspecified (Primary Dx); Essential hypertension; Diabetes mellitus type 2 with complications (HCC) Start: 03-14-2024 End: 03-14-2024 [facility] Facility:[facility] Start: 02-21-2024 End: 02-21-2024 Nursing evaluation of patient and report Mi Nurse Work Phone: Family Medicine [place] Comment on above: Vitamin B 12 deficie ncy (Primary Dx) Start: 02-21-2024 End: 02-21-2024 [facility] Facility:[facility] Start: 02-14-2024 End: 02-14-2024 Telephone encounter Jones Velasquez MD Work Phone: Internal Medicine [place] Comment on above: Orders Refill Request Start: 02-09-2024 End: 02-10-2024 Telephone encounter Astrid Muse APRN.ADAPTIVE PHYSICAL EDUCATION TEACHER Work Phone: Family Medicine [place] Comment on above: Results Start: 02-09-2024 End: 02-09-2024 [facility] Facility:[facility] Start: 02-08-2024 End: 02-08-2024 [facility] Facility:[facility] Start: 02-08-2024 End: 02-08-2024 Subsequent hospital visit by physician [facility] Work Phone: Radiology Comment on above: Thyroid nodule [E04. 1] Start: 02-02-2024 End: 02-02-2024 [facility] Facility:[facility] Start: 02-02-2024 End: 02-02-2024 Patient encounter procedure Astrid Muse APRN.ADAPTIVE PHYSICAL EDUCATION TEACHER Work Phone: Internal Medicine [place] Comment on above: History of recent ho spitalization (Primary Dx); Urinary tract infection without hematuria, site unspecified; Hypomagnesemia; Thyroid nodule Start: 01-24-2024 End: 01-24-2024 [facility] Facility:[facility] Start: 01-24-2024 End: 01-24-2024 Nursing evaluation of patient and report Mi Nurse Work Phone: Family Medicine [place] Comment on above: Vitamin B 12 deficie ncy (Primary Dx) Start: 01-20-2024 End: 01-21-2024 Emergency department patient visit DEX TOUSSAINT MD Facility:[facility] Start: 01-20-2024 End: 01-21-2024 Observation ROMULO RAI CONDUIT HELPER-ADAPTIVE PHYSICAL EDUCATION TEACHER [facility] Start: 12-27-2023 End: 12-27-2023 [facility] Facility:[facility] Start: 12-27-2023 End: 12-27-2023 Nursing evaluation of patient and report Mi Nurse Work Phone: Family Medicine [place] Comment on above: Vitamin B 12 deficie ncy (Primary Dx) Start: 11-29-2023 End: 11-29-2023 Nursing evaluation of patient and report Mi Nurse Work Phone: [facility] [place] Comment on above: Vitamin B 12 deficie ncy (Primary Dx) Start: 11-29-2023 End: 11-29-2023 [facility] Facility:[facility] Start: 11-01-2023 End: 11-01-2023 [facility] Start: 11-01-2023 End: 11-01-2023 Nursing evaluation of patient and report Mi Nurse Work Phone: [facility] [place] Comment on above: Vitamin B 12 deficie ncy (Primary Dx) Start: 10-27-2023 End: 10-27-2023 [facility] Facility:[facility] Start: 10-27-2023 End: 10-27-2023 Patient encounter procedure Astrid Muse APRN.CNP Work Phone: Internal Medicine [place] Comment on above: Essential hypertensi on (Primary Dx); Diabetes mellitus type 2 with complications (HCC); Mixed hyperlipidemia; Paroxysmal A-fib (HCC); Hypothyroidism, unspecified type Start: 10-26-2023 End: 10-26-2023 [facility] Facility:[facility] Start: 10-22-2023 End: 10-25-2023 Telephone encounter Jones Velasquez MD Work Phone: Internal Medicine [place] Comment on above: Orders Start: 10-07-2023 Refill Jones Ganta M D Work Phone: Internal Medicine [place] Comment on above: Refill Request Start: 10-04-2023 End: 10-04-2023 [facility] Facility:[facility] Start: 10-04-2023 End: 10-04-2023 Nursing evaluation of patient and report Mi Nurse Work Phone: Family [facility] [place] Comment on above: Vitamin B 12 deficie ncy (Primary Dx) Start: 09-07-2023 End: 09-07-2023 Nursing evaluation of patient and report Mi Nurse Work Phone: [facility] [place] Comment on above: Vitamin B 12 deficie ncy (Primary Dx) Start: 08-11-2023 Refill Jones Ganta M D Work Phone: Internal Medicine [place] Comment on above: Refill Request Start: 08-09-2023 Refill Jones Duke Work Phone: Internal [facility] [place] Comment on above: Refill Request Start: 07-30-2023 End: 07-30-2023 Nursing evaluation of patient and report Mi Nurse Work Phone: [facility] [place] Comment on above: Vitamin B 12 deficie ncy (Primary Dx) Start: 07-05-2023 End: 07-05-2023 Nursing evaluation of patient and report Mi Nurse Work Phone: [facility] [place] Comment on above: Vitamin B 12 deficie ncy (Primary Dx) Start: 06-30-2023 Refill Astrid Older CONDUIT HELPER .ADAPTIVE PHYSICAL EDUCATION TEACHER Work Phone: [facility] [place] Comment on above: Refill Request Start: 06-08-2023 Refill Astrid Older CONDUIT HELPER .ADAPTIVE PHYSICAL EDUCATION TEACHER Work Phone: [facility] [place] Comment on above: Refill Request Start: 06-07-2023 End: 06-07-2023 Nursing evaluation of patient and report Mi Nurse Work Phone: [facility] [place] Comment on above: Vitamin B 12 deficie ncy (Primary Dx) Start: 05-10-2023 End: 05-10-2023 Nursing evaluation of patient and report Mi Nurse Work Phone: [facility] [place] Comment on above: Vitamin B 12 deficie ncy (Primary Dx) Start: 04-27-2023 End: 04-27-2023 Patient encounter procedure Renetta Christie PA-C Work Phone: [facility] [place] Comment on above: Type 2 diabetes maldonado itus with hyperglycemia, without long-term current use of insulin (HCC) (Primary Dx); Cerebrovascular accident (CVA), unspecified mechanism (HCC); Mixed hyperlipidemia; Essential hypertension Start: 04-26-2023 Telephone encounter Renetta Miranda PA-C Work Phone: [facility] [place] Comment on above: if patient needs lab s done for appt tomorrow Start: 04-12-2023 End: 04-12-2023 Nursing evaluation of patient and report Mi Nurse Work Phone: Family [facility] [place] Comment on above: Vitamin B 12 deficie ncy (Primary Dx) Start: 02-11-2023 End: 02-11-2023 Nursing evaluation of patient and report Mi Nurse Work Phone: [facility] Comment on above: Vitamin B 12 deficie ncy (Primary Dx) Start: 01-14-2023 End: 01-14-2023 Nursing evaluation of patient and report Mi Nurse Work Phone: [facility] Comment on above: Vitamin B12 deficien cy (Primary Dx) Start: 01-10-2023 Refill Alethea Older CONDUIT HELPER .ADAPTIVE PHYSICAL EDUCATION TEACHER Work Phone: [facility] Comment on above: Refill Request Start: 12-17-2022 End: 12-17-2022 Nursing evaluation of patient and report Mi Nurse Work Phone: [facility] Comment on above: Vitamin B12 deficien cy (Primary Dx) Start: 12-09-2022 End: 12-09-2022 Patient encounter procedure Renetta COONEY-C Work Phone: [facility] Comment on above: Type 2 diabetes maldonado itus with hyperglycemia, without long-term current use of insulin (HCC) (Primary Dx); Acute vaginitis; Cerebrovascular accident (CVA), unspecified mechanism (HCC); Dysuria Start: 11-02-2022 Refill Renetta COONEY-C Work Phone: [facility] Comment on above: Refill Request Start: 10-14-2022 End: 10-14-2022 Patient encounter procedure Renetta COONEY-C Work Phone: [facility] Comment on above: Type 2 diabetes maldonado itus with hyperglycemia, without long-term current use of insulin (HCC) (Primary Dx); Essential hypertension; Vitamin B 12 deficiency; Acute vaginitis Start: 10-05-2022 End: 10-05-[address] Jones Velasquez Work Phone: [facility] Work Phone: Start: 10-05-2022 End: 10-05-[address] Jones Velasquez Work Phone: [facility]-Physical Therapy Work Phone: Start: 09-21-2022 Telephone encounter Renetta Miranda PA-C Work Phone: [facility] [place] Comment on above: Results Start: 09-03-2022 End: 09-03-2022 Patient encounter procedure Astrid Micha CONNELLYADAPTIVE PHYSICAL EDUCATION TEACHER Work Phone: Internal Medicine [place] Comment on above: History of recent ho spitalization (Primary Dx); Cerebrovascular accident (CVA), unspecified mechanism (HCC); Weakness of right lower extremity; Urinary frequency; Other fatigue; Blood in stool; Left upper quadrant abdominal tenderness without rebound tenderness; Nausea and vomiting, unspecified vomiting type Start: 08-28-2022 Non-patient / Non-visit Dr. Ron Velasquez Work Phone: [facility] Start: 08-27-2022 Non-patient / Non-visit Dr. Ron Velasquez Work Phone: [facility] Start: 08-27-2022 Non-patient / Non-visit Dr. Ron Velasquez Work Phone: [facility] Start: 08-26-2022 Non-patient / Non-visit Dr. Ron Velasquez Work Phone: [facility] Start: 08-26-2022 Non-patient / Non-visit Dr. Ron Velasquez Work Phone: [facility] Start: 08-25-2022 End: 08-28-2022 Evaluation and management of inpatient Dr. Jones Velasquez Work Phone: [facility]-Progressive Care Unit Start: 08-21-[address] Shane Velasquez Work Phone: [facility]-Physical Therapy Start: 08-12-2022 End: 08-12-[address] Jones Velasquez Work Phone: [facility] Start: 08-10-2022 Refill Astrid Older CONDUIT HELPER .ADAPTIVE PHYSICAL EDUCATION TEACHER Work Phone: Internal [facility] Comment on above: Refill Request disk request Start: 08-04-2022 Telephone encounter Jones ren MD Work Phone: Internal [facility] Comment on above: Medication Problem Start: 07-16-2022 Telephone encounter Astrid Muse CONDUIT HELPER.ADAPTIVE PHYSICAL EDUCATION TEACHER Work Phone: Internal [facility] Comment on above: Results Start: 07-16-2022 End: 07-16-[address] Jones Velasquez Work Phone: [facility]-Outpatient Breast Imaging Start: 07-13-2022 End: 07-13-2022 Subsequent hospital visit by physician [facility] Work Phone: Radiology Comment on above: Acute right-sided lo w back pain with right-sided sciatica [M54.41] Start: 06-29-2022 End: 06-29-2022 Nursing evaluation of patient and report Mi Nurse Work Phone: [facility] Comment on above: Vitamin B12 deficien cy (Primary Dx) Start: 06-18-2022 ambulatory [facility] Comment on above: Population Health Na vigation Outreach ([employer] Care Gaps 4.5.23) Start: 06-04-2022 Telephone encounter Jones ren MD Work Phone: [facility] Comment on above: Medication clarifica tion Start: 06-04-2022 End: 06-04-2022 Patient encounter procedure Astrid Older CONDUIT HELPER.ADAPTIVE PHYSICAL EDUCATION TEACHER Work Phone: Internal [facility] Comment on above: 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); Essential hypertension; Colon cancer screening Start: 06-01-2022 End: 06-01-2022 Nursing evaluation of patient and report Mi Nurse Work Phone: [facility] Comment on above: Vitamin B12 deficien cy (Primary Dx) Start: 05-04-2022 End: 05-04-2022 Nursing evaluation of patient and report Mi Nurse Work Phone: [facility] [place] Comment on above: Vitamin B12 deficien cy (Primary Dx) Start: 05-01-2022 ambulatory [facility] [place] Comment on above: Population Health Na vigation Outreach ([employer] Care Gaps) Start: 04-15-2022 ambulatory Jones [facility] Work Phone: Internal Medicine [place] Comment on above: [place] [facility] eunice Start: 03-24-2022 Telephone encounter Jones ren MD Work Phone: Internal [facility] [place] Comment on above: Orders Start: 03-11-2022 End: 03-11-2022 Nursing evaluation of patient and report Mi Nurse Work Phone: [facility] [place] Comment on above: Vitamin B12 deficien cy (Primary Dx) Start: 02-18-2022 End: 02-18-2022 Patient encounter procedure Jones Velasquez MD Work Phone: [facility] [place] Comment on above: 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 [place] Comment on above: Vitamin B12 deficien cy (Primary Dx) Start: 02-03-2022 ambulatory Jessica [facility] [place] Comment on above: Population Health Na vigation Outreach ([employer] care gap) Start: 01-07-2022 End: 01-07-2022 Nursing evaluation of patient and report Mi Nurse Work Phone: Family [facility] [place] Comment on above: Vitamin B12 [...] and report Mi Nurse Work Phone: Family [facility] [place] Comment on above: Vitamin B12 deficien cy (Primary Dx) Start: 10-23-2021 ambulatory [facility] [place] Comment on above: Population Health Na vigation Outreach ([employer] Care Gaps) Start: 10-13-2021 Telephone encounter Jones ren MD Work Phone: Internal [facility] [place] Comment on above: Results Start: 10-10-2021 End: 10-10-2021 Nursing evaluation of patient and report Mi Nurse Work Phone: Family [facility] [place] Comment on above: Vitamin B12 deficien cy (Primary Dx) Start: 09-12-2021 End: 09-12-2021 Nursing evaluation of patient and report Mi Nurse Work Phone: [facility] [place] Comment on above: Vitamin B12 deficien cy (Primary Dx) Start: 08-15-2021 End: 08-15-2021 Nursing evaluation of patient and report Mi Nurse Work Phone: [facility] Medicine [place] Comment on above: Vitamin B12 deficien cy (Primary Dx) Start: 08-15-2021 End: 08-15-2021 Patient encounter procedure Jones Velasquez MD Work Phone: Internal [facility] [place] Comment on above: Leukocytosis, unspec ified type (Primary Dx); Hypothyroidism, unspecified type; Diabetes mellitus type 2 with complications (HCC) Start: 07-23-2021 Telephone encounter Jones ren MD Work Phone: [facility] Medicine [place] Comment on above: Orders Start: 07-15-2021 End: 07-15-2021 Nursing evaluation of patient and report Mi Nurse Work Phone: [facility] Medicine [place] Comment on above: Vitamin B12 deficien cy (Primary Dx) Start: 07-11-[address] [facility] [place] Comment on above: Population Health Na vigation Outreach ([employer] Care Gap) Start: 06-10-2021 End: 06-10-2021 Nursing evaluation of patient and report Mi Nurse Work Phone: [facility] [place] Comment on above: Vitamin B12 deficien cy (Primary Dx) Procedures Date Procedure Procedure Detail Performing Clinician Start: 09-25-2024 Adult depression scr eening assessment Astrid Micha CONDUIT HELPER.ADAPTIVE PHYSICAL EDUCATION TEACHER Work Phone: Start: 09-08-2024 Urnls dip stick/tabl et reagent auto microscopy ASTRID OLDER SHEEP SORTER-C Work Phone: Start: 09-08-2024 Computed tomography of abdomen and pelvis with intravenous contrast ASTRID MICHA SHEEP SORTER-C Work Phone: Start: 09-08-2024 Estimated creatinine clearance ASTRID MICHA SHEEP SORTER-C Work Phone: Start: 07-25-2024 Urnls dip stick/tabl et rgnt [...] Radex spine lumbosac ral 2/3 views Astrid Muse CONDUIT HELPERBjADAPTIVE PHYSICAL EDUCATION TEACHER Work Phone: Start: 08-15-2021 Adult depression scr eening assessment Mi Nurse Work Phone: Start: 12-18-2020 Mammography Mi Nurse Work Phone: Start: 05-15-2020 Adult depression scr eening assessment Mi Nurse Work Phone: Cholecystectomy ROMULO CECELIA CONDUIT HELPER-ADAPTIVE PHYSICAL EDUCATION TEACHER Plan of Treatment Date Care Activity Detail Author Start: 01-16-[address] [facility] Start: 09-25-2025 Annual PCP Team Director Client Services ramirez Disease Visit Annual PCP Team Chronic Disease Visit [facility] Start: 09-25-2025 Anxiety Screening Anxiety Screening [facility] Start: 09-25-2025 Covid-19 Vaccine () Covid-19 Vaccine () [facility] Comment on above: Postponed from 05/30 (Declined at this time) Start: 09-25-2025 Depression Screening Depression Scre ening [facility] Start: 09-11-2025 Annual PCP Team Director Client Services ramirez Disease Visit Annual PCP Team Chronic Disease Visit [facility] Start: 09-06-2025 Hepatitis B surface antibody level LDL Cholesterol [facility] Start: 07-25-2025 Annual PCP Team Director Client Services ramirez Disease Visit Annual PCP Team Chronic Disease Visit [facility] Start: 07-25-2025 BP Controlled (<130/80) BP Controlle d (<130/80) [facility] Start: 07-12-2025 Glaucoma screening Dilated Retinal E xam [facility] Start: 06-17-2025 COLOGUARD (FIT-DNA) COLOGUARD (FIT-D NA) [facility] Start: 06-17-2025 COLORECTAL CANCER SCREENING COLORECTAL CANCER SCREENING [facility] Start: 06-09-2025 Annual PCP Team Director Client Services ramirez Disease Visit Annual PCP Team Chronic Disease Visit [facility] Start: 06-09-2025 BP Controlled (<130/80) BP Controlle d (<130/80) [facility] Start: 04-28-2025 Annual PCP Team Director Client Services ramirez Disease Visit Annual PCP Team Chronic Disease Visit [facility] Start: 04-28-2025 BP Controlled (<130/80) BP Controlle d (<130/80) [facility] Start: 04-26-2025 Hepatitis B screening Urine Albumin:Creatinine Ratio [facility] Start: 04-26-2025 Hepatitis B surface antibody level LDL Cholesterol [facility] Start: 03-20-2025 BP Controlled (<130/80) BP Controlle d (<130/80) [facility] Start: 03-15-2025 Annual PCP Team Director Client Services ramirez Disease Visit Annual PCP Team Chronic Disease Visit [facility] Start: 03-15-2025 BP Controlled (<130/80) BP Controlle d (<130/80) [facility] Start: 03-09-2025 Hemoglobin A1c measurement HbA1C [facility] Start: 02-01-2025 Annual PCP Team Director Client Services ramirez Disease Visit Annual PCP Team Chronic Disease Visit [facility] Start: 02-01-2025 BP Controlled (<130/80) BP Controlle d (<130/80) [facility] Start: 12-27-2024 End: 12-27-2024 Patient encounter procedure 12/27/2024 9:00 AM EDT Office Visit Internal [facility] [place] [address] [place], [place] [id number] Astrid Muse APRN.ADAPTIVE PHYSICAL EDUCATION TEACHER [address] [place] [address] 3 month follow up [facility] [place] Comment on above: 3 month follow up Start: 12-01-2024 Glaucoma screening Dilated Retinal E xam [facility] Start: 11-06-2024 Influenza vaccination Influenza Vacc ine (#1) [facility] Start: 10-26-2024 Annual PCP Team Mary ramirez Disease Visit Annual PCP Team Chronic Disease Visit [facility] Start: 10-26-2024 BP Controlled (<130/80) BP Controlle d (<130/80) [facility] Start: 10-26-2024 Covid-19 Vaccine ( season) Covid-19 Vaccine ( season) [facility] Comment on above: Postponed from 05/13 (Declined at this time) Start: 10-26-2024 RSV Vaccine (1 - 1-d ose 60+ series) RSV Vaccine (1 - 1-dose 60+ series) [facility] Comment on above: Postponed from 09/29 (Declined at this time) Start: 10-26-2024 RSV Vaccine (1 - 1-d ose 75+ series) RSV Vaccine (1 - 1-dose 75+ series) [facility] Comment on above: Postponed from 09/29 (Declined at this time) Start: 10-24-2024 Hemoglobin A1c measurement HbA1C [facility] Start: 10-09-2024 End: 10-09-2024 Nursing evaluation of patient and report 10/09/2024 11:30 AM EDT Nurse Visit [facility] [place] [address] [facility] [place] [address] Nurse, [place] [address] [facility] [place] [address] B-12 injection [facility] [place] Comment on above: B-12 injection Start: 09-25-2024 End: 09-25-2024 Patient encounter procedure 09/25/2024 1:40 PM EDT Office Visit [facility] [place] [address] [facility] [place] [address] Astrid Muse APRN.ADAPTIVE PHYSICAL EDUCATION TEACHER [address] [facility] [place] [address] Medicare Wellness [facility] [place] Comment on above: Medicare Wellness Start: 09-11-2024 End: 09-11-2024 Nursing evaluation of patient and report 09/11/2024 11:30 AM EDT Nurse Visit [facility] [place] [address] [facility] [place] [address] Nurse, [place] [address] [place] [address] B-12 injection [facility] [place] Comment on above: B-12 injection Start: 09-11-2024 End: 09-11-2024 Patient encounter procedure 09/11/2024 9:40 AM EDT Office Visit [facility] [place] [address] [facility] [place] [address] Astrid Muse APRN.ADAPTIVE PHYSICAL EDUCATION TEACHER [address] [facility] [place] [address] 3 month follow up [facility] [place] Comment on above: 3 month follow up Start: 09-08-2024 [facility] Start: 09-08-2024 Bacteria identified in Urine by Culture Urine Culture [facility] Start: 09-08-2024 End: 12-08-2024 Basic metabolic 2000 panel - Serum or Plasma BASIC METABOLIC PANEL Lab Routine Type 2 diabetes mellitus with hyperglycemia, without long-term current use of insulin (HCC) Essential hypertension Expected: 09/08/2024 (Approximate), Expires: 12/08/2024 [facility] Comment on above: Expected: 09/08/2024 (Approximate), Expires: 12/08/2024 Start: 09-08-2024 End: 12-08-2024 CBC W Auto Differential panel - Blood COMPLETE BLOOD COUNT AND DIFFERENTIAL Lab Routine Type 2 diabetes mellitus with hyperglycemia, without long-term current use of insulin (HCC) Essential hypertension Expected: 09/08/2024 (Approximate), Expires: 12/08/2024 [facility] Comment on above: Expected: 09/08/2024 (Approximate), Expires: 12/08/2024 Start: 09-08-2024 End: 12-08-2024 Hemoglobin A1c in Blood HEMOGLOBIN A1C Lab Routine Type 2 diabetes mellitus with hyperglycemia, without long-term current use of insulin (HCC) Expected: 09/08/2024 (Approximate), Expires: 12/08/2024 [facility] Comment on above: Expected: 09/08/2024 (Approximate), Expires: 12/08/2024 Start: 09-08-2024 End: 12-08-2024 Thyrotropin [Units/volume] in Serum or Plasma THYROID STIMULATING HORMONE Lab Routine Thyroid nodule Expected: 09/08/2024 (Approximate), Expires: 12/08/2024 [facility] Work Phone: Comment on above: Expected: 09/08/2024 (Approximate), Expires: 12/08/2024 Start: 09-08-2024 [facility] Start: 08-14-2024 End: 08-14-2024 Nursing evaluation of patient and report 08/14/2024 11:45 AM EDT Nurse Visit Family [facility] [address] [place] [address] Nurse, [facility] [place] [address] B-12 injection Family Medicine [facility] Comment on above: B-12 injection Start: 07-19-2024 Hemoglobin A1c measurement HbA1C [facility] Start: 07-17-2024 End: 07-17-2024 Nursing evaluation of patient and report 07/17/2024 11:45 AM EDT Nurse Visit Family Medicine [facility] [address] [place] [address] Nurse, [place] [address] [place] [address] B-12 injection Family Medicine [facility] Comment on above: B-12 injection Start: 06-19-2024 End: 06-19-2024 Nursing evaluation of patient and report 06/19/2024 11:45 AM EDT Nurse Visit [facility] [place] [address] [place] [address] Nurse, [place] [address] [place] [address] B-12 injection [facility] [place] Comment on above: B-12 injection Start: 06-09-2024 End: 06-09-2024 Patient encounter procedure 06/09/2024 10:00 AM EDT Office Visit Internal [facility] [place] [address] [facility] [place] [address] Astrid Muse APRN.ADAPTIVE PHYSICAL EDUCATION TEACHER [address] [place] [address] 6 week follow up UTI and jardiance Internal Medicine [facility] Comment on above: 6 week follow up UTI and jardiance Start: 05-30-2024 Covid-19 Vaccine ( season) Covid-19 Vaccine () [facility] Start: 05-22-2024 End: 05-22-2024 Nursing evaluation of patient and report 05/22/2024 11:45 AM EDT Nurse Visit [facility] [place] [address] [place] [address] Nurse, [place] [address] [place] [address] B-12 injection [facility] [place] Comment on above: B-12 injection Start: 04-28-2024 End: 04-28-2024 Patient encounter procedure Internal Medicine [facility] Comment on above: 6 month follow up 6 month follow up; B -12 injection Start: 04-27-2024 Annual PCP Team Director Client Services ramirez Disease Visit Annual PCP Team Chronic Disease Visit [facility] Start: 04-27-2024 BP Controlled (<130/80) BP Controlle d (<130/80) [facility] Start: 04-27-2024 Hemoglobin A1c measurement HbA1C [facility] Start: 04-27-2024 Hepatitis B surface antibody level LDL Cholesterol [facility] Start: 04-10-2024 End: 07-10-2024 CBC panel - Blood by Automated count COMPLETE BLOOD COUNT Lab Routine Essential hypertension Diabetes mellitus type 2 with complications (HCC) Expected: 04/10/2024 (Approximate), Expires: 07/10/2024 [facility] Comment on above: Expected: 04/10/2024 (Approximate), Expires: 07/10/2024 Start: 04-10-2024 End: 07-10-2024 Comprehensive metabolic 2000 panel - Serum or Plasma COMPREHENSIVE METABOLIC PANEL Lab Routine Essential hypertension Mixed hyperlipidemia Diabetes mellitus type 2 with complications (HCC) Expected: 04/10/2024 (Approximate), Expires: 07/10/2024 [facility] Comment on above: Expected: 04/10/2024 (Approximate), Expires: 07/10/2024 Start: 04-10-2024 End: 07-10-2024 Hemoglobin A1c in Blood HEMOGLOBIN A1C Lab Routine Diabetes mellitus type 2 with complications (HCC) Expected: 04/10/2024 (Approximate), Expires: 07/10/2024 [facility] Comment on above: Expected: 04/10/2024 (Approximate), Expires: 07/10/2024 Start: 04-10-2024 End: 07-10-2024 Lipid 1996 panel - Serum or Plasma LIPID PANEL BASIC Lab Routine Mixed hyperlipidemia Expected: 04/10/2024 (Approximate), Expires: 07/10/2024 [facility] Comment on above: Expected: 04/10/2024 (Approximate), Expires: 07/10/2024 Start: 04-10-2024 End: 07-10-2024 Thyrotropin [Units/volume] in Serum or Plasma THYROID STIMULATING HORMONE Lab Routine Hypothyroidism, unspecified type Expected: 04/10/2024 (Approximate), Expires: 07/10/2024 [facility] Comment on above: Expected: 04/10/2024 (Approximate), Expires: 07/10/2024 Start: 04-03-2024 End: 04-03-2024 Patient encounter procedure 04/03/2024 1:00 PM EST Office Visit General Surgery [address] [place] [address] Justin Christopher MD [address] [place] [address] fna left thyroid General Surgery Comment on above: fna left thyroid Start: 03-20-2024 End: 03-20-2024 Patient encounter procedure 03/20/2024 1:15 PM EST Office Visit General Surgery [address] [place] [address] Justin Christopher MD [address] [place] [address] Thyroid nodule [E04.1], 02/08/24, US thyroid, mjs General Surgery Comment on above: Thyroid nodule [E04. 1], 02/08/24, US thyroid, mjs Start: 03-20-2024 End: 03-20-2024 Nursing evaluation of patient and report 03/20/2024 11:45 AM EST Nurse Visit Family [facility] [address] [place] [address] Nurse, [place] [address] [place] [address] B-12 injection Family Medicine [facility] Comment on above: B-12 injection Start: 03-15-2024 End: 06-14-2024 Microalbumin/Creatinine [Mass Ratio] in Urine ALBUMIN/CREATININE RATIO, URINE Lab Routine Diabetes mellitus type 2 with complications (HCC) Expected: 03/15/2024, Expires: 06/14/2024 [facility] Work Phone: Comment on above: Expected: 03/15/2024 , Expires: 06/14/2024 Start: 03-15-2024 End: 06-14-2024 Urinalysis complete panel - Urine URINALYSIS (WITH MICROSCOPIC) WITH CULTURE IF INDICATED Lab Routine Urinary tract infection without hematuria, site unspecified Expected: 03/15/2024, Expires: 06/14/2024 [facility] Comment on above: Expected: 03/15/2024 , Expires: 06/14/2024 Start: 03-15-2024 End: 03-15-2024 Patient encounter procedure 03/15/2024 10:20 AM EST Office Visit Internal [facility] [place] [address] [facility] [place] [address] Astrid Muse APRN.ADAPTIVE PHYSICAL EDUCATION TEACHER [address] [facility] [place] [address] 6 WEEK FOLLOW UP Internal [facility] [place] Comment on above: 6 WEEK FOLLOW UP Start: 03-08-2024 Medicare Advantage A nnual Wellness Visit Medicare Advantage Annual Wellness Visit [facility] Start: 02-23-2024 End: 02-23-2024 Patient encounter procedure General Surgery Comment on above: Thyroid nodule [E04. 1] needs R/S with Jaelyn brewer or Candi, message sent....Thyroid nodule [E04.1], 02/08/24, US thyroid, mjs Start: 02-21-2024 End: 02-21-2024 Nursing evaluation of patient and report 02/21/2024 11:45 AM EST Nurse Visit Family [facility] [place] [address] [facility] [place] [address] Nurse, [place] [address] [facility] [place] [address] B-12 injection [facility] [place] Comment on above: B-12 injection Start: 02-09-2024 End: 05-10-2024 Basic metabolic 2000 panel - Serum or Plasma BASIC METABOLIC PANEL Lab Routine Urinary tract infection without hematuria, site unspecified Hypomagnesemia Expected: 02/09/2024 (Approximate), Expires: 05/10/2024 [facility] Comment on above: Expected: 02/09/2024 (Approximate), Expires: 05/10/2024 Start: 02-09-2024 End: 05-10-2024 Magnesium [Mass/volume] in Serum or Plasma MAGNESIUM Lab Routine Urinary tract infection without hematuria, site unspecified Hypomagnesemia Expected: 02/09/2024 (Approximate), Expires: 05/10/2024 [facility] Comment on above: Expected: 02/09/2024 (Approximate), Expires: 05/10/2024 Start: 02-09-2024 End: 05-10-2024 Urinalysis complete panel - Urine URINALYSIS WITH MICROSCOPIC, REFLEX CULTURE Lab Routine Urinary tract infection without hematuria, site unspecified Hypomagnesemia Expected: 02/09/2024 (Approximate), Expires: 05/10/2024 [facility] Work Phone: Comment on above: Expected: 02/09/2024 (Approximate), Expires: 05/10/2024 Start: 02-08-2024 End: 02-08-2024 Patient encounter procedure 02/08/2024 7:45 AM EST Appointment Radiology [address] [place] [address] Thyroid nodule [E04.1] Radiology Comment on above: Thyroid nodule [E04. 1] Start: 01-24-2024 End: 01-24-2024 Nursing evaluation of patient and report 01/24/2024 1:15 PM EST Nurse Visit Family [facility] [place] [address] [place] [address] Nurse, Marjan [address] [place] [address] B-12 injection [facility] [place] Comment on above: B-12 injection Start: 12-27-2023 End: 12-27-2023 Nursing evaluation of patient and report 12/27/2023 1:15 PM EDT Nurse Visit Family Medicine [facility] [address] [place] [address] Nurse, [place] [address] [place] [address] B-12 injection [facility] [place] Comment on above: B-12 injection Start: 12-10-2023 Annual PCP Team Director Client Services ramirez Disease Visit Annual PCP Team Chronic Disease Visit [facility] Start: 12-10-2023 BP Controlled (<130/80) BP Controlle d (<130/80) [facility] Start: 11-29-2023 End: 11-29-2023 Nursing evaluation of patient and report 11/29/2023 1:15 PM EDT Nurse Visit Family Medicine [facility] [address] [facility] [place], [place] [id number] Nurse, [place] [address] [facility] [place], [place] [phone] B-12 injection Family Medicine [facility] Comment on above: B-12 injection Start: 11-07-2023 Covid-19 Vaccine () Covid-19 Vaccine () [facility] Start: 11-07-2023 Influenza vaccination Influenza Vacc ine (#1) [facility] Start: 11-01-2023 End: 11-01-2023 Nursing evaluation of patient and report 11/01/2023 1:15 PM EDT Nurse Visit Family [facility] [place] [address] [facility] [place] [address] Nurse, [place] [address] [facility] [place], [place] [id number] B-12 injection Family Medicine [facility] Comment on above: B-12 injection Start: 10-27-2023 End: 01-26-2024 Microalbumin/Creatinine [Mass Ratio] in Urine ALBUMIN/CREATININE RATIO, URINE Lab Routine Diabetes mellitus type 2 with complications (HCC) Expected: 10/27/2023, Expires: 01/26/2024 [facility] Work Phone: Comment on above: Expected: 10/27/2023 , Expires: 01/26/2024 Start: 10-27-2023 End: 10-27-2023 Patient encounter procedure 10/27/2023 10:00 AM EDT Office Visit Internal Medicine [facility] [address] [facility] [place] [address] Astrid Muse APRN.ADAPTIVE PHYSICAL EDUCATION TEACHER [address] [facility], [place] [id number] 6 month follow up- labs Internal Medicine [facility] Comment on above: 6 month follow up- l abs Start: 10-26-2023 Hemoglobin A1c measurement HbA1C [facility] Start: 10-25-2023 End: 01-24-2024 Basic metabolic 2000 panel - Serum or Plasma BASIC METABOLIC PANEL Lab Routine Essential hypertension Paroxysmal A-fib (HCC) Diabetes mellitus type 2 with complications (HCC) Expected: 10/25/2023, Expires: 01/24/2024 [facility] Comment on above: Expected: 10/25/2023 , Expires: 01/24/2024 Start: 10-25-2023 End: 01-24-2024 CBC panel - Blood by Automated count COMPLETE BLOOD COUNT Lab Routine Essential hypertension Paroxysmal A-fib (HCC) Diabetes mellitus type 2 with complications (HCC) Expected: 10/25/2023, Expires: 01/24/2024 [facility] Work Phone: Comment on above: Expected: 10/25/2023 , Expires: 01/24/2024 Start: 10-25-2023 End: 01-24-2024 Hemoglobin A1c in Blood HEMOGLOBIN A1C Lab Routine Diabetes mellitus type 2 with complications (HCC) Expected: 10/25/2023, Expires: 01/24/2024 [facility] Comment on above: Expected: 10/25/2023 , Expires: 01/24/2024 Start: 10-25-2023 End: 01-24-2024 Thyrotropin [Units/volume] in Serum or Plasma THYROID STIMULATING HORMONE Lab Routine Hypothyroidism, unspecified type Expected: 10/25/2023, Expires: 01/24/2024 [facility] Comment on above: Expected: 10/25/2023 , Expires: 01/24/2024 Start: 10-15-2023 ANNUAL PCP TEAM OFFICE RECEPTIONIST RAMIREZ DISEASE VISIT ANNUAL PCP TEAM CHRONIC DISEASE VISIT [facility] Start: 10-15-2023 BP CONTROLLED (<130/80) BP CONTROLLE D (<130/80) [facility] Start: 10-04-2023 End: 10-04-2023 Nursing evaluation of patient and report 10/04/2023 1:15 PM EDT Nurse Visit Family Prabhakar Slaughter [address] [place] [address] Nurse, Marjan [address] [place] [id number] B-12 injection Family Medicine [facility] Comment on above: B-12 injection Start: 09-19-2023 ANNUAL PCP TEAM OFFICE RECEPTIONIST RAMIREZ DISEASE VISIT ANNUAL PCP TEAM CHRONIC DISEASE VISIT [facility] Start: 09-19-2023 BP CONTROLLED (<130/80) BP CONTROLLE D (<130/80) [facility] Start: 09-07-2023 End: 09-07-2023 Nursing evaluation of patient and report 09/07/2023 10:45 AM EDT Nurse Visit Family [facility] [place] [address] [place] [address] Nurse, [place] [address] [place] [address] B-12 injection Family Medicine [facility] Comment on above: B-12 injection Start: 09-04-2023 ANNUAL PCP TEAM OFFICE RECEPTIONIST RAMIREZ DISEASE VISIT ANNUAL PCP TEAM CHRONIC DISEASE VISIT [facility] Start: 08-05-2023 ANNUAL PCP TEAM OFFICE RECEPTIONIST RAMIREZ DISEASE VISIT ANNUAL PCP TEAM CHRONIC DISEASE VISIT [facility] Start: 07-05-2023 End: 07-05-2023 Nursing evaluation of patient and report 07/05/2023 1:15 PM EDT Nurse Visit Family Medicine [facility] [address] [place] [address] Nurse, [place] [address] [place] [address] B-12 injection Family Medicine [facility] Comment on above: B-12 injection Start: 06-08-2023 Hemoglobin A1c measurement HbA1C [facility] Start: 06-08-2023 Hemoglobin A1c/Hemoglobin.total in Blood HbA1C [facility] Start: 06-05-2023 ANNUAL PCP TEAM OFFICE RECEPTIONIST RAMIREZ DISEASE VISIT ANNUAL PCP TEAM CHRONIC DISEASE VISIT [facility] Start: 05-22-2023 Hepatitis B surface antibody level LDL CHOLESTEROL [facility] Start: 05-14-2023 Covid-19 Vaccine () Covid-19 Vaccine () [facility] Start: 04-26-2023 End: 07-26-2023 CBC W Auto Differential panel - Blood CBC + DIFF Lab Routine Essential hypertension Mixed hyperlipidemia Vitamin B 12 deficiency Type 2 diabetes mellitus with hyperglycemia, without long-term current use of insulin (HCC) Expected: 04/26/2023, Expires: 07/26/2023 [facility] Work Phone: Comment on above: Expected: 04/26/2023 , Expires: 07/26/2023 Start: 04-26-2023 End: 07-26-2023 Cobalamin (Vitamin B12) [Mass/volume] in Serum or Plasma VITAMIN B12 BLOOD Lab Routine Vitamin B 12 deficiency Expected: 04/26/2023, Expires: 07/26/2023 [facility] Work Phone: Comment on above: Expected: 04/26/2023 , Expires: 07/26/2023 Start: 04-26-2023 End: 07-26-2023 Comprehensive metabolic 2000 panel - Serum or Plasma COMP METABOLIC PANEL Lab Routine Essential hypertension Type 2 diabetes mellitus with hyperglycemia, without long-term current use of insulin (HCC) Expected: 04/26/2023, Expires: 07/26/2023 [facility] Work Phone: Comment on above: Expected: 04/26/2023 , Expires: 07/26/2023 Start: 04-26-2023 End: 07-26-2023 Hemoglobin A1c in Blood HGB A1C Lab Routine Mixed hyperlipidemia Type 2 diabetes mellitus with hyperglycemia, without long-term current use of insulin (HCC) Expected: 04/26/2023, Expires: 07/26/2023 [facility] Work Phone: Comment on above: Expected: 04/26/2023 , Expires: 07/26/2023 Start: 04-26-2023 End: 07-26-2023 Lipid 1996 panel - Serum or Plasma LIPID PANEL BASIC Lab Routine Essential hypertension Mixed hyperlipidemia Type 2 diabetes mellitus with hyperglycemia, without long-term current use of insulin (HCC) Expected: 04/26/2023, Expires: 07/26/2023 [facility] Work Phone: Comment on above: Expected: 04/26/2023 , Expires: 07/26/2023 Start: 04-26-2023 End: 07-26-2023 Thyrotropin [Units/volume] in Serum or Plasma TSH BLD Lab Routine Type 2 diabetes mellitus with hyperglycemia, without long-term current use of insulin (HCC) Paroxysmal A-fib (HCC) Expected: 04/26/2023, Expires: 07/26/2023 [facility] Work Phone: Comment on above: Expected: 04/26/2023 , Expires: 07/26/2023 Start: 03-08-2023 Advance Directive Discussion Advance Directive Discussion [facility] Start: 03-08-2023 Behavioral Health Screening Behavioral Health Screening [facility] Start: 03-08-2023 Depression Assessment Depression Ass essment [facility] Start: 02-18-2023 ANNUAL PCP TEAM OFFICE RECEPTIONIST RAMIREZ DISEASE VISIT ANNUAL PCP TEAM CHRONIC DISEASE VISIT [facility] Start: 02-18-2023 BP CONTROLLED (<130/80) BP CONTROLLE D (<130/80) [facility] Start: 02-17-2023 Glaucoma screening Dilated Retinal E xam [facility] Start: 02-17-2023 Hepatitis C antibody , confirmatory test DILATED RETINAL EXAM [facility] Start: 01-09-2023 Hemoglobin A1c/Hemoglobin.total in Blood HBA1C [facility] Start: 12-19-2022 Hemoglobin A1c/Hemoglobin.total in Blood HBA1C [facility] Start: 12-09-2022 End: 02-08-2023 Bacteria identified in Urine by Culture URINE CULTURE Microbiology Routine Dysuria Expected: 12/09/2022, Expires: 02/08/2023 [facility] Work Phone: Comment on above: Expected: 12/09/2022 , Expires: 02/08/2023 Start: 12-09-2022 End: 02-08-2023 URINALYSIS, DIPSTICK ONLY URINALYSIS, DIPSTICK ONLY Lab Routine Dysuria Expected: 12/09/2022, Expires: 02/08/2023 [facility] Work Phone: Comment on above: Expected: 12/09/2022 , Expires: 02/08/2023 Start: 11-28-2022 End: 01-28-2023 Hemoglobin A1c in Blood HGB A1C Lab Routine Type 2 diabetes mellitus with hyperglycemia, without long-term current use of insulin (HCC) Expected: 11/28/2022 (Approximate), Expires: 01/28/2023 [facility] Work Phone: Comment on above: Expected: 11/28/2022 (Approximate), Expires: 01/28/2023 Start: 11-21-2022 3 comp foot exam completed DIABETIC FOOT EXAM [facility] Start: 11-21-2022 ANNUAL PCP TEAM OFFICE RECEPTIONIST RAMIREZ DISEASE VISIT ANNUAL PCP TEAM CHRONIC DISEASE VISIT [facility] Start: 11-21-2022 BP CONTROLLED (<130/80) BP CONTROLLE D (<130/80) [facility] Start: 11-21-2022 Diabetic foot examination Diabetic F oot Exam [facility] Start: 11-19-2022 Hepatitis B surface antibody level LDL CHOLESTEROL [facility] Start: 11-06-2022 Covid-19 Vaccine () Covid-19 Vaccine () [facility] Start: 11-06-2022 Influenza vaccination INFLUENZA (#1) [facility] Start: 10-05-2022 End: 12-05-2022 ALBUMIN/CREAT RATIO RND UR ALBUMIN/CREAT RATIO RND UR Lab Routine Diabetes mellitus type 2 with complications (HCC) Expected: 10/05/2022 (Approximate), Expires: 12/05/2022 [facility] Work Phone: Comment on above: Expected: 10/05/2022 (Approximate), Expires: 12/05/2022 Start: 10-05-2022 End: 12-05-2022 Basic metabolic 2000 panel - Serum or Plasma BASIC METABOLIC PNL Lab Routine Diabetes mellitus type 2 with complications (HCC) Essential hypertension Expected: 10/05/2022 (Approximate), Expires: 12/05/2022 [facility] Work Phone: Comment on above: Expected: 10/05/2022 (Approximate), Expires: 12/05/2022 Start: 10-05-2022 End: 12-05-2022 CBC W Auto Differential panel - Blood CBC + DIFF Lab Routine Diabetes mellitus type 2 with complications (HCC) Essential hypertension Expected: 10/05/2022 (Approximate), Expires: 12/05/2022 [facility] Work Phone: Comment on above: Expected: 10/05/2022 (Approximate), Expires: 12/05/2022 Start: 10-05-2022 End: 12-05-2022 Hemoglobin A1c in Blood HGB A1C Lab Routine Diabetes mellitus type 2 with complications (HCC) Expected: 10/05/2022 (Approximate), Expires: 12/05/2022 [facility] Work Phone: Comment on above: Expected: 10/05/2022 (Approximate), Expires: 12/05/2022 Start: 09-03-2022 End: 11-03-2022 Amylase [Enzymatic activity/volume] in Serum or Plasma [facility] Work Phone: Comment on above: Expected: 09/03/2022 , Expires: 11/03/2022 Start: 09-03-2022 End: 11-03-2022 Bacteria identified in Urine by Culture URINE CULTURE Microbiology Routine Urinary frequency Expected: 09/03/2022, Expires: 11/03/2022 [facility] Work Phone: Comment on above: Expected: 09/03/2022 , Expires: 11/03/2022 Start: 09-03-2022 End: 11-03-2022 Comprehensive metabolic 2000 panel - Serum or Plasma [facility] Work Phone: Comment on above: Expected: 09/03/2022 , Expires: 11/03/2022 Start: 09-03-2022 End: 11-03-2022 Lipase [Enzymatic activity/volume] in Serum or Plasma [facility] Work Phone: Comment on above: Expected: 09/03/2022 , Expires: 11/03/2022 Start: 09-03-2022 End: 11-03-2022 Urinalysis complete panel - Urine URINALYSIS, WITH MICROSCOPIC Lab Routine Urinary frequency Expected: 09/03/2022, Expires: 11/03/2022 [facility] Work Phone: Comment on above: Expected: 09/03/2022 , Expires: 11/03/2022 Start: 08-30-2022 [facility] Start: 08-29-2022 [facility] Start: 08-28-2022 Patient discharge [facility] Start: 08-26-2022 Following clinical p athway protocol [facility] Start: 08-26-2022 [facility] Start: 08-26-2022 Telepractice consultation [facility] Start: 08-26-2022 [facility] Start: 08-26-2022 Thyroid stimulating hormone measurement [facility] Start: 08-25-2022 Following clinical p athway protocol [facility] Start: 08-25-2022 Assessment of risk o f venous thromboembolism [facility] Start: 08-25-2022 Cardiac monitoring [facility] Start: 08-25-2022 Care regimes management [facility] Start: 08-25-2022 Catheterization of vein [facility] Start: 08-25-2022 Continuous pulse oximetry [facility] Start: 08-25-2022 Elevation of head of bed [facility] [facility] Start: 08-25-2022 Exercises [facility] Start: 08-25-[address] anned interventions [facility] Start: 08-25-2022 Insertion of cathete r into peripheral vein [facility] Start: 08-25-2022 Measuring intake and output [facility] Start: 08-25-2022 Notification of physician [facility] Start: 08-25-2022 Oxygen therapy [facility] Start: 08-25-2022 Providing care accor ding to standard [facility] Start: 08-25-2022 Provision of activit y privileges [facility] Start: 08-25-2022 Referral to occupati onal therapist [facility] Start: 08-25-2022 Referral to service [facility] Start: 08-25-2022 Speech therapy assessment [facility] Start: 08-25-2022 Tobacco use cessatio n education [facility] Start: 08-25-2022 [facility] Start: 08-25-2022 MRI of brain without contrast Brain without Contrast [facility] Start: 08-25-2022 Verification routine [facility] Start: 08-25-2022 Admission procedure [facility] Start: 08-25-2022 Oxygen therapy [facility] Start: 08-25-2022 [facility] Start: 08-21-2022 Hemoglobin A1c/Hemoglobin.total in Blood HBA1C [facility] Start: 08-15-2022 Adult depression scr eening assessment DEPRESSION SCREENING [facility] Start: 08-15-2022 ANNUAL PCP TEAM OFFICE RECEPTIONIST RAMIREZ DISEASE VISIT ANNUAL PCP TEAM CHRONIC DISEASE VISIT [facility] Start: 08-13-2022 Hepatitis B surface antibody level LDL CHOLESTEROL [facility] Start: 05-19-2022 End: 07-19-2022 Hemoglobin A1c in Blood HGB A1C Lab Routine Diabetes mellitus type 2 with complications (HCC) Expected: 05/19/2022, Expires: 07/19/2022 [facility] Work Phone: Comment on above: Expected: 05/19/2022 , Expires: 07/19/2022 Start: 05-14-2022 ANNUAL PCP TEAM OFFICE RECEPTIONIST RAMIREZ DISEASE VISIT ANNUAL PCP TEAM CHRONIC DISEASE VISIT [facility] Start: 05-14-2022 BP CONTROLLED (<130/80) BP CONTROLLE D (<130/80) [facility] Start: 05-13-2022 Hemoglobin A1c/Hemoglobin.total in Blood HBA1C [facility] Start: 04-02-2022 COVID-19 VACCINE (6 - Moderna series) COVID-19 VACCINE (6 - Moderna series) [facility] Start: 03-08-2022 ADVANCE DIRECTIVE DISCUSSION ADVANCE DIRECTIVE DISCUSSION [facility] Start: 03-08-2022 DEPRESSION ASSESSMENT DEPRESSION ASS ESSMENT [facility] Start: 02-20-2022 Hemoglobin A1c/Hemoglobin.total in Blood HBA1C [facility] Start: 02-18-2022 End: 04-20-2022 ALBUMIN/CREAT RATIO RND UR ALBUMIN/CREAT RATIO RND UR Lab Routine Diabetes mellitus type 2 with complications (HCC) Expected: 02/18/2022, Expires: 04/20/2022 [facility] Work Phone: Comment on above: Expected: 02/18/2022 , Expires: 04/20/2022 Start: 12-18-[address] [facility] Start: 12-10-2021 3 comp foot exam completed DIABETIC FOOT EXAM [facility] Start: 12-06-2021 Hepatitis B surface antibody level LDL CHOLESTEROL [facility] Start: 11-13-2021 Hemoglobin A1c/Hemoglobin.total in Blood HBA1C [facility] Start: 11-06-2021 Influenza vaccination INFLUENZA (#1) [facility] Start: 09-22-2021 Hemoglobin A1c/Hemoglobin.total in Blood HBA1C [facility] Start: 09-14-2021 End: 11-14-2021 CBC W Auto Differential panel - Blood CBC + DIFF Lab Routine Leukocytosis, unspecified type Expected: 09/14/2021, Expires: 11/14/2021 [facility] Work Phone: Comment on above: Expected: 09/14/2021 , Expires: 11/14/2021 Start: 09-14-2021 End: 08-15-2022 Thyrotropin [Units/volume] in Serum or Plasma TSH BLD Lab Routine Hypothyroidism, unspecified type Expected: 09/14/2021, Expires: 08/15/2022 [facility] Work Phone: Comment on above: Expected: 09/14/2021 , Expires: 08/15/2022 Start: 09-14-2021 End: 08-15-2022 Thyroxine (T4) free [Mass/volume] in Serum or Plasma T4 FREE/FREE THYROX Lab Routine Hypothyroidism, unspecified type Expected: 09/14/2021, Expires: 08/15/2022 [facility] Work Phone: Comment on above: Expected: 09/14/2021 , Expires: 08/15/2022 Start: 09-14-2021 End: 08-15-2022 Triiodothyronine (T3) Free [Mass/volume] in Serum or Plasma T3 FREE BLD Lab Routine Hypothyroidism, unspecified type Expected: 09/14/2021, Expires: 08/15/2022 [facility] Work Phone: Comment on above: Expected: 09/14/2021 , Expires: 08/15/2022 Start: 07-23-2021 End: 09-22-2021 CBC W Auto Differential panel - Blood CBC + DIFF Lab Routine Essential hypertension Expected: 07/23/2021, Expires: 09/22/2021 [facility] Work Phone: Comment on above: Expected: 07/23/2021 , Expires: 09/22/2021 Start: 07-23-2021 End: 09-22-2021 Comprehensive metabolic 2000 panel - Serum or Plasma COMP METABOLIC PANEL Lab Routine Essential hypertension Mixed hyperlipidemia Expected: 07/23/2021, Expires: 09/22/2021 [facility] Work Phone: Comment on above: Expected: 07/23/2021 , Expires: 09/22/2021 Start: 07-23-2021 End: 09-22-2021 Hemoglobin A1c/Hemoglobin.total in Blood HGB A1C Lab Routine Controlled type 2 diabetes mellitus without complication, without long-term current use of insulin (HCC) Expected: 07/23/2021, Expires: 09/22/2021 [facility] Work Phone: Comment on above: Expected: 07/23/2021 , Expires: 09/22/2021 Start: 07-23-2021 End: 09-22-2021 LIPID PANEL BASIC LIPID PANEL BASIC Lab Routine Mixed hyperlipidemia Expected: 07/23/2021, Expires: 09/22/2021 [facility] Work Phone: Comment on above: Expected: 07/23/2021 , Expires: 09/22/2021 Start: 07-23-2021 End: 09-22-2021 Thyrotropin [Units/volume] in Serum or Plasma TSH BLD Lab Routine Abnormal TSH Expected: 07/23/2021, Expires: 09/22/2021 [facility] Work Phone: Comment on above: Expected: 07/23/2021 , Expires: 09/22/2021 Start: 07-23-2021 End: 09-22-2021 VITAMIN D 25 HYDROXY VITAMIN D 25 HYDROXY Lab Routine Vitamin D deficiency Expected: 07/23/2021, Expires: 09/22/2021 [facility] Work Phone: Comment on above: Expected: 07/23/2021 , Expires: 09/22/2021 Start: 05-15-2021 Adult depression scr eening assessment DEPRESSION SCREENING [facility] Start: 05-02-2021 COVID-19 VACCINE (4 - Booster for Moderna series) COVID-19 VACCINE (4 - Booster for Moderna series) [facility] Start: 03-08-2021 ADVANCE DIRECTIVE DISCUSSION ADVANCE DIRECTIVE DISCUSSION [facility] Start: 03-08-2021 DEPRESSION ASSESSMENT DEPRESSION ASS ESSMENT [facility] Start: 11-05-2020 COLORECTAL CANCER SCREENING COLORECTAL CANCER SCREENING [facility] Start: 11-05-2020 FECAL OCCULT BLOOD FECAL OCCULT BLOO D [facility] Start: 11-01-2020 Hepatitis B screening URINE ALBUMIN:CREATININE RATIO [facility] Start: 03-15-2019 Hepatitis C antibody , confirmatory test DILATED RETINAL EXAM [facility] Start: 2006 Hepatitis B Vaccine (1 of 3 - Risk 3-dose series) Hepatitis B Vaccine (1 of 3 - Risk 3-dose series) [facility] Start: 2006 RSV Vaccine (1 - 1-d ose 60+ series) RSV Vaccine (1 - 1-dose 60+ series) [facility] Start: 09-30-1991 COLOGUARD (FIT-DNA) COLOGUARD (FIT-D NA) [facility] Start: 09-30-[address] [facility] Start: 09-30-[address] COLONOGRAPHY [facility] Start: 09-30-1991 SIGMOIDOSCOPY SIGMOIDOSCOPY [facility] Start: 1964 Anxiety Screening Anxiety Screening [facility] Start: 1964 BP CONTROLLED (<130/80) BP CONTROLLE D (<130/80) [facility] Start: 1964 Depression Screening Depression Scre ening [facility] Bacteria identified in Urine by Culture BACTERIAL CULTURE, URINE Microbiology Routine Urinary frequency Left flank pain 07/25/2024 8:[address] [facility] End: 11-18-2022 CBC panel - Blood by Automated count CBC Lab Routine Diabetes mellitus type 2 with complications (HCC) Every 6 months for 12 Occurrences starting 11/18/2021 until 11/18/2022 [facility] Work Phone: Comment on above: Every 6 months for 1 2 Occurrences starting 11/18/2021 until 11/18/2022 End: 02-18-2023 CBC panel - Blood by Automated count CBC Lab Routine Diabetes mellitus type 2 with complications (HCC) Every 6 months for 12 Occurrences starting 02/18/2022 until 02/18/2023 [facility] Work Phone: Comment on above: Every 6 months for 1 2 Occurrences starting 02/18/2022 until 02/18/2023 COLOGUARD COLOGUARD Lab Ro utine Colon cancer screening Ordered: 06/04/2022 [facility] Work Phone: Comment on above: Ordered: 06/04/2022 End: 11-18-2022 Comprehensive metabolic 2000 panel - Serum or Plasma COMP METABOLIC PANEL Lab Routine Diabetes mellitus type 2 with complications (HCC) Every 6 months for 12 Occurrences starting 11/18/2021 until 11/18/2022 [facility] Work Phone: Comment on above: Every 6 months for 1 2 Occurrences starting 11/18/2021 until 11/18/2022 End: 02-18-2023 Comprehensive metabolic 2000 panel - Serum or Plasma COMP METABOLIC PANEL Lab Routine Diabetes mellitus type 2 with complications (HCC) Every 6 months for 12 Occurrences starting 02/18/2022 until 02/18/2023 [facility] Work Phone: Comment on above: Every 6 months for 1 2 Occurrences starting 02/18/2022 until 02/18/2023 End: 11-18-2022 Hemoglobin A1c in Blood HGB A1C Lab Routine Diabetes mellitus type 2 with complications (HCC) Every 3 months for 24 Occurrences starting 11/18/2021 until 11/18/2022 [facility] Work Phone: Comment on above: Every 3 months for 2 4 Occurrences starting 11/18/2021 until 11/18/2022 End: 11-18-2022 Lipid 1996 panel - Serum or Plasma LIPID PANEL BASIC Lab Routine Diabetes mellitus type 2 with complications (HCC) Every 6 months for 12 Occurrences starting 11/18/2021 until 11/18/2022 [facility] Work Phone: Comment on above: Every 6 months for 1 2 Occurrences starting 11/18/2021 until 11/18/2022 End: 02-18-2023 Lipid 1996 panel - Serum or Plasma LIPID PANEL BASIC Lab Routine Diabetes mellitus type 2 with complications (HCC) Every 6 months for 12 Occurrences starting 02/18/2022 until 02/18/2023 [facility] Work Phone: Comment on above: Every 6 months for 1 2 Occurrences starting 02/18/2022 until 02/18/2023 Lipid 1996 panel - S keith or Plasma [facility] End: 05-15-2023 GISELLE SCREENING GISELLE SCREENING Radiology Routine Breast cancer screening by mammogram 1 Occurrences starting 04/16/2022 until 05/15/2023 [facility] Work Phone: Comment on above: 1 Occurrences starti ng 04/16/2022 until 05/15/2023 Patient Education Stroke: Taking Medicines Stroke: Resources and Support Discharge Instructions for Stroke [facility] Work Phone: Patient referral [facility] Work Phone: End: 11-18-2022 Thyrotropin [Units/volume] in Serum or Plasma TSH BLD Lab Routine Diabetes mellitus type 2 with complications (HCC) Every 3 months for 24 Occurrences starting 11/18/2021 until 11/18/2022 [facility] Work Phone: Comment on above: Every 3 months for 2 4 Occurrences starting 11/18/2021 until 11/18/2022 End: 02-18-2023 Thyrotropin [Units/volume] in Serum or Plasma TSH BLD Lab Routine Diabetes mellitus type 2 with complications (HCC) Every 3 months for 24 Occurrences starting 02/18/2022 until 02/18/2023 [facility] Work Phone: Comment on above: Every 3 months for 2 4 Occurrences starting 02/18/2022 until 02/18/2023 UA DIP, URINE (POC) UA DIP, URIN E (POC) Lab Routine Urinary frequency Ordered: 09/03/2022 [facility] Work Phone: Comment on above: Ordered: 09/03/2022 UA DIP, URINE (POC) UA DIP, URIN E (POC) Lab Routine Urinary frequency Left flank pain Ordered: 07/25/2024 [facility] Work Phone: Comment on above: Ordered: 07/25/2024 Urine culture Urine Culture [facility] Urine culture [facility] End: 08-24-2025 US Kidney - bilateral and Urinary bladder US KIDNEY/BLADDER Radiology Routine Urinary frequency Left flank pain 1 Occurrences starting 07/25/2024 until 08/24/2025 [facility] Comment on above: 1 Occurrences starti ng 07/25/2024 until 08/24/2025 End: 03-03-2025 US Thyroid gland US THYROID/PARATHYROID Radiology Routine Thyroid nodule 1 Occurrences starting 02/02/2024 until 03/03/2025 [facility] Comment on above: 1 Occurrences starti ng 02/02/2024 until 03/03/2025 US Thyroid gland US THYROID/PARA THYROID Radiology Routine Thyroid nodule 02/08/2024 8:05 AM EST [facility] Work Phone: [facility] Immunizations Immunization Date Immunization Notes Care Provider [facility] 12-01-2023 SARS-CoV-2 (COVID-19 ) [id number] ROMULO MARLIN CONDUIT HELPER-ADAPTIVE PHYSICAL EDUCATION TEACHER [facility] 11-25-2023 influenza virus vacc ine, unspecified formulation JUNE MARLIN CONDUIT HELPER-ADAPTIVE PHYSICAL EDUCATION TEACHER [facility] 01-13-2023 SARS-CoV-2 (COVID-19 ) [id number] JUNE MARLIN CONDUIT HELPER-ADAPTIVE PHYSICAL EDUCATION TEACHER [facility] 11-30-2022 influenza virus vacc ine, unspecified formulation Mi Nurse Work Phone: [facility] 12-01-2021 SARS-CoV-2 (CV19)mRNA-[id number] bivalent vac JUNE MARLIN CONDUIT HELPER-ADAPTIVE PHYSICAL EDUCATION TEACHER [facility] 11-21-2021 influenza virus vacc ine, unspecified formulation [facility] CONDUIT HELPER-ADAPTIVE PHYSICAL EDUCATION TEACHER [facility] 07-28-2021 SARS-CoV-2 (COVID-19 ) [id number] [facility] CONDUIT HELPER-ADAPTIVE PHYSICAL EDUCATION TEACHER [facility] 01-01-2021 influenza virus vacc ine, unspecified formulation [facility] CONDUIT HELPER-ADAPTIVE PHYSICAL EDUCATION TEACHER [facility] 12-30-2020 SARS-CoV-2 (COVID-19 ) [id number] [facility] CONDUIT HELPER-ADAPTIVE PHYSICAL EDUCATION TEACHER [facility] Comment on above: Result Comment: 2023: [id number] 08-09-2020 zoster vaccine recombinant Oh Nurse Work Phone: [facility] Work Phone: 06-05-2020 COVID-19 vaccine, fu ll dose (MODERNA) Oh Nurse Work Phone: [facility] 05-08-2020 COVID-19 vaccine, fu ll dose (MODERNA) Oh Nurse Work Phone: [facility] 01-17-2020 tetanus toxoid, redu janelle diphtheria toxoid, and acellular pertussis vaccine, adsorbed Oh Nurse Work Phone: [facility] Work Phone: 12-18-2019 zoster vaccine recombinant Oh Nurse Work Phone: [facility] Work Phone: 11-21-2019 influenza, injectabl e, quadrivalent, preservative free ASTRID M[employer] SHEEP [employer]TER-C Work Phone: [facility] 11-21-2019 influenza, seasonal, injectable Dr. Jones Velasquez Work Phone: [facility] 11-17-2019 influenza virus vacc ine, unspecified formulation [facility] CONDUIT HELPER-ADAPTIVE PHYSICAL EDUCATION TEACHER [facility] 11-21-2018 influenza virus vacc ine, unspecified formulation JUNE MARLIN CONDUIT HELPER-ADAPTIVE PHYSICAL EDUCATION TEACHER [facility] 11-06-2018 influenza, injectabl e, quadrivalent, preservative free ASTRID [employer] Work Phone: [facility] 11-06-2018 influenza, seasonal, injectable Dr. Jones Velasquez Work Phone: [facility] 11-11-2017 influenza virus vacc ine, unspecified formulation JUNE MARLIN CONDUIT HELPER-ADAPTIVE PHYSICAL EDUCATION TEACHER [facility] 11-12-2016 influenza virus vacc ine, unspecified formulation JUNE MARLIN CONDUIT HELPER-ADAPTIVE PHYSICAL EDUCATION TEACHER [facility] 12-06-2015 influenza virus vacc ine, unspecified formulation JUNE MARLIN CONDUIT HELPER-ADAPTIVE PHYSICAL EDUCATION TEACHER [facility] 12-06-2015 influenza, high dose seasonal, preservative-free Oh Nurse Work Phone: [facility] Work Phone: 11-27-2014 influenza virus vacc ine, unspecified formulation JUNE MARLIN CONDUIT HELPER-ADAPTIVE PHYSICAL EDUCATION TEACHER [facility] 11-13-2014 influenza virus vacc ine, unspecified formulation JUNE MARLIN CONDUIT HELPER-ADAPTIVE PHYSICAL EDUCATION TEACHER [facility] 11-13-2014 influenza, high dose seasonal, preservative-free Mi Nurse Work Phone: [facility] 09-25-2014 pneumococcal conjuga te vaccine, 13 valent Mi Nurse Work Phone: [facility] 01-29-2014 pneumococcal polysaccharide vaccine, 23 valent Oh Nurse Work Phone: [facility] Work Phone: 11-29-2012 zoster vaccine, live Mi Nurs e Work Phone: [facility] Work Phone: 01-12-2011 tetanus and diphther ia toxoids, adsorbed, preservative free, for adult use (2 Lf of tetanus toxoid and 2 Lf of diphtheria toxoid) Oh Nurse Work Phone: [facility] Work Phone: Payers Date Payer Category Payer Self-pay [id number] 2021 Medicare AET MEDICARE A ETNA MEDICARE PPO [id number] 2021-Present [phone] [address] [place] [address] PPO [id number] 2021 Medicare AETNA MEDICARE A ETNA MEDICARE PPO [id number] 2021-Present [phone] [address] [place] [address] PPO [id number] 2021 Medicare (Managed Care) [place] [id number] 2021 Private Health Insurance 101 [id number] 1945 Unknown [id number] Unknown [id number] Unknown [id number] Unknown [id number] Social History Date Type Detail Facility Start: 02-15-2017 End: 11-21-2021 Tobacco smoking status NHIS Never smoked tobacco [facility] Work Phone: Start: 05-14-2021 End: 09-25-2024 Alcohol intake Current drinker of alcohol (finding) [facility] Start: 03-21-2019 End: 07-13-2022 History SDOH Alcohol Frequency 2 [facility] Start: 03-21-2019 End: 07-13-2022 History SDOH Alcohol Std Drinks 1 [facility] Start: 10-11-2008 History SDOH Alcohol Comment rarely [facility] Start: 11-07-2019 History SDOH Social Connections Phone 4 [facility] Start: 03-21-2019 End: 07-13-2022 History SDOH Social Connections Synagogue 3 [facility] Start: 03-21-2019 End: 07-13-2022 History SDOH Financial 5 [facility] Start: 11-07-[address] [facility] Start: 1945 Sex Assigned At Not on file [facility] Start: 05-31-2021 End: 11-21-2021 Exposure to SARS-CoV-2 (event) Not sure [facility] Work Phone: Start: 02-15-2017 End: 11-21-2021 Tobacco use and exposure Smokeless tobacco non-user [facility] Work Phone: Start: 08-25-2022 End: 09-03-2022 Tobacco smoking status NHIS Unknown if ever smoked [facility] Start: 02-07-2020 None [facility] Start: 03-15-2019 Spouse/ Significant Other [facility] Start: 1945 Sex Assigned At Female [facility] Start: 08-28-2022 Non-smoker [facility] Start: 07-13-2022 End: 09-10-2024 History of [address] function [facility] Start: 07-13-2022 End: 09-10-2024 Social connection and isolation panel [facility] Active Member of [facility] bs or Organizations Not on file [facility] Are you now , , , , never or living with a partner? [facility] How often to you hav e a drink containing alcohol? Monthly or less [facility] How many standard dr inks containing alcohol do you have on a typical day? [address] [facility] How often do you hav e 6 or more drinks on 1 occasion? Never [facility] Do you feel stress - tense, restless, nervous, or anxious, or unable to sleep at night because your mind is troubled all the time - these days [OSQ] Not at all [facility] (I/We) worried wheth er (my/our) food would run out before (I/we) got money to buy more. Never true [facility] In the past 12 month s, was there a time when you were not able to pay the mortgage or rent on time? No [facility] Do you belong to any clubs or organizations such as sabianist groups, unions, fraternal or athletic groups, or school groups? Yes [facility] Are you now , , , , never or living with a partner? Living with partner [facility] Medical Equipment Procedure Code Equipment Code Equipment Original Text Equipment Identifier Dates [id number], [id number] Start: 09-18-2022 Comment on above: Test blood sugar(s) 2 times daily. Dx: Type 2 DM - Uncontrolled E11.65 Insulin: No Test blood sugar(s) two times times daily. Dx: Other DM Code E11.65 Insulin: No Goals Date Patient Goal Desired Activity /State Functional Status Date Assessment Result Facility 01-21-2024 Functional Status Sequential Com pression Device bilateral knee high removed/off [facility] 01-21-2024 Functional Status Single point cane [facility] 01-21-2024 Functional Status Single level home [facility] 01-21-2024 Functional Status Door open, Non-Slip footwear, Room check performed, Bottler Helper at bedside [facility] 01-21-2024 [place] [place] 01[place] Functional Status Shashank huizar [facility] 01-20-2024 Functional Status [facility] 08-28-2022 Functional status [facility] Work Phone: 09-25-2014 Are you deaf, or do you have serious difficulty hearing No 09/25/2014 9:38 AM Jesenia Diop RN No [facility] 09-25-2014 Are you blind, or do you have serious difficulty seeing, even when wearing glasses No 09/25/2014 9:38 AM Jesenia Diop RN No [facility] 09-25-2014 Do you have serious difficulty walking or climbing stairs No 09/25/2014 9:38 AM Jesenia Diop RN No [facility] 09-25-2014 Do you have difficul ty dressing or bathing No 09/25/2014 9:38 AM Jesenia Diop RN No [facility] 09-25-2014 Because of a physica l, mental, or emotional condition, do you have difficulty doing errands alone such as visiting a physician's office or shopping No 09/25/2014 9:38 AM Jesenia Diop RN No [facility] Mental Status Date Assessment Result Facility 01-21-2024 Mental Status Oriented x 4 [facility] 01-21-2024 Mental Status [facility] 01-20-2024 Mental Status [facility] 08-28-2022 Cognitive function Voice/Name [facility] Work Phone: 08-25-2022 Cognitive function Voice/Name [facility] Work Phone: 09-25-2014 Because of a physica l, mental, or emotional condition, do you have serious difficulty concentrating, remembering, or making decisions No 09/25/2014 9:38 AM Jesenia Diop RN No [facility] Clinical Notes 09-25-2014 to 09-25-2024 Patient InstructionsAstrid Muse APRN.ADAPTIVE PHYSICAL EDUCATION TEACHER - 09/25/2024 1:58 PM EDTPatient InstructionsDaryntiffanieAstrid APRN.CNP 09/11/2024 10:04 AM EDT Note Date & Type Note Facility 09-25-2024 Astrid Tran APRN.CNP - 09/25/2024 2:02 PM EDT Screening schedule The following prevention plan is recommended: Depression Screening Never done Anxiety Screening Never done Diabetic Foot Exam due on 11/21/2022 Medicare Advantage Annual Wellness Visit Never done WHAT YOU CAN DO TO PREVENT FALLS Many falls can be prevented. By making some changes, you can lower your chances of falling. Four things YOU can do to prevent falls for you* and your caregiver 1. Begin a regular exercise program Exercise is one of the most important ways to lower your chances of falling. It makes you stronger and helps you feel better. Exercises that improve balance and coordination (like Toby Chi) are the most helpful. Lack of exercise leads to weakness and increases your chances of falling. Ask your doctor or health care provider about the best type of exercise program for you. 2. Have your health care provider review your medicines Have your doctor or pharmacist review all the medicines you take, even envt-sms-qgfzohk medicines. As you get older, the way medicines work in your body can change. Some medicines, or combinations of medicines, can make you sleepy or dizzy and can cause you to fall. 3. Have your vision checked Have your eyes checked by an eye doctor at least once a year. You may be wearing the wrong glasses or have a condition like glaucoma or cataracts that limits your vision. Poor vision can increase your chances of falling. 4. Make your home safer About half of all falls happen at home. To make your home safer: Remove things you can trip over (like papers, books, clothes, and shoes) from stairs and places where you walk. Remove small throw rugs or use double-sided tape to keep the rugs from slipping. Keep items you use often in cabinets you can reach easily without using a step stool. Have grab bars put in next to your toilet and in the tub or shower. Use non-slip mats in the bathtub and on shower floors. Improve the lighting in your home. As you get older, you need brighter lights to see well. Hang light-weight curtains or shades to reduce glare. Have handrails and lights put in on all staircases. Wear shoes both inside and outside the house. Avoid going barefoot or wearing slippers. For more information, contact: Centers for Disease Control and Prevention www.cdc.gov/injury * This information may not apply if you have certain medical conditions. documented in this encounter [facility] 09-25-2024 History of Present illness Narrative Images from the original note were not included. Britney Canada is a 78 year old female here for a Medicare wellness visit. Medicare Health Risk Assessment General Health Good Exercise: Minutes/Day 20 min Exercise: Days/Week 1 day Alcohol: Daily Use Monthly or less Alcohol: Drinks/Day 1 or 2 Alcohol: 6 or more drinks Never Feel off balance Chronic balance issues, uses a cane - no falls. Concerns: Teeth/Dentures denies Concerns: Sexual function denies Troubled by feelings denies Frequency: Eating healthy diet denies ADLs requiring help denies Safety precautions in home/vehicle Wears seat belt in the car, clutter free floors, grab bars in bathroom, and handrails on steps. Smoke, vape, chews tobacco denies Difficulty hearing denies Difficulty seeing Loss of vision - legally blind Current Providers Specialists: I have reviewed specialist-related care of the patient in the medical record. Ophthalmology: [facility] Medical/Family history review Reviewed and updated problem list, medical/surgical/family/social history, medications, and allergies. Opioid use review Opioid Medications (last 90 days) No data to display Anxiety/Depression screening PHQ-9 Score: 0 . MARK-7 Score: 0 . Recommendation: no further intervention at this time Cognitive screening Mini Cog Score: 4 Cognitive screening reviewed and No further action needed (score 3-5). Functional Observation Was the patient's Timed Up & Go test unsteady or >= 12 seconds? No Advance Care Planning Surrogate decision maker and/or advance care plan documented Measurements BP 116/78 Pulse 74 Resp 16 Wt 80.3 kg (177 lb) SpO2 97% BMI 31.86 kg/m Vision Screening: Follows with optometry/ophthalmology Assessment/Plan Medicare annual wellness visit, subsequent (Z00.00) - Counseled on healthy diet and regular exercise - Fall avoidance information provided - Personalized prevention plan provided - Discussed need for and benefit of weight loss. BMI 31.86 kg/(m^2) documented in this encounter [facility] 09-11-2024 Instructions Astrid Muse APRN.CNP - 09/11/2024 10:26 AM EDT - Continue the Cipro as prescribed for your kidney stones and any associated infection. - Keep taking the tamsulosin (Flomax) daily as directed. - Use a urine strainer (we ll provide one) each time you urinate to catch any passed stones; save any stones you collect so we can analyze them. - Drink plenty of water throughout the day to help flush your urinary system. - Go to the emergency department right away if you experience any of the following: Inability to urinate Severe, worsening pain Large amounts of blood in your urine Fever, chills, or uncontrollable vomiting - We ve sent a urology consult to Dr. Pollock s office in [place]; if you haven t heard from them in a few days, please call her office to schedule your visit. - Return in two weeks for your Medicare wellness visit so we can reassess your symptoms and overall health. documented in this encounter [facility] 09-11-2024 Note HNO ID: [id number] Author: ASTRID MUSE APRN.CNP Service: ? Author Type: Nurse Practitioner Type: Progress Notes Filed: 09/11/2024 16:45 Note Text: CC: Patient presents with: F/U 3 Month HPI Britney Canada is a 78 year old female who presents today for follow up but was also recently in the ER. Recording using [employer] software for draft documentation of the visit was discussed with the patient/authorized dermatology sales representative; all questions welcomed and answered. Patient/authorized dermatology sales representative agreed to proceed Nephrolithiasis: - ED visit 3 days ago for dry heaves and back pain; CT scan revealed two kidney stones (6 mm and 4 mm). - Treated with antiemetics and analgesics in the ED; did not require overnight stay. - Currently taking tamsulosin and Zofran. - Reports mild back pain, managed with Tylenol. - No history of kidney stones. - Denies hematuria or dysuria; reports variable urine output, trying to maintain hydration. - Brother is a retired urologist, providing guidance via the telephone. Diabetes Mellitus: - Currently taking Jardiance. - Recent A1c was 7.0%. - Has not been monitoring blood glucose levels recently; denies hypoglycemic episodes even with decreased intake due to nausea and pain Hypertension: - Recent BP reading was 93/63 mmHg; usual BP is low but not this low. - Quill Worker reduced losartan dosage by half. - Reports improvement in balance since dosage reduction. - Denies dizziness or syncope but notes unsteadiness on feet. - Reports a headache today, believes it is sinus-related. - Denies any chest pain, dyspnea, or new numbness. Recurrent UTIs: - History of recurrent UTIs, though not frequent over the years. The concern was jardiance increasing this but she feels this is not the case Diet: - Trying to eat healthy; finds it challenging at times. REVIEW OF SYSTEMS See HPI PAST MEDICAL HISTORY Diagnosis Date Abnormal mammogram, unspecified Diabetes mellitus without mention of complication High blood pressure High cholesterol Thyroid disease PAST SURGICAL HISTORY Procedure Laterality Date CHOLECYSTECTOMY 1989 RPR UMBILICAL HRNA 5 YRS/> REDUCIBLE STEREOTACTIC CORE BIOPSY 10/18/08 RIGHT BREAST ALLERGIES Darvon [Propoxyphene Hcl] and Penicillins MEDICATIONS ciprofloxacin HCl (CIPRO) 500 mg tabletTake 500 mg by mouth two times a day.Disp: Rfl: ondansetron orally disintegrating (ZOFRAN ODT) 4 mg disintegrating tabletDisp: Rfl: tamsulosin (FLOMAX) 0.4 mgDisp: Rfl: levothyroxine (LEVOXYL) 50 mcg tabletTake 1 tablet by mouth once daily. Take on empty stomach. For ThyroidDisp: 90 tabletRfl: 1 atorvastatin (LIPITOR) 80 mg tabletTake 1 tablet by mouth once daily.Disp: 90 tabletRfl: 3 clopidogrel (PLAVIX) 75 mg tabletTake 1 tablet by mouth once daily. Take 75 mg by mouth once daily.Disp: 90 tabletRfl: 3 losartan (COZAAR) 50 mg tabletTake 1 tablet by mouth once daily.Disp: 90 tabletRfl: 3 (Patient taking differently: Take 25 mg by mouth once daily. Changed at [facility] ER 09/08) metFORMIN ER (GLUCOPHAGE XR) 500 mg 24 hr tabletTake 2 tablets by mouth two times a day with meals.Disp: 360 tabletRfl: 3 metoprolol tartrate, short acting, (LOPRESSOR) 25 mg tabletTake 25 mg by mouth twice daily.Disp: Rfl: apixaban (ELIQUIS) 5 mg tab(s)Take by mouth twice daily.Disp: Rfl: LancetsTest blood sugar(s) 1 times daily. Dx: Type 2 DM - Controlled E11.9 Insulin: NoDisp: 100 EachRfl: 11 blood sugar diagnostic (BLOOD GLUCOSE TEST) test stripTest blood sugar(s) 1 times daily. Dx: Type 2 DM - Controlled E11.9 Insulin: NoDisp: 50 StripRfl: 11 empagliflozin (JARDIANCE) 25 mg tabletTake 1 tablet by mouth once daily. Take 1 tablet once daily in the morningDisp: 90 tabletRfl: 3 terconazole vaginal cream (TERAZOL) 0.8 % vaginal creamUse 1 Applicator vaginally daily at bedtime.Disp: 20 gRfl: 0 (Patient not taking: Reported on 07/25/2024) cyanocobalamin 1,000 mcg/mLInject 1 mL intramuscularly once every month.Disp: 1 mLRfl: 12 blood sugar diagnostic (BLOOD GLUCOSE TEST) test stripTest blood sugar(s) 2 times daily. Dx: Type 2 DM - Uncontrolled E11.65 Insulin: NoDisp: 100 StripRfl: 5 Lancets lancetsTest blood sugar(s) two times times daily. Dx: Other DM Code E11.65 Insulin: NoDisp: 100 EachRfl: 11 fluticasone (FLONASE) 50 mcg/actuation nasal sprayUse 2 [...] rarely Drug use: No PHYSICAL EXAM BP 112/80 Pulse 74 Temp 36.4 ?C (97.5 ?F) Resp 18 Wt 82.1 kg (181 lb) SpO2 93% BMI 32.58 kg/m? General Appearance: tired and ill (more content not included)... [facility] 09-11-2024 History of Present illness Narrative CC: Patient presents with: F/U 3 Month HPI Britney Canada is a 78 year old female who presents today for follow up but was also recently in the ER. Recording using [employer] software for draft documentation of the visit was discussed with the patient/authorized dermatology sales representative; all questions welcomed and answered. Patient/authorized dermatology sales representative agreed to proceed Nephrolithiasis: - ED visit 3 days ago for dry heaves and back pain; CT scan revealed two kidney stones (6 mm and 4 mm). - Treated with antiemetics and analgesics in the ED; did not require overnight stay. - Currently taking tamsulosin and Zofran. - Reports mild back pain, managed with Tylenol. - No history of kidney stones. - Denies hematuria or dysuria; reports variable urine output, trying to maintain hydration. - Brother is a retired urologist, providing guidance via the telephone. Diabetes Mellitus: - Currently taking Jardiance. - Recent A1c was 7.0%. - Has not been monitoring blood glucose levels recently; denies hypoglycemic episodes even with decreased intake due to nausea and pain Hypertension: - Recent BP reading was 93/63 mmHg; usual BP is low but not this low. - Quill Worker reduced losartan dosage by half. - Reports improvement in balance since dosage reduction. - Denies dizziness or syncope but notes unsteadiness on feet. - Reports a headache today, believes it is sinus-related. - Denies any chest pain, dyspnea, or new numbness. Recurrent UTIs: - History of recurrent UTIs, though not frequent over the years. The concern was jardiance increasing this but she feels this is not the case Diet: - Trying to eat healthy; finds it challenging at times. REVIEW OF SYSTEMS See HPI PAST MEDICAL HISTORY Diagnosis Date Abnormal mammogram, unspecified Diabetes mellitus without mention of complication High blood pressure High cholesterol Thyroid disease PAST SURGICAL HISTORY Procedure Laterality Date CHOLECYSTECTOMY 1989 RPR UMBILICAL HRNA 5 YRS/> REDUCIBLE STEREOTACTIC CORE BIOPSY 10/18/08 RIGHT BREAST ALLERGIES Darvon [Propoxyphene Hcl] and Penicillins MEDICATIONS ciprofloxacin HCl (CIPRO) 500 mg tablet^Take 500 mg by mouth two times a day.^Disp: ^Rfl: ondansetron orally disintegrating (ZOFRAN ODT) 4 mg disintegrating tablet^^Disp: ^Rfl: tamsulosin (FLOMAX) 0.4 mg^^Disp: ^Rfl: levothyroxine (LEVOXYL) 50 mcg tablet^Take 1 tablet by mouth once daily. Take on empty stomach. For Thyroid^Disp: 90 tablet^Rfl: 1 atorvastatin (LIPITOR) 80 mg tablet^Take 1 tablet by mouth once daily.^Disp: 90 tablet^Rfl: 3 clopidogrel (PLAVIX) 75 mg tablet^Take 1 tablet by mouth once daily. Take 75 mg by mouth once daily.^Disp: 90 tablet^Rfl: 3 losartan (COZAAR) 50 mg tablet^Take 1 tablet by mouth once daily.^Disp: 90 tablet^Rfl: 3 (Patient taking differently: Take 25 mg by mouth once daily. Changed at [facility] ER 09/08) metFORMIN ER (GLUCOPHAGE XR) 500 mg 24 hr tablet^Take 2 tablets by mouth two times a day with meals.^Disp: 360 tablet^Rfl: 3 metoprolol tartrate, short acting, (LOPRESSOR) 25 mg tablet^Take 25 mg by mouth twice daily.^Disp: ^Rfl: apixaban (ELIQUIS) 5 mg tab(s)^Take by mouth twice daily.^Disp: ^Rfl: Lancets^Test blood sugar(s) 1 times daily. Dx: Type 2 DM - Controlled E11.9 Insulin: No^Disp: 100 Each^Rfl: 11 blood sugar diagnostic (BLOOD GLUCOSE TEST) test strip^Test blood sugar(s) 1 times daily. Dx: Type 2 DM - Controlled E11.9 Insulin: No^Disp: 50 Strip^Rfl: 11 empagliflozin (JARDIANCE) 25 mg tablet^Take 1 tablet by mouth once daily. Take 1 tablet once daily in the morning^Disp: 90 tablet^Rfl: 3 terconazole vaginal cream (TERAZOL) 0.8 % vaginal cream^Use 1 Applicator vaginally daily at bedtime.^Disp: 20 g^Rfl: 0 (Patient not taking: Reported on 07/25/2024) cyanocobalamin 1,000 mcg/mL^Inject 1 mL intramuscularly once every month.^Disp: 1 mL^Rfl: 12 blood sugar diagnostic (BLOOD GLUCOSE TEST) test strip^Test blood sugar(s) 2 times daily. Dx: Type 2 DM - Uncontrolled E11.65 Insulin: No^Disp: 100 Strip^Rfl: 5 Lancets lancets^Test blood sugar(s) two times times daily. Dx: Other DM Code E11.65 Insulin: No^Disp: 100 Each^Rfl: 11 fluticasone (FLONASE) 50 mcg/actuation nasal spray^Use 2 [...] rarely Drug use: No PHYSICAL EXAM BP 112/80 Pulse 74 Temp 36.4 C (97.5 F) Resp 18 Wt 82.1 kg (181 lb) SpO2 93% BMI 32.58 kg/m General Appearance: tired and ill appearing, in no acute distress, alert Lungs: Lungs clear to auscultation. No wheezing, rhonchi, rales. Heart: RRR without murmur, gallop, or rubs. No ectopy Health maintenance reviewed with patient: Depression Screening Never done Anxiety Screening Never done Diabetic Foot Exam due on 11/21/2022 Medicare Advantage Annual Wellness Visit Never done Covid-19 Vaccine( season) due on 05/30/2024 RSV Vaccine(1 - 1-dose 75+ series) due on 10/26/2024 Influenza Vaccine(1) due on 11/06/2024 HbA1C due on 03/09/2025 Urine Albumin:Creatinine Ratio due on 04/26/2025 Dilated Retinal Exam due on 07/12/2025 LDL Cholesterol due on 09/06/2025 Annual PCP Team Chronic Disease Visit due on 09/11/2025 DTaP,Tdap,Td Vaccine(2 - Td or Tdap) due on 01/16/2030 Bone Density Screening Completed Advance Directive Discussion Completed Hepatitis C Screening Completed Shingrix Vaccine Completed Pneumococcal Vaccine: 50+ Completed Mammogram Screening Discontinued Colorectal Cancer Screening Discontinued DATA REVIEWED: Outside chart from [facility] reviewed. Labs: (09/09) - Hemoglobin A1c: 7 - Lipid Panel: - Total Cholesterol: 123 mg/dL - HDL: 33 mg/dL - LDL: 65 mg/dL - Triglycerides: 139 mg/dL Imaging: (09/08) CT Abdomen/Pelvis: - 6 mm and 4 mm nephroliths - Hydronephrosis Assessment/Plan 1. Nephrolithiasis (N20.0) - Recent ER visit revealed two kidney stones: 6 mm and 4 mm, with associated hydronephrosis. - Currently on tamsulosin, Cipro, and Zofran. - Referred to Dr. Eldridge, a urogynecologist at [facility], for further evaluation and management. - Advised to monitor for inability to urinate, severe pain, hematuria, fever, chills, abdominal pain, and vomiting; instructed to return to the ER if these symptoms occur. - Provided with a urine strainer to catch stones for analysis to determine etiology and prevent recurrence. - Follow-up in two weeks to assess progress and perform Medicare wellness check. 2. Type 2 diabetes mellitus with hyperglycemia, without long-term current use of insulin (HCC) (E11.65) - Hemoglobin A1c is 7.0%, indicating good glycemic control. - Currently on Jardiance; discussed potential need to discontinue due to recurrent UTIs, which can contribute to nephrolithiasis. - Advised to monitor blood glucose levels, especially during episodes of nausea and decreased oral intake. - Will reassess Jardiance use after stone analysis results. 3. Essential (primary) hypertension (I10) - Blood pressure today is 112/80 mmHg. - Recent adjustment to losartan dosage by enterprise software engineer due to hypotension (93/63 mmHg). - No current symptoms of dizziness or syncope; patient reports improved balance. - Continue current antihypertensive regimen; monitor blood pressure regularly. Prescription instructions reviewed with patient as applicable. Potential red flag symptoms discussed with the patient. Reviewed appropriate action plan to take if red flag symptoms occur. Patient agreeable to treatment plan. Astrid Muse APRN.CNP documented in this encounter [facility] 09-08-2024 Discharge summary [facility] 09-08-2024 Discharge summary Note Date/Time September 08, 2024 2:27pm [facility] Medical Records Department [address] [place] [address] Emergency Department Summary 09/08/24 MR#: [id number] Acct: [id number] Name: BRITNEY CANADA Rep #:[id number] : 1945 78 From: Karl Wall DO PCP: LAURA MOON Status:REG ER Location: ED ADDENDUM by Dr. Karl Wall DO on 09/08/24 at 1427 I went back in and reevaluate the patient and she states that she has not had penicillin since a child therefore we will give her a dose of Rocephin here prior to discharge not the oral ciprofloxacin with the oral ciprofloxacin will bili sent to the pharmacy still. 09/08/24 142<Electronically signed by Karl Wall DO> Cosigner Signature (if applicable): cc: SHEEP SORTER-C ASTRID MUSE ~* Signed HPI History of Present Illness Chief Complaint: Flank Pain Narrative Narrative: Patient is a 78-year-old female with past medical history of hypertension, diabetes, CVA, paroxysmal atrial flutter on Eliquis who presented to the emergency department the chief complaint of left flank pain. Patient states that this developed last night and persisted this morning therefore she came here for further evaluation management. Patient states that she did not know if she had a urinary tract infection therefore she came here for further evaluationmanagement. Patient denies any recent sick contacts. Patient states that she does have nausea and dry heaves. Patient denies any history of smoking [facility] Medical History History of hypertension History of diabetes mellitus History of stroke Receptive aphasia Expressive aphasia Hypothyroidism Nonobstructive atherosclerosis of coronary artery Nonsustained paroxysmal ventricular tachycardia Paroxysmal atrial flutter Mitral valve annular calcification History of non-ST elevation myocardial infarction (NSTEMI) (02/06/20) Essential (primary) hypertension CVA (cerebral vascular accident) Visual changes Hyperlipidemia Type 2 diabetes mellitus Home Medications ?Medication ?Instructions ?Recorded ?Last Taken ?Type atorvastatin 80 mg tablet 80 mg PO QHS lower cholester ol 08/26/22 Unknown History clopidogrel 75 mg tablet 75 mg PO DAILY 30 days #30 t abs 08/28/22 Unknown Rx empagliflozin 25 mg tablet 25 mg PO DAILY 06/03/24 Unk nown History (Jardiance) apixaban 5 mg tablet (Eliquis) 5 mg PO BID #180 TABLET S 09/06/24 Unknown Rx levothyroxine 50 mcg tablet 50 mcg PO QDAY disorder of thyroid 09/06/24 Unknown History gland losartan 25 mg tablet 25 mg PO DAILY high bp #90 t abs 09/06/24 Unknown Rx metformin 500 mg tablet,extended 1,000 mg PO BID dm Unknown History release 24 hr metoprolol tartrate 25 mg tablet 25 mg PO BID #180 tab s 09/06/24 Unknown Rx ciprofloxacin HCl 500 mg tablet 500 mg PO BID 5 days # 10 tabs 09/08/24 Unknown Rx ondansetron 4 mg disintegrating 4 mg PO Q6H PRN nausea and 09/08/24 Unknown Rx tablet vomiting #20 tabs oxycodone-acetaminophen 5 mg-325 1 tab PO Q6H PRN pain 3 days #12 09/08/24 Unknown Rx mg tablet (Endocet) tabs tamsulosin 0.4 mg capsule 0.4 mg PO DAILY #14 caps 06/30 Unknown Rx Allergy/AdvReac Type Severity Reaction Status Date / Time Penicillins Allergy Rash Verified 09/08/24 10:05 propoxyphene (From Darvon) AdvReac Nausea/Vom/ Verified 09/08/24 10:05 Diarrhea Family History Father Myocardial infarction Brother Myocardial infarction Mother CVA (cerebral vascular accident) Heart disease Grandmother Myocardial infarction Uncle Myocardial infarction Surgical History History of cataract extraction History of left heart catheterization (04/01/20) History of cholecystectomy History of hernia repair Social History Smoking Status: Never smoker Electronic Cigarette Use: not used second hand exposure: Yes alcohol intake: current alcohol intake frequency: holidays/special occasions only Alcohol type: wine substance use type: does not use ROS ROS ED ROS Narrative Constitutional: Denies fever, chills, headaches Cardiovascular: Denies chest pain Respiratory: Shortness of breath Abdomen: Complains of dry heaves as noted above denies diarrhea denies abdominalpain : Denies painful urination, hematuria or polyuria Neurological: Denies numbness, wheeze, tingling Musculoskeletal: Complains of left back pain as noted above Skin: Denies any rashes or lesions EXAM Physical Exam Narrative Exam Narrative: General: Patient was lying in bed rest comfortably did not appear to be acute distress Head: Atraumatic, normocephalic Eyes: PERRL bilaterally, EOMI bilateral, no conjunctival injection noted Neck: Soft, supple, trachea midline Cardiovascular: Regular rate and rhythm Respiratory: Clear to auscultation bilaterally Abdomen: Soft, nondistended, tenderness palpation left lower quadrant no reboundor guarding on exam Musculoskeletal: No CVA tenderness noted bilaterally, no midline tenderness palpation midline of the thoracic lumbar spine Extremities: +5/5 strength noted in the bilateral upper and lower extremities, radial pulses +2/4 in the bilateral extremities Neurological: Patient following commands knew that she was at [facility] year is 2024 Skin: Warm, dry contact no rashes or lesions noted Const Vital Signs: 09/08/24 10:05 09/08/24 12:04 Temperature 97.7 F L Temperature Source Oral Pulse Rate 64 84 Respiratory Rate 16 16 Blood Pressure 103/51 L 110/55 L Blood Pressure Mean 68 73 Pulse Ox 100 99 Oxygen Delivery Method Room Air MDM MDM MDM Narrative Medical decision making narrative: Patient is a 78-year-old female who presents to the emerged part with chief complaint of left flank pain. On the differential diagnose includes but not limited to UTI, pyelonephritis, urolithiasis, infected stone, diverticulitis. Once workup is obtained reviewed she will be reevaluated. Patient will be givenfluids morphine Zofran. Patient's CBC reviewed showed a white blood count of 11,000, hemoglobin is 12.1,platelet count was 456. Patient sodium was 140, potassium normal at 4.7, creatinine was 0.74. Patient's AST and ALT are 23 and 15 respectively patient'surinalysis showed positive nitrates 500 leukocyte esterase greater than 100 white cells with rare bacteria. Patient will be given a dose of ciprofloxacin here in the emergency department she will be given a prescription for this. Patient's urine will be sent for culture. Patient CT abdomen pelvis with IV contrast reviewed and showed a 6 mm and 4 mm obstructive stone at the distal left ureter and UVJ respectively with associated moderate hydro and perinephric stranding. No urology on-call today or for the month of September Patient is feeling much better she would like to go home at this point time. Patient be placed on ciprofloxacin with instructions to follow-up with urology in the outpatient setting. Will be given first dose here in the emergency department. She will be encouraged to return with worsening symptoms or any concerns. She will be given prescriptions also for Endocet and Zofran as well as Flomax she was advised to also use Tylenol for mild to moderate pain. Her family numbers at bedside also agreeable this plan all course concerns answered she was discharged home in stable condition. Lab Data Labs: Laboratory Results - last 24 hr 09/08/24 09/08/24 10:35 13:10 WBC 11.4 H RBC 4.47 Hgb 12.1 Hct 37.7 MCV 84.3 MCH 27.1 MCHC 32.1 RDW Std Deviation 48.9 H RDW Coeff of Landy 15.8 H Plt Count 456 H MPV 9.8 Immature Gran % (Auto) 0.300 Neut % (Auto) 84.5 H Lymph % (Auto) 10.2 L [place] % (Auto) 4.6 Eos % (Auto) 0.0 Baso % (Auto) 0.4 Absolute Neuts (auto) 9.7 H Absolute Lymphs (auto) 1.17 Nucleated RBC % 0 Sodium 140 Potassium 4.7 Chloride 103 Carbon Dioxide 22.9 Anion Gap 14 BUN 15 Creatinine 0.74 Estim Creat Clear Calc 59.83 Est GFR (MDRD) Non-Af 84 BUN/Creatinine Ratio 20.2 H Glucose 148 H Calcium 9.9 Total Bilirubin 0.62 AST 23 ALT 15 Alkaline Phosphatase 67 Total Protein 7.1 Albumin 4.2 Globulin 3.0 Albumin/Globulin Ratio 1.4 Urine Color Yellow Urine Clarity Cloudy Urine pH 5.0 Ur Specific [place]rehan 1.010 Urine Protein 30 H Urine Glucose (UA) 1000 H Urine Ketones Negative Urine Occult Blood 150 H Urine Nitrite Positive H Urine Bilirubin Negative Urine Urobilinogen Normal Ur Leukocyte Esterase 500 H Urine RBC 0 SEEN Urine WBC >100 SEEN Ur Squamous Epith Cells 0 SEEN Urine Bacteria RARE Urine Mucus 0 SEEN Radiography Diagnostic Testing: Clinical Impression(s) from Imaging Studies Abdomen/Pelvis CT 09/08/24 11:19 IMPRESSION: 6 mm and 4 mm obstructive stones at the distal left ureter and UVJ, respectively, with associated moderate hydronephrosis and perinephric stranding. Reading Location: [facility] Discharge Plan Triage Chief Complaint: Flank Pain ED Provider: Karl Wall Dx/Rx/DC Orders Clinical Impression: Urolithiasis, Left flank pain Prescriptions: New oxycodone-acetaminophen [Endocet] 5-325 mg tablet 1 tab PO Q6H PRN (Reason: pain) 3 Days Qty: 12 0RF ondansetron 4 mg tablet,disintegrating 4 mg PO Q6H PRN (Reason: nausea and vomiting) Qty: 20 0RF tamsulosin 0.4 mg capsule 0.4 mg PO DAILY Qty: 14 0RF ciprofloxacin HCl 500 mg tablet 500 mg PO BID 5 Days Qty: 10 0RF No Action Jardiance 25 mg tablet 25 mg PO DAILY levothyroxine 50 mcg tablet 50 mcg PO QDAY losartan 25 mg tablet 25 mg PO DAILY Qty: 90 3RF metoprolol tartrate 25 mg tablet 25 mg PO BID Qty: 180 3RF Eliquis 5 mg tablet 5 mg PO BID Qty: 180 3RF metformin 500 mg tablet extended release 24 hr 1,000 mg PO BID atorvastatin 80 mg tablet 80 mg PO QHS clopidogrel 75 mg Tablet 75 mg PO DAILY 30 Days Qty: 30 0RF Primary Care Provider: ASTRID MUSE Referrals: Aretha Pollock MD [Med Staff - Active Staff] - ASTRID MUSE NP-C [Primary Care Provider] - Activity Restrictions/Additional Instructions: Take antibiotics as prescribed use other prescriptions as prescribed use the Endocet for severe pain make sure you take a Zofran with this as this will upsetyour stomach. Use Tylenol for mild to moderate pain. Follow-up with the urologist I referred to. Return with worsening symptoms or other concerns. Your CT scan did show evidence of kidney stones. Print Language: Latvian Disposition Disposition: Home, Self Care What to do if you have Problems For any increased pain, shortness of breath, bleeding, nausea or vomiting, chestpain, or any unexpected problems, contact your Primary Care Provider. Call [employer] [facility] ([phone]) or report to the closest Emergency Room. Call 911 if necessary. 09/08/24 7689 <Electronically signed by Karl Wall DO> Cosigner Signature (if applicable): CC: SHEEP SORTER-C ASTRID MUSE ~ Signed [facility] Work Phone: 1(627) 518-405907-04-2025 Radiology Diagnostic study note [facility] Imaging Services [address] [place] [address] Abdomen/Pelvis W IV Cont ONLY MR#: [id number] Acct: [id number] Name: BRITNEY CANADA Rep #: [id number] : 1945 F 78 From: Faviola Leyva MD PCP: ASTRID MUSE, SHEEP SORTER-C Status: REG ER Study:Abdomen/Pelvis W IV Cont ONLY Date of E xam: 09/08/24 Exam# [id number] Ordering Dr: Zulma Wall DO PROCEDURE: ABDOMEN/PELVIS W IV CONT ONLY 09/08/2024 REASON FOR EXAM: L FLANK AND LLQ PAIN TECHNIQUE: ABDOMEN/PELVIS W IV CONT ONLY Coronal and Sagittal reconstruction series were provided. CONTRAST: 100 mL of Isovue 370 One or more dose reduction techniques were used (e.g., Automated exposure control, adjustment of the mA and/or kV according to patient size, use of iterative reconstruction technique. RADIATION DOSE SUMMARY: DLP: 1066 mGycm COMPARISON: 03/15/21 FINDINGS: Limited sections of the lung bases demonstrate no focal pulmonary mass or consolidations. Bibasilarsubsegmental atelectasis. The liver, spleen, pancreas, and both adrenal glands demonstrate no acute findings. The gallbladder is surgically absent. Small hiatal hernia; otherwise unremarkable stomach. The small bowel loops are not dilated. The appendix is normal. No colonic obstruction. There is no free air or significant free fluid. 6 mm and 4 mm obstructive stones at the distal left ureter and UVJ, respectively, with associated moderate hydronephrosis and perinephric stranding. The right collecting system is unremarkable. The urinary bladder is partially distended. The pelvic structures are intact. There is no solid pelvic mass. No significant lymphadenopathy. The aorta and IVC demonstrate no acute findings. moderate atherosclerosis of the abdominal vasculature. Visualized osseous structures demonstrate no acute abnormality. CT/Abdomen/Pelvis W IV Cont ONLY IMPRESSION: 6 mm and 4 mm obstructive stones at the distal left ureter and UVJ, respectively, with associated moderate hydronephrosis and perinephric stranding. Reading Location: [id number] CC: LAURA MUSE; Dr. Karl Wall, DO ~ Spa Associate: Signed [facility]07-02-2025 Evaluation note* Diagnosis Onset Date Resolution Status Admit Date CVA (cerebral vascular accident) acu te September 06, 2024 7:55am Hyperlipidemia chronic September 06, 2024 7:55am Nonobstructive atheroscleros is of coronary artery chronic September 06 7:55am Essential (primary) hypertension ivana ctive September 06, 2024 7:55am Paroxysmal atrial flutter inactive September 06, 2024 7:55am [facility] Work Phone: [phone]) 794-621906-11-2025 Telephone encounter Note* Telephone Encounter - Tereza Leung MA - 08/16/2024 2:18 PM EDT Patient has been identified by [...] Please advise. Thank you. Tereza Leung MA. [facility]06-11-2025 Miscellaneous Notes* Telephone Encounter - Tereza Leung MA - 08/16/2024 2:18 PM EDT Patient has been identified by [...] you. Tereza Leung MA. documented in this encounterSt. [facility]25 NoteHNO ID: [id number] Author: ?, ?, ? Service: ? Author Type: LICENSED NURSE Type: Progress Notes Filed: 08/14/2024 11:43 Note Text: Patient presents for B-12 injection. Denies any problems at this time. Patient instructed on any SE of medication, verbalized understanding and agreed to proceed with treatment. Tolerated injection well. [facility] History of Present illness Narrative* AGUEDA SABILLON - 08/14/2024 11:35 AM EDT Patient presents for B-12 injection. Denies any problems at this time. Patient instructed on any SEof medication, verbalized understanding and agreed to proceed with treatment. Tolerated injection well. Agueda Sabillon LPN documented in this encounterSt. [facility]2025 NoteHNO ID: [id number] Author: JONES VELASQUEZ MD Service: ? Author Type: Physician Type: Progress Notes Filed: 07/25/2024 09:12 Note Text: Reason for Visit UTI DANIELA Tan is [...] with a UTI after a flight to [place] during which she did not drink enough [...] patient to schedule if pain persists. 3. group home (current) use of oral hypoglycemic drugs (Z79.84) Currently on Jardiance, which may increase susceptibility to UTIs. Patient has discontinued Jardiance since July 23 due to concerns about recurrent UTIs. - Discussed the potential link between Jardiance and increased UTI risk. - Advised patient to monitor for any recurrence of UTI symptoms. Voice recognition softwar (more content not included)...[facility]05-20-2025 History of Present illness Narrative* Jones Velasquez MD - 07/25/2024 9:03 AM EDT Reason for Visit UTI HPI Britney is [...] with a UTI after a flight to [place] during which she did not drink enough [...] if symptoms worsen, such as fever, increased hematuria,or severe discomfort or if on Jardiance as it cane worse the issues. - Discussed the protective mechanisms of the urinary tract and the potential for infection if theseare compromised. - Advised patient to monitor symptoms and report any worsening. 2. Left flank pain (R10.9) Flank pain may be associated with current UTI. No significant tenderness or guarding on abdominal examination. - Ordered ultrasound to evaluate for possible renal or bladder stones; patient to schedule if pain persists. 3. group home (current) use of oral hypoglycemic drugs (Z79.84) [...] excuse any unintended typographical errors. Recording using ambient AI software for draft documentation of the visit was discussed with the patient/authorized dermatology sales representative; all questions welcomed and answered. Patient/authorized dermatology sales representative agreed to proceed Jones Velasquez MD documented in this encounterSt. [facility] Instructions* Patient Instructions* Jones Velasquez MD - 07/25/2024 8:28 AM [...] stopping Jardiance on July 23, and this maybe contributing to your improvement. - Please let [...] further questions or concerns. documented [facility]05-12-2025 NoteHNO ID: [id number] Author: ?, ?, ? Service: ? Author Type: LICENSED NURSE Type: Progress Notes Filed: 07/17/2024 11:42 Note Text: Patient presents for B-12 injection. Denies any problems at this time. Patient instructed on any SE of medication, verbalized understanding and agreed to proceed with treatment. Tolerated injection well. Agueda Sabillon [facility]05-12-2025 History of Present illness Narrative* AGUEDA SABILLON - 07/17/2024 11:38 AM EDT Patient presents for B-12 injection. Denies any problems at this time. Patient instructed on any SEof medication, verbalized understanding and agreed to proceed with treatment. Tolerated injection well. Agueda Sabillon LPN documented in this encounterSt. [facility]-2025 NoteHNO ID: [id number] Author: ?, ?, ? Service: ? Author Type: LICENSED NURSE Type: Progress Notes Filed: 06/19/2024 11:58 Note Text: Patient presents for B-12 injection. Denies any problems at this time. Patient instructed on any SE of medication, verbalized understanding and agreed to proceed with treatment. Tolerated injection well. Agueda Sabillon [facility]04-14-2025 History of Present illness Narrative* AGUEDA SABILLON - 06/19/2024 11:53 AM EDT Patient presents for B-12 injection. Denies any problems at this time. Patient instructed on any SEof medication, verbalized understanding and agreed to proceed with treatment. Tolerated injection well. Agueda Sabillon LPN documented in this [facility]04-04-2025 NoteHNO ID: [id number] Author: ASTRID MUSE APRN.ADAPTIVE PHYSICAL EDUCATION TEACHER Service: ? Author Type: Nurse Practitioner Type: [...] Disease Visit due (more content not included)... [facility]04-04-2025 History of Present illness Narrative* Astrid Muse APRN.ADAPTIVE PHYSICAL EDUCATION TEACHER - 06/09/2024 10:27 AM EDT CC: Patient presents with: Recheck: 6 week follow up UTI and medication HPI Britney Canada is a 78 year old female who presents today for recheck after UTI which resulted in hospitalization, concern for second UTI and evaluation for continuing Jardiance. Patient denies any new symptoms of urinary tract infection including dysuria, burning or frequency. She is currently onJardiance and metformin for her diabetes. She does feel like the Jardiance has helped her be able to lose weight and stabilize her blood sugars. Blood sugars at home average between 123 and 128 per patient, 116 this morning. She follows mostly a plant- based diet with eggs. She does walk around her house intentionally for exercise. Denies any other associated symptoms today REVIEW OF SYSTEMS General: no fevers, no chills, no recurrent infections, no change in appetite, no change in energy,and no significant changes in weight Respiratory: no [...] on empty stomach. ForThyroid^Disp: 90 tablet^Rfl: 1 losartan (COZAAR) 50 mg [...] plan. Astrid Muse APRN.SHERIDAN documented in this encounterSt. [facility]2025 NoteHNO ID: [id number] Author: ?, ?, ? Service: ? Author Type: LICENSED NURSE Type: Progress Notes Filed: 05/22/2024 11:40 Note Text: Patient presents for B-12 injection. Denies any problems at this time. Patient instructed on any SE of medication, verbalized understanding and agreed to proceed with treatment. Tolerated injection well. [facility]Prem[facility]03-17-2025 History of Present illness Narrative* AGUEDA SABILLON - 05/22/2024 11:36 AM EDT Patient presents for B-12 injection. Denies any problems at this time. Patient instructed on any SEof medication, verbalized understanding and agreed to proceed with treatment. Tolerated injection well. Agueda Sabillon LPN documented in this encounterSt. [facility]-2025 NoteHNO ID: [id number] Author: ASTRID MUSE APRN.ADAPTIVE PHYSICAL EDUCATION TEACHER Service: ? Author Type: Nurse Practitioner Type: [...] Bone Density Screening Com (more content not included)...[facility]02-21-2025 History of Present illness Narrative* Astrid Muse APRN.ADAPTIVE PHYSICAL EDUCATION TEACHER - 04/28/2024 10:45 AM EST CC: Patient presents with: Recheck: 6 month [...] on empty stomach. ForThyroid^Disp: 90 tablet^Rfl: 1 losartan (COZAAR) 50 mg [...] with symptoms or return of UTI then willtry alternate diabetic treatment Cefdinir as ordered as [...] plan. Astrid Muse APRN.CNP documented in this encounterSt. Mary'[facility]02-[facility]-2025 NoteHNO ID: [id number] Author: JUSTIN CHRISTOPHER MD Service: ? Author [...] applied and the patient tolerated the procedure well.[facility]02-03-2025 History of Present illness Narrative* Justin Christopher MD - 04/10/2024 12:36 PM EST Preoperative diagnosis: Left thyroid nodule Postoperative diagnosis: [...] and the patient tolerated the procedure well. * Melinda Martinez RN - 04/03/2024 1:28 PM EST UNIVERSAL PROTOCOL / SAFETY CHECKLIST Procedure to [...] applicable. Melinda Martinez RN documented in this encounterSt. [facility]01[facility] Instructions* Patient Instructions* Melinda Martinez RN - 04/03/2024 1:36 PM EST The following instructions are important for you related to your office visit today with the [facility] General Surgeons. Instructions After THYROID FINE [...] you have any questions or concerns @ [phone]. Please make an appointment to follow up in one week with your physician and [facility] If you note any additional difficulties, questions, or concerns, you should contact our office immediately @ [phone] and ask to be transferred to the General Surgery department. documented in this encounterSt. Mary'[facility]01-27-2025 NoteHNO ID: [id number] Author: MELINDA MARTINEZ RN Service: ? Author [...] Care Visit completed when applicable. Melinda Martinez RNGood [facility]aritan [facility]01-13-2025 NoteHNO ID: [id number] Author: JUSTIN CHRISTOPHER MD Service: ? Author Type: Physician Type: Progress Notes Filed: 03/21/2024 08:56 Note Text: HISTORY AND PHYSICAL Britney [place] 1945 REFERRING PHYSICIAN: Astrid Muse APRN.ADAPTIVE PHYSICAL EDUCATION TEACHER CHIEF COMPLAINT: Consult (Thyroid Nodule) HPI: The [...] mcg INTRAMUSCULAR q 4 WEEKS Older, FERCHO Resendiz.ADAPTIVE PHYSICAL EDUCATION TEACHER 1,000 mcg at 03/20/24 1129 ALLERGIES: Darvon [...] 1 week post operatively. Justin Christopher III, [facility]01-13-2025 History of Present illness Narrative* Justin Christopher MD - 03/20/2024 1:08 PM EST HISTORY AND PHYSICAL Britney [place] 1945 REFERRING PHYSICIAN: Astrid Muse APRN.ADAPTIVE PHYSICAL EDUCATION TEACHER CHIEF COMPLAINT: Consult (Thyroid Nodule) HPI: The [...] mouth once daily. Take on empty stomach. ForThyroid 90 tablet 1 losartan (COZAAR) 50 mg [...] MOUTH ONCE DAILY AT BEDTIME FOR CHOLESTEROL 90tablet 3 terconazole vaginal cream (TERAZOL) 0.8 % [...] Dx: Other DM Code E11.65 Insulin: No 100Each 11 metoprolol tartrate, short acting, (LOPRESSOR) 25 [...] mcg INTRAMUSCULAR q 4 WEEKS Older, FERCHO Resendiz.ADAPTIVE PHYSICAL EDUCATION TEACHER 1,000 mcgat 03/20/24 1129 ALLERGIES: Darvon [Propoxyphene Hcl] and [...] nourished, well hydrated in no acute distress. Thepatient is oriented to time, place, and person. VITALS: Blood pressure 113/65, pulse 61, temperature 36.4 C (97.5 F), height 158.8 cm (5' 2.5), weight 82.1 kg (181 lb), SpO2 97%. Body mass index is 32.58 kg/m . HEENT: Normal cephalic, ataumatic, pupils are equally round, sclera are anicteric, mucous membranesare moist, oropharynx is clear. Neck has no [...] week post operatively. Justin Christopher III, MD * CarolineAylin LPN - 03/20/2024 12:51 PM EST REVIEW OF SYSTEMS: General: The patient denies [...] arthritis, or denies gout. documented in this encounterSt. [facility]2025 NoteHNO ID: [id number] Author: AYLIN VELAZQUEZ LPN Service: ? Author [...] NOTES knee/foot trouble, NOTES arthritis, or denies gout.[facility]01-13-2025 NoteHNO ID: [id number] Author: AGUEDA SABILLON LPN Service: ? Author Type: LICENSED NURSE Type: Progress Notes Filed: 03/20/2024 11:31 Note Text: Patient presents for B-12 injection. Denies any problems at this time. Patient instructed on any SE of medication, verbalized understanding and agreed to proceed with treatment. Tolerated injection well. [facility]ayakPrem[facility]01-13-2025 History of Present illness Narrative* Agueda Sabillon LPN - 03/20/2024 11:28 AM EST Patient presents for B-12 injection. Denies any problems at this time. Patient instructed on any SEof medication, verbalized understanding and agreed to proceed with treatment. Tolerated injection well. Agueda Sabillon LPN documented in this encounterSt. [facility]01-[facility]-2025 NoteHNO ID: [id number] Author: ASTRID MUSE APRN.ADAPTIVE PHYSICAL EDUCATION TEACHER Service: ? Author Type: Nurse Practitioner Type: [...] Screening Completed Shingrix Vac (more content not included)...[facility]01-08-2025 History of Present illness Narrative* Astrid Muse APRN.ADAPTIVE PHYSICAL EDUCATION TEACHER - 03/15/2024 10:18 AM EST CC: Patient presents with: Recheck: 6 week follow up HPI Britney Canada is a 78 year old female who presents today for follow up. Was seen 6 weeks ago after hospiialization from severe vomiting and UTI. Denies any abdominal pain, difficulty/pain with urinating, fever, chills, dark/foul smelling urine,nausea, or vomiting HTN: Ms. Canada denies headache, chest pain, palpitations, dyspnea, and peripheral edema. Patient denies any side effects of her medication(s) and is compliant with their regimen. She does not checkBP's generally. Britney denies regular aerobic exercise. She watches her diet for sodium, low fat andlow cholesterol most of the time. Last 3 [...] on empty stomach. ForThyroid^Disp: 90 tablet^Rfl: 1 losartan (COZAAR) 50 mg [...] site unspecified - ICD9: 599.0, ICD10: N39.0 (primarydiagnosis) Asymptomatic. Last urine 4 weeks ago was [...] Patient agreeable to treatment plan. Astrid Muse APRN.ADAPTIVE PHYSICAL EDUCATION TEACHER documented in this encounterSt. Mary'[facility]12[facility]-2024 NoteHNO ID: [id number] Author: AUGEDA SABILLON LPN Service: ? Author Type: LICENSED NURSE Type: Progress Notes Filed: 02/21/2024 11:34 Note Text: Patient presents for B-12 injection. Denies any problems at this time. Patient instructed on any SE of medication, verbalized understanding and agreed to proceed with treatment. Tolerated injection well. [facility]ayakPrem[facility]12-16-2024 History of Present illness Narrative* Agueda Sabillon LPN - 02/21/2024 11:30 AM EST Patient presents for B-12 injection. Denies any problems at this time. Patient instructed on any SEof medication, verbalized understanding and agreed to proceed with treatment. Tolerated injection well. Agueda Sabillon LPN documented in this encounterSt. [facility]12[facility] Telephone encounter Note * Telephone Encounter - Nikole Alexis LPN - 02/14/2024 4:30 PM EST Prescription Refill Information The patient has been [...] Alexis LPN February 14, 2024 4:[address] [facility]12-09-2024 Miscellaneous Notes* Telephone Encounter - Nikole Alexis LPN - 02/14/2024 4:30 PM EST Prescription Refill Information The patient has been [...] 14, 2024 4:31 PM documented in this encounterSt. [facility]12[facility]-20[facility] Miscellaneous Notes* Telephone Encounter - Agueda Sabillon LPN - 02/14/2024 11:15 AM EST Patient scheduled for nurse visit 02/21/24 to receive B-[address]. [address] order at this time. Agueda Sabillon LPN documented in [facility] encounter[facility] Telephone encounter Note * Telephone Encounter - Agueda Sabillon LPN - 02/14/2024 11:15 AM EST Patient scheduled for nurse visit 02/21/24 to receive B-[address]. [address] order at this time. Agueda Sabillon LPN [facility]12-05-2024 Telephone encounter Note* Telephone Encounter - Gladis Vallecillo LPN - 02/10/2024 4:46 PM EST Pt called back and was transferred to chair post machine operator. Gladis Vallecillo LPN [facility]12-05-2024 Miscellaneous Notes* Telephone Encounter - Gladis Vallecillo LPN - 02/10/2024 4:46 PM EST Pt called back and was transferred to chair post machine operator. Gladis Vallecillo LPN * Telephone Encounter - Sobia Quiñonez RN - 02/10/2024 3:13 PM EST Pt called and is notified of providers results and instructions. Pt voices understanding. Pt will call back in to schedule appointment as her is out of the car and has their calendar. Sobia Quiñonez, RN * Telephone Encounter - Astrid Muse APRN.CNP - 02/10/2024 3:03 PM EST Thyroid US recommending aspiration/biopsy of thyroid nodule. Consult sent to general surgery to have this scheduled and completed. Thank you Astrid Muse APRN.ADAPTIVE PHYSICAL EDUCATION TEACHER * Telephone Encounter - Astrid Muse APRN.CNP - 02/09/2024 6:33 PM EST I reviewed hospital records. HgbA1c has improved to 7.1, Imaging reviewed and she needs to schedulealready ordered thyroid US to further evaluated incidental finding of thyroid nodule. Slightly anemic while at hospital but probably from fluids. We will recheck this at a later date. current magnesium level normal. Thank you Astrid Muse APRN.CNP documented in this encounterSt. [facility] Telephone encounter Note * Telephone Encounter - Sobia Quiñonez RN - 02/10/2024 3:13 PM EST Pt called and is notified of providers results and instructions. Pt voices understanding. Pt will call back in to schedule appointment as her is out of the car and has their calendar. Sobia Quiñonez RN [facility]12-05-2024 Telephone encounter Note* Telephone Encounter - Astrid Muse APRN.CNP - 02/10/2024 3:03 PM EST Thyroid US recommending aspiration/biopsy of thyroid nodule. Consult sent to general surgery to have this scheduled and completed. Thank you Astrid Muse APRN.CNP [facility]12-04-2024 Telephone encounter Note* Telephone Encounter - Astrid Muse APRN.CNP - 02/09/2024 6:33 PM EST I reviewed hospital records. HgbA1c has improved to 7.1, Imaging reviewed and she needs to schedulealready ordered thyroid US to further evaluated incidental finding of thyroid nodule. Slightly anemic while at hospital but probably from fluids. We will recheck this at a later date. current magnesium level normal. Thank you Astrid Muse APRN.ADAPTIVE PHYSICAL EDUCATION TEACHER [facility]12-03-2024 History of Present illness Narrative* Clarissa Philip RDMS - 02/08/2024 7:45 AM EST Radiology Service Progress Note PATIENT NAME: Britney [...] PATIENT PRESENTS WITH AN IMPLANTABLE OR ATTACHED VOCATIONAL EDUCATION PROFESSIONAL: No RADIOLOGY DEPARTMENT: Ultrasound PERIPHERAL IV DATA: Not applicable SIGNED BY: Clarissa Philip RDMS [facility] February 08, 2024 1:35 PM documented in this encounterSt. [facility]12-[facility]-2024 NoteHNO ID: [id number] Author: CLARISSA PHILIP RDMS Service: ? Author Type: Cigar Packer Type: Progress Notes Filed: 02/08/2024 13:36 Note [...] PATIENT PRESENTS WITH AN IMPLANTABLE OR ATTACHED VOCATIONAL EDUCATION PROFESSIONAL: No RADIOLOGY DEPARTMENT: Ultrasound PERIPHERAL IV DATA: Not applicable SIGNED BY: Clarissa Philip RD RVT February 08, 2024 1:35 [facility]11-27-2024 NoteHNO ID: [id number] Author: ASTRID MUSE APRN.ADAPTIVE PHYSICAL EDUCATION TEACHER Service: ? Author Type: Nurse Practitioner Type: Progress Notes Filed: 02/02/2024 13:41 Note Text: CC: Patient presents with: Recheck: ER Follow up UTI HPI Britney Canada is a 78 year old female who presents today for Hospital follow-up. Patient's discharge instructions provided but no other records available. Facility: [facility] Date of visit: 01/19 - [...] Colorectal Cancer Screening Discontinued DATA REVIEWED: requesting [place] [facility] to be fully reviewed. ASSESSMENT/PLAN: [...] site unspecified - ICD9 (more content not included)...[facility]11-27-2024 History of Present illness Narrative* Astrid Muse APRN.ADAPTIVE PHYSICAL EDUCATION TEACHER - 02/02/2024 12:25 PM EST CC: Patient presents with: Recheck: ER Follow up UTI HPI Britney Canada is a 78 year old female who presents today for Hospital follow- up. Patient's discharge instructions provided but no other records available. Facility: [facility] Date of visit: 01/19 - [...] mouth once daily. Take on empty stomach. ForThyroid atorvastatin (LIPITOR) 80 mg tablet TAKE 1 [...] Colorectal Cancer Screening Discontinued DATA REVIEWED: requesting [place] [facility] records to be fully reviewed. ASSESSMENT/PLAN: [...] plan. Astrid Muse APRN.CNP documented in this encounterSt. [facility] Note. MICRO - Microbiology PROCEDURE: Blood Culture (bacterial) [...] Locations *1: This test was performed at: [address], [address] [place], [place] [address]11-20-2024 Note. MICRO - Microbiology PROCEDURE: Blood Culture (bacterial) [...] Locations *1: This test was performed at: [address], [address] [place], [place] [address]11-18-2024 NoteHNO ID: [id number] Author: AGUEDA SABILLON LPN Service: ? Author Type: LICENSED NURSE Type: Progress Notes Filed: 01/24/2024 13:18 Note Text: Patient presents for B-12 injection. Denies any problems at this time. Patient instructed on any SE of medication, verbalized understanding and agreed to proceed with treatment. Tolerated injection well. [facility] History of Present illness Narrative* Agueda Sabillon LPN - 01/24/2024 1:11 PM EST Patient presents for B-12 injection. Denies any problems at this time. Patient instructed on any SEof medication, verbalized understanding and agreed to proceed with treatment. Tolerated injection well. Agueda Sabillon LPN documented in this encounterSt. [facility] Note. MICRO - Microbiology PROCEDURE: Urine Culture [O1 [...] Locations *1: This test was performed at: [facility], [address] [place] [address], [facility] , [facility]11-15-2024 Hospital Discharge instructions Patient Education 01/21/2024 14:15:20 Urinary Tract Infection, Adult, Mzin-ti-Ghiv Urinary Tract Infection, Adult A urinary tract infection (UTI) is an infection of any part of the urinary tract. The urinary tractincludes: The kidneys. The ureters. The bladder. The [...] Follow these instructions at home: Medicines Take qlqh-qfo-jhkosdn and prescription medicines only as told by [...] small, thin tube to drain pee and notbeing able to control when you pee or poop. Treatment includes antibiotic medicines for germs. Drink enough fluid to keep your pee pale yellow. This information is not intended to replace advice given to you by your health care provider. Make sure you discuss any questions you have with your health care provider. Document Released: 08/10/2008 Document Revised: 02/09/2019 Document Reviewed: 09/01/2018 [employer] Patient Education 2020 JANZZ. 01/21/2024 14:15:14 Nausea and Vomiting, Adult, Sfsg-kc-Uirv Nausea and Vomiting, Adult Nausea is feeling [...] doctor about them. Follow these instructions to carefor yourself at home. Eating and drinking Take an ORS (oral rehydration solution). This is a drink that is sold at pharmacies and stores. Drink clear fluids in small amounts as you are able, such as: ?Water. ?Ice chips. ?Fruit juice that has water added (diluted fruit juice). ?Low-calorie sports drinks. Eat bland, cgss-ne-kmosjc foods in small amounts as you are able, such as: ?Bananas. ?Applesauce. ?Rice. ?Low-fat (lean) meats. ?Ellicott. ?Crackers. Avoid drinking fluids that have a lot of sugar or caffeine in them. This includes energy drinks, sports drinks, and soda. Avoid alcohol. Avoid spicy or fatty foods. General instructions Take orzk-byz-zmcqrwk and prescription medicines only as told by your doctor. Drink enough fluid to keep your pee (urine) pale yellow. Wash your hands often with soap and water. If you cannot use soap and water, use hand promotor group ticket sales. Make sure that all people in your [...] too much water in your body. Take taxc-iqi-cfsbdzq and prescription medicines only as told by [...] 08/10/2008 Document Revised: 06/16/2019 Document Reviewed: 08/02/2018 [employer] Patient Education 2019 JANZZ. Follow Up Care 01/20/2024 20:27:43 With:Follow up with primary care provider Address: When:3-5 days Comments:Please call to schedule your post-hospital follow-up appointment. [facility] 11-15-2024 Note Discharge Instructions Thank you for allowing [facility] to assist you with your healthcare needs. The following is importantdischarge information regarding your hospital visit. Your Care Team [facility]IENT [facility] Your Diagnosis Brain TIA Hypertension Nausea and vomiting Type 2 diabetes mellitus Urinary tract infection What to do next Instructions From Your Doctor You were admitted due to dizziness, nausea and vomiting following a trip. The ED physician was concerned about a possible stroke so you were admitted for stroke workup. MRI of the brain revealed yourprevious stroke but nothing new. Echocardiogram was done [...] and or supplements as they may interact withyour home medications. What How Much When Instructions Last Dose New cefdinir (cefdinir 300 mg oral capsule) 1 cap by mouth Every 12 hours Duration: 5 Days Pickup at [facility] [address] Unchanged apixaban (Eliquis 5 mg oral [...] TABLET BY MOUTH TWICE DAILY Pharmacy Information [facility]: [id number] [place], [place] [id number] [phone] Please take this list to your next [...] part of the urinary tract. The urinary tractincludes: The kidneys. The ureters. The bladder. The [...] Follow these instructions at home: Medicines Take dkhy-cif-oeqghju and prescription medicines only as told by [...] small, thin tube to drain pee and notbeing able to control when you pee or poop. Treatment includes antibiotic medicines for germs. Drink enough fluid to keep your pee pale yellow. This information is not intended to replace advice given to you by your health care provider. Make sure you discuss any questions you have with your health care provider. Document Released: 08/10/2008 Document Revised: 02/09/2019 Document Reviewed: 09/01/2018 [employer] Patient Education 2020 [employer] Nausea and Vomiting, Adult Nausea is feeling [...] doctor about them. Follow these instructions to carefor yourself at home. Eating and drinking Take an ORS (oral rehydration solution). This is a drink that is sold at pharmacies and stores. Drink clear fluids in small amounts as you are able, such as: ? Water. ? Ice chips. ? Fruit juice that has water added (diluted fruit juice). ? Low-calorie sports drinks. Eat bland, cfza-fw-kmdfao foods in small amounts as you are able, such as: ? Bananas. ? Applesauce. ? Rice. ? Low-fat (lean) meats. ? Ellicott. ? Crackers. Avoid drinking fluids that have a lot of sugar or caffeine in them. This includes energy drinks, sports drinks, and soda. Avoid alcohol. Avoid spicy or fatty foods. General instructions Take gtfi-jfi-okxttby and prescription medicines only as told by your doctor. Drink enough fluid to keep your pee (urine) pale yellow. Wash your hands often with soap and water. If you cannot use soap and water, use hand promotor group ticket sales. Make sure that all people in your [...] too much water in your body. Take kgpy-nth-yiqxxzf and prescription medicines only as told by [...] 08/10/2008 Document Revised: 06/16/2019 Document Reviewed: 08/02/2018 [employer] Patient Education 2020 [employer] Additional Information VACCINATE! IT SAVES LIVES! Members of the community who have not yet received the COVID-19 vaccine and would like to receive it can visit one of [facility] vaccine clinics. There are many vaccine clinic locations within the [facility]. For locations and available times, please visit https://[email or web address].[place].gov/. It is important to note that some COVID mobile vaccine clinics are held outdoors and may be canceled in rainy or stormy conditions. To learn more about pediatric vaccinations (ages 5-11), we invite you to visit the [facility] webpage. https://www.[facility].org/pages/8791-Rrkmk-Ebqcsxkzfti-Fwgswdjdsi-Dnivx-Lvs stions.htmlTo learn more about the COVID-19 vaccine, we invite you to visit the CDC website for a list of frequently asked questions.https://www.cdc.gov/coronavirus/2019-ncov/vaccines/faq.html [email or web address] Patient Portal Access Instructions: Stay connected with your healthcare team and access your personal medical information anytime with the [facility] in Patient Portal. Please follow the directions below to create your [facility] in account: 1.Access the email account you provided upon registration to the hospital/physician office.2.Look for an invitation email from [facility].3.Open the email and access the invitation link: AcceptInvitation to [email or web address].4.Fill in the required pillai to create your account. To access your account, visit The [employer]. Click the blue button labeled Access Patient Portal and then log in with the username and password that you created in the steps above. You will be able to view your test results, lab results, a summary of your visits, upcoming appointments and more. There is also a convenient messaging option where you can send secure messages to your p [employer]. In addition, you will have the ability to download any documents or summaries to your computer and/or send the information securely to a physician. Remember that your healthcare information is confidential, so carefully consider who you will allowto register on the [email or web address] Patient Portal for access to your information. You can also access the [facility] Inversiones.comChart Patient Portal on the [employer] Anywhere atsia. Simply click on Patient Portal and then log into your account. If you would like to receive a full copy of your medical records, please contact the [facility] Medical Records Department by calling [phone], Wednesday through Wednesday between 8 a.m. and 4:30 p.m. HOW TO SAFELY DISPOSE OF PRESCRIPTION MEDICATIONS Please use one of the following methods to safely dispose of your unused medications. 1.Use a drug disposal kit: the drug disposal pouch allows you to safely discard your old and unuseddrugs. Ask your nurse to give you one when you are discharged.2.Visit a local take-back location: Many local pharmacies and police departments have programs that collect old and unwanted prescriptiondrugs. Call your local pharmacy or go to http://Tripsidea.Gaatu/8V0Ve3t to find one close to you.3.Make use of household items: Use cat litter or old coffee grounds to dispose medications if other options arenot available. Mix your drugs with these household products, seal them in an airtight container andthrow it into the garbage. Call [facility]: [phone] to be sure your drugs can be [...] Patient Education Materials Urinary Tract Infection, Adult, Ujnd-iz-Jrej Nausea and Vomiting, Adult, Htdd-gl-Kkpm Medication Leaflets My discharge plan and instructions have been reviewed and explained to me and I,BRITNEY [place] understand my current condition and have read and understand these discharge instructions. I have received a written copy of the plan/instructions. If I have questions, I am aware that I should contact my doctor. Patient/Manager Performance Signature: Date/Time: Relationship to Patient: Witness Name/Signature: Date/Time: [facility]11-15-2024 Evaluation + Plan noteExtracted from: Title:History and Physical Author:BRISEYDA HALL APRN-ADAPTIVE PHYSICAL EDUCATION TEACHER Date:01/21/24 1. Brain TIA Acute, new onset [...] Diagnostic Tests Pending * Urine Culture 01/21/24 [facility] 11-15-2024 Note* Exam Date Time Procedure Performing Provider Status 01/21/24 12:37 PM Echocardiogram, Adul t with Bubble Study- Auth (Verified) [facility] 11-15-2024 Note ORIGINAL EXAMINATION: MRI OF THE BRAIN WITHOUT OSFCXIRA59/15/2024 11:27 am MR BRAIN W/O CONTRAST TECHNIQUE: [...] Report By: Mack Jovel Electronically signed By Bumlaro Bettencourt Dictated Date: 01/21/2024 11:32:46 AM Prelim Date: 01/21/2024 11:45:49 AM Sign Date: 01/21/2024 11:45:49 AM Ordering Provider: [facility]11-15-2024 Note Date of Service 01/21/2024 Chief [...] CVA and type 2 diabetes, presented to [facility] emergency department with the chief complaint of nausea and vomiting. Patient states that she started to feel unwell on Wednesday morning about 0700. Patient adds that she has been feeling dizzy lately but denies a room spinning sensation. Patient states that she just returned from a cruise to [facility] and returned home yesterday afternoon. The [...] Dr. Adonis Christie to Dr. Lee On 4at 22:13. XR Chest 1 View Result Date: [...] by BRISEYDA HALL on 01/21/2024 01:07 PM [facility]11-14-2024 Note ORIGINAL EXAMINATION: CTA OF THE [...] Sign Date: 01/20/2024 11:16:50 PM Ordering Provider: [facility]11-14-2024 Note ORIGINAL EXAMINATION: CTA OF THE NECK; [...] Sign Date: 01/20/2024 11:16:50 PM Ordering Provider: [facility]11-14-2024 Note ORIGINAL EXAMINATION: CT OF THE HEAD [...] Sign Date: 01/20/2024 10:13:56 PM Ordering Provider: [facility]11-14-2024 Note ORIGINAL EXAMINATION: ONE XRAY VIEW OF [...] Sign Date: 01/20/2024 9:52:42 PM Ordering Provider: [facility]11-14-2024 Note Sinus rhythm Atrial premature complex Inferior infarct, old Consider anterior infarct Electronic Signature: SHAWN LEE DO 01/20/2024 21:17:38[facility] 10-21-2024 NoteHNO ID: [id number] Author: AGUEDA SABILLON LPN Service: ? Author Type: LICENSED NURSE Type: Progress Notes Filed: 12/27/2023 13:13 Note Text: Patient presents for B-12 injection. Denies any problems at this time. Patient instructed on any SE of medication, verbalized understanding and agreed to proceed with treatment. Tolerated injection well. Agueda Sabillon [facility]10-21-2024 History of Present illness Narrative* Agueda Sabillon LPN - 12/27/2023 1:07 PM EDT Patient presents for B-12 injection. Denies any problems at this time. Patient instructed on any SEof medication, verbalized understanding and agreed to proceed with treatment. Tolerated injection well. Agueda Sabillon LPN documented in this encounterSt. [facility] NoteHNO ID: [id number] Author: AGUEDA SABILLON LPN Service: ? Author Type: LICENSED NURSE Type: Progress Notes Filed: 11/29/2023 13:13 Note Text: Patient presents for B-12 injection. Denies any problems at this time. Patient instructed on any SE of medication, verbalized understanding and agreed to proceed with treatment. Tolerated injection well. Agueda Sabillon [facility]09-23-2024 History of Present illness Narrative* Agueda Sabillon LPN - 11/29/2023 1:01 PM EDT Patient presents for B-12 injection. Denies any problems at this time. Patient instructed on any SEof medication, verbalized understanding and agreed to proceed with treatment. Tolerated injection well. Agueda Sabillon LPN documented in this encounterSt. [facility]24 NoteHNO ID: [id number] Author: AGUEDA SABILLON LPN Service: ? Author Type: LICENSED NURSE Type: Progress Notes Filed: 11/01/2023 13:34 Note Text: Patient presents for B-12 injection. Denies any problems at this time. Patient instructed on any SE of medication, verbalized understanding and agreed to proceed with treatment. Tolerated injection well. [facility] History of Present illness Narrative* Agueda Sabillon LPN - 11/01/2023 1:15 PM EDT Patient presents for B-12 injection. Denies any problems at this time. Patient instructed on any SEof medication, verbalized understanding and agreed to proceed with treatment. Tolerated injection well. Agueda Sabillon LPN documented in this encounterSt. [facility]24 NoteHNO ID: [id number] Author: ASTRID MUSE APRN.ADAPTIVE PHYSICAL EDUCATION TEACHER Service: ? Author Type: Nurse Practitioner Type: [...] cholesterol most of the time. Goes to [facility] yearly for routine exam. Last [...] due on 03/08 (more content not included)... [facility]08-21-2024 History of Present illness Narrative* Astrid Muse APRN.ADAPTIVE PHYSICAL EDUCATION TEACHER - 10/27/2023 10:09 AM EDT CC: Patient [...] cholesterol most of the time. Goes to [facility] yearly for routine exam. Last [...] Advance Directive Discussion due on 03/08/2023 Covid-19 Vaccine( season) due on 05/14/2023 Influenza Vaccine(1) due [...] plan. Astrid Muse APRN.CNP documented in this encounterSt. [facility] Telephone encounter Note * Telephone Encounter - Chantale Alves MA - 10/25/2023 8:50 AM EDT Patient notified. [facility]-19-2024 Miscellaneous Notes* Telephone Encounter - Chantale Alves MA - 10/25/2023 8:50 AM EDT Patient notified. * Telephone Encounter - Astrid Muse APRN.CNP - 10/25/2023 7:27 AM EDT Non fasting blood work orders placed. Thank you Astrid Muse APRN.SHERIDAN * Telephone Encounter - Jodi Chung - 10/22/2023 10:39 AM EDT Pt wanting to know if there are labs due before appointment 10/27/23. Please advise pt and place orders. documented in this encounterSt. [facility] Telephone encounter Note * Telephone Encounter - Astrid Muse APRN.CNP - 10/25/2023 7:27 AM EDT Non fasting blood work orders placed. Thank you Astrid Muse APRN.CNP [facility]08-16-2024 Telephone encounter Note* Telephone Encounter - Jodi Chung - 10/22/2023 10:39 AM EDT Pt wanting to know if there are labs due before appointment 10/27/23. Please advise pt and place orders. [facility] Work Phone: [phone]) 958-801508-01-2024 Telephone encounter Note* Telephone Encounter - Renetta [...] Renetta Allred October 07, 2023 12:[address] [facility]08-01-2024 Miscellaneous Notes* Telephone Encounter - Wilson Brigida Renetta Duke - 10/07/2023 12:35 PM EDT Prescription Refill [...] once daily in the morning Renetta Wilson [facility] October 07, 2023 12:36 PM documented in this encounterSt. Mary'[facility]2024 NoteHNO ID: [id number] Author: AGUEDA SABILLON LPN Service: ? Author Type: LICENSED NURSE Type: Progress Notes Filed: 10/04/2023 13:09 Note Text: Patient presents for B-12 injection. Denies any problems at this time. Patient instructed on any SE of medication, verbalized understanding and agreed to proceed with treatment. Tolerated injection well. [facility] History of Present illness Narrative* Agueda Sabillon LPN - 10/04/2023 12:59 PM EDT Patient presents for B-12 injection. Denies any problems at this time. Patient instructed on any SEof medication, verbalized understanding and agreed to proceed with treatment. Tolerated injection well. Agueda Sabillon LPN documented in this encounterSt. [facility] History of Present illness Narrative* Agueda Sabillon LPN - 09/07/2023 10:12 AM EDT Patient presents for B-12 injection. Denies any problems at this time. Patient instructed on any SEof medication, verbalized understanding and agreed to proceed with treatment. Tolerated injection well. Agueda Sabillon LPN documented in this encounterSt. Mary'[facility]06-[facility] Telephone encounter Note * Telephone Encounter - [...] 10/27/2023 Please advise. Thank you. Aretha Campuzano. [facility]06-05-2024 Miscellaneous Notes* Telephone Encounter - Aretha Campuzano [...] Thank you. Aretha Campuzano. documented in this encounterSt. Mary'[facility]06-03-2024 Telephone encounter Note * Telephone Encounter - [...] today. Please advise. Thank you. Jodi Allred. [facility] Work Phone: [phone] 121-491706-03-2024 Miscellaneous Notes* Telephone Encounter - Jodi Sanchez [...] Thank you. Jodi Allred. documented in this encounterSt. Mary'[facility]05-24-2024 History of Present illness Narrative* Agueda Sabillon LPN - 07/30/2023 10:59 AM EDT Patient presents for B-12 injection. Denies any problems at this time. Patient instructed on any SEof medication, verbalized understanding and agreed to proceed with treatment. Tolerated injection well. Agueda Sabillon LPN documented in this encounterSt. Mary'[facility]04-29-2024 History of Present illness Narrative* Agueda Sabillon LPN - 07/05/2023 1:41 PM EDT Patient presents for B-12 injection. Denies any problems at this time. Patient instructed on any SEof medication, verbalized understanding and agreed to proceed with treatment. Tolerated injection well. Agueda Sabillon LPN documented in this encounterSt. Mary[facility]04-24-2024 Telephone encounter Note * Telephone Encounter - [...] Please advise. Thank you. Grace Luz LPN. [facility]04-24-2024 Miscellaneous Notes* Telephone Encounter - Grace Luz [...] you. Grace Luz LPN. documented in this encounterSt. Mary'[facility]04-02-2024 Miscellaneous Notes* Telephone Encounter - Grace Luz [...] you. Grace Luz LPN. documented in this encounterSt. Mary'[facility]04-01-2024 History of Present illness Narrative* Agueda Sabillon LPN - 06/07/2023 1:01 PM EDT Patient presents for B-12 injection. Denies any problems at this time. Patient instructed on any SEof medication, verbalized understanding and agreed to proceed with treatment. Tolerated injection well. Agueda Sabillon LPN documented in this encounterSt. Mary'[facility] [facility]03-04-2024 History of Present illness Narrative* Agueda Sabillon LPN - 05/10/2023 1:33 PM EST Patient presents for B-12 injection. Denies any problems at this time. Patient instructed on any SEof medication, verbalized understanding and agreed to proceed with treatment. Tolerated injection well. Agueda Sabillon LPN documented in this encounterSt. Mary'[facility] [facility]02-20-2024 History of Present illness Narrative* Renetta Christie [...] plan. Renetta Christie PA-C documented in this encounterSt. Mary'[facility]02-19-2024 Miscellaneous Notes* Telephone Encounter - Chantale Alves [...] needs diagnosis. Please advise documented in this encounterSt. Mary'[facility]02-05-2024 History of Present illness Narrative* Agueda Sabillon LPN - 04/12/2023 1:19 PM EST Patient presents for B-12 injection. Denies any problems at this time. Patient instructed on any SEof medication, verbalized understanding and agreed to proceed with treatment. Tolerated injection well. Agueda Sabillon LPN documented in this encounterSt. Mary'[facility]12-07-2023 History of Present illness Narrative* Agueda Sabillon LPN - 02/11/2023 2:14 PM EST Patient presents for B-12 injection. Denies any problems at this time. Patient instructed on any SEof medication, verbalized understanding and agreed to proceed with treatment. Tolerated injection well. Agueda Sabillon LPN documented in this encounterSt. Mary'[facility] [facility]11-09-2023 History of Present illness Narrative* Agueda Sabillon LPN - 01/14/2023 2:14 PM EST Patient presents for B-12 injection. Denies any problems at this time. Patient instructed on any SEof medication, verbalized understanding and agreed to proceed with treatment. Tolerated injection well. Agueda Sabillon LPN documented in this encounterSt. Mary'[facility] [facility]11-06-2023 Miscellaneous Notes* Telephone Encounter - Grace Luz [...] Thank you. Grace Luz. documented in this encounterSt. Mary'[facility]10-12-2023 History of Present illness Narrative* Agueda Sabillon LPN - 12/17/2022 2:50 PM EDT Patient presents for B-12 injection. Denies any problems at this time. Patient instructed on any SEof medication, verbalized understanding and agreed to proceed with treatment. Tolerated injection well. Agueda Sabillon LPN documented in this encounterSt. Mary'[facility] [facility]10-04-2023 History of Present illness Narrative* Renetta Christie [...] plan. Renetta Christie PA-C documented in this encounterSt. Mary'[facility] [facility]08-28-2023 Miscellaneous Notes* Telephone Encounter - Grace Solano [...] you. Grace Solano LPN documented in this encounterSt. Mary'[facility]08-09-2023 History of Present illness Narrative* Renetta Christie [...] labs Renetta Christie PA-C documented in this encounterSt. Mary'[facility]07-31-2023 Discharge summary Author Bulmaro Brown [facility] October 05, 2022 2:13pm Note Date/Time October 05, 2022 2:13 pm [facility] Physical Therapy [facility] [address] [place] [address] [address] [place] [address] / REHABILITATION SERVICES DISCHARGE SUMMARY MR#: [id number] Acct: [id number] Name: BRITNEY CANADA Rep #: [id number] : 1945 77 From: Bulmaro Brown DPT, OCS, CSCS Referring Dr.: LAURA MUSE Status: REG RCR Insurance: [employer] [facility] SELF PAY INSURANCE Discharge Summary D/C summary: It has been my pleasure to treat BRITNEY CANADA referred by SUZIE MOON,with the diagnosis of R sided sciatica. for a total of 16 visit(s). Discharge Date: 10/05/22 Please see the following information for a summary of their discharge status. Subjective Subjective: Been pretty good for the last couple weeks. No back pain. Rjxnjazp2c/day. using wh walker to get around. Going [...] please feel free to call me at [phone]. Thank you for the referral of thispatient. Sincerely, Bulmaro Brown, ANIBAL, OCS, CSCS Balance/Gait/Functional tests Balance/Special Test Scores Functional Gait Assessment Score: 25 % Disability: 16.6700 Oswestry Low Back Score: 12 <Electronically signed by Bulmaro Brown DPT, OCS, CSCS> 10/05/22 1413 CC: SHEEP SORTER-C ASTRID MUSE; Dr. Jones Velasquez MD ~ EBG Signed [facility] Work Phone: 1(662) 357-362607-18-2023 Miscellaneous Notes* Telephone Encounter - Renetta Christie PA-C - 09/22/2022 4:36 PM EDT Rx for Keflex sent. * Telephone Encounter - Josseline Pineda LPN - 09/22/2022 1:53 PM EDT TC to [place], she is not having dysuria, polyuria, back pain, cramping, fever but d/t recent hospitalization she would like to have ATB called into [facility]. Patient will check with the pharmacy in [...] in. Renetta Christie PA-C documented in this encounterSt. Mary'[facility]06-29-2023 History of Present illness Narrative* Astrid Muse, FERCHO.ADAPTIVE PHYSICAL EDUCATION TEACHER - 09/03/2022 1:09 PM EDT CC: Patient presents with: Follow Up: Seen at [facility] on Wednesday for stroke, was released Wednesday HPI Britney Canada is a 76 year old female who presents today for originally routine follow up [facility] so appointment focused on [...] 65+ Completed DATA REVIEWED: Outside chart from [facility] reviewed. ASSESSMENT/PLAN: 1. History of recent [...] plan. Astrid Muse APRN.CNP documented in this encounterSt. Mary'[facility]06-23-[address] Gregg [facility] August 28, 2022 12:25pm Note Date/Time August 28, 2022 12:2 5pm [facility] Medical Records Department [address] [place] [address] Instructions for Home/Discharge Instructions 08/28/22 1224 MR#: [id number] Acct: [id number] Name: BRITNEY CANADA Rep #:[id number] : [...] MD; Dr. Christal Patiño MD ~ Signed [facility] Work Phone: 1(915) 967-189006-23-[address] Gregg [facility] August 28, 2022 3:45pm Note Date/Time August 28, 2022 9:22 am [facility] Medical Records Department [address] [place] [address] Discharge Summary 08/28/22 0921 MR#: [id number] Acct: [id number] Name: BRITNEY CANADA Rep #:[id number] : 1945 76 From: Bea Gregg MD PCP: Dr. Jones Velasquez MD Status:ADM I N Location: [place] [address] Providers Date of Admission: 08/25/22 Primary Care [...] mellitus type II who presented to the [facility] ED on 08/28/22 with history of [...] 73.5 H, Lymph % (Auto) 18.5 L, [place] % (Auto) 6.5, Eos % (Auto) 0.7, [...] Health Service Charges/Coding Visit Charges Inpatient E&M: 85228 Disch Hosp >30min 08/28/22 1545 <Electronically signed by Bea Gregg MD> Cosigner Signature (if applicable): CC: Dr. Bea Gregg MD; Dr. Jones Velasquez MD~ Signed [facility] Work Phone: 1(467) 176-189606-22-[address] Patiño [facility] August 27, 2022 4:32pm Note Date/Time August 27, 2022 4:32 pm [facility] System Medical Records Department [address] [place] [address] Progress Note - Hospitalist 08/27/22 1630 MR#: [id number] Acct: [id number] Name: BRITNEY CANADA Rep #:[id number] : 1945 76 From: Christal Patiño MD PCP: Dr. Jones Velasquez MD Status:ADM I N Location: [place] [id number] Reason for Visit Reason for Visit: Diagnoses [...] Total 120 / 120 920 / 920 Output Total 300 / 300 720 / 720 Balance -180 / -180 200 / 200 Lab / Micro Data Result Diagrams: 08/27/22 [...] (Auto) 71.7 H, Lymph % (Auto) 20.2, [place] % (Auto) 6.6, Eos % (Auto) 0.8, [...] documentation, 36minutes Charges/Coding Visit Charges Inpatient E&M: 87573 Subs Hosp 08/27/22 1632 <Electronically signed by Christal Patiño MD> Cosigner Signature (if applicable): CC: ~ Signed [facility] Work Phone: 1(114) 610-333206-21-[address] Patiño [facility] August 26, 2022 2:56pm Note Date/Time August 26, 2022 2:56 pm [facility] Medical Records Department [address] [place] [address] Progress Note - Hospitalist 08/26/22 1445 MR#: [id number] Acct: [id number] Name: BRITNEY CANADA Rep #:[id number] : 1945 76 From: Christal Patiño MD PCP: Dr. Jones Velasquez MD Status:ADM I N Location: [place] [address] Reason for Visit Reason for Visit: Diagnoses [...] Intake and Output for Last 24 Hours 08/24/22 08/25/22 08/26/22 23:59 23:59 23:59 Intake Total 120 / [...] % (Auto) 68.9, Lymph % (Auto) 23.7, [place] % (Auto) 6.2, Eos % (Auto) 0.2, [...] Clarity Clear, Urine pH 5.0, Ur Specific [place] 1.010, Urine Protein 30 H, Urine Glucose [...] GFR (MDRD) Non-Af 97, BUN/Creatinine Ratio 14.2, Dbpheqk222 H, Calcium 8.6, Total Bilirubin 0.80, AST 14 L, ALT 15, Alkaline Cskkhomjpyx46, Total Protein 6.2 L, Albumin 2.8 L, [...] Neut % (Auto) 65.8, Lymph % (Auto) 26.1,[place] % (Auto) 6.8, Eos % (Auto) 0.3, [...] Denisse Corcoran MD at 11:34 EDT , Echocardiogram 08/25/22 18:28 Interpretation Summary The [...] documentation, 38minutes Charges/Coding Visit Charges Inpatient E&M: 33949 [facility] Hosp 08/26/22 1456 <Electronically signed by Christal Patiño MD> Cosigner Signature (if applicable): CC: ~ Signed [facility] Work Phone: 1(885) 415-425906-20-[address] Lew [facility] August 25, 2022 7:32pm Note Date/Time August 25, 2022 4:02 pm [facility] Medical Records Department [address] [place] [address] Emergency Department Summary 08/25/22 MR#: [id number] Acct: [id number] Name: BRITNEY CANADA Rep #:[id number] : 1945 76 From: Tejas Lew MD PCP: Dr. Jones Velasquez MD Status:ADM I N Location: [place] [address] HPI History of Present Illness Chief Complaint: [...] information on the computer in the meantime. [facility] Medical History CVA (cerebral vascular accident) [...] mcg solution for injection 1,000 mcg IM CIUDJZY97/08/20 [History Last Taken Unknown] atorvastatin 80 mg [...] date birthday of her or the president [facility]. She hasno focal or lateralizing weakness [...] % (Auto) 68.9 Lymph % (Auto) 23.7 [place] % (Auto) 6.2 Eos % (Auto) 0.2 [...] (Auto) Neut % (Auto) Lymph % (Auto) [place] % (Auto) Eos % (Auto) Baso % [...] No acute ST elevation or depression. No. NE interval, QRS duration and QTc are all normal. Management Discussion w/another healthcare provider: Hospitalist and Claim Investigator Discharge Plan Dx/Rx/DC Orders Clinical Impression: CVA (cerebral vascular accident), Expressive aphasia, Receptive aphasia, History of stroke, History of diabetes mellitus, History of hypertension Disposition Disposition: Acute Care Hospital [facility] Discharge Date/Time: 08/25/22 18:42 What to do if you have Problems For any increased pain, shortness of breath, bleeding, nausea or vomiting, chestpain, or any unexpected problems, contact your Primary Care Provider. Call [facility] ([phone]) or report to the closest Emergency Room. Call 911 if necessary. 08/25/221931 <Electronically signed by Tejas Lew MD> Cosigner Signature (if applicable): CC: Dr. Jones Velasquez MD ~ Signed [facility] Work Phone: 1(304) 787-145106-20-2023 History and physical note Author Dr. Patiño [facility] August 25, 2022 6:33pm Note Date/Time August 25, 2022 6:23 pm [facility] Medical Records Department [address] [place] [address] H&P Exam - Hospitalist 08/25/223 MR#: [id number] Acct: [id number] Name: BRITNEY CANADA Rep #:[id number] : 1945 76 From: Christal Patiño MD PCP: Dr. Jones Velasquez MD Status:ADM I N Location: [place] [address] HPI - General General Date of Admission: 08/25/22 Date of Service: 08/25/22 Chief Complaint: Difficulty expressing words HPI Narrative BRITNEY CANADA, is a 76 F with a history of CVA 3 years ago, paroxysmal atrial flutter on Eliquis, hypertension, thyroidism type 2 diabetes who scented to [facility] 08/25/2022 due to difficulty getting her words [...] endorse any other focal or specific complaints. [facility] Medical History CVA (cerebral vascular accident) (02/06/20) [...] mcg solution for injection 1,000 mcg IM TTEZZZD20/08/20 [History Last Taken Unknown] atorvastatin 80 mg [...] through XII intact, patient would not perform [id number], no clonus in lower extremities Skin: No [...] % (Auto) 68.9, Lymph % (Auto) 23.7, [place] % (Auto) 6.2, Eos % (Auto) 0.2, [...] documentation, 60minutes Charges/Coding Visit Charges Inpatient E&M: 96036 Init Hosp L2 08/25/22 1833 <Electronically signed by Christla Patiño MD> Cosigner Signature (if applicable): CC: Dr. Jones Velasquez MD; Dr. Christal Patiño MD~ Signed [facility] Work Phone: 1(314) 886-794206-05-2023 Miscellaneous Notes* Telephone Encounter - Raquel Vincent PSS - 08/10/2022 2:13 PM EDT CD READY FOR RN HEM[facility] DIALYS[facility] AT [facility] * Telephone Encounter - Opal Funez - 08/10/2022 11:28 AM EDT Patient requesting disk of back from 07/13/2022 copied to a disk for machine operator hop picker documented in this encounterSt. Mary[facility]06-[facility]-2023 Miscellaneous Notes* Telephone Encounter - Garce Solano LPN - 08/10/2022 1:21 PM EDT [...] you. Grace Solano LPN documented in this encounterSt. Mary'S [facility]05-30-2023 Miscellaneous Notes* Telephone Encounter - Sobia Quiñonez RN - 08/04/2022 12:34 PM EDT Yamileth with [facility] called in and reports they do not have the strength of codeine with Guaifenesin that the provider ordered. I changed the medication to the one they have in stock and set it to what the provider had previously. Please resend if provider is ok with medication change. documented in this encounterSt. Mary'[facility]05-12-2023 Miscellaneous Notes* Telephone Encounter - Chantale Alves [...] the current pain. Thank you Astrid Muse APRN.CNP documented in this encounterSt. Mary'[facility]05-08-2023 History of Present illness Narrative* Jeannie Mcclellan [...] 13, 2022 2:31 PM documented in this encounterSt. Mary'[facility]04-24-2023 History of Present illness Narrative* Agueda Sabillon LPN - 06/29/2022 1:22 PM EDT Patient presents for B-12 injection. Denies any problems at this time. Patient instructed on any SEof medication, verbalized understanding and agreed to proceed with treatment. Tolerated injection well. Agueda Sabillon LPN documented in this encounterSt. Mary'S [facility]04-13-2023 History of Present illness Narrative* Jodi Lyles MA - 06/18/2022 8:31 AM EDT POPULATION HEALTH NAVIGATION OUTREACH Action/I [employer] Care Gaps 4.5.23 Discuss/Due for: Dilated [...] Care Gap or Scheduling/Wellness visits Payer: Payor: T MEDICARE / Plan: [employer] MEDICARE PPO / [...] 18, 2022 8:32 AM documented in this encounterSt. Mary'[facility]03-31-2023 Miscellaneous Notes* Telephone Encounter - Astrid Muse APRN.CNP - 06/05/2022 7:59 AM EDT RX clarified and resent Astrid Muse APRN.CNP * Telephone Encounter - Artemio Burorws RN - 06/04/2022 1:58 PM EDT [facility] asking for new metformin Rx with one set of instructions. Received Rx today with 2sets of instructions. documented in this encounterSt. Mary'S [facility]03-30-2023 History of Present illness Narrative* Astrid Muse [...] plan. Astrid Muse APRN.CNP documented in this encounterSt. Mary'[facility]03-27-2023 History of Present illness Narrative* Agueda Sabillon LPN - 06/01/2022 1:16 PM EDT Patient presents for B-12 injection. Denies any problems at this time. Patient instructed on any SEof medication, verbalized understanding and agreed to proceed with treatment. Tolerated injection well. Agueda Sabillon LPN documented in this encounterSt. Mary'[facility]02-27-2023 History of Present illness Narrative* Agueda Sabillon LPN - 05/04/2022 12:50 PM EST Patient presents for B-12 injection. Denies any problems at this time. Patient instructed on any SEof medication, verbalized understanding and agreed to proceed with treatment. Tolerated injection well. Agueda Sabillon LPN documented in this encounterSt. Mary'[facility]02-24-2023 History of Present illness Narrative* Mayelin Allred - 05/01/2022 10:14 AM EST POPULATION HEALTH NAVIGATION OUTREACH Action/FYI: Lance Care Gaps 05/01/22 Discuss the following due/overdue HM care gaps: ~Colorectal Cancer Screening Outcome: ~Unable to leave voice mail as mailbox not set up. [employer] message sent. Patient Identified by Name and : NO Outreach Outcome/Action Unable to reach patient: Phone number not valid / voicemail full [employer] message sent Did you use a PCP [...] 01, 2022 10:14 AM documented in this encounterSt. Mary'[facility]02-09-2023 Miscellaneous Notes* Telephone Encounter - Jones Velasquez MD - 04/16/2022 2:42 PM EST Staff Can you do the needful for the patient? Regards, Jones Velasquez MD documented in this encounterSt. Mary'S [facility]01-17-2023 Miscellaneous Notes* Telephone Encounter - Agueda Sabillon LPN - 03/24/2022 8:44 AM EST Patient scheduled for nurse visit 04/06/22 to receive Vitamin B-12. Please place new administration order at this time. Agueda Sabillon LPN documented in this encounterSt. Mary'S [facility]01-04-2023 History of Present illness Narrative* Agueda Sabillon LPN - 03/11/2022 10:40 AM EST Patient presents for B-12 injection. Denies any problems at this time. Patient instructed on any SEof medication, verbalized understanding and agreed to proceed with treatment. Tolerated injection well. Agueda Sabillon LPN documented in this encounterSt. Mary'S [facility]12-14-2022 History of Present illness Narrative* Jones Velasquez [...] times a week. 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 Mary'S [facility]12-01-2022 History of Present illness Narrative* Agueda Sabillon LPN - 02/05/2022 1:57 PM EST Patient presents for B-12 injection. Denies any problems at this time. Patient instructed on any SEof medication, verbalized understanding and agreed to proceed with treatment. Tolerated injection well. Agueda Sabillon LPN documented in this encounterSt. Mary'S [facility]11-29-2022 History of Present illness Narrative* Jessica Miranda - 02/03/2022 10:37 AM EST POPULATION HEALTH NAVIGATION OUTREACH Action/FYI Unable to review H/M V/M not set up My chart sent Pt identified by name and : NO Outreach Outcome/Action Unable to reach patient: Phone number not valid / voicemail full [employer] message sent Did you use a PCP [...] 03, 2022 10:37 AM documented in this encounterSt. Mary'[facility]11-02-2022 History of Present illness Narrative* Agueda Sabillon LPN - 01/07/2022 10:00 AM EDT Patient presents for B-12 injection. Denies any problems at this time. Patient instructed on any SEof medication, verbalized understanding and agreed to proceed with treatment. Tolerated injection well. Agueda Sabillon LPN documented in this encounterSt. Mary'[facility]10-03-2022 History of Present illness Narrative* Agueda Sabillon LPN - 12/08/2021 10:15 AM EDT Patient presents for B-12 injection. Denies any problems at this time. Patient instructed on any SEof medication, verbalized understanding and agreed to proceed with treatment. Tolerated injection well. Agueda Sabillon LPN documented in this encounterSt. Mary'S [facility]09-13-2022 Miscellaneous Notes* Telephone Encounter - Sobia Meyer - 11/18/2021 10:17 AM EDT Patient is here said she needs labs but there is no orders in please advise. Sobia Meyer documented in this encounterSt. Mary'S [facility]09-02-2022 History of Present illness Narrative* Agueda Sabillon LPN - 11/07/2021 10:06 AM EDT Patient presents for B-12 injection. Denies any problems at this time. Patient instructed on any SEof medication, verbalized understanding and agreed to proceed with treatment. Tolerated injection well. Agueda Sabillon LPN documented in this encounterSt. Mary'[facility]08-18-2022 History of Present illness Narrative* Mayelin Allred - 10/23/2021 8:13 AM EDT POPULATION HEALTH NAVIGATION OUTREACH Action/FYI: [employer] Care Gaps 10/23/21 Discuss/Due: ~Dilated Retinal Exam ~Albumin ~Colorectal Cancer Screening ~Breast Cancer Screening due 12/19/21 or after Outcome: ~Unable to leave voice mail as mailbox has not been set up. ~Sent iZotope message. Pt identified by name and : NO Outreach Outcome/Action Unable to reach patient: Phone number not valid / voicemail full [employer] message sent Did you use a PCP [...] 23, 2021 8:13 AM documented in this encounter[facility] Miscellaneous Notes* Telephone Encounter - Chantale Alves Ma - 10/13/2021 2:55 PM EDT Patient notified. * Telephone Encounter - Chantale Alves Ma - 10/13/2021 2:54 PM EDT ----- Message from Jones Velasquez MD sent at 10/11/2021 8:45 AM EDT ----- Thyroid is not in the right levels it should be documented in this encounterSt. [facility] History of Present illness Narrative* Agueda Sabillon LPN - 10/10/2021 9:49 AM EDT Patient presents for B-12 injection. Denies any problems at this time. Patient instructed on any SEof medication, verbalized understanding and agreed to proceed with treatment. Tolerated injection well. Agueda Sabillon LPN documented in this encounterSt. [facility] History of Present illness Narrative* Agueda Sabillon LPN - 09/12/2021 9:39 AM EDT Patient presents for B-12 injection. Denies any problems at this time. Patient instructed on any SEof medication, verbalized understanding and agreed to proceed with treatment. Tolerated injection well. Agueda Sabillon LPN documented in this encounterSt. [facility] History of Present illness Narrative* Agueda Sabillon LPN - 08/15/2021 12:38 PM EDT Patient presents for B-12 injection. Denies any problems at this time. Patient instructed on any SEof medication, verbalized understanding and agreed to proceed with treatment. Tolerated injection well. Agueda Sabillon LPN documented in this encounterSt. [facility] History of Present illness Narrative* Jones Velasquez MD - 08/15/2021 11:58 AM EDT Reason for Visit Patient presents with: Established Patient: follow up-DM Britney Canada is a 75 year old female who presents here today for Above Complaints.. Health Maintenance DILATED RETINAL EXAM URINE ALBUMIN:CREATININE RATIO COLORECTAL CANCER SCREENING ADVANCE DIRECTIVE DISCUSSION HPI Just back from an amazing cruise via [place], ate right all that time but enjoyed [...] medications Jones Velasquez MD documented in this encounterSt. [facility] [facility] Miscellaneous Notes* Telephone Encounter - Frankie Bernal Ma - 07/23/2021 12:57 PM EDT Patient notified, verbalized understanding. Frankie Bernal Ma * Telephone Encounter - Astrid Muse APRN.CNP - 07/23/2021 12:35 PM EDT Please let patient know that fasting lab work has been ordered, please get labs drawn closer to follow up appointment. Thank you Astrid Muse APRN.SHERIDAN * Telephone Encounter - Francia Antunez - 07/23/2021 8:53 AM EDT Patient would like bloodwork placed before 3 month follow up - please notify patient when she can come in to complete documented in this encounterSt. [facility] [facility] History of Present illness Narrative* Agueda Sabillon LPN - 07/15/2021 10:27 AM EDT Patient presents for B-12 injection. Denies any problems at this time. Patient instructed on any SEof medication, verbalized understanding and agreed to proceed with treatment. Tolerated injection well. Agueda Sabillon LPN documented in this encounterSt. [facility] [facility] History of Present illness Narrative* Francia Salmon Population Health Navigator - 07/11/2021 11:27 AM EDT [...] to Practice: No Navigation Signature: Francia Salmon [facility] Navigator July 11, 2021 11:27 AM Electronically signed by Francia Salmon [facility] Navigator at 07/11/2021 11:28 AM EDT documented in this encounterSt. [facility] [facility] History of Present illness Narrative* Agueda Sabillon LPN - 06/10/2021 1:28 PM EDT Patient presents for B-12 injection. Denies any problems at this time. Patient instructed on any SEof medication, verbalized understanding and agreed to proceed with treatment. Tolerated injection well. Agueda Sabillon LPN documented in this encounterSt. [facility] [facility] History of Past illness Narrative* Problem Noted Date Resolved Date Type II or unspecified type diabetes mellitus without mention of complication, not stated as uncontrolled 09/25/2014 Other and unspecified hyperlipidemia 09/25/2014 06/21/2015 BMI 38.0-38.9,adult 09/25/2014 11/30/2014 documented as of this encounter (statuses as of 06/10/2021) [facility] History of Past illness Narrative* Problem Noted Date Resolved Date Type II or unspecified type diabetes mellitus without mention of complication, not stated as uncontrolled 09/25/2014 Other and unspecified hyperlipidemia 09/25/2014 06/21/2015 BMI 38.0-38.9,adult 09/25/2014 11/30/2014 documented as of this encounter (statuses as of 07/11/2021) [address]21-2015 History of Past illness Narrative* Problem Noted Date Resolved Date Type II or unspecified type diabetes mellitus without mention of complication, not stated as uncontrolled 09/25/2014 Other and unspecified hyperlipidemia 09/25/2014 06/21/2015 BMI 38.0-38.9,adult 09/25/2014 11/30/2014 documented as of this encounter (statuses as of 07/15/2021) [address]21-2015 History of Past illness Narrative* Problem Noted Date Resolved Date Type II or unspecified type diabetes mellitus without mention of complication, not stated as uncontrolled 09/25/2014 Other and unspecified hyperlipidemia 09/25/2014 06/21/2015 BMI 38.0-38.9,adult 09/25/2014 11/30/2014 documented as of this encounter (statuses as of 07/23/2021) [address]21-2015 History of Past illness Narrative* Problem Noted Date Resolved Date Type II or unspecified type diabetes mellitus without mention of complication, not stated as uncontrolled 09/25/2014 Other and unspecified hyperlipidemia 09/25/2014 06/21/2015 BMI 38.0-38.9,adult 09/25/2014 11/30/2014 documented as of this encounter (statuses as of 08/15/2021) [address]21-2015 History of Past illness Narrative* Problem Noted Date Resolved Date Type II or unspecified type diabetes mellitus without mention of complication, not stated as uncontrolled 09/25/2014 Other and unspecified hyperlipidemia 09/25/2014 06/21/2015 BMI 38.0-38.9,adult 09/25/2014 11/30/2014 documented as of this encounter (statuses as of 08/15/2021) [address]21-2015 History of Past illness Narrative* Problem Noted Date Resolved Date Type II or unspecified type diabetes mellitus without mention of complication, not stated as uncontrolled 09/25/2014 Other and unspecified hyperlipidemia 09/25/2014 06/21/2015 BMI 38.0-38.9,adult 09/25/2014 11/30/2014 documented as of this encounter (statuses as of 09/12/2021) [address]21-2015 History of Past illness Narrative* Problem Noted Date Resolved Date Type II or unspecified type diabetes mellitus without mention of complication, not stated as uncontrolled 09/25/2014 Other and unspecified hyperlipidemia 09/25/2014 06/21/2015 BMI 38.0-38.9,adult 09/25/2014 11/30/2014 documented as of this encounter (statuses as of 10/10/2021) [address]21-2015 History of Past illness Narrative* Problem Noted Date Resolved Date Type II or unspecified type diabetes mellitus without mention of complication, not stated as uncontrolled 09/25/2014 Other and unspecified hyperlipidemia 09/25/2014 06/21/2015 BMI 38.0-38.9,adult 09/25/2014 11/30/2014 documented as of this encounter (statuses as of 10/13/2021) [address]21-2015 History of Past illness Narrative* Problem Noted Date Resolved Date Type II or unspecified type diabetes mellitus without mention of complication, not stated as uncontrolled 09/25/2014 Other and unspecified hyperlipidemia 09/25/2014 06/21/2015 BMI 38.0-38.9,adult 09/25/2014 11/30/2014 documented as of this encounter (statuses as of 10/23/2021) [address]21-2015 History of Past illness Narrative* Problem Noted Date Resolved Date Type II or unspecified type diabetes mellitus without mention of complication, not stated as uncontrolled 09/25/2014 Other and unspecified hyperlipidemia 09/25/2014 06/21/2015 BMI 38.0-38.9,adult 09/25/2014 11/30/2014 documented as of this encounter (statuses as of 11/07/2021) [address]21-2015 History of Past illness Narrative* Problem Noted Date Resolved Date Type II or unspecified type diabetes mellitus without mention of complication, not stated as uncontrolled 09/25/2014 Other and unspecified hyperlipidemia 09/25/2014 06/21/2015 BMI 38.0-38.9,adult 09/25/2014 11/30/2014 documented as of this encounter (statuses as of 11/18/2021) [address]21-2015 History of Past illness Narrative* Problem Noted Date Resolved Date Type II or unspecified type diabetes mellitus without mention of complication, not stated as uncontrolled 09/25/2014 Other and unspecified hyperlipidemia 09/25/2014 06/21/2015 BMI 38.0-38.9,adult 09/25/2014 11/30/2014 documented as of this encounter (statuses as of 12/08/2021) [address]21-2015 History of Past illness Narrative* Problem Noted Date Resolved Date Type II or unspecified type diabetes mellitus without mention of complication, not stated as uncontrolled 09/25/2014 Other and unspecified hyperlipidemia 09/25/2014 06/21/2015 BMI 38.0-38.9,adult 09/25/2014 11/30/2014 documented as of this encounter (statuses as of 01/07/2022) [address]21-2015 History of Past illness Narrative* Problem Noted Date Resolved Date Type II or unspecified type diabetes mellitus without mention of complication, not stated as uncontrolled 09/25/2014 Other and unspecified hyperlipidemia 09/25/2014 06/21/2015 BMI 38.0-38.9,adult 09/25/2014 11/30/2014 documented as of this encounter (statuses as of 02/03/2022) [address]21-2015 History of Past illness Narrative* Problem Noted Date Resolved Date Type II or unspecified type diabetes mellitus without mention of complication, not stated as uncontrolled 09/25/2014 Other and unspecified hyperlipidemia 09/25/2014 06/21/2015 BMI 38.0-38.9,adult 09/25/2014 11/30/2014 documented as of this encounter (statuses as of 02/05/2022) [address]21-2015 History of Past illness Narrative* Problem Noted Date Resolved Date Type II or unspecified type diabetes mellitus without mention of complication, not stated as uncontrolled 09/25/2014 Other and unspecified hyperlipidemia 09/25/2014 06/21/2015 BMI 38.0-38.9,adult 09/25/2014 11/30/2014 documented as of this encounter (statuses as of 02/18/2022) [address]21-2015 History of Past illness Narrative* Problem Noted Date Resolved Date Type II or unspecified type diabetes mellitus without mention of complication, not stated as uncontrolled 09/25/2014 Other and unspecified hyperlipidemia 09/25/2014 06/21/2015 BMI 38.0-38.9,adult 09/25/2014 11/30/2014 documented as of this encounter (statuses as of 03/12/2022) [address]21-2015 History of Past illness Narrative* Problem Noted Date Resolved Date Type II or unspecified type diabetes mellitus without mention of complication, not stated as uncontrolled 09/25/2014 Other and unspecified hyperlipidemia 09/25/2014 06/21/2015 BMI 38.0-38.9,adult 09/25/2014 11/30/2014 documented as of this encounter (statuses as of 04/16/2022) [address]21-2015 History of Past illness Narrative* Problem Noted Date Resolved Date Type II or unspecified type diabetes mellitus without mention of complication, not stated as uncontrolled 09/25/2014 Other and unspecified hyperlipidemia 09/25/2014 06/21/2015 BMI 38.0-38.9,adult 09/25/2014 11/30/2014 documented as of this encounter (statuses as of 04/30/2022) [address]21-2015 History of Past illness Narrative* Problem Noted Date Resolved Date Type II or unspecified type diabetes mellitus without mention of complication, not stated as uncontrolled 09/25/2014 Other and unspecified hyperlipidemia 09/25/2014 06/21/2015 BMI 38.0-38.9,adult 09/25/2014 11/30/2014 documented as of this encounter (statuses as of 05/01/2022) [address]21-2015 History of Past illness Narrative* Problem Noted Date Resolved Date Type II or unspecified type diabetes mellitus without mention of complication, not stated as uncontrolled 09/25/2014 Other and unspecified hyperlipidemia 09/25/2014 06/21/2015 BMI 38.0-38.9,adult 09/25/2014 11/30/2014 documented as of this encounter (statuses as of 05/04/2022) [address]21-2015 History of Past illness Narrative* Problem Noted Date Resolved Date Type II or unspecified type diabetes mellitus without mention of complication, not stated as uncontrolled 09/25/2014 Other and unspecified hyperlipidemia 09/25/2014 06/21/2015 BMI 38.0-38.9,adult 09/25/2014 11/30/2014 documented as of this encounter (statuses as of 06/01/2022) [address]21-2015 History of Past illness Narrative* Problem Noted Date Resolved Date Type II or unspecified type diabetes mellitus without mention of complication, not stated as uncontrolled 09/25/2014 Other and unspecified hyperlipidemia 09/25/2014 06/21/2015 BMI 38.0-38.9,adult 09/25/2014 11/30/2014 documented as of this encounter (statuses as of 06/05/2022) [address]21-2015 History of Past illness Narrative* Problem Noted Date Resolved Date Type II or unspecified type diabetes mellitus without mention of complication, not stated as uncontrolled 09/25/2014 Other and unspecified hyperlipidemia 09/25/2014 06/21/2015 BMI 38.0-38.9,adult 09/25/2014 11/30/2014 documented as of this encounter (statuses as of 06/08/2022) [address]21-2015 History of Past illness Narrative* Problem Noted Date Resolved Date Type II or unspecified type diabetes mellitus without mention of complication, not stated as uncontrolled 09/25/2014 Other and unspecified hyperlipidemia 09/25/2014 06/21/2015 BMI 38.0-38.9,adult 09/25/2014 11/30/2014 documented as of this encounter (statuses as of 06/19/2022) [address] History of Past illness Narrative* Problem Noted Date Resolved Date Type II or unspecified type diabetes mellitus without mention of complication, not stated as uncontrolled 09/25/2014 Other and unspecified hyperlipidemia 09/25/2014 06/21/2015 BMI 38.0-38.9,adult 09/25/2014 11/30/2014 documented as of this encounter (statuses as of 06/29/2022) [address]21-2015 History of Past illness Narrative* Problem Noted Date Resolved Date Type II or unspecified type diabetes mellitus without mention of complication, not stated as uncontrolled 09/25/2014 Other and unspecified hyperlipidemia 09/25/2014 06/21/2015 BMI 38.0-38.9,adult 09/25/2014 11/30/2014 documented as of this encounter (statuses as of 08/06/2022) [address]21-2015 History of Past illness Narrative* Problem Noted Date Resolved Date Type II or unspecified type diabetes mellitus without mention of complication, not stated as uncontrolled 09/25/2014 Other and unspecified hyperlipidemia 09/25/2014 06/21/2015 BMI 38.0-38.9,adult 09/25/2014 11/30/2014 documented as of this encounter (statuses as of 08/11/2022) [facility] of [facility] Narrative* Problem Noted Date Resolved Date Type II or unspecified type diabetes mellitus without mention of complication, not stated as uncontrolled 09/25/2014 Other and unspecified hyperlipidemia 09/25/2014 06/21/2015 BMI 38.0-38.9,adult 09/25/2014 11/30/2014 documented as of this encounter (statuses as of 09/03/2022) [address]21-2015 History of Past illness Narrative* Problem Noted Date Diagnosed Date Resolved Date Type II or unspecified type diabetes mellitus without mention of complication, not stated as uncontrolled 09/25/2014 02/19/2015 Other and unspecified hyperlipidemia 09/25/2014 06/21/2015 BMI 38.0-38.9,adult 09/25/2014 12/01/19 15 documented as of this encounter (statuses as of 09/17/2022) [address]21-2015 History of Past illness Narrative* Problem Noted Date Diagnosed Date Resolved Date Type II or unspecified type diabetes mellitus without mention of complication, not stated as uncontrolled 09/25/2014 02/19/2015 Other and unspecified hyperlipidemia 09/25/2014 06/21/2015 BMI 38.0-38.9,adult 09/25/2014 12/01/19 15 documented as of this encounter (statuses as of 09/23/2022) [address]21-2015 History of Past illness Narrative* Problem Noted Date Diagnosed Date Resolved Date Type II or unspecified type diabetes mellitus without mention of complication, not stated as uncontrolled 09/25/2014 02/19/2015 Other and unspecified hyperlipidemia 09/25/2014 06/21/2015 BMI 38.0-38.9,adult 09/25/2014 12/01/19 15 documented as of this encounter (statuses as of 10/15/2022) [facility] Narrative* Problem Noted Date Diagnosed Date Resolved Date Type II or unspecified type diabetes mellitus without mention of complication, not stated as uncontrolled 09/25/2014 02/19/2015 Other and unspecified hyperlipidemia 09/25/2014 06/21/2015 BMI 38.0-38.9,adult 09/25/2014 12/01/19 15 documented as of this encounter (statuses as of 11/03/2022) [facility] of [facility] Narrative* Problem Noted Date Diagnosed Date Resolved Date Type II or unspecified type diabetes mellitus without mention of complication, not stated as uncontrolled 09/25/2014 02/19/2015 Other and unspecified hyperlipidemia 09/25/2014 06/21/2015 BMI 38.0-38.9,adult 09/25/2014 12/01/19 15 documented as of this encounter (statuses as of 12/11/2022) [facility] of [facility] illness Narrative* Problem Noted Date Diagnosed Date Resolved Date Type II or unspecified type diabetes mellitus without mention of complication, not stated as uncontrolled 09/25/2014 02/19/2015 Other and unspecified hyperlipidemia 09/25/2014 06/21/2015 BMI 38.0-38.9,adult 09/25/2014 12/01/19 15 documented as of this encounter (statuses as of 12/18/2022) [facility] Narrative* Problem Noted Date Diagnosed Date Resolved Date Type II or unspecified type diabetes mellitus without mention of complication, not stated as uncontrolled 09/25/2014 02/19/2015 Other and unspecified hyperlipidemia 09/25/2014 06/21/2015 BMI 38.0-38.9,adult 09/25/2014 12/01/19 15 documented as of this encounter (statuses as of 01/12/2023) [facility] of [facility] illness Narrative* Problem Noted Date Diagnosed Date Resolved Date Type II or unspecified type diabetes mellitus without mention of complication, not stated as uncontrolled 09/25/2014 02/19/2015 Other and unspecified hyperlipidemia 09/25/2014 06/21/2015 BMI 38.0-38.9,adult 09/25/2014 12/01/19 15 documented as of this encounter (statuses as of 01/15/2023) [address]21-2015 History of Past illness Narrative* Problem Noted Date Diagnosed Date Resolved Date Type II or unspecified type diabetes mellitus without mention of complication, not stated as uncontrolled 09/25/2014 02/19/2015 Other and unspecified hyperlipidemia 09/25/2014 06/21/2015 BMI 38.0-38.9,adult 09/25/2014 12/01/19 15 documented as of this encounter (statuses as of 02/11/2023) [address]21-2015 History of Past illness Narrative* Problem Noted Date Diagnosed Date Resolved Date Type II or unspecified type diabetes mellitus without mention of complication, not stated as uncontrolled 09/25/2014 02/19/2015 Other and unspecified hyperlipidemia 09/25/2014 06/21/2015 BMI 38.0-38.9,adult 09/25/2014 12/01/19 15 documented as of this encounter (statuses as of 04/12/2023) [address]21-2015 History of Past illness Narrative* Problem Noted Date Diagnosed Date Resolved Date Type II or unspecified type diabetes mellitus without mention of complication, not stated as uncontrolled 09/25/2014 02/19/2015 Other and unspecified hyperlipidemia 09/25/2014 06/21/2015 BMI 38.0-38.9,adult 09/25/2014 12/01/19 15 documented as of this encounter (statuses as of 04/26/2023) [address]21-2015 History of Past illness Narrative* Problem Noted Date Diagnosed Date Resolved Date Type II or unspecified type diabetes mellitus without mention of complication, not stated as uncontrolled 09/25/2014 02/19/2015 Other and unspecified hyperlipidemia 09/25/2014 06/21/2015 BMI 38.0-38.9,adult 09/25/2014 12/01/19 15 documented as of this encounter (statuses as of 04/27/2023) [address]-2015 History of Past illness Narrative* Problem Noted Date Diagnosed Date Resolved Date Type II or unspecified type diabetes mellitus without mention of complication, not stated as uncontrolled 09/25/2014 02/19/2015 Other and unspecified hyperlipidemia 09/25/2014 06/21/2015 BMI 38.0-38.9,adult 09/25/2014 12/01/19 15 documented as of this encounter (statuses as of 04/29/2023) [facility] Narrative* Problem Noted Date Diagnosed Date Resolved Date Type II or unspecified type diabetes mellitus without mention of complication, not stated as uncontrolled 09/25/2014 02/19/2015 Other and unspecified hyperlipidemia 09/25/2014 06/21/2015 BMI 38.0-38.9,adult 09/25/2014 12/01/19 15 documented as of this encounter (statuses as of 05/10/2023) [facility] Narrative* Problem Noted Date Diagnosed Date Resolved Date Type II or unspecified type diabetes mellitus without mention of complication, not stated as uncontrolled 09/25/2014 02/19/2015 Other and unspecified hyperlipidemia 09/25/2014 06/21/2015 BMI 38.0-38.9,adult 09/25/2014 12/01/19 15 documented as of this encounter (statuses as of 06/08/2023) [facility] Vitamin B12 deficiency- Primary Other [facility]12 deficiency- Primary Other B-complex [facility] Diagnosis Vitamin D deficiency- Primary Unspecified vitamin D deficiency Abnormal TSH Other abnormal clinical finding Essential hypertension Unspecified essential hypertension Mixed hyperlipidemia Controlled type 2 diabetes mellitus without complication, without long-term current use of insulin (HCC) [facility] Vitamin B12 deficiency- Primary Other B-complex [facility] Leukocytosis, unspecified type- Primary Hypothyroidism, unspecified type Diabetes mellitus type 2 with complications (HCC) Type II or unspecified type diabetes mellitus with unspecified complication, not stated as uncontrolled [facility] Diagnosis Vitamin B12 deficiency- Primary Other B-complex deficiencies [facility] Diagnosis Diabetes mellitus type 2 with complications (HCC)- Primary Type II or unspecified type diabetes mellitus with unspecified complication, not stated as uncontrolled [facility] Diagnosis Vitamin B12 deficiency- Primary Other B-complex deficiencies documented in this encounter [facility]* Diagnosis Diabetes mellitus type 2 with complications (HCC)- Primary Type II or unspecified type diabetes mellitus with unspecified complication, not stated as uncontrolled Mixed hyperlipidemia Essential hypertension Unspecified essential hypertension Paroxysmal A-fib (HCC) Atrial fibrillation [facility]* Diagnosis Breast cancer screening by mammogram- Primary documented in this encounter [facility] note* Diagnosis Vitamin B 12 deficiency- Primary Other B-complex deficiencies documented in this encounter [facility] note* Diagnosis Diabetes mellitus type 2 with complications (HCC)- Primary Type II or unspecified type diabetes mellitus with unspecified complication, not stated as uncontrolled Essential hypertension Unspecified essential hypertension Colon cancer screening Special screening for malignant neoplasms, colon documented in this encounter [facility] note* Diagnosis Acute right-sided low back pain with right-sided sciatica- Primary Bronchitis Bronchitis, not specified as acute or chronic documented in this encounter [facility] note* Diagnosis Onset Date Resolution Status Essential (primary) hypertension chronic Hyperlipidemia chronic Nonobstructive atheroscleros is of coronary artery chronic Paroxysmal atrial flutter ch ronic Hypothyroidism acute Neurologic abnormality acute CVA (cerebral vascular accident) February 06, 2020 chronic Essential (primary) hypertension chronic Mitral valve annular calcification chronic Paroxysmal atrial flutter ch ronic Type 2 diabetes mellitus [facility] Work Phone: Evaluation note* Diagnosis Onset Date [...] flutter ch ronic Type 2 diabetes mellitus [facility] Work Phone: Evaluation note* Diagnosis History of recent hospitalization- Primary Personal history of unspecified disease Cerebrovascular accident (CVA), unspecified mechanism (HCC) Weakness of right lower extremity Urinary frequency Other fatigue Blood in stool Left upper quadrant abdominal tenderness without rebound tenderness Nausea and vomiting, unspecified vomiting type [facility] Diagnosis Urinary tract infection without hematuria, site unspecified- Primary [facility]* Diagnosis Onset Date Resolution Status Hyperlipidemia chronic Nonobstructive atherosclerosis of coronary artery chronic [facility] Work Phone: Evaluation note* Diagnosis Type 2 diabetes mellitus with hyperglycemia, without long-term current use of insulin (HCC)- Primary Essential hypertension Unspecified essential hypertension Vitamin B 12 deficiency Other B-complex deficiencies Acute vaginitis Vaginitis and vulvovaginitis, unspecified [facility]* Diagnosis Acute vaginitis Vaginitis and vulvovaginitis, unspecified [facility]* Diagnosis Type 2 diabetes mellitus with hyperglycemia, without long-term current use of insulin (HCC)- Primary Acute vaginitis Vaginitis and vulvovaginitis, unspecified Cerebrovascular accident (CVA), unspecified mechanism (HCC) Dysuria [facility]* Diagnosis Vitamin B12 deficiency- Primary Other B-complex deficiencies [facility]* Diagnosis Vitamin B 12 deficiency- Primary Other B-complex deficiencies [facility]* Diagnosis Essential hypertension- Primary Unspecified essential hypertension Mixed hyperlipidemia Vitamin B 12 deficiency Other B-complex deficiencies Type 2 diabetes mellitus with hyperglycemia, without long-term current use of insulin (HCC) Paroxysmal A-fib (HCC) Atrial fibrillation [facility]* Diagnosis Type 2 diabetes mellitus with hyperglycemia, without long-term current use of insulin (HCC)- Primary Cerebrovascular accident (CVA), unspecified mechanism (HCC) Mixed hyperlipidemia Essential hypertension Unspecified essential hypertension [facility]* Diagnosis Acute right-sided low back pain with right-sided sciatica- Primary Chronic low back pain, unspecified back pain laterality, unspecified whether sciatica present Closed fracture of second lumbar vertebra with routine healing, unspecified fracture morphology, subsequent encounter [facility]* Diagnosis Vitamin B 12 deficiency- Primary Other B-complex deficiencies documented in this encounter [facility] note* Diagnosis Occipital stroke (HCC) Unspecified cerebral artery occlusion with cerebral infarction Type 2 diabetes mellitus with hyperglycemia, without long-term current use of insulin (HCC) [facility]* Diagnosis Vitamin B 12 deficiency- Primary Other B-complex deficiencies documented in this encounter [facility] note* Diagnosis Type 2 diabetes mellitus with hyperglycemia, without long-term current use of insulin (HCC) documented in this encounter [facility] note* Diagnosis Uncontrolled type 2 diabetes [...] Hypothyroidism, unspecified type documented in this encounter [facility] note* Diagnosis Uncontrolled type 2 diabetes [...] Hypothyroidism, unspecified type documented in this encounter [facility] note* Diagnosis Uncontrolled type 2 diabetes [...] Other B-complex deficiencies [facility] Diagnosis Uncontrolled type 2 diabetes mellitus [...] right lower extremity [facility] this [facility] Diagnosis Uncontrolled type 2 diabetes mellitus [...] Nontoxic uninodular goiter [facility] this [facility] Diagnosis Uncontrolled type 2 diabetes mellitus [...] Nontoxic uninodular goiter [facility] this [facility] Diagnosis Uncontrolled type 2 diabetes mellitus [...] Nontoxic uninodular goiter [facility] this [facility] Diagnosis Uncontrolled type 2 diabetes mellitus [...] Other B-complex deficiencies [facility] this [facility] Diagnosis Uncontrolled type [...] stated as uncontrolled documented in this encounter [facility] note* Diagnosis Uncontrolled type 2 diabetes [...] Other B-complex deficiencies [facility] this [facility] Diagnosis Uncontrolled type 2 diabetes mellitus [...] Nontoxic uninodular goiter documented in this [facility] Diagnosis Uncontrolled type [...] Nontoxic uninodular goiter documented in this [facility] Diagnosis Uncontrolled type [...] other specified site documented in this encounter [facility] note* Diagnosis Uncontrolled type 2 diabetes [...] Other B-complex deficiencies [facility]* Diagnosis Uncontrolled type 2 diabetes mellitus [...] Nontoxic uninodular goiter documented in this [facility] Diagnosis Uncontrolled type [...] site Acute cystitis with hematuria Acute cystitis group home (current) use of oral hypoglycemic drugs documented in this encounter [facility] note* Diagnosis Onset Date Resolution Status Admit Date CVA (cerebral vascular accident) acu te September 06, 2024 7:55am Hyperlipidemia chronic September 06, 2024 7:55am Nonobstructive atheroscleros is of coronary artery chronic September 06 7:55am Essential (primary) hypertension ivana ctive September 06, 2024 7:55am Paroxysmal atrial flutter inactive September 06, 2024 7:55am [facility] Work Phone: Evaluation note* Diagnosis Uncontrolled type 2 diabetes mellitus [...] hypertension Unspecified essential hypertension Hypertriglyceridemia Pure hyperglyceridemia Nephrolithiasis- Primary Calculus of kidney Type 2 diabetes mellitus with hyperglycemia, without long-term current use of insulin (HCC) Essential (primary) hypertension Unspecified essential hypertension [facility] Diagnosis Uncontrolled type 2 diabetes mellitus [...] hypertension Unspecified essential hypertension Hypertriglyceridemia Pure hyperglyceridemia Medicare annual wellness visit, subsequent- Primary Routine general medical examination at a health care facility Screening for depression Encounter for screening examination for other mental health and behavioral disorders [facility] Author Dr. Patiño [facility] August 25, 2022 6:33pm Note Date/Time August 25, 2022 6:23 pm [facility] Medical Records Department [address] [place] [address] H&P Exam - Hospitalist 08/25/22 1813 MR#: [id number] Acct: [id number] Name: BRITNEY CANADA Rep #:[id number] : 1945 76 From: Christal Patiño MD PCP: Dr. Jones Velasquez MD Status:ADM I N Location: [place] [address] HPI - General General Date of Admission: 08/25/22 Date of Service: 08/25/22 Chief Complaint: Difficulty expressing words HPI Narrative BRITNEY CANADA, is a 76 F with a history of CVA 3 years ago, paroxysmal atrial flutter on Eliquis, hypertension, thyroidism type 2 diabetes who scented to [facility] 08/25/2022 due to difficulty getting her words [...] endorse any other focal or specific complaints. [facility] Medical History CVA (cerebral vascular accident) (02/06/20) [...] mcg solution for injection 1,000 mcg IM [id number]/08/20 [History Last Taken Unknown] atorvastatin 80 mg [...] through XII intact, patient would not perform [id number], no clonus in lower extremities Skin: No [...] % (Auto) 68.9, Lymph % (Auto) 23.7, [place] % (Auto) 6.2, Eos % (Auto) 0.2, [...] documentation, 60minutes Charges/Coding Visit Charges Inpatient E&M: 85702 Init Hosp L2 08/25/22 1833 <Electronically signed by Christal Patiño MD> Cosigner Signature (if applicable): CC: Dr. Jones Velasquez MD; Dr. Christal Patiño MD~ Signed [facility] Work Phone: Hospital course Narrative No data available for this section [facility] Hospital Discharge instructionsAdditional Instructions Take antibiotics as prescribed use other prescriptions as prescribed use the Endocet for severe pain make sure you take a Zofran with this as this will upset your stomach. Use Tylenol for mild to moderate pain. Follow-up with the urologist I referred to. Return with worsening symptoms or other concerns. Your CT scan did show evidence of kidney stones.[facility] Work Phone: Reason for referral (narrative)* Diagnostic Procedure Only (Routine) - Pending Review Specialty Diagnoses / Procedures Referred By Viji t Referred To Contact BR IMAGING Diagnoses Breast cancer screening by mammogram Procedures GISELLE SCREENING SCREENING MAMMOGRAPHY BI 2-VIEW BREAST INC CAD Jones Velasquez MD [address] [place] [address] [facility] [address] [place] [address] Referral ID Status Reason Start Date Expiration Date Visits Requested Visits Authorized [id number] Pending Review Auto-Generat ed Referral 04/16/2022 05/15/2023 1 1 [facility] for referral (narrative)* Diagnostic Procedure Only (Routine) - Closed Specialty Diagnoses / Procedures Referred By Contac t Referred To Contact XR IMAGING Diagnoses Acute right-sided low back pain with right-sided sciatica Pain of right lower extremity Procedures XR LUMBAR GENERAL 3V AP/LAT/L5-S1 RADEX SPINE LUMBOSACRAL 2/3 VIEWS Astrid Muse APRN.ADAPTIVE PHYSICAL EDUCATION TEACHER [address] [place] [address] [place] [address] Referral ID Status Reason Start Date Expiration Date V isits Requested Visits Authorized [id number] Closed Auto-Generate d Referral 07/13/2022 08/12/2023 1 1 [facility] for referral (narrative)* Diagnostic Procedure Only (Routine) - Authorized Specialty Diagnoses / Procedures Referred By Contac t Referred To Contact US IMAGING Diagnoses Thyroid nodule Procedures US THYROID/PARATHYROID US SOFT TISSUE HEAD & NECK REAL TIME IMGE Astrid Meyers APRN.ADAPTIVE PHYSICAL EDUCATION TEACHER [address] [place] [address] [place] [address] Referral ID Status Reason Start Date Expiration Date Visits Requested Visits Authorized [id number] Authorized Auto-Generat ed Referral 03/03/2025 1 1 [facility] for referral (narrative)No reason for referral information available[facility] Work Phone: Reason for visit Narrative* Diagnostic Procedure Only (Routine) - Closed Specialty Diagnoses / Procedures Referred By Contac t Referred To Contact XR IMAGING Diagnoses Acute right-sided low back pain with right-sided sciatica Pain of right lower extremity Procedures XR LUMBAR GENERAL 3V AP/LAT/L5-S1 RADEX SPINE LUMBOSACRAL 2/3 VIEWS Micha, Astrid, CONDUIT HELPER.ADAPTIVE PHYSICAL EDUCATION TEACHER [address] [place] [address] [place] [address] Referral ID Status Reason Start Date Expiration Date V isits Requested Visits Authorized [id number] Closed Auto-Generate d Referral 07/13/2022 08/12/[address] [facility] Medications Administered Section Active Administered Medications - [...] 1,000 mcg De ltoid, Left Advance Directives Documents on File Type Date Recorded Patient Manager Performance Expl anation Advance Directive(s) 02/26/2015 1:30 PM Documents on File Type Date Recorded Patient Manager Performance Expl anation Advance Directive(s) 02/26/2015 1:30 PM Advance Directive Response Recorded Date/ Time Name of Medical Power of Full Fashioned Garment Knitter Mehrdad Wilson August 25, 2022 4:34pm Advance Directives Yes April 01, 2020 8:21am Living Will Yes August 25, 2022 4:34pm Power of Full Fashioned Garment Knitter Yes August 25 4:34pm Advance Directive Response Recorded Date/ Time Name of Medical Power of Full Fashioned Garment Knitter Mehrdad gonzalez August 25, 2022 7:03pm Advance Directives Yes April 01, 2020 8:21am Living Will Yes August 25, 2022 7:03pm Power of Full Fashioned Garment Knitter Yes August 25 7:03pm Advance Directive Response Recorded Date/ Time Name of Medical Power of Full Fashioned Garment Knitter Mehrdad gonzalez August 25, 2022 7:03pm Advance Directives Yes September 03 4:00pm Living Will Yes September 03, 2022 4:00pm Power of Full Fashioned Garment Knitter Yes September 03 4:00pm Advance Directive Response Recorded Date/ Time Advance Directives Yes September 03 4:00pm Advance Directive Response Recorded Date/ Time Do you have a Healthcare Power of Full Fashioned Garment Knitter? Yes September 08, 2024 10:27am Advance Directives Yes September 03 4:00pm Chief Complaint and Reason for Visit Chief Complaint Admit Date 1 Y FU September 06, 2024 7:55a m FLANK PAIN September 08, 2024 10:04 am Reason for Visit Admit Date CVA (cerebral vascular accident) September 7:55am Hyperlipidemia September 06, 2024 7:55a m Nonobstructive atherosclerosis of delvalle ry artery September 06, 2024 7:55am Essential (primary) hypertension September 7:55am Paroxysmal atrial flutter September 06, 2024 7:55am Chief Complaint SCREENING 1 Y FU LBP/R [...] 1 Y September 06, 2024 7:55a m Family History Relationship Condition Age at Onset Recorded Date/T pina father Myocardial infarction Unknown brother Myocardial infarction Unknown mother Cerebrovascular accident (CVA) Unknown Cardiac disease Unknown grandmother Myocardial infarction Unknown uncle Myocardial infarction Unknown Reason for Referral Specialty Diagnoses / Procedures Referred By Viji t Referred To Contact Neurology Diagnoses Cerebrovascular accident (CVA), unspecified mechanism (HCC) Weakness of right lower extremity Procedures CONSULT TO NEUROLOGY OFFICE/OUTPATIENT [facility] MDM 60-74 MINUTES Older, Astrid, CONDUIT HELPER.ADAPTIVE PHYSICAL EDUCATION TEACHER [address] [place] [address] Referral ID Status Reason Start Date Expiration Date Visits Requested Visits Authorized [id number] Pending Review PCP Requested Referral 09/03/2022 09/03/2023 1 1 Specialty Diagnoses / Procedures Referred By Contac t Referred To Contact Pain Management Diagnoses Acute right-sided low back pain with right-sided sciatica Chronic low back pain, unspecified back pain laterality, unspecified whether sciatica present Closed fracture of second lumbar vertebra with routine healing, unspecified fracture morphology, subsequent encounter Procedures CONSULT TO PAIN MGT OFFICE/OUTPATIENT NEW HIGH MDM 60-74 MINUTES Older, FERCHO Resendiz.ADAPTIVE PHYSICAL EDUCATION TEACHER [address] [place] [address] Referral ID Status Reason Start Date Expiration Date Visits Requested Visits Authorized [id number] Pending Review PCP Requested Referral 07/16/2022 07/16/2023 1 1 Specialty Diagnoses / Procedures Referred By Contac t Referred To Contact General Surgery Diagnoses Thyroid nodule Procedures CONSULT TO GENERAL SURGERY OFFICE/OUTPATIENT NEW HIGH MDM 60 MINUTES Older, FERCHO Resendiz.ADAPTIVE PHYSICAL EDUCATION TEACHER [address] [place] [address] Referral ID Status Reason Start Date Expiration Date Visits Requested Visits Authorized [id number] Authorized PCP Requested Referral 02/10/2024 02/09/2025 1 1 Summary Purpose Additional Source Comments Source Comments (unrecognize d section and content) In the event this informatio n is protected by the Federal Confidentiality of Alcohol and Drug Abuse Patient Records regulations: The Federal rules restrict any use of the information to criminally investigate or prosecute any alcohol or drug abuse patient.[facility] the event this information is protected by the Federal Confidentiality of Alcohol and Drug Abuse Patient Records regulations: The Federal rules restrict any use of the information to criminally investigate or prosecute any alcohol or drug abuse patient.[facility] the event this information is protected by the Federal Confidentiality of Alcohol and Drug Abuse Patient Records regulations: The Federal rules restrict any use of the information to criminally investigate or prosecute any alcohol or drug abuse patient.[facility] the event this information is protected by the Federal Confidentiality of Alcohol and Drug Abuse Patient Records regulations: The Federal rules restrict any use of the information to criminally investigate or prosecute any alcohol or drug abuse patient.[facility] the event this information is protected by the Federal Confidentiality of Alcohol and Drug Abuse Patient Records regulations: The Federal rules restrict any use of the information to criminally investigate or prosecute any alcohol or drug abuse patient.[facility] the event this information is protected by the Federal Confidentiality of Alcohol and Drug Abuse Patient Records regulations: The Federal rules restrict any use of the information to criminally investigate or prosecute any alcohol or drug abuse patient.[facility] the event this information is protected by the Federal Confidentiality of Alcohol and Drug Abuse Patient Records regulations: The Federal rules restrict any use of the information to criminally investigate or prosecute any alcohol or drug abuse patient.[facility] the event this information is protected by the Federal Confidentiality of Alcohol and Drug Abuse Patient Records regulations: The Federal rules restrict any use of the information to criminally investigate or prosecute any alcohol or drug abuse patient.[facility] the event this information is protected by the Federal Confidentiality of Alcohol and Drug Abuse Patient Records regulations: The Federal rules restrict any use of the information to criminally investigate or prosecute any alcohol or drug abuse patient.[facility] the event this information is protected by the Federal Confidentiality of Alcohol and Drug Abuse Patient Records regulations: The Federal rules restrict any use of the information to criminally investigate or prosecute any alcohol or drug abuse patient.[facility] the event this information is protected by the Federal Confidentiality of Alcohol and Drug Abuse Patient Records regulations: The Federal rules restrict any use of the information to criminally investigate or prosecute any alcohol or drug abuse patient.[facility] the event this information is protected by the Federal Confidentiality of Alcohol and Drug Abuse Patient Records regulations: The Federal rules restrict any use of the information to criminally investigate or prosecute any alcohol or drug abuse patient.[facility]In the event this information is protected by the Federal Confidentiality of Alcohol and Drug Abuse Patient Records regulations: The Federal rules restrict any use of the information to criminally investigate or prosecute any alcohol or drug abuse patient.[facility] CampusIn the event this information is protected by the Federal Confidentiality of Alcohol and Drug Abuse Patient Records regulations: The Federal rules restrict any use of the information to criminally investigate or prosecute any alcohol or drug abuse patient.[facility] CampusIn the event this information is protected by the Federal Confidentiality of Alcohol and Drug Abuse Patient Records regulations: The Federal rules restrict any use of the information to criminally investigate or prosecute any alcohol or drug abuse patient.[facility] CampusIn the event this information is protected by the Federal Confidentiality of Alcohol and Drug Abuse Patient Records regulations: The Federal rules restrict any use of the information to criminally investigate or prosecute any alcohol or drug abuse patient.[facility] CampusIn the event this information is protected by the Federal Confidentiality of Alcohol and Drug Abuse Patient Records regulations: The Federal rules restrict any use of the information to criminally investigate or prosecute any alcohol or drug abuse patient.[facility]In the event this information is protected by the Federal Confidentiality of Alcohol and Drug Abuse Patient Records regulations: The Federal rules restrict any use of the information to criminally investigate or prosecute any alcohol or drug abuse patient.[facility]In the event this information is protected by the Federal Confidentiality of Alcohol and Drug Abuse Patient Records regulations: The Federal rules restrict any use of the information to criminally investigate or prosecute any alcohol or drug abuse patient.[facility]In the event this information is protected by the Federal Confidentiality of Alcohol and Drug Abuse Patient Records regulations: The Federal rules restrict any use of the information to criminally investigate or prosecute any alcohol or drug abuse patient.[facility]In the event this information is protected by the Federal Confidentiality of Alcohol and Drug Abuse Patient Records regulations: The Federal rules restrict any use of the information to criminally investigate or prosecute any alcohol or drug abuse patient.[facility]In the event this information is protected by the Federal Confidentiality of Alcohol and Drug Abuse Patient Records regulations: The Federal rules restrict any use of the information to criminally investigate or prosecute any alcohol or drug abuse patient.[facility] CampusIn the event this information is protected by the Federal Confidentiality of Alcohol and Drug Abuse Patient Records regulations: The Federal rules restrict any use of the information to criminally investigate or prosecute any alcohol or drug abuse patient.[facility] CampusIn the event this information is protected by the Federal Confidentiality of Alcohol and Drug Abuse Patient Records regulations: The Federal rules restrict any use of the information to criminally investigate or prosecute any alcohol or drug abuse patient.[facility] CampusIn the event this information is protected by the Federal Confidentiality of Alcohol and Drug Abuse Patient Records regulations: The Federal rules restrict any use of the information to criminally investigate or prosecute any alcohol or drug abuse patient.[facility] CampusIn the event this information is protected by the Federal Confidentiality of Alcohol and Drug Abuse Patient Records regulations: The Federal rules restrict any use of the information to criminally investigate or prosecute any alcohol or drug abuse patient.[facility] CampusIn the event this information is protected by the Federal Confidentiality of Alcohol and Drug Abuse Patient Records regulations: The Federal rules restrict any use of the information to criminally investigate or prosecute any alcohol or drug abuse patient.[facility] [place] CampusIn the event this information is protected by the Federal Confidentiality of Alcohol and Drug Abuse Patient Records regulations: The Federal rules restrict any use of the information to criminally investigate or prosecute any alcohol or drug abuse patient.[facility] [place] CampusIn the event this information is protected by the Federal Confidentiality of Alcohol and Drug Abuse Patient Records regulations: The Federal rules restrict any use of the information to criminally investigate or prosecute any alcohol or drug abuse patient.[facility] [place] CampusIn the event this information is protected by the Federal Confidentiality of Alcohol and Drug Abuse Patient Records regulations: The Federal rules restrict any use of the information to criminally investigate or prosecute any alcohol or drug abuse patient.[facility] [place] CampusIn the event this information is protected by the Federal Confidentiality of Alcohol and Drug Abuse Patient Records regulations: The Federal rules restrict any use of the information to criminally investigate or prosecute any alcohol or drug abuse patient.[facility] [place] CampusIn the event this information is protected by the Federal Confidentiality of Alcohol and Drug Abuse Patient Records regulations: The Federal rules restrict any use of the information to criminally investigate or prosecute any alcohol or drug abuse patient.[facility] [place] CampusIn the event this information is protected by the Federal Confidentiality of Alcohol and Drug Abuse Patient Records regulations: The Federal rules restrict any use of the information to criminally investigate or prosecute any alcohol or drug abuse patient.[facility] [place] CampusIn the event this information is protected by the Federal Confidentiality of Alcohol and Drug Abuse Patient Records regulations: The Federal rules restrict any use of the information to criminally investigate or prosecute any alcohol or drug abuse patient.[facility] [place] CampusIn the event this information is protected by the Federal Confidentiality of Alcohol and Drug Abuse Patient Records regulations: The Federal rules restrict any use of the information to criminally investigate or prosecute any alcohol or drug abuse patient.[facility] [place] CampusIn the event this information is protected by the Federal Confidentiality of Alcohol and Drug Abuse Patient Records regulations: The Federal rules restrict any use of the information to criminally investigate or prosecute any alcohol or drug abuse patient.[facility] [place] CampusIn the event this information is protected by the Federal Confidentiality of Alcohol and Drug Abuse Patient Records regulations: The Federal rules restrict any use of the information to criminally investigate or prosecute any alcohol or drug abuse patient.[facility] [place] CampusIn the event this information is protected by the Federal Confidentiality of Alcohol and Drug Abuse Patient Records regulations: The Federal rules restrict any use of the information to criminally investigate or prosecute any alcohol or drug abuse patient.[facility] [place] CampusIn the event this information is protected by the Federal Confidentiality of Alcohol and Drug Abuse Patient Records regulations: The Federal rules restrict any use of the information to criminally investigate or prosecute any alcohol or drug abuse patient.[facility] [place] CampusIn the event this information is protected by the Federal Confidentiality of Alcohol and Drug Abuse Patient Records regulations: The Federal rules restrict any use of the information to criminally investigate or prosecute any alcohol or drug abuse patient.[facility] [place] CampusIn the event this information is protected by the Federal Confidentiality of Alcohol and Drug Abuse Patient Records regulations: The Federal rules restrict any use of the information to criminally investigate or prosecute any alcohol or drug abuse patient.[facility] [place] CampusIn the event this information is protected by the Federal Confidentiality of Alcohol and Drug Abuse Patient Records regulations: The Federal rules restrict any use of the information to criminally investigate or prosecute any alcohol or drug abuse patient.[facility] [place] CampusIn the event this information is protected by the Federal Confidentiality of Alcohol and Drug Abuse Patient Records regulations: The Federal rules restrict any use of the information to criminally investigate or prosecute any alcohol or drug abuse patient.[facility] [place] CampusIn the event this information is protected by the Federal Confidentiality of Alcohol and Drug Abuse Patient Records regulations: The Federal rules restrict any use of the information to criminally investigate or prosecute any alcohol or drug abuse patient.[facility] [place] CampusIn the event this information is protected by the Federal Confidentiality of Alcohol and Drug Abuse Patient Records regulations: The Federal rules restrict any use of the information to criminally investigate or prosecute any alcohol or drug abuse patient.[facility] [place] CampusIn the event this information is protected by the Federal Confidentiality of Alcohol and Drug Abuse Patient Records regulations: The Federal rules restrict any use of the information to criminally investigate or prosecute any alcohol or drug abuse patient.[facility] [place] CampusIn the event this information is protected by the Federal Confidentiality of Alcohol and Drug Abuse Patient Records regulations: The Federal rules restrict any use of the information to criminally investigate or prosecute any alcohol or drug abuse patient.[facility] [place] CampusIn the event this information is protected by the Federal Confidentiality of Alcohol and Drug Abuse Patient Records regulations: The Federal rules restrict any use of the information to criminally investigate or prosecute any alcohol or drug abuse patient.[facility] [place] CampusIn the event this information is protected by the Federal Confidentiality of Alcohol and Drug Abuse Patient Records regulations: The Federal rules restrict any use of the information to criminally investigate or prosecute any alcohol or drug abuse patient.[facility] [place] CampusIn the event this information is protected by the Federal Confidentiality of Alcohol and Drug Abuse Patient Records regulations: The Federal rules restrict any use of the information to criminally investigate or prosecute any alcohol or drug abuse patient.[facility] [place] CampusIn the event this information is protected by the Federal Confidentiality of Alcohol and Drug Abuse Patient Records regulations: The Federal rules restrict any use of the information to criminally investigate or prosecute any alcohol or drug abuse patient.[facility] [place] CampusIn the event this information is protected by the Federal Confidentiality of Alcohol and Drug Abuse Patient Records regulations: The Federal rules restrict any use of the information to criminally investigate or prosecute any alcohol or drug abuse patient.[facility] [place] CampusIn the event this information is protected by the Federal Confidentiality of Alcohol and Drug Abuse Patient Records regulations: The Federal rules restrict any use of the information to criminally investigate or prosecute any alcohol or drug abuse patient.[facility] [place] CampusIn the event this information is protected by the Federal Confidentiality of Alcohol and Drug Abuse Patient Records regulations: The Federal rules restrict any use of the information to criminally investigate or prosecute any alcohol or drug abuse patient.[facility] [place] CampusIn the event this information is protected by the Federal Confidentiality of Alcohol and Drug Abuse Patient Records regulations: The Federal rules restrict any use of the information to criminally investigate or prosecute any alcohol or drug abuse patient.[facility] [place] CampusIn the event this information is protected by the Federal Confidentiality of Alcohol and Drug Abuse Patient Records regulations: The Federal rules restrict any use of the information to criminally investigate or prosecute any alcohol or drug abuse patient.[facility] [place] CampusIn the event this information is protected by the Federal Confidentiality of Alcohol and Drug Abuse Patient Records regulations: The Federal rules restrict any use of the information to criminally investigate or prosecute any alcohol or drug abuse patient.[facility] [place] CampusIn the event this information is protected by the Federal Confidentiality of Alcohol and Drug Abuse Patient Records regulations: The Federal rules restrict any use of the information to criminally investigate or prosecute any alcohol or drug abuse patient.[facility] [place] CampusIn the event this information is protected by the Federal Confidentiality of Alcohol and Drug Abuse Patient Records regulations: The Federal rules restrict any use of the information to criminally investigate or prosecute any alcohol or drug abuse patient.[facility] [place] CampusIn the event this information is protected by the Federal Confidentiality of Alcohol and Drug Abuse Patient Records regulations: The Federal rules restrict any use of the information to criminally investigate or prosecute any alcohol or drug abuse patient.[facility] [place] CampusIn the event this information is protected by the Federal Confidentiality of Alcohol and Drug Abuse Patient Records regulations: The Federal rules restrict any use of the information to criminally investigate or prosecute any alcohol or drug abuse patient.[facility] [place] CampusIn the event this information is protected by the Federal Confidentiality of Alcohol and Drug Abuse Patient Records regulations: The Federal rules restrict any use of the information to criminally investigate or prosecute any alcohol or drug abuse patient.[facility] [place] CampusIn the event this information is protected by the Federal Confidentiality of Alcohol and Drug Abuse Patient Records regulations: The Federal rules restrict any use of the information to criminally investigate or prosecute any alcohol or drug abuse patient.[facility] [place] CampusIn the event this information is protected by the Federal Confidentiality of Alcohol and Drug Abuse Patient Records regulations: The Federal rules restrict any use of the information to criminally investigate or prosecute any alcohol or drug abuse patient.[facility] [place] CampusIn the event this information is protected by the Federal Confidentiality of Alcohol and Drug Abuse Patient Records regulations: The Federal rules restrict any use of the information to criminally investigate or prosecute any alcohol or drug abuse patient.[facility] [place] CampusIn the event this information is protected by the Federal Confidentiality of Alcohol and Drug Abuse Patient Records regulations: The Federal rules restrict any use of the information to criminally investigate or prosecute any alcohol or drug abuse patient.[facility] [place] CampusIn the event this information is protected by the Federal Confidentiality of Alcohol and Drug Abuse Patient Records regulations: The Federal rules restrict any use of the information to criminally investigate or prosecute any alcohol or drug abuse patient.[facility] [place] CampusIn the event this information is protected by the Federal Confidentiality of Alcohol and Drug Abuse Patient Records regulations: The Federal rules restrict any use of the information to criminally investigate or prosecute any alcohol or drug abuse patient.[facility] [place] CampusIn the event this information is protected by the Federal Confidentiality of Alcohol and Drug Abuse Patient Records regulations: The Federal rules restrict any use of the information to criminally investigate or prosecute any alcohol or drug abuse patient.[facility] [place] CampusIn the event this information is protected by the Federal Confidentiality of Alcohol and Drug Abuse Patient Records regulations: The Federal rules restrict any use of the information to criminally investigate or prosecute any alcohol or drug abuse patient.[facility] [place] CampusIn the event this information is protected by the Federal Confidentiality of Alcohol and Drug Abuse Patient Records regulations: The Federal rules restrict any use of the information to criminally investigate or prosecute any alcohol or drug abuse patient.[facility] [place] CampusIn the event this information is protected by the Federal Confidentiality of Alcohol and Drug Abuse Patient Records regulations: The Federal rules restrict any use of the information to criminally investigate or prosecute any alcohol or drug abuse patient.[facility] [place] CampusIn the event this information is protected by the Federal Confidentiality of Alcohol and Drug Abuse Patient Records regulations: The Federal rules restrict any use of the information to criminally investigate or prosecute any alcohol or drug abuse patient.[facility] [place] CampusIn the event this information is protected by the Federal Confidentiality of Alcohol and Drug Abuse Patient Records regulations: The Federal rules restrict any use of the information to criminally investigate or prosecute any alcohol or drug abuse patient.[facility] [place] CampusIn the event this information is protected by the Federal Confidentiality of Alcohol and Drug Abuse Patient Records regulations: The Federal rules restrict any use of the information to criminally investigate or prosecute any alcohol or drug abuse patient.[facility] [place] CampusIn the event this information is protected by the Federal Confidentiality of Alcohol and Drug Abuse Patient Records regulations: The Federal rules restrict any use of the information to criminally investigate or prosecute any alcohol or drug abuse patient.[facility] [place] CampusIn the event this information is protected by the Federal Confidentiality of Alcohol and Drug Abuse Patient Records regulations: The Federal rules restrict any use of the information to criminally investigate or prosecute any alcohol or drug abuse patient.[facility] [place] CampusIn the event this information is protected by the Federal Confidentiality of Alcohol and Drug Abuse Patient Records regulations: The Federal rules restrict any use of the information to criminally investigate or prosecute any alcohol or drug abuse patient.[facility] [place] CampusIn the event this information is protected by the Federal Confidentiality of Alcohol and Drug Abuse Patient Records regulations: The Federal rules restrict any use of the information to criminally investigate or prosecute any alcohol or drug abuse patient.[facility] [place] CampusIn the event this information is protected by the Federal Confidentiality of Alcohol and Drug Abuse Patient Records regulations: The Federal rules restrict any use of the information to criminally investigate or prosecute any alcohol or drug abuse patient.[facility] [place] CampusIn the event this information is protected by the Federal Confidentiality of Alcohol and Drug Abuse Patient Records regulations: The Federal rules restrict any use of the information to criminally investigate or prosecute any alcohol or drug abuse patient.[facility] [place] [facility] Reason for Visit (unrecogniz ed section and [...] 08/10/2022 Reason Comments Follow Up Seen at [facility] on for stroke, was released Wednesday Reason Comments [...] US Specialty Diagnoses / Procedures Referred By [facility] Referred To Contact US IMAGING Diagnoses Thyroid nodule Procedures US THYROID/PARATHYROID US SOFT TISSUE HEAD & NECK REAL TIME IMGE DOCM Astrid Muse, CONDUIT HELPER.ADAPTIVE PHYSICAL EDUCATION TEACHER [address] [place] [address] [place] [address] Referral ID Status Reason Start Date Expiration Date V isits Requested Visits Authorized [id number] Closed Auto-Generate d Referral 02/02/2024 03/03/2025 1 1 Reason Onset Date Comments Refill Request 02/14/2024 Reason Comments Recheck 6 week follow up Reason Comments Consult Thyroid Nodule Specialty Diagnoses / Procedures Referred By [facility] Referred To Contact General Surgery Diagnoses Thyroid nodule Procedures CONSULT TO GENERAL SURGERY OFFICE/OUTPATIENT [facility] 60 MINUTES Astrid Muse, CONDUIT HELPER.ADAPTIVE PHYSICAL EDUCATION TEACHER [address] [place] [address] Referral ID Status Reason Start Date Expiration Date V isits Requested Visits Authorized [id number] Closed PCP Requested Referral 02/10/2024 02/09/2025 1 1 Reason Comments Procedure Left thyroid Reason Comments Recheck 6 week follow up UTI and medication Reason Comments Acute Visit Urinary freq, discom fort when urinating, left flank pain, pelvic cramping x couple days Reason Onset Date Comments Refill Request 08/16/2024 Reason Comments F/U 3 Month Reason Comments Medicare Wellness Exam Medicare Wellness Care Teams (unrecognized sec tion and content) Electric Cutter Operator Relationship Specialty Start Date End Date Jones Velasquez MD [address] [place] [address] PCP - General Internal Medicine 02/24/16 Electric Cutter Operator Relationship Specialty Start Date End Date Jones Velasquez MD [address] [place] [address] PCP - General Internal Medicine 02/24/16 Electric Cutter Operator Relationship Specialty Start Date End Date Jones Velasquez MD [address] [place] [address] PCP - General Internal Medicine 02/24/16 Electric Cutter Operator Relationship Specialty Start Date End Date Jones Velaqsuez MD [address] [place] [address] PCP - General Internal Medicine 02/24/16 Electric Cutter Operator Relationship Specialty Start Date End Date Jones Velasquez MD [address] [place] [address] PCP - General Internal Medicine 02/24/16 Electric Cutter Operator Relationship Specialty Start Date End Date Jones Velasquez MD [address] [place] [address] PCP - General Internal Medicine 02/24/16 Electric Cutter Operator Relationship Specialty Start Date End Date Jones Velasquez MD [address] [place] [address] PCP - General Internal Medicine 02/24/16 Electric Cutter Operator Relationship Specialty Start Date End Date Jones Velasquez MD [address] [place] [address] PCP - General Internal Medicine 02/24/16 Electric Cutter Operator Relationship Specialty Start Date End Date Jones Velasquez MD [address] [place] [address] PCP - General Internal Medicine 02/24/16 Electric Cutter Operator Relationship Specialty Start Date End Date Jones Velasquez MD [address] [facility] [address] PCP - General Internal Medicine 02/24/16 Electric Cutter Operator Relationship Specialty Start Date End Date Jones Velasquez MD [address] [facility] [address] PCP - General Internal Medicine 02/24/16 Electric Cutter Operator Relationship Specialty Start Date End Date Jones Velasquez MD [address] [facility] [address] PCP - General Internal Medicine 02/24/16 Electric Cutter Operator Relationship Specialty Start Date End Date Jones Velasquez MD [address] [facility] [place] [address] PCP - General Internal Medicine 02/24/16 Electric Cutter Operator Relationship Specialty Start Date End Date Jones Velasquez MD [address] [facility] [place] [address] PCP - General Internal Medicine 02/24/16 Team [...] Jones Velasquez MD Primary Care Provider Active SUZIE MOONC Attending Provider, Referring Provide r Active Team [...] Dr. Bea Gregg MD Attending Provider Active Electric Cutter Operator Relationship Specialty Start Date End Date Jones Velasquez MD [address] [place] [address] PCP - General Internal Medicine 02/24/16 Electric Cutter Operator Relationship Specialty Start Date End Date Jones Velasquez MD [address] [place] [address] PCP - General Internal Medicine 02/24/16 Electric Cutter Operator Relationship Specialty Start Date End Date Jones Velasquez MD [address] [place] [address] PCP - General Internal Medicine 02/24/16 Team [...] Velasquez MD Primary Care Provider Active ASTRID OLDER , SHEEP SORTER-C Attending Provider, Referring Provide r Active Electric Cutter Operator Relationship Specialty Start Date End Date Jones Velasquez MD [address] [place] [address] PCP - General Internal Medicine 02/24/16 Electric Cutter Operator Relationship Specialty Start Date End Date Jones Velasquez MD [address] [place] [address] PCP - General Internal Medicine 02/24/16 Electric Cutter Operator Relationship Specialty Start Date End Date Jones Velasquez MD [address] [place] [address] PCP - General Internal Medicine 02/24/16 Electric Cutter Operator Relationship Specialty Start Date End Date Jones Velasquez MD [address] [place] [address] PCP - General Internal Medicine 02/24/16 Electric Cutter Operator Relationship Specialty Start Date End Date Jones Velasquez MD [address] [place] [address] PCP - General Internal Medicine 02/24/16 Electric Cutter Operator Relationship Specialty Start Date End Date Jones Velasquez MD [address] [place] [address] PCP - General Internal Medicine 02/24/16 Electric Cutter Operator Relationship Specialty Start Date End Date Jones Velasquez MD [address] [place] [address] PCP - General Internal Medicine 02/24/16 Electric Cutter Operator Relationship Specialty Start Date End Date Jones Velasquez MD [address] [place] [address] PCP - General Internal Medicine 02/24/16 Electric Cutter Operator Relationship Specialty Start Date End Date Jones Velasquez MD [address] [place] [address] PCP - General Internal Medicine 02/24/16 Electric Cutter Operator Relationship Specialty Start Date End Date Jones Velasquez MD [address] [place] [address] PCP - General Internal Medicine 02/24/16 Electric Cutter Operator Relationship Specialty Start Date End Date Jones Velasquez MD [address] [place] [address] PCP - General Internal Medicine 02/24/16 Electric Cutter Operator Relationship Specialty Start Date End Date Jones Velasquez MD [address] [place] [address] PCP - General Internal Medicine 02/24/16 Electric Cutter Operator Relationship Specialty Start Date End Date Jones Velasquez MD [address] [place] [address] PCP - General Internal Medicine 02/24/16 Electric Cutter Operator Relationship Specialty Start Date End Date Jones Velasquez MD [address] [place] [address] PCP - General Internal Medicine 02/24/16 Electric Cutter Operator Relationship Specialty Start Date End Date Jones Velasquez MD [address] [place] [address] PCP - General Internal Medicine 02/24/16 Electric Cutter Operator Relationship Specialty Start Date End Date Jones Velasquez MD [address] [place] [address] PCP - General Internal Medicine 02/24/16 Electric Cutter Operator Relationship Specialty Start Date End Date Jones Velasquez MD [address] [place] [address] PCP - General Internal Medicine 02/24/16 Renetta Christie PA-C [address] [place] [id number] Customer Account Representative Family Medicine 02/13/24 Astrid Muse APRN.ADAPTIVE PHYSICAL EDUCATION TEACHER [address] [place] [address] Customer Account Representative Internal Medicine 02/13/24 Justine Castillo PA-C [address] [place] [address] Customer Account Representative Family Medicine 02/13/24 Electric Cutter Operator Relationship Specialty Start Date End Date Jones Velasquez MD [address] [place] [address] PCP - General Internal Medicine 02/24/16 Renetta Christie PA-C [address] [place] [address] Customer Account Representative Family Medicine 02/13/24 Astrid Muse APRN.ADAPTIVE PHYSICAL EDUCATION TEACHER [address] [place] [address] Customer Account Representative Internal Medicine 02/13/24 Justine Castillo PA-C [address] [place] [address] Customer Account Representative Family Medicine 02/13/24 Electric Cutter Operator Relationship Specialty Start Date End Date Jones Velasquez MD [address] [place] [address] PCP - General Internal Medicine 02/24/16 Renetta Christie PA-C [address] [place] [address] Customer Account Representative Family Medicine 02/13/24 Astrid Muse APRN.ADAPTIVE PHYSICAL EDUCATION TEACHER [address] [place] [address] Customer Account Representative Internal Medicine 02/13/24 Justine Castillo PA-C [address] [place] [address] Customer Account Representative Family Medicine 02/13/24 Electric Cutter Operator Relationship Specialty Start Date End Date Jones Velasquez MD [address] [place] [address] PCP - General Internal Medicine 02/24/16 Renetta Christie PA-C [address] [place] [address] Customer Account Representative Family Medicine 02/13/24 Astrid Muse, FERCHO.ADAPTIVE PHYSICAL EDUCATION TEACHER [address] [place] [address] Customer Account Representative Internal Medicine 02/13/24 Justine Castillo PA-C [address] [place] [address] Customer Account Representative Family Medicine 02/13/24 Electric Cutter Operator Relationship Specialty Start Date End Date Jones Velasquez MD [address] [place] [address] PCP - General Internal Medicine 02/24/16 Renetta Christie PA-C [address] [place] [address] Customer Account Representative Family Medicine 02/13/24 Astrid Muse APRN.ADAPTIVE PHYSICAL EDUCATION TEACHER [address] [place] [address] Customer Account Representative Internal Medicine 02/13/24 Justine Castillo PA-C [address] [place] [address] Customer Account Representative Family Medicine 02/13/24 Electric Cutter Operator Relationship Specialty Start Date End Date Jones Velasquez MD [address] [place] [address] PCP - General Internal Medicine 02/24/16 Astrid Muse APRN.ADAPTIVE PHYSICAL EDUCATION TEACHER [address] [place] [address] Customer Account Representative Internal Medicine 02/13/24 Electric Cutter Operator Relationship Specialty Start Date End Date Jones Velasquez MD [address] [place] [address] PCP - General Internal Medicine 02/24/16 Astrid Muse APRN.ADAPTIVE PHYSICAL EDUCATION TEACHER [address] [place] [address] Customer Account Representative Internal Medicine 02/13/24 Electric Cutter Operator Relationship Specialty Start Date End Date Jones Velasquez MD [address] [place] [address] PCP - General Internal Medicine 02/24/16 Astrid Muse APRN.ADAPTIVE PHYSICAL EDUCATION TEACHER [address] [place], [place] [address] Customer Account Representative Internal Medicine 02/13/24 Electric Cutter Operator Relationship Specialty Start Date End Date Jones Velasquez MD [address] [place], [place] [id number] PCP - General Internal Medicine 02/24/16 Astrid Muse APRN.ADAPTIVE PHYSICAL EDUCATION TEACHER [address] [place], [place] [id number] Customer Account Representative Internal Medicine 02/13/24 Team Status: Active Member Role/Relationship Status Dates Dr. Jones Velasquez MD Family Provider Active ASTRID MUSE , SHEEP SORTER-C Primary Care Provider Active Team Status: Inactive Member Role/Relationship Status Dates ASTRID MUSE , SHEEP SORTER-C Primary Care Provider Active St art: September 06, 2024 End: September 06, 2024 ASTRID MUSE , SHEEP SORTER-C Referring Provider Active Start : September 06, 2024 End: September 06, 2024 Sho Marinelli PA, PA Attending Provider Active Start: September 06, 2024 End: September 06, 2024 Team Status: Active Member Role/Relationship Status Dates ASTRID MUSE , SHEEP SORTER-C Primary Care Provider Active Team Status: Inactive Member Role/Relationship Status Dates ASTRID MUSE , SHEEP SORTER-C Primary Care Provider Active St art: September 08, 2024 End: September 08, 2024 Dr. Karl Wall , DO Emergency Provider Active Start: September 08, 2024 End: September 08, 2024 Electric Cutter Operator Relationship Specialty Start Date End Date Jones Velasquez MD [address] [place], [place] [address] PCP - General Internal Medicine 02/24/16 Astrid Muse APRN.ADAPTIVE PHYSICAL EDUCATION TEACHER [address] [place], [place] [phone] Customer Account Representative Internal Medicine 02/13/24 Electric Cutter Operator Relationship Specialty Start Date End Date Jones Velasquez MD [address] [place], [place] [address] PCP - General Internal Medicine 02/24/16 Astrid Muse APRN.ADAPTIVE PHYSICAL EDUCATION TEACHER [address] [place], [place] [phone] Customer Account Representative Internal Medicine 02/13/24 Goals (unrecognized section and content) Goals may be documented in a n alternate section No data available for this sectionGoals may be documented in an alternate sectionGoals may be documented in an alternate [...] section and content) DATE CREATED AUTHOR 01/29/2024 [facility] DATE CREATED AUTHOR AUTHOR'S ORGANIZ ATION 09/14/2024 [facility] DATE CREATED AUTHOR AUTHOR'S ORGANIZ ATION 09/17/2024 [facility] FOR RECORDS PERTAINING TO PATIENTS WHO [...] BE BASED ON THE PRIMARY CLINICAL RECORDS. [facility] [facility]. provides no warranty or guarantee of the accuracy or completeness of information in this document.
== END | disposition home or self-care (01) ==
LOC: RAD 14:59
PROVIDERS: PCP Nurse Practitioner; Referring Provider Urology; Visit Provider Urology
DX: N20.1 Calculus of ureter (principal)
CPT/HCPCS: 74018

== ENCOUNTER 2024-10-18 14:15 | Outpatient (CLI) | payer MEDICARE, SELFPAY ==
--- NOTE | 2024-10-13 10:30 | CALC_PTH ---
PATIENT: RAMÓN CANADA [place] [facility] [place][id number] AGE/SX: 79/F ROOM: RE10/18/[address]: Dr. Yeyo Smith MD : 1945 BED: DIS: 10/18/2024 SPEC #: [id number] RECD: 10/16/24 15:47 STATUS: KATHRYN REBryon #: [id number] YENY: 10/13/24 10:[address]: Yeyo Smith DEPT: SURGICAL PATHOLOGY RECD BY: Jai Miller ENTERED: 10/17/24 09:33 SP TYPE: Calculi OTHR DR: ALEXA BLUE, TRUST MAIL CLERK-C Tissues: A - CALCULI Procedures: Surgery Specimen Level I Comments: Dr. Oliva made a corrected report. Attempted to call office on 10/31/24 at 1030am and was sent to voicemail. Left a voicemail and explained the situation. Also faxed a new copy of report to office. HEADER OPERATION: Left ureteroscopy with laser stone, left ureteral stent placement PRE-OP DIAGNOSIS: Calculus of ureter, left TISSUE SUBMITTED: A- Left kidney stones GROSS DIAGNOSIS A. Kidney, left, stones, ureteroscopy: - Urolithiasis (gross examination only) - see note and Comment. Note: This is a corrected report. Dr Smith (office staff) was informed 10/31/24 by the laboratory (Jai Miller). COMMENT Since the specimen was received in formalin (instead of fresh), chemical analysis cannot be performed. GROSS DESCRIPTION A. Received in formalin labeled with the patient's name and date of . Designated as left kidney stones are 2 irregular brown calculi, 0.3 cm each. No sections are submitted. The specimen is for gross examination only. [place] 10/17/2024 CPT:40927
--- NOTE | 2024-10-13 10:30 | CALC_PTH ---
PATIENT: RAMÓN CANADA LOC: [facility] [place] U#:[id number] AGE/SX: 79/F ROOM: RE10/18/[address]: Dr. Yeyo Smith MD : 1945 BED: DIS: 10/18/2024 SPEC #: [id number] RECD: 10/16/24 15:47 STATUS: KATHRYN GURROLA #: [id number] YENY: 10/13/24 10:[address]: Yeyo Smith DEPT: SURGICAL PATHOLOGY RECD BY: Jai Miller ENTERED: 10/17/24 09:33 SP TYPE: Calculi OTHR DR: ALEXA BLUE, GUN BARREL FINISHER-C Tissues: A - CALCULI Procedures: Surgery Specimen Level I HEADER OPERATION: Left ureteroscopy with laser stone, left ureteral stent placement PRE-OP DIAGNOSIS: Calculus of ureter, left TISSUE SUBMITTED: A- Left kidney stones GROSS DIAGNOSIS A. Kidney, left, stones, ureteroscopy: - Urolithiasis (gross examination only). - Chemical analysis pending, to be reported separately GROSS DESCRIPTION A. Received in formalin labeled with the patient's name and date of . Designated as left kidney stones are 2 irregular brown calculi, 0.3 cm each. No sections are submitted. The specimen is for gross examination only. IN 10/17/2024 CPT:45968
== END 2024-10-18 19:00 | disposition home or self-care (01) ==
LOC: SDC 01-10 10:24
PROVIDERS: PCP Nurse Practitioner; Referring Provider Urology; Visit Provider Urology
DX: N20.0 Calculus of kidney (principal)
CPT/HCPCS: 88300